=== PATIENT | female | born 1950 | race Caucasian/White ===

== ENCOUNTER → 2016-06-07 | Outpatient (CLI) | payer OTHER ==
[~2016-06-07] MED LIST: AMB10 PO; ATOR10TA88 PO; BENZ1TAB2 PO; BENZ2TAB6 PO; CHOL4POW12 PO; CHOLPOW PO; CLON0.5T3 PO; DPRSCR15 TOP; ERGO1CAP35 PO; ERGO500037 PO; GEMF600T3 PO; IPRA1AER2 INH; LITH1TAB PO; LTHSR/300 PO; MELA3TAB PO; MULT-614 PO; OMEG10007 PO; OMEP40CA41 PO; PRLSR20 PO; PROM25TA9 PO; RSP3 PO; SERT1TAB68 PO; SERT1TAB71 PO; SNG10 PO; THIO10CA PO; THIO2CAP2 PO; THIO5CAP2 PO; TRAM-10 PO; VITA400C15 PO; VITA400C3 PO; ZOLP5TAB6 PO; [UNRECOGNIZED DRUG - OTHER]
[2016-06-07 09:50] LABS: BASO % 0.5 %; BASO ABS # 0.03 K/uL (0-0.2); COMPLETE YES; EOS % 2.9 %; HEMATOCRIT 29.8 % (37-47); IG% 0.2 %; LYMPH % 8.8 %; LYMPH ABS # 0.49 K/uL (1.2-3.4); MEAN CELL VOLUME 77.6 fL (80-100); MEAN CORPUSCULAR HEMOGLOBIN 24.5 pg (25-34); MEAN CORPUSCULAR HGB CONC 31.5 g/dl (32-36); MEAN PLATELET VOLUME 9.6 fL (7.4-10.4); MONO % 8.2 %; NEUT % 79.4 %; PLATELET COUNT 263 K/uL (130-400); RED BLOOD COUNT 3.84 M/uL (4.2-5.4)
[2016-06-07 10:02] LABS: BLOOD UREA NITROGEN 14 mg/dl (7-18); BUN/CREATININE RATIO 11.8 (10-20); CALCIUM 9.3 mg/dl (8.5-10.1); CARBON DIOXIDE 26 mmol/L (21-32); CHLORIDE 106 mmol/L (98-107); GLUCOSE 123 mg/dl (70-99); POTASSIUM 4.2 mmol/L (3.5-5.1); SODIUM 140 mmol/L (136-145)
[2016-06-07 10:06] LABS: FERRITIN 24.1 ng/ml (8.0-388.0); PHOSPHORUS 3.9 mg/dl (2.5-4.9); TOTAL IRON BINDING CAPACITY 373 mcg/dl (250-450)
[2016-06-07 11:23] LABS: URINE APPEARANCE CLEAR (CLEAR); URINE BILIRUBIN NEG (NEG); URINE COLOR YELLOW; URINE EPITHELIAL CELL AUTO 0-5 /lpf (0-5); URINE NITRITE NEG (NEG); URINE SPECIFIC GRAVITY 1.001 (1.000-1.030); UROBILINOGEN NEG (NEG); ZZUR CULT IF INDIC CLEAN CATCH NO
[2016-06-07 11:28] LABS: MANUAL MICROSCOPIC REQUIRED? NO; REVIEW REQ? NO
== END | disposition home or self-care (01) ==
LOC: C.LAB 08:25
PROVIDERS: ATTEND Internal Medicine Nephrology
DX: N18.3 Chronic kidney disease, stage 3 (moderate) (principal); D64.9 Anemia, unspecified

== ENCOUNTER → 2016-08-02 | Outpatient (CLI) | payer OTHER ==
[~2016-08-02] MED LIST changes: +ATOR10TA82 PO; -ATOR10TA88 PO; +CZR25 PO; -GEMF600T3 PO; +HYZ/10015 PO
[2016-08-02 10:22] LABS: ALT/SGPT 79 U/L (12-78); AST/SGOT 38 U/L (15-37); BLOOD UREA NITROGEN 18 mg/dl (7-18); BUN/CREATININE RATIO 17.9 (10-20); CALCIUM 10.5 mg/dl (8.5-10.1); CARBON DIOXIDE 28 mmol/L (21-32); CHLORIDE 111 mmol/L (98-107); CHOLESTEROL 116 mg/dl (0-200); CREATININE 0.99 mg/dl (0.60-1.20); GLUCOSE 136 mg/dl (70-99); POTASSIUM 4.3 mmol/L (3.5-5.1); SODIUM 145 mmol/L (136-145)
[2016-08-02 10:24] LABS: ALB/GLOB RATIO 0.7 (0.9-2); ALKALINE PHOSPHATASE 219 U/L (45-117); CHOLESTEROL/HDL RATIO 2.5; HDL CHOLESTEROL 46 mg/dl; LDL CHOLESTEROL CALCULATED 32 mg/dl; TRIGLYCERIDES 188 mg/dl (0-150); VERY LOW DENSITY LIPOPROT CALC 38 mg/dl
[2016-08-02 10:53] LABS: ESTIMATED AVERAGE GLUCOSE 108 mg/dl; HA1C FLAG Normal (Normal)
== END | disposition home or self-care (01) ==
LOC: C.LAB 08:07
PROVIDERS: ATTEND Nurse Practitioner Family
DX: Z79.899 Other long term (current) drug therapy (principal); E11.9 Type 2 diabetes mellitus without complications; E78.00 Pure hypercholesterolemia, unspecified

== ENCOUNTER → 2016-08-30 | Day surgery (SDC) | payer OTHER ==
[2016-08-20 13:21] VITALS: Ht 152.4 cm; Wt 58.2 kg
[~2016-08-30] VITALS: Ht 152.4 cm; Wt 58.2 kg
[~2016-08-30] MED LIST changes: -CHOLPOW PO; +LIDOCAINE HCL 2% 2 ML VIAL (20MG/ML) ONE; +ONDANSETRON INJ 2 MG/ML 2 ML VIAL ONE; +PROPOFOL IV EMULSION 10 MG/ML 20 ML VIAL IV ONE; +SODIUM CHLORIDE 0.9% 500ML 500 ML IV ONE; -[UNRECOGNIZED DRUG - OTHER]
[2016-08-30 10:10] VITALS: TEMP 37
--- NOTE | 2016-08-30 10:31 | Endo History and Physical ---
History & Physical Date of Service: August 30, 2016. Chief Complaint: Hx polyps Referring Physician: Santos Galeano, History of Present Illness 66 yo CF who presents for screening colonoscopy. Past Medical History Diabetes, Arthritis, Reflux, COPD, Thyroid Disease Past Surgical History Hx Cardiac Surgery: No Hx Internal Defibrillator: No Hx Pacemaker: No Hx Abdominal Surgery: No Hx of Implantable Prosthesis: No Hx Post-Op Nausea and Vomiting: No Hx Cancer Surgery: No Hx Thoracic Surgery: No Hx Orthopedic: No Hx Urinary Tract Surgery: No Family History Colon CA Social History Smoking Status: Former Smoker Hx Substance Use: Yes (SEE MED REC) Hx Alcohol Use: No Allergies Coded Allergies: Aspirin (Verified Allergy, Unknown, UNKNOWN REACTION, 08/20/16) Clozapine (Verified Allergy, Unknown, TOXIC REACTION, 08/20/16) Codeine (Verified Allergy, Unknown, UNKNOWN REACTION, 08/20/16) Ibuprofen (Verified Allergy, Unknown, UNKNOWN REACTION, 08/20/16) Lurasidone (Verified Allergy, Unknown, TOXIC REACTION, 08/20/16) Penicillins (Verified Allergy, Unknown, UNKNOWN REACTION, 08/20/16) AMOXIL Sulfa Antibiotics (Verified Allergy, Unknown, UNKNOWN REACTION, 08/20/16) Current Medications Reported Home Medications Medications Dose Route/Sig Max Daily Dose Days Date Category Dose Instructions Prilosec (Omeprazole) 20 Mg Capcr 40 Mg PO BID 08/20/16 Reported Combivent Respimat (Ipratropium-Albuterol) 1 Aer Aer 1 Puffs INH QID PRN 08/20/16 Reported Questran (Cholestyramine) 4 Gm/Dose Pow 1 Dose PO AFTERNOON 08/20/16 Reported Betamethasone Dipropionat (Betamethasone Dip) 45 Appln/15 Gm Cr 1 Appln TOP BID PRN 08/20/16 Reported Lipitor (Atorvastatin Calcium) 10 Mg Tab 1 Tab PO HS 06/15/16 Reported Zoloft (Sertraline Hcl) 100 Mg Tab 100 Mg PO QAM 02/11/15 Reported Zoloft (Sertraline Hcl) 50 Mg Tab 50 Mg PO QAM 02/11/15 Reported Thiothixene 2 Mg Cap 2 Mg PO HS 02/11/15 Reported Thiothixene 10 Mg Cap 20 Mg PO HS 02/11/15 Reported Centrum Silver Ultra [place] (Multiple Vitamins W/ Minerals) 1 Tab Tab 1 Tab PO QAM 02/11/15 Reported Klonopin (Clonazepam) 0.5 Mg Tab 0.75 Mg PO HS 06/10/14 Reported 1 1/2 TABLETS DAILY. Risperidone 3 Mg Tab 1.5 Mg PO HS 03/17/14 Reported Lithobid Ext Rel ([place] Carbonate) 450 Mg Tab 450 Mg PO QPM 09/14/13 Reported Melatonin 3 Mg Tab 3 Mg PO HS 02/09/13 Reported Ambien * (Zolpidem Tartrate) 10 Mg Tab 5 Mg PO HS 02/19/11 Reported Vitamin D Cap (Ergocalciferol) 50,000 Interunit Cap 1 Tab PO WK 02/03/10 Reported ON MONDAYS [place] Carbonate 300 Mg Cap 300 Mg PO QAM 06/20/09 Reported Cogentin (Benztropine Mesylate) 2 Mg Tab 2 Mg PO BID 06/20/09 Reported Vitamin E (cu-Ubhsk-Qwkdbzcnda Acetate) 400 Inter.unit Cap 400 Inter.unit PO BID 07/21/08 Reported [place]-3 (Fish Oil) 1 Ea Cap 1 Cap PO BID 07/21/08 Reported Ultram (Tramadol HCl) 50 Mg Tab 2 Tabs PO BID 07/21/08 Reported Singulair * (Montelukast Sodium) 10 Mg Tab 10 Mg PO QAM 07/21/08 Reported Vital Signs Weight (Kilograms): 58.18 Height (Feet): 5 Height (Inches): 0 Date Time Temp Pulse Resp B/P Pulse Ox O2 Delivery O2 Flow Rate FiO2 08/30/16 10:10 37 78 20 160/74 94 Room Air Physical Exam General Appearance: WD/WN, no apparent distress Respiratory/Chest: Auscultation: breath sounds normal Cardiovascular: Heart Auscultation: RRR Abdomen: Bowel Sounds: normal Inspection & Palpation: soft, non-distended, no tenderness, guarding & rebound Assessment and Plan Assessment: 66 yo CF who presents for screening colonoscopy. Plan: Proceed with colonoscopy.
--- NOTE | 2016-08-30 12:08 | Discharge Instructions ---
Endoscopy Patient Instructions Date / Procedure(s) Performed August 30, 2016. Colonoscopy Allergy Information Coded Allergies: Aspirin (Verified Allergy, Unknown, UNKNOWN REACTION, 08/20/16) Clozapine (Verified Allergy, Unknown, TOXIC REACTION, 08/20/16) Codeine (Verified Allergy, Unknown, UNKNOWN REACTION, 08/20/16) Ibuprofen (Verified Allergy, Unknown, UNKNOWN REACTION, 08/20/16) Lurasidone (Verified Allergy, Unknown, TOXIC REACTION, 08/20/16) Penicillins (Verified Allergy, Unknown, UNKNOWN REACTION, 08/20/16) AMOXIL Sulfa Antibiotics (Verified Allergy, Unknown, UNKNOWN REACTION, 08/20/16) Discharge Date / Findings August 30, 2016. Colon polyps Internal hemorrhoids Medication Instructions OK to resume all medications today as prescribed Reported Home Medications Medications Dose Route/Sig Max Daily Dose Days Date Category Dose Instructions Prilosec (Omeprazole) 20 Mg Capcr 40 Mg PO BID 08/20/16 Reported Combivent Respimat (Ipratropium-Albuterol) 1 Aer Aer 1 Puffs INH QID PRN 08/20/16 Reported Questran (Cholestyramine) 4 Gm/Dose Pow 1 Dose PO AFTERNOON 08/20/16 Reported Betamethasone Dipropionat (Betamethasone Dip) 45 Appln/15 Gm Cr 1 Appln TOP BID PRN 08/20/16 Reported Lipitor (Atorvastatin Calcium) 10 Mg Tab 1 Tab PO HS 06/15/16 Reported Zoloft (Sertraline Hcl) 100 Mg Tab 100 Mg PO QAM 02/11/15 Reported Zoloft (Sertraline Hcl) 50 Mg Tab 50 Mg PO QAM 02/11/15 Reported Thiothixene 2 Mg Cap 2 Mg PO HS 02/11/15 Reported Thiothixene 10 Mg Cap 20 Mg PO HS 02/11/15 Reported Centrum Silver Ultra [place] (Multiple Vitamins W/ Minerals) 1 Tab Tab 1 Tab PO QAM 02/11/15 Reported Klonopin (Clonazepam) 0.5 Mg Tab 0.75 Mg PO HS 06/10/14 Reported 1 1/2 TABLETS DAILY. Risperidone 3 Mg Tab 1.5 Mg PO HS 03/17/14 Reported Lithobid Ext Rel ([place] Carbonate) 450 Mg Tab 450 Mg PO QPM 09/14/13 Reported Melatonin 3 Mg Tab 3 Mg PO HS 10/11/13 Reported Ambien * (Zolpidem Tartrate) 10 Mg Tab 5 Mg PO HS 02/19/11 Reported Vitamin D Cap (Ergocalciferol) 50,000 Interunit Cap 1 Tab PO WK 02/03/10 Reported ON MONDAYS [place] Carbonate 300 Mg Cap 300 Mg PO QAM 06/20/09 Reported Cogentin (Benztropine Mesylate) 2 Mg Tab 2 Mg PO BID 06/20/09 Reported Vitamin E (xc-Atutk-Xutabzyfbe Acetate) 400 Inter.unit Cap 400 Inter.unit PO BID 07/21/08 Reported [place]-3 (Fish Oil) 1 Ea Cap 1 Cap PO BID 07/21/08 Reported Ultram (Tramadol HCl) 50 Mg Tab 2 Tabs PO BID 07/21/08 Reported Singulair * (Montelukast Sodium) 10 Mg Tab 10 Mg PO QAM 07/21/08 Reported Provider Instructions Activity Restrictions - No exercising or heavy lifting for 24 hours. - Do not drink alcohol the day of the procedure. - Do not drive a car or operate machinery until the day after the procedure. - Do not make any important decisions or sign important papers in 24 hours after the procedure. Following Day: - Return to full activity which may include returning to work/school. Diet Start your diet with liquids and light foods (jello, soup, juice, toast). Then eat your usual diet if not nauseated. Treatment For Common After Affects For mild abdominal pain, bloating, or excessive gas: - Rest - Eat lightly - Lie on right side Follow-Up Information Follow-up with Santos Galeano, as scheduled Anesthesia Information What You Should Know You have had a procedure that required some medicine to reduce anxiety and discomfort. This treatment is called moderate sedation. After receiving the treatment, you may be sleepy, but you will be able to breathe on your own. The effects of the treatment may last for several hours. Follow these instructions along with Activity/Diet recommendations noted above: * Do NOT do anything where dizziness or clumsiness would be dangerous. * Rest quietly at home today, then you can be up and about tomorrow. * Have a responsible person stay with you the rest of today. * You may have had an I.V. today. If so, you may take the dressing off later today. Recommendations Call your doctor if: * Trouble breathing * Continuous vomiting for more than 24 hours * Temperature above 101 degrees * Severe abdominal pain or bloating * Pain not relieved by pain medicine ordered * There is increased drainage or redness from any incision * A large amount of rectal bleeding greater than 2-3 tablespoons. (If you had a polyp/s removed or have hemorrhoids, a small amount of blood - from the rectum is to be expected.) * You have any unanswered questions or concerns. IN THE EVENT OF A SERIOUS EMERGENCY, GO TO THE NEAREST EMERGENCY ROOM Your discharge instructions were prepared by provider Jese Reynolds. Patient Instructions Signature Page Brenda Medley Patient (or Guardian) Signature/Date: I have read and understand the instructions given to me by my caregivers. Caregiver/RN/Doctor Signature/Date: The above-named patient and/or guardian has received patient instructions on this date. + Original Patient Signature Page (only) stays with chart. Please make copy for patient.
[2016-08-30 12:39] VITALS: BP 135/75; PULSE 81; O2SAT 94
--- NOTE | 2016-08-30 12:43 | GI REPORT ---
Procedure Date: 08/30/2016 10:05 AM Procedure: Colonoscopy Indications: High risk colon cancer surveillance: Personal history of colonic polyps Medicines: Monitored Anesthesia Care Complications: No immediate complications. Estimated Blood Loss: Estimated blood loss: none. Procedure: Pre-Anesthesia Assessment: - Prior to the procedure, a History and Physical was performed, and patient medications and allergies were reviewed. The patient's tolerance of previous anesthesia was also reviewed. The risks and benefits of the procedure and the sedation options and risks were discussed with the patient. All questions were answered, and informed consent was obtained. Prior Anticoagulants: The patient has taken no previous anticoagulant or antiplatelet agents. ASA Grade Assessment: III - A patient with severe systemic disease. After reviewing the risks and benefits, the patient was deemed in satisfactory condition to undergo the procedure. After I obtained informed consent, the scope was passed under direct vision. Throughout the procedure, the patient's blood pressure, pulse, and oxygen saturations were monitored continuously. The scope was introduced through the anus and advanced to the terminal ileum. The colonoscopy was performed without difficulty. The patient tolerated the procedure well. The quality of the bowel preparation was good. The terminal ileum, ileocecal valve, appendiceal orifice, and rectum were photographed. Findings: Two pedunculated and sessile polyps were found in the ascending colon. The polyps were 5 to 8 mm in size. These polyps were removed with a hot snare. Resection and retrieval were complete. To prevent bleeding after the polypectomy, two hemostatic clips were successfully placed (MR conditional). There was no bleeding at the end of the procedure. Three sessile polyps were found in the rectum and in the transverse colon. The polyps were 5 to 9 mm in size. These polyps were removed with a hot snare. Resection and retrieval were complete. A 17 mm polyp was found in the transverse colon. The polyp was sessile. The polyp was removed with a saline injection-lift technique using a hot snare. Resection and retrieval were complete. To prevent bleeding after the polypectomy, five hemostatic clips were successfully placed (MR conditional). There was no bleeding at the end of the procedure. Non-bleeding internal hemorrhoids were found during retroflexion. The hemorrhoids were small. Impression: - Two 5 to 8 mm polyps in the ascending colon, removed with a hot snare. Resected and retrieved. Clips (MR conditional) were placed. - Three 5 to 9 mm polyps in the rectum and in the transverse colon, removed with a hot snare. Resected and retrieved. - One 17 mm polyp in the transverse colon, removed using injection-lift and a hot snare. Resected and retrieved. Clips (MR conditional) were placed. - Non-bleeding internal hemorrhoids. Recommendation: - Resume previous diet. - Continue present medications. - Repeat colonoscopy for surveillance based on pathology results. - Return to primary care physician as previously scheduled. Jese Reynolds, DO 08/30/2016 12:41:55 PM This report has been signed electronically. Note Initiated On: 08/30/2016 10:05 AM I attest to the content of the Intraoperative Record and orders documented therein, exceptions below
--- NOTE | 2016-08-30 12:47 | Anesthesiology Progress Note ---
Anesthesia Post Op Note Date & Time August 30, 2016 at 12:46 Vital Signs Pain Intensity: 0 Vital Signs Past 12 Hours Date Time Temp Pulse Resp B/P Pulse Ox O2 Delivery O2 Flow Rate FiO2 08/30/16 12:39 81 18 135/75 94 Room Air 08/30/16 12:24 86 18 134/64 93 Room Air 08/30/16 12:09 90 18 130/63 95 Room Air 08/30/16 10:10 37 78 20 160/74 94 Room Air Notes Mental Status: alert / awake / arousable, participated in evaluation Pt Amnestic to Procedure: Yes Nausea / Vomiting: adequately controlled Pain: adequately controlled Airway Patency, RR, SpO2: stable & adequate BP & HR: stable & adequate Hydration State: stable & adequate Anesthetic Complications: no major complications apparent
== END | disposition home or self-care (01) ==
LOC: C.GI 09:38
PROVIDERS: ATTEND Internal Medicine
DX: Z12.11 Encounter for screening for malignant neoplasm of colon (principal); C18.4 Malignant neoplasm of transverse colon; D12.2 Benign neoplasm of ascending colon; D12.3 Benign neoplasm of transverse colon; K64.8 Other hemorrhoids; D12.8 Benign neoplasm of rectum; E11.9 Type 2 diabetes mellitus without complications; K21.9 Gastro-esophageal reflux disease without esophagitis; J44.9 Chronic obstructive pulmonary disease, unspecified; E07.9 Disorder of thyroid, unspecified; Z87.891 Personal history of nicotine dependence; Z79.899 Other long term (current) drug therapy; Z86.010 Personal history of colon polyps

== ENCOUNTER 2016-09-03 15:00 | Emergency (ER) | payer OTHER ==
[~2016-09-03] VITALS: Ht 152.4 cm; Wt 63.1 kg
[~2016-09-03 15:00] MED LIST changes: -ATOR10TA82 PO; -BENZ2TAB6 PO; -CHOL4POW12 PO; -CLON0.5T3 PO; -CZR25 PO; -DPRSCR15 TOP; -ERGO500037 PO; -HYZ/10015 PO; -LIDOCAINE HCL 2% 2 ML VIAL (20MG/ML) ONE; -LITH1TAB PO; -LTHSR/300 PO; -MELA3TAB PO; -MULT-614 PO; -OMEG10007 PO; -OMEP40CA41 PO; -ONDANSETRON INJ 2 MG/ML 2 ML VIAL ONE; -PROM25TA9 PO; -PROPOFOL IV EMULSION 10 MG/ML 20 ML VIAL IV ONE; -RSP3 PO; -SERT1TAB68 PO; -SODIUM CHLORIDE 0.9% 500ML 500 ML IV ONE; -THIO10CA PO; -THIO2CAP2 PO; -THIO5CAP2 PO; -VITA400C3 PO; -ZOLP5TAB6 PO
[2016-09-03 15:09] VITALS: TEMP 37.1; Ht 152.4 cm; Wt 63.1 kg
[2016-09-03] MEDS ORDERED: SODIUM CHLORIDE 0.9% 1000ML 500 ML IV STA (16:12)
[2016-09-03] MEDS ORDERED: PROMETHAZINE HCL INJ 6.25 MG in SODIUM CHLORIDE 0.9% 50ML 50 ML IV STA (16:12)
[2016-09-03] MEDS ORDERED: SODIUM CHLORIDE 0.9% 1000ML 1,000 ML IV STA (16:12)
[2016-09-03] MEDS ORDERED: THIO5CAP2 PO (16:26)
[2016-09-03] MEDS ORDERED: BENZ2TAB6 PO (16:26)
[2016-09-03 16:38] LABS: BASO % 0.3 %; BASO ABS # 0.02 K/uL (0-0.2); COMPLETE YES; EOS % 3.4 %; HEMATOCRIT 30.3 % (37-47); IG% 0.5 %; LYMPH % 9.9 %; LYMPH ABS # 0.65 K/uL (1.2-3.4); MEAN CELL VOLUME 79.9 fL (80-100); MEAN CORPUSCULAR HEMOGLOBIN 26.9 pg (25-34); MEAN CORPUSCULAR HGB CONC 33.7 g/dl (32-36); MEAN PLATELET VOLUME 9.3 fL (7.4-10.4); MONO % 10.7 %; NEUT % 75.2 %; PLATELET COUNT 222 K/uL (130-400); RED BLOOD COUNT 3.79 M/uL (4.2-5.4); WHITE BLOOD COUNT 6.55 K/uL (4.8-10.8)
--- NOTE | 2016-09-03 16:48 | DIAGNOSTIC IMAGING REPORT ---
CHEST ONE VIEW PORTABLE CLINICAL HISTORY: Pain, radiating to the abdomen. COMPARISON STUDY: 02/06/2016 FINDINGS: The cardiac and mediastinal contours are normal. There is no evidence of focal pulmonary consolidation. There is no evidence of failure. No pleural effusions are visualized.[ No free air is visualized. Presumed endoscopic clips are visualized at the level of the splenic flexure. IMPRESSION: No active disease in the chest. Electronically signed by: Akbar Weiss M.D. 09/03/2016 4:47 PM Dictated Date/Time: 09/03/2016 4:46 PM
[2016-09-03 16:59] LABS: ALT/SGPT 36 U/L (12-78); AST/SGOT 20 U/L (15-37); BLOOD UREA NITROGEN 16 mg/dl (7-18); BUN/CREATININE RATIO 16.2 (10-20); CALCIUM 8.8 mg/dl (8.5-10.1); CARBON DIOXIDE 28 mmol/L (21-32); CHLORIDE 101 mmol/L (98-107); CREATININE 0.96 mg/dl (0.60-1.20); GLUCOSE 81 mg/dl (70-99); POTASSIUM 3.9 mmol/L (3.5-5.1); SODIUM 135 mmol/L (136-145)
[2016-09-03 17:04] LABS: ALKALINE PHOSPHATASE 172 U/L (45-117)
[2016-09-03 17:45] LABS: URINE APPEARANCE CLEAR (CLEAR); URINE BILIRUBIN NEG (NEG); URINE COLOR YELLOW; URINE NITRITE NEG (NEG); URINE SPECIFIC GRAVITY 1.002 (1.000-1.030); UROBILINOGEN NEG (NEG); ZZUR CULT IF INDIC CLEAN CATCH NO
[2016-09-03 17:47] LABS: MANUAL MICROSCOPIC REQUIRED? NO; REVIEW REQ? NO
--- NOTE | 2016-09-03 17:51 | DIAGNOSTIC IMAGING REPORT ---
CT SCAN OF THE ABDOMEN AND PELVIS WITHOUT CONTRAST CLINICAL HISTORY: Vomiting and diarrhea COMPARISON STUDY: 07/21/2008 TECHNIQUE: CT scan of the abdomen and pelvis was performed from the lung bases to the proximal femurs. Images are reviewed in the axial, sagittal, and coronal planes. IV contrast was not administered for this examination. CT DOSE: 331.11 mGy.cm FINDINGS: Lower chest: The heart is enlarged. There is respiratory motion artifact. There are no significant pleural effusions. Liver: The liver is mildly enlarged measuring 20 cm. No masses are visualized on this noncontrast study. Gallbladder: Unremarkable. Spleen: The spleen is borderline enlarged measuring 12 cm in length. Pancreas: Unremarkable. Adrenal glands: There is mild bilateral adrenal gland thickening Kidneys: No renal, ureteral, or bladder calculi are visualized. There is a 2 cm right renal cyst. There are vascular calcifications present. Bowel: There are no transition zones indicate bowel obstruction. There is no acute diverticulitis. There are no findings to indicate acute appendicitis on this study performed without the benefit of intravenous or oral contrast. There are presumed endoscopic clips within the right colon Peritoneum: There is no intraperitoneal free air or abdominal ascites. There is a small nonspecific focus of mesenteric edema within the left central abdomen area Vasculature: The abdominal aorta is normal in course and caliber. Adenopathy: None. Pelvic viscera: The bladder, and pelvic viscera are unremarkable. Skeletal structures: No destructive osseous lesions are seen. IMPRESSION: 1. Examination compromised due to patient motion artifact. 2. Mild hepatosplenomegaly 3. No renal, ureteral, or bladder calculi identified 4. No evidence of bowel obstruction. No evidence of free air 5. Small focus of nonspecific mesenteric edema within the left central abdomen. 6. No evidence of acute diverticulitis. No evidence of acute appendicitis. Electronically signed by: Akbar Weiss M.D. 09/03/2016 5:50 PM Dictated Date/Time: 09/03/2016 5:42 PM
[2016-09-03] MEDS ORDERED: PROM25TA9 PO (18:49)
[2016-09-03 19:26] VITALS: BP 145/70; PULSE 88; O2SAT 97
--- NOTE | 2016-09-03 20:49 | EMERGENCY ROOM VISIT NOTE ---
History Report prepared by Bradford: Era Mckeon Under the Supervision of: Dr. Matias Alejandre M.D. First contact with patient: 16:05 Chief Complaint: VOMITING Stated Complaint: SOB, DRY HEAVES Nursing Triage Summary: Pt c/o vomiting once a week x 4 weeks. Pt c/o diarrhea "pretty much my whole life". Colonoscopy Tuesday. History of Present Illness The patient is a 66 year old female who presents to the Emergency Room with complaints of persistent vomiting for the past 1 month. She has been having dry heaves and several episodes of vomiting. Her doctor is concerned that she is dehydrated and thus she was sent to the ED. She reports SOB as well. She reports some minor abdominal pain, diarrhea, and fever. Source of History: patient Onset: 1 month Position: other (global) Quality: other (vomiting) Timing: other (persistent) Associated Symptoms: + SOB, + abdominal pain, + diarrhea, + fevers Review of Systems See HPI for pertinent positives & negatives. A total of 10 systems reviewed and were otherwise negative. Past Medical & Surgical Medical Problems: (1) Bipolar I disorder (2) Diabetes mellitus type 2 (3) Gastroesophageal reflux disease (4) Heart disease Family History FH: heart disease Social History Smoking Status: Former Smoker Alcohol Use: none Drug Use: none Marital Status: in relationship Housing Status: lives with family Occupation Status: retired Current/Historical Medications Scheduled Atorvastatin (Lipitor), 1 TAB PO HS Benztropine Mesylate (Benztropine Mesylate), 2 MG PO BID Cholestyramine (Questran), 1 DOSE PO AFTERNOON Clonazepam (Klonopin), 0.75 MG PO HS Ergocalciferol (Vitamin D 65759 Unit), 1 CAP PO WK Fish Oil (Williams-3), 1 CAP PO BID Osseo Carbonate (Osseo Carbonate), 300 MG PO QAM Osseo Carbonate Er (Lithobid Ext Rel), 450 MG PO QPM Melatonin (Melatonin), 3 MG PO HS Montelukast Sod (Montelukast Sodium), 10 MG PO QAM Multiple Vitamins W/ Minerals (Centrum Silver Ultra Wome), 1 TAB PO QAM Omeprazole (Prilosec), 40 MG PO BID Risperidone (Risperidone), 4.5 MG PO HS Sertraline Hcl (Zoloft), 50 MG PO QAM Sertraline Hcl (Zoloft), 150 MG PO QAM Thiothixene (Thiothixene), 20 MG PO HS Thiothixene (Thiothixene), 2 MG PO HS Tramadol (Ultram), 2 TABS PO Q8 Vitamin E (Vitamin E 400 Iu), 400 INTER.UNIT PO DAILY Scheduled PRN Betamethasone Dip (Betamethasone Dipropionat), 1 APPLN TOP BID PRN for PRN Promethazine Hcl (Phenergan), 25 MG PO Q6H PRN for Nausea Zolpidem Tartrate (Zolpidem Tartrate), 5 MG PO HS PRN for Sleep Allergies Coded Allergies: Aspirin (Verified Allergy, Unknown, UNKNOWN REACTION, 08/20/16) Clozapine (Verified Allergy, Unknown, TOXIC REACTION, 08/20/16) Codeine (Verified Allergy, Unknown, UNKNOWN REACTION, 08/20/16) Ibuprofen (Verified Allergy, Unknown, UNKNOWN REACTION, 08/20/16) Lurasidone (Verified Allergy, Unknown, TOXIC REACTION, 08/20/16) Penicillins (Verified Allergy, Unknown, UNKNOWN REACTION, 08/20/16) AMOXIL Sulfa Antibiotics (Verified Allergy, Unknown, UNKNOWN REACTION, 08/20/16) Physical Exam Vital Signs Date Time Temp Pulse Resp B/P Pulse Ox O2 Delivery O2 Flow Rate FiO2 09/03/16 19:26 88 20 145/70 97 09/03/16 17:10 65 20 155/68 95 Room Air 09/03/16 15:09 37.1 72 17 145/62 92 Room Air Physical Exam GENERAL: Patient is in no acute distress. HEENT: No acute trauma, normocephalic atraumatic, mucous membranes moist, no nasal congestion, no scleral icterus. NECK: No stridor, no adenopathy, no meningismus, trachea is midline. LUNGS: Clear to auscultation bilaterally, no wheeze, no rhonchi, breath sounds equal. HEART: Without murmurs gallops or rubs, regular rate and rhythm. ABDOMEN: Soft, nontender, bowel sounds positive, no hernias, no peritonitis. EXTREMITIES: No cyanosis or edema, full range of motion of all the joints without pain or difficulty, no signs for acute trauma. NEUROLOGIC: Moving all extremities, no focal motor deficits, awake and alert, mild MR noted. SKIN: No rash, no jaundice, no diaphoresis. Medical Decision & Procedures ER Provider Diagnostic Interpretation: X ray results and stated below per my interpretation and radiologist interpretation. Other radiology results and stated below per my review and radiologist interpretation: CHEST ONE VIEW PORTABLE CLINICAL HISTORY: Pain, radiating to the abdomen. COMPARISON STUDY: 02/06/2016 FINDINGS: The cardiac and mediastinal contours are normal. There is no evidence of focal pulmonary consolidation. There is no evidence of failure. No pleural effusions are visualized.[ No free air is visualized. Presumed endoscopic clips are visualized at the level of the splenic flexure. IMPRESSION: No active disease in the chest. Electronically signed by: Akbar Weiss M.D. 09/03/2016 4:47 PM Dictated Date/Time: 09/03/2016 4:[address] SCAN OF THE ABDOMEN AND PELVIS WITHOUT CONTRAST CLINICAL HISTORY: Vomiting and diarrhea COMPARISON STUDY: 07/21/2008 TECHNIQUE: CT scan of the abdomen and pelvis was performed from the lung bases to the proximal femurs. Images are reviewed in the axial, sagittal, and coronal planes. IV contrast was not administered for this examination. CT DOSE: 331.11 mGy.cm FINDINGS: Lower chest: The heart is enlarged. There is respiratory motion artifact. There are no significant pleural effusions. Liver: The liver is mildly enlarged measuring 20 cm. No masses are visualized on this noncontrast study. Gallbladder: Unremarkable. Spleen: The spleen is borderline enlarged measuring 12 cm in length. Pancreas: Unremarkable. Adrenal glands: There is mild bilateral adrenal gland thickening Kidneys: No renal, ureteral, or bladder calculi are visualized. There is a 2 cm right renal cyst. There are vascular calcifications present. Bowel: There are no transition zones indicate bowel obstruction. There is no acute diverticulitis. There are no findings to indicate acute appendicitis on this study performed without the benefit of intravenous or oral contrast. There are presumed endoscopic clips within the right colon Peritoneum: There is no intraperitoneal free air or abdominal ascites. There is a small nonspecific focus of mesenteric edema within the left central abdomen area Vasculature: The abdominal aorta is normal in course and caliber. Adenopathy: None. Pelvic viscera: The bladder, and pelvic viscera are unremarkable. Skeletal structures: No destructive osseous lesions are seen. IMPRESSION: 1. Examination compromised due to patient motion artifact. 2. Mild hepatosplenomegaly 3. No renal, ureteral, or bladder calculi identified 4. No evidence of bowel obstruction. No evidence of free air 5. Small focus of nonspecific mesenteric edema within the left central abdomen. 6. No evidence of acute diverticulitis. No evidence of acute appendicitis. Electronically signed by: Akbar Weiss M.D. 09/03/2016 5:50 PM Dictated Date/Time: 09/03/2016 5:42 PM Laboratory Results 09/03/16 16:28 Red Blood Count 3.79, Mean Corpuscular Volume 79.9, Mean Corpuscular Hemoglobin 26.9, Mean Corpuscular Hemoglobin Concent 33.7, Mean Platelet Volume 9.3, Neutrophils (%) (Auto) 75.2, Lymphocytes (%) (Auto) 9.9, Monocytes (%) (Auto) 10.7, Eosinophils (%) (Auto) 3.4, Basophils (%) (Auto) 0.3, Neutrophils # (Auto ) 4.93, Lymphocytes # (Auto) 0.65, Monocytes # (Auto) 0.70, Eosinophils # (Auto ) 0.22, Basophils # (Auto) 0.02 09/03/16 16:28 Test 09/03/16 16:28 09/03/16 17:30 White Blood Count 6.55 K/uL (4.8-10.8) Red Blood Count 3.79 M/uL (4.2-5.4) Hemoglobin 10.2 g/dL (12.0-16.0) Hematocrit 30.3 % (37-47) Mean Corpuscular Volume 79.9 fL (80-100) Mean Corpuscular Hemoglobin 26.9 pg (25-34) Mean Corpuscular Hemoglobin Concent 33.7 g/dl (32-36) Platelet Count 222 K/uL (130-400) Mean Platelet Volume 9.3 fL (7.4-10.4) Neutrophils (%) (Auto) 75.2 % Lymphocytes (%) (Auto) 9.9 % Monocytes (%) (Auto) 10.7 % Eosinophils (%) (Auto) 3.4 % Basophils (%) (Auto) 0.3 % Neutrophils # (Auto) 4.93 K/uL (1.4-6.5) Lymphocytes # (Auto) 0.65 K/uL (1.2-3.4) Monocytes # (Auto) 0.70 K/uL (0.11-0.59) Eosinophils # (Auto) 0.22 K/uL (0-0.5) Basophils # (Auto) 0.02 K/uL (0-0.2) RDW Standard Deviation 47.4 fL (36.4-46.3) RDW Coefficient of Variation 16.2 % (11.5-14.5) Immature Granulocyte % (Auto) 0.5 % Immature Granulocyte # (Auto) 0.03 K/uL (0.00-0.02) Anion Gap 6.0 mmol/L (3-11) Est Creatinine Clear Calc Drug Dose 49.1 ml/min Estimated GFR () 72.4 Estimated GFR (Non- 62.5 BUN/Creatinine Ratio 16.2 (10-20) Calcium Level 8.8 mg/dl (8.5-10.1) Total Bilirubin 0.2 mg/dl (0.2-1) Direct Bilirubin < 0.1 mg/dl (0-0.2) Aspartate Amino Transf (AST/SGOT) 20 U/L (15-37) Alanine Aminotransferase (ALT/SGPT) 36 U/L (12-78) Alkaline Phosphatase 172 U/L (45-117) Troponin I < 0.015 ng/ml (0-0.045) Total Protein 6.8 gm/dl (6.4-8.2) Albumin 3.0 gm/dl (3.4-5.0) Lipase 163 U/L (73-393) Osseo Level 0.8 mMOL/L (0.6-1.2) Urine Color YELLOW Urine Appearance CLEAR (CLEAR) Urine pH 7.0 (4.5-7.5) Urine Specific Albright 1.002 (1.000-1.030) Urine Protein NEG (NEG) Urine Glucose (UA) NEG (NEG) Urine Ketones NEG (NEG) Urine Occult Blood NEG (NEG) Urine Nitrite NEG (NEG) Urine Bilirubin NEG (NEG) Urine Urobilinogen NEG (NEG) Urine Leukocyte Esterase NEG (NEG) Laboratory results reviewed by me. Medications Administered Medications (Trade) Dose Ordered Sig/Kelsey Route Start Time Stop Time Status Last Admin Dose Admin Sodium Chloride 500 ml @ 999 mls/hr Q31M STAT IV 09/03/16 16:12 09/03/16 16:42 DC 09/03/16 16:53 999 MLS/HR Sodium Chloride 1,000 ml @ 200 mls/hr Q5H STAT IV 09/03/16 16:12 09/03/16 19:34 DC 09/03/16 16:54 200 MLS/HR Promethazine HCl/ Sodium Chloride (Phenergan Inj/ Nss 50ml) 50.25 ml @ 204 mls/hr NOW STAT IV 09/03/16 16:12 09/03/16 16:26 DC 09/03/16 17:28 204 MLS/HR ECG Indication: SOB/dyspnea Rate (beats per minute): 70 Rhythm: normal sinus Findings: no acute ischemic change, no ectopy ED Course 1609: The patient was evaluated in room C9. A complete history and physical exam was performed. 1612: Promethazine HCl 6.25 mg/Sodium Chloride 50.25 ml @ 204 mls/hr IV, NSS 1000 ml @ 200 mls/hr IV, NSS 500 ml @ 999 mls/hr IV. 1838: I reevaluated the patient. She is resting comfortably. I discussed results and discharge instructions: she verbalized understanding and agreement. The patient is ready for discharge. Medical Decision Differential diagnosis: dehydration, electrolyte imbalance, bowel obstruction, gastroparesis, liver or renal failure, UTI, medication reaction. There is no leukocytosis. A mild anemia is present but nothing of significant concern. No significant electrolyte abnormality, kidney failure, hepatitis or pancreatitis. Abdominal and pelvis CT does not show bowel obstruction or findings for an acute surgical process. Chest x-ray shows no free air or pneumonia. Urinalysis does not show evidence for infection. Osseo level is not toxic. EKG shows a sinus rhythm, no acute ischemia. Cardiac enzyme testing times one consistent with acute cardiac injury. The patient received IV saline and IV Phenergan, she feels improved, she is doing well. She is being discharged with Phenergan for nausea, she can follow with her doctors as an outpatient. The cause for her ongoing issues is not clear, she is stable for discharge. Impression Primary Impression: Vomiting Scribe Attestation The scribe's documentation has been prepared under my direction and personally reviewed by me in its entirety. I confirm that the note above accurately reflects all work, treatment, procedures, and medical decision making performed by me. Departure Information Dispostion Home / Self-Care Prescriptions Promethazine Hcl (Phenergan) 25 Mg Tab 25 MG PO Q6H Y for Nausea, #15 TAB Prov: Matias Alejandre M.D. 09/03/16 Referrals No Doctor, Assigned (PCP) Santos Galeano III, RENETTA Forms HOME CARE DOCUMENTATION FORM, IMPORTANT VISIT INFORMATION Patient Instructions My [facility] Additional Instructions use phenergan 1 tab every 6 hours for nausea see michell costa for a recheck this week return if worsening testing today was all ok
[2017-01-14] MEDS ORDERED: OMEG10007 PO (01:35)
[2017-01-14] MEDS ORDERED: RSP3 PO (09:56)
[2017-01-14] MEDS ORDERED: MULT-614 PO (12:43)
[2017-01-14] MEDS ORDERED: THIO10CA PO (12:43)
[2017-01-14] MEDS ORDERED: SERT1TAB68 PO (12:43)
[2017-01-14] MEDS ORDERED: THIO2CAP2 PO (12:43)
[2017-01-14] MEDS ORDERED: DPRSCR15 TOP (13:13)
[2017-01-14] MEDS ORDERED: CHOL4POW12 PO (13:13)
[2017-01-14] MEDS ORDERED: MELA3TAB PO (13:41)
[2017-01-14] MEDS ORDERED: LITH1TAB PO (13:58)
[2017-01-14] MEDS ORDERED: ATOR10TA82 PO (14:16)
[2017-02-24] MEDS ORDERED: THIO5CAP2 PO (12:38)
[2017-03-22] MEDS ORDERED: HYZ/10015 PO (13:17)
[2017-03-29] MEDS ORDERED: CZR25 PO (13:37)
== END 2016-09-03 19:05 | disposition home or self-care (01) ==
LOC: C.EDB 15:02 → C.EDC 19:05
DX: R11.10 Vomiting, unspecified (principal); E11.9 Type 2 diabetes mellitus without complications; K21.9 Gastro-esophageal reflux disease without esophagitis; I51.9 Heart disease, unspecified; F31.9 Bipolar disorder, unspecified; Z87.891 Personal history of nicotine dependence; Z79.899 Other long term (current) drug therapy; Z82.49 Family history of ischemic heart disease and other diseases of the circulatory system; Z88.0 Allergy status to penicillin; Z88.2 Allergy status to sulfonamides; Z88.5 Allergy status to narcotic agent; Z88.6 Allergy status to analgesic agent; Z88.8 Allergy status to other drugs, medicaments and biological substances

== ENCOUNTER → 2016-09-06 | Outpatient (CLI) | payer OTHER ==
[~2016-09-06] MED LIST changes: -AMB10 PO; +ATOR10TA82 PO; -BENZ1TAB2 PO; +BENZ2TAB6 PO; +CHOL4POW12 PO; +CLON0.5T3 PO; +CZR25 PO; +DPRSCR15 TOP; -ERGO1CAP35 PO; +ERGO500037 PO; +HYZ/10015 PO; +LITH1TAB PO; +LTHSR/300 PO; +MELA3TAB PO; +MULT-614 PO; +OMEG10007 PO; +OMEP40CA41 PO; +PROM25TA9 PO; +RSP3 PO; +SERT1TAB68 PO; +THIO10CA PO; +THIO2CAP2 PO; +THIO5CAP2 PO; -VITA400C15 PO; +VITA400C3 PO; +ZOLP5TAB6 PO
[2016-09-06 12:24] LABS: URINE APPEARANCE CLEAR (CLEAR); URINE BILIRUBIN NEG (NEG); URINE COLOR YELLOW; URINE NITRITE NEG (NEG); URINE PH 6.5 (4.5-7.5); URINE SPECIFIC GRAVITY 1.004 (1.000-1.030); UROBILINOGEN NEG (NEG); ZZUR CULT IF INDIC CLEAN CATCH NO
[2016-09-06 12:26] LABS: MANUAL MICROSCOPIC REQUIRED? NO; REVIEW REQ? NO
[2016-09-06 13:33] LABS: CREATININE, URINE < 13.0 mg/dl
[2016-09-06 13:35] LABS: BLOOD UREA NITROGEN 18 mg/dl (7-18); BUN/CREATININE RATIO 18.2 (10-20); CARBON DIOXIDE 28 mmol/L (21-32); CHLORIDE 105 mmol/L (98-107); CREATININE 0.97 mg/dl (0.60-1.20); GLUCOSE 61 mg/dl (70-99); SODIUM 140 mmol/L (136-145)
[2016-09-06 13:46] LABS: PHOSPHORUS 3.7 mg/dl (2.5-4.9); THYROID STIMULATING HORMONE < 0.005 uIu/ml (0.300-4.500)
[2016-09-08 18:34] LABS: MICROSOMAL AB <1 IU/ML (<9); TSI <89 % baseline (<140)
== END | disposition home or self-care (01) ==
LOC: C.LAB 11:22
PROVIDERS: ATTEND Internal Medicine Nephrology
DX: Z11.59 Encounter for screening for other viral diseases (principal); R94.6 Abnormal results of thyroid function studies; N18.3 Chronic kidney disease, stage 3 (moderate); E21.3 Hyperparathyroidism, unspecified

== ENCOUNTER → 2016-09-20 | Outpatient (CLI) | payer OTHER ==
--- NOTE | 2016-09-20 14:26 | DIAGNOSTIC IMAGING REPORT ---
THYROID ULTRASOUND CLINICAL HISTORY: High serum thyroglobulin. COMPARISON STUDY: Thyroid ultrasound November 28, 2009. TECHNIQUE: Sonography of the thyroid gland was performed. FINDINGS: The right thyroid lobe measures 3.8 x 2.8 x 2 cm and the left lobe measures 4.2 x 2.5 x 1.7 cm. The gland is mildly enlarged and heterogeneous. There are several small thyroid nodules, including a peripherally calcified 6 mm left lobe nodule. No significant change is noted since prior exam. No suspicious thyroid nodules are identified by sonography. IMPRESSION: 1. Mildly enlarged, heterogeneous thyroid gland. 2. Several subcentimeter thyroid nodules, none of which have suspicious imaging characteristics. Electronically signed by: Armand Roland M.D. 09/20/2016 2:25 PM Dictated Date/Time: 09/20/2016 2:23 PM
== END | disposition home or self-care (01) ==
LOC: C.ULTR 13:14
PROVIDERS: ATTEND Nurse Practitioner Family
DX: R79.89 Other specified abnormal findings of blood chemistry (principal); E04.1 Nontoxic single thyroid nodule

== ENCOUNTER → 2016-10-26 | Outpatient (CLI) | payer OTHER ==
[~2016-10-26] MED LIST changes: -ATOR10TA82 PO; +ATOR10TA88 PO; -CZR25 PO; -HYZ/10015 PO; -IPRA1AER2 INH; -OMEP40CA41 PO; -THIO5CAP2 PO
[2016-10-26 17:13] LABS: THYROID STIMULATING HORMONE 4.59 uIu/ml (0.300-4.500)
== END | disposition home or self-care (01) ==
LOC: C.LAB1850 15:49
PROVIDERS: ATTEND Internal Medicine Endocrinology, Diabetes & Metabolism
DX: E05.90 Thyrotoxicosis, unspecified without thyrotoxic crisis or storm (principal)

== ENCOUNTER → 2016-12-09 | Outpatient (CLI) | payer OTHER ==
[~2016-12-09] MED LIST changes: +IPRA1AER2 INH; +OMEP40CA41 PO
[2016-12-09 12:16] LABS: BASO % 0.3 %; BASO ABS # 0.02 K/uL (0-0.2); COMPLETE YES; EOS % 2.5 %; HEMATOCRIT 34.8 % (37-47); IG% 0.4 %; LYMPH % 8.6 %; LYMPH ABS # 0.63 K/uL (1.2-3.4); MEAN CELL VOLUME 89.7 fL (80-100); MEAN CORPUSCULAR HEMOGLOBIN 29.1 pg (25-34); MEAN CORPUSCULAR HGB CONC 32.5 g/dl (32-36); MEAN PLATELET VOLUME 9.4 fL (7.4-10.4); MONO % 6.4 %; NEUT % 81.8 %; PLATELET COUNT 259 K/uL (130-400); RED BLOOD COUNT 3.88 M/uL (4.2-5.4); WHITE BLOOD COUNT 7.33 K/uL (4.8-10.8)
[2016-12-09 12:32] LABS: BLOOD UREA NITROGEN 17 mg/dl (7-18); BUN/CREATININE RATIO 13.2 (10-20); CALCIUM 9.8 mg/dl (8.5-10.1); CARBON DIOXIDE 27 mmol/L (21-32); CHLORIDE 104 mmol/L (98-107); GLUCOSE 96 mg/dl (70-99); MAGNESIUM 2.5 mg/dl (1.8-2.4); POTASSIUM 4.3 mmol/L (3.5-5.1); SODIUM 137 mmol/L (136-145)
[2016-12-09 12:49] LABS: FERRITIN 146.6 ng/ml (8.0-388.0); TOTAL IRON BINDING CAPACITY 348 mcg/dl (250-450)
== END | disposition home or self-care (01) ==
LOC: C.LAB 10:47
PROVIDERS: ATTEND Internal Medicine Nephrology
DX: Z79.899 Other long term (current) drug therapy (principal); E05.90 Thyrotoxicosis, unspecified without thyrotoxic crisis or storm; N18.3 Chronic kidney disease, stage 3 (moderate); E55.9 Vitamin D deficiency, unspecified; D64.9 Anemia, unspecified

== ENCOUNTER 2017-01-14 14:44 | Emergency (ER) | payer OTHER ==
[~2017-01-14] VITALS: Ht 157.5 cm; Wt 69.4 kg
[~2017-01-14 14:44] MED LIST changes: -CLON0.5T3 PO; -ERGO500037 PO; -IPRA1AER2 INH; -LTHSR/300 PO; -OMEP40CA41 PO; -SNG10 PO; -VITA400C3 PO; -ZOLP5TAB6 PO
[2017-01-14 14:53] VITALS: TEMP 37; Ht 157.5 cm; Wt 69.4 kg
[2017-01-14] MEDS ORDERED: SODIUM CHLORIDE 0.9% 1000ML 1,000 ML IV STA (15:29)
[2017-01-14 15:56] LABS: INR 0.9 (0.9-1.1); PROTHROMBIN TIME (PATIENT) 9.8 SECONDS (9.0-12.0)
--- NOTE | 2017-01-14 15:59 | DIAGNOSTIC IMAGING REPORT ---
CHEST ONE VIEW PORTABLE CLINICAL HISTORY: Difficult chest pain COMPARISON STUDY: 09/03/2016 FINDINGS: The cardiac and mediastinal contours are normal. There is no evidence of focal pulmonary consolidation. There is no evidence of failure. No pleural effusions are visualized.[ IMPRESSION: No active disease in the chest. Electronically signed by: Akbar Weiss M.D. 01/14/2017 3:58 PM Dictated Date/Time: 01/14/2017 3:58 PM
--- NOTE | 2017-01-14 16:10 | EMERGENCY ROOM VISIT NOTE ---
History Report prepared by Bradford: Neftaly Brush Under the Supervision of: Dr. Gerry Deleon M.D. First contact with patient: 15:03 Chief Complaint: DIZZY Stated Complaint: DIZZINESS AND DEPRESSION Nursing Triage Summary: pt arrives with spouse ambulated to triage without difficulty spouse reports dizziness X 3 weeks , pt to psych visit today and was becoming depressed and states I want at MD to see me for this dizziness . pt denies feeling dizzy at this time, denies sob , cp or ALFONSO History of Present Illness The patient is a 66 year old female who presents to the Emergency Room with complaints of constant dizziness beginning three weeks ago. The patient's fiance states that he called the doctor's office last weekend, and they decreased the patient's Cogentin and Prilosec. He reports that the patient's symptoms did not change. The fiance notes that he cannot tell if it is lightheadedness or vertigo. He states the patient fell two days ago, and he denies the patient hitting her head, LOC and focal deficit. The fiance reports that the patient has chronic headaches, slurred speech, hearing loss, nausea, and diarrhea. He notes that the patient has expressed depression and suicidal ideations. The fiance states the patient has neither attempted to overdose nor develop a suicidal plan. He reports the patient has an appointment with her psychiatrist Tuesday. The fiance denies chills, fevers, cough, shortness of breath, and chest pain. He notes the patient has a history of GERD, diabetes mellitus, and bipolar disorder. Source of History: patient Onset: 3 weeks ago Position: head Quality: other (dizziness) Timing: constant Associated Symptoms: + headache, + nausea, + diarrhea, No LOC, No fevers, No chills, No cough, No chest pain, No SOB Note: Associated symptoms: suicidal ideations Denies: focal deficit, suicidal plan Review of Systems See HPI for pertinent positives & negatives. A total of 10 systems reviewed and were otherwise negative. Past Medical & Surgical Medical Problems: (1) Bipolar I disorder (2) Diabetes mellitus type 2 (3) Gastroesophageal reflux disease (4) Heart disease Old medical records were reviewed. Nurse's notes were reviewed and I agree with. Family History FH: heart disease Social History Smoking Status: Former Smoker Alcohol Use: none Drug Use: none Marital Status: in relationship Housing Status: lives with family Occupation Status: retired Current/Historical Medications Scheduled Atorvastatin (Lipitor), 1 TAB PO HS Benztropine Mesylate (Benztropine Mesylate), 2 MG PO HS Benztropine Mesylate (Benztropine Mesylate), 1 MG PO QAM Cholestyramine (Questran), 1 DOSE PO AFTERNOON Clonazepam (Klonopin), 0.75 MG PO HS Ergocalciferol (Vitamin D 88727 Unit), 1 CAP PO WK Fish Oil ([place]-3), 1 CAP PO BID [place] Carbonate ([place] Carbonate), 300 MG PO QAM [place] Carbonate Er (Lithobid Ext Rel), 450 MG PO QPM Melatonin (Melatonin), 3 MG PO HS Montelukast Sod (Montelukast Sodium), 10 MG PO QAM Multiple Vitamins W/ Minerals (Centrum Silver Ultra [place]ome), 1 TAB PO QAM Omeprazole (Prilosec), 40 MG PO DAILY Risperidone (Risperidone), 4.5 MG PO HS Sertraline Hcl (Zoloft), 150 MG PO QAM Thiothixene (Thiothixene), 20 MG PO HS Thiothixene (Thiothixene), 2 MG PO DAILY Tramadol (Ultram), 2 TABS PO BID Vitamin E (Vitamin E 400 Iu), 400 INTER.UNIT PO DAILY Scheduled PRN Betamethasone Dip (Betamethasone Dipropionat), 1 APPLN TOP BID PRN for PRN Ipratropium-Albuterol (Combivent Respimat), 1 PUFF INH QID PRN for SS Zolpidem Tartrate (Zolpidem Tartrate), 5 MG PO HS PRN for Sleep Allergies Coded Allergies: Aspirin (Verified Allergy, Unknown, UNKNOWN REACTION, 08/20/16) Clozapine (Verified Allergy, Unknown, TOXIC REACTION, 08/20/16) Codeine (Verified Allergy, Unknown, UNKNOWN REACTION, 08/20/16) Ibuprofen (Verified Allergy, Unknown, UNKNOWN REACTION, 08/20/16) Lurasidone (Verified Allergy, Unknown, TOXIC REACTION, 08/20/16) Penicillins (Verified Allergy, Unknown, UNKNOWN REACTION, 08/20/16) AMOXIL Sulfa Antibiotics (Verified Allergy, Unknown, UNKNOWN REACTION, 08/20/16) Physical Exam Vital Signs Date Time Temp Pulse Resp B/P (MAP) Pulse Ox O2 Delivery O2 Flow Rate FiO2 01/14/17 19:17 68 18 180/88 97 Room Air 01/14/17 17:58 68 18 170/88 96 Room Air 01/14/17 17:33 68 18 203/95 95 Room Air 01/14/17 17:20 71 18 211/81 96 Room Air 01/14/17 16:28 75 18 179/92 96 Room Air 01/14/17 15:29 72 01/14/17 15:08 72 181/90 76 162/91 80 143/88 01/14/17 14:53 37.0 94 18 168/80 93 Room Air Physical Exam General: Well developed well nourished in no acute distress, breathing comfortably on room air. Normal speech. Hard of hearing, nonverbal baseline. HEENT: Normal cephalic atraumatic. Pupils are equal round and reactive to light. Extraocular movements are intact. Oropharynx is pink with moist mucous membranes. No swelling of the mouth lips or tongue. Neck: Supple with a midline trachea. No meningeal signs or stiffness, no JVD or bruits. No Stridor. Chest: Clear to auscultation bilaterally. No wheezes or rhonchi. No increased work of breathing. Heart: regular rate and rhythm. Abdomen: Soft nontender, nondistended without rebound guarding or rigidity. Extremities: No cyanosis clubbing or edema. No calf tenderness or assymetry Spine/Back. Non tender to palpation. No CVA tenderness Skin: Good turgor without rashes. Neurologic exam: Cranial nerves two through 12 are intact. Motor and sensation are intact and symmetrical throughout. Follows commands, mild tremor - baseline by report. Medical Decision & Procedures ER Provider Diagnostic Interpretation: Radiology results as stated below per my review and radiologist interpretation: CT HEAD WITHOUT CONTRAST (CT) CLINICAL HISTORY: dizziness COMPARISON STUDY: 02/09/2013 TECHNIQUE: Axial CT of the brain is performed from the vertex to the skull base. IV contrast was not administered for this examination. A dose lowering technique was utilized adhering to the principles of ALARA. CT DOSE: 537.48 mGy.cm FINDINGS: No intra or extra-axial mass lesions are visualized. There is no CT evidence of acute cortical infarction. There is no evidence of midline shift. There is no acute hemorrhage. No calvarial fractures are visualized. There are minor white matter hypodensities likely on a small vessel basis. There is no evidence of pathologic ventricular dilatation. There is no evidence of acute sinusitis IMPRESSION: No acute intracranial findings Electronically signed by: Akbar Weiss M.D. 01/14/2017 4:54 PM Dictated Date/Time: 01/14/2017 4:53 PM CHEST ONE VIEW PORTABLE CLINICAL HISTORY: Difficult chest pain COMPARISON STUDY: 09/03/2016 FINDINGS: The cardiac and mediastinal contours are normal. There is no evidence of focal pulmonary consolidation. There is no evidence of failure. No pleural effusions are visualized. IMPRESSION: No active disease in the chest. Electronically signed by: Akbar Weiss M.D. 01/14/2017 3:58 PM Dictated Date/Time: 01/14/2017 3:58 PM Laboratory Results 01/14/17 15:58 Red Blood Count 3.49, Mean Corpuscular Volume 92.0, Mean Corpuscular Hemoglobin 30.1, Mean Corpuscular Hemoglobin Concent 32.7, Mean Platelet Volume 9.4, Neutrophils (%) (Auto) 78.9, Lymphocytes (%) (Auto) 7.6, Monocytes (%) (Auto) 10.4, Eosinophils (%) (Auto) 2.4, Basophils (%) (Auto) 0.3, Neutrophils # (Auto ) 6.15, Lymphocytes # (Auto) 0.59, Monocytes # (Auto) 0.81, Eosinophils # (Auto ) 0.19, Basophils # (Auto) 0.02 01/14/17 15:30 Test 01/14/17 15:30 01/14/17 15:58 01/14/17 16:10 01/14/17 17:30 Prothrombin Time 9.8 SECONDS (9.0-12.0) Prothromb Time International Ratio 0.9 (0.9-1.1) Activated Partial Thromboplast Time 27.1 SECONDS (21.0-31.0) Partial Thromboplastin Ratio 1.0 Anion Gap 8.0 mmol/L (3-11) Est Creatinine Clear Calc Drug Dose 39.9 ml/min Estimated GFR () 50.2 Estimated GFR (Non- 43.3 BUN/Creatinine Ratio 13.3 (10-20) Calcium Level 9.1 mg/dl (8.5-10.1) Total Bilirubin 0.2 mg/dl (0.2-1) Aspartate Amino Transf (AST/SGOT) 19 U/L (15-37) Alanine Aminotransferase (ALT/SGPT) 31 U/L (12-78) Alkaline Phosphatase 148 U/L (45-117) Troponin I < 0.015 ng/ml (0-0.045) Total Protein 7.2 gm/dl (6.4-8.2) Albumin 3.3 gm/dl (3.4-5.0) Lipase 167 U/L (73-393) Thyroid Stimulating Hormone (TSH) 3.230 uIu/ml (0.300-4.500) Chemistry Specimen Hemolysis White Blood Count 7.79 K/uL (4.8-10.8) Red Blood Count 3.49 M/uL (4.2-5.4) Hemoglobin 10.5 g/dL (12.0-16.0) Hematocrit 32.1 % (37-47) Mean Corpuscular Volume 92.0 fL (80-100) Mean Corpuscular Hemoglobin 30.1 pg (25-34) Mean Corpuscular Hemoglobin Concent 32.7 g/dl (32-36) Platelet Count 244 K/uL (130-400) Mean Platelet Volume 9.4 fL (7.4-10.4) Neutrophils (%) (Auto) 78.9 % Lymphocytes (%) (Auto) 7.6 % Monocytes (%) (Auto) 10.4 % Eosinophils (%) (Auto) 2.4 % Basophils (%) (Auto) 0.3 % Neutrophils # (Auto) 6.15 K/uL (1.4-6.5) Lymphocytes # (Auto) 0.59 K/uL (1.2-3.4) Monocytes # (Auto) 0.81 K/uL (0.11-0.59) Eosinophils # (Auto) 0.19 K/uL (0-0.5) Basophils # (Auto) 0.02 K/uL (0-0.2) RDW Standard Deviation 50.6 fL (36.4-46.3) RDW Coefficient of Variation 15.2 % (11.5-14.5) Immature Granulocyte % (Auto) 0.4 % Immature Granulocyte # (Auto) 0.03 K/uL (0.00-0.02) Direct Bilirubin < 0.1 mg/dl (0-0.2) Ethyl Alcohol mg/dL < 3.0 mg/dl (0-3) Urine Opiates Screen NEG (NEG) Urine Methadone, Qualitative NEG (NEG) Urine Barbiturates NEG (NEG) Urine Phencyclidine (PCP) Level NEG (NEG) Ur Amphetamine/Methamphetamine NEG (NEG) MDMA (Ecstasy) Screen NEG (NEG) Urine Benzodiazepines Screen NEG (NEG) Urine Cocaine Metabolite NEG (NEG) Urine Marijuana (THC) NEG (NEG) [place] Level 0.9 mMOL/L (0.6-1.2) Laboratory studies as stated above per my review. Medications Administered Medications (Trade) Dose Ordered Sig/Kelsey Route Start Time Stop Time Status Last Admin Dose Admin Sodium Chloride 1,000 ml @ 999 mls/hr Q1H1M STAT IV 01/14/17 15:29 01/14/17 16:29 DC 01/14/17 15:29 999 MLS/HR ECG Indication: other (dizziness) Rate (beats per minute): 72 Rhythm: normal sinus Findings: no acute ischemic change, no ectopy, other (normal interval) Comparison ECG Date: 09/03/16 Change: no significant change ED Course 1502: Past medical records reviewed. The patient was evaluated in room A10 by the medical student under my supervision, and a complete history and physical examination were performed. 1529: Ordered Sodium Chloride 1000 ml @ 999 mls/hr IV 1533: Past medical records reviewed. The patient was evaluated in the room by me , and a complete history and physical examination were performed. 1649: I reevaluated the patient, and she is on her way to her CT scan. 1815: I reevaluated the patient and discussed her current exam findings and test results. She feels better and would like to go home. 1859: Upon reevaluation, the patient is resting comfortably. I discussed the results and treatment plan with her and her fiance. They verbalized agreement of the treatment plan. The patient was discharged home. Medical Decision Differentials include, but are not limited to; intracranial process, orthostatic hypotension, electrolyte metabolic abnormality, vertigo, dehydration , medication side-affect, TIA, CVA, sepsis. This patient comes in as described above. She's been feeling dizzy for several weeks. She is on multiple psychiatric medications and this certainly could be causing some of this. She looks well on exam and has a normal neurologic exam with exception of a mild tremor although this is apparently unchanged. IV access established, blood work was obtained EKG was obtained. There is nothing to suggest acute coronary syndrome or arrhythmia. She was reassessed frequently. She was hydrated with IV normal saline. She remained stable. She has nothing to suggest an acute cardiac event. She has not suggest acute neurologic event. CAT scan of her has unremarkable. She has nothing to suggest acute electrolyte or metabolic or acute toxicologic process. Her lithium level is nontoxic. She was also evaluated by our psychiatric case management team. They feel she can go home. Her fianc agrees with this as well and the patient has contracted for safety. She will be discharged home. She will be careful getting up and down and return if: Worsening of symptoms, fever or chills, any new problems or concerns.. Medication Reconcilliation Current Medication List: was personally reviewed by me Blood Pressure Screening Patient's blood pressure: Elevated blood pressure Blood pressure disposition: Referred to PCP Impression Primary Impression: Dizziness Additional Impression: Depression Scribe Attestation The scribe's documentation has been prepared under my direction and personally reviewed by me in its entirety. I confirm that the note above accurately reflects all work, treatment, procedures, and medical decision making performed by me. Departure Information Dispostion Home / Self-Care Referrals Santos Galeano III, CRNP (PCP) Forms HOME CARE DOCUMENTATION FORM, IMPORTANT VISIT INFORMATION Patient Instructions My [facility] Additional Instructions Rest. Drink plenty of fluids. Return if: Increasing pain, worsening of symptoms, chest pain, shortness of breath, fever or chills, thoughts of hurting yourself or others, any new problems or concerns. Follow-up with your doctor on Tuesday for recheck Problem Qualifiers
[2017-01-14] MEDS ORDERED: SNG10 PO (16:26)
[2017-01-14] MEDS ORDERED: ERGO500037 PO (16:26)
[2017-01-14] MEDS ORDERED: ZOLP5TAB6 PO (16:26)
[2017-01-14 16:27] LABS: ALKALINE PHOSPHATASE 148 U/L (45-117); ALT/SGPT 31 U/L (12-78); AST/SGOT 19 U/L (15-37); BLOOD UREA NITROGEN 17 mg/dl (7-18); BUN/CREATININE RATIO 13.3 (10-20); CALCIUM 9.1 mg/dl (8.5-10.1); CARBON DIOXIDE 25 mmol/L (21-32); CHLORIDE 106 mmol/L (98-107); GLUCOSE 105 mg/dl (70-99); SODIUM 139 mmol/L (136-145)
[2017-01-14 16:43] LABS: BENZODIAZEPINE, URINE NEG (NEG); COCAINE,URINE NEG (NEG); PHENCYCLIDINE, URINE NEG (NEG)
[2017-01-14] MEDS ORDERED: LTHSR/300 PO (16:46)
[2017-01-14 16:48] LABS: BASO % 0.3 %; BASO ABS # 0.02 K/uL (0-0.2); COMPLETE YES; EOS % 2.4 %; HEMATOCRIT 32.1 % (37-47); IG% 0.4 %; LYMPH % 7.6 %; LYMPH ABS # 0.59 K/uL (1.2-3.4); MEAN CORPUSCULAR HEMOGLOBIN 30.1 pg (25-34); MEAN CORPUSCULAR HGB CONC 32.7 g/dl (32-36); MEAN PLATELET VOLUME 9.4 fL (7.4-10.4); MONO % 10.4 %; NEUT % 78.9 %; PLATELET COUNT 244 K/uL (130-400); RED BLOOD COUNT 3.49 M/uL (4.2-5.4); WHITE BLOOD COUNT 7.79 K/uL (4.8-10.8)
[2017-01-14] MEDS ORDERED: OMEP40CA41 PO (16:55)
[2017-01-14] MEDS ORDERED: BENZ2TAB6 PO (16:55)
[2017-01-14] MEDS ORDERED: IPRA1AER2 INH (16:55)
--- NOTE | 2017-01-14 16:55 | DIAGNOSTIC IMAGING REPORT ---
CT HEAD WITHOUT CONTRAST (CT) CLINICAL HISTORY: dizziness COMPARISON STUDY: 02/09/2013 TECHNIQUE: Axial CT of the brain is performed from the vertex to the skull base. IV contrast was not administered for this examination. A dose lowering technique was utilized adhering to the principles of ALARA. CT DOSE: 537.48 mGy.cm FINDINGS: No intra or extra-axial mass lesions are visualized. There is no CT evidence of acute cortical infarction. There is no evidence of midline shift. There is no acute hemorrhage. No calvarial fractures are visualized. There are minor white matter hypodensities likely on a small vessel basis. There is no evidence of pathologic ventricular dilatation. There is no evidence of acute sinusitis IMPRESSION: No acute intracranial findings Electronically signed by: Akbar Weiss M.D. 01/14/2017 4:54 PM Dictated Date/Time: 01/14/2017 4:53 PM
[2017-01-14] MEDS ORDERED: VITA400C3 PO (17:07)
[2017-01-14 19:17] VITALS: BP 180/88; PULSE 68; O2SAT 97
[2017-01-14] MEDS ORDERED: CLON0.5T3 PO (23:12)
== END 2017-01-14 19:21 | disposition home or self-care (01) ==
LOC: C.EDB 14:45 → C.EDA 19:21
DX: R42 Dizziness and giddiness (principal); F32.9 Major depressive disorder, single episode, unspecified; E11.9 Type 2 diabetes mellitus without complications; K21.9 Gastro-esophageal reflux disease without esophagitis; I51.9 Heart disease, unspecified; F31.9 Bipolar disorder, unspecified; Z87.891 Personal history of nicotine dependence; Z79.899 Other long term (current) drug therapy; Z88.0 Allergy status to penicillin; Z88.2 Allergy status to sulfonamides; Z88.5 Allergy status to narcotic agent; Z88.6 Allergy status to analgesic agent; Z88.8 Allergy status to other drugs, medicaments and biological substances; Z82.49 Family history of ischemic heart disease and other diseases of the circulatory system

== ENCOUNTER → 2017-01-24 | Outpatient (CLI) | payer OTHER ==
[~2017-01-24] MED LIST changes: +CLON0.5T3 PO; +ERGO500037 PO; +IPRA1AER2 INH; +LTHSR/300 PO; +OMEP40CA41 PO; -PRLSR20 PO; -PROM25TA9 PO; -SERT1TAB71 PO; +SNG10 PO; +VITA400C3 PO; +ZOLP5TAB6 PO
[2017-01-24 09:54] LABS: BLOOD UREA NITROGEN 17 mg/dl (7-18); BUN/CREATININE RATIO 12.3 (10-20); CALCIUM 9.7 mg/dl (8.5-10.1); CARBON DIOXIDE 24 mmol/L (21-32); CHLORIDE 108 mmol/L (98-107); GLUCOSE 141 mg/dl (70-99); SODIUM 141 mmol/L (136-145)
[2017-01-24 10:07] LABS: THYROID STIMULATING HORMONE 3.73 uIu/ml (0.300-4.500)
== END | disposition home or self-care (01) ==
LOC: C.LAB 08:26
PROVIDERS: ATTEND Psychiatry & Neurology Psychiatry
DX: Z79.899 Other long term (current) drug therapy (principal); Z51.81 Encounter for therapeutic drug level monitoring

== ENCOUNTER → 2017-03-22 | Day surgery (SDC) | payer OTHER ==
[2017-02-24 12:55] VITALS: Ht 152.4 cm; Wt 66.4 kg
[~2017-03-22] VITALS: Ht 152.4 cm; Wt 66.4 kg
[~2017-03-22] MED LIST changes: +500ML BSS 0.3ML EPI 1:1000PF IRRIG ONE; +ACETAMINOPHEN 325 MG TAB PO PRN; +AMVISC PLUS 0.8ML SYRINGE INT OCU ONE; +ATOR10TA82 PO; -ATOR10TA88 PO; +ATROPINE SULFATE 0.1 MG/ML 5ML SYR IV PRN; +BSS FLUSH ONE; +EpHEDrine SULFATE INJ 50 MG/ML AMP IV PRN; +EpINEphrine INJ 1MG/ML AMP 1 MG/ML AMP ONE; +HYZ/10015 PO; +LACTATED RINGER'S 1000ML 500 ML IV SCH; +LIDOCAINE 3.5% OPH GEL PER APPLICATION CHARGE ONE; +LIDOCAINE HCL 1% MPF 2 ML VIAL ONE; -LITH1TAB PO; +MIDAZOLAM HCL 1 MG/ML 2ML VIAL ONE; +POVIDONE-IODINE OP SOLN 30 ML BTL ONE; +PROPARACAINE 0.5% OP SOLN PER DROP CHARGE OPL SCH; -THIO10CA PO; +THIO5CAP2 PO; +TOBRAMYCIN/DEXAMETHASONE OPH OINT PER APPLN CHARGE ONE
[2017-03-22] MEDS: PHENYLEPHRINE HCL 2.5% OP SOLN PER DROP CHARGE OPL SCH ×2 (13:22→13:27)
[2017-03-22] MEDS: TROPICAMIDE 1% OP SOLN PER DROP CHARGE OPL SCH ×2 (13:23→13:28)
[2017-03-22] MEDS: CYCLOPENTOLATE HCL 1% OP SOLN PER DROP CHARGE OPL SCH ×2 (13:24→13:29)
[2017-03-22] MEDS: KETOROLAC 0.5% OP SOLN PER DROP CHARGE OPL SCH ×2 (13:25→13:30)
[2017-03-22] MEDS: GATIFLOXACIN OP SOLN PER DROP CHARGE OPL SCH ×2 (13:26→13:37)
--- NOTE | 2017-03-22 13:41 | History & Physical Bridge - SC ---
H&P Re-Evaluation Bridge Note: I have examined the patient, reviewed the History & Physical and in the interval since the performance of the History & Physical I have noted the following changes of clinical significance: No changes noted
--- NOTE | 2017-03-22 14:30 | Discharge Instructions-SurgCtr ---
Discharge Instructions Date of Service Mar 22, 2017. Visit Reason for Visit: Cataract Left Eye Discharge Discharge Diagnosis / Problem: cataract Discharge Goals Goal(s): Improve function, Increase independence Activity Recommendations Activity Limitations: per Instructions/Follow-up section Anesthesia . Post Anesthesia Instructions: If you have had General Anesthesia or IV Sedation: * Do not drive today. * Resume driving when surgeon permits. * Do not make important decisions or sign legal documents today. * Call surgeon for: 1. Temperature elevations greater than 101 degrees F. 2. Uncontrollable pain. 3. Excessive bleeding. 4. Persistent nausea and vomiting. 5. Medication intolerance (nausea, vomiting or rash). * For nausea and vomiting use only clear liquids such as: tea, soda, bouillon until nausea subsides, then gradually increase diet as tolerated. * If you have any concerns or questions, call your surgeon's office. If physician is unavailable and it is an emergency, call 911 or go to the nearest emergency room. . Diet Recommendations Home Diet: resume previous diet Procedures Procedures Performed: Left Cataract Phacoemulsification With Intraocular Lens Implant Pending Studies Studies pending at discharge: no Medical Emergencies . Who to Call and When: Medical Emergencies: If at any time you feel your situation is an emergency, please call 911 immediately. . Non-Emergent Contact Non-Emergency issues call your: Plating Tank Operator . . "Provider Documentation" section prepared by Rafael Anderson. .
--- NOTE | 2017-03-22 14:31 | [facility] Operative Report ---
Operative Report Date of Service Mar 22, 2017. Operative Report 1. PREOPERATIVE DIAGNOSIS: Cataract of the left eye. 2. POSTOPERATIVE DIAGNOSIS: Same. 3. PROCEDURE: Phacoemulsification with intraocular lens implantation of the left eye. SURGEON: Dr. Rafael Anderson. ANESTHESIA: Topical Lidocaine gel, 1% Non- Preserved intracameral Lidocaine, and monitored intravenous sedation. INDICATIONS FOR THE PROCEDURE: The patient is a 66 - year-old female with a history of cataract of the left eye causing significant visual impairment. The details of the proposed procedure were explained to the patient who asked appropriate questions and following discussion of all risks, benefits and alternatives agreed to have the procedure done. 4. OPERATION AND FINDINGS: DESCRIPTION OF PROCEDURE: After informed consent was obtained, the patient was brought to the Operating Room at the [facility]. The patient was placed in a supine position and then the left eye was prepped and draped in the usual sterile fashion for intraocular surgery. A drop of topical Lidocaine gel was placed in the operative eye. A wire lid speculum was then placed in the fornices. A corneal paracentesis was then created temporally. The Non-Preserved Lidocaine was then instilled into the anterior chamber. The anterior chamber was then pressurized with viscoelastic. A 2.0 mm clear corneal incision was then created temporally. A cystotome was inserted into the anterior chamber and used to create a tear in the anterior lens capsule. This capsular tear was then used to create a small flap and the flap was dragged in a counterclockwise direction in order to create a continuous curvilinear capsulorrhexis. Hydrodissection was accomplished with balanced salt solution. Phacoemulsification of the lens nucleus was then performed in a standard [id number] technique. The phaco time was 21 seconds with an average power of 10 %. The remaining cortical material was removed using irrigation aspiration. The capsular bag was then filled with viscoelastic. A Bausch [employer] Lomb MI60L +12.5 diopters lens was then loaded into the injector and injected into the capsular bag. The remaining viscoelastic was removed with the irrigation aspiration handpiece. The wound was hydrated and then checked and found to be watertight. The intraocular pressure was checked and found to be adequate. The wire lid speculum was removed and the patient's face was cleaned and dried. TobraDex ointment was placed in the inferior fornix. The patient was discharged to the Recovery Room having tolerated the procedure well. There were no complications. The patient will be seen tomorrow in the office for follow-up. I attest to the content of the Intraoperative Record and any orders documented therein. Any exceptions are noted below.
[2017-03-22 14:59] VITALS: BP 130/73; PULSE 90; TEMP 37.2; O2SAT 96
--- NOTE | 2017-03-22 14:59 | Anesthesia Progress Nt - [facility] ---
Anesthesia Post Op Note Date & Time Mar 22, 2017 at 14:58 Vital Signs Pain Intensity: 0 Vital Signs Past 12 Hours Date Time Temp Pulse Resp B/P (MAP) Pulse Ox O2 Delivery O2 Flow Rate FiO2 03/22/17 14:40 37.2 94 16 142/83 (102) 94 Room Air 03/22/17 13:38 144/80 (101) 03/22/17 13:17 36.7 99 20 182/95 (124) 95 Room Air Notes Mental Status: alert / awake / arousable, participated in evaluation Pt Amnestic to Procedure: Yes Nausea / Vomiting: adequately controlled Pain: adequately controlled Airway Patency, RR, SpO2: stable & adequate BP & HR: stable & adequate Hydration State: stable & adequate Anesthetic Complications: no major complications apparent
== END | disposition home or self-care (01) ==
LOC: X.SURG 12:28
PROVIDERS: ATTEND Ophthalmology
DX: E11.36 Type 2 diabetes mellitus with diabetic cataract (principal); I12.9 Hypertensive chronic kidney disease with stage 1 through stage 4 chronic kidney disease, or unspecified chronic kidney disease; D64.9 Anemia, unspecified; J44.9 Chronic obstructive pulmonary disease, unspecified; F30.9 Manic episode, unspecified; K21.9 Gastro-esophageal reflux disease without esophagitis; K44.9 Diaphragmatic hernia without obstruction or gangrene; E78.00 Pure hypercholesterolemia, unspecified; E21.3 Hyperparathyroidism, unspecified; M13.0 Polyarthritis, unspecified; N18.3 Chronic kidney disease, stage 3 (moderate); E55.9 Vitamin D deficiency, unspecified; Z79.899 Other long term (current) drug therapy; Z79.84 Long term (current) use of oral hypoglycemic drugs

== ENCOUNTER → 2017-04-01 | Outpatient (CLI) | payer OTHER ==
[~2017-04-01] MED LIST changes: -500ML BSS 0.3ML EPI 1:1000PF IRRIG ONE; -ACETAMINOPHEN 325 MG TAB PO PRN; -AMVISC PLUS 0.8ML SYRINGE INT OCU ONE; -ATROPINE SULFATE 0.1 MG/ML 5ML SYR IV PRN; -BSS FLUSH ONE; +CZR25 PO; -EpHEDrine SULFATE INJ 50 MG/ML AMP IV PRN; -EpINEphrine INJ 1MG/ML AMP 1 MG/ML AMP ONE; -HYZ/10015 PO; -LACTATED RINGER'S 1000ML 500 ML IV SCH; -LIDOCAINE 3.5% OPH GEL PER APPLICATION CHARGE ONE; -LIDOCAINE HCL 1% MPF 2 ML VIAL ONE; -MIDAZOLAM HCL 1 MG/ML 2ML VIAL ONE; -POVIDONE-IODINE OP SOLN 30 ML BTL ONE; -PROPARACAINE 0.5% OP SOLN PER DROP CHARGE OPL SCH; -TOBRAMYCIN/DEXAMETHASONE OPH OINT PER APPLN CHARGE ONE
[2017-04-01 10:20] LABS: BLOOD UREA NITROGEN 16 mg/dl (7-18); BUN/CREATININE RATIO 11.7 (10-20); CARBON DIOXIDE 29 mmol/L (21-32); CHLORIDE 104 mmol/L (98-107); CREATININE 1.37 mg/dl (0.60-1.20); GLUCOSE 122 mg/dl (70-99); POTASSIUM 4.3 mmol/L (3.5-5.1); SODIUM 139 mmol/L (136-145)
== END | disposition home or self-care (01) ==
LOC: C.LAB 08:09
PROVIDERS: ATTEND Psychiatry & Neurology Psychiatry
DX: Z79.899 Other long term (current) drug therapy (principal)

== ENCOUNTER → 2017-04-19 | Day surgery (SDC) | payer OTHER ==
[2017-03-29 13:40] VITALS: Ht 152.4 cm; Wt 66.2 kg
[~2017-04-19] VITALS: Ht 152.4 cm; Wt 66.2 kg
[~2017-04-19] MED LIST changes: +500ML BSS 0.3ML EPI 1:1000PF IRRIG ONE; +ACETAMINOPHEN 325 MG TAB PO PRN; +AMVISC PLUS 0.8ML SYRINGE INT OCU ONE; +ATROPINE SULFATE 0.1 MG/ML 5ML SYR IV PRN; +BSS FLUSH ONE; +EpHEDrine SULFATE INJ 50 MG/ML AMP IV PRN; +EpINEphrine INJ 1MG/ML AMP 1 MG/ML AMP ONE; +LACTATED RINGER'S 1000ML 500 ML IV SCH; +LIDOCAINE 3.5% OPH GEL PER APPLICATION CHARGE ONE; +LIDOCAINE HCL 1% MPF 2 ML VIAL ONE; +MIDAZOLAM HCL 1 MG/ML 2ML VIAL ONE; +OCUCOAT 1 ML SOLN IO ONE; +ONDANSETRON INJ 2 MG/ML 2 ML VIAL IV ONE; +ONDANSETRON INJ 2 MG/ML 2 ML VIAL ONE; +POVIDONE-IODINE OP SOLN 30 ML BTL ONE; +PROPARACAINE 0.5% OP SOLN PER DROP CHARGE OPR SCH; +TOBRAMYCIN/DEXAMETHASONE OPH OINT PER APPLN CHARGE ONE
[2017-04-19] MEDS: PHENYLEPHRINE HCL 2.5% OP SOLN PER DROP CHARGE OPR SCH ×2 (06:46→06:53)
[2017-04-19] MEDS: TROPICAMIDE 1% OP SOLN PER DROP CHARGE OPR SCH ×2 (06:47→06:54)
[2017-04-19] MEDS: CYCLOPENTOLATE HCL 1% OP SOLN PER DROP CHARGE OPR SCH ×2 (06:48→06:55)
[2017-04-19] MEDS: KETOROLAC 0.5% OP SOLN PER DROP CHARGE OPR SCH ×2 (06:49→06:56)
[2017-04-19] MEDS: GATIFLOXACIN OP SOLN PER DROP CHARGE OPR SCH ×2 (06:50→07:00)
--- NOTE | 2017-04-19 07:52 | [facility] Operative Report ---
Operative Report Date of Service Apr 19, 2017. Operative Report 1. PREOPERATIVE DIAGNOSIS: Cataract of the right eye. 2. POSTOPERATIVE DIAGNOSIS: Same. 3. PROCEDURE: Phacoemulsification with intraocular lens implantation of the right eye. SURGEON: Dr. Rafael Anderson. ANESTHESIA: Topical Lidocaine gel, 1% Non- Preserved intracameral Lidocaine, and monitored intravenous sedation. INDICATIONS FOR THE PROCEDURE: The patient is a 66 - year-old female with a history of cataract of the right eye causing significant visual impairment. The details of the proposed procedure were explained to the patient who asked appropriate questions and following discussion of all risks, benefits and alternatives agreed to have the procedure done. 4. OPERATION AND FINDINGS: DESCRIPTION OF PROCEDURE: After informed consent was obtained, the patient was brought to the Operating Room at the [facility]. The patient was placed in a supine position and then the right eye was prepped and draped in the usual sterile fashion for intraocular surgery. A drop of topical Lidocaine gel was placed in the operative eye. A wire lid speculum was then placed in the fornices. A corneal paracentesis was then created temporally. The Non-Preserved Lidocaine was then instilled into the anterior chamber. The anterior chamber was then pressurized with viscoelastic. A 2.0 mm clear corneal incision was then created temporally. A cystotome was inserted into the anterior chamber and used to create a tear in the anterior lens capsule. This capsular tear was then used to create a small flap and the flap was dragged in a counterclockwise direction in order to create a continuous curvilinear capsulorrhexis. Hydrodissection was accomplished with balanced salt solution. Phacoemulsification of the lens nucleus was then performed in a standard [id number]-[id number] technique. The phaco time was 17 seconds with an average power of 11 %. The remaining cortical material was removed using irrigation aspiration. The capsular bag was then filled with viscoelastic. A Bausch & Lomb MI60L +11.5 diopters lens was then loaded into the injector and injected into the capsular bag. The remaining viscoelastic was removed with the irrigation aspiration handpiece. The wound was hydrated and then checked and found to be watertight. The intraocular pressure was checked and found to be adequate. The wire lid speculum was removed and the patient's face was cleaned and dried. TobraDex ointment was placed in the inferior fornix. The patient was discharged to the Recovery Room having tolerated the procedure well. There were no complications. The patient will be seen tomorrow in the office for follow-up. I attest to the content of the Intraoperative Record and any orders documented therein. Any exceptions are noted below.
--- NOTE | 2017-04-19 07:52 | Discharge Instructions-[facility]urgCtr ---
Discharge Instructions Date of Service Apr 19, 2017. Visit Reason for Visit: Cataract Right Eye Discharge Discharge Diagnosis / Problem: cataract Discharge Goals Goal(s): Improve function Activity Recommendations Activity Limitations: per Instructions/Follow-up section Anesthesia . Post Anesthesia Instructions: If you have had General Anesthesia or IV Sedation: * Do not drive today. * Resume driving when surgeon permits. * Do not make important decisions or sign legal documents today. * Call surgeon for: 1. Temperature elevations greater than 101 degrees F. 2. Uncontrollable pain. 3. Excessive bleeding. 4. Persistent nausea and vomiting. 5. Medication intolerance (nausea, vomiting or rash). * For nausea and vomiting use only clear liquids such as: tea, soda, bouillon until nausea subsides, then gradually increase diet as tolerated. * If you have any concerns or questions, call your surgeon's office. If physician is unavailable and it is an emergency, call 911 or go to the nearest emergency room. . Diet Recommendations Home Diet: resume previous diet Procedures Procedures Performed: Right Cataract Phacoemulsification With Intraocular Lens Implant Pending Studies Studies pending at discharge: no Medical Emergencies . Who to Call and When: Medical Emergencies: If at any time you feel your situation is an emergency, please call 911 immediately. . Non-Emergent Contact Non-Emergency issues call your: [employer] [id number] . . "Provider Documentation" section prepared by Rafael Anderson. .
[2017-04-19 07:57] VITALS: TEMP 36.9
--- NOTE | 2017-04-19 07:57 | Anesthesia Progress Nt - [facility] ---
Anesthesia Post Op Note Date & Time Apr 19, 2017 at 07:56 Vital Signs Pain Intensity: 0 Vital Signs Past 12 Hours Date Time Temp Pulse Resp B/P (MAP) Pulse Ox O2 Delivery O2 Flow Rate FiO2 04/19/17 06:39 36.9 64 16 111/70 (84) 95 Room Air Notes Mental Status: alert / awake / arousable, participated in evaluation Pt Amnestic to Procedure: Yes Nausea / Vomiting: adequately controlled Pain: adequately controlled Airway Patency, RR, SpO2: stable & adequate BP & HR: stable & adequate Hydration State: stable & adequate Anesthetic Complications: no major complications apparent
[2017-04-19 08:28] VITALS: BP 123/69; PULSE 80; O2SAT 96
== END | disposition home or self-care (01) ==
LOC: X.SURG 06:19
PROVIDERS: ATTEND Ophthalmology
DX: H26.9 Unspecified cataract (principal); E78.00 Pure hypercholesterolemia, unspecified; J44.9 Chronic obstructive pulmonary disease, unspecified; E11.9 Type 2 diabetes mellitus without complications; M19.90 Unspecified osteoarthritis, unspecified site; K21.9 Gastro-esophageal reflux disease without esophagitis; E66.9 Obesity, unspecified; E78.5 Hyperlipidemia, unspecified; R56.9 Unspecified convulsions; F20.9 Schizophrenia, unspecified; F31.9 Bipolar disorder, unspecified

== ENCOUNTER → 2017-06-20 | Outpatient (CLI) | payer OTHER ==
[~2017-06-20] MED LIST changes: -500ML BSS 0.3ML EPI 1:1000PF IRRIG ONE; -ACETAMINOPHEN 325 MG TAB PO PRN; -AMVISC PLUS 0.8ML SYRINGE INT OCU ONE; -ATROPINE SULFATE 0.1 MG/ML 5ML SYR IV PRN; -BSS FLUSH ONE; -EpHEDrine SULFATE INJ 50 MG/ML AMP IV PRN; -EpINEphrine INJ 1MG/ML AMP 1 MG/ML AMP ONE; -LACTATED RINGER'S 1000ML 500 ML IV SCH; -LIDOCAINE 3.5% OPH GEL PER APPLICATION CHARGE ONE; -LIDOCAINE HCL 1% MPF 2 ML VIAL ONE; -MIDAZOLAM HCL 1 MG/ML 2ML VIAL ONE; -OCUCOAT 1 ML SOLN IO ONE; -ONDANSETRON INJ 2 MG/ML 2 ML VIAL IV ONE; -ONDANSETRON INJ 2 MG/ML 2 ML VIAL ONE; -POVIDONE-IODINE OP SOLN 30 ML BTL ONE; -PROPARACAINE 0.5% OP SOLN PER DROP CHARGE OPR SCH; -TOBRAMYCIN/DEXAMETHASONE OPH OINT PER APPLN CHARGE ONE
[2017-06-20 09:40] LABS: BASO % 0.6 %; BASO ABS # 0.03 K/uL (0-0.2); EOS ABS # 0.16 K/uL (0-0.5); HEMATOCRIT 34.4 % (37-47); HEMOGLOBIN 11.4 g/dL (12.0-16.0); IG# 0.02 K/uL (0.00-0.02); LYMPH % 13.6 %; LYMPH ABS # 0.72 K/uL (1.2-3.4); MEAN CELL VOLUME 89.1 fL (80-100); MEAN CORPUSCULAR HEMOGLOBIN 29.5 pg (25-34); MEAN CORPUSCULAR HGB CONC 33.1 g/dl (32-36); MEAN PLATELET VOLUME 9.6 fL (7.4-10.4); MONO % 7.4 %; MONO ABS # 0.39 K/uL (0.11-0.59); NEUT ABS # 3.98 K/uL (1.4-6.5); PLATELET COUNT 227 K/uL (130-400); RED CELL DISTRIBUTION WIDTH CV 15.6 % (11.5-14.5); RED CELL DISTRIBUTION WIDTH SD 50.1 fL (36.4-46.3)
[2017-06-20 10:00] LABS: ALBUMIN 3.8 gm/dl (3.4-5.0); BLOOD UREA NITROGEN 19 mg/dl (7-18); CALCIUM 10.2 mg/dl (8.5-10.1); CARBON DIOXIDE 28 mmol/L (21-32); CREATININE 1.43 mg/dl (0.60-1.20); GLUCOSE 123 mg/dl (70-99); POTASSIUM 3.9 mmol/L (3.5-5.1); SODIUM 140 mmol/L (136-145)
[2017-06-20 10:01] LABS: PHOSPHORUS 3.8 mg/dl (2.5-4.9)
== END ==
LOC: C.LAB 07:24
PROVIDERS: ATTEND Psychiatry & Neurology Psychiatry
DX: D64.9 Anemia, unspecified (principal); Z79.899 Other long term (current) drug therapy

== ENCOUNTER → 2017-06-29 | Outpatient (CLI) | payer OTHER ==
--- NOTE | 2017-06-29 13:04 | DIAGNOSTIC IMAGING REPORT ---
SOFT TISS HEAD/NECK-THYROID HISTORY: Multinodular thyroid E04.2 Multinodular [id number] COMPARISON: 09/20/2016 FINDINGS: Right lobe: Maximum dimension 4.5 x 2.8 cm. Multiple hypoechoic nodules measuring up to 7 mm. No change from the prior exam Left lobe: Maximum dimension 5.0 cm. 6 mm stable calcified nodule left thyroid lobe. No change from the prior exam Isthmus: No nodules. IMPRESSION: Findings consistent with in homogeneity of both thyroid lobes with a multinodular configuration. No new or interval finding compared to the prior exam. The above report was generated using voice recognition software. It may contain grammatical, syntax or spelling errors. Electronically signed by: Kashmir Valera M.D. 06/29/2017 1:03 PM Dictated Date/Time: 06/29/2017 1:01 PM
== END | disposition home or self-care (01) ==
LOC: C.ULTR 12:20
PROVIDERS: ATTEND Internal Medicine Endocrinology, Diabetes & Metabolism
DX: E04.2 Nontoxic multinodular goiter (principal)

== ENCOUNTER 2017-07-22 14:29 | Inpatient (IN) | payer OTHER ==
[~2017-07-22] VITALS: Ht 152.4 cm; Wt 66.9 kg
[~2017-07-22 14:29] MED LIST changes: -BENZ2TAB6 PO; -CLON0.5T3 PO; -OMEP40CA41 PO; -SNG10 PO; -VITA400C3 PO; -ZOLP5TAB6 PO
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
[2017-07-22 16:20] LABS: BASO % 0.5 %; BASO ABS # 0.03 K/uL (0-0.2); EOS % 3.3 %; HEMATOCRIT 34.4 % (37-47); HEMOGLOBIN 11.2 g/dL (12.0-16.0); IG# 0.03 K/uL (0.00-0.02); LYMPH % 13.5 %; LYMPH ABS # 0.81 K/uL (1.2-3.4); MEAN CELL VOLUME 88.9 fL (80-100); MEAN CORPUSCULAR HEMOGLOBIN 28.9 pg (25-34); MEAN CORPUSCULAR HGB CONC 32.6 g/dl (32-36); MEAN PLATELET VOLUME 9.2 fL (7.4-10.4); MONO % 10.3 %; MONO ABS # 0.62 K/uL (0.11-0.59); NEUT % 71.9 %; NEUT ABS # 4.31 K/uL (1.4-6.5); PLATELET COUNT 226 K/uL (130-400); RED CELL DISTRIBUTION WIDTH CV 15.1 % (11.5-14.5); RED CELL DISTRIBUTION WIDTH SD 48.9 fL (36.4-46.3)
[2017-07-22] MEDS ORDERED: BENZ2TAB6 PO ×2 (16:26→16:55)
[2017-07-22] MEDS ORDERED: ZOLP5TAB6 PO (16:26)
[2017-07-22] MEDS ORDERED: SNG10 PO (16:26)
[2017-07-22] MEDS ORDERED: LTHSR450 PO (16:32)
[2017-07-22] MEDS ORDERED: MELA3TAB12 PO (16:32)
[2017-07-22 16:44] LABS: ALBUMIN 3.9 gm/dl (3.4-5.0); ALT/SGPT 33 U/L (12-78); AST/SGOT 17 U/L (15-37); BLOOD UREA NITROGEN 20 mg/dl (7-18); CALCIUM 9.8 mg/dl (8.5-10.1); CARBON DIOXIDE 26 mmol/L (21-32); CREATININE 1.35 mg/dl (0.60-1.20); GLUCOSE 69 mg/dl (70-99); POTASSIUM 4.1 mmol/L (3.5-5.1); SODIUM 136 mmol/L (136-145)
[2017-07-22 16:55] LABS: ALKALINE PHOSPHATASE 121 U/L (45-117); TOTAL PROTEIN 8.2 gm/dl (6.4-8.2)
[2017-07-22] MEDS ORDERED: OMEP40CA41 PO (16:55)
[2017-07-22] MEDS ORDERED: VITA400C3 PO (17:07)
[2017-07-22] MEDS ORDERED: MAGNESIUM HYDROXIDE SUSP 30 ML UDC PO PRN (19:00)
[2017-07-22] MEDS ORDERED: ALUMINUM/MAGNESIUM SUSP 30 ML UDC PO PRN (19:00)
[2017-07-22] MEDS ORDERED: SODIUM CHLORIDE 0.65% NA SOLN 45 ML (OCEAN) PRN (19:00)
[2017-07-22] MEDS ORDERED: FRRS300 PO (19:00)
[2017-07-22 19:51] VITALS: O2SAT 96
[2017-07-22 20:28] VITALS: BP 148/78; PULSE 88; TEMP 37.2; BMI 28.8
[2017-07-22] MEDS: LITHIUM CARBONATE 450 MG TABCR PO SCH (20:44)
[2017-07-22] MEDS ORDERED: NON-FORMULARY MEDICATION (Melatonin-Pyridoxine (Melatonin) 3 MG) PO SCH (21:00)
[2017-07-22] MEDS: ZOLPIDEM TARTRATE 5 MG TAB PO SCH (22:10)
[2017-07-22] MEDS: BENZTROPINE MESYLATE 1 MG TAB PO SCH (22:11)
[2017-07-22] MEDS: ATORVASTATIN 10 MG TAB PO SCH (22:11)
[2017-07-22] MEDS: CLONAZEPAM 0.5 MG TAB PO SCH (22:11)
[2017-07-22] MEDS: OMEGA-3 (PURIFIED FISH OIL) 1 GM CAP PO SCH (22:12)
[2017-07-22] MEDS: THIOTHIXENE 1 MG CAP PO SCH (22:12)
[2017-07-22] MEDS: THIOTHIXENE 5 MG CAP PO SCH (22:12)
[2017-07-22] MEDS: RISPERIDONE 3 MG TAB PO SCH (22:12)
[2017-07-22] MEDS ORDERED: CLON0.5T3 PO (23:12)
[2017-07-23 03:55] VITALS: Ht 152.4 cm; Wt 66.9 kg
[2017-07-23 06:33] VITALS: BP_SYST 173; BP_SYST 185; BP_DIAS 93; BP_DIAS 95; PULSE 92; PULSE 98; TEMP 37
[2017-07-23] MEDS ORDERED: FERROUS SULFATE 325 MG TAB PO SCH (09:00)
[2017-07-23] MEDS ORDERED: SERTRALINE HCL 50 MG TAB PO SCH (09:00)
[2017-07-23] MEDS: TOCOPHERYL, DL-ALPHA 400 INTER.UNIT CAP PO SCH (09:12)
[2017-07-23] MEDS: CEROVITE ADV FORMULA TAB PO SCH (09:12)
[2017-07-23] MEDS: OMEGA-3 (PURIFIED FISH OIL) 1 GM CAP PO SCH ×2 (09:12→20:52)
[2017-07-23] MEDS: BENZTROPINE MESYLATE 1 MG TAB PO SCH ×2 (09:12→20:48)
[2017-07-23] MEDS: LOSARTAN POTASSIUM 25 MG TAB PO SCH (09:12)
[2017-07-23] MEDS: MONTELUKAST SOD 10 MG TAB PO SCH (09:12)
[2017-07-23] MEDS: PANTOprazole SOD 40 MG TAB PO SCH (09:12)
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
[2017-07-23] MEDS ORDERED: SERTRALINE HCL 50 MG TAB PO ONE (11:00)
[2017-07-23] MEDS: hydrOXYzine HCL 25 MG TAB PO PRN (11:47)
[2017-07-23 13:57] LABS: HEMOGLOBIN A1C 5.3 % (4.5-5.6)
[2017-07-23] MEDS ORDERED: QSTP PO (16:10)
[2017-07-23] MEDS ORDERED: NURSING VERBAL MED ORDER ONE (16:15)
[2017-07-23] MEDS: RISPERIDONE 1 MG TAB PO PRN (17:44)
[2017-07-23] MEDS: ZOLPIDEM TARTRATE 5 MG TAB PO SCH (20:45)
[2017-07-23] MEDS: CLONAZEPAM 0.5 MG TAB PO SCH (20:46)
[2017-07-23] MEDS: ATORVASTATIN 10 MG TAB PO SCH (20:49)
[2017-07-23] MEDS: LITHIUM CARBONATE 450 MG TABCR PO SCH (20:49)
[2017-07-23] MEDS: THIOTHIXENE 5 MG CAP PO SCH (20:51)
[2017-07-23] MEDS: RISPERIDONE 3 MG TAB PO SCH (20:52)
[2017-07-23] MEDS: THIOTHIXENE 1 MG CAP PO SCH (20:54)
[2017-07-24] MEDS: hydrOXYzine HCL 25 MG TAB PO PRN (00:07)
[2017-07-24] MEDS: ACETAMINOPHEN 325 MG TAB PO PRN (00:09)
[2017-07-24] MEDS: RISPERIDONE 1 MG TAB PO PRN ×2 (01:47→16:28)
[2017-07-24] MEDS ORDERED: CLONAZEPAM 1 MG TAB PO STA (02:05)
[2017-07-24 06:37] VITALS: BP_SYST 166; BP_SYST 169; BP_DIAS 92; BP_DIAS 95; PULSE 105; PULSE 111; TEMP 37.1
--- NOTE | 2017-07-24 08:49 | Psychiatric Progress Notes ---
Progress Note Date of Service Jul 24, 2017. Interval History The patient is a 67 year old white female with multiple medical diagnosis and a longstanding history of Schizoaffective Disorder Bipolar Type with prior [facility] psychiatric hospitalizations. She is admitted voluntarily after lithium was decreased, and she developed delusion, insomnia and mood instability. Chief Complaint "I'm afraid I'll get confused. ". Subjective Patient was seen & assessed interval progress reviewed with Treatment Team. The patient says that her mood is in the middle right now, but it is up and down. She admits to having an episode in which she thought that the puzzle in the group room was talking to her. Her energy level is energized and nursing reports that despite prns of risperdal and klonopin, she did not sleep at all last night and has not slept since admission. She is remembering me from her hospitalizations decades ago, wanting to know about my family and feeling excited that I am now an [employer]. She says that she is trying to sleep but can't. She makes random comments like "Alex tells me I shouldn't walk backwards.", and "The fog monster is coming". Alex visited last evening and clarified her medications as he manages her meds. I inform her that I am going to increase her meds, to which she agrees, but says that she doesn't understand her meds which scares her. She has been cooperative with nursing. Review of Systems Constitutional: + problem reported (unable to sleep or settle) ENT: + hearing loss (severe, can read lips) Respiratory: No cough, No sputum, No wheezing, No shortness of breath, No dyspnea on exertion, No dyspnea at rest, No hemoptysis, No problem reported Cardiovascular: No chest pain, No orthopnea, No PND, No edema, No claudication , No palpitations, No problem reported Abdomen: No pain, No nausea, No vomiting, No diarrhea, No constipation, No GI bleeding, No problem reported Musculoskeletal: No joint pain, No muscle pain, No swelling, No calf pain, No problem reported Neurologic: No memory loss, No paralysis, No weakness, No numbness/tingling, No vertigo, No balance problems, No problem reported Psychiatric: + problem reported (hallucinations, insomnia) Integumentary: No rash, No itch, No new/changing skin lesions, No color change , No bleeding, No problem reported Sleep Information Total Hours of Sleep: 0.00 Meal Information Percent of Breakfast Consumed: 100 Percent of Lunch Consumed: 100 Percent of Dinner Consumed: 100 Mental Status Exam During interview pt is: alert and oriented, cooperative Appearance: disheveled Eye contact is: good Motor behavior is: steady gait & station, tremor (fine, BUE) Speech: normal in rate, rhythm & volume (with chronic tongue protrusion, inarticulate due to hearing loss), other Affect: depressed, tearful Mood is: other ("Up and down") Thought process: tangential Thought content: cognitive distortions Suicidal thought are: denied, Plan: denied, Intent: denied Homicidal thoughts are: denied, Plan: denied, Intent: denied Hallucinations: auditory, visual Cognition: attention grossly intact, language grossly intact Intelligence estimated to be: below average (intellectual disabilities) Insight: impaired Judgement: impaired Impression The patient appears more manic today with labile mood, inability to sleep and high energy. Will reduce zoloft to 100 mg. and consider DC, and increase Risperdal to 1 mg. AM and 5 mg. HS. Will also increase Navane to to include 5 mg. AM and increase klonopin to 1 mg. BID. Will order EKG for tomorrow in deference to her age and multiple antipsychotic agents. Will repeat BUN/creat tomorrow, if further elevation consider consulting nephrology (sees Dr. Ovalles) Plan (1) Schizoaffective disorder, chronic condition with acute exacerbation The patient is admitted to [facility] ([facility]) on q 15 min checks (behavioral with suicide precautions) for safety. The patient will participate in group, recreational and milieu therapies and will be offered additional individual and family sessions as clinically appropriate. - Continue Bellflower 450 mg q HS. Hesitant to increase without records due to reported hx of renal insufficiency - Continue Sertraline 150 mg with plan to increase. Will add Sertraline 50 mg today as one time dose and begin Sertraline 200 mg in am. - Continue Risperdal. Additional 1 mg po BID prn A/A - Continue Navane. Consider split dose. - Await OP treatment records Reviewed fasting labs from this am. 07/24 - Increase Risperdal to 1 mg. AM and 5 mg. HS - Increase Navane to include 5 mg AM - EKG tomorrow AM - BUN/creat in AM - Excuse from groups - Fall precautions - Increase Klonopin to 1 mg BID (2) Diabetes mellitus type 2 Continue to monitor for renal insufficiency. Recent UA reveal trace protein and her BUN/CR was 20/1.35 Hemoglobin A1 C ordered. Confirm glucose checks (3) Renal insufficiency 07/24 - BUN/creat mildly elevated on admission, will repeat in AM - Patient on lithium, sees Dr. Ovalles. If BUN/creat trend up, consider consult to consider if lithium safe to continue - Renal diet Case discussed with Dr Craig Discharge / Aftercare Planning Primary Care Physician: Name: Dr. Santos Galeano, [facility] [place] [facility] Psychiatrist: Name: Dr. Hahn, [facility] Therapist: Name: Katerina Valerio, [facility] Animal Laboratory Helper: Name: Zulay Marie Visit Code E&M Code: 17423 Inventory Assets Strengths: Good person,Feels for others Needs: improved physical health, financial help Risk Factors Assessment /single/: Yes Health problems: Yes Mental Health Diagnoses: Yes Substance use disorders: No Previous attempt: Yes Previous attempt;highly lethal: Yes (Mutiple attempts: hanging, burning) Previous attempt; planned: Yes Previous psychiatric stay: Yes Hopelessness: No Smoker: No Protective Factors Assessment Judaism beliefs: Yes : No Responsible for young children: No Employed: No Stable relationships: Yes Supportive family: Yes (Speaks of 2 sisters frequently - Rachel and Genoveva) Good rapport with provider: Yes Data Vital Signs Last 24 Hrs: Date Time Temp Pulse Resp B/P (MAP) Pulse Ox O2 Delivery O2 Flow Rate FiO2 07/24/17 06:37 37.1 105 22 169/95 111 166/92 Meds Administered Last 24 Hrs: Meds Administered (Past 24Hrs) Medications (Trade) Dose Ordered Sig/Kelsey Route Start Time Stop Time Status Last Admin Dose Admin Acetaminophen (Tylenol Tab) 650 mg Q4H PRN PO 07/22/17 19:00 08/21/17 18:59 07/24/17 00:09 650 MG Hydroxyzine HCl (Vistaril Tab) 50 mg HSZ PRN PO 07/22/17 19:00 08/21/17 18:59 07/24/17 00:07 50 MG Hydroxyzine HCl (Vistaril Tab) 25 mg Q4H PRN PO 07/22/17 19:00 08/21/17 18:59 07/23/17 11:47 25 MG Atorvastatin Calcium (Lipitor Tab) 10 mg HS PO 07/22/17 21:00 08/21/17 20:59 07/23/17 20:49 10 MG Clonazepam (Klonopin Tab) 0.75 mg HS PO 07/22/17 21:00 07/24/17 08:25 DC 07/23/17 20:46 0.75 MG Ferrous Sulfate (Feosol Tab) 325 mg DAILY PO 07/23/17 09:00 07/23/17 17:13 DC 07/23/17 09:12 325 MG Fish Oil (Odum-3 (Purified Fish Oil) Cap) 1 gm BID PO 07/22/17 21:00 08/21/17 20:59 07/23/17 20:52 1 GM Bellflower Carbonate (Eskalith Cr Tab) 450 mg HS PO 07/22/17 21:00 08/21/17 20:59 07/23/17 20:49 450 MG Losartan Potassium (coZAAR TAB) 25 mg QAM PO 07/23/17 09:00 08/22/17 08:59 07/23/17 09:12 25 MG Montelukast Sodium (Singulair Tab) 10 mg QAM PO 07/23/17 09:00 08/22/17 08:59 07/23/17 09:12 10 MG Multivitamins/ Minerals (Multivitamin W/ Minerals Tab) 1 tab QAM PO 07/23/17 09:00 08/22/17 08:59 07/23/17 09:12 1 TAB Risperidone (Risperdal Tab) 4.5 mg HS PO 07/22/17 21:00 07/24/17 08:25 DC 07/23/17 20:52 4.5 MG Sertraline HCl (Zoloft Tab) 150 mg QAM PO 07/23/17 09:00 07/23/17 11:35 DC 07/23/17 09:12 150 MG Thiothixene (Navane Cap) 20 mg HS PO 07/22/17 21:00 08/21/17 20:59 07/23/17 20:51 20 MG ga-Oagje-Jozmdrpjrh Acetate (Vitamin E Cap) 400 interunit DAILY PO 07/23/17 09:00 08/22/17 08:59 07/23/17 09:12 400 INTERUNIT Zolpidem Tartrate (Ambien Tab) 5 mg HS PO 07/22/17 21:00 08/21/17 20:59 07/23/17 20:45 5 MG Benztropine Mesylate (Cogentin Tab) 1 mg QAM PO 07/23/17 09:00 08/22/17 08:59 07/23/17 09:12 1 MG Benztropine Mesylate (Cogentin Tab) 2 mg HS PO 07/22/17 21:00 08/21/17 20:59 07/23/17 20:48 2 MG Pantoprazole Sodium (Protonix Tab) 40 mg QAM PO 07/23/17 09:00 08/22/17 08:59 07/23/17 09:12 40 MG Thiothixene (Navane Cap) 2 mg HS PO 07/22/17 21:00 08/21/17 20:59 07/23/17 20:54 2 MG Sertraline HCl (Zoloft Tab) 50 mg NOW ONCE PO 07/23/17 11:00 07/23/17 11:01 DC 07/23/17 11:48 50 MG Risperidone (Risperdal Tab) 1 mg BID PRN PO 07/23/17 11:30 08/22/17 11:29 07/24/17 01:47 1 MG Clonazepam (Klonopin Tab) 1 mg NOW STAT PO 07/24/17 02:05 07/24/17 02:06 DC 07/24/17 02:16 1 MG Lab Results Last 24 Hrs: 07/22/17 16:03 Red Blood Count 3.87, Mean Corpuscular Volume 88.9, Mean Corpuscular Hemoglobin 28.9, Mean Corpuscular Hemoglobin Concent 32.6, Mean Platelet Volume 9.2, Neutrophils (%) (Auto) 71.9, Lymphocytes (%) (Auto) 13.5, Monocytes (%) (Auto) 10.3, Eosinophils (%) (Auto) 3.3, Basophils (%) (Auto) 0.5, Neutrophils # (Auto ) 4.31, Lymphocytes # (Auto) 0.81, Monocytes # (Auto) 0.62, Eosinophils # (Auto ) 0.20, Basophils # (Auto) 0.03 07/22/17 16:03 Test 07/22/17 14:50 07/22/17 16:03 07/23/17 07:17 Urine Color YELLOW Urine Appearance CLEAR (CLEAR) Urine pH 6.0 (4.5-7.5) Urine Specific [place] 1.005 (1.000-1.030) Urine Protein TRACE (NEG) Urine Glucose (UA) NEG (NEG) Urine Ketones NEG (NEG) Urine Occult Blood NEG (NEG) Urine Nitrite NEG (NEG) Urine Bilirubin NEG (NEG) Urine Urobilinogen NEG (NEG) Urine Leukocyte Esterase TRACE (NEG) Urine WBC (Auto) 1-5 /hpf (0-5) Urine RBC (Auto) 0-4 /hpf (0-4) Urine Hyaline Casts (Auto) 0 /lpf (0-5) Urine Epithelial Cells (Auto) 0-5 /lpf (0-5) Urine Bacteria (Auto) NEG (NEG) Urine Opiates Screen NEG (NEG) Urine Methadone, Qualitative NEG (NEG) Urine Barbiturates NEG (NEG) Urine Phencyclidine (PCP) Level NEG (NEG) Ur Amphetamine/Methamphetamine NEG (NEG) MDMA (Ecstasy) Screen NEG (NEG) Urine Benzodiazepines Screen NEG (NEG) Urine Cocaine Metabolite NEG (NEG) Urine Marijuana (THC) NEG (NEG) White Blood Count 6.00 K/uL (4.8-10.8) Red Blood Count 3.87 M/uL (4.2-5.4) Hemoglobin 11.2 g/dL (12.0-16.0) Hematocrit 34.4 % (37-47) Mean Corpuscular Volume 88.9 fL (80-100) Mean Corpuscular Hemoglobin 28.9 pg (25-34) Mean Corpuscular Hemoglobin Concent 32.6 g/dl (32-36) Platelet Count 226 K/uL (130-400) Mean Platelet Volume 9.2 fL (7.4-10.4) Neutrophils (%) (Auto) 71.9 % Lymphocytes (%) (Auto) 13.5 % Monocytes (%) (Auto) 10.3 % Eosinophils (%) (Auto) 3.3 % Basophils (%) (Auto) 0.5 % Neutrophils # (Auto) 4.31 K/uL (1.4-6.5) Lymphocytes # (Auto) 0.81 K/uL (1.2-3.4) Monocytes # (Auto) 0.62 K/uL (0.11-0.59) Eosinophils # (Auto) 0.20 K/uL (0-0.5) Basophils # (Auto) 0.03 K/uL (0-0.2) RDW Standard Deviation 48.9 fL (36.4-46.3) RDW Coefficient of Variation 15.1 % (11.5-14.5) Immature Granulocyte % (Auto) 0.5 % Immature Granulocyte # (Auto) 0.03 K/uL (0.00-0.02) Anion Gap 7.0 mmol/L (3-11) Est Creatinine Clear Calc Drug Dose 35.5 ml/min Estimated GFR () 47.6 Estimated GFR (Non- 41.1 BUN/Creatinine Ratio 15.1 (10-20) Estimated Average Glucose 105 mg/dl Hemoglobin A1c 5.3 % (4.5-5.6) Calcium Level 9.8 mg/dl (8.5-10.1) Total Bilirubin 0.3 mg/dl (0.2-1) Direct Bilirubin < 0.1 mg/dl (0-0.2) Aspartate Amino Transf (AST/SGOT) 17 U/L (15-37) Alanine Aminotransferase (ALT/SGPT) 33 U/L (12-78) Alkaline Phosphatase 121 U/L (45-117) Total Protein 8.2 gm/dl (6.4-8.2) Albumin 3.9 gm/dl (3.4-5.0) Thyroid Stimulating Hormone (TSH) 3.260 uIu/ml (0.300-4.500) Salicylates Level < 1.7 mg/dl (2.8-20) Acetaminophen Level < 2 ug/ml (10-30) Ethyl Alcohol mg/dL < 3.0 mg/dl (0-3) Fasting Glucose 129 mg/dl (70-99) Triglycerides Level 151 mg/dl (0-150) Cholesterol Level 165 mg/dl (0-200) HDL Cholesterol 56 mg/dl LDL Cholesterol, Calculated 79 mg/dl VLDL Cholesterol, Calculated 30 mg/dl Cholesterol/HDL Ratio 2.9 Bellflower Level 0.6 mMOL/L (0.6-1.2) Last 24 Hours Test 07/23/17 11:28
[2017-07-24] MEDS ORDERED: SERTRALINE HCL 100 MG TAB PO SCH (09:00)
[2017-07-24] MEDS ORDERED: SERTRALINE HCL 50 MG TAB PO SCH (09:00)
[2017-07-24] MEDS: THIOTHIXENE 5 MG CAP PO SCH ×2 (09:42→19:51)
[2017-07-24] MEDS: RISPERIDONE 1 MG TAB PO SCH ×2 (09:42→19:55)
[2017-07-24] MEDS: CLONAZEPAM 1 MG TAB PO SCH ×2 (09:42→19:56)
[2017-07-24] MEDS: CEROVITE ADV FORMULA TAB PO SCH (09:43)
[2017-07-24] MEDS: MONTELUKAST SOD 10 MG TAB PO SCH (09:43)
[2017-07-24] MEDS: PANTOprazole SOD 40 MG TAB PO SCH (09:43)
[2017-07-24] MEDS: OMEGA-3 (PURIFIED FISH OIL) 1 GM CAP PO SCH ×2 (09:43→20:10)
[2017-07-24] MEDS: TOCOPHERYL, DL-ALPHA 400 INTER.UNIT CAP PO SCH (09:43)
[2017-07-24] MEDS: LOSARTAN POTASSIUM 25 MG TAB PO SCH (09:44)
[2017-07-24] MEDS: BENZTROPINE MESYLATE 1 MG TAB PO SCH ×2 (09:44→19:47)
[2017-07-24] MEDS ORDERED: QUETIAPINE FUMARATE 100 MG TAB PO ONE ×2 (12:00→14:30)
[2017-07-24] MEDS ORDERED: NURSING VERBAL MED ORDER ONE ×3 (13:45→17:45)
[2017-07-24] MEDS: CHOLESTYRAMINE LIGHT 4 GM PKT PO SCH (14:00)
[2017-07-24 14:01] VITALS: BP 169/105
[2017-07-24] MEDS ORDERED: CLONAZEPAM 1 MG TAB PO SCH (17:15)
[2017-07-24] MEDS ORDERED: HALOPERIDOL LACTATE 5 MG/ML 1 ML VIAL IM PRN (17:15)
[2017-07-24 17:49] VITALS: BP 171/94; PULSE 97
[2017-07-24] MEDS ORDERED: LORAZEPAM 2 MG/ML 1 ML VIAL ONE (18:14)
[2017-07-24 18:20] VITALS: BP 182/91; PULSE 94
[2017-07-24] MEDS ORDERED: HALOPERIDOL LACTATE 5 MG/ML 1 ML VIAL IM SCH (18:30)
[2017-07-24] MEDS: LITHIUM CARBONATE 450 MG TABCR PO SCH (19:48)
[2017-07-24] MEDS: ATORVASTATIN 10 MG TAB PO SCH (19:49)
[2017-07-24] MEDS: MELATONIN 3 MG PO SCH (19:49)
[2017-07-24] MEDS: THIOTHIXENE 1 MG CAP PO SCH (19:50)
--- NOTE | 2017-07-24 19:54 | Psychiatric Progress Notes ---
Psychiatric Progress Note Date of Service Jul 24, 2017. Notes Multiplle contacts with nursing regarding patient progress. She has had Seroquel 200 mg as one time doses with little effect in addition to scheduled meds and prns of risperdal 1 mg and an additional Klonopin 1 mg. She is appearing more sleepy, at times requiring 1:1 supervision, but she is still unable to be still long enough to rest. Collaborated with Dr. Aysha Espitia as she will be receiving the patient in the AM. I have order haldol 10 mg and ativan 2 mg IM as the patient is willing for an injection which was given within the last hour. Dr. Espitia felt it was reasonable to continue with prn's of haldol to target stefan/insomnia/restlessness. I have instructed nursing to administer her HS meds now, and if not able to sleep within 2 hours, to administer the prn of Haldol 5 mg and to keep me posted. BP's trending upwards and pulse in the 90's, low 100's. Labs/EKG scheduled for the AM.
[2017-07-24] MEDS: ZOLPIDEM TARTRATE 5 MG TAB PO SCH (19:56)
[2017-07-24 20:03] VITALS: BP 146/84; PULSE 93; TEMP 36.7
[2017-07-25 08:01] LABS: CREATININE 1.36 mg/dl (0.60-1.20)
--- NOTE | 2017-07-25 09:35 | Psychiatric Progress Notes ---
Progress Note Date of Service Jul 25, 2017. Interval History The patient is a 67 year old white female with multiple medical diagnosis and a longstanding history of Schizoaffective Disorder Bipolar Type with prior psychiatric hospitalizations. She is admitted voluntarily after lithium was decreased, and she developed psychotic stefan. Chief Complaint "Confused ". Subjective Patient was seen & assessed interval progress reviewed with Treatment Team. Staff report she has had a difficult hospitalization thus far, has not slept at all in 4 days, and was extremely disorganized, tangential, and hyperactive. She has not been able to attend groups, and has been utilizing the safe room and WILIAN to decrease stimulation. She wanted staff to call the [facility] and have cats and dogs brought to the hospital, was hallucinating and said that a puzzle was talking to her, and said she was going to call 911. She received numerous medications yesterday including 4 mg of clonazepam, 50 mg of hydroxyzine, 200 mg of quetiapine, 8 mg of risperidone, 30 mg of thiothixene, 5 mg of zolpidem, and finally 2 mg of Lorazepam and 10 mg of haloperidol IM, after which she fell asleep. This morning, she was seen in the safe room, where she is seated in the bedside chair. She does not always respond appropriately to questioning, instead holding out 1 of her toiletry bottles stating "it says me," and then once this physician to feel her bath in a bag, which is warm. She has difficulty taking her morning medications, she is not able to swallow some of the pills without much encouragement and assistance from staff. She is slow to respond to questions, and notes that she feels confused. She remains disorganized, often responding with unrelated information. Review of Systems + Dry skin on lips Sleep Information Total Hours of Sleep: 0.00 Meal Information Percent of Breakfast Consumed: 75 Percent of Lunch Consumed: 75 Percent of Dinner Consumed: 25 Mental Status Exam During interview pt is: alert and oriented, cooperative (But a limited historian) Appearance: disheveled (Hair appears dirty and unkempt), other (Obese, bilateral upper extremity tremor, seated in no acute distress) Eye contact is: good Motor behavior is: tremor (fine, BUE) Speech: normal in rate, rhythm & volume (Dysarthric, tongue protrusion), other Affect: blunted Mood is: other ("Confused") Thought process: tangential (Disorganized, answers with unrelated information at times) Thought content: cognitive distortions Suicidal thought are: denied Homicidal thoughts are: denied Hallucinations: auditory, visual Cognition: language grossly intact, other (Memory and attention impaired) Intelligence estimated to be: below average (intellectual disabilities) Insight: impaired Judgement: impaired Summary of Past History Spoke with Dr. Hahn and reviewed patient's history, lithium has been decreased by around 150mg twice in the past year, due to CKD and chronic diarrhea, not sure when last decreased exactly. Her GFR has been decreasing over the years. No other med changes have been made recently. There is also a communication challenge, in part due to her hearing difficulties. She is chronically distressed and rarely feels good, has a significant trauma history. Impression Admitted with psychotic stefan, and had not slept in several days until last night. Sertraline has been reduced to 100 mg. and consider discontinuing it if stefan continues. Risperidone has been increased to 1 mg. AM and 5 mg. HS, thiothixene to 5 mg. AM and 20 mg nightly, and clonazepam to 1 mg. BID to target manic and psychotic symptoms. EKG is ordered for today due to her age and multiple antipsychotic agents. We are following her BUN/creat, which are slightly elevated but unchanged since admission. If further elevation consider consulting nephrology (sees Dr. Ovalles). She continues to require inpatient treatment due to the severity of her symptoms and inability to be managed in a less restrictive environment. Plan (1) Schizoaffective disorder, chronic condition with acute exacerbation The patient is admitted to [facility] ([facility]) on q 15 min checks (behavioral with suicide precautions) for safety. The patient will participate in group, recreational and milieu therapies and will be offered additional individual and family sessions as clinically appropriate. - Continue Yonah 450 mg q HS. Hesitant to increase without records due to reported hx of renal insufficiency - Continue Sertraline 150 mg with plan to increase. Will add Sertraline 50 mg today as one time dose and begin Sertraline 200 mg in am. - Continue Risperdal. Additional 1 mg po BID prn A/A - Continue Navane. Consider split dose. - Await OP treatment records - Reviewed fasting labs from this am. 07/24 - Increase Risperdal to 1 mg. AM and 5 mg. HS - Increase Navane to include 5 mg AM - EKG tomorrow AM - BUN/creat in AM - Excuse from groups - Fall precautions - Increase Klonopin to 1 mg BID 07/25 -Continue risperidone 1 mg every morning and 5 mg nightly, thiothixene 5 mg every morning and 20 mg nightly, zolpidem 5 mg nightly, and lithium 450 mg nightly. -Continue risperidone 1 mg twice daily as needed. -If sleep does not regulate, consider consolidating antipsychotics to bedtime. -Continue decreased dose of sertraline, 100 mg daily, and decreased further if stefan does not improve. -BUN and creatinine rechecked today and unchanged from admission (BUN 20, creatinine 1.36). EKG sinus tachycardia, rate 127, QTc 499 (admission EKG NSR QTs 467). -Place patient in a medically necessary private room due to severity of stefan and disorganization. -Request records from her outpatient psychiatrist, Dr. Hahn, and spoke to her to coordinate care. Will need to review past med trials when records arrive , to look for potential alternatives to lithium (Depakote?) -Consult nephrology (Dr. Hays, below) re: kidney function and ability to continue lithium. (2) Diabetes mellitus type 2 Continue to monitor for renal insufficiency. Recent UA reveal trace protein and her BUN/CR was 20/1.35 Hemoglobin A1 C ordered -5.3, with estimated average glucose of 105. Confirm glucose checks (3) Renal insufficiency 07/24 - BUN/creat mildly elevated on admission, will repeat in AM - Patient on lithium, sees Dr. Ovalles. If BUN/creat trend up, consider consult to consider if lithium safe to continue - Renal diet 07/25 -BUN and creatinine rechecked and are unchanged. Consult nephrology (Dr. Ovalles is her outpatient, spoke with Dr. Hays who is seeing consults today) re: her kidney disease and safety of continuing lithium. Dose has been decreased by her outpatient psychiatrist, who would also like assistance in determining safety of continuing lithium. She states Brenda's kidney function has been fairly stable over the past few years, so could continue lithium if no other options, but may want to consider a trial of another medication if a similarly effective one is available, to try to avoid progression of kidney disease/need for dialysis. If she continues on lithium, recommended BUN and creatinine q 6 months , and urine to check for proteinuria once a year. Dr. Ovalles saw her in Jun. and will see her again in September. (4) Hyperlipemia Continue home doses of atorvastatin and cholestyramine. (5) Gastroesophageal reflux disease Omeprazole is nonformulary, so give equivalent dose of Protonix. (6) Heart disease Continue home dose of losartan. Discharge / Aftercare Planning Primary Care Physician: Name: Dr. Santos Galeano, [facility] [place] [id number] Psychiatrist: Name: Dr. Hahn, [facility] Date of Appointment: Aug 02, 2017 Time of Appointment: 2pm Therapist: Name: Katerina Valerio [facility] (07/29 1pm) Training Representative: Name: Zulay Christianson Visit Code E&M Code: 53894 Inventory Assets Strengths: Good person,Feels for others Needs: improved physical health, financial help Risk Factors Assessment : Yes /single/: Yes Higher / Fall in social status: No Health problems: Yes Mental Health Diagnoses: Yes Substance use disorders: No Previous attempt: Yes Previous attempt;highly lethal: Yes (Mutiple attempts: hanging, burning) Previous attempt; planned: Yes Previous psychiatric stay: Yes Hopelessness: No Smoker: No Protective Factors Assessment Advent beliefs: Yes : No (But lives with long-term boyfriend) Responsible for young children: No Employed: No Stable relationships: Yes Supportive family: Yes (Speaks of 2 sisters frequently - Rachel and Genoveva) Good rapport with provider: Yes Data Vital Signs Last 24 Hrs: Date Time Temp Pulse Resp B/P (MAP) Pulse Ox O2 Delivery O2 Flow Rate FiO2 07/24/17 20:03 36.7 93 20 146/84 07/24/17 18:20 94 16 182/91 07/24/17 17:49 97 171/94 07/24/17 14:01 169/105 Meds Administered Last 24 Hrs: Meds Administered (Past 24Hrs) Medications (Trade) Dose Ordered Sig/Kelsey Route Start Time Stop Time Status Last Admin Dose Admin Sertraline HCl (Zoloft Tab) 50 mg NOW ONCE PO 3/24/18 11:00 07/23/17 11:01 DC 07/23/17 11:48 50 MG Risperidone (Risperdal Tab) 1 mg BID PRN PO 07/23/17 11:30 08/22/17 11:29 07/24/17 16:28 1 MG Clonazepam (Klonopin Tab) 1 mg NOW STAT PO 07/24/17 02:05 07/24/17 02:06 DC 07/24/17 02:16 1 MG Sertraline HCl (Zoloft Tab) 100 mg QAM PO 07/24/17 09:00 07/24/17 17:10 DC 07/24/17 09:42 100 MG Risperidone (Risperdal Tab) 1 mg QAM PO 07/24/17 09:00 08/23/17 08:59 07/24/17 09:42 1 MG Risperidone (Risperdal Tab) 5 mg HS PO 07/24/17 22:00 08/23/17 21:59 07/24/17 19:55 5 MG Clonazepam (Klonopin Tab) 1 mg BID PO 07/24/17 09:00 08/23/17 08:59 07/24/17 19:56 1 MG Thiothixene (Navane Cap) 5 mg QAM PO 07/24/17 09:00 08/23/17 08:59 07/24/17 09:42 5 MG Quetiapine Fumarate (seroQUEL TAB) 100 mg ONE ONCE PO 07/24/17 12:00 07/24/17 12:01 DC 07/24/17 12:00 100 MG Melatonin (Melatonex) 3 mg HS PO 07/24/17 22:00 08/23/17 21:59 07/24/17 19:49 3 MG Quetiapine Fumarate (seroQUEL TAB) 100 mg ONE ONCE PO 07/24/17 14:30 07/24/17 14:31 DC 07/24/17 14:38 100 MG Clonazepam (Klonopin Tab) 1 mg TODAY@1715 PO 07/24/17 17:15 07/24/17 18:00 DC 07/24/17 17:13 1 MG Lorazepam (Ativan Inj) 2 mg STK-MED ONCE .ROUTE 07/24/17 18:14 07/24/17 18:15 DC 07/24/17 18:35 2 MG Haloperidol Lactate (Haldol Inj) 10 mg TODAY@1830 IM 07/24/17 18:30 07/24/17 20:00 DC 07/24/17 18:36 10 MG Lab Results Last 24 Hrs: Last 24 Hours Test 07/25/17 07:08 Blood Urea Nitrogen 20 mg/dl Creatinine 1.36 mg/dl Est Creatinine Clear Calc Drug Dose 35.2 ml/min Estimated GFR () 47.2 Estimated GFR (Non- 40.7 BUN/Creatinine Ratio 14.9
[2017-07-25] MEDS: BENZTROPINE MESYLATE 1 MG TAB PO SCH ×2 (09:46→21:16)
[2017-07-25] MEDS: CLONAZEPAM 1 MG TAB PO SCH ×2 (09:47→21:16)
[2017-07-25] MEDS: LOSARTAN POTASSIUM 25 MG TAB PO SCH (09:47)
[2017-07-25] MEDS: CEROVITE ADV FORMULA TAB PO SCH (09:48)
[2017-07-25] MEDS: OMEGA-3 (PURIFIED FISH OIL) 1 GM CAP PO SCH ×2 (09:48→21:17)
[2017-07-25] MEDS: THIOTHIXENE 5 MG CAP PO SCH ×2 (09:48→21:17)
[2017-07-25] MEDS: PANTOprazole SOD 40 MG TAB PO SCH (09:49)
[2017-07-25] MEDS: ERGOCALCIFEROL 50,000 INTER.UNIT CAP PO SCH (09:50)
[2017-07-25] MEDS: MONTELUKAST SOD 10 MG TAB PO SCH (09:50)
[2017-07-25] MEDS: RISPERIDONE 1 MG TAB PO SCH ×2 (09:50→21:17)
[2017-07-25] MEDS: TOCOPHERYL, DL-ALPHA 400 INTER.UNIT CAP PO SCH (09:51)
[2017-07-25 12:16] VITALS: BP_SYST 100; BP_SYST 167; BP_DIAS 76; BP_DIAS 88; PULSE 115; PULSE 127; TEMP 36.3
[2017-07-25] MEDS: CHOLESTYRAMINE LIGHT 4 GM PKT PO SCH (14:09)
[2017-07-25 15:07] VITALS: BP 110/73; PULSE 111
--- NOTE | 2017-07-25 15:13 | Nephrology Consultation ---
Nephrology Consultation Date & Providers Date of Consultation: Jul 25, 2017. Primary Care Provider: Santos Galeano III, CRNP Referring Provider: Reason for Consultation Evaluation and management for chronic kidney disease and concern for lithium induced nephrotoxicity. History of Present Illness Brenda is a 67-year-old female with past medical history significant for schizoaffective disorder, chronic kidney disease and diabetes admitted to the hospital after an episode of suicidal thoughts. [facility] consult was requested to evaluate for chronic kidney disease and decision about ongoing lithium use. Electronic medical records were reviewed in detail during patient' s visit. Brenda has schizoaffective disorder and she has been on lithium for several years. Her renal function started to decline over last 2-3 years, creatinine has been staying around 1.3-1.4 and eGFR around 45-50. Urinalysis benign. No renal ultrasound available. She follows with Dr. Ovalles, last sen in Jun. Has hypertension, on losartan 25 daily. Has diabetes, well controlled as well. No history of CHF or coronary artery disease. She is a nonsmoker. No history of chronic NSAID use. She was admitted to the hospital after she had an episode of suicidal thoughts after watching the emotional TV show. Currently she clinically seems stable. Renal function stable. She reports polyuria, polydipsia and excessive thirst but S Na has been normal. Allergies Coded Allergies: Aspirin (Verified Allergy, Unknown, UNKNOWN REACTION, 04/19/17) Clozapine (Verified Allergy, Unknown, TOXIC REACTION, 04/19/17) Codeine (Verified Allergy, Unknown, UNKNOWN REACTION, 04/19/17) Ibuprofen (Verified Allergy, Unknown, UNKNOWN REACTION, 04/19/17) Lurasidone (Verified Allergy, Unknown, TOXIC REACTION, 04/19/17) Penicillins (Verified Allergy, Unknown, UNKNOWN REACTION, 04/19/17) AMOXIL Sulfa Antibiotics (Verified Allergy, Unknown, UNKNOWN REACTION, 04/19/17) Inpatient Medications Current Inpatient Medications Medications (Trade) Dose Ordered Sig/Kelsey Route Start Time Stop Time Status Last Admin Dose Admin Acetaminophen (Tylenol Tab) 650 mg Q4H PRN PO 07/22/17 19:00 08/21/17 18:59 07/24/17 00:09 650 MG Al Hydroxide/Mg Hydroxide (Maalox Susp) 30 ml Q4H PRN PO 07/22/17 19:00 08/21/17 18:59 Magnesium Hydroxide (Milk Of Magnesia Susp) 30 ml DAILY PRN PO 07/22/17 19:00 08/21/17 18:59 Sodium Chloride ([place] Nasal [place]) PRN PRN NA 07/22/17 19:00 08/21/17 18:59 Hydroxyzine HCl (Vistaril Tab) 50 mg HSZ PRN PO 07/22/17 19:00 08/21/17 18:59 07/24/17 00:07 50 MG Hydroxyzine HCl (Vistaril Tab) 25 mg Q4H PRN PO 07/22/17 19:00 08/21/17 18:59 07/23/17 11:47 25 MG Atorvastatin Calcium (Lipitor Tab) 10 mg HS PO 07/22/17 21:00 08/21/17 20:59 07/24/17 19:49 10 MG Ergocalciferol (Vitamin D Cap) 50,000 interunit Mo@0900 PO 07/25/17 09:00 08/24/17 08:59 07/25/17 09:50 50,000 INTERUNIT Fish Oil ([place]-3 (Purified Fish Oil) Cap) 1 gm BID PO 07/22/17 21:00 08/21/17 20:59 07/25/17 09:48 1 GM [place] Carbonate (Eskalith Cr Tab) 450 mg HS PO 07/22/17 21:00 08/21/17 20:59 07/24/17 19:48 450 MG Losartan Potassium (coZAAR TAB) 25 mg QAM PO 07/23/17 09:00 08/22/17 08:59 07/25/17 09:47 25 MG Montelukast Sodium (Singulair Tab) 10 mg QAM PO 07/23/17 09:00 08/22/17 08:59 07/25/17 09:50 10 MG Multivitamins/ Minerals (Multivitamin W/ Minerals Tab) 1 tab QAM PO 07/23/17 09:00 08/22/17 08:59 07/25/17 09:48 1 TAB Thiothixene (Navane Cap) 20 mg HS PO 07/22/17 21:00 08/21/17 20:59 07/24/17 19:51 20 MG de-Pszry-Ycqywnicnl Acetate (Vitamin E Cap) 400 interunit DAILY PO 07/23/17 09:00 08/22/17 08:59 07/25/17 09:51 400 INTERUNIT Zolpidem Tartrate (Ambien Tab) 5 mg HS PO 07/22/17 21:00 08/21/17 20:59 07/24/17 19:56 5 MG Benztropine Mesylate (Cogentin Tab) 1 mg QAM PO 07/23/17 09:00 08/22/17 08:59 07/25/17 09:46 1 MG Benztropine Mesylate (Cogentin Tab) 2 mg HS PO 07/22/17 21:00 08/21/17 20:59 07/24/17 19:47 2 MG Pantoprazole Sodium (Protonix Tab) 40 mg QAM PO 07/23/17 09:00 08/22/17 08:59 07/25/17 09:49 40 MG Thiothixene (Navane Cap) 2 mg HS PO 07/22/17 21:00 08/21/17 20:59 07/24/17 19:50 2 MG Risperidone (Risperdal Tab) 1 mg BID PRN PO 07/23/17 11:30 08/22/17 11:29 07/24/17 16:28 1 MG Cholestyramine Resin (Questran Powder Light) 4 gm DAILY@1400 PO 07/24/17 14:00 08/23/17 13:59 Risperidone (Risperdal Tab) 1 mg QAM PO 07/24/17 09:00 08/23/17 08:59 07/25/17 09:50 1 MG Risperidone (Risperdal Tab) 5 mg HS PO 07/24/17 22:00 08/23/17 21:59 07/24/17 19:55 5 MG Clonazepam (Klonopin Tab) 1 mg BID PO 07/24/17 09:00 08/23/17 08:59 07/25/17 09:47 1 MG Thiothixene (Navane Cap) 5 mg QAM PO 07/24/17 09:00 08/23/17 08:59 07/25/17 09:48 5 MG Melatonin (Melatonex) 3 mg HS PO 07/24/17 22:00 08/23/17 21:59 07/24/17 19:49 3 MG Haloperidol Lactate (Haldol Inj) 5 mg ONE PRN IM 07/24/17 17:15 07/31/17 17:14 Haloperidol (Haldol Tab) 5 mg Q4H PRN PO 07/24/17 17:15 08/23/17 17:14 Family History FH: heart disease Social History Smoking Status: Former Smoker Drug Use: none Marital Status: in relationship Housing Status: lives with family Occupation: retired Review of Systems A complete review of systems was performed. Pertinent positives are noted above. All other systems are negative. Physical Exam Date Time Temp Pulse Resp B/P (MAP) Pulse Ox O2 Delivery O2 Flow Rate FiO2 07/24/17 20:03 36.7 93 20 146/84 07/24/17 18:20 94 16 182/91 07/24/17 17:49 97 171/94 07/24/17 14:01 169/105 GENERAL: Middle-aged female, AAA x 3, pleasant, healthy-appearing, not in any distress. HEENT: Atraumatic, normocephalic. NECK: Supple, no JVD, no carotid bruit appreciated. ENT: No sinus tenderness MOUTH and THROAT: Moist oral mucosa, no oral ulcer or pharyngeal erythema RESPIRATORY: Normal breathing efforts, no accessory muscle use, clear to auscultation bilaterally, no wheezes or rales. CARDIOVASCULAR: S1, S2 normal, rate rhythm regular. ABDOMEN: Soft, nontender, positive bowel sound. MUSCULOSKELETAL: No CVA tenderness. No joint swelling, erythema or tenderness. Normal range of motion. SKIN: No skin rash EXTREMITY: No lower extremity edema NEURO: No gross focal neurological deficit, speech fluent. PSYCHIATRY: Normal mood and judgment Laboratory Results Last 24 Hours Test 07/25/17 07:08 Blood Urea Nitrogen 20 mg/dl Creatinine 1.36 mg/dl Est Creatinine Clear Calc Drug Dose 35.2 ml/min Estimated GFR () 47.2 Estimated GFR (Non- 40.7 BUN/Creatinine Ratio 14.9 Impression 67-year-old female with stage 3 chronic kidney disease, baseline creatinine around 1.3-1.5, in the setting of chronic lithium use. Has diabetes, well controlled no history of proteinuria or retinopathy. Urinalysis unremarkable. No renal ultrasound available. No chronic NSAID use. No history of autoimmune disorder. Renal function seems to be at baseline, electrolyte acceptable. Blood pressure and volume status stable. Recommendations --It is quite possible that patient has chronic renal insufficiency due to underlying lithium use and lithium induced chronic tubular interstitial disease. Renal function remained stable. However, with ongoing lithium use patient is at risk for progressive slow decline in renal function. --would suggest to discontinue lithium and try different mood stabilizer if possible, however controlling her symptoms should take priority as her renal function has been pretty stable. --increase losartan to 50 mg/d --avoid nephrotoxic medications --avoid volume depletion, patient does have symptoms suggestive of lithium induced DI however Na has been normal since pt awake alert and able to keep up with fluid intake. Thank you for allowing me to participate in your patient's care. It was a pleasure to see Brenda. Will sign off, please contact if any further assistance needed. Pt has f/u appointment scheduled with Dr. Ovalles, encourage to keep the appointment.
[2017-07-25] MEDS: HALOPERIDOL 5 MG TAB PO PRN (16:59)
[2017-07-25] MEDS: ZOLPIDEM TARTRATE 5 MG TAB PO SCH (21:15)
[2017-07-25] MEDS: THIOTHIXENE 1 MG CAP PO SCH (21:16)
[2017-07-25] MEDS: LITHIUM CARBONATE 450 MG TABCR PO SCH (21:16)
[2017-07-25] MEDS: ATORVASTATIN 10 MG TAB PO SCH (21:16)
[2017-07-25] MEDS: MELATONIN 3 MG PO SCH (21:16)
[2017-07-26] MEDS: BENZTROPINE MESYLATE 1 MG TAB PO SCH ×2 (08:13→21:06)
[2017-07-26] MEDS: LOSARTAN POTASSIUM 25 MG TAB PO SCH (08:14)
[2017-07-26] MEDS: CLONAZEPAM 1 MG TAB PO SCH ×2 (08:14→21:06)
[2017-07-26] MEDS: THIOTHIXENE 5 MG CAP PO SCH ×2 (08:14→21:07)
[2017-07-26] MEDS: OMEGA-3 (PURIFIED FISH OIL) 1 GM CAP PO SCH ×2 (08:14→21:08)
[2017-07-26] MEDS: PANTOprazole SOD 40 MG TAB PO SCH (08:14)
[2017-07-26] MEDS: CEROVITE ADV FORMULA TAB PO SCH (08:14)
[2017-07-26] MEDS: MONTELUKAST SOD 10 MG TAB PO SCH (08:15)
[2017-07-26] MEDS: TOCOPHERYL, DL-ALPHA 400 INTER.UNIT CAP PO SCH (08:15)
[2017-07-26] MEDS: RISPERIDONE 1 MG TAB PO SCH ×2 (08:15→21:08)
[2017-07-26] MEDS: ACETAMINOPHEN 325 MG TAB PO PRN (08:16)
--- NOTE | 2017-07-26 09:50 | Psychiatric Progress Notes ---
Progress Note Date of Service Jul 26, 2017. Interval History The patient is a 67 year old white female with multiple medical diagnosis and a longstanding history of Schizoaffective Disorder Bipolar Type with prior psychiatric hospitalizations. She is admitted voluntarily after lithium was decreased, and she developed psychotic stefan. Chief Complaint None stated Subjective Patient was seen & assessed interval progress reviewed with Treatment Team. The patient says that her energy is low today and that she fears the meds with "make me stop". She slept for 4 hours last night, less than the night before. Nursing describes her as intrusive requiring redirection, but less manic over the last day. She reports that she has "restless legs" but isn't sure if that' s why she takes cogentin, "but Alex would know.". She denies clear aud/vis hallucinations today but says that she is having "odd thoughts", but can't give an example, "I can't remember.". She reports some SOB both at rest and with activity, but denies associated CP. She denies SI/HI. She says that she hasn' t showered since admission, not liking showers, but agrees that she'll have to while here. She is wearing her hearing aide today and conversation is easier. Review of Systems Constitutional: No fever, No chills, No sweats, No weight loss, No weakness, No fatigue, No problem reported ENT: + hearing loss Respiratory: + shortness of breath Cardiovascular: No chest pain, No orthopnea, No PND, No edema, No claudication , No palpitations, No problem reported Abdomen: No pain, No nausea, No vomiting, No diarrhea, No constipation, No GI bleeding, No problem reported Musculoskeletal: No joint pain, No muscle pain, No swelling, No calf pain, No problem reported Neurologic: No memory loss, No paralysis, No weakness, No numbness/tingling, No vertigo, No balance problems, No problem reported Psychiatric: + insomnia Integumentary: No rash, No itch, No new/changing skin lesions, No color change , No bleeding, No problem reported Sleep Information Total Hours of Sleep: 4.00 Meal Information Percent of Breakfast Consumed: 0 Percent of Lunch Consumed: 75 Percent of Dinner Consumed: 75 Mental Status Exam During interview pt is: alert and oriented, cooperative (But a limited historian) Appearance: disheveled (Hair appears dirty and unkempt), other (Obese, bilateral upper extremity tremor, seated in no acute distress) Eye contact is: good Motor behavior is: steady gait & station, tremor (fine, BUE) Speech: normal in rate, rhythm & volume (Dysarthric, tongue protrusion) Affect: blunted Mood is: other ("Confused") Thought process: tangential (Disorganized, answers with unrelated information at times) Thought content: cognitive distortions Suicidal thought are: denied Homicidal thoughts are: denied Hallucinations: denies auditory, denies visual Cognition: language grossly intact, other (Memory and attention impaired) Intelligence estimated to be: below average (intellectual disabilities) Insight: limited Judgement: limited Summary of Past History Spoke with Dr. Hahn and reviewed patient's history, lithium has been decreased by around 150mg twice in the past year, due to CKD and chronic diarrhea, not sure when last decreased exactly. Her GFR has been decreasing over the years. No other med changes have been made recently. There is also a communication challenge, in part due to her hearing difficulties. She is chronically distressed and rarely feels good, has a significant trauma history. Impression Some improvement to manic symptoms but consistent sleep is elusive. Will have staff assist her to shower today. Will continue current meds as she is showing some improvement. Is on Cogentin but not clear what symptoms we are addressing. Consider switching to Artane for better response for possible akathisia. Plan (1) Schizoaffective disorder, chronic condition with acute exacerbation The patient is admitted to [facility] ([facility]) on q 15 min checks (behavioral with suicide precautions) for safety. The patient will participate in group, recreational and milieu therapies and will be offered additional individual and family sessions as clinically appropriate. - Continue [place] 450 mg q HS. Hesitant to increase without records due to reported hx of renal insufficiency - Continue Sertraline 150 mg with plan to increase. Will add Sertraline 50 mg today as one time dose and begin Sertraline 200 mg in am. - Continue Risperdal. Additional 1 mg po BID prn A/A - Continue Navane. Consider split dose. - Await OP treatment records - Reviewed fasting labs from this am. 07/24 - Increase Risperdal to 1 mg. AM and 5 mg. HS - Increase Navane to include 5 mg AM - EKG tomorrow AM - BUN/creat in AM - Excuse from groups - Fall precautions - Increase Klonopin to 1 mg BID 07/25 -Continue risperidone 1 mg every morning and 5 mg nightly, thiothixene 5 mg every morning and 20 mg nightly, zolpidem 5 mg nightly, and lithium 450 mg nightly. -Continue risperidone 1 mg twice daily as needed. -If sleep does not regulate, consider consolidating antipsychotics to bedtime. -Continue decreased dose of sertraline, 100 mg daily, and decreased further if stefan does not improve. -BUN and creatinine rechecked today and unchanged from admission (BUN 20, creatinine 1.36). EKG sinus tachycardia, rate 127, QTc 499 (admission EKG NSR QTs 467). -Place patient in a medically necessary private room due to severity of stefan and disorganization. -Request records from her outpatient psychiatrist, Dr. Hahn, and spoke to her to coordinate care. Will need to review past med trials when records arrive , to look for potential alternatives to lithium (Depakote?) -Consult nephrology (Dr. Hays, below) re: kidney function and ability to continue lithium. 07/26 - Continue current meds - Consider switching Cogentin to Artane to better target akathisia (2) Diabetes mellitus type 2 Continue to monitor for renal insufficiency. Recent UA reveal trace protein and her BUN/CR was 20/1.35 Hemoglobin A1 C ordered -5.3, with estimated average glucose of 105. Confirm glucose checks (3) Renal insufficiency 07/24 - BUN/creat mildly elevated on admission, will repeat in AM - Patient on lithium, sees Dr. Ovalles. If BUN/creat trend up, consider consult to consider if lithium safe to continue - Renal diet 07/25 -BUN and creatinine rechecked and are unchanged. Consult nephrology (Dr. Ovalles is her outpatient, spoke with Dr. Hays who is seeing consults today) re: her kidney disease and safety of continuing lithium. Dose has been decreased by her outpatient psychiatrist, who would also like assistance in determining safety of continuing lithium. She states [place] kidney function has been fairly stable over the past few years, so could continue lithium if no other options, but may want to consider a trial of another medication if a similarly effective one is available, to try to avoid progression of kidney disease/need for dialysis. If she continues on lithium, recommended BUN and creatinine q 6 months , and urine to check for proteinuria once a year. Dr. Ovalles saw her in Jun. and will see her again in September. (4) Hyperlipemia Continue home doses of atorvastatin and cholestyramine. (5) Gastroesophageal reflux disease Omeprazole is nonformulary, so give equivalent dose of Protonix. (6) Heart disease Continue home dose of losartan. Discharge / Aftercare Planning Primary Care Physician: Name: Dr. Santos Galeano, [facility] [place] Psychiatrist: Name: Dr. Hahn, [facility] Date of Appointment: Aug 02, 2017 Time of Appointment: 2pm Therapist: Name: Katerina Valerio [facility] (07/29 1pm) Fine Grader: Name: Zulay Christianson Visit Code E&M Code: 96962 Inventory Assets Strengths: Good person,Feels for others Needs: improved physical health, financial help Risk Factors Assessment : Yes /single/: Yes Higher / Fall in social status: No Health problems: Yes Mental Health Diagnoses: Yes Substance use disorders: No Previous attempt: Yes Previous attempt;highly lethal: Yes (Mutiple attempts: hanging, burning) Previous attempt; planned: Yes Previous psychiatric stay: Yes Hopelessness: No Smoker: No Protective Factors Assessment Mu-Ism beliefs: Yes : No (But lives with long-term boyfriend) Responsible for young children: No Employed: No Stable relationships: Yes Supportive family: Yes (Speaks of 2 sisters frequently - Rachel and Genoveva) Good rapport with provider: Yes Data Vital Signs Last 24 Hrs: Date Time Temp Pulse Resp B/P (MAP) Pulse Ox O2 Delivery O2 Flow Rate FiO2 07/25/17 15:07 111 16 110/73 07/25/17 12:16 36.3 115 16 167/88 127 100/76 Meds Administered Last 24 Hrs: Meds Administered (Past 24Hrs) Medications (Trade) Dose Ordered Sig/Kelsey Route Start Time Stop Time Status Last Admin Dose Admin Ergocalciferol (Vitamin D Cap) 50,000 interunit Mo@0900 PO 07/25/17 09:00 08/24/17 08:59 07/25/17 09:50 50,000 INTERUNIT Cholestyramine Resin (Questran Powder Light) 4 gm DAILY@1400 PO 07/24/17 14:00 08/23/17 13:59 07/25/17 14:09 4 GM Risperidone (Risperdal Tab) 5 mg HS PO 07/24/17 22:00 08/23/17 21:59 07/25/17 21:17 5 MG Quetiapine Fumarate (seroQUEL TAB) 100 mg ONE ONCE PO 07/24/17 12:00 07/24/17 12:01 DC 07/24/17 12:00 100 MG Melatonin (Melatonex) 3 mg HS PO 07/24/17 22:00 08/23/17 21:59 07/25/17 21:16 3 MG Quetiapine Fumarate (seroQUEL TAB) 100 mg ONE ONCE PO 07/24/17 14:30 07/24/17 14:31 DC 07/24/17 14:38 100 MG Clonazepam (Klonopin Tab) 1 mg TODAY@1715 PO 07/24/17 17:15 07/24/17 18:00 DC 07/24/17 17:13 1 MG Haloperidol (Haldol Tab) 5 mg Q4H PRN PO 07/24/17 17:15 08/23/17 17:14 07/25/17 16:59 5 MG Lorazepam (Ativan Inj) 2 mg STK-MED ONCE .ROUTE 07/24/17 18:14 07/24/17 18:15 DC 07/24/17 18:35 2 MG Haloperidol Lactate (Haldol Inj) 10 mg TODAY@1830 IM 07/24/17 18:30 07/24/17 20:00 DC 07/24/17 18:36 10 MG Lab Results Last 24 Hrs: 07/22/17 16:03 Red Blood Count 3.87, Mean Corpuscular Volume 88.9, Mean Corpuscular Hemoglobin 28.9, Mean Corpuscular Hemoglobin Concent 32.6, Mean Platelet Volume 9.2, Neutrophils (%) (Auto) 71.9, Lymphocytes (%) (Auto) 13.5, Monocytes (%) (Auto) 10.3, Eosinophils (%) (Auto) 3.3, Basophils (%) (Auto) 0.5, Neutrophils # (Auto ) 4.31, Lymphocytes # (Auto) 0.81, Monocytes # (Auto) 0.62, Eosinophils # (Auto ) 0.20, Basophils # (Auto) 0.03 07/22/17 16:03 07/25/17 07:08 Test 07/22/17 14:50 07/22/17 16:03 07/23/17 07:17 07/25/17 07:08 Urine Color YELLOW Urine Appearance CLEAR (CLEAR) Urine pH 6.0 (4.5-7.5) Urine Specific [place] 1.005 (1.000-1.030) Urine Protein TRACE (NEG) Urine Glucose (UA) NEG (NEG) Urine Ketones NEG (NEG) Urine Occult Blood NEG (NEG) Urine Nitrite NEG (NEG) Urine Bilirubin NEG (NEG) Urine Urobilinogen NEG (NEG) Urine Leukocyte Esterase TRACE (NEG) Urine WBC (Auto) 1-5 /hpf (0-5) Urine RBC (Auto) 0-4 /hpf (0-4) Urine Hyaline Casts (Auto) 0 /lpf (0-5) Urine Epithelial Cells (Auto) 0-5 /lpf (0-5) Urine Bacteria (Auto) NEG (NEG) Urine Opiates Screen NEG (NEG) Urine Methadone, Qualitative NEG (NEG) Urine Barbiturates NEG (NEG) Urine Phencyclidine (PCP) Level NEG (NEG) Ur Amphetamine/Methamphetamine NEG (NEG) MDMA (Ecstasy) Screen NEG (NEG) Urine Benzodiazepines Screen NEG (NEG) Urine Cocaine Metabolite NEG (NEG) Urine Marijuana (THC) NEG (NEG) White Blood Count 6.00 K/uL (4.8-10.8) Red Blood Count 3.87 M/uL (4.2-5.4) Hemoglobin 11.2 g/dL (12.0-16.0) Hematocrit 34.4 % (37-47) Mean Corpuscular Volume 88.9 fL (80-100) Mean Corpuscular Hemoglobin 28.9 pg (25-34) Mean Corpuscular Hemoglobin Concent 32.6 g/dl (32-36) Platelet Count 226 K/uL (130-400) Mean Platelet Volume 9.2 fL (7.4-10.4) Neutrophils (%) (Auto) 71.9 % Lymphocytes (%) (Auto) 13.5 % Monocytes (%) (Auto) 10.3 % Eosinophils (%) (Auto) 3.3 % Basophils (%) (Auto) 0.5 % Neutrophils # (Auto) 4.31 K/uL (1.4-6.5) Lymphocytes # (Auto) 0.81 K/uL (1.2-3.4) Monocytes # (Auto) 0.62 K/uL (0.11-0.59) Eosinophils # (Auto) 0.20 K/uL (0-0.5) Basophils # (Auto) 0.03 K/uL (0-0.2) RDW Standard Deviation 48.9 fL (36.4-46.3) RDW Coefficient of Variation 15.1 % (11.5-14.5) Immature Granulocyte % (Auto) 0.5 % Immature Granulocyte # (Auto) 0.03 K/uL (0.00-0.02) Anion Gap 7.0 mmol/L (3-11) Estimated Average Glucose 105 mg/dl Hemoglobin A1c 5.3 % (4.5-5.6) Calcium Level 9.8 mg/dl (8.5-10.1) Total Bilirubin 0.3 mg/dl (0.2-1) Direct Bilirubin < 0.1 mg/dl (0-0.2) Aspartate Amino Transf (AST/SGOT) 17 U/L (15-37) Alanine Aminotransferase (ALT/SGPT) 33 U/L (12-78) Alkaline Phosphatase 121 U/L (45-117) Total Protein 8.2 gm/dl (6.4-8.2) Albumin 3.9 gm/dl (3.4-5.0) Thyroid Stimulating Hormone (TSH) 3.260 uIu/ml (0.300-4.500) Salicylates Level < 1.7 mg/dl (2.8-20) Acetaminophen Level < 2 ug/ml (10-30) Ethyl Alcohol mg/dL < 3.0 mg/dl (0-3) Fasting Glucose 129 mg/dl (70-99) Triglycerides Level 151 mg/dl (0-150) Cholesterol Level 165 mg/dl (0-200) HDL Cholesterol 56 mg/dl LDL Cholesterol, Calculated 79 mg/dl VLDL Cholesterol, Calculated 30 mg/dl Cholesterol/HDL Ratio 2.9 [place] Level 0.6 mMOL/L (0.6-1.2) Est Creatinine Clear Calc Drug Dose 35.2 ml/min Estimated GFR () 47.2 Estimated GFR (Non- 40.7 BUN/Creatinine Ratio 14.9 (10-20)
[2017-07-26 10:43] VITALS: BP_SYST 123; BP_SYST 134; BP_DIAS 76; BP_DIAS 79; PULSE 108; PULSE 109; TEMP 36.9
[2017-07-26] MEDS: CHOLESTYRAMINE LIGHT 4 GM PKT PO SCH (13:53)
[2017-07-26] MEDS: ZOLPIDEM TARTRATE 5 MG TAB PO SCH (21:05)
[2017-07-26] MEDS: LITHIUM CARBONATE 450 MG TABCR PO SCH (21:06)
[2017-07-26] MEDS: THIOTHIXENE 1 MG CAP PO SCH (21:07)
[2017-07-26] MEDS: MELATONIN 3 MG PO SCH (21:07)
[2017-07-26] MEDS: ATORVASTATIN 10 MG TAB PO SCH (21:07)
[2017-07-27 06:58] VITALS: BP_SYST 116; BP_SYST 159; BP_DIAS 82; BP_DIAS 90; PULSE 121; PULSE 129; TEMP 36.8
[2017-07-27] MEDS: BENZTROPINE MESYLATE 1 MG TAB PO SCH ×2 (07:54→22:00)
[2017-07-27] MEDS: OMEGA-3 (PURIFIED FISH OIL) 1 GM CAP PO SCH ×2 (07:55→22:00)
[2017-07-27] MEDS: CEROVITE ADV FORMULA TAB PO SCH (07:55)
[2017-07-27] MEDS: THIOTHIXENE 5 MG CAP PO SCH ×2 (07:55→22:00)
[2017-07-27] MEDS: LOSARTAN POTASSIUM 25 MG TAB PO SCH (07:55)
[2017-07-27] MEDS: PANTOprazole SOD 40 MG TAB PO SCH (07:56)
[2017-07-27] MEDS: RISPERIDONE 1 MG TAB PO SCH ×2 (07:56→22:00)
[2017-07-27] MEDS: MONTELUKAST SOD 10 MG TAB PO SCH (07:56)
[2017-07-27] MEDS: TOCOPHERYL, DL-ALPHA 400 INTER.UNIT CAP PO SCH (07:57)
[2017-07-27] MEDS: CLONAZEPAM 1 MG TAB PO SCH ×2 (07:59→22:00)
--- NOTE | 2017-07-27 10:41 | Psychiatric Progress Notes ---
Progress Note Date of Service Jul 27, 2017. Interval History The patient is a 67 year old white female with multiple medical diagnosis and a longstanding history of Schizoaffective Disorder Bipolar Type with prior psychiatric hospitalizations. She is admitted voluntarily after lithium was decreased, and she developed psychotic stefan. Chief Complaint "Pretty good ". Subjective Patient was seen & assessed interval progress reviewed with Treatment Team. Staff report the patient was disorganized yesterday, requiring assistance from staff to shower and dress, and had to be redirected for putting rice crispies in her hair. Her boyfriend Alex visited, and is very supportive. She had an episode of fecal incontinence and required staff assistance to clean up. She has been less intrusive with others. On my assessment today, she states that she is spending her time "finding things to help me," gesturing to a stress ball and a stack of books in her room. When asked about her sleep, she states she had a bowel movement last night, and urinary incontinence this morning. She denies suicidal thoughts, but reports hallucinations, although states she cannot recall any more about them, "I try to forget them, catastrophes, and I cannot help anybody." She is oriented to the year, month, date, but not the day. Her goals of treatment are "to help other people, just by talking with them, go to groups and listen, try to give some feedback." She wants to know if people who attempt suicide end up dying by suicide, and talks about her history of suicide attempts many years ago. She feels she is improving, and is hoping to be able to be discharged on Tuesday. Sleep Information Total Hours of Sleep: 7.00 Meal Information Percent of Breakfast Consumed: 100 Percent of Lunch Consumed: 50 Percent of Dinner Consumed: 100 Mental Status Exam During interview pt is: alert and oriented, cooperative Appearance: other (Obese, seated in no acute distress) Eye contact is: good Motor behavior is: steady gait & station Speech: normal in rate, rhythm & volume (Dysarthric, tongue protrusion) Affect: euthymic Mood is: other ("Pretty good") Thought process: goal directed (At times answers with unrelated information, but most answers are goal directed) Thought content: cognitive distortions Suicidal thought are: denied Homicidal thoughts are: denied Hallucinations: other (Reports hallucinations, but unable to give any further information) Cognition: language grossly intact, other (Memory and attention impaired) Intelligence estimated to be: below average (intellectual disabilities) Insight: limited Judgement: limited Summary of Past History Spoke with Dr. Hahn and reviewed patient's history, lithium has been decreased by around 150mg twice in the past year, due to CKD and chronic diarrhea, not sure when last decreased exactly. Her GFR has been decreasing over the years. No other med changes have been made recently. There is also a communication challenge, in part due to her hearing difficulties. She is chronically distressed and rarely feels good, has a significant trauma history. Impression Stefan improving, slept through the night, and thoughts are more organized. She is requiring staff assistance for ADLs, including toileting, showering, and dressing. She continues to require inpatient treatment due to the severity of her psychotic and manic symptoms and inability to provide for her own basic needs independently in her current state. Plan (1) Schizoaffective disorder, chronic condition with acute exacerbation The patient is admitted to [facility] ([facility]) on q 15 min checks (behavioral with suicide precautions) for safety. The patient will participate in group, recreational and milieu therapies and will be offered additional individual and family sessions as clinically appropriate. - Continue [place] 450 mg q HS. Hesitant to increase without records due to reported hx of renal insufficiency - Continue Sertraline 150 mg with plan to increase. Will add Sertraline 50 mg today as one time dose and begin Sertraline 200 mg in am. - Continue Risperdal. Additional 1 mg po BID prn A/A - Continue Navane. Consider split dose. - Await OP treatment records - Reviewed fasting labs from this am. 07/24 - Increase Risperdal to 1 mg. AM and 5 mg. HS - Increase Navane to include 5 mg AM - EKG tomorrow AM - BUN/creat in AM - Excuse from groups - Fall precautions - Increase Klonopin to 1 mg BID 07/25 -Continue risperidone 1 mg every morning and 5 mg nightly, thiothixene 5 mg every morning and 20 mg nightly, zolpidem 5 mg nightly, and lithium 450 mg nightly. -Continue risperidone 1 mg twice daily as needed. -If sleep does not regulate, consider consolidating antipsychotics to bedtime. -Continue decreased dose of sertraline, 100 mg daily, and decreased further if stefan does not improve. -BUN and creatinine rechecked today and unchanged from admission (BUN 20, creatinine 1.36). EKG sinus tachycardia, rate 127, QTc 499 (admission EKG NSR QTs 467). -Place patient in a medically necessary private room due to severity of stefan and disorganization. -Request records from her outpatient psychiatrist, Dr. Hahn, and spoke to her to coordinate care. Will need to review past med trials when records arrive , to look for potential alternatives to lithium (Depakote?) -Consult nephrology (Dr. Hays, below) re: kidney function and ability to continue lithium. 07/26 - Continue current meds - Consider switching Cogentin to Artane to better target akathisia 07/27 -Continue current medications, as patient continues to improve. She has follow-up appointments with her therapist on Tuesday, and psychiatrist on July. She will also need a follow-up appointment with her speech therapy teacher. (2) Diabetes mellitus type 2 Continue to monitor for renal insufficiency. Recent UA reveal trace protein and her BUN/CR was 20/1.35 Hemoglobin A1 C ordered -5.3, with estimated average glucose of 105. Confirm glucose checks (3) Renal insufficiency 07/24 - BUN/creat mildly elevated on admission, will repeat in AM - Patient on lithium, sees Dr. Ovalles. If BUN/creat trend up, consider consult to consider if lithium safe to continue - Renal diet 07/25 -BUN and creatinine rechecked and are unchanged. Consult nephrology (Dr. Ovalles is her outpatient, spoke with Dr. Hays who is seeing consults today) re: her kidney disease and safety of continuing lithium. Dose has been decreased by her outpatient psychiatrist, who would also like assistance in determining safety of continuing lithium. She states Brenda's kidney function has been fairly stable over the past few years, so could continue lithium if no other options, but may want to consider a trial of another medication if a similarly effective one is available, to try to avoid progression of kidney disease/need for dialysis. If she continues on lithium, recommended BUN and creatinine q 6 months , and urine to check for proteinuria once a year. Dr. Ovalles saw her in Jun. and will see her again in September. (4) Hyperlipemia Continue home doses of atorvastatin and cholestyramine. (5) Gastroesophageal reflux disease Omeprazole is nonformulary, so give equivalent dose of Protonix. (6) Heart disease Continue home dose of losartan. Discharge / Aftercare Planning Primary Care Physician: Name: Dr. Santos Galeano, [facility] [place] [facility] Psychiatrist: Name: Dr. Hahn, [facility] Date of Appointment: Aug 02, 2017 Time of Appointment: 2pm Therapist: Name: Katerina Valerio [facility] (07/29 1pm) Legal Paraprofessional: Name: Zulay Christianson Visit Code E&M Code: 89920 Inventory Assets Strengths: Good person,Feels for others Needs: improved physical health, financial help Risk Factors Assessment : Yes /single/: Yes Higher / Fall in social status: No Health problems: Yes Mental Health Diagnoses: Yes Substance use disorders: No Previous attempt: Yes Previous attempt;highly lethal: Yes (Mutiple attempts: hanging, burning) Previous attempt; planned: Yes Previous psychiatric stay: Yes Hopelessness: No Smoker: No Protective Factors Assessment Latter Day beliefs: Yes : No (But lives with long-term boyfriend) Responsible for young children: No Employed: No Stable relationships: Yes Supportive family: Yes (Speaks of 2 sisters frequently - Rachel and Genoveva) Good rapport with provider: Yes Data Vital Signs Last 24 Hrs: Date Time Temp Pulse Resp B/P (MAP) Pulse Ox O2 Delivery O2 Flow Rate FiO2 07/27/17 06:58 36.8 121 18 116/82 129 159/90 07/26/17 10:43 36.9 108 16 134/79 109 123/76
[2017-07-27] MEDS: CHOLESTYRAMINE LIGHT 4 GM PKT PO SCH (14:17)
[2017-07-27] MEDS: TRAMADOL HCL 50 MG TAB PO PRN ×2 (16:45→21:35)
[2017-07-27] MEDS: THIOTHIXENE 1 MG CAP PO SCH (22:00)
[2017-07-27] MEDS: LITHIUM CARBONATE 450 MG TABCR PO SCH (22:00)
[2017-07-27] MEDS: MELATONIN 3 MG PO SCH (22:00)
[2017-07-27] MEDS: ATORVASTATIN 10 MG TAB PO SCH (22:00)
[2017-07-27] MEDS: ZOLPIDEM TARTRATE 5 MG TAB PO SCH (22:00)
[2017-07-28] MEDS: HALOPERIDOL 5 MG TAB PO PRN ×2 (00:04→10:41)
[2017-07-28] MEDS: TRAMADOL HCL 50 MG TAB PO PRN ×3 (02:29→18:13)
[2017-07-28 06:45] VITALS: BP_SYST 130; BP_SYST 155; BP_DIAS 82; BP_DIAS 83; PULSE 102; PULSE 103; TEMP 36.8
[2017-07-28] MEDS: BENZTROPINE MESYLATE 1 MG TAB PO SCH (07:37)
[2017-07-28] MEDS: LOSARTAN POTASSIUM 25 MG TAB PO SCH (07:37)
[2017-07-28] MEDS: CLONAZEPAM 1 MG TAB PO SCH ×2 (07:38→21:27)
[2017-07-28] MEDS: TOCOPHERYL, DL-ALPHA 400 INTER.UNIT CAP PO SCH (07:38)
[2017-07-28] MEDS: OMEGA-3 (PURIFIED FISH OIL) 1 GM CAP PO SCH ×2 (07:38→21:28)
[2017-07-28] MEDS: THIOTHIXENE 5 MG CAP PO SCH ×2 (07:38→21:27)
[2017-07-28] MEDS: PANTOprazole SOD 40 MG TAB PO SCH (07:38)
[2017-07-28] MEDS: CEROVITE ADV FORMULA TAB PO SCH (07:38)
[2017-07-28] MEDS: RISPERIDONE 1 MG TAB PO SCH (07:39)
[2017-07-28] MEDS: MONTELUKAST SOD 10 MG TAB PO SCH (07:39)
[2017-07-28] MEDS ORDERED: TRAM-10 PO (10:22)
--- NOTE | 2017-07-28 10:41 | Psychiatric Progress Notes ---
Progress Note Date of Service Jul 28, 2017. Interval History The patient is a 67 year old white female with multiple medical diagnosis and a longstanding history of Schizoaffective Disorder Bipolar Type with prior psychiatric hospitalizations. She is admitted voluntarily after lithium was decreased, and she developed psychotic stefan. Chief Complaint "I'm tired. ". Subjective Patient was seen & assessed interval progress reviewed with Treatment Team. The patient says that she is tired today because she only slept 3 hours last night. she is also worried because on the last 2 mornings, there has been blood in the toilet water and she's not sure if it is coming for urine or bowel. She also continues to complain of restless legs. Her mood is "fine" and she is having no SI/HI and denies any hallucinations. Nursing reports that she could not settle for sleep last night despite having taken a prn of haldol. She is asking appropriate questions about what meds she is taking and if there is anything new. She is pleasant and cooperative. She reports that when she was on higher doses of lithium she didn't feel well. Review of Systems Constitutional: + fatigue ENT: + hearing loss Respiratory: No cough, No sputum, No wheezing, No shortness of breath, No dyspnea on exertion, No dyspnea at rest, No hemoptysis, No problem reported Cardiovascular: No chest pain, No orthopnea, No PND, No edema, No claudication , No palpitations, No problem reported Abdomen: + problem reported (blood in toilet) Musculoskeletal: + problem reported (pain in all of her joints and back) Neurologic: No memory loss, No paralysis, No weakness, No numbness/tingling, No vertigo, No balance problems, No problem reported Psychiatric: + insomnia Integumentary: No rash, No itch, No new/changing skin lesions, No color change , No bleeding, No problem reported Sleep Information Total Hours of Sleep: 3.00 Meal Information Percent of Breakfast Consumed: 100 Percent of Lunch Consumed: 100 Percent of Dinner Consumed: 75 Mental Status Exam During interview pt is: alert and oriented, cooperative Appearance: disheveled Eye contact is: good Motor behavior is: steady gait & station Speech: normal in rate, rhythm & volume (Dysarthric, tongue protrusion) Affect: euthymic Mood is: other ("Pretty good") Thought process: goal directed Thought content: cognitive distortions Suicidal thought are: denied Homicidal thoughts are: denied Hallucinations: other (Reports hallucinations, but unable to give any further information) Cognition: language grossly intact, other (Memory and attention impaired) Intelligence estimated to be: below average (intellectual disabilities) Insight: limited Judgement: limited Summary of Past History Spoke with Dr. Hahn and reviewed patient's history, lithium has been decreased by around 150mg twice in the past year, due to CKD and chronic diarrhea, not sure when last decreased exactly. Her GFR has been decreasing over the years. No other med changes have been made recently. There is also a communication challenge, in part due to her hearing difficulties. She is chronically distressed and rarely feels good, has a significant trauma history. Impression Sleep impaired again last night, sleeping only 3 hours. will adjust meds to include increasing Navane to 5 mg AM and 25 mg HS, Risperdal to 6 mg HS. Will also try DC cogentin in favor of Artane. Will first give one time dose of 5 mg. to see if it impacts her restlessness. Will order UA and stool for OB due to reports of blood in the toilet. Plan (1) Schizoaffective disorder, chronic condition with acute exacerbation The patient is admitted to [facility] on q 15 min checks (behavioral with suicide precautions) for safety. The patient will participate in group, recreational and milieu therapies and will be offered additional individual and family sessions as clinically appropriate. - Continue [place] 450 mg q HS. Hesitant to increase without records due to reported hx of renal insufficiency - Continue Sertraline 150 mg with plan to increase. Will add Sertraline 50 mg today as one time dose and begin Sertraline 200 mg in am. - Continue Risperdal. Additional 1 mg po BID prn A/A - Continue Navane. Consider split dose. - Await OP treatment records - Reviewed fasting labs from this am. 07/24 - Increase Risperdal to 1 mg. AM and 5 mg. HS - Increase Navane to include 5 mg AM - EKG tomorrow AM - BUN/creat in AM - Excuse from groups - Fall precautions - Increase Klonopin to 1 mg BID 07/25 -Continue risperidone 1 mg every morning and 5 mg nightly, thiothixene 5 mg every morning and 20 mg nightly, zolpidem 5 mg nightly, and lithium 450 mg nightly. -Continue risperidone 1 mg twice daily as needed. -If sleep does not regulate, consider consolidating antipsychotics to bedtime. -Continue decreased dose of sertraline, 100 mg daily, and decreased further if stefan does not improve. -BUN and creatinine rechecked today and unchanged from admission (BUN 20, creatinine 1.36). EKG sinus tachycardia, rate 127, QTc 499 (admission EKG NSR QTs 467). -Place patient in a medically necessary private room due to severity of stefan and disorganization. -Request records from her outpatient psychiatrist, Dr. Hahn, and spoke to her to coordinate care. Will need to review past med trials when records arrive , to look for potential alternatives to lithium (Depakote?) -Consult nephrology (Dr. Hays, below) re: kidney function and ability to continue lithium. 07/26 - Continue current meds - Consider switching Cogentin to Artane to better target akathisia 07/27 -Continue current medications, as patient continues to improve. She has follow-up appointments with her therapist on Tuesday, and psychiatrist on July. She will also need a follow-up appointment with her galley worker. 07/28 - Due to impaired sleep will increase HS risperdal to 6, navane to 25 - DC cogentin in favor of a trial of Artane for restlessness - UA and Stool for OB due to reports of blood in toilet (2) Diabetes mellitus type 2 Continue to monitor for renal insufficiency. Recent UA reveal trace protein and her BUN/CR was 20/1.35 Hemoglobin A1 C ordered -5.3, with estimated average glucose of 105. Confirm glucose checks (3) Renal insufficiency 07/24 - BUN/creat mildly elevated on admission, will repeat in AM - Patient on lithium, sees Dr. Ovalles. If BUN/creat trend up, consider consult to consider if lithium safe to continue - Renal diet 07/25 -BUN and creatinine rechecked and are unchanged. Consult nephrology (Dr. Ovalles is her outpatient, spoke with Dr. Hays who is seeing consults today) re: her kidney disease and safety of continuing lithium. Dose has been decreased by her outpatient psychiatrist, who would also like assistance in determining safety of continuing lithium. She states Brenad's kidney function has been fairly stable over the past few years, so could continue lithium if no other options, but may want to consider a trial of another medication if a similarly effective one is available, to try to avoid progression of kidney disease/need for dialysis. If she continues on lithium, recommended BUN and creatinine q 6 months , and urine to check for proteinuria once a year. Dr. Ovalles saw her in Jun. and will see her again in September. (4) Hyperlipemia Continue home doses of atorvastatin and cholestyramine. (5) Gastroesophageal reflux disease Omeprazole is nonformulary, so give equivalent dose of Protonix. (6) Heart disease Continue home dose of losartan. Discharge / Aftercare Planning Primary Care Physician: Name: Dr. Santos Galeano, [facility] [place] [facility] Psychiatrist: Name: Dr. Hahn, [facility] Date of Appointment: Aug 02, 2017 Time of Appointment: 2pm Therapist: Name: Katerina Valerio [facility] (07/29 1pm) Care Taker: Name: Zulay Christianson Visit Code E&M Code: 91166 Inventory Assets Strengths: Good person,Feels for others Needs: improved physical health, financial help Risk Factors Assessment : Yes /single/: Yes Higher / Fall in social status: No Health problems: Yes Mental Health Diagnoses: Yes Substance use disorders: No Previous attempt: Yes Previous attempt;highly lethal: Yes (Mutiple attempts: hanging, burning) Previous attempt; planned: Yes Previous psychiatric stay: Yes Hopelessness: No Smoker: No Protective Factors Assessment Bahai beliefs: Yes : No (But lives with long-term boyfriend) Responsible for young children: No Employed: No Stable relationships: Yes Supportive family: Yes (Speaks of 2 sisters frequently - Rachel and Genoveva) Good rapport with provider: Yes Data Vital Signs Last 24 Hrs: Date Time Temp Pulse Resp B/P (MAP) Pulse Ox O2 Delivery O2 Flow Rate FiO2 07/28/17 06:45 36.8 102 20 155/83 103 130/82 Meds Administered Last 24 Hrs: Meds Administered (Past 24Hrs) Medications (Trade) Dose Ordered Sig/Kelsey Route Start Time Stop Time Status Last Admin Dose Admin Tramadol HCl (Ultram Tab) 50 mg Q4H PRN PO 07/27/17 16:00 08/26/17 15:59 07/28/17 06:58 50 MG Lab Results Last 24 Hrs: 07/22/17 16:03 Red Blood Count 3.87, Mean Corpuscular Volume 88.9, Mean Corpuscular Hemoglobin 28.9, Mean Corpuscular Hemoglobin Concent 32.6, Mean Platelet Volume 9.2, Neutrophils (%) (Auto) 71.9, Lymphocytes (%) (Auto) 13.5, Monocytes (%) (Auto) 10.3, Eosinophils (%) (Auto) 3.3, Basophils (%) (Auto) 0.5, Neutrophils # (Auto ) 4.31, Lymphocytes # (Auto) 0.81, Monocytes # (Auto) 0.62, Eosinophils # (Auto ) 0.20, Basophils # (Auto) 0.03 07/22/17 16:03 07/25/17 07:08 Test 07/22/17 14:50 07/22/17 16:03 07/23/17 07:17 07/25/17 07:08 Urine Color YELLOW Urine Appearance CLEAR (CLEAR) Urine pH 6.0 (4.5-7.5) Urine Specific [place] 1.005 (1.000-1.030) Urine Protein TRACE (NEG) Urine Glucose (UA) NEG (NEG) Urine Ketones NEG (NEG) Urine Occult Blood NEG (NEG) Urine Nitrite NEG (NEG) Urine Bilirubin NEG (NEG) Urine Urobilinogen NEG (NEG) Urine Leukocyte Esterase TRACE (NEG) Urine WBC (Auto) 1-5 /hpf (0-5) Urine RBC (Auto) 0-4 /hpf (0-4) Urine Hyaline Casts (Auto) 0 /lpf (0-5) Urine Epithelial Cells (Auto) 0-5 /lpf (0-5) Urine Bacteria (Auto) NEG (NEG) Urine Opiates Screen NEG (NEG) Urine Methadone, Qualitative NEG (NEG) Urine Barbiturates NEG (NEG) Urine Phencyclidine (PCP) Level NEG (NEG) Ur Amphetamine/Methamphetamine NEG (NEG) MDMA (Ecstasy) Screen NEG (NEG) Urine Benzodiazepines Screen NEG (NEG) Urine Cocaine Metabolite NEG (NEG) Urine Marijuana (THC) NEG (NEG) White Blood Count 6.00 K/uL (4.8-10.8) Red Blood Count 3.87 M/uL (4.2-5.4) Hemoglobin 11.2 g/dL (12.0-16.0) Hematocrit 34.4 % (37-47) Mean Corpuscular Volume 88.9 fL (80-100) Mean Corpuscular Hemoglobin 28.9 pg (25-34) Mean Corpuscular Hemoglobin Concent 32.6 g/dl (32-36) Platelet Count 226 K/uL (130-400) Mean Platelet Volume 9.2 fL (7.4-10.4) Neutrophils (%) (Auto) 71.9 % Lymphocytes (%) (Auto) 13.5 % Monocytes (%) (Auto) 10.3 % Eosinophils (%) (Auto) 3.3 % Basophils (%) (Auto) 0.5 % Neutrophils # (Auto) 4.31 K/uL (1.4-6.5) Lymphocytes # (Auto) 0.81 K/uL (1.2-3.4) Monocytes # (Auto) 0.62 K/uL (0.11-0.59) Eosinophils # (Auto) 0.20 K/uL (0-0.5) Basophils # (Auto) 0.03 K/uL (0-0.2) RDW Standard Deviation 48.9 fL (36.4-46.3) RDW Coefficient of Variation 15.1 % (11.5-14.5) Immature Granulocyte % (Auto) 0.5 % Immature Granulocyte # (Auto) 0.03 K/uL (0.00-0.02) Anion Gap 7.0 mmol/L (3-11) Estimated Average Glucose 105 mg/dl Hemoglobin A1c 5.3 % (4.5-5.6) Calcium Level 9.8 mg/dl (8.5-10.1) Total Bilirubin 0.3 mg/dl (0.2-1) Direct Bilirubin < 0.1 mg/dl (0-0.2) Aspartate Amino Transf (AST/SGOT) 17 U/L (15-37) Alanine Aminotransferase (ALT/SGPT) 33 U/L (12-78) Alkaline Phosphatase 121 U/L (45-117) Total Protein 8.2 gm/dl (6.4-8.2) Albumin 3.9 gm/dl (3.4-5.0) Thyroid Stimulating Hormone (TSH) 3.260 uIu/ml (0.300-4.500) Salicylates Level < 1.7 mg/dl (2.8-20) Acetaminophen Level < 2 ug/ml (10-30) Ethyl Alcohol mg/dL < 3.0 mg/dl (0-3) Fasting Glucose 129 mg/dl (70-99) Triglycerides Level 151 mg/dl (0-150) Cholesterol Level 165 mg/dl (0-200) HDL Cholesterol 56 mg/dl LDL Cholesterol, Calculated 79 mg/dl VLDL Cholesterol, Calculated 30 mg/dl Cholesterol/HDL Ratio 2.9 [place] Level 0.6 mMOL/L (0.6-1.2) Est Creatinine Clear Calc Drug Dose 35.2 ml/min Estimated GFR () 47.2 Estimated GFR (Non- 40.7 BUN/Creatinine Ratio 14.9 (10-20)
[2017-07-28] MEDS ORDERED: TRIHEXYPHENIDYL HCL 2 MG TAB PO ONE (10:45)
[2017-07-28] MEDS: CHOLESTYRAMINE LIGHT 4 GM PKT PO SCH (14:48)
[2017-07-28] MEDS: LITHIUM CARBONATE 450 MG TABCR PO SCH (21:27)
[2017-07-28] MEDS: ATORVASTATIN 10 MG TAB PO SCH (21:27)
[2017-07-28] MEDS: MELATONIN 3 MG PO SCH (21:27)
[2017-07-28] MEDS: ZOLPIDEM TARTRATE 5 MG TAB PO SCH (21:27)
[2017-07-28] MEDS: RISPERIDONE 3 MG TAB PO SCH (21:28)
[2017-07-29] MEDS: HALOPERIDOL 5 MG TAB PO PRN (00:16)
[2017-07-29] MEDS: TRAMADOL HCL 50 MG TAB PO PRN ×2 (00:17→09:34)
[2017-07-29] MEDS: hydrOXYzine HCL 25 MG TAB PO PRN (00:17)
[2017-07-29 06:46] VITALS: BP_SYST 105; BP_SYST 147; BP_DIAS 78; BP_DIAS 88; PULSE 108; PULSE 98; TEMP 36.6
[2017-07-29] MEDS: CLONAZEPAM 1 MG TAB PO SCH ×2 (08:36→21:28)
[2017-07-29] MEDS: PANTOprazole SOD 40 MG TAB PO SCH (08:37)
[2017-07-29] MEDS: OMEGA-3 (PURIFIED FISH OIL) 1 GM CAP PO SCH ×2 (08:37→21:33)
[2017-07-29] MEDS: CEROVITE ADV FORMULA TAB PO SCH (08:37)
[2017-07-29] MEDS: THIOTHIXENE 5 MG CAP PO SCH ×2 (08:37→21:32)
[2017-07-29] MEDS: RISPERIDONE 1 MG TAB PO SCH (08:37)
[2017-07-29] MEDS: TOCOPHERYL, DL-ALPHA 400 INTER.UNIT CAP PO SCH (08:37)
[2017-07-29] MEDS: MONTELUKAST SOD 10 MG TAB PO SCH (08:37)
[2017-07-29] MEDS: LOSARTAN POTASSIUM 25 MG TAB PO SCH (08:37)
--- NOTE | 2017-07-29 10:14 | Psych Management Progress Note ---
Psychiatry Miscellaneous Date of Service: Jul 29, 2017. Patient seen, MS assessed. Rates mood as thumbs down. Encouraged cooperation with care and treatment plan as outlined by allied health prescriber.
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
[2017-07-29] MEDS: CHOLESTYRAMINE LIGHT 4 GM PKT PO SCH (14:14)
[2017-07-29 20:10] VITALS: BP 149/79; PULSE 114
[2017-07-29] MEDS: ZOLPIDEM TARTRATE 5 MG TAB PO SCH (21:29)
[2017-07-29] MEDS: LITHIUM CARBONATE 450 MG TABCR PO SCH (21:30)
[2017-07-29] MEDS: MELATONIN 3 MG PO SCH (21:31)
[2017-07-29] MEDS: ATORVASTATIN 10 MG TAB PO SCH (21:31)
[2017-07-29] MEDS: RISPERIDONE 3 MG TAB PO SCH (21:33)
[2017-07-29] MEDS: TRIHEXYPHENIDYL HCL 2 MG TAB PO SCH (21:52)
[2017-07-30 06:51] VITALS: BP_SYST 103; BP_SYST 136; BP_DIAS 62; BP_DIAS 69; PULSE 92; PULSE 98; TEMP 36.6
[2017-07-30] MEDS: THIOTHIXENE 5 MG CAP PO SCH ×2 (08:20→21:55)
[2017-07-30] MEDS: TRIHEXYPHENIDYL HCL 2 MG TAB PO SCH ×2 (08:20→21:54)
[2017-07-30] MEDS: LOSARTAN POTASSIUM 25 MG TAB PO SCH (08:20)
[2017-07-30] MEDS: CLONAZEPAM 1 MG TAB PO SCH ×2 (08:20→21:54)
[2017-07-30] MEDS: CEROVITE ADV FORMULA TAB PO SCH (08:20)
[2017-07-30] MEDS: OMEGA-3 (PURIFIED FISH OIL) 1 GM CAP PO SCH ×2 (08:21→21:55)
[2017-07-30] MEDS: TOCOPHERYL, DL-ALPHA 400 INTER.UNIT CAP PO SCH (08:21)
[2017-07-30] MEDS: PANTOprazole SOD 40 MG TAB PO SCH (08:21)
[2017-07-30] MEDS: MONTELUKAST SOD 10 MG TAB PO SCH (08:21)
[2017-07-30] MEDS: RISPERIDONE 1 MG TAB PO SCH (08:21)
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
[2017-07-30] MEDS: HALOPERIDOL 5 MG TAB PO PRN ×2 (10:16→15:53)
[2017-07-30] MEDS: CHOLESTYRAMINE LIGHT 4 GM PKT PO SCH (14:16)
[2017-07-30] MEDS: ZOLPIDEM TARTRATE 5 MG TAB PO SCH (21:53)
[2017-07-30] MEDS: LITHIUM CARBONATE 450 MG TABCR PO SCH (21:54)
[2017-07-30] MEDS: MELATONIN 3 MG PO SCH (21:54)
[2017-07-30] MEDS: ATORVASTATIN 10 MG TAB PO SCH (21:54)
[2017-07-30] MEDS: RISPERIDONE 3 MG TAB PO SCH (21:55)
[2017-07-30 22:25] VITALS: BP 120/64; PULSE 109
[2017-07-31] MEDS: HALOPERIDOL 5 MG TAB PO PRN ×3 (00:06→14:36)
[2017-07-31] MEDS: TRAMADOL HCL 50 MG TAB PO PRN ×3 (00:10→17:06)
[2017-07-31] MEDS: hydrOXYzine HCL 25 MG TAB PO PRN (00:11)
[2017-07-31 06:53] VITALS: BP_SYST 136; BP_SYST 144; BP_DIAS 80; BP_DIAS 88; PULSE 102; PULSE 112; TEMP 37
[2017-07-31] MEDS: CLONAZEPAM 1 MG TAB PO SCH ×2 (07:22→20:43)
[2017-07-31] MEDS: LOSARTAN POTASSIUM 25 MG TAB PO SCH (07:22)
[2017-07-31] MEDS: TRIHEXYPHENIDYL HCL 2 MG TAB PO SCH ×2 (07:22→20:42)
[2017-07-31] MEDS: CEROVITE ADV FORMULA TAB PO SCH (07:22)
[2017-07-31] MEDS: PANTOprazole SOD 40 MG TAB PO SCH (07:23)
[2017-07-31] MEDS: OMEGA-3 (PURIFIED FISH OIL) 1 GM CAP PO SCH ×2 (07:23→20:43)
[2017-07-31] MEDS: THIOTHIXENE 5 MG CAP PO SCH ×2 (07:23→20:43)
[2017-07-31] MEDS: MONTELUKAST SOD 10 MG TAB PO SCH (07:24)
[2017-07-31] MEDS: RISPERIDONE 1 MG TAB PO SCH (07:24)
[2017-07-31] MEDS: TOCOPHERYL, DL-ALPHA 400 INTER.UNIT CAP PO SCH (07:24)
--- NOTE | 2017-07-31 08:03 | Psychiatric Progress Notes ---
Progress Note Date of Service Jul 31, 2017. Interval History The patient is a 67 year old white female with multiple medical diagnosis and a longstanding history of Schizoaffective Disorder Bipolar Type with prior psychiatric hospitalizations. She is admitted voluntarily after lithium was decreased, and she developed psychotic stefan. Chief Complaint "I need scented lotion". Subjective Patient was seen & assessed interval progress reviewed with nursing. Staff report the patient had a fall last night where she tripped over the exercise bike. No injuries were evident, although she reported soreness over her ribs. Vital signs were normal. She slept very poorly, refused to go to bed even with staff encouragement, and was engaging in various activities, including making copies of pages she ripped from magazines to give to staff. She was talking loudly and requested multiple as needed medications, including hydroxyzine and haloperidol. She only slept 3.75 hours, and staff have tried multiple times this morning to get her settled for sleep, but she quickly gets up. Staff have been using written questions to communicate with her due to her severe hearing difficulties. On my assessment, she is seated on her bed, with the radio turned up loud on static. Used written questions to communicate with her, and she states she is doing well today. She feels that she slept adequately last night, stating that 3 hours is good for her. She denies concerns about her mood , but then starts wailing that she has pain in her "kidneys, uterus, and brain. " When asked how her side is feeling after her fall last night, she states that it hurts, and points to her right rib cage. On exam, no bruising or bony abnormalities visible, and no pain to light palpation. Exam limited by obesity. She indicates willingness to have an x-ray taken of her ribs. Denies any other areas that were affected by her fall. She then starts talking about needing scented lotions, makeup, and a chair, then states she wants orange juice , and follows this physician to the nurse's station, proceeds to stand outside the window staring at staff. Sleep Information Total Hours of Sleep: 3.75 Meal Information Percent of Breakfast Consumed: 80 Percent of Lunch Consumed: 80 Percent of Dinner Consumed: 100 Mental Status Exam During interview pt is: alert and oriented (To self, hospital, year and day), cooperative (Partially, but limited by hearing difficulties) Appearance: disheveled (Obese, dressed in 2 hospital gowns, eyes proptotic, hair disheveled and unclean, malodorous) Eye contact is: good Motor behavior is: other (Slightly unsteady on her feet, tongue protrusion) Speech: loud (Yelling at times, dysarthric) Affect: labile (Switches rapidly and frequently from upset and wailing to euthymic, smiling) Mood is: other ("Good") Thought process: goal directed, incoherent (At times, other times goal-directed ) Thought content: other (Focused on multiple items that she is requesting) Suicidal thought are: denied Homicidal thoughts are: denied Hallucinations: denies auditory, denies visual Cognition: other (all spheres impaired) Intelligence estimated to be: below average (intellectual disabilities) Insight: limited Judgement: limited Summary of Past History Spoke with Dr. Hahn and reviewed patient's history, lithium has been decreased by around 150mg twice in the past year, due to CKD and chronic diarrhea, not sure when last decreased exactly. Her GFR has been decreasing over the years. No other med changes have been made recently. There is also a communication challenge, in part due to her hearing difficulties. She is chronically distressed and rarely feels good, has a significant trauma history. Impression Sleep remains impaired, and continues to have labile mood, disorientation, and disorganized and incoherent speech at times. Appears delirious at times. She felt the Artane was helpful for her restlessness, so replaced cogentin with Artane. Will contact Dr. Hahn on Tuesday to review options for a different mood stabilizer in place of lithium. Plan (1) Schizoaffective disorder, chronic condition with acute exacerbation The patient is admitted to [facility] ([facility]) on q 15 min checks (behavioral with suicide precautions) for safety. The patient will participate in group, recreational and milieu therapies and will be offered additional individual and family sessions as clinically appropriate. - Continue Zebulon 450 mg q HS. Hesitant to increase without records due to reported hx of renal insufficiency - Continue Sertraline 150 mg with plan to increase. Will add Sertraline 50 mg today as one time dose and begin Sertraline 200 mg in am. - Continue Risperdal. Additional 1 mg po BID prn A/A - Continue Navane. Consider split dose. - Await OP treatment records - Reviewed fasting labs from this am. 07/24 - Increase Risperdal to 1 mg. AM and 5 mg. HS - Increase Navane to include 5 mg AM - EKG tomorrow AM - BUN/creat in AM - Excuse from groups - Fall precautions - Increase Klonopin to 1 mg BID 07/25 -Continue risperidone 1 mg every morning and 5 mg nightly, thiothixene 5 mg every morning and 20 mg nightly, zolpidem 5 mg nightly, and lithium 450 mg nightly. -Continue risperidone 1 mg twice daily as needed. -If sleep does not regulate, consider consolidating antipsychotics to bedtime. -Continue decreased dose of sertraline, 100 mg daily, and decreased further if stefan does not improve. -BUN and creatinine rechecked today and unchanged from admission (BUN 20, creatinine 1.36). EKG sinus tachycardia, rate 127, QTc 499 (admission EKG NSR QTs 467). -Place patient in a medically necessary private room due to severity of stefan and disorganization. -Request records from her outpatient psychiatrist, Dr. Hahn, and spoke to her to coordinate care. Will need to review past med trials when records arrive , to look for potential alternatives to lithium (Depakote?) -Consult nephrology (Dr. Hays, below) re: kidney function and ability to continue lithium. 07/26 - Continue current meds - Consider switching Cogentin to Artane to better target akathisia 07/27 -Continue current medications, as patient continues to improve. She has follow-up appointments with her therapist on Tuesday, and psychiatrist on July. She will also need a follow-up appointment with her [facility] [place]. 07/28 - Due to impaired sleep will increase HS risperdal to 6, navane to 25 - DC maury in favor of a trial of Artane for restlessness - UA and Stool for OB due to reports of blood in toilet 07/29 - Artane 2 mg. BID to target akathisia - Continue other meds and prn's 07/30 -Continue current medications, and enforce standard delirium precautions, as there may be an element of encephalopathy: Encourage the patient to be awake during the day, room dark and quiet at night, promote good sleep, frequent reorientation, use of written questions if she is not able to hear staff. -Boyfriend Alex is to visit today; we will check with him to see how far he thinks she is from baseline. 07/31 -Continue current medications, and contact Dr. Hahn tomorrow to review options for a different mood stabilizer in place of lithium, as her symptoms have demonstrated only minor improvement here, and doses of risperidone and thiothixene have been maximized. -Order x-ray of the right ribs to assess for fracture after a fall, will offer symptomatic treatment, and she has her home dose of tramadol ordered - acute appearing nondisplaced right anterior 10th rib fracture. Continue to offer symptomatic treatment, could wrap it if she is experiencing discomfort with movement or breathing, use of ice pack as needed. (2) Diabetes mellitus type 2 Continue to monitor for renal insufficiency. Recent UA reveal trace protein and her BUN/CR was 20/1.35 Hemoglobin A1 C ordered -5.3, with estimated average glucose of 105. Confirm glucose checks (3) Renal insufficiency 07/24 - BUN/creat mildly elevated on admission, will repeat in AM - Patient on lithium, sees Dr. Ovalles. If BUN/creat trend up, consider consult to consider if lithium safe to continue - Renal diet 07/25 -BUN and creatinine rechecked and are unchanged. Consult nephrology (Dr. Ovalles is her outpatient, spoke with Dr. Hays who is seeing consults today) re: her kidney disease and safety of continuing lithium. Dose has been decreased by her outpatient psychiatrist, who would also like assistance in determining safety of continuing lithium. She states Brenda's kidney function has been fairly stable over the past few years, so could continue lithium if no other options, but may want to consider a trial of another medication if a similarly effective one is available, to try to avoid progression of kidney disease/need for dialysis. If she continues on lithium, recommended BUN and creatinine q 6 months , and urine to check for proteinuria once a year. Dr. Ovalles saw her in Jun. and will see her again in September. (4) Hyperlipemia Continue home doses of atorvastatin and cholestyramine. (5) Gastroesophageal reflux disease Omeprazole is nonformulary, so give equivalent dose of Protonix. (6) Heart disease Continue home dose of losartan. 07/31/17 -stool occult blood negative. Discharge / Aftercare Planning Primary Care Physician: Name: Dr. Santos Galeano, [facility] [place] Psychiatrist: Name: Dr. Hahn, [facility] Date of Appointment: Aug 02, 2017 Time of Appointment: 2pm Therapist: Name: Greyson Silverio [facility] Date of Appointment: Aug 05, 2017 Time of Appointment: 1:00 pm Appointment Notes: [facility] , [address], [place] [address] Compass Operator: Name: Zulay Christianson [facility] Services: Home Health Services: director social, home health agency Home Health Agency: [email or web address] Date of Appointment: Aug 02, 2017 Appointment Notes: Will call pt to establish time Visit Code E&M Code: 68868 Inventory Assets Strengths: Good person,Feels for others Needs: improved physical health, financial help Risk Factors Assessment : Yes /single/: Yes Higher / Fall in social status: No Health problems: Yes Mental Health Diagnoses: Yes Substance use disorders: No Previous attempt: Yes Previous attempt;highly lethal: Yes (Mutiple attempts: hanging, burning) Previous attempt; planned: Yes Previous psychiatric stay: Yes Hopelessness: No Smoker: No Protective Factors Assessment Presybeterian beliefs: Yes : No (But lives with long-term boyfriend) Responsible for young children: No Employed: No Stable relationships: Yes Supportive family: Yes (Speaks of 2 sisters frequently - Rachel and Genoveva) Good rapport with provider: Yes Data Vital Signs Last 24 Hrs: Date Time Temp Pulse Resp B/P (MAP) Pulse Ox O2 Delivery O2 Flow Rate FiO2 07/31/17 06:53 37.0 102 18 136/80 112 144/88 07/30/17 22:25 109 16 120/64 Meds Administered Last 24 Hrs: Meds Administered (Past 24Hrs) Medications (Trade) Dose Ordered Sig/Kelsey Route Start Time Stop Time Status Last Admin Dose Admin Trihexyphenidyl HCl (Artane Tab) 2 mg BID PO 07/29/17 22:00 08/28/17 21:59 07/31/17 07:22 2 MG
--- NOTE | 2017-07-31 12:07 | DIAGNOSTIC IMAGING REPORT ---
AP CHEST WITH RIGHT-SIDED RIB SERIES CLINICAL HISTORY: Fall. Right-sided chest wall pain. FINDINGS: An AP supine chest radiograph with 4 additional views from a right-sided rib series is compared to study dated 01/14/2017. The cardiomediastinal silhouette is unremarkable. There is atherosclerotic calcification of the thoracic aorta. Chronic interstitial thickening is similar to previous. No airspace consolidation or pleural effusion is identified. No pneumothorax is seen. The skeletal structures are osteopenic. There is an acute appearing nondistracted right anterior 10th rib fracture. No additional right-sided rib fracture is seen on the rib series. The remainder of the bony thorax is grossly intact. Degenerative change is noted throughout the thoracic spine. IMPRESSION: 1. The lungs are clear. 2. There is an acute appearing nondistracted right anterior 10th rib fracture seen on the rib series. Electronically signed by: Matias Jasmine M.D. 07/31/2017 12:05 PM Dictated Date/Time: 07/31/2017 12:02 PM
[2017-07-31] MEDS: CHOLESTYRAMINE LIGHT 4 GM PKT PO SCH (13:06)
[2017-07-31] MEDS: ZOLPIDEM TARTRATE 5 MG TAB PO SCH (20:42)
[2017-07-31] MEDS: RISPERIDONE 3 MG TAB PO SCH (20:43)
[2017-07-31] MEDS: LITHIUM CARBONATE 450 MG TABCR PO SCH (20:43)
[2017-07-31] MEDS: MELATONIN 3 MG PO SCH (20:43)
[2017-07-31] MEDS: ATORVASTATIN 10 MG TAB PO SCH (20:43)
[2017-08-01 06:48] VITALS: BP_SYST 112; BP_SYST 128; BP_DIAS 78; BP_DIAS 80; PULSE 106; PULSE 98; TEMP 36.5
[2017-08-01] MEDS: CLONAZEPAM 1 MG TAB PO SCH ×2 (07:23→21:06)
[2017-08-01] MEDS: TRIHEXYPHENIDYL HCL 2 MG TAB PO SCH ×2 (07:23→21:02)
[2017-08-01] MEDS: LOSARTAN POTASSIUM 25 MG TAB PO SCH (07:23)
[2017-08-01] MEDS: THIOTHIXENE 5 MG CAP PO SCH ×2 (07:24→21:06)
[2017-08-01] MEDS: CEROVITE ADV FORMULA TAB PO SCH (07:24)
[2017-08-01] MEDS: OMEGA-3 (PURIFIED FISH OIL) 1 GM CAP PO SCH ×2 (07:24→21:07)
[2017-08-01] MEDS: PANTOprazole SOD 40 MG TAB PO SCH (07:24)
[2017-08-01] MEDS: MONTELUKAST SOD 10 MG TAB PO SCH (07:25)
[2017-08-01] MEDS: ERGOCALCIFEROL 50,000 INTER.UNIT CAP PO SCH (07:25)
[2017-08-01] MEDS: RISPERIDONE 1 MG TAB PO SCH (07:25)
[2017-08-01] MEDS: TOCOPHERYL, DL-ALPHA 400 INTER.UNIT CAP PO SCH (07:26)
[2017-08-01] MEDS: TRAMADOL HCL 50 MG TAB PO PRN ×3 (09:10→23:39)
--- NOTE | 2017-08-01 12:34 | Psychiatric Progress Notes ---
Progress Note Date of Service Aug 01, 2017. Interval History The patient is a 67 year old white female with multiple medical diagnosis and a longstanding history of Schizoaffective Disorder Bipolar Type with prior psychiatric hospitalizations. She is admitted voluntarily after lithium was decreased, and she developed psychotic stefan. Chief Complaint "I'm doing fine". Subjective Patient was seen & assessed interval progress reviewed with Treatment Team. Staff reports the patient slept for 4 hours last evening and has decompensated over the weekend. Pt was seen today to assess progress since admission. Pt states she is "doing fine" and remains circumstantial, talking about needing to get new clothes for tomorrow and then needing to stretch her shoes out per putty worker's recommendations. Pt is able to be moderately redirected during the course of the conversation. Pt states she saw "dark beings" last evening before bed which were "spooky", but appears to be in no current distress. Pt discusses her fall from over the weekend stating "I tried to take a short-cut and tripped over my sock." Pt continues to report right sided pain from the fall, in which she sustained a non-displaced fracture to her 10th right rib. Pain is controlled with current pain medications. Pt denies any needs or concerns today. Spoke with patient's outpatient psychiatrist who shared some history about the patient along with recommendations for Depakote. As she was out of her office today, psychiatrist is planning to review records of previous medications to ensure not previous trials with adverse effects. Case discussed with Alex, the patient's fiance, who recalls a trial of Depakote which he feels caused the patient to become activated. He is unsure of previous dosing during Depakote trial. Alex states he is unable to recall any other mood stabilizers that worked as effectively as Dilworth. Review of Systems Psych: denies symptoms other than stated above Constitutional: denied Cardiovascular: denied GI: denied Neurologic: denied Musculoskeletal: reports right sided rib pain Remainder of 10 body systems also reviewed and denied other than noted above. Sleep Information Total Hours of Sleep: 4.00 Meal Information Percent of Breakfast Consumed: 90 Percent of Lunch Consumed: 90 Percent of Dinner Consumed: 75 Mental Status Exam During interview pt is: cooperative Appearance: appropriately dressed, disheveled (hair disheveled and unclean, malodorous) Eye contact is: good Motor behavior is: other (Slightly unsteady on her feet, tongue protrusion) Speech: loud Affect: euthymic Mood is: other ("I'm fine") Thought process: goal directed, circumstantial (switches from discussing mood to discussing clothes to discussing events of last evening) Thought content: other Suicidal thought are: denied Homicidal thoughts are: denied Hallucinations: denies auditory, denies visual Cognition: other (all spheres impaired) Intelligence estimated to be: below average (intellectual disabilities) Insight: limited Judgement: limited Summary of Past History Spoke with Dr. Hahn and reviewed patient's history, lithium has been decreased by around 150mg twice in the past year, due to CKD and chronic diarrhea, not sure when last decreased exactly. Her GFR has been decreasing over the years. No other med changes have been made recently. There is also a communication challenge, in part due to her hearing difficulties. She is chronically distressed and rarely feels good, has a significant trauma history. Impression Improvement noted by staff in regard to disorganization displayed yesterday. Pt is more oriented, but remains incoherent at times in regard to speech. Dr. Hahn was called today, who was in favor of a Depakote trial. As she was out of the office today, she was unsure if the patient had received a trial previously or what the results were. Dr. Hahn is planning to return the phone call when she has access to the patient's chart to review past medications. Discussed this conversation with the patient's fiance, Alex, who states he felt the patient was activated by previous Depakote trial. He is unsure of dose. Alex states the patient has been "tried on everything". May need to consider increase in Dilworth if patient's records show no response to other mood stabilization trials previously. Dr. Hahn reported a significant period of stability prior to decreasing dose as an outpatient. Will await more information from outpatient provider prior to considering increase in lithium, as this is not the most favorable option in regard to long-term kidney functioning, but may be our best option to improve functioning and mental health. Plan (1) Schizoaffective disorder, chronic condition with acute exacerbation The patient is admitted to [facility] ([facility]) on q 15 min checks (behavioral with suicide precautions) for safety. The patient will participate in group, recreational and milieu therapies and will be offered additional individual and family sessions as clinically appropriate. - Continue Dilworth 450 mg q HS. Hesitant to increase without records due to reported hx of renal insufficiency - Continue Sertraline 150 mg with plan to increase. Will add Sertraline 50 mg today as one time dose and begin Sertraline 200 mg in am. - Continue Risperdal. Additional 1 mg po BID prn A/A - Continue Navane. Consider split dose. - Await OP treatment records - Reviewed fasting labs from this am. 07/24 - Increase Risperdal to 1 mg. AM and 5 mg. HS - Increase Navane to include 5 mg AM - EKG tomorrow AM - BUN/creat in AM - Excuse from groups - Fall precautions - Increase Klonopin to 1 mg BID 07/25 -Continue risperidone 1 mg every morning and 5 mg nightly, thiothixene 5 mg every morning and 20 mg nightly, zolpidem 5 mg nightly, and lithium 450 mg nightly. -Continue risperidone 1 mg twice daily as needed. -If sleep does not regulate, consider consolidating antipsychotics to bedtime. -Continue decreased dose of sertraline, 100 mg daily, and decreased further if stefan does not improve. -BUN and creatinine rechecked today and unchanged from admission (BUN 20, creatinine 1.36). EKG sinus tachycardia, rate 127, QTc 499 (admission EKG NSR QTs 467). -Place patient in a medically necessary private room due to severity of stefan and disorganization. -Request records from her outpatient psychiatrist, Dr. Hahn, and spoke to her to coordinate care. Will need to review past med trials when records arrive , to look for potential alternatives to lithium (Depakote?) -Consult nephrology (Dr. Hays, below) re: kidney function and ability to continue lithium. 07/26 - Continue current meds - Consider switching Cogentin to Artane to better target akathisia 07/27 -Continue current medications, as patient continues to improve. She has follow-up appointments with her therapist on Tuesday, and psychiatrist on July. She will also need a follow-up appointment with her router operator pin. 07/28 - Due to impaired sleep will increase HS risperdal to 6, navane to 25 - DC maury in favor of a trial of Artane for restlessness - UA and Stool for OB due to reports of blood in toilet 07/29 - Artane 2 mg. BID to target akathisia - Continue other meds and prn's 07/30 -Continue current medications, and enforce standard delirium precautions, as there may be an element of encephalopathy: Encourage the patient to be awake during the day, room dark and quiet at night, promote good sleep, frequent reorientation, use of written questions if she is not able to hear staff. -Boyfriend Alex is to visit today; we will check with him to see how far he thinks she is from baseline. 07/31 -Continue current medications, and contact Dr. Hahn tomorrow to review options for a different mood stabilizer in place of lithium, as her symptoms have demonstrated only minor improvement here, and doses of risperidone and thiothixene have been maximized. -Order x-ray of the right ribs to assess for fracture after a fall, will offer symptomatic treatment, and she has her home dose of tramadol ordered - acute appearing nondisplaced right anterior 10th rib fracture. Continue to offer symptomatic treatment, could wrap it if she is experiencing discomfort with movement or breathing, use of ice pack as needed. 08/01 - Continue current medications. Awaiting previous medication trials from Dr. Hahn, as favorable to Depakote, but allen states previous trial was activating. - Will need to weigh benefit of mood stabilization on Dilworth with risk of harm to kidneys, as Dilworth is not ideal with current kidney function, but a more favorable agent for mood stabilization may not be found given previous medication trials. - Continue to assess current condition with Alex villa, to gain feedback about patient's condition relative to baseline. (2) Diabetes mellitus type 2 Continue to monitor for renal insufficiency. Recent UA reveal trace protein and her BUN/CR was 20/1.35 Hemoglobin A1 C ordered -5.3, with estimated average glucose of 105. Confirm glucose checks (3) Renal insufficiency 07/24 - BUN/creat mildly elevated on admission, will repeat in AM - Patient on lithium, sees Dr. Ovalles. If BUN/creat trend up, consider consult to consider if lithium safe to continue - Renal diet 07/25 -BUN and creatinine rechecked and are unchanged. Consult nephrology (Dr. Ovalles is her outpatient, spoke with Dr. Hays who is seeing consults today) re: her kidney disease and safety of continuing lithium. Dose has been decreased by her outpatient psychiatrist, who would also like assistance in determining safety of continuing lithium. She states Brenda's kidney function has been fairly stable over the past few years, so could continue lithium if no other options, but may want to consider a trial of another medication if a similarly effective one is available, to try to avoid progression of kidney disease/need for dialysis. If she continues on lithium, recommended BUN and creatinine q 6 months , and urine to check for proteinuria once a year. Dr. Ovalles saw her in Jun. and will see her again in September. (4) Hyperlipemia Continue home doses of atorvastatin and cholestyramine. (5) Gastroesophageal reflux disease Omeprazole is nonformulary, so give equivalent dose of Protonix. (6) Heart disease Continue home dose of losartan. 07/31/17 -stool occult blood negative. Discharge / Aftercare Planning Primary Care Physician: Name: Dr. Santos Galeano, [facility] [employer] Psychiatrist: Name: Dr. Hahn, [facility] Date of Appointment: Aug 08, 2017 Time of Appointment: 2pm Therapist: Name: Katerina Valerio [facility] Date of Appointment: Aug 05, 2017 Time of Appointment: 1:00 pm Appointment Notes: [facility] , [address], [place] [address] Counter Intelligence: Name: [facility]: Home Health Services: social insurance administrator, home health agency Home Health Agency: [facility] Date of Appointment: Aug 02, 2017 Appointment Notes: Will call pt to establish time Visit Code E&M Code: 55464 Inventory Assets Strengths: Good person,Feels for others Needs: improved physical health, financial help Risk Factors Assessment : Yes /single/: Yes Higher / Fall in social status: No Health problems: Yes Mental Health Diagnoses: Yes Substance use disorders: No Previous attempt: Yes Previous attempt;highly lethal: Yes (Mutiple attempts: hanging, burning) Previous attempt; planned: Yes Previous psychiatric stay: Yes Hopelessness: No Smoker: No Protective Factors Assessment Jain beliefs: Yes : No (But lives with long-term boyfriend) Responsible for young children: No Employed: No Stable relationships: Yes Supportive family: Yes (Speaks of 2 sisters frequently - Rachel and Genoveva) Good rapport with provider: Yes Data Vital Signs Last 24 Hrs: Date Time Temp Pulse Resp B/P (MAP) Pulse Ox O2 Delivery O2 Flow Rate FiO2 08/01/17 06:48 36.5 98 16 128/78 106 112/80
[2017-08-01] MEDS: CHOLESTYRAMINE LIGHT 4 GM PKT PO SCH (13:28)
[2017-08-01] MEDS: HALOPERIDOL 5 MG TAB PO PRN (19:27)
[2017-08-01] MEDS: ZOLPIDEM TARTRATE 5 MG TAB PO SCH (21:02)
[2017-08-01] MEDS: ATORVASTATIN 10 MG TAB PO SCH (21:06)
[2017-08-01] MEDS: MELATONIN 3 MG PO SCH (21:06)
[2017-08-01] MEDS: RISPERIDONE 3 MG TAB PO SCH (21:07)
[2017-08-01] MEDS: LITHIUM CARBONATE 450 MG TABCR PO SCH (21:15)
[2017-08-01] MEDS: hydrOXYzine HCL 25 MG TAB PO PRN (23:39)
[2017-08-02 06:39] VITALS: BP_SYST 116; BP_SYST 148; BP_DIAS 77; BP_DIAS 80; PULSE 96; PULSE 99; TEMP 36.9
[2017-08-02] MEDS: CLONAZEPAM 1 MG TAB PO SCH (08:58)
[2017-08-02] MEDS: PANTOprazole SOD 40 MG TAB PO SCH (08:58)
[2017-08-02] MEDS: OMEGA-3 (PURIFIED FISH OIL) 1 GM CAP PO SCH ×2 (08:58→21:23)
[2017-08-02] MEDS: TRIHEXYPHENIDYL HCL 2 MG TAB PO SCH ×2 (08:58→21:22)
[2017-08-02] MEDS: LOSARTAN POTASSIUM 25 MG TAB PO SCH (08:58)
[2017-08-02] MEDS: CEROVITE ADV FORMULA TAB PO SCH (08:58)
[2017-08-02] MEDS: MONTELUKAST SOD 10 MG TAB PO SCH (08:58)
[2017-08-02] MEDS: THIOTHIXENE 5 MG CAP PO SCH ×2 (08:59→21:23)
[2017-08-02] MEDS: TOCOPHERYL, DL-ALPHA 400 INTER.UNIT CAP PO SCH (08:59)
[2017-08-02] MEDS: RISPERIDONE 1 MG TAB PO SCH (08:59)
[2017-08-02] MEDS: TRAMADOL HCL 50 MG TAB PO PRN ×2 (09:22→15:45)
--- NOTE | 2017-08-02 12:04 | Psychiatric Progress Notes ---
Progress Note Date of Service Aug 02, 2017. Interval History The patient is a 67 year old white female with multiple medical diagnosis and a longstanding history of Schizoaffective Disorder Bipolar Type with prior psychiatric hospitalizations. She is admitted voluntarily after lithium was decreased, and she developed psychotic stefan. Chief Complaint "I saw 3 black things in the bunch.". Subjective Patient was seen & assessed interval progress reviewed with Treatment Team. The patient is alert and cooperative. She says that she was seeing 3 black things in the hallway that scared her and so she got her yellow blanket "that reminds me of sunshine" and put it over her head. She also endorses hearing people "yelling at each other". She denies racing thoughts or elevated energy today and is observed to sit in chair outside of her room for long periods without speaking. We talked about past med trials and she says that she has been on depakote in the past and thinks that it made her dizzy and suicidal. She admits to having intermittant SI, although not clear if she is saying these are happening here or prior to admission, but says that she "resists" them. Staff describe her as disorganized and overstimulated when in the general milieu and so have been encouraging her to stay in the [facility] to reduce stimuli, which she has been happy to do. I observed her walking both slowing and rapidly in the hallway and her gait was steady, although she was toe walking. Review of Systems Constitutional: No fever, No chills, No sweats, No weight loss, No weakness, No fatigue, No problem reported ENT: + hearing loss Respiratory: No cough, No sputum, No wheezing, No shortness of breath, No dyspnea on exertion, No dyspnea at rest, No hemoptysis, No problem reported Cardiovascular: No chest pain, No orthopnea, No PND, No edema, No claudication , No palpitations, No problem reported Abdomen: + constipation Musculoskeletal: + joint pain Neurologic: No memory loss, No paralysis, No weakness, No numbness/tingling, No vertigo, No balance problems, No problem reported Psychiatric: + depression symptoms, + problem reported (hallucinations) Integumentary: No rash, No itch, No new/changing skin lesions, No color change , No bleeding, No problem reported Sleep Information Total Hours of Sleep: 6.50 Meal Information Percent of Breakfast Consumed: 75 Percent of Lunch Consumed: 100 Percent of Dinner Consumed: 75 Mental Status Exam During interview pt is: alert and oriented, cooperative Appearance: appropriately dressed Eye contact is: good Motor behavior is: steady gait & station Speech: loud (inarticulate) Affect: blunted, euthymic Mood is: other ("I'm fine") Thought process: goal directed, circumstantial (switches from discussing mood to discussing clothes to discussing events of last evening) Thought content: cognitive distortions Suicidal thought are: present, Plan: denied, Intent: denied Homicidal thoughts are: denied Hallucinations: auditory, visual Cognition: other (all spheres impaired) Intelligence estimated to be: below average (intellectual disabilities) Insight: limited Judgement: limited Summary of Past History Spoke with Dr. Hahn and reviewed patient's history, lithium has been decreased by around 150mg twice in the past year, due to CKD and chronic diarrhea, not sure when last decreased exactly. Her GFR has been decreasing over the years. No other med changes have been made recently. There is also a communication challenge, in part due to her hearing difficulties. She is chronically distressed and rarely feels good, has a significant trauma history. Impression Some improvements to symptoms and gait appears to be steady. We are awaiting return call from Dr. Hahn regarding past med trials although the patient has negative memories of a past depakote trial. Could consider adding lamictal for bipolar maintenance, but no efficacy for immediate symptoms. Will DC AM klonopin to avoid daytime sedation and any gait instability, but increase HS dose to 1.5 mg to target sleep. Plan (1) Schizoaffective disorder, chronic condition with acute exacerbation The patient is admitted to [facility] ([facility] unit) on q 15 min checks (behavioral with suicide precautions) for safety. The patient will participate in group, recreational and milieu therapies and will be offered additional individual and family sessions as clinically appropriate. - Continue Kellogg 450 mg q HS. Hesitant to increase without records due to reported hx of renal insufficiency - Continue Sertraline 150 mg with plan to increase. Will add Sertraline 50 mg today as one time dose and begin Sertraline 200 mg in am. - Continue Risperdal. Additional 1 mg po BID prn A/A - Continue Navane. Consider split dose. - Await OP treatment records - Reviewed fasting labs from this am. 07/24 - Increase Risperdal to 1 mg. AM and 5 mg. HS - Increase Navane to include 5 mg AM - EKG tomorrow AM - BUN/creat in AM - Excuse from groups - Fall precautions - Increase Klonopin to 1 mg BID 07/25 -Continue risperidone 1 mg every morning and 5 mg nightly, thiothixene 5 mg every morning and 20 mg nightly, zolpidem 5 mg nightly, and lithium 450 mg nightly. -Continue risperidone 1 mg twice daily as needed. -If sleep does not regulate, consider consolidating antipsychotics to bedtime. -Continue decreased dose of sertraline, 100 mg daily, and decreased further if stefan does not improve. -BUN and creatinine rechecked today and unchanged from admission (BUN 20, creatinine 1.36). EKG sinus tachycardia, rate 127, QTc 499 (admission EKG NSR QTs 467). -Place patient in a medically necessary private room due to severity of stefan and disorganization. -Request records from her outpatient psychiatrist, Dr. Hahn, and spoke to her to coordinate care. Will need to review past med trials when records arrive , to look for potential alternatives to lithium (Depakote?) -Consult nephrology (Dr. Hays, below) re: kidney function and ability to continue lithium. 07/26 - Continue current meds - Consider switching Cogentin to Artane to better target akathisia 07/27 -Continue current medications, as patient continues to improve. She has follow-up appointments with her therapist on Tuesday, and psychiatrist on July. She will also need a follow-up appointment with her crm specialist. 07/28 - Due to impaired sleep will increase HS risperdal to 6, navane to 25 - DC maury in favor of a trial of Artane for restlessness - UA and Stool for OB due to reports of blood in toilet 07/29 - Artane 2 mg. BID to target akathisia - Continue other meds and prn's 07/30 -Continue current medications, and enforce standard delirium precautions, as there may be an element of encephalopathy: Encourage the patient to be awake during the day, room dark and quiet at night, promote good sleep, frequent reorientation, use of written questions if she is not able to hear staff. -Boyfriend Alex is to visit today; we will check with him to see how far he thinks she is from baseline. 07/31 -Continue current medications, and contact Dr. Hahn tomorrow to review options for a different mood stabilizer in place of lithium, as her symptoms have demonstrated only minor improvement here, and doses of risperidone and thiothixene have been maximized. -Order x-ray of the right ribs to assess for fracture after a fall, will offer symptomatic treatment, and she has her home dose of tramadol ordered - acute appearing nondisplaced right anterior 10th rib fracture. Continue to offer symptomatic treatment, could wrap it if she is experiencing discomfort with movement or breathing, use of ice pack as needed. 08/01 - Continue current medications. Awaiting previous medication trials from Dr. Hahn, as favorable to Depakote, but allen states previous trial was activating. - Will need to weigh benefit of mood stabilization on Kellogg with risk of harm to kidneys, as Kellogg is not ideal with current kidney function, but a more favorable agent for mood stabilization may not be found given previous medication trials. - Continue to assess current condition with Alex villa, to gain feedback about patient's condition relative to baseline. 08/02 - Awaiting call from Dr. Hahn re: past med trials - Change Klonopin to 1.5 mg HS only (2) Diabetes mellitus type 2 Continue to monitor for renal insufficiency. Recent UA reveal trace protein and her BUN/CR was 20/1.35 Hemoglobin A1 C ordered -5.3, with estimated average glucose of 105. Confirm glucose checks (3) Renal insufficiency 07/24 - BUN/creat mildly elevated on admission, will repeat in AM - Patient on lithium, sees Dr. Ovalles. If BUN/creat trend up, consider consult to consider if lithium safe to continue - Renal diet 07/25 -BUN and creatinine rechecked and are unchanged. Consult nephrology (Dr. Ovalles is her outpatient, spoke with Dr. Hays who is seeing consults today) re: her kidney disease and safety of continuing lithium. Dose has been decreased by her outpatient psychiatrist, who would also like assistance in determining safety of continuing lithium. She states Brenda's kidney function has been fairly stable over the past few years, so could continue lithium if no other options, but may want to consider a trial of another medication if a similarly effective one is available, to try to avoid progression of kidney disease/need for dialysis. If she continues on lithium, recommended BUN and creatinine q 6 months , and urine to check for proteinuria once a year. Dr. Ovalles saw her in Jun. and will see her again in September. (4) Hyperlipemia Continue home doses of atorvastatin and cholestyramine. (5) Gastroesophageal reflux disease Omeprazole is nonformulary, so give equivalent dose of Protonix. (6) Heart disease Continue home dose of losartan. 07/31/17 -stool occult blood negative. Discharge / Aftercare Planning Primary Care Physician: Name: Dr. Santos Galeano, [facility] Psychiatrist: Name: Dr. Hahn, [facility] Date of Appointment: Aug 08, 2017 Time of Appointment: 2pm Therapist: Name: Katerina Valerio [facility] Date of Appointment: Aug 05, 2017 Time of Appointment: 1:00 pm Appointment Notes: [facility] , [address] Floor, [place] [address] Bi Application Developer: Name: Zulay Christianson Home Health Services: Home Health Services: psychologist social, home health agency Home Health Agency: [facility] Date of Appointment: Aug 02, 2017 Appointment Notes: Will call pt to establish time Visit Code E&M Code: 26481 Inventory Assets Strengths: Good person,Feels for others Needs: improved physical health, financial help Risk Factors Assessment : Yes /single/: Yes Higher / Fall in social status: No Health problems: Yes Mental Health Diagnoses: Yes Substance use disorders: No Previous attempt: Yes Previous attempt;highly lethal: Yes (Mutiple attempts: hanging, burning) Previous attempt; planned: Yes Previous psychiatric stay: Yes Hopelessness: No Smoker: No Protective Factors Assessment Caodaism beliefs: Yes : No (But lives with long-term boyfriend) Responsible for young children: No Employed: No Stable relationships: Yes Supportive family: Yes (Speaks of 2 sisters frequently - Rachel and Genoveva) Good rapport with provider: Yes Data Vital Signs Last 24 Hrs: Date Time Temp Pulse Resp B/P (MAP) Pulse Ox O2 Delivery O2 Flow Rate FiO2 08/02/17 06:39 36.9 96 18 148/80 99 116/77 Meds Administered Last 24 Hrs: Current Inpatient Medications Medications (Trade) Dose Ordered Sig/Kelsey Route Start Time Stop Time Status Last Admin Dose Admin Acetaminophen (Tylenol Tab) 650 mg Q4H PRN PO 07/22/17 19:00 08/21/17 18:59 07/26/17 08:16 650 MG Al Hydroxide/Mg Hydroxide (Maalox Susp) 30 ml Q4H PRN PO 07/22/17 19:00 08/21/17 18:59 Magnesium Hydroxide (Milk Of Magnesia Susp) 30 ml DAILY PRN PO 07/22/17 19:00 08/21/17 18:59 Sodium Chloride (Swift Nasal [place]) PRN PRN NA 07/22/17 19:00 08/21/17 18:59 Hydroxyzine HCl (Vistaril Tab) 50 mg HSZ PRN PO 07/22/17 19:00 08/21/17 18:59 08/01/17 23:39 50 MG Hydroxyzine HCl (Vistaril Tab) 25 mg Q4H PRN PO 07/22/17 19:00 08/21/17 18:59 07/23/17 11:47 25 MG Atorvastatin Calcium (Lipitor Tab) 10 mg HS PO 07/22/17 21:00 08/21/17 20:59 08/01/17 21:06 10 MG Ergocalciferol (Vitamin D Cap) 50,000 interunit Mo@0900 PO 07/25/17 09:00 08/24/17 08:59 08/01/17 07:25 50,000 INTERUNIT Fish Oil ([place]-3 (Purified Fish Oil) Cap) 1 gm BID PO 07/22/17 21:00 08/21/17 20:59 08/02/17 08:58 1 GM Kellogg Carbonate (Eskalith Cr Tab) 450 mg HS PO 07/22/17 21:00 08/21/17 20:59 08/01/17 21:15 450 MG Losartan Potassium (coZAAR TAB) 25 mg QAM PO 07/23/17 09:00 08/22/17 08:59 08/02/17 08:58 25 MG Montelukast Sodium (Singulair Tab) 10 mg QAM PO 07/23/17 09:00 08/22/17 08:59 08/02/17 08:58 10 MG Multivitamins/ Minerals (Multivitamin W/ Minerals Tab) 1 tab QAM PO 07/23/17 09:00 08/22/17 08:59 08/02/17 08:58 1 TAB [id number] Acetate (Vitamin E Cap) 400 interunit DAILY PO 07/23/17 09:00 08/22/17 08:59 08/02/17 08:59 400 INTERUNIT Zolpidem Tartrate (Ambien Tab) 5 mg HS PO 07/22/17 21:00 08/21/17 20:59 08/01/17 21:02 5 MG Pantoprazole Sodium (Protonix Tab) 40 mg QAM PO 07/23/17 09:00 08/22/17 08:59 08/02/17 08:58 40 MG Risperidone (Risperdal Tab) 1 mg BID PRN PO 07/23/17 11:30 08/22/17 11:29 07/24/17 16:28 1 MG Cholestyramine Resin (Questran Powder Light) 4 gm DAILY@1400 PO 07/24/17 14:00 08/23/17 13:59 08/01/17 13:28 4 GM Risperidone (Risperdal Tab) 1 mg QAM PO 07/24/17 09:00 08/23/17 08:59 08/02/17 08:59 1 MG Thiothixene (Navane Cap) 5 mg QAM PO 07/24/17 09:00 08/23/17 08:59 08/02/17 08:59 5 MG Melatonin (Melatonex) 3 mg HS PO 07/24/17 22:00 08/23/17 21:59 08/01/17 21:06 3 MG Haloperidol (Haldol Tab) 5 mg Q4H PRN PO 07/24/17 17:15 08/23/17 17:14 08/01/17 19:27 5 MG Tramadol HCl (Ultram Tab) 50 mg Q4H PRN PO 07/27/17 16:00 08/26/17 15:59 08/02/17 09:22 50 MG Risperidone (Risperdal Tab) 6 mg HS PO 07/28/17 22:00 08/27/17 21:59 08/01/17 21:07 6 MG Thiothixene (Navane Cap) 25 mg HS PO 07/28/17 22:00 08/27/17 21:59 08/01/17 21:06 25 MG Trihexyphenidyl HCl (Artane Tab) 2 mg BID PO 07/29/17 22:00 08/28/17 21:59 08/02/17 08:58 2 MG Clonazepam (Klonopin Tab) 1.5 mg HS PO 08/02/17 22:00 09/01/17 21:59 Lab Results Last 24 Hrs: 07/22/17 16:03 Red Blood Count 3.87, Mean Corpuscular Volume 88.9, Mean Corpuscular Hemoglobin 28.9, Mean Corpuscular Hemoglobin Concent 32.6, Mean Platelet Volume 9.2, Neutrophils (%) (Auto) 71.9, Lymphocytes (%) (Auto) 13.5, Monocytes (%) (Auto) 10.3, Eosinophils (%) (Auto) 3.3, Basophils (%) (Auto) 0.5, Neutrophils # (Auto ) 4.31, Lymphocytes # (Auto) 0.81, Monocytes # (Auto) 0.62, Eosinophils # (Auto ) 0.20, Basophils # (Auto) 0.03 07/22/17 16:03 07/25/17 07:08 Test 07/22/17 14:50 07/22/17 16:03 07/23/17 07:17 07/25/17 07:08 Urine Opiates Screen NEG (NEG) Urine Methadone, Qualitative NEG (NEG) Urine Barbiturates NEG (NEG) Urine Phencyclidine (PCP) Level NEG (NEG) Ur Amphetamine/Methamphetamine NEG (NEG) MDMA (Ecstasy) Screen NEG (NEG) Urine Benzodiazepines Screen NEG (NEG) Urine Cocaine Metabolite NEG (NEG) Urine Marijuana (THC) NEG (NEG) White Blood Count 6.00 K/uL (4.8-10.8) Red Blood Count 3.87 M/uL (4.2-5.4) Hemoglobin 11.2 g/dL (12.0-16.0) Hematocrit 34.4 % (37-47) Mean Corpuscular Volume 88.9 fL (80-100) Mean Corpuscular Hemoglobin 28.9 pg (25-34) Mean Corpuscular Hemoglobin Concent 32.6 g/dl (32-36) Platelet Count 226 K/uL (130-400) Mean Platelet Volume 9.2 fL (7.4-10.4) Neutrophils (%) (Auto) 71.9 % Lymphocytes (%) (Auto) 13.5 % Monocytes (%) (Auto) 10.3 % Eosinophils (%) (Auto) 3.3 % Basophils (%) (Auto) 0.5 % Neutrophils # (Auto) 4.31 K/uL (1.4-6.5) Lymphocytes # (Auto) 0.81 K/uL (1.2-3.4) Monocytes # (Auto) 0.62 K/uL (0.11-0.59) Eosinophils # (Auto) 0.20 K/uL (0-0.5) Basophils # (Auto) 0.03 K/uL (0-0.2) RDW Standard Deviation 48.9 fL (36.4-46.3) RDW Coefficient of Variation 15.1 % (11.5-14.5) Immature Granulocyte % (Auto) 0.5 % Immature Granulocyte # (Auto) 0.03 K/uL (0.00-0.02) Anion Gap 7.0 mmol/L (3-11) Estimated Average Glucose 105 mg/dl Hemoglobin A1c 5.3 % (4.5-5.6) Calcium Level 9.8 mg/dl (8.5-10.1) Total Bilirubin 0.3 mg/dl (0.2-1) Direct Bilirubin < 0.1 mg/dl (0-0.2) Aspartate Amino Transf (AST/SGOT) 17 U/L (15-37) Alanine Aminotransferase (ALT/SGPT) 33 U/L (12-78) Alkaline Phosphatase 121 U/L (45-117) Total Protein 8.2 gm/dl (6.4-8.2) Albumin 3.9 gm/dl (3.4-5.0) Thyroid Stimulating Hormone (TSH) 3.260 uIu/ml (0.300-4.500) Salicylates Level < 1.7 mg/dl (2.8-20) Acetaminophen Level < 2 ug/ml (10-30) Ethyl Alcohol mg/dL < 3.0 mg/dl (0-3) Fasting Glucose 129 mg/dl (70-99) Triglycerides Level 151 mg/dl (0-150) Cholesterol Level 165 mg/dl (0-200) HDL Cholesterol 56 mg/dl LDL Cholesterol, Calculated 79 mg/dl VLDL Cholesterol, Calculated 30 mg/dl Cholesterol/HDL Ratio 2.9 Kellogg Level 0.6 mMOL/L (0.6-1.2) Est Creatinine Clear Calc Drug Dose 35.2 ml/min Estimated GFR () 47.2 Estimated GFR (Non- 40.7 BUN/Creatinine Ratio 14.9 (10-20) Test 07/28/17 12:20 07/30/17 00:00 Urine Color YELLOW Urine Appearance CLEAR (CLEAR) Urine pH 5.5 (4.5-7.5) Urine Specific [place] 1.005 (1.000-1.030) Urine Protein NEG (NEG) Urine Glucose (UA) NEG (NEG) Urine Ketones NEG (NEG) Urine Occult Blood NEG (NEG) Urine Nitrite NEG (NEG) Urine Bilirubin NEG (NEG) Urine Urobilinogen NEG (NEG) Urine Leukocyte Esterase SMALL (NEG) Urine WBC (Auto) /hpf (0-5) Urine RBC (Auto) /hpf (0-4) Urine Hyaline Casts (Auto) /lpf (0-5) Urine Epithelial Cells (Auto) /lpf (0-5) Urine Bacteria (Auto) (NEG) Urine RBC 0-4 /hpf (0-4) Urine WBC 1-5 /hpf (0-5) Urine Epithelial Cells 5-10 /lpf (0-5) Urine Bacteria NEG (NEG) Stool Occult Blood NEGATIVE (NEGATIVE)
[2017-08-02] MEDS: CHOLESTYRAMINE LIGHT 4 GM PKT PO SCH (14:00)
[2017-08-02] MEDS: ACETAMINOPHEN 325 MG TAB PO PRN (15:45)
[2017-08-02] MEDS: ZOLPIDEM TARTRATE 5 MG TAB PO SCH (21:21)
[2017-08-02] MEDS: CLONAZEPAM 0.5 MG TAB PO SCH (21:22)
[2017-08-02] MEDS: LITHIUM CARBONATE 450 MG TABCR PO SCH (21:22)
[2017-08-02] MEDS: ATORVASTATIN 10 MG TAB PO SCH (21:23)
[2017-08-02] MEDS: RISPERIDONE 3 MG TAB PO SCH (21:23)
[2017-08-02] MEDS: MELATONIN 3 MG PO SCH (21:23)
[2017-08-03 06:45] VITALS: BP_SYST 125; BP_SYST 134; BP_DIAS 78; BP_DIAS 85; PULSE 103; PULSE 97; TEMP 37.1
--- NOTE | 2017-08-03 08:33 | Psychiatric Progress Notes ---
Progress Note Date of Service Aug 03, 2017. Interval History The patient is a 67 year old white female with multiple medical diagnosis and a longstanding history of Schizoaffective Disorder Bipolar Type with prior psychiatric hospitalizations. She is admitted voluntarily after lithium was decreased, and she developed psychotic stefan. Chief Complaint "I just went in that room, I thought they were going to put me in that room". Subjective Patient was seen & assessed interval progress reviewed with Treatment Team. Staff report she slept 4 hours over dayshift yesterday, and 6+ hours overnight. She requires frequent staff interventions for ambulating unassisted and disorganized behavior. She was unable to participate in groups yesterday. Her morning clonazepam dose was discontinued for today and HS dose increased to 1.5mg. Today the patient reports her mood is "a 5, because I ask them for things and they cannot bring them," stating that she ask staff for "charcoal sticks." She then starts talking about not having a car, and wanting a BMW. She denies hallucinations and paranoia, reports good appetite, and is oriented to the year, month, date, and name of the hospital. When asked about sleep, she talks about needing "something soft." She shows me a note that says "no coffee, " and says her boyfriend left this for her to remind her not to drink it, as "I was flying high, reached the ly." When asked how she feels about going home in a couple of days, she says "well we will see what tomorrow brings." She has difficulty clarifying any concerns that she might have about discharge. Sleep Information Total Hours of Sleep: 6.25 Meal Information Percent of Breakfast Consumed: 75 Percent of Lunch Consumed: 0 Percent of Dinner Consumed: 100 Mental Status Exam During interview pt is: alert and oriented, cooperative Appearance: appropriately dressed, appropriately groomed Eye contact is: good Motor behavior is: no abnormal motor movements Speech: loud Affect: blunted, euthymic Mood is: other ("I'm fine") Thought process: goal directed, looseness of associations (Jumps from topic to topic) Thought content: cognitive distortions Suicidal thought are: denied Homicidal thoughts are: denied Hallucinations: denies auditory, denies visual Cognition: other (all spheres impaired) Intelligence estimated to be: below average (intellectual disabilities) Insight: limited Judgement: limited Summary of Past History Spoke with Dr. Hahn and reviewed patient's history, lithium has been decreased by around 150mg twice in the past year, due to CKD and chronic diarrhea, not sure when last decreased exactly. Her GFR has been decreasing over the years. No other med changes have been made recently. There is also a communication challenge, in part due to her hearing difficulties. She is chronically distressed and rarely feels good, has a significant trauma history. Impression Some improvements to symptoms and gait appears to be steady. We are awaiting return call from Dr. Hahn regarding past mood stabilizer medication trials, although the patient has negative memories of a past Depakote trial. Could consider adding lamotrigine for bipolar maintenance when she stabilizes. Her morning dose of clonazepam has been discontinued to avoid daytime sedation and minimize gait instability, while her HS dose was increased to 1.5 mg to target sleep. Plan (1) Schizoaffective disorder, chronic condition with acute exacerbation The patient is admitted to [facility] ([facility] unit) on q 15 min checks (behavioral with suicide precautions) for safety. The patient will participate in group, recreational and milieu therapies and will be offered additional individual and family sessions as clinically appropriate. - Continue Canehill 450 mg q HS. Hesitant to increase without records due to reported hx of renal insufficiency - Continue Sertraline 150 mg with plan to increase. Will add Sertraline 50 mg today as one time dose and begin Sertraline 200 mg in am. - Continue Risperdal. Additional 1 mg po BID prn A/A - Continue Navane. Consider split dose. - Await OP treatment records - Reviewed fasting labs from this am. 07/24 - Increase Risperdal to 1 mg. AM and 5 mg. HS - Increase Navane to include 5 mg AM - EKG tomorrow AM - BUN/creat in AM - Excuse from groups - Fall precautions - Increase Klonopin to 1 mg BID 07/25 -Continue risperidone 1 mg every morning and 5 mg nightly, thiothixene 5 mg every morning and 20 mg nightly, zolpidem 5 mg nightly, and lithium 450 mg nightly. -Continue risperidone 1 mg twice daily as needed. -If sleep does not regulate, consider consolidating antipsychotics to bedtime. -Continue decreased dose of sertraline, 100 mg daily, and decreased further if stefan does not improve. -BUN and creatinine rechecked today and unchanged from admission (BUN 20, creatinine 1.36). EKG sinus tachycardia, rate 127, QTc 499 (admission EKG NSR QTs 467). -Place patient in a medically necessary private room due to severity of stefan and disorganization. -Request records from her outpatient psychiatrist, Dr. Hahn, and spoke to her to coordinate care. Will need to review past med trials when records arrive , to look for potential alternatives to lithium (Depakote?) -Consult nephrology (Dr. Hays, below) re: kidney function and ability to continue lithium. 07/26 - Continue current meds - Consider switching Cogentin to Artane to better target akathisia 07/27 -Continue current medications, as patient continues to improve. She has follow-up appointments with her therapist on Tuesday, and psychiatrist on July. 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 07/28 - Due to impaired sleep will increase HS risperdal to 6, navane to 25 - DC cogentin in favor of a trial of Artane for restlessness - UA and Stool for OB due to reports of blood in toilet 07/29 - Artane 2 mg. BID to target akathisia - Continue other meds and prn's 07/30 -Continue current medications, and enforce standard delirium precautions, as there may be an element of encephalopathy: Encourage the patient to be awake during the day, room dark and quiet at night, promote good sleep, frequent reorientation, use of written questions if she is not able to hear staff. -Boyfriend Alex is to visit today; we will check with him to see how far he thinks she is from baseline. 07/31 -Continue current medications, and contact Dr. Hahn tomorrow to review options for a different mood stabilizer in place of lithium, as her symptoms have demonstrated only minor improvement here, and doses of risperidone and thiothixene have been maximized. -Order x-ray of the right ribs to assess for fracture after a fall, will offer symptomatic treatment, and she has her home dose of tramadol ordered - acute appearing nondisplaced right anterior 10th rib fracture. Continue to offer symptomatic treatment, could wrap it if she is experiencing discomfort with movement or breathing, use of ice pack as needed. 08/01 - Continue current medications. Awaiting previous medication trials from Dr. Hahn, as favorable to Depakote, but allen states previous trial was activating. - Will need to weigh benefit of mood stabilization on Canehill with risk of harm to kidneys, as Canehill is not ideal with current kidney function, but a more favorable agent for mood stabilization may not be found given previous medication trials. - Continue to assess current condition with Alex villa, to gain feedback about patient's condition relative to baseline. 08/02 - Awaiting call from Dr. Hahn re: past med trials - Change Klonopin to 1.5 mg HS only 08/03 -Disorganization improving over the past couple of days, and we are working to consolidate sleep and limit daytime sedation from medications to decrease fall risk. (2) Diabetes mellitus type 2 Continue to monitor for renal insufficiency. Recent UA reveal trace protein and her BUN/CR was 20/1.35 Hemoglobin A1 C ordered -5.3, with estimated average glucose of 105. Confirm glucose checks (3) Renal insufficiency 07/24 - BUN/creat mildly elevated on admission, will repeat in AM - Patient on lithium, sees Dr. Ovalles. If BUN/creat trend up, consider consult to consider if lithium safe to continue - Renal diet 07/25 -BUN and creatinine rechecked and are unchanged. Consult nephrology (Dr. Ovalles is her outpatient, spoke with Dr. Hays who is seeing consults today) re: her kidney disease and safety of continuing lithium. Dose has been decreased by her outpatient psychiatrist, who would also like assistance in determining safety of continuing lithium. She states Brenda's kidney function has been fairly stable over the past few years, so could continue lithium if no other options, but may want to consider a trial of another medication if a similarly effective one is available, to try to avoid progression of kidney disease/need for dialysis. If she continues on lithium, recommended BUN and creatinine q 6 months , and urine to check for proteinuria once a year. Dr. Ovalles saw her in Jun. and will see her again in September. (4) Hyperlipemia Continue home doses of atorvastatin and cholestyramine. (5) Gastroesophageal reflux disease Omeprazole is nonformulary, so give equivalent dose of Protonix. (6) Heart disease Continue home dose of losartan. 07/31/17 -stool occult blood negative. Discharge / Aftercare Planning Primary Care Physician: Name: Dr. Santos Galeano, [facility] [place] [employer] Psychiatrist: Name: Dr. Hahn, [facility] Date of Appointment: Aug 08, 2017 Time of Appointment: 2pm Therapist: Name: Greyson Silverio [facility] Date of Appointment: Aug 05, 2017 Time of Appointment: 1:00 pm Appointment Notes: [facility] , [address] Floor, [place] [address] Wireless Sales Expert: Name: Zulay Christianson [employer] Home Health Services: Home Health Services: social work associate, home health agency Home Health Agency: [facility] Date of Appointment: Aug 02, 2017 Appointment Notes: Will call pt to establish time Visit Code E&M Code: 96811 Inventory Assets Strengths: Good person,Feels for others Needs: improved physical health, financial help Risk Factors Assessment : Yes /single/: Yes Higher / Fall in social status: No Health problems: Yes Mental Health Diagnoses: Yes Substance use disorders: No Previous attempt: Yes Previous attempt;highly lethal: Yes (Mutiple attempts: hanging, burning) Previous attempt; planned: Yes Previous psychiatric stay: Yes Hopelessness: No Smoker: No Protective Factors Assessment Jewish beliefs: Yes : No (But lives with long-term boyfriend) Responsible for young children: No Employed: No Stable relationships: Yes Supportive family: Yes (Speaks of 2 sisters frequently - Rachel and Genoveva) Good rapport with provider: Yes Data Vital Signs Last 24 Hrs: Date Time Temp Pulse Resp B/P (MAP) Pulse Ox O2 Delivery O2 Flow Rate FiO2 08/03/17 06:45 37.1 97 16 134/78 103 125/85 Meds Administered Last 24 Hrs: Meds Administered (Past 24Hrs) Medications (Trade) Dose Ordered Sig/Kelsey Route Start Time Stop Time Status Last Admin Dose Admin Clonazepam (Klonopin Tab) 1.5 mg HS PO 08/02/17 22:00 09/01/17 21:59 08/02/17 21:22 1.5 MG
[2017-08-03] MEDS: RISPERIDONE 1 MG TAB PO SCH (08:52)
[2017-08-03] MEDS: OMEGA-3 (PURIFIED FISH OIL) 1 GM CAP PO SCH ×2 (08:53→21:08)
[2017-08-03] MEDS: CEROVITE ADV FORMULA TAB PO SCH (08:53)
[2017-08-03] MEDS: LOSARTAN POTASSIUM 25 MG TAB PO SCH (08:53)
[2017-08-03] MEDS: TRIHEXYPHENIDYL HCL 2 MG TAB PO SCH ×2 (08:53→21:07)
[2017-08-03] MEDS: PANTOprazole SOD 40 MG TAB PO SCH (08:54)
[2017-08-03] MEDS: TOCOPHERYL, DL-ALPHA 400 INTER.UNIT CAP PO SCH (08:54)
[2017-08-03] MEDS: THIOTHIXENE 5 MG CAP PO SCH ×2 (08:54→21:08)
[2017-08-03] MEDS: MONTELUKAST SOD 10 MG TAB PO SCH (08:54)
[2017-08-03] MEDS: CHOLESTYRAMINE LIGHT 4 GM PKT PO SCH (14:12)
[2017-08-03] MEDS: TRAMADOL HCL 50 MG TAB PO PRN (19:25)
[2017-08-03] MEDS: MELATONIN 3 MG PO SCH (21:06)
[2017-08-03] MEDS: ZOLPIDEM TARTRATE 5 MG TAB PO SCH (21:07)
[2017-08-03] MEDS: LITHIUM CARBONATE 450 MG TABCR PO SCH (21:07)
[2017-08-03] MEDS: CLONAZEPAM 0.5 MG TAB PO SCH (21:07)
[2017-08-03] MEDS: ATORVASTATIN 10 MG TAB PO SCH (21:07)
[2017-08-03] MEDS: RISPERIDONE 3 MG TAB PO SCH (21:08)
[2017-08-03] MEDS: ACETAMINOPHEN 325 MG TAB PO PRN (21:23)
[2017-08-04] MEDS: TRAMADOL HCL 50 MG TAB PO PRN ×3 (02:50→18:17)
[2017-08-04 06:56] VITALS: BP_SYST 125; BP_SYST 138; BP_DIAS 81; BP_DIAS 83; PULSE 88; TEMP 37
[2017-08-04] MEDS: LOSARTAN POTASSIUM 25 MG TAB PO SCH (08:58)
[2017-08-04] MEDS: CEROVITE ADV FORMULA TAB PO SCH (08:58)
[2017-08-04] MEDS: TRIHEXYPHENIDYL HCL 2 MG TAB PO SCH ×2 (08:58→21:00)
[2017-08-04] MEDS: OMEGA-3 (PURIFIED FISH OIL) 1 GM CAP PO SCH ×2 (08:59→21:01)
[2017-08-04] MEDS: THIOTHIXENE 5 MG CAP PO SCH ×2 (08:59→21:01)
[2017-08-04] MEDS: MONTELUKAST SOD 10 MG TAB PO SCH (08:59)
[2017-08-04] MEDS: RISPERIDONE 1 MG TAB PO SCH (08:59)
[2017-08-04] MEDS: TOCOPHERYL, DL-ALPHA 400 INTER.UNIT CAP PO SCH (08:59)
[2017-08-04] MEDS: PANTOprazole SOD 40 MG TAB PO SCH (08:59)
--- NOTE | 2017-08-04 09:23 | Psychiatric Progress Notes ---
Progress Note Date of Service Aug 04, 2017. Interval History The patient is a 67 year old white female with multiple medical diagnosis and a longstanding history of Schizoaffective Disorder Bipolar Type with prior psychiatric hospitalizations. She is admitted voluntarily after lithium was decreased, and she developed psychotic stefan. Chief Complaint "I think that 3 other ribs are broken.". Subjective Patient was seen & assessed interval progress reviewed with Treatment Team. The patient says she is having pain in her right ribs today and thinks more are "cracked" than showed on xray. She is also complaining of bilateral knee pain. Nursing reports that she slept only 1 hour last night, and Brenda says that she was awake "worrying about Alex", and then begins to cry. she misses him and wishes she were home. She is denying any racing thoughts or elevated energy, saying that in fact, she is "worn down". She reports hearing voices that "say paranoid things" like that people don't like her, that she is stealing things from them. The voices are as real to her as my voice is. She denies visual disturbances. She expresses appreciation for her care here, saying that the staff are all "wonderful". Nursing reports that she is less intrusive into the nurses station. Review of Systems Constitutional: No fever, No chills, No sweats, No weight loss, No weakness, No fatigue, No problem reported ENT: + hearing loss Respiratory: No cough, No sputum, No wheezing, No shortness of breath, No dyspnea on exertion, No dyspnea at rest, No hemoptysis, No problem reported Cardiovascular: No chest pain, No orthopnea, No PND, No edema, No claudication , No palpitations, No problem reported Abdomen: No pain, No nausea, No vomiting, No diarrhea, No constipation, No GI bleeding, No problem reported Musculoskeletal: + joint pain (bilateral knees), + problem reported (rt rib pain) Neurologic: No memory loss, No paralysis, No weakness, No numbness/tingling, No vertigo, No balance problems, No problem reported Psychiatric: + anxiety, + insomnia Integumentary: No rash, No itch, No new/changing skin lesions, No color change , No bleeding, No problem reported Sleep Information Total Hours of Sleep: 1.00 Meal Information Percent of Breakfast Consumed: 100 Percent of Lunch Consumed: 0 Percent of Dinner Consumed: 75 Mental Status Exam During interview pt is: alert and oriented, cooperative Appearance: appropriately dressed (in 2 gowns), appropriately groomed Eye contact is: good Motor behavior is: no abnormal motor movements Speech: loud (inarticulate due to severe hearing loss) Affect: tearful (at times when talking of Alex), blunted Mood is: other ("I'm fine") Thought process: goal directed, flight of ideas Thought content: cognitive distortions Suicidal thought are: denied Homicidal thoughts are: denied Hallucinations: auditory, denies visual Cognition: other (all spheres impaired) Intelligence estimated to be: below average (intellectual disabilities) Insight: limited Judgement: limited Summary of Past History Spoke with Dr. Hahn and reviewed patient's history, lithium has been decreased by around 150mg twice in the past year, due to CKD and chronic diarrhea, not sure when last decreased exactly. Her GFR has been decreasing over the years. No other med changes have been made recently. There is also a communication challenge, in part due to her hearing difficulties. She is chronically distressed and rarely feels good, has a significant trauma history. Impression Slept only 1 hour last night, although nursing did not administer any haldol prn. Will encourage nursing to use the prns if not sleeping. Will also try increasing lithium to Lithobid 600 mg. HS with a level in 5 days. Will trend BMP in view of renal impairment, but at this point she is not having consistent response to atypicals alone, and her decompensation appears to have started when lithium was decreased. Plan (1) Schizoaffective disorder, chronic condition with acute exacerbation The patient is admitted to [facility] ([facility]) on q 15 min checks (behavioral with suicide precautions) for safety. The patient will participate in group, recreational and milieu therapies and will be offered additional individual and family sessions as clinically appropriate. - Continue Dwight 450 mg q HS. Hesitant to increase without records due to reported hx of renal insufficiency - Continue Sertraline 150 mg with plan to increase. Will add Sertraline 50 mg today as one time dose and begin Sertraline 200 mg in am. - Continue Risperdal. Additional 1 mg po BID prn A/A - Continue Navane. Consider split dose. - Await OP treatment records - Reviewed fasting labs from this am. 07/24 - Increase Risperdal to 1 mg. AM and 5 mg. HS - Increase Navane to include 5 mg AM - EKG tomorrow AM - BUN/creat in AM - Excuse from groups - Fall precautions - Increase Klonopin to 1 mg BID 07/25 -Continue risperidone 1 mg every morning and 5 mg nightly, thiothixene 5 mg every morning and 20 mg nightly, zolpidem 5 mg nightly, and lithium 450 mg nightly. -Continue risperidone 1 mg twice daily as needed. -If sleep does not regulate, consider consolidating antipsychotics to bedtime. -Continue decreased dose of sertraline, 100 mg daily, and decreased further if stefan does not improve. -BUN and creatinine rechecked today and unchanged from admission (BUN 20, creatinine 1.36). EKG sinus tachycardia, rate 127, QTc 499 (admission EKG NSR QTs 467). -Place patient in a medically necessary private room due to severity of stefan and disorganization. -Request records from her outpatient psychiatrist, Dr. Hahn, and spoke to her to coordinate care. Will need to review past med trials when records arrive , to look for potential alternatives to lithium (Depakote?) -Consult nephrology (Dr. Hays, below) re: kidney function and ability to continue lithium. 07/26 - Continue current meds - Consider switching Cogentin to Artane to better target akathisia 07/27 -Continue current medications, as patient continues to improve. She has follow-up appointments with her therapist on Tuesday, and psychiatrist on July. She will also need a follow-up appointment with her bankruptcy manager. 07/28 - Due to impaired sleep will increase HS risperdal to 6, navane to 25 - DC maury in favor of a trial of Artane for restlessness - UA and Stool for OB due to reports of blood in toilet 07/29 - Artane 2 mg. BID to target akathisia - Continue other meds and prn's 07/30 -Continue current medications, and enforce standard delirium precautions, as there may be an element of encephalopathy: Encourage the patient to be awake during the day, room dark and quiet at night, promote good sleep, frequent reorientation, use of written questions if she is not able to hear staff. -Boyfriend Alex is to visit today; we will check with him to see how far he thinks she is from baseline. 07/31 -Continue current medications, and contact Dr. Hahn tomorrow to review options for a different mood stabilizer in place of lithium, as her symptoms have demonstrated only minor improvement here, and doses of risperidone and thiothixene have been maximized. -Order x-ray of the right ribs to assess for fracture after a fall, will offer symptomatic treatment, and she has her home dose of tramadol ordered - acute appearing nondisplaced right anterior 10th rib fracture. Continue to offer symptomatic treatment, could wrap it if she is experiencing discomfort with movement or breathing, use of ice pack as needed. 08/01 - Continue current medications. Awaiting previous medication trials from Dr. Hahn, as favorable to Depakote, but allen states previous trial was activating. - Will need to weigh benefit of mood stabilization on Dwight with risk of harm to kidneys, as Dwight is not ideal with current kidney function, but a more favorable agent for mood stabilization may not be found given previous medication trials. - Continue to assess current condition with Alex villa, to gain feedback about patient's condition relative to baseline. 08/02 - Awaiting call from Dr. Hahn re: past med trials - Change Klonopin to 1.5 mg HS only 08/03 -Disorganization improving over the past couple of days, and we are working to consolidate sleep and limit daytime sedation from medications to decrease fall risk. 08/04 - Increase Dwight to Lithobid 600 mg. HS - Level in 5 days 08/09 - Trend BMP - Encourage use of prns at night if not sleeping. (2) Diabetes mellitus type 2 Continue to monitor for renal insufficiency. Recent UA reveal trace protein and her BUN/CR was 20/1.35 Hemoglobin A1 C ordered -5.3, with estimated average glucose of 105. Confirm glucose checks (3) Renal insufficiency 07/24 - BUN/creat mildly elevated on admission, will repeat in AM - Patient on lithium, sees Dr. Ovalles. If BUN/creat trend up, consider consult to consider if lithium safe to continue - Renal diet 07/25 -BUN and creatinine rechecked and are unchanged. Consult nephrology (Dr. Ovalles is her outpatient, spoke with Dr. Hays who is seeing consults today) re: her kidney disease and safety of continuing lithium. Dose has been decreased by her outpatient psychiatrist, who would also like assistance in determining safety of continuing lithium. She states Brenda's kidney function has been fairly stable over the past few years, so could continue lithium if no other options, but may want to consider a trial of another medication if a similarly effective one is available, to try to avoid progression of kidney disease/need for dialysis. If she continues on lithium, recommended BUN and creatinine q 6 months , and urine to check for proteinuria once a year. Dr. Ovalles saw her in Jun. and will see her again in September. (4) Hyperlipemia Continue home doses of atorvastatin and cholestyramine. (5) Gastroesophageal reflux disease Omeprazole is nonformulary, so give equivalent dose of Protonix. (6) Heart disease Continue home dose of losartan. 07/31/17 -stool occult blood negative. Discharge / Aftercare Planning Primary Care Physician: Name: Dr. Santos Galeano, [facility] [place] Psychiatrist: Name: Dr. Hahn, [facility] Date of Appointment: Aug 08, 2017 Time of Appointment: 2pm Therapist: Name: Katerina Valerio [facility] Date of Appointment: Aug 05, 2017 Time of Appointment: 1:00 pm Appointment Notes: [facility] , [address] Floor, [place] [address] Technical Aide: Name: Zulay Christianson [facility] Services: Home Health Services: social work lecturer, home health agency Home Health Agency: [facility] Date of Appointment: Aug 02, 2017 Appointment Notes: Will call pt to establish time Visit Code E&M Code: 73334 Inventory Assets Strengths: Good person,Feels for others Needs: improved physical health, financial help Risk Factors Assessment : Yes /single/: Yes Higher / Fall in social status: No Health problems: Yes Mental Health Diagnoses: Yes Substance use disorders: No Previous attempt: Yes Previous attempt;highly lethal: Yes (Mutiple attempts: hanging, burning) Previous attempt; planned: Yes Previous psychiatric stay: Yes Hopelessness: No Smoker: No Protective Factors Assessment Denominational beliefs: Yes : No (But lives with long-term boyfriend) Responsible for young children: No Employed: No Stable relationships: Yes Supportive family: Yes (Speaks of 2 sisters frequently - Rachel and Genoveva) Good rapport with provider: Yes Data Vital Signs Last 24 Hrs: Date Time Temp Pulse Resp B/P (MAP) Pulse Ox O2 Delivery O2 Flow Rate FiO2 08/04/17 06:56 37.0 88 18 125/83 88 138/81 Meds Administered Last 24 Hrs: Meds Administered (Past 24Hrs) Medications (Trade) Dose Ordered Sig/Kelsey Route Start Time Stop Time Status Last Admin Dose Admin Clonazepam (Klonopin Tab) 1.5 mg HS PO 08/02/17 22:00 09/01/17 21:59 08/03/17 21:07 1.5 MG Lab Results Last 24 Hrs: 07/22/17 16:03 Red Blood Count 3.87, Mean Corpuscular Volume 88.9, Mean Corpuscular Hemoglobin 28.9, Mean Corpuscular Hemoglobin Concent 32.6, Mean Platelet Volume 9.2, Neutrophils (%) (Auto) 71.9, Lymphocytes (%) (Auto) 13.5, Monocytes (%) (Auto) 10.3, Eosinophils (%) (Auto) 3.3, Basophils (%) (Auto) 0.5, Neutrophils # (Auto ) 4.31, Lymphocytes # (Auto) 0.81, Monocytes # (Auto) 0.62, Eosinophils # (Auto ) 0.20, Basophils # (Auto) 0.03 07/22/17 16:03 07/25/17 07:08 Test 07/22/17 14:50 07/22/17 16:03 07/23/17 07:17 07/25/17 07:08 Urine Opiates Screen NEG (NEG) Urine Methadone, Qualitative NEG (NEG) Urine Barbiturates NEG (NEG) Urine Phencyclidine (PCP) Level NEG (NEG) Ur Amphetamine/Methamphetamine NEG (NEG) MDMA (Ecstasy) Screen NEG (NEG) Urine Benzodiazepines Screen NEG (NEG) Urine Cocaine Metabolite NEG (NEG) Urine Marijuana (THC) NEG (NEG) White Blood Count 6.00 K/uL (4.8-10.8) Red Blood Count 3.87 M/uL (4.2-5.4) Hemoglobin 11.2 g/dL (12.0-16.0) Hematocrit 34.4 % (37-47) Mean Corpuscular Volume 88.9 fL (80-100) Mean Corpuscular Hemoglobin 28.9 pg (25-34) Mean Corpuscular Hemoglobin Concent 32.6 g/dl (32-36) Platelet Count 226 K/uL (130-400) Mean Platelet Volume 9.2 fL (7.4-10.4) Neutrophils (%) (Auto) 71.9 % Lymphocytes (%) (Auto) 13.5 % Monocytes (%) (Auto) 10.3 % Eosinophils (%) (Auto) 3.3 % Basophils (%) (Auto) 0.5 % Neutrophils # (Auto) 4.31 K/uL (1.4-6.5) Lymphocytes # (Auto) 0.81 K/uL (1.2-3.4) Monocytes # (Auto) 0.62 K/uL (0.11-0.59) Eosinophils # (Auto) 0.20 K/uL (0-0.5) Basophils # (Auto) 0.03 K/uL (0-0.2) RDW Standard Deviation 48.9 fL (36.4-46.3) RDW Coefficient of Variation 15.1 % (11.5-14.5) Immature Granulocyte % (Auto) 0.5 % Immature Granulocyte # (Auto) 0.03 K/uL (0.00-0.02) Anion Gap 7.0 mmol/L (3-11) Estimated Average Glucose 105 mg/dl Hemoglobin A1c 5.3 % (4.5-5.6) Calcium Level 9.8 mg/dl (8.5-10.1) Total Bilirubin 0.3 mg/dl (0.2-1) Direct Bilirubin < 0.1 mg/dl (0-0.2) Aspartate Amino Transf (AST/SGOT) 17 U/L (15-37) Alanine Aminotransferase (ALT/SGPT) 33 U/L (12-78) Alkaline Phosphatase 121 U/L (45-117) Total Protein 8.2 gm/dl (6.4-8.2) Albumin 3.9 gm/dl (3.4-5.0) Thyroid Stimulating Hormone (TSH) 3.260 uIu/ml (0.300-4.500) Salicylates Level < 1.7 mg/dl (2.8-20) Acetaminophen Level < 2 ug/ml (10-30) Ethyl Alcohol mg/dL < 3.0 mg/dl (0-3) Fasting Glucose 129 mg/dl (70-99) Triglycerides Level 151 mg/dl (0-150) Cholesterol Level 165 mg/dl (0-200) HDL Cholesterol 56 mg/dl LDL Cholesterol, Calculated 79 mg/dl VLDL Cholesterol, Calculated 30 mg/dl Cholesterol/HDL Ratio 2.9 Dwight Level 0.6 mMOL/L (0.6-1.2) Est Creatinine Clear Calc Drug Dose 35.2 ml/min Estimated GFR () 47.2 Estimated GFR (Non- 40.7 BUN/Creatinine Ratio 14.9 (10-20) Test 07/28/17 12:20 07/30/17 00:00 Urine Color YELLOW Urine Appearance CLEAR (CLEAR) Urine pH 5.5 (4.5-7.5) Urine Specific Pioneer 1.005 (1.000-1.030) Urine Protein NEG (NEG) Urine Glucose (UA) NEG (NEG) Urine Ketones NEG (NEG) Urine Occult Blood NEG (NEG) Urine Nitrite NEG (NEG) Urine Bilirubin NEG (NEG) Urine Urobilinogen NEG (NEG) Urine Leukocyte Esterase SMALL (NEG) Urine WBC (Auto) /hpf (0-5) Urine RBC (Auto) /hpf (0-4) Urine Hyaline Casts (Auto) /lpf (0-5) Urine Epithelial Cells (Auto) /lpf (0-5) Urine Bacteria (Auto) (NEG) Urine RBC 0-4 /hpf (0-4) Urine WBC 1-5 /hpf (0-5) Urine Epithelial Cells 5-10 /lpf (0-5) Urine Bacteria NEG (NEG) Stool Occult Blood NEGATIVE (NEGATIVE)
[2017-08-04] MEDS: CHOLESTYRAMINE LIGHT 4 GM PKT PO SCH (14:07)
[2017-08-04] MEDS: hydrOXYzine HCL 25 MG TAB PO PRN (17:38)
[2017-08-04] MEDS: MELATONIN 3 MG PO SCH (20:58)
[2017-08-04] MEDS: ZOLPIDEM TARTRATE 5 MG TAB PO SCH (20:59)
[2017-08-04] MEDS: CLONAZEPAM 0.5 MG TAB PO SCH (21:00)
[2017-08-04] MEDS: ATORVASTATIN 10 MG TAB PO SCH (21:00)
[2017-08-04] MEDS: LITHIUM CARBONATE SR 300 MG TAB (LITHOBID) PO SCH (21:00)
[2017-08-04] MEDS: RISPERIDONE 3 MG TAB PO SCH (21:01)
[2017-08-04] MEDS: ACETAMINOPHEN 325 MG TAB PO PRN (21:02)
[2017-08-05] MEDS: TRAMADOL HCL 50 MG TAB PO PRN ×3 (02:57→19:41)
[2017-08-05 06:33] VITALS: BP_SYST 168; BP_SYST 169; BP_DIAS 80; BP_DIAS 81; PULSE 103; PULSE 99; TEMP 37.3
[2017-08-05] MEDS: TRIHEXYPHENIDYL HCL 2 MG TAB PO SCH ×2 (08:15→20:41)
[2017-08-05] MEDS: CEROVITE ADV FORMULA TAB PO SCH (08:16)
[2017-08-05] MEDS: LOSARTAN POTASSIUM 25 MG TAB PO SCH (08:16)
[2017-08-05] MEDS: OMEGA-3 (PURIFIED FISH OIL) 1 GM CAP PO SCH ×2 (08:16→20:44)
[2017-08-05] MEDS: PANTOprazole SOD 40 MG TAB PO SCH (08:16)
[2017-08-05] MEDS: THIOTHIXENE 5 MG CAP PO SCH ×2 (08:16→20:44)
[2017-08-05] MEDS: TOCOPHERYL, DL-ALPHA 400 INTER.UNIT CAP PO SCH (08:17)
[2017-08-05] MEDS: MONTELUKAST SOD 10 MG TAB PO SCH (08:17)
[2017-08-05] MEDS: RISPERIDONE 1 MG TAB PO SCH (08:17)
[2017-08-05] MEDS: RISPERIDONE 1 MG TAB PO PRN (09:45)
--- NOTE | 2017-08-05 09:53 | Psych Management Progress Note ---
Psychiatry Miscellaneous Date of Service: Aug 05, 2017. Patient seen, MS assessed. Rates mood as improving thought slept poorly. Encouraged cooperation with care and treatment plan as outlined by allied health prescriber.
--- NOTE | 2017-08-05 09:56 | Psychiatric Progress Notes ---
Progress Note Date of Service Aug 05, 2017. Interval History The patient is a 67 year old white female with multiple medical diagnosis and a longstanding history of Schizoaffective Disorder Bipolar Type with prior psychiatric hospitalizations. She is admitted voluntarily after lithium was decreased, and she developed psychotic stefan. Chief Complaint "I hear a voice saying mean things.". Subjective Patient was seen & assessed interval progress reviewed with Treatment Team. The patient is sitting in the chair in the bunch outside of her room. She is pleasant, cooperative, and wearing her hearing aid. She reports that her mood has been "good and bad", usually bad when she hasn't slept. She reports hearing a voice that "says mean things, calls me names", but denies visual hallucinations. She misses Alex and is anxious to be able to go home with him. she asks again about getting a job, perhaps at [employer], but I again discourage this at this time. She says that she gets "confused" easily, meaning that when she has a problem, she can't think through a solution alone. She talks about her relationship with Alex, that they have been together for more than 30 years. They haven't gotten because that would put them at a financial disadvantage. They have to take a taxi everywhere they go, because Alex doesn't like the [employer] system, and this causes a lot of financial hardship. She denies SI/HI. Review of Systems Constitutional: No fever, No chills, No sweats, No weight loss, No weakness, No fatigue, No problem reported ENT: + hearing loss (severe) Respiratory: No cough, No sputum, No wheezing, No shortness of breath, No dyspnea on exertion, No dyspnea at rest, No hemoptysis, No problem reported Cardiovascular: No chest pain, No orthopnea, No PND, No edema, No claudication , No palpitations, No problem reported Abdomen: No pain, No nausea, No vomiting, No diarrhea, No constipation, No GI bleeding, No problem reported Musculoskeletal: + joint pain (multiple) Neurologic: No memory loss, No paralysis, No weakness, No numbness/tingling, No vertigo, No balance problems, No problem reported Psychiatric: + problem reported (aud hallucinations) Integumentary: No rash, No itch, No new/changing skin lesions, No color change , No bleeding, No problem reported Sleep Information Total Hours of Sleep: 4.50 Meal Information Percent of Breakfast Consumed: 100 Percent of Lunch Consumed: 0 Percent of Dinner Consumed: 100 Mental Status Exam During interview pt is: alert and oriented, cooperative Appearance: appropriately dressed, appropriately groomed Eye contact is: good Motor behavior is: tremor (rt hand) Speech: loud (inarticulate due to severe hearing loss) Affect: blunted Mood is: other ("Good and bad.") Thought process: goal directed, tangential Thought content: cognitive distortions Suicidal thought are: denied Homicidal thoughts are: denied Hallucinations: auditory, denies visual Cognition: other (all spheres impaired) Intelligence estimated to be: average Insight: limited Judgement: limited Summary of Past History Spoke with Dr. Hahn and reviewed patient's history, lithium has been decreased by around 150mg twice in the past year, due to CKD and chronic diarrhea, not sure when last decreased exactly. Her GFR has been decreasing over the years. No other med changes have been made recently. There is also a communication challenge, in part due to her hearing difficulties. She is chronically distressed and rarely feels good, has a significant trauma history. Impression SLeep minimally improved last night. Is reporting lability to her moods. LIthium increased last night with level on the 10th. Her boyfriend Alex has managed to take the next week off of work to be with her and we would like for her to be able to go home under his supervision, but would like to see more consistent sleep. Still no use of prns on drip box tender despite not sleeping, so will again encourage them to use Risperdal &/or haldol if not sleeping. Plan (1) Schizoaffective disorder, chronic condition with acute exacerbation The patient is admitted to [facility] ([facility]) on q 15 min checks (behavioral with suicide precautions) for safety. The patient will participate in group, recreational and milieu therapies and will be offered additional individual and family sessions as clinically appropriate. - Continue [place] 450 mg q HS. Hesitant to increase without records due to reported hx of renal insufficiency - Continue Sertraline 150 mg with plan to increase. Will add Sertraline 50 mg today as one time dose and begin Sertraline 200 mg in am. - Continue Risperdal. Additional 1 mg po BID prn A/A - Continue Navane. Consider split dose. - Await OP treatment records - Reviewed fasting labs from this am. 07/24 - Increase Risperdal to 1 mg. AM and 5 mg. HS - Increase Navane to include 5 mg AM - EKG tomorrow AM - BUN/creat in AM - Excuse from groups - Fall precautions - Increase Klonopin to 1 mg BID 07/25 -Continue risperidone 1 mg every morning and 5 mg nightly, thiothixene 5 mg every morning and 20 mg nightly, zolpidem 5 mg nightly, and lithium 450 mg nightly. -Continue risperidone 1 mg twice daily as needed. -If sleep does not regulate, consider consolidating antipsychotics to bedtime. -Continue decreased dose of sertraline, 100 mg daily, and decreased further if stefan does not improve. -BUN and creatinine rechecked today and unchanged from admission (BUN 20, creatinine 1.36). EKG sinus tachycardia, rate 127, QTc 499 (admission EKG NSR QTs 467). -Place patient in a medically necessary private room due to severity of stefan and disorganization. -Request records from her outpatient psychiatrist, Dr. Hahn, and spoke to her to coordinate care. Will need to review past med trials when records arrive , to look for potential alternatives to lithium (Depakote?) -Consult nephrology (Dr. Hays, below) re: kidney function and ability to continue lithium. 07/26 - Continue current meds - Consider switching Cogentin to Artane to better target akathisia 07/27 -Continue current medications, as patient continues to improve. She has follow-up appointments with her therapist on Tuesday, and psychiatrist on July. 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 07/28 - Due to impaired sleep will increase HS risperdal to 6, navane to 25 - DC maury in favor of a trial of Artane for restlessness - UA and Stool for OB due to reports of blood in toilet 07/29 - Artane 2 mg. BID to target akathisia - Continue other meds and prn's 07/30 -Continue current medications, and enforce standard delirium precautions, as there may be an element of encephalopathy: Encourage the patient to be awake during the day, room dark and quiet at night, promote good sleep, frequent reorientation, use of written questions if she is not able to hear staff. -Boyfriend Alex is to visit today; we will check with him to see how far he thinks she is from baseline. 07/31 -Continue current medications, and contact Dr. Hahn tomorrow to review options for a different mood stabilizer in place of lithium, as her symptoms have demonstrated only minor improvement here, and doses of risperidone and thiothixene have been maximized. -Order x-ray of the right ribs to assess for fracture after a fall, will offer symptomatic treatment, and she has her home dose of tramadol ordered - acute appearing nondisplaced right anterior 10th rib fracture. Continue to offer symptomatic treatment, could wrap it if she is experiencing discomfort with movement or breathing, use of ice pack as needed. 08/01 - Continue current medications. Awaiting previous medication trials from Dr. Hahn, as favorable to Depakote, but allen states previous trial was activating. - Will need to weigh benefit of mood stabilization on [place] with risk of harm to kidneys, as [place] is not ideal with current kidney function, but a more favorable agent for mood stabilization may not be found given previous medication trials. - Continue to assess current condition with Alex villa, to gain feedback about patient's condition relative to baseline. 08/02 - Awaiting call from Dr. Hahn re: past med trials - Change Klonopin to 1.5 mg HS only 08/03 -Disorganization improving over the past couple of days, and we are working to consolidate sleep and limit daytime sedation from medications to decrease fall risk. 08/04 - Increase [place] to Lithobid 600 mg. HS - Level in 5 days 08/09 - Trend BMP - Encourage use of prns at night if not sleeping. 08/05 - Encourage use of prns at night if not sleeping. (2) Diabetes mellitus type 2 Continue to monitor for renal insufficiency. Recent UA reveal trace protein and her BUN/CR was 20/1.35 Hemoglobin A1 C ordered -5.3, with estimated average glucose of 105. Confirm glucose checks (3) Renal insufficiency 07/24 - BUN/creat mildly elevated on admission, will repeat in AM - Patient on lithium, sees Dr. Ovalles. If BUN/creat trend up, consider consult to consider if lithium safe to continue - Renal diet 07/25 -BUN and creatinine rechecked and are unchanged. Consult nephrology (Dr. Ovalles is her outpatient, spoke with Dr. Hays who is seeing consults today) re: her kidney disease and safety of continuing lithium. Dose has been decreased by her outpatient psychiatrist, who would also like assistance in determining safety of continuing lithium. She states Talis kidney function has been fairly stable over the past few years, so could continue lithium if no other options, but may want to consider a trial of another medication if a similarly effective one is available, to try to avoid progression of kidney disease/need for dialysis. If she continues on lithium, recommended BUN and creatinine q 6 months , and urine to check for proteinuria once a year. Dr. Ovalles saw her in Jun. and will see her again in September. (4) Hyperlipemia Continue home doses of atorvastatin and cholestyramine. (5) Gastroesophageal reflux disease Omeprazole is nonformulary, so give equivalent dose of Protonix. (6) Heart disease Continue home dose of losartan. 07/31/17 -stool occult blood negative. Discharge / Aftercare Planning Primary Care Physician: [place]. [place] [facility] [place] [facility] Psych[place]rist: Name: Dr. Hahn, [facility] Date of Appointment: Aug 08, 2017 Time of Appointment: 2pm Therapist: Name: Greyson Silverio [facility] Date of Appointment: Aug 12, 2017 Time of Appointment: 1:00 pm Appointment Notes: [facility] , [address], [place] [address] Resources Representative: Name: Zulay Christianson Home Health Services: Home Health Services: social studies department chair, home health agency Home Health Agency: [facility] Date of Appointment: Aug 02, 2017 Appointment Notes: Will call pt to establish time Visit Code E&M Code: 77706 Inventory Assets Strengths: Good person,Feels for others Needs: improved physical health, financial help Risk Factors Assessment : Yes /single/: Yes Higher / Fall in social status: No Health problems: Yes Mental Health Diagnoses: Yes Substance use disorders: No Previous attempt: Yes Previous attempt;highly lethal: Yes (Mutiple attempts: hanging, burning) Previous attempt; planned: Yes Previous psychiatric stay: Yes Hopelessness: No Smoker: No Protective Factors Assessment Congregation beliefs: Yes : No (But lives with long-term boyfriend) Responsible for young children: No Employed: No Stable relationships: Yes Supportive family: Yes (Speaks of 2 sisters frequently - Rachel and Genoveva) Good rapport with provider: Yes Data Vital Signs Last 24 Hrs: Date Time Temp Pulse Resp B/P (MAP) Pulse Ox O2 Delivery O2 Flow Rate FiO2 08/05/17 06:33 37.3 99 20 169/80 103 168/81 Meds Administered Last 24 Hrs: Meds Administered (Past 24Hrs) Medications (Trade) Dose Ordered Sig/Kelsey Route Start Time Stop Time Status Last Admin Dose Admin [place] Carbonate (Lithobid Tab) 600 mg HS PO 08/04/17 22:00 09/03/17 21:59 08/04/17 21:00 600 MG Lab Results Last 24 Hrs: 07/22/17 16:03 Red Blood Count 3.87, Mean Corpuscular Volume 88.9, Mean Corpuscular Hemoglobin 28.9, Mean Corpuscular Hemoglobin Concent 32.6, Mean Platelet Volume 9.2, Neutrophils (%) (Auto) 71.9, Lymphocytes (%) (Auto) 13.5, Monocytes (%) (Auto) 10.3, Eosinophils (%) (Auto) 3.3, Basophils (%) (Auto) 0.5, Neutrophils # (Auto ) 4.31, Lymphocytes # (Auto) 0.81, Monocytes # (Auto) 0.62, Eosinophils # (Auto ) 0.20, Basophils # (Auto) 0.03 07/22/17 16:03 07/25/17 07:08 Test 07/22/17 14:50 07/22/17 16:03 07/23/17 07:17 07/25/17 07:08 Urine Opiates Screen NEG (NEG) Urine Methadone, Qualitative NEG (NEG) Urine Barbiturates NEG (NEG) Urine Phencyclidine (PCP) Level NEG (NEG) Ur Amphetamine/Methamphetamine NEG (NEG) MDMA (Ecstasy) Screen NEG (NEG) Urine Benzodiazepines Screen NEG (NEG) Urine Cocaine Metabolite NEG (NEG) Urine Marijuana (THC) NEG (NEG) White Blood Count 6.00 K/uL (4.8-10.8) Red Blood Count 3.87 M/uL (4.2-5.4) Hemoglobin 11.2 g/dL (12.0-16.0) Hematocrit 34.4 % (37-47) Mean Corpuscular Volume 88.9 fL (80-100) Mean Corpuscular Hemoglobin 28.9 pg (25-34) Mean Corpuscular Hemoglobin Concent 32.6 g/dl (32-36) Platelet Count 226 K/uL (130-400) Mean Platelet Volume 9.2 fL (7.4-10.4) Neutrophils (%) (Auto) 71.9 % Lymphocytes (%) (Auto) 13.5 % Monocytes (%) (Auto) 10.3 % Eosinophils (%) (Auto) 3.3 % Basophils (%) (Auto) 0.5 % Neutrophils # (Auto) 4.31 K/uL (1.4-6.5) Lymphocytes # (Auto) 0.81 K/uL (1.2-3.4) Monocytes # (Auto) 0.62 K/uL (0.11-0.59) Eosinophils # (Auto) 0.20 K/uL (0-0.5) Basophils # (Auto) 0.03 K/uL (0-0.2) RDW Standard Deviation 48.9 fL (36.4-46.3) RDW Coefficient of Variation 15.1 % (11.5-14.5) Immature Granulocyte % (Auto) 0.5 % Immature Granulocyte # (Auto) 0.03 K/uL (0.00-0.02) Anion Gap 7.0 mmol/L (3-11) Estimated Average Glucose 105 mg/dl Hemoglobin A1c 5.3 % (4.5-5.6) Calcium Level 9.8 mg/dl (8.5-10.1) Total Bilirubin 0.3 mg/dl (0.2-1) Direct Bilirubin < 0.1 mg/dl (0-0.2) Aspartate Amino Transf (AST/SGOT) 17 U/L (15-37) Alanine Aminotransferase (ALT/SGPT) 33 U/L (12-78) Alkaline Phosphatase 121 U/L (45-117) Total Protein 8.2 gm/dl (6.4-8.2) Albumin 3.9 gm/dl (3.4-5.0) Thyroid Stimulating Hormone (TSH) 3.260 uIu/ml (0.300-4.500) Salicylates Level < 1.7 mg/dl (2.8-20) Acetaminophen Level < 2 ug/ml (10-30) Ethyl Alcohol mg/dL < 3.0 mg/dl (0-3) Fasting Glucose 129 mg/dl (70-99) Triglycerides Level 151 mg/dl (0-150) Cholesterol Level 165 mg/dl (0-200) HDL Cholesterol 56 mg/dl LDL Cholesterol, Calculated 79 mg/dl VLDL Cholesterol, Calculated 30 mg/dl Cholesterol/HDL Ratio 2.9 [place] Level 0.6 mMOL/L (0.6-1.2) Est Creatinine Clear Calc Drug Dose 35.2 ml/min Estimated GFR () 47.2 Estimated GFR (Non- 40.7 BUN/Creatinine Ratio 14.9 (10-20) Test 07/28/17 12:20 07/30/17 00:00 Urine Color YELLOW Urine Appearance CLEAR (CLEAR) Urine pH 5.5 (4.5-7.5) Urine Specific Paul 1.005 (1.000-1.030) Urine Protein NEG (NEG) Urine Glucose (UA) NEG (NEG) Urine Ketones NEG (NEG) Urine Occult Blood NEG (NEG) Urine Nitrite NEG (NEG) Urine Bilirubin NEG (NEG) Urine Urobilinogen NEG (NEG) Urine Leukocyte Esterase SMALL (NEG) Urine WBC (Auto) /hpf (0-5) Urine RBC (Auto) /hpf (0-4) Urine Hyaline Casts (Auto) /lpf (0-5) Urine Epithelial Cells (Auto) /lpf (0-5) Urine Bacteria (Auto) (NEG) Urine RBC 0-4 /hpf (0-4) Urine WBC 1-5 /hpf (0-5) Urine Epithelial Cells 5-10 /lpf (0-5) Urine Bacteria NEG (NEG) Stool Occult Blood NEGATIVE (NEGATIVE)
[2017-08-05] MEDS: CHOLESTYRAMINE LIGHT 4 GM PKT PO SCH (14:36)
[2017-08-05] MEDS: ZOLPIDEM TARTRATE 5 MG TAB PO SCH (20:41)
[2017-08-05] MEDS: CLONAZEPAM 0.5 MG TAB PO SCH (20:42)
[2017-08-05] MEDS: LITHIUM CARBONATE SR 300 MG TAB (LITHOBID) PO SCH (20:42)
[2017-08-05] MEDS: ATORVASTATIN 10 MG TAB PO SCH (20:42)
[2017-08-05] MEDS: MELATONIN 3 MG PO SCH (20:43)
[2017-08-05] MEDS: RISPERIDONE 3 MG TAB PO SCH (20:45)
[2017-08-05] MEDS: ACETAMINOPHEN 325 MG TAB PO PRN (20:46)
[2017-08-06] MEDS ORDERED: THIOTHIXENE 5 MG CAP PO SCH ×2
[2017-08-06] MEDS ORDERED: TRIHEXYPHENIDYL HCL 2 MG TAB PO SCH
[2017-08-06] MEDS: HALOPERIDOL 5 MG TAB PO PRN ×2 (03:38→21:59)
[2017-08-06] MEDS: TRAMADOL HCL 50 MG TAB PO PRN ×2 (03:39→09:26)
[2017-08-06 08:57] VITALS: BP 133/78; PULSE 106
[2017-08-06] MEDS: TRIHEXYPHENIDYL HCL 2 MG TAB PO SCH ×2 (09:22→21:48)
[2017-08-06] MEDS: RISPERIDONE 1 MG TAB PO SCH (09:23)
[2017-08-06] MEDS: THIOTHIXENE 5 MG CAP PO SCH ×2 (09:23→21:56)
[2017-08-06] MEDS: MONTELUKAST SOD 10 MG TAB PO SCH (09:23)
[2017-08-06] MEDS: OMEGA-3 (PURIFIED FISH OIL) 1 GM CAP PO SCH ×2 (09:23→21:56)
[2017-08-06] MEDS: CEROVITE ADV FORMULA TAB PO SCH (09:23)
[2017-08-06] MEDS: LOSARTAN POTASSIUM 25 MG TAB PO SCH (09:23)
[2017-08-06] MEDS: PANTOprazole SOD 40 MG TAB PO SCH (09:23)
[2017-08-06] MEDS: TOCOPHERYL, DL-ALPHA 400 INTER.UNIT CAP PO SCH (09:23)
[2017-08-06 09:27] LABS: CALCIUM 9.7 mg/dl (8.5-10.1); CREATININE 1.57 mg/dl (0.60-1.20); POTASSIUM 4.3 mmol/L (3.5-5.1)
[2017-08-06] MEDS ORDERED: RSP1 PO (09:42)
[2017-08-06] MEDS ORDERED: TRIH2TAB3 PO (09:42)
[2017-08-06] MEDS ORDERED: [UNRECOGNIZED DRUG - CODE] PO (09:42)
[2017-08-06] MEDS ORDERED: LTHCR300 PO (09:42)
[2017-08-06] MEDS ORDERED: RSP3 PO (09:42)
[2017-08-06] MEDS ORDERED: THIO10CA PO (09:42)
[2017-08-06] MEDS ORDERED: HLD5 PO (09:42)
--- NOTE | 2017-08-06 10:22 | Psychiatric Progress Notes ---
Progress Note Date of Service Aug 06, 2017. Interval History The patient is a 67 year old white female with multiple medical diagnosis and a longstanding history of Schizoaffective Disorder Bipolar Type with prior psychiatric hospitalizations. She is admitted voluntarily after lithium was decreased, and she developed psychotic stefan. Chief Complaint "I'm doing ok, I can't hear"". Subjective Patient was seen & assessed interval progress reviewed with Treatment Team. The patient is calm in demeanor and cooperative. She is easily flustered though and disorganized when her hearing aid fails her. She is wearing her hearing aid and is having a hard time adjusting it but with help and it working she easily redirects. When asked how she is today, she states "pain is bad, my arthritis is acting and I want a scooter with a big basket". States her rib hurts as well. Denies Chest pain or SOB. She reports that her mood has been "mostly happy today but feels really really sad too". She denies feeling overly anxious but admits to some anxiety being away from her long time paramour [facility] as it is hard on her and on him. She reports non command auditory hallucinations since childhood and states the voices tell her " bad things about herself. She states thay say "I'm not worth anything, not worth the gunpowder to hurt myself with". She also reports chronic intermittent visual hallucinations described as "dark spirts" and she says "i just ignore them". She also reports sleeping 8 hours but actually only slept 4.5 hours. She feels rested but admits to feeling restless. She reports eating well on the unit, going to groups. She had her labs drawn today without problems. She is looking forward to discharge from the unit and seeing [facility] soon. She is hoping to get a job but admits it probably won't happen. She worries about finances. She reports chronic suicidal thinking since childhood relating "its all the bad stuff that happened" but admits she will never act on these thoughts. She denies plan or intent. She denies HI plan or intent. Review of Systems Psych: denies symptoms other than stated above Constitutional: denied Cardiovascular: denied GI: denied Neurologic: denied Remainder of 10 body systems also reviewed and denied other than noted above. Sleep Information Total Hours of Sleep: 4.75 Meal Information Percent of Breakfast Consumed: 100 Percent of Lunch Consumed: 50 Percent of Dinner Consumed: 100 Mental Status Exam During interview pt is: alert and oriented, cooperative Appearance: appropriately dressed, appropriately groomed Eye contact is: good Motor behavior is: tremor (rt hand) Speech: loud (inarticulate due to severe hearing loss) Affect: blunted Mood is: other ("Good and bad.") Thought process: goal directed, tangential Thought content: cognitive distortions Suicidal thought are: denied Homicidal thoughts are: denied Hallucinations: auditory, denies visual Cognition: other (all spheres impaired) Intelligence estimated to be: average Insight: limited Judgement: limited Summary of Past History Spoke with Dr. Hahn and reviewed patient's history, lithium has been decreased by around 150mg twice in the past year, due to CKD and chronic diarrhea, not sure when last decreased exactly. Her GFR has been decreasing over the years. No other med changes have been made recently. There is also a communication challenge, in part due to her hearing difficulties. She is chronically distressed and rarely feels good, has a significant trauma history. Andreia Gutierrez continues with some mood lability and chronic A/V hallucinations as well as chronic thoughts of suicidality no worse than previous. She denies having any plan or intent. She is sleeping 4.5 hours which has minimally improved. I encouraged use of prn Haldol on unit at HS for sleep as it does work when she takes it. She may benefit from short term use of prns for sleep upon discharge. She continues with mood lability but is not over the top. Her [place] was increased and levels will be drawn on the 10th. Labs drawn this am were for . She is looking forward to discharge to be with her male paramour Alex. He is quite a help to her, essentially her caregiver and she trusts him. Plan (1) Schizoaffective disorder, chronic condition with acute exacerbation The patient is admitted to [facility] on q 15 min checks (behavioral with suicide precautions) for safety. The patient will participate in group, recreational and milieu therapies and will be offered additional individual and family sessions as clinically appropriate. - Continue [place] 450 mg q HS. Hesitant to increase without records due to reported hx of renal insufficiency - Continue Sertraline 150 mg with plan to increase. Will add Sertraline 50 mg today as one time dose and begin Sertraline 200 mg in am. - Continue Risperdal. Additional 1 mg po BID prn A/A - Continue Navane. Consider split dose. - Await OP treatment records - Reviewed fasting labs from this am. 07/24 - Increase Risperdal to 1 mg. AM and 5 mg. HS - Increase Navane to include 5 mg AM - EKG tomorrow AM - BUN/creat in AM - Excuse from groups - Fall precautions - Increase Klonopin to 1 mg BID 07/25 -Continue risperidone 1 mg every morning and 5 mg nightly, thiothixene 5 mg every morning and 20 mg nightly, zolpidem 5 mg nightly, and lithium 450 mg nightly. -Continue risperidone 1 mg twice daily as needed. -If sleep does not regulate, consider consolidating antipsychotics to bedtime. -Continue decreased dose of sertraline, 100 mg daily, and decreased further if stefan does not improve. -BUN and creatinine rechecked today and unchanged from admission (BUN 20, creatinine 1.36). EKG sinus tachycardia, rate 127, QTc 499 (admission EKG NSR QTs 467). -Place patient in a medically necessary private room due to severity of stefan and disorganization. -Request records from her outpatient psychiatrist, Dr. Hahn, and spoke to her to coordinate care. Will need to review past med trials when records arrive , to look for potential alternatives to lithium (Depakote?) -Consult nephrology (Dr. Hays, below) re: kidney function and ability to continue lithium. 07/26 - Continue current meds - Consider switching Cogentin to Artane to better target akathisia 07/27 -Continue current medications, as patient continues to improve. She has follow-up appointments with her therapist on Tuesday, and psychiatrist on July. She will also need a follow-up appointment with her residential housekeeper. 07/28 - Due to impaired sleep will increase HS risperdal to 6, navane to 25 - DC cogruma in favor of a trial of Artane for restlessness - UA and Stool for OB due to reports of blood in toilet 07/29 - Artane 2 mg. BID to target akathisia - Continue other meds and prn's 07/30 -Continue current medications, and enforce standard delirium precautions, as there may be an element of encephalopathy: Encourage the patient to be awake during the day, room dark and quiet at night, promote good sleep, frequent reorientation, use of written questions if she is not able to hear staff. -Boyfriend Alex is to visit today; we will check with him to see how far he thinks she is from baseline. 07/31 -Continue current medications, and contact Dr. Hahn tomorrow to review options for a different mood stabilizer in place of lithium, as her symptoms have demonstrated only minor improvement here, and doses of risperidone and thiothixene have been maximized. -Order x-ray of the right ribs to assess for fracture after a fall, will offer symptomatic treatment, and she has her home dose of tramadol ordered - acute appearing nondisplaced right anterior 10th rib fracture. Continue to offer symptomatic treatment, could wrap it if she is experiencing discomfort with movement or breathing, use of ice pack as needed. 08/01 - Continue current medications. Awaiting previous medication trials from Dr. Hahn, as favorable to Depakote, but allen states previous trial was activating. - Will need to weigh benefit of mood stabilization on [place] with risk of harm to kidneys, as [place] is not ideal with current kidney function, but a more favorable agent for mood stabilization may not be found given previous medication trials. - Continue to assess current condition with Alex villa, to gain feedback about patient's condition relative to baseline. 08/02 - Awaiting call from Dr. Hahn re: past med trials - Change Klonopin to 1.5 mg HS only 08/03 -Disorganization improving over the past couple of days, and we are working to consolidate sleep and limit daytime sedation from medications to decrease fall risk. 08/04 - Increase [place] to Lithobid 600 mg. HS - Level in 5 days 08/09 - Trend BMP - Encourage use of prns at night if not sleeping. 08/05 - Encourage use of prns at night if not sleeping. 08/06 -Plan for discharge tomorrow. Patient cared for by her male paramour Alex. [facility] also contacted for services. - Encouraged use of prns meds for sleep as sleep hours are not optimal. Will plan for short term prn Haldol at HS upon discharge. - Recommend outpatient follow up with PCP for chronic arthritis pain and also rib fracture pain. (2) Diabetes mellitus type 2 Continue to monitor for renal insufficiency. Recent UA reveal trace protein and her BUN/CR was 20/1.35 Hemoglobin A1 C ordered -5.3, with estimated average glucose of 105. Confirm glucose checks (3) Renal insufficiency 07/24 - BUN/creat mildly elevated on admission, will repeat in AM - Patient on lithium, sees Dr. Ovalles. If BUN/creat trend up, consider consult to consider if lithium safe to continue - Renal diet 07/25 -BUN and creatinine rechecked and are unchanged. Consult nephrology (Dr. Ovalles is her outpatient, spoke with Dr. Hyas who is seeing consults today) re: her kidney disease and safety of continuing lithium. Dose has been decreased by her outpatient psychiatrist, who would also like assistance in determining safety of continuing lithium. She states Brenda's kidney function has been fairly stable over the past few years, so could continue lithium if no other options, but may want to consider a trial of another medication if a similarly effective one is available, to try to avoid progression of kidney disease/need for dialysis. If she continues on lithium, recommended BUN and creatinine q 6 months , and urine to check for proteinuria once a year. Dr. Ovalles saw her in Jun. and will see her again in September. (4) Hyperlipemia Continue home doses of atorvastatin and cholestyramine. (5) Gastroesophageal reflux disease Omeprazole is nonformulary, so give equivalent dose of Protonix. (6) Heart disease Continue home dose of losartan. 07/31/17 -stool occult blood negative. Discharge / Aftercare Planning Primary Care Physician: Name: Dr. Santos Galeano, [facility] Date of Appointment: Aug 10, 2017 Time of Appointment: 11am Psychiatrist: Name: Dr. Hahn, [facility] Date of Appointment: Aug 08, 2017 Time of Appointment: 2pm Therapist: Name: Katerina Valerio [facility] Date of Appointment: Aug 12, 2017 Time of Appointment: 1:00 pm Appointment Notes: [facility] , [address], [place] [address] Car Dumper Operator Helper: Name: Zulay Christianson Date of Appointment: Aug 11, 2017 Appointment Notes: At your residence around 2-2:30 Home Health Services: Home Health Services: social work therapist, home health agency Home Health Agency: [facility] Date of Appointment: Aug 08, 2017 Appointment Notes: Will call pt to establish time Visit Code E&M Code: 08234 Inventory Assets Strengths: Good person,Feels for others Needs: improved physical health, financial help Risk Factors Assessment : Yes /single/: Yes Higher / Fall in social status: No Health problems: Yes Mental Health Diagnoses: Yes Substance use disorders: No Previous attempt: Yes Previous attempt;highly lethal: Yes (Mutiple attempts: hanging, burning) Previous attempt; planned: Yes Previous psychiatric stay: Yes Hopelessness: No Smoker: No Protective Factors Assessment Buddhist beliefs: Yes : No (But lives with long-term boyfriend) Responsible for young children: No Employed: No Stable relationships: Yes Supportive family: Yes (Speaks of 2 sisters frequently - Rachel and Genoveva) Good rapport with provider: Yes Data Vital Signs Last 24 Hrs: Date Time Temp Pulse Resp B/P (MAP) Pulse Ox O2 Delivery O2 Flow Rate FiO2 08/06/17 08:57 106 14 133/78 Meds Administered Last 24 Hrs: Meds Administered (Past 24Hrs) Medications (Trade) Dose Ordered Sig/Kelsey Route Start Time Stop Time Status Last Admin Dose Admin [place] Carbonate (Lithobid Tab) 600 mg HS PO 08/04/17 22:00 09/03/17 21:59 08/05/17 20:42 600 MG Lab Results Last 24 Hrs: Last 24 Hours Test 08/06/17 08:39 Sodium Level 141 mmol/L Potassium Level 4.3 mmol/L Chloride Level 108 mmol/L Carbon Dioxide Level 27 mmol/L Anion Gap 6.0 mmol/L Blood Urea Nitrogen 24 mg/dl Creatinine 1.57 mg/dl Est Creatinine Clear Calc Drug Dose 30.5 ml/min Estimated GFR () 39.7 Estimated GFR (Non- 34.2 BUN/Creatinine Ratio 15.5 Random Glucose 119 mg/dl Calcium Level 9.7 mg/dl
--- NOTE | 2017-08-06 11:08 | Psych Management Progress Note ---
Psychiatry Miscellaneous Date of Service: Aug 06, 2017. I personally spoke with patient and contacted the patient's pharmacy given complicated regimen and anticipated weekend discharge, particularly as partner desired to picking crew supervisor meds today due to transportation limitations. Last fill Klonopin 07/15 but here for some time. Dosing changes on [place], Risperdal and Navane. Continues to benefit from prn Haldol occasionally. Navane and Artane will need to be ordered by pharmacy so wrote orders to package 24 hour home supply. Patient agreeable to omni home nurse and will need repeat lithium level on 08/09/17 (will provide rx at discharge).
[2017-08-06] MEDS: CHOLESTYRAMINE LIGHT 4 GM PKT PO SCH (14:07)
[2017-08-06] MEDS: ZOLPIDEM TARTRATE 5 MG TAB PO SCH (21:48)
[2017-08-06] MEDS: CLONAZEPAM 0.5 MG TAB PO SCH (21:52)
[2017-08-06] MEDS: ATORVASTATIN 10 MG TAB PO SCH (21:53)
[2017-08-06] MEDS: LITHIUM CARBONATE SR 300 MG TAB (LITHOBID) PO SCH (21:54)
[2017-08-06] MEDS: MELATONIN 3 MG PO SCH (21:55)
[2017-08-06] MEDS: RISPERIDONE 3 MG TAB PO SCH (21:57)
[2017-08-07] MEDS: HALOPERIDOL 5 MG TAB PO PRN (03:40)
[2017-08-07] MEDS: TRAMADOL HCL 50 MG TAB PO PRN ×2 (03:48→12:16)
[2017-08-07] MEDS: ACETAMINOPHEN 325 MG TAB PO PRN (06:08)
[2017-08-07 06:36] VITALS: BP_SYST 146; BP_SYST 152; BP_DIAS 76; BP_DIAS 82; PULSE 90; PULSE 96; TEMP 36.9
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
[2017-08-07] MEDS: LOSARTAN POTASSIUM 25 MG TAB PO SCH (09:40)
[2017-08-07] MEDS: MONTELUKAST SOD 10 MG TAB PO SCH (09:40)
[2017-08-07] MEDS: RISPERIDONE 1 MG TAB PO SCH (09:40)
[2017-08-07] MEDS: OMEGA-3 (PURIFIED FISH OIL) 1 GM CAP PO SCH (09:40)
[2017-08-07] MEDS: THIOTHIXENE 5 MG CAP PO SCH (09:40)
[2017-08-07] MEDS: CEROVITE ADV FORMULA TAB PO SCH (09:40)
[2017-08-07] MEDS: TRIHEXYPHENIDYL HCL 2 MG TAB PO SCH (09:40)
[2017-08-07] MEDS: PANTOprazole SOD 40 MG TAB PO SCH (09:40)
[2017-08-07] MEDS: TOCOPHERYL, DL-ALPHA 400 INTER.UNIT CAP PO SCH (09:40)
[2017-08-08] MEDS ORDERED: ONDA4TAB46 PO (11:41)
== END 2017-08-07 13:28 | disposition home or self-care (01) | DRG 885 ==
LOC: C.EDB 14:31 → C.MHU 19:35 → ENRESERV 19:46 → C.MHU 07-25 09:45
PROVIDERS: ADMIT Psychiatry & Neurology Child & Adolescent Psychiatry; ATTEND Psychiatry & Neurology Child & Adolescent Psychiatry
DX: F25.9 Schizoaffective disorder, unspecified (principal); R45.851 Suicidal ideations; F31.9 Bipolar disorder, unspecified; E11.22 Type 2 diabetes mellitus with diabetic chronic kidney disease; N18.3 Chronic kidney disease, stage 3 (moderate); K21.9 Gastro-esophageal reflux disease without esophagitis; E78.5 Hyperlipidemia, unspecified; I51.9 Heart disease, unspecified; E03.9 Hypothyroidism, unspecified; Z87.891 Personal history of nicotine dependence; Z88.6 Allergy status to analgesic agent; Z88.5 Allergy status to narcotic agent; Z88.0 Allergy status to penicillin; Z88.2 Allergy status to sulfonamides; Z82.49 Family history of ischemic heart disease and other diseases of the circulatory system

== ENCOUNTER 2017-08-08 08:45 | Emergency (ER) | payer OTHER ==
[~2017-08-08] VITALS: Ht 152.4 cm; Wt 67.5 kg
[~2017-08-08 08:45] MED LIST changes: -CHOL4POW12 PO; +CLON0.5T3 PO; -DPRSCR15 TOP; +HLD5 PO; -IPRA1AER2 INH; +LTHCR300 PO; -LTHSR/300 PO; -MELA3TAB PO; +MELA3TAB12 PO; +OMEP40CA41 PO; +QSTP PO; +RSP1 PO; +SNG10 PO; +THIO10CA PO; -THIO2CAP2 PO; -THIO5CAP2 PO; +TRIH2TAB3 PO; +VITA400C3 PO; +ZOLP5TAB6 PO; +[UNRECOGNIZED DRUG - CODE] PO
[2017-08-08 08:54] VITALS: TEMP 37.2; Ht 152.4 cm; Wt 67.5 kg
--- NOTE | 2017-08-08 09:57 | EMERGENCY ROOM VISIT NOTE ---
History Report prepared by Bradford: Johny Solis Under the Supervision of: Dr. Ronak Dunaway M.D. First contact with patient: 09:35 Chief Complaint: MENTAL HEALTH EVALUATION Stated Complaint: OVER MEDICATED, CANNOT SLEEP, VOMITING History of Present Illness The patient is a 67 year old white female with a past medical history of CKD, diabetes, heart disease, GERD, heart disease, renal insufficiency, and hypothyroidism who presents to the Emergency Room with complaints of intermittent vomiting with abdominal pain that began at 0530 this morning, 5 hours ago. The patient's at bedside notes that the patient was discharged from [address] [place] [address] yesterday to go home with him. She had some of her medications changed on this inpatient stay, and she began to vomit this morning. The notes that she vomited twice this morning at 0530, and then twice again after her morning medications. The patient believes her symptoms have been worsened by consuming dairy. The is concerned over the amount of Haldol she took yesterday. The patient has not had any recent travel or antibiotic use. Source of History: patient, spouse/significant other Onset: 5 hours ago Position: abdomen Quality: other (vomiting) Timing: other (4 vomiting episodes in past 5 hours) Modifying Factors (Worsening): other (Consuming dairy) Review of Systems See HPI for pertinent positives and negatives. A total of ten systems were reviewed and were otherwise negative. Past Medical & Surgical Medical Problems: (1) Chronic kidney disease (CKD) (2) Diabetes mellitus type 2 (3) Gastroesophageal reflux disease (4) Heart disease (5) Hyperlipemia (6) Hypothyroidism (7) Renal insufficiency Family History FH: heart disease Social History Smoking Status: Former Smoker Alcohol Use: none Drug Use: none Marital Status: in relationship Housing Status: lives with family Occupation Status: retired Current/Historical Medications Scheduled Atorvastatin (Lipitor), 1 TAB PO HS Cholestyramine (Cholestyramine Light), PO Daily after lunch Clonazepam (Klonopin), 0.75 MG PO HS Ergocalciferol (Vitamin D 23263 Unit), 1 CAP PO WK Fish Oil ([place]-3), 1 CAP PO BID [place] Carbonate ([place] Carbonate ER), 600 MG PO HS Losartan Potassium (Losartan Potassium), 25 MG PO QAM Melatonin-Pyridoxine (Melatonin), 3 MG PO HS Montelukast Sod (Montelukast Sodium), 10 MG PO QAM Multiple Vitamins W/ Minerals (Centrum Silver Ultra [place]), 1 TAB PO QAM Omeprazole (Prilosec), 40 MG PO QAM Risperidone (Risperidone), 6 MG PO HS Risperidone (Risperidone), 1 MG PO QAM Sertraline Hcl (Zoloft), 150 MG PO QAM Thiothixene (Thiothixene), 2 CAP PO HS Thiothixene (Thiothixene), 5 MG PO BID Trihexyphenidyl HCl (Trihexyphenidyl HCl), 2 MG PO BID Vitamin E (Vitamin E 400 Iu), 400 INTER.UNIT PO DAILY Zolpidem Tartrate (Zolpidem Tartrate), 5 MG PO HS Scheduled PRN Haloperidol (Haloperidol), 5 MG PO Q6H PRN for PRN Ondansetron Hcl (Zofran), 4 MG PO Q8H PRN for Nausea Tramadol (Ultram), 1 TAB PO UD PRN for Pain Allergies Coded Allergies: Aspirin (Verified Allergy, Unknown, UNKNOWN REACTION, 04/19/17) Clozapine (Verified Allergy, Unknown, TOXIC REACTION, 04/19/17) Codeine (Verified Allergy, Unknown, UNKNOWN REACTION, 04/19/17) Ibuprofen (Verified Allergy, Unknown, UNKNOWN REACTION, 04/19/17) Lurasidone (Verified Allergy, Unknown, TOXIC REACTION, 04/19/17) Penicillins (Verified Allergy, Unknown, UNKNOWN REACTION, 04/19/17) AMOXIL Sulfa Antibiotics (Verified Allergy, Unknown, UNKNOWN REACTION, 04/19/17) Physical Exam Vital Signs Date Time Temp Pulse Resp B/P (MAP) Pulse Ox O2 Delivery O2 Flow Rate FiO2 08/08/17 10:45 76 16 125/66 92 Room Air 08/08/17 08:54 37.2 93 18 153/81 95 Room Air Physical Exam GENERAL: Awake, alert, well-appearing, NAD HENT: Normocephalic, atraumatic. EYES: Normal conjunctiva. Sclera non-icteric. NECK: Supple. No nuchal rigidity. FROM. RESPIRATORY: CTAB, no rhonchi, wheezing, crackles CARDIAC: RRR, no MRG ABDOMEN: Soft, NTND, BS+, negative psoas, negative obturators. MSK: No chest wall TTP, no LE edema NEURO: GCS 15, CN 2-12 intact, moves all 4s on command SKIN: No rash or jaundice noted. Medical Decision & Procedures ER Provider Diagnostic Interpretation: Radiology results as stated below per my review and radiologist interpretation: KUB CLINICAL HISTORY: Abdominal pain, nausea and vomiting. COMPARISON STUDY: CT of the abdomen and pelvis September 03, 2016. FINDINGS: The bowel gas pattern is normal. Pelvic calcifications likely reflect phleboliths. IMPRESSION: No evidence for a bowel obstruction. Electronically signed by: Armand Roland M.D. 08/08/2017 11:26 AM Dictated Date/Time: 08/08/2017 11:25 AM Laboratory Results 08/08/17 10:06 Red Blood Count 3.26, Mean Corpuscular Volume 89.0, Mean Corpuscular Hemoglobin 29.8, Mean Corpuscular Hemoglobin Concent 33.4, Mean Platelet Volume 9.0, Neutrophils (%) (Auto) 74.2, Lymphocytes (%) (Auto) 9.5, Monocytes (%) (Auto) 10.0, Eosinophils (%) (Auto) 4.3, Basophils (%) (Auto) 0.9, Neutrophils # (Auto ) 3.27, Lymphocytes # (Auto) 0.42, Monocytes # (Auto) 0.44, Eosinophils # (Auto ) 0.19, Basophils # (Auto) 0.04 08/08/17 10:06 Test 08/08/17 09:24 08/08/17 10:00 08/08/17 10:06 Bedside Glucose 128 mg/dl (70-90) Urine Color YELLOW Urine Appearance CLOUDY (CLEAR) Urine pH 8.0 (4.5-7.5) Urine Specific [place] 1.007 (1.000-1.030) Urine Protein NEG (NEG) Urine Glucose (UA) NEG (NEG) Urine Ketones NEG (NEG) Urine Occult Blood NEG (NEG) Urine Nitrite NEG (NEG) Urine Bilirubin NEG (NEG) Urine Urobilinogen NEG (NEG) Urine Leukocyte Esterase TRACE (NEG) Urine WBC (Auto) 1-5 /hpf (0-5) Urine RBC (Auto) 0-4 /hpf (0-4) Urine Hyaline Casts (Auto) 1-5 /lpf (0-5) Urine Epithelial Cells (Auto) 5-10 /lpf (0-5) Urine Bacteria (Auto) NEG (NEG) Urine Opiates Screen NEG (NEG) Urine Methadone, Qualitative NEG (NEG) Urine Barbiturates NEG (NEG) Urine Phencyclidine (PCP) Level NEG (NEG) Ur Amphetamine/Methamphetamine NEG (NEG) MDMA (Ecstasy) Screen NEG (NEG) Urine Benzodiazepines Screen NEG (NEG) Urine Cocaine Metabolite NEG (NEG) Urine Marijuana (THC) NEG (NEG) White Blood Count 4.41 K/uL (4.8-10.8) Red Blood Count 3.26 M/uL (4.2-5.4) Hemoglobin 9.7 g/dL (12.0-16.0) Hematocrit 29.0 % (37-47) Mean Corpuscular Volume 89.0 fL (80-100) Mean Corpuscular Hemoglobin 29.8 pg (25-34) Mean Corpuscular Hemoglobin Concent 33.4 g/dl (32-36) Platelet Count 233 K/uL (130-400) Mean Platelet Volume 9.0 fL (7.4-10.4) Neutrophils (%) (Auto) 74.2 % Lymphocytes (%) (Auto) 9.5 % Monocytes (%) (Auto) 10.0 % Eosinophils (%) (Auto) 4.3 % Basophils (%) (Auto) 0.9 % Neutrophils # (Auto) 3.27 K/uL (1.4-6.5) Lymphocytes # (Auto) 0.42 K/uL (1.2-3.4) Monocytes # (Auto) 0.44 K/uL (0.11-0.59) Eosinophils # (Auto) 0.19 K/uL (0-0.5) Basophils # (Auto) 0.04 K/uL (0-0.2) RDW Standard Deviation 49.2 fL (36.4-46.3) RDW Coefficient of Variation 15.1 % (11.5-14.5) Immature Granulocyte % (Auto) 1.1 % Immature Granulocyte # (Auto) 0.05 K/uL (0.00-0.02) Anion Gap 6.0 mmol/L (3-11) Est Creatinine Clear Calc Drug Dose 36.7 ml/min Estimated GFR () 49.4 Estimated GFR (Non- 42.6 BUN/Creatinine Ratio 18.2 (10-20) Calcium Level 9.7 mg/dl (8.5-10.1) Total Bilirubin 0.4 mg/dl (0.2-1) Direct Bilirubin < 0.1 mg/dl (0-0.2) Aspartate Amino Transf (AST/SGOT) 24 U/L (15-37) Alanine Aminotransferase (ALT/SGPT) 45 U/L (12-78) Alkaline Phosphatase 131 U/L (45-117) Troponin I < 0.015 ng/ml (0-0.045) Total Protein 7.3 gm/dl (6.4-8.2) Albumin 3.3 gm/dl (3.4-5.0) Thyroid Stimulating Hormone (TSH) 3.750 uIu/ml (0.300-4.500) Salicylates Level < 1.7 mg/dl (2.8-20) Acetaminophen Level < 2 ug/ml (10-30) [place] Level 0.9 mMOL/L (0.6-1.2) Ethyl Alcohol mg/dL < 3.0 mg/dl (0-3) Laboratory results reviewed by me ECG Per My Interpretation Rate (beats per minute): 72 Rhythm: normal sinus Findings: T-wave inversion (single TWI in AvL), other (Normal inteval, normal axis) ED Course 1016: The patient was evaluated in room A5. A complete history and physical exam was performed. 1119: Ordered Zofran 4 mg PO. 1144: I reevaluated the patient. Discussed results and discharge instructions: She verbalized understanding and agreement. The patient is ready for discharge. Medical Decision The patient is a 67 year old white female with a past medical history of CKD, diabetes, heart disease, GERD, heart disease, renal insufficiency, and hypothyroidism who presents to the Emergency Room with complaints of intermittent vomiting with abdominal pain that began at 0530 this morning, 5 hours ago. Nursing notes reviewed. Ancillary studies and prior records reviewed. Differential diagnosis: Etiologies such as mood disorder, infection, hypoglycemia, electrolyte abnormalities, cardiac sources, intracerebral event, toxicologic, neurologic, as well as others were entertained. Patient was seen and evaluated the bedside. Patient was complaining some mild nausea with vomiting. Patient did complain of some mild abdominal discomfort. On exam the patient is well-appearing and has a nonfocal abdominal exam. Patient does not have a surgical abdomen. Patient did have blood work completed along with a lithium level. Patient's blood work is fairly unremarkable. The patient does have an elevation in alk phos and some baseline CKD but these are chronic. Patient lithium level normal. Patient was cleared from a psychiatric standpoint per the mental specialist. Patient did receive some Zofran was able tolerate p.o. Patient was told to continue a bland diet to advance as tolerated. EKG normal sinus with a TW I and aVL but not in contiguous leads. Less likely ACS or atypical chest pain. Patient was given strict follow-up, discharge, and return precautions. All questions were answered. Patient was deemed suitable for outpatient follow-up at this time. Patient agreed with the plan of care and was safely discharged home. Medication Reconcilliation Current Medication List: was personally reviewed by me Blood Pressure Screening Patient's blood pressure: Elevated blood pressure Blood pressure disposition: Elevated BP felt to be situational Impression Primary Impression: Nausea & vomiting Scribe Attestation The scribe's documentation has been prepared under my direction and personally reviewed by me in its entirety. I confirm that the note above accurately reflects all work, treatment, procedures, and medical decision making performed by me. Departure Information Dispostion Home / Self-Care Prescriptions Ondansetron Hcl (ZOFRAN) 4 Mg Tab 4 MG PO Q8H Y for Nausea, #6 TAB Prov: Ronak Dunaway M.D. 08/08/17 Referrals Santos Galeano III, CRNP (PCP) Patient Instructions Abdominal Pain - [facility], My [facility], Nausea Vomit Control Additional Instructions Please return to the emergency department if you have worsening or recurrent symptoms not amenable to at-home treatment. Please call for a follow-up appointment with her primary care physician. Please take your medications as prescribed. If you have other concerns and/or complaints please feel free to also call your primary care physician's office or return the ED for further evaluation, management, and treatment. Take your medications as prescribed. If taking an antibiotic consider taking a probiotic and/or eating yogurt, but at the least, please take with food as it can cause upset stomach. You have been examined and treated today on an emergency basis only. This is not a substitute for, or an effort to provide, complete comprehensive medical care. It is impossible to recognize and treat all injuries or illnesses in a single emergency department visit. It is therefore important that you follow up closely with [facility], your PCP, and/or your specialist(s). Call as soon as possible for an appointment. Thank you for your time and consideration. I look forward to speaking with you again soon. Please don't hesitate to call us if you have any questions. Problem Qualifiers Primary Impression: Nausea & vomiting Vomiting type: unspecified Vomiting Intractability: non-intractable Qualified Codes: R11.2 - Nausea with vomiting, unspecified
[2017-08-08 10:21] LABS: BASO % 0.9 %; BASO ABS # 0.04 K/uL (0-0.2); EOS % 4.3 %; EOS ABS # 0.19 K/uL (0-0.5); HEMOGLOBIN 9.7 g/dL (12.0-16.0); IG# 0.05 K/uL (0.00-0.02); LYMPH % 9.5 %; LYMPH ABS # 0.42 K/uL (1.2-3.4); MEAN CORPUSCULAR HEMOGLOBIN 29.8 pg (25-34); MEAN CORPUSCULAR HGB CONC 33.4 g/dl (32-36); MONO ABS # 0.44 K/uL (0.11-0.59); NEUT % 74.2 %; NEUT ABS # 3.27 K/uL (1.4-6.5); PLATELET COUNT 233 K/uL (130-400); RED CELL DISTRIBUTION WIDTH CV 15.1 % (11.5-14.5); RED CELL DISTRIBUTION WIDTH SD 49.2 fL (36.4-46.3); WHITE BLOOD COUNT 4.41 K/uL (4.8-10.8)
[2017-08-08 10:37] LABS: ALBUMIN 3.3 gm/dl (3.4-5.0); BLOOD UREA NITROGEN 24 mg/dl (7-18); CALCIUM 9.7 mg/dl (8.5-10.1); CARBON DIOXIDE 27 mmol/L (21-32); CREATININE 1.31 mg/dl (0.60-1.20); GLUCOSE 118 mg/dl (70-99); POTASSIUM 4.2 mmol/L (3.5-5.1); SODIUM 136 mmol/L (136-145)
[2017-08-08 10:48] LABS: ALKALINE PHOSPHATASE 131 U/L (45-117); ALT/SGPT 45 U/L (12-78); AST/SGOT 24 U/L (15-37); TOTAL PROTEIN 7.3 gm/dl (6.4-8.2)
[2017-08-08] MEDS ORDERED: ONDANSETRON 4MG OD TAB PO STA (11:19)
--- NOTE | 2017-08-08 11:27 | DIAGNOSTIC IMAGING REPORT ---
KUB CLINICAL HISTORY: Abdominal pain, nausea and vomiting. COMPARISON STUDY: CT of the abdomen and pelvis September 03, 2016. FINDINGS: The bowel gas pattern is normal. Pelvic calcifications likely reflect phleboliths. IMPRESSION: No evidence for a bowel obstruction. Electronically signed by: Armand Roland M.D. 08/08/2017 11:26 AM Dictated Date/Time: 08/08/2017 11:25 AM
[2017-08-08] MEDS ORDERED: ONDA4TAB46 PO (11:41)
[2017-08-08 11:55] VITALS: BP 128/78; PULSE 76; O2SAT 94
== END 2017-08-08 11:55 | disposition home or self-care (01) ==
LOC: C.EDB 08:48 → C.EDA 11:55
DX: R11.2 Nausea with vomiting, unspecified (principal); N18.9 Chronic kidney disease, unspecified; E11.9 Type 2 diabetes mellitus without complications; K21.9 Gastro-esophageal reflux disease without esophagitis; I51.9 Heart disease, unspecified; E78.5 Hyperlipidemia, unspecified; E03.9 Hypothyroidism, unspecified; Z87.891 Personal history of nicotine dependence; Z79.899 Other long term (current) drug therapy; Z88.6 Allergy status to analgesic agent; Z88.5 Allergy status to narcotic agent; Z88.0 Allergy status to penicillin; Z88.2 Allergy status to sulfonamides; Z88.8 Allergy status to other drugs, medicaments and biological substances

== ENCOUNTER 2017-08-10 12:13 | Inpatient (IN) | payer OTHER ==
[~2017-08-10] VITALS: Ht 152.4 cm; Wt 60.0 kg
[~2017-08-10 12:13] MED LIST changes: +ONDA4TAB46 PO
[2017-08-10] MEDS ORDERED: THIO10CA PO (13:04)
[2017-08-10] MEDS ORDERED: THIO5CAP2 PO (13:04)
[2017-08-10 13:07] LABS: BASO % 0.3 %; BASO ABS # 0.02 K/uL (0-0.2); EOS ABS # 0.19 K/uL (0-0.5); HEMATOCRIT 30.2 % (37-47); IG# 0.06 K/uL (0.00-0.02); LYMPH % 11.1 %; LYMPH ABS # 0.69 K/uL (1.2-3.4); MEAN CELL VOLUME 90.1 fL (80-100); MEAN CORPUSCULAR HEMOGLOBIN 29.9 pg (25-34); MEAN CORPUSCULAR HGB CONC 33.1 g/dl (32-36); MEAN PLATELET VOLUME 9.3 fL (7.4-10.4); MONO % 9.1 %; MONO ABS # 0.57 K/uL (0.11-0.59); NEUT % 75.5 %; NEUT ABS # 4.71 K/uL (1.4-6.5); PLATELET COUNT 278 K/uL (130-400); RED CELL DISTRIBUTION WIDTH SD 49.4 fL (36.4-46.3); WHITE BLOOD COUNT 6.24 K/uL (4.8-10.8)
[2017-08-10 13:25] LABS: ALBUMIN 3.4 gm/dl (3.4-5.0); CALCIUM 9.5 mg/dl (8.5-10.1); CREATININE 1.46 mg/dl (0.60-1.20); POTASSIUM 4.1 mmol/L (3.5-5.1)
[2017-08-10 13:37] LABS: TOTAL PROTEIN 7.2 gm/dl (6.4-8.2)
--- NOTE | 2017-08-10 14:03 | EMERGENCY ROOM VISIT NOTE ---
History Report prepared by Bradford: Ollie Craft Under the Supervision of: Dr. Demarcus Gonzalez D.O. First contact with patient: 12:36 Chief Complaint: MENTAL HEALTH EVALUATION Stated Complaint: PSYCHOSIS History of Present Illness The patient is a 67 year old female who presents to the Emergency Room with complaints of a worsening need for a mental health evaluation over the past few days. Per the patient's , the patient was sent here for a mental health evaluation from Santos Galeano's office ([facility]). The patient's states that the patient has not been sleeping well at all recently, and has only gotten 6 hours of sleep in the past few days. The patient only slept an hour this morning. She was discharged from [address] [place] [address] for the same type of mental health problems 3 days ago. She did not sleep at all the night that she came home. The patient was noted to have fractured her ribs on a fall in [address] [place] [address], and was given Tylenol and Tramadol for the pain. Per the patient's , the patient has a long history of being suicidal, and he is worried that the patient may get suicidal again due to the lack of sleep. The patient has hung herself in the past, in addition to suffocating herself, overdosing, and laying under a moving car. She takes Ambien, Clonazepam, and Melatonin. Source of History: patient, spouse/significant other Onset: Over the past few days Position: other (global) Symptom Intensity: concerned patient may get suicidal Quality: other (need for mental health evaluation) Timing: worsening Note: Associated symptoms: Patient currently not suicidal. Patient is not sleeping well. Review of Systems See HPI for pertinent positives & negatives. A total of 10 systems reviewed and were otherwise negative. Past Medical & Surgical Medical Problems: (1) Chronic kidney disease (CKD) (2) Diabetes mellitus type 2 (3) Gastroesophageal reflux disease (4) Heart disease (5) Hyperlipemia (6) Hypothyroidism (7) Renal insufficiency Family History FH: heart disease Social History Smoking Status: Former Smoker Alcohol Use: none Drug Use: none Marital Status: in relationship Housing Status: lives with family Occupation Status: retired Current/Historical Medications Scheduled Atorvastatin (Lipitor), 10 MG PO HS Cholestyramine (Cholestyramine Light), PO Daily after lunch Clonazepam (Klonopin), 0.75 MG PO HS Ergocalciferol (Vitamin D 01038 Unit), 1 CAP PO WK Fish Oil ([place]-3), 1 CAP PO BID [place] Carbonate ([place] Carbonate ER), 600 MG PO HS Losartan Potassium (Losartan Potassium), 25 MG PO QAM Melatonin-Pyridoxine (Melatonin), 3 MG PO HS Montelukast Sod (Montelukast Sodium), 10 MG PO QAM Multiple Vitamins W/ Minerals (Centrum Silver Ultra [place]), 1 TAB PO QAM Omeprazole (Prilosec), 40 MG PO QAM Risperidone (Risperidone), 6 MG PO HS Risperidone (Risperidone), 1 MG PO QAM Sertraline Hcl (Zoloft), 150 MG PO QAM Thiothixene (Thiothixene), 5 MG PO BID Thiothixene (Thiothixene), 20 MG PO HS Thiothixene ([place]), 5 MG PO DAILY Trihexyphenidyl HCl (Trihexyphenidyl HCl), 2 MG PO BID Vitamin E (Vitamin E 400 Iu), 400 INTER.UNIT PO DAILY Zolpidem Tartrate (Zolpidem Tartrate), 5 MG PO HS Scheduled PRN Ondansetron Hcl (Zofran), 4 MG PO Q8H PRN for Nausea Tramadol (Ultram), 1 TAB PO UD PRN for Pain Allergies Coded Allergies: Aspirin (Verified Allergy, Unknown, UNKNOWN REACTION, 08/10/17) Clozapine (Verified Allergy, Unknown, TOXIC REACTION, 08/10/17) Codeine (Verified Allergy, Unknown, UNKNOWN REACTION, 08/10/17) Ibuprofen (Verified Allergy, Unknown, UNKNOWN REACTION, 08/10/17) Lurasidone (Verified Allergy, Unknown, TOXIC REACTION, 08/10/17) Penicillins (Verified Allergy, Unknown, UNKNOWN REACTION, 08/10/17) AMOXIL Sulfa Antibiotics (Verified Allergy, Unknown, UNKNOWN REACTION, 08/10/17) Physical Exam Vital Signs Date Time Temp Pulse Resp B/P (MAP) Pulse Ox O2 Delivery O2 Flow Rate FiO2 08/10/17 14:20 76 18 128/63 96 Room Air 08/10/17 12:20 36.7 80 16 133/77 94 Room Air Physical Exam CONSTITUTIONAL/VITAL SIGNS: Reviewed / noted above. GENERAL: Non-toxic in appearance. INTEGUMENTARY: Warm, dry, and [place]. HEAD: Normocephalic. EYES: without scleral icterus or trauma. ENT/OROPHARYNX: clear and moist. LYMPHADENOPATHY/NECK: Is supple without lymphadenopathy or meningismus. RESPIRATORY: Lungs clear and equal. CARDIOVASCULAR: Regular rate and rhythm. GI/ABDOMEN: Soft and nontender. No organomegaly or pulsatile mass. No rebound or guarding. Normal bowel sounds. EXTREMITIES: Warm and well perfused. BACK: No CVA tenderness. NEUROLOGICAL: Awake and alert. PSYCHIATRIC: normal affect. MUSCULOSKELETAL: Normally developed with good muscle tone. Medical Decision & Procedures Laboratory Results 08/10/17 12:56 Red Blood Count 3.35, Mean Corpuscular Volume 90.1, Mean Corpuscular Hemoglobin 29.9, Mean Corpuscular Hemoglobin Concent 33.1, Mean Platelet Volume 9.3, Neutrophils (%) (Auto) 75.5, Lymphocytes (%) (Auto) 11.1, Monocytes (%) (Auto) 9.1, Eosinophils (%) (Auto) 3.0, Basophils (%) (Auto) 0.3, Neutrophils # (Auto) 4.71, Lymphocytes # (Auto) 0.69, Monocytes # (Auto) 0.57, Eosinophils # (Auto) 0.19, Basophils # (Auto) 0.02 08/10/17 12:56 Test 08/10/17 12:35 08/10/17 12:56 08/10/17 16:13 Urine Opiates Screen NEG (NEG) Urine Methadone, Qualitative NEG (NEG) Urine Barbiturates NEG (NEG) Urine Phencyclidine (PCP) Level NEG (NEG) Ur Amphetamine/Methamphetamine NEG (NEG) MDMA (Ecstasy) Screen NEG (NEG) Urine Benzodiazepines Screen NEG (NEG) Urine Cocaine Metabolite NEG (NEG) Urine Marijuana (THC) NEG (NEG) White Blood Count 6.24 K/uL (4.8-10.8) Red Blood Count 3.35 M/uL (4.2-5.4) Hemoglobin 10.0 g/dL (12.0-16.0) Hematocrit 30.2 % (37-47) Mean Corpuscular Volume 90.1 fL (80-100) Mean Corpuscular Hemoglobin 29.9 pg (25-34) Mean Corpuscular Hemoglobin Concent 33.1 g/dl (32-36) Platelet Count 278 K/uL (130-400) Mean Platelet Volume 9.3 fL (7.4-10.4) Neutrophils (%) (Auto) 75.5 % Lymphocytes (%) (Auto) 11.1 % Monocytes (%) (Auto) 9.1 % Eosinophils (%) (Auto) 3.0 % Basophils (%) (Auto) 0.3 % Neutrophils # (Auto) 4.71 K/uL (1.4-6.5) Lymphocytes # (Auto) 0.69 K/uL (1.2-3.4) Monocytes # (Auto) 0.57 K/uL (0.11-0.59) Eosinophils # (Auto) 0.19 K/uL (0-0.5) Basophils # (Auto) 0.02 K/uL (0-0.2) RDW Standard Deviation 49.4 fL (36.4-46.3) RDW Coefficient of Variation 15.0 % (11.5-14.5) Immature Granulocyte % (Auto) 1.0 % Immature Granulocyte # (Auto) 0.06 K/uL (0.00-0.02) Anion Gap 4.0 mmol/L (3-11) Est Creatinine Clear Calc Drug Dose 33.1 ml/min Estimated GFR () 43.3 Estimated GFR (Non- 37.4 BUN/Creatinine Ratio 15.9 (10-20) Calcium Level 9.5 mg/dl (8.5-10.1) Total Bilirubin 0.3 mg/dl (0.2-1) Aspartate Amino Transf (AST/SGOT) 22 U/L (15-37) Alanine Aminotransferase (ALT/SGPT) 49 U/L (12-78) Alkaline Phosphatase 130 U/L (45-117) Total Protein 7.2 gm/dl (6.4-8.2) Albumin 3.4 gm/dl (3.4-5.0) Globulin 3.8 gm/dl (2.5-4.0) Albumin/Globulin Ratio 0.9 (0.9-2) Thyroid Stimulating Hormone (TSH) 2.020 uIu/ml (0.300-4.500) Salicylates Level < 1.7 mg/dl (2.8-20) Acetaminophen Level < 2 ug/ml (10-30) [place] Level 0.9 mMOL/L (0.6-1.2) Ethyl Alcohol mg/dL < 3.0 mg/dl (0-3) Laboratory results as stated above per my review. ED Course 1237: Previous medical records were reviewed. The patient was evaluated in room A8. A complete history and physical examination was performed. 1620: I was notified that the patient will be going up to [address] [place] [address] for further mental health evaluation and treatment. The patient is agreeable with the plan, and she is resting. 1628: Ativan Inj 1 mg IM, Haldol Inj 5 mg IM. Medical Decision Differential includes toxic ingestions, self-mutilation, suicidal ideation, suicide attempt, and depression. This is a 67-year-old female who presents to the ED with a chief complaint of mental health issues. She has not been sleeping since being discharged from [facility] on Tuesday. She is only slept about 6 hours in the past 3 days. The patient does not feel like she is doing well as an outpatient. The does not feel that the medications are working. He is concerned that she might become suicidal. She does have a history of suicidal ideation in the past. The patient was medically cleared. CBC, chemistry panel, tox screen, alcohol was unremarkable and lithium level was within normal limits. She will be evaluated by the mental health delegate. She was given Haldol p.o. and Ativan p.o. per the request of the mental health services on [address] where she was accepted. Medication Reconcilliation Current Medication List: was personally reviewed by me Blood Pressure Screening Patient's blood pressure: Normal blood pressure Impression Primary Impression: Depression Additional Impression: Insomnia Scribe Attestation The scribe's documentation has been prepared under my direction and personally reviewed by me in its entirety. I confirm that the note above accurately reflects all work, treatment, procedures, and medical decision making performed by me. Departure Information Dispostion Mental Health Acute Care (to [address] [place] [address]) Referrals Santos Galeano III, CRNP (PCP) Patient Instructions My [facility] Problem Qualifiers Primary Impression: Depression
[2017-08-10] MEDS ORDERED: LORAZEPAM 2 MG/ML 1 ML VIAL IM STA (16:28)
[2017-08-10] MEDS ORDERED: HALOPERIDOL LACTATE 5 MG/ML 1 ML VIAL IM STA (16:28)
[2017-08-10] MEDS ORDERED: LORAZEPAM 1 MG TAB PO ONE (16:45)
[2017-08-10] MEDS ORDERED: HALOPERIDOL 5 MG TAB PO ONE (16:45)
[2017-08-10 18:47] VITALS: BP 127/75; PULSE 65; TEMP 37
[2017-08-10 19:11] VITALS: BP 127/75; PULSE 65; TEMP 37; BMI 29.3
[2017-08-10] MEDS ORDERED: HALO5TAB PO (19:21)
[2017-08-10] MEDS ORDERED: NURSING VERBAL MED ORDER ONE (19:30)
[2017-08-10] MEDS ORDERED: HALOPERIDOL 5 MG TAB PO PRN (20:00)
[2017-08-10] MEDS ORDERED: SODIUM CHLORIDE 0.65% NA SOLN 45 ML (OCEAN) PRN (20:00)
[2017-08-10] MEDS ORDERED: ALUMINUM/MAGNESIUM SUSP 30 ML UDC PO PRN (20:00)
[2017-08-10] MEDS ORDERED: BISMUTH SUBSALICYLATE PER ML OMNICELL CHARGE PO PRN (20:00)
[2017-08-10] MEDS: ZOLPIDEM TARTRATE 5 MG TAB PO SCH (21:19)
[2017-08-10] MEDS: ATORVASTATIN 10 MG TAB PO SCH (21:22)
[2017-08-10] MEDS: OMEGA-3 (PURIFIED FISH OIL) 1 GM CAP PO SCH (21:23)
[2017-08-10] MEDS ORDERED: CLONAZEPAM 0.5 MG TAB PO SCH (22:00)
[2017-08-10] MEDS ORDERED: THIOTHIXENE 5 MG CAP PO SCH (22:00)
[2017-08-10] MEDS: TRAMADOL HCL 50 MG TAB PO PRN (22:27)
[2017-08-11] MEDS: hydrOXYzine HCL 25 MG TAB PO PRN ×2 (02:12→23:16)
[2017-08-11] MEDS: MELATONIN - ORDER AWAITING ACTION SCH ×4 (08:00→23:22)
[2017-08-11 08:34] VITALS: BP 164/74; PULSE 77; TEMP 36.9
[2017-08-11] MEDS: LOSARTAN POTASSIUM 25 MG TAB PO SCH (08:38)
[2017-08-11] MEDS: TOCOPHERYL, DL-ALPHA 400 INTER.UNIT CAP PO SCH (08:39)
[2017-08-11] MEDS: PANTOprazole SOD 40 MG TAB PO SCH (08:39)
[2017-08-11] MEDS: CEROVITE ADV FORMULA TAB PO SCH (08:39)
[2017-08-11] MEDS: MONTELUKAST SOD 10 MG TAB PO SCH (08:39)
[2017-08-11] MEDS: OMEGA-3 (PURIFIED FISH OIL) 1 GM CAP PO SCH ×2 (08:39→20:53)
[2017-08-11] MEDS ORDERED: SERTRALINE HCL 100 MG TAB PO SCH (09:00)
[2017-08-11] MEDS ORDERED: RISPERIDONE 1 MG TAB PO ONE (10:30)
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
--- NOTE | 2017-08-11 12:19 | DIAGNOSTIC IMAGING REPORT ---
KUB CLINICAL HISTORY: Generalized abdominal pain. FINDINGS: 2 AP supine abdominal radiographs are compared to study dated 08/08/2017 and correlated with abdominal CT dated 09/03/2016. There is a nonobstructed abdominal bowel gas pattern. Mild to moderate colonic fecal retention is observed. No evidence of intraperitoneal free air is seen on these supine images. Numerous phleboliths are observed in the pelvis. The skeletal structures are osteopenic. Lumbosacral spondylosis is observed. IMPRESSION: Nonobstructed abdominal bowel gas pattern. Electronically signed by: Matias Jasmine M.D. 08/11/2017 12:18 PM Dictated Date/Time: 08/11/2017 12:16 PM
[2017-08-11] MEDS: MAGNESIUM HYDROXIDE SUSP 30 ML UDC PO PRN (12:57)
[2017-08-11] MEDS: CHOLESTYRAMINE LIGHT 4 GM PKT PO SCH (13:24)
[2017-08-11] MEDS: HALOPERIDOL 5 MG TAB PO PRN ×2 (14:39→23:16)
[2017-08-11] MEDS: ZOLPIDEM TARTRATE 5 MG TAB PO SCH (20:52)
[2017-08-11] MEDS: ATORVASTATIN 10 MG TAB PO SCH (20:53)
[2017-08-11] MEDS: CLONAZEPAM 1 MG TAB PO SCH (21:06)
[2017-08-11] MEDS ORDERED: RISPERIDONE PO SCH ×2 (22:00)
[2017-08-11] MEDS ORDERED: RISPERIDONE 2 MG TAB PO SCH (22:00)
[2017-08-12] MEDS: HALOPERIDOL 5 MG TAB PO PRN ×3 (06:21→20:41)
[2017-08-12] MEDS: TRAMADOL HCL 50 MG TAB PO PRN (06:21)
[2017-08-12 06:26] VITALS: BP 153/76; PULSE 89; TEMP 37.3
[2017-08-12] MEDS: MELATONIN - ORDER AWAITING ACTION SCH (08:00)
[2017-08-12] MEDS: TOCOPHERYL, DL-ALPHA 400 INTER.UNIT CAP PO SCH (08:01)
[2017-08-12] MEDS: MONTELUKAST SOD 10 MG TAB PO SCH (08:01)
[2017-08-12] MEDS: OMEGA-3 (PURIFIED FISH OIL) 1 GM CAP PO SCH ×2 (08:02→20:29)
[2017-08-12] MEDS: CEROVITE ADV FORMULA TAB PO SCH (08:02)
[2017-08-12] MEDS: LOSARTAN POTASSIUM 25 MG TAB PO SCH (08:02)
[2017-08-12] MEDS: PANTOprazole SOD 40 MG TAB PO SCH (08:02)
[2017-08-12] MEDS: RISPERIDONE 1 MG TAB PO SCH (08:02)
--- NOTE | 2017-08-12 09:57 | Psych Management Progress Note ---
Psychiatry Miscellaneous Date of Service: Aug 12, 2017. Patient seen, MS assessed. I personally reviewed the patient's record/ readmission. Team communicated with Dr. Hahn and Alex to bring in Vraylar to replace Risperdal (will need cross taper). May require additional Haldol during cross taper. Given hx of poor sleep, Thorazine would be an option but I' d have concern about unsteady gait.
--- NOTE | 2017-08-12 10:50 | Psychiatric Progress Notes ---
Progress Note Date of Service Aug 12, 2017. Interval History 67-year-old woman readmitted voluntarily after having been discharged 3 days ago. She is sleepless, delusional again. Chief Complaint "Better.". Subjective Patient was seen & assessed interval progress reviewed with Treatment Team. The patient is in bed resting. She says that her mood is "better" today because the weather is turning, the ly is blue and the birds are singing. She denies having any hallucinations today, but says that she is still having SI and described having thoughts to grind herself up in a regrinder operator, and cries when describing it. She reports having moved her bowels today, soft formed. She is having pain in her belly and rt hip/rib area. Nursing reports that she had a prn of haldol yesterday around 3 pm when she was distressed crying and delusional and seemed to respond well to it. She was able to sleep for 5 hours last night. She was able to play a game with a peer, and had visits from her adult protective caseworker and administrative program specialist. Review of Systems Constitutional: + fatigue ENT: + hearing loss Respiratory: No cough, No sputum, No wheezing, No shortness of breath, No dyspnea on exertion, No dyspnea at rest, No hemoptysis, No problem reported Cardiovascular: No chest pain, No orthopnea, No PND, No edema, No claudication , No palpitations, No problem reported Abdomen: + pain, + constipation (soft formed BM today) Musculoskeletal: + problem reported (rt rib area) Neurologic: No memory loss, No paralysis, No weakness, No numbness/tingling, No vertigo, No balance problems, No problem reported Psychiatric: + depression symptoms (with SI) Integumentary: No rash, No itch, No new/changing skin lesions, No color change , No bleeding, No problem reported Sleep Information Total Hours of Sleep: 5.00 Meal Information Percent of Breakfast Consumed: 75 Percent of Lunch Consumed: 100 Percent of Dinner Consumed: 100 Mental Status Exam During interview pt is: alert and oriented, cooperative Appearance: disheveled Eye contact is: good Motor behavior is: no abnormal motor movements Speech: normal in rate, rhythm & volume (Inarticulate relative to hearing loss) Affect: blunted Mood is: other ("maybe a little depressed") Thought process: goal directed Thought content: delusions (that she is birthing birds) Suicidal thought are: denied Homicidal thoughts are: denied Hallucinations: denies auditory, denies visual Cognition: attention grossly intact, language grossly intact Intelligence estimated to be: average Insight: impaired Judgement: impaired Impression Adjusting to the milieu. Remains delusional and labile, worst during the latter half of the day. Meds have been adjusted and we will now plan on a trial of Vraylar since it is approved by her insurance. When Alex picks it up and brings it in, will start 1.5 mg HS increasing to 3 mg daily the following day. Will taper down on risperdal coincident to that. Plan (1) Bipolar 1 disorder with mixed features 08/11 - Increase Klonopin back to 1.5 mg HS to target sleep - Will DC lithium at this point due to concerns for her age and renal status - Will increase Risperdal to 1 mg. AM and 7 mg HS - Will DC navane to reduce polypharmacy - Continue prn haldol and increase to q 4 hr prn - Will have nursing attempt to preauth Halimalar to trial - DC Zoloft - Q 15 min checks for safety - Encourage participation in group and individual counseling as tolerated - Coordinate with current providers - had FLP and FBS on 07/23/17. All WNL with the exception of triglycerides of 151 and FBS 129 08/12 - Vraylar trial when Alex can bring it in - Start 1.5 mg daily increasing to 3 mg daily the following day. - Will taper risperdal at the same time (2) Chronic kidney disease (CKD) 08/11 - DC lithium. Will attempt to stabilize mood with atypicals - Collaborate with Dr. Ovalles as needed (3) Hypothyroidism 08/11 - TSH WNL and not on levothyroxine. - May have had abnl values in the past related to being on lithium (4) Hyperlipemia 08/11 - Continue home dose of atorvastatin - FLP done 07/24 Dr. Aysha Espitia has personally been involved in the review of this case and development of these recommendations. Discharge / Aftercare Planning Primary Care Physician: Name: Dr. Santos Galeano, [facility] Appointment Notes: [facility] [place] [address] Psychiatrist: Name: Dr. Welz, [facility] Appointment Notes: [address] [place] [address] Therapist: Name: [facility] Appointment Notes: [address] [place] [address] Video Game Repair Technician: Name: Zulay Macias Home Health Services: Home Health Services: social services specialist, home health agency Home Health Agency: [facility] Visit Code E&M Code: 89035 Inventory Assets Strengths: Support from partner, good relationship with outpatient provider Needs: Clarity with her medications Risk Factors Assessment : Yes /single/: No Higher / Fall in social status: No Health problems: Yes Mental Health Diagnoses: Yes Substance use disorders: No Previous psychiatric stay: Yes Hopelessness: No Smoker: No Protective Factors Assessment : No Responsible for young children: No Employed: No Stable relationships: Yes Supportive family: Yes Good rapport with provider: Yes Data Vital Signs Last 24 Hrs: Date Time Temp Pulse Resp B/P (MAP) Pulse Ox O2 Delivery O2 Flow Rate FiO2 08/12/17 06:26 37.3 89 18 153/76 Meds Administered Last 24 Hrs: Meds Administered (Past 24Hrs) Medications (Trade) Dose Ordered Sig/Kelsey Route Start Time Stop Time Status Last Admin Dose Admin Haloperidol (Haldol Tab) 5 mg ONE ONCE PO 08/10/17 16:45 08/10/17 16:46 DC 08/10/17 17:03 5 MG Lorazepam (Ativan Tab) 1 mg ONE ONCE PO 08/10/17 16:45 08/10/17 16:46 DC 08/10/17 17:02 1 MG Magnesium Hydroxide (Milk Of Magnesia Susp) 30 ml DAILY PRN PO 08/10/17 20:00 09/09/17 19:59 08/11/17 12:57 30 ML Hydroxyzine HCl (Vistaril Tab) 50 mg HSZ PRN PO 08/10/17 20:00 09/09/17 19:59 08/11/17 23:16 50 MG Atorvastatin Calcium (Lipitor Tab) 10 mg HS PO 08/10/17 22:00 09/09/17 21:59 08/11/17 20:53 10 MG Clonazepam (Klonopin Tab) 0.75 mg HS PO 08/10/17 22:00 08/11/17 10:21 DC 08/10/17 21:21 0.75 MG Fish Oil ([place]-3 (Purified Fish Oil) Cap) 1 gm BID PO 08/10/17 22:00 09/09/17 21:59 08/12/17 08:02 1 GM Haloperidol (Haldol Tab) 5 mg Q6H PRN PO 08/10/17 20:00 08/11/17 10:21 DC 08/11/17 02:12 5 MG Losartan Potassium (coZAAR TAB) 25 mg QAM PO 08/11/17 09:00 09/10/17 08:59 08/12/17 08:02 25 MG Multivitamins/ Minerals (Multivitamin W/ Minerals Tab) 1 tab QAM PO 08/11/17 09:00 09/10/17 08:59 08/12/17 08:02 1 TAB Montelukast Sodium (Singulair Tab) 10 mg QAM PO 08/11/17 09:00 09/10/17 08:59 08/12/17 08:01 10 MG Pantoprazole Sodium (Protonix Tab) 40 mg QAM PO 08/11/17 09:00 09/10/17 08:59 08/12/17 08:02 40 MG Sertraline HCl (Zoloft Tab) 150 mg QAM PO 08/11/17 09:00 08/11/17 10:21 DC 08/11/17 08:40 150 MG Thiothixene (Navane Cap) 20 mg HS PO 08/10/17 22:00 08/11/17 10:21 DC 08/10/17 21:19 20 MG Tramadol HCl (Ultram Tab) 50 mg Q6H PRN PO 08/10/17 20:15 09/09/17 20:14 08/12/17 06:21 50 MG cf-Mahuf-Frggwwtarp Acetate (Vitamin E Cap) 400 interunit DAILY PO 08/11/17 09:00 09/10/17 08:59 08/12/17 08:01 400 INTERUNIT Zolpidem Tartrate (Ambien Tab) 5 mg HSZ PO 08/10/17 22:00 09/09/17 21:59 08/11/17 20:52 5 MG Haloperidol (Haldol Tab) 5 mg Q4H PRN PO 08/11/17 10:30 09/09/17 19:59 08/12/17 06:21 5 MG Clonazepam (Klonopin Tab) 1.5 mg HS PO 08/11/17 22:00 09/10/17 21:59 08/11/17 21:06 1.5 MG Risperidone (Risperdal Tab) 1 mg QAM PO 08/12/17 09:00 09/11/17 08:59 08/12/17 08:02 1 MG Risperidone (Risperdal Tab) 1 mg 1030 ONCE PO 08/11/17 10:30 08/11/17 10:32 DC 08/11/17 12:00 1 MG Risperidone (Risperdal Tab) 7 mg HS PO 08/11/17 22:00 09/10/17 21:59 08/11/17 20:54 7 MG Lab Results Last 24 Hrs: 08/10/17 12:56 Red Blood Count 3.35, Mean Corpuscular Volume 90.1, Mean Corpuscular Hemoglobin 29.9, Mean Corpuscular Hemoglobin Concent 33.1, Mean Platelet Volume 9.3, Neutrophils (%) (Auto) 75.5, Lymphocytes (%) (Auto) 11.1, Monocytes (%) (Auto) 9.1, Eosinophils (%) (Auto) 3.0, Basophils (%) (Auto) 0.3, Neutrophils # (Auto) 4.71, Lymphocytes # (Auto) 0.69, Monocytes # (Auto) 0.57, Eosinophils # (Auto) 0.19, Basophils # (Auto) 0.02 08/10/17 12:56 Test 08/10/17 12:35 08/10/17 12:56 Urine Color YELLOW Urine Appearance CLEAR (CLEAR) Urine pH 7.0 (4.5-7.5) Urine Specific [place] 1.008 (1.000-1.030) Urine Protein 1+ (NEG) Urine Glucose (UA) NEG (NEG) Urine Ketones NEG (NEG) Urine Occult Blood NEG (NEG) Urine Nitrite NEG (NEG) Urine Bilirubin NEG (NEG) Urine Urobilinogen NEG (NEG) Urine Leukocyte Esterase TRACE (NEG) Urine WBC (Auto) 1-5 /hpf (0-5) Urine RBC (Auto) 0-4 /hpf (0-4) Urine Hyaline Casts (Auto) 0 /lpf (0-5) Urine Epithelial Cells (Auto) 0-5 /lpf (0-5) Urine Bacteria (Auto) NEG (NEG) Urine Opiates Screen NEG (NEG) Urine Methadone, Qualitative NEG (NEG) Urine Barbiturates NEG (NEG) Urine Phencyclidine (PCP) Level NEG (NEG) Ur Amphetamine/Methamphetamine NEG (NEG) MDMA (Ecstasy) Screen NEG (NEG) Urine Benzodiazepines Screen NEG (NEG) Urine Cocaine Metabolite NEG (NEG) Urine Marijuana (THC) NEG (NEG) White Blood Count 6.24 K/uL (4.8-10.8) Red Blood Count 3.35 M/uL (4.2-5.4) Hemoglobin 10.0 g/dL (12.0-16.0) Hematocrit 30.2 % (37-47) Mean Corpuscular Volume 90.1 fL (80-100) Mean Corpuscular Hemoglobin 29.9 pg (25-34) Mean Corpuscular Hemoglobin Concent 33.1 g/dl (32-36) Platelet Count 278 K/uL (130-400) Mean Platelet Volume 9.3 fL (7.4-10.4) Neutrophils (%) (Auto) 75.5 % Lymphocytes (%) (Auto) 11.1 % Monocytes (%) (Auto) 9.1 % Eosinophils (%) (Auto) 3.0 % Basophils (%) (Auto) 0.3 % Neutrophils # (Auto) 4.71 K/uL (1.4-6.5) Lymphocytes # (Auto) 0.69 K/uL (1.2-3.4) Monocytes # (Auto) 0.57 K/uL (0.11-0.59) Eosinophils # (Auto) 0.19 K/uL (0-0.5) Basophils # (Auto) 0.02 K/uL (0-0.2) RDW Standard Deviation 49.4 fL (36.4-46.3) RDW Coefficient of Variation 15.0 % (11.5-14.5) Immature Granulocyte % (Auto) 1.0 % Immature Granulocyte # (Auto) 0.06 K/uL (0.00-0.02) Anion Gap 4.0 mmol/L (3-11) Est Creatinine Clear Calc Drug Dose 33.1 ml/min Estimated GFR () 43.3 Estimated GFR (Non- 37.4 BUN/Creatinine Ratio 15.9 (10-20) Calcium Level 9.5 mg/dl (8.5-10.1) Total Bilirubin 0.3 mg/dl (0.2-1) Aspartate Amino Transf (AST/SGOT) 22 U/L (15-37) Alanine Aminotransferase (ALT/SGPT) 49 U/L (12-78) Alkaline Phosphatase 130 U/L (45-117) Total Protein 7.2 gm/dl (6.4-8.2) Albumin 3.4 gm/dl (3.4-5.0) Globulin 3.8 gm/dl (2.5-4.0) Albumin/Globulin Ratio 0.9 (0.9-2) Thyroid Stimulating Hormone (TSH) 2.020 uIu/ml (0.300-4.500) Salicylates Level < 1.7 mg/dl (2.8-20) Acetaminophen Level < 2 ug/ml (10-30) [place]ank Level 0.9 mMOL/L (0.6-1.2) Ethyl Alcohol mg/dL < 3.0 mg/dl (0-3) Problem Qualifiers (1) Chronic kidney disease (CKD): Chronic kidney disease stage: stage 1 Qualified Codes: N18.1 - Chronic kidney disease, stage 1
[2017-08-12] MEDS: CHOLESTYRAMINE LIGHT 4 GM PKT PO SCH (14:00)
[2017-08-12 20:26] VITALS: BP 146/84
[2017-08-12] MEDS: ATORVASTATIN 10 MG TAB PO SCH (20:27)
[2017-08-12] MEDS: MELATONIN 3 MG PO SCH (20:28)
[2017-08-12] MEDS: RISPERIDONE 2 MG TAB PO SCH (20:29)
[2017-08-12] MEDS: ZOLPIDEM TARTRATE 5 MG TAB PO SCH (20:29)
[2017-08-12] MEDS: CLONAZEPAM 1 MG TAB PO SCH (20:30)
[2017-08-12] MEDS ORDERED: VRAYLAR 3 MG PO SCH ×2 (22:00)
[2017-08-13 06:53] VITALS: BP_SYST 147; BP_SYST 159; BP_DIAS 78; BP_DIAS 80; PULSE 84; PULSE 92; TEMP 36.9
[2017-08-13] MEDS: OMEGA-3 (PURIFIED FISH OIL) 1 GM CAP PO SCH ×2 (08:08→21:05)
[2017-08-13] MEDS: CEROVITE ADV FORMULA TAB PO SCH (08:08)
[2017-08-13] MEDS: RISPERIDONE 1 MG TAB PO SCH (08:08)
[2017-08-13] MEDS: PANTOprazole SOD 40 MG TAB PO SCH (08:08)
[2017-08-13] MEDS: LOSARTAN POTASSIUM 25 MG TAB PO SCH (08:08)
[2017-08-13] MEDS: MONTELUKAST SOD 10 MG TAB PO SCH (08:09)
[2017-08-13] MEDS: TOCOPHERYL, DL-ALPHA 400 INTER.UNIT CAP PO SCH (08:09)
[2017-08-13] MEDS: HALOPERIDOL 5 MG TAB PO PRN (08:15)
--- NOTE | 2017-08-13 09:52 | Psychiatric Progress Notes ---
Progress Note Date of Service Aug 13, 2017. Interval History 67-year-old woman readmitted voluntarily after having been discharged 3 days ago. She is sleepless, delusional again. Chief Complaint "You want to ask me questions,Chau?". Subjective Patient was seen & assessed interval progress reviewed with nursing. Pt was seen while sitting by herself in the activity room. She continues to be disorganized in her thinking and behaviors. She stated that she had "bad things happen to her in her past." She endorsed some AH but was unable to elaborate about them , with thought blocking occurring as proposal manager writer attempted to have her elaborate. She then apologized to proposal manager writer for "closing off" She denied desire to end her life since it "would you make sad if I was to kill myself." She sought her ice water that she had made earlier in the midst of the conversation , with proposal manager writer obtaining it for her and when proposal manager writer inquired about any SI, pt indicated that she could perhaps try to kill herself by trying to swallow all the ice at once. Staff shared how Brenda is having difficultly following directions. Last night she was making various items per staff. She spoke about destruction and banging something, repeating her words with proposal manager writer unable to clarify the subject matter with pt then indicating about bad things happening in her past. She denied any physical complaints. She did not answer questions about her appetite or sleep Sleep Information Total Hours of Sleep: 4.25 Meal Information Percent of Breakfast Consumed: 75 Percent of Lunch Consumed: 90 Percent of Dinner Consumed: 100 Mental Status Exam During interview pt is: alert and oriented, cooperative Appearance: disheveled Eye contact is: good Motor behavior is: no abnormal motor movements Speech: normal in rate, rhythm & volume Affect: blunted Mood is: other (upset about what happened to me in the past) Thought process: blocking, tangential, looseness of associations Thought content: delusions (about descruction) Suicidal thought are: denied Homicidal thoughts are: denied Hallucinations: auditory (does not elaborate), denies visual Cognition: language grossly intact, other (impaired concentration, attention impaired) Intelligence estimated to be: average Insight: impaired Judgement: severely impaired Impression Adjusting to the milieu. Remains delusional and labile, worst during the latter half of the day. Meds have been adjusted and we will now plan on a trial of Vraylar since it is approved by her insurance. When Alex picks it up and brings it in, will start 1.5 mg HS increasing to 3 mg daily the following day. Will taper down on risperdal coincident to that. Plan (1) Bipolar 1 disorder with mixed features 08/11 - Increase Klonopin back to 1.5 mg HS to target sleep - Will DC lithium at this point due to concerns for her age and renal status - Will increase Risperdal to 1 mg. AM and 7 mg HS - Will DC navane to reduce polypharmacy - Continue prn haldol and increase to q 4 hr prn - Will have nursing attempt to preauth Vraylar to trial - DC Zoloft - Q 15 min checks for safety - Encourage participation in group and individual counseling as tolerated - Coordinate with current providers - had FLP and FBS on 07/23/17. All WNL with the exception of triglycerides of 151 and FBS 129 08/12 - Vraylar trial when Alex can bring it in - Start 1.5 mg daily increasing to 3 mg daily the following day. - Will taper risperdal at the same time 08/13 -Vraylar was actually started at 3mg hs on 08/12 since only 3mg capsules for supply. given s/e profile will move vraylar to earlier in day, will maintain pt at 3mg for time being given long half life of med and long half life of active metabolite tapering risperdal continue prn haldol doses (2) Chronic kidney disease (CKD) 08/11 - DC lithium. Will attempt to stabilize mood with atypicals - Collaborate with Dr. Ovalles as needed (3) Hypothyroidism 08/11 - TSH WNL and not on levothyroxine. - May have had abnl values in the past related to being on lithium (4) Hyperlipemia 08/11 - Continue home dose of atorvastatin - FLP done 07/24 Dr. Aysha Espitia has personally been involved in the review of this case and development of these recommendations. Discharge / Aftercare Planning Primary Care Physician: Name: Santos JACKSON [facility] Appointment Notes: [address], [place] [address] Psychiatrist: Name: Dr. Hahn, [facility] Appointment Notes: [address] [place] [address] [place] [address] Therapist: Name: Greyson Silverio [facility] [address] [facility] [address] Church Official: Name: Zulay Macias Home Health Services: Home Health Services: social work specialist, home health agency Home Health Agency: [facility] Visit Code E&M Code: 12478 Inventory Assets Strengths: Support from partner, good relationship with outpatient provider Needs: Clarity with her medications Risk Factors Assessment : Yes /single/: No Higher / Fall in social status: No Health problems: Yes Mental Health Diagnoses: Yes Substance use disorders: No Previous psychiatric stay: Yes Hopelessness: No Smoker: No Protective Factors Assessment : No Responsible for young children: No Employed: No Stable relationships: Yes Supportive family: Yes Good rapport with provider: Yes Data Vital Signs Last 24 Hrs: Date Time Temp Pulse Resp B/P (MAP) Pulse Ox O2 Delivery O2 Flow Rate FiO2 08/13/17 06:53 36.9 84 20 159/80 92 147/78 08/12/17 20:26 146/84 Meds Administered Last 24 Hrs: Meds Administered (Past 24Hrs) Medications (Trade) Dose Ordered Sig/Kelsey Route Start Time Stop Time Status Last Admin Dose Admin Haloperidol (Haldol Tab) 5 mg Q4H PRN PO 08/11/17 10:30 09/09/17 19:59 08/13/17 08:15 5 MG Clonazepam (Klonopin Tab) 1.5 mg HS PO 08/11/17 22:00 09/10/17 21:59 08/12/17 20:30 1.5 MG Risperidone (Risperdal Tab) 1 mg QAM PO 08/12/17 09:00 09/11/17 08:59 08/13/17 08:08 1 MG Risperidone (Risperdal Tab) 1 mg 1030 ONCE PO 08/11/17 10:30 08/11/17 10:32 DC 08/11/17 12:00 1 MG Risperidone (Risperdal Tab) 7 mg HS PO 08/11/17 22:00 08/12/17 12:11 DC 08/11/17 20:54 7 MG Risperidone (Risperdal Tab) 4 mg HS PO 08/12/17 22:00 09/11/17 21:59 08/12/17 20:29 4 MG Non-Formulary Medication (Non-Formulary Patient'S Own Med) 1 ea HS PO 08/12/17 22:00 09/11/17 21:59 08/12/17 20:28 1 EA Melatonin (Melatonex) 3 mg HS PO 08/12/17 22:00 09/11/17 21:59 08/12/17 20:28 3 MG Problem Qualifiers (1) Chronic kidney disease (CKD): Chronic kidney disease stage: stage 1 Qualified Codes: N18.1 - Chronic kidney disease, stage 1
[2017-08-13] MEDS: VRAYLAR 3 MG PO SCH (12:50)
[2017-08-13] MEDS: CHOLESTYRAMINE LIGHT 4 GM PKT PO SCH (14:14)
[2017-08-13] MEDS: MELATONIN 3 MG PO SCH (21:04)
[2017-08-13] MEDS: ZOLPIDEM TARTRATE 5 MG TAB PO SCH (21:04)
[2017-08-13] MEDS: CLONAZEPAM 1 MG TAB PO SCH (21:04)
[2017-08-13] MEDS: ATORVASTATIN 10 MG TAB PO SCH (21:04)
[2017-08-13] MEDS: RISPERIDONE 2 MG TAB PO SCH (21:05)
[2017-08-14 07:01] VITALS: BP_SYST 154; BP_SYST 162; BP_DIAS 84; BP_DIAS 89; PULSE 87; PULSE 92; TEMP 36.3
[2017-08-14] MEDS: LOSARTAN POTASSIUM 25 MG TAB PO SCH (07:40)
[2017-08-14] MEDS: CEROVITE ADV FORMULA TAB PO SCH (07:40)
[2017-08-14] MEDS: PANTOprazole SOD 40 MG TAB PO SCH (07:41)
[2017-08-14] MEDS: OMEGA-3 (PURIFIED FISH OIL) 1 GM CAP PO SCH ×2 (07:41→21:23)
[2017-08-14] MEDS: VRAYLAR 3 MG PO SCH (07:41)
[2017-08-14] MEDS: TOCOPHERYL, DL-ALPHA 400 INTER.UNIT CAP PO SCH (07:42)
[2017-08-14] MEDS: RISPERIDONE 1 MG TAB PO SCH (07:42)
[2017-08-14] MEDS: MONTELUKAST SOD 10 MG TAB PO SCH (07:42)
[2017-08-14] MEDS: HALOPERIDOL 5 MG TAB PO PRN ×2 (07:44→22:56)
--- NOTE | 2017-08-14 09:56 | Psychiatric Progress Notes ---
Progress Note Date of Service Aug 14, 2017. Interval History 67-year-old woman readmitted voluntarily after having been discharged 3 days ago. She is sleepless, delusional again. Chief Complaint "I feel good". Subjective Patient was seen & assessed interval progress reviewed with nursing. Not been making connotations during the past day. PEr staff she indicated that a person on the TV was the "Devils Advocate" She also continues to be disorganized in her thinking and behaviors. She indicated that she does not know if she hearing voices/hallucinations. She states her mood is "10...plus..plus...plus...plus. " with repeating "pulse" many times. 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 She indicate that she slept well and went to sleep early last night, with staff reporting only 4 1/2 hours of sleep during night shift supervisor. She indicated nl appetite. She had trouble understanding writer producer's questions. She did shower this morning with needing only prompting from staff Review of Systems Constitutional: No weight loss, No problem reported ENT: + hearing loss Musculoskeletal: + joint pain Psychiatric: + problem reported (limited sleep per staff, disorganized thinking and psychotic symptoms) Sleep Information Total Hours of Sleep: 3.50 Meal Information Percent of Breakfast Consumed: 100 Percent of Lunch Consumed: 100 Percent of Dinner Consumed: 100 Mental Status Exam During interview pt is: alert and oriented, cooperative Appearance: disheveled Eye contact is: good Motor behavior is: no abnormal motor movements Speech: normal in rate, rhythm & volume Affect: blunted Mood is: other (upset about what happened to me in the past) Thought process: looseness of associations Thought content: delusions Suicidal thought are: denied Homicidal thoughts are: denied Hallucinations: auditory (today, pt is not sure if having ), denies visual Cognition: language grossly intact, other (impaired concentration, attention impaired) Intelligence estimated to be: average Insight: impaired Judgement: severely impaired Impression Adjusting to the milieu. Remains delusional and disorganized Meds have been adjusted and Vraylar 3mg qday with riserdal lowered to 1mg am and 3mg hs with aim to further wean risperdal as adjusting to Vraylar Plan (1) Bipolar 1 disorder with mixed features 08/11 - Increase Klonopin back to 1.5 mg HS to target sleep - Will DC lithium at this point due to concerns for her age and renal status - Will increase Risperdal to 1 mg. AM and 7 mg HS - Will DC navane to reduce polypharmacy - Continue prn haldol and increase to q 4 hr prn - Will have nursing attempt to preauth Vraylar to trial - DC Zoloft - Q 15 min checks for safety - Encourage participation in group and individual counseling as tolerated - Coordinate with current providers - had FLP and FBS on 07/23/17. All WNL with the exception of triglycerides of 151 and FBS 129 08/12 - Vraylar trial when Alex can bring it in - Start 1.5 mg daily increasing to 3 mg daily the following day. - Will taper risperdal at the same time 08/13 -Vraylar was actually started at 3mg hs on 08/12 since only 3mg capsules for supply. given s/e profile will move vraylar to earlier in day, will maintain pt at 3mg for time being given long half life of med and long half life of active metabolite tapering risperdal maintained at 1mg am and 3mg hs for now since just lowered by 4mg continue prn haldol doses 08/14 -maintained vraylar 3mg qday -maintained risperdal 1mg am and 3mg hs for now, aim to wean risperdal further as adjusting to vraylar over next days (2) Chronic kidney disease (CKD) 08/11 - DC lithium. Will attempt to stabilize mood with atypicals - Collaborate with Dr. Ovalles as needed (3) Hypothyroidism 08/11 - TSH WNL and not on levothyroxine. - May have had abnl values in the past related to being on lithium (4) Hyperlipemia 08/11 - Continue home dose of atorvastatin - FLP done 07/24 Dr. Aysha Espitia has personally been involved in the review of this case and development of these recommendations. Discharge / Aftercare Planning Primary Care Physician: Name: Santos JACKSON [email or web address] Appointment Notes: [address] [facility] [place] [address] Psychiatrist: Name: Dr. Hahn, [facility] Appointment Notes: [address] [place] [address], [place] [address] Therapist: Name: Katerina Valerio [place] [facility] Appointment Notes: [address] [place] [address], [place] [employer] Pack Press Operator: Name: Zulay Macias Home Health Services: Home Health Services: social economist, home health agency Home Health Agency: [facility] Visit Code E&M Code: 49605 Inventory Assets Strengths: Support from partner, good relationship with outpatient provider Needs: Clarity with her medications Risk Factors Assessment : Yes /single/: No Higher / Fall in social status: No Health problems: Yes Mental Health Diagnoses: Yes Substance use disorders: No Previous psychiatric stay: Yes Hopelessness: No Smoker: No Protective Factors Assessment : No Responsible for young children: No Employed: No Stable relationships: Yes Supportive family: Yes Good rapport with provider: Yes Data Vital Signs Last 24 Hrs: Date Time Temp Pulse Resp B/P (MAP) Pulse Ox O2 Delivery O2 Flow Rate FiO2 08/14/17 07:01 36.3 87 18 154/84 92 162/89 Meds Administered Last 24 Hrs: Meds Administered (Past 24Hrs) Medications (Trade) Dose Ordered Sig/Kelsey Route Start Time Stop Time Status Last Admin Dose Admin Risperidone (Risperdal Tab) 4 mg HS PO 08/12/17 22:00 09/11/17 21:59 08/13/17 21:05 4 MG Non-Formulary Medication (Non-Formulary Patient'S Own Med) 1 ea HS PO 08/12/17 22:00 08/13/17 10:16 DC 08/12/17 20:28 1 EA Melatonin (Melatonex) 3 mg HS PO 08/12/17 22:00 09/11/17 21:59 08/13/17 21:04 3 MG Non-Formulary Medication (Non-Formulary Patient'S Own Med) 1 ea DAILY PO 08/13/17 12:00 09/12/17 11:59 08/14/17 07:41 1 EA Problem Qualifiers (1) Chronic kidney disease (CKD): Chronic kidney disease stage: stage 1 Qualified Codes: N18.1 - Chronic kidney disease, stage 1
[2017-08-14] MEDS: CHOLESTYRAMINE LIGHT 4 GM PKT PO SCH (14:46)
[2017-08-14] MEDS: ZOLPIDEM TARTRATE 5 MG TAB PO SCH (21:22)
[2017-08-14] MEDS: RISPERIDONE 2 MG TAB PO SCH (21:23)
[2017-08-14] MEDS: MELATONIN 3 MG PO SCH (21:23)
[2017-08-14] MEDS: CLONAZEPAM 1 MG TAB PO SCH (21:23)
[2017-08-14] MEDS: ATORVASTATIN 10 MG TAB PO SCH (21:23)
[2017-08-14] MEDS: hydrOXYzine HCL 25 MG TAB PO PRN (22:56)
[2017-08-15 06:54] VITALS: BP_SYST 164; BP_SYST 168; BP_DIAS 82; BP_DIAS 92; PULSE 92; PULSE 97; TEMP 36.5
[2017-08-15] MEDS: LOSARTAN POTASSIUM 25 MG TAB PO SCH (07:20)
[2017-08-15] MEDS: VRAYLAR 3 MG PO SCH (07:21)
[2017-08-15] MEDS: CEROVITE ADV FORMULA TAB PO SCH (07:21)
[2017-08-15] MEDS: OMEGA-3 (PURIFIED FISH OIL) 1 GM CAP PO SCH ×2 (07:22→21:05)
[2017-08-15] MEDS: RISPERIDONE 1 MG TAB PO SCH (07:22)
[2017-08-15] MEDS: PANTOprazole SOD 40 MG TAB PO SCH (07:22)
[2017-08-15] MEDS: MONTELUKAST SOD 10 MG TAB PO SCH (07:23)
[2017-08-15] MEDS: ERGOCALCIFEROL 50,000 INTER.UNIT CAP PO SCH (07:23)
[2017-08-15] MEDS: TOCOPHERYL, DL-ALPHA 400 INTER.UNIT CAP PO SCH (07:24)
[2017-08-15] MEDS: HALOPERIDOL 5 MG TAB PO PRN ×3 (07:24→21:11)
--- NOTE | 2017-08-15 13:03 | Psychiatric Progress Notes ---
Progress Note Date of Service Aug 15, 2017. Interval History 67-year-old woman readmitted voluntarily after having been discharged 3 day prior to most recent admission. She is sleepless, delusional again. Chief Complaint "I like your outfit, sand and ocean waves...waves...waves". Subjective Patient was seen & assessed interval progress reviewed with Treatment Team. Staff reports the patient slept for 5 hours last evening and has been improved behaviorally over the last day. Discussion was had during treatment team to determine baseline behavior when significant other visits to compare progress thus far. Pt was seen today to assess progress since admission. Pt states she is "[shoulder shrug]...okay". She remains tangential but is able to be redirected with encouragement. Pt states, "Vraylar is a good medicine...calm...calm...like Haldol." Pt appears to be pleased with her personal response to the medication. She continues to appear manic, but is behaviorally appropriate during our visit. Pt denies any concerns today. Review of Systems Psych: denies symptoms other than stated above Constitutional: denied Cardiovascular: denied GI: denied Neurologic: denied Musculoskeletal: reports pain in knees, hips, back, neck, and hands Remainder of 10 body systems also reviewed and denied other than noted above. Sleep Information Total Hours of Sleep: 5.00 Meal Information Percent of Breakfast Consumed: 100 Percent of Lunch Consumed: 100 Percent of Dinner Consumed: 75 Mental Status Exam During interview pt is: alert and oriented, cooperative Appearance: disheveled (hair braided, dressed in 2 hospital gowns and scrub pants) Eye contact is: good Motor behavior is: no abnormal motor movements Speech: normal in rate, rhythm & volume Affect: blunted Mood is: other (calm, "ok" at time of encounter) Thought process: looseness of associations Thought content: delusions (continues to believe she is ) Suicidal thought are: denied Homicidal thoughts are: denied Hallucinations: auditory (reports history, does not appear to be responding today), denies visual Cognition: language grossly intact, other (impaired concentration, attention impaired) Intelligence estimated to be: average Insight: impaired Judgement: impaired Impression Pt appears to be less labile today. Remains delusional and disorganized, is able to be redirected, but requires considerable encouragement by staff. Hopes are to determine proximity to baseline when fiance visits this afternoon. Pt appears to be tolerating Vraylar well, but continues on Risperdal 1mg qAM and 3mg qHS. Hesitant to continue to decrease Risperdal as patient requires frequent redirection from staff, is displaying manic and disorganized thoughts and behaviors. PRN Haldol dosing is also reported to only be mildly effective. Ideally would continue to decrease Risperdal further as Vraylar becomes more effective. 1423 - Spoke with patient's significant other who states he feels the patient is still rather far from baseline. He states she was laughing, crying, and talking to herself in her room during the initial part of his visit with her. He states despite her improvement in sleep over the last few nights, he is concerned that she will not sleep at home, which will lead to worsening mental status. Significant other reports concern about ELOS of 3-5 days. Encouraged him to continue to provide feedback during his visits as to the patient's proximity to baseline, which will help us to ensure the patient's readiness for discharge when the time comes. Plan (1) Bipolar 1 disorder with mixed features 08/11 - Increase Klonopin back to 1.5 mg HS to target sleep - Will DC lithium at this point due to concerns for her age and renal status - Will increase Risperdal to 1 mg. AM and 7 mg HS - Will DC navane to reduce polypharmacy - Continue prn haldol and increase to q 4 hr prn - Will have nursing attempt to preauth Vraylar to trial - DC Zoloft - Q 15 min checks for safety - Encourage participation in group and individual counseling as tolerated - Coordinate with current providers - had FLP and FBS on 07/23/17. All WNL with the exception of triglycerides of 151 and FBS 129 08/12 - Vraylar trial when Alex can bring it in - Start 1.5 mg daily increasing to 3 mg daily the following day. - Will taper risperdal at the same time 08/13 -Vraylar was actually started at 3mg hs on 08/12 since only 3mg capsules for supply. given s/e profile will move vraylar to earlier in day, will maintain pt at 3mg for time being given long half life of med and long half life of active metabolite tapering risperdal maintained at 1mg am and 3mg hs for now since just lowered by 4mg continue prn haldol doses 08/14 -maintained vraylar 3mg qday -maintained risperdal 1mg am and 3mg hs for now, aim to wean risperdal further as adjusting to vraylar over next days 08/15 - Continue Vraylar 3mg daily - Plan to continue to taper risperdal, however patient appears to be displaying more restlessness today in regard to manic behaviors and requiring redirection from staff and prn Haldol more frequently. - Attempt to determine proximity to baseline with visits from her fiance (2) Chronic kidney disease (CKD) 08/11 - DC lithium. Will attempt to stabilize mood with atypicals - Collaborate with Dr. Ovalles as needed (3) Hypothyroidism 08/11 - TSH WNL and not on levothyroxine. - May have had abnl values in the past related to being on lithium (4) Hyperlipemia 08/11 - Continue home dose of atorvastatin - FLP done 07/24 Discharge / Aftercare Planning Primary Care Physician: Name: Santos JACKSON [employer] Appointment Notes: [facility] [place] [address] Psychiatrist: Name: Dr. Hahn [facility] Appointment Notes: [address] [place] [id number] Therapist: Name: Katerina Valerio [facility] Appointment Notes: [address] [place] [id number] Route Process Administrator: Name: Zulay Macias Home Health Services: Home Health Services: psychosocial rehabilitation counselor, home health agency Home Health Agency: [facility] Visit Code E&M Code: 79638 Inventory Assets Strengths: Support from partner, good relationship with outpatient provider Needs: Clarity with her medications Risk Factors Assessment : Yes /single/: No Higher / Fall in social status: No Health problems: Yes Mental Health Diagnoses: Yes Substance use disorders: No Previous psychiatric stay: Yes Hopelessness: No Smoker: No Protective Factors Assessment : No Responsible for young children: No Employed: No Stable relationships: Yes Supportive family: Yes Good rapport with provider: Yes Data Vital Signs Last 24 Hrs: Date Time Temp Pulse Resp B/P (MAP) Pulse Ox O2 Delivery O2 Flow Rate FiO2 08/15/17 06:54 36.5 92 18 168/82 97 164/92 Meds Administered Last 24 Hrs: Meds Administered (Past 24Hrs) Medications (Trade) Dose Ordered Sig/Kelsey Route Start Time Stop Time Status Last Admin Dose Admin Ergocalciferol (Vitamin D Cap) 50,000 interunit Mo@0900 PO 08/15/17 09:00 09/14/17 08:59 08/15/17 07:23 50,000 INTERUNIT Problem Qualifiers (1) Chronic kidney disease (CKD): Chronic kidney disease stage: stage 1 Qualified Codes: N18.1 - Chronic kidney disease, stage 1
[2017-08-15] MEDS: CHOLESTYRAMINE LIGHT 4 GM PKT PO SCH (13:50)
[2017-08-15] MEDS: CLONAZEPAM 1 MG TAB PO SCH (21:04)
[2017-08-15] MEDS: ATORVASTATIN 10 MG TAB PO SCH (21:04)
[2017-08-15] MEDS: ZOLPIDEM TARTRATE 5 MG TAB PO SCH (21:04)
[2017-08-15] MEDS: MELATONIN 3 MG PO SCH (21:05)
[2017-08-15] MEDS: RISPERIDONE 2 MG TAB PO SCH (21:05)
[2017-08-15] MEDS: hydrOXYzine HCL 25 MG TAB PO PRN (21:05)
[2017-08-16 06:49] VITALS: BP_SYST 168; BP_SYST 176; BP_DIAS 91; BP_DIAS 94; PULSE 102; PULSE 98; TEMP 36.8
[2017-08-16] MEDS: LOSARTAN POTASSIUM 25 MG TAB PO SCH (07:50)
[2017-08-16] MEDS: CEROVITE ADV FORMULA TAB PO SCH (07:50)
[2017-08-16] MEDS: PANTOprazole SOD 40 MG TAB PO SCH (07:51)
[2017-08-16] MEDS: VRAYLAR 3 MG PO SCH (07:51)
[2017-08-16] MEDS: OMEGA-3 (PURIFIED FISH OIL) 1 GM CAP PO SCH ×2 (07:51→21:23)
[2017-08-16] MEDS: TOCOPHERYL, DL-ALPHA 400 INTER.UNIT CAP PO SCH (07:52)
[2017-08-16] MEDS: RISPERIDONE 1 MG TAB PO SCH (07:52)
[2017-08-16] MEDS: MONTELUKAST SOD 10 MG TAB PO SCH (07:53)
[2017-08-16] MEDS: HALOPERIDOL 5 MG TAB PO PRN ×2 (09:54→18:59)
--- NOTE | 2017-08-16 11:16 | Psychiatric Progress Notes ---
Progress Note Date of Service Aug 16, 2017. Interval History 67-year-old woman readmitted voluntarily after having been discharged 3 day prior to most recent admission. She is sleepless, delusional again. Chief Complaint "I'm impatient.". Subjective Patient was seen & assessed interval progress reviewed with Treatment Team. The patient says that she feels "great", "up there" and points to the ceiling. She denies side effects to meds. She only got 2-3 hours of sleep last night which she thinks is enough, so that she can be "ready" when she's called on to do something. She denies aud/vis hallucinations today. Nursing reports that she received ambien, klonopi, haldol and vistaril last evening, but still could not sleep long. They report that she is labile (laughing to crying), and still believes that she is . These symptoms seem more pronounced in the evening. Review of Systems Constitutional: + problem reported (insomnia) ENT: + hearing loss Respiratory: No cough, No sputum, No wheezing, No shortness of breath, No dyspnea on exertion, No dyspnea at rest, No hemoptysis, No problem reported Cardiovascular: No chest pain, No orthopnea, No PND, No edema, No claudication , No palpitations, No problem reported Abdomen: + problem reported (protruberant abdomen) Musculoskeletal: + muscle pain Neurologic: No memory loss, No paralysis, No weakness, No numbness/tingling, No vertigo, No balance problems, No problem reported Psychiatric: + problem reported (elevated mood, insomnia) Integumentary: No rash, No itch, No new/changing skin lesions, No color change , No bleeding, No problem reported Sleep Information Total Hours of Sleep: 2.25 Meal Information Percent of Breakfast Consumed: 100 Percent of Lunch Consumed: 100 Percent of Dinner Consumed: 100 Mental Status Exam During interview pt is: alert and oriented, cooperative Appearance: appropriately dressed Eye contact is: good Motor behavior is: no abnormal motor movements Speech: normal in rate, rhythm & volume Affect: blunted Mood is: other ("great") Thought process: tangential Thought content: delusions (continues to believe she is ) Suicidal thought are: denied Homicidal thoughts are: denied Hallucinations: denies auditory, denies visual Cognition: language grossly intact, other (impaired concentration, attention impaired) Intelligence estimated to be: average Insight: impaired Judgement: impaired Impression Still with impaired sleep and lability. Will increase Vraylar to 6 mg. daily, and continue other meds. Will encourage staff to keep out of bed during the day to promote better sleep hygiene. Plan (1) Bipolar 1 disorder with mixed features 08/11 - Increase Klonopin back to 1.5 mg HS to target sleep - Will DC lithium at this point due to concerns for her age and renal status - Will increase Risperdal to 1 mg. AM and 7 mg HS - Will DC navane to reduce polypharmacy - Continue prn haldol and increase to q 4 hr prn - Will have nursing attempt to preauth Vraylar to trial - DC Zoloft - Q 15 min checks for safety - Encourage participation in group and individual counseling as tolerated - Coordinate with current providers - had FLP and FBS on 07/23/17. All WNL with the exception of triglycerides of 151 and FBS 129 08/12 - Vraylar trial when Alex can bring it in - Start 1.5 mg daily increasing to 3 mg daily the following day. - Will taper risperdal at the same time 08/13 -Vraylar was actually started at 3mg hs on 08/12 since only 3mg capsules for supply. given s/e profile will move vraylar to earlier in day, will maintain pt at 3mg for time being given long half life of med and long half life of active metabolite tapering risperdal maintained at 1mg am and 3mg hs for now since just lowered by 4mg continue prn haldol doses 08/14 -maintained vraylar 3mg qday -maintained risperdal 1mg am and 3mg hs for now, aim to wean risperdal further as adjusting to vraylar over next days 08/15 - Continue Vraylar 3mg daily - Plan to continue to taper risperdal, however patient appears to be displaying more restlessness today in regard to manic behaviors and requiring redirection from staff and prn Haldol more frequently. - Attempt to determine proximity to baseline with visits from her fiance (2) Chronic kidney disease (CKD) 08/11 - DC lithium. Will attempt to stabilize mood with atypicals - Collaborate with Dr. Ovalles as needed (3) Hypothyroidism 08/11 - TSH WNL and not on levothyroxine. - May have had abnl values in the past related to being on lithium (4) Hyperlipemia 08/11 - Continue home dose of atorvastatin - FLP done 07/24 Discharge / Aftercare Planning Primary Care Physician: Name: Santos JACKSON [employer] Appointment Notes: [address] [place] [address] Psychiatrist: Name: Dr. Hahn, [facility] Appointment Notes: [address] [place] [address] Therapist: Name: Katerina Valerio [facility] Appointment Notes: [address] [place] [id number] [employer] Consultant: Name: JetFlorecita shipleyBrownsvilledionne Menezes Home Health Services: Home Health Services: social research assistant, home health agency Home Health Agency: [facility] Visit Code E&M Code: 62549 Inventory Assets Strengths: Support from partner, good relationship with outpatient provider Needs: Clarity with her medications Risk Factors Assessment : Yes /single/: No Higher / Fall in social status: No Health problems: Yes Mental Health Diagnoses: Yes Substance use disorders: No Previous psychiatric stay: Yes Hopelessness: No Smoker: No Protective Factors Assessment : No Responsible for young children: No Employed: No Stable relationships: Yes Supportive family: Yes Good rapport with provider: Yes Data Vital Signs Last 24 Hrs: Date Time Temp Pulse Resp B/P (MAP) Pulse Ox O2 Delivery O2 Flow Rate FiO2 08/16/17 06:49 36.8 98 18 168/91 102 176/94 Meds Administered Last 24 Hrs: Meds Administered (Past 24Hrs) Medications (Trade) Dose Ordered Sig/Kelsey Route Start Time Stop Time Status Last Admin Dose Admin Ergocalciferol (Vitamin D Cap) 50,000 interunit Mo@0900 PO 08/15/17 09:00 09/14/17 08:59 08/15/17 07:23 50,000 INTERUNIT Lab Results Last 24 Hrs: 08/10/17 12:56 Red Blood Count 3.35, Mean Corpuscular Volume 90.1, Mean Corpuscular Hemoglobin 29.9, Mean Corpuscular Hemoglobin Concent 33.1, Mean Platelet Volume 9.3, Neutrophils (%) (Auto) 75.5, Lymphocytes (%) (Auto) 11.1, Monocytes (%) (Auto) 9.1, Eosinophils (%) (Auto) 3.0, Basophils (%) (Auto) 0.3, Neutrophils # (Auto) 4.71, Lymphocytes # (Auto) 0.69, Monocytes # (Auto) 0.57, Eosinophils # (Auto) 0.19, Basophils # (Auto) 0.02 08/10/17 12:56 Test 08/10/17 12:35 08/10/17 12:56 Urine Color YELLOW Urine Appearance CLEAR (CLEAR) Urine pH 7.0 (4.5-7.5) Urine Specific [place] 1.008 (1.000-1.030) Urine Protein 1+ (NEG) Urine Glucose (UA) NEG (NEG) Urine Ketones NEG (NEG) Urine Occult Blood NEG (NEG) Urine Nitrite NEG (NEG) Urine Bilirubin NEG (NEG) Urine Urobilinogen NEG (NEG) Urine Leukocyte Esterase TRACE (NEG) Urine WBC (Auto) 1-5 /hpf (0-5) Urine RBC (Auto) 0-4 /hpf (0-4) Urine Hyaline Casts (Auto) 0 /lpf (0-5) Urine Epithelial Cells (Auto) 0-5 /lpf (0-5) Urine Bacteria (Auto) NEG (NEG) Urine Opiates Screen NEG (NEG) Urine Methadone, Qualitative NEG (NEG) Urine Barbiturates NEG (NEG) Urine Phencyclidine (PCP) Level NEG (NEG) Ur Amphetamine/Methamphetamine NEG (NEG) MDMA (Ecstasy) Screen NEG (NEG) Urine Benzodiazepines Screen NEG (NEG) Urine Cocaine Metabolite NEG (NEG) Urine Marijuana (THC) NEG (NEG) White Blood Count 6.24 K/uL (4.8-10.8) Red Blood Count 3.35 M/uL (4.2-5.4) Hemoglobin 10.0 g/dL (12.0-16.0) Hematocrit 30.2 % (37-47) Mean Corpuscular Volume 90.1 fL (80-100) Mean Corpuscular Hemoglobin 29.9 pg (25-34) Mean Corpuscular Hemoglobin Concent 33.1 g/dl (32-36) Platelet Count 278 K/uL (130-400) Mean Platelet Volume 9.3 fL (7.4-10.4) Neutrophils (%) (Auto) 75.5 % Lymphocytes (%) (Auto) 11.1 % Monocytes (%) (Auto) 9.1 % Eosinophils (%) (Auto) 3.0 % Basophils (%) (Auto) 0.3 % Neutrophils # (Auto) 4.71 K/uL (1.4-6.5) Lymphocytes # (Auto) 0.69 K/uL (1.2-3.4) Monocytes # (Auto) 0.57 K/uL (0.11-0.59) Eosinophils # (Auto) 0.19 K/uL (0-0.5) Basophils # (Auto) 0.02 K/uL (0-0.2) RDW Standard Deviation 49.4 fL (36.4-46.3) RDW Coefficient of Variation 15.0 % (11.5-14.5) Immature Granulocyte % (Auto) 1.0 % Immature Granulocyte # (Auto) 0.06 K/uL (0.00-0.02) Anion Gap 4.0 mmol/L (3-11) Est Creatinine Clear Calc Drug Dose 33.1 ml/min Estimated GFR () 43.3 Estimated GFR (Non- 37.4 BUN/Creatinine Ratio 15.9 (10-20) Calcium Level 9.5 mg/dl (8.5-10.1) Total Bilirubin 0.3 mg/dl (0.2-1) Aspartate Amino Transf (AST/SGOT) 22 U/L (15-37) Alanine Aminotransferase (ALT/SGPT) 49 U/L (12-78) Alkaline Phosphatase 130 U/L (45-117) Total Protein 7.2 gm/dl (6.4-8.2) Albumin 3.4 gm/dl (3.4-5.0) Globulin 3.8 gm/dl (2.5-4.0) Albumin/Globulin Ratio 0.9 (0.9-2) Thyroid Stimulating Hormone (TSH) 2.020 uIu/ml (0.300-4.500) Salicylates Level < 1.7 mg/dl (2.8-20) Acetaminophen Level < 2 ug/ml (10-30) [place] Level 0.9 mMOL/L (0.6-1.2) Ethyl Alcohol mg/dL < 3.0 mg/dl (0-3) Problem Qualifiers (1) Chronic kidney disease (CKD): Chronic kidney disease stage: stage 1 Qualified Codes: N18.1 - Chronic kidney disease, stage 1
[2017-08-16] MEDS: CHOLESTYRAMINE LIGHT 4 GM PKT PO SCH (14:35)
[2017-08-16] MEDS: hydrOXYzine HCL 25 MG TAB PO PRN ×2 (19:00→21:25)
[2017-08-16] MEDS: ZOLPIDEM TARTRATE 5 MG TAB PO SCH (21:21)
[2017-08-16] MEDS: ATORVASTATIN 10 MG TAB PO SCH (21:22)
[2017-08-16] MEDS: CLONAZEPAM 1 MG TAB PO SCH (21:22)
[2017-08-16] MEDS: MELATONIN 3 MG PO SCH (21:23)
[2017-08-16] MEDS: RISPERIDONE 2 MG TAB PO SCH (21:24)
[2017-08-17 06:57] VITALS: BP_SYST 171; BP_SYST 175; BP_DIAS 67; BP_DIAS 78; PULSE 105; PULSE 106; TEMP 36.9
[2017-08-17] MEDS: VRAYLAR 6 MG PO SCH (08:00)
[2017-08-17] MEDS: LOSARTAN POTASSIUM 25 MG TAB PO SCH (08:01)
[2017-08-17] MEDS: CEROVITE ADV FORMULA TAB PO SCH (08:01)
[2017-08-17] MEDS: PANTOprazole SOD 40 MG TAB PO SCH (08:02)
[2017-08-17] MEDS: RISPERIDONE 1 MG TAB PO SCH (08:02)
[2017-08-17] MEDS: OMEGA-3 (PURIFIED FISH OIL) 1 GM CAP PO SCH ×2 (08:02→20:12)
[2017-08-17] MEDS: MONTELUKAST SOD 10 MG TAB PO SCH (08:03)
[2017-08-17] MEDS: TOCOPHERYL, DL-ALPHA 400 INTER.UNIT CAP PO SCH (08:03)
--- NOTE | 2017-08-17 08:33 | Psychiatric Progress Notes ---
Progress Note Date of Service Aug 17, 2017. Interval History 67-year-old woman readmitted voluntarily after having been discharged 3 day prior to most recent admission. She is sleepless, delusional again. Chief Complaint "Baby's breath ". Subjective Patient was seen & assessed interval progress reviewed with Treatment Team. Staff report she has been disorganized, came out of her room with underwear on, was grabbing handfuls of clean towels from the linen cart outside her room, which she was planning on stashing in the drawers in her room. She refused to give up the towels, and yelled "You're taking away my freedom!" She pulled the refrigerator several feet away from the wall, thinking she could "break the lock." She is intrusive, frequently coming into the nurse's station, demanding several other different colors of hair ties, despite having 4 in her possession , saying she is "planning a royal wedding." She said she wants to give her soul to the [facility] or the [employer] or the President. She ripped a page out of a magazine that was advertising a cruise, so she thought she was planning a cruise. She also talked about "planning my wedding" and talked about having 3 wedding dresses, one of which she says costs $30,000. She is quite disruptive and inappropriate in groups, loud at times, and was intrusive with staff and peers. She attended community meeting, where she rated herself a 10/10, and her feeling word was "elation." She received multiple prn medications: 2 doses each of Haldol and hydroxyzine. She slept for 8 hours overnight, but this morning remains manic and disorganized. On my assessment, she is walking around the unit carrying a cup with baby's breath and wet paper towels in it. Her speech is largely nonsensical, hyperverbal, and difficult to understand at times. She does not respond to questions with related information , and when asked how she is feeling, talks in a disconnected fashion about babies, then says "we will survive, truth will survive," while pumping her fist in the air. When asked about mood, she says "I eat everything I can." She is oriented to the month and year, but not the day or date, and when asked where we are, says "outer space," and then holds her hands up to her eyes light goggles and starts talking about people killing other people, making a gesture of running her hands across her throat and talking about "chopping their heads off." She states that she feels safe here, and denies thoughts of harming herself or others. When asked about anxiety, she says "extremely," but cannot provide additional information. Her goals for today are "to do my laundry, make people happy, laughs, drink, and be merry, for tomorrow we ." She repeats this over and over while ringing her tap knox excessively. Review of Systems Review of systems is mo positive today, answering yes to everything and giving conflicting reports, as when asked if she is constipated she answers yes, and when asked if she is having regular bowel movements she says yes. Not a reliable historian. Sleep Information Total Hours of Sleep: 8.00 Meal Information Percent of Breakfast Consumed: 30 Percent of Lunch Consumed: 100 Percent of Dinner Consumed: 100 Mental Status Exam During interview pt is: alert and oriented (2 month and year, but not day or date), cooperative (But a limited historian) Appearance: appropriately dressed (Wearing 2 hospital gowns), disheveled Eye contact is: good Motor behavior is: steady gait & station (Slow), no abnormal motor movements Speech: other (Excessive speech, mildly slowed, loud at times) Affect: other (expansive) Mood is: other (answers with unrelated information) Thought process: tangential, incoherent Thought content: delusions (continues to believe she is , getting , grandiose) Suicidal thought are: denied Homicidal thoughts are: denied Cognition: other (all spheres impaired) Intelligence estimated to be: average Insight: impaired Judgement: impaired Impression Continues with stefan, expansive mood, hyperactivity, intrusive disorganized behavior, delusions, and lability. Unable to tolerate groups or stimuli, has to be redirected frequently. Vraylar increased to 6 mg. daily on 08/16/17. Plan (1) Bipolar 1 disorder with mixed features 08/11 - Increase Klonopin back to 1.5 mg HS to target sleep - Will DC lithium at this point due to concerns for her age and renal status - Will increase Risperdal to 1 mg. AM and 7 mg HS - Will DC navane to reduce polypharmacy - Continue prn haldol and increase to q 4 hr prn - Will have nursing attempt to preauth Vraylar to trial - DC Zoloft - Q 15 min checks for safety - Encourage participation in group and individual counseling as tolerated - Coordinate with current providers - had FLP and FBS on 07/23/17. All WNL with the exception of triglycerides of 151 and FBS 129 08/12 - Vraylar trial when Alex can bring it in - Start 1.5 mg daily increasing to 3 mg daily the following day. - Will taper risperdal at the same time 08/13 -Vraylar was actually started at 3mg hs on 08/12 since only 3mg capsules for supply. given s/e profile will move vraylar to earlier in day, will maintain pt at 3mg for time being given long half life of med and long half life of active metabolite tapering risperdal maintained at 1mg am and 3mg hs for now since just lowered by 4mg continue prn haldol doses 08/14 -maintained vraylar 3mg qday -maintained risperdal 1mg am and 3mg hs for now, aim to wean risperdal further as adjusting to vraylar over next days 08/15 - Continue Vraylar 3mg daily - Plan to continue to taper risperdal, however patient appears to be displaying more restlessness today in regard to manic behaviors and requiring redirection from staff and prn Haldol more frequently. - Attempt to determine proximity to baseline with visits from her fiance 08/16 - Vraylar increased to 6mg daily 08/17 - Discontinue risperidone due to inefficacy, and increase Haldol prn to 10mg. - Resume trihexphenidyl at 1mg daily and monitor restlessness as able. Challenging to know if her agitation is due to akathisia, anxiety, psychosis, or stefan, and she is a limited historian. (2) Chronic kidney disease (CKD) 08/11 - DC lithium. Will attempt to stabilize mood with atypicals - Collaborate with Dr. Ovalles as needed (3) Hypothyroidism 08/11 - TSH WNL and not on levothyroxine. - May have had abnl values in the past related to being on lithium (4) Hyperlipemia 08/11 - Continue home dose of atorvastatin - FLP done 07/24 Discharge / Aftercare Planning Primary Care Physician: Name: Santos JACKSON [employer] Appointment Notes: [address] [place] [address] Psychiatrist: Name: Dr. Hahn, [facility] Psych Clinic Appointment Notes: [address] [facility] [place] [address] Therapist: Name: Katerina Valerio [facility] Appointment Notes: [address] [facility] [place] [address] [employer] Agent: Name: Zulay Macias Home Health Services: Home Health Services: social sciences instructor, home health agency Home Health Agency: [facility] Visit Code E&M Code: 09579 Inventory Assets Strengths: Support from partner, good relationship with outpatient provider Needs: Clarity with her medications Risk Factors Assessment : Yes /single/: No Higher / Fall in social status: No Health problems: Yes Mental Health Diagnoses: Yes Substance use disorders: No Previous psychiatric stay: Yes Hopelessness: No Smoker: No Protective Factors Assessment : No Responsible for young children: No Employed: No Stable relationships: Yes Supportive family: Yes Good rapport with provider: Yes Data Vital Signs Last 24 Hrs: Date Time Temp Pulse Resp B/P (MAP) Pulse Ox O2 Delivery O2 Flow Rate FiO2 08/17/17 06:57 36.9 105 18 171/78 106 175/67 Meds Administered Last 24 Hrs: Meds Administered (Past 24Hrs) Medications (Trade) Dose Ordered Sig/Kelsey Route Start Time Stop Time Status Last Admin Dose Admin Ergocalciferol (Vitamin D Cap) 50,000 interunit Mo@0900 PO 08/15/17 09:00 09/14/17 08:59 08/15/17 07:23 50,000 INTERUNIT Non-Formulary Medication (Vraylar) 6 mg QAM PO 08/17/17 09:00 08/17/17 09:00 DC 08/16/17 12:35 3 MG Non-Formulary Medication (Vraylar) 6 mg QAM PO 08/17/17 09:00 09/16/17 08:59 08/17/17 08:00 6 MG Problem Qualifiers (1) Chronic kidney disease (CKD): Chronic kidney disease stage: stage 1 Qualified Codes: N18.1 - Chronic kidney disease, stage 1
[2017-08-17] MEDS: TRAMADOL HCL 50 MG TAB PO PRN ×2 (08:38→20:40)
[2017-08-17] MEDS ORDERED: VRAYLAR 6 MG PO SCH (09:00)
[2017-08-17] MEDS: TRIHEXYPHENIDYL HCL 2 MG TAB PO SCH (09:25)
[2017-08-17] MEDS: HALOPERIDOL 5 MG TAB PO PRN ×2 (09:26→14:12)
[2017-08-17] MEDS: CHOLESTYRAMINE LIGHT 4 GM PKT PO SCH (14:07)
[2017-08-17] MEDS: CLONAZEPAM 1 MG TAB PO SCH (16:33)
[2017-08-17] MEDS: ATORVASTATIN 10 MG TAB PO SCH (20:11)
[2017-08-17] MEDS: ZOLPIDEM TARTRATE 5 MG TAB PO SCH (20:11)
[2017-08-17] MEDS: MELATONIN 3 MG PO SCH (20:12)
[2017-08-18] MEDS: HALOPERIDOL 5 MG TAB PO PRN (02:24)
[2017-08-18] MEDS: hydrOXYzine HCL 25 MG TAB PO PRN (02:24)
[2017-08-18 07:04] VITALS: BP_SYST 131; BP_SYST 154; BP_DIAS 89; BP_DIAS 91; PULSE 77; PULSE 87; TEMP 36.9
[2017-08-18] MEDS: VRAYLAR 6 MG PO SCH (08:57)
[2017-08-18] MEDS: TRIHEXYPHENIDYL HCL 2 MG TAB PO SCH (08:58)
[2017-08-18] MEDS: MONTELUKAST SOD 10 MG TAB PO SCH (08:59)
[2017-08-18] MEDS: LOSARTAN POTASSIUM 25 MG TAB PO SCH (08:59)
[2017-08-18] MEDS: CEROVITE ADV FORMULA TAB PO SCH (08:59)
[2017-08-18] MEDS: PANTOprazole SOD 40 MG TAB PO SCH (08:59)
[2017-08-18] MEDS: TOCOPHERYL, DL-ALPHA 400 INTER.UNIT CAP PO SCH (08:59)
[2017-08-18] MEDS: OMEGA-3 (PURIFIED FISH OIL) 1 GM CAP PO SCH ×2 (08:59→19:54)
--- NOTE | 2017-08-18 09:46 | Psychiatric Progress Notes ---
Progress Note Date of Service Aug 18, 2017. Interval History 67-year-old woman readmitted voluntarily after having been discharged 3 day prior to most recent admission. She is sleepless, delusional again. Chief Complaint "I feel depressed". Subjective Patient was seen & assessed interval progress reviewed with Treatment Team. Nursing reports that Brenda only slept 3 hours last night. She is rambling in her speech and needs constant supervision. During my interview she says conflicting things such as her thoughts are going "13,000 miles per hour", but then denies feeling manic. She says that thoughts of suicide are "very strong" and makes a cutting motion across her neck. She denies aud/vis hallucinations. She then has a rambling conversation about feeling pressured to be good because she thinks that she has royal heritage, as well as Danish, Kryst[place] , Bengali..... and lists many more. She is frequently heard carrying on a conversation when alone. First thing this AM she approached me and kept repeating colors without any context and cannot be still even long enough to eat a meal. Review of Systems Constitutional: + problem reported (constantly restless) ENT: + hearing loss Respiratory: No cough, No sputum, No wheezing, No shortness of breath, No dyspnea on exertion, No dyspnea at rest, No hemoptysis, No problem reported Cardiovascular: No chest pain, No orthopnea, No PND, No edema, No claudication , No palpitations, No problem reported Abdomen: + problem reported (bloated) Musculoskeletal: No joint pain, No muscle pain, No swelling, No calf pain, No problem reported Neurologic: No memory loss, No paralysis, No weakness, No numbness/tingling, No vertigo, No balance problems, No problem reported Psychiatric: + problem reported (mixed reports of feeling depressed with SI, as well as racing thoughts and grandiosity) Integumentary: No rash, No itch, No new/changing skin lesions, No color change , No bleeding, No problem reported Sleep Information Total Hours of Sleep: 3.25 Meal Information Percent of Breakfast Consumed: 90 Percent of Lunch Consumed: 100 Percent of Dinner Consumed: 100 Mental Status Exam During interview pt is: alert and oriented (2 month and year, but not day or date), cooperative Appearance: appropriately dressed, disheveled Eye contact is: good Motor behavior is: steady gait & station, no abnormal motor movements Speech: normal in rate, rhythm & volume (Inarticulate due to hearing loss, at times rambling) Affect: blunted Mood is: depressed, other (answers with unrelated information) Thought process: tangential, flight of ideas Thought content: delusions (grandiose that she has royal heritage) Suicidal thought are: denied Homicidal thoughts are: denied Hallucinations: denies auditory, denies visual Cognition: memory grossly intact, language grossly intact, other (all spheres impaired) Intelligence estimated to be: average Insight: impaired Judgement: impaired Impression Continues with mixed symptoms including racing thoughts and grandiosity, with reports of depression and SI. Vraylar has been at 6 mg for 2 days. She does not seem to be responding to prn doses of haldol despite the increase to 10 mg. AT this point we will put her on one to one supervision given the constant need for redirection and excuse her from all group activities to reduce stimulation. She has undergone multiple medication changes at this point, and so am not surprised by some decompensation, but since she is not responding to prn haldol , will DC and change to Thorazine low dose prn during the day to target agitation and manic symptoms, with a larger 100 mg. dose at HS to target sleep. Will continue with Vraylar trial, but if no improvement over time consider a depakote trial to address mixed symptoms. Plan (1) Bipolar 1 disorder with mixed features 08/11 - Increase Klonopin back to 1.5 mg HS to target sleep - Will DC lithium at this point due to concerns for her age and renal status - Will increase Risperdal to 1 mg. AM and 7 mg HS - Will DC navane to reduce polypharmacy - Continue prn haldol and increase to q 4 hr prn - Will have nursing attempt to preauth Vraylar to trial - DC Zoloft - Q 15 min checks for safety - Encourage participation in group and individual counseling as tolerated - Coordinate with current providers - had FLP and FBS on 07/23/17. All WNL with the exception of triglycerides of 151 and FBS 129 08/12 - Vraylar trial when Alex can bring it in - Start 1.5 mg daily increasing to 3 mg daily the following day. - Will taper risperdal at the same time 4/14 -Vraylar was actually started at 3mg hs on 08/12 since only 3mg capsules for supply. given s/e profile will move vraylar to earlier in day, will maintain pt at 3mg for time being given long half life of med and long half life of active metabolite tapering risperdal maintained at 1mg am and 3mg hs for now since just lowered by 4mg continue prn haldol doses 08/14 -maintained vraylar 3mg qday -maintained risperdal 1mg am and 3mg hs for now, aim to wean risperdal further as adjusting to vraylar over next days 08/15 - Continue Vraylar 3mg daily - Plan to continue to taper risperdal, however patient appears to be displaying more restlessness today in regard to manic behaviors and requiring redirection from staff and prn Haldol more frequently. - Attempt to determine proximity to baseline with visits from her fiance 08/16 - Vraylar increased to 6mg daily 08/17 - Discontinue risperidone due to inefficacy, and increase Haldol prn to 10mg. - Resume trihexphenidyl at 1mg daily and monitor restlessness as able. Challenging to know if her agitation is due to akathisia, anxiety, psychosis, or stefan, and she is a limited historian. 08/18 - DC haldol due to no response - Start Thorazine 25 mg. q 2 hr prn during the day and 100 mg. scheduled at HS (2) Chronic kidney disease (CKD) 08/11 - DC lithium. Will attempt to stabilize mood with atypicals - Collaborate with Dr. Ovalles as needed (3) Hypothyroidism 08/11 - TSH WNL and not on levothyroxine. - May have had abnl values in the past related to being on lithium (4) Hyperlipemia 08/11 - Continue home dose of atorvastatin - FLP done 07/24 Discharge / Aftercare Planning Primary Care Physician: Name: Santos JACKSON [employer] [facility]ment [facility] [address] [facility] [place] [address] Psychiatrist: Name: Dr. Hahn, [facility] Psych Clinic Appointment Notes: [address] [place] [id number] Therapist: Name: Katerina Valerio [facility] Psych Clinic Appointment Notes: [address] [place] [address], [place] [address] Wedding Makeup Artist: Name: Zulay Macias Home Health Services: Home Health Services: director social service, home health agency Home Health Agency: [facility] Visit Code E&M Code: 82206 Inventory Assets Strengths: Support from partner, good relationship with outpatient provider Needs: Clarity with her medications Risk Factors Assessment : Yes /single/: No Higher / Fall in social status: No Health problems: Yes Mental Health Diagnoses: Yes Substance use disorders: No Previous psychiatric stay: Yes Hopelessness: No Smoker: No Protective Factors Assessment : No Responsible for young children: No Employed: No Stable relationships: Yes Supportive family: Yes Good rapport with provider: Yes Data Vital Signs Last 24 Hrs: Date Time Temp Pulse Resp B/P (MAP) Pulse Ox O2 Delivery O2 Flow Rate FiO2 08/18/17 07:04 36.9 77 18 154/89 87 131/91 Meds Administered Last 24 Hrs: Meds Administered (Past 24Hrs) Medications (Trade) Dose Ordered Sig/Kelsey Route Start Time Stop Time Status Last Admin Dose Admin Non-Formulary Medication (Vraylar) 6 mg QAM PO 08/17/17 09:00 08/17/17 09:00 DC 08/16/17 12:35 3 MG Non-Formulary Medication (Vraylar) 6 mg QAM PO 08/17/17 09:00 09/16/17 08:59 08/18/17 08:57 6 MG Haloperidol (Haldol Tab) 10 mg Q4H PRN PO 08/17/17 08:45 09/16/17 08:44 08/18/17 02:24 10 MG Trihexyphenidyl HCl (Artane Tab) 1 mg QAM PO 08/17/17 09:00 09/16/17 08:59 08/18/17 08:58 1 MG Lab Results Last 24 Hrs: 08/10/17 12:56 Red Blood Count 3.35, Mean Corpuscular Volume 90.1, Mean Corpuscular Hemoglobin 29.9, Mean Corpuscular Hemoglobin Concent 33.1, Mean Platelet Volume 9.3, Neutrophils (%) (Auto) 75.5, Lymphocytes (%) (Auto) 11.1, Monocytes (%) (Auto) 9.1, Eosinophils (%) (Auto) 3.0, Basophils (%) (Auto) 0.3, Neutrophils # (Auto) 4.71, Lymphocytes # (Auto) 0.69, Monocytes # (Auto) 0.57, Eosinophils # (Auto) 0.19, Basophils # (Auto) 0.02 08/10/17 12:56 Test 08/10/17 12:35 08/10/17 12:56 Urine Color YELLOW Urine Appearance CLEAR (CLEAR) Urine pH 7.0 (4.5-7.5) Urine Specific [place] 1.008 (1.000-1.030) Urine Protein 1+ (NEG) Urine Glucose (UA) NEG (NEG) Urine Ketones NEG (NEG) Urine Occult Blood NEG (NEG) Urine Nitrite NEG (NEG) Urine Bilirubin NEG (NEG) Urine Urobilinogen NEG (NEG) Urine Leukocyte Esterase TRACE (NEG) Urine WBC (Auto) 1-5 /hpf (0-5) Urine RBC (Auto) 0-4 /hpf (0-4) Urine Hyaline Casts (Auto) 0 /lpf (0-5) Urine Epithelial Cells (Auto) 0-5 /lpf (0-5) Urine Bacteria (Auto) NEG (NEG) Urine Opiates Screen NEG (NEG) Urine Methadone, Qualitative NEG (NEG) Urine Barbiturates NEG (NEG) Urine Phencyclidine (PCP) Level NEG (NEG) Ur Amphetamine/Methamphetamine NEG (NEG) MDMA (Ecstasy) Screen NEG (NEG) Urine Benzodiazepines Screen NEG (NEG) Urine Cocaine Metabolite NEG (NEG) Urine Marijuana (THC) NEG (NEG) White Blood Count 6.24 K/uL (4.8-10.8) Red Blood Count 3.35 M/uL (4.2-5.4) Hemoglobin 10.0 g/dL (12.0-16.0) Hematocrit 30.2 % (37-47) Mean Corpuscular Volume 90.1 fL (80-100) Mean Corpuscular Hemoglobin 29.9 pg (25-34) Mean Corpuscular Hemoglobin Concent 33.1 g/dl (32-36) Platelet Count 278 K/uL (130-400) Mean Platelet Volume 9.3 fL (7.4-10.4) Neutrophils (%) (Auto) 75.5 % Lymphocytes (%) (Auto) 11.1 % Monocytes (%) (Auto) 9.1 % Eosinophils (%) (Auto) 3.0 % Basophils (%) (Auto) 0.3 % Neutrophils # (Auto) 4.71 K/uL (1.4-6.5) Lymphocytes # (Auto) 0.69 K/uL (1.2-3.4) Monocytes # (Auto) 0.57 K/uL (0.11-0.59) Eosinophils # (Auto) 0.19 K/uL (0-0.5) Basophils # (Auto) 0.02 K/uL (0-0.2) RDW Standard Deviation 49.4 fL (36.4-46.3) RDW Coefficient of Variation 15.0 % (11.5-14.5) Immature Granulocyte % (Auto) 1.0 % Immature Granulocyte # (Auto) 0.06 K/uL (0.00-0.02) Anion Gap 4.0 mmol/L (3-11) Est Creatinine Clear Calc Drug Dose 33.1 ml/min Estimated GFR () 43.3 Estimated GFR (Non- 37.4 BUN/Creatinine Ratio 15.9 (10-20) Calcium Level 9.5 mg/dl (8.5-10.1) Total Bilirubin 0.3 mg/dl (0.2-1) Aspartate Amino Transf (AST/SGOT) 22 U/L (15-37) Alanine Aminotransferase (ALT/SGPT) 49 U/L (12-78) Alkaline Phosphatase 130 U/L (45-117) Total Protein 7.2 gm/dl (6.4-8.2) Albumin 3.4 gm/dl (3.4-5.0) Globulin 3.8 gm/dl (2.5-4.0) Albumin/Globulin Ratio 0.9 (0.9-2) Thyroid Stimulating Hormone (TSH) 2.020 uIu/ml (0.300-4.500) Salicylates Level < 1.7 mg/dl (2.8-20) Acetaminophen Level < 2 ug/ml (10-30) Kingfisher Level 0.9 mMOL/L (0.6-1.2) Ethyl Alcohol mg/dL < 3.0 mg/dl (0-3) Problem Qualifiers (1) Chronic kidney disease (CKD): Chronic kidney disease stage: stage 1 Qualified Codes: N18.1 - Chronic kidney disease, stage 1
[2017-08-18] MEDS: CHLORPROMAZINE HCL 25 MG TAB PO PRN ×3 (10:20→15:07)
[2017-08-18] MEDS: CHOLESTYRAMINE LIGHT 4 GM PKT PO SCH (13:53)
[2017-08-18] MEDS: ATORVASTATIN 10 MG TAB PO SCH (19:51)
[2017-08-18] MEDS: ZOLPIDEM TARTRATE 5 MG TAB PO SCH (19:51)
[2017-08-18] MEDS: CLONAZEPAM 1 MG TAB PO SCH (19:53)
[2017-08-18] MEDS: MELATONIN 3 MG PO SCH (19:53)
[2017-08-18] MEDS ORDERED: CHLORPROMAZINE HCL 100 MG TAB PO SCH (22:00)
[2017-08-19] MEDS: CHLORPROMAZINE HCL 25 MG TAB PO PRN ×5 (02:38→20:23)
[2017-08-19 07:04] VITALS: BP 131/91; PULSE 83; TEMP 36.7
--- NOTE | 2017-08-19 09:23 | Psych Management Progress Note ---
Psychiatry Miscellaneous Date of Service: Aug 19, 2017. Patient seen, MS assessed. Remains disorganized with poor sleep. Vraylar trial with thorazine. Use of thorazine somewhat limited due to fall risk. I participated in treatment team and in medical decision making outlined in GOVERNMENT OPERATIONS CONSULTANT note.
[2017-08-19] MEDS: TRIHEXYPHENIDYL HCL 2 MG TAB PO SCH (09:24)
[2017-08-19] MEDS: VRAYLAR 6 MG PO SCH (09:24)
[2017-08-19] MEDS: LOSARTAN POTASSIUM 25 MG TAB PO SCH (09:24)
[2017-08-19] MEDS: OMEGA-3 (PURIFIED FISH OIL) 1 GM CAP PO SCH ×2 (09:25→21:18)
[2017-08-19] MEDS: MONTELUKAST SOD 10 MG TAB PO SCH (09:25)
[2017-08-19] MEDS: CEROVITE ADV FORMULA TAB PO SCH (09:25)
[2017-08-19] MEDS: TOCOPHERYL, DL-ALPHA 400 INTER.UNIT CAP PO SCH (09:25)
[2017-08-19] MEDS: PANTOprazole SOD 40 MG TAB PO SCH (09:25)
--- NOTE | 2017-08-19 09:41 | Psychiatric Progress Notes ---
Progress Note Date of Service Aug 19, 2017. Interval History 67-year-old woman readmitted voluntarily after having been discharged 3 day prior to most recent admission. She is sleepless, delusional again. Chief Complaint "I have been to the [facility].". Subjective Patient was seen & assessed interval progress reviewed with Treatment Team. Nursing reports that the thorazine seems to be slightly more effective to slow Brenda down than haldol. She was able to sleep for about 5 hours, but most of it on evening shift and during the night was up and described as "manic". today her conversation is rambling, with repetitive noises and singing. She responds better to written questions, and is generally appropriate. She says that she is "fine" today. she thought that she slept more than she did. She continues to endorse racing thoughts, but denies hallucinations or suicidal thinking. She feels that she is a bad person, "I have been to the [facility] " and then hits herself in the head. I discourage her from this behavior but she thinks its appropriate to punish yourself if you are a bad person. She then rambles on about everyone being "heartbeats in the universe" including hummingbirds and then asks how fast a hummingbirds heart goes. She will occasionally yell out, get up to try slamming the door to the nurses station. Her room is disorganized and cluttered. Nursing reports that she was incontinent of urine on 03-08 Review of Systems Constitutional: + problem reported (insomnia) ENT: + hearing loss Respiratory: No cough, No sputum, No wheezing, No shortness of breath, No dyspnea on exertion, No dyspnea at rest, No hemoptysis, No problem reported Cardiovascular: No chest pain, No orthopnea, No PND, No edema, No claudication , No palpitations, No problem reported Abdomen: No pain, No nausea, No vomiting, No diarrhea, No constipation, No GI bleeding, No problem reported Musculoskeletal: No joint pain, No muscle pain, No swelling, No calf pain, No problem reported Neurologic: No memory loss, No paralysis, No weakness, No numbness/tingling, No vertigo, No balance problems, No problem reported Psychiatric: + problem reported (racing thoughts, insomnia) Integumentary: No rash, No itch, No new/changing skin lesions, No color change , No bleeding, No problem reported Sleep Information Total Hours of Sleep: 5.25 Meal Information Percent of Breakfast Consumed: 90 Percent of Lunch Consumed: 60 Percent of Dinner Consumed: 100 Mental Status Exam During interview pt is: alert and oriented, cooperative Appearance: appropriately dressed, disheveled Eye contact is: good Motor behavior is: steady gait & station, no abnormal motor movements Speech: other (Loud, inarticulate, at times making repetitive noises) Affect: labile (laughing, crying) Mood is: other ("fine") Thought process: tangential, flight of ideas Thought content: delusions Suicidal thought are: denied Homicidal thoughts are: denied Hallucinations: denies auditory, denies visual Cognition: memory grossly intact, language grossly intact, other (all spheres impaired) Intelligence estimated to be: average Insight: impaired Judgement: impaired Impression thorazine is slowing her down a little better than haldol. Will increase HS dose to 200 mg. and continue prn of 50 but increase frequency to q 3 hr. Will run an EKG for completeness. Has been on Vraylar for 2 full days which is not long enough to determine effectiveness and so would like to give it some more time. I'd like to consider a trial of depakote, but both she and Alex have said that she was on this in the past, each saying that she had bad side effects. Tegretol is a consideration, but with some negative side effects and interactions. For now will continue to stabilize mood with Vraylar, thorazine, Klonopin Plan (1) Bipolar 1 disorder with mixed features 08/11 - Increase Klonopin back to 1.5 mg HS to target sleep - Will DC lithium at this point due to concerns for her age and renal status - Will increase Risperdal to 1 mg. AM and 7 mg HS - Will DC navane to reduce polypharmacy - Continue prn haldol and increase to q 4 hr prn - Will have nursing attempt to preauth Vraylar to trial - DC Zoloft - Q 15 min checks for safety - Encourage participation in group and individual counseling as tolerated - Coordinate with current providers - had FLP and FBS on 07/23/17. All WNL with the exception of triglycerides of 151 and FBS 129 08/12 - Vraylar trial when Alex can bring it in - Start 1.5 mg daily increasing to 3 mg daily the following day. - Will taper risperdal at the same time 08/13 -Vraylar was actually started at 3mg hs on 08/12 since only 3mg capsules for supply. given s/e profile will move vraylar to earlier in day, will maintain pt at 3mg for time being given long half life of med and long half life of active metabolite tapering risperdal maintained at 1mg am and 3mg hs for now since just lowered by 4mg continue prn haldol doses 08/14 -maintained vraylar 3mg qday -maintained risperdal 1mg am and 3mg hs for now, aim to wean risperdal further as adjusting to vraylar over next days 08/15 - Continue Vraylar 3mg daily - Plan to continue to taper risperdal, however patient appears to be displaying more restlessness today in regard to manic behaviors and requiring redirection from staff and prn Haldol more frequently. - Attempt to determine proximity to baseline with visits from her fiance 08/16 - Vraylar increased to 6mg daily 08/17 - Discontinue risperidone due to inefficacy, and increase Haldol prn to 10mg. - Resume trihexphenidyl at 1mg daily and monitor restlessness as able. Challenging to know if her agitation is due to akathisia, anxiety, psychosis, or stefan, and she is a limited historian. 08/18 - DC haldol due to no response - Start Thorazine 25 mg. q 2 hr prn during the day and 100 mg. scheduled at HS 08/19 - Increase thorazine to 50 q 3 hr prn and 200 mg. HS - Try to maintain good sleep wake cycles - EKG today (2) Chronic kidney disease (CKD) 08/11 - DC lithium. Will attempt to stabilize mood with atypicals - Collaborate with Dr. Ovalles as needed (3) Hypothyroidism 08/11 - TSH WNL and not on levothyroxine. - May have had abnl values in the past related to being on lithium (4) Hyperlipemia 08/11 - Continue home dose of atorvastatin - FLP done 07/24 Discharge / Aftercare Planning Primary Care Physician: Name: Santos CRUZNP [facility] Appointment Notes: [address] [place] [address] Psychiatrist: Name: Dr. Hahn [facility] Clinic Appointment Notes: [address] [facility] [address] Therapist: Name: Greyson Silverio [facility] Appointment Notes: [address] [facility] [address] Correspondence Section Supervisor: Name: Zulay Macias Home Health Services: Home Health Services: social worker health services, home health agency Home Health Agency: [facility] Visit Code E&M Code: 14085 Inventory Assets Strengths: Support from partner, good relationship with outpatient provider Needs: Clarity with her medications Risk Factors Assessment : Yes /single/: No Higher / Fall in social status: No Health problems: Yes Mental Health Diagnoses: Yes Substance use disorders: No Previous psychiatric stay: Yes Hopelessness: No Smoker: No Protective Factors Assessment : No Responsible for young children: No Employed: No Stable relationships: Yes Supportive family: Yes Good rapport with provider: Yes Data Vital Signs Last 24 Hrs: Date Time Temp Pulse Resp B/P (MAP) Pulse Ox O2 Delivery O2 Flow Rate FiO2 08/19/17 07:04 36.7 83 20 131/91 Meds Administered Last 24 Hrs: Meds Administered (Past 24Hrs) Medications (Trade) Dose Ordered Sig/Kelsey Route Start Time Stop Time Status Last Admin Dose Admin Chlorpromazine HCl (Thorazine Tab) 25 mg Q2H PRN PO 08/18/17 10:00 08/18/17 14:03 DC 08/18/17 12:28 25 MG Chlorpromazine HCl (Thorazine Tab) 100 mg HS PO 08/18/17 22:00 09/17/17 21:59 08/18/17 19:54 100 MG Chlorpromazine HCl (Thorazine Tab) 50 mg Q4H PRN PO 08/18/17 14:15 09/17/17 14:14 08/19/17 02:38 50 MG Lab Results Last 24 Hrs: 08/10/17 12:56 Red Blood Count 3.35, Mean Corpuscular Volume 90.1, Mean Corpuscular Hemoglobin 29.9, Mean Corpuscular Hemoglobin Concent 33.1, Mean Platelet Volume 9.3, Neutrophils (%) (Auto) 75.5, Lymphocytes (%) (Auto) 11.1, Monocytes (%) (Auto) 9.1, Eosinophils (%) (Auto) 3.0, Basophils (%) (Auto) 0.3, Neutrophils # (Auto) 4.71, Lymphocytes # (Auto) 0.69, Monocytes # (Auto) 0.57, Eosinophils # (Auto) 0.19, Basophils # (Auto) 0.02 08/10/17 12:56 Test 08/10/17 12:35 08/10/17 12:56 Urine Color YELLOW Urine Appearance CLEAR (CLEAR) Urine pH 7.0 (4.5-7.5) Urine Specific [place] 1.008 (1.000-1.030) Urine Protein 1+ (NEG) Urine Glucose (UA) NEG (NEG) Urine Ketones NEG (NEG) Urine Occult Blood NEG (NEG) Urine Nitrite NEG (NEG) Urine Bilirubin NEG (NEG) Urine Urobilinogen NEG (NEG) Urine Leukocyte Esterase TRACE (NEG) Urine WBC (Auto) 1-5 /hpf (0-5) Urine RBC (Auto) 0-4 /hpf (0-4) Urine Hyaline Casts (Auto) 0 /lpf (0-5) Urine Epithelial Cells (Auto) 0-5 /lpf (0-5) Urine Bacteria (Auto) NEG (NEG) Urine Opiates Screen NEG (NEG) Urine Methadone, Qualitative NEG (NEG) Urine Barbiturates NEG (NEG) Urine Phencyclidine (PCP) Level NEG (NEG) Ur Amphetamine/Methamphetamine NEG (NEG) MDMA (Ecstasy) Screen NEG (NEG) Urine Benzodiazepines Screen NEG (NEG) Urine Cocaine Metabolite NEG (NEG) Urine Marijuana (THC) NEG (NEG) White Blood Count 6.24 K/uL (4.8-10.8) Red Blood Count 3.35 M/uL (4.2-5.4) Hemoglobin 10.0 g/dL (12.0-16.0) Hematocrit 30.2 % (37-47) Mean Corpuscular Volume 90.1 fL (80-100) Mean Corpuscular Hemoglobin 29.9 pg (25-34) Mean Corpuscular Hemoglobin Concent 33.1 g/dl (32-36) Platelet Count 278 K/uL (130-400) Mean Platelet Volume 9.3 fL (7.4-10.4) Neutrophils (%) (Auto) 75.5 % Lymphocytes (%) (Auto) 11.1 % Monocytes (%) (Auto) 9.1 % Eosinophils (%) (Auto) 3.0 % Basophils (%) (Auto) 0.3 % Neutrophils # (Auto) 4.71 K/uL (1.4-6.5) Lymphocytes # (Auto) 0.69 K/uL (1.2-3.4) Monocytes # (Auto) 0.57 K/uL (0.11-0.59) Eosinophils # (Auto) 0.19 K/uL (0-0.5) Basophils # (Auto) 0.02 K/uL (0-0.2) RDW Standard Deviation 49.4 fL (36.4-46.3) RDW Coefficient of Variation 15.0 % (11.5-14.5) Immature Granulocyte % (Auto) 1.0 % Immature Granulocyte # (Auto) 0.06 K/uL (0.00-0.02) Anion Gap 4.0 mmol/L (3-11) Est Creatinine Clear Calc Drug Dose 33.1 ml/min Estimated GFR () 43.3 Estimated GFR (Non- 37.4 BUN/Creatinine Ratio 15.9 (10-20) Calcium Level 9.5 mg/dl (8.5-10.1) Total Bilirubin 0.3 mg/dl (0.2-1) Aspartate Amino Transf (AST/SGOT) 22 U/L (15-37) Alanine Aminotransferase (ALT/SGPT) 49 U/L (12-78) Alkaline Phosphatase 130 U/L (45-117) Total Protein 7.2 gm/dl (6.4-8.2) Albumin 3.4 gm/dl (3.4-5.0) Globulin 3.8 gm/dl (2.5-4.0) Albumin/Globulin Ratio 0.9 (0.9-2) Thyroid Stimulating Hormone (TSH) 2.020 uIu/ml (0.300-4.500) Salicylates Level < 1.7 mg/dl (2.8-20) Acetaminophen Level < 2 ug/ml (10-30) [place] Level 0.9 mMOL/L (0.6-1.2) Ethyl Alcohol mg/dL < 3.0 mg/dl (0-3) Problem Qualifiers (1) Chronic kidney disease (CKD): Chronic kidney disease stage: stage 1 Qualified Codes: N18.1 - Chronic kidney disease, stage 1
[2017-08-19] MEDS ORDERED: CHLORPROMAZINE HCL 25 MG TAB PO ONE (10:30)
[2017-08-19] MEDS: CHOLESTYRAMINE LIGHT 4 GM PKT PO SCH (13:43)
[2017-08-19] MEDS: ATORVASTATIN 10 MG TAB PO SCH (21:17)
[2017-08-19] MEDS: ZOLPIDEM TARTRATE 5 MG TAB PO SCH (21:17)
[2017-08-19] MEDS: CLONAZEPAM 1 MG TAB PO SCH (21:17)
[2017-08-19] MEDS: CHLORPROMAZINE HCL 100 MG TAB PO SCH (21:18)
[2017-08-19] MEDS: MELATONIN 3 MG PO SCH (21:18)
[2017-08-19] MEDS: hydrOXYzine HCL 25 MG TAB PO PRN (21:19)
[2017-08-20] MEDS: CHLORPROMAZINE HCL 25 MG TAB PO PRN ×5 (03:57→19:25)
[2017-08-20 06:44] VITALS: BP_SYST 133; BP_SYST 146; BP_DIAS 76; BP_DIAS 84; PULSE 96; PULSE 99; TEMP 36.9
[2017-08-20] MEDS: OMEGA-3 (PURIFIED FISH OIL) 1 GM CAP PO SCH ×2 (07:59→20:12)
[2017-08-20] MEDS: TRIHEXYPHENIDYL HCL 2 MG TAB PO SCH (07:59)
[2017-08-20] MEDS: CEROVITE ADV FORMULA TAB PO SCH (07:59)
[2017-08-20] MEDS: LOSARTAN POTASSIUM 25 MG TAB PO SCH (07:59)
[2017-08-20] MEDS: PANTOprazole SOD 40 MG TAB PO SCH (07:59)
[2017-08-20] MEDS: TOCOPHERYL, DL-ALPHA 400 INTER.UNIT CAP PO SCH (08:00)
[2017-08-20] MEDS: MONTELUKAST SOD 10 MG TAB PO SCH (08:00)
[2017-08-20] MEDS: VRAYLAR 6 MG PO SCH (08:02)
--- NOTE | 2017-08-20 11:57 | Psychiatric Progress Notes ---
Progress Note Date of Service Aug 20, 2017. Interval History 67-year-old woman readmitted voluntarily after having been discharged 3 day prior to most recent admission. She is sleepless, delusional again. Chief Complaint "I like that scarf. I need your outfits...I'm a medium...as fast as possible...fast...fast." Subjective Patient was seen & assessed interval progress reviewed with Nursing. Staff reports the patient remains severely manic and is requiring 1-to-1 to monitor behavior as well as provide safety as patient presents concern for falls in her current state. She is reported to have slept 4.75 hours last evening, but has been awake, active, and hyperverbal since. Pt was seen today to assess progress since admission. Pt is much less organized and unable to offer adequate history at the time of this encounter. Though patient is hard of hearing and difficulty to understand at baseline, the patient's speech is almost incoherent at this time. Pt is observed throughout the day with ongoing 1-to-1 supervision and displays ongoing manic behavior. She slept for 15 minutes this afternoon and quickly returned to her baseline behavior. Pt does not report any new concerns at this time. Review of Systems Psych: denies symptoms other than stated above Constitutional: none reported Cardiovascular: none reported GI: none reported Neurologic: none reported Remainder of 10 body systems also reviewed and denied other than noted above. Sleep Information Total Hours of Sleep: 4.75 Meal Information Percent of Breakfast Consumed: 50 Percent of Lunch Consumed: 50 Percent of Dinner Consumed: 5 Mental Status Exam During interview pt is: alert and oriented, other (disorganized) Appearance: appropriately dressed, disheveled Eye contact is: good Motor behavior is: steady gait & station, psychomotor agitation Speech: other (inarticulate, worsening in ongoing manic state) Affect: labile (laughing, crying) Mood is: other (appears manic, unable to verbalize observations of mood) Thought process: tangential (worsening), flight of ideas Thought content: delusions (believes she is ) Suicidal thought are: denied Homicidal thoughts are: denied Hallucinations: denies auditory, denies visual Cognition: other (all spheres impaired) Intelligence estimated to be: average Insight: severely impaired Judgement: severely impaired Impression Pt remains hyperverbal and appears to be in an ongoing manic state. Pt unable to experience restorative sleep. Agree with allowing additional time for Vraylar to take full effect; however, due to safety risk, might be helpful to add additional mood stabilizer in the meantime. Pt appears to be responding mildly to Thorazine prn and 200mg HS, but presents concern for increased fall risk if continuing to increase dose as patient is already unstable. Due to the little response with Thorazine, other medications have been considered to increase aggression with treatment while awaiting response to Vraylar. Considerations made for retrial of Depakote or start of Tegretol; however continued worsening of manic behaviors may warrant use of low-dose [place]ga, which we know patient has responded well to in the past. Notes from patient's outpatient psychiatrist report that the patient experienced fatigue and diarrhea with Lamictal. In addition to "concern about avoiding toxicity with her decreasing kidney function", the Menahga was switched to Men[place] ER as it was being decreased. As concerns appear to be primarily related to fatigue and diarrhea, will restart Men[place]ga at 150mg qHS in attempts to stabilize mood. Ideally this would be a short-term addition, in hopes that patient begins to show greater response to Vraylar. Will also increase Klonopin dose to 2.5mg qHS as patient has not shown improvement in sleep, which only further contributes to her current condition. As patient is currently on 1-to-1 observation, will continue to manage appropriately for fall risk, which may be increased with higher dose Klonopin; however, it appears necessary in the short-term to improve sleep. Plan (1) Bipolar 1 disorder with mixed features 08/11 - Increase Klonopin back to 1.5 mg HS to target sleep - Will DC lithium at this point due to concerns for her age and renal status - Will increase Risperdal to 1 mg. AM and 7 mg HS - Will DC navane to reduce polypharmacy - Continue prn haldol and increase to q 4 hr prn - Will have nursing attempt to preauth Vraylar to trial - DC Zoloft - Q 15 min checks for safety - Encourage participation in group and individual counseling as tolerated - Coordinate with current providers - had FLP and FBS on 07/23/17. All WNL with the exception of triglycerides of 151 and FBS 129 08/12 - Vraylar trial when Alex can bring it in - Start 1.5 mg daily increasing to 3 mg daily the following day. - Will taper risperdal at the same time 08/13 -Vraylar was actually started at 3mg hs on 08/12 since only 3mg capsules for supply. given s/e profile will move vraylar to earlier in day, will maintain pt at 3mg for time being given long half life of med and long half life of active metabolite tapering risperdal maintained at 1mg am and 3mg hs for now since just lowered by 4mg continue prn haldol doses 08/14 -maintained vraylar 3mg qday -maintained risperdal 1mg am and 3mg hs for now, aim to wean risperdal further as adjusting to vraylar over next days 08/15 - Continue Vraylar 3mg daily - Plan to continue to taper risperdal, however patient appears to be displaying more restlessness today in regard to manic behaviors and requiring redirection from staff and prn Haldol more frequently. - Attempt to determine proximity to baseline with visits from her fiance 08/16 - Vraylar increased to 6mg daily 08/17 - Discontinue risperidone due to inefficacy, and increase Haldol prn to 10mg. - Resume trihexphenidyl at 1mg daily and monitor restlessness as able. Challenging to know if her agitation is due to akathisia, anxiety, psychosis, or stefan, and she is a limited historian. 08/18 - DC haldol due to no response - Start Thorazine 25 mg. q 2 hr prn during the day and 100 mg. scheduled at HS 08/19 - Increase thorazine to 50 q 3 hr prn and 200 mg. HS - Try to maintain good sleep wake cycles - EKG today 08/20 - 150mg of [place] to be added this evening to stabilize mood in interim of response to Vraylar, level in 5 days to monitor for possible toxicity. - Increase Klonopin to 2.5mg qHS to better target sleep. Pt remains on 1-to- 1 observation currently, continue safety precautions for fall risk with medication changes - Encourage sleep as able, with target to keep patient in appropriate sleep- wake cycle. Daytime naps are limited in length. (2) Chronic kidney disease (CKD) 08/11 - DC lithium. Will attempt to stabilize mood with atypicals - Collaborate with Dr. Ovalles as needed 08/20 - Restart Menahga at 150mg qHS in attempt to stabilize mood and target manic behaviors. Ideally would be used in the short-term until response to Vraylar is more evident; however, patient is known to have responded well in the past. (3) Hypothyroidism 08/11 - TSH WNL and not on levothyroxine. - May have had abnl values in the past related to being on lithium (4) Hyperlipemia 08/11 - Continue home dose of atorvastatin - FLP done 07/24 Discharge / Aftercare Planning Primary Care Physician: Name: Santos JACKSON [employer] [facility] [employer] Appointment Notes: [facility] [place] [address] Psychiatrist: Name: Dr. Hahn, [facility] Psych Clinic Appointment Notes: [address] [place] [id number] Therapist: Name: Katerina Valerio [facility] Appointment Notes: [address] [place] [id number] Operations Research Engineer: Name: Zulay Macias Home Health Services: Home Health Services: social science teacher, home health agency Home Health Agency: [facility] Visit Code E&M Code: 08886 Inventory Assets Strengths: Support from partner, good relationship with outpatient provider Needs: Clarity with her medications Risk Factors Assessment : Yes /single/: No Higher / Fall in social status: No Health problems: Yes Mental Health Diagnoses: Yes Substance use disorders: No Previous psychiatric stay: Yes Hopelessness: No Smoker: No Protective Factors Assessment : No Responsible for young children: No Employed: No Stable relationships: Yes Supportive family: Yes Good rapport with provider: Yes Data Vital Signs Last 24 Hrs: Date Time Temp Pulse Resp B/P (MAP) Pulse Ox O2 Delivery O2 Flow Rate FiO2 08/20/17 06:44 36.9 99 20 146/84 96 133/76 Meds Administered Last 24 Hrs: Meds Administered (Past 24Hrs) Medications (Trade) Dose Ordered Sig/Kelsey Route Start Time Stop Time Status Last Admin Dose Admin Chlorpromazine HCl (Thorazine Tab) 100 mg HS PO 08/18/17 22:00 08/19/17 09:43 DC 08/18/17 19:54 100 MG Chlorpromazine HCl (Thorazine Tab) 50 mg Q4H PRN PO 08/18/17 14:15 08/19/17 09:43 DC 08/19/17 09:26 50 MG Chlorpromazine HCl (Thorazine Tab) 50 mg Q3H PRN PO 08/19/17 09:45 09/17/17 14:14 08/20/17 08:05 50 MG Chlorpromazine HCl (Thorazine Tab) 200 mg HS PO 08/19/17 22:00 09/18/17 21:59 08/19/17 21:18 200 MG Chlorpromazine HCl (Thorazine Tab) 50 mg NOW ONCE PO 08/19/17 10:30 08/19/17 10:35 DC 08/19/17 10:54 50 MG Problem Qualifiers (1) Chronic kidney disease (CKD): Chronic kidney disease stage: stage 1 Qualified Codes: N18.1 - Chronic kidney disease, stage 1
[2017-08-20] MEDS: CHOLESTYRAMINE LIGHT 4 GM PKT PO SCH (13:24)
[2017-08-20] MEDS: hydrOXYzine HCL 25 MG TAB PO PRN (19:25)
[2017-08-20] MEDS: CHLORPROMAZINE HCL 100 MG TAB PO SCH (20:07)
[2017-08-20] MEDS: MELATONIN 3 MG PO SCH (20:08)
[2017-08-20] MEDS: LITHIUM CARBONATE 300 MG TAB PO SCH (20:10)
[2017-08-20] MEDS: ATORVASTATIN 10 MG TAB PO SCH (20:11)
[2017-08-20] MEDS: ZOLPIDEM TARTRATE 5 MG TAB PO SCH (20:16)
[2017-08-20] MEDS: CLONAZEPAM 1 MG TAB PO SCH (21:03)
[2017-08-20] MEDS ORDERED: LITHIUM CARBONATE 450 MG TABCR PO SCH (22:00)
[2017-08-21] MEDS: hydrOXYzine HCL 25 MG TAB PO PRN (00:18)
[2017-08-21] MEDS: TRAMADOL HCL 50 MG TAB PO PRN (00:19)
[2017-08-21] MEDS: CHLORPROMAZINE HCL 25 MG TAB PO PRN ×2 (00:19→07:47)
[2017-08-21 06:26] VITALS: BP_SYST 152; BP_SYST 169; BP_DIAS 90; BP_DIAS 92; PULSE 85; TEMP 36.4
[2017-08-21] MEDS: PANTOprazole SOD 40 MG TAB PO SCH (07:47)
[2017-08-21] MEDS: TOCOPHERYL, DL-ALPHA 400 INTER.UNIT CAP PO SCH (07:47)
[2017-08-21] MEDS: CEROVITE ADV FORMULA TAB PO SCH (07:47)
[2017-08-21] MEDS: LOSARTAN POTASSIUM 25 MG TAB PO SCH (07:47)
[2017-08-21] MEDS: MONTELUKAST SOD 10 MG TAB PO SCH (07:47)
[2017-08-21] MEDS: VRAYLAR 6 MG PO SCH (07:48)
[2017-08-21] MEDS: TRIHEXYPHENIDYL HCL 2 MG TAB PO SCH (07:48)
[2017-08-21] MEDS: OMEGA-3 (PURIFIED FISH OIL) 1 GM CAP PO SCH ×2 (07:48→20:21)
--- NOTE | 2017-08-21 12:18 | Psychiatric Progress Notes ---
Progress Note Date of Service Aug 21, 2017. Interval History 67-year-old woman readmitted voluntarily after having been discharged 3 day prior to most recent admission. She is sleepless, delusional again. Chief Complaint Patient seen for daily follow-up Subjective Patient was seen & assessed interval progress reviewed with Treatment Team. Per staff, patient did have 3 periods of rest for 1-1/2-2 hours at a time yesterday totaling approximately 6 hours of sleep. He has been episodically restless, tremulous, appearing more confused. Yesterday she again did not want to avoid for fear that her babies would fall out. She did receive 450 mg of Thorazine in total on 08/20/2017. Very low dose lithium was restarted yesterday for additional mood stabilization as she is not responding adequately to aggressive antipsychotic treatment. I reviewed the nephrology consultation from June 2017 who felt that it would be appropriate to continue the medication with monitoring and her most EGFR is not terribly low. When I first went to interview Brenda this morning she was found asleep. When I approached her again later she was awake and stroking a stuffed animal and talking into her chest like a baby but then appeared orally fixated and began looking at's arms and eyeballs. She was not able to follow one-step commands. Her speech was persistently unintelligible. Review of Systems Patient unable to participate in review of systems Sleep Information Total Hours of Sleep: 5.75 Meal Information Percent of Breakfast Consumed: 50 Percent of Lunch Consumed: 50 Percent of Dinner Consumed: 10 Mental Status Exam During interview pt is: other (Awake and confused) Appearance: disheveled Eye contact is: fair Motor behavior is: other (She is lying in the bed rather still but very busily engaged with a stuffed animal) Speech: other (Unintelligible, hyperverbal) Affect: other (Bizarre/staring) Mood is: other (appears manic, unable to verbalize observations of mood) Thought process: incoherent Thought content: delusions (believes she is ) Cognition: other (all spheres impaired) Intelligence estimated to be: average Insight: severely impaired Judgement: severely impaired Impression Appears the Thorazine may be catching up to her and she is getting better sleep in last 24h but still highly disorganized. Remains on Vraylar. Li restarted and klonopin increased yesterday. Plan (1) Bipolar 1 disorder with mixed features 08/11 - Increase Klonopin back to 1.5 mg HS to target sleep - Will DC lithium at this point due to concerns for her age and renal status - Will increase Risperdal to 1 mg. AM and 7 mg HS - Will DC navane to reduce polypharmacy - Continue prn haldol and increase to q 4 hr prn - Will have nursing attempt to preauth Vraylar to trial - DC Zoloft - Q 15 min checks for safety - Encourage participation in group and individual counseling as tolerated - Coordinate with current providers - had FLP and FBS on 07/23/17. All WNL with the exception of triglycerides of 151 and FBS 129 08/12 - Vraylar trial when Alex can bring it in - Start 1.5 mg daily increasing to 3 mg daily the following day. - Will taper risperdal at the same time 08/13 -Vraylar was actually started at 3mg hs on 08/12 since only 3mg capsules for supply. given s/e profile will move vraylar to earlier in day, will maintain pt at 3mg for time being given long half life of med and long half life of active metabolite tapering risperdal maintained at 1mg am and 3mg hs for now since just lowered by 4mg continue prn haldol doses 08/14 -maintained vraylar 3mg qday -maintained risperdal 1mg am and 3mg hs for now, aim to wean risperdal further as adjusting to vraylar over next days 08/15 - Continue Vraylar 3mg daily - Plan to continue to taper risperdal, however patient appears to be displaying more restlessness today in regard to manic behaviors and requiring redirection from staff and prn Haldol more frequently. - Attempt to determine proximity to baseline with visits from her fiance 08/16 - Vraylar increased to 6mg daily 08/17 - Discontinue risperidone due to inefficacy, and increase Haldol prn to 10mg. - Resume trihexphenidyl at 1mg daily and monitor restlessness as able. Challenging to know if her agitation is due to akathisia, anxiety, psychosis, or stefan, and she is a limited historian. 08/18 - DC haldol due to no response - Start Thorazine 25 mg. q 2 hr prn during the day and 100 mg. scheduled at HS 08/19 - Increase thorazine to 50 q 3 hr prn and 200 mg. HS - Try to maintain good sleep wake cycles - EKG today 08/20 - 150mg of [place] to be added this evening to stabilize mood in interim of response to Vraylar, level in 5 days to monitor for possible toxicity. - Increase Klonopin to 2.5mg qHS to better target sleep. Pt remains on 1-to- 1 observation currently, continue safety precautions for fall risk with medication changes - Encourage sleep as able, with target to keep patient in appropriate sleep- wake cycle. Daytime naps are limited in length. 08/21 - Li restarted yesterday which is not expected to demonstrate a quick benefit but in deference to long standing treatment and increased risk for ongoing mood instability off the medication. given renal impairment, she will need more frequent monitoring but the potential benefit is felt to outweigh the risk given the severity of her underlying mental health d/o. I would suggest maintaining this very low dose and checking a level on the (which I ordered today) before further titration. - sleeping more in last 24h getting high dose Thorazine which, unfortunately , may also be making her delirious. I am uncertain if she has been treated with high dose seroquel previously but that could be considered as an alternative if she struggles to tolerate the Thorazine moving forward. - will increase melatonin to 9mg qhs for additional sleep benefit with minimal risk for worsening delirium. could also consider temporarily maximizing ambien at 10mg but will defer for today 2/2 delirium as sleep is presently improving which will hopefully show antimanic effect. (2) Chronic kidney disease (CKD) 08/11 - DC lithium. Will attempt to stabilize mood with atypicals - Collaborate with Dr. Ovalles as needed 08/20 - Restart [place] at 150mg qHS in attempt to stabilize mood and target manic behaviors. Ideally would be used in the short-term until response to Vraylar is more evident; however, patient is known to have responded well in the past. 08/21 - increase losartan to 50mg for persistently elevated BP's (3) Hypothyroidism 08/11 - TSH WNL and not on levothyroxine. - May have had abnl values in the past related to being on lithium (4) Hyperlipemia 08/11 - Continue home dose of atorvastatin - FLP done 07/24 Discharge / Aftercare Planning Primary Care Physician: Name: Santos JACKSON [facility] Appointment Notes: [address] [place] [address] Psychiatrist: Name: Dr. Hahn, [facility] Clinic Appointment Notes: [address] [place] [address] Therapist: Name: Greyson Silverio [facility] Appointment Notes: [address] [place] [address] Preventive Maintenance Coordinator: Name: Zulay Macias Home Health Services: Home Health Services: social service coordinator, home health agency Home Health Agency: [facility] Visit Code E&M Code: 59700 Inventory Assets Strengths: Support from partner, good relationship with outpatient provider Needs: Clarity with her medications Risk Factors Assessment : Yes /single/: No Higher / Fall in social status: No Health problems: Yes Mental Health Diagnoses: Yes Substance use disorders: No Previous psychiatric stay: Yes Hopelessness: No Smoker: No Protective Factors Assessment : No Responsible for young children: No Employed: No Stable relationships: Yes Supportive family: Yes Good rapport with provider: Yes Data Vital Signs Last 24 Hrs: Date Time Temp Pulse Resp B/P (MAP) Pulse Ox O2 Delivery O2 Flow Rate FiO2 08/21/17 06:26 36.4 85 20 169/92 85 152/90 Meds Administered Last 24 Hrs: Meds Administered (Past 24Hrs) Medications (Trade) Dose Ordered Sig/Kelsey Route Start Time Stop Time Status Last Admin Dose Admin Chlorpromazine HCl (Thorazine Tab) 200 mg HS PO 08/19/17 22:00 09/18/17 21:59 08/20/17 20:07 200 MG Clonazepam (Klonopin Tab) 2.5 mg HS PO 08/20/17 22:00 09/10/17 21:59 08/20/17 21:03 2.5 MG [place] Carbonate ([place] Carbonate Tab) 150 mg HS PO 08/20/17 22:00 09/19/17 21:59 08/20/17 20:10 150 MG Problem Qualifiers (1) Chronic kidney disease (CKD): Chronic kidney disease stage: stage 1 Qualified Codes: N18.1 - Chronic kidney disease, stage 1
[2017-08-21] MEDS: CHOLESTYRAMINE LIGHT 4 GM PKT PO SCH (13:49)
[2017-08-21] MEDS ORDERED: CLONAZEPAM 0.5 MG TAB PO ONE (14:00)
[2017-08-21] MEDS: ZOLPIDEM TARTRATE 5 MG TAB PO SCH (20:17)
[2017-08-21] MEDS: ATORVASTATIN 10 MG TAB PO SCH (20:19)
[2017-08-21] MEDS: CLONAZEPAM 1 MG TAB PO SCH (20:19)
[2017-08-21] MEDS: LITHIUM CARBONATE 300 MG TAB PO SCH (20:19)
[2017-08-21] MEDS: MELATONIN 3 MG TAB PO SCH (20:20)
[2017-08-21] MEDS: CHLORPROMAZINE HCL 100 MG TAB PO SCH (20:23)
[2017-08-22 06:49] VITALS: BP_SYST 115; BP_SYST 140; BP_DIAS 76; BP_DIAS 85; PULSE 96; PULSE 99; TEMP 36.8
[2017-08-22] MEDS: ERGOCALCIFEROL 50,000 INTER.UNIT CAP PO SCH (07:25)
[2017-08-22] MEDS: TOCOPHERYL, DL-ALPHA 400 INTER.UNIT CAP PO SCH (07:25)
[2017-08-22] MEDS: TRIHEXYPHENIDYL HCL 2 MG TAB PO SCH (07:25)
[2017-08-22] MEDS: CEROVITE ADV FORMULA TAB PO SCH (07:25)
[2017-08-22] MEDS: MONTELUKAST SOD 10 MG TAB PO SCH (07:25)
[2017-08-22] MEDS: LOSARTAN POTASSIUM 50 MG TAB PO SCH (07:25)
[2017-08-22] MEDS: PANTOprazole SOD 40 MG TAB PO SCH (07:25)
[2017-08-22] MEDS: VRAYLAR 6 MG PO SCH (07:26)
[2017-08-22] MEDS: OMEGA-3 (PURIFIED FISH OIL) 1 GM CAP PO SCH ×2 (07:45→21:05)
--- NOTE | 2017-08-22 11:55 | Psychiatric Progress Notes ---
Progress Note Date of Service Aug 22, 2017. Interval History 67-year-old woman readmitted voluntarily after having been discharged 3 day prior to most recent admission. She is sleepless, delusional again. Chief Complaint "Quack, quack". [referring to stuffed platypus at bedside] Subjective Patient was seen & assessed interval progress reviewed with Treatment Team. Staff reports received 4 hours of consecutive sleep last evening. Pt is also reported to have broken her hearing aid, making it increasingly difficult to communicate with the patient. Pt was restarted on [place] over the weekend due to patient's longstanding history with the medication, and potential that discontinuation of the medication could be worsening mood stabilization. Pt tolerating well. Pt was seen today to assess progress since admission. Interview with the patient is largely unproductive due to disorganization, potential for delirium, and intelligible speech. Pt did allow for examination of her abdomen as staff reported concerns about distention over the course of her stay. Pt appears mildly slowed today as she at least remains in one position during our interview; however, she continues to be hyperverbal, disorganized, and frequently changing the focus of her attention. Pt unable to report concerns, but appears to be free of pain or other disturbing symptoms. Review of Systems Psych: denies symptoms other than stated above Constitutional: does not report Cardiovascular: does not report GI: does not report Neurologic: does not report Remainder of 10 body systems also reviewed and does not report symptoms other than noted above. Sleep Information Total Hours of Sleep: 6.00 Meal Information Percent of Breakfast Consumed: 50 Percent of Lunch Consumed: 70 Percent of Dinner Consumed: 50 Mental Status Exam During interview pt is: other (remains confused, but awake) Appearance: disheveled Eye contact is: poor (frequently changing focus of attention, not actively engaged in conversation) Motor behavior is: other (Slowed in regard to large motor movements; however, active in regard to playing with stuffed animal and moving her hands) Speech: other (Unintelligible, hyperverbal) Affect: other (remains bizarre/staring) Mood is: other (Unable to verbalize observations of mood, appears manic vs. delirius) Thought process: incoherent Thought content: delusions (believes she is ) Cognition: other (all spheres severely impaired) Intelligence estimated to be: average Insight: severely impaired Judgement: severely impaired Limited examination of abdomen performed due to staff's concern for distention during patient's hospitalization, and limited bowel movements. No visible masses, palpitations, excoriations, or bruising noted. Only light palpation performed with no expressed tenderness based on patient's facial expression. Abdomen is soft with no palpable masses. Pt unable to report any pain or concerns during examination. Impression Pt appears to be slowing mildly in regard to manic/delirious behavior; however, continues to fight sleep. Requiring frequent redirection and has required 1-to- 1 supervision. Low-dose lithium restarted in attempts to compensate for discontinuation after long treatment history. Will require frequent monitoring if dose is to continue. Not ideal choice due to patient ongoing decline in renal function; however, patient and her significant other continue to report resistance to other recommended agents for mood stabilization to to reports of unfavorable experiences in the past. ECT discussed as patient has failed several antipsychotic trials and limited options remaining to stabilize mood and target ongoing symptoms. Pt's significant other is unwilling for ECT at this time due to increased suicidality in the past; but also unwilling for medication recommendations. Remains on Vraylar, Thorazine, [place], and Klonopin; however, will need to continue development of treatment plan that will allow us to decrease low-dose polypharmacy if possible. Plan (1) Bipolar 1 disorder with mixed features 08/11 - Increase Klonopin back to 1.5 mg HS to target sleep - Will DC lithium at this point due to concerns for her age and renal status - Will increase Risperdal to 1 mg. AM and 7 mg HS - Will DC navane to reduce polypharmacy - Continue prn haldol and increase to q 4 hr prn - Will have nursing attempt to preauth Vraylar to trial - DC Zoloft - Q 15 min checks for safety - Encourage participation in group and individual counseling as tolerated - Coordinate with current providers - had FLP and FBS on 07/23/17. All WNL with the exception of triglycerides of 151 and FBS 129 08/12 - Vraylar trial when Alex can bring it in - Start 1.5 mg daily increasing to 3 mg daily the following day. - Will taper risperdal at the same time 08/13 -Vraylar was actually started at 3mg hs on 08/12 since only 3mg capsules for supply. given s/e profile will move vraylar to earlier in day, will maintain pt at 3mg for time being given long half life of med and long half life of active metabolite tapering risperdal maintained at 1mg am and 3mg hs for now since just lowered by 4mg continue prn haldol doses 08/14 -maintained vraylar 3mg qday -maintained risperdal 1mg am and 3mg hs for now, aim to wean risperdal further as adjusting to vraylar over next days 08/15 - Continue Vraylar 3mg daily - Plan to continue to taper risperdal, however patient appears to be displaying more restlessness today in regard to manic behaviors and requiring redirection from staff and prn Haldol more frequently. - Attempt to determine proximity to baseline with visits from her fiance 08/16 - Vraylar increased to 6mg daily 08/17 - Discontinue risperidone due to inefficacy, and increase Haldol prn to 10mg. - Resume trihexphenidyl at 1mg daily and monitor restlessness as able. Challenging to know if her agitation is due to akathisia, anxiety, psychosis, or stefan, and she is a limited historian. 08/18 - DC haldol due to no response - Start Thorazine 25 mg. q 2 hr prn during the day and 100 mg. scheduled at HS 08/19 - Increase thorazine to 50 q 3 hr prn and 200 mg. HS - Try to maintain good sleep wake cycles - EKG today 08/20 - 150mg of [place] to be added this evening to stabilize mood in interim of response to Vraylar, level in 5 days to monitor for possible toxicity. - Increase Klonopin to 2.5mg qHS to better target sleep. Pt remains on 1-to- 1 observation currently, continue safety precautions for fall risk with medication changes - Encourage sleep as able, with target to keep patient in appropriate sleep- wake cycle. Daytime naps are limited in length. 08/21 - Li restarted yesterday which is not expected to demonstrate a quick benefit but in deference to long standing treatment and increased risk for ongoing mood instability off the medication. given renal impairment, she will need more frequent monitoring but the potential benefit is felt to outweigh the risk given the severity of her underlying mental health d/o. I would suggest maintaining this very low dose and checking a level on the (which I ordered today) before further titration. - sleeping more in last 24h getting high dose Thorazine which, unfortunately , may also be making her delirious. I am uncertain if she has been treated with high dose seroquel previously but that could be considered as an alternative if she struggles to tolerate the Thorazine moving forward. - will increase melatonin to 9mg qhs for additional sleep benefit with minimal risk for worsening delirium. could also consider temporarily maximizing ambien at 10mg but will defer for today 2/2 delirium as sleep is presently improving which will hopefully show antimanic effect. 08/22 - Continue on Thorazine, Vraylar, [place], and Klonopin. [place] level ordered for 08/25. - Will attempt to develop plan to decrease low-dose polypharmacy; Pt's significant other hesitant for other medication changes and is unwilling for ECT at this time - Continue delirium protocol with encouraging appropriate sleep/wake cycles (2) Chronic kidney disease (CKD) 08/11 - DC lithium. Will attempt to stabilize mood with atypicals - Collaborate with Dr. Ovalles as needed 08/20 - Restart [place] at 150mg qHS in attempt to stabilize mood and target manic behaviors. Ideally would be used in the short-term until response to Vraylar is more evident; however, patient is known to have responded well in the past. 08/21 - increase losartan to 50mg for persistently elevated BP's (3) Hypothyroidism 08/11 - TSH WNL and not on levothyroxine. - May have had abnl values in the past related to being on lithium (4) Hyperlipemia 08/11 - Continue home dose of atorvastatin - FLP done 07/24 Discharge / Aftercare Planning Primary Care Physician: Name: Santos JACKSON [facility] [address] [facility] [place] [address] Psychiatrist: Name: Dr. Hahn, [facility] Psych Clinic Appointment Notes: [address] [place] [address] Therapist: Name: Katerina Valerio [facility] Clinic Appointment Notes: [address] [place] [address] Fruit Grader: Name: Zulay Macias Home Health Services: Home Health Services: social human services assistants, home health agency Home Health Agency: [facility] Visit Code E&M Code: 07738 Inventory Assets Strengths: Support from partner, good relationship with outpatient provider Needs: Clarity with her medications Risk Factors Assessment : Yes /single/: No Higher / Fall in social status: No Health problems: Yes Mental Health Diagnoses: Yes Substance use disorders: No Previous psychiatric stay: Yes Hopelessness: No Smoker: No Protective Factors Assessment : No Responsible for young children: No Employed: No Stable relationships: Yes Supportive family: Yes Good rapport with provider: Yes Data Vital Signs Last 24 Hrs: Date Time Temp Pulse Resp B/P (MAP) Pulse Ox O2 Delivery O2 Flow Rate FiO2 08/22/17 06:49 36.8 96 16 140/85 99 115/76 Meds Administered Last 24 Hrs: Meds Administered (Past 24Hrs) Medications (Trade) Dose Ordered Sig/Kelsey Route Start Time Stop Time Status Last Admin Dose Admin Clonazepam (Klonopin Tab) 2.5 mg HS PO 08/20/17 22:00 09/10/17 21:59 08/21/17 20:19 2.5 MG [place] Carbonate ([place] Carbonate Tab) 150 mg HS PO 08/20/17 22:00 09/19/17 21:59 08/21/17 20:19 150 MG Losartan Potassium (coZAAR TAB) 50 mg QAM PO 08/22/17 09:00 09/10/17 08:59 08/22/17 07:25 50 MG Melatonin (Melatonex) 9 mg HS PO 08/21/17 22:00 09/11/17 21:59 08/21/17 20:20 9 MG Clonazepam (Klonopin Tab) 0.5 mg NOW ONCE PO 08/21/17 14:00 08/21/17 14:01 DC 08/21/17 14:23 0.5 MG Problem Qualifiers (1) Chronic kidney disease (CKD): Chronic kidney disease stage: stage 1 Qualified Codes: N18.1 - Chronic kidney disease, stage 1
[2017-08-22] MEDS: CHOLESTYRAMINE LIGHT 4 GM PKT PO SCH (13:26)
[2017-08-22] MEDS: ZOLPIDEM TARTRATE 5 MG TAB PO SCH (21:04)
[2017-08-22] MEDS: LITHIUM CARBONATE 300 MG TAB PO SCH (21:05)
[2017-08-22] MEDS: CLONAZEPAM 1 MG TAB PO SCH (21:05)
[2017-08-22] MEDS: MELATONIN 3 MG TAB PO SCH (21:05)
[2017-08-22] MEDS: ATORVASTATIN 10 MG TAB PO SCH (21:05)
[2017-08-22] MEDS: CHLORPROMAZINE HCL 100 MG TAB PO SCH (21:06)
[2017-08-23 06:59] VITALS: BP 143/83; PULSE 83; TEMP 36.3
[2017-08-23] MEDS: VRAYLAR 6 MG PO SCH (08:28)
[2017-08-23] MEDS: LOSARTAN POTASSIUM 50 MG TAB PO SCH (08:30)
[2017-08-23] MEDS: CEROVITE ADV FORMULA TAB PO SCH (08:30)
[2017-08-23] MEDS: TRIHEXYPHENIDYL HCL 2 MG TAB PO SCH (08:30)
[2017-08-23] MEDS: TOCOPHERYL, DL-ALPHA 400 INTER.UNIT CAP PO SCH (08:31)
[2017-08-23] MEDS: PANTOprazole SOD 40 MG TAB PO SCH (08:31)
[2017-08-23] MEDS: OMEGA-3 (PURIFIED FISH OIL) 1 GM CAP PO SCH ×2 (08:31→20:07)
[2017-08-23] MEDS: MONTELUKAST SOD 10 MG TAB PO SCH (08:31)
--- NOTE | 2017-08-23 08:35 | Psychiatric Progress Notes ---
Progress Note Date of Service Aug 23, 2017. Interval History 67-year-old woman readmitted voluntarily after having been discharged 3 day prior to most recent admission. She is sleepless, delusional again. Chief Complaint Unintelligible speech Subjective Patient was seen & assessed interval progress reviewed with Nursing. Staff report she remains disorganized, confused, picking at the air, talking to unseen beings, one of which she said was a man named "Mayra" who "won't me. " She screams and yells at times, and does not respond well to redirection. She was assisted in the shower by multiple staff and had to be redirected for ripping down the shower curtain and jumping in the shower. She also required assistance with eating her meal, as she wanted to play in the food instead. She continues to be fixated on being and childbirth. On my assessment , she is lying in her bed and speech is largely incoherent. At one point she stated "you have blue eyes, white, black eyes..." Attempted to write down questions for her, as she does not have her hearing aid as it broke, and when asked how she was feeling, she said "good," and then started to talk in a sing song voice while making fluttering gestures with her hands. She does not respond to further attempts to write down questions for her, and speech quickly became incoherent again. Review of Systems Patient unable to participate in review of systems due to confusion. Sleep Information Total Hours of Sleep: 4.50 Meal Information Percent of Breakfast Consumed: 50 Percent of Lunch Consumed: 50 Percent of Dinner Consumed: 100 Mental Status Exam During interview pt is: other (Awake, but disoriented, confused, unable to participate in the assessment) Appearance: disheveled Eye contact is: fair Motor behavior is: other (Lying in bed on her back, moving arms and fluttering motions at times) Speech: other (Unintelligible speech) Affect: other (Distracted) Thought process: incoherent Thought content: delusions (believes she is ) Hallucinations: visual (Picking at the air at times) Cognition: other (all spheres severely impaired) Intelligence estimated to be: average Insight: severely impaired Judgement: severely impaired Impression Patient's stefan has been very difficult to treat given the limitations with medications due to her comorbid medical conditions and her boyfriend's unwillingness to consider ECT. She is now appearing more delirious, is grossly confused and unintelligible in her speech. She requires 1-to-1 supervision. Low-dose lithium restarted in attempts to compensate for discontinuation after long treatment history, and will require frequent monitoring if dose is to continue, given kidney function and medical comorbidities. Although it is not an ideal choice due to renal impairment, the patient and her significant other report resistance to other recommended agents for mood stabilization due to reports of unfavorable experiences in the past. ECT has been discussed as the patient has failed several antipsychotic trials and limited options remaining to stabilize mood and target ongoing symptoms, but her significant other is unwilling due to his reports that she had increased suicidality with ECT in the past. She is currently on Vraylar, Thorazine, [place], and Klonopin. Plan (1) Bipolar 1 disorder with mixed features 08/11 - Increase Klonopin back to 1.5 mg HS to target sleep - Will DC lithium at this point due to concerns for her age and renal status - Will increase Risperdal to 1 mg. AM and 7 mg HS - Will DC navane to reduce polypharmacy - Continue prn haldol and increase to q 4 hr prn - Will have nursing attempt to preauth Vraylar to trial - DC Zoloft - Q 15 min checks for safety - Encourage participation in group and individual counseling as tolerated - Coordinate with current providers - had FLP and FBS on 07/23/17. All WNL with the exception of triglycerides of 151 and FBS 129 08/12 - Vraylar trial when Alex can bring it in - Start 1.5 mg daily increasing to 3 mg daily the following day. - Will taper risperdal at the same time 08/13 -Vraylar was actually started at 3mg hs on 08/12 since only 3mg capsules for supply. given s/e profile will move vraylar to earlier in day, will maintain pt at 3mg for time being given long half life of med and long half life of active metabolite tapering risperdal maintained at 1mg am and 3mg hs for now since just lowered by 4mg continue prn haldol doses 08/14 -maintained vraylar 3mg qday -maintained risperdal 1mg am and 3mg hs for now, aim to wean risperdal further as adjusting to vraylar over next days 08/15 - Continue Vraylar 3mg daily - Plan to continue to taper risperdal, however patient appears to be displaying more restlessness today in regard to manic behaviors and requiring redirection from staff and prn Haldol more frequently. - Attempt to determine proximity to baseline with visits from her fiance 08/16 - Vraylar increased to 6mg daily 08/17 - Discontinue risperidone due to inefficacy, and increase Haldol prn to 10mg. - Resume trihexphenidyl at 1mg daily and monitor restlessness as able. Challenging to know if her agitation is due to akathisia, anxiety, psychosis, or stefan, and she is a limited historian. 08/18 - DC haldol due to no response - Start Thorazine 25 mg. q 2 hr prn during the day and 100 mg. scheduled at HS 08/19 - Increase thorazine to 50 q 3 hr prn and 200 mg. HS - Try to maintain good sleep wake cycles - EKG today 08/20 - 150mg of [place] to be added this evening to stabilize mood in interim of response to Vraylar, level in 5 days to monitor for possible toxicity. - Increase Klonopin to 2.5mg qHS to better target sleep. Pt remains on 1-to- 1 observation currently, continue safety precautions for fall risk with medication changes - Encourage sleep as able, with target to keep patient in appropriate sleep- wake cycle. Daytime naps are limited in length. 08/21 - Li restarted yesterday which is not expected to demonstrate a quick benefit but in deference to long standing treatment and increased risk for ongoing mood instability off the medication. given renal impairment, she will need more frequent monitoring but the potential benefit is felt to outweigh the risk given the severity of her underlying mental health d/o. I would suggest maintaining this very low dose and checking a level on the (which I ordered today) before further titration. - sleeping more in last 24h getting high dose Thorazine which, unfortunately , may also be making her delirious. I am uncertain if she has been treated with high dose seroquel previously but that could be considered as an alternative if she struggles to tolerate the Thorazine moving forward. - will increase melatonin to 9mg qhs for additional sleep benefit with minimal risk for worsening delirium. could also consider temporarily maximizing ambien at 10mg but will defer for today 2/2 delirium as sleep is presently improving which will hopefully show antimanic effect. 08/22 - Continue on Thorazine, Vraylar, [place], and Klonopin. [place] level ordered for 08/25. - Will attempt to develop plan to decrease low-dose polypharmacy; Pt's significant other hesitant for other medication changes and is unwilling for ECT at this time - Continue delirium protocol with encouraging appropriate sleep/wake cycles 08/23 -Continue environmental and behavioral interventions for delirium, reviewed her medications and attempting to eliminate unnecessary medications ( cholestyramine discontinued as she was refusing it and not acutely important). -Try to consolidate sleep at night; continue melatonin 9 mg, clonazepam 2.5 mg, zolpidem 5 mg, and chlorpromazine 200 mg at bedtime. -Continue Vraylar 6 mg every morning (started 08/12/2017). -Continue trihexyphenidyl 1 mg every morning for akathisia. -Blacksville 150 mg at bedtime restarted 08/20/2017; level and BMP ordered for . (2) Chronic kidney disease (CKD) 08/11 - DC lithium. Will attempt to stabilize mood with atypicals - Collaborate with Dr. Ovalles as needed 08/20 - Restart [place] at 150mg qHS in attempt to stabilize mood and target manic behaviors. Ideally would be used in the short-term until response to Vraylar is more evident; however, patient is known to have responded well in the past. 08/21 - increase losartan to 50mg for persistently elevated BP's 08/23 -Low-dose lithium resumed 08/20/2017 due to acute worsening of psychiatric symptoms thought possibly due to discontinuation of lithium after being on it for many years. [place]ville trough and BMP ordered for 08/25/2017. (3) Hypothyroidism 08/11 - TSH WNL and not on levothyroxine. - May have had abnl values in the past related to being on lithium (4) Hyperlipemia 08/11 - Continue home dose of atorvastatin - FLP done 07/24 08/23 -Patient intermittently refusing cholestyramine; discontinue for now as also on atorvastatin and trying to limit polypharmacy. Discharge / Aftercare Planning Primary Care Physician: Name: Santos JACKSON [facility] Appointment Notes: [address] [place] [address] Psychiatrist: Name: Dr. Hahn, [facility] Clinic Appointment Notes: [address] [place] [address] Therapist: Name: Katerina Valerio [place] [facility] Appointment Notes: [address] [place] [address] Toe Laster: Name: Zulay Macias [facility] Services: Home Health Services: clinical social work therapist, home health agency Home Health Agency: [facility] Visit Code E&M Code: 58384 Inventory Assets Strengths: Support from partner, good relationship with outpatient provider Needs: Clarity with her medications Risk Factors Assessment : Yes /single/: No Higher / Fall in social status: No Access to guns: No Health problems: Yes Mental Health Diagnoses: Yes Substance use disorders: No Previous attempt: Yes Family history of suicide: Yes (Mother with a history of suicide attempts) Previous psychiatric stay: Yes Hopelessness: No Smoker: No Protective Factors Assessment : No Responsible for young children: No Employed: No Stable relationships: Yes Supportive family: Yes Good rapport with provider: Yes Data Vital Signs Last 24 Hrs: Date Time Temp Pulse Resp B/P (MAP) Pulse Ox O2 Delivery O2 Flow Rate FiO2 08/23/17 06:59 36.3 83 16 143/83 Meds Administered Last 24 Hrs: Meds Administered (Past 24Hrs) Medications (Trade) Dose Ordered Sig/Kelsey Route Start Time Stop Time Status Last Admin Dose Admin Losartan Potassium (coZAAR TAB) 50 mg QAM PO 08/22/17 09:00 09/10/17 08:59 08/22/17 07:25 50 MG Melatonin (Melatonex) 9 mg HS PO 08/21/17 22:00 09/11/17 21:59 08/22/17 21:05 9 MG Clonazepam (Klonopin Tab) 0.5 mg NOW ONCE PO 08/21/17 14:00 08/21/17 14:01 DC 08/21/17 14:23 0.5 MG Problem Qualifiers (1) Chronic kidney disease (CKD): Chronic kidney disease stage: stage 1 Qualified Codes: N18.1 - Chronic kidney disease, stage 1
[2017-08-23] MEDS: CLONAZEPAM 1 MG TAB PO SCH (20:05)
[2017-08-23] MEDS: ZOLPIDEM TARTRATE 5 MG TAB PO SCH (20:05)
[2017-08-23] MEDS: MELATONIN 3 MG TAB PO SCH (20:06)
[2017-08-23] MEDS: ATORVASTATIN 10 MG TAB PO SCH (20:06)
[2017-08-23] MEDS: LITHIUM CARBONATE 300 MG TAB PO SCH (20:06)
[2017-08-23] MEDS: hydrOXYzine HCL 25 MG TAB PO PRN (20:07)
[2017-08-23] MEDS: CHLORPROMAZINE HCL 100 MG TAB PO SCH (20:07)
[2017-08-23 23:56] VITALS: Ht 152.4 cm; Wt 60.0 kg
[2017-08-24] MEDS: hydrOXYzine HCL 25 MG TAB PO PRN (00:56)
[2017-08-24] MEDS: CHLORPROMAZINE HCL 25 MG TAB PO PRN ×3 (00:56→18:20)
[2017-08-24] MEDS: TRAMADOL HCL 50 MG TAB PO PRN (00:58)
[2017-08-24 06:54] VITALS: BP 130/82; PULSE 80; TEMP 36.9
[2017-08-24] MEDS: CEROVITE ADV FORMULA TAB PO SCH (09:16)
[2017-08-24] MEDS: OMEGA-3 (PURIFIED FISH OIL) 1 GM CAP PO SCH ×2 (09:16→20:10)
[2017-08-24] MEDS: TRIHEXYPHENIDYL HCL 2 MG TAB PO SCH (09:16)
[2017-08-24] MEDS: LOSARTAN POTASSIUM 50 MG TAB PO SCH (09:16)
[2017-08-24] MEDS: TOCOPHERYL, DL-ALPHA 400 INTER.UNIT CAP PO SCH (09:16)
[2017-08-24] MEDS: MONTELUKAST SOD 10 MG TAB PO SCH (09:16)
[2017-08-24] MEDS: PANTOprazole SOD 40 MG TAB PO SCH (09:16)
--- NOTE | 2017-08-24 09:51 | Psychiatric Progress Notes ---
Progress Note Date of Service Aug 24, 2017. Interval History 67-year-old woman readmitted voluntarily after having been discharged 3 day prior to most recent admission. She is sleepless, delusional again. Chief Complaint None stated Subjective Patient was seen & assessed interval progress reviewed with Treatment Team. The patient appears to be less restless today, and is seated on the beside. She is rambling and singing more quietly than yesterday, but will stop when asked, to participate in questions. I use paper to write my questions. She says that she is "great" today, but is too distracted to say more about her mood. She is oriented to person, place, year and month. When asked about hallucinations, she initially says no then shakes her head yes and rambles about "2 in the front, 2 in the back, 2 on the side". She is unable to sustain her attention for very long before she becomes focused on the bedside tray, pushing it with her feet mumbling incoherently. She slept for about 5.25 hours last night. She still requires assistance to eat and attend to her personal hygiene as she is still too distracted to even finish chewing/swallowing a bite. Review of Systems Constitutional: No fever, No chills, No sweats, No weight loss, No weakness, No fatigue, No problem reported ENT: + hearing loss Respiratory: No cough, No sputum, No wheezing, No shortness of breath, No dyspnea on exertion, No dyspnea at rest, No hemoptysis, No problem reported Cardiovascular: No chest pain, No orthopnea, No PND, No edema, No claudication , No palpitations, No problem reported Abdomen: No pain, No nausea, No vomiting, No diarrhea, No constipation, No GI bleeding, No problem reported Musculoskeletal: No joint pain, No muscle pain, No swelling, No calf pain, No problem reported Neurologic: No memory loss, No paralysis, No weakness, No numbness/tingling, No vertigo, No balance problems, No problem reported Psychiatric: + problem reported (distracted, racing thoughts, disorganization) Integumentary: No rash, No itch, No new/changing skin lesions, No color change , No bleeding, No problem reported Sleep Information Total Hours of Sleep: 5.25 Meal Information Percent of Breakfast Consumed: 100 Percent of Lunch Consumed: 75 Percent of Dinner Consumed: 100 Mental Status Exam During interview pt is: other (Able to attend for short intervals) Appearance: appropriately dressed, appropriately groomed Eye contact is: fair Motor behavior is: psychomotor agitation Speech: other (Unintelligible speech at times) Affect: flat Mood is: other ("great") Thought process: other (distractable) Thought content: delusions (believes she is ) Hallucinations: other (questioned, but with ambiguous response) Cognition: other (all spheres severely impaired) Intelligence estimated to be: average Insight: severely impaired Judgement: severely impaired Impression Patient today is oriented, but still disorganized, distracted and in need of 1: 1 supervision as she is unsafe without it. We have reviewed her meds, and due to lack of progress with our current regimen, and concern for poly pharmacy, we will make some drastic medication changes today includin. DC Vraylar- Has not shown any improvement since added 2. DC Thorazine- No significant improvement and contributing to anticholinergic load 3. DC Artane- Difficult to tell whether she is restless or whether restlessness is due to stefan, and concern for anticholinergic load 4. DC Ambien- Can contribute to confusion, especially in women 5. DC Vistaril- due to concerns for anticholinergic load 6. Retrial Depakote ER 500 mg. HS titrated to therapeutic level. Has been on this in the past but reports from pt and Alex provide different memories of it. 7. Trial Zyprexa- Will start low with 5 mg due to long half life of Vraylar , to target stefan 8. Continue lithium low dose, re-added due to concerns that withdrawing it after she has been on it for years has contributed to deterioration. Caution to renal status 9. Continue Klonopin 10. Continue Tramadol prn, but have encouraged nursing to use it only sparingly. Plan (1) Bipolar 1 disorder with mixed features 08/11 - Increase Klonopin back to 1.5 mg HS to target sleep - Will DC lithium at this point due to concerns for her age and renal status - Will increase Risperdal to 1 mg. AM and 7 mg HS - Will DC navane to reduce polypharmacy - Continue prn haldol and increase to q 4 hr prn - Will have nursing attempt to preauth Vraylar to trial - DC Zoloft - Q 15 min checks for safety - Encourage participation in group and individual counseling as tolerated - Coordinate with current providers - had FLP and FBS on 07/23/17. All WNL with the exception of triglycerides of 151 and FBS 129 08/12 - Vraylar trial when Alex can bring it in - Start 1.5 mg daily increasing to 3 mg daily the following day. - Will taper risperdal at the same time 08/13 -Vraylar was actually started at 3mg hs on 08/12 since only 3mg capsules for supply. given s/e profile will move vraylar to earlier in day, will maintain pt at 3mg for time being given long half life of med and long half life of active metabolite tapering risperdal maintained at 1mg am and 3mg hs for now since just lowered by 4mg continue prn haldol doses 08/14 -maintained vraylar 3mg qday -maintained risperdal 1mg am and 3mg hs for now, aim to wean risperdal further as adjusting to vraylar over next days 08/15 - Continue Vraylar 3mg daily - Plan to continue to taper risperdal, however patient appears to be displaying more restlessness today in regard to manic behaviors and requiring redirection from staff and prn Haldol more frequently. - Attempt to determine proximity to baseline with visits from her fiance 08/16 - Vraylar increased to 6mg daily 08/17 - Discontinue risperidone due to inefficacy, and increase Haldol prn to 10mg. - Resume trihexphenidyl at 1mg daily and monitor restlessness as able. Challenging to know if her agitation is due to akathisia, anxiety, psychosis, or stefan, and she is a limited historian. 08/18 - DC haldol due to no response - Start Thorazine 25 mg. q 2 hr prn during the day and 100 mg. scheduled at HS 08/19 - Increase thorazine to 50 q 3 hr prn and 200 mg. HS - Try to maintain good sleep wake cycles - EKG today 08/20 - 150mg of [place] to be added this evening to stabilize mood in interim of response to Vraylar, level in 5 days to monitor for possible toxicity. - Increase Klonopin to 2.5mg qHS to better target sleep. Pt remains on 1-to- 1 observation currently, continue safety precautions for fall risk with medication changes - Encourage sleep as able, with target to keep patient in appropriate sleep- wake cycle. Daytime naps are limited in length. 08/21 - Li restarted yesterday which is not expected to demonstrate a quick benefit but in deference to long standing treatment and increased risk for ongoing mood instability off the medication. given renal impairment, she will need more frequent monitoring but the potential benefit is felt to outweigh the risk given the severity of her underlying mental health d/o. I would suggest maintaining this very low dose and checking a level on the (which I ordered today) before further titration. - sleeping more in last 24h getting high dose Thorazine which, unfortunately , may also be making her delirious. I am uncertain if she has been treated with high dose seroquel previously but that could be considered as an alternative if she struggles to tolerate the Thorazine moving forward. - will increase melatonin to 9mg qhs for additional sleep benefit with minimal risk for worsening delirium. could also consider temporarily maximizing ambien at 10mg but will defer for today 2/2 delirium as sleep is presently improving which will hopefully show antimanic effect. 08/22 - Continue on Thorazine, Vraylar, [place], and Klonopin. [place] level ordered for 08/25. - Will attempt to develop plan to decrease low-dose polypharmacy; Pt's significant other hesitant for other medication changes and is unwilling for ECT at this time - Continue delirium protocol with encouraging appropriate sleep/wake cycles 08/23 -Continue environmental and behavioral interventions for delirium, reviewed her medications and attempting to eliminate unnecessary medications ( cholestyramine discontinued as she was refusing it and not acutely important). -Try to consolidate sleep at night; continue melatonin 9 mg, clonazepam 2.5 mg, zolpidem 5 mg, and chlorpromazine 200 mg at bedtime. -Continue Vraylar 6 mg every morning (started 08/12/2017). -Continue trihexyphenidyl 1 mg every morning for akathisia. -[place] 150 mg at bedtime restarted 08/20/2017; level and BMP ordered for . 08/24 - Medication changes as specified in the Impression section (2) Chronic kidney disease (CKD) 08/11 - DC lithium. Will attempt to stabilize mood with atypicals - Collaborate with Dr. Ovalles as needed 08/20 - Restart [place] at 150mg qHS in attempt to stabilize mood and target manic behaviors. Ideally would be used in the short-term until response to Vraylar is more evident; however, patient is known to have responded well in the past. 08/21 - increase losartan to 50mg for persistently elevated BP's 08/23 -Low-dose lithium resumed 08/20/2017 due to acute worsening of psychiatric symptoms thought possibly due to discontinuation of lithium after being on it for many years. [place] trough and BMP ordered for 08/25/2017. (3) Hypothyroidism 08/11 - TSH WNL and not on levothyroxine. - May have had abnl values in the past related to being on lithium (4) Hyperlipemia 08/11 - Continue home dose of atorvastatin - FLP done 07/24 08/23 -Patient intermittently refusing cholestyramine; discontinue for now as also on atorvastatin and trying to limit polypharmacy. Discharge / Aftercare Planning Primary Care Physician: Name: Santos JACKSON [employer] Appointment Notes: [address] [place] [address] Psychiatrist: Name: Dr. 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 Demarcus Ovalles, Coat Check Attendant [facility] [place] Phone Number: [phone] Date of Appointment: Oct 21, 2017 Time of Appointment: 1:15pm Visit Code E&M Code: 82919 Inventory Assets Strengths: Support from partner, good relationship with outpatient provider Needs: Clarity with her medications Risk Factors Assessment : Yes /single/: No Higher / Fall in social status: No Access to guns: No Health problems: Yes Mental Health Diagnoses: Yes Substance use disorders: No Previous attempt: Yes Family history of suicide: Yes (Mother with a history of suicide attempts) Previous psychiatric stay: Yes Hopelessness: No Smoker: No Protective Factors Assessment : No Responsible for young children: No Employed: No Stable relationships: Yes Supportive family: Yes Good rapport with provider: Yes Data Vital Signs Last 24 Hrs: Date Time Temp Pulse Resp B/P (MAP) Pulse Ox O2 Delivery O2 Flow Rate FiO2 08/24/17 06:54 36.9 80 16 130/82 Meds Administered Last 24 Hrs: Current Inpatient Medications Medications (Trade) Dose Ordered Sig/Kelsey Route Start Time Stop Time Status Last Admin Dose Admin Acetaminophen (Tylenol Tab) 650 mg Q4H PRN PO 08/10/17 20:00 09/09/17 19:59 Al Hydroxide/Mg Hydroxide (Maalox Susp) 30 ml Q4H PRN PO 08/10/17 20:00 09/09/17 19:59 Bismuth Subsalicylate (Kaopectate Liqd) 15 ml DAILY PRN PO 08/10/17 20:00 09/09/17 19:59 Magnesium Hydroxide (Milk Of Magnesia Susp) 30 ml DAILY PRN PO 08/10/17 20:00 09/09/17 19:59 08/11/17 12:57 30 ML Sodium Chloride ([place] Nasal [place]) PRN PRN NA 08/10/17 20:00 09/09/17 19:59 Hydroxyzine HCl (Vistaril Tab) 50 mg HSZ PRN PO 08/10/17 20:00 09/09/17 19:59 08/24/17 00:56 50 MG Hydroxyzine HCl (Vistaril Tab) 25 mg Q4H PRN PO 08/10/17 20:00 09/09/17 19:59 08/20/17 19:25 25 MG Atorvastatin Calcium (Lipitor Tab) 10 mg HS PO 08/10/17 22:00 09/09/17 21:59 08/23/17 20:06 10 MG Ergocalciferol (Vitamin D Cap) 50,000 interunit Mo@0900 PO 08/15/17 09:00 09/14/17 08:59 08/22/17 07:25 50,000 INTERUNIT Fish Oil ([place]-3 (Purified Fish Oil) Cap) 1 gm BID PO 08/10/17 22:00 09/09/17 21:59 08/24/17 09:16 1 GM Multivitamins/ Minerals (Multivitamin W/ Minerals Tab) 1 tab QAM PO 08/11/17 09:00 09/10/17 08:59 08/24/17 09:16 1 TAB Montelukast Sodium (Singulair Tab) 10 mg QAM PO 08/11/17 09:00 09/10/17 08:59 08/24/17 09:16 10 MG Pantoprazole Sodium (Protonix Tab) 40 mg QAM PO 08/11/17 09:00 09/10/17 08:59 08/24/17 09:16 40 MG Tramadol HCl (Ultram Tab) 50 mg Q6H PRN PO 08/10/17 20:15 09/09/17 20:14 08/24/17 00:58 50 MG sz-Goble-Sbhtnqkozs Acetate (Vitamin E Cap) 400 interunit DAILY PO 08/11/17 09:00 09/10/17 08:59 08/24/17 09:16 400 INTERUNIT Zolpidem Tartrate (Ambien Tab) 5 mg HSZ PO 08/10/17 22:00 09/09/17 21:59 08/23/17 20:05 5 MG Non-Formulary Medication (Vraylar) 6 mg QAM PO 08/17/17 09:00 09/16/17 08:59 08/23/17 08:28 6 MG Trihexyphenidyl HCl (Artane Tab) 1 mg QAM PO 08/17/17 09:00 09/16/17 08:59 08/24/17 09:16 1 MG Chlorpromazine HCl (Thorazine Tab) 50 mg Q3H PRN PO 08/19/17 09:45 09/17/17 14:14 08/24/17 00:56 50 MG Chlorpromazine HCl (Thorazine Tab) 200 mg HS PO 08/19/17 22:00 09/18/17 21:59 08/23/17 20:07 200 MG Clonazepam (Klonopin Tab) 2.5 mg HS PO 08/20/17 22:00 09/10/17 21:59 08/23/17 20:05 2.5 MG [place] Carbonate ([place] Carbonate Tab) 150 mg HS PO 08/20/17 22:00 09/19/17 21:59 08/23/17 20:06 150 MG Losartan Potassium (coZAAR TAB) 50 mg QAM PO 08/22/17 09:00 09/10/17 08:59 08/24/17 09:16 50 MG Melatonin (Melatonex) 9 mg HS PO 08/21/17 22:00 09/11/17 21:59 08/23/17 20:06 9 MG Lab Results Last 24 Hrs: 08/10/17 12:56 Red Blood Count 3.35, Mean Corpuscular Volume 90.1, Mean Corpuscular Hemoglobin 29.9, Mean Corpuscular Hemoglobin Concent 33.1, Mean Platelet Volume 9.3, Neutrophils (%) (Auto) 75.5, Lymphocytes (%) (Auto) 11.1, Monocytes (%) (Auto) 9.1, Eosinophils (%) (Auto) 3.0, Basophils (%) (Auto) 0.3, Neutrophils # (Auto) 4.71, Lymphocytes # (Auto) 0.69, Monocytes # (Auto) 0.57, Eosinophils # (Auto) 0.19, Basophils # (Auto) 0.02 08/10/17 12:56 Test 08/10/17 12:35 08/10/17 12:56 Urine Color YELLOW Urine Appearance CLEAR (CLEAR) Urine pH 7.0 (4.5-7.5) Urine Specific [place] 1.008 (1.000-1.030) Urine Protein 1+ (NEG) Urine Glucose (UA) NEG (NEG) Urine Ketones NEG (NEG) Urine Occult Blood NEG (NEG) Urine Nitrite NEG (NEG) Urine Bilirubin NEG (NEG) Urine Urobilinogen NEG (NEG) Urine Leukocyte Esterase TRACE (NEG) Urine WBC (Auto) 1-5 /hpf (0-5) Urine RBC (Auto) 0-4 /hpf (0-4) Urine Hyaline Casts (Auto) 0 /lpf (0-5) Urine Epithelial Cells (Auto) 0-5 /lpf (0-5) Urine Bacteria (Auto) NEG (NEG) Urine Opiates Screen NEG (NEG) Urine Methadone, Qualitative NEG (NEG) Urine Barbiturates NEG (NEG) Urine Phencyclidine (PCP) Level NEG (NEG) Ur Amphetamine/Methamphetamine NEG (NEG) MDMA (Ecstasy) Screen NEG (NEG) Urine Benzodiazepines Screen NEG (NEG) Urine Cocaine Metabolite NEG (NEG) Urine Marijuana (THC) NEG (NEG) White Blood Count 6.24 K/uL (4.8-10.8) Red Blood Count 3.35 M/uL (4.2-5.4) Hemoglobin 10.0 g/dL (12.0-16.0) Hematocrit 30.2 % (37-47) Mean Corpuscular Volume 90.1 fL (80-100) Mean Corpuscular Hemoglobin 29.9 pg (25-34) Mean Corpuscular Hemoglobin Concent 33.1 g/dl (32-36) Platelet Count 278 K/uL (130-400) Mean Platelet Volume 9.3 fL (7.4-10.4) Neutrophils (%) (Auto) 75.5 % Lymphocytes (%) (Auto) 11.1 % Monocytes (%) (Auto) 9.1 % Eosinophils (%) (Auto) 3.0 % Basophils (%) (Auto) 0.3 % Neutrophils # (Auto) 4.71 K/uL (1.4-6.5) Lymphocytes # (Auto) 0.69 K/uL (1.2-3.4) Monocytes # (Auto) 0.57 K/uL (0.11-0.59) Eosinophils # (Auto) 0.19 K/uL (0-0.5) Basophils # (Auto) 0.02 K/uL (0-0.2) RDW Standard Deviation 49.4 fL (36.4-46.3) RDW Coefficient of Variation 15.0 % (11.5-14.5) Immature Granulocyte % (Auto) 1.0 % Immature Granulocyte # (Auto) 0.06 K/uL (0.00-0.02) Anion Gap 4.0 mmol/L (3-11) Est Creatinine Clear Calc Drug Dose 33.1 ml/min Estimated GFR () 43.3 Estimated GFR (Non- 37.4 BUN/Creatinine Ratio 15.9 (10-20) Calcium Level 9.5 mg/dl (8.5-10.1) Total Bilirubin 0.3 mg/dl (0.2-1) Aspartate Amino Transf (AST/SGOT) 22 U/L (15-37) Alanine Aminotransferase (ALT/SGPT) 49 U/L (12-78) Alkaline Phosphatase 130 U/L (45-117) Total Protein 7.2 gm/dl (6.4-8.2) Albumin 3.4 gm/dl (3.4-5.0) Globulin 3.8 gm/dl (2.5-4.0) Albumin/Globulin Ratio 0.9 (0.9-2) Thyroid Stimulating Hormone (TSH) 2.020 uIu/ml (0.300-4.500) Salicylates Level < 1.7 mg/dl (2.8-20) Acetaminophen Level < 2 ug/ml (10-30) [place] Level 0.9 mMOL/L (0.6-1.2) Ethyl Alcohol mg/dL < 3.0 mg/dl (0-3) Problem Qualifiers (1) Chronic kidney disease (CKD): Chronic kidney disease stage: stage 1 Qualified Codes: N18.1 - Chronic kidney disease, stage 1
[2017-08-24] MEDS: MAGNESIUM HYDROXIDE SUSP 30 ML UDC PO PRN (10:50)
[2017-08-24] MEDS: OLANZAPINE ZYDIS 5 MG ORALLY DIS. TAB PO PRN (15:45)
[2017-08-24] MEDS: DIVALPROEX 500 MG EXTENDED RELEASE TAB PO SCH (20:05)
[2017-08-24] MEDS: CLONAZEPAM 1 MG TAB PO SCH (20:05)
[2017-08-24] MEDS: ATORVASTATIN 10 MG TAB PO SCH (20:06)
[2017-08-24] MEDS: LITHIUM CARBONATE 300 MG TAB PO SCH (20:07)
[2017-08-24] MEDS: MELATONIN 3 MG TAB PO SCH (20:09)
[2017-08-24] MEDS ORDERED: OLANZAPINE 5 MG TAB PO SCH (22:00)
[2017-08-25] MEDS: TRAMADOL HCL 50 MG TAB PO PRN (03:15)
[2017-08-25] MEDS: OLANZAPINE ZYDIS 5 MG ORALLY DIS. TAB PO PRN ×5 (03:15→18:16)
[2017-08-25 06:36] VITALS: BP_SYST 138; BP_DIAS 77; BP_DIAS 91; PULSE 77; PULSE 82; TEMP 36.5
[2017-08-25 07:35] LABS: CALCIUM 9.5 mg/dl (8.5-10.1); CREATININE 1.77 mg/dl (0.60-1.20); POTASSIUM 4.3 mmol/L (3.5-5.1)
--- NOTE | 2017-08-25 08:23 | Psychiatric Progress Notes ---
Progress Note Date of Service Aug 25, 2017. Interval History 67-year-old woman readmitted voluntarily after having been discharged 3 day prior to most recent admission. She is sleepless, delusional again. Chief Complaint Mumbling incoherently Subjective Patient was seen & assessed interval progress reviewed with Nursing. Staff report she has been constipated, getting prune juice and milk of magnesia, and has had difficulty having bowel movements. She has been confused, nonsensical, wailing at times, and requires staff assistance for all ADLs. She only slept 3 hours last night. She got chlorpromazine prn and it did not appear effective, and then got olanzapine 2.5mg prn x 2, as well as the 5mg HS dose. On my assessment, she is seated in her bed, staff assisting her to eat her breakfast. She is mumbling quietly under her breath unintelligibly, but at one point states this physician's first name, and then starts talking about reading glasses, and a water tower. She does not respond appropriately to questions, even when writing them down. Reviewed her lab work from today, BUN and creatinine are up slightly at 30 and 1.77 respectively, lithium level was 0.3. Review of Systems Patient unable to participate in review of systems, she does not answer questions appropriately. Sleep Information Total Hours of Sleep: 3.00 Meal Information Percent of Breakfast Consumed: 75 Percent of Lunch Consumed: 100 Percent of Dinner Consumed: 95 Mental Status Exam During interview pt is: other (Alert but disoriented, unable to answer most questions appropriately, distractible.) Appearance: appropriately dressed, appropriately groomed Eye contact is: fair Motor behavior is: psychomotor agitation (Mild restlessness) Speech: other (Quiet, mumbling unintelligibly, brief periods of clear speech) Affect: blunted Mood is: other (Patient unable to answer) Thought process: incoherent, other (When speech is intelligible, content is unrelated to the question) Cognition: other (all spheres severely impaired) Intelligence estimated to be: average Insight: severely impaired Judgement: severely impaired Impression Remains delirious, restless, disoriented, disorganized, incoherent at times, requiring staff support for all ADLs. Multiple medication changes made yesterday to limit deliriogenic meds and consolidate antipsychotics, switched from Vraylar and chlorpromazine to olanzapine, and Depakote added. She continues to require inpatient treatment due to inability to care for herself. Plan (1) Bipolar 1 disorder with mixed features 08/11 - Increase Klonopin back to 1.5 mg HS to target sleep - Will DC lithium at this point due to concerns for her age and renal status - Will increase Risperdal to 1 mg. AM and 7 mg HS - Will DC navane to reduce polypharmacy - Continue prn haldol and increase to q 4 hr prn - Will have nursing attempt to preauth Vraylar to trial - DC Zoloft - Q 15 min checks for safety - Encourage participation in group and individual counseling as tolerated - Coordinate with current providers - had FLP and FBS on 07/23/17. All WNL with the exception of triglycerides of 151 and FBS 129 08/12 - Vraylar trial when Alex can bring it in - Start 1.5 mg daily increasing to 3 mg daily the following day. - Will taper risperdal at the same time 08/13 -Vraylar was actually started at 3mg hs on 08/12 since only 3mg capsules for supply. given s/e profile will move vraylar to earlier in day, will maintain pt at 3mg for time being given long half life of med and long half life of active metabolite tapering risperdal maintained at 1mg am and 3mg hs for now since just lowered by 4mg continue prn haldol doses 08/14 -maintained vraylar 3mg qday -maintained risperdal 1mg am and 3mg hs for now, aim to wean risperdal further as adjusting to vraylar over next days 08/15 - Continue Vraylar 3mg daily - Plan to continue to taper risperdal, however patient appears to be displaying more restlessness today in regard to manic behaviors and requiring redirection from staff and prn Haldol more frequently. - Attempt to determine proximity to baseline with visits from her fiance 08/16 - Vraylar increased to 6mg daily 08/17 - Discontinue risperidone due to inefficacy, and increase Haldol prn to 10mg. - Resume trihexphenidyl at 1mg daily and monitor restlessness as able. Challenging to know if her agitation is due to akathisia, anxiety, psychosis, or stefan, and she is a limited historian. 08/18 - DC haldol due to no response - Start Thorazine 25 mg. q 2 hr prn during the day and 100 mg. scheduled at HS 08/19 - Increase thorazine to 50 q 3 hr prn and 200 mg. HS - Try to maintain good sleep wake cycles - EKG today 08/20 - 150mg of [place] to be added this evening to stabilize mood in interim of response to Vraylar, level in 5 days to monitor for possible toxicity. - Increase Klonopin to 2.5mg qHS to better target sleep. Pt remains on 1-to- 1 observation currently, continue safety precautions for fall risk with medication changes - Encourage sleep as able, with target to keep patient in appropriate sleep- wake cycle. Daytime naps are limited in length. 08/21 - Li restarted yesterday which is not expected to demonstrate a quick benefit but in deference to long standing treatment and increased risk for ongoing mood instability off the medication. given renal impairment, she will need more frequent monitoring but the potential benefit is felt to outweigh the risk given the severity of her underlying mental health d/o. I would suggest maintaining this very low dose and checking a level on the (which I ordered today) before further titration. - sleeping more in last 24h getting high dose Thorazine which, unfortunately , may also be making her delirious. I am uncertain if she has been treated with high dose seroquel previously but that could be considered as an alternative if she struggles to tolerate the Thorazine moving forward. - will increase melatonin to 9mg qhs for additional sleep benefit with minimal risk for worsening delirium. could also consider temporarily maximizing ambien at 10mg but will defer for today 2/2 delirium as sleep is presently improving which will hopefully show antimanic effect. 08/22 - Continue on Thorazine, Vraylar, [place], and Klonopin. [place] level ordered for 08/25. - Will attempt to develop plan to decrease low-dose polypharmacy; Pt's significant other hesitant for other medication changes and is unwilling for ECT at this time - Continue delirium protocol with encouraging appropriate sleep/wake cycles 08/23 -Continue environmental and behavioral interventions for delirium, reviewed her medications and attempting to eliminate unnecessary medications ( cholestyramine discontinued as she was refusing it and not acutely important). -Try to consolidate sleep at night; continue melatonin 9 mg, clonazepam 2.5 mg, zolpidem 5 mg, and chlorpromazine 200 mg at bedtime. -Continue Vraylar 6 mg every morning (started 08/12/2017). -Continue trihexyphenidyl 1 mg every morning for akathisia. -[place] 150 mg at bedtime restarted 08/20/2017; level and BMP ordered for . 08/24 1. DC Vraylar- Has not shown any improvement since added 2. DC Thorazine- No significant improvement and contributing to anticholinergic load 3. DC Artane- Difficult to tell whether she is restless or whether restlessness is due to stefan, and concern for anticholinergic load 4. DC Ambien- Can contribute to confusion, especially in women 5. DC Vistaril- due to concerns for anticholinergic load 6. Retrial Depakote ER 500 mg. HS titrated to therapeutic level. Has been on this in the past but reports from pt and Alex provide different memories of it. 7. Trial Zyprexa- Will start low with 5 mg due to long half life of Vraylar , to target stefan 8. Continue lithium low dose, re-added due to concerns that withdrawing it after she has been on it for years has contributed to deterioration. Caution to renal status 9. Continue Klonopin 10. Continue Tramadol prn, but have encouraged nursing to use it only sparingly. 08/25 -Increase olanzapine to 7.5mg HS and prn to 5mg. -[place] trough 0.3; creatinine and BUN up slightly at 30 and 1.77. Continue to encourage adequate hydration, and will recheck lithium trough and BMP in 4 days. -Continue Depakote 500 mg nightly, and check a Depakote trough on 08/29/2017. -Consideration for ECT stefan, psychosis, and delirium do not improve. (2) Chronic kidney disease (CKD) 08/11 - DC lithium. Will attempt to stabilize mood with atypicals - Collaborate with Dr. Ovalles as needed 08/20 - Restart [place] at 150mg qHS in attempt to stabilize mood and target manic behaviors. Ideally would be used in the short-term until response to Vraylar is more evident; however, patient is known to have responded well in the past. 08/21 - increase losartan to 50mg for persistently elevated BP's 08/23 -Low-dose lithium resumed 08/20/2017 due to acute worsening of psychiatric symptoms thought possibly due to discontinuation of lithium after being on it for many years. [place] trough and BMP ordered for 08/25/2017. 08/25 -[place] trough level 0.3, BUN 30, creatinine 1.77. These are up slightly from 08/10/2017, 1 BUN was 23 and creatinine 1.46. We will continue to monitor closely, ensure adequate hydration, and recheck in 4 days. If kidney function worsens, we will need to discontinue the lithium, as previously discussed with nephrology (Dr. Foreman on 07/25/2017). (3) Hypothyroidism 08/11 - TSH WNL and not on levothyroxine. - May have had abnl values in the past related to being on lithium (4) Hyperlipemia 08/11 - Continue home dose of atorvastatin - FLP done 07/24 08/23 -Patient intermittently refusing cholestyramine; discontinue for now as also on atorvastatin and trying to limit polypharmacy. Discharge / Aftercare Planning Primary Care Physician: Name: Santos JACKSON [employer] Appointment Notes: [facility] [place] [address] Psychiatrist: Name: Dr. 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 Demarcus Ovalles, [employer] [facility] Phone Number: [phone] Date of Appointment: Oct 21, 2017 Time of Appointment: 1:15pm Visit Code E&M Code: 07947 Inventory Assets Strengths: Support from partner, good relationship with outpatient provider Needs: Clarity with her medications Risk Factors Assessment : Yes /single/: No Higher / Fall in social status: No Access to guns: No Health problems: Yes Mental Health Diagnoses: Yes Substance use disorders: No Previous attempt: Yes Family history of suicide: Yes (Mother with a history of suicide attempts) Previous psychiatric stay: Yes Hopelessness: No Smoker: No Protective Factors Assessment : No Responsible for young children: No Employed: No Stable relationships: Yes Supportive family: Yes Good rapport with provider: Yes Data Vital Signs Last 24 Hrs: Date Time Temp Pulse Resp B/P (MAP) Pulse Ox O2 Delivery O2 Flow Rate FiO2 08/25/17 06:36 36.5 77 20 138/77 82 138/91 Meds Administered Last 24 Hrs: Meds Administered (Past 24Hrs) Medications (Trade) Dose Ordered Sig/Kelsey Route Start Time Stop Time Status Last Admin Dose Admin Divalproex Sodium (Depakote Extended Rel Tab) 500 mg HS PO 08/24/17 22:00 09/23/17 21:59 08/24/17 20:05 500 MG Olanzapine (Zyprexa Tab) 5 mg HS PO 08/24/17 22:00 09/23/17 21:59 08/24/17 20:10 5 MG Olanzapine (Zyprexa Zydis Od Tab) 2.5 mg Q4 PRN PO 08/24/17 14:45 09/23/17 14:44 08/25/17 03:15 2.5 MG Lab Results Last 24 Hrs: Last 24 Hours Test 08/25/17 06:39 Sodium Level 139 mmol/L Potassium Level 4.3 mmol/L Chloride Level 108 mmol/L Carbon Dioxide Level 28 mmol/L Anion Gap 3.0 mmol/L Blood Urea Nitrogen 30 mg/dl Creatinine 1.77 mg/dl Est Creatinine Clear Calc Drug Dose 25.7 ml/min Estimated GFR () 34.3 Estimated GFR (Non- 29.6 BUN/Creatinine Ratio 16.8 Random Glucose 92 mg/dl Calcium Level 9.5 mg/dl [place] Level 0.3 mMOL/L Problem Qualifiers (1) Chronic kidney disease (CKD): Chronic kidney disease stage: stage 1 Qualified Codes: N18.1 - Chronic kidney disease, stage 1
[2017-08-25] MEDS: TOCOPHERYL, DL-ALPHA 400 INTER.UNIT CAP PO SCH (08:44)
[2017-08-25] MEDS: OMEGA-3 (PURIFIED FISH OIL) 1 GM CAP PO SCH ×2 (08:44→20:56)
[2017-08-25] MEDS: LOSARTAN POTASSIUM 50 MG TAB PO SCH (08:44)
[2017-08-25] MEDS: CEROVITE ADV FORMULA TAB PO SCH (08:44)
[2017-08-25] MEDS: PANTOprazole SOD 40 MG TAB PO SCH (08:45)
[2017-08-25] MEDS: MONTELUKAST SOD 10 MG TAB PO SCH (08:46)
[2017-08-25] MEDS: DIVALPROEX 500 MG EXTENDED RELEASE TAB PO SCH (20:54)
[2017-08-25] MEDS: CLONAZEPAM 1 MG TAB PO SCH (20:55)
[2017-08-25] MEDS: LITHIUM CARBONATE 300 MG TAB PO SCH (20:55)
[2017-08-25] MEDS: ATORVASTATIN 10 MG TAB PO SCH (20:55)
[2017-08-25] MEDS: MELATONIN 3 MG PO SCH (20:55)
[2017-08-25] MEDS: OLANZAPINE 5 MG TAB PO SCH (20:56)
[2017-08-26] MEDS: OLANZAPINE ZYDIS 5 MG ORALLY DIS. TAB PO PRN ×4 (04:57→19:27)
[2017-08-26 06:55] VITALS: BP 170/100; PULSE 91; TEMP 36.8
[2017-08-26] MEDS: LOSARTAN POTASSIUM 50 MG TAB PO SCH (08:06)
[2017-08-26] MEDS: MONTELUKAST SOD 10 MG TAB PO SCH (08:06)
[2017-08-26] MEDS: CEROVITE ADV FORMULA TAB PO SCH (08:06)
[2017-08-26] MEDS: PANTOprazole SOD 40 MG TAB PO SCH (08:06)
[2017-08-26] MEDS: TOCOPHERYL, DL-ALPHA 400 INTER.UNIT CAP PO SCH (08:07)
[2017-08-26] MEDS: OMEGA-3 (PURIFIED FISH OIL) 1 GM CAP PO SCH ×2 (08:07→20:23)
--- NOTE | 2017-08-26 09:53 | Psych Management Progress Note ---
Psychiatry Miscellaneous Date of Service: Aug 26, 2017. Patient seen, MS assessed. Calm in bed, conversing with 1-on-1 at bedside. Chart review given complexity and length of stay. Would recommend repeat CBC and UA, unclear if periods of waxing/waning solely related to psych condition vs some delirium from sleep deprivation. ?med w/u for ECT, boyfriend experiencing caregiver fatigue. Recommend repeat UA and CBC and increase frequency of VS given HTN/tachy, likely to need CXR if ECT referral. Had head CT 01/16, no MRI since 2009 (couldn't tolerate currently). EKG 08/19 re- reviewed. borders on combative with physical care but no restraint/seclusion that would necessitate conversion to involuntary commitment so far. Titrating Zyprexa pending Depakote and lithium levels.
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
[2017-08-26 10:28] LABS: HEMATOCRIT 36.1 % (37-47); HEMOGLOBIN 11.8 g/dL (12.0-16.0); MEAN CELL VOLUME 89.6 fL (80-100); MEAN CORPUSCULAR HEMOGLOBIN 29.3 pg (25-34); MEAN CORPUSCULAR HGB CONC 32.7 g/dl (32-36); MEAN PLATELET VOLUME 9.7 fL (7.4-10.4); PLATELET COUNT 213 K/uL (130-400); RED CELL DISTRIBUTION WIDTH CV 14.7 % (11.5-14.5); RED CELL DISTRIBUTION WIDTH SD 48.5 fL (36.4-46.3)
[2017-08-26] MEDS: MAGNESIUM HYDROXIDE SUSP 30 ML UDC PO PRN (15:08)
[2017-08-26] MEDS: TRAMADOL HCL 50 MG TAB PO PRN (19:37)
[2017-08-26 20:16] VITALS: BP 148/86; PULSE 108
[2017-08-26] MEDS: DIVALPROEX 500 MG EXTENDED RELEASE TAB PO SCH (20:16)
[2017-08-26] MEDS: CLONAZEPAM 1 MG TAB PO SCH (20:20)
[2017-08-26] MEDS: ATORVASTATIN 10 MG TAB PO SCH (20:21)
[2017-08-26] MEDS: LITHIUM CARBONATE 300 MG TAB PO SCH (20:22)
[2017-08-26] MEDS: MELATONIN 3 MG PO SCH (20:24)
[2017-08-26] MEDS: OLANZAPINE 5 MG TAB PO SCH (20:26)
[2017-08-26 21:51] VITALS: BP 148/86; PULSE 108; TEMP 36.8; O2SAT 96
[2017-08-27] MEDS: TRAMADOL HCL 50 MG TAB PO PRN (02:04)
[2017-08-27] MEDS: OLANZAPINE ZYDIS 5 MG ORALLY DIS. TAB PO PRN ×2 (02:05→07:01)
[2017-08-27 06:58] VITALS: BP_SYST 135; BP_SYST 153; BP_DIAS 85; BP_DIAS 91; PULSE 83; PULSE 91; TEMP 36.8
[2017-08-27] MEDS: LOSARTAN POTASSIUM 50 MG TAB PO SCH (08:39)
[2017-08-27] MEDS: CEROVITE ADV FORMULA TAB PO SCH (08:39)
[2017-08-27] MEDS: LORAZEPAM 1 MG TAB PO SCH ×3 (08:39→16:56)
[2017-08-27] MEDS: MONTELUKAST SOD 10 MG TAB PO SCH (08:40)
[2017-08-27] MEDS: TOCOPHERYL, DL-ALPHA 400 INTER.UNIT CAP PO SCH (08:40)
[2017-08-27] MEDS: PANTOprazole SOD 40 MG TAB PO SCH (08:40)
[2017-08-27] MEDS: OMEGA-3 (PURIFIED FISH OIL) 1 GM CAP PO SCH ×2 (08:40→22:00)
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
[2017-08-27 08:51] VITALS: BP 141/86; PULSE 91
[2017-08-27] MEDS: PROPRANOLOL HCL 20 MG TAB PO PRN (08:54)
[2017-08-27] MEDS: PERPHENAZINE 2 MG TAB PO PRN (13:12)
[2017-08-27] MEDS: MELATONIN 3 MG PO SCH (22:00)
[2017-08-27] MEDS ORDERED: OLANZAPINE 5 MG TAB PO SCH (22:00)
[2017-08-27] MEDS ORDERED: CLONAZEPAM 1 MG TAB PO SCH (22:00)
[2017-08-27] MEDS: LORAZEPAM 1 MG TAB PO PRN (22:37)
[2017-08-27] MEDS: ATORVASTATIN 10 MG TAB PO SCH (22:39)
[2017-08-27] MEDS: LITHIUM CARBONATE 300 MG TAB PO SCH (22:39)
[2017-08-27] MEDS: DIVALPROEX 500 MG EXTENDED RELEASE TAB PO SCH (22:40)
[2017-08-27 23:04] VITALS: BP 149/84; PULSE 83
[2017-08-28] MEDS: PERPHENAZINE 2 MG TAB PO PRN ×2 (00:50→08:07)
[2017-08-28] MEDS: PROPRANOLOL HCL 20 MG TAB PO PRN ×2 (00:50→11:44)
[2017-08-28 06:59] VITALS: BP 159/81; PULSE 66; TEMP 36.9
[2017-08-28] MEDS: CEROVITE ADV FORMULA TAB PO SCH (07:45)
[2017-08-28] MEDS: PANTOprazole SOD 40 MG TAB PO SCH (07:45)
[2017-08-28] MEDS: MONTELUKAST SOD 10 MG TAB PO SCH (07:45)
[2017-08-28] MEDS: TOCOPHERYL, DL-ALPHA 400 INTER.UNIT CAP PO SCH (07:45)
[2017-08-28] MEDS: OMEGA-3 (PURIFIED FISH OIL) 1 GM CAP PO SCH ×2 (07:45→21:03)
[2017-08-28] MEDS: LOSARTAN POTASSIUM 50 MG TAB PO SCH (07:45)
[2017-08-28] MEDS: LORAZEPAM 1 MG TAB PO SCH ×3 (07:46→17:29)
--- NOTE | 2017-08-28 09:40 | Psychiatric Progress Notes ---
Progress Note Date of Service Aug 28, 2017. Interval History 67-year-old woman readmitted voluntarily 3 days after last hospitalization. She has been increasingly nonsensical and disorganized despite multiple med trials. Chief Complaint "who are you?". Subjective Patient was seen & assessed interval progress reviewed with Nursing. Patient slept several hours yesterday and was a bit easier to redirect, she is more sensical with speech. She is pleasant with 1-on-1 and is less restless and less tachy with propranolol. Remains on 1-on-1. Did ask staff to kill her this am. Review of Systems patient unable to complete Sleep Information Total Hours of Sleep: 4.75 Meal Information Percent of Breakfast Consumed: 80 Percent of Lunch Consumed: 50 Percent of Dinner Consumed: 50 Mental Status Exam During interview pt is: cooperative Appearance: disheveled Eye contact is: poor Motor behavior is: no abnormal motor movements Speech: other (more coherent) Affect: blunted Mood is: irritable Thought process: looseness of associations Thought content: delusions, other (unable to answer questions related to SI/HI) Hallucinations: other (unclear if responding to internal stimuli) Cognition: language grossly intact Insight: severely impaired Judgement: severely impaired Impression some improvement with prn Ativan------08/27--Ongoing severe psychosis with waxing and waning of orientation, very poor sleep. Repeat CBC improved, no evidence of infection. UA negative for bacteria but now moderate leuk esterase. Hesitant to treat empirically for UTI given allergies, UC ordered. Would need CXR and perhaps repeat head CT for ECT but patient unable to consent for latter anyway at this time. Will implement trial of daytime benzodiazepine for excited catatonia component. Plan (1) Bipolar 1 disorder with mixed features 08/11 - Increase Klonopin back to 1.5 mg HS to target sleep - Will DC lithium at this point due to concerns for her age and renal status - Will increase Risperdal to 1 mg. AM and 7 mg HS - Will DC navane to reduce polypharmacy - Continue prn haldol and increase to q 4 hr prn - Will have nursing attempt to preauth Vraylar to trial - DC Zoloft - Q 15 min checks for safety - Encourage participation in group and individual counseling as tolerated - Coordinate with current providers - had FLP and FBS on 07/23/17. All WNL with the exception of triglycerides of 151 and FBS 129 08/12 - Vraylar trial when Alex can bring it in - Start 1.5 mg daily increasing to 3 mg daily the following day. - Will taper risperdal at the same time 08/13 -Vraylar was actually started at 3mg hs on 08/12 since only 3mg capsules for supply. given s/e profile will move vraylar to earlier in day, will maintain pt at 3mg for time being given long half life of med and long half life of active metabolite tapering risperdal maintained at 1mg am and 3mg hs for now since just lowered by 4mg continue prn haldol doses 08/14 -maintained vraylar 3mg qday -maintained risperdal 1mg am and 3mg hs for now, aim to wean risperdal further as adjusting to vraylar over next days 08/15 - Continue Vraylar 3mg daily - Plan to continue to taper risperdal, however patient appears to be displaying more restlessness today in regard to manic behaviors and requiring redirection from staff and prn Haldol more frequently. - Attempt to determine proximity to baseline with visits from her fiance 08/16 - Vraylar increased to 6mg daily 08/17 - Discontinue risperidone due to inefficacy, and increase Haldol prn to 10mg. - Resume trihexphenidyl at 1mg daily and monitor restlessness as able. Challenging to know if her agitation is due to akathisia, anxiety, psychosis, or stefan, and she is a limited historian. 08/18 - DC haldol due to no response - Start Thorazine 25 mg. q 2 hr prn during the day and 100 mg. scheduled at HS 08/19 - Increase thorazine to 50 q 3 hr prn and 200 mg. HS - Try to maintain good sleep wake cycles - EKG today 08/20 - 150mg of Riverton to be added this evening to stabilize mood in interim of response to Vraylar, level in 5 days to monitor for possible toxicity. - Increase Klonopin to 2.5mg qHS to better target sleep. Pt remains on 1-to- 1 observation currently, continue safety precautions for fall risk with medication changes - Encourage sleep as able, with target to keep patient in appropriate sleep- wake cycle. Daytime naps are limited in length. 08/21 - Li restarted yesterday which is not expected to demonstrate a quick benefit but in deference to long standing treatment and increased risk for ongoing mood instability off the medication. given renal impairment, she will need more frequent monitoring but the potential benefit is felt to outweigh the risk given the severity of her underlying mental health d/o. I would suggest maintaining this very low dose and checking a level on the (which I ordered today) before further titration. - sleeping more in last 24h getting high dose Thorazine which, unfortunately , may also be making her delirious. I am uncertain if she has been treated with high dose seroquel previously but that could be considered as an alternative if she struggles to tolerate the Thorazine moving forward. - will increase melatonin to 9mg qhs for additional sleep benefit with minimal risk for worsening delirium. could also consider temporarily maximizing ambien at 10mg but will defer for today 2/2 delirium as sleep is presently improving which will hopefully show antimanic effect. 08/22 - Continue on Thorazine, Vraylar, Riverton, and Klonopin. Riverton level ordered for 08/25. - Will attempt to develop plan to decrease low-dose polypharmacy; Pt's significant other hesitant for other medication changes and is unwilling for ECT at this time - Continue delirium protocol with encouraging appropriate sleep/wake cycles 08/23 -Continue environmental and behavioral interventions for delirium, reviewed her medications and attempting to eliminate unnecessary medications ( cholestyramine discontinued as she was refusing it and not acutely important). -Try to consolidate sleep at night; continue melatonin 9 mg, clonazepam 2.5 mg, zolpidem 5 mg, and chlorpromazine 200 mg at bedtime. -Continue Vraylar 6 mg every morning (started 08/12/2017). -Continue trihexyphenidyl 1 mg every morning for akathisia. -Riverton 150 mg at bedtime restarted 08/20/2017; level and BMP ordered for . 08/24 1. DC Vraylar- Has not shown any improvement since added 2. DC Thorazine- No significant improvement and contributing to anticholinergic load 3. DC Artane- Difficult to tell whether she is restless or whether restlessness is due to stefan, and concern for anticholinergic load 4. DC Ambien- Can contribute to confusion, especially in women 5. DC Vistaril- due to concerns for anticholinergic load 6. Retrial Depakote ER 500 mg. HS titrated to therapeutic level. Has been on this in the past but reports from pt and Alex provide different memories of it. 7. Trial Zyprexa- Will start low with 5 mg due to long half life of Vraylar , to target stefan 8. Continue lithium low dose, re-added due to concerns that withdrawing it after she has been on it for years has contributed to deterioration. Caution to renal status 9. Continue Klonopin 10. Continue Tramadol prn, but have encouraged nursing to use it only sparingly. 08/25 -Increase olanzapine to 7.5mg HS and prn to 5mg. -Riverton trough 0.3; creatinine and BUN up slightly at 30 and 1.77. Continue to encourage adequate hydration, and will recheck lithium trough and BMP in 4 days. -Continue Depakote 500 mg nightly, and check a Depakote trough on 08/29/2017. -Consideration for ECT stefan, psychosis, and delirium do not improve. 08/26 -Increase HS zyprexa to 10 mg. continue prn's - Continue to encourage hydration - Continue depakote with level 08/29 - Will obtain CBC and UA to rule out UTI, dyscrasia - Continue to consider ECT if no improvement 08/27 --continue Zyprexa titration to 15 mg po qhs, d/c prn doses as no apparently benefit; given longstanding rx with a typical antipsychotic (Navane) and some response to Haldol prn, trial of Trilafon prn agitation. --restlessness appears to be related to catatonia in my opinion rather than akathisia. That said, will offer prn beta brad as trial for comfort, BP has been elevated anyway, would prefer to implement this rather than increasing Cozaar acutely --no clear benefit from hs clonazepam and treatment of choice for catatonia is lorazepam so taper Klonopin in favor of Ativan TID + prn. Remains on 1-on-1 for falls precautions. 08/28 --continue Zyprexa titration to 20 mg po qhs --may use propranolol TID prn --replace HS Klonopin with 2 mg Ativan as appears more effective (2) Chronic kidney disease (CKD) 08/11 - DC lithium. Will attempt to stabilize mood with atypicals - Collaborate with Dr. Ovalles as needed 08/20 - Restart Riverton at 150mg qHS in attempt to stabilize mood and target manic behaviors. Ideally would be used in the short-term until response to Vraylar is more evident; however, patient is known to have responded well in the past. 08/21 - increase losartan to 50mg for persistently elevated BP's 08/23 -Low-dose lithium resumed 08/20/2017 due to acute worsening of psychiatric symptoms thought possibly due to discontinuation of lithium after being on it for many years. Riverton trough and BMP ordered for 08/25/2017. 08/25 -Riverton trough level 0.3, BUN 30, creatinine 1.77. These are up slightly from 08/10/2017, 1 BUN was 23 and creatinine 1.46. We will continue to monitor closely, ensure adequate hydration, and recheck in 4 days. If kidney function worsens, we will need to discontinue the lithium, as previously discussed with nephrology (Dr. Foreman on 07/25/2017). (3) Hypothyroidism 08/11 - TSH WNL and not on levothyroxine. - May have had abnl values in the past related to being on lithium 08/26 - BP elevated. Will increase Cozaar to 75 mg. daily - VS BID (4) Hyperlipemia 08/11 - Continue home dose of atorvastatin - FLP done 07/24 08/23 -Patient intermittently refusing cholestyramine; discontinue for now as also on atorvastatin and trying to limit polypharmacy. Discharge / Aftercare Planning Primary Care Physician: Name: [email or web address] Appointment Notes: [email or web address], [place] [address] Psychiatrist: Name: Dr. Hahn, [facility] Appointment Notes: [address] [place] [address] Therapist: Name: Katerina Valerio [facility] Appointment Notes: [address] [place] [address] Drawer In St[employer] Machine: Name: Zulay Macias [facility] Services: Home Health Services: delinquency prevention social worker, home health agency Home Health Agency: [facility] Home Health Specialist: Name: Dr. Demarcus Ovalles, [place] [facility] [place] Phone Number: [phone] Date of Appointment: Oct 21, 2017 Time of Appointment: 1:15pm Visit Code E&M Code: 48497 Inventory Assets Strengths: Support from partner, good relationship with outpatient provider Needs: Clarity with her medications Risk Factors Assessment : Yes /single/: No Higher / Fall in social status: No Access to guns: No Health problems: Yes Mental Health Diagnoses: Yes Substance use disorders: No Previous attempt: Yes Family history of suicide: Yes Previous psychiatric stay: Yes Hopelessness: No Smoker: No Protective Factors Assessment : No Responsible for young children: No Employed: No Stable relationships: Yes Supportive family: Yes Good rapport with provider: Yes Data Vital Signs Last 24 Hrs: Date Time Temp Pulse Resp B/P (MAP) Pulse Ox O2 Delivery O2 Flow Rate FiO2 08/28/17 06:59 36.9 66 16 159/81 (107) 08/27/17 23:04 83 149/84 (105) Meds Administered Last 24 Hrs: Meds Administered (Past 24Hrs) Medications (Trade) Dose Ordered Sig/Kelsey Route Start Time Stop Time Status Last Admin Dose Admin Clonazepam (Klonopin Tab) 1.5 mg HS PO 08/27/17 22:00 09/10/17 21:59 08/27/17 22:40 1.5 MG Olanzapine (Zyprexa Tab) 15 mg HS PO 08/27/17 22:00 09/23/17 21:59 08/27/17 22:37 15 MG Propranolol HCl (Inderal Tab) 20 mg BID PRN PO 08/27/17 08:30 09/26/17 08:29 08/28/17 00:50 20 MG Lorazepam (Ativan Tab) 1 mg TIDM PO 08/27/17 08:30 09/26/17 08:29 08/28/17 07:46 1 MG Lorazepam (Ativan Tab) 1 mg Q4 PRN PO 08/27/17 08:30 09/26/17 08:29 08/27/17 22:37 1 MG Perphenazine (Trilafon Tab) 4 mg Q6 PRN PO 08/27/17 08:30 09/26/17 08:29 08/28/17 08:07 4 MG Problem Qualifiers (1) Chronic kidney disease (CKD): Chronic kidney disease stage: stage 1 Qualified Codes: N18.1 - Chronic kidney disease, stage 1
[2017-08-28 11:42] VITALS: BP 153/88; PULSE 90
[2017-08-28] MEDS: ATORVASTATIN 10 MG TAB PO SCH (21:02)
[2017-08-28] MEDS: LORAZEPAM 2 MG TAB PO SCH (21:02)
[2017-08-28] MEDS: DIVALPROEX 500 MG EXTENDED RELEASE TAB PO SCH (21:02)
[2017-08-28] MEDS: MELATONIN 3 MG PO SCH (21:03)
[2017-08-28] MEDS: LITHIUM CARBONATE 300 MG TAB PO SCH (21:03)
[2017-08-28] MEDS: OLANZAPINE 20 MG TAB PO SCH (21:03)
[2017-08-28 21:15] VITALS: BP 108/69; PULSE 82
[2017-08-29] MEDS: PROPRANOLOL HCL 20 MG TAB PO PRN ×2 (02:50→13:55)
[2017-08-29] MEDS: PERPHENAZINE 2 MG TAB PO PRN ×2 (02:50→13:55)
[2017-08-29] MEDS: LORAZEPAM 1 MG TAB PO SCH ×3 (07:50→17:13)
[2017-08-29] MEDS: PANTOprazole SOD 40 MG TAB PO SCH (07:50)
[2017-08-29] MEDS: TOCOPHERYL, DL-ALPHA 400 INTER.UNIT CAP PO SCH (07:50)
[2017-08-29] MEDS: OMEGA-3 (PURIFIED FISH OIL) 1 GM CAP PO SCH ×2 (07:50→20:13)
[2017-08-29] MEDS: ERGOCALCIFEROL 50,000 INTER.UNIT CAP PO SCH (07:50)
[2017-08-29] MEDS: LOSARTAN POTASSIUM 50 MG TAB PO SCH (07:50)
[2017-08-29] MEDS: MONTELUKAST SOD 10 MG TAB PO SCH (07:50)
[2017-08-29] MEDS: CEROVITE ADV FORMULA TAB PO SCH (07:50)
[2017-08-29 09:57] VITALS: BP 108/69
[2017-08-29 10:05] LABS: CALCIUM 9.3 mg/dl (8.5-10.1); CREATININE 1.88 mg/dl (0.60-1.20); POTASSIUM 4.3 mmol/L (3.5-5.1)
--- NOTE | 2017-08-29 10:14 | Psychiatric Progress Notes ---
Progress Note Date of Service Aug 29, 2017. Interval History 67-year-old woman readmitted voluntarily 3 days after last hospitalization. She has been increasingly nonsensical and disorganized despite multiple med trials. Chief Complaint "Fine. Fine. Fine. Fine". Subjective Patient was seen & assessed interval progress reviewed with Treatment Team. Staff reports the patient is doing better with a few medication adjustments over the weekend. They state the patient continues to wax and wane, but she is able to have coherent conversations with staff. She remains on 1-to-1 observation due to history of unpredictable behavior and fall risk. Pt was seen today to assess progress since admission. Pt is appearing a bit more organized and is able to communicate with this provider with the assistance of written questions, as staff has found patient responds better to this type of interview strategy currently. Pt states she is "fine" today and shares that she is sleeping better. Pt was asked if she was able to think more clearly, to which she responded "Yes, I'm feeling better." Pt reports ongoing right sided pain due to previous rib fracture and "impacted vertebrae on that side" per patient. Pt denies any other questions for this provider and reports feeling safe on the unit. Review of Systems Psych: denies symptoms other than stated above Constitutional: denied Cardiovascular: denied GI: denied Neurologic: denied Musculoskeletal: reports right sided rib and hip pain Remainder of 10 body systems also reviewed and denied other than noted above. Sleep Information Total Hours of Sleep: 4.25 Meal Information Percent of Breakfast Consumed: 90 Percent of Lunch Consumed: 100 Percent of Dinner Consumed: 100 Mental Status Exam During interview pt is: cooperative (more coherent conversationally) Appearance: disheveled Eye contact is: fair Motor behavior is: psychomotor agitation Speech: other (improving in articulation, more coherent) Affect: euthymic Mood is: other ("fine. fine. fine.") Thought process: looseness of associations, other (becoming more coherent. Better processing observed via written communication) Thought content: delusions, other (unable to answer questions related to SI/HI) Hallucinations: other (unable to answer questions regarding ongoing hallucinations) Cognition: language grossly intact (improving gradually) Insight: severely impaired Judgement: severely impaired 1200 - Patient sustained a fall shortly after our interaction this morning. Pt was reported to have been hitting her one-to-one as she was being assisted with a position change. At that point patient broke away and began running toward the door where she slipped and landed in the right lateral recumbent position. Per staff report, patient did not appear to hit her head and no loss of consciousness was noted. Post-fall exam as follows: Pt responsive to auditory and tactile stimuli directly following fall. Pt did not voice specific areas of pain prior to being assisted into a supported seated position by multiple staff and this provider. While patient was in the seated position, no visible injures to extremities or head were observed. Inspection of arms, legs, and head showed no abrasions, skin tears, acute bruising, or other indications of trauma. Palpation of all major joints performed without verbal or observed complaints of pain or discomfort. Head and neck palpated while in a supported seated position with no indication of tenderness. Patient able to perform unassisted active range of motion in all extremities without reports of pain. Vital signs taken while in seated position. Pt able to stand and walk to bed with assistance from staff and this provider without reports of pain. Pt has been reporting right-sided pain from previous fall and rib fracture, which she does not acutely voice following this event. At baseline, it is difficult to determine patient's mental status and orientation. Pt appeared to be no worse in regard to level of confusion, orientation, and coherency following her fall. Will continue to assess throughout the day. Impression Pt appears much improved with some medication adjustments over the weekend. Continues to wax and wane, but is able to engage in active conversation and is more easily redirectible and appears less agitated. Labs reviewed including worsening of kidney function and subtherapeutic level of Depakote. Low-dose lithium added a week ago for long history of use, current level 0.4. Due to progressive kidney impairment even on low dose lithium, will plan to d/c lithium and increase Depakote to 750mg tonight. Will plan to continue with prns as needed for agitation and behavioral control. Continue with delirium protocol to improve sleep and behavior. Pt requires ongoing inpatient mental health treatment as she continues to be in no condition for discharge to home. Though she improves behaviorally, she remains on 1-to-1 supervision due to fall risk and history of unpredictable behavior. Pt highly likely to decompensation and be at risk of harm to self or director chemistry if discharged prematurely. Plan (1) Bipolar 1 disorder with mixed features 08/11 - Increase Klonopin back to 1.5 mg HS to target sleep - Will DC lithium at this point due to concerns for her age and renal status - Will increase Risperdal to 1 mg. AM and 7 mg HS - Will DC navane to reduce polypharmacy - Continue prn haldol and increase to q 4 hr prn - Will have nursing attempt to preauth Vraylar to trial - DC Zoloft - Q 15 min checks for safety - Encourage participation in group and individual counseling as tolerated - Coordinate with current providers - had FLP and FBS on 07/23/17. All WNL with the exception of triglycerides of 151 and FBS 129 08/12 - Vraylar trial when Alex can bring it in - Start 1.5 mg daily increasing to 3 mg daily the following day. - Will taper risperdal at the same time 08/13 -Vraylar was actually started at 3mg hs on 08/12 since only 3mg capsules for supply. given s/e profile will move vraylar to earlier in day, will maintain pt at 3mg for time being given long half life of med and long half life of active metabolite tapering risperdal maintained at 1mg am and 3mg hs for now since just lowered by 4mg continue prn haldol doses 08/14 -maintained vraylar 3mg qday -maintained risperdal 1mg am and 3mg hs for now, aim to wean risperdal further as adjusting to vraylar over next days 08/15 - Continue Vraylar 3mg daily - Plan to continue to taper risperdal, however patient appears to be displaying more restlessness today in regard to manic behaviors and requiring redirection from staff and prn Haldol more frequently. - Attempt to determine proximity to baseline with visits from her fiance 08/16 - Vraylar increased to 6mg daily 08/17 - Discontinue risperidone due to inefficacy, and increase Haldol prn to 10mg. - Resume trihexphenidyl at 1mg daily and monitor restlessness as able. Challenging to know if her agitation is due to akathisia, anxiety, psychosis, or stefan, and she is a limited historian. 08/18 - DC haldol due to no response - Start Thorazine 25 mg. q 2 hr prn during the day and 100 mg. scheduled at HS 08/19 - Increase thorazine to 50 q 3 hr prn and 200 mg. HS - Try to maintain good sleep wake cycles - EKG today 08/20 - 150mg of Bremond to be added this evening to stabilize mood in interim of response to Vraylar, level in 5 days to monitor for possible toxicity. - Increase Klonopin to 2.5mg qHS to better target sleep. Pt remains on 1-to- 1 observation currently, continue safety precautions for fall risk with medication changes - Encourage sleep as able, with target to keep patient in appropriate sleep- wake cycle. Daytime naps are limited in length. 08/21 - Li restarted yesterday which is not expected to demonstrate a quick benefit but in deference to long standing treatment and increased risk for ongoing mood instability off the medication. given renal impairment, she will need more frequent monitoring but the potential benefit is felt to outweigh the risk given the severity of her underlying mental health d/o. I would suggest maintaining this very low dose and checking a level on the (which I ordered today) before further titration. - sleeping more in last 24h getting high dose Thorazine which, unfortunately , may also be making her delirious. I am uncertain if she has been treated with high dose seroquel previously but that could be considered as an alternative if she struggles to tolerate the Thorazine moving forward. - will increase melatonin to 9mg qhs for additional sleep benefit with minimal risk for worsening delirium. could also consider temporarily maximizing ambien at 10mg but will defer for today 2/2 delirium as sleep is presently improving which will hopefully show antimanic effect. 08/22 - Continue on Thorazine, Vraylar, Bremond, and Klonopin. Bremond level ordered for 08/25. - Will attempt to develop plan to decrease low-dose polypharmacy; Pt's significant other hesitant for other medication changes and is unwilling for ECT at this time - Continue delirium protocol with encouraging appropriate sleep/wake cycles 08/23 -Continue environmental and behavioral interventions for delirium, reviewed her medications and attempting to eliminate unnecessary medications ( cholestyramine discontinued as she was refusing it and not acutely important). -Try to consolidate sleep at night; continue melatonin 9 mg, clonazepam 2.5 mg, zolpidem 5 mg, and chlorpromazine 200 mg at bedtime. -Continue Vraylar 6 mg every morning (started 08/12/2017). -Continue trihexyphenidyl 1 mg every morning for akathisia. -Bremond 150 mg at bedtime restarted 08/20/2017; level and BMP ordered for . 08/24 1. DC Vraylar- Has not shown any improvement since added 2. DC Thorazine- No significant improvement and contributing to anticholinergic load 3. DC Artane- Difficult to tell whether she is restless or whether restlessness is due to stefan, and concern for anticholinergic load 4. DC Ambien- Can contribute to confusion, especially in women 5. DC Vistaril- due to concerns for anticholinergic load 6. Retrial Depakote ER 500 mg. HS titrated to therapeutic level. Has been on this in the past but reports from pt and Alex provide different memories of it. 7. Trial Zyprexa- Will start low with 5 mg due to long half life of Vraylar , to target stefan 8. Continue lithium low dose, re-added due to concerns that withdrawing it after she has been on it for years has contributed to deterioration. Caution to renal status 9. Continue Klonopin 10. Continue Tramadol prn, but have encouraged nursing to use it only sparingly. 08/25 -Increase olanzapine to 7.5mg HS and prn to 5mg. -Bremond trough 0.3; creatinine and BUN up slightly at 30 and 1.77. Continue to encourage adequate hydration, and will recheck lithium trough and BMP in 4 days. -Continue Depakote 500 mg nightly, and check a Depakote trough on 08/29/2017. -Consideration for ECT stefan, psychosis, and delirium do not improve. 08/26 -Increase HS zyprexa to 10 mg. continue prn's - Continue to encourage hydration - Continue depakote with level 08/29 - Will obtain CBC and UA to rule out UTI, dyscrasia - Continue to consider ECT if no improvement 08/27 --continue Zyprexa titration to 15 mg po qhs, d/c prn doses as no apparently benefit; given longstanding rx with a typical antipsychotic (Navane) and some response to Haldol prn, trial of Trilafon prn agitation. --restlessness appears to be related to catatonia in my opinion rather than akathisia. That said, will offer prn beta brad as trial for comfort, BP has been elevated anyway, would prefer to implement this rather than increasing Cozaar acutely --no clear benefit from hs clonazepam and treatment of choice for catatonia is lorazepam so taper Klonopin in favor of Ativan TID + prn. Remains on 1-on-1 for falls precautions. 08/28 --continue Zyprexa titration to 20 mg po qhs --may use propranolol TID prn --replace HS Klonopin with 2 mg Ativan as appears more effective 08/29 - Continue Zyprexa 20mg qHS, propranolol TID prn, Ativan 2mg qHS, and prn Trilafon - Recent labs reviewed: Li level = 0.4; Depakote level = 27 - BUN elevated at 36, creatinine elevated at 1.88. GFR = 27.5. - Due to progressive worsening of kidney function and apparent improvement with addition of other agents, will discontinue Bremond at this time. - Increase Depakote to 750mg tonight (2) Chronic kidney disease (CKD) 08/11 - DC lithium. Will attempt to stabilize mood with atypicals - Collaborate with Dr. Ovalles as needed 08/20 - Restart Bremond at 150mg qHS in attempt to stabilize mood and target manic behaviors. Ideally would be used in the short-term until response to Vraylar is more evident; however, patient is known to have responded well in the past. 08/21 - increase losartan to 50mg for persistently elevated BP's 08/23 -Low-dose lithium resumed 08/20/2017 due to acute worsening of psychiatric symptoms thought possibly due to discontinuation of lithium after being on it for many years. Bremond trough and BMP ordered for 08/25/2017. 08/25 -Bremond trough level 0.3, BUN 30, creatinine 1.77. These are up slightly from 08/10/2017, 1 BUN was 23 and creatinine 1.46. We will continue to monitor closely, ensure adequate hydration, and recheck in 4 days. If kidney function worsens, we will need to discontinue the lithium, as previously discussed with nephrology (Dr. Foreman on 07/25/2017). 08/29 - Labs reviewed: Li level = 0.4. BUN and Cr elevated at 36 and 1.88 respectively. GFR as outpatient progressively decreasing from 43.6 to 38.3. Most recent GFR = 27.5 - Will d/c Bremond in favor of Depakote titration (3) Hypothyroidism 08/11 - TSH WNL and not on levothyroxine. - May have had abnl values in the past related to being on lithium 08/26 - BP elevated. Will increase Cozaar to 75 mg. daily - VS BID (4) Hyperlipemia 08/11 - Continue home dose of atorvastatin - FLP done 07/24 08/23 -Patient intermittently refusing cholestyramine; discontinue for now as also on atorvastatin and trying to limit polypharmacy. Discharge / Aftercare Planning Primary Care Physician: Name: Santos JACKSON [place] Appointment Notes: [facility] [place] [address] Psychiatrist: Name: Dr. Hahn, [facility] Appointment Notes: [address] [place] [id number] Therapist: Name: Katerina Valerio [facility] Appointment Notes: [address] [place] [id number] Etl Architect: Name: Zulay Macias [facility] Services: Home Health Services: community mental health social worker, home health agency Home Health Agency: [facility] Specialist: Name: Dr. Demarcus Oavlles, Director Of Cath Lab [facility] [place] Phone Number: [phone] Date of Appointment: Oct 21, 2017 Time of Appointment: 1:15pm Visit Code E&M Code: 37450 Inventory Assets Strengths: Support from partner, good relationship with outpatient provider Needs: Clarity with her medications Risk Factors Assessment : Yes /single/: No Higher / Fall in social status: No Access to guns: No Health problems: Yes Mental Health Diagnoses: Yes Substance use disorders: No Previous attempt: Yes Family history of suicide: Yes Previous psychiatric stay: Yes Hopelessness: No Smoker: No Protective Factors Assessment : No Responsible for young children: No Employed: No Stable relationships: Yes Supportive family: Yes Good rapport with provider: Yes Data Vital Signs Last 24 Hrs: Date Time Temp Pulse Resp B/P (MAP) Pulse Ox O2 Delivery O2 Flow Rate FiO2 08/29/17 09:57 108/69 (82) Room Air 08/28/17 21:15 82 108/69 (82) 08/28/17 11:42 90 18 153/88 (109) Meds Administered Last 24 Hrs: Meds Administered (Past 24Hrs) Medications (Trade) Dose Ordered Sig/Kelsey Route Start Time Stop Time Status Last Admin Dose Admin Clonazepam (Klonopin Tab) 1.5 mg HS PO 08/27/17 22:00 08/28/17 09:34 DC 08/27/17 22:40 1.5 MG Olanzapine (Zyprexa Tab) 15 mg HS PO 08/27/17 22:00 08/28/17 09:34 DC 08/27/17 22:37 15 MG Olanzapine (Zyprexa Tab) 20 mg HS PO 08/28/17 22:00 09/23/17 21:59 08/28/17 21:03 20 MG Propranolol HCl (Inderal Tab) 20 mg TID PRN PO 08/28/17 09:45 09/26/17 08:29 08/29/17 02:50 20 MG Lorazepam (Ativan Tab) 2 mg HS PO 08/28/17 22:00 09/27/17 21:59 08/28/17 21:02 2 MG Lab Results Last 24 Hrs: Last 24 Hours Test 08/29/17 09:07 Sodium Level 138 mmol/L Potassium Level 4.3 mmol/L Chloride Level 104 mmol/L Carbon Dioxide Level 31 mmol/L Anion Gap 3.0 mmol/L Blood Urea Nitrogen 36 mg/dl Creatinine 1.88 mg/dl Est Creatinine Clear Calc Drug Dose 24.2 ml/min Estimated GFR () 31.9 Estimated GFR (Non- 27.5 BUN/Creatinine Ratio 19.0 Random Glucose 253 mg/dl Calcium Level 9.3 mg/dl Valproic Acid (Depakene) Level 27 mcg/ml Bremond Level 0.4 mMOL/L Problem Qualifiers (1) Chronic kidney disease (CKD): Chronic kidney disease stage: stage 1 Qualified Codes: N18.1 - Chronic kidney disease, stage 1
[2017-08-29 11:55] VITALS: BP 144/74; PULSE 78
--- NOTE | 2017-08-29 12:00 | Psychiatric Progress Notes ---
Psychiatric Progress Note Date of Service Aug 29, 2017. Notes Patient shortly after she fell in the bunch outside her room. She broke away from her one-to-one staff, and started running, then appeared to trip and fell forward. No visible injuries, not endorsing pain. Multiple staff assisted her to the seated position to check vital signs. PA with her completing the exam. She will remain on one-to-one and fall precautions.
[2017-08-29] MEDS: TRAMADOL HCL 50 MG TAB PO PRN ×2 (13:03→20:14)
[2017-08-29] MEDS: ATORVASTATIN 10 MG TAB PO SCH (20:13)
[2017-08-29] MEDS: DIVALPROEX 250 MG EXTENDED REL TAB PO SCH (20:13)
[2017-08-29] MEDS: MELATONIN 3 MG PO SCH (20:13)
[2017-08-29] MEDS: LORAZEPAM 2 MG TAB PO SCH (20:13)
[2017-08-29] MEDS: OLANZAPINE 20 MG TAB PO SCH (20:14)
[2017-08-29 21:05] VITALS: BP 143/83; PULSE 74; TEMP 37
[2017-08-30] MEDS: PROPRANOLOL HCL 20 MG TAB PO PRN (00:21)
[2017-08-30] MEDS: PERPHENAZINE 2 MG TAB PO PRN (00:21)
[2017-08-30 06:34] VITALS: BP_SYST 136; BP_SYST 164; BP_DIAS 74; BP_DIAS 94; PULSE 67; TEMP 37
[2017-08-30] MEDS: LORAZEPAM 1 MG TAB PO SCH ×3 (08:22→17:21)
[2017-08-30] MEDS: LOSARTAN POTASSIUM 50 MG TAB PO SCH (08:24)
[2017-08-30] MEDS: CEROVITE ADV FORMULA TAB PO SCH (08:24)
[2017-08-30] MEDS: TOCOPHERYL, DL-ALPHA 400 INTER.UNIT CAP PO SCH (08:25)
[2017-08-30] MEDS: PANTOprazole SOD 40 MG TAB PO SCH (08:25)
[2017-08-30] MEDS: MONTELUKAST SOD 10 MG TAB PO SCH (08:25)
[2017-08-30] MEDS: OMEGA-3 (PURIFIED FISH OIL) 1 GM CAP PO SCH ×2 (08:25→20:54)
[2017-08-30] MEDS ORDERED: LORAZEPAM 1 MG TAB PO PRN (09:45)
--- NOTE | 2017-08-30 09:45 | Psychiatric Progress Notes ---
Progress Note Date of Service August 30, 2017. Interval History 67-year-old woman readmitted voluntarily 3 days after last hospitalization. She has been increasingly nonsensical and disorganized despite multiple med trials. Chief Complaint None stated Subjective Patient was seen & assessed interval progress reviewed with Treatment Team. The patient sleep 4 hours between evening and shift coordinator, which according to her fiance Alex, is closer to her pattern at home. She normally goes to bed a 7 PM and gets up by 0230. Today she is seated on her bed eating breakfast with the assist of her 1:1 staff. Her voice is of normal volume and rate today. Using written questions she is able to answer that she had a good weekend. She tells me that Alex gave her a "promise ring" which staff say she threw, and so is now locked up in the safe. She asks if she can have it back to cheer her mood, but when reminded that she threw it, she says "that's right". When asked about SI she says "some". When asked if she feels manic or depressed, she says both. At one point during the conversation she closes her eyes and nods off to sleep. She still does not have her hearing aide as she was throwing it too. Staff report that yesterday she wanted to dance, and when staff tried to prevent her due to fall concerns, she pushed the staff member and then fell to the floor. She denies hallucinations. Review of Systems Constitutional: + fatigue ENT: + hearing loss Respiratory: No cough, No sputum, No wheezing, No shortness of breath, No dyspnea on exertion, No dyspnea at rest, No hemoptysis, No problem reported Cardiovascular: No chest pain, No orthopnea, No PND, No edema, No claudication , No palpitations, No problem reported Abdomen: No pain, No nausea, No vomiting, No diarrhea, No constipation, No GI bleeding, No problem reported Musculoskeletal: + problem reported (pains in her rt hip, ribs and her hands) Neurologic: No memory loss, No paralysis, No weakness, No numbness/tingling, No vertigo, No balance problems, No problem reported Psychiatric: + problem reported (reports both stefan and depression) Integumentary: No rash, No itch, No new/changing skin lesions, No color change , No bleeding, No problem reported Sleep Information Total Hours of Sleep: 4.00 Meal Information Percent of Breakfast Consumed: 90 Percent of Lunch Consumed: 80 Percent of Dinner Consumed: 100 Mental Status Exam During interview pt is: cooperative (more coherent conversationally) Appearance: appropriately dressed Eye contact is: good Motor behavior is: other (sedation) Speech: other (improving in articulation, more coherent) Affect: euthymic Mood is: other (both manic and depressed) Thought process: other (becoming more coherent. Better processing observed via written communication) Thought content: delusions, other (unable to answer questions related to SI/HI) Suicidal thought are: present Hallucinations: denies auditory, denies visual Cognition: language grossly intact (improving gradually) Intelligence estimated to be: average Insight: severely impaired Judgement: severely impaired Impression Less agitation and able to participate in conversation better. Is sedated today , and reports feeling unsteady on her feet. Ativan has been helpful, but will cut AM dose due to concerns for fall risk. Will continue 1:1 for now. Continue current medications. Plan (1) Bipolar 1 disorder with mixed features 08/11 - Increase Klonopin back to 1.5 mg HS to target sleep - Will DC lithium at this point due to concerns for her age and renal status - Will increase Risperdal to 1 mg. AM and 7 mg HS - Will DC navane to reduce polypharmacy - Continue prn haldol and increase to q 4 hr prn - Will have nursing attempt to preauth Vraylar to trial - DC Zoloft - Q 15 min checks for safety - Encourage participation in group and individual counseling as tolerated - Coordinate with current providers - had FLP and FBS on 07/23/17. All WNL with the exception of triglycerides of 151 and FBS 129 08/12 - Vraylar trial when Alex can bring it in - Start 1.5 mg daily increasing to 3 mg daily the following day. - Will taper risperdal at the same time 08/13 -Vraylar was actually started at 3mg hs on 08/12 since only 3mg capsules for supply. given s/e profile will move vraylar to earlier in day, will maintain pt at 3mg for time being given long half life of med and long half life of active metabolite tapering risperdal maintained at 1mg am and 3mg hs for now since just lowered by 4mg continue prn haldol doses 08/14 -maintained vraylar 3mg qday -maintained risperdal 1mg am and 3mg hs for now, aim to wean risperdal further as adjusting to vraylar over next days 08/15 - Continue Vraylar 3mg daily - Plan to continue to taper risperdal, however patient appears to be displaying more restlessness today in regard to manic behaviors and requiring redirection from staff and prn Haldol more frequently. - Attempt to determine proximity to baseline with visits from her fiance 08/16 - Vraylar increased to 6mg daily 08/17 - Discontinue risperidone due to inefficacy, and increase Haldol prn to 10mg. - Resume trihexphenidyl at 1mg daily and monitor restlessness as able. Challenging to know if her agitation is due to akathisia, anxiety, psychosis, or stefan, and she is a limited historian. 08/18 - DC haldol due to no response - Start Thorazine 25 mg. q 2 hr prn during the day and 100 mg. scheduled at HS 08/19 - Increase thorazine to 50 q 3 hr prn and 200 mg. HS - Try to maintain good sleep wake cycles - EKG today 08/20 - 150mg of Hooven to be added this evening to stabilize mood in interim of response to Vraylar, level in 5 days to monitor for possible toxicity. - Increase Klonopin to 2.5mg qHS to better target sleep. Pt remains on 1-to- 1 observation currently, continue safety precautions for fall risk with medication changes - Encourage sleep as able, with target to keep patient in appropriate sleep- wake cycle. Daytime naps are limited in length. 08/21 - Li restarted yesterday which is not expected to demonstrate a quick benefit but in deference to long standing treatment and increased risk for ongoing mood instability off the medication. given renal impairment, she will need more frequent monitoring but the potential benefit is felt to outweigh the risk given the severity of her underlying mental health d/o. I would suggest maintaining this very low dose and checking a level on the (which I ordered today) before further titration. - sleeping more in last 24h getting high dose Thorazine which, unfortunately , may also be making her delirious. I am uncertain if she has been treated with high dose seroquel previously but that could be considered as an alternative if she struggles to tolerate the Thorazine moving forward. - will increase melatonin to 9mg qhs for additional sleep benefit with minimal risk for worsening delirium. could also consider temporarily maximizing ambien at 10mg but will defer for today 2/2 delirium as sleep is presently improving which will hopefully show antimanic effect. 08/22 - Continue on Thorazine, Vraylar, Hooven, and Klonopin. Hooven level ordered for 08/25. - Will attempt to develop plan to decrease low-dose polypharmacy; Pt's significant other hesitant for other medication changes and is unwilling for ECT at this time - Continue delirium protocol with encouraging appropriate sleep/wake cycles 08/23 -Continue environmental and behavioral interventions for delirium, reviewed her medications and attempting to eliminate unnecessary medications ( cholestyramine discontinued as she was refusing it and not acutely important). -Try to consolidate sleep at night; continue melatonin 9 mg, clonazepam 2.5 mg, zolpidem 5 mg, and chlorpromazine 200 mg at bedtime. -Continue Vraylar 6 mg every morning (started 08/12/2017). -Continue trihexyphenidyl 1 mg every morning for akathisia. -Hooven 150 mg at bedtime restarted 08/20/2017; level and BMP ordered for . 08/24 1. DC Vraylar- Has not shown any improvement since added 2. DC Thorazine- No significant improvement and contributing to anticholinergic load 3. DC Artane- Difficult to tell whether she is restless or whether restlessness is due to stefan, and concern for anticholinergic load 4. DC Ambien- Can contribute to confusion, especially in women 5. DC Vistaril- due to concerns for anticholinergic load 6. Retrial Depakote ER 500 mg. HS titrated to therapeutic level. Has been on this in the past but reports from pt and Alex provide different memories of it. 7. Trial Zyprexa- Will start low with 5 mg due to long half life of Vraylar , to target stefan 8. Continue lithium low dose, re-added due to concerns that withdrawing it after she has been on it for years has contributed to deterioration. Caution to renal status 9. Continue Klonopin 10. Continue Tramadol prn, but have encouraged nursing to use it only sparingly. 08/25 -Increase olanzapine to 7.5mg HS and prn to 5mg. -Hooven trough 0.3; creatinine and BUN up slightly at 30 and 1.77. Continue to encourage adequate hydration, and will recheck lithium trough and BMP in 4 days. -Continue Depakote 500 mg nightly, and check a Depakote trough on 08/29/2017. -Consideration for ECT stefan, psychosis, and delirium do not improve. 08/26 -Increase HS zyprexa to 10 mg. continue prn's - Continue to encourage hydration - Continue depakote with level 08/29 - Will obtain CBC and UA to rule out UTI, dyscrasia - Continue to consider ECT if no improvement 08/27 --continue Zyprexa titration to 15 mg po qhs, d/c prn doses as no apparently benefit; given longstanding rx with a typical antipsychotic (Navane) and some response to Haldol prn, trial of Trilafon prn agitation. --restlessness appears to be related to catatonia in my opinion rather than akathisia. That said, will offer prn beta brad as trial for comfort, BP has been elevated anyway, would prefer to implement this rather than increasing Cozaar acutely --no clear benefit from hs clonazepam and treatment of choice for catatonia is lorazepam so taper Klonopin in favor of Ativan TID + prn. Remains on 1-on-1 for falls precautions. 08/28 --continue Zyprexa titration to 20 mg po qhs --may use propranolol TID prn --replace HS Klonopin with 2 mg Ativan as appears more effective 08/29 - Continue Zyprexa 20mg qHS, propranolol TID prn, Ativan 2mg qHS, and prn Trilafon - Recent labs reviewed: Li level = 0.4; Depakote level = 27 - BUN elevated at 36, creatinine elevated at 1.88. GFR = 27.5. - Due to progressive worsening of kidney function and apparent improvement with addition of other agents, will discontinue Hooven at this time. - Increase Depakote to 750mg tonight 08/30 - Continue current meds with the exception of stopping AM ativan due to sedation, and concerns for fall risk (2) Chronic kidney disease (CKD) 08/11 - DC lithium. Will attempt to stabilize mood with atypicals - Collaborate with Dr. Ovalles as needed 08/20 - Restart Hooven at 150mg qHS in attempt to stabilize mood and target manic behaviors. Ideally would be used in the short-term until response to Vraylar is more evident; however, patient is known to have responded well in the past. 08/21 - increase losartan to 50mg for persistently elevated BP's 08/23 -Low-dose lithium resumed 08/20/2017 due to acute worsening of psychiatric symptoms thought possibly due to discontinuation of lithium after being on it for many years. Hooven trough and BMP ordered for 08/25/2017. 08/25 -Hooven trough level 0.3, BUN 30, creatinine 1.77. These are up slightly from 08/10/2017, 1 BUN was 23 and creatinine 1.46. We will continue to monitor closely, ensure adequate hydration, and recheck in 4 days. If kidney function worsens, we will need to discontinue the lithium, as previously discussed with nephrology (Dr. Foreman on 07/25/2017). 08/29 - Labs reviewed: Li level = 0.4. BUN and Cr elevated at 36 and 1.88 respectively. GFR as outpatient progressively decreasing from 43.6 to 38.3. Most recent GFR = 27.5 - Will d/c Hooven in favor of Depakote titration (3) Hypothyroidism 08/11 - TSH WNL and not on levothyroxine. - May have had abnl values in the past related to being on lithium 08/26 - BP elevated. Will increase Cozaar to 75 mg. daily - VS BID (4) Hyperlipemia 08/11 - Continue home dose of atorvastatin - FLP done 07/24 08/23 -Patient intermittently refusing cholestyramine; discontinue for now as also on atorvastatin and trying to limit polypharmacy. Discharge / Aftercare Planning Primary Care Physician: Name: Santos JACKSON [facility] Appointment Notes: [id number], [place] [address] Psychiatrist: Name: Dr. Hahn, [facility] Psych Clinic Appointment Notes: [address] [place] [address], [place] [address] Therapist: Name: Katerina Valerio [facility] Appointment Notes: [address] [place] [address], [place] [address] Civil Engineering Teacher: Name: Zulay Macias [facility] Services: Home Health Services: social psychologist, home health agency Home Health Agency: [facility] Specialist: Name: Dr. Demarcus Ovalles, Manager Client [facility] [place] Phone Number: [phone] Date of Appointment: Oct 21, 2017 Time of Appointment: 1:15pm Visit Code E&M Code: 06994 Inventory Assets Strengths: Support from partner, good relationship with outpatient provider Needs: Clarity with her medications Risk Factors Assessment : Yes /single/: No Higher / Fall in social status: No Access to guns: No Health problems: Yes Mental Health Diagnoses: Yes Substance use disorders: No Previous attempt: Yes Family history of suicide: Yes Previous psychiatric stay: Yes Hopelessness: No Smoker: No Protective Factors Assessment : No Responsible for young children: No Employed: No Stable relationships: Yes Supportive family: Yes Good rapport with provider: Yes Data Vital Signs Last 24 Hrs: Date Time Temp Pulse Resp B/P (MAP) Pulse Ox O2 Delivery O2 Flow Rate FiO2 08/30/17 06:34 37.0 67 16 136/74 (94) 164/94 (117) 08/29/17 21:05 37.0 74 16 143/83 (103) 08/29/17 11:55 78 16 144/74 (97) 08/29/17 09:57 108/69 (82) Room Air Meds Administered Last 24 Hrs: Meds Administered (Past 24Hrs) Medications (Trade) Dose Ordered Sig/Kelsey Route Start Time Stop Time Status Last Admin Dose Admin Olanzapine (Zyprexa Tab) 20 mg HS PO 08/28/17 22:00 09/23/17 21:59 08/29/17 20:14 20 MG Propranolol HCl (Inderal Tab) 20 mg TID PRN PO 08/28/17 09:45 09/26/17 08:29 08/30/17 00:21 20 MG Lorazepam (Ativan Tab) 2 mg HS PO 08/28/17 22:00 09/27/17 21:59 08/29/17 20:13 2 MG Divalproex Sodium (Depakote Extended Rel Tab) 750 mg HS PO 08/29/17 22:00 09/23/17 21:59 08/29/17 20:13 750 MG Lab Results Last 24 Hrs: 08/26/17 10:15 08/29/17 09:07 Test 08/10/17 12:35 08/10/17 12:56 08/26/17 00:00 08/26/17 10:15 Urine Opiates Screen NEG (NEG) Urine Methadone, Qualitative NEG (NEG) Urine Barbiturates NEG (NEG) Urine Phencyclidine (PCP) Level NEG (NEG) Ur Amphetamine/Methamphetamine NEG (NEG) MDMA (Ecstasy) Screen NEG (NEG) Urine Benzodiazepines Screen NEG (NEG) Urine Cocaine Metabolite NEG (NEG) Urine Marijuana (THC) NEG (NEG) Immature Granulocyte % (Auto) 1.0 % White Blood Count 6.24 K/uL (4.8-10.8) Red Blood Count 3.35 M/uL (4.2-5.4) 4.03 M/uL (4.2-5.4) Hemoglobin 10.0 g/dL (12.0-16.0) Hematocrit 30.2 % (37-47) Mean Corpuscular Volume 90.1 fL (80-100) 89.6 fL (80-100) Mean Corpuscular Hemoglobin 29.9 pg (25-34) 29.3 pg (25-34) Mean Corpuscular Hemoglobin Concent 33.1 g/dl (32-36) 32.7 g/dl (32-36) Platelet Count 278 K/uL (130-400) Mean Platelet Volume 9.3 fL (7.4-10.4) 9.7 fL (7.4-10.4) Neutrophils (%) (Auto) 75.5 % Lymphocytes (%) (Auto) 11.1 % Monocytes (%) (Auto) 9.1 % Eosinophils (%) (Auto) 3.0 % Basophils (%) (Auto) 0.3 % Neutrophils # (Auto) 4.71 K/uL (1.4-6.5) Lymphocytes # (Auto) 0.69 K/uL (1.2-3.4) Monocytes # (Auto) 0.57 K/uL (0.11-0.59) Eosinophils # (Auto) 0.19 K/uL (0-0.5) Basophils # (Auto) 0.02 K/uL (0-0.2) Immature Granulocyte # (Auto) 0.06 K/uL (0.00-0.02) Total Bilirubin 0.3 mg/dl (0.2-1) Aspartate Amino Transf (AST/SGOT) 22 U/L (15-37) Alanine Aminotransferase (ALT/SGPT) 49 U/L (12-78) Alkaline Phosphatase 130 U/L (45-117) Total Protein 7.2 gm/dl (6.4-8.2) Albumin 3.4 gm/dl (3.4-5.0) Globulin 3.8 gm/dl (2.5-4.0) Albumin/Globulin Ratio 0.9 (0.9-2) Thyroid Stimulating Hormone (TSH) 2.020 uIu/ml (0.300-4.500) Salicylates Level < 1.7 mg/dl (2.8-20) Acetaminophen Level < 2 ug/ml (10-30) Ethyl Alcohol mg/dL < 3.0 mg/dl (0-3) Urine Color YELLOW Urine Appearance CLEAR (CLEAR) Urine pH 6.0 (4.5-7.5) Urine Specific [place] 1.009 (1.000-1.030) Urine Protein 1+ (NEG) Urine Glucose (UA) NEG (NEG) Urine Ketones NEG (NEG) Urine Occult Blood NEG (NEG) Urine Nitrite NEG (NEG) Urine Bilirubin NEG (NEG) Urine Urobilinogen NEG (NEG) Urine Leukocyte Esterase MODERATE (NEG) Urine WBC (Auto) 1-5 /hpf (0-5) Urine RBC (Auto) 0-4 /hpf (0-4) Urine Hyaline Casts (Auto) 0 /lpf (0-5) Urine Epithelial Cells (Auto) 5-10 /lpf (0-5) Urine Bacteria (Auto) NEG (NEG) RDW Standard Deviation 48.5 fL (36.4-46.3) RDW Coefficient of Variation 14.7 % (11.5-14.5) Test 08/29/17 09:07 Anion Gap 3.0 mmol/L (3-11) Est Creatinine Clear Calc Drug Dose 24.2 ml/min Estimated GFR () 31.9 Estimated GFR (Non- 27.5 BUN/Creatinine Ratio 19.0 (10-20) Calcium Level 9.3 mg/dl (8.5-10.1) Valproic Acid (Depakene) Level 27 mcg/ml (50-100) Hooven Level 0.4 mMOL/L (0.6-1.2) Date/Time Source Procedure Growth Status 08/26/17 00:00 Urine , Clean Catch Urine Culture - Final MORE THAN THREE TYPES OF ORGANISMS WA... Complete Problem Qualifiers (1) Chronic kidney disease (CKD): Chronic kidney disease stage: stage 1 Qualified Codes: N18.1 - Chronic kidney disease, stage 1
[2017-08-30] MEDS: LORAZEPAM 1 MG TAB PO PRN (12:45)
[2017-08-30 20:44] VITALS: BP 149/82; PULSE 90; TEMP 37.1; O2SAT 97
[2017-08-30] MEDS: LORAZEPAM 2 MG TAB PO SCH (20:53)
[2017-08-30] MEDS: DIVALPROEX 250 MG EXTENDED REL TAB PO SCH (20:53)
[2017-08-30] MEDS: MELATONIN 3 MG PO SCH (20:54)
[2017-08-30] MEDS: OLANZAPINE 20 MG TAB PO SCH (20:54)
[2017-08-30] MEDS: ATORVASTATIN 10 MG TAB PO SCH (20:54)
[2017-08-30 21:10] VITALS: BP 149/82; PULSE 90; TEMP 37.1; O2SAT 97
[2017-08-31] MEDS: PERPHENAZINE 2 MG TAB PO PRN ×2 (01:21→15:58)
[2017-08-31 06:39] VITALS: BP_SYST 148; BP_SYST 153; BP_DIAS 84; BP_DIAS 88; PULSE 86; PULSE 87; TEMP 36.5
--- NOTE | 2017-08-31 08:14 | Psychiatric Progress Notes ---
Progress Note Date of Service August 31, 2017. Interval History 67-year-old woman readmitted voluntarily for psychotic stefan 3 days after last hospitalization. She has been increasingly nonsensical and disorganized despite multiple med trials, complicated by delirium. Chief Complaint "I don't know, no, no". Subjective Patient was seen & assessed interval progress reviewed with Treatment Team. Staff report she was more organized and calmer during the day, was able to play Yahtzee, but decompensated in the evening, was agitated and combative with staff , unsteady on her feet, and received perphenazine. She only slept 1.25 hours. On my assessment today, she is seated on her bed eating breakfast with the help of her one-to-one staff. She is extremely hard of hearing, so communicated by writing down questions. When asked about mood, she moves her hand horizontally , and then up and down, stating "excitement." When asked if she feels sad or depressed, she nods her head yes, and also reports feeling tired. She admits to suicidal thoughts, stating that she could kill herself by pressing her fingers against her temples, which she demonstrates. She endorses paranoid delusions that people will come and "rape me, kill me, I have no control over everything." She denies hallucinations, but then waves her hands around in front of her, stating that she can "see the son, the son goes everywhere, do you see it, do you think I am hallucinating?" At times she is incoherent, whispering or muttering under her breath, and making odd gestures with her hands. Review of Systems Appetite is good, enjoying her breakfast. Denies pain. Sleep Information Total Hours of Sleep: 1.25 Meal Information Percent of Breakfast Consumed: 90 Percent of Lunch Consumed: 100 Percent of Dinner Consumed: 80 Mental Status Exam During interview pt is: cooperative (more coherent conversationally), other ( Alert but disoriented, unable to answer questions about time in place) Appearance: appropriately dressed Eye contact is: good Motor behavior is: other (Makes odd gestures with her hands, no tremor visible) Speech: other (At times speech is coherent, and at other times she mumbles incoherently or whispers and is in audible.) Affect: labile (Switches rapidly from euthymic, to fearful, to tearful) Mood is: other ("I don't know, no, no." Endorses being both excited and depressed.) Thought process: tangential, looseness of associations, incoherent Thought content: paranoid, delusions Suicidal thought are: present Hallucinations: other (Initially denies hallucinations, then talks about seeing things, and appears to be responding to internal stimuli) Cognition: other (All spheres impaired) Intelligence estimated to be: average Insight: severely impaired Judgement: severely impaired Impression Agitated delirium is improving, better able to participate in interactions. Remains disoriented and incoherent at times, unsteady on her feet. We are attempting to adjust medications in a way to target her manic and psychotic symptoms, while limiting exacerbation of her delirium, which has been challenging. Also trying to minimize medications that could increase her fall risk. She continues to require 1:1 observation for her own safety due to falls and disorganized behavior, and inpatient treatment remains medically necessary due to severity of her symptoms and inability to provide for her own basic needs without the care and assistance of others. Plan (1) Bipolar 1 disorder with mixed features 08/11 - Increase Klonopin back to 1.5 mg HS to target sleep - Will DC lithium at this point due to concerns for her age and renal status - Will increase Risperdal to 1 mg. AM and 7 mg HS - Will DC navane to reduce polypharmacy - Continue prn haldol and increase to q 4 hr prn - Will have nursing attempt to preauth Vraylar to trial - DC Zoloft - Q 15 min checks for safety - Encourage participation in group and individual counseling as tolerated - Coordinate with current providers - had FLP and FBS on 07/23/17. All WNL with the exception of triglycerides of 151 and FBS 129 08/12 - Vraylar trial when Alex can bring it in - Start 1.5 mg daily increasing to 3 mg daily the following day. - Will taper risperdal at the same time 08/13 -Vraylar was actually started at 3mg hs on 08/12 since only 3mg capsules for supply. given s/e profile will move vraylar to earlier in day, will maintain pt at 3mg for time being given long half life of med and long half life of active metabolite tapering risperdal maintained at 1mg am and 3mg hs for now since just lowered by 4mg continue prn haldol doses 08/14 -maintained vraylar 3mg qday -maintained risperdal 1mg am and 3mg hs for now, aim to wean risperdal further as adjusting to vraylar over next days 08/15 - Continue Vraylar 3mg daily - Plan to continue to taper risperdal, however patient appears to be displaying more restlessness today in regard to manic behaviors and requiring redirection from staff and prn Haldol more frequently. - Attempt to determine proximity to baseline with visits from her fiance 08/16 - Vraylar increased to 6mg daily 08/17 - Discontinue risperidone due to inefficacy, and increase Haldol prn to 10mg. - Resume trihexphenidyl at 1mg daily and monitor restlessness as able. Challenging to know if her agitation is due to akathisia, anxiety, psychosis, or stefan, and she is a limited historian. 08/18 - DC haldol due to no response - Start Thorazine 25 mg. q 2 hr prn during the day and 100 mg. scheduled at HS 08/19 - Increase thorazine to 50 q 3 hr prn and 200 mg. HS - Try to maintain good sleep wake cycles - EKG today 08/20 - 150mg of Ursine to be added this evening to stabilize mood in interim of response to Vraylar, level in 5 days to monitor for possible toxicity. - Increase Klonopin to 2.5mg qHS to better target sleep. Pt remains on 1-to- 1 observation currently, continue safety precautions for fall risk with medication changes - Encourage sleep as able, with target to keep patient in appropriate sleep- wake cycle. Daytime naps are limited in length. 08/21 - Li restarted yesterday which is not expected to demonstrate a quick benefit but in deference to long standing treatment and increased risk for ongoing mood instability off the medication. given renal impairment, she will need more frequent monitoring but the potential benefit is felt to outweigh the risk given the severity of her underlying mental health d/o. I would suggest maintaining this very low dose and checking a level on the (which I ordered today) before further titration. - sleeping more in last 24h getting high dose Thorazine which, unfortunately , may also be making her delirious. I am uncertain if she has been treated with high dose seroquel previously but that could be considered as an alternative if she struggles to tolerate the Thorazine moving forward. - will increase melatonin to 9mg qhs for additional sleep benefit with minimal risk for worsening delirium. could also consider temporarily maximizing ambien at 10mg but will defer for today 2/2 delirium as sleep is presently improving which will hopefully show antimanic effect. 08/22 - Continue on Thorazine, Vraylar, Ursine, and Klonopin. Ursine level ordered for 08/25. - Will attempt to develop plan to decrease low-dose polypharmacy; Pt's significant other hesitant for other medication changes and is unwilling for ECT at this time - Continue delirium protocol with encouraging appropriate sleep/wake cycles 08/23 -Continue environmental and behavioral interventions for delirium, reviewed her medications and attempting to eliminate unnecessary medications ( cholestyramine discontinued as she was refusing it and not acutely important). -Try to consolidate sleep at night; continue melatonin 9 mg, clonazepam 2.5 mg, zolpidem 5 mg, and chlorpromazine 200 mg at bedtime. -Continue Vraylar 6 mg every morning (started 08/12/2017). -Continue trihexyphenidyl 1 mg every morning for akathisia. -Ursine 150 mg at bedtime restarted 08/20/2017; level and BMP ordered for . 08/24 1. DC Vraylar- Has not shown any improvement since added 2. DC Thorazine- No significant improvement and contributing to anticholinergic load 3. DC Artane- Difficult to tell whether she is restless or whether restlessness is due to stefan, and concern for anticholinergic load 4. DC Ambien- Can contribute to confusion, especially in women 5. DC Vistaril- due to concerns for anticholinergic load 6. Retrial Depakote ER 500 mg. HS titrated to therapeutic level. Has been on this in the past but reports from pt and Alex provide different memories of it. 7. Trial Zyprexa- Will start low with 5 mg due to long half life of Vraylar , to target stefan 8. Continue lithium low dose, re-added due to concerns that withdrawing it after she has been on it for years has contributed to deterioration. Caution to renal status 9. Continue Klonopin 10. Continue Tramadol prn, but have encouraged nursing to use it only sparingly. 08/25 -Increase olanzapine to 7.5mg HS and prn to 5mg. -Ursine trough 0.3; creatinine and BUN up slightly at 30 and 1.77. Continue to encourage adequate hydration, and will recheck lithium trough and BMP in 4 days. -Continue Depakote 500 mg nightly, and check a Depakote trough on 08/29/2017. -Consideration for ECT stefan, psychosis, and delirium do not improve. 08/26 -Increase HS zyprexa to 10 mg. continue prn's - Continue to encourage hydration - Continue depakote with level 08/29 - Will obtain CBC and UA to rule out UTI, dyscrasia - Continue to consider ECT if no improvement 08/27 --continue Zyprexa titration to 15 mg po qhs, d/c prn doses as no apparently benefit; given longstanding rx with a typical antipsychotic (Navane) and some response to Haldol prn, trial of Trilafon prn agitation. --restlessness appears to be related to catatonia in my opinion rather than akathisia. That said, will offer prn beta brad as trial for comfort, BP has been elevated anyway, would prefer to implement this rather than increasing Cozaar acutely --no clear benefit from hs clonazepam and treatment of choice for catatonia is lorazepam so taper Klonopin in favor of Ativan TID + prn. Remains on 1-on-1 for falls precautions. 08/28 --continue Zyprexa titration to 20 mg po qhs --may use propranolol TID prn --replace HS Klonopin with 2 mg Ativan as appears more effective 08/29 - Continue Zyprexa 20mg qHS, propranolol TID prn, Ativan 2mg qHS, and prn Trilafon - Recent labs reviewed: Li level = 0.4; Depakote level = 27 - BUN elevated at 36, creatinine elevated at 1.88. GFR = 27.5. - Due to progressive worsening of kidney function and apparent improvement with addition of other agents, will discontinue Ursine at this time. - Increase Depakote to 750mg tonight. Depakote trough level ordered for 2017. 08/30 - Continue current meds with the exception of stopping AM ativan due to sedation, and concerns for fall risk 08/31 -Continue current medications, including Lorazepam 1 mg q. 1200 and 1700 hrs. and 2 mg at bedtime, Depakote 750 mg nightly, olanzapine 20 mg nightly, propanolol 20 mg 3 times daily as needed for restlessness, perphenazine 4 mg as needed for agitation, and melatonin 9 mg at bedtime. -Continue one-to-one monitoring. (2) Chronic kidney disease (CKD) 08/11 - DC lithium. Will attempt to stabilize mood with atypicals - Collaborate with Dr. Ovalles as needed 08/20 - Restart Ursine at 150mg qHS in attempt to stabilize mood and target manic behaviors. Ideally would be used in the short-term until response to Vraylar is more evident; however, patient is known to have responded well in the past. 08/21 - increase losartan to 50mg for persistently elevated BP's 08/23 -Low-dose lithium resumed 08/20/2017 due to acute worsening of psychiatric symptoms thought possibly due to discontinuation of lithium after being on it for many years. Ursine trough and BMP ordered for 08/25/2017. 08/25 -Ursine trough level 0.3, BUN 30, creatinine 1.77. These are up slightly from 08/10/2017, 1 BUN was 23 and creatinine 1.46. We will continue to monitor closely, ensure adequate hydration, and recheck in 4 days. If kidney function worsens, we will need to discontinue the lithium, as previously discussed with nephrology (Dr. Foreman on 07/25/2017). 08/29 - Labs reviewed: Li level = 0.4. BUN and Cr elevated at 36 and 1.88 respectively. GFR as outpatient progressively decreasing from 43.6 to 38.3. Most recent GFR = 27.5 - Will d/c Ursine in favor of Depakote titration 08/31 -Will recheck BMP on 09/04/2017 to monitor kidney function. Continue to encourage fluids. (3) Hypothyroidism 08/11 - TSH WNL and not on levothyroxine. - May have had abnl values in the past related to being on lithium 08/26 - BP elevated. Will increase Cozaar to 75 mg. daily - VS BID (4) Hyperlipemia 08/11 - Continue home dose of atorvastatin - FLP done 07/24 08/23 -Patient intermittently refusing cholestyramine; discontinue for now as also on atorvastatin and trying to limit polypharmacy. (5) Hypertension 08/31 -has been persistently hypertensive for the past several days, and intermittently hypertensive throughout her stay. No known history of hypertension, and EKG on 08/19/2017 was normal sinus rhythm. Consider need for hospitalist assistance if hypertension persists. Discharge / Aftercare Planning Primary Care Physician: Name: Santos [facility] [employer] [facility] [address] [facility] [place] [address] Psychiatrist: Name: Dr. Hahn, [facility] Psych Clinic Appointment Notes: [address] [place] [id number] Therapist: Name: Katerina Valerio Greyson [facility] Appointment Notes: [address] [place] [id number] Scenario Writer: Name: Zulay Macias [facility]: Home Health Services: social work nurse, home health agency Home Health Agency: [facility] Home Health Specialist: Name: Dr. Demarcus Ovalles, [employer] [facility] Phone Number: [phone] Date of Appointment: Oct 21, 2017 Time of Appointment: 1:15pm Visit Code E&M Code: 42095 Inventory Assets Strengths: Support from partner, good relationship with outpatient provider Needs: Clarity with her medications Risk Factors Assessment : Yes /single/: No Higher / Fall in social status: No Access to guns: No Health problems: Yes Mental Health Diagnoses: Yes Substance use disorders: No Previous attempt: Yes Family history of suicide: Yes Previous psychiatric stay: Yes Hopelessness: No Smoker: No Protective Factors Assessment : No Responsible for young children: No Employed: No Stable relationships: Yes Supportive family: Yes Good rapport with provider: Yes Data Vital Signs Last 24 Hrs: Date Time Temp Pulse Resp B/P (MAP) Pulse Ox O2 Delivery O2 Flow Rate FiO2 08/31/17 06:39 36.5 86 18 153/88 (109) 87 148/84 (105) 08/30/17 21:10 37.1 90 20 149/82 (104) 97 Room Air 08/30/17 20:44 37.1 90 20 149/82 (104) 97 Room Air Meds Administered Last 24 Hrs: Meds Administered (Past 24Hrs) Medications (Trade) Dose Ordered Sig/Kelsey Route Start Time Stop Time Status Last Admin Dose Admin Divalproex Sodium (Depakote Extended Rel Tab) 750 mg HS PO 08/29/17 22:00 09/23/17 21:59 08/30/17 20:53 750 MG Lorazepam (Ativan Tab) 1 mg DAILY@1200,1700 PO 08/30/17 17:00 09/29/17 16:59 08/30/17 17:21 1 MG Problem Qualifiers (1) Chronic kidney disease (CKD): Chronic kidney disease stage: stage 1 Qualified Codes: N18.1 - Chronic kidney disease, stage 1
[2017-08-31] MEDS: CEROVITE ADV FORMULA TAB PO SCH (08:49)
[2017-08-31] MEDS: OMEGA-3 (PURIFIED FISH OIL) 1 GM CAP PO SCH ×2 (08:49→20:41)
[2017-08-31] MEDS: LOSARTAN POTASSIUM 50 MG TAB PO SCH (08:49)
[2017-08-31] MEDS: PANTOprazole SOD 40 MG TAB PO SCH (08:49)
[2017-08-31] MEDS: TOCOPHERYL, DL-ALPHA 400 INTER.UNIT CAP PO SCH (08:50)
[2017-08-31] MEDS: MONTELUKAST SOD 10 MG TAB PO SCH (08:50)
[2017-08-31 10:16] VITALS: BP 124/75; PULSE 93; TEMP 37.1
[2017-08-31] MEDS: LORAZEPAM 1 MG TAB PO SCH ×2 (12:07→15:56)
[2017-08-31] MEDS: TRAMADOL HCL 50 MG TAB PO PRN (16:11)
[2017-08-31] MEDS: LORAZEPAM 1 MG TAB PO PRN (19:06)
[2017-08-31] MEDS: LORAZEPAM 2 MG TAB PO SCH (20:39)
[2017-08-31] MEDS: ATORVASTATIN 10 MG TAB PO SCH (20:40)
[2017-08-31] MEDS: DIVALPROEX 250 MG EXTENDED REL TAB PO SCH (20:40)
[2017-08-31] MEDS: OLANZAPINE 20 MG TAB PO SCH (20:41)
[2017-08-31] MEDS: MELATONIN 3 MG PO SCH (20:42)
[2017-08-31 21:47] VITALS: BP 160/64; PULSE 91; TEMP 37; O2SAT 97
[2017-09-01 06:45] VITALS: BP 156/80; PULSE 91; TEMP 36.9; O2SAT 97
[2017-09-01] MEDS: CEROVITE ADV FORMULA TAB PO SCH (07:45)
[2017-09-01] MEDS: LOSARTAN POTASSIUM 50 MG TAB PO SCH (07:45)
[2017-09-01] MEDS: OMEGA-3 (PURIFIED FISH OIL) 1 GM CAP PO SCH ×2 (07:46→21:21)
[2017-09-01] MEDS: TOCOPHERYL, DL-ALPHA 400 INTER.UNIT CAP PO SCH (07:46)
[2017-09-01] MEDS: MONTELUKAST SOD 10 MG TAB PO SCH (07:46)
[2017-09-01] MEDS: PANTOprazole SOD 40 MG TAB PO SCH (07:46)
[2017-09-01] MEDS: LORAZEPAM 1 MG TAB PO PRN (07:55)
[2017-09-01] MEDS ORDERED: LOSARTAN POTASSIUM 25 MG TAB PO SCH (09:00)
[2017-09-01 10:25] VITALS: BP 119/75; PULSE 96
--- NOTE | 2017-09-01 10:27 | Psychiatric Progress Notes ---
Progress Note Date of Service September 01, 2017. Interval History 67-year-old woman readmitted voluntarily for psychotic stefan 3 days after last hospitalization. She has been increasingly nonsensical and disorganized despite multiple med trials, complicated by delirium. Chief Complaint None stated Subjective Patient was seen & assessed interval progress reviewed with Treatment Team. Nursing reports that Brenda was more paranoid last evening and received prns of trilafon and ativan. She [facility], for 6 hours. Upon awakening today she was initially agitated, but then calmed down. She continues to require 1:1 observation due to impulsivity, and fall risk. At the time I see her she is seated on her bed eating breaksfast with some assistance. As usual, she has mixed many of her breakfast foods together on her plate. She is easily distracted and requires reminders to chew and swallow the food in her mouth. She is using a hearing amplifier today as her hearing aide is still at home being repaired. She answers all orientation questions correctly. She says that she is not thinking of ending her life, but wants others to do it for her. When asked why she was screaming in the dayroom yesterday she replies that she was unsafe and peole were going to get her. She did not think she was safe and then says "I scream a lot in the dayroom". She is easily distracted during the conversation, occasionally digresses to mumbling things that I cannot understand. Nursing also indicates that she is having more times where she makes appropriate requests and has appropriate conversations. Review of Systems Constitutional: No fever, No chills, No sweats, No weight loss, No weakness, No fatigue, No problem reported ENT: + hearing loss Respiratory: No cough, No sputum, No wheezing, No shortness of breath, No dyspnea on exertion, No dyspnea at rest, No hemoptysis, No problem reported Cardiovascular: No chest pain, No orthopnea, No PND, No edema, No claudication , No palpitations, No problem reported Abdomen: No pain, No nausea, No vomiting, No diarrhea, No constipation, No GI bleeding, No problem reported Musculoskeletal: No joint pain, No muscle pain, No swelling, No calf pain, No problem reported Neurologic: No memory loss, No paralysis, No weakness, No numbness/tingling, No vertigo, No balance problems, No problem reported Psychiatric: + depression symptoms (wanting someone to kill her) Integumentary: No rash, No itch, No new/changing skin lesions, No color change , No bleeding, No problem reported Sleep Information Total Hours of Sleep: 6.00 Meal Information Percent of Breakfast Consumed: 50 Percent of Lunch Consumed: 100 Percent of Dinner Consumed: 100 Mental Status Exam During interview pt is: cooperative (more coherent conversationally) Appearance: appropriately dressed Eye contact is: good Motor behavior is: other (Falls back on her bed as if having trouble staying seated) Speech: other (At times speech is coherent, and at other times she mumbles incoherently or whispers and is in audible.) Affect: blunted Mood is: depressed Thought process: tangential, looseness of associations Thought content: paranoid, delusions Suicidal thought are: present Hallucinations: other (Initially denies hallucinations, then talks about seeing things, and appears to be responding to internal stimuli) Cognition: other (All spheres impaired) Intelligence estimated to be: average Insight: severely impaired Judgement: severely impaired Impression Continues with a variable course, at times yelling agitated, but having more time of coherents conversation. Still requires 1:1 due to her impulsivity and fall risk. In the past the patient has had severe swings requiring long hospitalizations, including at the [facility]. Will continue her meds today as she may need some time on her current regimen. Will continue 1:1 as well. Plan (1) Bipolar 1 disorder with mixed features 08/11 - Increase Klonopin back to 1.5 mg HS to target sleep - Will DC lithium at this point due to concerns for her age and renal status - Will increase Risperdal to 1 mg. AM and 7 mg HS - Will DC navane to reduce polypharmacy - Continue prn haldol and increase to q 4 hr prn - Will have nursing attempt to preauth Vraylar to trial - DC Zoloft - Q 15 min checks for safety - Encourage participation in group and individual counseling as tolerated - Coordinate with current providers - had FLP and FBS on 07/23/17. All WNL with the exception of triglycerides of 151 and FBS 129 08/12 - Vraylar trial when Alex can bring it in - Start 1.5 mg daily increasing to 3 mg daily the following day. - Will taper risperdal at the same time 08/13 -Vraylar was actually started at 3mg hs on 08/12 since only 3mg capsules for supply. given s/e profile will move vraylar to earlier in day, will maintain pt at 3mg for time being given long half life of med and long half life of active metabolite tapering risperdal maintained at 1mg am and 3mg hs for now since just lowered by 4mg continue prn haldol doses 08/14 -maintained vraylar 3mg qday -maintained risperdal 1mg am and 3mg hs for now, aim to wean risperdal further as adjusting to vraylar over next days 08/15 - Continue Vraylar 3mg daily - Plan to continue to taper risperdal, however patient appears to be displaying more restlessness today in regard to manic behaviors and requiring redirection from staff and prn Haldol more frequently. - Attempt to determine proximity to baseline with visits from her fiance 08/16 - Vraylar increased to 6mg daily 08/17 - Discontinue risperidone due to inefficacy, and increase Haldol prn to 10mg. - Resume trihexphenidyl at 1mg daily and monitor restlessness as able. Challenging to know if her agitation is due to akathisia, anxiety, psychosis, or stefan, and she is a limited historian. 08/18 - DC haldol due to no response - Start Thorazine 25 mg. q 2 hr prn during the day and 100 mg. scheduled at HS 08/19 - Increase thorazine to 50 q 3 hr prn and 200 mg. HS - Try to maintain good sleep wake cycles - EKG today 08/20 - 150mg of [place] to be added this evening to stabilize mood in interim of response to Vraylar, level in 5 days to monitor for possible toxicity. - Increase Klonopin to 2.5mg qHS to better target sleep. Pt remains on 1-to- 1 observation currently, continue safety precautions for fall risk with medication changes - Encourage sleep as able, with target to keep patient in appropriate sleep- wake cycle. Daytime naps are limited in length. 08/21 - Li restarted yesterday which is not expected to demonstrate a quick benefit but in deference to long standing treatment and increased risk for ongoing mood instability off the medication. given renal impairment, she will need more frequent monitoring but the potential benefit is felt to outweigh the risk given the severity of her underlying mental health d/o. I would suggest maintaining this very low dose and checking a level on the (which I ordered today) before further titration. - sleeping more in last 24h getting high dose Thorazine which, unfortunately , may also be making her delirious. I am uncertain if she has been treated with high dose seroquel previously but that could be considered as an alternative if she struggles to tolerate the Thorazine moving forward. - will increase melatonin to 9mg qhs for additional sleep benefit with minimal risk for worsening delirium. could also consider temporarily maximizing ambien at 10mg but will defer for today 2/2 delirium as sleep is presently improving which will hopefully show antimanic effect. 08/22 - Continue on Thorazine, Vraylar, [place], and Klonopin. [place] level ordered for 08/25. - Will attempt to develop plan to decrease low-dose polypharmacy; Pt's significant other hesitant for other medication changes and is unwilling for ECT at this time - Continue delirium protocol with encouraging appropriate sleep/wake cycles 08/23 -Continue environmental and behavioral interventions for delirium, reviewed her medications and attempting to eliminate unnecessary medications ( cholestyramine discontinued as she was refusing it and not acutely important). -Try to consolidate sleep at night; continue melatonin 9 mg, clonazepam 2.5 mg, zolpidem 5 mg, and chlorpromazine 200 mg at bedtime. -Continue Vraylar 6 mg every morning (started 08/12/2017). -Continue trihexyphenidyl 1 mg every morning for akathisia. -[place] 150 mg at bedtime restarted 08/20/2017; level and BMP ordered for . 08/24 1. DC Vraylar- Has not shown any improvement since added 2. DC Thorazine- No significant improvement and contributing to anticholinergic load 3. DC Artane- Difficult to tell whether she is restless or whether restlessness is due to stefan, and concern for anticholinergic load 4. DC Ambien- Can contribute to confusion, especially in women 5. DC Vistaril- due to concerns for anticholinergic load 6. Retrial Depakote ER 500 mg. HS titrated to therapeutic level. Has been on this in the past but reports from pt and Alex provide different memories of it. 7. Trial Zyprexa- Will start low with 5 mg due to long half life of Vraylar , to target stefan 8. Continue lithium low dose, re-added due to concerns that withdrawing it after she has been on it for years has contributed to deterioration. Caution to renal status 9. Continue Klonopin 10. Continue Tramadol prn, but have encouraged nursing to use it only sparingly. 08/25 -Increase olanzapine to 7.5mg HS and prn to 5mg. -[place] trough 0.3; creatinine and BUN up slightly at 30 and 1.77. Continue to encourage adequate hydration, and will recheck lithium trough and BMP in 4 days. -Continue Depakote 500 mg nightly, and check a Depakote trough on 08/29/2017. -Consideration for ECT stefan, psychosis, and delirium do not improve. 08/26 -Increase HS zyprexa to 10 mg. continue prn's - Continue to encourage hydration - Continue depakote with level 08/29 - Will obtain CBC and UA to rule out UTI, dyscrasia - Continue to consider ECT if no improvement 08/27 --continue Zyprexa titration to 15 mg po qhs, d/c prn doses as no apparently benefit; given longstanding rx with a typical antipsychotic (Navane) and some response to Haldol prn, trial of Trilafon prn agitation. --restlessness appears to be related to catatonia in my opinion rather than akathisia. That said, will offer prn beta brad as trial for comfort, BP has been elevated anyway, would prefer to implement this rather than increasing Cozaar acutely --no clear benefit from hs clonazepam and treatment of choice for catatonia is lorazepam so taper Klonopin in favor of Ativan TID + prn. Remains on 1-on-1 for falls precautions. 08/28 --continue Zyprexa titration to 20 mg po qhs --may use propranolol TID prn --replace HS Klonopin with 2 mg Ativan as appears more effective 08/29 - Continue Zyprexa 20mg qHS, propranolol TID prn, Ativan 2mg qHS, and prn Trilafon - Recent labs reviewed: Li level = 0.4; Depakote level = 27 - BUN elevated at 36, creatinine elevated at 1.88. GFR = 27.5. - Due to progressive worsening of kidney function and apparent improvement with addition of other agents, will discontinue [place] at this time. - Increase Depakote to 750mg tonight. Depakote trough level ordered for 2017. 08/30 - Continue current meds with the exception of stopping AM ativan due to sedation, and concerns for fall risk 08/31 -Continue current medications, including Lorazepam 1 mg q. 1200 and 1700 hrs. and 2 mg at bedtime, Depakote 750 mg nightly, olanzapine 20 mg nightly, propanolol 20 mg 3 times daily as needed for restlessness, perphenazine 4 mg as needed for agitation, and melatonin 9 mg at bedtime. -Continue one-to-one monitoring. 09/01 - Continue current meds and plan including 1:1 (2) Chronic kidney disease (CKD) 08/11 - DC lithium. Will attempt to stabilize mood with atypicals - Collaborate with Dr. Ovalles as needed 08/20 - Restart [place] at 150mg qHS in attempt to stabilize mood and target manic behaviors. Ideally would be used in the short-term until response to Vraylar is more evident; however, patient is known to have responded well in the past. 08/21 - increase losartan to 50mg for persistently elevated BP's 08/23 -Low-dose lithium resumed 08/20/2017 due to acute worsening of psychiatric symptoms thought possibly due to discontinuation of lithium after being on it for many years. [place] trough and BMP ordered for 08/25/2017. 08/25 -[place] trough level 0.3, BUN 30, creatinine 1.77. These are up slightly from 08/10/2017, 1 BUN was 23 and creatinine 1.46. We will continue to monitor closely, ensure adequate hydration, and recheck in 4 days. If kidney function worsens, we will need to discontinue the lithium, as previously discussed with nephrology (Dr. Foreman on 07/25/2017). 08/29 - Labs reviewed: Li level = 0.4. BUN and Cr elevated at 36 and 1.88 respectively. GFR as outpatient progressively decreasing from 43.6 to 38.3. Most recent GFR = 27.5 - Will d/c [place] in favor of Depakote titration 08/31 -Will recheck BMP on 09/04/2017 to monitor kidney function. Continue to encourage fluids. (3) Hypothyroidism 08/11 - TSH WNL and not on levothyroxine. - May have had abnl values in the past related to being on lithium 08/26 - BP elevated. Will increase Cozaar to 75 mg. daily - VS BID (4) Hyperlipemia 08/11 - Continue home dose of atorvastatin - FLP done 07/24 08/23 -Patient intermittently refusing cholestyramine; discontinue for now as also on atorvastatin and trying to limit polypharmacy. (5) Hypertension 08/31 -has been persistently hypertensive for the past several days, and intermittently hypertensive throughout her stay. No known history of hypertension, and EKG on 08/19/2017 was normal sinus rhythm. Consider need for hospitalist assistance if hypertension persists. Discharge / Aftercare Planning Primary Care Physician: Name: Santos JACKSON Santech Appointment Notes: [facility] [place] [address] Psychiatrist: Name: Dr. Hahn, [facility] Appointment Notes: [address] [place] [id number] Therapist: Name: Katerina Valerio [facility] Appointment Notes: [address] [place] [id number] Community Engagement Manager: Name: Zulay Macias [facility] Services: Home Health Services: manager social media, home health agency Home Health Agency: [facility] Specialist: Name: Dr. Demarcus Ovalles, [employer] [facility] [place]: [phone] Date of Appointment: Oct 21, 2017 Time of Appointment: 1:15pm Visit Code E&M Code: 71643 Inventory Assets Strengths: Support from partner, good relationship with outpatient provider Needs: Clarity with her medications Risk Factors Assessment : Yes /single/: No Higher / Fall in social status: No Access to guns: No Health problems: Yes Mental Health Diagnoses: Yes Substance use disorders: No Previous attempt: Yes Family history of suicide: Yes Previous psychiatric stay: Yes Hopelessness: No Smoker: No Protective Factors Assessment : No Responsible for young children: No Employed: No Stable relationships: Yes Supportive family: Yes Good rapport with provider: Yes Data Vital Signs Last 24 Hrs: Date Time Temp Pulse Resp B/P (MAP) Pulse Ox O2 Delivery O2 Flow Rate FiO2 09/01/17 06:45 36.9 91 18 156/80 (105) 97 Room Air 08/31/17 21:47 37.0 91 16 160/64 (96) 97 08/31/17 10:16 37.1 93 20 124/75 (91) Meds Administered Last 24 Hrs: Meds Administered (Past 24Hrs) Medications (Trade) Dose Ordered Sig/Kelsey Route Start Time Stop Time Status Last Admin Dose Admin Lorazepam (Ativan Tab) 1 mg DAILY@1200,1700 PO 08/30/17 17:00 09/29/17 16:59 08/31/17 15:56 1 MG Losartan Potassium (coZAAR TAB) 25 mg TODAY@0900 PO 09/01/17 09:00 09/01/17 09:01 DC 09/01/17 09:19 25 MG Lab Results Last 24 Hrs: 08/26/17 10:15 08/29/17 09:07 Test 08/10/17 12:35 08/10/17 12:56 08/26/17 00:00 08/26/17 10:15 Urine Opiates Screen NEG (NEG) Urine Methadone, Qualitative NEG (NEG) Urine Barbiturates NEG (NEG) Urine Phencyclidine (PCP) Level NEG (NEG) Ur Amphetamine/Methamphetamine NEG (NEG) MDMA (Ecstasy) Screen NEG (NEG) Urine Benzodiazepines Screen NEG (NEG) Urine Cocaine Metabolite NEG (NEG) Urine Marijuana (THC) NEG (NEG) Immature Granulocyte % (Auto) 1.0 % White Blood Count 6.24 K/uL (4.8-10.8) Red Blood Count 3.35 M/uL (4.2-5.4) 4.03 M/uL (4.2-5.4) Hemoglobin 10.0 g/dL (12.0-16.0) Hematocrit 30.2 % (37-47) Mean Corpuscular Volume 90.1 fL (80-100) 89.6 fL (80-100) Mean Corpuscular Hemoglobin 29.9 pg (25-34) 29.3 pg (25-34) Mean Corpuscular Hemoglobin Concent 33.1 g/dl (32-36) 32.7 g/dl (32-36) Platelet Count 278 K/uL (130-400) Mean Platelet Volume 9.3 fL (7.4-10.4) 9.7 fL (7.4-10.4) Neutrophils (%) (Auto) 75.5 % Lymphocytes (%) (Auto) 11.1 % Monocytes (%) (Auto) 9.1 % Eosinophils (%) (Auto) 3.0 % Basophils (%) (Auto) 0.3 % Neutrophils # (Auto) 4.71 K/uL (1.4-6.5) Lymphocytes # (Auto) 0.69 K/uL (1.2-3.4) Monocytes # (Auto) 0.57 K/uL (0.11-0.59) Eosinophils # (Auto) 0.19 K/uL (0-0.5) Basophils # (Auto) 0.02 K/uL (0-0.2) Immature Granulocyte # (Auto) 0.06 K/uL (0.00-0.02) Total Bilirubin 0.3 mg/dl (0.2-1) Aspartate Amino Transf (AST/SGOT) 22 U/L (15-37) Alanine Aminotransferase (ALT/SGPT) 49 U/L (12-78) Alkaline Phosphatase 130 U/L (45-117) Total Protein 7.2 gm/dl (6.4-8.2) Albumin 3.4 gm/dl (3.4-5.0) Globulin 3.8 gm/dl (2.5-4.0) Albumin/Globulin Ratio 0.9 (0.9-2) Thyroid Stimulating Hormone (TSH) 2.020 uIu/ml (0.300-4.500) Salicylates Level < 1.7 mg/dl (2.8-20) Acetaminophen Level < 2 ug/ml (10-30) Ethyl Alcohol mg/dL < 3.0 mg/dl (0-3) Urine Color YELLOW Urine Appearance CLEAR (CLEAR) Urine pH 6.0 (4.5-7.5) Urine Specific [place] 1.009 (1.000-1.030) Urine Protein 1+ (NEG) Urine Glucose (UA) NEG (NEG) Urine Ketones NEG (NEG) Urine Occult Blood NEG (NEG) Urine Nitrite NEG (NEG) Urine Bilirubin NEG (NEG) Urine Urobilinogen NEG (NEG) Urine Leukocyte Esterase MODERATE (NEG) Urine WBC (Auto) 1-5 /hpf (0-5) Urine RBC (Auto) 0-4 /hpf (0-4) Urine Hyaline Casts (Auto) 0 /lpf (0-5) Urine Epithelial Cells (Auto) 5-10 /lpf (0-5) Urine Bacteria (Auto) NEG (NEG) RDW Standard Deviation 48.5 fL (36.4-46.3) RDW Coefficient of Variation 14.7 % (11.5-14.5) Test 08/29/17 09:07 Anion Gap 3.0 mmol/L (3-11) Est Creatinine Clear Calc Drug Dose 24.2 ml/min Estimated GFR () 31.9 Estimated GFR (Non- 27.5 BUN/Creatinine Ratio 19.0 (10-20) Calcium Level 9.3 mg/dl (8.5-10.1) Valproic Acid (Depakene) Level 27 mcg/ml (50-100) [place] Level 0.4 mMOL/L (0.6-1.2) Date/Time Source Procedure Growth Status 08/26/17 00:00 Urine , Clean Catch Urine Culture - Final MORE THAN THREE TYPES OF ORGANISMS KS... Complete Problem Qualifiers (1) Chronic kidney disease (CKD): Chronic kidney disease stage: stage 1 Qualified Codes: N18.1 - Chronic kidney disease, stage 1
[2017-09-01] MEDS: LORAZEPAM 1 MG TAB PO SCH ×2 (11:33→16:41)
[2017-09-01] MEDS: PERPHENAZINE 2 MG TAB PO PRN ×2 (12:14→22:35)
[2017-09-01] MEDS: ACETAMINOPHEN 325 MG TAB PO PRN (14:03)
[2017-09-01 21:13] VITALS: BP 132/81; PULSE 89; TEMP 37.2
[2017-09-01] MEDS: DIVALPROEX 250 MG EXTENDED REL TAB PO SCH (21:19)
[2017-09-01] MEDS: LORAZEPAM 2 MG TAB PO SCH (21:19)
[2017-09-01] MEDS: MELATONIN 3 MG PO SCH (21:21)
[2017-09-01] MEDS: OLANZAPINE 20 MG TAB PO SCH (21:22)
[2017-09-01] MEDS: ATORVASTATIN 10 MG TAB PO SCH (21:48)
[2017-09-01] MEDS: TRAMADOL HCL 50 MG TAB PO PRN (21:49)
[2017-09-01] MEDS: PROPRANOLOL HCL 20 MG TAB PO PRN (22:35)
[2017-09-02] MEDS: LORAZEPAM 1 MG TAB PO PRN ×2 (05:27→15:29)
[2017-09-02] MEDS: LOSARTAN POTASSIUM 25 MG TAB PO SCH (08:07)
[2017-09-02] MEDS: OMEGA-3 (PURIFIED FISH OIL) 1 GM CAP PO SCH ×2 (08:08→21:02)
[2017-09-02] MEDS: CEROVITE ADV FORMULA TAB PO SCH (08:08)
[2017-09-02] MEDS: TOCOPHERYL, DL-ALPHA 400 INTER.UNIT CAP PO SCH (08:09)
[2017-09-02] MEDS: PANTOprazole SOD 40 MG TAB PO SCH (08:09)
[2017-09-02] MEDS: MONTELUKAST SOD 10 MG TAB PO SCH (08:09)
[2017-09-02] MEDS: PERPHENAZINE 2 MG TAB PO PRN ×2 (08:09→15:30)
[2017-09-02] MEDS: TRAMADOL HCL 50 MG TAB PO PRN (08:18)
--- NOTE | 2017-09-02 09:00 | Psych Management Progress Note ---
Psychiatry Miscellaneous Date of Service: September 02, 2017. Patient seen, MS assessed. Rates mood as "[place] ladies sing this song". Encouraged cooperation with care and treatment plan as outlined by allied health prescriber. Sleep continues to vary nightly. 1-on-1, does better with written communication given hearing difficulties, hearing aides coming. May benefit from additional Zyprexa titration or standing order Trilafon.
[2017-09-02] MEDS ORDERED: PERPHENAZINE 2 MG TAB PO ONE (09:09)
--- NOTE | 2017-09-02 09:37 | Psychiatric Progress Notes ---
Progress Note Date of Service September 02, 2017. Interval History 67-year-old woman readmitted voluntarily for psychotic stefan 3 days after last hospitalization. She has been increasingly nonsensical and disorganized despite multiple med trials, complicated by delirium. Chief Complaint "It didn't work out (hearing appliance). ". Subjective Patient was seen & assessed interval progress reviewed with Treatment Team. Nursing reports that she had a very bad night, sleeping only 1 hour and being angry/irritable. At times she is yelling. Today she is without the hearing amplifier, but says that Alex will be bringing in her hearing aide today. She reports that her mood is "low" and points to the floor. 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 she says that there's a lot of "junk" in her head that she is "working to get out". She answers orientation questions correctly. She remains on 1:1 due to impulsivity, hx of falls. She has received prns of trilafon, inderal, ativan. Review of Systems Constitutional: + fatigue (eyes closing during the conversation) ENT: + hearing loss Respiratory: No cough, No sputum, No wheezing, No shortness of breath, No dyspnea on exertion, No dyspnea at rest, No hemoptysis, No problem reported Cardiovascular: No chest pain, No orthopnea, No PND, No edema, No claudication , No palpitations, No problem reported Abdomen: No pain, No nausea, No vomiting, No diarrhea, No constipation, No GI bleeding, No problem reported Musculoskeletal: No joint pain, No muscle pain, No swelling, No calf pain, No problem reported Neurologic: No memory loss, No paralysis, No weakness, No numbness/tingling, No vertigo, No balance problems, No problem reported Psychiatric: + problem reported (Mood is "low") Integumentary: No rash, No itch, No new/changing skin lesions, No color change , No bleeding, No problem reported Sleep Information Total Hours of Sleep: 1.00 Meal Information Percent of Breakfast Consumed: 50 Percent of Lunch Consumed: 80 Percent of Dinner Consumed: 100 Mental Status Exam During interview pt is: cooperative Appearance: appropriately dressed Eye contact is: good Motor behavior is: no abnormal motor movements Speech: normal in rate, rhythm & volume (Inarticulate due to hearing loss. Got loud X 1) Affect: flat Mood is: depressed Thought process: other (More linear, but distracted by her own thoughts) Thought content: paranoid, delusions Suicidal thought are: denied Hallucinations: other (Initially denies hallucinations, then talks about seeing things, and appears to be responding to internal stimuli) Cognition: other (All spheres impaired) Intelligence estimated to be: average Insight: severely impaired Judgement: severely impaired Impression Continues with a variable course, at times yelling agitated, but having more time of coherents conversation. Still requires 1:1 due to her impulsivity and fall risk. At this point, we are working with depakote as a formal mood stabilizer since she cannot tolerate lithium due to renal condition. She is on a max dose of Zyprexa and we have layered on Trilafon due to ongoing delusions, irritability. Ativan was helpful when she looked like she was experiencing symptoms of agitated catatonia, but I am concerned that at this point it is making her tired during the day. She has had a great many med changes over the course of her 2 inpatient stays and I am in favor of giving these meds time to work. I will add Trilafon 4 mg. TID today as nursing believes that there may be a pattern in which she does better after receiving prn. Plan (1) Bipolar 1 disorder with mixed features 08/11 - Increase Klonopin back to 1.5 mg HS to target sleep - Will DC lithium at this point due to concerns for her age and renal status - Will increase Risperdal to 1 mg. AM and 7 mg HS - Will DC navane to reduce polypharmacy - Continue prn haldol and increase to q 4 hr prn - Will have nursing attempt to preauth Vraylar to trial - DC Zoloft - Q 15 min checks for safety - Encourage participation in group and individual counseling as tolerated - Coordinate with current providers - had FLP and FBS on 07/23/17. All WNL with the exception of triglycerides of 151 and FBS 129 08/12 - Vraylar trial when Alex can bring it in - Start 1.5 mg daily increasing to 3 mg daily the following day. - Will taper risperdal at the same time 08/13 -Vraylar was actually started at 3mg hs on 08/12 since only 3mg capsules for supply. given s/e profile will move vraylar to earlier in day, will maintain pt at 3mg for time being given long half life of med and long half life of active metabolite tapering risperdal maintained at 1mg am and 3mg hs for now since just lowered by 4mg continue prn haldol doses 08/14 -maintained vraylar 3mg qday -maintained risperdal 1mg am and 3mg hs for now, aim to wean risperdal further as adjusting to vraylar over next days 08/15 - Continue Vraylar 3mg daily - Plan to continue to taper risperdal, however patient appears to be displaying more restlessness today in regard to manic behaviors and requiring redirection from staff and prn Haldol more frequently. - Attempt to determine proximity to baseline with visits from her fiance 08/16 - Vraylar increased to 6mg daily 08/17 - Discontinue risperidone due to inefficacy, and increase Haldol prn to 10mg. - Resume trihexphenidyl at 1mg daily and monitor restlessness as able. Challenging to know if her agitation is due to akathisia, anxiety, psychosis, or stefan, and she is a limited historian. 08/18 - DC haldol due to no response - Start Thorazine 25 mg. q 2 hr prn during the day and 100 mg. scheduled at HS 08/19 - Increase thorazine to 50 q 3 hr prn and 200 mg. HS - Try to maintain good sleep wake cycles - EKG today 08/20 - 150mg of Ethridge to be added this evening to stabilize mood in interim of response to Vraylar, level in 5 days to monitor for possible toxicity. - Increase Klonopin to 2.5mg qHS to better target sleep. Pt remains on 1-to- 1 observation currently, continue safety precautions for fall risk with medication changes - Encourage sleep as able, with target to keep patient in appropriate sleep- wake cycle. Daytime naps are limited in length. 08/21 - Li restarted yesterday which is not expected to demonstrate a quick benefit but in deference to long standing treatment and increased risk for ongoing mood instability off the medication. given renal impairment, she will need more frequent monitoring but the potential benefit is felt to outweigh the risk given the severity of her underlying mental health d/o. I would suggest maintaining this very low dose and checking a level on the (which I ordered today) before further titration. - sleeping more in last 24h getting high dose Thorazine which, unfortunately , may also be making her delirious. I am uncertain if she has been treated with high dose seroquel previously but that could be considered as an alternative if she struggles to tolerate the Thorazine moving forward. - will increase melatonin to 9mg qhs for additional sleep benefit with minimal risk for worsening delirium. could also consider temporarily maximizing ambien at 10mg but will defer for today 2/2 delirium as sleep is presently improving which will hopefully show antimanic effect. 08/22 - Continue on Thorazine, Vraylar, Ethridge, and Klonopin. Ethridge level ordered for 08/25. - Will attempt to develop plan to decrease low-dose polypharmacy; Pt's significant other hesitant for other medication changes and is unwilling for ECT at this time - Continue delirium protocol with encouraging appropriate sleep/wake cycles 08/23 -Continue environmental and behavioral interventions for delirium, reviewed her medications and attempting to eliminate unnecessary medications ( cholestyramine discontinued as she was refusing it and not acutely important). -Try to consolidate sleep at night; continue melatonin 9 mg, clonazepam 2.5 mg, zolpidem 5 mg, and chlorpromazine 200 mg at bedtime. -Continue Vraylar 6 mg every morning (started 08/12/2017). -Continue trihexyphenidyl 1 mg every morning for akathisia. -Ethridge 150 mg at bedtime restarted 08/20/2017; level and BMP ordered for . 08/24 1. DC Vraylar- Has not shown any improvement since added 2. DC Thorazine- No significant improvement and contributing to anticholinergic load 3. DC Artane- Difficult to tell whether she is restless or whether restlessness is due to stefan, and concern for anticholinergic load 4. DC Ambien- Can contribute to confusion, especially in women 5. DC Vistaril- due to concerns for anticholinergic load 6. Retrial Depakote ER 500 mg. HS titrated to therapeutic level. Has been on this in the past but reports from pt and Alex provide different memories of it. 7. Trial Zyprexa- Will start low with 5 mg due to long half life of Vraylar , to target stefan 8. Continue lithium low dose, re-added due to concerns that withdrawing it after she has been on it for years has contributed to deterioration. Caution to renal status 9. Continue Klonopin 10. Continue Tramadol prn, but have encouraged nursing to use it only sparingly. 08/25 -Increase olanzapine to 7.5mg HS and prn to 5mg. -Ethridge trough 0.3; creatinine and BUN up slightly at 30 and 1.77. Continue to encourage adequate hydration, and will recheck lithium trough and BMP in 4 days. -Continue Depakote 500 mg nightly, and check a Depakote trough on 08/29/2017. -Consideration for ECT stefan, psychosis, and delirium do not improve. 08/26 -Increase HS zyprexa to 10 mg. continue prn's - Continue to encourage hydration - Continue depakote with level 08/29 - Will obtain CBC and UA to rule out UTI, dyscrasia - Continue to consider ECT if no improvement 08/27 --continue Zyprexa titration to 15 mg po qhs, d/c prn doses as no apparently benefit; given longstanding rx with a typical antipsychotic (Navane) and some response to Haldol prn, trial of Trilafon prn agitation. --restlessness appears to be related to catatonia in my opinion rather than akathisia. That said, will offer prn beta brad as trial for comfort, BP has been elevated anyway, would prefer to implement this rather than increasing Cozaar acutely --no clear benefit from hs clonazepam and treatment of choice for catatonia is lorazepam so taper Klonopin in favor of Ativan TID + prn. Remains on 1-on-1 for falls precautions. 08/28 --continue Zyprexa titration to 20 mg po qhs --may use propranolol TID prn --replace HS Klonopin with 2 mg Ativan as appears more effective 08/29 - Continue Zyprexa 20mg qHS, propranolol TID prn, Ativan 2mg qHS, and prn Trilafon - Recent labs reviewed: Li level = 0.4; Depakote level = 27 - BUN elevated at 36, creatinine elevated at 1.88. GFR = 27.5. - Due to progressive worsening of kidney function and apparent improvement with addition of other agents, will discontinue Ethridge at this time. - Increase Depakote to 750mg tonight. Depakote trough level ordered for 2017. 08/30 - Continue current meds with the exception of stopping AM ativan due to sedation, and concerns for fall risk 08/31 -Continue current medications, including Lorazepam 1 mg q. 1200 and 1700 hrs. and 2 mg at bedtime, Depakote 750 mg nightly, olanzapine 20 mg nightly, propanolol 20 mg 3 times daily as needed for restlessness, perphenazine 4 mg as needed for agitation, and melatonin 9 mg at bedtime. -Continue one-to-one monitoring. 09/01 - Continue current meds and plan including 1:1 09/02 - Add Trilafon 4 mg. TID (2) Chronic kidney disease (CKD) 08/11 - DC lithium. Will attempt to stabilize mood with atypicals - Collaborate with Dr. Ovalles as needed 08/20 - Restart Ethridge at 150mg qHS in attempt to stabilize mood and target manic behaviors. Ideally would be used in the short-term until response to Vraylar is more evident; however, patient is known to have responded well in the past. 08/21 - increase losartan to 50mg for persistently elevated BP's 08/23 -Low-dose lithium resumed 08/20/2017 due to acute worsening of psychiatric symptoms thought possibly due to discontinuation of lithium after being on it for many years. Ethridge trough and BMP ordered for 08/25/2017. 08/25 -Ethridge trough level 0.3, BUN 30, creatinine 1.77. These are up slightly from 08/10/2017, 1 BUN was 23 and creatinine 1.46. We will continue to monitor closely, ensure adequate hydration, and recheck in 4 days. If kidney function worsens, we will need to discontinue the lithium, as previously discussed with nephrology (Dr. Foreman on 07/25/2017). 08/29 - Labs reviewed: Li level = 0.4. BUN and Cr elevated at 36 and 1.88 respectively. GFR as outpatient progressively decreasing from 43.6 to 38.3. Most recent GFR = 27.5 - Will d/c Ethridge in favor of Depakote titration 08/31 -Will recheck BMP on 09/04/2017 to monitor kidney function. Continue to encourage fluids. (3) Hypothyroidism 08/11 - TSH WNL and not on levothyroxine. - May have had abnl values in the past related to being on lithium 08/26 - BP elevated. Will increase Cozaar to 75 mg. daily - VS BID (4) Hyperlipemia 08/11 - Continue home dose of atorvastatin - FLP done 07/24 08/23 -Patient intermittently refusing cholestyramine; discontinue for now as also on atorvastatin and trying to limit polypharmacy. (5) Hypertension 08/31 -has been persistently hypertensive for the past several days, and intermittently hypertensive throughout her stay. No known history of hypertension, and EKG on 08/19/2017 was normal sinus rhythm. Consider need for hospitalist assistance if hypertension persists. Discharge / Aftercare Planning Primary Care Physician: Name: Santos JACKSON [facility] Appointment Notes: [address] [place] [address] Psychiatrist: Name: Dr. Hahn, [facility] Appointment Notes: [address] [place] [id number] Therapist: Name: Katerina Valerio [facility] Appointment Notes: [address] [place] [id number] Bulk Clerk: Name: Zulay Macias [facility]: Home Health Services: social media director, home health agency Home Health Agency: [facility] Specialist: Name: Dr. Demarcus Ovalles, Campaign Worker [facility] Phone Number: [phone] Date of Appointment: Oct 21, 2017 Time of Appointment: 1:15pm Visit Code E&M Code: 53920 Inventory Assets Strengths: Support from partner, good relationship with outpatient provider Needs: Clarity with her medications Risk Factors Assessment : Yes /single/: No Higher / Fall in social status: No Access to guns: No Health problems: Yes Mental Health Diagnoses: Yes Substance use disorders: No Previous attempt: Yes Family history of suicide: Yes Previous psychiatric stay: Yes Hopelessness: No Smoker: No Protective Factors Assessment : No Responsible for young children: No Employed: No Stable relationships: Yes Supportive family: Yes Good rapport with provider: Yes Data Vital Signs Last 24 Hrs: Date Time Temp Pulse Resp B/P (MAP) Pulse Ox O2 Delivery O2 Flow Rate FiO2 09/01/17 21:13 37.2 89 20 132/81 (98) 09/01/17 10:25 96 14 119/75 (90) Meds Administered Last 24 Hrs: Meds Administered (Past 24Hrs) Medications (Trade) Dose Ordered Sig/Kelsey Route Start Time Stop Time Status Last Admin Dose Admin Losartan Potassium (coZAAR TAB) 75 mg QAM PO 09/02/17 09:00 10/02/17 08:59 09/02/17 08:07 75 MG Losartan Potassium (coZAAR TAB) 25 mg TODAY@0900 PO 09/01/17 09:00 09/01/17 09:01 DC 09/01/17 09:19 25 MG Lab Results Last 24 Hrs: 08/26/17 10:15 08/29/17 09:07 Test 08/10/17 12:35 08/10/17 12:56 08/26/17 00:00 08/26/17 10:15 Urine Opiates Screen NEG (NEG) Urine Methadone, Qualitative NEG (NEG) Urine Barbiturates NEG (NEG) Urine Phencyclidine (PCP) Level NEG (NEG) Ur Amphetamine/Methamphetamine NEG (NEG) MDMA (Ecstasy) Screen NEG (NEG) Urine Benzodiazepines Screen NEG (NEG) Urine Cocaine Metabolite NEG (NEG) Urine Marijuana (THC) NEG (NEG) Immature Granulocyte % (Auto) 1.0 % White Blood Count 6.24 K/uL (4.8-10.8) Red Blood Count 3.35 M/uL (4.2-5.4) 4.03 M/uL (4.2-5.4) Hemoglobin 10.0 g/dL (12.0-16.0) Hematocrit 30.2 % (37-47) Mean Corpuscular Volume 90.1 fL (80-100) 89.6 fL (80-100) Mean Corpuscular Hemoglobin 29.9 pg (25-34) 29.3 pg (25-34) Mean Corpuscular Hemoglobin Concent 33.1 g/dl (32-36) 32.7 g/dl (32-36) Platelet Count 278 K/uL (130-400) Mean Platelet Volume 9.3 fL (7.4-10.4) 9.7 fL (7.4-10.4) Neutrophils (%) (Auto) 75.5 % Lymphocytes (%) (Auto) 11.1 % Monocytes (%) (Auto) 9.1 % Eosinophils (%) (Auto) 3.0 % Basophils (%) (Auto) 0.3 % Neutrophils # (Auto) 4.71 K/uL (1.4-6.5) Lymphocytes # (Auto) 0.69 K/uL (1.2-3.4) Monocytes # (Auto) 0.57 K/uL (0.11-0.59) Eosinophils # (Auto) 0.19 K/uL (0-0.5) Basophils # (Auto) 0.02 K/uL (0-0.2) Immature Granulocyte # (Auto) 0.06 K/uL (0.00-0.02) Total Bilirubin 0.3 mg/dl (0.2-1) Aspartate Amino Transf (AST/SGOT) 22 U/L (15-37) Alanine Aminotransferase (ALT/SGPT) 49 U/L (12-78) Alkaline Phosphatase 130 U/L (45-117) Total Protein 7.2 gm/dl (6.4-8.2) Albumin 3.4 gm/dl (3.4-5.0) Globulin 3.8 gm/dl (2.5-4.0) Albumin/Globulin Ratio 0.9 (0.9-2) Thyroid Stimulating Hormone (TSH) 2.020 uIu/ml (0.300-4.500) Salicylates Level < 1.7 mg/dl (2.8-20) Acetaminophen Level < 2 ug/ml (10-30) Ethyl Alcohol mg/dL < 3.0 mg/dl (0-3) Urine Color YELLOW Urine Appearance CLEAR (CLEAR) Urine pH 6.0 (4.5-7.5) Urine Specific [place] 1.009 (1.000-1.030) Urine Protein 1+ (NEG) Urine Glucose (UA) NEG (NEG) Urine Ketones NEG (NEG) Urine Occult Blood NEG (NEG) Urine Nitrite NEG (NEG) Urine Bilirubin NEG (NEG) Urine Urobilinogen NEG (NEG) Urine Leukocyte Esterase MODERATE (NEG) Urine WBC (Auto) 1-5 /hpf (0-5) Urine RBC (Auto) 0-4 /hpf (0-4) Urine Hyaline Casts (Auto) 0 /lpf (0-5) Urine Epithelial Cells (Auto) 5-10 /lpf (0-5) Urine Bacteria (Auto) NEG (NEG) RDW Standard Deviation 48.5 fL (36.4-46.3) RDW Coefficient of Variation 14.7 % (11.5-14.5) Test 08/29/17 09:07 Anion Gap 3.0 mmol/L (3-11) Est Creatinine Clear Calc Drug Dose 24.2 ml/min Estimated GFR () 31.9 Estimated GFR (Non- 27.5 BUN/Creatinine Ratio 19.0 (10-20) Calcium Level 9.3 mg/dl (8.5-10.1) Valproic Acid (Depakene) Level 27 mcg/ml (50-100) Ethridge Level 0.4 mMOL/L (0.6-1.2) Date/Time Source Procedure Growth Status 08/26/17 00:00 Urine , Clean Catch Urine Culture - Final MORE THAN THREE TYPES OF ORGANISMS AR... Complete Problem Qualifiers (1) Chronic kidney disease (CKD): Chronic kidney disease stage: stage 1 Qualified Codes: N18.1 - Chronic kidney disease, stage 1
[2017-09-02] MEDS: LORAZEPAM 1 MG TAB PO SCH ×2 (13:15→17:46)
[2017-09-02] MEDS: PERPHENAZINE 2 MG TAB PO SCH ×3 (13:18→21:02)
[2017-09-02] MEDS: ATORVASTATIN 10 MG TAB PO SCH (21:01)
[2017-09-02] MEDS: DIVALPROEX 250 MG EXTENDED REL TAB PO SCH (21:01)
[2017-09-02] MEDS: OLANZAPINE 20 MG TAB PO SCH (21:02)
[2017-09-02] MEDS: MELATONIN 3 MG PO SCH (21:02)
[2017-09-02] MEDS: LORAZEPAM 2 MG TAB PO SCH (21:05)
[2017-09-02 22:35] VITALS: BP 132/81; PULSE 89; O2SAT 97
[2017-09-03 00:25] VITALS: BP 193/80; PULSE 101
[2017-09-03] MEDS: PROPRANOLOL HCL 20 MG TAB PO PRN ×2 (00:32→22:56)
[2017-09-03] MEDS: PERPHENAZINE 2 MG TAB PO PRN ×2 (00:33→16:39)
[2017-09-03] MEDS: LOSARTAN POTASSIUM 25 MG TAB PO SCH (08:50)
[2017-09-03] MEDS: OMEGA-3 (PURIFIED FISH OIL) 1 GM CAP PO SCH ×2 (08:50→20:51)
[2017-09-03] MEDS: TOCOPHERYL, DL-ALPHA 400 INTER.UNIT CAP PO SCH (08:50)
[2017-09-03] MEDS: CEROVITE ADV FORMULA TAB PO SCH (08:50)
[2017-09-03] MEDS: MONTELUKAST SOD 10 MG TAB PO SCH (08:50)
[2017-09-03] MEDS: PANTOprazole SOD 40 MG TAB PO SCH (08:50)
[2017-09-03] MEDS: PERPHENAZINE 2 MG TAB PO SCH ×3 (08:51→20:52)
--- NOTE | 2017-09-03 09:43 | Psychiatric Progress Notes ---
Progress Note Date of Service September 03, 2017. Interval History 67-year-old woman readmitted voluntarily for psychotic stefan 3 days after last hospitalization. She has been increasingly nonsensical and disorganized despite multiple med trials, complicated by delirium. Chief Complaint "I' need to wash my hands they are sticky.....I am tired". Subjective Patient was seen & assessed interval progress reviewed with Treatment Team SHe continues to have disorganization believed to be at times due to poor hearing but did receive her hearing aid yesterday, and other times disorganized due to psychosis. She only slept 2hours overnight with rare cat naps last night She had multiple prn medications of thorazine (total 6 x4mg in 24hours) alongside her zyprexa 20mg/hs BP was elevated last night but seems to have normalized this AM SHe has some BRBPR reported on BM by patient but she had flushed prior to visualization by nursing with confirmed external Hemrrhoids on visual inspection at adult diaper change she was not actively bleeding She remain on 1 to 1 due to her lability, fall risk and disorganization. Subjective AND MSE: Met patient in her room. SHe was organized enough to report her hands were sticky from her meal (food on tray was well consumed) She walked to bathroom unassisted with moderate unsteadiness (provider at her side) and washed her hands. She does get distracted starting to wash not only her hands but her forearms, she is redirectable to finish but out of the blue starts drying her hands and verbalizing in a harsh angry tone intelligble words. When provider assisted her back to her bed she calmed quickly. She states her mood is "not that good because of all of this" motioning to her head again. She reported she is well "other than all of this going on in my head" and agreeing with provider that she feels confused and overwhelmed. She shares that she does have pain in her back and right side "long time since my compression fracture" not acute and spontaneously tells provider she has tylenol and ultram for it "I don't want anything stronger." She denies feeling dizzy or weak. NO evidence of akathisia, EPS or dystonia, she does not appear restless, but is alert with exopthalmos. She then asks for the temperature in her room to be increased and is not redirectable to discuss other things. Review of Systems See above report of GI, pain and reports she is "tired" Sleep Information Total Hours of Sleep: 2.75 Meal Information Percent of Breakfast Consumed: 50 Percent of Lunch Consumed: 10 Percent of Dinner Consumed: 75 Mental Status Exam During interview pt is: cooperative Appearance: appropriately dressed Eye contact is: good Motor behavior is: no abnormal motor movements Speech: normal in rate, rhythm & volume (Inarticulate due to hearing loss. raised her voice in angry fashion X 1) Affect: flat (labile to angry yelling for 5-10seconds x1) Mood is: depressed Thought process: other (More linear, but distracted by her own thoughts can be redirected at times, initelligible at times) Thought content: paranoid, delusions Suicidal thought are: denied Hallucinations: other (Initially denies hallucinations, then talks about seeing things, and appears to be responding to internal stimuli and motions towards her head as if it is "confused" ) Cognition: other (All spheres impaired) Intelligence estimated to be: average Insight: severely impaired Judgement: severely impaired Impression Continues with a variable course, at times yelling agitated, but having more time of coherent conversation. Still requires 1:1 due to her impulsivity and fall risk. At this point, we are working with depakote as a formal mood stabilizer since she cannot tolerate lithium due to renal condition. She is on a max dose of Zyprexa and we have layered on Trilafon due to ongoing delusions, irritability. Ativan was helpful when she looked like she was experiencing symptoms of agitated catatonia, but I am concerned that at this point it is making her tired during the day. She has had a great many med changes over the course of her 2 inpatient stays and I am in favor of giving these meds time to work. Scheduled trilafon 4mg po tid added on 09/02/17 with total of 24mg given in last 24hours, will schedule 08/03 and 8 today and monitor closely on 09/03/17 Plan (1) Bipolar 1 disorder with mixed features 08/11 - Increase Klonopin back to 1.5 mg HS to target sleep - Will DC lithium at this point due to concerns for her age and renal status - Will increase Risperdal to 1 mg. AM and 7 mg HS - Will DC navane to reduce polypharmacy - Continue prn haldol and increase to q 4 hr prn - Will have nursing attempt to preauth Vraylar to trial - DC Zoloft - Q 15 min checks for safety - Encourage participation in group and individual counseling as tolerated - Coordinate with current providers - had FLP and FBS on 07/23/17. All WNL with the exception of triglycerides of 151 and FBS 129 08/12 - Vraylar trial when Alex can bring it in - Start 1.5 mg daily increasing to 3 mg daily the following day. - Will taper risperdal at the same time 08/13 -Vraylar was actually started at 3mg hs on 08/12 since only 3mg capsules for supply. given s/e profile will move vraylar to earlier in day, will maintain pt at 3mg for time being given long half life of med and long half life of active metabolite tapering risperdal maintained at 1mg am and 3mg hs for now since just lowered by 4mg continue prn haldol doses 08/14 -maintained vraylar 3mg qday -maintained risperdal 1mg am and 3mg hs for now, aim to wean risperdal further as adjusting to vraylar over next days 08/15 - Continue Vraylar 3mg daily - Plan to continue to taper risperdal, however patient appears to be displaying more restlessness today in regard to manic behaviors and requiring redirection from staff and prn Haldol more frequently. - Attempt to determine proximity to baseline with visits from her fiance 08/16 - Vraylar increased to 6mg daily 08/17 - Discontinue risperidone due to inefficacy, and increase Haldol prn to 10mg. - Resume trihexphenidyl at 1mg daily and monitor restlessness as able. Challenging to know if her agitation is due to akathisia, anxiety, psychosis, or stefan, and she is a limited historian. 08/18 - DC haldol due to no response - Start Thorazine 25 mg. q 2 hr prn during the day and 100 mg. scheduled at HS 08/19 - Increase thorazine to 50 q 3 hr prn and 200 mg. HS - Try to maintain good sleep wake cycles - EKG today 4/21 - 150mg of Nectar to be added this evening to stabilize mood in interim of response to Vraylar, level in 5 days to monitor for possible toxicity. - Increase Klonopin to 2.5mg qHS to better target sleep. Pt remains on 1-to- 1 observation currently, continue safety precautions for fall risk with medication changes - Encourage sleep as able, with target to keep patient in appropriate sleep- wake cycle. Daytime naps are limited in length. 08/21 - Li restarted yesterday which is not expected to demonstrate a quick benefit but in deference to long standing treatment and increased risk for ongoing mood instability off the medication. given renal impairment, she will need more frequent monitoring but the potential benefit is felt to outweigh the risk given the severity of her underlying mental health d/o. I would suggest maintaining this very low dose and checking a level on the (which I ordered today) before further titration. - sleeping more in last 24h getting high dose Thorazine which, unfortunately , may also be making her delirious. I am uncertain if she has been treated with high dose seroquel previously but that could be considered as an alternative if she struggles to tolerate the Thorazine moving forward. - will increase melatonin to 9mg qhs for additional sleep benefit with minimal risk for worsening delirium. could also consider temporarily maximizing ambien at 10mg but will defer for today 2/2 delirium as sleep is presently improving which will hopefully show antimanic effect. 08/22 - Continue on Thorazine, Vraylar, Nectar, and Klonopin. Nectar level ordered for 08/25. - Will attempt to develop plan to decrease low-dose polypharmacy; Pt's significant other hesitant for other medication changes and is unwilling for ECT at this time - Continue delirium protocol with encouraging appropriate sleep/wake cycles 08/23 -Continue environmental and behavioral interventions for delirium, reviewed her medications and attempting to eliminate unnecessary medications ( cholestyramine discontinued as she was refusing it and not acutely important). -Try to consolidate sleep at night; continue melatonin 9 mg, clonazepam 2.5 mg, zolpidem 5 mg, and chlorpromazine 200 mg at bedtime. -Continue Vraylar 6 mg every morning (started 08/12/2017). -Continue trihexyphenidyl 1 mg every morning for akathisia. -Nectar 150 mg at bedtime restarted 08/20/2017; level and BMP ordered for . 08/24 1. DC Vraylar- Has not shown any improvement since added 2. DC Thorazine- No significant improvement and contributing to anticholinergic load 3. DC Artane- Difficult to tell whether she is restless or whether restlessness is due to stefan, and concern for anticholinergic load 4. DC Ambien- Can contribute to confusion, especially in women 5. DC Vistaril- due to concerns for anticholinergic load 6. Retrial Depakote ER 500 mg. HS titrated to therapeutic level. Has been on this in the past but reports from pt and Alex provide different memories of it. 7. Trial Zyprexa- Will start low with 5 mg due to long half life of Vraylar , to target stefan 8. Continue lithium low dose, re-added due to concerns that withdrawing it after she has been on it for years has contributed to deterioration. Caution to renal status 9. Continue Klonopin 10. Continue Tramadol prn, but have encouraged nursing to use it only sparingly. 08/25 -Increase olanzapine to 7.5mg HS and prn to 5mg. -Nectar trough 0.3; creatinine and BUN up slightly at 30 and 1.77. Continue to encourage adequate hydration, and will recheck lithium trough and BMP in 4 days. -Continue Depakote 500 mg nightly, and check a Depakote trough on 08/29/2017. -Consideration for ECT stefan, psychosis, and delirium do not improve. 08/26 -Increase HS zyprexa to 10 mg. continue prn's - Continue to encourage hydration - Continue depakote with level 08/29 - Will obtain CBC and UA to rule out UTI, dyscrasia - Continue to consider ECT if no improvement 08/27 --continue Zyprexa titration to 15 mg po qhs, d/c prn doses as no apparently benefit; given longstanding rx with a typical antipsychotic (Navane) and some response to Haldol prn, trial of Trilafon prn agitation. --restlessness appears to be related to catatonia in my opinion rather than akathisia. That said, will offer prn beta brad as trial for comfort, BP has been elevated anyway, would prefer to implement this rather than increasing Cozaar acutely --no clear benefit from hs clonazepam and treatment of choice for catatonia is lorazepam so taper Klonopin in favor of Ativan TID + prn. Remains on 1-on-1 for falls precautions. 08/28 --continue Zyprexa titration to 20 mg po qhs --may use propranolol TID prn --replace HS Klonopin with 2 mg Ativan as appears more effective 08/29 - Continue Zyprexa 20mg qHS, propranolol TID prn, Ativan 2mg qHS, and prn Trilafon - Recent labs reviewed: Li level = 0.4; Depakote level = 27 - BUN elevated at 36, creatinine elevated at 1.88. GFR = 27.5. - Due to progressive worsening of kidney function and apparent improvement with addition of other agents, will discontinue Nectar at this time. - Increase Depakote to 750mg tonight. Depakote trough level ordered for 2017. 08/30 - Continue current meds with the exception of stopping AM ativan due to sedation, and concerns for fall risk 08/31 -Continue current medications, including Lorazepam 1 mg q. 1200 and 1700 hrs. and 2 mg at bedtime, Depakote 750 mg nightly, olanzapine 20 mg nightly, propanolol 20 mg 3 times daily as needed for restlessness, perphenazine 4 mg as needed for agitation, and melatonin 9 mg at bedtime. -Continue one-to-one monitoring. 09/01 - Continue current meds and plan including 1:1 09/02 - Add Trilafon 4 mg. TID 09/03 - increase trilafon to and pending VPA level and BMP on 09/04, will add CBC due to BRBPR yesterday due to hemrrhoids, and TSH (see below). will watch her sedation and if sedated will lower ativan (2) Chronic kidney disease (CKD) 08/11 - DC lithium. Will attempt to stabilize mood with atypicals - Collaborate with Dr. Ovalles as needed 08/20 - Restart Nectar at 150mg qHS in attempt to stabilize mood and target manic behaviors. Ideally would be used in the short-term until response to Vraylar is more evident; however, patient is known to have responded well in the past. 08/21 - increase losartan to 50mg for persistently elevated BP's 08/23 -Low-dose lithium resumed 08/20/2017 due to acute worsening of psychiatric symptoms thought possibly due to discontinuation of lithium after being on it for many years. Nectar trough and BMP ordered for 08/25/2017. 08/25 -Nectar trough level 0.3, BUN 30, creatinine 1.77. These are up slightly from 08/10/2017, 1 BUN was 23 and creatinine 1.46. We will continue to monitor closely, ensure adequate hydration, and recheck in 4 days. If kidney function worsens, we will need to discontinue the lithium, as previously discussed with nephrology (Dr. Foreman on 07/25/2017). 08/29 - Labs reviewed: Li level = 0.4. BUN and Cr elevated at 36 and 1.88 respectively. GFR as outpatient progressively decreasing from 43.6 to 38.3. Most recent GFR = 27.5 - Will d/c Nectar in favor of Depakote titration 08/31 -Will recheck BMP on 09/04/2017 to monitor kidney function. Continue to encourage fluids. (3) Hypothyroidism 08/11 - TSH WNL and not on levothyroxine. - May have had abnl values in the past related to being on lithium 08/26 - BP elevated. Will increase Cozaar to 75 mg. daily - VS BID 09/03/17 - will add TSH to labs for tomorrow given exopthalamos, h/o hypothyroid and not on levothyroxine (4) Hyperlipemia 08/11 - Continue home dose of atorvastatin - FLP done 07/24 08/23 -Patient intermittently refusing cholestyramine; discontinue for now as also on atorvastatin and trying to limit polypharmacy. (5) Hypertension 08/31 -has been persistently hypertensive for the past several days, and intermittently hypertensive throughout her stay. No known history of hypertension, and EKG on 08/19/2017 was normal sinus rhythm. Consider need for hospitalist assistance if hypertension persists. 09/03 - normotensive this AM was hypertensive last evening but may also correlate with values taken at time of agitation, will monitor closely, Temp is not elevated and will check WBC tomorrow, do not think this is related to malignant catatonia at this time Discharge / Aftercare Planning Primary Care Physician: Name: Santos JACKSON [employer] [facility] Appointment Notes: [id number] [place] [address] Psychiatrist: Name: Dr. Hahn [facility] Appointment Notes: [address] [place] [address] Therapist: Name: Greyson Silverio [facility] Appointment Notes: [address] [place] [address] Sql Application Developer: Name: GloriaZulay sampson Home Health Services: Home Health Services: social sciences lecturer, home health agency Home Health Agency: [facility] Specialist: Name: Dr. Demarcus Ovalles, Construction Site Manager [facility] Phone Number: [phone] Date of Appointment: Oct 21, 2017 Time of Appointment: 1:15pm Visit Code E&M Code: 32211 Inventory Assets Strengths: Support from partner, good relationship with outpatient provider Needs: Clarity with her medications Risk Factors Assessment : Yes /single/: No Higher / Fall in social status: No Access to guns: No Health problems: Yes Mental Health Diagnoses: Yes Substance use disorders: No Previous attempt: Yes Family history of suicide: Yes Previous psychiatric stay: Yes Hopelessness: No Smoker: No Protective Factors Assessment : No Responsible for young children: No Employed: No Stable relationships: Yes Supportive family: Yes Good rapport with provider: Yes Data Vital Signs Last 24 Hrs: Date Time Temp Pulse Resp B/P (MAP) Pulse Ox O2 Delivery O2 Flow Rate FiO2 09/03/17 00:25 101 193/80 (117) 09/02/17 22:35 89 132/81 (98) 97 Room Air Meds Administered Last 24 Hrs: Meds Administered (Past 24Hrs) Medications (Trade) Dose Ordered Sig/Kelsey Route Start Time Stop Time Status Last Admin Dose Admin Losartan Potassium (coZAAR TAB) 75 mg QAM PO 09/02/17 09:00 10/02/17 08:59 09/03/17 08:50 75 MG Perphenazine (Trilafon Tab) 4 mg TID PO 09/02/17 14:00 10/02/17 13:59 09/03/17 08:51 4 MG Problem Qualifiers (1) Chronic kidney disease (CKD): Chronic kidney disease stage: stage 1 Qualified Codes: N18.1 - Chronic kidney disease, stage 1
[2017-09-03 10:47] VITALS: BP 130/68; PULSE 83
[2017-09-03] MEDS: LORAZEPAM 1 MG TAB PO SCH ×2 (11:59→16:32)
[2017-09-03] MEDS: ATORVASTATIN 10 MG TAB PO SCH (20:50)
[2017-09-03] MEDS: LORAZEPAM 2 MG TAB PO SCH (20:50)
[2017-09-03] MEDS: DIVALPROEX 250 MG EXTENDED REL TAB PO SCH (20:50)
[2017-09-03] MEDS: OLANZAPINE 20 MG TAB PO SCH (20:52)
[2017-09-03] MEDS: MELATONIN 3 MG PO SCH (20:56)
[2017-09-03] MEDS: TRAMADOL HCL 50 MG TAB PO PRN (21:14)
[2017-09-03 21:27] VITALS: BP 132/75; PULSE 90
[2017-09-03] MEDS: LORAZEPAM 1 MG TAB PO PRN (22:55)
[2017-09-03 22:58] VITALS: BP 169/77; PULSE 102
[2017-09-04] MEDS ORDERED: MIRTAZAPINE TAB 15 MG TAB PO STA (01:21)
[2017-09-04] MEDS: TRAMADOL HCL 50 MG TAB PO PRN (05:46)
[2017-09-04 06:18] VITALS: BP_SYST 118; BP_SYST 147; BP_DIAS 82; BP_DIAS 87; PULSE 80; PULSE 81; TEMP 37; O2SAT 98
[2017-09-04] MEDS: PERPHENAZINE 2 MG TAB PO SCH ×3 (06:58→21:15)
[2017-09-04] MEDS: PANTOprazole SOD 40 MG TAB PO SCH (08:27)
[2017-09-04] MEDS: MONTELUKAST SOD 10 MG TAB PO SCH (08:27)
[2017-09-04] MEDS: TOCOPHERYL, DL-ALPHA 400 INTER.UNIT CAP PO SCH (08:27)
[2017-09-04] MEDS: LOSARTAN POTASSIUM 25 MG TAB PO SCH (08:27)
[2017-09-04] MEDS: CEROVITE ADV FORMULA TAB PO SCH (08:27)
[2017-09-04] MEDS: OMEGA-3 (PURIFIED FISH OIL) 1 GM CAP PO SCH ×2 (08:27→21:14)
[2017-09-04 09:25] LABS: BASO % 0.2 %; BASO ABS # 0.01 K/uL (0-0.2); EOS % 1.5 %; EOS ABS # 0.06 K/uL (0-0.5); HEMATOCRIT 30.6 % (37-47); IG# 0.05 K/uL (0.00-0.02); LYMPH % 18.6 %; LYMPH ABS # 0.75 K/uL (1.2-3.4); MEAN CELL VOLUME 89.2 fL (80-100); MEAN CORPUSCULAR HEMOGLOBIN 29.2 pg (25-34); MEAN CORPUSCULAR HGB CONC 32.7 g/dl (32-36); MEAN PLATELET VOLUME 9.6 fL (7.4-10.4); MONO % 8.7 %; MONO ABS # 0.35 K/uL (0.11-0.59); NEUT % 69.8 %; NEUT ABS # 2.81 K/uL (1.4-6.5); PLATELET COUNT 171 K/uL (130-400); RED CELL DISTRIBUTION WIDTH CV 14.3 % (11.5-14.5); RED CELL DISTRIBUTION WIDTH SD 46.9 fL (36.4-46.3); WHITE BLOOD COUNT 4.03 K/uL (4.8-10.8)
[2017-09-04 10:02] LABS: CREATININE 1.48 mg/dl (0.60-1.20); POTASSIUM 4.9 mmol/L (3.5-5.1)
[2017-09-04] MEDS: LORAZEPAM 1 MG TAB PO SCH ×2 (11:41→17:22)
--- NOTE | 2017-09-04 12:43 | Psychiatric Progress Notes ---
Progress Note Date of Service September 04, 2017. Interval History 67-year-old woman readmitted voluntarily for psychotic stefan 3 days after last hospitalization. She has been increasingly nonsensical and disorganized despite multiple med trials, complicated by delirium. Chief Complaint "you are Tonia Go". Subjective Patient was seen & assessed interval progress reviewed with Treatment Team Ongoing 1 to 1 and MNPR due to easily overstimulated and agitated. She eats meals from her bedside tray unassisted, occasional sudden agitation out of the blue but easily calmed. Per 2nd shift she seemed more calm compared to 09/02 but continued to require strong redirection when agitated. IN the afternoon she became agitated when told Alex would be visiting tomorrow and yelled that staff was wrong and lying, she took prn trilafon 4mg and then noted to eat her dinner and apologized for yelling. At times she would engage in meaningful conversation but other time unintelligible. She spent much of her time in her room working on crafts. In the evening around 11pm she was agitated and yelling in the day room, pushed staff away and did not initially respond to redirection. She was extremely restless and received Inderal 20mg and ativan 1mg po . SHe slept for about and hour but then seems to wake in a startle and become restless again. Patient stated her mood is manic and mood is not good. She complained of disliking depakote because she feels too sedated and that makes her feel angry and trying to fight the sedation. Around 1240am she complained of restless legs with delusional thought of "they are trying to get me to kick." She was given her Ultram. Due to ongoing inability to sleep despite night meds and the above prns, we gave her remeron 7.5mg. Nurses message at 230 indcated she had been asleep for 45minutes. Later in the Am the nurses reported she awoke at 0400 in a panic and disoriented but once fully awake was oriented and signing and more friendly but appearing tired. She was assisted with a bedside bath and her hair was fixed. She was given Ultram for pain. Attempted to meet with patient this AM. She is notably tired and will open eyes to verbal stimuli but falls back to sleep easily. She is pleasant and attempts to cooperate. Staff notes she is sleeping intermittently and is labile at times in between described as "feisty" this AM. She pleasantly waves goodbye to the ENGAGEMENT ENGINEER and asks if the ENGAGEMENT ENGINEER who is 1 to 1 will come back. She could not meaningfully participate in the interview otherwise. Review of Systems patient did indicate she continues to have rib and back discomfort but denied constipation, she denied feeling legs were restless at this time Sleep Information Total Hours of Sleep: 2.50 Meal Information Percent of Breakfast Consumed: 90 Percent of Lunch Consumed: 90 Percent of Dinner Consumed: 100 Mental Status Exam During interview pt is: cooperative (but sleepy and unable to stay awake) Appearance: appropriately dressed Eye contact is: good Motor behavior is: no abnormal motor movements Speech: normal in rate, rhythm & volume (Inarticulate due to hearing loss. minimal speech due to short interaction while she was sleepy) Affect: other (seemed pleasant but drowsy) Mood is: depressed (labile per staff "feisty") Thought process: other (intellgible speech using hand motions and nodding mostly during this interveiw) Thought content: paranoid, delusions Suicidal thought are: denied Hallucinations: other (not able to assess due to brevity of interview) Cognition: other (not able to asess due to brevity of interview) Intelligence estimated to be: average Insight: severely impaired Judgement: severely impaired Impression Continues with a variable course, at times yelling agitated, but having more time of coherent conversation. Still requires 1:1 due to her impulsivity and fall risk. At this point, we are working with depakote as a formal mood stabilizer since she cannot tolerate lithium due to renal condition. She is on a max dose of Zyprexa and we have layered on Trilafon due to ongoing delusions, irritability. Ativan was helpful when she looked like she was experiencing symptoms of agitated catatonia, but I am concerned that at this point it is making her tired during the day. She has had a great many med changes over the course of her 2 inpatient stays and I am in favor of giving these meds time to work. Scheduled trilafon for 09/02 into 09/03 was 24mg, and Total for last 24hours onto 09/04 is 20mg Plan (1) Bipolar 1 disorder with mixed features 08/11 - Increase Klonopin back to 1.5 mg HS to target sleep - Will DC lithium at this point due to concerns for her age and renal status - Will increase Risperdal to 1 mg. AM and 7 mg HS - Will DC navane to reduce polypharmacy - Continue prn haldol and increase to q 4 hr prn - Will have nursing attempt to preauth Vraylar to trial - DC Zoloft - Q 15 min checks for safety - Encourage participation in group and individual counseling as tolerated - Coordinate with current providers - had FLP and FBS on 07/23/17. All WNL with the exception of triglycerides of 151 and FBS 129 08/12 - Vraylar trial when Alex can bring it in - Start 1.5 mg daily increasing to 3 mg daily the following day. - Will taper risperdal at the same time 08/13 -Vraylar was actually started at 3mg hs on 08/12 since only 3mg capsules for supply. given s/e profile will move vraylar to earlier in day, will maintain pt at 3mg for time being given long half life of med and long half life of active metabolite tapering risperdal maintained at 1mg am and 3mg hs for now since just lowered by 4mg continue prn haldol doses 08/14 -maintained vraylar 3mg qday -maintained risperdal 1mg am and 3mg hs for now, aim to wean risperdal further as adjusting to vraylar over next days 08/15 - Continue Vraylar 3mg daily - Plan to continue to taper risperdal, however patient appears to be displaying more restlessness today in regard to manic behaviors and requiring redirection from staff and prn Haldol more frequently. - Attempt to determine proximity to baseline with visits from her fiance 08/16 - Vraylar increased to 6mg daily 08/17 - Discontinue risperidone due to inefficacy, and increase Haldol prn to 10mg. - Resume trihexphenidyl at 1mg daily and monitor restlessness as able. Challenging to know if her agitation is due to akathisia, anxiety, psychosis, or stefan, and she is a limited historian. 08/18 - DC haldol due to no response - Start Thorazine 25 mg. q 2 hr prn during the day and 100 mg. scheduled at HS 08/19 - Increase thorazine to 50 q 3 hr prn and 200 mg. HS - Try to maintain good sleep wake cycles - EKG today 08/20 - 150mg of Dendron to be added this evening to stabilize mood in interim of response to Vraylar, level in 5 days to monitor for possible toxicity. - Increase Klonopin to 2.5mg qHS to better target sleep. Pt remains on 1-to- 1 observation currently, continue safety precautions for fall risk with medication changes - Encourage sleep as able, with target to keep patient in appropriate sleep- wake cycle. Daytime naps are limited in length. 08/21 - Li restarted yesterday which is not expected to demonstrate a quick benefit but in deference to long standing treatment and increased risk for ongoing mood instability off the medication. given renal impairment, she will need more frequent monitoring but the potential benefit is felt to outweigh the risk given the severity of her underlying mental health d/o. I would suggest maintaining this very low dose and checking a level on the (which I ordered today) before further titration. - sleeping more in last 24h getting high dose Thorazine which, unfortunately , may also be making her delirious. I am uncertain if she has been treated with high dose seroquel previously but that could be considered as an alternative if she struggles to tolerate the Thorazine moving forward. - will increase melatonin to 9mg qhs for additional sleep benefit with minimal risk for worsening delirium. could also consider temporarily maximizing ambien at 10mg but will defer for today 2/2 delirium as sleep is presently improving which will hopefully show antimanic effect. 08/22 - Continue on Thorazine, Vraylar, Dendron, and Klonopin. Dendron level ordered for 08/25. - Will attempt to develop plan to decrease low-dose polypharmacy; Pt's significant other hesitant for other medication changes and is unwilling for ECT at this time - Continue delirium protocol with encouraging appropriate sleep/wake cycles 08/23 -Continue environmental and behavioral interventions for delirium, reviewed her medications and attempting to eliminate unnecessary medications ( cholestyramine discontinued as she was refusing it and not acutely important). -Try to consolidate sleep at night; continue melatonin 9 mg, clonazepam 2.5 mg, zolpidem 5 mg, and chlorpromazine 200 mg at bedtime. -Continue Vraylar 6 mg every morning (started 08/12/2017). -Continue trihexyphenidyl 1 mg every morning for akathisia. -Dendron 150 mg at bedtime restarted 08/20/2017; level and BMP ordered for . 08/24 1. DC Vraylar- Has not shown any improvement since added 2. DC Thorazine- No significant improvement and contributing to anticholinergic load 3. DC Artane- Difficult to tell whether she is restless or whether restlessness is due to stefan, and concern for anticholinergic load 4. DC Ambien- Can contribute to confusion, especially in women 5. DC Vistaril- due to concerns for anticholinergic load 6. Retrial Depakote ER 500 mg. HS titrated to therapeutic level. Has been on this in the past but reports from pt and Alex provide different memories of it. 7. Trial Zyprexa- Will start low with 5 mg due to long half life of Vraylar , to target stefan 8. Continue lithium low dose, re-added due to concerns that withdrawing it after she has been on it for years has contributed to deterioration. Caution to renal status 9. Continue Klonopin 10. Continue Tramadol prn, but have encouraged nursing to use it only sparingly. 08/25 -Increase olanzapine to 7.5mg HS and prn to 5mg. -Dendron trough 0.3; creatinine and BUN up slightly at 30 and 1.77. Continue to encourage adequate hydration, and will recheck lithium trough and BMP in 4 days. -Continue Depakote 500 mg nightly, and check a Depakote trough on 08/29/2017. -Consideration for ECT stefan, psychosis, and delirium do not improve. 08/26 -Increase HS zyprexa to 10 mg. continue prn's - Continue to encourage hydration - Continue depakote with level 08/29 - Will obtain CBC and UA to rule out UTI, dyscrasia - Continue to consider ECT if no improvement 08/27 --continue Zyprexa titration to 15 mg po qhs, d/c prn doses as no apparently benefit; given longstanding rx with a typical antipsychotic (Navane) and some response to Haldol prn, trial of Trilafon prn agitation. --restlessness appears to be related to catatonia in my opinion rather than akathisia. That said, will offer prn beta brad as trial for comfort, BP has been elevated anyway, would prefer to implement this rather than increasing Cozaar acutely --no clear benefit from hs clonazepam and treatment of choice for catatonia is lorazepam so taper Klonopin in favor of Ativan TID + prn. Remains on 1-on-1 for falls precautions. 08/28 --continue Zyprexa titration to 20 mg po qhs --may use propranolol TID prn --replace HS Klonopin with 2 mg Ativan as appears more effective 08/29 - Continue Zyprexa 20mg qHS, propranolol TID prn, Ativan 2mg qHS, and prn Trilafon - Recent labs reviewed: Li level = 0.4; Depakote level = 27 - BUN elevated at 36, creatinine elevated at 1.88. GFR = 27.5. - Due to progressive worsening of kidney function and apparent improvement with addition of other agents, will discontinue Dendron at this time. - Increase Depakote to 750mg tonight. Depakote trough level ordered for 2017. 08/30 - Continue current meds with the exception of stopping AM ativan due to sedation, and concerns for fall risk 08/31 -Continue current medications, including Lorazepam 1 mg q. 1200 and 1700 hrs. and 2 mg at bedtime, Depakote 750 mg nightly, olanzapine 20 mg nightly, propanolol 20 mg 3 times daily as needed for restlessness, perphenazine 4 mg as needed for agitation, and melatonin 9 mg at bedtime. -Continue one-to-one monitoring. 09/01 - Continue current meds and plan including 1:1 09/02 - Add Trilafon 4 mg. TID 09/03 - increase trilafon to and pending VPA level and BMP on 09/04, will add CBC due to BRBPR yesterday due to hemrrhoids, and TSH (see below). will watch her sedation and if sedated will lower ativan 09/04/17 - patient is not showing tangible gains from this provider's review of chart and observation over last 2 days. Nursing staff felt she was less pervasively agitated on 09/03, and but she seems to continue to demonstrate pattern of delirium (waxing and waning mental state with fragmented sleep, hallucinations and waking in anxious state disoriented, labile) The inpatient team has done a heroic job of caring for this woman who has very complicated and refractory primary mental health condition and what appears to be superimposed delirium her prognosis is poor. She did best on lithium as a component of her treatment to date. Review of record is that patient's kidney function (creatinine and BUN) worsened on lithium earlier this month, but at 150mg/hs for 7days she had two of her best days inpatient on 08/29 (date of discontinuation), and 08/30 (day after discontinuation) even though her level was only 0.4 on 08/29. I will discuss with primary team as there are very serious risks of returning to lithium. - it is not clear if remeron provided an improvement for patient last night, or it was the last of a series of several sedating medications. Although it is optimal in delirium to keep up in the day and sleep at night, given she is only getting 1-4hours/night it is hard to justify waking her only for her to be agitated in the day today. Will discuss with staff and attempt to keep her up to a degree possible with light cues and stimulus in the day and lower stimulus at night - continue trilafon for now scheduled with PRN, she did require less in the last 24hours than the preceding day but it remains to be see if that is improvement - increase Depakote from 750 (level 57, free level pending) to 1000mg tonight repeat level ordered for 09/09/17 AM - she is anemic, stably so compared to 07/2017, but will draw ferritin, transferin and transferrin Saturation and TIBC to r/o iron deficiency as contributing to RLS as she is anemic, would replete with oral iron if this returns low, will discus with primary team as vitamin E may impair the response for her iron deficiency anemia - consider MVI in place of vitamin E (as not to over- dose with time) - avoid anticholinergics - she remains on benzodiazepines at this time (combination of scheduled and prns getting 5-6mg/day in the last 2 days), and although there was prior speculation of agitated catatonia in the chart it is not clear to me that the current prn doses are meaningfully helpful and can worsen delirium. Will maintain scheduled ativan 1mg 12, 1mg 1700 and 2mg/hs but stop the prn doses, and prefer trilafon prn psychosis/agitation - will not write for standing dose of remeron but if staff call again this evening after scheduled medications and patient is not sleeping would consider again giving 7.5mg remeron with caution monitoring for oversedation and future mood elevation, and watch RLS - will ask staff to get a clock drawing for goal of serial clock drawings overtime can assist in tracking delirium recovery (2) Chronic kidney disease (CKD) 08/11 - DC lithium. Will attempt to stabilize mood with atypicals - Collaborate with Dr. Ovalles as needed 08/20 - Restart Dendron at 150mg qHS in attempt to stabilize mood and target manic behaviors. Ideally would be used in the short-term until response to Vraylar is more evident; however, patient is known to have responded well in the past. 08/21 - increase losartan to 50mg for persistently elevated BP's 08/23 -Low-dose lithium resumed 08/20/2017 due to acute worsening of psychiatric symptoms thought possibly due to discontinuation of lithium after being on it for many years. Dendron trough and BMP ordered for 08/25/2017. 08/25 -Dendron trough level 0.3, BUN 30, creatinine 1.77. These are up slightly from 08/10/2017, 1 BUN was 23 and creatinine 1.46. We will continue to monitor closely, ensure adequate hydration, and recheck in 4 days. If kidney function worsens, we will need to discontinue the lithium, as previously discussed with nephrology (Dr. Foreman on 07/25/2017). 08/29 - Labs reviewed: Li level = 0.4. BUN and Cr elevated at 36 and 1.88 respectively. GFR as outpatient progressively decreasing from 43.6 to 38.3. Most recent GFR = 27.5 - Will d/c Dendron in favor of Depakote titration 08/31 -Will recheck BMP on 09/04/2017 to monitor kidney function. Continue to encourage fluids. 09/04 - Cr 1.48 and BUN 23, continue to encourage fluids (3) Hypothyroidism 08/11 - TSH WNL and not on levothyroxine. - May have had abnl values in the past related to being on lithium 08/26 - BP elevated. Will increase Cozaar to 75 mg. daily - VS BID 09/03/17 - will add TSH to labs for tomorrow given exopthalamos, h/o hypothyroid and not on levothyroxine 09/04 TSH WNL (4) Hyperlipemia 08/11 - Continue home dose of atorvastatin - FLP done 07/24 08/23 -Patient intermittently refusing cholestyramine; discontinue for now as also on atorvastatin and trying to limit polypharmacy. (5) Hypertension 08/31 -has been persistently hypertensive for the past several days, and intermittently hypertensive throughout her stay. No known history of hypertension, and EKG on 08/19/2017 was normal sinus rhythm. Consider need for hospitalist assistance if hypertension persists. 09/03 - normotensive this AM was hypertensive last evening but may also correlate with values taken at time of agitation, will monitor closely, Temp is not elevated and will check WBC tomorrow, do not think this is related to malignant catatonia at this time 09/04 - BP varies high in the evening and lower in the day, continue to monitor closely Discharge / Aftercare Planning Primary Care Physician: Name: Santos JACKSON Locately Appointment Notes: [facility] [place] [address] Psychiatrist: Name: Dr. Hahn, [facility] Psych Clinic Appointment Notes: [address] [place] [id number] Therapist: Name: Katerina Valerio [facility] Psych Clinic Appointment Notes: [address] [place] [id number] Deputy Jailer: Name: Zulay Macias Home Health Services: Home Health Services: social research assistant, home health agency Home Health Agency: [facility] Specialist: Name: Dr. Demarcus Ovalles, [place] [facility] [place] Number: [phone] Date of Appointment: Oct 21, 2017 Time of Appointment: 1:15pm Visit Code E&M Code: 80674 (spent >90min reveiwing record, rounding with staff, and considering options for this very complex case) Inventory Assets Strengths: Support from partner, good relationship with outpatient provider Needs: Clarity with her medications Risk Factors Assessment : Yes /single/: No Higher / Fall in social status: No Access to guns: No Health problems: Yes Mental Health Diagnoses: Yes Substance use disorders: No Previous attempt: Yes Family history of suicide: Yes Previous psychiatric stay: Yes Hopelessness: No Smoker: No Protective Factors Assessment : No Responsible for young children: No Employed: No Stable relationships: Yes Supportive family: Yes Good rapport with provider: Yes Data Vital Signs Last 24 Hrs: Date Time Temp Pulse Resp B/P (MAP) Pulse Ox O2 Delivery O2 Flow Rate FiO2 09/04/17 06:18 37.0 80 16 147/82 (103) 98 Room Air 81 118/87 (97) 09/03/17 22:58 102 18 169/77 (107) 09/03/17 21:27 90 16 132/75 (94) 09/03/17 10:47 83 16 130/68 (88) Meds Administered Last 24 Hrs: Meds Administered (Past 24Hrs) Medications (Trade) Dose Ordered Sig/Kelsey Route Start Time Stop Time Status Last Admin Dose Admin Losartan Potassium (coZAAR TAB) 75 mg QAM PO 09/02/17 09:00 10/02/17 08:59 09/03/17 08:50 75 MG Perphenazine (Trilafon Tab) 4 mg TID PO 09/02/17 14:00 09/03/17 09:50 DC 09/03/17 08:51 4 MG Perphenazine (Trilafon Tab) 4 mg [id number] PO 09/03/17 14:00 10/02/17 13:59 09/04/17 06:58 4 MG Perphenazine (Trilafon Tab) 8 mg HS PO 09/03/17 22:00 10/03/17 21:59 09/03/17 20:52 8 MG Mirtazapine (Remeron Tab) 7.5 mg NOW STAT PO 09/04/17 01:21 09/04/17 01:22 DC 09/04/17 01:26 7.5 MG Lab Results Last 24 Hrs: Last 24 Hours Test 09/04/17 04:44 Problem Qualifiers (1) Chronic kidney disease (CKD): Chronic kidney disease stage: stage 1 Qualified Codes: N18.1 - Chronic kidney disease, stage 1
[2017-09-04] MEDS: MELATONIN 3 MG PO SCH (21:12)
[2017-09-04] MEDS: ATORVASTATIN 10 MG TAB PO SCH (21:13)
[2017-09-04] MEDS: DIVALPROEX 500 MG EXTENDED RELEASE TAB PO SCH (21:13)
[2017-09-04] MEDS: OLANZAPINE 20 MG TAB PO SCH (21:15)
[2017-09-04] MEDS: LORAZEPAM 2 MG TAB PO SCH (21:18)
[2017-09-04] MEDS: ACETAMINOPHEN 325 MG TAB PO PRN (21:19)
[2017-09-05] MEDS: ACETAMINOPHEN 325 MG TAB PO PRN (02:26)
[2017-09-05] MEDS: TRAMADOL HCL 50 MG TAB PO PRN ×2 (02:26→17:04)
[2017-09-05] MEDS ORDERED: MIRTAZAPINE TAB 15 MG TAB PO STA (03:49)
[2017-09-05 06:18] VITALS: BP 120/78; PULSE 89; TEMP 37; O2SAT 95
[2017-09-05] MEDS: PERPHENAZINE 2 MG TAB PO SCH ×3 (06:29→21:44)
[2017-09-05] MEDS: CEROVITE ADV FORMULA TAB PO SCH (08:18)
[2017-09-05] MEDS: PANTOprazole SOD 40 MG TAB PO SCH (08:18)
[2017-09-05] MEDS: OMEGA-3 (PURIFIED FISH OIL) 1 GM CAP PO SCH ×2 (08:18→21:44)
[2017-09-05] MEDS: MONTELUKAST SOD 10 MG TAB PO SCH (08:18)
[2017-09-05] MEDS: LOSARTAN POTASSIUM 25 MG TAB PO SCH (08:18)
[2017-09-05] MEDS: ERGOCALCIFEROL 50,000 INTER.UNIT CAP PO SCH (08:19)
[2017-09-05] MEDS: TOCOPHERYL, DL-ALPHA 400 INTER.UNIT CAP PO SCH (08:19)
--- NOTE | 2017-09-05 10:51 | Psychiatric Progress Notes ---
Progress Note Date of Service September 05, 2017. Interval History 67-year-old woman readmitted voluntarily for psychotic stefan 3 days after last hospitalization. She has been increasingly nonsensical and disorganized despite multiple med trials, complicated by delirium. Chief Complaint "Down ". Subjective Patient was seen & assessed interval progress reviewed with Treatment Team. Staff reports she had a good day yesterday, was able to engage appropriately in conversation, and did crafts in her room. In the evening, she became more irritable, confused and agitated, was difficult to redirect, and at one point went into the group room and began up turning chairs. She insisted on sleeping in the group room, stating she did not feel safe in her room. At times she was labile, wailed loudly, and was easily distracted. On my assessment today, she was seen in her room. Communication with written questions, which she was able to answer appropriately for the most part. She says mood is down, but was poorly able to clarify further, stating "because they do not believe me when I say..." And her speech then became incoherent. She then starts talking about her mother's "mental breakdown," and at one point recites "pumped eat empty." She endorses auditory hallucinations saying "go home," but denies suicidal thoughts and thoughts of harming others. She says she wants to leave the hospital today, and she wants to go to [facility]. She insists she is leaving today when [facility] visits. Sleep Information Total Hours of Sleep: 2.25 Meal Information Percent of Breakfast Consumed: 100 Percent of Lunch Consumed: 80 Percent of Dinner Consumed: 100 Mental Status Exam During interview pt is: cooperative Appearance: appropriately dressed, appropriately groomed Eye contact is: fair Motor behavior is: no abnormal motor movements Speech: normal in rate, rhythm & volume (inarticulate at times.) Affect: labile Mood is: depressed ("down") Thought process: other (goal directed at times, other times loosening of associations.) Thought content: paranoid, delusions Suicidal thought are: denied Homicidal thoughts are: denied Hallucinations: auditory (voices saying "go home.") Cognition: other (all spheres impaired) Intelligence estimated to be: average Insight: severely impaired Judgement: severely impaired Impression Initially presented with psychotic stefan, now complicated by agitated delirium. Still requires a private room and 1:1 due to her impulsivity and fall risk. [place] has been discontinued due to renal failure, and Depakote has been added for bipolar disorder. She is on a max dose of Zyprexa and we have layered on Trilafon due to ongoing delusions and irritability. 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 This is very complex patient, with numerous medication changes in the course of her to back to back hospitalizations, and very difficult to treat symptoms, with medical comorbidities and age associated risk. Plan (1) Bipolar 1 disorder with mixed features 08/11 - Increase Klonopin back to 1.5 mg HS to target sleep - Will DC lithium at this point due to concerns for her age and renal status - Will increase Risperdal to 1 mg. AM and 7 mg HS - Will DC navane to reduce polypharmacy - Continue prn haldol and increase to q 4 hr prn - Will have nursing attempt to preauth Vraylar to trial - DC Zoloft - Q 15 min checks for safety - Encourage participation in group and individual counseling as tolerated - Coordinate with current providers - had FLP and FBS on 07/23/17. All WNL with the exception of triglycerides of 151 and FBS 129 08/12 - Vraylar trial when Alex can bring it in - Start 1.5 mg daily increasing to 3 mg daily the following day. - Will taper risperdal at the same time 08/13 -Vraylar was actually started at 3mg hs on 08/12 since only 3mg capsules for supply. given s/e profile will move vraylar to earlier in day, will maintain pt at 3mg for time being given long half life of med and long half life of active metabolite tapering risperdal maintained at 1mg am and 3mg hs for now since just lowered by 4mg continue prn haldol doses 08/14 -maintained vraylar 3mg qday -maintained risperdal 1mg am and 3mg hs for now, aim to wean risperdal further as adjusting to vraylar over next days 08/15 - Continue Vraylar 3mg daily - Plan to continue to taper risperdal, however patient appears to be displaying more restlessness today in regard to manic behaviors and requiring redirection from staff and prn Haldol more frequently. - Attempt to determine proximity to baseline with visits from her fiance 08/16 - Vraylar increased to 6mg daily 08/17 - Discontinue risperidone due to inefficacy, and increase Haldol prn to 10mg. - Resume trihexphenidyl at 1mg daily and monitor restlessness as able. Challenging to know if her agitation is due to akathisia, anxiety, psychosis, or stefan, and she is a limited historian. 08/18 - DC haldol due to no response - Start Thorazine 25 mg. q 2 hr prn during the day and 100 mg. scheduled at HS 08/19 - Increase thorazine to 50 q 3 hr prn and 200 mg. HS - Try to maintain good sleep wake cycles - EKG today 08/20 - 150mg of [place] to be added this evening to stabilize mood in interim of response to Vraylar, level in 5 days to monitor for possible toxicity. - Increase Klonopin to 2.5mg qHS to better target sleep. Pt remains on 1-to- 1 observation currently, continue safety precautions for fall risk with medication changes - Encourage sleep as able, with target to keep patient in appropriate sleep- wake cycle. Daytime naps are limited in length. 08/21 - Li restarted yesterday which is not expected to demonstrate a quick benefit but in deference to long standing treatment and increased risk for ongoing mood instability off the medication. given renal impairment, she will need more frequent monitoring but the potential benefit is felt to outweigh the risk given the severity of her underlying mental health d/o. I would suggest maintaining this very low dose and checking a level on the (which I ordered today) before further titration. - sleeping more in last 24h getting high dose Thorazine which, unfortunately , may also be making her delirious. I am uncertain if she has been treated with high dose seroquel previously but that could be considered as an alternative if she struggles to tolerate the Thorazine moving forward. - will increase melatonin to 9mg qhs for additional sleep benefit with minimal risk for worsening delirium. could also consider temporarily maximizing ambien at 10mg but will defer for today 2/2 delirium as sleep is presently improving which will hopefully show antimanic effect. 08/22 - Continue on Thorazine, Vraylar, [place], and Klonopin. [place] level ordered for 08/25. - Will attempt to develop plan to decrease low-dose polypharmacy; Pt's significant other hesitant for other medication changes and is unwilling for ECT at this time - Continue delirium protocol with encouraging appropriate sleep/wake cycles 08/23 -Continue environmental and behavioral interventions for delirium, reviewed her medications and attempting to eliminate unnecessary medications ( cholestyramine discontinued as she was refusing it and not acutely important). -Try to consolidate sleep at night; continue melatonin 9 mg, clonazepam 2.5 mg, zolpidem 5 mg, and chlorpromazine 200 mg at bedtime. -Continue Vraylar 6 mg every morning (started 08/12/2017). -Continue trihexyphenidyl 1 mg every morning for akathisia. -[place]au 150 mg at bedtime restarted 08/20/2017; level and BMP ordered for . 08/24 1. DC Vraylar- Has not shown any improvement since added 2. DC Thorazine- No significant improvement and contributing to anticholinergic load 3. DC Artane- Difficult to tell whether she is restless or whether restlessness is due to stefan, and concern for anticholinergic load 4. DC Ambien- Can contribute to confusion, especially in women 5. DC Vistaril- due to concerns for anticholinergic load 6. Retrial Depakote ER 500 mg. HS titrated to therapeutic level. Has been on this in the past but reports from pt and Alex provide different memories of it. 7. Trial Zyprexa- Will start low with 5 mg due to long half life of Vraylar , to target stefan 8. Continue lithium low dose, re-added due to concerns that withdrawing it after she has been on it for years has contributed to deterioration. Caution to renal status 9. Continue Klonopin 10. Continue Tramadol prn, but have encouraged nursing to use it only sparingly. 08/25 -Increase olanzapine to 7.5mg HS and prn to 5mg. -[place]au trough 0.3; creatinine and BUN up slightly at 30 and 1.77. Continue to encourage adequate hydration, and will recheck lithium trough and BMP in 4 days. -Continue Depakote 500 mg nightly, and check a Depakote trough on 08/29/2017. -Consideration for ECT stefan, psychosis, and delirium do not improve. 08/26 -Increase HS zyprexa to 10 mg. continue prn's - Continue to encourage hydration - Continue depakote with level 08/29 - Will obtain CBC and UA to rule out UTI, dyscrasia - Continue to consider ECT if no improvement 08/27 --continue Zyprexa titration to 15 mg po qhs, d/c prn doses as no apparently benefit; given longstanding rx with a typical antipsychotic (Navane) and some response to Haldol prn, trial of Trilafon prn agitation. --restlessness appears to be related to catatonia in my opinion rather than akathisia. That said, will offer prn beta brad as trial for comfort, BP has been elevated anyway, would prefer to implement this rather than increasing Cozaar acutely --no clear benefit from hs clonazepam and treatment of choice for catatonia is lorazepam so taper Klonopin in favor of Ativan TID + prn. Remains on -on-1 for falls precautions. 08/28 --continue Zyprexa titration to 20 mg po qhs --may use propranolol TID prn --replace HS Klonopin with 2 mg Ativan as appears more effective 08/29 - Continue Zyprexa 20mg qHS, propranolol TID prn, Ativan 2mg qHS, and prn Trilafon - Recent labs reviewed: Li level = 0.4; Depakote level = 27 - BUN elevated at 36, creatinine elevated at 1.88. GFR = 27.5. - Due to progressive worsening of kidney function and apparent improvement with addition of other agents, will discontinue [place] at this time. - Increase Depakote to 750mg tonight. Depakote trough level ordered for 2017. 08/30 - Continue current meds with the exception of stopping AM ativan due to sedation, and concerns for fall risk 08/31 -Continue current medications, including Lorazepam 1 mg q. 1200 and 1700 hrs. and 2 mg at bedtime, Depakote 750 mg nightly, olanzapine 20 mg nightly, propanolol 20 mg 3 times daily as needed for restlessness, perphenazine 4 mg as needed for agitation, and melatonin 9 mg at bedtime. -Continue one-to-one monitoring. 09/01 - Continue current meds and plan including 1:1 09/02 - Add Trilafon 4 mg. TID 09/03 - increase trilafon to and pending VPA level and BMP on 09/04, will add CBC due to BRBPR yesterday due to hemrrhoids, and TSH (see below). will watch her sedation and if sedated will lower ativan 09/04/17 - patient is not showing tangible gains from this provider's review of chart and observation over last 2 days. Nursing staff felt she was less pervasively agitated on 09/03, and but she seems to continue to demonstrate pattern of delirium (waxing and waning mental state with fragmented sleep, hallucinations and waking in anxious state disoriented, labile) The inpatient team has done a heroic job of caring for this woman who has very complicated and refractory primary mental health condition and what appears to be superimposed delirium her prognosis is poor. She did best on lithium as a component of her treatment to date. Review of record is that patient's kidney function (creatinine and BUN) worsened on lithium earlier this month, but at 150mg/hs for 7days she had two of her best days inpatient on 08/29 (date of discontinuation), and 08/30 (day after discontinuation) even though her level was only 0.4 on 08/29. I will discuss with primary team as there are very serious risks of returning to lithium. - it is not clear if remeron provided an improvement for patient last night, or it was the last of a series of several sedating medications. Although it is optimal in delirium to keep up in the day and sleep at night, given she is only getting 1-4hours/night it is hard to justify waking her only for her to be agitated in the day today. Will discuss with staff and attempt to keep her up to a degree possible with light cues and stimulus in the day and lower stimulus at night - continue trilafon for now scheduled with PRN, she did require less in the last 24hours than the preceding day but it remains to be see if that is improvement - increase Depakote from 750 (level 57, free level pending) to 1000mg tonight repeat level ordered for 09/09/17 AM - she is anemic, stably so compared to 07/2017, but will draw ferritin, transferin and transferrin Saturation and TIBC to r/o iron deficiency as contributing to RLS as she is anemic, would replete with oral iron if this returns low, will discus with primary team as vitamin E may impair the response for her iron deficiency anemia - consider MVI in place of vitamin E (as not to over- dose with time) - avoid anticholinergics - she remains on benzodiazepines at this time (combination of scheduled and prns getting 5-6mg/day in the last 2 days), and although there was prior speculation of agitated catatonia in the chart it is not clear to me that the current prn doses are meaningfully helpful and can worsen delirium. Will maintain scheduled ativan 1mg 12, 1mg 1700 and 2mg/hs but stop the prn doses, and prefer trilafon prn psychosis/agitation - will not write for standing dose of remeron but if staff call again this evening after scheduled medications and patient is not sleeping would consider again giving 7.5mg remeron with caution monitoring for oversedation and future mood elevation, and watch RLS - will ask staff to get a clock drawing for goal of serial clock drawings overtime can assist in tracking delirium recovery 09/05 -Continue Depakote 1000 mg nightly, with a repeat trough level on 09/09/2017. -Continue olanzapine 20 mg nightly, perphenazine 4 mg twice daily and 8 mg nightly, and decrease Lorazepam to 1 mg q. 1700 and 2 mg nightly (discontinuing the 1 mg dose at noon). Continue perphenazine and propanolol as needed's. (2) Chronic kidney disease (CKD) 08/11 - DC lithium. Will attempt to stabilize mood with atypicals - Collaborate with Dr. Ovalles as needed 08/20 - Restart [place]au at 150mg qHS in attempt to stabilize mood and target manic behaviors. Ideally would be used in the short-term until response to Vraylar is more evident; however, patient is known to have responded well in the past. 08/21 - increase losartan to 50mg for persistently elevated BP's 08/23 -Low-dose lithium resumed 08/20/2017 due to acute worsening of psychiatric symptoms thought possibly due to discontinuation of lithium after being on it for many years. [place] trough and BMP ordered for 08/25/2017. 08/25 -[place] trough level 0.3, BUN 30, creatinine 1.77. These are up slightly from 08/10/2017, 1 BUN was 23 and creatinine 1.46. We will continue to monitor closely, ensure adequate hydration, and recheck in 4 days. If kidney function worsens, we will need to discontinue the lithium, as previously discussed with nephrology (Dr. Foreman on 07/25/2017). 08/29 - Labs reviewed: Li level = 0.4. BUN and Cr elevated at 36 and 1.88 respectively. GFR as outpatient progressively decreasing from 43.6 to 38.3. Most recent GFR = 27.5 - Will d/c [place] in favor of Depakote titration 08/31 -Will recheck BMP on 09/04/2017 to monitor kidney function. Continue to encourage fluids. 09/04 - Cr 1.48 and BUN 23, continue to encourage fluids (3) Hypothyroidism 08/11 - TSH WNL and not on levothyroxine. - May have had abnl values in the past related to being on lithium 08/26 - BP elevated. Will increase Cozaar to 75 mg. daily - VS BID 09/03/17 - will add TSH to labs for tomorrow given exopthalamos, h/o hypothyroid and not on levothyroxine 09/04 TSH WNL (4) Hyperlipemia 08/11 - Continue home dose of atorvastatin - FLP done 07/24 08/23 -Patient intermittently refusing cholestyramine; discontinue for now as also on atorvastatin and trying to limit polypharmacy. (5) Hypertension 08/31 -has been persistently hypertensive for the past several days, and intermittently hypertensive throughout her stay. No known history of hypertension, and EKG on 08/19/2017 was normal sinus rhythm. Consider need for hospitalist assistance if hypertension persists. 09/03 - normotensive this AM was hypertensive last evening but may also correlate with values taken at time of agitation, will monitor closely, Temp is not elevated and will check WBC tomorrow, do not think this is related to malignant catatonia at this time 09/04 - BP varies high in the evening and lower in the day, continue to monitor closely Discharge / Aftercare Planning Primary Care Physician: Name: Santos JACKSON etrigg [facility]ment Notes[facility] [address] [place] [address] Psychiatrist: Name: Dr. Hahn [facility] Clinic Appointment Notes: [address] [facility] [place] [address] Therapist: Name: Greyson Silverio [facility] Appointment Notes: [address] [facility] [place] [address] Pole Sander Operator: Name: Zulay Macias Home Health Services: Home Health Services: healthcare social worker, home health agency Home Health Agency: [facility] Home Health Specialist: Name: Dr. Demarcus Ovalles, Sub Master [facility] Phone Number: [phone] Date of Appointment: Oct 21, 2017 Time of Appointment: 1:15pm Visit Code E&M Code: 12981 Inventory Assets Strengths: Support from partner, good relationship with outpatient provider Needs: Clarity with her medications Risk Factors Assessment : Yes /single/: No Higher / Fall in social status: No Access to guns: No Health problems: Yes Mental Health Diagnoses: Yes Substance use disorders: No Previous attempt: Yes Family history of suicide: Yes Previous psychiatric stay: Yes Hopelessness: No Smoker: No Protective Factors Assessment : No Responsible for young children: No Employed: No Stable relationships: Yes Supportive family: Yes Good rapport with provider: Yes Data Vital Signs Last 24 Hrs: Date Time Temp Pulse Resp B/P (MAP) Pulse Ox O2 Delivery O2 Flow Rate FiO2 09/05/17 06:18 37.0 89 16 120/78 (92) 95 Room Air Meds Administered Last 24 Hrs: Meds Administered (Past 24Hrs) Medications (Trade) Dose Ordered Sig/Kelsey Route Start Time Stop Time Status Last Admin Dose Admin Perphenazine (Trilafon Tab) 4 mg [id number] PO 09/03/17 14:00 10/02/17 13:59 09/05/17 06:29 4 MG Perphenazine (Trilafon Tab) 8 mg HS PO 09/03/17 22:00 10/03/17 21:59 09/04/17 21:15 8 MG Mirtazapine (Remeron Tab) 7.5 mg NOW STAT PO 09/04/17 01:21 09/04/17 01:22 DC 09/04/17 01:26 7.5 MG Divalproex Sodium (Depakote Extended Rel Tab) 1,000 mg HS PO 09/04/17 22:00 09/23/17 21:59 09/04/17 21:13 1,000 MG Mirtazapine (Remeron Tab) 7.5 mg NOW STAT PO 09/05/17 03:49 09/05/17 03:50 DC 09/05/17 03:54 7.5 MG Problem Qualifiers (1) Chronic kidney disease (CKD): Chronic kidney disease stage: stage 1 Qualified Codes: N18.1 - Chronic kidney disease, stage 1
[2017-09-05] MEDS: LORAZEPAM 1 MG TAB PO SCH (17:06)
[2017-09-05 21:07] VITALS: BP 138/86; PULSE 94
[2017-09-05] MEDS: LORAZEPAM 2 MG TAB PO SCH (21:44)
[2017-09-05] MEDS: MELATONIN 3 MG PO SCH (21:44)
[2017-09-05] MEDS: ATORVASTATIN 10 MG TAB PO SCH (21:44)
[2017-09-05] MEDS: DIVALPROEX 500 MG EXTENDED RELEASE TAB PO SCH (21:44)
[2017-09-05] MEDS: OLANZAPINE 20 MG TAB PO SCH (21:45)
[2017-09-06] MEDS: PERPHENAZINE 2 MG TAB PO PRN (01:32)
[2017-09-06] MEDS: TRAMADOL HCL 50 MG TAB PO PRN (01:51)
[2017-09-06] MEDS: PERPHENAZINE 2 MG TAB PO SCH ×3 (06:51→20:53)
[2017-09-06 07:00] VITALS: BP_SYST 105; BP_SYST 122; BP_DIAS 69; BP_DIAS 75; PULSE 97; PULSE 98; TEMP 36.4
[2017-09-06] MEDS: MONTELUKAST SOD 10 MG TAB PO SCH (07:31)
[2017-09-06] MEDS: PANTOprazole SOD 40 MG TAB PO SCH (07:31)
[2017-09-06] MEDS: CEROVITE ADV FORMULA TAB PO SCH (07:31)
[2017-09-06] MEDS: OMEGA-3 (PURIFIED FISH OIL) 1 GM CAP PO SCH ×2 (07:31→20:54)
[2017-09-06] MEDS: LOSARTAN POTASSIUM 25 MG TAB PO SCH (07:31)
[2017-09-06] MEDS: TOCOPHERYL, DL-ALPHA 400 INTER.UNIT CAP PO SCH (07:32)
[2017-09-06] MEDS: ACETAMINOPHEN 325 MG TAB PO PRN (07:53)
--- NOTE | 2017-09-06 09:49 | Psychiatric Progress Notes ---
Progress Note Date of Service September 06, 2017. Interval History 67-year-old woman readmitted voluntarily for psychotic stefan 3 days after last hospitalization. She has been increasingly nonsensical and disorganized despite multiple med trials, complicated by delirium. Chief Complaint None stated Subjective Patient was seen & assessed interval progress reviewed with Treatment Team. Nursing reports that Brenda had a good evening yesterday. She was engaged in craft activities and conversation, but was frustrated with being in the hospital , wanting to go home with Alex. She had poor sleep on shift coordinator and was given prn's including trilafon, and this AM is having trouble staying awake. She will arose to verbal/tactile, but quickly falls back to sleep. She is oriented to person, place and year. She does not answer questions re: hallucinations or mood due to somnolence. Review of Systems Constitutional: + fatigue ENT: + hearing loss Sleep Information Total Hours of Sleep: 2.75 Meal Information Percent of Breakfast Consumed: 100 Percent of Lunch Consumed: 90 Percent of Dinner Consumed: 100 Mental Status Exam During interview pt is: cooperative, other (tired and poorly able to stay awake ) Appearance: appropriately dressed, appropriately groomed Eye contact is: poor Motor behavior is: no abnormal motor movements Speech: normal in rate, rhythm & volume (inarticulate at times.) Affect: other (tired) Mood is: other (tired) Thought process: goal directed, other (goal directed at times, other times loosening of associations.) Cognition: other (all spheres impaired) Intelligence estimated to be: average Insight: severely impaired Judgement: severely impaired Impression Some slow progress in recent days, but nighttime sleep still problematic. At home her pattern is to go to bed at 1900 and get up around 0230. Today will shift trilafon more to HS, 4 mg at 1400 and 12 mg at HS. Continue other meds. Plan (1) Bipolar 1 disorder with mixed features 08/11 - Increase Klonopin back to 1.5 mg HS to target sleep - Will DC lithium at this point due to concerns for her age and renal status - Will increase Risperdal to 1 mg. AM and 7 mg HS - Will DC navane to reduce polypharmacy - Continue prn haldol and increase to q 4 hr prn - Will have nursing attempt to preauth Vraylar to trial - DC Zoloft - Q 15 min checks for safety - Encourage participation in group and individual counseling as tolerated - Coordinate with current providers - had FLP and FBS on 07/23/17. All WNL with the exception of triglycerides of 151 and FBS 129 08/12 - Vraylar trial when Alex can bring it in - Start 1.5 mg daily increasing to 3 mg daily the following day. - Will taper risperdal at the same time 08/13 -Vraylar was actually started at 3mg hs on 08/12 since only 3mg capsules for supply. given s/e profile will move vraylar to earlier in day, will maintain pt at 3mg for time being given long half life of med and long half life of active metabolite tapering risperdal maintained at 1mg am and 3mg hs for now since just lowered by 4mg continue prn haldol doses 08/14 -maintained vraylar 3mg qday -maintained risperdal 1mg am and 3mg hs for now, aim to wean risperdal further as adjusting to vraylar over next days 08/15 - Continue Vraylar 3mg daily - Plan to continue to taper risperdal, however patient appears to be displaying more restlessness today in regard to manic behaviors and requiring redirection from staff and prn Haldol more frequently. - Attempt to determine proximity to baseline with visits from her fiance 08/16 - Vraylar increased to 6mg daily 08/17 - Discontinue risperidone due to inefficacy, and increase Haldol prn to 10mg. - Resume trihexphenidyl at 1mg daily and monitor restlessness as able. Challenging to know if her agitation is due to akathisia, anxiety, psychosis, or stefan, and she is a limited historian. 08/18 - DC haldol due to no response - Start Thorazine 25 mg. q 2 hr prn during the day and 100 mg. scheduled at HS 08/19 - Increase thorazine to 50 q 3 hr prn and 200 mg. HS - Try to maintain good sleep wake cycles - EKG today 08/20 - 150mg of [place] to be added this evening to stabilize mood in interim of response to Vraylar, level in 5 days to monitor for possible toxicity. - Increase Klonopin to 2.5mg qHS to better target sleep. Pt remains on 1-to- 1 observation currently, continue safety precautions for fall risk with medication changes - Encourage sleep as able, with target to keep patient in appropriate sleep- wake cycle. Daytime naps are limited in length. 08/21 - Li restarted yesterday which is not expected to demonstrate a quick benefit but in deference to long standing treatment and increased risk for ongoing mood instability off the medication. given renal impairment, she will need more frequent monitoring but the potential benefit is felt to outweigh the risk given the severity of her underlying mental health d/o. I would suggest maintaining this very low dose and checking a level on the (which I ordered today) before further titration. - sleeping more in last 24h getting high dose Thorazine which, unfortunately , may also be making her delirious. I am uncertain if she has been treated with high dose seroquel previously but that could be considered as an alternative if she struggles to tolerate the Thorazine moving forward. - will increase melatonin to 9mg qhs for additional sleep benefit with minimal risk for worsening delirium. could also consider temporarily maximizing ambien at 10mg but will defer for today 2/2 delirium as sleep is presently improving which will hopefully show antimanic effect. 08/22 - Continue on Thorazine, Vraylar, [place], and Klonopin. [place] level ordered for 08/25. - Will attempt to develop plan to decrease low-dose polypharmacy; Pt's significant other hesitant for other medication changes and is unwilling for ECT at this time - Continue delirium protocol with encouraging appropriate sleep/wake cycles 08/23 -Continue environmental and behavioral interventions for delirium, reviewed her medications and attempting to eliminate unnecessary medications ( cholestyramine discontinued as she was refusing it and not acutely important). -Try to consolidate sleep at night; continue melatonin 9 mg, clonazepam 2.5 mg, zolpidem 5 mg, and chlorpromazine 200 mg at bedtime. -Continue Vraylar 6 mg every morning (started 08/12/2017). -Continue trihexyphenidyl 1 mg every morning for akathisia. -[place] 150 mg at bedtime restarted 08/20/2017; level and BMP ordered for . 08/24 1. DC Vraylar- Has not shown any improvement since added 2. DC Thorazine- No significant improvement and contributing to anticholinergic load 3. DC Artane- Difficult to tell whether she is restless or whether restlessness is due to stefan, and concern for anticholinergic load 4. DC Ambien- Can contribute to confusion, especially in women 5. DC Vistaril- due to concerns for anticholinergic load 6. Retrial Depakote ER 500 mg. HS titrated to therapeutic level. Has been on this in the past but reports from pt and Alex provide different memories of it. 7. Trial Zyprexa- Will start low with 5 mg due to long half life of Vraylar , to target stefan 8. Continue lithium low dose, re-added due to concerns that withdrawing it after she has been on it for years has contributed to deterioration. Caution to renal status 9. Continue Klonopin 10. Continue Tramadol prn, but have encouraged nursing to use it only sparingly. 08/25 -Increase olanzapine to 7.5mg HS and prn to 5mg. -[place] trough 0.3; creatinine and BUN up slightly at 30 and 1.77. Continue to encourage adequate hydration, and will recheck lithium trough and BMP in 4 days. -Continue Depakote 500 mg nightly, and check a Depakote trough on 08/29/2017. -Consideration for ECT stefan, psychosis, and delirium do not improve. 08/26 -Increase HS zyprexa to 10 mg. continue prn's - Continue to encourage hydration - Continue depakote with level 08/29 - Will obtain CBC and UA to rule out UTI, dyscrasia - Continue to consider ECT if no improvement 08/27 --continue Zyprexa titration to 15 mg po qhs, d/c prn doses as no apparently benefit; given longstanding rx with a typical antipsychotic (Navane) and some response to Haldol prn, trial of Trilafon prn agitation. --restlessness appears to be related to catatonia in my opinion rather than akathisia. That said, will offer prn beta brad as trial for comfort, BP has been elevated anyway, would prefer to implement this rather than increasing Cozaar acutely --no clear benefit from hs clonazepam and treatment of choice for catatonia is lorazepam so taper Klonopin in favor of Ativan TID + prn. Remains on 1-on-1 for falls precautions. 08/28 --continue Zyprexa titration to 20 mg po qhs --may use propranolol TID prn --replace HS Klonopin with 2 mg Ativan as appears more effective 08/29 - Continue Zyprexa 20mg qHS, propranolol TID prn, Ativan 2mg qHS, and prn Trilafon - Recent labs reviewed: Li level = 0.4; Depakote level = 27 - BUN elevated at 36, creatinine elevated at 1.88. GFR = 27.5. - Due to progressive worsening of kidney function and apparent improvement with addition of other agents, will discontinue [place] at this time. - Increase Depakote to 750mg tonight. Depakote trough level ordered for 2017. 08/30 - Continue current meds with the exception of stopping AM ativan due to sedation, and concerns for fall risk 08/31 -Continue current medications, including Lorazepam 1 mg q. 1200 and 1700 hrs. and 2 mg at bedtime, Depakote 750 mg nightly, olanzapine 20 mg nightly, propanolol 20 mg 3 times daily as needed for restlessness, perphenazine 4 mg as needed for agitation, and melatonin 9 mg at bedtime. -Continue one-to-one monitoring. 09/01 - Continue current meds and plan including 1:1 09/02 - Add Trilafon 4 mg. TID 09/03 - increase trilafon to and pending VPA level and BMP on 09/04, will add CBC due to BRBPR yesterday due to hemrrhoids, and TSH (see below). will watch her sedation and if sedated will lower ativan 09/04/17 - patient is not showing tangible gains from this provider's review of chart and observation over last 2 days. Nursing staff felt she was less pervasively agitated on 09/03, and but she seems to continue to demonstrate pattern of delirium (waxing and waning mental state with fragmented sleep, hallucinations and waking in anxious state disoriented, labile) The inpatient team has done a heroic job of caring for this woman who has very complicated and refractory primary mental health condition and what appears to be superimposed delirium her prognosis is poor. She did best on lithium as a component of her treatment to date. Review of record is that patient's kidney function (creatinine and BUN) worsened on lithium earlier this month, but at 150mg/hs for 7days she had two of her best days inpatient on 08/29 (date of discontinuation), and 08/30 (day after discontinuation) even though her level was only 0.4 on 08/29. I will discuss with primary team as there are very serious risks of returning to lithium. - it is not clear if remeron provided an improvement for patient last night, or it was the last of a series of several sedating medications. Although it is optimal in delirium to keep up in the day and sleep at night, given she is only getting 1-4hours/night it is hard to justify waking her only for her to be agitated in the day today. Will discuss with staff and attempt to keep her up to a degree possible with light cues and stimulus in the day and lower stimulus at night - continue trilafon for now scheduled with PRN, she did require less in the last 24hours than the preceding day but it remains to be see if that is improvement - increase Depakote from 750 (level 57, free level pending) to 1000mg tonight repeat level ordered for 09/09/17 AM - she is anemic, stably so compared to 07/2017, but will draw ferritin, transferin and transferrin Saturation and TIBC to r/o iron deficiency as contributing to RLS as she is anemic, would replete with oral iron if this returns low, will discus with primary team as vitamin E may impair the response for her iron deficiency anemia - consider MVI in place of vitamin E (as not to over- dose with time) - avoid anticholinergics - she remains on benzodiazepines at this time (combination of scheduled and prns getting 5-6mg/day in the last 2 days), and although there was prior speculation of agitated catatonia in the chart it is not clear to me that the current prn doses are meaningfully helpful and can worsen delirium. Will maintain scheduled ativan 1mg 12, 1mg 1700 and 2mg/hs but stop the prn doses, and prefer trilafon prn psychosis/agitation - will not write for standing dose of remeron but if staff call again this evening after scheduled medications and patient is not sleeping would consider again giving 7.5mg remeron with caution monitoring for oversedation and future mood elevation, and watch RLS - will ask staff to get a clock drawing for goal of serial clock drawings overtime can assist in tracking delirium recovery 09/05 -Continue Depakote 1000 mg nightly, with a repeat trough level on 09/09/2017. -Continue olanzapine 20 mg nightly, perphenazine 4 mg twice daily and 8 mg nightly, and decrease Lorazepam to 1 mg q. 1700 and 2 mg nightly (discontinuing the 1 mg dose at noon). Continue perphenazine and propanolol as needed's. 09/06 - AM sedation, but poor sleep at night. Shift trilafon to 4 mg. at 1400 and 12 mg. HS (2) Chronic kidney disease (CKD) 08/11 - DC lithium. Will attempt to stabilize mood with atypicals - Collaborate with Dr. Ovalles as needed 08/20 - Restart [place] at 150mg qHS in attempt to stabilize mood and target manic behaviors. Ideally would be used in the short-term until response to Vraylar is more evident; however, patient is known to have responded well in the past. 08/21 - increase losartan to 50mg for persistently elevated BP's 08/23 -Low-dose lithium resumed 08/20/2017 due to acute worsening of psychiatric symptoms thought possibly due to discontinuation of lithium after being on it for many years. [place] trough and BMP ordered for 08/25/2017. 08/25 -[place] trough level 0.3, BUN 30, creatinine 1.77. These are up slightly from 08/10/2017, 1 BUN was 23 and creatinine 1.46. We will continue to monitor closely, ensure adequate hydration, and recheck in 4 days. If kidney function worsens, we will need to discontinue the lithium, as previously discussed with nephrology (Dr. Foreman on 07/25/2017). 08/29 - Labs reviewed: Li level = 0.4. BUN and Cr elevated at 36 and 1.88 respectively. GFR as outpatient progressively decreasing from 43.6 to 38.3. Most recent GFR = 27.5 - Will d/c [place] in favor of Depakote titration 08/31 -Will recheck BMP on 09/04/2017 to monitor kidney function. Continue to encourage fluids. 09/04 - Cr 1.48 and BUN 23, continue to encourage fluids (3) Hypothyroidism 08/11 - TSH WNL and not on levothyroxine. - May have had abnl values in the past related to being on lithium 08/26 - BP elevated. Will increase Cozaar to 75 mg. daily - VS BID 09/03/17 - will add TSH to labs for tomorrow given exopthalamos, h/o hypothyroid and not on levothyroxine 09/04 TSH WNL (4) Hyperlipemia 08/11 - Continue home dose of atorvastatin - FLP done 07/24 08/23 -Patient intermittently refusing cholestyramine; discontinue for now as also on atorvastatin and trying to limit polypharmacy. (5) Hypertension 08/31 -has been persistently hypertensive for the past several days, and intermittently hypertensive throughout her stay. No known history of hypertension, and EKG on 08/19/2017 was normal sinus rhythm. Consider need for hospitalist assistance if hypertension persists. 09/03 - normotensive this AM was hypertensive last evening but may also correlate with values taken at time of agitation, will monitor closely, Temp is not elevated and will check WBC tomorrow, do not think this is related to malignant catatonia at this time 09/04 - BP varies high in the evening and lower in the day, continue to monitor closely Discharge / Aftercare Planning Primary Care Physician: Name: Santos JACKSON [employer] Appointment Notes: [id number] [place] [address] Psychiatrist: Name: Dr. Hahn, [facility] Appointment Notes: [address] [place] [id number] Therapist: Name: Greyson Silverio [facility] Appointment Notes: [address] [place] [id number] Corn Picker: Name: Zulay Macias Home Health Services: Home Health Services: social worker aide, home health agency Home Health Agency: [facility] Specialist: Name: Dr. Demarcus Ovalles, Informatics Manager [facility] [place] [facility] Phone Number: [phone] Date of Appointment: Oct 21, 2017 Time of Appointment: 1:15pm Visit Code E&M Code: 09163 Inventory Assets Strengths: Support from partner, good relationship with outpatient provider Needs: Clarity with her medications Risk Factors Assessment : Yes /single/: No Higher / Fall in social status: No Access to guns: No Health problems: Yes Mental Health Diagnoses: Yes Substance use disorders: No Previous attempt: Yes Family history of suicide: Yes Previous psychiatric stay: Yes Hopelessness: No Smoker: No Protective Factors Assessment : No Responsible for young children: No Employed: No Stable relationships: Yes Supportive family: Yes Good rapport with provider: Yes Data Vital Signs Last 24 Hrs: Date Time Temp Pulse Resp B/P (MAP) Pulse Ox O2 Delivery O2 Flow Rate FiO2 09/06/17 07:00 36.4 97 18 105/69 (81) 98 122/75 (91) 09/05/17 21:07 94 18 138/86 (103) Meds Administered Last 24 Hrs: Meds Administered (Past 24Hrs) Medications (Trade) Dose Ordered Sig/Kelsey Route Start Time Stop Time Status Last Admin Dose Admin Divalproex Sodium (Depakote Extended Rel Tab) 1,000 mg HS PO 09/04/17 22:00 09/23/17 21:59 09/05/17 21:44 1,000 MG Mirtazapine (Remeron Tab) 7.5 mg NOW STAT PO 09/05/17 03:49 09/05/17 03:50 DC 09/05/17 03:54 7.5 MG Lorazepam (Ativan Tab) 1 mg DAILY@1700 PO 09/05/17 17:00 09/29/17 16:59 09/05/17 17:06 1 MG Lab Results Last 24 Hrs: 09/04/17 09:09 Red Blood Count 3.43, Mean Corpuscular Volume 89.2, Mean Corpuscular Hemoglobin 29.2, Mean Corpuscular Hemoglobin Concent 32.7, Mean Platelet Volume 9.6, Neutrophils (%) (Auto) 69.8, Lymphocytes (%) (Auto) 18.6, Monocytes (%) (Auto) 8.7, Eosinophils (%) (Auto) 1.5, Basophils (%) (Auto) 0.2, Neutrophils # (Auto) 2.81, Lymphocytes # (Auto) 0.75, Monocytes # (Auto) 0.35, Eosinophils # (Auto) 0.06, Basophils # (Auto) 0.01 09/04/17 09:09 Test 08/10/17 12:35 08/10/17 12:56 08/26/17 00:00 08/29/17 09:07 Urine Opiates Screen NEG (NEG) Urine Methadone, Qualitative NEG (NEG) Urine Barbiturates NEG (NEG) Urine Phencyclidine (PCP) Level NEG (NEG) Ur Amphetamine/Methamphetamine NEG (NEG) MDMA (Ecstasy) Screen NEG (NEG) Urine Benzodiazepines Screen NEG (NEG) Urine Cocaine Metabolite NEG (NEG) Urine Marijuana (THC) NEG (NEG) Total Bilirubin 0.3 mg/dl (0.2-1) Aspartate Amino Transf (AST/SGOT) 22 U/L (15-37) Alanine Aminotransferase (ALT/SGPT) 49 U/L (12-78) Alkaline Phosphatase 130 U/L (45-117) Total Protein 7.2 gm/dl (6.4-8.2) Albumin 3.4 gm/dl (3.4-5.0) Globulin 3.8 gm/dl (2.5-4.0) Albumin/Globulin Ratio 0.9 (0.9-2) Salicylates Level < 1.7 mg/dl (2.8-20) Acetaminophen Level < 2 ug/ml (10-30) Ethyl Alcohol mg/dL < 3.0 mg/dl (0-3) Urine Color YELLOW Urine Appearance CLEAR (CLEAR) Urine pH 6.0 (4.5-7.5) Urine Specific [place] 1.009 (1.000-1.030) Urine Protein 1+ (NEG) Urine Glucose (UA) NEG (NEG) Urine Ketones NEG (NEG) Urine Occult Blood NEG (NEG) Urine Nitrite NEG (NEG) Urine Bilirubin NEG (NEG) Urine Urobilinogen NEG (NEG) Urine Leukocyte Esterase MODERATE (NEG) Urine WBC (Auto) 1-5 /hpf (0-5) Urine RBC (Auto) 0-4 /hpf (0-4) Urine Hyaline Casts (Auto) 0 /lpf (0-5) Urine Epithelial Cells (Auto) 5-10 /lpf (0-5) Urine Bacteria (Auto) NEG (NEG) [place] Level 0.4 mMOL/L (0.6-1.2) Test 09/04/17 09:09 White Blood Count 4.03 K/uL (4.8-10.8) Red Blood Count 3.43 M/uL (4.2-5.4) Hemoglobin 10.0 g/dL (12.0-16.0) Hematocrit 30.6 % (37-47) Mean Corpuscular Volume 89.2 fL (80-100) Mean Corpuscular Hemoglobin 29.2 pg (25-34) Mean Corpuscular Hemoglobin Concent 32.7 g/dl (32-36) Platelet Count 171 K/uL (130-400) Mean Platelet Volume 9.6 fL (7.4-10.4) Neutrophils (%) (Auto) 69.8 % Lymphocytes (%) (Auto) 18.6 % Monocytes (%) (Auto) 8.7 % Eosinophils (%) (Auto) 1.5 % Basophils (%) (Auto) 0.2 % Neutrophils # (Auto) 2.81 K/uL (1.4-6.5) Lymphocytes # (Auto) 0.75 K/uL (1.2-3.4) Monocytes # (Auto) 0.35 K/uL (0.11-0.59) Eosinophils # (Auto) 0.06 K/uL (0-0.5) Basophils # (Auto) 0.01 K/uL (0-0.2) RDW Standard Deviation 46.9 fL (36.4-46.3) RDW Coefficient of Variation 14.3 % (11.5-14.5) Immature Granulocyte % (Auto) 1.2 % Immature Granulocyte # (Auto) 0.05 K/uL (0.00-0.02) Anion Gap 6.0 mmol/L (3-11) Est Creatinine Clear Calc Drug Dose 30.7 ml/min Estimated GFR () 42.6 Estimated GFR (Non- 36.8 BUN/Creatinine Ratio 15.3 (10-20) Calcium Level 9.0 mg/dl (8.5-10.1) Iron Level 64 mcg/dl (35-150) Total Iron Binding Capacity 304 mcg/dl (250-450) Transferrin 261 mg/dl (200-360) Transferrin % Saturation 17 % (15-50) Ferritin 156.5 ng/ml (8.0-388.0) Thyroid Stimulating Hormone (TSH) 1.710 uIu/ml (0.300-4.500) Valproic Acid (Depakene) Level 57 mcg/ml (50-100) Date/Time Source Procedure Growth Status 08/26/17 00:00 Urine , Clean Catch Urine Culture - Final MORE THAN THREE TYPES OF ORGANISMS HI... Complete Problem Qualifiers (1) Chronic kidney disease (CKD): Chronic kidney disease stage: stage 1 Qualified Codes: N18.1 - Chronic kidney disease, stage 1
[2017-09-06 10:31] VITALS: BP 130/75; PULSE 96; TEMP 37.1
[2017-09-06] MEDS: BENZOCAINE 20% (ORAJEL) 11.9 GM TUBE MT PRN (13:26)
[2017-09-06] MEDS: LORAZEPAM 1 MG TAB PO SCH (16:25)
[2017-09-06] MEDS: OLANZAPINE 20 MG TAB PO SCH (20:52)
[2017-09-06] MEDS: MELATONIN 3 MG PO SCH (20:55)
[2017-09-06] MEDS: ATORVASTATIN 10 MG TAB PO SCH (20:55)
[2017-09-06] MEDS: DIVALPROEX 500 MG EXTENDED RELEASE TAB PO SCH (20:55)
[2017-09-06] MEDS: LORAZEPAM 2 MG TAB PO SCH (20:56)
[2017-09-06 21:14] VITALS: BP_SYST 147; BP_SYST 150; BP_DIAS 77; BP_DIAS 84; PULSE 108; PULSE 114; TEMP 37.9
[2017-09-07 06:42] VITALS: BP_SYST 121; BP_SYST 127; BP_DIAS 78; BP_DIAS 79; PULSE 102; PULSE 109; TEMP 36.9
[2017-09-07] MEDS: LOSARTAN POTASSIUM 25 MG TAB PO SCH (07:36)
[2017-09-07] MEDS: CEROVITE ADV FORMULA TAB PO SCH (07:36)
[2017-09-07] MEDS: PANTOprazole SOD 40 MG TAB PO SCH (07:36)
[2017-09-07] MEDS: MONTELUKAST SOD 10 MG TAB PO SCH (07:36)
[2017-09-07] MEDS: TOCOPHERYL, DL-ALPHA 400 INTER.UNIT CAP PO SCH (07:36)
[2017-09-07] MEDS: OMEGA-3 (PURIFIED FISH OIL) 1 GM CAP PO SCH ×2 (07:36→21:13)
--- NOTE | 2017-09-07 09:40 | Psychiatric Progress Notes ---
Progress Note Date of Service September 07, 2017. Interval History 67-year-old woman readmitted voluntarily for psychotic stefan 3 days after last hospitalization. She has been increasingly nonsensical and disorganized despite multiple med trials, complicated by delirium. Chief Complaint "How am I?" Subjective Patient was seen & assessed interval progress reviewed with Treatment Team. Staff report she did better yesterday, was less emotional and agitated and thoughts were more organized, and allowed staff to assist her with a shower. She did scream in the water initially touched her, but then calm down. She will let staff to wash her hair. She has been eating without assistance, but requires assistance for ambulation and bathing. She slept 5.25 hours overnight , a significant improvement compared to the past 5 nights, which were all less than 3 hours. Today, she was seen with Aníbal Owens MS4. She was initially seated in the day area, filling out her menu, it was noted to be circling numerous items and driving all over the menu. Attempted to communicate with her by writing down questions, and she gave limited responses, then abruptly stood up and walked rapidly to the light switch, appeared to be attempting to turn all the lights off. She was wearing dark glasses, and moaning incoherently. Staff assisted her to her room and put her hearing aid back in, but she still appears to have significant difficulty understanding what people are saying. Multiple attempts to interview her were unsuccessful, although she did say she felt "like a piece of dust" when asked how she was feeling. She was assisted to lie down in bed and was resting. Sleep Information Total Hours of Sleep: 5.25 Meal Information Percent of Breakfast Consumed: 100 Percent of Lunch Consumed: 80 Percent of Dinner Consumed: 90 Mental Status Exam During interview pt is: other (Partially cooperative, psychomotorically agitated) Appearance: appropriately dressed, appropriately groomed Eye contact is: poor Motor behavior is: psychomotor agitation Speech: other (Incoherent at times) Affect: other (Labile-initially calm, then abruptly got up and was agitated for unclear reason) Mood is: other ("Like a piece of dust.") Thought process: goal directed, other (goal directed at times, other times loose, disorganized, answering with unrelated information.) Cognition: other (all spheres impaired) Intelligence estimated to be: average Insight: severely impaired Judgement: severely impaired Impression Some slow progress in recent days, with better sleep last night, but still has periods of incoherence and agitation. We are attempting to minimize morning medications and shift sedating medications to bedtime to consolidate sleep and decrease fall risk. Plan (1) Bipolar 1 disorder with mixed features 08/11 - Increase Klonopin back to 1.5 mg HS to target sleep - Will DC lithium at this point due to concerns for her age and renal status - Will increase Risperdal to 1 mg. AM and 7 mg HS - Will DC navane to reduce polypharmacy - Continue prn haldol and increase to q 4 hr prn - Will have nursing attempt to preauth Vraylar to trial - DC Zoloft - Q 15 min checks for safety - Encourage participation in group and individual counseling as tolerated - Coordinate with current providers - had FLP and FBS on 07/23/17. All WNL with the exception of triglycerides of 151 and FBS 129 08/12 - Vraylar trial when Alex can bring it in - Start 1.5 mg daily increasing to 3 mg daily the following day. - Will taper risperdal at the same time 08/13 -Vraylar was actually started at 3mg hs on 08/12 since only 3mg capsules for supply. given s/e profile will move vraylar to earlier in day, will maintain pt at 3mg for time being given long half life of med and long half life of active metabolite tapering risperdal maintained at 1mg am and 3mg hs for now since just lowered by 4mg continue prn haldol doses 08/14 -maintained vraylar 3mg qday -maintained risperdal 1mg am and 3mg hs for now, aim to wean risperdal further as adjusting to vraylar over next days 08/15 - Continue Vraylar 3mg daily - Plan to continue to taper risperdal, however patient appears to be displaying more restlessness today in regard to manic behaviors and requiring redirection from staff and prn Haldol more frequently. - Attempt to determine proximity to baseline with visits from her fiance 08/16 - Vraylar increased to 6mg daily 08/17 - Discontinue risperidone due to inefficacy, and increase Haldol prn to 10mg. - Resume trihexphenidyl at 1mg daily and monitor restlessness as able. Challenging to know if her agitation is due to akathisia, anxiety, psychosis, or stefan, and she is a limited historian. 08/18 - DC haldol due to no response - Start Thorazine 25 mg. q 2 hr prn during the day and 100 mg. scheduled at HS 08/19 - Increase thorazine to 50 q 3 hr prn and 200 mg. HS - Try to maintain good sleep wake cycles - EKG today 08/20 - 150mg of [place] to be added this evening to stabilize mood in interim of response to Vraylar, level in 5 days to monitor for possible toxicity. - Increase Klonopin to 2.5mg qHS to better target sleep. Pt remains on 1-to- 1 observation currently, continue safety precautions for fall risk with medication changes - Encourage sleep as able, with target to keep patient in appropriate sleep- wake cycle. Daytime naps are limited in length. 08/21 - Li restarted yesterday which is not expected to demonstrate a quick benefit but in deference to long standing treatment and increased risk for ongoing mood instability off the medication. given renal impairment, she will need more frequent monitoring but the potential benefit is felt to outweigh the risk given the severity of her underlying mental health d/o. I would suggest maintaining this very low dose and checking a level on the (which I ordered today) before further titration. - sleeping more in last 24h getting high dose Thorazine which, unfortunately , may also be making her delirious. I am uncertain if she has been treated with high dose seroquel previously but that could be considered as an alternative if she struggles to tolerate the Thorazine moving forward. - will increase melatonin to 9mg qhs for additional sleep benefit with minimal risk for worsening delirium. could also consider temporarily maximizing ambien at 10mg but will defer for today 2/2 delirium as sleep is presently improving which will hopefully show antimanic effect. 08/22 - Continue on Thorazine, Vraylar, [place], and Klonopin. [place] level ordered for 08/25. - Will attempt to develop plan to decrease low-dose polypharmacy; Pt's significant other hesitant for other medication changes and is unwilling for ECT at this time - Continue delirium protocol with encouraging appropriate sleep/wake cycles 08/23 -Continue environmental and behavioral interventions for delirium, reviewed her medications and attempting to eliminate unnecessary medications ( cholestyramine discontinued as she was refusing it and not acutely important). -Try to consolidate sleep at night; continue melatonin 9 mg, clonazepam 2.5 mg, zolpidem 5 mg, and chlorpromazine 200 mg at bedtime. -Continue Vraylar 6 mg every morning (started 08/12/2017). -Continue trihexyphenidyl 1 mg every morning for akathisia. -[place] 150 mg at bedtime restarted 08/20/2017; level and BMP ordered for . 08/24 1. DC Vraylar- Has not shown any improvement since added 2. DC Thorazine- No significant improvement and contributing to anticholinergic load 3. DC Artane- Difficult to tell whether she is restless or whether restlessness is due to stefan, and concern for anticholinergic load 4. DC Ambien- Can contribute to confusion, especially in women 5. DC Vistaril- due to concerns for anticholinergic load 6. Retrial Depakote ER 500 mg. HS titrated to therapeutic level. Has been on this in the past but reports from pt and Alex provide different memories of it. 7. Trial Zyprexa- Will start low with 5 mg due to long half life of Vraylar , to target stefan 8. Continue lithium low dose, re-added due to concerns that withdrawing it after she has been on it for years has contributed to deterioration. Caution to renal status 9. Continue Klonopin 10. Continue Tramadol prn, but have encouraged nursing to use it only sparingly. 08/25 -Increase olanzapine to 7.5mg HS and prn to 5mg. -Watts[place] trough 0.3; creatinine and BUN up slightly at 30 and 1.77. Continue to encourage adequate hydration, and will recheck lithium trough and BMP in 4 days. -Continue Depakote 500 mg nightly, and check a Depakote trough on 08/29/2017. -Consideration for ECT stefan, psychosis, and delirium do not improve. 08/26 -Increase HS zyprexa to 10 mg. continue prn's - Continue to encourage hydration - Continue depakote with level 08/29 - Will obtain CBC and UA to rule out UTI, dyscrasia - Continue to consider ECT if no improvement 08/27 --continue Zyprexa titration to 15 mg po qhs, d/c prn doses as no apparently benefit; given longstanding rx with a typical antipsychotic (Navane) and some response to Haldol prn, trial of Trilafon prn agitation. --restlessness appears to be related to catatonia in my opinion rather than akathisia. That said, will offer prn beta brad as trial for comfort, BP has been elevated anyway, would prefer to implement this rather than increasing Cozaar acutely --no clear benefit from hs clonazepam and treatment of choice for catatonia is lorazepam so taper Klonopin in favor of Ativan TID + prn. Remains on 1-on-1 for falls precautions. 08/28 --continue Zyprexa titration to 20 mg po qhs --may use propranolol TID prn --replace HS Klonopin with 2 mg Ativan as appears more effective 08/29 - Continue Zyprexa 20mg qHS, propranolol TID prn, Ativan 2mg qHS, and prn Trilafon - Recent labs reviewed: Li level = 0.4; Depakote level = 27 - BUN elevated at 36, creatinine elevated at 1.88. GFR = 27.5. - Due to progressive worsening of kidney function and apparent improvement with addition of other agents, will discontinue [place] at this time. - Increase Depakote to 750mg tonight. Depakote trough level ordered for 2017. 08/30 - Continue current meds with the exception of stopping AM ativan due to sedation, and concerns for fall risk 08/31 -Continue current medications, including Lorazepam 1 mg q. 1200 and 1700 hrs. and 2 mg at bedtime, Depakote 750 mg nightly, olanzapine 20 mg nightly, propanolol 20 mg 3 times daily as needed for restlessness, perphenazine 4 mg as needed for agitation, and melatonin 9 mg at bedtime. -Continue one-to-one monitoring. 09/01 - Continue current meds and plan including 1:1 09/02 - Add Trilafon 4 mg. TID 09/03 - increase trilafon to and pending VPA level and BMP on 09/04, will add CBC due to BRBPR yesterday due to hemrrhoids, and TSH (see below). will watch her sedation and if sedated will lower ativan 09/04/17 - patient is not showing tangible gains from this provider's review of chart and observation over last 2 days. Nursing staff felt she was less pervasively agitated on 09/03, and but she seems to continue to demonstrate pattern of delirium (waxing and waning mental state with fragmented sleep, hallucinations and waking in anxious state disoriented, labile) The inpatient team has done a heroic job of caring for this woman who has very complicated and refractory primary mental health condition and what appears to be superimposed delirium her prognosis is poor. She did best on lithium as a component of her treatment to date. Review of record is that patient's kidney function (creatinine and BUN) worsened on lithium earlier this month, but at 150mg/hs for 7days she had two of her best days inpatient on 08/29 (date of discontinuation), and 08/30 (day after discontinuation) even though her level was only 0.4 on 08/29. I will discuss with primary team as there are very serious risks of returning to lithium. - it is not clear if remeron provided an improvement for patient last night, or it was the last of a series of several sedating medications. Although it is optimal in delirium to keep up in the day and sleep at night, given she is only getting 1-4hours/night it is hard to justify waking her only for her to be agitated in the day today. Will discuss with staff and attempt to keep her up to a degree possible with light cues and stimulus in the day and lower stimulus at night - continue trilafon for now scheduled with PRN, she did require less in the last 24hours than the preceding day but it remains to be see if that is improvement - increase Depakote from 750 (level 57, free level pending) to 1000mg tonight repeat level ordered for 09/09/17 AM - she is anemic, stably so compared to 07/2017, but will draw ferritin, transferin and transferrin Saturation and TIBC to r/o iron deficiency as contributing to RLS as she is anemic, would replete with oral iron if this returns low, will discus with primary team as vitamin E may impair the response for her iron deficiency anemia - consider MVI in place of vitamin E (as not to over- dose with time) - avoid anticholinergics - she remains on benzodiazepines at this time (combination of scheduled and prns getting 5-6mg/day in the last 2 days), and although there was prior speculation of agitated catatonia in the chart it is not clear to me that the current prn doses are meaningfully helpful and can worsen delirium. Will maintain scheduled ativan 1mg 12, 1mg 1700 and 2mg/hs but stop the prn doses, and prefer trilafon prn psychosis/agitation - will not write for standing dose of remeron but if staff call again this evening after scheduled medications and patient is not sleeping would consider again giving 7.5mg remeron with caution monitoring for oversedation and future mood elevation, and watch RLS - will ask staff to get a clock drawing for goal of serial clock drawings overtime can assist in tracking delirium recovery 09/05 -Continue Depakote 1000 mg nightly, with a repeat trough level on 09/09/2017. -Continue olanzapine 20 mg nightly, perphenazine 4 mg twice daily and 8 mg nightly, and decrease Lorazepam to 1 mg q. 1700 and 2 mg nightly (discontinuing the 1 mg dose at noon). Continue perphenazine and propranolol as needed's. 09/06 - AM sedation, but poor sleep at night. Shift trilafon to 4 mg. at 1400 and 12 mg. HS 09/07 -Continue current medications and one-to-one supervision, private room, and fall precautions. (2) Chronic kidney disease (CKD) 08/11 - DC lithium. Will attempt to stabilize mood with atypicals - Collaborate with Dr. Ovalles as needed 08/20 - Restart [place] at 150mg qHS in attempt to stabilize mood and target manic behaviors. Ideally would be used in the short-term until response to Vraylar is more evident; however, patient is known to have responded well in the past. 08/21 - increase losartan to 50mg for persistently elevated BP's 08/23 -Low-dose lithium resumed 08/20/2017 due to acute worsening of psychiatric symptoms thought possibly due to discontinuation of lithium after being on it for many years. [place] trough and BMP ordered for 08/25/2017. 08/25 -[place] trough level 0.3, BUN 30, creatinine 1.77. These are up slightly from 08/10/2017, 1 BUN was 23 and creatinine 1.46. We will continue to monitor closely, ensure adequate hydration, and recheck in 4 days. If kidney function worsens, we will need to discontinue the lithium, as previously discussed with nephrology (Dr. Foreman on 07/25/2017). 08/29 - Labs reviewed: Li level = 0.4. BUN and Cr elevated at 36 and 1.88 respectively. GFR as outpatient progressively decreasing from 43.6 to 38.3. Most recent GFR = 27.5 - Will d/c [place] in favor of Depakote titration 08/31 -Will recheck BMP on 09/04/2017 to monitor kidney function. Continue to encourage fluids. 09/04 - Cr 1.48 and BUN 23, continue to encourage fluids (3) Hypothyroidism 08/11 - TSH WNL and not on levothyroxine. - May have had abnl values in the past related to being on lithium 08/26 - BP elevated. Will increase Cozaar to 75 mg. daily - VS BID 09/03/17 - will add TSH to labs for tomorrow given exopthalamos, h/o hypothyroid and not on levothyroxine 09/04 TSH WNL (4) Hyperlipemia 08/11 - Continue home dose of atorvastatin - FLP done 07/24 08/23 -Patient intermittently refusing cholestyramine; discontinue for now as also on atorvastatin and trying to limit polypharmacy. (5) Hypertension 08/31 -has been persistently hypertensive for the past several days, and intermittently hypertensive throughout her stay. No known history of hypertension, and EKG on 08/19/2017 was normal sinus rhythm. Consider need for hospitalist assistance if hypertension persists. 09/03 - normotensive this AM was hypertensive last evening but may also correlate with values taken at time of agitation, will monitor closely, Temp is not elevated and will check WBC tomorrow, do not think this is related to malignant catatonia at this time 09/04 - BP varies high in the evening and lower in the day, continue to monitor closely 09/07 - Was normotensive for 2 days, and yesterday evening had elevated blood pressure, but again normal this morning. Continue to monitor. Discharge / Aftercare Planning Primary Care Physician: Name: Santos CRUZNP [facility] Appointment Notes: [address] [place] [address] Psychiatrist: Name: Dr. Hahn, [facility] Psych Clinic Appointment Notes: [address] [place] [address] Therapist: Name: Greyson Silverio [facility] Appointment Notes: [address] [place] [address] Small Lot Operator: Name: Zulay Macias [facility] Services: Home Health Services: social media content manager, home health agency Home Health Agency: [facility] Home Health Specialist: Name: Dr. Demarcus Ovalles, Senior Instrumentation Engineer [facility] [place] Number: [phone] Date of Appointment: Oct 21, 2017 Time of Appointment: 1:15pm Visit Code E&M Code: 54781 Inventory Assets Strengths: Support from partner, good relationship with outpatient provider Needs: Clarity with her medications Risk Factors Assessment : Yes /single/: No Higher / Fall in social status: No Access to guns: No Health problems: Yes Mental Health Diagnoses: Yes Substance use disorders: No Previous attempt: Yes Family history of suicide: Yes Previous psychiatric stay: Yes Hopelessness: No Smoker: No Protective Factors Assessment : No Responsible for young children: No Employed: No Stable relationships: Yes Supportive family: Yes Good rapport with provider: Yes Data Vital Signs Last 24 Hrs: Date Time Temp Pulse Resp B/P (MAP) Pulse Ox O2 Delivery O2 Flow Rate FiO2 09/07/17 06:42 36.9 102 18 127/79 (95) 109 121/78 (92) 09/06/17 21:14 37.9 108 18 150/77 (101) 114 147/84 (105) 09/06/17 10:31 37.1 96 16 130/75 (93) Meds Administered Last 24 Hrs: Meds Administered (Past 24Hrs) Medications (Trade) Dose Ordered Sig/Kelsey Route Start Time Stop Time Status Last Admin Dose Admin Lorazepam (Ativan Tab) 1 mg DAILY@1700 PO 09/05/17 17:00 09/29/17 16:59 09/06/17 16:25 1 MG Perphenazine (Trilafon Tab) 4 mg DAILY@1400 PO 09/06/17 14:00 10/06/17 13:59 09/06/17 13:46 4 MG Perphenazine (Trilafon Tab) 12 mg HS PO 09/06/17 22:00 10/06/17 21:59 09/06/17 20:53 12 MG Benzocaine (Orajel 20% Oral Gel) 1 appln BID PRN MT 09/06/17 12:45 10/06/17 12:44 09/06/17 13:26 1 APPLN Problem Qualifiers (1) Chronic kidney disease (CKD): Chronic kidney disease stage: stage 1 Qualified Codes: N18.1 - Chronic kidney disease, stage 1
[2017-09-07] MEDS: PROPRANOLOL HCL 20 MG TAB PO PRN (11:25)
[2017-09-07] MEDS: PERPHENAZINE 2 MG TAB PO PRN (11:25)
[2017-09-07] MEDS: PERPHENAZINE 2 MG TAB PO SCH ×2 (14:06→21:15)
[2017-09-07] MEDS ORDERED: LORAZEPAM 1 MG TAB PO ONE (14:15)
[2017-09-07] MEDS: LORAZEPAM 1 MG TAB PO SCH (17:12)
[2017-09-07] MEDS: DIVALPROEX 500 MG EXTENDED RELEASE TAB PO SCH (21:11)
[2017-09-07] MEDS: ATORVASTATIN 10 MG TAB PO SCH (21:12)
[2017-09-07] MEDS: MELATONIN 3 MG PO SCH (21:13)
[2017-09-07] MEDS: OLANZAPINE 20 MG TAB PO SCH (21:16)
[2017-09-07] MEDS: LORAZEPAM 2 MG TAB PO SCH (21:19)
[2017-09-07 21:39] VITALS: BP 125/64; PULSE 80; TEMP 37
[2017-09-07] MEDS: BENZOCAINE 20% (ORAJEL) 11.9 GM TUBE MT PRN (21:52)
[2017-09-07] MEDS: TRAMADOL HCL 50 MG TAB PO PRN (21:59)
[2017-09-08 00:05] VITALS: BP 125/74; PULSE 86
[2017-09-08 06:48] VITALS: BP 105/67; PULSE 74; TEMP 36.8
[2017-09-08] MEDS: CEROVITE ADV FORMULA TAB PO SCH (07:26)
[2017-09-08] MEDS: LOSARTAN POTASSIUM 25 MG TAB PO SCH (07:26)
[2017-09-08] MEDS: OMEGA-3 (PURIFIED FISH OIL) 1 GM CAP PO SCH ×2 (07:27→21:03)
[2017-09-08] MEDS: TOCOPHERYL, DL-ALPHA 400 INTER.UNIT CAP PO SCH (07:27)
[2017-09-08] MEDS: PANTOprazole SOD 40 MG TAB PO SCH (07:27)
[2017-09-08] MEDS: MONTELUKAST SOD 10 MG TAB PO SCH (07:27)
--- NOTE | 2017-09-08 09:28 | Psychiatric Progress Notes ---
Progress Note Date of Service September 08, 2017. Interval History 67-year-old woman readmitted voluntarily for psychotic stefan 3 days after last hospitalization. She has been increasingly nonsensical and disorganized despite multiple med trials, complicated by delirium. Chief Complaint "Let's talk.". Subjective Patient was seen & assessed interval progress reviewed with Treatment Team. Nursing reports that she did not sleep much last night. She had a visit from [facility] and during that visit was agitated and put herself on the floor for no reasons and wouldn't get up. Today she is seated on her bed eating breakfast with 1:1 attendant present. She is alert and generally cooperative. She is oriented, but says that she wishes it weren't this year, but wishes it was 10 years in the future. She reports that her mood is "blue", and has had some SI but says that she would never act on it. Several times during the interview she becomes agitated and kicks her bedside stand. 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 She later said "You know I'd never hurt you.". She is denying hallucinations. When asked about her sleep, she says "Sleep is like ", saying that people at night, that's why they call it the Graveyard Shift. She tearfully says that it took her 11 years to get rehospitalized, which makes her sad. She would like to go home, and again gets irritable yelling that she believes in today and not tomorrow. Review of Systems Constitutional: No fever, No chills, No sweats, No weight loss, No weakness, No fatigue, No problem reported ENT: + hearing loss Respiratory: No cough, No sputum, No wheezing, No shortness of breath, No dyspnea on exertion, No dyspnea at rest, No hemoptysis, No problem reported Cardiovascular: No chest pain, No orthopnea, No PND, No edema, No claudication , No palpitations, No problem reported Abdomen: No pain, No nausea, No vomiting, No diarrhea, No constipation, No GI bleeding, No problem reported Musculoskeletal: No joint pain, No muscle pain, No swelling, No calf pain, No problem reported Neurologic: No memory loss, No paralysis, No weakness, No numbness/tingling, No vertigo, No balance problems, No problem reported Psychiatric: + insomnia, + problem reported (irritable, impulsive) Sleep Information Total Hours of Sleep: 2.50 Meal Information Percent of Breakfast Consumed: 65 Percent of Lunch Consumed: 100 Percent of Dinner Consumed: 50 Mental Status Exam During interview pt is: alert and oriented, cooperative Appearance: appropriately dressed, appropriately groomed Eye contact is: good, poor Motor behavior is: psychomotor agitation Speech: other (at times yelling, but speech more clear and articulate) Affect: irritable, other (Labile-initially calm, then abruptly got up and was agitated for unclear reason) Mood is: other ("Blue") Thought process: tangential Thought content: cognitive distortions Suicidal thought are: present, Plan: denied, Intent: denied Homicidal thoughts are: denied Hallucinations: denies auditory, denies visual Cognition: language grossly intact Intelligence estimated to be: average Insight: severely impaired Judgement: severely impaired Impression Poor sleep last night, but today speech is more articulate, she is better able to attend to the conversation. She is irritable and impulsive at times, and on nights when she wakes up, is confused and in need of redirection. WE are making some progress, but she would not be safe to discharge at this time in view of impulsivity, insomnia and fall risk Plan (1) Bipolar 1 disorder with mixed features 08/11 - Increase Klonopin back to 1.5 mg HS to target sleep - Will DC lithium at this point due to concerns for her age and renal status - Will increase Risperdal to 1 mg. AM and 7 mg HS - Will DC navane to reduce polypharmacy - Continue prn haldol and increase to q 4 hr prn - Will have nursing attempt to preauth Vraylar to trial - DC Zoloft - Q 15 min checks for safety - Encourage participation in group and individual counseling as tolerated - Coordinate with current providers - had FLP and FBS on 07/23/17. All WNL with the exception of triglycerides of 151 and FBS 129 08/12 - Vraylar trial when Alex can bring it in - Start 1.5 mg daily increasing to 3 mg daily the following day. - Will taper risperdal at the same time 08/13 -Vraylar was actually started at 3mg hs on 08/12 since only 3mg capsules for supply. given s/e profile will move vraylar to earlier in day, will maintain pt at 3mg for time being given long half life of med and long half life of active metabolite tapering risperdal maintained at 1mg am and 3mg hs for now since just lowered by 4mg continue prn haldol doses 08/14 -maintained vraylar 3mg qday -maintained risperdal 1mg am and 3mg hs for now, aim to wean risperdal further as adjusting to vraylar over next days 08/15 - Continue Vraylar 3mg daily - Plan to continue to taper risperdal, however patient appears to be displaying more restlessness today in regard to manic behaviors and requiring redirection from staff and prn Haldol more frequently. - Attempt to determine proximity to baseline with visits from her fiance 08/16 - Vraylar increased to 6mg daily 08/17 - Discontinue risperidone due to inefficacy, and increase Haldol prn to 10mg. - Resume trihexphenidyl at 1mg daily and monitor restlessness as able. Challenging to know if her agitation is due to akathisia, anxiety, psychosis, or stefan, and she is a limited historian. 08/18 - DC haldol due to no response - Start Thorazine 25 mg. q 2 hr prn during the day and 100 mg. scheduled at HS 08/19 - Increase thorazine to 50 q 3 hr prn and 200 mg. HS - Try to maintain good sleep wake cycles - EKG today 08/20 - 150mg of Ray to be added this evening to stabilize mood in interim of response to Vraylar, level in 5 days to monitor for possible toxicity. - Increase Klonopin to 2.5mg qHS to better target sleep. Pt remains on 1-to- 1 observation currently, continue safety precautions for fall risk with medication changes - Encourage sleep as able, with target to keep patient in appropriate sleep- wake cycle. Daytime naps are limited in length. 08/21 - Li restarted yesterday which is not expected to demonstrate a quick benefit but in deference to long standing treatment and increased risk for ongoing mood instability off the medication. given renal impairment, she will need more frequent monitoring but the potential benefit is felt to outweigh the risk given the severity of her underlying mental health d/o. I would suggest maintaining this very low dose and checking a level on the (which I ordered today) before further titration. - sleeping more in last 24h getting high dose Thorazine which, unfortunately , may also be making her delirious. I am uncertain if she has been treated with high dose seroquel previously but that could be considered as an alternative if she struggles to tolerate the Thorazine moving forward. - will increase melatonin to 9mg qhs for additional sleep benefit with minimal risk for worsening delirium. could also consider temporarily maximizing ambien at 10mg but will defer for today 2/2 delirium as sleep is presently improving which will hopefully show antimanic effect. 08/22 - Continue on Thorazine, Vraylar, Ray, and Klonopin. Ray level ordered for 08/25. - Will attempt to develop plan to decrease low-dose polypharmacy; Pt's significant other hesitant for other medication changes and is unwilling for ECT at this time - Continue delirium protocol with encouraging appropriate sleep/wake cycles 08/23 -Continue environmental and behavioral interventions for delirium, reviewed her medications and attempting to eliminate unnecessary medications ( cholestyramine discontinued as she was refusing it and not acutely important). -Try to consolidate sleep at night; continue melatonin 9 mg, clonazepam 2.5 mg, zolpidem 5 mg, and chlorpromazine 200 mg at bedtime. -Continue Vraylar 6 mg every morning (started 08/12/2017). -Continue trihexyphenidyl 1 mg every morning for akathisia. -Ray 150 mg at bedtime restarted 08/20/2017; level and BMP ordered for . 08/24 1. DC Vraylar- Has not shown any improvement since added 2. DC Thorazine- No significant improvement and contributing to anticholinergic load 3. DC Artane- Difficult to tell whether she is restless or whether restlessness is due to stefan, and concern for anticholinergic load 4. DC Ambien- Can contribute to confusion, especially in women 5. DC Vistaril- due to concerns for anticholinergic load 6. Retrial Depakote ER 500 mg. HS titrated to therapeutic level. Has been on this in the past but reports from pt and Alex provide different memories of it. 7. Trial Zyprexa- Will start low with 5 mg due to long half life of Vraylar , to target stefan 8. Continue lithium low dose, re-added due to concerns that withdrawing it after she has been on it for years has contributed to deterioration. Caution to renal status 9. Continue Klonopin 10. Continue Tramadol prn, but have encouraged nursing to use it only sparingly. 08/25 -Increase olanzapine to 7.5mg HS and prn to 5mg. -Ray trough 0.3; creatinine and BUN up slightly at 30 and 1.77. Continue to encourage adequate hydration, and will recheck lithium trough and BMP in 4 days. -Continue Depakote 500 mg nightly, and check a Depakote trough on 08/29/2017. -Consideration for ECT stefan, psychosis, and delirium do not improve. 08/26 -Increase HS zyprexa to 10 mg. continue prn's - Continue to encourage hydration - Continue depakote with level 08/29 - Will obtain CBC and UA to rule out UTI, dyscrasia - Continue to consider ECT if no improvement 08/27 --continue Zyprexa titration to 15 mg po qhs, d/c prn doses as no apparently benefit; given longstanding rx with a typical antipsychotic (Navane) and some response to Haldol prn, trial of Trilafon prn agitation. --restlessness appears to be related to catatonia in my opinion rather than akathisia. That said, will offer prn beta brad as trial for comfort, BP has been elevated anyway, would prefer to implement this rather than increasing Cozaar acutely --no clear benefit from hs clonazepam and treatment of choice for catatonia is lorazepam so taper Klonopin in favor of Ativan TID + prn. Remains on 1-on-1 for falls precautions. 08/28 --continue Zyprexa titration to 20 mg po qhs --may use propranolol TID prn --replace HS Klonopin with 2 mg Ativan as appears more effective 08/29 - Continue Zyprexa 20mg qHS, propranolol TID prn, Ativan 2mg qHS, and prn Trilafon - Recent labs reviewed: Li level = 0.4; Depakote level = 27 - BUN elevated at 36, creatinine elevated at 1.88. GFR = 27.5. - Due to progressive worsening of kidney function and apparent improvement with addition of other agents, will discontinue Ray at this time. - Increase Depakote to 750mg tonight. Depakote trough level ordered for 2017. 08/30 - Continue current meds with the exception of stopping AM ativan due to sedation, and concerns for fall risk 08/31 -Continue current medications, including Lorazepam 1 mg q. 1200 and 1700 hrs. and 2 mg at bedtime, Depakote 750 mg nightly, olanzapine 20 mg nightly, propanolol 20 mg 3 times daily as needed for restlessness, perphenazine 4 mg as needed for agitation, and melatonin 9 mg at bedtime. -Continue one-to-one monitoring. 09/01 - Continue current meds and plan including 1:1 09/02 - Add Trilafon 4 mg. TID 09/03 - increase trilafon to and pending VPA level and BMP on 09/04, will add CBC due to BRBPR yesterday due to hemrrhoids, and TSH (see below). will watch her sedation and if sedated will lower ativan 09/04/17 - patient is not showing tangible gains from this provider's review of chart and observation over last 2 days. Nursing staff felt she was less pervasively agitated on 09/03, and but she seems to continue to demonstrate pattern of delirium (waxing and waning mental state with fragmented sleep, hallucinations and waking in anxious state disoriented, labile) The inpatient team has done a heroic job of caring for this woman who has very complicated and refractory primary mental health condition and what appears to be superimposed delirium her prognosis is poor. She did best on lithium as a component of her treatment to date. Review of record is that patient's kidney function (creatinine and BUN) worsened on lithium earlier this month, but at 150mg/hs for 7days she had two of her best days inpatient on 08/29 (date of discontinuation), and 08/30 (day after discontinuation) even though her level was only 0.4 on 08/29. I will discuss with primary team as there are very serious risks of returning to lithium. - it is not clear if remeron provided an improvement for patient last night, or it was the last of a series of several sedating medications. Although it is optimal in delirium to keep up in the day and sleep at night, given she is only getting 1-4hours/night it is hard to justify waking her only for her to be agitated in the day today. Will discuss with staff and attempt to keep her up to a degree possible with light cues and stimulus in the day and lower stimulus at night - continue trilafon for now scheduled with PRN, she did require less in the last 24hours than the preceding day but it remains to be see if that is improvement - increase Depakote from 750 (level 57, free level pending) to 1000mg tonight repeat level ordered for 09/09/17 AM - she is anemic, stably so compared to 07/2017, but will draw ferritin, transferin and transferrin Saturation and TIBC to r/o iron deficiency as contributing to RLS as she is anemic, would replete with oral iron if this returns low, will discus with primary team as vitamin E may impair the response for her iron deficiency anemia - consider MVI in place of vitamin E (as not to over- dose with time) - avoid anticholinergics - she remains on benzodiazepines at this time (combination of scheduled and prns getting 5-6mg/day in the last 2 days), and although there was prior speculation of agitated catatonia in the chart it is not clear to me that the current prn doses are meaningfully helpful and can worsen delirium. Will maintain scheduled ativan 1mg 12, 1mg 1700 and 2mg/hs but stop the prn doses, and prefer trilafon prn psychosis/agitation - will not write for standing dose of remeron but if staff call again this evening after scheduled medications and patient is not sleeping would consider again giving 7.5mg remeron with caution monitoring for oversedation and future mood elevation, and watch RLS - will ask staff to get a clock drawing for goal of serial clock drawings overtime can assist in tracking delirium recovery 09/05 -Continue Depakote 1000 mg nightly, with a repeat trough level on 09/09/2017. -Continue olanzapine 20 mg nightly, perphenazine 4 mg twice daily and 8 mg nightly, and decrease Lorazepam to 1 mg q. 1700 and 2 mg nightly (discontinuing the 1 mg dose at noon). Continue perphenazine and propranolol as needed's. 09/06 - AM sedation, but poor sleep at night. Shift trilafon to 4 mg. at 1400 and 12 mg. HS 09/07 -Continue current medications and one-to-one supervision, private room, and fall precautions. 09/08 - Continue current plan and meds. (2) Chronic kidney disease (CKD) 08/11 - DC lithium. Will attempt to stabilize mood with atypicals - Collaborate with Dr. Ovalles as needed 08/20 - Restart Ray at 150mg qHS in attempt to stabilize mood and target manic behaviors. Ideally would be used in the short-term until response to Vraylar is more evident; however, patient is known to have responded well in the past. 08/21 - increase losartan to 50mg for persistently elevated BP's 08/23 -Low-dose lithium resumed 08/20/2017 due to acute worsening of psychiatric symptoms thought possibly due to discontinuation of lithium after being on it for many years. Ray trough and BMP ordered for 08/25/2017. 08/25 -Ray trough level 0.3, BUN 30, creatinine 1.77. These are up slightly from 08/10/2017, 1 BUN was 23 and creatinine 1.46. We will continue to monitor closely, ensure adequate hydration, and recheck in 4 days. If kidney function worsens, we will need to discontinue the lithium, as previously discussed with nephrology (Dr. Foreman on 07/25/2017). 08/29 - Labs reviewed: Li level = 0.4. BUN and Cr elevated at 36 and 1.88 respectively. GFR as outpatient progressively decreasing from 43.6 to 38.3. Most recent GFR = 27.5 - Will d/c Ray in favor of Depakote titration 08/31 -Will recheck BMP on 09/04/2017 to monitor kidney function. Continue to encourage fluids. 09/04 - Cr 1.48 and BUN 23, continue to encourage fluids (3) Hypothyroidism 08/11 - TSH WNL and not on levothyroxine. - May have had abnl values in the past related to being on lithium 08/26 - BP elevated. Will increase Cozaar to 75 mg. daily - VS BID 09/03/17 - will add TSH to labs for tomorrow given exopthalamos, h/o hypothyroid and not on levothyroxine 09/04 TSH WNL (4) Hyperlipemia 08/11 - Continue home dose of atorvastatin - FLP done 07/24 08/23 -Patient intermittently refusing cholestyramine; discontinue for now as also on atorvastatin and trying to limit polypharmacy. (5) Hypertension 08/31 -has been persistently hypertensive for the past several days, and intermittently hypertensive throughout her stay. No known history of hypertension, and EKG on 08/19/2017 was normal sinus rhythm. Consider need for hospitalist assistance if hypertension persists. 09/03 - normotensive this AM was hypertensive last evening but may also correlate with values taken at time of agitation, will monitor closely, Temp is not elevated and will check WBC tomorrow, do not think this is related to malignant catatonia at this time 09/04 - BP varies high in the evening and lower in the day, continue to monitor closely 09/07 - Was normotensive for 2 days, and yesterday evening had elevated blood pressure, but again normal this morning. Continue to monitor. Discharge / Aftercare Planning Primary Care Physician: Name: [email or web address] Appointment Notes: [address] [place] [address] Psychiatrist: Name: Dr. Hahn [facility] Appointment Notes: [address] [place] [id number] Therapist: Name: Katerina Valerio [facility] Appointment Notes: [address] [place] [id number] Linoleum Layer Helper: Name: Zulay Macias Home Health Services: Home Health Services: social media developer, home health agency Home Health Agency: [facility] Specialist: Name: Dr. Demarcus Ovalles, [employer] Farmworker [facility] [place] Phone Number: [phone] Date of Appointment: Oct 21, 2017 Time of Appointment: 1:15pm Visit Code E&M Code: 49880 Inventory Assets Strengths: Support from partner, good relationship with outpatient provider Needs: Clarity with her medications Risk Factors Assessment : Yes /single/: No Higher / Fall in social status: No Access to guns: No Health problems: Yes Mental Health Diagnoses: Yes Substance use disorders: No Previous attempt: Yes Family history of suicide: Yes Previous psychiatric stay: Yes Hopelessness: No Smoker: No Protective Factors Assessment : No Responsible for young children: No Employed: No Stable relationships: Yes Supportive family: Yes Good rapport with provider: Yes Data Vital Signs Last 24 Hrs: Date Time Temp Pulse Resp B/P (MAP) Pulse Ox O2 Delivery O2 Flow Rate FiO2 09/08/17 06:48 36.8 74 18 105/67 (80) Room Air 09/08/17 00:05 86 125/74 (91) 09/07/17 21:39 37.0 80 20 125/64 (84) Meds Administered Last 24 Hrs: Meds Administered (Past 24Hrs) Medications (Trade) Dose Ordered Sig/Kelsey Route Start Time Stop Time Status Last Admin Dose Admin Perphenazine (Trilafon Tab) 4 mg DAILY@1400 PO 09/06/17 14:00 10/06/17 13:59 09/07/17 14:06 4 MG Perphenazine (Trilafon Tab) 12 mg HS PO 09/06/17 22:00 10/06/17 21:59 09/07/17 21:15 12 MG Benzocaine (Orajel 20% Oral Gel) 1 appln BID PRN MT 09/06/17 12:45 10/06/17 12:44 09/07/17 21:52 1 APPLN Lorazepam (Ativan Tab) 1 mg NOW ONCE PO 09/07/17 14:15 09/07/17 14:16 DC 09/07/17 14:15 1 MG Lab Results Last 24 Hrs: 09/04/17 09:09 Red Blood Count 3.43, Mean Corpuscular Volume 89.2, Mean Corpuscular Hemoglobin 29.2, Mean Corpuscular Hemoglobin Concent 32.7, Mean Platelet Volume 9.6, Neutrophils (%) (Auto) 69.8, Lymphocytes (%) (Auto) 18.6, Monocytes (%) (Auto) 8.7, Eosinophils (%) (Auto) 1.5, Basophils (%) (Auto) 0.2, Neutrophils # (Auto) 2.81, Lymphocytes # (Auto) 0.75, Monocytes # (Auto) 0.35, Eosinophils # (Auto) 0.06, Basophils # (Auto) 0.01 09/04/17 09:09 Test 08/10/17 12:35 08/10/17 12:56 08/26/17 00:00 08/29/17 09:07 Urine Opiates Screen NEG (NEG) Urine Methadone, Qualitative NEG (NEG) Urine Barbiturates NEG (NEG) Urine Phencyclidine (PCP) Level NEG (NEG) Ur Amphetamine/Methamphetamine NEG (NEG) MDMA (Ecstasy) Screen NEG (NEG) Urine Benzodiazepines Screen NEG (NEG) Urine Cocaine Metabolite NEG (NEG) Urine Marijuana (THC) NEG (NEG) Total Bilirubin 0.3 mg/dl (0.2-1) Aspartate Amino Transf (AST/SGOT) 22 U/L (15-37) Alanine Aminotransferase (ALT/SGPT) 49 U/L (12-78) Alkaline Phosphatase 130 U/L (45-117) Total Protein 7.2 gm/dl (6.4-8.2) Albumin 3.4 gm/dl (3.4-5.0) Globulin 3.8 gm/dl (2.5-4.0) Albumin/Globulin Ratio 0.9 (0.9-2) Salicylates Level < 1.7 mg/dl (2.8-20) Acetaminophen Level < 2 ug/ml (10-30) Ethyl Alcohol mg/dL < 3.0 mg/dl (0-3) Urine Color YELLOW Urine Appearance CLEAR (CLEAR) Urine pH 6.0 (4.5-7.5) Urine Specific [place] 1.009 (1.000-1.030) Urine Protein 1+ (NEG) Urine Glucose (UA) NEG (NEG) Urine Ketones NEG (NEG) Urine Occult Blood NEG (NEG) Urine Nitrite NEG (NEG) Urine Bilirubin NEG (NEG) Urine Urobilinogen NEG (NEG) Urine Leukocyte Esterase MODERATE (NEG) Urine WBC (Auto) 1-5 /hpf (0-5) Urine RBC (Auto) 0-4 /hpf (0-4) Urine Hyaline Casts (Auto) 0 /lpf (0-5) Urine Epithelial Cells (Auto) 5-10 /lpf (0-5) Urine Bacteria (Auto) NEG (NEG) Ray Level 0.4 mMOL/L (0.6-1.2) Test 09/04/17 09:09 White Blood Count 4.03 K/uL (4.8-10.8) Red Blood Count 3.43 M/uL (4.2-5.4) Hemoglobin 10.0 g/dL (12.0-16.0) Hematocrit 30.6 % (37-47) Mean Corpuscular Volume 89.2 fL (80-100) Mean Corpuscular Hemoglobin 29.2 pg (25-34) Mean Corpuscular Hemoglobin Concent 32.7 g/dl (32-36) Platelet Count 171 K/uL (130-400) Mean Platelet Volume 9.6 fL (7.4-10.4) Neutrophils (%) (Auto) 69.8 % Lymphocytes (%) (Auto) 18.6 % Monocytes (%) (Auto) 8.7 % Eosinophils (%) (Auto) 1.5 % Basophils (%) (Auto) 0.2 % Neutrophils # (Auto) 2.81 K/uL (1.4-6.5) Lymphocytes # (Auto) 0.75 K/uL (1.2-3.4) Monocytes # (Auto) 0.35 K/uL (0.11-0.59) Eosinophils # (Auto) 0.06 K/uL (0-0.5) Basophils # (Auto) 0.01 K/uL (0-0.2) RDW Standard Deviation 46.9 fL (36.4-46.3) RDW Coefficient of Variation 14.3 % (11.5-14.5) Immature Granulocyte % (Auto) 1.2 % Immature Granulocyte # (Auto) 0.05 K/uL (0.00-0.02) Miscellaneous Test REPORT Anion Gap 6.0 mmol/L (3-11) Est Creatinine Clear Calc Drug Dose 30.7 ml/min Estimated GFR () 42.6 Estimated GFR (Non- 36.8 BUN/Creatinine Ratio 15.3 (10-20) Calcium Level 9.0 mg/dl (8.5-10.1) Iron Level 64 mcg/dl (35-150) Total Iron Binding Capacity 304 mcg/dl (250-450) Transferrin 261 mg/dl (200-360) Transferrin % Saturation 17 % (15-50) Ferritin 156.5 ng/ml (8.0-388.0) Thyroid Stimulating Hormone (TSH) 1.710 uIu/ml (0.300-4.500) Valproic Acid (Depakene) Level 57 mcg/ml (50-100) Date/Time Source Procedure Growth Status 08/26/17 00:00 Urine , Clean Catch Urine Culture - Final MORE THAN THREE TYPES OF ORGANISMS [place]... Complete Problem Qualifiers (1) Chronic kidney disease (CKD): Chronic kidney disease stage: stage 1 Qualified Codes: N18.1 - Chronic kidney disease, stage 1
[2017-09-08 14:01] VITALS: BP 157/84; PULSE 90
[2017-09-08] MEDS: PERPHENAZINE 2 MG TAB PO SCH ×2 (14:01→21:03)
[2017-09-08] MEDS: PROPRANOLOL HCL 20 MG TAB PO PRN (14:01)
[2017-09-08] MEDS: LORAZEPAM 1 MG TAB PO SCH (17:20)
[2017-09-08] MEDS: BENZOCAINE 20% (ORAJEL) 11.9 GM TUBE MT PRN (19:05)
[2017-09-08] MEDS: ATORVASTATIN 10 MG TAB PO SCH (21:02)
[2017-09-08] MEDS: DIVALPROEX 500 MG EXTENDED RELEASE TAB PO SCH (21:02)
[2017-09-08] MEDS: MELATONIN 3 MG PO SCH (21:02)
[2017-09-08] MEDS: OLANZAPINE 20 MG TAB PO SCH (21:04)
[2017-09-08] MEDS: LORAZEPAM 2 MG TAB PO SCH (21:09)
[2017-09-08 21:13] VITALS: BP 127/73; PULSE 80
[2017-09-08 22:13] VITALS: BP 135/71; PULSE 84
[2017-09-09 07:05] VITALS: BP_SYST 119; BP_SYST 126; BP_DIAS 73; BP_DIAS 78; PULSE 74; PULSE 80; TEMP 36.6
[2017-09-09] MEDS: TOCOPHERYL, DL-ALPHA 400 INTER.UNIT CAP PO SCH (08:35)
[2017-09-09] MEDS: MONTELUKAST SOD 10 MG TAB PO SCH (08:35)
[2017-09-09] MEDS: PANTOprazole SOD 40 MG TAB PO SCH (08:35)
[2017-09-09] MEDS: LOSARTAN POTASSIUM 25 MG TAB PO SCH (08:35)
[2017-09-09] MEDS: OMEGA-3 (PURIFIED FISH OIL) 1 GM CAP PO SCH ×2 (08:35→20:35)
[2017-09-09] MEDS: CEROVITE ADV FORMULA TAB PO SCH (08:35)
[2017-09-09] MEDS: BENZOCAINE 20% (ORAJEL) 11.9 GM TUBE MT PRN ×2 (08:58→18:51)
[2017-09-09] MEDS: TRAMADOL HCL 50 MG TAB PO PRN ×2 (08:58→16:11)
--- NOTE | 2017-09-09 10:42 | Psychiatric Progress Notes ---
Psychiatric Progress Note Date of Service September 09, 2017. Notes Patient seen, MS assessed. Rates mood as "all over". Thoughts remain disorganized. Administrative case review given intermittent resistance to care and length of stay. Patient is compliant with medications. Unclear benefit from Depakote, level this am 68. Staff expressed concerns about her frustration tolerance and impulsive/demanding behaviors to leave care given 201 status. Reviewed staff notes for past 24 hours--no aggression or active elopement noted, patient ripped up 72 hour notice. Currently she is oriented to place and self and voiced understanding of her care plan. She mainly wants boyfriend to visit. She is sitting quietly on her bed so no active indication to convert to 302. Reviewed criteria with nursing home physician, mental health staff and nursing. Dr. Espitia to reassess on 09/12 and team may need to consider 304 if no interval improvement.
--- NOTE | 2017-09-09 11:10 | Psychiatric Progress Notes ---
Progress Note Date of Service September 09, 2017. Interval History 67-year-old woman readmitted voluntarily for psychotic stefan 3 days after last hospitalization. She has been increasingly nonsensical and disorganized despite multiple med trials, complicated by delirium. Chief Complaint "I have this toothache, I'm waiting for the tooth to loosen and then fall out". Subjective Patient was seen & assessed interval progress reviewed with Treatment Team. Staff reports that patient continues to fluctuate in mood and irritability throughout the day. Pt continues to willingly participate in treatment; however , requests to leave. Staff states she has been offered her 72-hour notice, but has not signed. Pt was seen today to assess progress since admission. Pt is observed sitting at the edge of the bed with sound amplification devise in use. Pt states it is helpful. Pt shares that she has been eating "all of it" and reports, "I never sleep". She describes her mood with a hand gesture reflecting waves, stating she has "disturbances" which make her "upset". Pt continues to administer Ora-gel as directed for her reported tooth pain. Overall patient appears to be doing well and is in appropriate behavioral control for the duration of the visit. Pt denies SI and A/V hallucinations. Review of Systems Psych: denies symptoms other than stated above Constitutional: reports Right upper mouth gum/tooth pain Cardiovascular: denied GI: denied Neurologic: denied Remainder of 10 body systems also reviewed and denied other than noted above. Sleep Information Total Hours of Sleep: 3.00 Meal Information Percent of Breakfast Consumed: 50 Percent of Lunch Consumed: 60 Percent of Dinner Consumed: 90 Mental Status Exam During interview pt is: alert and oriented, cooperative Appearance: appropriately dressed, appropriately groomed Eye contact is: good Motor behavior is: no abnormal motor movements (pt remains calm during visit with little psychomotor agitation.) Speech: other (Speech is more clear and articulate) Affect: irritable (briefly when discussing a specific frustration), euthymic Mood is: other ("Fine") Thought process: tangential Thought content: cognitive distortions Suicidal thought are: denied, Plan: denied, Intent: denied Homicidal thoughts are: denied Hallucinations: denies auditory, denies visual Cognition: language grossly intact Intelligence estimated to be: average Insight: severely impaired Judgement: severely impaired Impression Pt continues to experience poor sleep, but has shared with staff that she typically does not sleep at length. Today speech is more articulate and she is able to participate in conversation with little tangentiality. Staff reports the patient becomes irritable and impulsive at times, specifically on alternating shifts, and occasionally requires redirection. Depakote level checked this morning = 68. Pt requires ongoing inpatient mental health treatment until we are better able to improve impulsivity, insomnia and fall risk as she is not safe to return home in her current condition. Plan (1) Bipolar 1 disorder with mixed features 08/11 - Increase Klonopin back to 1.5 mg HS to target sleep - Will DC lithium at this point due to concerns for her age and renal status - Will increase Risperdal to 1 mg. AM and 7 mg HS - Will DC navane to reduce polypharmacy - Continue prn haldol and increase to q 4 hr prn - Will have nursing attempt to preauth Vraylar to trial - DC Zoloft - Q 15 min checks for safety - Encourage participation in group and individual counseling as tolerated - Coordinate with current providers - had FLP and FBS on 07/23/17. All WNL with the exception of triglycerides of 151 and FBS 129 08/12 - Vraylar trial when Alex can bring it in - Start 1.5 mg daily increasing to 3 mg daily the following day. - Will taper risperdal at the same time 08/13 -Vraylar was actually started at 3mg hs on 08/12 since only 3mg capsules for supply. given s/e profile will move vraylar to earlier in day, will maintain pt at 3mg for time being given long half life of med and long half life of active metabolite tapering risperdal maintained at 1mg am and 3mg hs for now since just lowered by 4mg continue prn haldol doses 08/14 -maintained vraylar 3mg qday -maintained risperdal 1mg am and 3mg hs for now, aim to wean risperdal further as adjusting to vraylar over next days 08/15 - Continue Vraylar 3mg daily - Plan to continue to taper risperdal, however patient appears to be displaying more restlessness today in regard to manic behaviors and requiring redirection from staff and prn Haldol more frequently. - Attempt to determine proximity to baseline with visits from her fiance 08/16 - Vraylar increased to 6mg daily 08/17 - Discontinue risperidone due to inefficacy, and increase Haldol prn to 10mg. - Resume trihexphenidyl at 1mg daily and monitor restlessness as able. Challenging to know if her agitation is due to akathisia, anxiety, psychosis, or stefan, and she is a limited historian. 08/18 - DC haldol due to no response - Start Thorazine 25 mg. q 2 hr prn during the day and 100 mg. scheduled at HS 08/19 - Increase thorazine to 50 q 3 hr prn and 200 mg. HS - Try to maintain good sleep wake cycles - EKG today 08/20 - 150mg of [place] to be added this evening to stabilize mood in interim of response to Vraylar, level in 5 days to monitor for possible toxicity. - Increase Klonopin to 2.5mg qHS to better target sleep. Pt remains on 1-to- 1 observation currently, continue safety precautions for fall risk with medication changes - Encourage sleep as able, with target to keep patient in appropriate sleep- wake cycle. Daytime naps are limited in length. 08/21 - Li restarted yesterday which is not expected to demonstrate a quick benefit but in deference to long standing treatment and increased risk for ongoing mood instability off the medication. given renal impairment, she will need more frequent monitoring but the potential benefit is felt to outweigh the risk given the severity of her underlying mental health d/o. I would suggest maintaining this very low dose and checking a level on the (which I ordered today) before further titration. - sleeping more in last 24h getting high dose Thorazine which, unfortunately , may also be making her delirious. I am uncertain if she has been treated with high dose seroquel previously but that could be considered as an alternative if she struggles to tolerate the Thorazine moving forward. - will increase melatonin to 9mg qhs for additional sleep benefit with minimal risk for worsening delirium. could also consider temporarily maximizing ambien at 10mg but will defer for today 2/2 delirium as sleep is presently improving which will hopefully show antimanic effect. 08/22 - Continue on Thorazine, Vraylar, [place], and Klonopin. [place] level ordered for 08/25. - Will attempt to develop plan to decrease low-dose polypharmacy; Pt's significant other hesitant for other medication changes and is unwilling for ECT at this time - Continue delirium protocol with encouraging appropriate sleep/wake cycles 08/23 -Continue environmental and behavioral interventions for delirium, reviewed her medications and attempting to eliminate unnecessary medications ( cholestyramine discontinued as she was refusing it and not acutely important). -Try to consolidate sleep at night; continue melatonin 9 mg, clonazepam 2.5 mg, zolpidem 5 mg, and chlorpromazine 200 mg at bedtime. -Continue Vraylar 6 mg every morning (started 08/12/2017). -Continue trihexyphenidyl 1 mg every morning for akathisia. -[place] 150 mg at bedtime restarted 08/20/2017; level and BMP ordered for . 08/24 1. DC Vraylar- Has not shown any improvement since added 2. DC Thorazine- No significant improvement and contributing to anticholinergic load 3. DC Artane- Difficult to tell whether she is restless or whether restlessness is due to stefan, and concern for anticholinergic load 4. DC Ambien- Can contribute to confusion, especially in women 5. DC Vistaril- due to concerns for anticholinergic load 6. Retrial Depakote ER 500 mg. HS titrated to therapeutic level. Has been on this in the past but reports from pt and Alex provide different memories of it. 7. Trial Zyprexa- Will start low with 5 mg due to long half life of Vraylar , to target stefan 8. Continue lithium low dose, re-added due to concerns that withdrawing it after she has been on it for years has contributed to deterioration. Caution to renal status 9. Continue Klonopin 10. Continue Tramadol prn, but have encouraged nursing to use it only sparingly. 08/25 -Increase olanzapine to 7.5mg HS and prn to 5mg. -[place] trough 0.3; creatinine and BUN up slightly at 30 and 1.77. Continue to encourage adequate hydration, and will recheck lithium trough and BMP in 4 days. -Continue Depakote 500 mg nightly, and check a Depakote trough on 08/29/2017. -Consideration for ECT stefan, psychosis, and delirium do not improve. 08/26 -Increase HS zyprexa to 10 mg. continue prn's - Continue to encourage hydration - Continue depakote with level 08/29 - Will obtain CBC and UA to rule out UTI, dyscrasia - Continue to consider ECT if no improvement 08/27 --continue Zyprexa titration to 15 mg po qhs, d/c prn doses as no apparently benefit; given longstanding rx with a typical antipsychotic (Navane) and some response to Haldol prn, trial of Trilafon prn agitation. --restlessness appears to be related to catatonia in my opinion rather than akathisia. That said, will offer prn beta brad as trial for comfort, BP has been elevated anyway, would prefer to implement this rather than increasing Cozaar acutely --no clear benefit from hs clonazepam and treatment of choice for catatonia is lorazepam so taper Klonopin in favor of Ativan TID + prn. Remains on 1-on-1 for falls precautions. 08/28 --continue Zyprexa titration to 20 mg po qhs --may use propranolol TID prn --replace HS Klonopin with 2 mg Ativan as appears more effective 08/29 - Continue Zyprexa 20mg qHS, propranolol TID prn, Ativan 2mg qHS, and prn Trilafon - Recent labs reviewed: Li level = 0.4; Depakote level = 27 - BUN elevated at 36, creatinine elevated at 1.88. GFR = 27.5. - Due to progressive worsening of kidney function and apparent improvement with addition of other agents, will discontinue [place] at this time. - Increase Depakote to 750mg tonight. Depakote trough level ordered for 2017. 08/30 - Continue current meds with the exception of stopping AM ativan due to sedation, and concerns for fall risk 08/31 -Continue current medications, including Lorazepam 1 mg q. 1200 and 1700 hrs. and 2 mg at bedtime, Depakote 750 mg nightly, olanzapine 20 mg nightly, propanolol 20 mg 3 times daily as needed for restlessness, perphenazine 4 mg as needed for agitation, and melatonin 9 mg at bedtime. -Continue one-to-one monitoring. 09/01 - Continue current meds and plan including 1:1 09/02 - Add Trilafon 4 mg. TID 09/03 - increase trilafon to and pending VPA level and BMP on 09/04, will add CBC due to BRBPR yesterday due to hemrrhoids, and TSH (see below). will watch her sedation and if sedated will lower ativan 09/04/17 - patient is not showing tangible gains from this provider's review of chart and observation over last 2 days. Nursing staff felt she was less pervasively agitated on 09/03, and but she seems to continue to demonstrate pattern of delirium (waxing and waning mental state with fragmented sleep, hallucinations and waking in anxious state disoriented, labile) The inpatient team has done a heroic job of caring for this woman who has very complicated and refractory primary mental health condition and what appears to be superimposed delirium her prognosis is poor. She did best on lithium as a component of her treatment to date. Review of record is that patient's kidney function (creatinine and BUN) worsened on lithium earlier this month, but at 150mg/hs for 7days she had two of her best days inpatient on 08/29 (date of discontinuation), and 08/30 (day after discontinuation) even though her level was only 0.4 on 08/29. I will discuss with primary team as there are very serious risks of returning to lithium. - it is not clear if remeron provided an improvement for patient last night, or it was the last of a series of several sedating medications. Although it is optimal in delirium to keep up in the day and sleep at night, given she is only getting 1-4hours/night it is hard to justify waking her only for her to be agitated in the day today. Will discuss with staff and attempt to keep her up to a degree possible with light cues and stimulus in the day and lower stimulus at night - continue trilafon for now scheduled with PRN, she did require less in the last 24hours than the preceding day but it remains to be see if that is improvement - increase Depakote from 750 (level 57, free level pending) to 1000mg tonight repeat level ordered for 09/09/17 AM - she is anemic, stably so compared to 07/2017, but will draw ferritin, transferin and transferrin Saturation and TIBC to r/o iron deficiency as contributing to RLS as she is anemic, would replete with oral iron if this returns low, will discus with primary team as vitamin E may impair the response for her iron deficiency anemia - consider MVI in place of vitamin E (as not to over- dose with time) - avoid anticholinergics - she remains on benzodiazepines at this time (combination of scheduled and prns getting 5-6mg/day in the last 2 days), and although there was prior speculation of agitated catatonia in the chart it is not clear to me that the current prn doses are meaningfully helpful and can worsen delirium. Will maintain scheduled ativan 1mg 12, 1mg 1700 and 2mg/hs but stop the prn doses, and prefer trilafon prn psychosis/agitation - will not write for standing dose of remeron but if staff call again this evening after scheduled medications and patient is not sleeping would consider again giving 7.5mg remeron with caution monitoring for oversedation and future mood elevation, and watch RLS - will ask staff to get a clock drawing for goal of serial clock drawings overtime can assist in tracking delirium recovery 09/05 -Continue Depakote 1000 mg nightly, with a repeat trough level on 09/09/2017. -Continue olanzapine 20 mg nightly, perphenazine 4 mg twice daily and 8 mg nightly, and decrease Lorazepam to 1 mg q. 1700 and 2 mg nightly (discontinuing the 1 mg dose at noon). Continue perphenazine and propranolol as needed's. 09/06 - AM sedation, but poor sleep at night. Shift trilafon to 4 mg. at 1400 and 12 mg. HS 09/07 -Continue current medications and one-to-one supervision, private room, and fall precautions. 09/08 - Continue current plan and meds. 09/09 - Continue current medications - Depakote level this morning = 68 (2) Chronic kidney disease (CKD) 08/11 - DC lithium. Will attempt to stabilize mood with atypicals - Collaborate with Dr. Ovalles as needed 08/20 - Restart [place] at 150mg qHS in attempt to stabilize mood and target manic behaviors. Ideally would be used in the short-term until response to Vraylar is more evident; however, patient is known to have responded well in the past. 08/21 - increase losartan to 50mg for persistently elevated BP's 08/23 -Low-dose lithium resumed 08/20/2017 due to acute worsening of psychiatric symptoms thought possibly due to discontinuation of lithium after being on it for many years. [place] trough and BMP ordered for 08/25/2017. 08/25 -[place] trough level 0.3, BUN 30, creatinine 1.77. These are up slightly from 08/10/2017, 1 BUN was 23 and creatinine 1.46. We will continue to monitor closely, ensure adequate hydration, and recheck in 4 days. If kidney function worsens, we will need to discontinue the lithium, as previously discussed with nephrology (Dr. Foreman on 07/25/2017). 08/29 - Labs reviewed: Li level = 0.4. BUN and Cr elevated at 36 and 1.88 respectively. GFR as outpatient progressively decreasing from 43.6 to 38.3. Most recent GFR = 27.5 - Will d/c [place] in favor of Depakote titration 08/31 -Will recheck BMP on 09/04/2017 to monitor kidney function. Continue to encourage fluids. 09/04 - Cr 1.48 and BUN 23, continue to encourage fluids (3) Hypothyroidism 08/11 - TSH WNL and not on levothyroxine. - May have had abnl values in the past related to being on lithium 08/26 - BP elevated. Will increase Cozaar to 75 mg. daily - VS BID 09/03/17 - will add TSH to labs for tomorrow given exopthalamos, h/o hypothyroid and not on levothyroxine 09/04 TSH WNL (4) Hyperlipemia 08/11 - Continue home dose of atorvastatin - FLP done 07/24 08/23 -Patient intermittently refusing cholestyramine; discontinue for now as also on atorvastatin and trying to limit polypharmacy. (5) Hypertension 08/31 -has been persistently hypertensive for the past several days, and intermittently hypertensive throughout her stay. No known history of hypertension, and EKG on 08/19/2017 was normal sinus rhythm. Consider need for hospitalist assistance if hypertension persists. 09/03 - normotensive this AM was hypertensive last evening but may also correlate with values taken at time of agitation, will monitor closely, Temp is not elevated and will check WBC tomorrow, do not think this is related to malignant catatonia at this time 09/04 - BP varies high in the evening and lower in the day, continue to monitor closely 09/07 - Was normotensive for 2 days, and yesterday evening had elevated blood pressure, but again normal this morning. Continue to monitor. Discharge / Aftercare Planning Primary Care Physician: Name: Santos JACKSON [employer] Appointment Notes: [id number] [place] [address] Psychiatrist: Name: Dr. Hahn [facility] Clinic Appointment Notes: [address] [place] [address] Therapist: Name: Greyson Silverio [facility] Appointment Notes: [address] [place] [address] Managed Care Director: Name: Zulay Macias Home Health Services: Home Health Services: social studies teacher, home health agency Home Health Agency: [facility] Specialist: Name: Dr. Demarcus Ovalles, Meeting Facilitator [facility] Phone Number: [phone] Date of Appointment: Oct 21, 2017 Time of Appointment: 1:15pm Visit Code E&M Code: 59000 Inventory Assets Strengths: Support from partner, good relationship with outpatient provider Needs: Clarity with her medications Risk Factors Assessment : Yes /single/: No Higher / Fall in social status: No Access to guns: No Health problems: Yes Mental Health Diagnoses: Yes Substance use disorders: No Previous attempt: Yes Family history of suicide: Yes Previous psychiatric stay: Yes Hopelessness: No Smoker: No Protective Factors Assessment : No Responsible for young children: No Employed: No Stable relationships: Yes Supportive family: Yes Good rapport with provider: Yes Data Vital Signs Last 24 Hrs: Date Time Temp Pulse Resp B/P (MAP) Pulse Ox O2 Delivery O2 Flow Rate FiO2 09/09/17 07:05 36.6 74 16 126/78 (94) Room Air 80 119/73 (88) 09/08/17 22:13 84 18 135/71 (92) 09/08/17 21:13 80 18 127/73 (91) 09/08/17 14:01 90 16 157/84 (108) Meds Administered Last 24 Hrs: Meds Administered (Past 24Hrs) Medications (Trade) Dose Ordered Sig/Kelsey Route Start Time Stop Time Status Last Admin Dose Admin Lorazepam (Ativan Tab) 1 mg NOW ONCE PO 09/07/17 14:15 09/07/17 14:16 DC 09/07/17 14:15 1 MG Lab Results Last 24 Hrs: Last 24 Hours Test 09/09/17 09:20 Valproic Acid (Depakene) Level 68 mcg/ml Problem Qualifiers (1) Chronic kidney disease (CKD): Chronic kidney disease stage: stage 1 Qualified Codes: N18.1 - Chronic kidney disease, stage 1
[2017-09-09] MEDS: PERPHENAZINE 2 MG TAB PO SCH ×2 (14:49→20:37)
[2017-09-09] MEDS: LORAZEPAM 1 MG TAB PO SCH (17:26)
[2017-09-09] MEDS: DIVALPROEX 500 MG EXTENDED RELEASE TAB PO SCH (20:34)
[2017-09-09] MEDS: LORAZEPAM 2 MG TAB PO SCH (20:34)
[2017-09-09] MEDS: ATORVASTATIN 10 MG TAB PO SCH (20:35)
[2017-09-09] MEDS: MELATONIN 3 MG PO SCH (20:35)
[2017-09-09] MEDS: OLANZAPINE 20 MG TAB PO SCH (20:37)
[2017-09-09 21:07] VITALS: BP_SYST 133; BP_SYST 144; BP_DIAS 75; BP_DIAS 86; PULSE 79; PULSE 85; TEMP 36.8; O2SAT 98
[2017-09-10] MEDS: BENZOCAINE 20% (ORAJEL) 11.9 GM TUBE MT PRN ×2 (04:48→15:23)
[2017-09-10 06:57] VITALS: BP_SYST 118; BP_SYST 133; BP_DIAS 75; BP_DIAS 79; PULSE 80; PULSE 81; TEMP 36.6; O2SAT 98
[2017-09-10] MEDS: MONTELUKAST SOD 10 MG TAB PO SCH (08:42)
[2017-09-10] MEDS: CEROVITE ADV FORMULA TAB PO SCH (08:42)
[2017-09-10] MEDS: OMEGA-3 (PURIFIED FISH OIL) 1 GM CAP PO SCH ×2 (08:42→21:18)
[2017-09-10] MEDS: TOCOPHERYL, DL-ALPHA 400 INTER.UNIT CAP PO SCH (08:42)
[2017-09-10] MEDS: LOSARTAN POTASSIUM 25 MG TAB PO SCH (08:42)
[2017-09-10] MEDS: PANTOprazole SOD 40 MG TAB PO SCH (08:42)
--- NOTE | 2017-09-10 11:12 | Psychiatric Progress Notes ---
Progress Note Date of Service September 10, 2017. Interval History 67-year-old woman readmitted voluntarily for psychotic stefan 3 days after last hospitalization. She has been increasingly nonsensical and disorganized despite multiple med trials, complicated by delirium. Chief Complaint "Incarcerated. ". Subjective Patient was seen & assessed interval progress reviewed with Treatment Team. Nursing reports that she continues to have episode of anger and impulsivity. On shift boss she slept intermittantly, at times sleeping with her blanket and pillow on the bathroom floor by choice. today she is alert, conversive. She is alternating between being pleasant and irritable saying that she feels like she is incarcerated because she has been here so long. She talks about wanting to go home, but understands that Alex can't handle her in her current state. When asked if she has been irritable in the past when on depakote she says no. She does not think that she has ever been on neurontin. She admits that her sleep is bad and talks about not sleeping well for the last 5 days, and finding it increasingly difficult to sleep without Alex. During the interview, she talks calmly in response to written questions until she gets to something charge and then immediately escalates to yelling. She denies SI. Denies hallucinations. Review of Systems Constitutional: + fatigue ENT: + hearing loss Respiratory: No cough, No sputum, No wheezing, No shortness of breath, No dyspnea on exertion, No dyspnea at rest, No hemoptysis, No problem reported Cardiovascular: No chest pain, No orthopnea, No PND, No edema, No claudication , No palpitations, No problem reported Abdomen: No pain, No nausea, No vomiting, No diarrhea, No constipation, No GI bleeding, No problem reported Musculoskeletal: No joint pain, No muscle pain, No swelling, No calf pain, No problem reported Neurologic: No memory loss, No paralysis, No weakness, No numbness/tingling, No vertigo, No balance problems, No problem reported Psychiatric: + problem reported (irritable and impulsive) Integumentary: No rash, No itch, No new/changing skin lesions, No color change , No bleeding, No problem reported Sleep Information Total Hours of Sleep: 4.50 Meal Information Percent of Breakfast Consumed: 100 Percent of Lunch Consumed: 90 Percent of Dinner Consumed: 100 Mental Status Exam During interview pt is: alert and oriented, cooperative Appearance: appropriately dressed, appropriately groomed Eye contact is: good Motor behavior is: no abnormal motor movements Speech: other (Speech is more clear and articulate) Affect: irritable (briefly when discussing a specific frustration), euthymic Mood is: other ("Fine") Thought process: tangential Thought content: cognitive distortions Suicidal thought are: denied, Plan: denied, Intent: denied Homicidal thoughts are: denied Hallucinations: denies auditory, denies visual Cognition: language grossly intact Intelligence estimated to be: average Insight: severely impaired Judgement: severely impaired Impression Depakote therapeutic at 69 as of yesterday, and although we have seen improvement to her mentation and ability to interact in a reality based manner, her irritability is problematic, leading to impulsive outbursts of yelling and behavioral dysregulation like putting herself on the floor. We cannot discharge her in this condition and there is concern that the irritability is a side effect to depakote. With that in mind, I will start backing off on depakote, cutting the dose to 500 mg. HS and start Neurontin 100 mg TID. Neurontin has been used successfully as an adjunct in bipolar, especially in patients who have not responded to other mood stabilizers. We cannot return to lithium given her CKD, lamictal would not be a good choice given the need for more rapid titration, she has failed risperdal, Vraylar, Navane, is not likely a good Clozaril candidate given the need for close lab monitoring. Neurontin may also target any pain from her fibromyalgia, and target some anxiety and sleep problems. Will continue other meds. Plan (1) Bipolar 1 disorder with mixed features 08/11 - Increase Klonopin back to 1.5 mg HS to target sleep - Will DC lithium at this point due to concerns for her age and renal status - Will increase Risperdal to 1 mg. AM and 7 mg HS - Will DC navane to reduce polypharmacy - Continue prn haldol and increase to q 4 hr prn - Will have nursing attempt to preauth Vraylar to trial - DC Zoloft - Q 15 min checks for safety - Encourage participation in group and individual counseling as tolerated - Coordinate with current providers - had FLP and FBS on 07/23/17. All WNL with the exception of triglycerides of 151 and FBS 129 08/12 - Vraylar trial when Alex can bring it in - Start 1.5 mg daily increasing to 3 mg daily the following day. - Will taper risperdal at the same time 08/13 -Vraylar was actually started at 3mg hs on 08/12 since only 3mg capsules for supply. given s/e profile will move vraylar to earlier in day, will maintain pt at 3mg for time being given long half life of med and long half life of active metabolite tapering risperdal maintained at 1mg am and 3mg hs for now since just lowered by 4mg continue prn haldol doses 08/14 -maintained vraylar 3mg qday -maintained risperdal 1mg am and 3mg hs for now, aim to wean risperdal further as adjusting to vraylar over next days 08/15 - Continue Vraylar 3mg daily - Plan to continue to taper risperdal, however patient appears to be displaying more restlessness today in regard to manic behaviors and requiring redirection from staff and prn Haldol more frequently. - Attempt to determine proximity to baseline with visits from her fiance 08/16 - Vraylar increased to 6mg daily 08/17 - Discontinue risperidone due to inefficacy, and increase Haldol prn to 10mg. - Resume trihexphenidyl at 1mg daily and monitor restlessness as able. Challenging to know if her agitation is due to akathisia, anxiety, psychosis, or stefan, and she is a limited historian. 08/18 - DC haldol due to no response - Start Thorazine 25 mg. q 2 hr prn during the day and 100 mg. scheduled at HS 08/19 - Increase thorazine to 50 q 3 hr prn and 200 mg. HS - Try to maintain good sleep wake cycles - EKG today 08/20 - 150mg of [place] to be added this evening to stabilize mood in interim of response to Vraylar, level in 5 days to monitor for possible toxicity. - Increase Klonopin to 2.5mg qHS to better target sleep. Pt remains on 1-to- 1 observation currently, continue safety precautions for fall risk with medication changes - Encourage sleep as able, with target to keep patient in appropriate sleep- wake cycle. Daytime naps are limited in length. 08/21 - Li restarted yesterday which is not expected to demonstrate a quick benefit but in deference to long standing treatment and increased risk for ongoing mood instability off the medication. given renal impairment, she will need more frequent monitoring but the potential benefit is felt to outweigh the risk given the severity of her underlying mental health d/o. I would suggest maintaining this very low dose and checking a level on the (which I ordered today) before further titration. - sleeping more in last 24h getting high dose Thorazine which, unfortunately , may also be making her delirious. I am uncertain if she has been treated with high dose seroquel previously but that could be considered as an alternative if she struggles to tolerate the Thorazine moving forward. - will increase melatonin to 9mg qhs for additional sleep benefit with minimal risk for worsening delirium. could also consider temporarily maximizing ambien at 10mg but will defer for today 2/2 delirium as sleep is presently improving which will hopefully show antimanic effect. 08/22 - Continue on Thorazine, Vraylar, [place], and Klonopin. [place] level ordered for 08/25. - Will attempt to develop plan to decrease low-dose polypharmacy; Pt's significant other hesitant for other medication changes and is unwilling for ECT at this time - Continue delirium protocol with encouraging appropriate sleep/wake cycles 08/23 -Continue environmental and behavioral interventions for delirium, reviewed her medications and attempting to eliminate unnecessary medications ( cholestyramine discontinued as she was refusing it and not acutely important). -Try to consolidate sleep at night; continue melatonin 9 mg, clonazepam 2.5 mg, zolpidem 5 mg, and chlorpromazine 200 mg at bedtime. -Continue Vraylar 6 mg every morning (started 08/12/2017). -Continue trihexyphenidyl 1 mg every morning for akathisia. -New [place]ony 150 mg at bedtime restarted 08/20/2017; level and BMP ordered for . 08/24 1. DC Vraylar- Has not shown any improvement since added 2. DC Thorazine- No significant improvement and contributing to anticholinergic load 3. DC Artane- Difficult to tell whether she is restless or whether restlessness is due to stefan, and concern for anticholinergic load 4. DC Ambien- Can contribute to confusion, especially in women 5. DC Vistaril- due to concerns for anticholinergic load 6. Retrial Depakote ER 500 mg. HS titrated to therapeutic level. Has been on this in the past but reports from pt and Alex provide different memories of it. 7. Trial Zyprexa- Will start low with 5 mg due to long half life of Vraylar , to target stefan 8. Continue lithium low dose, re-added due to concerns that withdrawing it after she has been on it for years has contributed to deterioration. Caution to renal status 9. Continue Klonopin 10. Continue Tramadol prn, but have encouraged nursing to use it only sparingly. 08/25 -Increase olanzapine to 7.5mg HS and prn to 5mg. -New Harmony trough 0.3; creatinine and BUN up slightly at 30 and 1.77. Continue to encourage adequate hydration, and will recheck lithium trough and BMP in 4 days. -Continue Depakote 500 mg nightly, and check a Depakote trough on 08/29/2017. -Consideration for ECT stefan, psychosis, and delirium do not improve. 08/26 -Increase HS zyprexa to 10 mg. continue prn's - Continue to encourage hydration - Continue depakote with level 08/29 - Will obtain CBC and UA to rule out UTI, dyscrasia - Continue to consider ECT if no improvement 08/27 --continue Zyprexa titration to 15 mg po qhs, d/c prn doses as no apparently benefit; given longstanding rx with a typical antipsychotic (Navane) and some response to Haldol prn, trial of Trilafon prn agitation. --restlessness appears to be related to catatonia in my opinion rather than akathisia. That said, will offer prn beta brad as trial for comfort, BP has been elevated anyway, would prefer to implement this rather than increasing Cozaar acutely --no clear benefit from hs clonazepam and treatment of choice for catatonia is lorazepam so taper Klonopin in favor of Ativan TID + prn. Remains on 1-on-1 for falls precautions. 08/28 --continue Zyprexa titration to 20 mg po qhs --may use propranolol TID prn --replace HS Klonopin with 2 mg Ativan as appears more effective 08/29 - Continue Zyprexa 20mg qHS, propranolol TID prn, Ativan 2mg qHS, and prn Trilafon - Recent labs reviewed: Li level = 0.4; Depakote level = 27 - BUN elevated at 36, creatinine elevated at 1.88. GFR = 27.5. - Due to progressive worsening of kidney function and apparent improvement with addition of other agents, will discontinue [place] at this time. - Increase Depakote to 750mg tonight. Depakote trough level ordered for 2017. 08/30 - Continue current meds with the exception of stopping AM ativan due to sedation, and concerns for fall risk 08/31 -Continue current medications, including Lorazepam 1 mg q. 1200 and 1700 hrs. and 2 mg at bedtime, Depakote 750 mg nightly, olanzapine 20 mg nightly, propanolol 20 mg 3 times daily as needed for restlessness, perphenazine 4 mg as needed for agitation, and melatonin 9 mg at bedtime. -Continue one-to-one monitoring. 09/01 - Continue current meds and plan including 1:1 09/02 - Add Trilafon 4 mg. TID 09/03 - increase trilafon to and pending VPA level and BMP on 09/04, will add CBC due to BRBPR yesterday due to hemrrhoids, and TSH (see below). will watch her sedation and if sedated will lower ativan 09/04/17 - patient is not showing tangible gains from this provider's review of chart and observation over last 2 days. Nursing staff felt she was less pervasively agitated on 09/03, and but she seems to continue to demonstrate pattern of delirium (waxing and waning mental state with fragmented sleep, hallucinations and waking in anxious state disoriented, labile) The inpatient team has done a heroic job of caring for this woman who has very complicated and refractory primary mental health condition and what appears to be superimposed delirium her prognosis is poor. She did best on lithium as a component of her treatment to date. Review of record is that patient's kidney function (creatinine and BUN) worsened on lithium earlier this month, but at 150mg/hs for 7days she had two of her best days inpatient on 08/29 (date of discontinuation), and 08/30 (day after discontinuation) even though her level was only 0.4 on 08/29. I will discuss with primary team as there are very serious risks of returning to lithium. - it is not clear if remeron provided an improvement for patient last night, or it was the last of a series of several sedating medications. Although it is optimal in delirium to keep up in the day and sleep at night, given she is only getting 1-4hours/night it is hard to justify waking her only for her to be agitated in the day today. Will discuss with staff and attempt to keep her up to a degree possible with light cues and stimulus in the day and lower stimulus at night - continue trilafon for now scheduled with PRN, she did require less in the last 24hours than the preceding day but it remains to be see if that is improvement - increase Depakote from 750 (level 57, free level pending) to 1000mg tonight repeat level ordered for 09/09/17 AM - she is anemic, stably so compared to 07/2017, but will draw ferritin, transferin and transferrin Saturation and TIBC to r/o iron deficiency as contributing to RLS as she is anemic, would replete with oral iron if this returns low, will discus with primary team as vitamin E may impair the response for her iron deficiency anemia - consider MVI in place of vitamin E (as not to over- dose with time) - avoid anticholinergics - she remains on benzodiazepines at this time (combination of scheduled and prns getting 5-6mg/day in the last 2 days), and although there was prior speculation of agitated catatonia in the chart it is not clear to me that the current prn doses are meaningfully helpful and can worsen delirium. Will maintain scheduled ativan 1mg 12, 1mg 1700 and 2mg/hs but stop the prn doses, and prefer trilafon prn psychosis/agitation - will not write for standing dose of remeron but if staff call again this evening after scheduled medications and patient is not sleeping would consider again giving 7.5mg remeron with caution monitoring for oversedation and future mood elevation, and watch RLS - will ask staff to get a clock drawing for goal of serial clock drawings overtime can assist in tracking delirium recovery 09/05 -Continue Depakote 1000 mg nightly, with a repeat trough level on 09/09/2017. -Continue olanzapine 20 mg nightly, perphenazine 4 mg twice daily and 8 mg nightly, and decrease Lorazepam to 1 mg q. 1700 and 2 mg nightly (discontinuing the 1 mg dose at noon). Continue perphenazine and propranolol as needed's. 09/06 - AM sedation, but poor sleep at night. Shift trilafon to 4 mg. at 1400 and 12 mg. HS 09/07 -Continue current medications and one-to-one supervision, private room, and fall precautions. 09/08 - Continue current plan and meds. 09/09 - Continue current medications - Depakote level this morning = 68 09/10 - Irritable and impulsive on Depakote. Will taper to 500 mg. HS and start trial of Neurontin 100 mg. TID titrating as tolerated. - Will need to monitor renal functions over time (2) Chronic kidney disease (CKD) 08/11 - DC lithium. Will attempt to stabilize mood with atypicals - Collaborate with Dr. Ovalles as needed 08/20 - Restart [place] at 150mg qHS in attempt to stabilize mood and target manic behaviors. Ideally would be used in the short-term until response to Vraylar is more evident; however, patient is known to have responded well in the past. 08/21 - increase losartan to 50mg for persistently elevated BP's 08/23 -Low-dose lithium resumed 08/20/2017 due to acute worsening of psychiatric symptoms thought possibly due to discontinuation of lithium after being on it for many years. [place] trough and BMP ordered for 08/25/2017. 08/25 -New [place] trough level 0.3, BUN 30, creatinine 1.77. These are up slightly from 08/10/2017, 1 BUN was 23 and creatinine 1.46. We will continue to monitor closely, ensure adequate hydration, and recheck in 4 days. If kidney function worsens, we will need to discontinue the lithium, as previously discussed with nephrology (Dr. Foreman on 07/25/2017). 08/29 - Labs reviewed: Li level = 0.4. BUN and Cr elevated at 36 and 1.88 respectively. GFR as outpatient progressively decreasing from 43.6 to 38.3. Most recent GFR = 27.5 - Will d/c [place] in favor of Depakote titration 08/31 -Will recheck BMP on 09/04/2017 to monitor kidney function. Continue to encourage fluids. 09/04 - Cr 1.48 and BUN 23, continue to encourage fluids (3) Hypothyroidism 08/11 - TSH WNL and not on levothyroxine. - May have had abnl values in the past related to being on lithium 08/26 - BP elevated. Will increase Cozaar to 75 mg. daily - VS BID 09/03/17 - will add TSH to labs for tomorrow given exopthalamos, h/o hypothyroid and not on levothyroxine 09/04 TSH WNL (4) Hyperlipemia 08/11 - Continue home dose of atorvastatin - FLP done 07/24 08/23 -Patient intermittently refusing cholestyramine; discontinue for now as also on atorvastatin and trying to limit polypharmacy. (5) Hypertension 08/31 -has been persistently hypertensive for the past several days, and intermittently hypertensive throughout her stay. No known history of hypertension, and EKG on 08/19/2017 was normal sinus rhythm. Consider need for hospitalist assistance if hypertension persists. 09/03 - normotensive this AM was hypertensive last evening but may also correlate with values taken at time of agitation, will monitor closely, Temp is not elevated and will check WBC tomorrow, do not think this is related to malignant catatonia at this time 09/04 - BP varies high in the evening and lower in the day, continue to monitor closely 09/07 - Was normotensive for 2 days, and yesterday evening had elevated blood pressure, but again normal this morning. Continue to monitor. Discharge / Aftercare Planning Primary Care Physician: Name: Santos JACKSON [facility] App[facility]ment Notes: [id number] [place] [address] Psychiatrist: Name: Dr. Hahn, [facility] Psych Clinic Appointment Notes: [address] [place] [address] Therapist: Name: Katerina Valerio Greyson [facility] Psych Clinic Appointment Notes: [address] [place] [address] Machine Fancy Stitcher: Name: Zulay Macias Home Health Services: Home Health Services: dialysis social worker, home health agency Home Health Agency: [facility] Specialist: Name: Dr. Demarcus Ovalles, [employer] [facility] [place] Phone Number: [phone] Date of Appointment: Oct 21, 2017 Time of Appointment: 1:15pm Inventory Assets Strengths: Support from partner, good relationship with outpatient provider Needs: Clarity with her medications Risk Factors Assessment : Yes /single/: No Higher / Fall in social status: No Access to guns: No Health problems: Yes Mental Health Diagnoses: Yes Substance use disorders: No Previous attempt: Yes Family history of suicide: Yes Previous psychiatric stay: Yes Hopelessness: No Smoker: No Protective Factors Assessment : No Responsible for young children: No Employed: No Stable relationships: Yes Supportive family: Yes Good rapport with provider: Yes Data Vital Signs Last 24 Hrs: Date Time Temp Pulse Resp B/P (MAP) Pulse Ox O2 Delivery O2 Flow Rate FiO2 09/10/17 06:57 36.6 81 18 133/79 (97) 98 Room Air 80 118/75 (89) 09/09/17 21:07 36.8 79 18 144/86 (105) 98 85 133/75 (94) Meds Administered Last 24 Hrs: Current Inpatient Medications Medications (Trade) Dose Ordered Sig/Kelsey Route Start Time Stop Time Status Last Admin Dose Admin Acetaminophen (Tylenol Tab) 650 mg Q4H PRN PO 08/10/17 20:00 10/09/17 19:58 09/06/17 07:53 650 MG Al Hydroxide/Mg Hydroxide (Maalox Susp) 30 ml Q4H PRN PO 08/10/17 20:00 10/09/17 19:58 08/30/17 11:57 30 ML Bismuth Subsalicylate (Kaopectate Liqd) 15 ml DAILY PRN PO 08/10/17 20:00 10/09/17 19:58 Magnesium Hydroxide (Milk Of Magnesia Susp) 30 ml DAILY PRN PO 08/10/17 20:00 10/09/17 19:58 08/26/17 15:08 30 ML Sodium Chloride (Miller Nasal [place]) PRN PRN NA 08/10/17 20:00 10/09/17 19:58 Atorvastatin Calcium (Lipitor Tab) 10 mg HS PO 08/10/17 22:00 10/09/17 21:58 09/09/17 20:35 10 MG Ergocalciferol (Vitamin D Cap) 50,000 interunit Mo@0900 PO 08/15/17 09:00 09/14/17 08:59 09/05/17 08:19 50,000 INTERUNIT Fish Oil ([place]-3 (Purified Fish Oil) Cap) 1 gm BID PO 08/10/17 22:00 10/09/17 21:58 09/10/17 08:42 1 GM Multivitamins/ Minerals (Multivitamin W/ Minerals Tab) 1 tab QAM PO 08/11/17 09:00 10/10/17 08:58 09/10/17 08:42 1 TAB Montelukast Sodium (Singulair Tab) 10 mg QAM PO 08/11/17 09:00 10/10/17 08:58 09/10/17 08:42 10 MG Pantoprazole Sodium (Protonix Tab) 40 mg QAM PO 08/11/17 09:00 10/10/17 08:58 09/10/17 08:42 40 MG Tramadol HCl (Ultram Tab) 50 mg Q6H PRN PO 08/10/17 20:15 10/09/17 20:13 09/09/17 16:11 50 MG wt-Wsont-Qjgxwhbanu Acetate (Vitamin E Cap) 400 interunit DAILY PO 08/11/17 09:00 10/10/17 08:58 09/10/17 08:42 400 INTERUNIT Melatonin (Melatonex) 9 mg HS PO 08/25/17 22:00 09/24/17 21:59 09/09/17 20:35 9 MG Perphenazine (Trilafon Tab) 4 mg Q6 PRN PO 08/27/17 08:30 09/26/17 08:29 09/07/17 11:25 4 MG Olanzapine (Zyprexa Tab) 20 mg HS PO 08/28/17 22:00 09/23/17 21:59 09/09/17 20:37 20 MG Propranolol HCl (Inderal Tab) 20 mg TID PRN PO 08/28/17 09:45 09/26/17 08:29 09/08/17 14:01 20 MG Lorazepam (Ativan Tab) 2 mg HS PO 08/28/17 22:00 09/27/17 21:59 09/09/17 20:34 2 MG Losartan Potassium (coZAAR TAB) 75 mg QAM PO 09/02/17 09:00 10/02/17 08:59 09/10/17 08:42 75 MG Divalproex Sodium (Depakote Extended Rel Tab) 1,000 mg HS PO 09/04/17 22:00 09/23/17 21:59 09/09/17 20:34 1,000 MG Lorazepam (Ativan Tab) 1 mg DAILY@1700 PO 09/05/17 17:00 09/29/17 16:59 09/09/17 17:26 1 MG Perphenazine (Trilafon Tab) 4 mg DAILY@1400 PO 09/06/17 14:00 10/06/17 13:59 09/09/17 14:49 4 MG Perphenazine (Trilafon Tab) 12 mg HS PO 09/06/17 22:00 10/06/17 21:59 09/09/17 20:37 12 MG Benzocaine (Orajel 20% Oral Gel) 1 appln BID PRN MT 09/06/17 12:45 10/06/17 12:44 09/10/17 04:48 1 APPLN Lab Results Last 24 Hrs: 09/04/17 09:09 Red Blood Count 3.43, Mean Corpuscular Volume 89.2, Mean Corpuscular Hemoglobin 29.2, Mean Corpuscular Hemoglobin Concent 32.7, Mean Platelet Volume 9.6, Neutrophils (%) (Auto) 69.8, Lymphocytes (%) (Auto) 18.6, Monocytes (%) (Auto) 8.7, Eosinophils (%) (Auto) 1.5, Basophils (%) (Auto) 0.2, Neutrophils # (Auto) 2.81, Lymphocytes # (Auto) 0.75, Monocytes # (Auto) 0.35, Eosinophils # (Auto) 0.06, Basophils # (Auto) 0.01 09/04/17 09:09 Test 08/10/17 12:35 08/10/17 12:56 08/26/17 00:00 08/29/17 09:07 Urine Opiates Screen NEG (NEG) Urine Methadone, Qualitative NEG (NEG) Urine Barbiturates NEG (NEG) Urine Phencyclidine (PCP) Level NEG (NEG) Ur Amphetamine/Methamphetamine NEG (NEG) MDMA (Ecstasy) Screen NEG (NEG) Urine Benzodiazepines Screen NEG (NEG) Urine Cocaine Metabolite NEG (NEG) Urine Marijuana (THC) NEG (NEG) Total Bilirubin 0.3 mg/dl (0.2-1) Aspartate Amino Transf (AST/SGOT) 22 U/L (15-37) Alanine Aminotransferase (ALT/SGPT) 49 U/L (12-78) Alkaline Phosphatase 130 U/L (45-117) Total Protein 7.2 gm/dl (6.4-8.2) Albumin 3.4 gm/dl (3.4-5.0) Globulin 3.8 gm/dl (2.5-4.0) Albumin/Globulin Ratio 0.9 (0.9-2) Salicylates Level < 1.7 mg/dl (2.8-20) Acetaminophen Level < 2 ug/ml (10-30) Ethyl Alcohol mg/dL < 3.0 mg/dl (0-3) Urine Color YELLOW Urine Appearance CLEAR (CLEAR) Urine pH 6.0 (4.5-7.5) Urine Specific [place] 1.009 (1.000-1.030) Urine Protein 1+ (NEG) Urine Glucose (UA) NEG (NEG) Urine Ketones NEG (NEG) Urine Occult Blood NEG (NEG) Urine Nitrite NEG (NEG) Urine Bilirubin NEG (NEG) Urine Urobilinogen NEG (NEG) Urine Leukocyte Esterase MODERATE (NEG) Urine WBC (Auto) 1-5 /hpf (0-5) Urine RBC (Auto) 0-4 /hpf (0-4) Urine Hyaline Casts (Auto) 0 /lpf (0-5) Urine Epithelial Cells (Auto) 5-10 /lpf (0-5) Urine Bacteria (Auto) NEG (NEG) [place] Level 0.4 mMOL/L (0.6-1.2) Test 09/04/17 09:09 09/09/17 09:20 White Blood Count 4.03 K/uL (4.8-10.8) Red Blood Count 3.43 M/uL (4.2-5.4) Hemoglobin 10.0 g/dL (12.0-16.0) Hematocrit 30.6 % (37-47) Mean Corpuscular Volume 89.2 fL (80-100) Mean Corpuscular Hemoglobin 29.2 pg (25-34) Mean Corpuscular Hemoglobin Concent 32.7 g/dl (32-36) Platelet Count 171 K/uL (130-400) Mean Platelet Volume 9.6 fL (7.4-10.4) Neutrophils (%) (Auto) 69.8 % Lymphocytes (%) (Auto) 18.6 % Monocytes (%) (Auto) 8.7 % Eosinophils (%) (Auto) 1.5 % Basophils (%) (Auto) 0.2 % Neutrophils # (Auto) 2.81 K/uL (1.4-6.5) Lymphocytes # (Auto) 0.75 K/uL (1.2-3.4) Monocytes # (Auto) 0.35 K/uL (0.11-0.59) Eosinophils # (Auto) 0.06 K/uL (0-0.5) Basophils # (Auto) 0.01 K/uL (0-0.2) RDW Standard Deviation 46.9 fL (36.4-46.3) RDW Coefficient of Variation 14.3 % (11.5-14.5) Immature Granulocyte % (Auto) 1.2 % Immature Granulocyte # (Auto) 0.05 K/uL (0.00-0.02) Miscellaneous Test REPORT Anion Gap 6.0 mmol/L (3-11) Est Creatinine Clear Calc Drug Dose 30.7 ml/min Estimated GFR () 42.6 Estimated GFR (Non- 36.8 BUN/Creatinine Ratio 15.3 (10-20) Calcium Level 9.0 mg/dl (8.5-10.1) Iron Level 64 mcg/dl (35-150) Total Iron Binding Capacity 304 mcg/dl (250-450) Transferrin 261 mg/dl (200-360) Transferrin % Saturation 17 % (15-50) Ferritin 156.5 ng/ml (8.0-388.0) Thyroid Stimulating Hormone (TSH) 1.710 uIu/ml (0.300-4.500) Valproic Acid (Depakene) Level 68 mcg/ml (50-100) Date/Time Source Procedure Growth Status 08/26/17 00:00 Urine , Clean Catch Urine Culture - Final MORE THAN THREE TYPES OF ORGANISMS GA... Complete Problem Qualifiers (1) Chronic kidney disease (CKD): Chronic kidney disease stage: stage 1 Qualified Codes: N18.1 - Chronic kidney disease, stage 1
[2017-09-10] MEDS: GABAPENTIN 100 MG CAP PO SCH ×2 (14:34→21:18)
[2017-09-10] MEDS: PERPHENAZINE 2 MG TAB PO SCH ×2 (14:34→21:18)
[2017-09-10] MEDS: LORAZEPAM 1 MG TAB PO SCH (16:03)
[2017-09-10 20:57] VITALS: BP_SYST 128; BP_SYST 130; BP_DIAS 60; BP_DIAS 69; PULSE 102; PULSE 94; TEMP 37.2; O2SAT 97
[2017-09-10 21:03] VITALS: BP 130/69; PULSE 102; PULSE 94; TEMP 37.2; O2SAT 97
[2017-09-10] MEDS: LORAZEPAM 2 MG TAB PO SCH (21:17)
[2017-09-10] MEDS: DIVALPROEX 500 MG EXTENDED RELEASE TAB PO SCH (21:17)
[2017-09-10] MEDS: ATORVASTATIN 10 MG TAB PO SCH (21:17)
[2017-09-10] MEDS: OLANZAPINE 20 MG TAB PO SCH (21:19)
[2017-09-10] MEDS: MELATONIN 3 MG PO SCH (21:19)
[2017-09-11] MEDS: LOSARTAN POTASSIUM 25 MG TAB PO SCH (08:26)
[2017-09-11] MEDS: CEROVITE ADV FORMULA TAB PO SCH (08:26)
[2017-09-11] MEDS: OMEGA-3 (PURIFIED FISH OIL) 1 GM CAP PO SCH ×2 (08:27→21:30)
[2017-09-11] MEDS: GABAPENTIN 100 MG CAP PO SCH ×3 (08:27→21:30)
[2017-09-11] MEDS: MONTELUKAST SOD 10 MG TAB PO SCH (08:28)
[2017-09-11] MEDS: PANTOprazole SOD 40 MG TAB PO SCH (08:28)
[2017-09-11] MEDS: TOCOPHERYL, DL-ALPHA 400 INTER.UNIT CAP PO SCH (08:28)
[2017-09-11 08:29] VITALS: BP_SYST 157; BP_SYST 173; BP_DIAS 74; BP_DIAS 82; PULSE 101; PULSE 112; TEMP 36.7
[2017-09-11] MEDS: TRAMADOL HCL 50 MG TAB PO PRN (09:40)
[2017-09-11] MEDS: PERPHENAZINE 2 MG TAB PO PRN ×2 (09:40→17:59)
--- NOTE | 2017-09-11 10:02 | Psychiatric Progress Notes ---
Progress Note Date of Service September 11, 2017. Interval History 67-year-old woman readmitted voluntarily for psychotic stefan 3 days after last hospitalization. She has been increasingly nonsensical and disorganized despite multiple med trials, complicated by delirium. Chief Complaint "I don't know what happened.". Subjective Patient was seen & assessed interval progress reviewed with Treatment Team. Nursing reports that she had a good day yesterday, with coherent conversations, and good behavioral control. Right before my interview, Brenda had come to the [facility] where she was watching TV, with a rambling monologue with hand movements. When attempts were made to get her to come to my interview room, she walked to the hallway and placed herself prone on the floor. With the assist of staff, she then returned to her room. during my interview she says she doesn't know what happened that she laid down. She goes on to describe her perceptions, including the actions of staff at the time. When asked about SI she says that she isn't sure. In terms of hallucinations she says that she hears the devil in the radio, and at one point says that she sees and hears the nurses "carry me away". She reports that her energy is "high" and that her thoughts are fast and is requesting ativan. She seems distracted to some degree by her racing thoughts, with some tangentiality to her conversation. She denies feeling angry today. Review of Systems Constitutional: No fever, No chills, No sweats, No weight loss, No weakness, No fatigue, No problem reported ENT: + hearing loss Respiratory: No cough, No sputum, No wheezing, No shortness of breath, No dyspnea on exertion, No dyspnea at rest, No hemoptysis, No problem reported Cardiovascular: No chest pain, No orthopnea, No PND, No edema, No claudication , No palpitations, No problem reported Abdomen: No pain, No nausea, No vomiting, No diarrhea, No constipation, No GI bleeding, No problem reported Musculoskeletal: No joint pain, No muscle pain, No swelling, No calf pain, No problem reported Neurologic: No memory loss, No paralysis, No weakness, No numbness/tingling, No vertigo, No balance problems, No problem reported Psychiatric: + problem reported (Hears the devil in the radio and sees/hears the nurses carry her away) Integumentary: No rash, No itch, No new/changing skin lesions, No color change , No bleeding, No problem reported Sleep Information Total Hours of Sleep: 4.75 Meal Information Percent of Breakfast Consumed: 100 Percent of Lunch Consumed: 75 Percent of Dinner Consumed: 100 Mental Status Exam During interview pt is: alert and oriented, cooperative Appearance: appropriately dressed, appropriately groomed Eye contact is: good Motor behavior is: other (laid herself down on the floor) Speech: loud (at times), other (Speech is more clear and articulate) Affect: labile (pleasant to angry) Mood is: other ("Fine") Thought process: tangential Thought content: cognitive distortions Suicidal thought are: denied, Plan: denied, Intent: denied Homicidal thoughts are: denied Hallucinations: auditory (devil in the radio), denies visual Cognition: language grossly intact Intelligence estimated to be: average Insight: severely impaired Judgement: severely impaired Impression Sleep somewhat better last night and had a relatively good day yesterday, but impusivity still a problem. Initiated neurontin yesterday and today will titrate to 200 mg. TID and maintain depakote 500 mg. HS and other meds. Plan (1) Bipolar 1 disorder with mixed features 08/11 - Increase Klonopin back to 1.5 mg HS to target sleep - Will DC lithium at this point due to concerns for her age and renal status - Will increase Risperdal to 1 mg. AM and 7 mg HS - Will DC navane to reduce polypharmacy - Continue prn haldol and increase to q 4 hr prn - Will have nursing attempt to preauth Vraylar to trial - DC Zoloft - Q 15 min checks for safety - Encourage participation in group and individual counseling as tolerated - Coordinate with current providers - had FLP and FBS on 07/23/17. All WNL with the exception of triglycerides of 151 and FBS 129 08/12 - Vraylar trial when Alex can bring it in - Start 1.5 mg daily increasing to 3 mg daily the following day. - Will taper risperdal at the same time 08/13 -Vraylar was actually started at 3mg hs on 08/12 since only 3mg capsules for supply. given s/e profile will move vraylar to earlier in day, will maintain pt at 3mg for time being given long half life of med and long half life of active metabolite tapering risperdal maintained at 1mg am and 3mg hs for now since just lowered by 4mg continue prn haldol doses 08/14 -maintained vraylar 3mg qday -maintained risperdal 1mg am and 3mg hs for now, aim to wean risperdal further as adjusting to vraylar over next days 08/15 - Continue Vraylar 3mg daily - Plan to continue to taper risperdal, however patient appears to be displaying more restlessness today in regard to manic behaviors and requiring redirection from staff and prn Haldol more frequently. - Attempt to determine proximity to baseline with visits from her fiance 08/16 - Vraylar increased to 6mg daily 08/17 - Discontinue risperidone due to inefficacy, and increase Haldol prn to 10mg. - Resume trihexphenidyl at 1mg daily and monitor restlessness as able. Challenging to know if her agitation is due to akathisia, anxiety, psychosis, or stefan, and she is a limited historian. 08/18 - DC haldol due to no response - Start Thorazine 25 mg. q 2 hr prn during the day and 100 mg. scheduled at HS 08/19 - Increase thorazine to 50 q 3 hr prn and 200 mg. HS - Try to maintain good sleep wake cycles - EKG today 08/20 - 150mg of [place] to be added this evening to stabilize mood in interim of response to Vraylar, level in 5 days to monitor for possible toxicity. - Increase Klonopin to 2.5mg qHS to better target sleep. Pt remains on 1-to- 1 observation currently, continue safety precautions for fall risk with medication changes - Encourage sleep as able, with target to keep patient in appropriate sleep- wake cycle. Daytime naps are limited in length. 08/21 - Li restarted yesterday which is not expected to demonstrate a quick benefit but in deference to long standing treatment and increased risk for ongoing mood instability off the medication. given renal impairment, she will need more frequent monitoring but the potential benefit is felt to outweigh the risk given the severity of her underlying mental health d/o. I would suggest maintaining this very low dose and checking a level on the (which I ordered today) before further titration. - sleeping more in last 24h getting high dose Thorazine which, unfortunately , may also be making her delirious. I am uncertain if she has been treated with high dose seroquel previously but that could be considered as an alternative if she struggles to tolerate the Thorazine moving forward. - will increase melatonin to 9mg qhs for additional sleep benefit with minimal risk for worsening delirium. could also consider temporarily maximizing ambien at 10mg but will defer for today 2/2 delirium as sleep is presently improving which will hopefully show antimanic effect. 08/22 - Continue on Thorazine, Vraylar, [place], and Klonopin. [place] level ordered for 08/25. - Will attempt to develop plan to decrease low-dose polypharmacy; Pt's significant other hesitant for other medication changes and is unwilling for ECT at this time - Continue delirium protocol with encouraging appropriate sleep/wake cycles 08/23 -Continue environmental and behavioral interventions for delirium, reviewed her medications and attempting to eliminate unnecessary medications ( cholestyramine discontinued as she was refusing it and not acutely important). -Try to consolidate sleep at night; continue melatonin 9 mg, clonazepam 2.5 mg, zolpidem 5 mg, and chlorpromazine 200 mg at bedtime. -Continue Vraylar 6 mg every morning (started 08/12/2017). -Continue trihexyphenidyl 1 mg every morning for akathisia. -[place] 150 mg at bedtime restarted 08/20/2017; level and BMP ordered for . 08/24 1. DC Vraylar- Has not shown any improvement since added 2. DC Thorazine- No significant improvement and contributing to anticholinergic load 3. DC Artane- Difficult to tell whether she is restless or whether restlessness is due to stefan, and concern for anticholinergic load 4. DC Ambien- Can contribute to confusion, especially in women 5. DC Vistaril- due to concerns for anticholinergic load 6. Retrial Depakote ER 500 mg. HS titrated to therapeutic level. Has been on this in the past but reports from pt and Alex provide different memories of it. 7. Trial Zyprexa- Will start low with 5 mg due to long half life of Vraylar , to target stefan 8. Continue lithium low dose, re-added due to concerns that withdrawing it after she has been on it for years has contributed to deterioration. Caution to renal status 9. Continue Klonopin 10. Continue Tramadol prn, but have encouraged nursing to use it only sparingly. 08/25 -Increase olanzapine to 7.5mg HS and prn to 5mg. -[place] trough 0.3; creatinine and BUN up slightly at 30 and 1.77. Continue to encourage adequate hydration, and will recheck lithium trough and BMP in 4 days. -Continue Depakote 500 mg nightly, and check a Depakote trough on 08/29/2017. -Consideration for ECT stefan, psychosis, and delirium do not improve. 08/26 -Increase HS zyprexa to 10 mg. continue prn's - Continue to encourage hydration - Continue depakote with level 08/29 - Will obtain CBC and UA to rule out UTI, dyscrasia - Continue to consider ECT if no improvement 08/27 --continue Zyprexa titration to 15 mg po qhs, d/c prn doses as no apparently benefit; given longstanding rx with a typical antipsychotic (Navane) and some response to Haldol prn, trial of Trilafon prn agitation. --restlessness appears to be related to catatonia in my opinion rather than akathisia. That said, will offer prn beta brad as trial for comfort, BP has been elevated anyway, would prefer to implement this rather than increasing Cozaar acutely --no clear benefit from hs clonazepam and treatment of choice for catatonia is lorazepam so taper Klonopin in favor of Ativan TID + prn. Remains on 1-on-1 for falls precautions. 08/28 --continue Zyprexa titration to 20 mg po qhs --may use propranolol TID prn --replace HS Klonopin with 2 mg Ativan as appears more effective 08/29 - Continue Zyprexa 20mg qHS, propranolol TID prn, Ativan 2mg qHS, and prn Trilafon - Recent labs reviewed: Li level = 0.4; Depakote level = 27 - BUN elevated at 36, creatinine elevated at 1.88. GFR = 27.5. - Due to progressive worsening of kidney function and apparent improvement with addition of other agents, will discontinue [place] at this time. - Increase Depakote to 750mg tonight. Depakote trough level ordered for 2017. 08/30 - Continue current meds with the exception of stopping AM ativan due to sedation, and concerns for fall risk 08/31 -Continue current medications, including Lorazepam 1 mg q. 1200 and 1700 hrs. and 2 mg at bedtime, Depakote 750 mg nightly, olanzapine 20 mg nightly, propanolol 20 mg 3 times daily as needed for restlessness, perphenazine 4 mg as needed for agitation, and melatonin 9 mg at bedtime. -Continue one-to-one monitoring. 09/01 - Continue current meds and plan including 1:1 09/02 - Add Trilafon 4 mg. TID 09/03 - increase trilafon to and pending VPA level and BMP on 09/04, will add CBC due to BRBPR yesterday due to hemrrhoids, and TSH (see below). will watch her sedation and if sedated will lower ativan 09/04/17 - patient is not showing tangible gains from this provider's review of chart and observation over last 2 days. Nursing staff felt she was less pervasively agitated on 09/03, and but she seems to continue to demonstrate pattern of delirium (waxing and waning mental state with fragmented sleep, hallucinations and waking in anxious state disoriented, labile) The inpatient team has done a heroic job of caring for this woman who has very complicated and refractory primary mental health condition and what appears to be superimposed delirium her prognosis is poor. She did best on lithium as a component of her treatment to date. Review of record is that patient's kidney function (creatinine and BUN) worsened on lithium earlier this month, but at 150mg/hs for 7days she had two of her best days inpatient on 08/29 (date of discontinuation), and 08/30 (day after discontinuation) even though her level was only 0.4 on 08/29. I will discuss with primary team as there are very serious risks of returning to lithium. - it is not clear if remeron provided an improvement for patient last night, or it was the last of a series of several sedating medications. Although it is optimal in delirium to keep up in the day and sleep at night, given she is only getting 1-4hours/night it is hard to justify waking her only for her to be agitated in the day today. Will discuss with staff and attempt to keep her up to a degree possible with light cues and stimulus in the day and lower stimulus at night - continue trilafon for now scheduled with PRN, she did require less in the last 24hours than the preceding day but it remains to be see if that is improvement - increase Depakote from 750 (level 57, free level pending) to 1000mg tonight repeat level ordered for 09/09/17 AM - she is anemic, stably so compared to 07/2017, but will draw ferritin, transferin and transferrin Saturation and TIBC to r/o iron deficiency as contributing to RLS as she is anemic, would replete with oral iron if this returns low, will discus with primary team as vitamin E may impair the response for her iron deficiency anemia - consider MVI in place of vitamin E (as not to over- dose with time) - avoid anticholinergics - she remains on benzodiazepines at this time (combination of scheduled and prns getting 5-6mg/day in the last 2 days), and although there was prior speculation of agitated catatonia in the chart it is not clear to me that the current prn doses are meaningfully helpful and can worsen delirium. Will maintain scheduled ativan 1mg 12, 1mg 1700 and 2mg/hs but stop the prn doses, and prefer trilafon prn psychosis/agitation - will not write for standing dose of remeron but if staff call again this evening after scheduled medications and patient is not sleeping would consider again giving 7.5mg remeron with caution monitoring for oversedation and future mood elevation, and watch RLS - will ask staff to get a clock drawing for goal of serial clock drawings overtime can assist in tracking delirium recovery 09/05 -Continue Depakote 1000 mg nightly, with a repeat trough level on 09/09/2017. -Continue olanzapine 20 mg nightly, perphenazine 4 mg twice daily and 8 mg nightly, and decrease Lorazepam to 1 mg q. 1700 and 2 mg nightly (discontinuing the 1 mg dose at noon). Continue perphenazine and propranolol as needed's. 09/06 - AM sedation, but poor sleep at night. Shift trilafon to 4 mg. at 1400 and 12 mg. HS 09/07 -Continue current medications and one-to-one supervision, private room, and fall precautions. 09/08 - Continue current plan and meds. 09/09 - Continue current medications - Depakote level this morning = 68 09/10 - Irritable and impulsive on Depakote. Will taper to 500 mg. HS and start trial of Neurontin 100 mg. TID titrating as tolerated. - Will need to monitor renal functions over time 09/11 - Increase Neurontin to 200 mg. TID (2) Chronic kidney disease (CKD) 08/11 - DC lithium. Will attempt to stabilize mood with atypicals - Collaborate with Dr. Ovalles as needed 08/20 - Restart [place] at 150mg qHS in attempt to stabilize mood and target manic behaviors. Ideally would be used in the short-term until response to Vraylar is more evident; however, patient is known to have responded well in the past. 08/21 - increase losartan to 50mg for persistently elevated BP's 08/23 -Low-dose lithium resumed 08/20/2017 due to acute worsening of psychiatric symptoms thought possibly due to discontinuation of lithium after being on it for many years. [place] trough and BMP ordered for 08/25/2017. 08/25 -[place] trough level 0.3, BUN 30, creatinine 1.77. These are up slightly from 08/10/2017, 1 BUN was 23 and creatinine 1.46. We will continue to monitor closely, ensure adequate hydration, and recheck in 4 days. If kidney function worsens, we will need to discontinue the lithium, as previously discussed with nephrology (Dr. Foreman on 07/25/2017). 08/29 - Labs reviewed: Li level = 0.4. BUN and Cr elevated at 36 and 1.88 respectively. GFR as outpatient progressively decreasing from 43.6 to 38.3. Most recent GFR = 27.5 - Will d/c [place] in favor of Depakote titration 08/31 -Will recheck BMP on 09/04/2017 to monitor kidney function. Continue to encourage fluids. 09/04 - Cr 1.48 and BUN 23, continue to encourage fluids (3) Hypothyroidism 08/11 - TSH WNL and not on levothyroxine. - May have had abnl values in the past related to being on lithium 08/26 - BP elevated. Will increase Cozaar to 75 mg. daily - VS BID 09/03/17 - will add TSH to labs for tomorrow given exopthalamos, h/o hypothyroid and not on levothyroxine 09/04 TSH WNL (4) Hyperlipemia 08/11 - Continue home dose of atorvastatin - FLP done 07/24 08/23 -Patient intermittently refusing cholestyramine; discontinue for now as also on atorvastatin and trying to limit polypharmacy. (5) Hypertension 08/31 -has been persistently hypertensive for the past several days, and intermittently hypertensive throughout her stay. No known history of hypertension, and EKG on 08/19/2017 was normal sinus rhythm. Consider need for hospitalist assistance if hypertension persists. 09/03 - normotensive this AM was hypertensive last evening but may also correlate with values taken at time of agitation, will monitor closely, Temp is not elevated and will check WBC tomorrow, do not think this is related to malignant catatonia at this time 09/04 - BP varies high in the evening and lower in the day, continue to monitor closely 09/07 - Was normotensive for 2 days, and yesterday evening had elevated blood pressure, but again normal this morning. Continue to monitor. Discharge / Aftercare Planning Primary Care Physician: Name: [email or web address] Appointment Notes: [address] [place] [address] Psychiatrist: Name: Dr. Hahn, [facility] Appointment Notes: [address] [place] [id number] Therapist: Name: Katerina Valerio [facility] Appointment Notes: [address] [place] [id number] Sailing Instructor: Name: Zulay Macias [facility] Services: Home Health Services: social worker delinquency prevention, home health agency Home Health Agency: [facility] Specialist: Name: Dr. Demarcus Ovalles, Associate Dentist [facility] [place] Number: [phone] Date of Appointment: Oct 21, 2017 Time of Appointment: 1:15pm Visit Code E&M Code: 27710 Inventory Assets Strengths: Support from partner, good relationship with outpatient provider Needs: Clarity with her medications Risk Factors Assessment : Yes /single/: No Higher / Fall in social status: No Access to guns: No Health problems: Yes Mental Health Diagnoses: Yes Substance use disorders: No Previous attempt: Yes Family history of suicide: Yes Previous psychiatric stay: Yes Hopelessness: No Smoker: No Protective Factors Assessment : No Responsible for young children: No Employed: No Stable relationships: Yes Supportive family: Yes Good rapport with provider: Yes Data Vital Signs Last 24 Hrs: Date Time Temp Pulse Resp B/P (MAP) Pulse Ox O2 Delivery O2 Flow Rate FiO2 09/11/17 08:29 36.7 101 18 173/82 (112) 112 157/74 (101) 09/10/17 21:03 37.2 94 20 130/69 (89) 97 Room Air 102 09/10/17 20:57 37.2 94 20 128/60 (82) 97 Room Air 102 130/69 (89) Meds Administered Last 24 Hrs: Meds Administered (Past 24Hrs) Medications (Trade) Dose Ordered Sig/Kelsey Route Start Time Stop Time Status Last Admin Dose Admin Divalproex Sodium (Depakote Extended Rel Tab) 500 mg HS PO 09/10/17 22:00 10/10/17 21:59 09/10/17 21:17 500 MG Gabapentin (Neurontin Cap) 100 mg TID PO 09/10/17 14:00 10/10/17 13:59 09/11/17 08:27 100 MG Lab Results Last 24 Hrs: 09/04/17 09:09 Red Blood Count 3.43, Mean Corpuscular Volume 89.2, Mean Corpuscular Hemoglobin 29.2, Mean Corpuscular Hemoglobin Concent 32.7, Mean Platelet Volume 9.6, Neutrophils (%) (Auto) 69.8, Lymphocytes (%) (Auto) 18.6, Monocytes (%) (Auto) 8.7, Eosinophils (%) (Auto) 1.5, Basophils (%) (Auto) 0.2, Neutrophils # (Auto) 2.81, Lymphocytes # (Auto) 0.75, Monocytes # (Auto) 0.35, Eosinophils # (Auto) 0.06, Basophils # (Auto) 0.01 09/04/17 09:09 Test 08/10/17 12:35 08/10/17 12:56 08/26/17 00:00 08/29/17 09:07 Urine Opiates Screen NEG (NEG) Urine Methadone, Qualitative NEG (NEG) Urine Barbiturates NEG (NEG) Urine Phencyclidine (PCP) Level NEG (NEG) Ur Amphetamine/Methamphetamine NEG (NEG) MDMA (Ecstasy) Screen NEG (NEG) Urine Benzodiazepines Screen NEG (NEG) Urine Cocaine Metabolite NEG (NEG) Urine Marijuana (THC) NEG (NEG) Total Bilirubin 0.3 mg/dl (0.2-1) Aspartate Amino Transf (AST/SGOT) 22 U/L (15-37) Alanine Aminotransferase (ALT/SGPT) 49 U/L (12-78) Alkaline Phosphatase 130 U/L (45-117) Total Protein 7.2 gm/dl (6.4-8.2) Albumin 3.4 gm/dl (3.4-5.0) Globulin 3.8 gm/dl (2.5-4.0) Albumin/Globulin Ratio 0.9 (0.9-2) Salicylates Level < 1.7 mg/dl (2.8-20) Acetaminophen Level < 2 ug/ml (10-30) Ethyl Alcohol mg/dL < 3.0 mg/dl (0-3) Urine Color YELLOW Urine Appearance CLEAR (CLEAR) Urine pH 6.0 (4.5-7.5) Urine Specific [place] 1.009 (1.000-1.030) Urine Protein 1+ (NEG) Urine Glucose (UA) NEG (NEG) Urine Ketones NEG (NEG) Urine Occult Blood NEG (NEG) Urine Nitrite NEG (NEG) Urine Bilirubin NEG (NEG) Urine Urobilinogen NEG (NEG) Urine Leukocyte Esterase MODERATE (NEG) Urine WBC (Auto) 1-5 /hpf (0-5) Urine RBC (Auto) 0-4 /hpf (0-4) Urine Hyaline Casts (Auto) 0 /lpf (0-5) Urine Epithelial Cells (Auto) 5-10 /lpf (0-5) Urine Bacteria (Auto) NEG (NEG) [place] Level 0.4 mMOL/L (0.6-1.2) Test 09/04/17 09:09 09/09/17 09:20 White Blood Count 4.03 K/uL (4.8-10.8) Red Blood Count 3.43 M/uL (4.2-5.4) Hemoglobin 10.0 g/dL (12.0-16.0) Hematocrit 30.6 % (37-47) Mean Corpuscular Volume 89.2 fL (80-100) Mean Corpuscular Hemoglobin 29.2 pg (25-34) Mean Corpuscular Hemoglobin Concent 32.7 g/dl (32-36) Platelet Count 171 K/uL (130-400) Mean Platelet Volume 9.6 fL (7.4-10.4) Neutrophils (%) (Auto) 69.8 % Lymphocytes (%) (Auto) 18.6 % Monocytes (%) (Auto) 8.7 % Eosinophils (%) (Auto) 1.5 % Basophils (%) (Auto) 0.2 % Neutrophils # (Auto) 2.81 K/uL (1.4-6.5) Lymphocytes # (Auto) 0.75 K/uL (1.2-3.4) Monocytes # (Auto) 0.35 K/uL (0.11-0.59) Eosinophils # (Auto) 0.06 K/uL (0-0.5) Basophils # (Auto) 0.01 K/uL (0-0.2) RDW Standard Deviation 46.9 fL (36.4-46.3) RDW Coefficient of Variation 14.3 % (11.5-14.5) Immature Granulocyte % (Auto) 1.2 % Immature Granulocyte # (Auto) 0.05 K/uL (0.00-0.02) Miscellaneous Test REPORT Anion Gap 6.0 mmol/L (3-11) Est Creatinine Clear Calc Drug Dose 30.7 ml/min Estimated GFR () 42.6 Estimated GFR (Non- 36.8 BUN/Creatinine Ratio 15.3 (10-20) Calcium Level 9.0 mg/dl (8.5-10.1) Iron Level 64 mcg/dl (35-150) Total Iron Binding Capacity 304 mcg/dl (250-450) Transferrin 261 mg/dl (200-360) Transferrin % Saturation 17 % (15-50) Ferritin 156.5 ng/ml (8.0-388.0) Thyroid Stimulating Hormone (TSH) 1.710 uIu/ml (0.300-4.500) Valproic Acid (Depakene) Level 68 mcg/ml (50-100) Date/Time Source Procedure Growth Status 08/26/17 00:00 Urine , Clean Catch Urine Culture - Final MORE THAN THREE TYPES OF ORGANISMS MT... Complete Problem Qualifiers (1) Chronic kidney disease (CKD): Chronic kidney disease stage: stage 1 Qualified Codes: N18.1 - Chronic kidney disease, stage 1
[2017-09-11] MEDS ORDERED: GABAPENTIN 100 MG CAP PO ONE (10:30)
[2017-09-11] MEDS: PERPHENAZINE 2 MG TAB PO SCH ×2 (14:27→21:31)
[2017-09-11] MEDS: LORAZEPAM 1 MG TAB PO SCH (17:08)
[2017-09-11 21:19] VITALS: BP 148/78; PULSE 82
[2017-09-11] MEDS: LORAZEPAM 2 MG TAB PO SCH (21:29)
[2017-09-11] MEDS: DIVALPROEX 500 MG EXTENDED RELEASE TAB PO SCH (21:29)
[2017-09-11] MEDS: MELATONIN 3 MG PO SCH (21:30)
[2017-09-11] MEDS: ATORVASTATIN 10 MG TAB PO SCH (21:30)
[2017-09-11] MEDS: OLANZAPINE 20 MG TAB PO SCH (21:31)
[2017-09-12 07:09] VITALS: BP 145/68; PULSE 91; TEMP 37.1
--- NOTE | 2017-09-12 08:13 | Psychiatric Progress Notes ---
Progress Note Date of Service September 12, 2017. Interval History 67-year-old woman readmitted voluntarily for psychotic stefan 3 days after last hospitalization. She has had a complicated course, daily multiple medication trials, and with overlying delirium. Chief Complaint "hhhhh..." Subjective Patient was seen & assessed interval progress reviewed with Treatment Team. Staff report she slept better last night, 5.5 hours. She continues to be on 1:1 and in a private room, at times is calm and cooperative, but at other times is agitated, requires significant redirection, as she will lie down on the floor and refuse to get up, throw things, and is irritable with erratic behavior. She was seen in her room today, where she was seated on the bed. She often answers with unrelated information, even when the question is written down for her. When asked about her mood, she started talking about the multiple medications she has tried recently. With redirection, she stated her mood was "shazam," which she says means "good." She denies hallucinations, reports good sleep and appetite. At times, she is falling asleep, and states she is tired. She reports "horrible thoughts, grinding myself up, shopping myself up," but says "no way" when asked if she has any desire or intent to harm herself. She denies thoughts of harming anyone else. She reports forgetfulness, stating she keeps misplacing things like her sunglasses, and then thinks that other people are taking her things. When asked if she has any questions, she became agitated , yelling that she wants to go home, and kicking her bedside table while hitting her mattress with both hands. She was able to calm down with redirection. She was reminded that she needs to be able to stay in good behavioral control in order to be discharged, and expressed understanding. He told staff she wanted to kill herself or have someone kill her, said she wanted to , talked about jumping [place], and having somebody "violently kill" her by "shooting, stabbing, cutting her body into pieces and grinding up her body parts." She excepted a dose of perphenazine as needed. Sleep Information Total Hours of Sleep: 5.50 Meal Information Percent of Breakfast Consumed: 100 Percent of Lunch Consumed: 100 Percent of Dinner Consumed: 100 Mental Status Exam During interview pt is: alert and oriented, cooperative (Partially) Appearance: appropriately dressed, appropriately groomed Eye contact is: good Motor behavior is: other (At the end of the interview, became agitated, kicking her bedside table and pounding her fists on her bed) Speech: loud (at times), other (At times yelling, other times mumbling softly and incoherently) Affect: labile (pleasant to angry) Mood is: other ("Shazam.") Thought process: tangential, incoherent (At time) Thought content: cognitive distortions, other (Intrusive thoughts of other people killing her violently) Suicidal thought are: present (Multiple plans as above) Homicidal thoughts are: denied Hallucinations: denies auditory, denies visual Cognition: other (Impaired) Intelligence estimated to be: average Insight: severely impaired Judgement: severely impaired Medication Trials lithium - renal failure risperidone thiothixene quetiapine haloperidol Vraylar - ineffective after 12 days chlorpromazine perphenazine Depakote Artane - questionably effective for akathisia benztropine clonazepam lorazepam clozapine - listed as allergy ECT - ineffective per boyfriend sertraline zolpidem gabapentin propranolol Impression Sleep improving, but still labile, irritable, and impulsivity still a problem. Depakote was decreased and gabapentin started over the weekend, she continues to utilize perphenazine as needed. She is reporting suicidal thoughts and wanting someone to kill her violently today, and remains on one-to-one for her safety. Plan (1) Bipolar 1 disorder with mixed features 08/11 - Increase Klonopin back to 1.5 mg HS to target sleep - Will DC lithium at this point due to concerns for her age and renal status - Will increase Risperdal to 1 mg. AM and 7 mg HS - Will DC navane to reduce polypharmacy - Continue prn haldol and increase to q 4 hr prn - Will have nursing attempt to preauth Vraylar to trial - DC Zoloft - Q 15 min checks for safety - Encourage participation in group and individual counseling as tolerated - Coordinate with current providers - had FLP and FBS on 07/23/17. All WNL with the exception of triglycerides of 151 and FBS 129 08/12 - Vraylar trial when Alex can bring it in - Start 1.5 mg daily increasing to 3 mg daily the following day. - Will taper risperdal at the same time 08/13 -Vraylar was actually started at 3mg hs on 08/12 since only 3mg capsules for supply. given s/e profile will move vraylar to earlier in day, will maintain pt at 3mg for time being given long half life of med and long half life of active metabolite tapering risperdal maintained at 1mg am and 3mg hs for now since just lowered by 4mg continue prn haldol doses 08/14 -maintained vraylar 3mg qday -maintained risperdal 1mg am and 3mg hs for now, aim to wean risperdal further as adjusting to vraylar over next days 08/15 - Continue Vraylar 3mg daily - Plan to continue to taper risperdal, however patient appears to be displaying more restlessness today in regard to manic behaviors and requiring redirection from staff and prn Haldol more frequently. - Attempt to determine proximity to baseline with visits from her fiance 08/16 - Vraylar increased to 6mg daily 08/17 - Discontinue risperidone due to inefficacy, and increase Haldol prn to 10mg. - Resume trihexphenidyl at 1mg daily and monitor restlessness as able. Challenging to know if her agitation is due to akathisia, anxiety, psychosis, or stefan, and she is a limited historian. 08/18 - DC haldol due to no response - Start Thorazine 25 mg. q 2 hr prn during the day and 100 mg. scheduled at HS 08/19 - Increase thorazine to 50 q 3 hr prn and 200 mg. HS - Try to maintain good sleep wake cycles - EKG today 08/20 - 150mg of [place] to be added this evening to stabilize mood in interim of response to Vraylar, level in 5 days to monitor for possible toxicity. - Increase Klonopin to 2.5mg qHS to better target sleep. Pt remains on 1-to- 1 observation currently, continue safety precautions for fall risk with medication changes - Encourage sleep as able, with target to keep patient in appropriate sleep- wake cycle. Daytime naps are limited in length. 08/21 - Li restarted yesterday which is not expected to demonstrate a quick benefit but in deference to long standing treatment and increased risk for ongoing mood instability off the medication. given renal impairment, she will need more frequent monitoring but the potential benefit is felt to outweigh the risk given the severity of her underlying mental health d/o. I would suggest maintaining this very low dose and checking a level on the (which I ordered today) before further titration. - sleeping more in last 24h getting high dose Thorazine which, unfortunately , may also be making her delirious. I am uncertain if she has been treated with high dose seroquel previously but that could be considered as an alternative if she struggles to tolerate the Thorazine moving forward. - will increase melatonin to 9mg qhs for additional sleep benefit with minimal risk for worsening delirium. could also consider temporarily maximizing ambien at 10mg but will defer for today 2/2 delirium as sleep is presently improving which will hopefully show antimanic effect. 08/22 - Continue on Thorazine, Vraylar, Selinsgrove, and Klonopin. [place]ve level ordered for 08/25. - Will attempt to develop plan to decrease low-dose polypharmacy; Pt's significant other hesitant for other medication changes and is unwilling for ECT at this time - Continue delirium protocol with encouraging appropriate sleep/wake cycles 08/23 -Continue environmental and behavioral interventions for delirium, reviewed her medications and attempting to eliminate unnecessary medications ( cholestyramine discontinued as she was refusing it and not acutely important). -Try to consolidate sleep at night; continue melatonin 9 mg, clonazepam 2.5 mg, zolpidem 5 mg, and chlorpromazine 200 mg at bedtime. -Continue Vraylar 6 mg every morning (started 08/12/2017). -Continue trihexyphenidyl 1 mg every morning for akathisia. -Sel[place]ve 150 mg at bedtime restarted 08/20/2017; level and BMP ordered for . 08/24 1. DC Vraylar- Has not shown any improvement since added 2. DC Thorazine- No significant improvement and contributing to anticholinergic load 3. DC Artane- Difficult to tell whether she is restless or whether restlessness is due to stefan, and concern for anticholinergic load 4. DC Ambien- Can contribute to confusion, especially in women 5. DC Vistaril- due to concerns for anticholinergic load 6. Retrial Depakote ER 500 mg. HS titrated to therapeutic level. Has been on this in the past but reports from pt and Alex provide different memories of it. 7. Trial Zyprexa- Will start low with 5 mg due to long half life of Vraylar , to target stefan 8. Continue lithium low dose, re-added due to concerns that withdrawing it after she has been on it for years has contributed to deterioration. Caution to renal status 9. Continue Klonopin 10. Continue Tramadol prn, but have encouraged nursing to use it only sparingly. 08/25 -Increase olanzapine to 7.5mg HS and prn to 5mg. -Selinsgrove trough 0.3; creatinine and BUN up slightly at 30 and 1.77. Continue to encourage adequate hydration, and will recheck lithium trough and BMP in 4 days. -Continue Depakote 500 mg nightly, and check a Depakote trough on 08/29/2017. -Consideration for ECT stefan, psychosis, and delirium do not improve. 08/26 -Increase HS zyprexa to 10 mg. continue prn's - Continue to encourage hydration - Continue depakote with level 08/29 - Will obtain CBC and UA to rule out UTI, dyscrasia - Continue to consider ECT if no improvement 08/27 --continue Zyprexa titration to 15 mg po qhs, d/c prn doses as no apparently benefit; given longstanding rx with a typical antipsychotic (Navane) and some response to Haldol prn, trial of Trilafon prn agitation. --restlessness appears to be related to catatonia in my opinion rather than akathisia. That said, will offer prn beta brad as trial for comfort, BP has been elevated anyway, would prefer to implement this rather than increasing Cozaar acutely --no clear benefit from hs clonazepam and treatment of choice for catatonia is lorazepam so taper Klonopin in favor of Ativan TID + prn. Remains on 1-on-1 for falls precautions. 08/28 --continue Zyprexa titration to 20 mg po qhs --may use propranolol TID prn --replace HS Klonopin with 2 mg Ativan as appears more effective 08/29 - Continue Zyprexa 20mg qHS, propranolol TID prn, Ativan 2mg qHS, and prn Trilafon - Recent labs reviewed: Li level = 0.4; Depakote level = 27 - BUN elevated at 36, creatinine elevated at 1.88. GFR = 27.5. - Due to progressive worsening of kidney function and apparent improvement with addition of other agents, will discontinue Selinsgrove at this time. - Increase Depakote to 750mg tonight. Depakote trough level ordered for 2017. 08/30 - Continue current meds with the exception of stopping AM ativan due to sedation, and concerns for fall risk 08/31 -Continue current medications, including Lorazepam 1 mg q. 1200 and 1700 hrs. and 2 mg at bedtime, Depakote 750 mg nightly, olanzapine 20 mg nightly, propanolol 20 mg 3 times daily as needed for restlessness, perphenazine 4 mg as needed for agitation, and melatonin 9 mg at bedtime. -Continue one-to-one monitoring. 09/01 - Continue current meds and plan including 1:1 09/02 - Add Trilafon 4 mg. TID 09/03 - increase trilafon to and pending VPA level and BMP on 09/04, will add CBC due to BRBPR yesterday due to hemrrhoids, and TSH (see below). will watch her sedation and if sedated will lower ativan 09/04/17 - patient is not showing tangible gains from this provider's review of chart and observation over last 2 days. Nursing staff felt she was less pervasively agitated on 09/03, and but she seems to continue to demonstrate pattern of delirium (waxing and waning mental state with fragmented sleep, hallucinations and waking in anxious state disoriented, labile) The inpatient team has done a heroic job of caring for this woman who has very complicated and refractory primary mental health condition and what appears to be superimposed delirium her prognosis is poor. She did best on lithium as a component of her treatment to date. Review of record is that patient's kidney function (creatinine and BUN) worsened on lithium earlier this month, but at 150mg/hs for 7days she had two of her best days inpatient on 08/29 (date of discontinuation), and 08/30 (day after discontinuation) even though her level was only 0.4 on 08/29. I will discuss with primary team as there are very serious risks of returning to lithium. - it is not clear if remeron provided an improvement for patient last night, or it was the last of a series of several sedating medications. Although it is optimal in delirium to keep up in the day and sleep at night, given she is only getting 1-4hours/night it is hard to justify waking her only for her to be agitated in the day today. Will discuss with staff and attempt to keep her up to a degree possible with light cues and stimulus in the day and lower stimulus at night - continue trilafon for now scheduled with PRN, she did require less in the last 24hours than the preceding day but it remains to be see if that is improvement - increase Depakote from 750 (level 57, free level pending) to 1000mg tonight repeat level ordered for 09/09/17 AM - she is anemic, stably so compared to 07/2017, but will draw ferritin, transferin and transferrin Saturation and TIBC to r/o iron deficiency as contributing to RLS as she is anemic, would replete with oral iron if this returns low, will discus with primary team as vitamin E may impair the response for her iron deficiency anemia - consider MVI in place of vitamin E (as not to over- dose with time) - avoid anticholinergics - she remains on benzodiazepines at this time (combination of scheduled and prns getting 5-6mg/day in the last 2 days), and although there was prior speculation of agitated catatonia in the chart it is not clear to me that the current prn doses are meaningfully helpful and can worsen delirium. Will maintain scheduled ativan 1mg 12, 1mg 1700 and 2mg/hs but stop the prn doses, and prefer trilafon prn psychosis/agitation - will not write for standing dose of remeron but if staff call again this evening after scheduled medications and patient is not sleeping would consider again giving 7.5mg remeron with caution monitoring for oversedation and future mood elevation, and watch RLS - will ask staff to get a clock drawing for goal of serial clock drawings overtime can assist in tracking delirium recovery 09/05 -Continue Depakote 1000 mg nightly, with a repeat trough level on 09/09/2017. -Continue olanzapine 20 mg nightly, perphenazine 4 mg twice daily and 8 mg nightly, and decrease Lorazepam to 1 mg q. 1700 and 2 mg nightly (discontinuing the 1 mg dose at noon). Continue perphenazine and propranolol as needed's. 09/06 - AM sedation, but poor sleep at night. Shift trilafon to 4 mg. at 1400 and 12 mg. HS 09/07 -Continue current medications and one-to-one supervision, private room, and fall precautions. 09/08 - Continue current plan and meds. 09/09 - Continue current medications - Depakote level this morning = 68 09/10 - Irritable and impulsive on Depakote. Will taper to 500 mg. HS and start trial of Neurontin 100 mg. TID titrating as tolerated. - Will need to monitor renal functions over time 09/11 - Increase Neurontin to 200 mg. TID 09/12 -Continue current medications. Multiple medication changes made over the weekend, and we need to give this time to work. She reports an allergy to clozapine, and is unable to consent to ECT and her current condition. In addition, her boyfriend has stated that he does not think she responded well to ECT in the past, and has not been supportive of it. Additionally, she does not have the resources to continue with outpatient ECT after the initial inpatient course, so it is not a viable option at this time. -Order repeat BMP for tomorrow, to monitor kidney function. -She remains on one-to-one, although staff reports some of her behavioral issues appear volitional. Will ask the one-to-one staff to try watching her from a distance, to see if she is able to tolerate less direct oversight. (2) Chronic kidney disease (CKD) 08/11 - DC lithium. Will attempt to stabilize mood with atypicals - Collaborate with Dr. Ovalles as needed 08/20 - Restart Selinsgrove at 150mg qHS in attempt to stabilize mood and target manic behaviors. Ideally would be used in the short-term until response to Vraylar is more evident; however, patient is known to have responded well in the past. 08/21 - increase losartan to 50mg for persistently elevated BP's 08/23 -Low-dose lithium resumed 08/20/2017 due to acute worsening of psychiatric symptoms thought possibly due to discontinuation of lithium after being on it for many years. Selinsgrove trough and BMP ordered for 08/25/2017. 08/25 -Selinsgrove trough level 0.3, BUN 30, creatinine 1.77. These are up slightly from 08/10/2017, 1 BUN was 23 and creatinine 1.46. We will continue to monitor closely, ensure adequate hydration, and recheck in 4 days. If kidney function worsens, we will need to discontinue the lithium, as previously discussed with nephrology (Dr. Foreman on 07/25/2017). 08/29 - Labs reviewed: Li level = 0.4. BUN and Cr elevated at 36 and 1.88 respectively. GFR as outpatient progressively decreasing from 43.6 to 38.3. Most recent GFR = 27.5 - Will d/c Selinsgrove in favor of Depakote titration 08/31 -Will recheck BMP on 09/04/2017 to monitor kidney function. Continue to encourage fluids. 09/04 - Cr 1.48 and BUN 23, continue to encourage fluids (3) Hypothyroidism 08/11 - TSH WNL and not on levothyroxine. - May have had abnl values in the past related to being on lithium 08/26 - BP elevated. Will increase Cozaar to 75 mg. daily - VS BID 09/03/17 - will add TSH to labs for tomorrow given exopthalamos, h/o hypothyroid and not on levothyroxine 09/04 TSH WNL (4) Hyperlipemia 08/11 - Continue home dose of atorvastatin - FLP done 07/24 08/23 -Patient intermittently refusing cholestyramine; discontinue for now as also on atorvastatin and trying to limit polypharmacy. (5) Hypertension 08/31 -has been persistently hypertensive for the past several days, and intermittently hypertensive throughout her stay. No known history of hypertension, and EKG on 08/19/2017 was normal sinus rhythm. Consider need for hospitalist assistance if hypertension persists. 09/03 - normotensive this AM was hypertensive last evening but may also correlate with values taken at time of agitation, will monitor closely, Temp is not elevated and will check WBC tomorrow, do not think this is related to malignant catatonia at this time 09/04 - BP varies high in the evening and lower in the day, continue to monitor closely 09/07 - Was normotensive for 2 days, and yesterday evening had elevated blood pressure, but again normal this morning. Continue to monitor. Discharge / Aftercare Planning Primary Care Physician: Name: Santos JACKSON [employer] App[facility]ment Notes[facility] [address] [facility] [place] [address] Psychiatrist: Name: Dr. Hahn, [facility] Appointment Notes: [address] [place] [address], [place] [address] Therapist: Name: Katerina Valerio [facility] Appointment Notes: [address] [place] [address], [place] [address] Ambulance Assistant: Name: Zulay Macias Home Health Services: Home Health Services: geriatric social work professor, home health agency Home Health Agency: [facility] Home Health Specialist: Name: Dr. Demarcus Ovalles, Paster Operator [facility] [place] Phone Number: [phone] Date of Appointment: Oct 21, 2017 Time of Appointment: 1:15pm Visit Code E&M Code: 65530 Inventory Assets Strengths: Support from partner, good relationship with outpatient provider Needs: Clarity with her medications Risk Factors Assessment : Yes /single/: No Higher / Fall in social status: No Access to guns: No Health problems: Yes Mental Health Diagnoses: Yes Substance use disorders: No Previous attempt: Yes Family history of suicide: Yes Previous psychiatric stay: Yes Hopelessness: No Smoker: No Protective Factors Assessment : No Responsible for young children: No Employed: No Stable relationships: Yes Supportive family: Yes Good rapport with provider: Yes Data Vital Signs Last 24 Hrs: Date Time Temp Pulse Resp B/P (MAP) Pulse Ox O2 Delivery O2 Flow Rate FiO2 09/12/17 07:09 37.1 91 16 145/68 (93) 09/11/17 21:19 82 148/78 (101) 09/11/17 08:29 36.7 101 18 173/82 (112) 112 157/74 (101) Meds Administered Last 24 Hrs: Meds Administered (Past 24Hrs) Medications (Trade) Dose Ordered Sig/Kelsey Route Start Time Stop Time Status Last Admin Dose Admin Divalproex Sodium (Depakote Extended Rel Tab) 500 mg HS PO 09/10/17 22:00 10/10/17 21:59 09/11/17 21:29 500 MG Gabapentin (Neurontin Cap) 100 mg TID PO 09/10/17 14:00 09/11/17 10:03 DC 09/11/17 08:27 100 MG Gabapentin (Neurontin Cap) 200 mg TID PO 09/11/17 14:00 10/11/17 13:59 09/11/17 21:30 200 MG Gabapentin (Neurontin Cap) 100 mg NOW ONCE PO 09/11/17 10:30 09/11/17 10:31 DC 09/11/17 10:18 100 MG Problem Qualifiers (1) Chronic kidney disease (CKD): Chronic kidney disease stage: stage 1 Qualified Codes: N18.1 - Chronic kidney disease, stage 1
[2017-09-12] MEDS: ERGOCALCIFEROL 50,000 INTER.UNIT CAP PO SCH (08:24)
[2017-09-12] MEDS: PANTOprazole SOD 40 MG TAB PO SCH (08:24)
[2017-09-12] MEDS: LOSARTAN POTASSIUM 25 MG TAB PO SCH (08:24)
[2017-09-12] MEDS: MONTELUKAST SOD 10 MG TAB PO SCH (08:24)
[2017-09-12] MEDS: CEROVITE ADV FORMULA TAB PO SCH (08:24)
[2017-09-12] MEDS: OMEGA-3 (PURIFIED FISH OIL) 1 GM CAP PO SCH ×2 (08:25→22:46)
[2017-09-12] MEDS: GABAPENTIN 100 MG CAP PO SCH ×3 (08:25→22:46)
[2017-09-12] MEDS: TOCOPHERYL, DL-ALPHA 400 INTER.UNIT CAP PO SCH (08:25)
[2017-09-12] MEDS: PERPHENAZINE 2 MG TAB PO PRN (08:28)
[2017-09-12] MEDS: PERPHENAZINE 2 MG TAB PO SCH ×2 (13:20→22:44)
[2017-09-12] MEDS: LORAZEPAM 1 MG TAB PO SCH (16:03)
[2017-09-12] MEDS: BENZOCAINE 20% (ORAJEL) 11.9 GM TUBE MT PRN (18:06)
[2017-09-12] MEDS: TRAMADOL HCL 50 MG TAB PO PRN (18:09)
[2017-09-12] MEDS: ACETAMINOPHEN 325 MG TAB PO PRN (19:40)
[2017-09-12] MEDS: MELATONIN 3 MG PO SCH (22:00)
[2017-09-12] MEDS: OLANZAPINE 20 MG TAB PO SCH (22:45)
[2017-09-12] MEDS: ATORVASTATIN 10 MG TAB PO SCH (22:47)
[2017-09-12] MEDS: DIVALPROEX 500 MG EXTENDED RELEASE TAB PO SCH (22:48)
[2017-09-12] MEDS: LORAZEPAM 2 MG TAB PO SCH (22:50)
[2017-09-13] MEDS: TRAMADOL HCL 50 MG TAB PO PRN ×3 (02:29→21:28)
[2017-09-13] MEDS: PERPHENAZINE 2 MG TAB PO PRN (02:30)
[2017-09-13] MEDS: ACETAMINOPHEN 325 MG TAB PO PRN (05:05)
[2017-09-13 07:03] VITALS: BP 145/80; PULSE 70
[2017-09-13 07:34] LABS: CALCIUM 8.9 mg/dl (8.5-10.1); CREATININE 1.41 mg/dl (0.60-1.20); POTASSIUM 4.1 mmol/L (3.5-5.1)
[2017-09-13] MEDS: LOSARTAN POTASSIUM 25 MG TAB PO SCH (08:31)
[2017-09-13] MEDS: CEROVITE ADV FORMULA TAB PO SCH (08:31)
[2017-09-13] MEDS: PANTOprazole SOD 40 MG TAB PO SCH (08:32)
[2017-09-13] MEDS: OMEGA-3 (PURIFIED FISH OIL) 1 GM CAP PO SCH ×2 (08:32→21:17)
[2017-09-13] MEDS: GABAPENTIN 100 MG CAP PO SCH ×2 (08:32→14:03)
[2017-09-13] MEDS: MONTELUKAST SOD 10 MG TAB PO SCH (08:32)
[2017-09-13] MEDS: TOCOPHERYL, DL-ALPHA 400 INTER.UNIT CAP PO SCH (08:33)
--- NOTE | 2017-09-13 09:37 | Psychiatric Progress Notes ---
Progress Note Date of Service September 13, 2017. Interval History 67-year-old woman readmitted voluntarily for psychotic stefan 3 days after last hospitalization. She has had a complicated course, daily multiple medication trials, and with overlying delirium. Chief Complaint "Even.". Subjective Patient was seen & assessed interval progress reviewed with Treatment Team. Staff report that she had another difficult evening and slept for only 2.5 hours. Early on evening shift she was irritable and difficult to redirect, but improved as the shift went on. Today she is seated on her bed eating breakfast. She is alert and cooperative. She inquires how I am and is socially appropriate. She says that her mood is "even", but says that her energy is "high". She realizes that she slept only 2 hours last night and says "that's enough" and goes on to say that another patient on the unit, a young man , needs more sleep because he is still growing. "Everybody sleeps differently. ". She admits that she sometimes has thoughts of suicide but says that she would never act on them. When asked how she thinks the neurontin is working, she says that after taking the first dose she had auditory hallucinations, but says that she knew they weren't real, and since then thinks that it is "good". She requests again to have her toenails cut. Review of Systems Constitutional: + fatigue ENT: + hearing loss Respiratory: No cough, No sputum, No wheezing, No shortness of breath, No dyspnea on exertion, No dyspnea at rest, No hemoptysis, No problem reported Cardiovascular: No chest pain, No orthopnea, No PND, No edema, No claudication , No palpitations, No problem reported Abdomen: No pain, No nausea, No vomiting, No diarrhea, No constipation, No GI bleeding, No problem reported Musculoskeletal: No joint pain, No muscle pain, No swelling, No calf pain, No problem reported Neurologic: No memory loss, No paralysis, No weakness, No numbness/tingling, No vertigo, No balance problems, No problem reported Psychiatric: + problem reported (mood is "even" but energy "high") Integumentary: No rash, No itch, No new/changing skin lesions, No color change , No bleeding, No problem reported Sleep Information Total Hours of Sleep: 2.25 Meal Information Percent of Breakfast Consumed: 100 Percent of Lunch Consumed: 90 Percent of Dinner Consumed: 90 Mental Status Exam During interview pt is: alert and oriented, cooperative Appearance: appropriately dressed, appropriately groomed Eye contact is: good Motor behavior is: no abnormal motor movements Speech: normal in rate, rhythm & volume Affect: blunted Mood is: other ("Even") Thought process: goal directed Thought content: cognitive distortions Suicidal thought are: present, Plan: denied, Intent: denied Homicidal thoughts are: denied Hallucinations: denies auditory, denies visual Cognition: other (Impaired) Intelligence estimated to be: average Insight: severely impaired Judgement: severely impaired Medication Trials lithium - renal failure risperidone thiothixene quetiapine haloperidol Vraylar - ineffective after 12 days chlorpromazine perphenazine Depakote Artane - questionably effective for akathisia benztropine clonazepam lorazepam clozapine - listed as allergy ECT - ineffective per boyfriend sertraline zolpidem gabapentin propranolol Impression Some irritability yesterday that resolved, and poor sleep again. This AM she actually looks quite good, carrying on a coherent and reality based conversation. Sleep is a problem and Alex says he can't take her home if she isn 't sleeping. Will increase Neurontin to 200-200-600 mg and DC depakote. Plan (1) Bipolar 1 disorder with mixed features 08/11 - Increase Klonopin back to 1.5 mg HS to target sleep - Will DC lithium at this point due to concerns for her age and renal status - Will increase Risperdal to 1 mg. AM and 7 mg HS - Will DC navane to reduce polypharmacy - Continue prn haldol and increase to q 4 hr prn - Will have nursing attempt to preauth Vraylar to trial - DC Zoloft - Q 15 min checks for safety - Encourage participation in group and individual counseling as tolerated - Coordinate with current providers - had FLP and FBS on 07/23/17. All WNL with the exception of triglycerides of 151 and FBS 129 08/12 - Vraylar trial when Alex can bring it in - Start 1.5 mg daily increasing to 3 mg daily the following day. - Will taper risperdal at the same time 08/13 -Vraylar was actually started at 3mg hs on 08/12 since only 3mg capsules for supply. given s/e profile will move vraylar to earlier in day, will maintain pt at 3mg for time being given long half life of med and long half life of active metabolite tapering risperdal maintained at 1mg am and 3mg hs for now since just lowered by 4mg continue prn haldol doses 08/14 -maintained vraylar 3mg qday -maintained risperdal 1mg am and 3mg hs for now, aim to wean risperdal further as adjusting to vraylar over next days 08/15 - Continue Vraylar 3mg daily - Plan to continue to taper risperdal, however patient appears to be displaying more restlessness today in regard to manic behaviors and requiring redirection from staff and prn Haldol more frequently. - Attempt to determine proximity to baseline with visits from her fiance 08/16 - Vraylar increased to 6mg daily 08/17 - Discontinue risperidone due to inefficacy, and increase Haldol prn to 10mg. - Resume trihexphenidyl at 1mg daily and monitor restlessness as able. Challenging to know if her agitation is due to akathisia, anxiety, psychosis, or stefan, and she is a limited historian. 08/18 - DC haldol due to no response - Start Thorazine 25 mg. q 2 hr prn during the day and 100 mg. scheduled at HS 08/19 - Increase thorazine to 50 q 3 hr prn and 200 mg. HS - Try to maintain good sleep wake cycles - EKG today 08/20 - 150mg of [place] to be added this evening to stabilize mood in interim of response to Vraylar, level in 5 days to monitor for possible toxicity. - Increase Klonopin to 2.5mg qHS to better target sleep. Pt remains on 1-to- 1 observation currently, continue safety precautions for fall risk with medication changes - Encourage sleep as able, with target to keep patient in appropriate sleep- wake cycle. Daytime naps are limited in length. 08/21 - Li restarted yesterday which is not expected to demonstrate a quick benefit but in deference to long standing treatment and increased risk for ongoing mood instability off the medication. given renal impairment, she will need more frequent monitoring but the potential benefit is felt to outweigh the risk given the severity of her underlying mental health d/o. I would suggest maintaining this very low dose and checking a level on the (which I ordered today) before further titration. - sleeping more in last 24h getting high dose Thorazine which, unfortunately , may also be making her delirious. I am uncertain if she has been treated with high dose seroquel previously but that could be considered as an alternative if she struggles to tolerate the Thorazine moving forward. - will increase melatonin to 9mg qhs for additional sleep benefit with minimal risk for worsening delirium. could also consider temporarily maximizing ambien at 10mg but will defer for today 2/2 delirium as sleep is presently improving which will hopefully show antimanic effect. 08/22 - Continue on Thorazine, Vraylar, [place], and Klonopin. [place] level ordered for 08/25. - Will attempt to develop plan to decrease low-dose polypharmacy; Pt's significant other hesitant for other medication changes and is unwilling for ECT at this time - Continue delirium protocol with encouraging appropriate sleep/wake cycles 08/23 -Continue environmental and behavioral interventions for delirium, reviewed her medications and attempting to eliminate unnecessary medications ( cholestyramine discontinued as she was refusing it and not acutely important). -Try to consolidate sleep at night; continue melatonin 9 mg, clonazepam 2.5 mg, zolpidem 5 mg, and chlorpromazine 200 mg at bedtime. -Continue Vraylar 6 mg every morning (started 08/12/2017). -Continue trihexyphenidyl 1 mg every morning for akathisia. -[place] 150 mg at bedtime restarted 08/20/2017; level and BMP ordered for . 08/24 1. DC Vraylar- Has not shown any improvement since added 2. DC Thorazine- No significant improvement and contributing to anticholinergic load 3. DC Artane- Difficult to tell whether she is restless or whether restlessness is due to stefan, and concern for anticholinergic load 4. DC Ambien- Can contribute to confusion, especially in women 5. DC Vistaril- due to concerns for anticholinergic load 6. Retrial Depakote ER 500 mg. HS titrated to therapeutic level. Has been on this in the past but reports from pt and Alex provide different memories of it. 7. Trial Zyprexa- Will start low with 5 mg due to long half life of Vraylar , to target stefan 8. Continue lithium low dose, re-added due to concerns that withdrawing it after she has been on it for years has contributed to deterioration. Caution to renal status 9. Continue Klonopin 10. Continue Tramadol prn, but have encouraged nursing to use it only sparingly. 08/25 -Increase olanzapine to 7.5mg HS and prn to 5mg. -[place] trough 0.3; creatinine and BUN up slightly at 30 and 1.77. Continue to encourage adequate hydration, and will recheck lithium trough and BMP in 4 days. -Continue Depakote 500 mg nightly, and check a Depakote trough on 08/29/2017. -Consideration for ECT stefan, psychosis, and delirium do not improve. 08/26 -Increase HS zyprexa to 10 mg. continue prn's - Continue to encourage hydration - Continue depakote with level 08/29 - Will obtain CBC and UA to rule out UTI, dyscrasia - Continue to consider ECT if no improvement 08/27 --continue Zyprexa titration to 15 mg po qhs, d/c prn doses as no apparently benefit; given longstanding rx with a typical antipsychotic (Navane) and some response to Haldol prn, trial of Trilafon prn agitation. --restlessness appears to be related to catatonia in my opinion rather than akathisia. That said, will offer prn beta brad as trial for comfort, BP has been elevated anyway, would prefer to implement this rather than increasing Cozaar acutely --no clear benefit from hs clonazepam and treatment of choice for catatonia is lorazepam so taper Klonopin in favor of Ativan TID + prn. Remains on 1-on-1 for falls precautions. 08/28 --continue Zyprexa titration to 20 mg po qhs --may use propranolol TID prn --replace HS Klonopin with 2 mg Ativan as appears more effective 08/29 - Continue Zyprexa 20mg qHS, propranolol TID prn, Ativan 2mg qHS, and prn Trilafon - Recent labs reviewed: Li level = 0.4; Depakote level = 27 - BUN elevated at 36, creatinine elevated at 1.88. GFR = 27.5. - Due to progressive worsening of kidney function and apparent improvement with addition of other agents, will discontinue [place] at this time. - Increase Depakote to 750mg tonight. Depakote trough level ordered for 2017. 08/30 - Continue current meds with the exception of stopping AM ativan due to sedation, and concerns for fall risk 08/31 -Continue current medications, including Lorazepam 1 mg q. 1200 and 1700 hrs. and 2 mg at bedtime, Depakote 750 mg nightly, olanzapine 20 mg nightly, propanolol 20 mg 3 times daily as needed for restlessness, perphenazine 4 mg as needed for agitation, and melatonin 9 mg at bedtime. -Continue one-to-one monitoring. 09/01 - Continue current meds and plan including 1:1 09/02 - Add Trilafon 4 mg. TID 09/03 - increase trilafon to and pending VPA level and BMP on 09/04, will add CBC due to BRBPR yesterday due to hemrrhoids, and TSH (see below). will watch her sedation and if sedated will lower ativan 09/04/17 - patient is not showing tangible gains from this provider's review of chart and observation over last 2 days. Nursing staff felt she was less pervasively agitated on 09/03, and but she seems to continue to demonstrate pattern of delirium (waxing and waning mental state with fragmented sleep, hallucinations and waking in anxious state disoriented, labile) The inpatient team has done a heroic job of caring for this woman who has very complicated and refractory primary mental health condition and what appears to be superimposed delirium her prognosis is poor. She did best on lithium as a component of her treatment to date. Review of record is that patient's kidney function (creatinine and BUN) worsened on lithium earlier this month, but at 150mg/hs for 7days she had two of her best days inpatient on 08/29 (date of discontinuation), and 08/30 (day after discontinuation) even though her level was only 0.4 on 08/29. I will discuss with primary team as there are very serious risks of returning to lithium. - it is not clear if remeron provided an improvement for patient last night, or it was the last of a series of several sedating medications. Although it is optimal in delirium to keep up in the day and sleep at night, given she is only getting 1-4hours/night it is hard to justify waking her only for her to be agitated in the day today. Will discuss with staff and attempt to keep her up to a degree possible with light cues and stimulus in the day and lower stimulus at night - continue trilafon for now scheduled with PRN, she did require less in the last 24hours than the preceding day but it remains to be see if that is improvement - increase Depakote from 750 (level 57, free level pending) to 1000mg tonight repeat level ordered for 09/09/17 AM - she is anemic, stably so compared to 07/2017, but will draw ferritin, transferin and transferrin Saturation and TIBC to r/o iron deficiency as contributing to RLS as she is anemic, would replete with oral iron if this returns low, will discus with primary team as vitamin E may impair the response for her iron deficiency anemia - consider MVI in place of vitamin E (as not to over- dose with time) - avoid anticholinergics - she remains on benzodiazepines at this time (combination of scheduled and prns getting 5-6mg/day in the last 2 days), and although there was prior speculation of agitated catatonia in the chart it is not clear to me that the current prn doses are meaningfully helpful and can worsen delirium. Will maintain scheduled ativan 1mg 12, 1mg 1700 and 2mg/hs but stop the prn doses, and prefer trilafon prn psychosis/agitation - will not write for standing dose of remeron but if staff call again this evening after scheduled medications and patient is not sleeping would consider again giving 7.5mg remeron with caution monitoring for oversedation and future mood elevation, and watch RLS - will ask staff to get a clock drawing for goal of serial clock drawings overtime can assist in tracking delirium recovery 09/05 -Continue Depakote 1000 mg nightly, with a repeat trough level on 09/09/2017. -Continue olanzapine 20 mg nightly, perphenazine 4 mg twice daily and 8 mg nightly, and decrease Lorazepam to 1 mg q. 1700 and 2 mg nightly (discontinuing the 1 mg dose at noon). Continue perphenazine and propranolol as needed's. 09/06 - AM sedation, but poor sleep at night. Shift trilafon to 4 mg. at 1400 and 12 mg. HS 09/07 -Continue current medications and one-to-one supervision, private room, and fall precautions. 09/08 - Continue current plan and meds. 09/09 - Continue current medications - Depakote level this morning = 68 09/10 - Irritable and impulsive on Depakote. Will taper to 500 mg. HS and start trial of Neurontin 100 mg. TID titrating as tolerated. - Will need to monitor renal functions over time 09/11 - Increase Neurontin to 200 mg. TID 09/12 -Continue current medications. Multiple medication changes made over the weekend, and we need to give this time to work. She reports an allergy to clozapine, and is unable to consent to ECT and her current condition. In addition, her boyfriend has stated that he does not think she responded well to ECT in the past, and has not been supportive of it. Additionally, she does not have the resources to continue with outpatient ECT after the initial inpatient course, so it is not a viable option at this time. -Order repeat BMP for tomorrow, to monitor kidney function. -She remains on one-to-one, although staff reports some of her behavioral issues appear volitional. Will ask the one-to-one staff to try watching her from a distance, to see if she is able to tolerate less direct oversight. 09/13 -DC depakote - Increase Neurontin to 200-200-600 mg (2) Chronic kidney disease (CKD) 08/11 - DC lithium. Will attempt to stabilize mood with atypicals - Collaborate with Dr. Ovalles as needed 08/20 - Restart [place] at 150mg qHS in attempt to stabilize mood and target manic behaviors. Ideally would be used in the short-term until response to Vraylar is more evident; however, patient is known to have responded well in the past. 08/21 - increase losartan to 50mg for persistently elevated BP's 08/23 -Low-dose lithium resumed 08/20/2017 due to acute worsening of psychiatric symptoms thought possibly due to discontinuation of lithium after being on it for many years. [place] trough and BMP ordered for 08/25/2017. 08/25 -[place] trough level 0.3, BUN 30, creatinine 1.77. These are up slightly from 08/10/2017, 1 BUN was 23 and creatinine 1.46. We will continue to monitor closely, ensure adequate hydration, and recheck in 4 days. If kidney function worsens, we will need to discontinue the lithium, as previously discussed with nephrology (Dr. Foreman on 07/25/2017). 08/29 - Labs reviewed: Li level = 0.4. BUN and Cr elevated at 36 and 1.88 respectively. GFR as outpatient progressively decreasing from 43.6 to 38.3. Most recent GFR = 27.5 - Will d/c [place] in favor of Depakote titration 08/31 -Will recheck BMP on 09/04/2017 to monitor kidney function. Continue to encourage fluids. 09/04 - Cr 1.48 and BUN 23, continue to encourage fluids (3) Hypothyroidism 08/11 - TSH WNL and not on levothyroxine. - May have had abnl values in the past related to being on lithium 08/26 - BP elevated. Will increase Cozaar to 75 mg. daily - VS BID 09/03/17 - will add TSH to labs for tomorrow given exopthalamos, h/o hypothyroid and not on levothyroxine 09/04 TSH WNL (4) Hyperlipemia 08/11 - Continue home dose of atorvastatin - FLP done 07/24 08/23 -Patient intermittently refusing cholestyramine; discontinue for now as also on atorvastatin and trying to limit polypharmacy. (5) Hypertension 08/31 -has been persistently hypertensive for the past several days, and intermittently hypertensive throughout her stay. No known history of hypertension, and EKG on 08/19/2017 was normal sinus rhythm. Consider need for hospitalist assistance if hypertension persists. 09/03 - normotensive this AM was hypertensive last evening but may also correlate with values taken at time of agitation, will monitor closely, Temp is not elevated and will check WBC tomorrow, do not think this is related to malignant catatonia at this time 09/04 - BP varies high in the evening and lower in the day, continue to monitor closely 09/07 - Was normotensive for 2 days, and yesterday evening had elevated blood pressure, but again normal this morning. Continue to monitor. Discharge / Aftercare Planning Primary Care Physician: Name: Santos CRUZNP [place] Appointment Notes: [address] [place] [address] Psychiatrist: Name: Dr. Hahn [facility] Appointment Notes: [address] [place] [address] Therapist: Name: Greyson Silverio [facility] Appointment Notes: [address] [place] [address] Deputy Coroner Investigator: Name: Zulay Macias [facility]: Home Health Services: social media developer, home health agency Home Health Agency: [facility] Specialist: Name: Dr. Demarcus Ovalles, Medical Tech [facility] [place] Number: [phone] Date of Appointment: Oct 21, 2017 Time of Appointment: 1:15pm Visit Code E&M Code: 23017 Inventory Assets Strengths: Support from partner, good relationship with outpatient provider Needs: Clarity with her medications Risk Factors Assessment : Yes /single/: No Higher / Fall in social status: No Access to guns: No Health problems: Yes Mental Health Diagnoses: Yes Substance use disorders: No Previous attempt: Yes Family history of suicide: Yes Previous psychiatric stay: Yes Hopelessness: No Smoker: No Protective Factors Assessment : No Responsible for young children: No Employed: No Stable relationships: Yes Supportive family: Yes Good rapport with provider: Yes Data Vital Signs Last 24 Hrs: Date Time Temp Pulse Resp B/P (MAP) Pulse Ox O2 Delivery O2 Flow Rate FiO2 09/13/17 07:03 70 18 145/80 (101) Meds Administered Last 24 Hrs: Meds Administered (Past 24Hrs) Medications (Trade) Dose Ordered Sig/Kelsey Route Start Time Stop Time Status Last Admin Dose Admin Gabapentin (Neurontin Cap) 200 mg TID PO 09/11/17 14:00 10/11/17 13:59 09/13/17 08:32 200 MG Gabapentin (Neurontin Cap) 100 mg NOW ONCE PO 09/11/17 10:30 09/11/17 10:31 DC 09/11/17 10:18 100 MG Lab Results Last 24 Hrs: Last 24 Hours Test 09/13/17 06:58 Sodium Level 137 mmol/L Potassium Level 4.1 mmol/L Chloride Level 102 mmol/L Carbon Dioxide Level 30 mmol/L Anion Gap 5.0 mmol/L Blood Urea Nitrogen 27 mg/dl Creatinine 1.41 mg/dl Est Creatinine Clear Calc Drug Dose 32.2 ml/min Estimated GFR () 45.2 Estimated GFR (Non- 39.0 BUN/Creatinine Ratio 19.3 Random Glucose 132 mg/dl Calcium Level 8.9 mg/dl Chemistry Specimen Hemolysis Problem Qualifiers (1) Chronic kidney disease (CKD): Chronic kidney disease stage: stage 1 Qualified Codes: N18.1 - Chronic kidney disease, stage 1
[2017-09-13] MEDS: BENZOCAINE 20% (ORAJEL) 11.9 GM TUBE MT PRN (12:35)
[2017-09-13] MEDS: PERPHENAZINE 2 MG TAB PO SCH ×2 (14:03→21:18)
[2017-09-13] MEDS: LORAZEPAM 1 MG TAB PO SCH (17:10)
[2017-09-13] MEDS: LORAZEPAM 2 MG TAB PO SCH (21:15)
[2017-09-13] MEDS: GABAPENTIN 600 MG TAB PO SCH (21:17)
[2017-09-13] MEDS: MELATONIN 3 MG PO SCH (21:17)
[2017-09-13] MEDS: ATORVASTATIN 10 MG TAB PO SCH (21:17)
[2017-09-13] MEDS: OLANZAPINE 20 MG TAB PO SCH (21:18)
[2017-09-14] MEDS: LOSARTAN POTASSIUM 25 MG TAB PO SCH (08:35)
[2017-09-14] MEDS: CEROVITE ADV FORMULA TAB PO SCH (08:36)
[2017-09-14] MEDS: OMEGA-3 (PURIFIED FISH OIL) 1 GM CAP PO SCH ×2 (08:37→21:30)
[2017-09-14] MEDS: GABAPENTIN 100 MG CAP PO SCH ×2 (08:37→13:42)
[2017-09-14] MEDS: PANTOprazole SOD 40 MG TAB PO SCH (08:38)
[2017-09-14] MEDS: MONTELUKAST SOD 10 MG TAB PO SCH (08:38)
[2017-09-14] MEDS: TOCOPHERYL, DL-ALPHA 400 INTER.UNIT CAP PO SCH (08:39)
[2017-09-14 08:48] VITALS: BP 115/70; PULSE 89; TEMP 36.8; O2SAT 96
[2017-09-14 09:24] VITALS: BP 115/70; PULSE 89; TEMP 36.8; O2SAT 96
--- NOTE | 2017-09-14 13:07 | Psychiatric Progress Notes ---
Progress Note Date of Service September 14, 2017. Interval History 67-year-old woman readmitted voluntarily for psychotic stefan 3 days after last hospitalization. She has had a complicated course, daily multiple medication trials, and with overlying delirium. Chief Complaint "Good ". Subjective Patient was seen & assessed interval progress reviewed with Treatment Team. Staff reports she slept 8 hours last night, a big improvement. Staff met with her yesterday to talk about some of her behaviors, and that she would need to be in better behavioral control in order to be discharged home. Today, she states that her mood is good, denies suicidal thoughts, hallucinations, and anxiety. Her conversation is more appropriate, and she asks appropriate questions about medications and treatment. She says she is "not manic depressive, just very sensitive." Sleep Information Total Hours of Sleep: 8.00 Meal Information Percent of Breakfast Consumed: 90 Percent of Lunch Consumed: 100 Percent of Dinner Consumed: 90 Mental Status Exam During interview pt is: alert and oriented, cooperative Appearance: appropriately dressed, appropriately groomed Eye contact is: good Motor behavior is: no abnormal motor movements Speech: normal in rate, rhythm & volume Affect: mood congruent, euthymic Mood is: other ("Good.") Thought process: goal directed Thought content: reality based without delusions Suicidal thought are: denied Homicidal thoughts are: denied Hallucinations: denies auditory, denies visual Cognition: other (Impaired) Intelligence estimated to be: average Insight: severely impaired Judgement: severely impaired Medication Trials lithium - renal failure risperidone thiothixene quetiapine haloperidol Vraylar - ineffective after 12 days chlorpromazine perphenazine Depakote Artane - questionably effective for akathisia benztropine clonazepam lorazepam clozapine - listed as allergy ECT - ineffective per boyfriend sertraline zolpidem gabapentin propranolol Impression Sleep was much better last night, getting 8 hours. She appears to be improving with respect to ability to stay on track and engage in a coherent conversation. Plan (1) Bipolar 1 disorder with mixed features 09/14 -continue current meds. 08/11 - Increase Klonopin back to 1.5 mg HS to target sleep - Will DC lithium at this point due to concerns for her age and renal status - Will increase Risperdal to 1 mg. AM and 7 mg HS - Will DC navane to reduce polypharmacy - Continue prn haldol and increase to q 4 hr prn - Will have nursing attempt to preauth Vraylar to trial - DC Zoloft - Q 15 min checks for safety - Encourage participation in group and individual counseling as tolerated - Coordinate with current providers - had FLP and FBS on 07/23/17. All WNL with the exception of triglycerides of 151 and FBS 129 08/12 - Vraylar trial when Alex can bring it in - Start 1.5 mg daily increasing to 3 mg daily the following day. - Will taper risperdal at the same time 08/13 -Vraylar was actually started at 3mg hs on 08/12 since only 3mg capsules for supply. given s/e profile will move vraylar to earlier in day, will maintain pt at 3mg for time being given long half life of med and long half life of active metabolite tapering risperdal maintained at 1mg am and 3mg hs for now since just lowered by 4mg continue prn haldol doses 08/14 -maintained vraylar 3mg qday -maintained risperdal 1mg am and 3mg hs for now, aim to wean risperdal further as adjusting to vraylar over next days 08/15 - Continue Vraylar 3mg daily - Plan to continue to taper risperdal, however patient appears to be displaying more restlessness today in regard to manic behaviors and requiring redirection from staff and prn Haldol more frequently. - Attempt to determine proximity to baseline with visits from her fiance 08/16 - Vraylar increased to 6mg daily 08/17 - Discontinue risperidone due to inefficacy, and increase Haldol prn to 10mg. - Resume trihexphenidyl at 1mg daily and monitor restlessness as able. Challenging to know if her agitation is due to akathisia, anxiety, psychosis, or stefan, and she is a limited historian. 08/18 - DC haldol due to no response - Start Thorazine 25 mg. q 2 hr prn during the day and 100 mg. scheduled at HS 08/19 - Increase thorazine to 50 q 3 hr prn and 200 mg. HS - Try to maintain good sleep wake cycles - EKG today 08/20 - 150mg of Wallace to be added this evening to stabilize mood in interim of response to Vraylar, level in 5 days to monitor for possible toxicity. - Increase Klonopin to 2.5mg qHS to better target sleep. Pt remains on 1-to- 1 observation currently, continue safety precautions for fall risk with medication changes - Encourage sleep as able, with target to keep patient in appropriate sleep- wake cycle. Daytime naps are limited in length. 08/21 - Li restarted yesterday which is not expected to demonstrate a quick benefit but in deference to long standing treatment and increased risk for ongoing mood instability off the medication. given renal impairment, she will need more frequent monitoring but the potential benefit is felt to outweigh the risk given the severity of her underlying mental health d/o. I would suggest maintaining this very low dose and checking a level on the (which I ordered today) before further titration. - sleeping more in last 24h getting high dose Thorazine which, unfortunately , may also be making her delirious. I am uncertain if she has been treated with high dose seroquel previously but that could be considered as an alternative if she struggles to tolerate the Thorazine moving forward. - will increase melatonin to 9mg qhs for additional sleep benefit with minimal risk for worsening delirium. could also consider temporarily maximizing ambien at 10mg but will defer for today 2/2 delirium as sleep is presently improving which will hopefully show antimanic effect. 08/22 - Continue on Thorazine, Vraylar, Wallace, and Klonopin. Wallace level ordered for 08/25. - Will attempt to develop plan to decrease low-dose polypharmacy; Pt's significant other hesitant for other medication changes and is unwilling for ECT at this time - Continue delirium protocol with encouraging appropriate sleep/wake cycles 08/23 -Continue environmental and behavioral interventions for delirium, reviewed her medications and attempting to eliminate unnecessary medications ( cholestyramine discontinued as she was refusing it and not acutely important). -Try to consolidate sleep at night; continue melatonin 9 mg, clonazepam 2.5 mg, zolpidem 5 mg, and chlorpromazine 200 mg at bedtime. -Continue Vraylar 6 mg every morning (started 08/12/2017). -Continue trihexyphenidyl 1 mg every morning for akathisia. -Wallace 150 mg at bedtime restarted 08/20/2017; level and BMP ordered for . 08/24 1. DC Vraylar- Has not shown any improvement since added 2. DC Thorazine- No significant improvement and contributing to anticholinergic load 3. DC Artane- Difficult to tell whether she is restless or whether restlessness is due to stefan, and concern for anticholinergic load 4. DC Ambien- Can contribute to confusion, especially in women 5. DC Vistaril- due to concerns for anticholinergic load 6. Retrial Depakote ER 500 mg. HS titrated to therapeutic level. Has been on this in the past but reports from pt and Alex provide different memories of it. 7. Trial Zyprexa- Will start low with 5 mg due to long half life of Vraylar , to target stefan 8. Continue lithium low dose, re-added due to concerns that withdrawing it after she has been on it for years has contributed to deterioration. Caution to renal status 9. Continue Klonopin 10. Continue Tramadol prn, but have encouraged nursing to use it only sparingly. 08/25 -Increase olanzapine to 7.5mg HS and prn to 5mg. -Wallace trough 0.3; creatinine and BUN up slightly at 30 and 1.77. Continue to encourage adequate hydration, and will recheck lithium trough and BMP in 4 days. -Continue Depakote 500 mg nightly, and check a Depakote trough on 08/29/2017. -Consideration for ECT stefan, psychosis, and delirium do not improve. 08/26 -Increase HS zyprexa to 10 mg. continue prn's - Continue to encourage hydration - Continue depakote with level 08/29 - Will obtain CBC and UA to rule out UTI, dyscrasia - Continue to consider ECT if no improvement 08/27 --continue Zyprexa titration to 15 mg po qhs, d/c prn doses as no apparently benefit; given longstanding rx with a typical antipsychotic (Navane) and some response to Haldol prn, trial of Trilafon prn agitation. --restlessness appears to be related to catatonia in my opinion rather than akathisia. That said, will offer prn beta brad as trial for comfort, BP has been elevated anyway, would prefer to implement this rather than increasing Cozaar acutely --no clear benefit from hs clonazepam and treatment of choice for catatonia is lorazepam so taper Klonopin in favor of Ativan TID + prn. Remains on 1-on-1 for falls precautions. 08/28 --continue Zyprexa titration to 20 mg po qhs --may use propranolol TID prn --replace HS Klonopin with 2 mg Ativan as appears more effective 08/29 - Continue Zyprexa 20mg qHS, propranolol TID prn, Ativan 2mg qHS, and prn Trilafon - Recent labs reviewed: Li level = 0.4; Depakote level = 27 - BUN elevated at 36, creatinine elevated at 1.88. GFR = 27.5. - Due to progressive worsening of kidney function and apparent improvement with addition of other agents, will discontinue Wallace at this time. - Increase Depakote to 750mg tonight. Depakote trough level ordered for 2017. 08/30 - Continue current meds with the exception of stopping AM ativan due to sedation, and concerns for fall risk 08/31 -Continue current medications, including Lorazepam 1 mg q. 1200 and 1700 hrs. and 2 mg at bedtime, Depakote 750 mg nightly, olanzapine 20 mg nightly, propanolol 20 mg 3 times daily as needed for restlessness, perphenazine 4 mg as needed for agitation, and melatonin 9 mg at bedtime. -Continue one-to-one monitoring. 09/01 - Continue current meds and plan including 1:1 09/02 - Add Trilafon 4 mg. TID 09/03 - increase trilafon to and pending VPA level and BMP on 09/04, will add CBC due to BRBPR yesterday due to hemrrhoids, and TSH (see below). will watch her sedation and if sedated will lower ativan 09/04/17 - patient is not showing tangible gains from this provider's review of chart and observation over last 2 days. Nursing staff felt she was less pervasively agitated on 09/03, and but she seems to continue to demonstrate pattern of delirium (waxing and waning mental state with fragmented sleep, hallucinations and waking in anxious state disoriented, labile) The inpatient team has done a heroic job of caring for this woman who has very complicated and refractory primary mental health condition and what appears to be superimposed delirium her prognosis is poor. She did best on lithium as a component of her treatment to date. Review of record is that patient's kidney function (creatinine and BUN) worsened on lithium earlier this month, but at 150mg/hs for 7days she had two of her best days inpatient on 08/29 (date of discontinuation), and 08/30 (day after discontinuation) even though her level was only 0.4 on 08/29. I will discuss with primary team as there are very serious risks of returning to lithium. - it is not clear if remeron provided an improvement for patient last night, or it was the last of a series of several sedating medications. Although it is optimal in delirium to keep up in the day and sleep at night, given she is only getting 1-4hours/night it is hard to justify waking her only for her to be agitated in the day today. Will discuss with staff and attempt to keep her up to a degree possible with light cues and stimulus in the day and lower stimulus at night - continue trilafon for now scheduled with PRN, she did require less in the last 24hours than the preceding day but it remains to be see if that is improvement - increase Depakote from 750 (level 57, free level pending) to 1000mg tonight repeat level ordered for 09/09/17 AM - she is anemic, stably so compared to 07/2017, but will draw ferritin, transferin and transferrin Saturation and TIBC to r/o iron deficiency as contributing to RLS as she is anemic, would replete with oral iron if this returns low, will discus with primary team as vitamin E may impair the response for her iron deficiency anemia - consider MVI in place of vitamin E (as not to over- dose with time) - avoid anticholinergics - she remains on benzodiazepines at this time (combination of scheduled and prns getting 5-6mg/day in the last 2 days), and although there was prior speculation of agitated catatonia in the chart it is not clear to me that the current prn doses are meaningfully helpful and can worsen delirium. Will maintain scheduled ativan 1mg 12, 1mg 1700 and 2mg/hs but stop the prn doses, and prefer trilafon prn psychosis/agitation - will not write for standing dose of remeron but if staff call again this evening after scheduled medications and patient is not sleeping would consider again giving 7.5mg remeron with caution monitoring for oversedation and future mood elevation, and watch RLS - will ask staff to get a clock drawing for goal of serial clock drawings overtime can assist in tracking delirium recovery 09/05 -Continue Depakote 1000 mg nightly, with a repeat trough level on 09/09/2017. -Continue olanzapine 20 mg nightly, perphenazine 4 mg twice daily and 8 mg nightly, and decrease Lorazepam to 1 mg q. 1700 and 2 mg nightly (discontinuing the 1 mg dose at noon). Continue perphenazine and propranolol as needed's. 09/06 - AM sedation, but poor sleep at night. Shift trilafon to 4 mg. at 1400 and 12 mg. HS 09/07 -Continue current medications and one-to-one supervision, private room, and fall precautions. 09/08 - Continue current plan and meds. 09/09 - Continue current medications - Depakote level this morning = 68 09/10 - Irritable and impulsive on Depakote. Will taper to 500 mg. HS and start trial of Neurontin 100 mg. TID titrating as tolerated. - Will need to monitor renal functions over time 09/11 - Increase Neurontin to 200 mg. TID 09/12 -Continue current medications. Multiple medication changes made over the weekend, and we need to give this time to work. She reports an allergy to clozapine, and is unable to consent to ECT and her current condition. In addition, her boyfriend has stated that he does not think she responded well to ECT in the past, and has not been supportive of it. Additionally, she does not have the resources to continue with outpatient ECT after the initial inpatient course, so it is not a viable option at this time. -Order repeat BMP for tomorrow, to monitor kidney function. -She remains on one-to-one, although staff reports some of her behavioral issues appear volitional. Will ask the one-to-one staff to try watching her from a distance, to see if she is able to tolerate less direct oversight. 09/13 -DC depakote - Increase Neurontin to 200-200-600 mg 09/14 -continue current meds and plan. (2) Chronic kidney disease (CKD) 08/11 - DC lithium. Will attempt to stabilize mood with atypicals - Collaborate with Dr. Ovalles as needed 08/20 - Restart Wallace at 150mg qHS in attempt to stabilize mood and target manic behaviors. Ideally would be used in the short-term until response to Vraylar is more evident; however, patient is known to have responded well in the past. 08/21 - increase losartan to 50mg for persistently elevated BP's 08/23 -Low-dose lithium resumed 08/20/2017 due to acute worsening of psychiatric symptoms thought possibly due to discontinuation of lithium after being on it for many years. Wallace trough and BMP ordered for 08/25/2017. 08/25 -Wallace trough level 0.3, BUN 30, creatinine 1.77. These are up slightly from 08/10/2017, 1 BUN was 23 and creatinine 1.46. We will continue to monitor closely, ensure adequate hydration, and recheck in 4 days. If kidney function worsens, we will need to discontinue the lithium, as previously discussed with nephrology (Dr. Foreman on 07/25/2017). 08/29 - Labs reviewed: Li level = 0.4. BUN and Cr elevated at 36 and 1.88 respectively. GFR as outpatient progressively decreasing from 43.6 to 38.3. Most recent GFR = 27.5 - Will d/c Wallace in favor of Depakote titration 08/31 -Will recheck BMP on 09/04/2017 to monitor kidney function. Continue to encourage fluids. 09/04 - Cr 1.48 and BUN 23, continue to encourage fluids (3) Hypothyroidism 08/11 - TSH WNL and not on levothyroxine. - May have had abnl values in the past related to being on lithium 08/26 - BP elevated. Will increase Cozaar to 75 mg. daily - VS BID 09/03/17 - will add TSH to labs for tomorrow given exopthalamos, h/o hypothyroid and not on levothyroxine 09/04 TSH WNL (4) Hyperlipemia 08/11 - Continue home dose of atorvastatin - FLP done 07/24 08/23 -Patient intermittently refusing cholestyramine; discontinue for now as also on atorvastatin and trying to limit polypharmacy. (5) Hypertension 08/31 -has been persistently hypertensive for the past several days, and intermittently hypertensive throughout her stay. No known history of hypertension, and EKG on 08/19/2017 was normal sinus rhythm. Consider need for hospitalist assistance if hypertension persists. 55 - normotensive this AM was hypertensive last evening but may also correlate with values taken at time of agitation, will monitor closely, Temp is not elevated and will check WBC tomorrow, do not think this is related to malignant catatonia at this time 56 - BP varies high in the evening and lower in the day, continue to monitor closely 09/07 - Was normotensive for 2 days, and yesterday evening had elevated blood pressure, but again normal this morning. Continue to monitor. Discharge / Aftercare Planning Primary Care Physician: Name: Santos JACKSON [facility] Appointment Notes: [address] [place] [address] Psychiatrist: Name: Dr. Hahn, [facility] Appointment Notes: [address] [place] [id number] Therapist: Name: Katerina Valerio [facility] Appointment Notes: [address] [place] [id number] [place] Cook: Name: Zulay Macias [facility]: Home Health Services: social worker psychiatric, home health agency Home Health Agency: [facility] Specialist: Name: Dr. Demarcus Ovalles, Investigation Manager [facility] [place] Phone Number: [phone] Date of Appointment: Oct 21, 2017 Time of Appointment: 1:15pm Visit Code E&M Code: 97324 Inventory Assets Strengths: Support from partner, good relationship with outpatient provider Needs: Clarity with her medications Risk Factors Assessment : Yes /single/: No Higher / Fall in social status: No Access to guns: No Health problems: Yes Mental Health Diagnoses: Yes Substance use disorders: No Previous attempt: Yes Family history of suicide: Yes Previous psychiatric stay: Yes Hopelessness: No Smoker: No Protective Factors Assessment : No Responsible for young children: No Employed: No Stable relationships: Yes Supportive family: Yes Good rapport with provider: Yes Data Vital Signs Last 24 Hrs: Date Time Temp Pulse Resp B/P (MAP) Pulse Ox O2 Delivery O2 Flow Rate FiO2 09/14/17 09:24 36.8 89 20 115/70 (85) 96 Room Air 09/14/17 08:48 36.8 89 20 115/70 (85) 96 Meds Administered Last 24 Hrs: Meds Administered (Past 24Hrs) Medications (Trade) Dose Ordered Sig/Kelsey Route Start Time Stop Time Status Last Admin Dose Admin Gabapentin (Neurontin Cap) 200 mg BID@0900,1400 PO 09/13/17 14:00 10/13/17 13:59 09/14/17 08:37 200 MG Gabapentin (Neurontin Tab) 600 mg HS PO 09/13/17 22:00 10/13/17 21:59 09/13/17 21:17 600 MG Problem Qualifiers (1) Chronic kidney disease (CKD): Chronic kidney disease stage: stage 1 Qualified Codes: N18.1 - Chronic kidney disease, stage 1
[2017-09-14] MEDS: PERPHENAZINE 2 MG TAB PO SCH ×2 (14:20→21:30)
[2017-09-14] MEDS: LORAZEPAM 1 MG TAB PO SCH (16:31)
[2017-09-14 21:10] VITALS: BP 126/65; PULSE 92; TEMP 36.9; O2SAT 95
[2017-09-14] MEDS: LORAZEPAM 2 MG TAB PO SCH (21:28)
[2017-09-14] MEDS: ATORVASTATIN 10 MG TAB PO SCH (21:29)
[2017-09-14] MEDS: GABAPENTIN 600 MG TAB PO SCH (21:29)
[2017-09-14] MEDS: OLANZAPINE 20 MG TAB PO SCH (21:30)
[2017-09-14] MEDS: MELATONIN 3 MG PO SCH (21:37)
[2017-09-15] MEDS: LOSARTAN POTASSIUM 25 MG TAB PO SCH (08:21)
[2017-09-15] MEDS: CEROVITE ADV FORMULA TAB PO SCH (08:21)
[2017-09-15] MEDS: OMEGA-3 (PURIFIED FISH OIL) 1 GM CAP PO SCH ×2 (08:21→21:08)
[2017-09-15] MEDS: PANTOprazole SOD 40 MG TAB PO SCH (08:21)
[2017-09-15] MEDS: GABAPENTIN 100 MG CAP PO SCH ×2 (08:21→14:25)
[2017-09-15] MEDS: MONTELUKAST SOD 10 MG TAB PO SCH (08:22)
[2017-09-15] MEDS: TOCOPHERYL, DL-ALPHA 400 INTER.UNIT CAP PO SCH (08:22)
[2017-09-15] MEDS: TRAMADOL HCL 50 MG TAB PO PRN ×2 (10:47→19:01)
[2017-09-15 11:21] VITALS: BP 150/73; PULSE 96
[2017-09-15] MEDS: PERPHENAZINE 2 MG TAB PO PRN (11:24)
[2017-09-15] MEDS: PROPRANOLOL HCL 20 MG TAB PO PRN (11:24)
--- NOTE | 2017-09-15 11:28 | Psychiatric Progress Notes ---
Progress Note Date of Service September 15, 2017. Interval History 67-year-old woman readmitted voluntarily for psychotic stefan 3 days after last hospitalization. She has had a complicated course, daily multiple medication trials, and with overlying delirium. Chief Complaint "Pain all over my body ". Subjective Patient was seen & assessed interval progress reviewed with Nursing. Staff report she has overall been doing better, but continues to have outbursts at times, requiring redirection by staff for her behavior. Today, she is walking around the unit, at times yelling, and at one point came to the nurse's station and swatted at staff with her newspaper. On my assessment, she states she is in pain, but is able to be redirected, ultimately walking me around her room to show me her art work, a book of poetry, and a picture of a rabbit that she has hung up. She denies suicidal thoughts and hallucinations, and continues to state that she wants to go home. Today she says she probably could go home, as she is in too much pain. She is already requested pain medication from nursing. Sleep Information Total Hours of Sleep: 4.00 Meal Information Percent of Breakfast Consumed: 90 Percent of Lunch Consumed: 100 Percent of Dinner Consumed: 75 Mental Status Exam During interview pt is: alert and oriented, cooperative (But requires redirection at times) Appearance: appropriately dressed, appropriately groomed Eye contact is: good Motor behavior is: steady gait & station (Able to walk around her room without difficulty, although slowed), no abnormal motor movements Speech: normal in rate, rhythm & volume Affect: mood congruent, labile (Wailing in pain in one moment, and then talking happily about her art work) Mood is: other ("I am in so much pain.") Thought process: tangential Thought content: cognitive distortions Suicidal thought are: denied Homicidal thoughts are: denied Hallucinations: denies auditory, denies visual Cognition: other (Impaired) Intelligence estimated to be: average Insight: severely impaired Judgement: severely impaired Medication Trials lithium - renal failure risperidone thiothixene quetiapine haloperidol Vraylar - ineffective after 12 days chlorpromazine perphenazine Depakote Artane - questionably effective for akathisia benztropine clonazepam lorazepam clozapine - listed as allergy ECT - ineffective per boyfriend sertraline zolpidem gabapentin propranolol Impression Slow improvement, but continues to have outbursts at times, with difficulty managing her behavior, and requiring frequent redirection from staff. Plan (1) Bipolar 1 disorder with mixed features 08/11 - Increase Klonopin back to 1.5 mg HS to target sleep - Will DC lithium at this point due to concerns for her age and renal status - Will increase Risperdal to 1 mg. AM and 7 mg HS - Will DC navane to reduce polypharmacy - Continue prn haldol and increase to q 4 hr prn - Will have nursing attempt to preauth Vraylar to trial - DC Zoloft - Q 15 min checks for safety - Encourage participation in group and individual counseling as tolerated - Coordinate with current providers - had FLP and FBS on 07/23/17. All WNL with the exception of triglycerides of 151 and FBS 129 08/12 - Vraylar trial when Alex can bring it in - Start 1.5 mg daily increasing to 3 mg daily the following day. - Will taper risperdal at the same time 08/13 -Vraylar was actually started at 3mg hs on 08/12 since only 3mg capsules for supply. given s/e profile will move vraylar to earlier in day, will maintain pt at 3mg for time being given long half life of med and long half life of active metabolite tapering risperdal maintained at 1mg am and 3mg hs for now since just lowered by 4mg continue prn haldol doses 08/14 -maintained vraylar 3mg qday -maintained risperdal 1mg am and 3mg hs for now, aim to wean risperdal further as adjusting to vraylar over next days 08/15 - Continue Vraylar 3mg daily - Plan to continue to taper risperdal, however patient appears to be displaying more restlessness today in regard to manic behaviors and requiring redirection from staff and prn Haldol more frequently. - Attempt to determine proximity to baseline with visits from her fiance 08/16 - Vraylar increased to 6mg daily 08/17 - Discontinue risperidone due to inefficacy, and increase Haldol prn to 10mg. - Resume trihexphenidyl at 1mg daily and monitor restlessness as able. Challenging to know if her agitation is due to akathisia, anxiety, psychosis, or stefan, and she is a limited historian. 08/18 - DC haldol due to no response - Start Thorazine 25 mg. q 2 hr prn during the day and 100 mg. scheduled at HS 08/19 - Increase thorazine to 50 q 3 hr prn and 200 mg. HS - Try to maintain good sleep wake cycles - EKG today 08/20 - 150mg of Broomall to be added this evening to stabilize mood in interim of response to Vraylar, level in 5 days to monitor for possible toxicity. - Increase Klonopin to 2.5mg qHS to better target sleep. Pt remains on 1-to- 1 observation currently, continue safety precautions for fall risk with medication changes - Encourage sleep as able, with target to keep patient in appropriate sleep- wake cycle. Daytime naps are limited in length. 08/21 - Li restarted yesterday which is not expected to demonstrate a quick benefit but in deference to long standing treatment and increased risk for ongoing mood instability off the medication. given renal impairment, she will need more frequent monitoring but the potential benefit is felt to outweigh the risk given the severity of her underlying mental health d/o. I would suggest maintaining this very low dose and checking a level on the (which I ordered today) before further titration. - sleeping more in last 24h getting high dose Thorazine which, unfortunately , may also be making her delirious. I am uncertain if she has been treated with high dose seroquel previously but that could be considered as an alternative if she struggles to tolerate the Thorazine moving forward. - will increase melatonin to 9mg qhs for additional sleep benefit with minimal risk for worsening delirium. could also consider temporarily maximizing ambien at 10mg but will defer for today 2/2 delirium as sleep is presently improving which will hopefully show antimanic effect. 08/22 - Continue on Thorazine, Vraylar, Broomall, and Klonopin. Broomall level ordered for 08/25. - Will attempt to develop plan to decrease low-dose polypharmacy; Pt's significant other hesitant for other medication changes and is unwilling for ECT at this time - Continue delirium protocol with encouraging appropriate sleep/wake cycles 08/23 -Continue environmental and behavioral interventions for delirium, reviewed her medications and attempting to eliminate unnecessary medications ( cholestyramine discontinued as she was refusing it and not acutely important). -Try to consolidate sleep at night; continue melatonin 9 mg, clonazepam 2.5 mg, zolpidem 5 mg, and chlorpromazine 200 mg at bedtime. -Continue Vraylar 6 mg every morning (started 08/12/2017). -Continue trihexyphenidyl 1 mg every morning for akathisia. -Broomall 150 mg at bedtime restarted 08/20/2017; level and BMP ordered for . 08/24 1. DC Vraylar- Has not shown any improvement since added 2. DC Thorazine- No significant improvement and contributing to anticholinergic load 3. DC Artane- Difficult to tell whether she is restless or whether restlessness is due to stefan, and concern for anticholinergic load 4. DC Ambien- Can contribute to confusion, especially in women 5. DC Vistaril- due to concerns for anticholinergic load 6. Retrial Depakote ER 500 mg. HS titrated to therapeutic level. Has been on this in the past but reports from pt and Alex provide different memories of it. 7. Trial Zyprexa- Will start low with 5 mg due to long half life of Vraylar , to target stefan 8. Continue lithium low dose, re-added due to concerns that withdrawing it after she has been on it for years has contributed to deterioration. Caution to renal status 9. Continue Klonopin 10. Continue Tramadol prn, but have encouraged nursing to use it only sparingly. 08/25 -Increase olanzapine to 7.5mg HS and prn to 5mg. -Broomall trough 0.3; creatinine and BUN up slightly at 30 and 1.77. Continue to encourage adequate hydration, and will recheck lithium trough and BMP in 4 days. -Continue Depakote 500 mg nightly, and check a Depakote trough on 08/29/2017. -Consideration for ECT stefan, psychosis, and delirium do not improve. 08/26 -Increase HS zyprexa to 10 mg. continue prn's - Continue to encourage hydration - Continue depakote with level 08/29 - Will obtain CBC and UA to rule out UTI, dyscrasia - Continue to consider ECT if no improvement 08/27 --continue Zyprexa titration to 15 mg po qhs, d/c prn doses as no apparently benefit; given longstanding rx with a typical antipsychotic (Navane) and some response to Haldol prn, trial of Trilafon prn agitation. --restlessness appears to be related to catatonia in my opinion rather than akathisia. That said, will offer prn beta brad as trial for comfort, BP has been elevated anyway, would prefer to implement this rather than increasing Cozaar acutely --no clear benefit from hs clonazepam and treatment of choice for catatonia is lorazepam so taper Klonopin in favor of Ativan TID + prn. Remains on 1-on-1 for falls precautions. 08/28 --continue Zyprexa titration to 20 mg po qhs --may use propranolol TID prn --replace HS Klonopin with 2 mg Ativan as appears more effective 08/29 - Continue Zyprexa 20mg qHS, propranolol TID prn, Ativan 2mg qHS, and prn Trilafon - Recent labs reviewed: Li level = 0.4; Depakote level = 27 - BUN elevated at 36, creatinine elevated at 1.88. GFR = 27.5. - Due to progressive worsening of kidney function and apparent improvement with addition of other agents, will discontinue Broomall at this time. - Increase Depakote to 750mg tonight. Depakote trough level ordered for 2017. 08/30 - Continue current meds with the exception of stopping AM ativan due to sedation, and concerns for fall risk 08/31 -Continue current medications, including Lorazepam 1 mg q. 1200 and 1700 hrs. and 2 mg at bedtime, Depakote 750 mg nightly, olanzapine 20 mg nightly, propanolol 20 mg 3 times daily as needed for restlessness, perphenazine 4 mg as needed for agitation, and melatonin 9 mg at bedtime. -Continue one-to-one monitoring. 09/01 - Continue current meds and plan including 1:1 09/02 - Add Trilafon 4 mg. TID 09/03 - increase trilafon to and pending VPA level and BMP on 09/04, will add CBC due to BRBPR yesterday due to hemrrhoids, and TSH (see below). will watch her sedation and if sedated will lower ativan 09/04/17 - patient is not showing tangible gains from this provider's review of chart and observation over last 2 days. Nursing staff felt she was less pervasively agitated on 09/03, and but she seems to continue to demonstrate pattern of delirium (waxing and waning mental state with fragmented sleep, hallucinations and waking in anxious state disoriented, labile) The inpatient team has done a heroic job of caring for this woman who has very complicated and refractory primary mental health condition and what appears to be superimposed delirium her prognosis is poor. She did best on lithium as a component of her treatment to date. Review of record is that patient's kidney function (creatinine and BUN) worsened on lithium earlier this month, but at 150mg/hs for 7days she had two of her best days inpatient on 08/29 (date of discontinuation), and 08/30 (day after discontinuation) even though her level was only 0.4 on 08/29. I will discuss with primary team as there are very serious risks of returning to lithium. - it is not clear if remeron provided an improvement for patient last night, or it was the last of a series of several sedating medications. Although it is optimal in delirium to keep up in the day and sleep at night, given she is only getting 1-4hours/night it is hard to justify waking her only for her to be agitated in the day today. Will discuss with staff and attempt to keep her up to a degree possible with light cues and stimulus in the day and lower stimulus at night - continue trilafon for now scheduled with PRN, she did require less in the last 24hours than the preceding day but it remains to be see if that is improvement - increase Depakote from 750 (level 57, free level pending) to 1000mg tonight repeat level ordered for 09/09/17 AM - she is anemic, stably so compared to 07/2017, but will draw ferritin, transferin and transferrin Saturation and TIBC to r/o iron deficiency as contributing to RLS as she is anemic, would replete with oral iron if this returns low, will discus with primary team as vitamin E may impair the response for her iron deficiency anemia - consider MVI in place of vitamin E (as not to over- dose with time) - avoid anticholinergics - she remains on benzodiazepines at this time (combination of scheduled and prns getting 5-6mg/day in the last 2 days), and although there was prior speculation of agitated catatonia in the chart it is not clear to me that the current prn doses are meaningfully helpful and can worsen delirium. Will maintain scheduled ativan 1mg 12, 1mg 1700 and 2mg/hs but stop the prn doses, and prefer trilafon prn psychosis/agitation - will not write for standing dose of remeron but if staff call again this evening after scheduled medications and patient is not sleeping would consider again giving 7.5mg remeron with caution monitoring for oversedation and future mood elevation, and watch RLS - will ask staff to get a clock drawing for goal of serial clock drawings overtime can assist in tracking delirium recovery 09/05 -Continue Depakote 1000 mg nightly, with a repeat trough level on 09/09/2017. -Continue olanzapine 20 mg nightly, perphenazine 4 mg twice daily and 8 mg nightly, and decrease Lorazepam to 1 mg q. 1700 and 2 mg nightly (discontinuing the 1 mg dose at noon). Continue perphenazine and propranolol as needed's. 09/06 - AM sedation, but poor sleep at night. Shift trilafon to 4 mg. at 1400 and 12 mg. HS 09/07 -Continue current medications and one-to-one supervision, private room, and fall precautions. 09/08 - Continue current plan and meds. 09/09 - Continue current medications - Depakote level this morning = 68 09/10 - Irritable and impulsive on Depakote. Will taper to 500 mg. HS and start trial of Neurontin 100 mg. TID titrating as tolerated. - Will need to monitor renal functions over time 09/11 - Increase Neurontin to 200 mg. TID 09/12 -Continue current medications. Multiple medication changes made over the weekend, and we need to give this time to work. She reports an allergy to clozapine, and is unable to consent to ECT and her current condition. In addition, her boyfriend has stated that he does not think she responded well to ECT in the past, and has not been supportive of it. Additionally, she does not have the resources to continue with outpatient ECT after the initial inpatient course, so it is not a viable option at this time. -Order repeat BMP for tomorrow, to monitor kidney function. -She remains on one-to-one, although staff reports some of her behavioral issues appear volitional. Will ask the one-to-one staff to try watching her from a distance, to see if she is able to tolerate less direct oversight. 09/13 -DC depakote - Increase Neurontin to 200-200-600 mg 09/14 - 09/15 -continue current meds and plan. (2) Chronic kidney disease (CKD) 08/11 - DC lithium. Will attempt to stabilize mood with atypicals - Collaborate with Dr. Ovalles as needed 08/20 - Restart Broomall at 150mg qHS in attempt to stabilize mood and target manic behaviors. Ideally would be used in the short-term until response to Vraylar is more evident; however, patient is known to have responded well in the past. 08/21 - increase losartan to 50mg for persistently elevated BP's 08/23 -Low-dose lithium resumed 08/20/2017 due to acute worsening of psychiatric symptoms thought possibly due to discontinuation of lithium after being on it for many years. Broomall trough and BMP ordered for 08/25/2017. 08/25 -Broomall trough level 0.3, BUN 30, creatinine 1.77. These are up slightly from 08/10/2017, 1 BUN was 23 and creatinine 1.46. We will continue to monitor closely, ensure adequate hydration, and recheck in 4 days. If kidney function worsens, we will need to discontinue the lithium, as previously discussed with nephrology (Dr. Foreman on 07/25/2017). 08/29 - Labs reviewed: Li level = 0.4. BUN and Cr elevated at 36 and 1.88 respectively. GFR as outpatient progressively decreasing from 43.6 to 38.3. Most recent GFR = 27.5 - Will d/c Broomall in favor of Depakote titration 08/31 -Will recheck BMP on 09/04/2017 to monitor kidney function. Continue to encourage fluids. 09/04 - Cr 1.48 and BUN 23, continue to encourage fluids (3) Hypothyroidism 08/11 - TSH WNL and not on levothyroxine. - May have had abnl values in the past related to being on lithium 08/26 - BP elevated. Will increase Cozaar to 75 mg. daily - VS BID 09/03/17 - will add TSH to labs for tomorrow given exopthalamos, h/o hypothyroid and not on levothyroxine 09/04 TSH WNL (4) Hyperlipemia 08/11 - Continue home dose of atorvastatin - FLP done 07/24 08/23 -Patient intermittently refusing cholestyramine; discontinue for now as also on atorvastatin and trying to limit polypharmacy. (5) Hypertension 08/31 -has been persistently hypertensive for the past several days, and intermittently hypertensive throughout her stay. No known history of hypertension, and EKG on 08/19/2017 was normal sinus rhythm. Consider need for hospitalist assistance if hypertension persists. 09/03 - normotensive this AM was hypertensive last evening but may also correlate with values taken at time of agitation, will monitor closely, Temp is not elevated and will check WBC tomorrow, do not think this is related to malignant catatonia at this time 09/04 - BP varies high in the evening and lower in the day, continue to monitor closely 09/07 - Was normotensive for 2 days, and yesterday evening had elevated blood pressure, but again normal this morning. Continue to monitor. Discharge / Aftercare Planning Primary Care Physician: Name: Santos JACKSON [facility] Appointment Notes: [facility] [place] [address] Psychiatrist: Name: Dr. Hahn, [facility] Appointment Notes: [address] [place] [id number] Therapist: Name: Katerina Valerio [facility] Appointment Notes: [address] [place] [id number] Lead Caster Helper: Name: Zulay Macias Home Health Services: Home Health Services: social work associate, home health agency Home Health Agency: [facility] Specialist: Name: Dr. Demarcus Ovalles, [employer] [facility] Phone Number: [phone] Date of Appointment: Oct 21, 2017 Time of Appointment: 1:15pm Visit Code E&M Code: 25235 Inventory Assets Strengths: Support from partner, good relationship with outpatient provider Needs: Clarity with her medications Risk Factors Assessment : Yes /single/: No Higher / Fall in social status: No Access to guns: No Health problems: Yes Mental Health Diagnoses: Yes Substance use disorders: No Previous attempt: Yes Family history of suicide: Yes Previous psychiatric stay: Yes Hopelessness: No Smoker: No Protective Factors Assessment : No Responsible for young children: No Employed: No Stable relationships: Yes Supportive family: Yes Good rapport with provider: Yes Data Vital Signs Last 24 Hrs: Date Time Temp Pulse Resp B/P (MAP) Pulse Ox O2 Delivery O2 Flow Rate FiO2 09/15/17 11:21 96 150/73 (98) 09/14/17 21:10 36.9 92 16 126/65 (85) 95 Room Air Meds Administered Last 24 Hrs: Meds Administered (Past 24Hrs) Medications (Trade) Dose Ordered Sig/Kelsey Route Start Time Stop Time Status Last Admin Dose Admin Gabapentin (Neurontin Cap) 200 mg BID@0900,1400 PO 09/13/17 14:00 10/13/17 13:59 09/15/17 08:21 200 MG Gabapentin (Neurontin Tab) 600 mg HS PO 09/13/17 22:00 10/13/17 21:59 09/14/17 21:29 600 MG Problem Qualifiers (1) Chronic kidney disease (CKD): Chronic kidney disease stage: stage 1 Qualified Codes: N18.1 - Chronic kidney disease, stage 1
[2017-09-15] MEDS: PERPHENAZINE 2 MG TAB PO SCH ×2 (14:25→21:07)
[2017-09-15] MEDS: LORAZEPAM 1 MG TAB PO SCH (16:29)
[2017-09-15] MEDS: OLANZAPINE 20 MG TAB PO SCH (21:07)
[2017-09-15] MEDS: ATORVASTATIN 10 MG TAB PO SCH (21:08)
[2017-09-15] MEDS: MELATONIN 3 MG PO SCH (21:08)
[2017-09-15] MEDS: GABAPENTIN 600 MG TAB PO SCH (21:08)
[2017-09-15] MEDS: LORAZEPAM 2 MG TAB PO SCH (21:09)
[2017-09-15 22:32] VITALS: BP_SYST 104; BP_SYST 116; BP_DIAS 54; BP_DIAS 68; PULSE 79; PULSE 92; TEMP 36.7
[2017-09-16] MEDS: BENZOCAINE 20% (ORAJEL) 11.9 GM TUBE MT PRN (03:46)
[2017-09-16] MEDS: TRAMADOL HCL 50 MG TAB PO PRN ×2 (03:49→20:06)
[2017-09-16 06:24] VITALS: BP_SYST 125; BP_SYST 128; BP_DIAS 81; BP_DIAS 85; PULSE 80; PULSE 82; TEMP 36.6; O2SAT 94
[2017-09-16] MEDS: ACETAMINOPHEN 325 MG TAB PO PRN (06:32)
[2017-09-16] MEDS: PANTOprazole SOD 40 MG TAB PO SCH (08:01)
[2017-09-16] MEDS: MONTELUKAST SOD 10 MG TAB PO SCH (08:01)
[2017-09-16] MEDS: CEROVITE ADV FORMULA TAB PO SCH (08:01)
[2017-09-16] MEDS: OMEGA-3 (PURIFIED FISH OIL) 1 GM CAP PO SCH ×2 (08:01→21:01)
[2017-09-16] MEDS: GABAPENTIN 100 MG CAP PO SCH (08:01)
[2017-09-16] MEDS: LOSARTAN POTASSIUM 25 MG TAB PO SCH (08:01)
[2017-09-16] MEDS: TOCOPHERYL, DL-ALPHA 400 INTER.UNIT CAP PO SCH (08:02)
--- NOTE | 2017-09-16 13:42 | Psychiatric Progress Notes ---
Progress Note Date of Service September 16, 2017. Interval History 67-year-old woman readmitted voluntarily for psychotic stefan 3 days after last hospitalization. She has had a complicated course, daily multiple medication trials, and with overlying delirium. Chief Complaint "oh I'm fine, I'm wonderful". Subjective Patient was seen & assessed interval progress reviewed with Treatment Team. Staff reports the patient has been a bit more agitated, but continues to wax and wane between the different shifts. Pt was seen today during a visit from her fianceAlex. Pt states she is doing "fine". Discussed with both the patient and her fiance the plan to continue Neurontin titration. Pt reports, "no depakote, depakote bad." Pt is in favor of the Neurontin; however, fiance warns about dizziness in the past with trial of Neurontin. Discussed her 1-to- 1 order and that we would be able to determine if instability was occurring from titration. During encounter patient states, "I just get so angry sometimes , I don't have a reason, but I just snap." Pt was also observed to be having a brief conversation with herself, acting out both roles. Pt unable to discuss what led to this or if she was having any auditory hallucinations at the time. Review of Systems Psych: denies symptoms other than stated above Constitutional: denied Cardiovascular: denied GI: denied Neurologic: denied Remainder of 10 body systems also reviewed and denied other than noted above. Sleep Information Total Hours of Sleep: 2.75 Meal Information Percent of Breakfast Consumed: 100 Percent of Lunch Consumed: 100 Percent of Dinner Consumed: 0 Mental Status Exam During interview pt is: alert and oriented, cooperative (less redirectable today) Appearance: appropriately dressed, appropriately groomed Eye contact is: good Motor behavior is: steady gait & station (observed to be walking her room and the unit without difficulty), no abnormal motor movements Speech: normal in rate, rhythm & volume Affect: mood congruent, labile (primarily euthymic and cooperative, one episode of anger which involved slamming silverware on plate) Mood is: other ("I'm fine, I'm wonderful") Thought process: tangential Thought content: cognitive distortions Suicidal thought are: denied Homicidal thoughts are: denied Hallucinations: denies auditory, denies visual Cognition: other (Impaired) Intelligence estimated to be: average Insight: severely impaired Judgement: severely impaired Medication Trials lithium - renal failure risperidone thiothixene quetiapine haloperidol Vraylar - ineffective after 12 days chlorpromazine perphenazine Depakote Artane - questionably effective for akathisia benztropine clonazepam lorazepam clozapine - listed as allergy ECT - ineffective per boyfriend sertraline zolpidem gabapentin propranolol Impression Pt continues to require redirection from staff. Overall appears to be improving , but does have agitated outbursts from time to time. Will continue to titrate Neurontin, watching for any dizziness or gait instability. Pt continues to require inpatient mental health treatment until her condition can be stabilized and she is no longer at risk of harm to self or others. Plan (1) Bipolar 1 disorder with mixed features 08/11 - Increase Klonopin back to 1.5 mg HS to target sleep - Will DC lithium at this point due to concerns for her age and renal status - Will increase Risperdal to 1 mg. AM and 7 mg HS - Will DC navane to reduce polypharmacy - Continue prn haldol and increase to q 4 hr prn - Will have nursing attempt to preauth Vraylar to trial - DC Zoloft - Q 15 min checks for safety - Encourage participation in group and individual counseling as tolerated - Coordinate with current providers - had FLP and FBS on 07/23/17. All WNL with the exception of triglycerides of 151 and FBS 129 08/12 - Vraylar trial when Alex can bring it in - Start 1.5 mg daily increasing to 3 mg daily the following day. - Will taper risperdal at the same time 08/13 -Vraylar was actually started at 3mg hs on 08/12 since only 3mg capsules for supply. given s/e profile will move vraylar to earlier in day, will maintain pt at 3mg for time being given long half life of med and long half life of active metabolite tapering risperdal maintained at 1mg am and 3mg hs for now since just lowered by 4mg continue prn haldol doses 08/14 -maintained vraylar 3mg qday -maintained risperdal 1mg am and 3mg hs for now, aim to wean risperdal further as adjusting to vraylar over next days 08/15 - Continue Vraylar 3mg daily - Plan to continue to taper risperdal, however patient appears to be displaying more restlessness today in regard to manic behaviors and requiring redirection from staff and prn Haldol more frequently. - Attempt to determine proximity to baseline with visits from her fiance 08/16 - Vraylar increased to 6mg daily 08/17 - Discontinue risperidone due to inefficacy, and increase Haldol prn to 10mg. - Resume trihexphenidyl at 1mg daily and monitor restlessness as able. Challenging to know if her agitation is due to akathisia, anxiety, psychosis, or stefan, and she is a limited historian. 08/18 - DC haldol due to no response - Start Thorazine 25 mg. q 2 hr prn during the day and 100 mg. scheduled at HS 08/19 - Increase thorazine to 50 q 3 hr prn and 200 mg. HS - Try to maintain good sleep wake cycles - EKG today 08/20 - 150mg of Bulpitt to be added this evening to stabilize mood in interim of response to Vraylar, level in 5 days to monitor for possible toxicity. - Increase Klonopin to 2.5mg qHS to better target sleep. Pt remains on 1-to- 1 observation currently, continue safety precautions for fall risk with medication changes - Encourage sleep as able, with target to keep patient in appropriate sleep- wake cycle. Daytime naps are limited in length. 08/21 - Li restarted yesterday which is not expected to demonstrate a quick benefit but in deference to long standing treatment and increased risk for ongoing mood instability off the medication. given renal impairment, she will need more frequent monitoring but the potential benefit is felt to outweigh the risk given the severity of her underlying mental health d/o. I would suggest maintaining this very low dose and checking a level on the (which I ordered today) before further titration. - sleeping more in last 24h getting high dose Thorazine which, unfortunately , may also be making her delirious. I am uncertain if she has been treated with high dose seroquel previously but that could be considered as an alternative if she struggles to tolerate the Thorazine moving forward. - will increase melatonin to 9mg qhs for additional sleep benefit with minimal risk for worsening delirium. could also consider temporarily maximizing ambien at 10mg but will defer for today 2/2 delirium as sleep is presently improving which will hopefully show antimanic effect. 08/22 - Continue on Thorazine, Vraylar, Bulpitt, and Klonopin. Bulpitt level ordered for 08/25. - Will attempt to develop plan to decrease low-dose polypharmacy; Pt's significant other hesitant for other medication changes and is unwilling for ECT at this time - Continue delirium protocol with encouraging appropriate sleep/wake cycles 08/23 -Continue environmental and behavioral interventions for delirium, reviewed her medications and attempting to eliminate unnecessary medications ( cholestyramine discontinued as she was refusing it and not acutely important). -Try to consolidate sleep at night; continue melatonin 9 mg, clonazepam 2.5 mg, zolpidem 5 mg, and chlorpromazine 200 mg at bedtime. -Continue Vraylar 6 mg every morning (started 08/12/2017). -Continue trihexyphenidyl 1 mg every morning for akathisia. -Bulpitt 150 mg at bedtime restarted 08/20/2017; level and BMP ordered for . 08/24 1. DC Vraylar- Has not shown any improvement since added 2. DC Thorazine- No significant improvement and contributing to anticholinergic load 3. DC Artane- Difficult to tell whether she is restless or whether restlessness is due to stefan, and concern for anticholinergic load 4. DC Ambien- Can contribute to confusion, especially in women 5. DC Vistaril- due to concerns for anticholinergic load 6. Retrial Depakote ER 500 mg. HS titrated to therapeutic level. Has been on this in the past but reports from pt and Alex provide different memories of it. 7. Trial Zyprexa- Will start low with 5 mg due to long half life of Vraylar , to target stefan 8. Continue lithium low dose, re-added due to concerns that withdrawing it after she has been on it for years has contributed to deterioration. Caution to renal status 9. Continue Klonopin 10. Continue Tramadol prn, but have encouraged nursing to use it only sparingly. 08/25 -Increase olanzapine to 7.5mg HS and prn to 5mg. -Bulpitt trough 0.3; creatinine and BUN up slightly at 30 and 1.77. Continue to encourage adequate hydration, and will recheck lithium trough and BMP in 4 days. -Continue Depakote 500 mg nightly, and check a Depakote trough on 08/29/2017. -Consideration for ECT stefan, psychosis, and delirium do not improve. 08/26 -Increase HS zyprexa to 10 mg. continue prn's - Continue to encourage hydration - Continue depakote with level 08/29 - Will obtain CBC and UA to rule out UTI, dyscrasia - Continue to consider ECT if no improvement 08/27 --continue Zyprexa titration to 15 mg po qhs, d/c prn doses as no apparently benefit; given longstanding rx with a typical antipsychotic (Navane) and some response to Haldol prn, trial of Trilafon prn agitation. --restlessness appears to be related to catatonia in my opinion rather than akathisia. That said, will offer prn beta brad as trial for comfort, BP has been elevated anyway, would prefer to implement this rather than increasing Cozaar acutely --no clear benefit from hs clonazepam and treatment of choice for catatonia is lorazepam so taper Klonopin in favor of Ativan TID + prn. Remains on 1-on-1 for falls precautions. 08/28 --continue Zyprexa titration to 20 mg po qhs --may use propranolol TID prn --replace HS Klonopin with 2 mg Ativan as appears more effective 08/29 - Continue Zyprexa 20mg qHS, propranolol TID prn, Ativan 2mg qHS, and prn Trilafon - Recent labs reviewed: Li level = 0.4; Depakote level = 27 - BUN elevated at 36, creatinine elevated at 1.88. GFR = 27.5. - Due to progressive worsening of kidney function and apparent improvement with addition of other agents, will discontinue Bulpitt at this time. - Increase Depakote to 750mg tonight. Depakote trough level ordered for 2017. 08/30 - Continue current meds with the exception of stopping AM ativan due to sedation, and concerns for fall risk 08/31 -Continue current medications, including Lorazepam 1 mg q. 1200 and 1700 hrs. and 2 mg at bedtime, Depakote 750 mg nightly, olanzapine 20 mg nightly, propanolol 20 mg 3 times daily as needed for restlessness, perphenazine 4 mg as needed for agitation, and melatonin 9 mg at bedtime. -Continue one-to-one monitoring. 09/01 - Continue current meds and plan including 1:1 09/02 - Add Trilafon 4 mg. TID 09/03 - increase trilafon to and pending VPA level and BMP on 09/04, will add CBC due to BRBPR yesterday due to hemrrhoids, and TSH (see below). will watch her sedation and if sedated will lower ativan 09/04/17 - patient is not showing tangible gains from this provider's review of chart and observation over last 2 days. Nursing staff felt she was less pervasively agitated on 09/03, and but she seems to continue to demonstrate pattern of delirium (waxing and waning mental state with fragmented sleep, hallucinations and waking in anxious state disoriented, labile) The inpatient team has done a heroic job of caring for this woman who has very complicated and refractory primary mental health condition and what appears to be superimposed delirium her prognosis is poor. She did best on lithium as a component of her treatment to date. Review of record is that patient's kidney function (creatinine and BUN) worsened on lithium earlier this month, but at 150mg/hs for 7days she had two of her best days inpatient on 08/29 (date of discontinuation), and 08/30 (day after discontinuation) even though her level was only 0.4 on 08/29. I will discuss with primary team as there are very serious risks of returning to lithium. - it is not clear if remeron provided an improvement for patient last night, or it was the last of a series of several sedating medications. Although it is optimal in delirium to keep up in the day and sleep at night, given she is only getting 1-4hours/night it is hard to justify waking her only for her to be agitated in the day today. Will discuss with staff and attempt to keep her up to a degree possible with light cues and stimulus in the day and lower stimulus at night - continue trilafon for now scheduled with PRN, she did require less in the last 24hours than the preceding day but it remains to be see if that is improvement - increase Depakote from 750 (level 57, free level pending) to 1000mg tonight repeat level ordered for 09/09/17 AM - she is anemic, stably so compared to 07/2017, but will draw ferritin, transferin and transferrin Saturation and TIBC to r/o iron deficiency as contributing to RLS as she is anemic, would replete with oral iron if this returns low, will discus with primary team as vitamin E may impair the response for her iron deficiency anemia - consider MVI in place of vitamin E (as not to over- dose with time) - avoid anticholinergics - she remains on benzodiazepines at this time (combination of scheduled and prns getting 5-6mg/day in the last 2 days), and although there was prior speculation of agitated catatonia in the chart it is not clear to me that the current prn doses are meaningfully helpful and can worsen delirium. Will maintain scheduled ativan 1mg 12, 1mg 1700 and 2mg/hs but stop the prn doses, and prefer trilafon prn psychosis/agitation - will not write for standing dose of remeron but if staff call again this evening after scheduled medications and patient is not sleeping would consider again giving 7.5mg remeron with caution monitoring for oversedation and future mood elevation, and watch RLS - will ask staff to get a clock drawing for goal of serial clock drawings overtime can assist in tracking delirium recovery 09/05 -Continue Depakote 1000 mg nightly, with a repeat trough level on 09/09/2017. -Continue olanzapine 20 mg nightly, perphenazine 4 mg twice daily and 8 mg nightly, and decrease Lorazepam to 1 mg q. 1700 and 2 mg nightly (discontinuing the 1 mg dose at noon). Continue perphenazine and propranolol as needed's. 09/06 - AM sedation, but poor sleep at night. Shift trilafon to 4 mg. at 1400 and 12 mg. HS 09/07 -Continue current medications and one-to-one supervision, private room, and fall precautions. 09/08 - Continue current plan and meds. 09/09 - Continue current medications - Depakote level this morning = 68 09/10 - Irritable and impulsive on Depakote. Will taper to 500 mg. HS and start trial of Neurontin 100 mg. TID titrating as tolerated. - Will need to monitor renal functions over time 09/11 - Increase Neurontin to 200 mg. TID 09/12 -Continue current medications. Multiple medication changes made over the weekend, and we need to give this time to work. She reports an allergy to clozapine, and is unable to consent to ECT and her current condition. In addition, her boyfriend has stated that he does not think she responded well to ECT in the past, and has not been supportive of it. Additionally, she does not have the resources to continue with outpatient ECT after the initial inpatient course, so it is not a viable option at this time. -Order repeat BMP for tomorrow, to monitor kidney function. -She remains on one-to-one, although staff reports some of her behavioral issues appear volitional. Will ask the one-to-one staff to try watching her from a distance, to see if she is able to tolerate less direct oversight. 09/13 -DC depakote - Increase Neurontin to 200-200-600 mg 09/14 - 09/15 -continue current meds and plan. 09/16 - Neurontin increased to [id number] - Continue other medications as directed. (2) Chronic kidney disease (CKD) 08/11 - DC lithium. Will attempt to stabilize mood with atypicals - Collaborate with Dr. Ovalles as needed 08/20 - Restart Bulpitt at 150mg qHS in attempt to stabilize mood and target manic behaviors. Ideally would be used in the short-term until response to Vraylar is more evident; however, patient is known to have responded well in the past. 08/21 - increase losartan to 50mg for persistently elevated BP's 08/23 -Low-dose lithium resumed 08/20/2017 due to acute worsening of psychiatric symptoms thought possibly due to discontinuation of lithium after being on it for many years. Bulpitt trough and BMP ordered for 08/25/2017. 08/25 -Bulpitt trough level 0.3, BUN 30, creatinine 1.77. These are up slightly from 08/10/2017, 1 BUN was 23 and creatinine 1.46. We will continue to monitor closely, ensure adequate hydration, and recheck in 4 days. If kidney function worsens, we will need to discontinue the lithium, as previously discussed with nephrology (Dr. Foreman on 07/25/2017). 08/29 - Labs reviewed: Li level = 0.4. BUN and Cr elevated at 36 and 1.88 respectively. GFR as outpatient progressively decreasing from 43.6 to 38.3. Most recent GFR = 27.5 - Will d/c Bulpitt in favor of Depakote titration 08/31 -Will recheck BMP on 09/04/2017 to monitor kidney function. Continue to encourage fluids. 09/04 - Cr 1.48 and BUN 23, continue to encourage fluids (3) Hypothyroidism 08/11 - TSH WNL and not on levothyroxine. - May have had abnl values in the past related to being on lithium 08/26 - BP elevated. Will increase Cozaar to 75 mg. daily - VS BID 09/03/17 - will add TSH to labs for tomorrow given exopthalamos, h/o hypothyroid and not on levothyroxine 09/04 TSH WNL (4) Hyperlipemia 08/11 - Continue home dose of atorvastatin - FLP done 07/24 08/23 -Patient intermittently refusing cholestyramine; discontinue for now as also on atorvastatin and trying to limit polypharmacy. (5) Hypertension 08/31 -has been persistently hypertensive for the past several days, and intermittently hypertensive throughout her stay. No known history of hypertension, and EKG on 08/19/2017 was normal sinus rhythm. Consider need for hospitalist assistance if hypertension persists. 09/03 - normotensive this AM was hypertensive last evening but may also correlate with values taken at time of agitation, will monitor closely, Temp is not elevated and will check WBC tomorrow, do not think this is related to malignant catatonia at this time 09/04 - BP varies high in the evening and lower in the day, continue to monitor closely 09/07 - Was normotensive for 2 days, and yesterday evening had elevated blood pressure, but again normal this morning. Continue to monitor. Discharge / Aftercare Planning Primary Care Physician: Name: Santos JACKSON [facility] Appointment Notes: [address] [place] [address] Psychiatrist: Name: Dr. Hahn, [facility] Clinic Appointment Notes: [address] [place] [address] Therapist: Name: Katerina Valerio [facility] Appointment Notes: [address] [place] [id number] Consumer Analyst: Name: Zulay Macias [facility]: Home Health Services: social work case manager, home health agency Home Health Agency: [facility] Specialist: Name: Dr. Demarcus Ovalles, Head [employer] [facility] [place] Phone Number: [phone] Date of Appointment: Oct 21, 2017 Time of Appointment: 1:15pm Visit Code E&M Code: 92153 Inventory Assets Strengths: Support from partner, good relationship with outpatient provider Needs: Clarity with her medications Risk Factors Assessment : Yes /single/: No Higher / Fall in social status: No Access to guns: No Health problems: Yes Mental Health Diagnoses: Yes Substance use disorders: No Previous attempt: Yes Family history of suicide: Yes Previous psychiatric stay: Yes Hopelessness: No Smoker: No Protective Factors Assessment : No Responsible for young children: No Employed: No Stable relationships: Yes Supportive family: Yes Good rapport with provider: Yes Data Vital Signs Last 24 Hrs: Date Time Temp Pulse Resp B/P (MAP) Pulse Ox O2 Delivery O2 Flow Rate FiO2 09/16/17 06:24 36.6 80 20 128/85 (99) 94 Room Air 82 125/81 (96) 09/15/17 22:32 36.7 79 16 116/68 (84) 92 104/54 (71) Problem Qualifiers (1) Chronic kidney disease (CKD): Chronic kidney disease stage: stage 1 Qualified Codes: N18.1 - Chronic kidney disease, stage 1
[2017-09-16] MEDS: PERPHENAZINE 2 MG TAB PO SCH ×2 (13:45→21:01)
[2017-09-16] MEDS: GABAPENTIN 400 MG CAP PO SCH (14:35)
[2017-09-16] MEDS: LORAZEPAM 1 MG TAB PO SCH (17:46)
[2017-09-16] MEDS: PROPRANOLOL HCL 20 MG TAB PO PRN (20:04)
[2017-09-16] MEDS: OLANZAPINE 20 MG TAB PO SCH (21:00)
[2017-09-16] MEDS: GABAPENTIN 800 MG TAB PO SCH (21:02)
[2017-09-16] MEDS: ATORVASTATIN 10 MG TAB PO SCH (21:03)
[2017-09-16] MEDS: MELATONIN 3 MG PO SCH (21:03)
[2017-09-16] MEDS: LORAZEPAM 2 MG TAB PO SCH (21:03)
[2017-09-16 21:17] VITALS: BP_SYST 128; BP_SYST 135; BP_DIAS 59; BP_DIAS 78; PULSE 81; PULSE 99; TEMP 37.1
--- NOTE | 2017-09-17 07:31 | Psychiatric Progress Notes ---
Progress Note Date of Service September 17, 2017. Interval History 67-year-old woman readmitted voluntarily for psychotic stefan 3 days after last hospitalization. She has had a complicated course, daily multiple medication trials, and with overlying delirium. Chief Complaint Patient talking incoherently. Subjective Patient was seen & assessed interval progress reviewed with Nursing. Staff report she was restless and agitated last evening, spit out meds (but took them later), and was more agitated when her significant other visited. She slept 9 hours overnight, but has been restless since awakening, agitated, not responding well to redirection. She continues to require 1:1 supervision, as wanders into other's rooms, has poor boundaries, is tangential and disorganized. She told staff she wouldn't sleep because she has nightmares, and knows she'll if she has them. She also said she doesn't like to be alone. This morning, she has been more disorganized, talking nonsensically and incoherently, requiring significant redirection by staff. On my assessment, she was seen in her room, where she was seated on her bed coloring. She talks nonstop, but is mumbling and most of her speech is incoherent. At one point she was talking about "treason clouds," gesturing to the air in front of her face. At one point when I stood up to leave, she said "I am not dumb with you yet," then put on dark sunglasses and attempted to stand up and walk around, but was unsteady on her feet. She willingly went back to her room with staff to eat a snack. Review of Systems Attempted review of systems, but patient unable to answer with related information. Sleep Information Total Hours of Sleep: 8.00 Meal Information Percent of Breakfast Consumed: 100 Percent of Lunch Consumed: 100 Percent of Dinner Consumed: 75 Mental Status Exam During interview pt is: alert and oriented, cooperative (But unable to provide answers to questions, disorganized) Appearance: appropriately dressed, appropriately groomed Eye contact is: good Motor behavior is: other (Unsteady on her feet) Speech: other (Excessive speech, mumbling incoherently much of the time.) Affect: other (Primarily euthymic, but episodically irritable.) Mood is: other (Answers incoherently.) Thought process: other (Difficult to assess due to incoherent speech.) Hallucinations: other (Appears to be responding to internal stimuli, gesturing to the air in front of her and talking about treason clouds.) Cognition: other (All spheres impaired.) Insight: severely impaired Judgement: severely impaired Medication Trials lithium - renal failure risperidone thiothixene quetiapine haloperidol Vraylar - ineffective after 12 days chlorpromazine perphenazine Depakote Artane - questionably effective for akathisia benztropine clonazepam lorazepam clozapine - listed as allergy ECT - ineffective per boyfriend sertraline zolpidem gabapentin propranolol Impression Pt continues to require frequent redirection from staff. Overall appears to be improving, but does have agitated outbursts from time to time. Will continue current dose of gabapentin, as she has gait instability today. She continues to require inpatient mental health treatment until her condition can be stabilized and she is no longer at risk of harm to self or others. Plan (1) Bipolar 1 disorder with mixed features 08/11 - Increase Klonopin back to 1.5 mg HS to target sleep - Will DC lithium at this point due to concerns for her age and renal status - Will increase Risperdal to 1 mg. AM and 7 mg HS - Will DC navane to reduce polypharmacy - Continue prn haldol and increase to q 4 hr prn - Will have nursing attempt to preauth Vraylar to trial - DC Zoloft - Q 15 min checks for safety - Encourage participation in group and individual counseling as tolerated - Coordinate with current providers - had FLP and FBS on 07/23/17. All WNL with the exception of triglycerides of 151 and FBS 129 08/12 - Vraylar trial when Alex can bring it in - Start 1.5 mg daily increasing to 3 mg daily the following day. - Will taper risperdal at the same time 08/13 -Vraylar was actually started at 3mg hs on 08/12 since only 3mg capsules for supply. given s/e profile will move vraylar to earlier in day, will maintain pt at 3mg for time being given long half life of med and long half life of active metabolite tapering risperdal maintained at 1mg am and 3mg hs for now since just lowered by 4mg continue prn haldol doses 08/14 -maintained vraylar 3mg qday -maintained risperdal 1mg am and 3mg hs for now, aim to wean risperdal further as adjusting to vraylar over next days 08/15 - Continue Vraylar 3mg daily - Plan to continue to taper risperdal, however patient appears to be displaying more restlessness today in regard to manic behaviors and requiring redirection from staff and prn Haldol more frequently. - Attempt to determine proximity to baseline with visits from her fiance 08/16 - Vraylar increased to 6mg daily 08/17 - Discontinue risperidone due to inefficacy, and increase Haldol prn to 10mg. - Resume trihexphenidyl at 1mg daily and monitor restlessness as able. Challenging to know if her agitation is due to akathisia, anxiety, psychosis, or stefan, and she is a limited historian. 08/18 - DC haldol due to no response - Start Thorazine 25 mg. q 2 hr prn during the day and 100 mg. scheduled at HS 08/19 - Increase thorazine to 50 q 3 hr prn and 200 mg. HS - Try to maintain good sleep wake cycles - EKG today 08/20 - 150mg of [place] to be added this evening to stabilize mood in interim of response to Vraylar, level in 5 days to monitor for possible toxicity. - Increase Klonopin to 2.5mg qHS to better target sleep. Pt remains on 1-to- 1 observation currently, continue safety precautions for fall risk with medication changes - Encourage sleep as able, with target to keep patient in appropriate sleep- wake cycle. Daytime naps are limited in length. 08/21 - Li restarted yesterday which is not expected to demonstrate a quick benefit but in deference to long standing treatment and increased risk for ongoing mood instability off the medication. given renal impairment, she will need more frequent monitoring but the potential benefit is felt to outweigh the risk given the severity of her underlying mental health d/o. I would suggest maintaining this very low dose and checking a level on the (which I ordered today) before further titration. - sleeping more in last 24h getting high dose Thorazine which, unfortunately , may also be making her delirious. I am uncertain if she has been treated with high dose seroquel previously but that could be considered as an alternative if she struggles to tolerate the Thorazine moving forward. - will increase melatonin to 9mg qhs for additional sleep benefit with minimal risk for worsening delirium. could also consider temporarily maximizing ambien at 10mg but will defer for today 2/2 delirium as sleep is presently improving which will hopefully show antimanic effect. 08/22 - Continue on Thorazine, Vraylar, [place], and Klonopin. [place] level ordered for 08/25. - Will attempt to develop plan to decrease low-dose polypharmacy; Pt's significant other hesitant for other medication changes and is unwilling for ECT at this time - Continue delirium protocol with encouraging appropriate sleep/wake cycles 08/23 -Continue environmental and behavioral interventions for delirium, reviewed her medications and attempting to eliminate unnecessary medications ( cholestyramine discontinued as she was refusing it and not acutely important). -Try to consolidate sleep at night; continue melatonin 9 mg, clonazepam 2.5 mg, zolpidem 5 mg, and chlorpromazine 200 mg at bedtime. -Continue Vraylar 6 mg every morning (started 08/12/2017). -Continue trihexyphenidyl 1 mg every morning for akathisia. -[place] 150 mg at bedtime restarted 08/20/2017; level and BMP ordered for . 08/24 1. DC Vraylar- Has not shown any improvement since added 2. DC Thorazine- No significant improvement and contributing to anticholinergic load 3. DC Artane- Difficult to tell whether she is restless or whether restlessness is due to stefan, and concern for anticholinergic load 4. DC Ambien- Can contribute to confusion, especially in women 5. DC Vistaril- due to concerns for anticholinergic load 6. Retrial Depakote ER 500 mg. HS titrated to therapeutic level. Has been on this in the past but reports from pt and Alex provide different memories of it. 7. Trial Zyprexa- Will start low with 5 mg due to long half life of Vraylar , to target stefan 8. Continue lithium low dose, re-added due to concerns that withdrawing it after she has been on it for years has contributed to deterioration. Caution to renal status 9. Continue Klonopin 10. Continue Tramadol prn, but have encouraged nursing to use it only sparingly. 08/25 -Increase olanzapine to 7.5mg HS and prn to 5mg. -[place] trough 0.3; creatinine and BUN up slightly at 30 and 1.77. Continue to encourage adequate hydration, and will recheck lithium trough and BMP in 4 days. -Continue Depakote 500 mg nightly, and check a Depakote trough on 08/29/2017. -Consideration for ECT stefan, psychosis, and delirium do not improve. 08/26 -Increase HS zyprexa to 10 mg. continue prn's - Continue to encourage hydration - Continue depakote with level 08/29 - Will obtain CBC and UA to rule out UTI, dyscrasia - Continue to consider ECT if no improvement 08/27 --continue Zyprexa titration to 15 mg po qhs, d/c prn doses as no apparently benefit; given longstanding rx with a typical antipsychotic (Navane) and some response to Haldol prn, trial of Trilafon prn agitation. --restlessness appears to be related to catatonia in my opinion rather than akathisia. That said, will offer prn beta brad as trial for comfort, BP has been elevated anyway, would prefer to implement this rather than increasing Cozaar acutely --no clear benefit from hs clonazepam and treatment of choice for catatonia is lorazepam so taper Klonopin in favor of Ativan TID + prn. Remains on 1-on-1 for falls precautions. 08/28 --continue Zyprexa titration to 20 mg po qhs --may use propranolol TID prn --replace HS Klonopin with 2 mg Ativan as appears more effective 08/29 - Continue Zyprexa 20mg qHS, propranolol TID prn, Ativan 2mg qHS, and prn Trilafon - Recent labs reviewed: Li level = 0.4; Depakote level = 27 - BUN elevated at 36, creatinine elevated at 1.88. GFR = 27.5. - Due to progressive worsening of kidney function and apparent improvement with addition of other agents, will discontinue [place] at this time. - Increase Depakote to 750mg tonight. Depakote trough level ordered for 2017. 08/30 - Continue current meds with the exception of stopping AM ativan due to sedation, and concerns for fall risk 08/31 -Continue current medications, including Lorazepam 1 mg q. 1200 and 1700 hrs. and 2 mg at bedtime, Depakote 750 mg nightly, olanzapine 20 mg nightly, propanolol 20 mg 3 times daily as needed for restlessness, perphenazine 4 mg as needed for agitation, and melatonin 9 mg at bedtime. -Continue one-to-one monitoring. 09/01 - Continue current meds and plan including 1:1 09/02 - Add Trilafon 4 mg. TID 09/03 - increase trilafon to and pending VPA level and BMP on 09/04, will add CBC due to BRBPR yesterday due to hemrrhoids, and TSH (see below). will watch her sedation and if sedated will lower ativan 09/04/17 - patient is not showing tangible gains from this provider's review of chart and observation over last 2 days. Nursing staff felt she was less pervasively agitated on 09/03, and but she seems to continue to demonstrate pattern of delirium (waxing and waning mental state with fragmented sleep, hallucinations and waking in anxious state disoriented, labile) The inpatient team has done a heroic job of caring for this woman who has very complicated and refractory primary mental health condition and what appears to be superimposed delirium her prognosis is poor. She did best on lithium as a component of her treatment to date. Review of record is that patient's kidney function (creatinine and BUN) worsened on lithium earlier this month, but at 150mg/hs for 7days she had two of her best days inpatient on 08/29 (date of discontinuation), and 08/30 (day after discontinuation) even though her level was only 0.4 on 08/29. I will discuss with primary team as there are very serious risks of returning to lithium. - it is not clear if remeron provided an improvement for patient last night, or it was the last of a series of several sedating medications. Although it is optimal in delirium to keep up in the day and sleep at night, given she is only getting 1-4hours/night it is hard to justify waking her only for her to be agitated in the day today. Will discuss with staff and attempt to keep her up to a degree possible with light cues and stimulus in the day and lower stimulus at night - continue trilafon for now scheduled with PRN, she did require less in the last 24hours than the preceding day but it remains to be see if that is improvement - increase Depakote from 750 (level 57, free level pending) to 1000mg tonight repeat level ordered for 09/09/17 AM - she is anemic, stably so compared to 07/2017, but will draw ferritin, transferin and transferrin Saturation and TIBC to r/o iron deficiency as contributing to RLS as she is anemic, would replete with oral iron if this returns low, will discus with primary team as vitamin E may impair the response for her iron deficiency anemia - consider MVI in place of vitamin E (as not to over- dose with time) - avoid anticholinergics - she remains on benzodiazepines at this time (combination of scheduled and prns getting 5-6mg/day in the last 2 days), and although there was prior speculation of agitated catatonia in the chart it is not clear to me that the current prn doses are meaningfully helpful and can worsen delirium. Will maintain scheduled ativan 1mg 12, 1mg 1700 and 2mg/hs but stop the prn doses, and prefer trilafon prn psychosis/agitation - will not write for standing dose of remeron but if staff call again this evening after scheduled medications and patient is not sleeping would consider again giving 7.5mg remeron with caution monitoring for oversedation and future mood elevation, and watch RLS - will ask staff to get a clock drawing for goal of serial clock drawings overtime can assist in tracking delirium recovery 09/05 -Continue Depakote 1000 mg nightly, with a repeat trough level on 09/09/2017. -Continue olanzapine 20 mg nightly, perphenazine 4 mg twice daily and 8 mg nightly, and decrease Lorazepam to 1 mg q. 1700 and 2 mg nightly (discontinuing the 1 mg dose at noon). Continue perphenazine and propranolol as needed's. 09/06 - AM sedation, but poor sleep at night. Shift trilafon to 4 mg. at 1400 and 12 mg. HS 09/07 -Continue current medications and one-to-one supervision, private room, and fall precautions. 09/08 - Continue current plan and meds. 09/09 - Continue current medications - Depakote level this morning = 68 09/10 - Irritable and impulsive on Depakote. Will taper to 500 mg. HS and start trial of Neurontin 100 mg. TID titrating as tolerated. - Will need to monitor renal functions over time 09/11 - Increase Neurontin to 200 mg. TID 09/12 -Continue current medications. Multiple medication changes made over the weekend, and we need to give this time to work. She reports an allergy to clozapine, and is unable to consent to ECT and her current condition. In addition, her boyfriend has stated that he does not think she responded well to ECT in the past, and has not been supportive of it. Additionally, she does not have the resources to continue with outpatient ECT after the initial inpatient course, so it is not a viable option at this time. -Order repeat BMP for tomorrow, to monitor kidney function. -She remains on one-to-one, although staff reports some of her behavioral issues appear volitional. Will ask the one-to-one staff to try watching her from a distance, to see if she is able to tolerate less direct oversight. 09/13 -DC depakote - Increase Neurontin to 200-200-600 mg 09/14 - 09/15 -continue current meds and plan. 09/16 - Neurontin increased to [phone] - Continue other medications as directed. 09/17 -continue current medications. Monitor gait, as she is unsteady today. (2) Chronic kidney disease (CKD) 08/11 - DC lithium. Will attempt to stabilize mood with atypicals - Collaborate with Dr. Ovalles as needed 08/20 - Restart [place] at 150mg qHS in attempt to stabilize mood and target manic behaviors. Ideally would be used in the short-term until response to Vraylar is more evident; however, patient is known to have responded well in the past. 08/21 - increase losartan to 50mg for persistently elevated BP's 08/23 -Low-dose lithium resumed 08/20/2017 due to acute worsening of psychiatric symptoms thought possibly due to discontinuation of lithium after being on it for many years. [place] trough and BMP ordered for 08/25/2017. 08/25 -[place] trough level 0.3, BUN 30, creatinine 1.77. These are up slightly from 08/10/2017, 1 BUN was 23 and creatinine 1.46. We will continue to monitor closely, ensure adequate hydration, and recheck in 4 days. If kidney function worsens, we will need to discontinue the lithium, as previously discussed with nephrology (Dr. Foreman on 07/25/2017). 08/29 - Labs reviewed: Li level = 0.4. BUN and Cr elevated at 36 and 1.88 respectively. GFR as outpatient progressively decreasing from 43.6 to 38.3. Most recent GFR = 27.5 - Will d/c [place] in favor of Depakote titration 08/31 -Will recheck BMP on 09/04/2017 to monitor kidney function. Continue to encourage fluids. 09/04 - Cr 1.48 and BUN 23, continue to encourage fluids (3) Hypothyroidism 08/11 - TSH WNL and not on levothyroxine. - May have had abnl values in the past related to being on lithium 08/26 - BP elevated. Will increase Cozaar to 75 mg. daily - VS BID 09/03/17 - will add TSH to labs for tomorrow given exopthalamos, h/o hypothyroid and not on levothyroxine 09/04 TSH WNL (4) Hyperlipemia 08/11 - Continue home dose of atorvastatin - FLP done 07/24 08/23 -Patient intermittently refusing cholestyramine; discontinue for now as also on atorvastatin and trying to limit polypharmacy. (5) Hypertension 08/31 -has been persistently hypertensive for the past several days, and intermittently hypertensive throughout her stay. No known history of hypertension, and EKG on 08/19/2017 was normal sinus rhythm. Consider need for hospitalist assistance if hypertension persists. 09/03 - normotensive this AM was hypertensive last evening but may also correlate with values taken at time of agitation, will monitor closely, Temp is not elevated and will check WBC tomorrow, do not think this is related to malignant catatonia at this time 09/04 - BP varies high in the evening and lower in the day, continue to monitor closely 09/07 - Was normotensive for 2 days, and yesterday evening had elevated blood pressure, but again normal this morning. Continue to monitor. Discharge / Aftercare Planning Primary Care Physician: Name: Santos JACKSON Wefunder Appointment Notes: [address] [place] [address] Psychiatrist: Name: Dr. Hahn [facility] Appointment Notes: [address] [place] [id number] Therapist: Name: Greyson Silverio [facility] Appointment Notes: [address] [place] [id number] Education Counselor: Name: Zulay Macias [facility]: Home Health Services: social welfare clerk, home health agency Home Health Agency: [facility] Specialist: Name: Dr. Demarcus Ovalles, Tube Test Technician [facility] Phone Number: [phone] Date of Appointment: Oct 21, 2017 Time of Appointment: 1:15pm Visit Code E&M Code: 58940 Inventory Assets Strengths: Support from partner, good relationship with outpatient provider Needs: Clarity with her medications Risk Factors Assessment : Yes /single/: No Higher / Fall in social status: No Access to guns: No Health problems: Yes Mental Health Diagnoses: Yes Substance use disorders: No Previous attempt: Yes Family history of suicide: Yes Previous psychiatric stay: Yes Hopelessness: No Smoker: No Protective Factors Assessment : No Responsible for young children: No Employed: No Stable relationships: Yes Supportive family: Yes Good rapport with provider: Yes Data Vital Signs Last 24 Hrs: Date Time Temp Pulse Resp B/P (MAP) Pulse Ox O2 Delivery O2 Flow Rate FiO2 09/16/17 21:17 37.1 81 16 128/59 (82) 99 135/78 (97) Meds Administered Last 24 Hrs: Meds Administered (Past 24Hrs) Medications (Trade) Dose Ordered Sig/Kelsey Route Start Time Stop Time Status Last Admin Dose Admin Gabapentin (Neurontin Cap) 400 mg BID@0900,1400 PO 09/16/17 14:00 10/13/17 13:59 09/16/17 14:35 400 MG Gabapentin (Neurontin Tab) 800 mg HS PO 09/16/17 22:00 10/13/17 21:59 09/16/17 21:02 800 MG Problem Qualifiers (1) Chronic kidney disease (CKD): Chronic kidney disease stage: stage 1 Qualified Codes: N18.1 - Chronic kidney disease, stage 1
[2017-09-17] MEDS: GABAPENTIN 400 MG CAP PO SCH ×2 (08:54→14:16)
[2017-09-17] MEDS: LOSARTAN POTASSIUM 25 MG TAB PO SCH (08:54)
[2017-09-17] MEDS: CEROVITE ADV FORMULA TAB PO SCH (08:54)
[2017-09-17] MEDS: PANTOprazole SOD 40 MG TAB PO SCH (08:54)
[2017-09-17] MEDS: TOCOPHERYL, DL-ALPHA 400 INTER.UNIT CAP PO SCH (08:54)
[2017-09-17] MEDS: MONTELUKAST SOD 10 MG TAB PO SCH (08:54)
[2017-09-17] MEDS: PERPHENAZINE 2 MG TAB PO PRN ×3 (08:55→22:22)
[2017-09-17] MEDS: OMEGA-3 (PURIFIED FISH OIL) 1 GM CAP PO SCH ×2 (08:55→20:10)
[2017-09-17] MEDS: PROPRANOLOL HCL 20 MG TAB PO PRN ×2 (08:57→19:50)
[2017-09-17] MEDS: PERPHENAZINE 2 MG TAB PO SCH ×2 (14:18→20:11)
[2017-09-17] MEDS: LORAZEPAM 1 MG TAB PO SCH (17:18)
[2017-09-17 19:53] VITALS: BP 163/66; PULSE 99
[2017-09-17] MEDS: MELATONIN 3 MG PO SCH (20:10)
[2017-09-17] MEDS: GABAPENTIN 800 MG TAB PO SCH (20:10)
[2017-09-17] MEDS: LORAZEPAM 2 MG TAB PO SCH (20:10)
[2017-09-17] MEDS: ATORVASTATIN 10 MG TAB PO SCH (20:10)
[2017-09-17] MEDS: OLANZAPINE 20 MG TAB PO SCH (20:11)
[2017-09-17 22:18] VITALS: BP 165/66; PULSE 99; TEMP 37.1; O2SAT 94
[2017-09-17] MEDS: MAGNESIUM HYDROXIDE SUSP 30 ML UDC PO PRN (23:34)
--- NOTE | 2017-09-18 07:43 | Psychiatric Progress Notes ---
Progress Note Date of Service September 18, 2017. Interval History 67-year-old woman readmitted voluntarily for psychotic stefan 3 days after last hospitalization. She has had a complicated course, daily multiple medication trials, and with overlying delirium. Chief Complaint "Jayy got ". Subjective Patient was seen & assessed interval progress reviewed with Nursing and social work. Staff report she was difficult to redirect yesterday, at one point was grabbing staff's badge and keys, running away from staff, and would take her hearing aid out and tell staff she couldn't hear them. She was loud at times. Sleep was broken, up every hour or so. She appeared to be trying to disimpact herself, and got milk of magnesia, and had a bowel movement this morning. On my assessment, she was seen in her room, where she was eating breakfast. She spent a significant amount of time rearranging the food on her plate, and then mixing all of her food together and chopping at up, without actually eating it. She mumbled constantly under her breath, at times incoherently, but was able to answer some questions. Her mood is "who knows, I cannot say, I feel energy. " When asked if she has any thing she would like to work on today, she says " do not take away things from me." She was again reminded of the importance of remaining calm and in control of her behavior, not throwing things or striking at staff, and agreed. She denies suicidal thoughts, thoughts of harming others , and hallucinations. Review of Systems Denies pain, headache, nausea and vomiting. Sleep Information Total Hours of Sleep: 6.25 Meal Information Percent of Breakfast Consumed: 90 Percent of Lunch Consumed: 100 Percent of Dinner Consumed: 100 Mental Status Exam During interview pt is: alert and oriented, cooperative (But a limited historian) Appearance: appropriately dressed, appropriately groomed Eye contact is: fair Motor behavior is: steady gait & station Speech: other (Excessive speech, mumbling incoherently much of the time.) Affect: euthymic Mood is: other ("Who knows, I can't say, I feel energy.") Thought process: other (At times answers questions appropriately, other times mumbles incoherently.) Thought content: reality based without delusions Suicidal thought are: denied Homicidal thoughts are: denied Hallucinations: denies auditory, denies visual Cognition: other (Distractible) Insight: severely impaired Judgement: severely impaired Medication Trials lithium - renal failure risperidone thiothixene quetiapine haloperidol Vraylar - ineffective after 12 days chlorpromazine perphenazine Depakote Artane - questionably effective for akathisia benztropine clonazepam lorazepam clozapine - listed as allergy ECT - ineffective per boyfriend sertraline zolpidem gabapentin propranolol Impression Pt continues to require frequent redirection from staff, is irritable at times, and disorganized,. Overall appears to be improving, but does have agitated outbursts from time to time. Will continue current dose of gabapentin and allow it time to take effect. She continues to require inpatient mental health treatment until her condition can be stabilized and she is no longer at risk of harm to self or others. Plan (1) Bipolar 1 disorder with mixed features 08/11 - Increase Klonopin back to 1.5 mg HS to target sleep - Will DC lithium at this point due to concerns for her age and renal status - Will increase Risperdal to 1 mg. AM and 7 mg HS - Will DC navane to reduce polypharmacy - Continue prn haldol and increase to q 4 hr prn - Will have nursing attempt to preauth Vraylar to trial - DC Zoloft - Q 15 min checks for safety - Encourage participation in group and individual counseling as tolerated - Coordinate with current providers - had FLP and FBS on 07/23/17. All WNL with the exception of triglycerides of 151 and FBS 129 08/12 - Vraylar trial when Alex can bring it in - Start 1.5 mg daily increasing to 3 mg daily the following day. - Will taper risperdal at the same time 08/13 -Vraylar was actually started at 3mg hs on 08/12 since only 3mg capsules for supply. given s/e profile will move vraylar to earlier in day, will maintain pt at 3mg for time being given long half life of med and long half life of active metabolite tapering risperdal maintained at 1mg am and 3mg hs for now since just lowered by 4mg continue prn haldol doses 08/14 -maintained vraylar 3mg qday -maintained risperdal 1mg am and 3mg hs for now, aim to wean risperdal further as adjusting to vraylar over next days 08/15 - Continue Vraylar 3mg daily - Plan to continue to taper risperdal, however patient appears to be displaying more restlessness today in regard to manic behaviors and requiring redirection from staff and prn Haldol more frequently. - Attempt to determine proximity to baseline with visits from her fiance 08/16 - Vraylar increased to 6mg daily 08/17 - Discontinue risperidone due to inefficacy, and increase Haldol prn to 10mg. - Resume trihexphenidyl at 1mg daily and monitor restlessness as able. Challenging to know if her agitation is due to akathisia, anxiety, psychosis, or stefan, and she is a limited historian. 08/18 - DC haldol due to no response - Start Thorazine 25 mg. q 2 hr prn during the day and 100 mg. scheduled at HS 08/19 - Increase thorazine to 50 q 3 hr prn and 200 mg. HS - Try to maintain good sleep wake cycles - EKG today 08/20 - 150mg of Laureldale to be added this evening to stabilize mood in interim of response to Vraylar, level in 5 days to monitor for possible toxicity. - Increase Klonopin to 2.5mg qHS to better target sleep. Pt remains on 1-to- 1 observation currently, continue safety precautions for fall risk with medication changes - Encourage sleep as able, with target to keep patient in appropriate sleep- wake cycle. Daytime naps are limited in length. 08/21 - Li restarted yesterday which is not expected to demonstrate a quick benefit but in deference to long standing treatment and increased risk for ongoing mood instability off the medication. given renal impairment, she will need more frequent monitoring but the potential benefit is felt to outweigh the risk given the severity of her underlying mental health d/o. I would suggest maintaining this very low dose and checking a level on the (which I ordered today) before further titration. - sleeping more in last 24h getting high dose Thorazine which, unfortunately , may also be making her delirious. I am uncertain if she has been treated with high dose seroquel previously but that could be considered as an alternative if she struggles to tolerate the Thorazine moving forward. - will increase melatonin to 9mg qhs for additional sleep benefit with minimal risk for worsening delirium. could also consider temporarily maximizing ambien at 10mg but will defer for today 2/2 delirium as sleep is presently improving which will hopefully show antimanic effect. 08/22 - Continue on Thorazine, Vraylar, Laureldale, and Klonopin. Laureldale level ordered for 08/25. - Will attempt to develop plan to decrease low-dose polypharmacy; Pt's significant other hesitant for other medication changes and is unwilling for ECT at this time - Continue delirium protocol with encouraging appropriate sleep/wake cycles 08/23 -Continue environmental and behavioral interventions for delirium, reviewed her medications and attempting to eliminate unnecessary medications ( cholestyramine discontinued as she was refusing it and not acutely important). -Try to consolidate sleep at night; continue melatonin 9 mg, clonazepam 2.5 mg, zolpidem 5 mg, and chlorpromazine 200 mg at bedtime. -Continue Vraylar 6 mg every morning (started 08/12/2017). -Continue trihexyphenidyl 1 mg every morning for akathisia. -Laureldale 150 mg at bedtime restarted 08/20/2017; level and BMP ordered for . 08/24 1. DC Vraylar- Has not shown any improvement since added 2. DC Thorazine- No significant improvement and contributing to anticholinergic load 3. DC Artane- Difficult to tell whether she is restless or whether restlessness is due to stefan, and concern for anticholinergic load 4. DC Ambien- Can contribute to confusion, especially in women 5. DC Vistaril- due to concerns for anticholinergic load 6. Retrial Depakote ER 500 mg. HS titrated to therapeutic level. Has been on this in the past but reports from pt and Alex provide different memories of it. 7. Trial Zyprexa- Will start low with 5 mg due to long half life of Vraylar , to target stefan 8. Continue lithium low dose, re-added due to concerns that withdrawing it after she has been on it for years has contributed to deterioration. Caution to renal status 9. Continue Klonopin 10. Continue Tramadol prn, but have encouraged nursing to use it only sparingly. 08/25 -Increase olanzapine to 7.5mg HS and prn to 5mg. -Laureldale trough 0.3; creatinine and BUN up slightly at 30 and 1.77. Continue to encourage adequate hydration, and will recheck lithium trough and BMP in 4 days. -Continue Depakote 500 mg nightly, and check a Depakote trough on 08/29/2017. -Consideration for ECT stefan, psychosis, and delirium do not improve. 08/26 -Increase HS zyprexa to 10 mg. continue prn's - Continue to encourage hydration - Continue depakote with level 08/29 - Will obtain CBC and UA to rule out UTI, dyscrasia - Continue to consider ECT if no improvement 08/27 --continue Zyprexa titration to 15 mg po qhs, d/c prn doses as no apparently benefit; given longstanding rx with a typical antipsychotic (Navane) and some response to Haldol prn, trial of Trilafon prn agitation. --restlessness appears to be related to catatonia in my opinion rather than akathisia. That said, will offer prn beta brad as trial for comfort, BP has been elevated anyway, would prefer to implement this rather than increasing Cozaar acutely --no clear benefit from hs clonazepam and treatment of choice for catatonia is lorazepam so taper Klonopin in favor of Ativan TID + prn. Remains on 1-on-1 for falls precautions. 08/28 --continue Zyprexa titration to 20 mg po qhs --may use propranolol TID prn --replace HS Klonopin with 2 mg Ativan as appears more effective 08/29 - Continue Zyprexa 20mg qHS, propranolol TID prn, Ativan 2mg qHS, and prn Trilafon - Recent labs reviewed: Li level = 0.4; Depakote level = 27 - BUN elevated at 36, creatinine elevated at 1.88. GFR = 27.5. - Due to progressive worsening of kidney function and apparent improvement with addition of other agents, will discontinue Laureldale at this time. - Increase Depakote to 750mg tonight. Depakote trough level ordered for 2017. 08/30 - Continue current meds with the exception of stopping AM ativan due to sedation, and concerns for fall risk 08/31 -Continue current medications, including Lorazepam 1 mg q. 1200 and 1700 hrs. and 2 mg at bedtime, Depakote 750 mg nightly, olanzapine 20 mg nightly, propanolol 20 mg 3 times daily as needed for restlessness, perphenazine 4 mg as needed for agitation, and melatonin 9 mg at bedtime. -Continue one-to-one monitoring. 09/01 - Continue current meds and plan including 1:1 09/02 - Add Trilafon 4 mg. TID 09/03 - increase trilafon to and pending VPA level and BMP on 09/04, will add CBC due to BRBPR yesterday due to hemrrhoids, and TSH (see below). will watch her sedation and if sedated will lower ativan 09/04/17 - patient is not showing tangible gains from this provider's review of chart and observation over last 2 days. Nursing staff felt she was less pervasively agitated on 09/03, and but she seems to continue to demonstrate pattern of delirium (waxing and waning mental state with fragmented sleep, hallucinations and waking in anxious state disoriented, labile) The inpatient team has done a heroic job of caring for this woman who has very complicated and refractory primary mental health condition and what appears to be superimposed delirium her prognosis is poor. She did best on lithium as a component of her treatment to date. Review of record is that patient's kidney function (creatinine and BUN) worsened on lithium earlier this month, but at 150mg/hs for 7days she had two of her best days inpatient on 08/29 (date of discontinuation), and 08/30 (day after discontinuation) even though her level was only 0.4 on 08/29. I will discuss with primary team as there are very serious risks of returning to lithium. - it is not clear if remeron provided an improvement for patient last night, or it was the last of a series of several sedating medications. Although it is optimal in delirium to keep up in the day and sleep at night, given she is only getting 1-4hours/night it is hard to justify waking her only for her to be agitated in the day today. Will discuss with staff and attempt to keep her up to a degree possible with light cues and stimulus in the day and lower stimulus at night - continue trilafon for now scheduled with PRN, she did require less in the last 24hours than the preceding day but it remains to be see if that is improvement - increase Depakote from 750 (level 57, free level pending) to 1000mg tonight repeat level ordered for 09/09/17 AM - she is anemic, stably so compared to 07/2017, but will draw ferritin, transferin and transferrin Saturation and TIBC to r/o iron deficiency as contributing to RLS as she is anemic, would replete with oral iron if this returns low, will discus with primary team as vitamin E may impair the response for her iron deficiency anemia - consider MVI in place of vitamin E (as not to over- dose with time) - avoid anticholinergics - she remains on benzodiazepines at this time (combination of scheduled and prns getting 5-6mg/day in the last 2 days), and although there was prior speculation of agitated catatonia in the chart it is not clear to me that the current prn doses are meaningfully helpful and can worsen delirium. Will maintain scheduled ativan 1mg 12, 1mg 1700 and 2mg/hs but stop the prn doses, and prefer trilafon prn psychosis/agitation - will not write for standing dose of remeron but if staff call again this evening after scheduled medications and patient is not sleeping would consider again giving 7.5mg remeron with caution monitoring for oversedation and future mood elevation, and watch RLS - will ask staff to get a clock drawing for goal of serial clock drawings overtime can assist in tracking delirium recovery 09/05 -Continue Depakote 1000 mg nightly, with a repeat trough level on 09/09/2017. -Continue olanzapine 20 mg nightly, perphenazine 4 mg twice daily and 8 mg nightly, and decrease Lorazepam to 1 mg q. 1700 and 2 mg nightly (discontinuing the 1 mg dose at noon). Continue perphenazine and propranolol as needed's. 09/06 - AM sedation, but poor sleep at night. Shift trilafon to 4 mg. at 1400 and 12 mg. HS 09/07 -Continue current medications and one-to-one supervision, private room, and fall precautions. 09/08 - Continue current plan and meds. 09/09 - Continue current medications - Depakote level this morning = 68 09/10 - Irritable and impulsive on Depakote. Will taper to 500 mg. HS and start trial of Neurontin 100 mg. TID titrating as tolerated. - Will need to monitor renal functions over time 09/11 - Increase Neurontin to 200 mg. TID 09/12 -Continue current medications. Multiple medication changes made over the weekend, and we need to give this time to work. She reports an allergy to clozapine, and is unable to consent to ECT and her current condition. In addition, her boyfriend has stated that he does not think she responded well to ECT in the past, and has not been supportive of it. Additionally, she does not have the resources to continue with outpatient ECT after the initial inpatient course, so it is not a viable option at this time. -Order repeat BMP for tomorrow, to monitor kidney function. -She remains on one-to-one, although staff reports some of her behavioral issues appear volitional. Will ask the one-to-one staff to try watching her from a distance, to see if she is able to tolerate less direct oversight. 09/13 -DC depakote - Increase Neurontin to 200-200-600 mg 09/14 - 09/15 -continue current meds and plan. 09/16 - Neurontin increased to [id number] - Continue other medications as directed. 09/17 -continue current medications. Monitor gait, as she is unsteady today. 09/18 -continue current medications and plan. Patient has had a prolonged hospital course, has failed multiple medication trials, and her symptoms have been very challenging to treat due to her medical comorbidities and lack of robust response, as well as complicating delirium. We are attempting to limit medications that could worsen her overall condition, but that also treat her mental health symptoms. (2) Chronic kidney disease (CKD) 08/11 - DC lithium. Will attempt to stabilize mood with atypicals - Collaborate with Dr. Ovalles as needed 08/20 - Restart Laureldale at 150mg qHS in attempt to stabilize mood and target manic behaviors. Ideally would be used in the short-term until response to Vraylar is more evident; however, patient is known to have responded well in the past. 08/21 - increase losartan to 50mg for persistently elevated BP's 08/23 -Low-dose lithium resumed 08/20/2017 due to acute worsening of psychiatric symptoms thought possibly due to discontinuation of lithium after being on it for many years. Laureldale trough and BMP ordered for 08/25/2017. 08/25 -Laureldale trough level 0.3, BUN 30, creatinine 1.77. These are up slightly from 08/10/2017, 1 BUN was 23 and creatinine 1.46. We will continue to monitor closely, ensure adequate hydration, and recheck in 4 days. If kidney function worsens, we will need to discontinue the lithium, as previously discussed with nephrology (Dr. Foreman on 07/25/2017). 08/29 - Labs reviewed: Li level = 0.4. BUN and Cr elevated at 36 and 1.88 respectively. GFR as outpatient progressively decreasing from 43.6 to 38.3. Most recent GFR = 27.5 - Will d/c Laureldale in favor of Depakote titration 08/31 -Will recheck BMP on 09/04/2017 to monitor kidney function. Continue to encourage fluids. 09/04 - Cr 1.48 and BUN 23, continue to encourage fluids (3) Hypothyroidism 08/11 - TSH WNL and not on levothyroxine. - May have had abnl values in the past related to being on lithium 08/26 - BP elevated. Will increase Cozaar to 75 mg. daily - VS BID 09/03/17 - will add TSH to labs for tomorrow given exopthalamos, h/o hypothyroid and not on levothyroxine 09/04 TSH WNL (4) Hyperlipemia 08/11 - Continue home dose of atorvastatin - FLP done 07/24 08/23 -Patient intermittently refusing cholestyramine; discontinue for now as also on atorvastatin and trying to limit polypharmacy. (5) Hypertension 08/31 -has been persistently hypertensive for the past several days, and intermittently hypertensive throughout her stay. No known history of hypertension, and EKG on 08/19/2017 was normal sinus rhythm. Consider need for hospitalist assistance if hypertension persists. 09/03 - normotensive this AM was hypertensive last evening but may also correlate with values taken at time of agitation, will monitor closely, Temp is not elevated and will check WBC tomorrow, do not think this is related to malignant catatonia at this time 09/04 - BP varies high in the evening and lower in the day, continue to monitor closely 09/07 - Was normotensive for 2 days, and yesterday evening had elevated blood pressure, but again normal this morning. Continue to monitor. Discharge / Aftercare Planning Primary Care Physician: Name: Santos JACKSON [employer] Appointment Notes: [address] [place] [address] Psychiatrist: Name: Dr. Hahn [facility] Psych Clinic Appointment Notes: [address] [place] [address] Therapist: Name: Katerina Valerio Greyson [facility] Appointment Notes: [address] [place] [id number] Email Producer: Name: Zulay Macias Menezes [facility] Services: Home Health Services: social media marketing analyst, home health agency Home Health Agency: [facility] Specialist: Name: Dr. Demarcus Ovalles, Market Director [facility] Phone Number: [phone] Date of Appointment: Oct 21, 2017 Time of Appointment: 1:15pm Visit Code E&M Code: 23388 Inventory Assets Strengths: Support from partner, good relationship with outpatient provider Needs: Clarity with her medications Risk Factors Assessment : Yes /single/: No Higher / Fall in social status: No Access to guns: No Health problems: Yes Mental Health Diagnoses: Yes Substance use disorders: No Previous attempt: Yes Family history of suicide: Yes Previous psychiatric stay: Yes Hopelessness: No Smoker: No Protective Factors Assessment : No Responsible for young children: No Employed: No Stable relationships: Yes Supportive family: Yes Good rapport with provider: Yes Data Vital Signs Last 24 Hrs: Date Time Temp Pulse Resp B/P (MAP) Pulse Ox O2 Delivery O2 Flow Rate FiO2 09/17/17 22:18 37.1 99 16 165/66 (99) 94 Room Air 09/17/17 19:53 99 163/66 (98) Meds Administered Last 24 Hrs: Meds Administered (Past 24Hrs) Medications (Trade) Dose Ordered Sig/Kelsey Route Start Time Stop Time Status Last Admin Dose Admin Gabapentin (Neurontin Cap) 400 mg BID@0900,1400 PO 09/16/17 14:00 10/13/17 13:59 09/17/17 14:16 400 MG Gabapentin (Neurontin Tab) 800 mg HS PO 09/16/17 22:00 10/13/17 21:59 09/17/17 20:10 800 MG Problem Qualifiers (1) Chronic kidney disease (CKD): Chronic kidney disease stage: stage 1 Qualified Codes: N18.1 - Chronic kidney disease, stage 1
[2017-09-18] MEDS: LOSARTAN POTASSIUM 25 MG TAB PO SCH (07:44)
[2017-09-18] MEDS: CEROVITE ADV FORMULA TAB PO SCH (07:44)
[2017-09-18] MEDS: OMEGA-3 (PURIFIED FISH OIL) 1 GM CAP PO SCH ×2 (07:45→21:19)
[2017-09-18] MEDS: PANTOprazole SOD 40 MG TAB PO SCH (07:45)
[2017-09-18] MEDS: MONTELUKAST SOD 10 MG TAB PO SCH (07:45)
[2017-09-18] MEDS: GABAPENTIN 400 MG CAP PO SCH ×2 (07:45→13:58)
[2017-09-18] MEDS: TOCOPHERYL, DL-ALPHA 400 INTER.UNIT CAP PO SCH (07:45)
[2017-09-18] MEDS: PERPHENAZINE 2 MG TAB PO PRN (07:46)
[2017-09-18] MEDS: PERPHENAZINE 2 MG TAB PO SCH ×2 (13:58→21:19)
[2017-09-18] MEDS: LORAZEPAM 1 MG TAB PO SCH (17:32)
[2017-09-18 21:04] VITALS: BP 125/74; PULSE 89
[2017-09-18] MEDS: ATORVASTATIN 10 MG TAB PO SCH (21:18)
[2017-09-18] MEDS: LORAZEPAM 2 MG TAB PO SCH (21:18)
[2017-09-18] MEDS: MELATONIN 3 MG PO SCH (21:19)
[2017-09-18] MEDS: GABAPENTIN 800 MG TAB PO SCH (21:19)
[2017-09-18] MEDS: OLANZAPINE 20 MG TAB PO SCH (21:20)
[2017-09-19 06:57] VITALS: O2SAT 93
[2017-09-19] MEDS: TOCOPHERYL, DL-ALPHA 400 INTER.UNIT CAP PO SCH (08:28)
[2017-09-19] MEDS: GABAPENTIN 400 MG CAP PO SCH ×2 (08:28→14:23)
[2017-09-19] MEDS: PANTOprazole SOD 40 MG TAB PO SCH (08:28)
[2017-09-19] MEDS: LOSARTAN POTASSIUM 25 MG TAB PO SCH (08:28)
[2017-09-19] MEDS: CEROVITE ADV FORMULA TAB PO SCH (08:28)
[2017-09-19] MEDS: MONTELUKAST SOD 10 MG TAB PO SCH (08:28)
[2017-09-19] MEDS: OMEGA-3 (PURIFIED FISH OIL) 1 GM CAP PO SCH ×2 (08:29→20:46)
--- NOTE | 2017-09-19 09:29 | Psychiatric Progress Notes ---
Progress Note Date of Service September 19, 2017. Interval History 67-year-old woman readmitted voluntarily for psychotic stefan 3 days after last hospitalization. She has had a complicated course, daily multiple medication trials, and with overlying delirium. Chief Complaint "I'm going home today, I'm leaving before lunch". Subjective Patient was seen & assessed interval progress reviewed with Treatment Team. Staff reports the patient has signed her 72-hour notice requesting to leave care. Pt is reported to be occasionally disorganized and display agitation from time to time. Pt was seen several times today in attempts to explain the meaning of the 72-hour notice. Pt has spent time this morning packing her room - under the assumption she was leaving "right now". Pt remains agitated and distracted, and unable to tolerate initial conversations about the possibility of being hospitalized for up to 72-hours or longer if she meets 302 criteria at time of her anticipated discharge. When discussing her signed notice, patient states, "I signed it for right now, and I want discharge with O2, you're suffocating me here." Will continue to discuss as able and attempt to prevent increased agitation with these discussions, thus far she has not appeared appropriate to have a decent conversation about her discharge status without increasing aggravation. Pt continues to display periods of having full conversations with herself, at times becoming angry or tearful during these episodes. Pt is unable to explain to this provider what she is experiencing during these times. Review of Systems Psych: denies symptoms other than stated above Constitutional: denied Cardiovascular: denied GI: denied Neurologic: denied Remainder of 10 body systems also reviewed and denied other than noted above. Sleep Information Total Hours of Sleep: 6.50 Meal Information Percent of Breakfast Consumed: 40 Percent of Lunch Consumed: 50 Percent of Dinner Consumed: 35 Mental Status Exam During interview pt is: alert and oriented, uncooperative Appearance: appropriately dressed, appropriately groomed Eye contact is: fair Motor behavior is: no abnormal motor movements Speech: other (Excessive speech, mumbling incoherently at times) Affect: irritable Mood is: irritable Thought process: circumstantial, other (At times answers questions appropriately, other times mumbles incoherently.) Thought content: reality based without delusions Suicidal thought are: denied Homicidal thoughts are: denied Hallucinations: denies auditory, denies visual Cognition: other (easily distracted) Insight: severely impaired Judgement: severely impaired Medication Trials lithium - renal failure risperidone thiothixene quetiapine haloperidol Vraylar - ineffective after 12 days chlorpromazine perphenazine Depakote Artane - questionably effective for akathisia benztropine clonazepam lorazepam clozapine - listed as allergy ECT - ineffective per boyfriend sertraline zolpidem gabapentin propranolol Impression Pt requested and signed her 72-hour notice this morning - expires at 0700 on . Pt unable to tolerate attempts to clarify the meaning of the 72-hour notice , as she is under the assumption she is leaving today. Pt observed to irritable throughout the day when reminded she would not be leaving today, despite her efforts to pack up her belongings. Pt remains on 1-to-1 supervision due to instability, but continues to require redirection due to disorganization and irritability. Pt's condition does appear to be improving overall; however, she does experience agitation from time to time. Will continue current medications and make attempts where appropriate to explain discharge planning, though this is likely to aggravate her further. Unable to discuss rescinding her notice today, but will attempt to continue to discuss means for appropriate and safe discharge. She continues to require inpatient mental health treatment until her condition can be stabilized and she is no longer at risk of harm to self or others. Plan (1) Bipolar 1 disorder with mixed features 08/11 - Increase Klonopin back to 1.5 mg HS to target sleep - Will DC lithium at this point due to concerns for her age and renal status - Will increase Risperdal to 1 mg. AM and 7 mg HS - Will DC navane to reduce polypharmacy - Continue prn haldol and increase to q 4 hr prn - Will have nursing attempt to preauth Vraylar to trial - DC Zoloft - Q 15 min checks for safety - Encourage participation in group and individual counseling as tolerated - Coordinate with current providers - had FLP and FBS on 07/23/17. All WNL with the exception of triglycerides of 151 and FBS 129 08/12 - Vraylar trial when Alex can bring it in - Start 1.5 mg daily increasing to 3 mg daily the following day. - Will taper risperdal at the same time 08/13 -Vraylar was actually started at 3mg hs on 08/12 since only 3mg capsules for supply. given s/e profile will move vraylar to earlier in day, will maintain pt at 3mg for time being given long half life of med and long half life of active metabolite tapering risperdal maintained at 1mg am and 3mg hs for now since just lowered by 4mg continue prn haldol doses 08/14 -maintained vraylar 3mg qday -maintained risperdal 1mg am and 3mg hs for now, aim to wean risperdal further as adjusting to vraylar over next days 08/15 - Continue Vraylar 3mg daily - Plan to continue to taper risperdal, however patient appears to be displaying more restlessness today in regard to manic behaviors and requiring redirection from staff and prn Haldol more frequently. - Attempt to determine proximity to baseline with visits from her fiance 08/16 - Vraylar increased to 6mg daily 08/17 - Discontinue risperidone due to inefficacy, and increase Haldol prn to 10mg. - Resume trihexphenidyl at 1mg daily and monitor restlessness as able. Challenging to know if her agitation is due to akathisia, anxiety, psychosis, or stefan, and she is a limited historian. 08/18 - DC haldol due to no response - Start Thorazine 25 mg. q 2 hr prn during the day and 100 mg. scheduled at HS 08/19 - Increase thorazine to 50 q 3 hr prn and 200 mg. HS - Try to maintain good sleep wake cycles - EKG today 08/20 - 150mg of Tyler to be added this evening to stabilize mood in interim of response to Vraylar, level in 5 days to monitor for possible toxicity. - Increase Klonopin to 2.5mg qHS to better target sleep. Pt remains on 1-to- 1 observation currently, continue safety precautions for fall risk with medication changes - Encourage sleep as able, with target to keep patient in appropriate sleep- wake cycle. Daytime naps are limited in length. 08/21 - Li restarted yesterday which is not expected to demonstrate a quick benefit but in deference to long standing treatment and increased risk for ongoing mood instability off the medication. given renal impairment, she will need more frequent monitoring but the potential benefit is felt to outweigh the risk given the severity of her underlying mental health d/o. I would suggest maintaining this very low dose and checking a level on the (which I ordered today) before further titration. - sleeping more in last 24h getting high dose Thorazine which, unfortunately , may also be making her delirious. I am uncertain if she has been treated with high dose seroquel previously but that could be considered as an alternative if she struggles to tolerate the Thorazine moving forward. - will increase melatonin to 9mg qhs for additional sleep benefit with minimal risk for worsening delirium. could also consider temporarily maximizing ambien at 10mg but will defer for today 2/2 delirium as sleep is presently improving which will hopefully show antimanic effect. 08/22 - Continue on Thorazine, Vraylar, Tyler, and Klonopin. Tyler level ordered for 08/25. - Will attempt to develop plan to decrease low-dose polypharmacy; Pt's significant other hesitant for other medication changes and is unwilling for ECT at this time - Continue delirium protocol with encouraging appropriate sleep/wake cycles 08/23 -Continue environmental and behavioral interventions for delirium, reviewed her medications and attempting to eliminate unnecessary medications ( cholestyramine discontinued as she was refusing it and not acutely important). -Try to consolidate sleep at night; continue melatonin 9 mg, clonazepam 2.5 mg, zolpidem 5 mg, and chlorpromazine 200 mg at bedtime. -Continue Vraylar 6 mg every morning (started 08/12/2017). -Continue trihexyphenidyl 1 mg every morning for akathisia. -Tyler 150 mg at bedtime restarted 08/20/2017; level and BMP ordered for . 08/24 1. DC Vraylar- Has not shown any improvement since added 2. DC Thorazine- No significant improvement and contributing to anticholinergic load 3. DC Artane- Difficult to tell whether she is restless or whether restlessness is due to stefan, and concern for anticholinergic load 4. DC Ambien- Can contribute to confusion, especially in women 5. DC Vistaril- due to concerns for anticholinergic load 6. Retrial Depakote ER 500 mg. HS titrated to therapeutic level. Has been on this in the past but reports from pt and Alex provide different memories of it. 7. Trial Zyprexa- Will start low with 5 mg due to long half life of Vraylar , to target stefan 8. Continue lithium low dose, re-added due to concerns that withdrawing it after she has been on it for years has contributed to deterioration. Caution to renal status 9. Continue Klonopin 10. Continue Tramadol prn, but have encouraged nursing to use it only sparingly. 08/25 -Increase olanzapine to 7.5mg HS and prn to 5mg. -Tyler trough 0.3; creatinine and BUN up slightly at 30 and 1.77. Continue to encourage adequate hydration, and will recheck lithium trough and BMP in 4 days. -Continue Depakote 500 mg nightly, and check a Depakote trough on 08/29/2017. -Consideration for ECT stefan, psychosis, and delirium do not improve. 08/26 -Increase HS zyprexa to 10 mg. continue prn's - Continue to encourage hydration - Continue depakote with level 08/29 - Will obtain CBC and UA to rule out UTI, dyscrasia - Continue to consider ECT if no improvement 08/27 --continue Zyprexa titration to 15 mg po qhs, d/c prn doses as no apparently benefit; given longstanding rx with a typical antipsychotic (Navane) and some response to Haldol prn, trial of Trilafon prn agitation. --restlessness appears to be related to catatonia in my opinion rather than akathisia. That said, will offer prn beta brad as trial for comfort, BP has been elevated anyway, would prefer to implement this rather than increasing Cozaar acutely --no clear benefit from hs clonazepam and treatment of choice for catatonia is lorazepam so taper Klonopin in favor of Ativan TID + prn. Remains on 1-on-1 for falls precautions. 08/28 --continue Zyprexa titration to 20 mg po qhs --may use propranolol TID prn --replace HS Klonopin with 2 mg Ativan as appears more effective 08/29 - Continue Zyprexa 20mg qHS, propranolol TID prn, Ativan 2mg qHS, and prn Trilafon - Recent labs reviewed: Li level = 0.4; Depakote level = 27 - BUN elevated at 36, creatinine elevated at 1.88. GFR = 27.5. - Due to progressive worsening of kidney function and apparent improvement with addition of other agents, will discontinue Tyler at this time. - Increase Depakote to 750mg tonight. Depakote trough level ordered for 2017. 08/30 - Continue current meds with the exception of stopping AM ativan due to sedation, and concerns for fall risk 08/31 -Continue current medications, including Lorazepam 1 mg q. 1200 and 1700 hrs. and 2 mg at bedtime, Depakote 750 mg nightly, olanzapine 20 mg nightly, propanolol 20 mg 3 times daily as needed for restlessness, perphenazine 4 mg as needed for agitation, and melatonin 9 mg at bedtime. -Continue one-to-one monitoring. 09/01 - Continue current meds and plan including 1:1 09/02 - Add Trilafon 4 mg. TID 09/03 - increase trilafon to and pending VPA level and BMP on 09/04, will add CBC due to BRBPR yesterday due to hemrrhoids, and TSH (see below). will watch her sedation and if sedated will lower ativan 09/04/17 - patient is not showing tangible gains from this provider's review of chart and observation over last 2 days. Nursing staff felt she was less pervasively agitated on 09/03, and but she seems to continue to demonstrate pattern of delirium (waxing and waning mental state with fragmented sleep, hallucinations and waking in anxious state disoriented, labile) The inpatient team has done a heroic job of caring for this woman who has very complicated and refractory primary mental health condition and what appears to be superimposed delirium her prognosis is poor. She did best on lithium as a component of her treatment to date. Review of record is that patient's kidney function (creatinine and BUN) worsened on lithium earlier this month, but at 150mg/hs for 7days she had two of her best days inpatient on 08/29 (date of discontinuation), and 08/30 (day after discontinuation) even though her level was only 0.4 on 08/29. I will discuss with primary team as there are very serious risks of returning to lithium. - it is not clear if remeron provided an improvement for patient last night, or it was the last of a series of several sedating medications. Although it is optimal in delirium to keep up in the day and sleep at night, given she is only getting 1-4hours/night it is hard to justify waking her only for her to be agitated in the day today. Will discuss with staff and attempt to keep her up to a degree possible with light cues and stimulus in the day and lower stimulus at night - continue trilafon for now scheduled with PRN, she did require less in the last 24hours than the preceding day but it remains to be see if that is improvement - increase Depakote from 750 (level 57, free level pending) to 1000mg tonight repeat level ordered for 09/09/17 AM - she is anemic, stably so compared to 07/2017, but will draw ferritin, transferin and transferrin Saturation and TIBC to r/o iron deficiency as contributing to RLS as she is anemic, would replete with oral iron if this returns low, will discus with primary team as vitamin E may impair the response for her iron deficiency anemia - consider MVI in place of vitamin E (as not to over- dose with time) - avoid anticholinergics - she remains on benzodiazepines at this time (combination of scheduled and prns getting 5-6mg/day in the last 2 days), and although there was prior speculation of agitated catatonia in the chart it is not clear to me that the current prn doses are meaningfully helpful and can worsen delirium. Will maintain scheduled ativan 1mg 12, 1mg 1700 and 2mg/hs but stop the prn doses, and prefer trilafon prn psychosis/agitation - will not write for standing dose of remeron but if staff call again this evening after scheduled medications and patient is not sleeping would consider again giving 7.5mg remeron with caution monitoring for oversedation and future mood elevation, and watch RLS - will ask staff to get a clock drawing for goal of serial clock drawings overtime can assist in tracking delirium recovery 09/05 -Continue Depakote 1000 mg nightly, with a repeat trough level on 09/09/2017. -Continue olanzapine 20 mg nightly, perphenazine 4 mg twice daily and 8 mg nightly, and decrease Lorazepam to 1 mg q. 1700 and 2 mg nightly (discontinuing the 1 mg dose at noon). Continue perphenazine and propranolol as needed's. 09/06 - AM sedation, but poor sleep at night. Shift trilafon to 4 mg. at 1400 and 12 mg. HS 09/07 -Continue current medications and one-to-one supervision, private room, and fall precautions. 09/08 - Continue current plan and meds. 09/09 - Continue current medications - Depakote level this morning = 68 09/10 - Irritable and impulsive on Depakote. Will taper to 500 mg. HS and start trial of Neurontin 100 mg. TID titrating as tolerated. - Will need to monitor renal functions over time 09/11 - Increase Neurontin to 200 mg. TID 09/12 -Continue current medications. Multiple medication changes made over the weekend, and we need to give this time to work. She reports an allergy to clozapine, and is unable to consent to ECT and her current condition. In addition, her boyfriend has stated that he does not think she responded well to ECT in the past, and has not been supportive of it. Additionally, she does not have the resources to continue with outpatient ECT after the initial inpatient course, so it is not a viable option at this time. -Order repeat BMP for tomorrow, to monitor kidney function. -She remains on one-to-one, although staff reports some of her behavioral issues appear volitional. Will ask the one-to-one staff to try watching her from a distance, to see if she is able to tolerate less direct oversight. 09/13 -DC depakote - Increase Neurontin to 200-200-600 mg 09/14 - 09/15 -continue current meds and plan. 09/16 - Neurontin increased to [id number] - Continue other medications as directed. 09/17 -continue current medications. Monitor gait, as she is unsteady today. 09/18 -continue current medications and plan. Patient has had a prolonged hospital course, has failed multiple medication trials, and her symptoms have been very challenging to treat due to her medical comorbidities and lack of robust response, as well as complicating delirium. We are attempting to limit medications that could worsen her overall condition, but that also treat her mental health symptoms. 09/19 - 72-hour notice signed and submitted to staff - expires 09/22 @ 0700. - Continue current medications and treatment plan (2) Chronic kidney disease (CKD) 08/11 - DC lithium. Will attempt to stabilize mood with atypicals - Collaborate with Dr. Ovalles as needed 08/20 - Restart Tyler at 150mg qHS in attempt to stabilize mood and target manic behaviors. Ideally would be used in the short-term until response to Vraylar is more evident; however, patient is known to have responded well in the past. 08/21 - increase losartan to 50mg for persistently elevated BP's 08/23 -Low-dose lithium resumed 08/20/2017 due to acute worsening of psychiatric symptoms thought possibly due to discontinuation of lithium after being on it for many years. Tyler trough and BMP ordered for 08/25/2017. 08/25 -Tyler trough level 0.3, BUN 30, creatinine 1.77. These are up slightly from 08/10/2017, 1 BUN was 23 and creatinine 1.46. We will continue to monitor closely, ensure adequate hydration, and recheck in 4 days. If kidney function worsens, we will need to discontinue the lithium, as previously discussed with nephrology (Dr. Foreman on 07/25/2017). 08/29 - Labs reviewed: Li level = 0.4. BUN and Cr elevated at 36 and 1.88 respectively. GFR as outpatient progressively decreasing from 43.6 to 38.3. Most recent GFR = 27.5 - Will d/c Tyler in favor of Depakote titration 08/31 -Will recheck BMP on 09/04/2017 to monitor kidney function. Continue to encourage fluids. 09/04 - Cr 1.48 and BUN 23, continue to encourage fluids (3) Hypothyroidism 08/11 - TSH WNL and not on levothyroxine. - May have had abnl values in the past related to being on lithium 08/26 - BP elevated. Will increase Cozaar to 75 mg. daily - VS BID 09/03/17 - will add TSH to labs for tomorrow given exopthalamos, h/o hypothyroid and not on levothyroxine 09/04 TSH WNL (4) Hyperlipemia 08/11 - Continue home dose of atorvastatin - FLP done 07/24 08/23 -Patient intermittently refusing cholestyramine; discontinue for now as also on atorvastatin and trying to limit polypharmacy. (5) Hypertension 08/31 -has been persistently hypertensive for the past several days, and intermittently hypertensive throughout her stay. No known history of hypertension, and EKG on 08/19/2017 was normal sinus rhythm. Consider need for hospitalist assistance if hypertension persists. 09/03 - normotensive this AM was hypertensive last evening but may also correlate with values taken at time of agitation, will monitor closely, Temp is not elevated and will check WBC tomorrow, do not think this is related to malignant catatonia at this time 5 - BP varies high in the evening and lower in the day, continue to monitor closely 09/07 - Was normotensive for 2 days, and yesterday evening had elevated blood pressure, but again normal this morning. Continue to monitor. Discharge / Aftercare Planning Primary Care Physician: Name: Santos [address] [employer] Appointment Notes: [address] [place] [address] Psychiatrist: Name: Dr. Hahn, [facility] Appointment Notes: [address] [place] [id number] Therapist: Name: Katerina Valerio [facility] Appointment Notes: [address] [place] [id number] Dual Hose Cementer: Name: Zulay Macias [facility] Services: Home Health Services: long term care social worker, home health agency Home Health Agency: [facility] Specialist: Name: Dr. Demarcus Ovalles, Coding Coordinator [facility] [place], [place] Phone Number: [phone] Date of Appointment: Oct 21, 2017 Time of Appointment: 1:15pm Visit Code E&M Code: 55757 Inventory Assets Strengths: Support from partner, good relationship with outpatient provider Needs: Clarity with her medications Risk Factors Assessment : Yes /single/: No Higher / Fall in social status: No Access to guns: No Health problems: Yes Mental Health Diagnoses: Yes Substance use disorders: No Previous attempt: Yes Family history of suicide: Yes Previous psychiatric stay: Yes Hopelessness: No Smoker: No Protective Factors Assessment : No Responsible for young children: No Employed: No Stable relationships: Yes Supportive family: Yes Good rapport with provider: Yes Data Vital Signs Last 24 Hrs: Date Time Temp Pulse Resp B/P (MAP) Pulse Ox O2 Delivery O2 Flow Rate FiO2 09/19/17 06:57 93 Room Air 09/18/17 21:04 89 18 125/74 (91) Problem Qualifiers (1) Chronic kidney disease (CKD): Chronic kidney disease stage: stage 1 Qualified Codes: N18.1 - Chronic kidney disease, stage 1
--- NOTE | 2017-09-19 12:18 | Psychiatric Progress Notes ---
Psychiatric Progress Note Date of Service September 19, 2017. Notes Spoke with Dr. Hahn, updated her on patient's course, and medications that have been tried. Discussed her lithium, as we had initially re-trialed it but she had poor response, we were adding multiple new medications, and kidney function was worsening, so it was discontinued. She agreed with avoiding lithium if it all possible. Her past med trials are unknown, as she had been on her meds for years when she came to her.
[2017-09-19] MEDS: PERPHENAZINE 2 MG TAB PO SCH ×2 (14:24→20:47)
[2017-09-19 14:52] VITALS: BP 124/70; PULSE 86; TEMP 36.8
[2017-09-19] MEDS: LORAZEPAM 1 MG TAB PO SCH (17:17)
[2017-09-19] MEDS: ATORVASTATIN 10 MG TAB PO SCH (20:44)
[2017-09-19] MEDS: MELATONIN 3 MG PO SCH (20:45)
[2017-09-19] MEDS: GABAPENTIN 800 MG TAB PO SCH (20:45)
[2017-09-19] MEDS: OLANZAPINE 20 MG TAB PO SCH (20:48)
[2017-09-19] MEDS: LORAZEPAM 2 MG TAB PO SCH (20:50)
[2017-09-19 21:38] VITALS: BP 112/68; PULSE 80
[2017-09-20] MEDS: PERPHENAZINE 2 MG TAB PO PRN (00:22)
[2017-09-20] MEDS: ACETAMINOPHEN 325 MG TAB PO PRN (00:33)
[2017-09-20 08:16] VITALS: BP_SYST 129; BP_SYST 144; BP_DIAS 77; BP_DIAS 82; PULSE 75; PULSE 76; TEMP 36.4
[2017-09-20] MEDS: GABAPENTIN 400 MG CAP PO SCH ×2 (08:41→13:43)
[2017-09-20] MEDS: MONTELUKAST SOD 10 MG TAB PO SCH (08:41)
[2017-09-20] MEDS: CEROVITE ADV FORMULA TAB PO SCH (08:41)
[2017-09-20] MEDS: PANTOprazole SOD 40 MG TAB PO SCH (08:41)
[2017-09-20] MEDS: OMEGA-3 (PURIFIED FISH OIL) 1 GM CAP PO SCH ×2 (08:41→21:53)
[2017-09-20] MEDS: LOSARTAN POTASSIUM 25 MG TAB PO SCH (08:41)
[2017-09-20] MEDS: TOCOPHERYL, DL-ALPHA 400 INTER.UNIT CAP PO SCH (08:41)
--- NOTE | 2017-09-20 11:49 | Psychiatric Progress Notes ---
Progress Note Date of Service September 20, 2017. Interval History 67-year-old woman readmitted voluntarily for psychotic stefan 3 days after last hospitalization. She has had a complicated course, daily multiple medication trials, and with overlying delirium. Chief Complaint "Stressful.". Subjective Patient was seen & assessed interval progress reviewed with Treatment Team. The patient has submitted her 72 hr notice to withdraw from treatment, saying that she wants to go home. I ask about her behavior yesterday when she was pulling at the curtains, and she says that the light was bothering her eyes and she wanted them down, and says that she wasn't being destructive. When asked about her mood she says "stressful". When asked about hallucinations, she says "I don't know". when asked about sleep she says that she "got a little" but nursing reports that she got no more than 3 hrs. We talk at length about her 72 hour notice, and I recommend that she remain in the hospital, that I don't think that Alex can care for her at home if she isn't sleeping, then she says that she will get her own apartment and then rambles on describing a 2 bedroom apartment. At times she indicates that she will revoke, but at others focuses only on getting her own apartment. During the discussion, which included writing some questions, she is easily distracted and does not consistently appear to be able to hear me talking, yet says that she does. Review of Systems Constitutional: No fever, No chills, No sweats, No weight loss, No weakness, No fatigue, No problem reported ENT: + hearing loss Respiratory: No cough, No sputum, No wheezing, No shortness of breath, No dyspnea on exertion, No dyspnea at rest, No hemoptysis, No problem reported Cardiovascular: No chest pain, No orthopnea, No PND, No edema, No claudication , No palpitations, No problem reported Abdomen: No pain, No nausea, No vomiting, No diarrhea, No constipation, No GI bleeding, No problem reported Musculoskeletal: No joint pain, No muscle pain, No swelling, No calf pain, No problem reported Neurologic: No memory loss, No paralysis, No weakness, No numbness/tingling, No vertigo, No balance problems, No problem reported Psychiatric: + problem reported (distracted, wanting to go home) Integumentary: No rash, No itch, No new/changing skin lesions, No color change , No bleeding, No problem reported Sleep Information Total Hours of Sleep: 3.00 Meal Information Percent of Breakfast Consumed: 70 Percent of Lunch Consumed: 95 Percent of Dinner Consumed: 100 Mental Status Exam During interview pt is: alert and oriented, uncooperative (distracted) Appearance: appropriately dressed, appropriately groomed Eye contact is: fair Motor behavior is: no abnormal motor movements Speech: other (Excessive speech, mumbling incoherently at times) Affect: irritable Mood is: irritable Thought process: tangential, other (At times answers questions appropriately, other times mumbles incoherently.) Thought content: reality based without delusions Suicidal thought are: denied Homicidal thoughts are: denied Hallucinations: denies auditory, denies visual Cognition: other (easily distracted) Insight: severely impaired Judgement: severely impaired Medication Trials lithium - renal failure risperidone thiothixene quetiapine haloperidol Vraylar - ineffective after 12 days chlorpromazine perphenazine Depakote Artane - questionably effective for akathisia benztropine clonazepam lorazepam clozapine - listed as allergy ECT - ineffective per boyfriend sertraline zolpidem gabapentin propranolol Impression The patient continues to ramble, and has impulsive behaviors requiring 1:1. Her 72 hr notice is still in, but gave me indications today that she might revoke. If she does not revoke will need to apply for a 302 as she is still not sleeping, cannot manipulate information in a reality based manner and remains a risk to herself. Alex will visit tomorrow and we will enlist his support in getting her to see the ongoing need for treatment. Plan (1) Bipolar 1 disorder with mixed features 08/11 - Increase Klonopin back to 1.5 mg HS to target sleep - Will DC lithium at this point due to concerns for her age and renal status - Will increase Risperdal to 1 mg. AM and 7 mg HS - Will DC navane to reduce polypharmacy - Continue prn haldol and increase to q 4 hr prn - Will have nursing attempt to preauth Vraylar to trial - DC Zoloft - Q 15 min checks for safety - Encourage participation in group and individual counseling as tolerated - Coordinate with current providers - had FLP and FBS on 07/23/17. All WNL with the exception of triglycerides of 151 and FBS 129 08/12 - Vraylar trial when Alex can bring it in - Start 1.5 mg daily increasing to 3 mg daily the following day. - Will taper risperdal at the same time 08/13 -Vraylar was actually started at 3mg hs on 08/12 since only 3mg capsules for supply. given s/e profile will move vraylar to earlier in day, will maintain pt at 3mg for time being given long half life of med and long half life of active metabolite tapering risperdal maintained at 1mg am and 3mg hs for now since just lowered by 4mg continue prn haldol doses 08/14 -maintained vraylar 3mg qday -maintained risperdal 1mg am and 3mg hs for now, aim to wean risperdal further as adjusting to vraylar over next days 08/15 - Continue Vraylar 3mg daily - Plan to continue to taper risperdal, however patient appears to be displaying more restlessness today in regard to manic behaviors and requiring redirection from staff and prn Haldol more frequently. - Attempt to determine proximity to baseline with visits from her fiance 08/16 - Vraylar increased to 6mg daily 08/17 - Discontinue risperidone due to inefficacy, and increase Haldol prn to 10mg. - Resume trihexphenidyl at 1mg daily and monitor restlessness as able. Challenging to know if her agitation is due to akathisia, anxiety, psychosis, or stefan, and she is a limited historian. 08/18 - DC haldol due to no response - Start Thorazine 25 mg. q 2 hr prn during the day and 100 mg. scheduled at HS 08/19 - Increase thorazine to 50 q 3 hr prn and 200 mg. HS - Try to maintain good sleep wake cycles - EKG today 08/20 - 150mg of [place] to be added this evening to stabilize mood in interim of response to Vraylar, level in 5 days to monitor for possible toxicity. - Increase Klonopin to 2.5mg qHS to better target sleep. Pt remains on 1-to- 1 observation currently, continue safety precautions for fall risk with medication changes - Encourage sleep as able, with target to keep patient in appropriate sleep- wake cycle. Daytime naps are limited in length. 08/21 - Li restarted yesterday which is not expected to demonstrate a quick benefit but in deference to long standing treatment and increased risk for ongoing mood instability off the medication. given renal impairment, she will need more frequent monitoring but the potential benefit is felt to outweigh the risk given the severity of her underlying mental health d/o. I would suggest maintaining this very low dose and checking a level on the (which I ordered today) before further titration. - sleeping more in last 24h getting high dose Thorazine which, unfortunately , may also be making her delirious. I am uncertain if she has been treated with high dose seroquel previously but that could be considered as an alternative if she struggles to tolerate the Thorazine moving forward. - will increase melatonin to 9mg qhs for additional sleep benefit with minimal risk for worsening delirium. could also consider temporarily maximizing ambien at 10mg but will defer for today 2/2 delirium as sleep is presently improving which will hopefully show antimanic effect. 08/22 - Continue on Thorazine, Vraylar, [place], and Klonopin. [place] level ordered for 08/25. - Will attempt to develop plan to decrease low-dose polypharmacy; Pt's significant other hesitant for other medication changes and is unwilling for ECT at this time - Continue delirium protocol with encouraging appropriate sleep/wake cycles 08/23 -Continue environmental and behavioral interventions for delirium, reviewed her medications and attempting to eliminate unnecessary medications ( cholestyramine discontinued as she was refusing it and not acutely important). -Try to consolidate sleep at night; continue melatonin 9 mg, clonazepam 2.5 mg, zolpidem 5 mg, and chlorpromazine 200 mg at bedtime. -Continue Vraylar 6 mg every morning (started 08/12/2017). -Continue trihexyphenidyl 1 mg every morning for akathisia. -[place] 150 mg at bedtime restarted 08/20/2017; level and BMP ordered for . 08/24 1. DC Vraylar- Has not shown any improvement since added 2. DC Thorazine- No significant improvement and contributing to anticholinergic load 3. DC Artane- Difficult to tell whether she is restless or whether restlessness is due to stefan, and concern for anticholinergic load 4. DC Ambien- Can contribute to confusion, especially in women 5. DC Vistaril- due to concerns for anticholinergic load 6. Retrial Depakote ER 500 mg. HS titrated to therapeutic level. Has been on this in the past but reports from pt and Alex provide different memories of it. 7. Trial Zyprexa- Will start low with 5 mg due to long half life of Vraylar , to target stefan 8. Continue lithium low dose, re-added due to concerns that withdrawing it after she has been on it for years has contributed to deterioration. Caution to renal status 9. Continue Klonopin 10. Continue Tramadol prn, but have encouraged nursing to use it only sparingly. 08/25 -Increase olanzapine to 7.5mg HS and prn to 5mg. -[place] trough 0.3; creatinine and BUN up slightly at 30 and 1.77. Continue to encourage adequate hydration, and will recheck lithium trough and BMP in 4 days. -Continue Depakote 500 mg nightly, and check a Depakote trough on 08/29/2017. -Consideration for ECT stefan, psychosis, and delirium do not improve. 08/26 -Increase HS zyprexa to 10 mg. continue prn's - Continue to encourage hydration - Continue depakote with level 08/29 - Will obtain CBC and UA to rule out UTI, dyscrasia - Continue to consider ECT if no improvement 08/27 --continue Zyprexa titration to 15 mg po qhs, d/c prn doses as no apparently benefit; given longstanding rx with a typical antipsychotic (Navane) and some response to Haldol prn, trial of Trilafon prn agitation. --restlessness appears to be related to catatonia in my opinion rather than akathisia. That said, will offer prn beta brad as trial for comfort, BP has been elevated anyway, would prefer to implement this rather than increasing Cozaar acutely --no clear benefit from hs clonazepam and treatment of choice for catatonia is lorazepam so taper Klonopin in favor of Ativan TID + prn. Remains on 1-on-1 for falls precautions. 08/28 --continue Zyprexa titration to 20 mg po qhs --may use propranolol TID prn --replace HS Klonopin with 2 mg Ativan as appears more effective 08/29 - Continue Zyprexa 20mg qHS, propranolol TID prn, Ativan 2mg qHS, and prn Trilafon - Recent labs reviewed: Li level = 0.4; Depakote level = 27 - BUN elevated at 36, creatinine elevated at 1.88. GFR = 27.5. - Due to progressive worsening of kidney function and apparent improvement with addition of other agents, will discontinue [place] at this time. - Increase Depakote to 750mg tonight. Depakote trough level ordered for 2017. 08/30 - Continue current meds with the exception of stopping AM ativan due to sedation, and concerns for fall risk 08/31 -Continue current medications, including Lorazepam 1 mg q. 1200 and 1700 hrs. and 2 mg at bedtime, Depakote 750 mg nightly, olanzapine 20 mg nightly, propanolol 20 mg 3 times daily as needed for restlessness, perphenazine 4 mg as needed for agitation, and melatonin 9 mg at bedtime. -Continue one-to-one monitoring. 09/01 - Continue current meds and plan including 1:1 09/02 - Add Trilafon 4 mg. TID 09/03 - increase trilafon to and pending VPA level and BMP on 09/04, will add CBC due to BRBPR yesterday due to hemrrhoids, and TSH (see below). will watch her sedation and if sedated will lower ativan 09/04/17 - patient is not showing tangible gains from this provider's review of chart and observation over last 2 days. Nursing staff felt she was less pervasively agitated on 09/03, and but she seems to continue to demonstrate pattern of delirium (waxing and waning mental state with fragmented sleep, hallucinations and waking in anxious state disoriented, labile) The inpatient team has done a heroic job of caring for this woman who has very complicated and refractory primary mental health condition and what appears to be superimposed delirium her prognosis is poor. She did best on lithium as a component of her treatment to date. Review of record is that patient's kidney function (creatinine and BUN) worsened on lithium earlier this month, but at 150mg/hs for 7days she had two of her best days inpatient on 08/29 (date of discontinuation), and 08/30 (day after discontinuation) even though her level was only 0.4 on 08/29. I will discuss with primary team as there are very serious risks of returning to lithium. - it is not clear if remeron provided an improvement for patient last night, or it was the last of a series of several sedating medications. Although it is optimal in delirium to keep up in the day and sleep at night, given she is only getting 1-4hours/night it is hard to justify waking her only for her to be agitated in the day today. Will discuss with staff and attempt to keep her up to a degree possible with light cues and stimulus in the day and lower stimulus at night - continue trilafon for now scheduled with PRN, she did require less in the last 24hours than the preceding day but it remains to be see if that is improvement - increase Depakote from 750 (level 57, free level pending) to 1000mg tonight repeat level ordered for 09/09/17 AM - she is anemic, stably so compared to 07/2017, but will draw ferritin, transferin and transferrin Saturation and TIBC to r/o iron deficiency as contributing to RLS as she is anemic, would replete with oral iron if this returns low, will discus with primary team as vitamin E may impair the response for her iron deficiency anemia - consider MVI in place of vitamin E (as not to over- dose with time) - avoid anticholinergics - she remains on benzodiazepines at this time (combination of scheduled and prns getting 5-6mg/day in the last 2 days), and although there was prior speculation of agitated catatonia in the chart it is not clear to me that the current prn doses are meaningfully helpful and can worsen delirium. Will maintain scheduled ativan 1mg 12, 1mg 1700 and 2mg/hs but stop the prn doses, and prefer trilafon prn psychosis/agitation - will not write for standing dose of remeron but if staff call again this evening after scheduled medications and patient is not sleeping would consider again giving 7.5mg remeron with caution monitoring for oversedation and future mood elevation, and watch RLS - will ask staff to get a clock drawing for goal of serial clock drawings overtime can assist in tracking delirium recovery 09/05 -Continue Depakote 1000 mg nightly, with a repeat trough level on 09/09/2017. -Continue olanzapine 20 mg nightly, perphenazine 4 mg twice daily and 8 mg nightly, and decrease Lorazepam to 1 mg q. 1700 and 2 mg nightly (discontinuing the 1 mg dose at noon). Continue perphenazine and propranolol as needed's. 09/06 - AM sedation, but poor sleep at night. Shift trilafon to 4 mg. at 1400 and 12 mg. HS 09/07 -Continue current medications and one-to-one supervision, private room, and fall precautions. 09/08 - Continue current plan and meds. 09/09 - Continue current medications - Depakote level this morning = 68 09/10 - Irritable and impulsive on Depakote. Will taper to 500 mg. HS and start trial of Neurontin 100 mg. TID titrating as tolerated. - Will need to monitor renal functions over time 09/11 - Increase Neurontin to 200 mg. TID 09/12 -Continue current medications. Multiple medication changes made over the weekend, and we need to give this time to work. She reports an allergy to clozapine, and is unable to consent to ECT and her current condition. In addition, her boyfriend has stated that he does not think she responded well to ECT in the past, and has not been supportive of it. Additionally, she does not have the resources to continue with outpatient ECT after the initial inpatient course, so it is not a viable option at this time. -Order repeat BMP for tomorrow, to monitor kidney function. -She remains on one-to-one, although staff reports some of her behavioral issues appear volitional. Will ask the one-to-one staff to try watching her from a distance, to see if she is able to tolerate less direct oversight. 09/13 -DC depakote - Increase Neurontin to 200-200-600 mg 09/14 - 09/15 -continue current meds and plan. 09/16 - Neurontin increased to [id number] - Continue other medications as directed. 09/17 -continue current medications. Monitor gait, as she is unsteady today. 09/18 -continue current medications and plan. Patient has had a prolonged hospital course, has failed multiple medication trials, and her symptoms have been very challenging to treat due to her medical comorbidities and lack of robust response, as well as complicating delirium. We are attempting to limit medications that could worsen her overall condition, but that also treat her mental health symptoms. 09/19 - 72-hour notice signed and submitted to staff - expires 09/22 @ 0700. - Continue current medications and treatment plan 09/20 - 72 hour notice still in. Will enlist Alex's support in revoking if possible. If not will consider a 302. (2) Chronic kidney disease (CKD) 08/11 - DC lithium. Will attempt to stabilize mood with atypicals - Collaborate with Dr. Ovalles as needed 08/20 - Restart [place] at 150mg qHS in attempt to stabilize mood and target manic behaviors. Ideally would be used in the short-term until response to Vraylar is more evident; however, patient is known to have responded well in the past. 08/21 - increase losartan to 50mg for persistently elevated BP's 08/23 -Low-dose lithium resumed 08/20/2017 due to acute worsening of psychiatric symptoms thought possibly due to discontinuation of lithium after being on it for many years. [place] trough and BMP ordered for 08/25/2017. 08/25 -[place] trough level 0.3, BUN 30, creatinine 1.77. These are up slightly from 08/10/2017, 1 BUN was 23 and creatinine 1.46. We will continue to monitor closely, ensure adequate hydration, and recheck in 4 days. If kidney function worsens, we will need to discontinue the lithium, as previously discussed with nephrology (Dr. Foreman on 07/25/2017). 08/29 - Labs reviewed: Li level = 0.4. BUN and Cr elevated at 36 and 1.88 respectively. GFR as outpatient progressively decreasing from 43.6 to 38.3. Most recent GFR = 27.5 - Will d/c [place] in favor of Depakote titration 08/31 -Will recheck BMP on 09/04/2017 to monitor kidney function. Continue to encourage fluids. 09/04 - Cr 1.48 and BUN 23, continue to encourage fluids (3) Hypothyroidism 08/11 - TSH WNL and not on levothyroxine. - May have had abnl values in the past related to being on lithium 08/26 - BP elevated. Will increase Cozaar to 75 mg. daily - VS BID 09/03/17 - will add TSH to labs for tomorrow given exopthalamos, h/o hypothyroid and not on levothyroxine 09/04 TSH WNL (4) Hyperlipemia 08/11 - Continue home dose of atorvastatin - FLP done 07/24 08/23 -Patient intermittently refusing cholestyramine; discontinue for now as also on atorvastatin and trying to limit polypharmacy. (5) Hypertension 08/31 -has been persistently hypertensive for the past several days, and intermittently hypertensive throughout her stay. No known history of hypertension, and EKG on 08/19/2017 was normal sinus rhythm. Consider need for hospitalist assistance if hypertension persists. 09/03 - normotensive this AM was hypertensive last evening but may also correlate with values taken at time of agitation, will monitor closely, Temp is not elevated and will check WBC tomorrow, do not think this is related to malignant catatonia at this time 09/04 - BP varies high in the evening and lower in the day, continue to monitor closely 09/07 - Was normotensive for 2 days, and yesterday evening had elevated blood pressure, but again normal this morning. Continue to monitor. Discharge / Aftercare Planning Primary Care Physician: Name: Santos JACKSON [facility] Appointment Notes: [facility] [place] [address] Psychiatrist: Name: Dr. Hahn, [facility] Appointment Notes: [address] [place] [id number] Therapist: Name: Katerina Valerio [facility] Appointment Notes: [address] [place] [id number] Certified Nursing Assistant Instructor: Name: Zulay Macias [facility]: Home Health Services: social services director, home health agency Home Health Agency: [facility] Specialist: Name: Dr. Demarcus Ovalles, [facility] [place] Phone Number: [phone] Date of Appointment: Oct 21, 2017 Time of Appointment: 1:15pm Visit Code E&M Code: 95215 Inventory Assets Strengths: Support from partner, good relationship with outpatient provider Needs: Clarity with her medications Risk Factors Assessment : Yes /single/: No Higher / Fall in social status: No Access to guns: No Health problems: Yes Mental Health Diagnoses: Yes Substance use disorders: No Previous attempt: Yes Family history of suicide: Yes Previous psychiatric stay: Yes Hopelessness: No Smoker: No Protective Factors Assessment : No Responsible for young children: No Employed: No Stable relationships: Yes Supportive family: Yes Good rapport with provider: Yes Data Vital Signs Last 24 Hrs: Date Time Temp Pulse Resp B/P (MAP) Pulse Ox O2 Delivery O2 Flow Rate FiO2 09/20/17 08:16 36.4 76 18 144/77 (99) 75 129/82 (98) 09/19/17 21:38 80 112/68 (83) 09/19/17 14:52 36.8 86 18 124/70 (88) Room Air Meds Administered Last 24 Hrs: Current Inpatient Medications Medications (Trade) Dose Ordered Sig/Kelsey Route Start Time Stop Time Status Last Admin Dose Admin Acetaminophen (Tylenol Tab) 650 mg Q4H PRN PO 08/10/17 20:00 10/09/17 19:58 09/20/17 00:33 650 MG Al Hydroxide/Mg Hydroxide (Maalox Susp) 30 ml Q4H PRN PO 08/10/17 20:00 10/09/17 19:58 08/30/17 11:57 30 ML Bismuth Subsalicylate (Kaopectate Liqd) 15 ml DAILY PRN PO 08/10/17 20:00 10/09/17 19:58 Magnesium Hydroxide (Milk Of Magnesia Susp) 30 ml DAILY PRN PO 08/10/17 20:00 10/09/17 19:58 09/17/17 23:34 30 ML Sodium Chloride (Gooding Nasal [place]) PRN PRN NA 08/10/17 20:00 10/09/17 19:58 09/13/17 12:09 1 SPRAYS Atorvastatin Calcium (Lipitor Tab) 10 mg HS PO 08/10/17 22:00 10/09/17 21:58 09/19/17 20:44 10 MG Fish Oil (Serena-3 (Purified Fish Oil) Cap) 1 gm BID PO 08/10/17 22:00 10/09/17 21:58 09/20/17 08:41 1 GM Multivitamins/ Minerals (Multivitamin W/ Minerals Tab) 1 tab QAM PO 08/11/17 09:00 10/10/17 08:58 09/20/17 08:41 1 TAB Montelukast Sodium (Singulair Tab) 10 mg QAM PO 08/11/17 09:00 10/10/17 08:58 09/20/17 08:41 10 MG Pantoprazole Sodium (Protonix Tab) 40 mg QAM PO 08/11/17 09:00 10/10/17 08:58 09/20/17 08:41 40 MG Tramadol HCl (Ultram Tab) 50 mg Q6H PRN PO 08/10/17 20:15 10/09/17 20:13 09/16/17 20:06 50 MG dn-Qqjik-Ubdbihyxbp Acetate (Vitamin E Cap) 400 interunit DAILY PO 08/11/17 09:00 10/10/17 08:58 09/20/17 08:41 400 INTERUNIT Melatonin (Melatonex) 9 mg HS PO 08/25/17 22:00 09/24/17 21:59 09/19/17 20:45 9 MG Perphenazine (Trilafon Tab) 4 mg Q6 PRN PO 08/27/17 08:30 09/26/17 08:29 09/20/17 00:22 4 MG Olanzapine (Zyprexa Tab) 20 mg HS PO 08/28/17 22:00 09/23/17 21:59 09/19/17 20:48 20 MG Propranolol HCl (Inderal Tab) 20 mg TID PRN PO 08/28/17 09:45 09/26/17 08:29 09/17/17 19:50 20 MG Lorazepam (Ativan Tab) 2 mg HS PO 08/28/17 22:00 09/27/17 21:59 09/19/17 20:50 2 MG Losartan Potassium (coZAAR TAB) 75 mg QAM PO 09/02/17 09:00 10/02/17 08:59 09/20/17 08:41 75 MG Lorazepam (Ativan Tab) 1 mg DAILY@1700 PO 09/05/17 17:00 09/29/17 16:59 09/19/17 17:17 1 MG Perphenazine (Trilafon Tab) 4 mg DAILY@1400 PO 09/06/17 14:00 10/06/17 13:59 09/19/17 14:24 4 MG Perphenazine (Trilafon Tab) 12 mg HS PO 09/06/17 22:00 10/06/17 21:59 09/19/17 20:47 12 MG Benzocaine (Orajel 20% Oral Gel) 1 appln BID PRN MT 09/06/17 12:45 10/06/17 12:44 09/16/17 03:46 1 APPLN Gabapentin (Neurontin Cap) 400 mg BID@0900,1400 PO 09/16/17 14:00 10/13/17 13:59 09/20/17 08:41 400 MG Gabapentin (Neurontin Tab) 800 mg HS PO 09/16/17 22:00 10/13/17 21:59 09/19/17 20:45 800 MG Lab Results Last 24 Hrs: 09/04/17 09:09 Red Blood Count 3.43, Mean Corpuscular Volume 89.2, Mean Corpuscular Hemoglobin 29.2, Mean Corpuscular Hemoglobin Concent 32.7, Mean Platelet Volume 9.6, Neutrophils (%) (Auto) 69.8, Lymphocytes (%) (Auto) 18.6, Monocytes (%) (Auto) 8.7, Eosinophils (%) (Auto) 1.5, Basophils (%) (Auto) 0.2, Neutrophils # (Auto) 2.81, Lymphocytes # (Auto) 0.75, Monocytes # (Auto) 0.35, Eosinophils # (Auto) 0.06, Basophils # (Auto) 0.01 09/13/17 06:58 Test 08/10/17 12:35 08/10/17 12:56 08/26/17 00:00 08/29/17 09:07 Urine Opiates Screen NEG (NEG) Urine Methadone, Qualitative NEG (NEG) Urine Barbiturates NEG (NEG) Urine Phencyclidine (PCP) Level NEG (NEG) Ur Amphetamine/Methamphetamine NEG (NEG) MDMA (Ecstasy) Screen NEG (NEG) Urine Benzodiazepines Screen NEG (NEG) Urine Cocaine Metabolite NEG (NEG) Urine Marijuana (THC) NEG (NEG) Total Bilirubin 0.3 mg/dl (0.2-1) Aspartate Amino Transf (AST/SGOT) 22 U/L (15-37) Alanine Aminotransferase (ALT/SGPT) 49 U/L (12-78) Alkaline Phosphatase 130 U/L (45-117) Total Protein 7.2 gm/dl (6.4-8.2) Albumin 3.4 gm/dl (3.4-5.0) Globulin 3.8 gm/dl (2.5-4.0) Albumin/Globulin Ratio 0.9 (0.9-2) Salicylates Level < 1.7 mg/dl (2.8-20) Acetaminophen Level < 2 ug/ml (10-30) Ethyl Alcohol mg/dL < 3.0 mg/dl (0-3) Urine Color YELLOW Urine Appearance CLEAR (CLEAR) Urine pH 6.0 (4.5-7.5) Urine Specific [place] 1.009 (1.000-1.030) Urine Protein 1+ (NEG) Urine Glucose (UA) NEG (NEG) Urine Ketones NEG (NEG) Urine Occult Blood NEG (NEG) Urine Nitrite NEG (NEG) Urine Bilirubin NEG (NEG) Urine Urobilinogen NEG (NEG) Urine Leukocyte Esterase MODERATE (NEG) Urine WBC (Auto) 1-5 /hpf (0-5) Urine RBC (Auto) 0-4 /hpf (0-4) Urine Hyaline Casts (Auto) 0 /lpf (0-5) Urine Epithelial Cells (Auto) 5-10 /lpf (0-5) Urine Bacteria (Auto) NEG (NEG) [place] Level 0.4 mMOL/L (0.6-1.2) Test 09/04/17 09:09 09/09/17 09:20 09/13/17 06:58 White Blood Count 4.03 K/uL (4.8-10.8) Red Blood Count 3.43 M/uL (4.2-5.4) Hemoglobin 10.0 g/dL (12.0-16.0) Hematocrit 30.6 % (37-47) Mean Corpuscular Volume 89.2 fL (80-100) Mean Corpuscular Hemoglobin 29.2 pg (25-34) Mean Corpuscular Hemoglobin Concent 32.7 g/dl (32-36) Platelet Count 171 K/uL (130-400) Mean Platelet Volume 9.6 fL (7.4-10.4) Neutrophils (%) (Auto) 69.8 % Lymphocytes (%) (Auto) 18.6 % Monocytes (%) (Auto) 8.7 % Eosinophils (%) (Auto) 1.5 % Basophils (%) (Auto) 0.2 % Neutrophils # (Auto) 2.81 K/uL (1.4-6.5) Lymphocytes # (Auto) 0.75 K/uL (1.2-3.4) Monocytes # (Auto) 0.35 K/uL (0.11-0.59) Eosinophils # (Auto) 0.06 K/uL (0-0.5) Basophils # (Auto) 0.01 K/uL (0-0.2) RDW Standard Deviation 46.9 fL (36.4-46.3) RDW Coefficient of Variation 14.3 % (11.5-14.5) Immature Granulocyte % (Auto) 1.2 % Immature Granulocyte # (Auto) 0.05 K/uL (0.00-0.02) Miscellaneous Test REPORT Iron Level 64 mcg/dl (35-150) Total Iron Binding Capacity 304 mcg/dl (250-450) Transferrin 261 mg/dl (200-360) Transferrin % Saturation 17 % (15-50) Ferritin 156.5 ng/ml (8.0-388.0) Thyroid Stimulating Hormone (TSH) 1.710 uIu/ml (0.300-4.500) Valproic Acid (Depakene) Level 68 mcg/ml (50-100) Anion Gap 5.0 mmol/L (3-11) Est Creatinine Clear Calc Drug Dose 32.2 ml/min Estimated GFR () 45.2 Estimated GFR (Non- 39.0 BUN/Creatinine Ratio 19.3 (10-20) Calcium Level 8.9 mg/dl (8.5-10.1) Chemistry Specimen Hemolysis Date/Time Source Procedure Growth Status 08/26/17 00:00 Urine , Clean Catch Urine Culture - Final MORE THAN THREE TYPES OF ORGANISMS MO... Complete Problem Qualifiers (1) Chronic kidney disease (CKD): Chronic kidney disease stage: stage 1 Qualified Codes: N18.1 - Chronic kidney disease, stage 1
[2017-09-20] MEDS: PERPHENAZINE 2 MG TAB PO SCH ×2 (13:44→21:53)
[2017-09-20 14:41] VITALS: BP 126/84; PULSE 82; TEMP 36.9
[2017-09-20] MEDS: LORAZEPAM 1 MG TAB PO SCH (16:54)
[2017-09-20 21:52] VITALS: BP 147/83; PULSE 80; TEMP 36.7; O2SAT 97
[2017-09-20] MEDS: LORAZEPAM 2 MG TAB PO SCH (21:53)
[2017-09-20] MEDS: OLANZAPINE 20 MG TAB PO SCH (21:53)
[2017-09-20] MEDS: GABAPENTIN 800 MG TAB PO SCH (21:53)
[2017-09-20] MEDS: ATORVASTATIN 10 MG TAB PO SCH (21:53)
[2017-09-20] MEDS: MELATONIN 3 MG PO SCH (21:59)
[2017-09-21] MEDS: PERPHENAZINE 2 MG TAB PO PRN ×2 (02:59→17:36)
[2017-09-21] MEDS: TRAMADOL HCL 50 MG TAB PO PRN ×2 (03:06→18:47)
[2017-09-21 07:57] VITALS: BP_SYST 130; BP_SYST 147; BP_DIAS 69; BP_DIAS 75; PULSE 89; TEMP 36.6; O2SAT 98
[2017-09-21] MEDS: CEROVITE ADV FORMULA TAB PO SCH (08:02)
[2017-09-21] MEDS: LOSARTAN POTASSIUM 25 MG TAB PO SCH (08:02)
[2017-09-21] MEDS: GABAPENTIN 400 MG CAP PO SCH ×2 (08:02→13:47)
[2017-09-21] MEDS: TOCOPHERYL, DL-ALPHA 400 INTER.UNIT CAP PO SCH (08:03)
[2017-09-21] MEDS: OMEGA-3 (PURIFIED FISH OIL) 1 GM CAP PO SCH ×2 (08:03→20:51)
[2017-09-21] MEDS: PANTOprazole SOD 40 MG TAB PO SCH (08:03)
[2017-09-21] MEDS: MONTELUKAST SOD 10 MG TAB PO SCH (08:03)
[2017-09-21] MEDS: ACETAMINOPHEN 325 MG TAB PO PRN ×2 (08:10→22:31)
--- NOTE | 2017-09-21 08:10 | Psychiatric Progress Notes ---
Progress Note Date of Service September 21, 2017. Interval History 67-year-old woman readmitted voluntarily for psychotic stefan 3 days after last hospitalization. She has had a complicated course, daily multiple medication trials, and with overlying delirium. Chief Complaint "I do not know ...". Subjective Patient was seen & assessed interval progress reviewed with Treatment Team. Staff report she continues to be nonsensical in her speech at times, is disruptive, and periodically agitated. She remains on one-to-one. She slept poorly overnight, was awakened agitated, screaming at times. She fell while trying to sit on her bed last night, missed and sent onto the floor, then rolled onto her side. No apparent injury and vital signs were normal. On my assessment today, she is doing a word search, and has covered the page with scribbles, and circled many letters that do not make words. She mumbles incoherently at times, but occasionally speech is clear. Mood is "I am sad because Mondays, Tuesday..." At one point she is talking about reincarnation, and dying and going to happen. Most of her answers are nonsensical. Sleep Information Total Hours of Sleep: 2.50 Meal Information Percent of Breakfast Consumed: 70 Percent of Lunch Consumed: 100 Percent of Dinner Consumed: 45 Mental Status Exam During interview pt is: alert and oriented, other (Cooperative, but a limited historian) Appearance: appropriately dressed, appropriately groomed Eye contact is: fair Motor behavior is: no abnormal motor movements Speech: other (Excessive speech, mumbling incoherently at times) Affect: labile, irritable Mood is: other ("I am sad because Mondays, Tuesdays") Thought process: tangential, looseness of associations, other (At times answers questions appropriately, other times mumbles incoherently.) Thought content: reality based without delusions Suicidal thought are: denied Homicidal thoughts are: denied Hallucinations: denies auditory, denies visual Cognition: other (Impaired) Insight: severely impaired Judgement: severely impaired Medication Trials lithium - renal failure risperidone thiothixene quetiapine haloperidol Vraylar - ineffective after 12 days chlorpromazine perphenazine Depakote Artane - questionably effective for akathisia benztropine clonazepam lorazepam clozapine - listed as allergy ECT - ineffective per boyfriend sertraline zolpidem gabapentin propranolol Impression The patient continues to be disorganized and impulsive, requiring one-to-one. She had submitted a 72 hr notice, but rescinded that yesterday. We will file for a 304 commitment, as she is still not sleeping, is disorganized and impulsive, has asked to leave at times, cannot manipulate information in a reality based manner and remains a risk to herself. [facility], and they have indicated that they be willing to accept her on a 304 commitment, so we will file for that today. Her boyfriend Alex has been updated by staff on the treatment plan. Plan (1) Bipolar 1 disorder with mixed features 08/11 - Increase Klonopin back to 1.5 mg HS to target sleep - Will DC lithium at this point due to concerns for her age and renal status - Will increase Risperdal to 1 mg. AM and 7 mg HS - Will DC navane to reduce polypharmacy - Continue prn haldol and increase to q 4 hr prn - Will have nursing attempt to preauth Vraylar to trial - DC Zoloft - Q 15 min checks for safety - Encourage participation in group and individual counseling as tolerated - Coordinate with current providers - had FLP and FBS on 07/23/17. All WNL with the exception of triglycerides of 151 and FBS 129 08/12 - Vraylar trial when Alex can bring it in - Start 1.5 mg daily increasing to 3 mg daily the following day. - Will taper risperdal at the same time 08/13 -Vraylar was actually started at 3mg hs on 08/12 since only 3mg capsules for supply. given s/e profile will move vraylar to earlier in day, will maintain pt at 3mg for time being given long half life of med and long half life of active metabolite tapering risperdal maintained at 1mg am and 3mg hs for now since just lowered by 4mg continue prn haldol doses 08/14 -maintained vraylar 3mg qday -maintained risperdal 1mg am and 3mg hs for now, aim to wean risperdal further as adjusting to vraylar over next days 08/15 - Continue Vraylar 3mg daily - Plan to continue to taper risperdal, however patient appears to be displaying more restlessness today in regard to manic behaviors and requiring redirection from staff and prn Haldol more frequently. - Attempt to determine proximity to baseline with visits from her fiance 08/16 - Vraylar increased to 6mg daily 08/17 - Discontinue risperidone due to inefficacy, and increase Haldol prn to 10mg. - Resume trihexphenidyl at 1mg daily and monitor restlessness as able. Challenging to know if her agitation is due to akathisia, anxiety, psychosis, or stefan, and she is a limited historian. 08/18 - DC haldol due to no response - Start Thorazine 25 mg. q 2 hr prn during the day and 100 mg. scheduled at HS 08/19 - Increase thorazine to 50 q 3 hr prn and 200 mg. HS - Try to maintain good sleep wake cycles - EKG today 08/20 - 150mg of [place] to be added this evening to stabilize mood in interim of response to Vraylar, level in 5 days to monitor for possible toxicity. - Increase Klonopin to 2.5mg qHS to better target sleep. Pt remains on 1-to- 1 observation currently, continue safety precautions for fall risk with medication changes - Encourage sleep as able, with target to keep patient in appropriate sleep- wake cycle. Daytime naps are limited in length. 08/21 - Li restarted yesterday which is not expected to demonstrate a quick benefit but in deference to long standing treatment and increased risk for ongoing mood instability off the medication. given renal impairment, she will need more frequent monitoring but the potential benefit is felt to outweigh the risk given the severity of her underlying mental health d/o. I would suggest maintaining this very low dose and checking a level on the (which I ordered today) before further titration. - sleeping more in last 24h getting high dose Thorazine which, unfortunately , may also be making her delirious. I am uncertain if she has been treated with high dose seroquel previously but that could be considered as an alternative if she struggles to tolerate the Thorazine moving forward. - will increase melatonin to 9mg qhs for additional sleep benefit with minimal risk for worsening delirium. could also consider temporarily maximizing ambien at 10mg but will defer for today 2/2 delirium as sleep is presently improving which will hopefully show antimanic effect. 08/22 - Continue on Thorazine, Vraylar, [place], and Klonopin. [place] level ordered for 08/25. - Will attempt to develop plan to decrease low-dose polypharmacy; Pt's significant other hesitant for other medication changes and is unwilling for ECT at this time - Continue delirium protocol with encouraging appropriate sleep/wake cycles 08/23 -Continue environmental and behavioral interventions for delirium, reviewed her medications and attempting to eliminate unnecessary medications ( cholestyramine discontinued as she was refusing it and not acutely important). -Try to consolidate sleep at night; continue melatonin 9 mg, clonazepam 2.5 mg, zolpidem 5 mg, and chlorpromazine 200 mg at bedtime. -Continue Vraylar 6 mg every morning (started 08/12/2017). -Continue trihexyphenidyl 1 mg every morning for akathisia. -[place] 150 mg at bedtime restarted 08/20/2017; level and BMP ordered for . 08/24 1. DC Vraylar- Has not shown any improvement since added 2. DC Thorazine- No significant improvement and contributing to anticholinergic load 3. DC Artane- Difficult to tell whether she is restless or whether restlessness is due to stefan, and concern for anticholinergic load 4. DC Ambien- Can contribute to confusion, especially in women 5. DC Vistaril- due to concerns for anticholinergic load 6. Retrial Depakote ER 500 mg. HS titrated to therapeutic level. Has been on this in the past but reports from pt and Alex provide different memories of it. 7. Trial Zyprexa- Will start low with 5 mg due to long half life of Vraylar , to target stefan 8. Continue lithium low dose, re-added due to concerns that withdrawing it after she has been on it for years has contributed to deterioration. Caution to renal status 9. Continue Klonopin 10. Continue Tramadol prn, but have encouraged nursing to use it only sparingly. 08/25 -Increase olanzapine to 7.5mg HS and prn to 5mg. -[place] trough 0.3; creatinine and BUN up slightly at 30 and 1.77. Continue to encourage adequate hydration, and will recheck lithium trough and BMP in 4 days. -Continue Depakote 500 mg nightly, and check a Depakote trough on 08/29/2017. -Consideration for ECT stefan, psychosis, and delirium do not improve. 08/26 -Increase HS zyprexa to 10 mg. continue prn's - Continue to encourage hydration - Continue depakote with level 08/29 - Will obtain CBC and UA to rule out UTI, dyscrasia - Continue to consider ECT if no improvement 08/27 --continue Zyprexa titration to 15 mg po qhs, d/c prn doses as no apparently benefit; given longstanding rx with a typical antipsychotic (Navane) and some response to Haldol prn, trial of Trilafon prn agitation. --restlessness appears to be related to catatonia in my opinion rather than akathisia. That said, will offer prn beta brad as trial for comfort, BP has been elevated anyway, would prefer to implement this rather than increasing Cozaar acutely --no clear benefit from hs clonazepam and treatment of choice for catatonia is lorazepam so taper Klonopin in favor of Ativan TID + prn. Remains on 1-on-1 for falls precautions. 08/28 --continue Zyprexa titration to 20 mg po qhs --may use propranolol TID prn --replace HS Klonopin with 2 mg Ativan as appears more effective 08/29 - Continue Zyprexa 20mg qHS, propranolol TID prn, Ativan 2mg qHS, and prn Trilafon - Recent labs reviewed: Li level = 0.4; Depakote level = 27 - BUN elevated at 36, creatinine elevated at 1.88. GFR = 27.5. - Due to progressive worsening of kidney function and apparent improvement with addition of other agents, will discontinue [place] at this time. - Increase Depakote to 750mg tonight. Depakote trough level ordered for 2017. 08/30 - Continue current meds with the exception of stopping AM ativan due to sedation, and concerns for fall risk 08/31 -Continue current medications, including Lorazepam 1 mg q. 1200 and 1700 hrs. and 2 mg at bedtime, Depakote 750 mg nightly, olanzapine 20 mg nightly, propanolol 20 mg 3 times daily as needed for restlessness, perphenazine 4 mg as needed for agitation, and melatonin 9 mg at bedtime. -Continue one-to-one monitoring. 09/01 - Continue current meds and plan including 1:1 09/02 - Add Trilafon 4 mg. TID 09/03 - increase trilafon to and pending VPA level and BMP on 09/04, will add CBC due to BRBPR yesterday due to hemrrhoids, and TSH (see below). will watch her sedation and if sedated will lower ativan 09/04/17 - patient is not showing tangible gains from this provider's review of chart and observation over last 2 days. Nursing staff felt she was less pervasively agitated on 09/03, and but she seems to continue to demonstrate pattern of delirium (waxing and waning mental state with fragmented sleep, hallucinations and waking in anxious state disoriented, labile) The inpatient team has done a heroic job of caring for this woman who has very complicated and refractory primary mental health condition and what appears to be superimposed delirium her prognosis is poor. She did best on lithium as a component of her treatment to date. Review of record is that patient's kidney function (creatinine and BUN) worsened on lithium earlier this month, but at 150mg/hs for 7days she had two of her best days inpatient on 08/29 (date of discontinuation), and 08/30 (day after discontinuation) even though her level was only 0.4 on 08/29. I will discuss with primary team as there are very serious risks of returning to lithium. - it is not clear if remeron provided an improvement for patient last night, or it was the last of a series of several sedating medications. Although it is optimal in delirium to keep up in the day and sleep at night, given she is only getting 1-4hours/night it is hard to justify waking her only for her to be agitated in the day today. Will discuss with staff and attempt to keep her up to a degree possible with light cues and stimulus in the day and lower stimulus at night - continue trilafon for now scheduled with PRN, she did require less in the last 24hours than the preceding day but it remains to be see if that is improvement - increase Depakote from 750 (level 57, free level pending) to 1000mg tonight repeat level ordered for 09/09/17 AM - she is anemic, stably so compared to 07/2017, but will draw ferritin, transferin and transferrin Saturation and TIBC to r/o iron deficiency as contributing to RLS as she is anemic, would replete with oral iron if this returns low, will discus with primary team as vitamin E may impair the response for her iron deficiency anemia - consider MVI in place of vitamin E (as not to over- dose with time) - avoid anticholinergics - she remains on benzodiazepines at this time (combination of scheduled and prns getting 5-6mg/day in the last 2 days), and although there was prior speculation of agitated catatonia in the chart it is not clear to me that the current prn doses are meaningfully helpful and can worsen delirium. Will maintain scheduled ativan 1mg 12, 1mg 1700 and 2mg/hs but stop the prn doses, and prefer trilafon prn psychosis/agitation - will not write for standing dose of remeron but if staff call again this evening after scheduled medications and patient is not sleeping would consider again giving 7.5mg remeron with caution monitoring for oversedation and future mood elevation, and watch RLS - will ask staff to get a clock drawing for goal of serial clock drawings overtime can assist in tracking delirium recovery 09/05 -Continue Depakote 1000 mg nightly, with a repeat trough level on 09/09/2017. -Continue olanzapine 20 mg nightly, perphenazine 4 mg twice daily and 8 mg nightly, and decrease Lorazepam to 1 mg q. 1700 and 2 mg nightly (discontinuing the 1 mg dose at noon). Continue perphenazine and propranolol as needed's. 09/06 - AM sedation, but poor sleep at night. Shift trilafon to 4 mg. at 1400 and 12 mg. HS 09/07 -Continue current medications and one-to-one supervision, private room, and fall precautions. 09/08 - Continue current plan and meds. 09/09 - Continue current medications - Depakote level this morning = 68 09/10 - Irritable and impulsive on Depakote. Will taper to 500 mg. HS and start trial of Neurontin 100 mg. TID titrating as tolerated. - Will need to monitor renal functions over time 09/11 - Increase Neurontin to 200 mg. TID 09/12 -Continue current medications. Multiple medication changes made over the weekend, and we need to give this time to work. She reports an allergy to clozapine, and is unable to consent to ECT and her current condition. In addition, her boyfriend has stated that he does not think she responded well to ECT in the past, and has not been supportive of it. Additionally, she does not have the resources to continue with outpatient ECT after the initial inpatient course, so it is not a viable option at this time. -Order repeat BMP for tomorrow, to monitor kidney function. -She remains on one-to-one, although staff reports some of her behavioral issues appear volitional. Will ask the one-to-one staff to try watching her from a distance, to see if she is able to tolerate less direct oversight. 09/13 -DC depakote - Increase Neurontin to 200-200-600 mg 09/14 - 09/15 -continue current meds and plan. 09/16 - Neurontin increased to [phone] - Continue other medications as directed. 09/17 -continue current medications. Monitor gait, as she is unsteady today. 09/18 -continue current medications and plan. Patient has had a prolonged hospital course, has failed multiple medication trials, and her symptoms have been very challenging to treat due to her medical comorbidities and lack of robust response, as well as complicating delirium. We are attempting to limit medications that could worsen her overall condition, but that also treat her mental health symptoms. 09/19 - 72-hour notice signed and submitted to staff - expires 09/22 @ 0700. - Continue current medications and treatment plan 09/20 - 72 hour notice still in. Will enlist [facility]'s support in revoking if possible. If not will consider a 302. 09/21 -Patient rescinded her 72 hour notice. We will file for a 304 commitment, [facility]. (2) Chronic kidney disease (CKD) 08/11 - DC lithium. Will attempt to stabilize mood with atypicals - Collaborate with Dr. Ovalles as needed 08/20 - Restart [place] at 150mg qHS in attempt to stabilize mood and target manic behaviors. Ideally would be used in the short-term until response to Vraylar is more evident; however, patient is known to have responded well in the past. 08/21 - increase losartan to 50mg for persistently elevated BP's 08/23 -Low-dose lithium resumed 08/20/2017 due to acute worsening of psychiatric symptoms thought possibly due to discontinuation of lithium after being on it for many years. [place] trough and BMP ordered for 08/25/2017. 08/25 -[place] trough level 0.3, BUN 30, creatinine 1.77. These are up slightly from 08/10/2017, 1 BUN was 23 and creatinine 1.46. We will continue to monitor closely, ensure adequate hydration, and recheck in 4 days. If kidney function worsens, we will need to discontinue the lithium, as previously discussed with nephrology (Dr. Foreman on 07/25/2017). 08/29 - Labs reviewed: Li level = 0.4. BUN and Cr elevated at 36 and 1.88 respectively. GFR as outpatient progressively decreasing from 43.6 to 38.3. Most recent GFR = 27.5 - Will d/c [place] in favor of Depakote titration 08/31 -Will recheck BMP on 09/04/2017 to monitor kidney function. Continue to encourage fluids. 09/04 - Cr 1.48 and BUN 23, continue to encourage fluids (3) Hypothyroidism 08/11 - TSH WNL and not on levothyroxine. - May have had abnl values in the past related to being on lithium 08/26 - BP elevated. Will increase Cozaar to 75 mg. daily - VS BID 09/03/17 - will add TSH to labs for tomorrow given exopthalamos, h/o hypothyroid and not on levothyroxine 09/04 TSH WNL (4) Hyperlipemia 08/11 - Continue home dose of atorvastatin - FLP done 07/24 08/23 -Patient intermittently refusing cholestyramine; discontinue for now as also on atorvastatin and trying to limit polypharmacy. (5) Hypertension 08/31 -has been persistently hypertensive for the past several days, and intermittently hypertensive throughout her stay. No known history of hypertension, and EKG on 08/19/2017 was normal sinus rhythm. Consider need for hospitalist assistance if hypertension persists. 09/03 - normotensive this AM was hypertensive last evening but may also correlate with values taken at time of agitation, will monitor closely, Temp is not elevated and will check WBC tomorrow, do not think this is related to malignant catatonia at this time 09/04 - BP varies high in the evening and lower in the day, continue to monitor closely 09/07 - Was normotensive for 2 days, and yesterday evening had elevated blood pressure, but again normal this morning. Continue to monitor. Discharge / Aftercare Planning Primary Care Physician: Name: Santos JACKSON [facility] App[facility]ment Notes: [address] [place] [address] Psychiatrist: Name: Dr. Hahn, [facility] Psych Clinic Appointment Notes: [address] [place] [address], [place] [address] Therapist: Name: Katerina Valerio [facility] Appointment Notes: [address] [place] [address], [place] [address] Cardiac Cath Technologist: Name: Zulay Macias [facility]: Home Health Services: social work coordinator, home health agency Home Health Agency: [facility] Specialist: Name: Dr. Demarcus Ovalles, Communication Equipment Mechanic [facility] Phone Number: [phone] Date of Appointment: Oct 21, 2017 Time of Appointment: 1:15pm Visit Code E&M Code: 46738 Inventory Assets Strengths: Support from partner, good relationship with outpatient provider Needs: Clarity with her medications Risk Factors Assessment : Yes /single/: No Higher / Fall in social status: No Access to guns: No Health problems: Yes Mental Health Diagnoses: Yes Substance use disorders: No Previous attempt: Yes Family history of suicide: Yes Previous psychiatric stay: Yes Hopelessness: No Smoker: No Protective Factors Assessment : No Responsible for young children: No Employed: No Stable relationships: Yes Supportive family: Yes Good rapport with provider: Yes Data Vital Signs Last 24 Hrs: Date Time Temp Pulse Resp B/P (MAP) Pulse Ox O2 Delivery O2 Flow Rate FiO2 09/21/17 07:57 36.6 89 16 147/75 (99) 98 130/69 (89) 09/20/17 21:52 36.7 80 18 147/83 (104) 97 Room Air 09/20/17 14:41 36.9 82 18 126/84 (98) 09/20/17 08:16 36.4 76 18 144/77 (99) 75 129/82 (98) Problem Qualifiers (1) Chronic kidney disease (CKD): Chronic kidney disease stage: stage 1 Qualified Codes: N18.1 - Chronic kidney disease, stage 1
[2017-09-21] MEDS: PERPHENAZINE 2 MG TAB PO SCH ×2 (13:48→20:51)
[2017-09-21] MEDS: LORAZEPAM 1 MG TAB PO SCH (16:59)
[2017-09-21] MEDS: LORAZEPAM 2 MG TAB PO SCH (20:50)
[2017-09-21] MEDS: ATORVASTATIN 10 MG TAB PO SCH (20:50)
[2017-09-21] MEDS: MELATONIN 3 MG PO SCH (20:51)
[2017-09-21] MEDS: GABAPENTIN 800 MG TAB PO SCH (20:51)
[2017-09-21] MEDS: OLANZAPINE 20 MG TAB PO SCH (20:52)
[2017-09-21 21:23] VITALS: BP 126/89; PULSE 108
[2017-09-22] MEDS: GABAPENTIN 400 MG CAP PO SCH ×2 (07:39→13:28)
[2017-09-22] MEDS: CEROVITE ADV FORMULA TAB PO SCH (07:39)
[2017-09-22] MEDS: OMEGA-3 (PURIFIED FISH OIL) 1 GM CAP PO SCH ×2 (07:39→21:46)
[2017-09-22] MEDS: LOSARTAN POTASSIUM 25 MG TAB PO SCH (07:39)
[2017-09-22] MEDS: PANTOprazole SOD 40 MG TAB PO SCH (07:40)
[2017-09-22] MEDS: TOCOPHERYL, DL-ALPHA 400 INTER.UNIT CAP PO SCH (07:40)
[2017-09-22] MEDS: MONTELUKAST SOD 10 MG TAB PO SCH (07:40)
[2017-09-22] MEDS: PERPHENAZINE 2 MG TAB PO PRN (07:41)
--- NOTE | 2017-09-22 09:39 | Psychiatric Progress Notes ---
Progress Note Date of Service September 22, 2017. Interval History 67-year-old woman readmitted voluntarily for psychotic stefan 3 days after last hospitalization. She has had a complicated course, daily multiple medication trials, and with overlying delirium. Chief Complaint "I'm a wreck.". Subjective Patient was seen & assessed interval progress reviewed with Treatment Team. Nursing reports that she slept for 5 hours last night but this morning has been more disorganized and unsteady on her feet. She still has a 1:1 attendant due to unsteady gait and impulsive behaviors. Today Anastacio says that she's "a wreck " because she believes that the staff took a container of papers and magazines that she had in her room. She also believes they have taken other of her belongings and gets agitated about it. She reports today that her thoughts are going so fast "I can't keep up with them". She continues to have thoughts about suicide "but I would never do that.". She denies hallucinations. When asked about her unsteady gait she say its "in my core" and later gets up and says that she is dizzy. I ask her about going to [facility] [place] and she says that she is happy about it, but then goes on to talk about getting a house in [place]. She would like to go home for "a week or two" before going , but understands that its not possible. She does better today answering written questions, and is otherwise rambling as if talking to herself. Review of Systems Constitutional: + weakness ENT: + hearing loss Respiratory: No cough, No sputum, No wheezing, No shortness of breath, No dyspnea on exertion, No dyspnea at rest, No hemoptysis, No problem reported Cardiovascular: No chest pain, No orthopnea, No PND, No edema, No claudication , No palpitations, No problem reported Abdomen: No pain, No nausea, No vomiting, No diarrhea, No constipation, No GI bleeding, No problem reported Musculoskeletal: + problem reported (bilateral hip pain) Neurologic: No memory loss, No paralysis, No weakness, No numbness/tingling, No vertigo, No balance problems, No problem reported Psychiatric: + problem reported (racing thoughts) Integumentary: No rash, No itch, No new/changing skin lesions, No color change , No bleeding, No problem reported Sleep Information Total Hours of Sleep: 5.75 Meal Information Percent of Breakfast Consumed: 10 Percent of Lunch Consumed: 80 Percent of Dinner Consumed: 100 Mental Status Exam During interview pt is: alert and oriented Appearance: appropriately dressed, disheveled Eye contact is: fair (at times closing her eyes) Motor behavior is: no abnormal motor movements Speech: other (Excessive speech, mumbling incoherently at times) Affect: blunted Mood is: other ("I'm a wreck.") Thought process: tangential, looseness of associations, other (At times answers questions appropriately, other times mumbles incoherently.) Thought content: cognitive distortions Suicidal thought are: present, Plan: denied, Intent: denied Homicidal thoughts are: denied Hallucinations: denies auditory, denies visual Cognition: other (Impaired) Intelligence estimated to be: average Insight: severely impaired Judgement: severely impaired Medication Trials lithium - renal failure risperidone thiothixene quetiapine haloperidol Vraylar - ineffective after 12 days chlorpromazine perphenazine Depakote Artane - questionably effective for akathisia benztropine clonazepam lorazepam clozapine - listed as allergy ECT - ineffective per boyfriend sertraline zolpidem gabapentin propranolol Impression Variable course, especially with sleep, last night achieving 5 hours, but this AM is more disorganized, rambling and unsteady. Will obtain orthostatics after she has complained of dizziness. She has tentatively been accepted at [facility] in [place], pending 304 hearing scheduled for tomorrow, but cannot be transferred until the signed 304 order is received from the grocery caddy, so timing uncertain. Patient and her partner Alex are aware. She has had a long and difficult course, with limited response to multiple trials of meds. 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 Plan (1) Bipolar 1 disorder with mixed features 08/11 - Increase Klonopin back to 1.5 mg HS to target sleep - Will DC lithium at this point due to concerns for her age and renal status - Will increase Risperdal to 1 mg. AM and 7 mg HS - Will DC navane to reduce polypharmacy - Continue prn haldol and increase to q 4 hr prn - Will have nursing attempt to preauth Vraylar to trial - DC Zoloft - Q 15 min checks for safety - Encourage participation in group and individual counseling as tolerated - Coordinate with current providers - had FLP and FBS on 07/23/17. All WNL with the exception of triglycerides of 151 and FBS 129 08/12 - Vraylar trial when Alex can bring it in - Start 1.5 mg daily increasing to 3 mg daily the following day. - Will taper risperdal at the same time 08/13 -Vraylar was actually started at 3mg hs on 08/12 since only 3mg capsules for supply. given s/e profile will move vraylar to earlier in day, will maintain pt at 3mg for time being given long half life of med and long half life of active metabolite tapering risperdal maintained at 1mg am and 3mg hs for now since just lowered by 4mg continue prn haldol doses 08/14 -maintained vraylar 3mg qday -maintained risperdal 1mg am and 3mg hs for now, aim to wean risperdal further as adjusting to vraylar over next days 08/15 - Continue Vraylar 3mg daily - Plan to continue to taper risperdal, however patient appears to be displaying more restlessness today in regard to manic behaviors and requiring redirection from staff and prn Haldol more frequently. - Attempt to determine proximity to baseline with visits from her fiance 08/16 - Vraylar increased to 6mg daily 08/17 - Discontinue risperidone due to inefficacy, and increase Haldol prn to 10mg. - Resume trihexphenidyl at 1mg daily and monitor restlessness as able. Challenging to know if her agitation is due to akathisia, anxiety, psychosis, or stefan, and she is a limited historian. 08/18 - DC haldol due to no response - Start Thorazine 25 mg. q 2 hr prn during the day and 100 mg. scheduled at HS 08/19 - Increase thorazine to 50 q 3 hr prn and 200 mg. HS - Try to maintain good sleep wake cycles - EKG today 08/20 - 150mg of [place] to be added this evening to stabilize mood in interim of response to Vraylar, level in 5 days to monitor for possible toxicity. - Increase Klonopin to 2.5mg qHS to better target sleep. Pt remains on 1-to- 1 observation currently, continue safety precautions for fall risk with medication changes - Encourage sleep as able, with target to keep patient in appropriate sleep- wake cycle. Daytime naps are limited in length. 08/21 - Li restarted yesterday which is not expected to demonstrate a quick benefit but in deference to long standing treatment and increased risk for ongoing mood instability off the medication. given renal impairment, she will need more frequent monitoring but the potential benefit is felt to outweigh the risk given the severity of her underlying mental health d/o. I would suggest maintaining this very low dose and checking a level on the (which I ordered today) before further titration. - sleeping more in last 24h getting high dose Thorazine which, unfortunately , may also be making her delirious. I am uncertain if she has been treated with high dose seroquel previously but that could be considered as an alternative if she struggles to tolerate the Thorazine moving forward. - will increase melatonin to 9mg qhs for additional sleep benefit with minimal risk for worsening delirium. could also consider temporarily maximizing ambien at 10mg but will defer for today 2/2 delirium as sleep is presently improving which will hopefully show antimanic effect. 08/22 - Continue on Thorazine, Vraylar, [place], and Klonopin. [place] level ordered for 08/25. - Will attempt to develop plan to decrease low-dose polypharmacy; Pt's significant other hesitant for other medication changes and is unwilling for ECT at this time - Continue delirium protocol with encouraging appropriate sleep/wake cycles 08/23 -Continue environmental and behavioral interventions for delirium, reviewed her medications and attempting to eliminate unnecessary medications ( cholestyramine discontinued as she was refusing it and not acutely important). -Try to consolidate sleep at night; continue melatonin 9 mg, clonazepam 2.5 mg, zolpidem 5 mg, and chlorpromazine 200 mg at bedtime. -Continue Vraylar 6 mg every morning (started 08/12/2017). -Continue trihexyphenidyl 1 mg every morning for akathisia. -[place] 150 mg at bedtime restarted 08/20/2017; level and BMP ordered for . 08/24 1. DC Vraylar- Has not shown any improvement since added 2. DC Thorazine- No significant improvement and contributing to anticholinergic load 3. DC Artane- Difficult to tell whether she is restless or whether restlessness is due to stefan, and concern for anticholinergic load 4. DC Ambien- Can contribute to confusion, especially in women 5. DC Vistaril- due to concerns for anticholinergic load 6. Retrial Depakote ER 500 mg. HS titrated to therapeutic level. Has been on this in the past but reports from pt and Alex provide different memories of it. 7. Trial Zyprexa- Will start low with 5 mg due to long half life of Vraylar , to target stefan 8. Continue lithium low dose, re-added due to concerns that withdrawing it after she has been on it for years has contributed to deterioration. Caution to renal status 9. Continue Klonopin 10. Continue Tramadol prn, but have encouraged nursing to use it only sparingly. 08/25 -Increase olanzapine to 7.5mg HS and prn to 5mg. -[place] trough 0.3; creatinine and BUN up slightly at 30 and 1.77. Continue to encourage adequate hydration, and will recheck lithium trough and BMP in 4 days. -Continue Depakote 500 mg nightly, and check a Depakote trough on 08/29/2017. -Consideration for ECT stefan, psychosis, and delirium do not improve. 08/26 -Increase HS zyprexa to 10 mg. continue prn's - Continue to encourage hydration - Continue depakote with level 08/29 - Will obtain CBC and UA to rule out UTI, dyscrasia - Continue to consider ECT if no improvement 08/27 --continue Zyprexa titration to 15 mg po qhs, d/c prn doses as no apparently benefit; given longstanding rx with a typical antipsychotic (Navane) and some response to Haldol prn, trial of Trilafon prn agitation. --restlessness appears to be related to catatonia in my opinion rather than akathisia. That said, will offer prn beta brad as trial for comfort, BP has been elevated anyway, would prefer to implement this rather than increasing Cozaar acutely --no clear benefit from hs clonazepam and treatment of choice for catatonia is lorazepam so taper Klonopin in favor of Ativan TID + prn. Remains on 1-on-1 for falls precautions. 08/28 --continue Zyprexa titration to 20 mg po qhs --may use propranolol TID prn --replace HS Klonopin with 2 mg Ativan as appears more effective 08/29 - Continue Zyprexa 20mg qHS, propranolol TID prn, Ativan 2mg qHS, and prn Trilafon - Recent labs reviewed: Li level = 0.4; Depakote level = 27 - BUN elevated at 36, creatinine elevated at 1.88. GFR = 27.5. - Due to progressive worsening of kidney function and apparent improvement with addition of other agents, will discontinue [place] at this time. - Increase Depakote to 750mg tonight. Depakote trough level ordered for 2017. 08/30 - Continue current meds with the exception of stopping AM ativan due to sedation, and concerns for fall risk 08/31 -Continue current medications, including Lorazepam 1 mg q. 1200 and 1700 hrs. and 2 mg at bedtime, Depakote 750 mg nightly, olanzapine 20 mg nightly, propanolol 20 mg 3 times daily as needed for restlessness, perphenazine 4 mg as needed for agitation, and melatonin 9 mg at bedtime. -Continue one-to-one monitoring. 09/01 - Continue current meds and plan including 1:1 09/02 - Add Trilafon 4 mg. TID 09/03 - increase trilafon to and pending VPA level and BMP on 09/04, will add CBC due to BRBPR yesterday due to hemrrhoids, and TSH (see below). will watch her sedation and if sedated will lower ativan 09/04/17 - patient is not showing tangible gains from this provider's review of chart and observation over last 2 days. Nursing staff felt she was less pervasively agitated on 09/03, and but she seems to continue to demonstrate pattern of delirium (waxing and waning mental state with fragmented sleep, hallucinations and waking in anxious state disoriented, labile) The inpatient team has done a heroic job of caring for this woman who has very complicated and refractory primary mental health condition and what appears to be superimposed delirium her prognosis is poor. She did best on lithium as a component of her treatment to date. Review of record is that patient's kidney function (creatinine and BUN) worsened on lithium earlier this month, but at 150mg/hs for 7days she had two of her best days inpatient on 08/29 (date of discontinuation), and 08/30 (day after discontinuation) even though her level was only 0.4 on 08/29. I will discuss with primary team as there are very serious risks of returning to lithium. - it is not clear if remeron provided an improvement for patient last night, or it was the last of a series of several sedating medications. Although it is optimal in delirium to keep up in the day and sleep at night, given she is only getting 1-4hours/night it is hard to justify waking her only for her to be agitated in the day today. Will discuss with staff and attempt to keep her up to a degree possible with light cues and stimulus in the day and lower stimulus at night - continue trilafon for now scheduled with PRN, she did require less in the last 24hours than the preceding day but it remains to be see if that is improvement - increase Depakote from 750 (level 57, free level pending) to 1000mg tonight repeat level ordered for 09/09/17 AM - she is anemic, stably so compared to 07/2017, but will draw ferritin, transferin and transferrin Saturation and TIBC to r/o iron deficiency as contributing to RLS as she is anemic, would replete with oral iron if this returns low, will discus with primary team as vitamin E may impair the response for her iron deficiency anemia - consider MVI in place of vitamin E (as not to over- dose with time) - avoid anticholinergics - she remains on benzodiazepines at this time (combination of scheduled and prns getting 5-6mg/day in the last 2 days), and although there was prior speculation of agitated catatonia in the chart it is not clear to me that the current prn doses are meaningfully helpful and can worsen delirium. Will maintain scheduled ativan 1mg 12, 1mg 1700 and 2mg/hs but stop the prn doses, and prefer trilafon prn psychosis/agitation - will not write for standing dose of remeron but if staff call again this evening after scheduled medications and patient is not sleeping would consider again giving 7.5mg remeron with caution monitoring for oversedation and future mood elevation, and watch RLS - will ask staff to get a clock drawing for goal of serial clock drawings overtime can assist in tracking delirium recovery 09/05 -Continue Depakote 1000 mg nightly, with a repeat trough level on 09/09/2017. -Continue olanzapine 20 mg nightly, perphenazine 4 mg twice daily and 8 mg nightly, and decrease Lorazepam to 1 mg q. 1700 and 2 mg nightly (discontinuing the 1 mg dose at noon). Continue perphenazine and propranolol as needed's. 09/06 - AM sedation, but poor sleep at night. Shift trilafon to 4 mg. at 1400 and 12 mg. HS 09/07 -Continue current medications and one-to-one supervision, private room, and fall precautions. 09/08 - Continue current plan and meds. 09/09 - Continue current medications - Depakote level this morning = 68 09/10 - Irritable and impulsive on Depakote. Will taper to 500 mg. HS and start trial of Neurontin 100 mg. TID titrating as tolerated. - Will need to monitor renal functions over time 09/11 - Increase Neurontin to 200 mg. TID 09/12 -Continue current medications. Multiple medication changes made over the weekend, and we need to give this time to work. She reports an allergy to clozapine, and is unable to consent to ECT and her current condition. In addition, her boyfriend has stated that he does not think she responded well to ECT in the past, and has not been supportive of it. Additionally, she does not have the resources to continue with outpatient ECT after the initial inpatient course, so it is not a viable option at this time. -Order repeat BMP for tomorrow, to monitor kidney function. -She remains on one-to-one, although staff reports some of her behavioral issues appear volitional. Will ask the one-to-one staff to try watching her from a distance, to see if she is able to tolerate less direct oversight. 09/13 -DC depakote - Increase Neurontin to 200-200-600 mg 09/14 - 09/15 -continue current meds and plan. 09/16 - Neurontin increased to [phone] - Continue other medications as directed. 09/17 -continue current medications. Monitor gait, as she is unsteady today. 09/18 -continue current medications and plan. Patient has had a prolonged hospital course, has failed multiple medication trials, and her symptoms have been very challenging to treat due to her medical comorbidities and lack of robust response, as well as complicating delirium. We are attempting to limit medications that could worsen her overall condition, but that also treat her mental health symptoms. 09/19 - 72-hour notice signed and submitted to staff - expires 09/22 @ 0700. - Continue current medications and treatment plan 09/20 - 72 hour notice still in. Will enlist Alex's support in revoking if possible. If not will consider a 302. 09/21 -Patient rescinded her 72 hour notice. We will file for a 304 commitment, with referral to [facility] for ongoing inpatient treatment. 09/22 - 304 scheduled for tomorrow and has been tentatively accepted at [facility] in [place] - Will continue current meds. I see no need to make changes this close to transfer. (2) Chronic kidney disease (CKD) 08/11 - DC lithium. Will attempt to stabilize mood with atypicals - Collaborate with Dr. Ovalles as needed 08/20 - Restart [place] at 150mg qHS in attempt to stabilize mood and target manic behaviors. Ideally would be used in the short-term until response to Vraylar is more evident; however, patient is known to have responded well in the past. 08/21 - increase losartan to 50mg for persistently elevated BP's 08/23 -Low-dose lithium resumed 08/20/2017 due to acute worsening of psychiatric symptoms thought possibly due to discontinuation of lithium after being on it for many years. [place] trough and BMP ordered for 08/25/2017. 08/25 -[place] trough level 0.3, BUN 30, creatinine 1.77. These are up slightly from 08/10/2017, 1 BUN was 23 and creatinine 1.46. We will continue to monitor closely, ensure adequate hydration, and recheck in 4 days. If kidney function worsens, we will need to discontinue the lithium, as previously discussed with nephrology (Dr. Foreman on 07/25/2017). 08/29 - Labs reviewed: Li level = 0.4. BUN and Cr elevated at 36 and 1.88 respectively. GFR as outpatient progressively decreasing from 43.6 to 38.3. Most recent GFR = 27.5 - Will d/c [place] in favor of Depakote titration 08/31 -Will recheck BMP on 09/04/2017 to monitor kidney function. Continue to encourage fluids. 09/04 - Cr 1.48 and BUN 23, continue to encourage fluids (3) Hypothyroidism 08/11 - TSH WNL and not on levothyroxine. - May have had abnl values in the past related to being on lithium 08/26 - BP elevated. Will increase Cozaar to 75 mg. daily - VS BID 09/03/17 - will add TSH to labs for tomorrow given exopthalamos, h/o hypothyroid and not on levothyroxine 09/04 TSH WNL (4) Hyperlipemia 08/11 - Continue home dose of atorvastatin - FLP done 07/24 08/23 -Patient intermittently refusing cholestyramine; discontinue for now as also on atorvastatin and trying to limit polypharmacy. (5) Hypertension 08/31 -has been persistently hypertensive for the past several days, and intermittently hypertensive throughout her stay. No known history of hypertension, and EKG on 08/19/2017 was normal sinus rhythm. Consider need for hospitalist assistance if hypertension persists. 09/03 - normotensive this AM was hypertensive last evening but may also correlate with values taken at time of agitation, will monitor closely, Temp is not elevated and will check WBC tomorrow, do not think this is related to malignant catatonia at this time 09/04 - BP varies high in the evening and lower in the day, continue to monitor closely 09/07 - Was normotensive for 2 days, and yesterday evening had elevated blood pressure, but again normal this morning. Continue to monitor. Discharge / Aftercare Planning Primary Care Physician: Name: Santos JACKSON [facility] [id number] [facility] [place] [address] Psychiatrist: Name: Dr. Hahn, [facility] Appointment Notes: [address] [place] [address] Therapist: Name: Katerina Valerio Greyson [facility] Appointment Notes: [address] [place] [address] Prune Washer: Name: Zulay Macias [facility]: Home Health Services: director social service, home health agency Home Health Agency: [facility] Specialist: Name: Dr. Demarcus Ovalles, Recycle Worker [facility] Phone Number: [phone] Date of Appointment: Oct 21, 2017 Time of Appointment: 1:15pm Visit Code E&M Code: 27996 Inventory Assets Strengths: Support from partner, good relationship with outpatient provider Needs: Clarity with her medications Risk Factors Assessment : Yes /single/: No Higher / Fall in social status: No Access to guns: No Health problems: Yes Mental Health Diagnoses: Yes Substance use disorders: No Previous attempt: Yes Family history of suicide: Yes Previous psychiatric stay: Yes Hopelessness: No Smoker: No Protective Factors Assessment : No Responsible for young children: No Employed: No Stable relationships: Yes Supportive family: Yes Good rapport with provider: Yes Data Vital Signs Last 24 Hrs: Date Time Temp Pulse Resp B/P (MAP) Pulse Ox O2 Delivery O2 Flow Rate FiO2 09/21/17 21:23 108 16 126/89 (101) Meds Administered Last 24 Hrs: Current Inpatient Medications Medications (Trade) Dose Ordered Sig/Kelsey Route Start Time Stop Time Status Last Admin Dose Admin Acetaminophen (Tylenol Tab) 650 mg Q4H PRN PO 08/10/17 20:00 10/09/17 19:58 09/21/17 22:31 650 MG Al Hydroxide/Mg Hydroxide (Maalox Susp) 30 ml Q4H PRN PO 08/10/17 20:00 10/09/17 19:58 08/30/17 11:57 30 ML Bismuth Subsalicylate (Kaopectate Liqd) 15 ml DAILY PRN PO 08/10/17 20:00 10/09/17 19:58 Magnesium Hydroxide (Milk Of Magnesia Susp) 30 ml DAILY PRN PO 08/10/17 20:00 10/09/17 19:58 09/17/17 23:34 30 ML Sodium Chloride (Stark Nasal [place]) PRN PRN NA 08/10/17 20:00 10/09/17 19:58 09/13/17 12:09 1 SPRAYS Atorvastatin Calcium (Lipitor Tab) 10 mg HS PO 08/10/17 22:00 10/09/17 21:58 09/21/17 20:50 10 MG Fish Oil ([place]-3 (Purified Fish Oil) Cap) 1 gm BID PO 08/10/17 22:00 10/09/17 21:58 09/22/17 07:39 1 GM Multivitamins/ Minerals (Multivitamin W/ Minerals Tab) 1 tab QAM PO 08/11/17 09:00 10/10/17 08:58 09/22/17 07:39 1 TAB Montelukast Sodium (Singulair Tab) 10 mg QAM PO 08/11/17 09:00 10/10/17 08:58 09/22/17 07:40 10 MG Pantoprazole Sodium (Protonix Tab) 40 mg QAM PO 08/11/17 09:00 10/10/17 08:58 09/22/17 07:40 40 MG Tramadol HCl (Ultram Tab) 50 mg Q6H PRN PO 08/10/17 20:15 10/09/17 20:13 09/21/17 18:47 50 MG du-Waqkr-Lbzwampbnu Acetate (Vitamin E Cap) 400 interunit DAILY PO 08/11/17 09:00 10/10/17 08:58 09/22/17 07:40 400 INTERUNIT Melatonin (Melatonex) 9 mg HS PO 08/25/17 22:00 09/24/17 21:59 09/21/17 20:51 9 MG Perphenazine (Trilafon Tab) 4 mg Q6 PRN PO 08/27/17 08:30 09/26/17 08:29 09/22/17 07:41 4 MG Olanzapine (Zyprexa Tab) 20 mg HS PO 08/28/17 22:00 09/23/17 21:59 09/21/17 20:52 20 MG Propranolol HCl (Inderal Tab) 20 mg TID PRN PO 08/28/17 09:45 09/26/17 08:29 09/17/17 19:50 20 MG Lorazepam (Ativan Tab) 2 mg HS PO 08/28/17 22:00 09/27/17 21:59 09/21/17 20:50 2 MG Losartan Potassium (coZAAR TAB) 75 mg QAM PO 09/02/17 09:00 10/02/17 08:59 09/22/17 07:39 75 MG Lorazepam (Ativan Tab) 1 mg DAILY@1700 PO 09/05/17 17:00 09/29/17 16:59 09/21/17 16:59 1 MG Perphenazine (Trilafon Tab) 4 mg DAILY@1400 PO 09/06/17 14:00 10/06/17 13:59 09/21/17 13:48 4 MG Perphenazine (Trilafon Tab) 12 mg HS PO 09/06/17 22:00 10/06/17 21:59 09/21/17 20:51 12 MG Benzocaine (Orajel 20% Oral Gel) 1 appln BID PRN MT 09/06/17 12:45 10/06/17 12:44 09/16/17 03:46 1 APPLN Gabapentin (Neurontin Cap) 400 mg BID@0900,1400 PO 09/16/17 14:00 10/13/17 13:59 09/22/17 07:39 400 MG Gabapentin (Neurontin Tab) 800 mg HS PO 09/16/17 22:00 10/13/17 21:59 09/21/17 20:51 800 MG Lab Results Last 24 Hrs: 09/04/17 09:09 Red Blood Count 3.43, Mean Corpuscular Volume 89.2, Mean Corpuscular Hemoglobin 29.2, Mean Corpuscular Hemoglobin Concent 32.7, Mean Platelet Volume 9.6, Neutrophils (%) (Auto) 69.8, Lymphocytes (%) (Auto) 18.6, Monocytes (%) (Auto) 8.7, Eosinophils (%) (Auto) 1.5, Basophils (%) (Auto) 0.2, Neutrophils # (Auto) 2.81, Lymphocytes # (Auto) 0.75, Monocytes # (Auto) 0.35, Eosinophils # (Auto) 0.06, Basophils # (Auto) 0.01 09/13/17 06:58 Test 08/10/17 12:35 08/10/17 12:56 08/26/17 00:00 08/29/17 09:07 Urine Opiates Screen NEG (NEG) Urine Methadone, Qualitative NEG (NEG) Urine Barbiturates NEG (NEG) Urine Phencyclidine (PCP) Level NEG (NEG) Ur Amphetamine/Methamphetamine NEG (NEG) MDMA (Ecstasy) Screen NEG (NEG) Urine Benzodiazepines Screen NEG (NEG) Urine Cocaine Metabolite NEG (NEG) Urine Marijuana (THC) NEG (NEG) Total Bilirubin 0.3 mg/dl (0.2-1) Aspartate Amino Transf (AST/SGOT) 22 U/L (15-37) Alanine Aminotransferase (ALT/SGPT) 49 U/L (12-78) Alkaline Phosphatase 130 U/L (45-117) Total Protein 7.2 gm/dl (6.4-8.2) Albumin 3.4 gm/dl (3.4-5.0) Globulin 3.8 gm/dl (2.5-4.0) Albumin/Globulin Ratio 0.9 (0.9-2) Salicylates Level < 1.7 mg/dl (2.8-20) Acetaminophen Level < 2 ug/ml (10-30) Ethyl Alcohol mg/dL < 3.0 mg/dl (0-3) Urine Color YELLOW Urine Appearance CLEAR (CLEAR) Urine pH 6.0 (4.5-7.5) Urine Specific [place] 1.009 (1.000-1.030) Urine Protein 1+ (NEG) Urine Glucose (UA) NEG (NEG) Urine Ketones NEG (NEG) Urine Occult Blood NEG (NEG) Urine Nitrite NEG (NEG) Urine Bilirubin NEG (NEG) Urine Urobilinogen NEG (NEG) Urine Leukocyte Esterase MODERATE (NEG) Urine WBC (Auto) 1-5 /hpf (0-5) Urine RBC (Auto) 0-4 /hpf (0-4) Urine Hyaline Casts (Auto) 0 /lpf (0-5) Urine Epithelial Cells (Auto) 5-10 /lpf (0-5) Urine Bacteria (Auto) NEG (NEG) [place] Level 0.4 mMOL/L (0.6-1.2) Test 09/04/17 09:09 09/09/17 09:20 09/13/17 06:58 White Blood Count 4.03 K/uL (4.8-10.8) Red Blood Count 3.43 M/uL (4.2-5.4) Hemoglobin 10.0 g/dL (12.0-16.0) Hematocrit 30.6 % (37-47) Mean Corpuscular Volume 89.2 fL (80-100) Mean Corpuscular Hemoglobin 29.2 pg (25-34) Mean Corpuscular Hemoglobin Concent 32.7 g/dl (32-36) Platelet Count 171 K/uL (130-400) Mean Platelet Volume 9.6 fL (7.4-10.4) Neutrophils (%) (Auto) 69.8 % Lymphocytes (%) (Auto) 18.6 % Monocytes (%) (Auto) 8.7 % Eosinophils (%) (Auto) 1.5 % Basophils (%) (Auto) 0.2 % Neutrophils # (Auto) 2.81 K/uL (1.4-6.5) Lymphocytes # (Auto) 0.75 K/uL (1.2-3.4) Monocytes # (Auto) 0.35 K/uL (0.11-0.59) Eosinophils # (Auto) 0.06 K/uL (0-0.5) Basophils # (Auto) 0.01 K/uL (0-0.2) RDW Standard Deviation 46.9 fL (36.4-46.3) RDW Coefficient of Variation 14.3 % (11.5-14.5) Immature Granulocyte % (Auto) 1.2 % Immature Granulocyte # (Auto) 0.05 K/uL (0.00-0.02) Miscellaneous Test REPORT Iron Level 64 mcg/dl (35-150) Total Iron Binding Capacity 304 mcg/dl (250-450) Transferrin 261 mg/dl (200-360) Transferrin % Saturation 17 % (15-50) Ferritin 156.5 ng/ml (8.0-388.0) Thyroid Stimulating Hormone (TSH) 1.710 uIu/ml (0.300-4.500) Valproic Acid (Depakene) Level 68 mcg/ml (50-100) Anion Gap 5.0 mmol/L (3-11) Est Creatinine Clear Calc Drug Dose 32.2 ml/min Estimated GFR () 45.2 Estimated GFR (Non- 39.0 BUN/Creatinine Ratio 19.3 (10-20) Calcium Level 8.9 mg/dl (8.5-10.1) Chemistry Specimen Hemolysis Date/Time Source Procedure Growth Status 08/26/17 00:00 Urine , Clean Catch Urine Culture - Final MORE THAN THREE TYPES OF ORGANISMS AK... Complete Problem Qualifiers (1) Chronic kidney disease (CKD): Chronic kidney disease stage: stage 1 Qualified Codes: N18.1 - Chronic kidney disease, stage 1
[2017-09-22 09:40] VITALS: BP_SYST 134; BP_SYST 146; BP_DIAS 69; BP_DIAS 74; PULSE 114; PULSE 117; O2SAT 97
[2017-09-22] MEDS: MAGNESIUM HYDROXIDE SUSP 30 ML UDC PO PRN (11:58)
[2017-09-22] MEDS: PERPHENAZINE 2 MG TAB PO SCH ×2 (13:28→21:46)
[2017-09-22] MEDS: LORAZEPAM 1 MG TAB PO SCH (17:04)
[2017-09-22 21:08] VITALS: BP 144/72; PULSE 101; TEMP 37.3
[2017-09-22] MEDS: OLANZAPINE 20 MG TAB PO SCH (21:45)
[2017-09-22] MEDS: MELATONIN 3 MG PO SCH (21:46)
[2017-09-22] MEDS: LORAZEPAM 2 MG TAB PO SCH (21:46)
[2017-09-22] MEDS: GABAPENTIN 800 MG TAB PO SCH (21:46)
[2017-09-22] MEDS: ATORVASTATIN 10 MG TAB PO SCH (21:46)
[2017-09-23] MEDS: TRAMADOL HCL 50 MG TAB PO PRN (02:23)
[2017-09-23 03:01] VITALS: BP 134/66; PULSE 104; O2SAT 95
[2017-09-23] MEDS: PERPHENAZINE 2 MG TAB PO PRN ×2 (03:06→16:34)
[2017-09-23] MEDS: PROPRANOLOL HCL 20 MG TAB PO PRN (03:06)
[2017-09-23] MEDS: PANTOprazole SOD 40 MG TAB PO SCH (08:48)
[2017-09-23] MEDS: LOSARTAN POTASSIUM 25 MG TAB PO SCH (08:48)
[2017-09-23] MEDS: CEROVITE ADV FORMULA TAB PO SCH (08:48)
[2017-09-23] MEDS: GABAPENTIN 400 MG CAP PO SCH ×2 (08:48→13:50)
[2017-09-23] MEDS: OMEGA-3 (PURIFIED FISH OIL) 1 GM CAP PO SCH (08:48)
--- NOTE | 2017-09-23 08:48 | Psychiatric Progress Notes ---
Progress Note Date of Service September 23, 2017. Interval History 67-year-old woman readmitted voluntarily for psychotic stefan 3 days after last hospitalization. She has had a complicated course, daily multiple medication trials, and with overlying delirium. Chief Complaint "ready to go". Subjective Patient was seen & assessed interval progress reviewed with Treatment Team. Met with patient and long time partner, latter voiced good understanding of plan for 304 commitment to longer term hospitalization. Did not sleep well. Still rambles and require redirect from 1-on-1. Review of Systems patient lacks attention this am to complete, remains hard of hearing Sleep Information Total Hours of Sleep: 4.00 Meal Information Percent of Breakfast Consumed: 10 Percent of Lunch Consumed: 25 Percent of Dinner Consumed: 100 Mental Status Exam During interview pt is: cooperative Appearance: appropriately dressed, disheveled Eye contact is: fair Motor behavior is: no abnormal motor movements Speech: other (Excessive speech, mumbling incoherently at times) Affect: euthymic Mood is: other ("fine") Thought process: tangential, other (At times answers questions appropriately, other times mumbles incoherently.) Thought content: preoccupation Suicidal thought are: denied, Plan: denied, Intent: denied Homicidal thoughts are: denied Hallucinations: denies auditory, denies visual Cognition: other (Impaired) Intelligence estimated to be: average Insight: severely impaired Judgement: severely impaired Medication Trials lithium - renal failure risperidone thiothixene quetiapine haloperidol Vraylar - ineffective after 12 days chlorpromazine perphenazine Depakote Artane - questionably effective for akathisia benztropine clonazepam lorazepam clozapine - listed as allergy ECT - ineffective per boyfriend sertraline zolpidem gabapentin propranolol Impression Variable course, especially with sleep, last night achieving 5 hours, but this AM is more disorganized, rambling and unsteady. Will obtain orthostatics after she has complained of dizziness. She has tentatively been accepted at [facility] in [place], pending 304 hearing scheduled for tomorrow, but cannot be transferred until the signed 304 order is received from the wildlife conservationist, so timing uncertain. Patient and her partner Alex are aware. She has had a long and difficult course, with limited response to multiple trials of meds. It is appearing that she will require nursing home inpatient care. Plan (1) Bipolar 1 disorder with mixed features 08/11 - Increase Klonopin back to 1.5 mg HS to target sleep - Will DC lithium at this point due to concerns for her age and renal status - Will increase Risperdal to 1 mg. AM and 7 mg HS - Will DC navane to reduce polypharmacy - Continue prn haldol and increase to q 4 hr prn - Will have nursing attempt to preauth Vraylar to trial - DC Zoloft - Q 15 min checks for safety - Encourage participation in group and individual counseling as tolerated - Coordinate with current providers - had FLP and FBS on 07/23/17. All WNL with the exception of triglycerides of 151 and FBS 129 08/12 - Vraylar trial when Alex can bring it in - Start 1.5 mg daily increasing to 3 mg daily the following day. - Will taper risperdal at the same time 08/13 -Vraylar was actually started at 3mg hs on 08/12 since only 3mg capsules for supply. given s/e profile will move vraylar to earlier in day, will maintain pt at 3mg for time being given long half life of med and long half life of active metabolite tapering risperdal maintained at 1mg am and 3mg hs for now since just lowered by 4mg continue prn haldol doses 08/14 -maintained vraylar 3mg qday -maintained risperdal 1mg am and 3mg hs for now, aim to wean risperdal further as adjusting to vraylar over next days 08/15 - Continue Vraylar 3mg daily - Plan to continue to taper risperdal, however patient appears to be displaying more restlessness today in regard to manic behaviors and requiring redirection from staff and prn Haldol more frequently. - Attempt to determine proximity to baseline with visits from her fiance 08/16 - Vraylar increased to 6mg daily 08/17 - Discontinue risperidone due to inefficacy, and increase Haldol prn to 10mg. - Resume trihexphenidyl at 1mg daily and monitor restlessness as able. Challenging to know if her agitation is due to akathisia, anxiety, psychosis, or stefan, and she is a limited historian. 08/18 - DC haldol due to no response - Start Thorazine 25 mg. q 2 hr prn during the day and 100 mg. scheduled at HS 08/19 - Increase thorazine to 50 q 3 hr prn and 200 mg. HS - Try to maintain good sleep wake cycles - EKG today 08/20 - 150mg of [place] to be added this evening to stabilize mood in interim of response to Vraylar, level in 5 days to monitor for possible toxicity. - Increase Klonopin to 2.5mg qHS to better target sleep. Pt remains on 1-to- 1 observation currently, continue safety precautions for fall risk with medication changes - Encourage sleep as able, with target to keep patient in appropriate sleep- wake cycle. Daytime naps are limited in length. 08/21 - Li restarted yesterday which is not expected to demonstrate a quick benefit but in deference to long standing treatment and increased risk for ongoing mood instability off the medication. given renal impairment, she will need more frequent monitoring but the potential benefit is felt to outweigh the risk given the severity of her underlying mental health d/o. I would suggest maintaining this very low dose and checking a level on the (which I ordered today) before further titration. - sleeping more in last 24h getting high dose Thorazine which, unfortunately , may also be making her delirious. I am uncertain if she has been treated with high dose seroquel previously but that could be considered as an alternative if she struggles to tolerate the Thorazine moving forward. - will increase melatonin to 9mg qhs for additional sleep benefit with minimal risk for worsening delirium. could also consider temporarily maximizing ambien at 10mg but will defer for today 2/2 delirium as sleep is presently improving which will hopefully show antimanic effect. 08/22 - Continue on Thorazine, Vraylar, [place], and Klonopin. [place] level ordered for 08/25. - Will attempt to develop plan to decrease low-dose polypharmacy; Pt's significant other hesitant for other medication changes and is unwilling for ECT at this time - Continue delirium protocol with encouraging appropriate sleep/wake cycles 08/23 -Continue environmental and behavioral interventions for delirium, reviewed her medications and attempting to eliminate unnecessary medications ( cholestyramine discontinued as she was refusing it and not acutely important). -Try to consolidate sleep at night; continue melatonin 9 mg, clonazepam 2.5 mg, zolpidem 5 mg, and chlorpromazine 200 mg at bedtime. -Continue Vraylar 6 mg every morning (started 08/12/2017). -Continue trihexyphenidyl 1 mg every morning for akathisia. -[place] 150 mg at bedtime restarted 08/20/2017; level and BMP ordered for . 08/24 1. DC Vraylar- Has not shown any improvement since added 2. DC Thorazine- No significant improvement and contributing to anticholinergic load 3. DC Artane- Difficult to tell whether she is restless or whether restlessness is due to stefan, and concern for anticholinergic load 4. DC Ambien- Can contribute to confusion, especially in women 5. DC Vistaril- due to concerns for anticholinergic load 6. Retrial Depakote ER 500 mg. HS titrated to therapeutic level. Has been on this in the past but reports from pt and Alex provide different memories of it. 7. Trial Zyprexa- Will start low with 5 mg due to long half life of Vraylar , to target stefan 8. Continue lithium low dose, re-added due to concerns that withdrawing it after she has been on it for years has contributed to deterioration. Caution to renal status 9. Continue Klonopin 10. Continue Tramadol prn, but have encouraged nursing to use it only sparingly. 08/25 -Increase olanzapine to 7.5mg HS and prn to 5mg. -[place] trough 0.3; creatinine and BUN up slightly at 30 and 1.77. Continue to encourage adequate hydration, and will recheck lithium trough and BMP in 4 days. -Continue Depakote 500 mg nightly, and check a Depakote trough on 08/29/2017. -Consideration for ECT stefan, psychosis, and delirium do not improve. 08/26 -Increase HS zyprexa to 10 mg. continue prn's - Continue to encourage hydration - Continue depakote with level 08/29 - Will obtain CBC and UA to rule out UTI, dyscrasia - Continue to consider ECT if no improvement 08/27 --continue Zyprexa titration to 15 mg po qhs, d/c prn doses as no apparently benefit; given longstanding rx with a typical antipsychotic (Navane) and some response to Haldol prn, trial of Trilafon prn agitation. --restlessness appears to be related to catatonia in my opinion rather than akathisia. That said, will offer prn beta brad as trial for comfort, BP has been elevated anyway, would prefer to implement this rather than increasing Cozaar acutely --no clear benefit from hs clonazepam and treatment of choice for catatonia is lorazepam so taper Klonopin in favor of Ativan TID + prn. Remains on 1-on-1 for falls precautions. 08/28 --continue Zyprexa titration to 20 mg po qhs --may use propranolol TID prn --replace HS Klonopin with 2 mg Ativan as appears more effective 08/29 - Continue Zyprexa 20mg qHS, propranolol TID prn, Ativan 2mg qHS, and prn Trilafon - Recent labs reviewed: Li level = 0.4; Depakote level = 27 - BUN elevated at 36, creatinine elevated at 1.88. GFR = 27.5. - Due to progressive worsening of kidney function and apparent improvement with addition of other agents, will discontinue [place] at this time. - Increase Depakote to 750mg tonight. Depakote trough level ordered for 2017. 08/30 - Continue current meds with the exception of stopping AM ativan due to sedation, and concerns for fall risk 08/31 -Continue current medications, including Lorazepam 1 mg q. 1200 and 1700 hrs. and 2 mg at bedtime, Depakote 750 mg nightly, olanzapine 20 mg nightly, propanolol 20 mg 3 times daily as needed for restlessness, perphenazine 4 mg as needed for agitation, and melatonin 9 mg at bedtime. -Continue one-to-one monitoring. 09/01 - Continue current meds and plan including 1:1 09/02 - Add Trilafon 4 mg. TID 09/03 - increase trilafon to and pending VPA level and BMP on 09/04, will add CBC due to BRBPR yesterday due to hemrrhoids, and TSH (see below). will watch her sedation and if sedated will lower ativan 09/04/17 - patient is not showing tangible gains from this provider's review of chart and observation over last 2 days. Nursing staff felt she was less pervasively agitated on 09/03, and but she seems to continue to demonstrate pattern of delirium (waxing and waning mental state with fragmented sleep, hallucinations and waking in anxious state disoriented, labile) The inpatient team has done a heroic job of caring for this woman who has very complicated and refractory primary mental health condition and what appears to be superimposed delirium her prognosis is poor. She did best on lithium as a component of her treatment to date. Review of record is that patient's kidney function (creatinine and BUN) worsened on lithium earlier this month, but at 150mg/hs for 7days she had two of her best days inpatient on 08/29 (date of discontinuation), and 08/30 (day after discontinuation) even though her level was only 0.4 on 08/29. I will discuss with primary team as there are very serious risks of returning to lithium. - it is not clear if remeron provided an improvement for patient last night, or it was the last of a series of several sedating medications. Although it is optimal in delirium to keep up in the day and sleep at night, given she is only getting 1-4hours/night it is hard to justify waking her only for her to be agitated in the day today. Will discuss with staff and attempt to keep her up to a degree possible with light cues and stimulus in the day and lower stimulus at night - continue trilafon for now scheduled with PRN, she did require less in the last 24hours than the preceding day but it remains to be see if that is improvement - increase Depakote from 750 (level 57, free level pending) to 1000mg tonight repeat level ordered for 09/09/17 AM - she is anemic, stably so compared to 07/2017, but will draw ferritin, transferin and transferrin Saturation and TIBC to r/o iron deficiency as contributing to RLS as she is anemic, would replete with oral iron if this returns low, will discus with primary team as vitamin E may impair the response for her iron deficiency anemia - consider MVI in place of vitamin E (as not to over- dose with time) - avoid anticholinergics - she remains on benzodiazepines at this time (combination of scheduled and prns getting 5-6mg/day in the last 2 days), and although there was prior speculation of agitated catatonia in the chart it is not clear to me that the current prn doses are meaningfully helpful and can worsen delirium. Will maintain scheduled ativan 1mg 12, 1mg 1700 and 2mg/hs but stop the prn doses, and prefer trilafon prn psychosis/agitation - will not write for standing dose of remeron but if staff call again this evening after scheduled medications and patient is not sleeping would consider again giving 7.5mg remeron with caution monitoring for oversedation and future mood elevation, and watch RLS - will ask staff to get a clock drawing for goal of serial clock drawings overtime can assist in tracking delirium recovery 09/05 -Continue Depakote 1000 mg nightly, with a repeat trough level on 09/09/2017. -Continue olanzapine 20 mg nightly, perphenazine 4 mg twice daily and 8 mg nightly, and decrease Lorazepam to 1 mg q. 1700 and 2 mg nightly (discontinuing the 1 mg dose at noon). Continue perphenazine and propranolol as needed's. 09/06 - AM sedation, but poor sleep at night. Shift trilafon to 4 mg. at 1400 and 12 mg. HS 09/07 -Continue current medications and one-to-one supervision, private room, and fall precautions. 09/08 - Continue current plan and meds. 09/09 - Continue current medications - Depakote level this morning = 68 09/10 - Irritable and impulsive on Depakote. Will taper to 500 mg. HS and start trial of Neurontin 100 mg. TID titrating as tolerated. - Will need to monitor renal functions over time 09/11 - Increase Neurontin to 200 mg. TID 09/12 -Continue current medications. Multiple medication changes made over the weekend, and we need to give this time to work. She reports an allergy to clozapine, and is unable to consent to ECT and her current condition. In addition, her boyfriend has stated that he does not think she responded well to ECT in the past, and has not been supportive of it. Additionally, she does not have the resources to continue with outpatient ECT after the initial inpatient course, so it is not a viable option at this time. -Order repeat BMP for tomorrow, to monitor kidney function. -She remains on one-to-one, although staff reports some of her behavioral issues appear volitional. Will ask the one-to-one staff to try watching her from a distance, to see if she is able to tolerate less direct oversight. 09/13 -DC depakote - Increase Neurontin to 200-200-600 mg 09/14 - 09/15 -continue current meds and plan. 09/16 - Neurontin increased to [phone] - Continue other medications as directed. 09/17 -continue current medications. Monitor gait, as she is unsteady today. 09/18 -continue current medications and plan. Patient has had a prolonged hospital course, has failed multiple medication trials, and her symptoms have been very challenging to treat due to her medical comorbidities and lack of robust response, as well as complicating delirium. We are attempting to limit medications that could worsen her overall condition, but that also treat her mental health symptoms. 09/19 - 72-hour notice signed and submitted to staff - expires 09/22 @ 0700. - Continue current medications and treatment plan 09/20 - 72 hour notice still in. Will enlist Alex's support in revoking if possible. If not will consider a 302. 09/21 -Patient rescinded her 72 hour notice. We will file for a 304 commitment, with referral to [facility] for ongoing inpatient treatment. 09/22 - 304 scheduled for tomorrow and has been tentatively accepted at [facility] in [place] - Will continue current meds. I see no need to make changes this close to transfer. 09/23 --304 commitment to [facility], transfer when order signed. (2) Chronic kidney disease (CKD) 08/11 - DC lithium. Will attempt to stabilize mood with atypicals - Collaborate with Dr. Ovalles as needed 08/20 - Restart [place] at 150mg qHS in attempt to stabilize mood and target manic behaviors. Ideally would be used in the short-term until response to Vraylar is more evident; however, patient is known to have responded well in the past. 08/21 - increase losartan to 50mg for persistently elevated BP's 08/23 -Low-dose lithium resumed 08/20/2017 due to acute worsening of psychiatric symptoms thought possibly due to discontinuation of lithium after being on it for many years. [place] trough and BMP ordered for 08/25/2017. 08/25 -[place] trough level 0.3, BUN 30, creatinine 1.77. These are up slightly from 08/10/2017, 1 BUN was 23 and creatinine 1.46. We will continue to monitor closely, ensure adequate hydration, and recheck in 4 days. If kidney function worsens, we will need to discontinue the lithium, as previously discussed with nephrology (Dr. Foreman on 07/25/2017). 08/29 - Labs reviewed: Li level = 0.4. BUN and Cr elevated at 36 and 1.88 respectively. GFR as outpatient progressively decreasing from 43.6 to 38.3. Most recent GFR = 27.5 - Will d/c [place] in favor of Depakote titration 08/31 -Will recheck BMP on 09/04/2017 to monitor kidney function. Continue to encourage fluids. 09/04 - Cr 1.48 and BUN 23, continue to encourage fluids (3) Hypothyroidism 08/11 - TSH WNL and not on levothyroxine. - May have had abnl values in the past related to being on lithium 08/26 - BP elevated. Will increase Cozaar to 75 mg. daily - VS BID 09/03/17 - will add TSH to labs for tomorrow given exopthalamos, h/o hypothyroid and not on levothyroxine 09/04 TSH WNL (4) Hyperlipemia 08/11 - Continue home dose of atorvastatin - FLP done 07/24 08/23 -Patient intermittently refusing cholestyramine; discontinue for now as also on atorvastatin and trying to limit polypharmacy. (5) Hypertension 08/31 -has been persistently hypertensive for the past several days, and intermittently hypertensive throughout her stay. No known history of hypertension, and EKG on 08/19/2017 was normal sinus rhythm. Consider need for hospitalist assistance if hypertension persists. 09/03 - normotensive this AM was hypertensive last evening but may also correlate with values taken at time of agitation, will monitor closely, Temp is not elevated and will check WBC tomorrow, do not think this is related to malignant catatonia at this time 09/04 - BP varies high in the evening and lower in the day, continue to monitor closely 09/07 - Was normotensive for 2 days, and yesterday evening had elevated blood pressure, but again normal this morning. Continue to monitor. Discharge / Aftercare Planning Primary Care Physician: Name: Santos JACKSON Need Fixed Appointment Notes: [address] [place] [address] Psychiatrist: Name: Dr. Hahn [facility] Psych Clinic Appointment Notes: [address] [place] [address] Therapist: Name: Greyson Silverio [facility] Appointment Notes: [address] [place] [address] Breaker Machine Operator: Name: Zulay Macias [facility] Services: Home Health Services: social welfare clerk, home health agency Home Health Agency: [facility] Home Health Specialist: Name: Dr. Demarcus Ovalles, Respite Worker [facility] Phone Number: [phone] Date of Appointment: Oct 21, 2017 Time of Appointment: 1:15pm Visit Code E&M Code: 28894 Inventory Assets Strengths: Support from partner, good relationship with outpatient provider Needs: Clarity with her medications Risk Factors Assessment : Yes /single/: No Higher / Fall in social status: No Access to guns: No Health problems: Yes Mental Health Diagnoses: Yes Substance use disorders: No Previous attempt: Yes Family history of suicide: Yes Previous psychiatric stay: Yes Hopelessness: No Smoker: No Protective Factors Assessment : No Responsible for young children: No Employed: No Stable relationships: Yes Supportive family: Yes Good rapport with provider: Yes Data Vital Signs Last 24 Hrs: Date Time Temp Pulse Resp B/P (MAP) Pulse Ox O2 Delivery O2 Flow Rate FiO2 09/23/17 03:01 104 22 134/66 (88) 95 Room Air 09/22/17 21:08 37.3 101 18 144/72 (96) 09/22/17 09:40 114 16 134/74 (94) 97 Room Air 117 146/69 (94) Problem Qualifiers (1) Chronic kidney disease (CKD): Chronic kidney disease stage: stage 1 Qualified Codes: N18.1 - Chronic kidney disease, stage 1
[2017-09-23] MEDS: MONTELUKAST SOD 10 MG TAB PO SCH (08:49)
[2017-09-23] MEDS: TOCOPHERYL, DL-ALPHA 400 INTER.UNIT CAP PO SCH (08:49)
[2017-09-23] MEDS ORDERED: TRL2 PO ×3 (11:24)
[2017-09-23] MEDS ORDERED: ATV2 PO (11:24)
[2017-09-23] MEDS ORDERED: ZYP20 PO (11:24)
[2017-09-23] MEDS ORDERED: NRN400 PO (11:24)
[2017-09-23] MEDS ORDERED: PROP20TA67 PO (11:24)
[2017-09-23] MEDS ORDERED: ATV1 PO (11:24)
[2017-09-23] MEDS ORDERED: NRN800 PO (11:24)
--- NOTE | 2017-09-23 11:40 | Discharge Instructions ---
Discharge Information Report Includes Report will include the: Discharge Instructions & Summary Admission Admission Date / Time: Aug 10, 2017 at 17:41 Reason for Admission: Schizoaffective Disorder Discharge Discharge Diagnosis / Problem: Schizoaffective disorder, manic Condition at Discharge: Poor Discharge Goals Goal(s): Decrease discomfort, Improve disease control Activity Recommendations Activity Limitations: resume your previous activity . Instructions / Follow-Up Instructions / Follow-Up . SPECIAL CARE INSTRUCTIONS: 1. Follow through with your scheduled aftercare appointments. If unable to keep an appointment, please call to reschedule. 2. Take your medication only as prescribed. Medication should not be changed or stopped without the approval of your doctor. In the event of worsening symptoms or concerns about side effects, contact your doctor immediately. 3. Utilize new healthy coping skills, anger management skills, and stress management skills learned during your hospitalization. Journal feelings and process them with a support person. Identify stressors or situations that may result in relapse, deterioration or inappropriate behaviors and develop a plan to deal with those issues. 4. If your coping skills are ineffective and you are in crisis, contact your outpatient providers for direction. If unable to reach your providers, please call the CAN HELP LINE AT or go to the closest Emergency Room. 5. Avoid alcohol and un-prescribed drugs. 6. You have been provided with the Mental Health Advance Directives Pamphlet for your review. AFTERCARE APPOINTMENTS: * Please call your insurance company prior to your scheduled appointment to confirm your aftercare providers are covered. Take your insurance information to your appointments. . Discharge / Aftercare Planning Primary Care Physician: Name: Santos JACKSON [facility] Appointment Notes: [address] [place] [address] Psychiatrist: Name: Dr. Hahn, [facility] Appointment Notes: [address] [place] [address] Therapist: Name Of Therapist: Greyson Silverio [facility] Appointment Comments: [address] [place] [address] [employer] Starter [employer] Ranger: Name: Zulay Macias Home Health Services: Home Health Services: community mental health social worker, home health agency Home Health Agency: [facility] Specialist: Name: Dr. Demarcus Ovalles, Health Information Internship [facility] [place] Phone Number: [phone] Date of Appointment: Oct 21, 2017 Time of Appointment: 1:15pm . Follow-Up Care Plan for Follow-Up Care: The patient is being transferred by ambulance to [facility] for more inpatient mental health treatment Current Hospital Diet Patient's current hospital diet: Regular Diet Discharge Diet Recommended Diet: Regular Diet Procedures Procedures Performed: No Pending Studies Pending Studies at Discharge: No Medical Emergencies . Who to Call and When: Medical Emergencies: For questions or emergencies related to your hospital stay, please contact the Inpatient Behavioral Health Unit at [phone]. A assessment clinician is on-call 22/11 for the Behavioral Health Unit for emergencies At any time you feel your situation is an emergency, you may also call 911 immediately. . Non-Emergent Contact Non-Emergency issues call your: Psychiatrist, Therapist Advance Directives Existing Advance Directive: No Do You Have an Existing Mental: No Existing Living Will: No Existing Power of Traffic Reporter: No Advance Directives Info Given: To Pt/S.O. Advance Directives Reason: Declines as Mental Health Visit. Discharge Summary Admission HPI Per the Admitting provider: The patient is a 67-year-old woman well-known to our unit for many hospitalizations over the last several decades. She was just on our unit and discharged 3 days ago. She was admitted due to what appeared to be manic symptoms in the setting of having her lithium reduced because of concerns for her renal impairment and age. During her stay she was somewhat difficult to manage, having consistent difficulties with sleep and delusions, hallucinations. She was discharged on lithium, Risperdal, Navane, as needed Haldol and Klonopin in addition to her medical medications. There was apparently some confusion about medications at the time of discharge and she was placed back on Zoloft which we had discontinued due to concerns for stefan. Her Klonopin also was cut in half. These 2 things may have also complicated her picture. The patient was able to see her outpatient provider, on Tuesday of this week.[place], I have spoken with Dr. Davis who said the patient was appearing quite decompensated at that time. The patient had just come from the emergency department where she has had a visit for abdominal pain. The patient' s partner Alex told Dr. Hahn that he had given her 3 doses of Haldol the day she was discharged on Tuesday between the hours of 3 PM and midnight but she still did not sleep. The patient was admitted to our unit last evening. Nursing reports that she slept only 4 hours and was in need of constant redirection. The patient thought that she was birthing different birds and had been seen sitting on a chair in a birthing position. With a as needed Haldol and Vistaril she was eventually able to get 4 hours of sleep but is up early today. At the time I see her she is calm and cooperative. She does not have her hearing aid in and so we communicate in writing and she reads lips. She says she does not know what happened that she could not sleep other than to say that "my body did not need it". When asked if she feels manic or depressed, she says that she may be feels a little depressed but denies suicidality. When asked about hallucinations she is not sure and moves her hand back and forth indicating may be. Her abdomen is quite bloated in appearance and she had been having complaints of constipation. She says she did move her bowels yesterday but it was all liquid. It is her belief that Alex did not want her to have any Haldol and that she did not have any, which is in contrast to the reports to her outpatient psychiatrist. She does have multiple physical complaints today including right rib and low back pain, abdominal bloating, bilateral leg achiness that makes her feel unstable on her feet. Hospital Course (1) Bipolar 1 disorder with mixed features 08/11 - Increase Klonopin back to 1.5 mg HS to target sleep - Will DC lithium at this point due to concerns for her age and renal status - Will increase Risperdal to 1 mg. AM and 7 mg HS - Will DC navane to reduce polypharmacy - Continue prn haldol and increase to q 4 hr prn - Will have nursing attempt to preauth Vraylar to trial - DC Zoloft - Q 15 min checks for safety - Encourage participation in group and individual counseling as tolerated - Coordinate with current providers - had FLP and FBS on 07/23/17. All WNL with the exception of triglycerides of 151 and FBS 129 08/12 - Vraylar trial when Alex can bring it in - Start 1.5 mg daily increasing to 3 mg daily the following day. - Will taper risperdal at the same time 08/13 -Vraylar was actually started at 3mg hs on 08/12 since only 3mg capsules for supply. given s/e profile will move vraylar to earlier in day, will maintain pt at 3mg for time being given long half life of med and long half life of active metabolite tapering risperdal maintained at 1mg am and 3mg hs for now since just lowered by 4mg continue prn haldol doses 08/14 -maintained vraylar 3mg qday -maintained risperdal 1mg am and 3mg hs for now, aim to wean risperdal further as adjusting to vraylar over next days 08/15 - Continue Vraylar 3mg daily - Plan to continue to taper risperdal, however patient appears to be displaying more restlessness today in regard to manic behaviors and requiring redirection from staff and prn Haldol more frequently. - Attempt to determine proximity to baseline with visits from her fiance 08/16 - Vraylar increased to 6mg daily 08/17 - Discontinue risperidone due to inefficacy, and increase Haldol prn to 10mg. - Resume trihexphenidyl at 1mg daily and monitor restlessness as able. Challenging to know if her agitation is due to akathisia, anxiety, psychosis, or stefna, and she is a limited historian. 08/18 - DC haldol due to no response - Start Thorazine 25 mg. q 2 hr prn during the day and 100 mg. scheduled at HS 08/19 - Increase thorazine to 50 q 3 hr prn and 200 mg. HS - Try to maintain good sleep wake cycles - EKG today 08/20 - 150mg of [place] to be added this evening to stabilize mood in interim of response to Vraylar, level in 5 days to monitor for possible toxicity. - Increase Klonopin to 2.5mg qHS to better target sleep. Pt remains on 1-to- 1 observation currently, continue safety precautions for fall risk with medication changes - Encourage sleep as able, with target to keep patient in appropriate sleep- wake cycle. Daytime naps are limited in length. 08/21 - Li restarted yesterday which is not expected to demonstrate a quick benefit but in deference to long standing treatment and increased risk for ongoing mood instability off the medication. given renal impairment, she will need more frequent monitoring but the potential benefit is felt to outweigh the risk given the severity of her underlying mental health d/o. I would suggest maintaining this very low dose and checking a level on the (which I ordered today) before further titration. - sleeping more in last 24h getting high dose Thorazine which, unfortunately , may also be making her delirious. I am uncertain if she has been treated with high dose seroquel previously but that could be considered as an alternative if she struggles to tolerate the Thorazine moving forward. - will increase melatonin to 9mg qhs for additional sleep benefit with minimal risk for worsening delirium. could also consider temporarily maximizing ambien at 10mg but will defer for today 2/2 delirium as sleep is presently improving which will hopefully show antimanic effect. 08/22 - Continue on Thorazine, Vraylar, [place], and Klonopin. [place] level ordered for 08/25. - Will attempt to develop plan to decrease low-dose polypharmacy; Pt's significant other hesitant for other medication changes and is unwilling for ECT at this time - Continue delirium protocol with encouraging appropriate sleep/wake cycles 08/23 -Continue environmental and behavioral interventions for delirium, reviewed her medications and attempting to eliminate unnecessary medications ( cholestyramine discontinued as she was refusing it and not acutely important). -Try to consolidate sleep at night; continue melatonin 9 mg, clonazepam 2.5 mg, zolpidem 5 mg, and chlorpromazine 200 mg at bedtime. -Continue Vraylar 6 mg every morning (started 08/12/2017). -Continue trihexyphenidyl 1 mg every morning for akathisia. -[place] 150 mg at bedtime restarted 08/20/2017; level and BMP ordered for . 08/24 1. DC Vraylar- Has not shown any improvement since added 2. DC Thorazine- No significant improvement and contributing to anticholinergic load 3. DC Artane- Difficult to tell whether she is restless or whether restlessness is due to stefan, and concern for anticholinergic load 4. DC Ambien- Can contribute to confusion, especially in women 5. DC Vistaril- due to concerns for anticholinergic load 6. Retrial Depakote ER 500 mg. HS titrated to therapeutic level. Has been on this in the past but reports from pt and Alex provide different memories of it. 7. Trial Zyprexa- Will start low with 5 mg due to long half life of Vraylar , to target stefan 8. Continue lithium low dose, re-added due to concerns that withdrawing it after she has been on it for years has contributed to deterioration. Caution to renal status 9. Continue Klonopin 10. Continue Tramadol prn, but have encouraged nursing to use it only sparingly. 08/25 -Increase olanzapine to 7.5mg HS and prn to 5mg. -[place] trough 0.3; creatinine and BUN up slightly at 30 and 1.77. Continue to encourage adequate hydration, and will recheck lithium trough and BMP in 4 days. -Continue Depakote 500 mg nightly, and check a Depakote trough on 08/29/2017. -Consideration for ECT stefan, psychosis, and delirium do not improve. 08/26 -Increase HS zyprexa to 10 mg. continue prn's - Continue to encourage hydration - Continue depakote with level 08/29 - Will obtain CBC and UA to rule out UTI, dyscrasia - Continue to consider ECT if no improvement 08/27 --continue Zyprexa titration to 15 mg po qhs, d/c prn doses as no apparently benefit; given longstanding rx with a typical antipsychotic (Navane) and some response to Haldol prn, trial of Trilafon prn agitation. --restlessness appears to be related to catatonia in my opinion rather than akathisia. That said, will offer prn beta brad as trial for comfort, BP has been elevated anyway, would prefer to implement this rather than increasing Cozaar acutely --no clear benefit from hs clonazepam and treatment of choice for catatonia is lorazepam so taper Klonopin in favor of Ativan TID + prn. Remains on 1-on-1 for falls precautions. 08/28 --continue Zyprexa titration to 20 mg po qhs --may use propranolol TID prn --replace HS Klonopin with 2 mg Ativan as appears more effective 08/29 - Continue Zyprexa 20mg qHS, propranolol TID prn, Ativan 2mg qHS, and prn Trilafon - Recent labs reviewed: Li level = 0.4; Depakote level = 27 - BUN elevated at 36, creatinine elevated at 1.88. GFR = 27.5. - Due to progressive worsening of kidney function and apparent improvement with addition of other agents, will discontinue [place] at this time. - Increase Depakote to 750mg tonight. Depakote trough level ordered for 2017. 08/30 - Continue current meds with the exception of stopping AM ativan due to sedation, and concerns for fall risk 08/31 -Continue current medications, including Lorazepam 1 mg q. 1200 and 1700 hrs. and 2 mg at bedtime, Depakote 750 mg nightly, olanzapine 20 mg nightly, propanolol 20 mg 3 times daily as needed for restlessness, perphenazine 4 mg as needed for agitation, and melatonin 9 mg at bedtime. -Continue one-to-one monitoring. 09/01 - Continue current meds and plan including 1:1 09/02 - Add Trilafon 4 mg. TID 09/03 - increase trilafon to and pending VPA level and BMP on 09/04, will add CBC due to BRBPR yesterday due to hemrrhoids, and TSH (see below). will watch her sedation and if sedated will lower ativan 09/04/17 - patient is not showing tangible gains from this provider's review of chart and observation over last 2 days. Nursing staff felt she was less pervasively agitated on 09/03, and but she seems to continue to demonstrate pattern of delirium (waxing and waning mental state with fragmented sleep, hallucinations and waking in anxious state disoriented, labile) The inpatient team has done a heroic job of caring for this woman who has very complicated and refractory primary mental health condition and what appears to be superimposed delirium her prognosis is poor. She did best on lithium as a component of her treatment to date. Review of record is that patient's kidney function (creatinine and BUN) worsened on lithium earlier this month, but at 150mg/hs for 7days she had two of her best days inpatient on 08/29 (date of discontinuation), and 08/30 (day after discontinuation) even though her level was only 0.4 on 08/29. I will discuss with primary team as there are very serious risks of returning to lithium. - it is not clear if remeron provided an improvement for patient last night, or it was the last of a series of several sedating medications. Although it is optimal in delirium to keep up in the day and sleep at night, given she is only getting 1-4hours/night it is hard to justify waking her only for her to be agitated in the day today. Will discuss with staff and attempt to keep her up to a degree possible with light cues and stimulus in the day and lower stimulus at night - continue trilafon for now scheduled with PRN, she did require less in the last 24hours than the preceding day but it remains to be see if that is improvement - increase Depakote from 750 (level 57, free level pending) to 1000mg tonight repeat level ordered for 09/09/17 AM - she is anemic, stably so compared to 07/2017, but will draw ferritin, transferin and transferrin Saturation and TIBC to r/o iron deficiency as contributing to RLS as she is anemic, would replete with oral iron if this returns low, will discus with primary team as vitamin E may impair the response for her iron deficiency anemia - consider MVI in place of vitamin E (as not to over- dose with time) - avoid anticholinergics - she remains on benzodiazepines at this time (combination of scheduled and prns getting 5-6mg/day in the last 2 days), and although there was prior speculation of agitated catatonia in the chart it is not clear to me that the current prn doses are meaningfully helpful and can worsen delirium. Will maintain scheduled ativan 1mg 12, 1mg 1700 and 2mg/hs but stop the prn doses, and prefer trilafon prn psychosis/agitation - will not write for standing dose of remeron but if staff call again this evening after scheduled medications and patient is not sleeping would consider again giving 7.5mg remeron with caution monitoring for oversedation and future mood elevation, and watch RLS - will ask staff to get a clock drawing for goal of serial clock drawings overtime can assist in tracking delirium recovery 09/05 -Continue Depakote 1000 mg nightly, with a repeat trough level on 09/09/2017. -Continue olanzapine 20 mg nightly, perphenazine 4 mg twice daily and 8 mg nightly, and decrease Lorazepam to 1 mg q. 1700 and 2 mg nightly (discontinuing the 1 mg dose at noon). Continue perphenazine and propranolol as needed's. 09/06 - AM sedation, but poor sleep at night. Shift trilafon to 4 mg. at 1400 and 12 mg. HS 09/07 -Continue current medications and one-to-one supervision, private room, and fall precautions. 09/08 - Continue current plan and meds. 09/09 - Continue current medications - Depakote level this morning = 68 09/10 - Irritable and impulsive on Depakote. Will taper to 500 mg. HS and start trial of Neurontin 100 mg. TID titrating as tolerated. - Will need to monitor renal functions over time 09/11 - Increase Neurontin to 200 mg. TID 09/12 -Continue current medications. Multiple medication changes made over the weekend, and we need to give this time to work. She reports an allergy to clozapine, and is unable to consent to ECT and her current condition. In addition, her boyfriend has stated that he does not think she responded well to ECT in the past, and has not been supportive of it. Additionally, she does not have the resources to continue with outpatient ECT after the initial inpatient course, so it is not a viable option at this time. -Order repeat BMP for tomorrow, to monitor kidney function. -She remains on one-to-one, although staff reports some of her behavioral issues appear volitional. Will ask the one-to-one staff to try watching her from a distance, to see if she is able to tolerate less direct oversight. 09/13 -DC depakote - Increase Neurontin to 200-200-600 mg 09/14 - 09/15 -continue current meds and plan. 09/16 - Neurontin increased to [phone] - Continue other medications as directed. 09/17 -continue current medications. Monitor gait, as she is unsteady today. 09/18 -continue current medications and plan. Patient has had a prolonged hospital course, has failed multiple medication trials, and her symptoms have been very challenging to treat due to her medical comorbidities and lack of robust response, as well as complicating delirium. We are attempting to limit medications that could worsen her overall condition, but that also treat her mental health symptoms. 09/19 - 72-hour notice signed and submitted to staff - expires 09/22 @ 0700. - Continue current medications and treatment plan 09/20 - 72 hour notice still in. Will enlist Alex's support in revoking if possible. If not will consider a 302. 09/21 -Patient rescinded her 72 hour notice. We will file for a 304 commitment, with referral to [facility] for ongoing inpatient treatment. 09/22 - 304 scheduled for tomorrow and has been tentatively accepted at [facility] in [place] - Will continue current meds. I see no need to make changes this close to transfer. 09/23 --304 commitment to [facility], transfer when order signed. (2) Chronic kidney disease (CKD) 08/11 - DC lithium. Will attempt to stabilize mood with atypicals - Collaborate with Dr. Ovalles as needed 08/20 - Restart [place] at 150mg qHS in attempt to stabilize mood and target manic behaviors. Ideally would be used in the short-term until response to Vraylar is more evident; however, patient is known to have responded well in the past. 08/21 - increase losartan to 50mg for persistently elevated BP's 08/23 -Low-dose lithium resumed 08/20/2017 due to acute worsening of psychiatric symptoms thought possibly due to discontinuation of lithium after being on it for many years. [place] trough and BMP ordered for 08/25/2017. 08/25 -[place] trough level 0.3, BUN 30, creatinine 1.77. These are up slightly from 08/10/2017, 1 BUN was 23 and creatinine 1.46. We will continue to monitor closely, ensure adequate hydration, and recheck in 4 days. If kidney function worsens, we will need to discontinue the lithium, as previously discussed with nephrology (Dr. Foreman on 07/25/2017). 08/29 - Labs reviewed: Li level = 0.4. BUN and Cr elevated at 36 and 1.88 respectively. GFR as outpatient progressively decreasing from 43.6 to 38.3. Most recent GFR = 27.5 - Will d/c [place] in favor of Depakote titration 08/31 -Will recheck BMP on 09/04/2017 to monitor kidney function. Continue to encourage fluids. 5/6 - Cr 1.48 and BUN 23, continue to encourage fluids (3) Hypothyroidism 08/11 - TSH WNL and not on levothyroxine. - May have had abnl values in the past related to being on lithium 08/26 - BP elevated. Will increase Cozaar to 75 mg. daily - VS BID 09/03/17 - will add TSH to labs for tomorrow given exopthalamos, h/o hypothyroid and not on levothyroxine 09/04 TSH WNL (4) Hyperlipemia 08/11 - Continue home dose of atorvastatin - FLP done 07/24 08/23 -Patient intermittently refusing cholestyramine; discontinue for now as also on atorvastatin and trying to limit polypharmacy. (5) Hypertension 08/31 -has been persistently hypertensive for the past several days, and intermittently hypertensive throughout her stay. No known history of hypertension, and EKG on 08/19/2017 was normal sinus rhythm. Consider need for hospitalist assistance if hypertension persists. 09/03 - normotensive this AM was hypertensive last evening but may also correlate with values taken at time of agitation, will monitor closely, Temp is not elevated and will check WBC tomorrow, do not think this is related to malignant catatonia at this time 09/04 - BP varies high in the evening and lower in the day, continue to monitor closely 09/07 - Was normotensive for 2 days, and yesterday evening had elevated blood pressure, but again normal this morning. Continue to monitor. Risk Factors Assessment : Yes /single/: No Higher / Fall in social status: No Access to guns: No Health problems: Yes Mental Health Diagnoses: Yes Substance use disorders: No Previous attempt: Yes Family history of suicide: Yes Previous psychiatric stay: Yes Hopelessness: No Smoker: No Protective Factors Assessment : No Responsible for young children: No Employed: No Stable relationships: Yes Supportive family: Yes Good rapport with provider: Yes Day of Discharge Assessment COURSE OF HOSPITALIZATION: The patient has been on her unit for 44 days. This is her second hospitalization in short order, having been with us from July 22 - August 07, being readmitted on August 10. For complete admission information I refer you to the attached history and physical. During her stay, her symptoms were very difficult to manage. She went through a series of medication changes. She had long been stabilized on lithium and Navane, but prior to her first hospitalization, we did try restarting a small dose of lithium lithium had been decreased due to concerns for chronic kidney disease. This set in motion this. Of destabilization. But this was unaffected and there was still concern for her renal values. We gave her a trial of Depakote to which she seem to have some initial response although it was not prolonged and ultimately she seemed more irritable on this and so it was discontinued in favor of a trial of Neurontin. Although Neurontin is a very week off label mood stabilizer for her diagnosis, the literature indicates there is a small subpopulation who do well on this however she had quite a variable course, some days good, some days bad. We have continued the Neurontin to date. She had also been tried on Risperdal which did not prove beneficial, as well as Haldol, Thorazine, and Artane for possible akathisia. Although she has had times when her mentation seemed clear, her communications more organized, there was never a sustained period of improvement. Complicating this is the fact that she has severe hearing loss, wears a hearing aid. For a period of time her hearing aid was absent as she had been taking it out throwing it on the floor and it was broken. Her fianc Alex had to remove it and take it out for repair. We did use an amplification device here in the hospital which seemed at times to be helpful. She also does read lips relatively well. She has been with her partner Alex for decades and they work well together when he is they are stable. Alex has been very attentive during her stay, visiting regularly although there were times when it was very stressful for him to see her in this decompensated condition and he limited his exposure. She has had bizarre behaviors at times, for example dropping herself to the floor for unknown reasons and refusing to get up. During her more aggressive time she would grab staff for their belongings were make threatening actions but never actually hit or hurt anyone. We did have her on one-to-one observation through the vast majority of her stay due to concerns for her impulsive behaviors and unsteady gait. She did experience one fall as she attempted to sit on the bed and missed the bed but there were no injuries noted. She has been with us on a voluntary basis although in the week or 2 prior to discharge, was talking more about wanting to go home. At one point she did sign a 72 hour notice, but was willing to revoke this and stay. It was felt that it was necessary to move forward with 304 for further inpatient care which was accomplished today. We are awaiting the signed court order from the county court judge in order to be able to transport. It was universally felt that the patient was not ready for discharge , as her condition has been variable and she is not reality based in her thinking, combined with impulsive behaviors makes her at risk for harm to herself and others. She has at times during her stay admitted to hearing voices and that others has denied that. She also has per relatively consistently admitted to suicidal thinking, but denies any plan or intent. She pretty consistently has reported racing thoughts and her sleep has generally been impaired, some nights getting 0 hours of sleep and others getting 4 or 5. She has required assistance from the staff to manage her ADLs including showering and eating. When left to her own devices with her meal tray she generally tends to mix everything together, play and never really achieves the goal of eating her meal. During her 303 hearing today, she was somewhat agitated, wanting to go home to gather her belongings before she went to the next facility but was redirectable. Her partner Alex was present today and has participated in decision making. TRANSITION OF CARE: The patient will be transported to [facility] by ambulance today. Final decisions about medications and aftercare appointments will be completed by the receiving facility DATE OF DISCHARGE ASSESSMENT: Today the patient is somewhat agitated and demanding. She is talking loudly, at times yelling. She is aware that her 304 has been granted and that she will be going to [place] to [facility]. She is generally accepting of this but quickly becomes confused and starts talking about getting an apartment what she gets to [place]. Today she does not seem to be responding to internal stimuli although has a somewhat rapid and rambling conversation. Today she is appropriately dressed and groomed with the assistance of staff. Speech is inarticulate secondary to her severe hearing loss. She is wearing the amplification device today. Eye contact is good, she reads lips. Affect is irritable. Thoughts are tangential, disorganized. Recent and remote memory is impaired due to her condition. Intelligence is estimated to be average. Insight and judgment continues to be impaired. Laboratory Test 08/25/17 06:39 08/26/17 00:00 08/26/17 10:15 08/29/17 09:07 [place] Level 0.3 0.4 Urine Color YELLOW Urine Appearance CLEAR Urine pH 6.0 Urine Specific [place] 1.009 Urine Protein 1+ Urine Glucose (UA) NEG Urine Ketones NEG Urine Occult Blood NEG Urine Nitrite NEG Urine Bilirubin NEG Urine Urobilinogen NEG Urine Leukocyte Esterase MODERATE Urine WBC (Auto) 1-5 Urine RBC (Auto) 0-4 Urine Hyaline Casts (Auto) 0 Urine Epithelial Cells (Auto) 5-10 Urine Bacteria (Auto) NEG White Blood Count 4.90 Red Blood Count 4.03 Hemoglobin 11.8 Hematocrit 36.1 Mean Corpuscular Volume 89.6 Mean Corpuscular Hemoglobin 29.3 Mean Corpuscular Hemoglobin Concent 32.7 RDW Standard Deviation 48.5 RDW Coefficient of Variation 14.7 Platelet Count 213 Mean Platelet Volume 9.7 Test 09/04/17 09:09 09/09/17 09:20 09/13/17 06:58 White Blood Count 4.03 Red Blood Count 3.43 Hemoglobin 10.0 Hematocrit 30.6 Mean Corpuscular Volume 89.2 Mean Corpuscular Hemoglobin 29.2 Mean Corpuscular Hemoglobin Concent 32.7 Platelet Count 171 Mean Platelet Volume 9.6 Neutrophils (%) (Auto) 69.8 Lymphocytes (%) (Auto) 18.6 Monocytes (%) (Auto) 8.7 Eosinophils (%) (Auto) 1.5 Basophils (%) (Auto) 0.2 Neutrophils # (Auto) 2.81 Lymphocytes # (Auto) 0.75 Monocytes # (Auto) 0.35 Eosinophils # (Auto) 0.06 Basophils # (Auto) 0.01 RDW Standard Deviation 46.9 RDW Coefficient of Variation 14.3 Immature Granulocyte % (Auto) 1.2 Immature Granulocyte # (Auto) 0.05 Miscellaneous Test REPORT Sodium Level 139 137 Potassium Level 4.9 4.1 Chloride Level 104 102 Carbon Dioxide Level 29 30 Anion Gap 6.0 5.0 Blood Urea Nitrogen 23 27 Creatinine 1.48 1.41 Est Creatinine Clear Calc Drug Dose 30.7 32.2 Estimated GFR () 42.6 45.2 Estimated GFR (Non- 36.8 39.0 BUN/Creatinine Ratio 15.3 19.3 Random Glucose 194 132 Calcium Level 9.0 8.9 Iron Level 64 Total Iron Binding Capacity 304 Transferrin 261 Transferrin % Saturation 17 Ferritin 156.5 Thyroid Stimulating Hormone (TSH) 1.710 Valproic Acid Level 57 68 Chemistry Specimen Hemolysis Total Time Total Time Spent (min): Greater than 30 minutes Total Time Included: examination of the patient, discharge planning, medication reconciliation, communication with other providers Tobacco Cessation at Discharge Smoking Status: Former Smoker FDA approved Prescription: non-smoker Antipsychotic Meds Rationale The patient is on 2 antipsychotics, one typical, 1 atypical. It is been necessary to have 2 agents to manage her condition, but ultimately would look for the outpatient provider to work toward monotherapy. Problem Qualifiers (1) Chronic kidney disease (CKD): Chronic kidney disease stage: stage 1 Qualified Codes: N18.1 - Chronic kidney disease, stage 1
[2017-09-23] MEDS: PERPHENAZINE 2 MG TAB PO SCH (13:50)
[2017-09-23] MEDS ORDERED: LORAZEPAM 0.5 MG TAB PO STA (14:09)
[2017-09-23] MEDS ORDERED: LORAZEPAM 0.5 MG TAB ONE (14:10)
[2017-09-23 14:29] VITALS: BP 126/72; PULSE 98
[2017-09-23 15:32] VITALS: BP 126/72; PULSE 98; TEMP 37.3; O2SAT 95
[2017-09-23] MEDS: LORAZEPAM 1 MG TAB PO SCH (16:33)
[2017-09-27] MEDS ORDERED: DESTROY THIS MEDICATION ONE (09:00)
== END 2017-09-23 18:00 | DRG 885 ==
LOC: C.EDB 12:15 → C.MHU 17:41
PROVIDERS: ADMIT Psychiatry & Neurology Psychiatry; ATTEND Psychiatry & Neurology Psychiatry
DX: F31.60 Bipolar disorder, current episode mixed, unspecified (principal); R45.851 Suicidal ideations; F25.0 Schizoaffective disorder, bipolar type; G47.00 Insomnia, unspecified; R14.0 Abdominal distension (gaseous); R10.9 Unspecified abdominal pain; F06.1 Catatonic disorder due to known physiological condition; E11.22 Type 2 diabetes mellitus with diabetic chronic kidney disease; I12.9 Hypertensive chronic kidney disease with stage 1 through stage 4 chronic kidney disease, or unspecified chronic kidney disease; N18.1 Chronic kidney disease, stage 1; E78.5 Hyperlipidemia, unspecified; K21.9 Gastro-esophageal reflux disease without esophagitis; H91.90 Unspecified hearing loss, unspecified ear; Z79.899 Other long term (current) drug therapy; Z91.81 History of falling; Z87.81 Personal history of (healed) traumatic fracture; Z91.5 Personal history of self-harm; Z86.39 Personal history of other endocrine, nutritional and metabolic disease; Z87.891 Personal history of nicotine dependence; Z88.6 Allergy status to analgesic agent; Z88.8 Allergy status to other drugs, medicaments and biological substances; Z88.5 Allergy status to narcotic agent; Z88.0 Allergy status to penicillin; Z88.2 Allergy status to sulfonamides; Z81.8 Family history of other mental and behavioral disorders

== ENCOUNTER 2017-11-17 11:49 | Inpatient (IN) | payer OTHER ==
[2017-11-17] VITALS (8 sets, daily range): BP systolic 118–153; BP diastolic 50–69; PULSE 70–84; TEMP 36.5; O2SAT 96–100; Ht 152.4 cm; Wt 60.2 kg
[~2017-11-17] VITALS: Ht 152.4 cm; Wt 60.2 kg
[~2017-11-17 11:49] MED LIST changes: +ATV1 PO; +ATV2 PO; -CLON0.5T3 PO; -HLD5 PO; -LTHCR300 PO; +NRN400 PO; +NRN800 PO; -ONDA4TAB46 PO; +PROP20TA67 PO; -QSTP PO; -RSP1 PO; -RSP3 PO; -SERT1TAB68 PO; -THIO10CA PO; -TRIH2TAB3 PO; +TRL2 PO; -ZOLP5TAB6 PO; +ZYP20 PO; -[UNRECOGNIZED DRUG - CODE] PO
[2017-11-17 13:02] LABS: HEMATOCRIT 32.4 % (37-47); HEMOGLOBIN 10.5 g/dL (12.0-16.0); IG# 0.01 K/uL (0.00-0.02); LYMPH % 9.3 %; LYMPH ABS # 0.53 K/uL (1.2-3.4); MEAN CELL VOLUME 90.8 fL (80-100); MEAN CORPUSCULAR HEMOGLOBIN 29.4 pg (25-34); MEAN CORPUSCULAR HGB CONC 32.4 g/dl (32-36); MEAN PLATELET VOLUME 9.7 fL (7.4-10.4); MONO % 5.4 %; MONO ABS # 0.31 K/uL (0.11-0.59); NEUT % 85.1 %; NEUT ABS # 4.86 K/uL (1.4-6.5); PLATELET COUNT 215 K/uL (130-400); RED CELL DISTRIBUTION WIDTH CV 14.9 % (11.5-14.5); RED CELL DISTRIBUTION WIDTH SD 49.4 fL (36.4-46.3); WHITE BLOOD COUNT 5.71 K/uL (4.8-10.8)
[2017-11-17 13:23] LABS: ALBUMIN 3.5 gm/dl (3.4-5.0); ALKALINE PHOSPHATASE 99 U/L (45-117); ALT/SGPT 33 U/L (12-78); AST/SGOT 19 U/L (15-37); BLOOD UREA NITROGEN 18 mg/dl (7-18); CARBON DIOXIDE 27 mmol/L (21-32); CREATININE 1.23 mg/dl (0.60-1.20); GLUCOSE 139 mg/dl (70-99); LIPASE 128 U/L (73-393); POTASSIUM 3.8 mmol/L (3.5-5.1); SODIUM 146 mmol/L (136-145); TOTAL PROTEIN 7.1 gm/dl (6.4-8.2)
[2017-11-17] MEDS ORDERED: PALI156I IM (13:41)
[2017-11-17] MEDS ORDERED: BISA-16 PO (13:41)
[2017-11-17] MEDS ORDERED: TRAZ50TA35 PO (13:41)
[2017-11-17] MEDS ORDERED: LAMO25TA PO (13:41)
[2017-11-17] MEDS ORDERED: OMEP40CA41 PO (13:41)
[2017-11-17] MEDS ORDERED: MONT1TAB3 PO (13:41)
[2017-11-17] MEDS ORDERED: KLN/5 PO (13:41)
[2017-11-17] MEDS ORDERED: OLAN1TAB50 PO (13:41)
[2017-11-17] MEDS ORDERED: OMEG10007 PO (13:41)
[2017-11-17] MEDS ORDERED: ACET-1693 PO (13:41)
[2017-11-17] MEDS ORDERED: CZR25 PO (13:41)
[2017-11-17] MEDS ORDERED: LAMO100T16 PO (13:41)
[2017-11-17] MEDS ORDERED: MULT-513 PO (13:41)
[2017-11-17] MEDS ORDERED: AMLO5TAB3 PO (13:41)
[2017-11-17] MEDS ORDERED: ATOR10TA82 PO (13:41)
--- NOTE | 2017-11-17 13:46 | DIAGNOSTIC IMAGING REPORT ---
CHEST ONE VIEW PORTABLE HISTORY: Atypical CHEST PAIN COMPARISON: Chest 01/14/2017. FINDINGS: There are low lung volumes. Patient is slightly rotated on this study. The heart is mildly enlarged. There is mild perihilar interstitial and vascular thickening. This suggests mild congestive change. No focal lung consolidations to suggest pneumonia. No pneumothorax. No pleural effusions. IMPRESSION: Cardiomegaly with mild congestive change. This has progressed in the interval. Electronically signed by: Ta Ochoa M.D. 11/17/2017 1:44 PM Dictated Date/Time: 11/17/2017 1:43 PM
--- NOTE | 2017-11-17 13:53 | Pharmacy Progress Note ---
ED Pharmacist Progress Note Date of Service: Nov 17, 2017. Patient took week's worth of medications from weekly pill container. At request of Dr. Deleon attempted to determine most likely pills ingested. Cross referenced discharge med list provided from family member from [facility] 11/01/17 and recent fill history from Dr. Gorman. Likely medications ingested and total ingested if 7 days worth include trazodone , instructions 25 mg HS but had 50 mg tablets (175-350 mg), Amlodipine (not recently filled but on discharge instructions, 5 mg daily) (35 mg), Clonazepam 0.5 mg BID (7 mg), Lamotrigine 125 mg BID (has both 100 mg and 25 mg tablets) ( 875mg), Losartan 25 mg daily (175 mg), olanzapine 10 mg BID (140 mg), omeprazole 40 mg before breakfast (280 mg), fish oil 1000 mg BIDM ([id number]), montelukast 10 mg (70 mg), multivitamin + mineral. Patient also has tylenol and bisacodyl PRN on med list. Patient may have had an paliperidone injection ( invega sustenna) on 11/08. Called poison control to discuss patient, last known well was at 0300, unknown time of ingestion. Sat O2 100 on oxygen, BP was 177/85 , HR 96. Discussed main concern for QRS/QTc prolongation with trazodone, olanzapine,paliperidone, lamictal levels should be trended if available for clear peak and decline q6H- this is a send out lab may not be able to get, patient may experience agitation, tremors, seizures, tachycardia for which benzos can be used without ceiling (1-2 mg q5-10 minutes) if needed, supportive measures, intubate if not supporting airway if pressors needed norepi/epi suggested first line. BP meds amlodipine has a longer half life than losartan and expected to be active longer. They also recommended getting aspirin, alcohol , tylenol levels which had already been obtained. Relayed information to Dr. Deleon. Medications discussed were best guess medication based on the medication list provided from family and fill history. Additional medications were on our medication list from August that were not on list/filled recently including lorazepam, perphenazine, gabapentin and propranolol prn for restlessness. Patient has also had other medications filled in July/March that were not on either list including, Vraylar (cariprazine), haloperidol 5 mg, trihexyphen 2 mg , thiothixene 10 mg, thiothixene 5 mg capsules reisperidone 1 mg tablets, [place] carb 450 mg ER, zolipidem 5 mg tabs and sertraline 100 mg tabs- these meds were not discussed with poison control as they did not match up with current med list provided/recent fill.
[2017-11-17 15:30] LABS: CKMB < 1.0 ng/ml (0.5-3.6)
[2017-11-17] MEDS ORDERED: ICU PROTOCOL FOR HYPERGLYCEMIA PRN (15:30)
--- NOTE | 2017-11-17 15:34 | History and Physical ---
History & Physical Date & Time of Service: Nov 17, 2017 at 14:46 Chief Complaint: Unresponsive, R/O overdose Primary Care Physician: Santos Galeano III, CRNP History of Present Illness Source: clinic records, hospital records This is a 67 y/o female with a history of HTN, asthma, bipolar I disorder, CKD stage III, and GERD who presented to the ED on 11/17 unresponsive following an intentional drug overdose. The patient remains unresponsive and unable to obtain history or ROS from her. There is no one at bedside. Attempted to call partner, Alex, but did not brain picker. Following history per ED physician. The patient was found unresponsive on the floor around 1100 by her partner. She had her weekly pill organizer next to her, empty. The patient was last known to be well around 0300, when the partner had left for work. She has a history of suicidal ideation. Past Medical/Surgical History Medical Problems: (1) Anemia (2) Back pain (3) Bipolar 1 disorder with mixed features (4) Chronic kidney disease (CKD) (5) Depression (6) Diabetes mellitus type 2 (7) Dizziness (8) Drug overdose, intentional (9) Gastroesophageal reflux disease (10) Heart disease (11) Hyperlipemia (12) Hypertension (13) Hypothyroidism (14) Insomnia (15) Nausea & vomiting (16) Neck pain on right side (17) Renal insufficiency (18) Schizoaffective disorder, chronic condition with acute exacerbation (19) Suicidal ideation (20) Type II diabetes mellitus (21) Vomiting (22) Vomiting Family History Cancer Diabetes mellitus FH: heart disease Hypertension Rheumatoid arthritis Social History Unable to obtain social history from patient as she is unresponsive. Smoking Status: Unknown if Ever Smoked Marital Status: in relationship Housing status: lives with significant other Immunizations History of Influenza Vaccine: No History of Tetanus Vaccine?: Yes History of Pneumococcal: No History of Hepatitis B Vaccine: Unknown Allergies Coded Allergies: Latex (Unverified Allergy, Severe, UNKNOWN, 11/17/17) Aspirin (Verified Allergy, Unknown, UNKNOWN REACTION, 11/17/17) Clozapine (Verified Allergy, Unknown, TOXIC REACTION, 11/17/17) Codeine (Verified Allergy, Unknown, UNKNOWN REACTION, 08/10/17) Ibuprofen (Verified Allergy, Unknown, UNKNOWN REACTION, 11/17/17) Lurasidone (Verified Allergy, Unknown, TOXIC REACTION, 08/10/17) Penicillins (Verified Allergy, Unknown, UNKNOWN REACTION, 11/17/17) AMOXIL Sulfa Antibiotics (Verified Allergy, Unknown, UNKNOWN REACTION, 11/17/17) Home Medications Scheduled Amlodipine (Norvasc), 5 MG PO DAILY Atorvastatin (Lipitor), 10 MG PO HS Clonazepam (Klonopin), 0.5 MG PO BID Fish Oil ([place]-3), 1 CAP PO BIDM Lamotrigine (Lamictal), 25 MG PO BID Lamotrigine (Lamictal), 100 MG PO BID Losartan Potassium (Losartan Potassium), 25 MG PO QAM Montelukast Sodium (Singulair), 10 MG PO QAM Multivitamins/Minerals (Mvi With Minerals), 1 TAB PO DAILY Olanzapine (Zyprexa Zydis Odt), 10 MG PO BID Omeprazole (Prilosec), 40 MG PO QAM Paliperidone Palmitate (Invega Sustenna), 156 MG IM MONTHLY Trazodone Hcl (Trazodone), 25 MG PO HS Scheduled PRN Acetaminophen Tab (Tylenol), 650 MG PO Q4H PRN for Pain Bisacodyl (Dulcolax), 10 MG PO UD PRN for Constipation Review of Systems Unable to obtain ROS as patient is unresponsive Physical Exam Vital Signs Date Time Temp Pulse Resp B/P (MAP) Pulse Ox O2 Delivery O2 Flow Rate FiO2 11/17/17 14:31 127/76 11/17/17 14:30 90 19 97 11/17/17 14:01 148/81 11/17/17 14:00 89 19 99 11/17/17 13:40 99 22 163/103 97 Room Air 11/17/17 13:06 92 19 171/69 99 Room Air 11/17/17 12:19 78 11/17/17 12:06 36.2 79 21 177/85 90 Room Air General appearance: Well-developed, well-nourished, no apparent distress Head: Normocephalic, atraumatic Eyes: +Pupils pinpoint. Unable to assess EOM due to pt condition. PERRL ENT: +Unable to assess hearing, although pt normally wears hearing aides. Unable to assess pharynx. Normal ENT inspection Neck: Supple, no JVD, trachea midline Respiratory/Chest: Lungs clear to auscultation, normal breath sounds, no respiratory distress Cardiovascular: Regular rate & rhythm, no gallop, no murmur Abdomen/GI: Normal bowel sounds, non-tender, soft Extremities/Musculoskeletal: Normal inspection, no calf tenderness, no pedal edema Neurological/Psych: +Somnolent. Pt can spontaneously move all limbs and responds to painful stimuli but does not rouse. Unable to assess mood or orientation. Skin: Normal color, warm/dry, no rash Diagnostics Laboratory Results Results Past 24 Hours Test 11/17/17 12:02 11/17/17 12:48 11/17/17 14:27 Range/Units Urine Color YELLOW Urine Appearance CLEAR CLEAR Urine pH 6.5 4.5-7.5 Urine Specific [place] 1.009 1.000-1.030 Urine Protein 2+ NEG Urine Glucose (UA) NEG NEG Urine Ketones NEG NEG Urine Occult Blood NEG NEG Urine Nitrite NEG NEG Urine Bilirubin NEG NEG Urine Urobilinogen NEG NEG Urine Leukocyte Esterase NEG NEG Urine WBC (Auto) 0 0-5 /hpf Urine RBC (Auto) 0-4 0-4 /hpf Urine Hyaline Casts (Auto) 1-5 0-5 /lpf Urine Epithelial Cells (Auto) 0-5 0-5 /lpf Urine Bacteria (Auto) NEG NEG Urine Opiates Screen NEG NEG Urine Methadone, Qualitative NEG NEG Urine Barbiturates NEG NEG Urine Phencyclidine (PCP) Level NEG NEG Ur Amphetamine/Methamphetamine NEG NEG MDMA (Ecstasy) Screen NEG NEG Urine Benzodiazepines Screen NEG NEG Urine Cocaine Metabolite NEG NEG Urine Marijuana (THC) NEG NEG White Blood Count 5.71 4.8-10.8 K/uL Red Blood Count 3.57 4.2-5.4 M/uL Hemoglobin 10.5 12.0-16.0 g/dL Hematocrit 32.4 37-47 % Mean Corpuscular Volume 90.8 80-100 fL Mean Corpuscular Hemoglobin 29.4 25-34 pg Mean Corpuscular Hemoglobin Concent 32.4 32-36 g/dl Platelet Count 215 130-400 K/uL Mean Platelet Volume 9.7 7.4-10.4 fL Neutrophils (%) (Auto) 85.1 % Lymphocytes (%) (Auto) 9.3 % Monocytes (%) (Auto) 5.4 % Eosinophils (%) (Auto) 0.0 % Basophils (%) (Auto) 0.0 % Neutrophils # (Auto) 4.86 1.4-6.5 K/uL Lymphocytes # (Auto) 0.53 1.2-3.4 K/uL Monocytes # (Auto) 0.31 0.11-0.59 K/uL Eosinophils # (Auto) 0.00 0-0.5 K/uL Basophils # (Auto) 0.00 0-0.2 K/uL RDW Standard Deviation 49.4 36.4-46.3 fL RDW Coefficient of Variation 14.9 11.5-14.5 % Immature Granulocyte % (Auto) 0.2 % Immature Granulocyte # (Auto) 0.01 0.00-0.02 K/uL Sodium Level 146 136-145 mmol/L Potassium Level 3.8 3.5-5.1 mmol/L Chloride Level 114 98-107 mmol/L Carbon Dioxide Level 27 21-32 mmol/L Anion Gap 5.0 3-11 mmol/L Blood Urea Nitrogen 18 7-18 mg/dl Creatinine 1.23 0.60-1.20 mg/dl Est Creatinine Clear Calc Drug Dose 36.9 ml/min Estimated GFR () 53.3 Estimated GFR (Non- 46.0 BUN/Creatinine Ratio 14.5 10-20 Random Glucose 139 70-99 mg/dl Calcium Level 9.0 8.5-10.1 mg/dl Magnesium Level 2.6 1.8-2.4 mg/dl Total Bilirubin 0.2 0.2-1 mg/dl Direct Bilirubin < 0.1 0-0.2 mg/dl Aspartate Amino Transf (AST/SGOT) 19 15-37 U/L Alanine Aminotransferase (ALT/SGPT) 33 12-78 U/L Alkaline Phosphatase 99 45-117 U/L Total Protein 7.1 6.4-8.2 gm/dl Albumin 3.5 3.4-5.0 gm/dl Lipase 128 73-393 U/L Salicylates Level < 1.7 2.8-20 mg/dl Acetaminophen Level < 2 10-30 ug/ml Ethyl Alcohol mg/dL < 3.0 0-3 mg/dl Creatine Kinase MB Ratio 0-3.0 Microbiology Results 11/17/17 Urine Culture, Received Pending Diagnostic Radiology Reviewed the following studies and agree with interpretation as follows: CHEST ONE VIEW PORTABLE HISTORY: Atypical CHEST PAIN COMPARISON: Chest 01/14/2017. FINDINGS: There are low lung volumes. Patient is slightly rotated on this study. The heart is mildly enlarged. There is mild perihilar interstitial and vascular thickening. This suggests mild congestive change. No focal lung consolidations to suggest pneumonia. No pneumothorax. No pleural effusions. IMPRESSION: Cardiomegaly with mild congestive change. This has progressed in the interval. EKG Reviewed EKG and agree with interpretation as follows: 81 bpm, NSR, QTc WNL at 464 Impression Assessment and Plan 67 y/o female with a history of HTN, asthma, bipolar I disorder, CKD stage III, and GERD who presented to the ED on 11/17 unresponsive following an intentional drug overdose. The patient is verbally unresponsive and unable to provide ROS or history. Appears to have taken week's worth of home meds: Lipitor, clonazepam, Lamictal, losartan, Singulair, Pt afebrile, VSS. Pt had been sating 99% on room air but eventually placed on NC. Urine drug screen completely negative. Alcohol level negative. UA negative, labs are grossly unremarkable/at her baseline. CXR shows mild congestive changes. EKG no acute ischemia, QTc WNL. Intentional drug overdose, h/o suicidal ideation -Admit to ICU, consult clearing house clerk. Spoke to Dr. Gibbons, recommends end tidal CO2 monitoring -Seizure precautions -Consult psychiatry, appreciate recs. Pt well known to them -NSS at 100 cc/hr -Lamictal level pending, reference lab -Will check cardiac enzymes/CK as pt took week's worth of Lipitor -Trend LFTs, currently WNL -NPO until more alert, hold home oral meds -Aspiration and fall precautions HTN--stable, BP had been elevated on admission but last reading 127/76 -Hold Norvasc and losartan for now -Cover with hydralazine 10 mg IV q6h prn SBP >180 Asthma -Singulair on hold H/o DM per outpatient records, however inpt labs only show h/o prediabetes -BSG 139 on admission -Last HgbA1c 5.3 on 07/22/17 -Repeat HgbA1c Chronic anemia, unclear etiology possibly of chronic kidney disease--stable -Baseline Hgb 10-11 -Hgb 10.5 on admission Bipolar I disorder -Consult psych as above -Hold Lamictal, Zyprexa, clonazepam for now -UDS negative for benzos, unclear if pt is giving clonazepam to someone else -Pt takes monthly Invega injects, most recent one due 11/08 CKD stage III--stable -Baseline creatinine 1.3-1.5 -Creatinine 1.23 on admission GERD -Hold PO PPI for now DVT prophylaxis -Heparin 5000 units SC q12h -ALONZO Ulloa Code Status -Level I, FULL RESUSCITATION STATUS Resuscitation Status VTE Prophylaxis Will order VTE Prophylaxis: Yes Note Total Time: Critical Care 30 - 74 minutes
--- NOTE | 2017-11-17 15:34 | EMERGENCY ROOM VISIT NOTE ---
History Report prepared by Bradford: Johny Solis Under the Supervision of: Dr. Gerry Gibbons D.O. First contact with patient: 12:11 Chief Complaint: OVERDOSE (INTENTIONAL) Stated Complaint: Unresponsive, R/O overdose History of Present Illness This HPI is severely limited secondary to unresponsiveness. The patient is a 67 year old female who presents to the Emergency Room via ALS after being found unresponsive on the floor by her boyfriend at 1100 this morning, 90 minutes ago. Per the boyfriend, the patient was well when he left for work at 0300, 9 hours ago. When he returned home at 1100 she was unresponsive on the floor. The boyfriend states that she had her Weekly Pill Organizer on the floor next to her and all of the pills were gone. The boyfriend notes that she has a long history of psychiatric conditions and has been suicidal in the past. He believes the patient took a full week of all of her prescription medications. The patient's medications include; Losartan, Clonazepam, Omeprazole, Lamotrigine , Olanzapine, and Atorvastatin. It is unknown if this list is complete at this time. Source of History: spouse/significant other History Limited By: other (unresponsive seconadry to overdose) Onset: Last known well 9 hours ago Position: other (OD) Quality: other (Took a weeks worth of pills) Review of Systems See HPI for pertinent positives & negatives. Unable to obtain a full review of systems due to altered mental status Past Medical & Surgical Medical Problems: (1) Bipolar 1 disorder with mixed features (2) Chronic kidney disease (CKD) (3) Diabetes mellitus type 2 (4) Drug overdose, intentional (5) Gastroesophageal reflux disease (6) Heart disease (7) Hyperlipemia (8) Hypertension (9) Hypothyroidism (10) Renal insufficiency (11) Type II diabetes mellitus Old medical records were reviewed. Nurse's notes were reviewed and I agree with. Family History FH: heart disease Social History Smoking Status: Unknown if Ever Smoked Alcohol Use: none Drug Use: none Marital Status: in relationship Housing Status: lives with family Occupation Status: retired Current/Historical Medications Scheduled Amlodipine (Norvasc), 5 MG PO DAILY Atorvastatin (Lipitor), 10 MG PO HS Clonazepam (Klonopin), 0.5 MG PO BID Fish Oil (West-3), 1 CAP PO BIDM Lamotrigine (Lamictal), 25 MG PO BID Lamotrigine (Lamictal), 100 MG PO BID Losartan Potassium (Losartan Potassium), 25 MG PO QAM Montelukast Sodium (Singulair), 10 MG PO QAM Multivitamins/Minerals (Mvi With Minerals), 1 TAB PO DAILY Olanzapine (Zyprexa Zydis Odt), 10 MG PO BID Omeprazole (Prilosec), 40 MG PO QAM Paliperidone Palmitate (Invega Sustenna), 156 MG IM MONTHLY Trazodone Hcl (Trazodone), 25 MG PO HS Scheduled PRN Acetaminophen Tab (Tylenol), 650 MG PO Q4H PRN for Pain Bisacodyl (Dulcolax), 10 MG PO UD PRN for Constipation Allergies Coded Allergies: Latex (Unverified Allergy, Severe, UNKNOWN, 11/17/17) Aspirin (Verified Allergy, Unknown, UNKNOWN REACTION, 11/17/17) Clozapine (Verified Allergy, Unknown, TOXIC REACTION, 11/17/17) Codeine (Verified Allergy, Unknown, UNKNOWN REACTION, 08/10/17) Ibuprofen (Verified Allergy, Unknown, UNKNOWN REACTION, 11/17/17) Lurasidone (Verified Allergy, Unknown, TOXIC REACTION, 08/10/17) Penicillins (Verified Allergy, Unknown, UNKNOWN REACTION, 11/17/17) AMOXIL Sulfa Antibiotics (Verified Allergy, Unknown, UNKNOWN REACTION, 11/17/17) Physical Exam Vital Signs Date Time Temp Pulse Resp B/P (MAP) Pulse Ox O2 Delivery O2 Flow Rate FiO2 11/17/17 14:50 Nasal Cannula 11/17/17 14:31 127/76 11/17/17 14:30 90 19 97 11/17/17 14:01 148/81 11/17/17 14:00 89 19 99 11/17/17 13:40 99 22 163/103 97 Room Air 11/17/17 13:06 92 19 171/69 99 Room Air 11/17/17 12:19 78 11/17/17 12:06 36.2 79 21 177/85 90 Room Air Physical Exam General: Older female, unresponsive and somnolent. She is sporadically moving all 4 extremities. There is a nasal cannula in place. O2 of 100%. Mild movement with painful stimuli HEENT: Normal cephalic atraumatic. Pupils are equal round and reactive to light. Extraocular movements are intact. Oropharynx is pink with moist mucous membranes. No swelling of the mouth lips or tongue. Neck: Supple with a midline trachea. No meningeal signs or stiffness, no JVD or bruits. No Stridor. Chest: Clear to auscultation bilaterally. No wheezes or rhonchi. No increased work of breathing. Heart: regular rate and rhythm. Abdomen: Soft nontender, nondistended without rebound guarding or rigidity. Extremities: No cyanosis clubbing or edema. No calf tenderness or assymetry Spine/Back. Non tender to palpation. No CVA tenderness Skin: Good turgor without rashes. Neurologic exam: Cranial nerves two through 12 are intact. Older female, unresponsive and somnolent. She is sporadically moving all 4 extremities. There is a nasal cannula in place. O2 of 100%. Medical Decision & Procedures ER Provider Diagnostic Interpretation: Radiology results as stated below per my review and radiologist interpretation: CHEST ONE VIEW PORTABLE HISTORY: Atypical CHEST PAIN COMPARISON: Chest 01/14/2017. FINDINGS: There are low lung volumes. Patient is slightly rotated on this study. The heart is mildly enlarged. There is mild perihilar interstitial and vascular thickening. This suggests mild congestive change. No focal lung consolidations to suggest pneumonia. No pneumothorax. No pleural effusions. IMPRESSION: Cardiomegaly with mild congestive change. This has progressed in the interval. Electronically signed by: Ta Ochoa M.D. 11/17/2017 1:44 PM Dictated Date/Time: 11/17/2017 1:43 PM Laboratory Results 11/17/17 12:48 Red Blood Count 3.57, Mean Corpuscular Volume 90.8, Mean Corpuscular Hemoglobin 29.4, Mean Corpuscular Hemoglobin Concent 32.4, Mean Platelet Volume 9.7, Neutrophils (%) (Auto) 85.1, Lymphocytes (%) (Auto) 9.3, Monocytes (%) (Auto) 5.4, Eosinophils (%) (Auto) 0.0, Basophils (%) (Auto) 0.0, Neutrophils # (Auto) 4.86, Lymphocytes # (Auto) 0.53, Monocytes # (Auto) 0.31, Eosinophils # (Auto) 0.00, Basophils # (Auto) 0.00 11/17/17 12:48 Test 11/17/17 12:02 11/17/17 12:48 Urine Color YELLOW Urine Appearance CLEAR (CLEAR) Urine pH 6.5 (4.5-7.5) Urine Specific [place] 1.009 (1.000-1.030) Urine Protein 2+ (NEG) Urine Glucose (UA) NEG (NEG) Urine Ketones NEG (NEG) Urine Occult Blood NEG (NEG) Urine Nitrite NEG (NEG) Urine Bilirubin NEG (NEG) Urine Urobilinogen NEG (NEG) Urine Leukocyte Esterase NEG (NEG) Urine WBC (Auto) 0 /hpf (0-5) Urine RBC (Auto) 0-4 /hpf (0-4) Urine Hyaline Casts (Auto) 1-5 /lpf (0-5) Urine Epithelial Cells (Auto) 0-5 /lpf (0-5) Urine Bacteria (Auto) NEG (NEG) Urine Opiates Screen NEG (NEG) Urine Methadone, Qualitative NEG (NEG) Urine Barbiturates NEG (NEG) Urine Phencyclidine (PCP) Level NEG (NEG) Ur Amphetamine/Methamphetamine NEG (NEG) MDMA (Ecstasy) Screen NEG (NEG) Urine Benzodiazepines Screen NEG (NEG) Urine Cocaine Metabolite NEG (NEG) Urine Marijuana (THC) NEG (NEG) White Blood Count 5.71 K/uL (4.8-10.8) Red Blood Count 3.57 M/uL (4.2-5.4) Hemoglobin 10.5 g/dL (12.0-16.0) Hematocrit 32.4 % (37-47) Mean Corpuscular Volume 90.8 fL (80-100) Mean Corpuscular Hemoglobin 29.4 pg (25-34) Mean Corpuscular Hemoglobin Concent 32.4 g/dl (32-36) Platelet Count 215 K/uL (130-400) Mean Platelet Volume 9.7 fL (7.4-10.4) Neutrophils (%) (Auto) 85.1 % Lymphocytes (%) (Auto) 9.3 % Monocytes (%) (Auto) 5.4 % Eosinophils (%) (Auto) 0.0 % Basophils (%) (Auto) 0.0 % Neutrophils # (Auto) 4.86 K/uL (1.4-6.5) Lymphocytes # (Auto) 0.53 K/uL (1.2-3.4) Monocytes # (Auto) 0.31 K/uL (0.11-0.59) Eosinophils # (Auto) 0.00 K/uL (0-0.5) Basophils # (Auto) 0.00 K/uL (0-0.2) RDW Standard Deviation 49.4 fL (36.4-46.3) RDW Coefficient of Variation 14.9 % (11.5-14.5) Immature Granulocyte % (Auto) 0.2 % Immature Granulocyte # (Auto) 0.01 K/uL (0.00-0.02) Anion Gap 5.0 mmol/L (3-11) Est Creatinine Clear Calc Drug Dose 36.9 ml/min Estimated GFR () 53.3 Estimated GFR (Non- 46.0 BUN/Creatinine Ratio 14.5 (10-20) Calcium Level 9.0 mg/dl (8.5-10.1) Magnesium Level 2.6 mg/dl (1.8-2.4) Total Bilirubin 0.2 mg/dl (0.2-1) Direct Bilirubin < 0.1 mg/dl (0-0.2) Aspartate Amino Transf (AST/SGOT) 19 U/L (15-37) Alanine Aminotransferase (ALT/SGPT) 33 U/L (12-78) Alkaline Phosphatase 99 U/L (45-117) Total Creatine Kinase 25 U/L (26-192) Creatine Kinase MB < 1.0 ng/ml (0.5-3.6) Creatine Kinase MB Ratio (0-3.0) Troponin I < 0.015 ng/ml (0-0.045) Total Protein 7.1 gm/dl (6.4-8.2) Albumin 3.5 gm/dl (3.4-5.0) Lipase 128 U/L (73-393) Salicylates Level < 1.7 mg/dl (2.8-20) Acetaminophen Level < 2 ug/ml (10-30) Ethyl Alcohol mg/dL < 3.0 mg/dl (0-3) Laboratory studies as stated above per my review. ECG Per My Interpretation Indication: altered mental status, toxicologic Rate (beats per minute): 81 Rhythm: normal sinus Findings: no acute ischemic change, no ectopy, other (No prolongation of QT, no widening of QRS) ED Course 1212: Past medical records reviewed. The patient was evaluated in room A3, and a complete history and physical examination were performed. 1236: I checked on the patient she is waking up a little. 1254: She continues to start to move around a little more. 1322: The patient's vitals are stable at this time, no seizure activity. 1326: I discussed the case with oMne Andrade PA-C. She will evaluate for further treatment. Medical Decision Differential Diagnosis includes; overdose, electrolyte, toxicologic, infection. This patient comes in as described above. She was placed in room A3, she was brought in by EMS. Blood sugar had been checked and was not abnormal. A nasal trumpet have been placed in the field with this and oxygen her O2 sat was 100%. She has snoring respirations and some mild painful stimuli response. Her blood pressure and vital signs have been stable. EKG shows a normal QT interval and no prolongation of QRS. We did discuss the case with the poison center and they recommended that we get her Lamictal levels which we ordered and is unfortunately is a send out lab. She has no other significant electrolyte or metabolic abnormalities. I do think she needs to be admitted for further treatment and evaluation due to her altered mental status. At this point, it is unclear exactly what she took and when she took it. Due to her altered mental status and uncertainty of what she took she will be admitted to the ICU. She was also seen by Dr. Gibbons from the ICU in the Emergency department. Medication Reconcilliation Current Medication List: was personally reviewed by me Blood Pressure Screening Patient's blood pressure: Elevated blood pressure Referred to hospitalist. Consults Time Called: 1320 Consulting Physician: Mone Andrade PA-C Returned Call: 1326 I discussed the case with Mone Andrade PA-C. She will evaluate for further treatment. Impression Primary Impression: Intentional drug overdose Additional Impression: Altered mental status Critical Care Due to the patient's overdose and altered mental status, I have personally spent greater than 30 minutes of critical care time in the direct management of this patient. This includes bedside care, interpretation of diagnostic studies , and testing, discussion with consultants, patient, and family members, and other required patient management activities. This 30 minutes is in excess of all separately billable procedures. Scribe Attestation The scribe's documentation has been prepared under my direction and personally reviewed by me in its entirety. I confirm that the note above accurately reflects all work, treatment, procedures, and medical decision making performed by me. Departure Information Dispostion Being Evaluated By Hospitalist Referrals Santos Galeano III, CRNP (PCP) Patient Instructions My [facility] Problem Qualifiers
[2017-11-17] MEDS ORDERED: SODIUM CHLORIDE 0.9% 1000ML 1,000 ML IV SCH (16:30)
--- NOTE | 2017-11-17 17:14 | Critical Care Consultation ---
Critical Care Consultation Date of Consultation: Nov 17, 2017. Attending Physician: Dr. Martinez Reason for Consultation: Somnolence History of Present Illness History is largely obtained from prior records, and the patient's secondary to patient's altered mental status. Patient is a past medical history for hypertension, asthma, bipolar disorder, chronic kidney disease stage III who presented on November 17 following a possible drug overdose with altered mental status. Patient was last known to be normal at approximately 0300 and was discovered upon her boyfriend returned at approximately 10 AM. He had discovered a weekly pill organizer and the pills were missing. He was unable to tell me what and how much and when she may have taken her medications but patient's medication includes: Losartan clonazepam, omeprazole, Lamictal, olanzapine, atorvastatin In the emergency department the patient had labs obtained, and Poison Control Center was contacted. Her mental status remained largely unchanged. The patient's creatinine appears to be largely at baseline, the patient has a known anemia which again appears to be at baseline. There was no anion gap which would largely preclude toxic alcohol ingestion,The patient's drug screen was negative for Tylenol salicylates as well as mo negative for illicit drugs ethyl alcohol was also negative. Per report Poison Control Center was more concerned about the Lamictal level and would follow them serially. Lamictal levels are reference lab values here, we cannot obtain serial labs. Accordingly she was admitted to the ICU for close observation monitoring as well as serial EKGs to evaluate for lengthening of the QRS or QTC. Family History Cancer Diabetes mellitus FH: heart disease Hypertension Rheumatoid arthritis Social History Smoking Status: Unknown if Ever Smoked Drug Use: none Marital Status: in relationship Housing Status: lives with family Occupation Status: retired Allergies Coded Allergies: Latex (Unverified Allergy, Severe, UNKNOWN, 11/17/17) Aspirin (Verified Allergy, Unknown, UNKNOWN REACTION, 11/17/17) Clozapine (Verified Allergy, Unknown, TOXIC REACTION, 11/17/17) Codeine (Verified Allergy, Unknown, UNKNOWN REACTION, 08/10/17) Ibuprofen (Verified Allergy, Unknown, UNKNOWN REACTION, 11/17/17) Lurasidone (Verified Allergy, Unknown, TOXIC REACTION, 08/10/17) Penicillins (Verified Allergy, Unknown, UNKNOWN REACTION, 11/17/17) AMOXIL Sulfa Antibiotics (Verified Allergy, Unknown, UNKNOWN REACTION, 11/17/17) Home Medications Scheduled Amlodipine (Norvasc), 5 MG PO DAILY Atorvastatin (Lipitor), 10 MG PO HS Clonazepam (Klonopin), 0.5 MG PO BID Fish Oil (Bode-3), 1 CAP PO BIDM Lamotrigine (Lamictal), 25 MG PO BID Lamotrigine (Lamictal), 100 MG PO BID Losartan Potassium (Losartan Potassium), 25 MG PO QAM Montelukast Sodium (Singulair), 10 MG PO QAM Multivitamins/Minerals (Mvi With Minerals), 1 TAB PO DAILY Olanzapine (Zyprexa Zydis Odt), 10 MG PO BID Omeprazole (Prilosec), 40 MG PO QAM Paliperidone Palmitate (Invega Sustenna), 156 MG IM MONTHLY Trazodone Hcl (Trazodone), 25 MG PO HS Scheduled PRN Acetaminophen Tab (Tylenol), 650 MG PO Q4H PRN for Pain Bisacodyl (Dulcolax), 10 MG PO UD PRN for Constipation Current Inpatient Medications Current Inpatient Medications Medications (Trade) Dose Ordered Sig/Kelsey Route Start Time Stop Time Status Last Admin Dose Admin Heparin Sodium (Porcine) (Heparin Sq 5000 Unit/0.5ml) 5,000 unit Q12 SQ 11/17/17 21:00 12/17/17 20:59 UNV Sodium Chloride 1,000 ml @ 100 mls/hr Q10H IV 11/17/17 14:27 12/17/17 14:26 UNV Hydralazine HCl (HydrALAZINE INJ) 10 mg Q6H PRN IV. 11/17/17 14:30 12/17/17 14:29 Review of Systems Unable to obtain secondary to patient condition Physical Exam Date Time Temp Pulse Resp B/P (MAP) Pulse Ox O2 Delivery O2 Flow Rate FiO2 11/17/17 14:31 127/76 11/17/17 14:30 90 19 97 11/17/17 14:01 148/81 11/17/17 14:00 89 19 99 11/17/17 13:40 99 22 163/103 97 Room Air 11/17/17 13:06 92 19 171/69 99 Room Air 11/17/17 12:19 78 11/17/17 12:06 36.2 79 21 177/85 90 Room Air General: Glascow Coma Scale: Eyes: 1, Verbal 2, Motor 5, Total 8. Skin: Warm, dry, Head: Atraumatic Ears, nose, mouth and throat: airway patent Cardiovascular: Normal peripheral perfusion Respiratory: no respiratory distress Gastrointestinal: Non distended Musculoskeletal: No deformity Neuro: No obvious focal deficit, moves all 4 extremities Laboratory Results Last 24 Hours Test 11/17/17 12:02 11/17/17 12:48 11/17/17 14:27 Urine Color YELLOW Urine Appearance CLEAR Urine pH 6.5 Urine Specific [place] 1.009 Urine Protein 2+ Urine Glucose (UA) NEG Urine Ketones NEG Urine Occult Blood NEG Urine Nitrite NEG Urine Bilirubin NEG Urine Urobilinogen NEG Urine Leukocyte Esterase NEG Urine WBC (Auto) 0 /hpf Urine RBC (Auto) 0-4 /hpf Urine Hyaline Casts (Auto) 1-5 /lpf Urine Epithelial Cells (Auto) 0-5 /lpf Urine Bacteria (Auto) NEG Urine Opiates Screen NEG Urine Methadone, Qualitative NEG Urine Barbiturates NEG Urine Phencyclidine (PCP) Level NEG Ur Amphetamine/Methamphetamine NEG MDMA (Ecstasy) Screen NEG Urine Benzodiazepines Screen NEG Urine Cocaine Metabolite NEG Urine Marijuana (THC) NEG White Blood Count 5.71 K/uL Red Blood Count 3.57 M/uL Hemoglobin 10.5 g/dL Hematocrit 32.4 % Mean Corpuscular Volume 90.8 fL Mean Corpuscular Hemoglobin 29.4 pg Mean Corpuscular Hemoglobin Concent 32.4 g/dl Platelet Count 215 K/uL Mean Platelet Volume 9.7 fL Neutrophils (%) (Auto) 85.1 % Lymphocytes (%) (Auto) 9.3 % Monocytes (%) (Auto) 5.4 % Eosinophils (%) (Auto) 0.0 % Basophils (%) (Auto) 0.0 % Neutrophils # (Auto) 4.86 K/uL Lymphocytes # (Auto) 0.53 K/uL Monocytes # (Auto) 0.31 K/uL Eosinophils # (Auto) 0.00 K/uL Basophils # (Auto) 0.00 K/uL RDW Standard Deviation 49.4 fL RDW Coefficient of Variation 14.9 % Immature Granulocyte % (Auto) 0.2 % Immature Granulocyte # (Auto) 0.01 K/uL Sodium Level 146 mmol/L Potassium Level 3.8 mmol/L Chloride Level 114 mmol/L Carbon Dioxide Level 27 mmol/L Anion Gap 5.0 mmol/L Blood Urea Nitrogen 18 mg/dl Creatinine 1.23 mg/dl Est Creatinine Clear Calc Drug Dose 36.9 ml/min Estimated GFR () 53.3 Estimated GFR (Non- 46.0 BUN/Creatinine Ratio 14.5 Random Glucose 139 mg/dl Calcium Level 9.0 mg/dl Magnesium Level 2.6 mg/dl Total Bilirubin 0.2 mg/dl Direct Bilirubin < 0.1 mg/dl Aspartate Amino Transf (AST/SGOT) 19 U/L Alanine Aminotransferase (ALT/SGPT) 33 U/L Alkaline Phosphatase 99 U/L Total Protein 7.1 gm/dl Albumin 3.5 gm/dl Lipase 128 U/L Salicylates Level < 1.7 mg/dl Acetaminophen Level < 2 ug/ml Ethyl Alcohol mg/dL < 3.0 mg/dl Creatine Kinase MB Ratio Diagnostic Results I have reviewed the chest x-ray as well as the radiology report EKG: November 17, 1812: Normal sinus rhythm normal axis normal intervals QRS 114 QTC 455 Assessment & Plan Reason Critically Ill: 67-year-old female with possible drug ingestion and acute encephalopathy PLAN: Neuro: Acute encephalopathy -Suspect drug-induced -Obtain noncontrast head CT rule out intracranial hemorrhage -MRI to exclude ischemia Resp: Acute airway obstruction -Patient likely has baseline sleep apnea, she occasionally obstructs while breathing -End-tidal CO2 monitoring CV: At risk for QTC prolongation and QRS prolongation secondary to Lamictal use -Serial EKGs Fluids/Renal: Mild hyper natremia and mild hyperchloremia -Normosol at 100 ML's per hour ID: No obvious infection at this time GI/Nutrition: N.p.o. Heme: Anemia -Appears to be at baseline DVT prophylaxis: Heparin 5000 units Endocrine: ICU hyperglycemia protocol Vascular access: Peripheral IVs Code Status: Full I have personally spent 40 minutes of critical care time in the direct management of this patient. This is a life/limb threatening event. This includes time spent evaluating patient, direct bedside care, chart review, placing orders, interpretation of diagnostic studies, discussion with consultants, patient, and/or family members regarding treatment decisions, as well as other required patient management activities. This time is exclusive of all separately billable procedures, and teaching time and separate from and in addition to any other critical care service time.
[2017-11-17 17:37] LABS: PTT PATIENT 30.4 SECONDS (21.0-31.0)
[2017-11-17] MEDS: NORMOSOL R 1,000 ML IV SCH (20:59)
--- NOTE | 2017-11-17 20:59 | DIAGNOSTIC IMAGING REPORT ---
HEAD WITHOUT CONTRAST (CT) CLINICAL HISTORY: 67 years-old Female with aloc. Acute loss of consciousness. TECHNIQUE: Multiple axial CT images of the head were obtained without contrast. A dose lowering technique was utilized adhering to the principles of ALARA. CT DOSE: 1151.75 mGy.cm COMPARISON: CT head 01/14/2017. FINDINGS: No acute intracranial hemorrhage, midline shift, intracranial mass, hydrocephalus, territorial ischemia or abnormal extra-axial collection. The calvarium is intact. The paranasal sinuses, mastoid air cells, and middle ear cavities are clear. IMPRESSION: No acute intracranial abnormality. The above report was generated using voice recognition software. It may contain grammatical, syntax or spelling errors. Electronically signed by: Nguyễn Ferrer M.D. 11/17/2017 8:58 PM Dictated Date/Time: 11/17/2017 8:55 PM
[2017-11-17] MEDS: HEPARIN SOD 5000 UNIT/0.5 ML CARP SQ SCH (21:00)
[2017-11-18] VITALS (19 sets, daily range): BP systolic 132–180; BP diastolic 52–81; PULSE 76–101; TEMP 36.6–38.4; O2SAT 90–99
[2017-11-18 04:50] LABS: HEMATOCRIT 32.8 % (37-47); HEMOGLOBIN 10.1 g/dL (12.0-16.0); MEAN CELL VOLUME 92.7 fL (80-100); MEAN CORPUSCULAR HEMOGLOBIN 28.5 pg (25-34); MEAN CORPUSCULAR HGB CONC 30.8 g/dl (32-36); MEAN PLATELET VOLUME 9.8 fL (7.4-10.4); PLATELET COUNT 233 K/uL (130-400); RED CELL DISTRIBUTION WIDTH CV 14.9 % (11.5-14.5); RED CELL DISTRIBUTION WIDTH SD 50.6 fL (36.4-46.3); WHITE BLOOD COUNT 8.23 K/uL (4.8-10.8)
[2017-11-18 05:21] LABS: ALBUMIN 3.3 gm/dl (3.4-5.0); CALCIUM 8.8 mg/dl (8.5-10.1); CREATININE 1.29 mg/dl (0.60-1.20); POTASSIUM 4.1 mmol/L (3.5-5.1); TOTAL PROTEIN 6.9 gm/dl (6.4-8.2)
[2017-11-18] MEDS ORDERED: NURSING VERBAL MED ORDER ONE (06:30)
[2017-11-18 06:58] LABS: HEMOGLOBIN A1C 6.1 % (4.5-5.6)
[2017-11-18] MEDS: NORMOSOL R 1,000 ML IV SCH (07:06)
[2017-11-18] MEDS: ACETAMINOPHEN IV 650 MG / 65ML IV PRN ×2 (07:07→14:37)
[2017-11-18] MEDS: HEPARIN SOD 5000 UNIT/0.5 ML CARP SQ SCH ×2 (07:39→19:55)
--- NOTE | 2017-11-18 08:30 | Clinical Documentation Query ---
ZEYNEP YEUNG : CLINICAL DOCUMENTATION QUERY Patient is a 67 year old female admitted for treatment of an intentional drug overdose. Presented verbally unresponsive, somnolent per documentation. She has been admitted to ICU, nasal trumpet in place. Journal Box Inspector and psychiatry consultations, IVF, NPO status, aspiration, fall, and seizure precautions maintained. As appropriate, consider alteration of mental status as a manifestation of overdose as suggested below. Thank you. In your clinical opinion is this patient being managed for: ( x ) Toxic encephalopathy ( ) Not Agree ( ) Other explanation of clinical findings (No explanation is considered a No Response) ( ) Unable to determine ( ) Need to Discuss (Phone CDS or qliq) (No discussion is considered a No Response) The medical record reflects the following clinical findings, treatment, and risk factors. Clinical Indicators: As above Treatment: She has been admitted to ICU, nasal trumpet in place. Journal Box Inspector and psychiatry consultations, IVF, NPO status, aspiration, fall, and seizure precautions maintained Risk Factors: Multi-drug overdose Please clarify and document your clinical opinion in the progress notes and discharge summary. Terms such as "probable", "suspected", "likely", "questionable", "possible", or "still to be ruled out" are acceptable. IF IN AGREEMENT, YOU MUST DOCUMENT ABOVE DIAGNOSTIC STATEMENT IN DAILY PROGRESS NOTES AND DISCHARGE SUMMARY. This document is not part of the patient's record. Thank You, Gerry Ross, RN [phone]
[2017-11-18] MEDS: LACTATED RINGER'S 1000ML 1,000 ML IV SCH ×2 (09:15→19:52)
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
--- NOTE | 2017-11-18 11:55 | DIAGNOSTIC IMAGING REPORT ---
CHEST ONE VIEW PORTABLE CLINICAL HISTORY: hypoxia dyspnea COMPARISON STUDY: 11/17/2017 FINDINGS: Interval development of a right basilar infiltrate. Lungs otherwise appear clear. Diaphragms are smooth. IMPRESSION: Infiltrate right base. The above report was generated using voice recognition software. It may contain grammatical, syntax or spelling errors. Electronically signed by: Kashmir Valera M.D. 11/18/2017 11:54 AM Dictated Date/Time: 11/18/2017 11:53 AM
--- NOTE | 2017-11-18 13:56 | Hospitalist Progress Note ---
Hospitalist Progress Note Date of Service Nov 18, 2017. Subjective Pt evaluation today including: conversation w/ patient, conversation w/ family , physical exam, chart review, lab review, review of studies, conversation w/ medical cost consultant, review of inpatient medication list Unable to obtain ROS from patient due to condition, although she is more alert today. Pt's lifetime partner, Alex, at bedside. He states she was recently discharged from inpatient psych at [facility] and had been doing very well, so he is not sure what brought on the overdose. He states she has not attempted suicide in a long time. Patient has been spiking fevers today, CXR reveals PNA. Additional Comments: Unable to obtain ROS from patient. Objective Vital Signs Date Time Temp Pulse Resp B/P (MAP) Pulse Ox O2 Delivery O2 Flow Rate FiO2 11/18/17 12:01 83 22 164/66 (98) 93 Nasal Cannula 2.0 11/18/17 11:33 38.4 11/18/17 11:01 86 28 168/72 (104) 92 Nasal Cannula 2.0 11/18/17 10:01 90 32 156/70 (98) 90 Room Air 11/18/17 09:01 93 27 169/65 (99) 90 Room Air 11/18/17 08:01 37.7 101 31 172/81 (111) 96 Nasal Cannula 4.0 Humidified Oxygen 11/18/17 08:00 Nasal Cannula 4.0 11/18/17 07:02 99 33 152/67 (95) 93 Nasal Cannula 4.0 Humidified Oxygen 11/18/17 05:01 95 32 141/66 (91) 92 Nasal Cannula 4.0 Humidified Oxygen 11/18/17 04:01 36.6 95 26 149/59 (89) 92 Nasal Cannula 4.0 Humidified Oxygen 11/18/17 03:03 95 12 144/64 (90) 94 Nasal Cannula 4.0 Humidified Oxygen 11/18/17 02:01 81 18 132/53 (79) 98 Nasal Cannula 4.0 Humidified Oxygen 11/18/17 01:01 81 19 136/52 (80) 98 Nasal Cannula 4.0 Humidified Oxygen 11/18/17 00:01 36.8 86 19 150/54 (86) 99 Nasal Cannula 4.0 Humidified Oxygen 11/17/17 23:01 84 21 134/65 (88) 99 Nasal Cannula 4.0 Humidified Oxygen 11/17/17 22:01 84 21 142/67 (92) 98 Nasal Cannula 4.0 Humidified Oxygen 11/17/17 21:01 81 21 138/61 (86) 96 Nasal Cannula 4.0 Humidified Oxygen 11/17/17 20:50 84 19 148/65 (92) 99 Nasal Cannula 4.0 Humidified Oxygen 11/17/17 20:01 36.5 72 20 139/56 (83) 100 Nasal Cannula 4.0 Humidified Oxygen 11/17/17 20:00 Nasal Cannula 4.0 Humidified Oxygen 11/17/17 19:34 78 15 153/69 (97) 100 Nasal Cannula 4.0 Humidified Oxygen 11/17/17 19:01 70 20 118/50 (72) 100 Nasal Cannula 4.0 Humidified Oxygen 11/17/17 18:23 36.5 73 19 136/52 (80) 100 Nasal Cannula 4.0 Humidified Oxygen 11/17/17 16:53 Nasal Cannula 4.0 Humidified Oxygen 11/17/17 16:00 Nasal Cannula 4.0 Humidified Oxygen 11/17/17 14:50 Nasal Cannula 11/17/17 14:31 127/76 11/17/17 14:30 90 19 97 11/17/17 14:01 148/81 11/17/17 14:00 89 19 99 11/17/17 13:40 99 22 163/103 97 Room Air 11/17/17 13:06 92 19 171/69 99 Room Air Physical Exam Notes: General appearance: Well-developed, well-nourished, no apparent distress Head: Normocephalic, atraumatic Eyes: +Unable to assess EOM due to pt condition. PERRL ENT: +Unable to assess hearing, although pt normally wears hearing aides. Unable to assess pharynx as pt not following commands. Normal ENT inspection Neck: Supple, no JVD, trachea midline Respiratory/Chest: Lungs clear to auscultation, normal breath sounds, no respiratory distress Cardiovascular: Regular rate & rhythm, no gallop, no murmur Abdomen/GI: Normal bowel sounds, non-tender, soft Extremities/Musculoskeletal: Normal inspection, no calf tenderness, no pedal edema Neurological/Psych: +More alert today but still not verbally responsive. Does attempt speech but it is garbled. Spontaneously opens eyes and can track objects but does not follow commands. Spontaneously moves all limbs. Unable to assess mood or orientation. Skin: Normal color, warm/dry, no rash Laboratory Results Last 24 Hours Test 11/17/17 17:16 11/17/17 19:58 11/18/17 04:24 Prothrombin Time 10.6 SECONDS Prothromb Time International Ratio 1.0 Activated Partial Thromboplast Time 30.4 SECONDS Partial Thromboplastin Ratio 1.2 Venous Blood pH 7.31 Venous Blood Partial Pressure CO2 54 mmHg Venous Blood Partial Pressure O2 57 mmHg Venous Blood HCO3 27 mmol/L Venous Blood Oxygen Saturation 86.6 % Venous Blood Base Excess 0.2 mEq/L White Blood Count 8.23 K/uL Red Blood Count 3.54 M/uL Hemoglobin 10.1 g/dL Hematocrit 32.8 % Mean Corpuscular Volume 92.7 fL Mean Corpuscular Hemoglobin 28.5 pg Mean Corpuscular Hemoglobin Concent 30.8 g/dl RDW Standard Deviation 50.6 fL RDW Coefficient of Variation 14.9 % Platelet Count 233 K/uL Mean Platelet Volume 9.8 fL Sodium Level 149 mmol/L Potassium Level 4.1 mmol/L Chloride Level 117 mmol/L Carbon Dioxide Level 26 mmol/L Anion Gap 6.0 mmol/L Blood Urea Nitrogen 17 mg/dl Creatinine 1.29 mg/dl Est Creatinine Clear Calc Drug Dose 35.2 ml/min Estimated GFR () 50.3 Estimated GFR (Non- 43.4 BUN/Creatinine Ratio 13.5 Random Glucose 132 mg/dl Calcium Level 8.8 mg/dl Total Bilirubin 0.4 mg/dl Direct Bilirubin 0.1 mg/dl Aspartate Amino Transf (AST/SGOT) 11 U/L Alanine Aminotransferase (ALT/SGPT) 28 U/L Alkaline Phosphatase 99 U/L Total Protein 6.9 gm/dl Albumin 3.3 gm/dl Diagnostic Results Reviewed the following studies and agree with interpretation as follows: HEAD WITHOUT CONTRAST (CT) CLINICAL HISTORY: 67 years-old Female with aloc. Acute loss of consciousness. TECHNIQUE: Multiple axial CT images of the head were obtained without contrast. A dose lowering technique was utilized adhering to the principles of ALARA. CT DOSE: 1151.75 mGy.cm COMPARISON: CT head 01/14/2017. FINDINGS: No acute intracranial hemorrhage, midline shift, intracranial mass, hydrocephalus, territorial ischemia or abnormal extra-axial collection. The calvarium is intact. The paranasal sinuses, mastoid air cells, and middle ear cavities are clear. IMPRESSION: No acute intracranial abnormality. CHEST ONE VIEW PORTABLE CLINICAL HISTORY: hypoxia dyspnea COMPARISON STUDY: 11/17/2017 FINDINGS: Interval development of a right basilar infiltrate. Lungs otherwise appear clear. Diaphragms are smooth. IMPRESSION: Infiltrate right base. Assessment and Plan 67 y/o female with a history of HTN, asthma, bipolar I disorder, CKD stage III, and GERD who presented to the ED on 11/17 unresponsive following an intentional drug overdose. The patient is verbally unresponsive and unable to provide ROS or history. Appears to have taken week's worth of home meds: Lipitor, clonazepam, Lamictal, losartan, Singulair, Pt afebrile, VSS. Pt had been sating 99% on room air but eventually placed on NC. Urine drug screen completely negative. Alcohol level negative. UA negative, labs are grossly unremarkable/at her baseline. CXR shows mild congestive changes. EKG no acute ischemia, QTc WNL. Intentional drug overdose, h/o suicidal ideation, toxic encephalopathy-- improving -Admit to ICU, consult mc kay machine operator. Spoke to karrie Lira to transfer to telemetry today. -Seizure precautions -Consult psychiatry, appreciate recs. Pt well known to them -NSS changed to LR 100 cc/hr -Lamictal level pending, reference lab -Cardiac enzymes negative, CK negative -LFTs remain WNL -More alert today but will continue NPO status for now as likely still not safe enough to eat -Aspiration and fall precautions -Serial EKGs show prolonged QTc in 460s but this has remained stable -Head CT no acute disease -MRI brain, MRA head and neck pending Fevers, PNA--possible aspiration -Tmax 38.4C -CXR with right base infiltrate, not seen on CXR at admission -Given pt's prolonged QTc and PCN allergy, will start clindamycin 600 mg IV q8h. Can then transition to PO when safely eating -Tylenol IV prn fever HTN--stable -Hold Norvasc and losartan for now while NPO -Cover with hydralazine 10 mg IV q6h prn SBP >180 Asthma -Singulair on hold H/o DM per outpatient records, however inpt labs only show h/o prediabetes -HgbA1c 6.1 on 11/17 -BSG 132 this am, will hold off on ISS for now while NPO, consider instituting BSG checks and ISS when eating Chronic anemia, unclear etiology possibly of chronic kidney disease--stable -Baseline Hgb - -Hgb remains stable, w/in baseline Bipolar I disorder -Consult psych as above -Hold Lamictal, Zyprexa, clonazepam for now -UDS negative for benzos, unclear if pt is giving clonazepam to someone else -Pt takes monthly Invega injects, most recent one due 11/08 CKD stage III--stable -Baseline creatinine 1.3-1.5 -Creatinine 1.29 on 11/18 GERD -Hold PO PPI for now DVT prophylaxis -Heparin 5000 units SC q12h -LAONZO Ulloa Code Status -Level I, FULL RESUSCITATION STATUS
[2017-11-18] MEDS: CLINDAMYCIN IV 600 MG in DEXTROSE 5% 50ML 50 ML IV SCH ×2 (14:14→21:03)
--- NOTE | 2017-11-18 19:42 | Critical Care Progress Note ---
Critical Care Progress Note Date of Service Nov 18, 2017. ICU Day ICU Day Number: [address] Gibbons Subjective Patient is able to respond to commands, but is unable to clearly vocalize. Objective General; NAD, alert HEENT; NC/AT, supple, non-tender neck, no LAD, macroglossia Cardio; nl S1S2, no m/r/g, no peripheral edema Resp; CTAB, no r/r/w, good chest wall expansion GI; NT/ND, normal BS, no guarding/rigidity Neuro; CN grossly intact, able to follow commands, no focal deficits, equal strength in upper and lower extremities, intact sensation Skin; no rashes, pink, warm, dry Assessment & Plan Reason Critically Ill: 67-year-old female with possible drug ingestion and acute encephalopathy PLAN: Neuro: Acute encephalopathy - Patient was more alert today, unable to answer questions, but had her eyes open, able to follow commands - Neurologic exam was grossly normal, CN intact, equal strength, no signs of focal neuro deficits. - Patient was unable to open move her mouth, move her neck--perhaps 2/2 tardive dyskinesia - She is hard of hearing, without hearing aids currently. Possibly hindering/ contributing to her inability to effectively communicate. - Psychiatry was consulted and the patient was transferred from the unit. Appreciate psychiatry recommendations - Patient confirmed attempted suicide by drug overdose. - No acute findings on CT - Unable to obtain MRI, pt unable to remain still Toxicology - Lamictal level pending, reference lab - Other drugs of abuse, Tylenol level, salicylates negative - LFT's are WNL, no signs of acute liver injury - Mild hypernatremia Resp: Acute airway obstruction - Patient likely has baseline sleep apnea, she occasionally obstructs while breathing - Currently on 2L CV: At risk for QTC prolongation and QRS prolongation secondary to Lamictal use - Continue Norvasc, Cozaar for HTN - QTC improving - Serial EKGs Fluids/Renal: Mild hyper natremia and mild hyperchloremia - Normosol at 100 ML's per hour ID: - No obvious infection at this time - follow fever curve GI/Nutrition: - N.p.o. Heme: Anemia - Appears to be at baseline - DVT prophylaxis: Heparin 5000 units Endocrine: - Sliding scale insulin Vascular access: Peripheral IVs Code Status: Full Resident Physician Supervision Note: Dr. Hicks was resident physician during care of patient. I separately evaluated patient and did history and exam. I discussed the case with the resident and generally agree with the findings and plan. Mental status significantly improved, will require IV Rocephin for right lower lobe pneumonia. Given significant improvement in mental status, patient no longer requires critical care level services, stable for downgrade to telemetry status. Continue supportive care Documented By: Gerry Gibbons, DO Data Medications: Current Inpatient Medications Medications (Trade) Dose Ordered Sig/Kelsey Route Start Time Stop Time Status Last Admin Dose Admin Heparin Sodium (Porcine) (Heparin Sq 5000 Unit/0.5ml) 5,000 unit Q12 SQ 11/17/17 21:00 12/17/17 20:59 11/18/17 07:39 5,000 UNIT Hydralazine HCl (HydrALAZINE INJ) 10 mg Q6H PRN IV. 11/17/17 14:30 12/17/17 14:29 Miscellaneous Information (Icu Protocol For Hyperglycemia) 1 ea PRN PRN N/A 11/17/17 15:30 11/19/17 15:29 Acetaminophen 650 mg/Empty Bag 65 ml @ 260 mls/hr Q6H PRN IV 11/18/17 06:45 12/18/17 06:44 11/18/17 14:37 260 MLS/HR Lactated Ringer's 1,000 ml @ 100 mls/hr Q10H IV 11/18/17 08:30 12/18/17 08:29 11/18/17 09:15 100 MLS/HR Clindamycin Phosphate 600 mg/ Dextrose 54 ml @ 100 mls/hr Q8H IV 11/18/17 14:00 11/25/17 13:59 11/18/17 14:14 100 MLS/HR I & O: 24-Hour Column 11/19/17 08:00 Intake Total 661 ml Output Total 1100 ml Balance -439 ml Vital Signs: Date Time Temp Pulse Resp B/P (MAP) Pulse Ox O2 Delivery O2 Flow Rate FiO2 11/18/17 19:07 36.8 85 20 171/77 (108) 93 Nasal Cannula 2.0 11/18/17 17:34 37.8 89 18 180/79 (112) 94 Nasal Cannula 2.0 11/18/17 16:21 94 Nasal Cannula 2.0 11/18/17 14:18 37.7 86 30 167/70 (102) 94 Nasal Cannula 2.0 11/18/17 13:01 89 31 163/66 (98) 92 Nasal Cannula 2.0 11/18/17 12:01 83 22 164/66 (98) 93 Nasal Cannula 2.0 11/18/17 11:33 38.4 11/18/17 11:01 86 28 168/72 (104) 92 Nasal Cannula 2.0 11/18/17 10:01 90 32 156/70 (98) 90 Room Air 11/18/17 09:01 93 27 169/65 (99) 90 Room Air 11/18/17 08:01 37.7 101 31 172/81 (111) 96 Nasal Cannula 4.0 Humidified Oxygen 11/18/17 08:00 Nasal Cannula 4.0 11/18/17 08:00 Nasal Cannula 11/18/17 07:02 99 33 152/67 (95) 93 Nasal Cannula 4.0 Humidified Oxygen 11/18/17 05:01 95 32 141/66 (91) 92 Nasal Cannula 4.0 Humidified Oxygen 11/18/17 04:01 36.6 95 26 149/59 (89) 92 Nasal Cannula 4.0 Humidified Oxygen 11/18/17 03:03 95 12 144/64 (90) 94 Nasal Cannula 4.0 Humidified Oxygen 11/18/17 02:01 81 18 132/53 (79) 98 Nasal Cannula 4.0 Humidified Oxygen 11/18/17 01:01 81 19 136/52 (80) 98 Nasal Cannula 4.0 Humidified Oxygen 11/18/17 00:01 36.8 86 19 150/54 (86) 99 Nasal Cannula 4.0 Humidified Oxygen 11/17/17 23:01 84 21 134/65 (88) 99 Nasal Cannula 4.0 Humidified Oxygen 11/17/17 22:01 84 21 142/67 (92) 98 Nasal Cannula 4.0 Humidified Oxygen 11/17/17 21:01 81 21 138/61 (86) 96 Nasal Cannula 4.0 Humidified Oxygen 11/17/17 20:50 84 19 148/65 (92) 99 Nasal Cannula 4.0 Humidified Oxygen 11/17/17 20:01 36.5 72 20 139/56 (83) 100 Nasal Cannula 4.0 Humidified Oxygen 11/17/17 20:00 Nasal Cannula 4.0 Humidified Oxygen Laboratory Results: Last 24 Hours Test 11/17/17 19:58 11/18/17 04:24 11/18/17 06:44 11/18/17 11:29 Venous Blood pH 7.31 Venous Blood Partial Pressure CO2 54 mmHg Venous Blood Partial Pressure O2 57 mmHg Venous Blood HCO3 27 mmol/L Venous Blood Oxygen Saturation 86.6 % Venous Blood Base Excess 0.2 mEq/L White Blood Count 8.23 K/uL Red Blood Count 3.54 M/uL Hemoglobin 10.1 g/dL Hematocrit 32.8 % Mean Corpuscular Volume 92.7 fL Mean Corpuscular Hemoglobin 28.5 pg Mean Corpuscular Hemoglobin Concent 30.8 g/dl RDW Standard Deviation 50.6 fL RDW Coefficient of Variation 14.9 % Platelet Count 233 K/uL Mean Platelet Volume 9.8 fL Sodium Level 149 mmol/L Potassium Level 4.1 mmol/L Chloride Level 117 mmol/L Carbon Dioxide Level 26 mmol/L Anion Gap 6.0 mmol/L Blood Urea Nitrogen 17 mg/dl Creatinine 1.29 mg/dl Est Creatinine Clear Calc Drug Dose 35.2 ml/min Estimated GFR () 50.3 Estimated GFR (Non- 43.4 BUN/Creatinine Ratio 13.5 Random Glucose 132 mg/dl Calcium Level 8.8 mg/dl Total Bilirubin 0.4 mg/dl Direct Bilirubin 0.1 mg/dl Aspartate Amino Transf (AST/SGOT) 11 U/L Alanine Aminotransferase (ALT/SGPT) 28 U/L Alkaline Phosphatase 99 U/L Total Protein 6.9 gm/dl Albumin 3.3 gm/dl Bedside Glucose 143 mg/dl 122 mg/dl Test 11/18/17 18:00 Bedside Glucose 131 mg/dl
[2017-11-19] VITALS (8 sets, daily range): BP systolic 162–191; BP diastolic 74–98; PULSE 75–112; TEMP 36.8–37.6; O2SAT 91–96
[2017-11-19] MEDS: LACTATED RINGER'S 1000ML 1,000 ML IV SCH (04:08)
[2017-11-19 06:18] LABS: HEMATOCRIT 32.2 % (37-47); HEMOGLOBIN 10.2 g/dL (12.0-16.0); MEAN CELL VOLUME 92.3 fL (80-100); MEAN CORPUSCULAR HEMOGLOBIN 29.2 pg (25-34); MEAN CORPUSCULAR HGB CONC 31.7 g/dl (32-36); MEAN PLATELET VOLUME 10.1 fL (7.4-10.4); PLATELET COUNT 206 K/uL (130-400); RED CELL DISTRIBUTION WIDTH CV 14.9 % (11.5-14.5); RED CELL DISTRIBUTION WIDTH SD 50.6 fL (36.4-46.3); WHITE BLOOD COUNT 6.01 K/uL (4.8-10.8)
[2017-11-19] MEDS: CLINDAMYCIN IV 600 MG in DEXTROSE 5% 50ML 50 ML IV SCH ×3 (06:29→20:03)
[2017-11-19 06:53] LABS: ALBUMIN 3.2 gm/dl (3.4-5.0); CALCIUM 9.4 mg/dl (8.5-10.1); CREATININE 1.17 mg/dl (0.60-1.20); POTASSIUM 3.6 mmol/L (3.5-5.1); TOTAL PROTEIN 7.3 gm/dl (6.4-8.2)
[2017-11-19] MEDS: HEPARIN SOD 5000 UNIT/0.5 ML CARP SQ SCH ×2 (08:12→20:00)
[2017-11-19] MEDS ORDERED: CARBOHYDRATES FOR HYPOGLYCEMIA PO PRN (13:30)
[2017-11-19] MEDS ORDERED: GLUCOSE 10 TABS/TUBE PO PRN (13:30)
[2017-11-19] MEDS ORDERED: GLUCOSE 40% GEL 15 GM TUBE PO PRN (13:30)
[2017-11-19] MEDS ORDERED: DEXTROSE 50% 50 ML SYR IV PRN (13:30)
[2017-11-19] MEDS ORDERED: GLUCAGON FOR INJ 1 MG VIAL IM PRN (13:30)
--- NOTE | 2017-11-19 13:36 | Hospitalist Progress Note ---
Hospitalist Progress Note Date of Service Nov 19, 2017. Subjective Pt evaluation today including: conversation w/ patient, physical exam, chart review, lab review, review of inpatient medication list Patient alert today but still with garbled speech. Patient can follow simple commands. Per nursing, pt tolerating clear liquid diet and eating 100% of meals. Difficult to understand what patient is saying, but she is possibly experiencing visual hallucinations. Unable to obtain ROS as could not understand speech. Additional Comments: Unable to obtain ROS due to garbled speech. Objective Vital Signs Date Time Temp Pulse Resp B/P (MAP) Pulse Ox O2 Delivery O2 Flow Rate FiO2 11/19/17 11:15 37.1 75 20 162/89 (113) 96 Room Air 11/19/17 09:00 92 Room Air 11/19/17 07:23 36.8 76 20 176/84 (114) 95 Nasal Cannula 2.0 11/19/17 06:01 168/74 (105) 11/19/17 03:50 37.1 81 26 181/77 (111) 96 Nasal Cannula 2.0 11/18/17 23:14 36.8 76 18 164/72 (102) 98 Nasal Cannula 2.0 11/18/17 19:55 Nasal Cannula 2.0 11/18/17 19:07 36.8 85 20 171/77 (108) 93 Nasal Cannula 2.0 11/18/17 17:34 37.8 89 18 180/79 (112) 94 Nasal Cannula 2.0 11/18/17 16:21 94 Nasal Cannula 2.0 11/18/17 14:18 37.7 86 30 167/70 (102) 94 Nasal Cannula 2.0 Physical Exam Notes: General appearance: Well-developed, well-nourished, no apparent distress Head: Normocephalic, atraumatic Eyes: +Pinpoint pupils, PERRL, EOMI ENT: +Hard of hearing. Normal ENT inspection, pharynx normal Neck: Supple, no JVD, trachea midline Respiratory/Chest: Lungs clear to auscultation, normal breath sounds, no respiratory distress Cardiovascular: Regular rate & rhythm, no gallop, no murmur Abdomen/GI: Normal bowel sounds, non-tender, soft Extremities/Musculoskeletal: Normal inspection, no calf tenderness, no pedal edema Neurological/Psych: +Fully alert but still with garbled speech. Follows commands. Possibly with visual hallucinations. Unable to assess mood or orientation. Skin: Normal color, warm/dry, no rash Laboratory Results Last 24 Hours Test 11/18/17 18:00 11/19/17 00:12 11/19/17 05:32 11/19/17 05:53 Bedside Glucose 131 mg/dl 113 mg/dl 121 mg/dl White Blood Count 6.01 K/uL Red Blood Count 3.49 M/uL Hemoglobin 10.2 g/dL Hematocrit 32.2 % Mean Corpuscular Volume 92.3 fL Mean Corpuscular Hemoglobin 29.2 pg Mean Corpuscular Hemoglobin Concent 31.7 g/dl RDW Standard Deviation 50.6 fL RDW Coefficient of Variation 14.9 % Platelet Count 206 K/uL Mean Platelet Volume 10.1 fL Sodium Level 147 mmol/L Potassium Level 3.6 mmol/L Chloride Level 113 mmol/L Carbon Dioxide Level 27 mmol/L Anion Gap 7.0 mmol/L Blood Urea Nitrogen 20 mg/dl Creatinine 1.17 mg/dl Est Creatinine Clear Calc Drug Dose 39.5 ml/min Estimated GFR () 56.6 Estimated GFR (Non- 48.9 BUN/Creatinine Ratio 17.2 Random Glucose 118 mg/dl Calcium Level 9.4 mg/dl Total Bilirubin 0.5 mg/dl Direct Bilirubin 0.1 mg/dl Aspartate Amino Transf (AST/SGOT) 12 U/L Alanine Aminotransferase (ALT/SGPT) 24 U/L Alkaline Phosphatase 95 U/L Total Protein 7.3 gm/dl Albumin 3.2 gm/dl Test 11/19/17 07:34 11/19/17 11:31 Bedside Glucose 124 mg/dl 111 mg/dl Assessment and Plan 67 y/o female with a history of HTN, HLD, asthma, bipolar I disorder, CKD stage III, and GERD who presented to the ED on 11/17 unresponsive following an intentional drug overdose. The patient is verbally unresponsive and unable to provide ROS or history. Appears to have taken week's worth of home meds: Lipitor, clonazepam, Lamictal, losartan, Singulair, Pt afebrile, VSS. Pt had been sating 99% on room air but eventually placed on NC. Urine drug screen completely negative. Alcohol level negative. UA negative, labs are grossly unremarkable/at her baseline. CXR shows mild congestive changes. EKG no acute ischemia, QTc WNL. Intentional drug overdose, h/o suicidal ideation, toxic encephalopathy-- improving -Admit to ICU, consult hunting sales leader. Transferred to telemetry 11/18. No acute events overnight, patient in sinus rhythm with HR 60s-90s. -Seizure precautions -Consult psychiatry, appreciate recs: Will likely require long-term placement - either admission to long-term psychiatric facility or personal custodial placement -D/C IVF as tolerating PO diet -Advance diet to regular heart healthy diet -Lamictal level pending, reference lab -Cardiac enzymes negative, CK negative -LFTs remain WNL -Aspiration and fall precautions -EKG 11/19 shows QTc slightly improved to 453 -Head CT no acute disease -Could not complete MRI as pt did not tolerate and could not stay still Fevers, PNA, possible aspiration during overdose--improving -No fevers since 11/18 -CXR with right base infiltrate, not seen on CXR at admission -Given pt's prolonged QTc and PCN allergy, will start clindamycin 600 mg IV q8h. Can then transition to PO when safely eating -Tylenol IV prn fever HTN, HLD--stable -Will resume Norvasc 5 mg PO qd and losartan 25 mg PO qd as tolerating PO -Cover with hydralazine 10 mg IV q6h prn SBP >180 -Continue to hold Lipitor Asthma -Singulair on hold H/o DM per outpatient records, however inpt labs only show h/o prediabetes -HgbA1c 6.1 on 11/17 -BSGs have been acceptable but will add insulin sliding scale due to liberalized diet -Check BSGs q ac and qhs Chronic anemia, unclear etiology possibly of chronic kidney disease--stable -Baseline Hgb - -Hgb remains stable, w/in baseline Bipolar I disorder -Consult psych as above -Hold Lamictal, Zyprexa, clonazepam for now -UDS negative for benzos, unclear if pt is giving clonazepam to someone else -Pt takes monthly Invega injects, most recent one due 11/08 CKD stage III--stable -Baseline creatinine 1.3-1.5 -Creatinine 1.17 on 11/19, down from 1.29 GERD -Hold PO PPI for now DVT prophylaxis -Heparin 5000 units SC q12h -ALONZO macias and SCDs Code Status -Level I, FULL RESUSCITATION STATUS
[2017-11-19] MEDS: INSULIN ASPART 100 UNITS/ML 3 ML PEN SC SCH ×2 (16:15→19:59)
--- NOTE | 2017-11-19 16:40 | Psychiatric Progress Notes ---
Progress Note Date of Service Nov 19, 2017. Interval History Brenda Medley is a 67-year-old female who was brought to the ED by EMS as she was found unresponsive by her fiance. Pt is reported to have taken an intentional overdose of a week's worth of her home medications - exact medications and doses uncertain. Psychiatry consult requested due to intentional drug overdose. Chief Complaint "I feel okay ". Subjective Patient seen today for follow-up. She is well known to me from previous hospitalizations on the behavioral health unit. She was seen for the initial consultation yesterday, but was altered and largely unable to participate. Today, she is alert, and was able to appropriately engage in assessment to using written questions, as she does not have her hearing aid and is extremely hard of hearing. She states that her mood is "okay," and knows she is here because "I took an overdose." She says that she "wanted to , because I could not live." She has a hard time explaining this further, stating "I felt pressured.... Lost my (unintelligible) at [facility]." She denies suicidal thoughts currently, and feels safe in the hospital. She says she was discharged from [facility] 11/03/2017, and that her mood has been "up and down" since. When asked if she thinks she needs an inpatient psychiatric admission, she states she is not sure. Review of Systems Patient denies pain, headache, nausea. Mental Status Exam During interview pt is: alert and oriented, cooperative Appearance: appropriately dressed Eye contact is: good (staring) Motor behavior is: other (Tardive movements of bilateral upper extremities and tongue) Speech: other (incomprehensible - patient attempting to communicate; difficulty with annunciation and communication at baseline) Affect: blunted (Reactive and appropriate) Mood is: other ("Okay") Thought process: goal directed Thought content: reality based without delusions Suicidal thought are: denied Homicidal thoughts are: denied Hallucinations: denies auditory, denies visual Cognition: other (Language impaired) Intelligence estimated to be: consistent with level of education Insight: impaired Judgement: impaired Impression 67-year-old female well-known to our service from multiple previous admissions. She was discharged from [facility] 11/03/17 and returned home with her partner Alex, and admits to an intentional overdose of a weeks worth of home medications. We will start to resume some of her medications. We will continue to follow patient during her medical treatment to determine the need for inpatient psychiatric treatment. She is no longer suicidal, and mood is stable, we will need to continue to monitor to determine if she can be safely discharged from the medical floor or will require ongoing behavioral health treatment. Certainly will need to be in touch with her partner, Alex, given her multiple overdoses in the past and recommendations that she not have access to more than one day supply of medication at a time. Plan (1) Drug overdose, intentional 11/18 - Will need to be reassessed once patient is able to participate with evaluation - Will likely require long-term placement - either admission to long-term psychiatric facility or personal nursing home placement - Agree with brain MRI as ordered by primary medical team - Request records from [facility] in [place] to confirm medications, recommend restart when medically appropriate - Will continue to follow and assist as able 11/19 - Patient states she intentionally a week supply of her medications as she was upset about her life, but struggles to give more specific information. We will continue to try to talk to her about this as her AMS resolves. We will monitor her mood while admitted to the medical floor, involve her significant other, and consider the need for inpatient psychiatric treatment. - Will recommend that her partner, Alex, only give her 1 day supply of medications at a time, due to the risk of overdoses, as she is somewhat impulsive, so it may be difficult to predict when she might overdose. (2) Bipolar 1 disorder with mixed features 11/18 - Recommend restart of home medications when appropriate per primary medical team and poison control recommendations - Will attempt to request records from [facility] in [place] to confirm medications, discharged ~2 weeks prior to this admission 11/19 -We have requested records from [facility] regarding her recent stay there. On Tuesday, we can coordinate care with her outpatient psychiatrist, Dr. Hicks. -She is due for her next Invega Sustenna shot on 12/06/2017. -See above regarding resumption of oral medications. Visit Code E&M Code: 88789 Risk Factors Assessment : Yes /single/: No Higher / Fall in social status: No Health problems: Yes Mental Health Diagnoses: Yes Substance use disorders: No Previous attempt: Yes Family history of suicide: Yes Previous psychiatric stay: Yes Smoker: No Protective Factors Assessment Bahai beliefs: No : No Responsible for young children: No Employed: No Stable relationships: Yes Data Vital Signs Last 24 Hrs: Date Time Temp Pulse Resp B/P (MAP) Pulse Ox O2 Delivery O2 Flow Rate FiO2 11/19/17 15:59 37.6 112 18 173/93 (119) 91 Room Air 11/19/17 11:15 37.1 75 20 162/89 (113) 96 Room Air 11/19/17 09:00 92 Room Air 11/19/17 07:23 36.8 76 20 176/84 (114) 95 Nasal Cannula 2.0 11/19/17 06:01 168/74 (105) 11/19/17 03:50 37.1 81 26 181/77 (111) 96 Nasal Cannula 2.0 11/18/17 23:14 36.8 76 18 164/72 (102) 98 Nasal Cannula 2.0 11/18/17 19:55 Nasal Cannula 2.0 11/18/17 19:07 36.8 85 20 171/77 (108) 93 Nasal Cannula 2.0 11/18/17 17:34 37.8 89 18 180/79 (112) 94 Nasal Cannula 2.0 Meds Administered Last 24 Hrs: Meds Administered (Past 24Hrs) Medications (Trade) Dose Ordered Sig/Kelsey Route Start Time Stop Time Status Last Admin Dose Admin Heparin Sodium (Porcine) (Heparin Sq 5000 Unit/0.5ml) 5,000 unit Q12 SQ 11/17/17 21:00 12/17/17 20:59 11/19/17 08:12 5,000 UNIT Sodium Chloride 1,000 ml @ 100 mls/hr Q10H IV 11/17/17 16:30 11/17/17 20:29 DC 11/17/17 16:41 100 MLS/HR Parenteral Electrolyte Solution 1,000 ml @ 100 mls/hr Q10H IV 11/17/17 20:30 11/18/17 08:26 DC 11/18/17 07:06 100 MLS/HR Acetaminophen 650 mg/Empty Bag 65 ml @ 260 mls/hr Q6H PRN IV 11/18/17 06:45 12/18/17 06:44 11/18/17 14:37 260 MLS/HR Lactated Ringer's 1,000 ml @ 100 mls/hr Q10H IV 11/18/17 08:30 11/19/17 13:22 DC 11/19/17 04:08 100 MLS/HR Clindamycin Phosphate 600 mg/ Dextrose 54 ml @ 100 mls/hr Q8H IV 11/18/17 14:00 11/25/17 13:59 11/19/17 13:15 100 MLS/HR Lab Results Last 24 Hrs: Last 24 Hours Test 11/18/17 18:00 11/19/17 00:12 11/19/17 05:32 11/19/17 05:53 Bedside Glucose 131 mg/dl 113 mg/dl 121 mg/dl White Blood Count 6.01 K/uL Red Blood Count 3.49 M/uL Hemoglobin 10.2 g/dL Hematocrit 32.2 % Mean Corpuscular Volume 92.3 fL Mean Corpuscular Hemoglobin 29.2 pg Mean Corpuscular Hemoglobin Concent 31.7 g/dl RDW Standard Deviation 50.6 fL RDW Coefficient of Variation 14.9 % Platelet Count 206 K/uL Mean Platelet Volume 10.1 fL Sodium Level 147 mmol/L Potassium Level 3.6 mmol/L Chloride Level 113 mmol/L Carbon Dioxide Level 27 mmol/L Anion Gap 7.0 mmol/L Blood Urea Nitrogen 20 mg/dl Creatinine 1.17 mg/dl Est Creatinine Clear Calc Drug Dose 39.5 ml/min Estimated GFR () 56.6 Estimated GFR (Non- 48.9 BUN/Creatinine Ratio 17.2 Random Glucose 118 mg/dl Calcium Level 9.4 mg/dl Total Bilirubin 0.5 mg/dl Direct Bilirubin 0.1 mg/dl Aspartate Amino Transf (AST/SGOT) 12 U/L Alanine Aminotransferase (ALT/SGPT) 24 U/L Alkaline Phosphatase 95 U/L Total Protein 7.3 gm/dl Albumin 3.2 gm/dl Test 11/19/17 07:34 11/19/17 11:31 Bedside Glucose 124 mg/dl 111 mg/dl
[2017-11-19] MEDS: HydrALAZINE HCL 20 MG/ML VIAL IV. PRN (19:55)
[2017-11-20] VITALS (9 sets, daily range): BP systolic 153–180; BP diastolic 77–88; PULSE 84–106; TEMP 37–37.8; O2SAT 92–96
[2017-11-20] MEDS: HydrALAZINE HCL 20 MG/ML VIAL IV. PRN (02:51)
[2017-11-20] MEDS: CLINDAMYCIN IV 600 MG in DEXTROSE 5% 50ML 50 ML IV SCH ×3 (05:22→21:06)
[2017-11-20] MEDS: INSULIN ASPART 100 UNITS/ML 3 ML PEN SC SCH ×4 (07:00→20:49)
[2017-11-20 07:17] LABS: HEMOGLOBIN 11.2 g/dL (12.0-16.0); MEAN CELL VOLUME 89.5 fL (80-100); MEAN CORPUSCULAR HEMOGLOBIN 29.5 pg (25-34); MEAN CORPUSCULAR HGB CONC 32.9 g/dl (32-36); MEAN PLATELET VOLUME 10.1 fL (7.4-10.4); PLATELET COUNT 238 K/uL (130-400); RED CELL DISTRIBUTION WIDTH CV 14.7 % (11.5-14.5); RED CELL DISTRIBUTION WIDTH SD 48.3 fL (36.4-46.3); WHITE BLOOD COUNT 5.83 K/uL (4.8-10.8)
[2017-11-20 07:55] LABS: ALBUMIN 3.2 gm/dl (3.4-5.0); CALCIUM 9.2 mg/dl (8.5-10.1); CREATININE 1.37 mg/dl (0.60-1.20); POTASSIUM 3.6 mmol/L (3.5-5.1); TOTAL PROTEIN 7.7 gm/dl (6.4-8.2)
[2017-11-20] MEDS: AMLODIPINE BESYLATE 5 MG TAB PO SCH (08:10)
[2017-11-20] MEDS: LOSARTAN POTASSIUM 25 MG TAB PO SCH (08:10)
[2017-11-20] MEDS: HEPARIN SOD 5000 UNIT/0.5 ML CARP SQ SCH ×2 (08:17→20:05)
--- NOTE | 2017-11-20 14:18 | Hospitalist Progress Note ---
Hospitalist Progress Note Date of Service Nov 20, 2017. Subjective Pt evaluation today including: conversation w/ patient, physical exam, chart review, lab review, conversation w/ trial consultant (spoke with Dr. Espitia), review of inpatient medication list Pain: None PO Intake: Tolerating regular diet, good intake Voiding: espinoza catheter in place Patient alert and speech more understandable today. She is very hard of hearing but answers questions appropriately when they are written down for her to read. She denies any pain or shortness of breath. She currently denies any suicidal ideations. The patient denies fevers, chills, sweats, chest pain, palpitations, claudication, cough, wheezing, shortness of breath, nausea, vomiting, abdominal pain, dysuria, hematuria, urinary retention, paralysis, weakness, numbness and tingling. Additional Comments: See HPI for pertinent positives and negatives. All other systems reviewed and negative. Objective Vital Signs Date Time Temp Pulse Resp B/P (MAP) Pulse Ox O2 Delivery O2 Flow Rate FiO2 11/20/17 12:00 37.4 106 20 162/83 (109) 96 Room Air 11/20/17 09:00 92 Room Air 11/20/17 06:36 37.6 102 24 153/78 (103) 92 Room Air 11/20/17 04:11 37.0 97 28 172/79 (110) 95 Room Air 11/20/17 02:55 180/82 (114) 11/19/17 23:31 37.3 94 22 181/85 (117) 94 Room Air 11/19/17 20:00 Room Air 2.0 11/19/17 19:06 37.0 92 20 191/98 (129) 92 Room Air 11/19/17 15:59 37.6 112 18 173/93 (119) 91 Room Air Physical Exam Notes: General appearance: Well-developed, well-nourished, no apparent distress Head: Normocephalic, atraumatic Eyes: Normal inspection, PERRL, EOMI ENT: +Hard of hearing. Normal ENT inspection, pharynx normal Neck: Supple, no JVD, trachea midline Respiratory/Chest: Lungs clear to auscultation, normal breath sounds, no respiratory distress Cardiovascular: Regular rate & rhythm, no gallop, no murmur Abdomen/GI: Normal bowel sounds, non-tender, soft Extremities/Musculoskeletal: Normal inspection, no calf tenderness, no pedal edema Neurological/Psych: +Speech less garbled today. Pt apparently has some speech abnormalities at baseline. Mood stable, denies suicidal ideations. Alert, normal mood/affect, oriented x 3 Skin: Normal color, warm/dry, no rash Laboratory Results Last 24 Hours Test 11/19/17 16:39 11/19/17 19:58 11/20/17 06:46 11/20/17 07:31 Bedside Glucose 109 mg/dl 128 mg/dl 142 mg/dl White Blood Count 5.83 K/uL Red Blood Count 3.80 M/uL Hemoglobin 11.2 g/dL Hematocrit 34.0 % Mean Corpuscular Volume 89.5 fL Mean Corpuscular Hemoglobin 29.5 pg Mean Corpuscular Hemoglobin Concent 32.9 g/dl RDW Standard Deviation 48.3 fL RDW Coefficient of Variation 14.7 % Platelet Count 238 K/uL Mean Platelet Volume 10.1 fL Sodium Level 144 mmol/L Potassium Level 3.6 mmol/L Chloride Level 112 mmol/L Carbon Dioxide Level 23 mmol/L Anion Gap 9.0 mmol/L Blood Urea Nitrogen 20 mg/dl Creatinine 1.37 mg/dl Est Creatinine Clear Calc Drug Dose 33.5 ml/min Estimated GFR () 46.8 Estimated GFR (Non- 40.4 BUN/Creatinine Ratio 14.5 Random Glucose 136 mg/dl Calcium Level 9.2 mg/dl Total Bilirubin 0.4 mg/dl Direct Bilirubin 0.1 mg/dl Aspartate Amino Transf (AST/SGOT) 13 U/L Alanine Aminotransferase (ALT/SGPT) 23 U/L Alkaline Phosphatase 104 U/L Total Protein 7.7 gm/dl Albumin 3.2 gm/dl Test 11/20/17 11:26 Bedside Glucose 116 mg/dl Assessment and Plan 67 y/o female with a history of HTN, HLD, asthma, bipolar I disorder, CKD stage III, and GERD who presented to the ED on 11/17 unresponsive following an intentional drug overdose. The patient is verbally unresponsive and unable to provide ROS or history. Appears to have taken week's worth of home meds: Lipitor, clonazepam, Lamictal, losartan, Singulair, Pt afebrile, VSS. Pt had been sating 99% on room air but eventually placed on NC. Urine drug screen completely negative. Alcohol level negative. UA negative, labs are grossly unremarkable/at her baseline. CXR shows mild congestive changes. EKG no acute ischemia, QTc WNL. Intentional drug overdose, h/o suicidal ideation, toxic encephalopathy-- improving -Admit to ICU, consult template inspector. Transferred to telemetry 11/18. Pt in sinus rhythm/sinus tachycardia with HR 90s-low 100s. Few short bursts of SVT, 4 -5 beats long. -Seizure precautions -Consult psychiatry, appreciate recs: Spoke with Dr. Espitia. We will restart Lamictal and monitor response on telemetry. Will also restart Zyprexa at lower dose. Dr. Espitia will reach out to outpatient psychiatrist tomorrow. -D/C IVF as tolerating PO diet -Advance diet to regular heart healthy diet -Change activity level to OOB as tolerated w/assistance -D/C Espinoza -Lamictal level pending, reference lab -Cardiac enzymes negative, CK negative -LFTs remain WNL -Renal function stable -EKGs show stable QT prolongation, 450s-460s. Upon review of EKGs over last several months, this is chronic/baseline. -Aspiration and fall precautions -Head CT no acute disease -Could not complete MRI as pt did not tolerate and could not stay still Fevers, PNA, possible aspiration during overdose--improving -No fevers since 11/18 -CXR with right base infiltrate, not seen on CXR at admission -Given pt's prolonged QTc and PCN allergy, will start clindamycin 600 mg IV q8h. Day #3 of abx -Tylenol IV prn fever HTN, HLD--stable -Will resume Norvasc 5 mg PO qd and losartan 25 mg PO qd as tolerating PO -Resume Lipitor 10 mg PO hs as LFTs have remained stable -Cover with hydralazine 10 mg IV q6h prn SBP >180 Asthma -Singulair on hold H/o DM per outpatient records, however inpt labs only show h/o prediabetes -HgbA1c 6.1 on 11/17 -BSGs have been acceptable but will add insulin sliding scale due to liberalized diet -Check BSGs q ac and qhs Chronic anemia, unclear etiology possibly of chronic kidney disease--stable -Baseline Hgb - -Hgb remains stable, w/in baseline Bipolar I disorder -Consult psych as above -Resume Lamictal 125 mg PO BID -Resume Zyprexa at lower dose to prevent sedation. Zyprexa Zydis 5 mg PO BID -Hold clonazepam -UDS negative for benzos, unclear if pt is giving clonazepam to someone else -Pt takes monthly Invega injects, most recent one given 11/08 CKD stage III--stable -Baseline creatinine 1.3-1.5 -Creatinine stable, w/in baseline GERD -Hold PO PPI for now DVT prophylaxis -Heparin 5000 units SC q12h -ALONZO macias and SCDs Code Status -Level I, FULL RESUSCITATION STATUS Dispo -Possible d/c tomorrow pending outpatient psych plan. Pt is very impulsive and can become manic very quickly but currently mood is stable and denies SI.
[2017-11-20] MEDS: OLANZAPINE ZYDIS 5 MG ORALLY DIS. TAB PO SCH (20:01)
[2017-11-21] VITALS (8 sets, daily range): BP systolic 128–168; BP diastolic 77–93; PULSE 77–98; TEMP 37.3–38.1; O2SAT 91–97
[2017-11-21] MEDS: CLINDAMYCIN IV 600 MG in DEXTROSE 5% 50ML 50 ML IV SCH (05:12)
[2017-11-21 06:32] LABS: HEMATOCRIT 34.8 % (37-47); HEMOGLOBIN 11.5 g/dL (12.0-16.0); MEAN CELL VOLUME 89.7 fL (80-100); MEAN CORPUSCULAR HEMOGLOBIN 29.6 pg (25-34); MEAN PLATELET VOLUME 9.6 fL (7.4-10.4); PLATELET COUNT 241 K/uL (130-400); RED CELL DISTRIBUTION WIDTH CV 14.6 % (11.5-14.5); RED CELL DISTRIBUTION WIDTH SD 47.8 fL (36.4-46.3); WHITE BLOOD COUNT 4.36 K/uL (4.8-10.8)
[2017-11-21 07:06] LABS: ALBUMIN 3.2 gm/dl (3.4-5.0); CALCIUM 9.5 mg/dl (8.5-10.1); CREATININE 1.25 mg/dl (0.60-1.20); POTASSIUM 3.7 mmol/L (3.5-5.1); TOTAL PROTEIN 7.7 gm/dl (6.4-8.2)
[2017-11-21] MEDS: OLANZAPINE ZYDIS 5 MG ORALLY DIS. TAB PO SCH ×2 (08:53→21:06)
[2017-11-21] MEDS: AMLODIPINE BESYLATE 5 MG TAB PO SCH (08:53)
[2017-11-21] MEDS: LOSARTAN POTASSIUM 25 MG TAB PO SCH (08:53)
[2017-11-21] MEDS: INSULIN ASPART 100 UNITS/ML 3 ML PEN SC SCH ×4 (08:54→20:56)
[2017-11-21] MEDS: HEPARIN SOD 5000 UNIT/0.5 ML CARP SQ SCH ×2 (08:55→21:10)
[2017-11-21] MEDS: LEVOFLOXACIN / D5W 750 MG in PREMIXED IN D5W 150 ML IV SCH (10:33)
--- NOTE | 2017-11-21 11:22 | Hospitalist Progress Note ---
Hospitalist Progress Note Date of Service Nov 21, 2017. (Svitlana Morales .RENETTA) Subjective Pt evaluation today including: conversation w/ patient, physical exam, chart review, lab review, review of inpatient medication list Voiding: no voiding problems Ms. Medley is oriented though somewhat confused with some questions and at time difficult to understand due to confusion and dysarthria. She had a hard time following commands. ROS Constitutional: no chills, aches, sweats or fever Respiratory: no sob,cough, sputum, or wheezing Cardiac: no chest pain, palpitations, edema, orthopnea or lightheadedness GI: no abdominal pain, nausea, vomiting, diarrhea or constipation : no dysuria or hesitancy Extremities: generalized weakness Skin: no rash All other systems reviewed and negative (Svitlana Morales CRNP) Medications Medications Administered Medications (Trade) Dose Ordered Sig/Kelsey Route Start Time Stop Time Status Last Admin Dose Admin Heparin Sodium (Porcine) (Heparin Sq 5000 Unit/0.5ml) 5,000 unit Q12 SQ 11/17/17 21:00 12/17/17 20:59 11/21/17 08:55 5,000 UNIT Sodium Chloride 1,000 ml @ 100 mls/hr Q10H IV 11/17/17 16:30 11/17/17 20:29 DC 11/17/17 16:41 100 MLS/HR Hydralazine HCl (HydrALAZINE INJ) 10 mg Q6H PRN IV. 11/17/17 14:30 12/17/17 14:29 11/20/17 02:51 10 MG Parenteral Electrolyte Solution 1,000 ml @ 100 mls/hr Q10H IV 11/17/17 20:30 11/18/17 08:26 DC 11/18/17 07:06 100 MLS/HR Acetaminophen 650 mg/Empty Bag 65 ml @ 260 mls/hr Q6H PRN IV 11/18/17 06:45 12/18/17 06:44 11/18/17 14:37 260 MLS/HR Lactated Ringer's 1,000 ml @ 100 mls/hr Q10H IV 11/18/17 08:30 11/19/17 13:22 DC 11/19/17 04:08 100 MLS/HR Clindamycin Phosphate 600 mg/ Dextrose 54 ml @ 100 mls/hr Q8H IV 11/18/17 14:00 11/21/17 09:53 DC 11/21/17 05:12 100 MLS/HR Insulin Aspart (novoLOG ASPART) SLIDING SCALE G... ACHS SC 11/19/17 16:15 12/19/17 16:14 11/21/17 08:54 2 UNITS Amlodipine Besylate (Norvasc Tab) 5 mg DAILY PO 11/20/17 09:00 12/20/17 08:59 11/21/17 08:53 5 MG Losartan Potassium (coZAAR TAB) 25 mg QAM PO 11/20/17 09:00 12/20/17 08:59 11/21/17 08:53 25 MG Lamotrigine (Lamictal Tab) 100 mg BID PO 11/20/17 21:00 12/20/17 20:59 11/21/17 08:53 100 MG Lamotrigine (Lamictal Tab) 25 mg BID PO 11/20/17 21:00 12/20/17 20:59 11/21/17 08:53 25 MG Olanzapine (Zyprexa Zydis Od Tab) 5 mg BID PO 11/20/17 21:00 12/20/17 20:59 11/21/17 08:53 5 MG Levofloxacin 750 mg/Prmx 150 ml @ 100 mls/hr Q48H IV 11/21/17 10:00 11/28/17 09:59 11/21/17 10:33 100 MLS/HR (Svitlana Morales, RENETTA) Objective Vital Signs Date Time Temp Pulse Resp B/P (MAP) Pulse Ox O2 Delivery O2 Flow Rate FiO2 11/21/17 09:13 Room Air 11/21/17 07:47 37.7 98 19 168/90 (116) 91 11/21/17 04:15 93 Room Air 11/21/17 03:45 38.1 97 20 163/84 (110) 95 Room Air 11/20/17 23:55 37.4 84 24 163/77 (105) 93 Room Air 11/20/17 20:00 92 Room Air 11/20/17 19:23 37.3 92 18 169/83 (111) 92 Room Air 11/20/17 15:47 37.8 91 22 172/88 (116) 94 Room Air 11/20/17 12:00 37.4 106 20 162/83 (109) 96 Room Air (Svitlana Morales CRNP) Physical Exam Notes: General: no distress Eyes: normal inspection, PERLL Respiratory: chest non tender, crackles bilateral bases, no respiratory distress , no accessory muscle use Cardiac: regular rate and rhythm, no rub or gallop, no murmur, no edema, no jvd GI/: active bowel sounds, no abd pain or tenderness, soft, non distended Extremities: generalized weakness Neuro/Psych: alert and oriented x 3, flat affect, some confusion Skin: normal color, dry (Svitlana Morales CRNP) Laboratory Results Last 24 Hours Test 11/20/17 11:26 11/20/17 16:25 11/20/17 20:20 11/21/17 06:18 Bedside Glucose 116 mg/dl 114 mg/dl 155 mg/dl White Blood Count 4.36 K/uL Red Blood Count 3.88 M/uL Hemoglobin 11.5 g/dL Hematocrit 34.8 % Mean Corpuscular Volume 89.7 fL Mean Corpuscular Hemoglobin 29.6 pg Mean Corpuscular Hemoglobin Concent 33.0 g/dl RDW Standard Deviation 47.8 fL RDW Coefficient of Variation 14.6 % Platelet Count 241 K/uL Mean Platelet Volume 9.6 fL Sodium Level 142 mmol/L Potassium Level 3.7 mmol/L Chloride Level 109 mmol/L Carbon Dioxide Level 24 mmol/L Anion Gap 9.0 mmol/L Blood Urea Nitrogen 25 mg/dl Creatinine 1.25 mg/dl Est Creatinine Clear Calc Drug Dose 37.7 ml/min Estimated GFR () 52.3 Estimated GFR (Non- 45.1 BUN/Creatinine Ratio 20.0 Random Glucose 154 mg/dl Calcium Level 9.5 mg/dl Total Bilirubin 0.4 mg/dl Direct Bilirubin 0.1 mg/dl Aspartate Amino Transf (AST/SGOT) 13 U/L Alanine Aminotransferase (ALT/SGPT) 19 U/L Alkaline Phosphatase 91 U/L Total Protein 7.7 gm/dl Albumin 3.2 gm/dl Test 11/21/17 07:14 Bedside Glucose 142 mg/dl (Svitlana Morales CRNP) Assessment and Plan Ms. Medley is a 67 y/o female here with intentional drug overdose after apparently taking a week's worth of home meds: Lipitor, clonazepam, Lamictal, losartan, Singulair, Intentional drug overdose, h/o suicidal ideation, toxic encephalopathy, bipolar disorder -Initially Admitted to ICU for 24 hours, now monitored on PCU since 11/18, SR/ST on tele - tox screen was negative -Continue Seizure, aspiration and fall precautions -Consulted psychiatry - lamictal restarted, Zyprexa restarted at lower dose. Dr. Espitia to discuss with patient's outpatient psych -Lamictal level pending - Serial EKGs show stable QTc at baseline around 460 -Head CT no acute disease -Could not complete MRI as pt did not tolerate and could not stay still - restart clonazepam at lower dose to prevent withdrawal - next monthly Invega injection due 12/06 Fevers, PNA, possible aspiration during overdose -patient febrile again overnight - has been on and off since admission -CXR with right base infiltrate, not seen on CXR at admission -Patient's QTc has been stable at her baseline 460, given continued fevers after 4 days of clindamycin, will change to Levaquin for better gram negative coverage. BC were ngtd. Will continue serial EKGs and tele monitoring -Tylenol IV prn fever - per psych, chronically dysarthric, also recommends watching out for NMS as patient is on short and long acting antipsychotics - currently febrile and tachy but no rigidity HTN, HLD--stable -Continue home lipitor, norvasc, losartan - hydralazine prn Asthma -Singulair on hold H/o DM per outpatient records, however inpt labs only show h/o prediabetes -HgbA1c 6.1 on 11/17 -ss, BSGs ac & hs Chronic anemia, unclear etiology possibly of chronic kidney disease--stable -Baseline Hgb 10-11 -Hgb remains stable, w/in baseline CKD stage III--stable -Creat 1.25 - Baseline creatinine 1.3-1.5 GERD -restart ppi DVT prophylaxis -Heparin 5000 units SC q12h -ALONZO Ulloa Code Status -Level I, FULL RESUSCITATION STATUS Dispo: given continued fevers, will need to continued hospitalization. Psych to discuss with outpatient psychiatric care for discharge planning (Svitlana Morales ., RENETTA) RESEARCH PHYSICIST Physician Supervision Note: I discussed with Svitlana Moraels RESEARCH PHYSICIST and agree with findings and plan as documented in the note. Any exceptions or clarifications are listed here: None Patient continues to be concern for suicide or intentional drug overdose. Her fevers are confounding whether they are from the possibility of a pneumonia associate with her overdose versus neuroleptic malignant syndrome associate with her indications that she overdosed on. We will continue supportive care antibiotic therapy and evaluation for whether the patient may require inpatient psychiatric care at time of medical stability Documented By: Javier Montesinos (Javier Montesinos M.D.)
--- NOTE | 2017-11-21 12:01 | Psychiatric Progress Notes ---
Progress Note Date of Service Nov 21, 2017. Interval History Brenda Medley is a 67-year-old female who was brought to the ED by EMS as she was found unresponsive by her fiance. Pt is reported to have taken an intentional overdose of a week's worth of her home medications - exact medications and doses uncertain. Psychiatry consult requested due to intentional drug overdose. Chief Complaint "Upset I can't walk ". Subjective Patient was seen & assessed, and interval progress reviewed. Patient seen with Yasir Goodwin, MS 4. She still does not have her hearing aid, so the majority of communication was written. Although she is able to read questions and respond appropriately, she is more confused today, at times difficult to understand and to follow her train of thought. She indicates that she is upset that she is weak and having difficulty walking, and was informed that PT and OT consults have been ordered. She indicates that mood has been "about the same," and when asked about suicidal thoughts, states "not real bad." She is unable to clarify this further, and talks about missing Alex, and losing her Medicare card at another hospital. I met with her yesterday afternoon and reviewed my previous discussions with her, including that she reported she overdosed intentionally to end her life. He stated that he had asked her the day prior about mood and suicidal thoughts, and she had denied any concerns. She has not made any suicidal statements to him, and he felt the overdose must have been impulsive, as she has a history of impulsive self-harm. He wanted her to be able to go home with him at discharge, unless mood became unstable. He agreed to give her her medications daily so that she would not have access to large amounts of medications to try to prevent future impulsive overdoses. He stated that she has seen her outpatient psychiatrist, Dr. Hahn, since discharge from [facility], and her next appointment is scheduled in November. Review of Systems Patient reports weakness, confusion, disrupted sleep. Mental Status Exam During interview pt is: alert and oriented (To self and situation), cooperative Appearance: appropriately dressed Eye contact is: good Motor behavior is: other (Tardive movements of mouth and tongue) Speech: other (Dysarthric, at times incoherent) Affect: blunted Mood is: other ("Up and down") Thought process: goal directed (But sometimes answers with unrelated information) Thought content: reality based without delusions Suicidal thought are: present ("Not real bad," unable to clarify further.) Homicidal thoughts are: denied Hallucinations: denies auditory, denies visual Cognition: other (Language and attention impaired) Intelligence estimated to be: consistent with level of education Insight: impaired Judgement: impaired Impression 67-year-old female well-known to our service from multiple previous admissions. She was discharged from [facility] 11/03/17 and returned home with her partner Alex, and admits to an intentional overdose on a week's worth of home medications. Yesterday, lamotrigine was restarted at her home dose, and olanzapine was added back at a lower dose of 5 mg twice daily. Clonazepam is still being held. Initially after the overdose, she reported stable mood and denied further suicidal thoughts, but today reports suicidal thoughts, although she is poorly able to describe these or engage in a discussion, and appears more confused today. She is also febrile, tachycardic, hypertensive, and there is a concern for aspiration pneumonia, for which her antibiotic has been changed. Her case is complicated and I am not yet sure whether she will require inpatient psychiatric treatment at the time of medical clearance, but we will continue to follow and assist as able. Plan (1) Drug overdose, intentional 11/18 - Will need to be reassessed once patient is able to participate with evaluation - Will likely require long-term placement - either admission to long-term psychiatric facility or personal skilled nursing placement - Agree with brain MRI as ordered by primary medical team - Request records from [facility] in [place] to confirm medications, recommend restart when medically appropriate - Will continue to follow and assist as able 11/19 - Patient states she intentionally a week supply of her medications as she was upset about her life, but struggles to give more specific information. We will continue to try to talk to her about this as her AMS resolves. We will monitor her mood while admitted to the medical floor, involve her significant other, and consider the need for inpatient psychiatric treatment. - Will recommend that her partner, Alex, only give her 1 day supply of medications at a time, due to the risk of overdoses, as she is somewhat impulsive, so it may be difficult to predict when she might overdose. 11/20 - Spoke with patient's partner, Alex, who agreed to restrict her access to medications and give her 1 day supply at a time to prevent future impulsive overdose. (2) Bipolar 1 disorder with mixed features 11/18 - Recommend restart of home medications when appropriate per primary medical team and poison control recommendations - Will attempt to request records from [facility] in [place] to confirm medications, discharged ~2 weeks prior to this admission 11/19 -We have requested records from [facility] regarding her recent stay there. On Tuesday, we can coordinate care with her outpatient psychiatrist, Dr. Hicks. -She is due for her next Invega Sustenna shot on 12/06/2017. -See above regarding resumption of oral medications. 11/21 -Lamotrigine 125 mg daily resumed yesterday, and olanzapine 5 mg twice daily. Today I will resume a lower dose of clonazepam 0.25 mg twice daily to prevent withdrawal, as this could be contributing to hypertension and tachycardia. -Today she is febrile, tachycardic, hypertensive, and more confused; antibiotics are being adjusted to target aspiration pneumonia, but would also monitor closely for symptoms of NMS, as she is on a long-acting injectable antipsychotic as well as an oral atypical antipsychotic. No rigidity noted today, do not have a strong suspicion for NMS, but it should be on the differential with ongoing monitoring. Visit Code E&M Code: 89942 Risk Factors Assessment : Yes /single/: No Higher / Fall in social status: No Health problems: Yes Mental Health Diagnoses: Yes Substance use disorders: No Previous attempt: Yes Family history of suicide: Yes Previous psychiatric stay: Yes Smoker: No Protective Factors Assessment Lutheran beliefs: No : No Responsible for young children: No Employed: No Stable relationships: Yes Data Vital Signs Last 24 Hrs: Date Time Temp Pulse Resp B/P (MAP) Pulse Ox O2 Delivery O2 Flow Rate FiO2 11/21/17 09:13 Room Air 11/21/17 07:47 37.7 98 19 168/90 (116) 91 11/21/17 04:15 93 Room Air 11/21/17 03:45 38.1 97 20 163/84 (110) 95 Room Air 11/20/17 23:55 37.4 84 24 163/77 (105) 93 Room Air 11/20/17 20:00 92 Room Air 11/20/17 19:23 37.3 92 18 169/83 (111) 92 Room Air 11/20/17 15:47 37.8 91 22 172/88 (116) 94 Room Air 11/20/17 12:00 37.4 106 20 162/83 (109) 96 Room Air Meds Administered Last 24 Hrs: Meds Administered (Past 24Hrs) Medications (Trade) Dose Ordered Sig/Kelsey Route Start Time Stop Time Status Last Admin Dose Admin Insulin Aspart (novoLOG ASPART) SLIDING SCALE G... ACHS SC 11/19/17 16:15 12/19/17 16:14 11/21/17 08:54 2 UNITS Amlodipine Besylate (Norvasc Tab) 5 mg DAILY PO 11/20/17 09:00 12/20/17 08:59 11/21/17 08:53 5 MG Losartan Potassium (coZAAR TAB) 25 mg QAM PO 11/20/17 09:00 12/20/17 08:59 11/21/17 08:53 25 MG Lamotrigine (Lamictal Tab) 100 mg BID PO 11/20/17 21:00 12/20/17 20:59 11/21/17 08:53 100 MG Lamotrigine (Lamictal Tab) 25 mg BID PO 11/20/17 21:00 12/20/17 20:59 11/21/17 08:53 25 MG Olanzapine (Zyprexa Zydis Od Tab) 5 mg BID PO 11/20/17 21:00 12/20/17 20:59 11/21/17 08:53 5 MG Levofloxacin 750 mg/Prmx 150 ml @ 100 mls/hr Q48H IV 11/21/17 10:00 11/28/17 09:59 11/21/17 10:33 100 MLS/HR Lab Results Last 24 Hrs: Last 24 Hours Test 11/20/17 16:25 11/20/17 20:20 11/21/17 06:18 11/21/17 07:14 Bedside Glucose 114 mg/dl 155 mg/dl 142 mg/dl White Blood Count 4.36 K/uL Red Blood Count 3.88 M/uL Hemoglobin 11.5 g/dL Hematocrit 34.8 % Mean Corpuscular Volume 89.7 fL Mean Corpuscular Hemoglobin 29.6 pg Mean Corpuscular Hemoglobin Concent 33.0 g/dl RDW Standard Deviation 47.8 fL RDW Coefficient of Variation 14.6 % Platelet Count 241 K/uL Mean Platelet Volume 9.6 fL Sodium Level 142 mmol/L Potassium Level 3.7 mmol/L Chloride Level 109 mmol/L Carbon Dioxide Level 24 mmol/L Anion Gap 9.0 mmol/L Blood Urea Nitrogen 25 mg/dl Creatinine 1.25 mg/dl Est Creatinine Clear Calc Drug Dose 37.7 ml/min Estimated GFR () 52.3 Estimated GFR (Non- 45.1 BUN/Creatinine Ratio 20.0 Random Glucose 154 mg/dl Calcium Level 9.5 mg/dl Total Bilirubin 0.4 mg/dl Direct Bilirubin 0.1 mg/dl Aspartate Amino Transf (AST/SGOT) 13 U/L Alanine Aminotransferase (ALT/SGPT) 19 U/L Alkaline Phosphatase 91 U/L Total Protein 7.7 gm/dl Albumin 3.2 gm/dl Test 11/21/17 11:23 Bedside Glucose 161 mg/dl
[2017-11-21] MEDS ORDERED: CLONAZEPAM 0.5 MG TAB PO ONE (12:15)
[2017-11-21] MEDS ORDERED: CLONAZEPAM 0.5 MG TAB PO SCH (21:00)
[2017-11-21] MEDS: CLONAZEPAM 0.5 MG TAB PO SCH (21:04)
[2017-11-22 04:19] VITALS: BP 164/91; PULSE 93; TEMP 37.7; O2SAT 92
[2017-11-22 06:04] LABS: HEMATOCRIT 37.8 % (37-47); HEMOGLOBIN 12.1 g/dL (12.0-16.0); MEAN CELL VOLUME 89.6 fL (80-100); MEAN CORPUSCULAR HEMOGLOBIN 28.7 pg (25-34); MEAN PLATELET VOLUME 9.6 fL (7.4-10.4); PLATELET COUNT 270 K/uL (130-400); RED CELL DISTRIBUTION WIDTH CV 14.5 % (11.5-14.5); RED CELL DISTRIBUTION WIDTH SD 47.5 fL (36.4-46.3); WHITE BLOOD COUNT 4.42 K/uL (4.8-10.8)
[2017-11-22 06:36] LABS: ALBUMIN 3.2 gm/dl (3.4-5.0); ALKALINE PHOSPHATASE 93 U/L (45-117); ALT/SGPT 20 U/L (12-78); AST/SGOT 10 U/L (15-37); BLOOD UREA NITROGEN 30 mg/dl (7-18); CALCIUM 9.3 mg/dl (8.5-10.1); CARBON DIOXIDE 22 mmol/L (21-32); CREATININE 1.47 mg/dl (0.60-1.20); GLUCOSE 133 mg/dl (70-99); SODIUM 140 mmol/L (136-145); TOTAL PROTEIN 7.8 gm/dl (6.4-8.2)
[2017-11-22 06:41] VITALS: BP 167/84; PULSE 95; TEMP 37.6; O2SAT 95
[2017-11-22] MEDS: INSULIN ASPART 100 UNITS/ML 3 ML PEN SC SCH ×4 (08:27→20:05)
[2017-11-22] MEDS: PANTOprazole SOD 40 MG TAB PO SCH (08:30)
[2017-11-22] MEDS: CLONAZEPAM 0.5 MG TAB PO SCH ×2 (08:30→20:47)
[2017-11-22] MEDS: LOSARTAN POTASSIUM 25 MG TAB PO SCH (08:31)
[2017-11-22] MEDS: AMLODIPINE BESYLATE 5 MG TAB PO SCH (08:31)
[2017-11-22] MEDS: OLANZAPINE ZYDIS 5 MG ORALLY DIS. TAB PO SCH ×2 (08:32→20:47)
[2017-11-22] MEDS: HEPARIN SOD 5000 UNIT/0.5 ML CARP SQ SCH ×2 (08:43→20:48)
[2017-11-22] MEDS ORDERED: SIMETHICONE 80 MG CHEW PO PRN (10:45)
--- NOTE | 2017-11-22 10:50 | Psychiatric Progress Notes ---
Progress Note Date of Service Nov 22, 2017. Interval History Brenda Medley is a 67-year-old female who was brought to the ED by EMS as she was found unresponsive by her fiance. Pt is reported to have taken an intentional overdose of a week's worth of her home medications - exact medications and doses uncertain. Psychiatry consult requested due to intentional drug overdose. Chief Complaint "Dr. Trinidad, can you help me find my Medicare card?" Subjective Patient was seen & assessed and interval progress reviewed. She continues to be afebrile, hypertensive, tachycardic, and is tachypneic today as well. Labs today show elevated BUN and creatinine and leukocytopenia. EKG was normal sinus rhythm with a QTC of 449 and no change from previous studies. Blood cultures 2 have shown no growth to date. Her antibiotics were changed yesterday, and low-dose clonazepam resumed to prevent withdrawal. Spoke with her outpatient psychiatrist, Dr. Hahn, at the [facility] clinic to coordinate care. She states the patient saw her earlier this month, shortly after discharge from [facility], and was reporting stable mood but felt overmedicated and slowed. She opted to continue her medications for the time being until she had had a period of stability, due to her brittle bipolar disorder and rapid and severe decompensations in the past with lower doses of medications. Discussed the patient's overdose, and that she reported it was a suicide attempt. Also discussed her treatment plan. On my assessment today, the patient appears less confused, is able to answer questions appropriately, but remains worried about her Medicare card, which she thinks is lost. She describes mood as "not bad," and denies suicidal thoughts. She is also concerned about her weakness, and is willing to work with the physical therapist to improve her strength. Review of Systems + Weakness, unsteady gait, gas Mental Status Exam During interview pt is: alert and oriented, cooperative Appearance: appropriately dressed Eye contact is: good Speech: other (Mildly dysarthric, speech is at baseline.) Affect: blunted Mood is: other ("Not bad.") Thought process: goal directed Thought content: reality based without delusions Suicidal thought are: denied Homicidal thoughts are: denied Hallucinations: denies auditory, denies visual Cognition: other (Language and attention impaired) Intelligence estimated to be: consistent with level of education Insight: impaired Judgement: impaired Impression 67-year-old female well-known to our service from multiple previous admissions. She was discharged from [facility] 11/03/17 and returned home with her partner Alex, and admits to an intentional overdose on a week's worth of home medications. Lamotrigine was restarted at her home dose, and olanzapine was added back at a lower dose of 5 mg twice daily. Clonazepam was restarted at a lower dose yesterday to prevent withdrawal. She has been reporting fairly stable mood and is denying suicidal thoughts, and is psychiatrically appropriate for transfer to a rehab facility. We will continue to follow, and to coordinate with her outpatient psychiatrist regarding discharge plans. She will need to follow up with Dr. Hahn for ongoing medication management. Plan (1) Drug overdose, intentional 11/18 - Will need to be reassessed once patient is able to participate with evaluation - Will likely require long-term placement - either admission to long-term psychiatric facility or personal chcf placement - Agree with brain MRI as ordered by primary medical team - Request records from [facility] in [place] to confirm medications, recommend restart when medically appropriate - Will continue to follow and assist as able 11/19 - Patient states she intentionally a week supply of her medications as she was upset about her life, but struggles to give more specific information. We will continue to try to talk to her about this as her AMS resolves. We will monitor her mood while admitted to the medical floor, involve her significant other, and consider the need for inpatient psychiatric treatment. - Will recommend that her partner, Alex, only give her 1 day supply of medications at a time, due to the risk of overdoses, as she is somewhat impulsive, so it may be difficult to predict when she might overdose. 11/20 - Spoke with patient's partner, Alex, who agreed to restrict her access to medications and give her 1 day supply at a time to prevent future impulsive overdose. (2) Bipolar 1 disorder with mixed features 11/18 - Recommend restart of home medications when appropriate per primary medical team and poison control recommendations - Will attempt to request records from [facility] in [place] to confirm medications, discharged ~2 weeks prior to this admission 11/19 -We have requested records from [facility] regarding her recent stay there. On Tuesday, we can coordinate care with her outpatient psychiatrist, Dr. Hicks. -She is due for her next Invega Sustenna shot on 12/06/2017. -See above regarding resumption of oral medications. 11/21 -Lamotrigine 125 mg daily resumed yesterday, and olanzapine 5 mg twice daily. Today I will resume a lower dose of clonazepam 0.25 mg twice daily to prevent withdrawal, as this could be contributing to hypertension and tachycardia. -Today she is febrile, tachycardic, hypertensive, and more confused; antibiotics are being adjusted to target aspiration pneumonia, but would also monitor closely for symptoms of NMS, as she is on a long-acting injectable antipsychotic as well as an oral atypical antipsychotic. No rigidity noted today, do not have a strong suspicion for NMS, but it should be on the differential with ongoing monitoring. 11/22 -Continue lamotrigine and lower doses of olanzapine and clonazepam. Fever, tachypnea, tachycardia, and hypertension could be due to pneumonia, but we will continue to monitor for signs of NMS. Electrolytes normal yesterday, no leukocytosis. Could consider checking creatinine kinase if concern for NMS increases. For now, will continue lower dose of olanzapine to try to prevent decompensation of her brittle bipolar disorder, and will postpone increasing the dose due to the risk of NMS, oversedation, and slowing. -Care coordinated with outpatient psychiatrist, Dr. Hahn. -Patient appropriate for transfer to an inpatient rehab facility, and will need outpatient follow-up with her psychiatrist. Visit Code E&M Code: 52641 Risk Factors Assessment : Yes /single/: No Higher / Fall in social status: No Health problems: Yes Mental Health Diagnoses: Yes Substance use disorders: No Previous attempt: Yes Family history of suicide: Yes Previous psychiatric stay: Yes Smoker: No Protective Factors Assessment Latter-Day beliefs: No : No Responsible for young children: No Employed: No Stable relationships: Yes Data Vital Signs Last 24 Hrs: Date Time Temp Pulse Resp B/P (MAP) Pulse Ox O2 Delivery O2 Flow Rate FiO2 11/22/17 08:15 Room Air 11/22/17 06:41 37.6 95 26 167/84 (111) 95 Room Air 11/22/17 04:19 37.7 93 22 164/91 (115) 92 Room Air 11/22/17 04:15 Room Air 11/21/17 23:31 37.6 89 24 138/80 (99) 97 Room Air 11/21/17 20:30 93 Room Air 11/21/17 19:38 37.7 77 18 166/93 (117) 93 Room Air 11/21/17 15:26 37.5 94 18 128/77 (94) 93 Room Air 11/21/17 11:54 37.3 95 19 157/91 (113) 95 Room Air Meds Administered Last 24 Hrs: Meds Administered (Past 24Hrs) Medications (Trade) Dose Ordered Sig/Kelsey Route Start Time Stop Time Status Last Admin Dose Admin Lamotrigine (Lamictal Tab) 100 mg BID PO 11/20/17 21:00 12/20/17 20:59 11/22/17 08:31 100 MG Lamotrigine (Lamictal Tab) 25 mg BID PO 11/20/17 21:00 12/20/17 20:59 11/22/17 08:31 25 MG Olanzapine (Zyprexa Zydis Od Tab) 5 mg BID PO 11/20/17 21:00 12/20/17 20:59 11/22/17 08:32 5 MG Levofloxacin 750 mg/Prmx 150 ml @ 100 mls/hr Q48H IV 11/21/17 10:00 11/28/17 09:59 11/21/17 10:33 100 MLS/HR Pantoprazole Sodium (Protonix Tab) 40 mg QAM PO 11/22/17 09:00 12/22/17 08:59 11/22/17 08:30 40 MG Clonazepam (Klonopin Tab) 0.25 mg BID PO 11/21/17 21:00 12/21/17 20:59 11/22/17 08:30 0.25 MG Clonazepam (Klonopin Tab) 0.25 mg 1215 ONCE PO 11/21/17 12:15 11/21/17 12:16 DC 11/21/17 13:02 0.25 MG Lab Results Last 24 Hrs: Last 24 Hours Test 11/21/17 11:23 11/21/17 16:19 11/21/17 20:23 11/22/17 05:40 Bedside Glucose 161 mg/dl 93 mg/dl 123 mg/dl White Blood Count 4.42 K/uL Red Blood Count 4.22 M/uL Hemoglobin 12.1 g/dL Hematocrit 37.8 % Mean Corpuscular Volume 89.6 fL Mean Corpuscular Hemoglobin 28.7 pg Mean Corpuscular Hemoglobin Concent 32.0 g/dl RDW Standard Deviation 47.5 fL RDW Coefficient of Variation 14.5 % Platelet Count 270 K/uL Mean Platelet Volume 9.6 fL Sodium Level 140 mmol/L Potassium Level 4.0 mmol/L Chloride Level 109 mmol/L Carbon Dioxide Level 22 mmol/L Anion Gap 9.0 mmol/L Blood Urea Nitrogen 30 mg/dl Creatinine 1.47 mg/dl Est Creatinine Clear Calc Drug Dose 31.2 ml/min Estimated GFR () 43.0 Estimated GFR (Non- 37.1 BUN/Creatinine Ratio 20.7 Random Glucose 133 mg/dl Calcium Level 9.3 mg/dl Total Bilirubin 0.4 mg/dl Direct Bilirubin < 0.1 mg/dl Aspartate Amino Transf (AST/SGOT) 10 U/L Alanine Aminotransferase (ALT/SGPT) 20 U/L Alkaline Phosphatase 93 U/L Total Protein 7.8 gm/dl Albumin 3.2 gm/dl Test 11/22/17 07:25 Bedside Glucose 129 mg/dl
[2017-11-22 12:01] VITALS: BP 136/81; PULSE 95; TEMP 37.6; O2SAT 96
--- NOTE | 2017-11-22 15:03 | Hospitalist Progress Note ---
Hospitalist Progress Note Date of Service Nov 22, 2017. (Svitlana Morales .RNEETTA) Subjective Pt evaluation today including: conversation w/ patient, physical exam, chart review, lab review, review of inpatient medication list Voiding: no voiding problems Ms. Medley's only complaint this morning is gas pains in her stomach and flatulence but otherwise is feeling ok. ROS Constitutional: no chills, aches, sweats or fever Respiratory: no sob,cough, sputum, or wheezing Cardiac: no chest pain, palpitations, edema, orthopnea or lightheadedness GI: no nausea, vomiting, diarrhea or constipation : no dysuria or hesitancy Extremities: no joint pain or weakness Skin: no rash All other systems reviewed and negative (Svitlana Morales CRNP) Medications Medications Administered Medications (Trade) Dose Ordered Sig/Kelsey Route Start Time Stop Time Status Last Admin Dose Admin Heparin Sodium (Porcine) (Heparin Sq 5000 Unit/0.5ml) 5,000 unit Q12 SQ 11/17/17 21:00 12/17/17 20:59 11/22/17 08:43 5,000 UNIT Sodium Chloride 1,000 ml @ 100 mls/hr Q10H IV 11/17/17 16:30 11/17/17 20:29 DC 11/17/17 16:41 100 MLS/HR Hydralazine HCl (HydrALAZINE INJ) 10 mg Q6H PRN IV. 11/17/17 14:30 12/17/17 14:29 11/20/17 02:51 10 MG Parenteral Electrolyte Solution 1,000 ml @ 100 mls/hr Q10H IV 11/17/17 20:30 11/18/17 08:26 DC 11/18/17 07:06 100 MLS/HR Acetaminophen 650 mg/Empty Bag 65 ml @ 260 mls/hr Q6H PRN IV 11/18/17 06:45 12/18/17 06:44 11/18/17 14:37 260 MLS/HR Lactated Ringer's 1,000 ml @ 100 mls/hr Q10H IV 11/18/17 08:30 11/19/17 13:22 DC 11/19/17 04:08 100 MLS/HR Clindamycin Phosphate 600 mg/ Dextrose 54 ml @ 100 mls/hr Q8H IV 11/18/17 14:00 11/21/17 09:53 DC 11/21/17 05:12 100 MLS/HR Insulin Aspart (novoLOG ASPART) SLIDING SCALE G... ACHS SC 11/19/17 16:15 12/19/17 16:14 11/21/17 08:54 2 UNITS Amlodipine Besylate (Norvasc Tab) 5 mg DAILY PO 11/20/17 09:00 12/20/17 08:59 11/22/17 08:31 5 MG Losartan Potassium (coZAAR TAB) 25 mg QAM PO 11/20/17 09:00 12/20/17 08:59 11/22/17 08:31 25 MG Lamotrigine (Lamictal Tab) 100 mg BID PO 11/20/17 21:00 12/20/17 20:59 11/22/17 08:31 100 MG Lamotrigine (Lamictal Tab) 25 mg BID PO 11/20/17 21:00 12/20/17 20:59 11/22/17 08:31 25 MG Olanzapine (Zyprexa Zydis Od Tab) 5 mg BID PO 11/20/17 21:00 12/20/17 20:59 11/22/17 08:32 5 MG Levofloxacin 750 mg/Prmx 150 ml @ 100 mls/hr Q48H IV 11/21/17 10:00 11/28/17 09:59 11/21/17 10:33 100 MLS/HR Pantoprazole Sodium (Protonix Tab) 40 mg QAM PO 11/22/17 09:00 12/22/17 08:59 11/22/17 08:30 40 MG Clonazepam (Klonopin Tab) 0.25 mg BID PO 11/21/17 21:00 12/21/17 20:59 11/22/17 08:30 0.25 MG Clonazepam (Klonopin Tab) 0.25 mg 1215 ONCE PO 11/21/17 12:15 11/21/17 12:16 DC 11/21/17 13:02 0.25 MG (Svitlana Morales, RENETTA) Objective Vital Signs Date Time Temp Pulse Resp B/P (MAP) Pulse Ox O2 Delivery O2 Flow Rate FiO2 11/22/17 12:01 37.6 95 16 136/81 (99) 96 Room Air 11/22/17 08:15 Room Air 11/22/17 06:41 37.6 95 26 167/84 (111) 95 Room Air 11/22/17 04:19 37.7 93 22 164/91 (115) 92 Room Air 11/22/17 04:15 Room Air 11/21/17 23:31 37.6 89 24 138/80 (99) 97 Room Air 11/21/17 20:30 93 Room Air 11/21/17 19:38 37.7 77 18 166/93 (117) 93 Room Air 11/21/17 15:26 37.5 94 18 128/77 (94) 93 Room Air (Svitlana Morales CRNP) Physical Exam Notes: General: no distress Eyes: normal inspection, PERLL Respiratory: chest non tender, clear to auscultation, normal breath sounds, no respiratory distress, no accessory muscle use Cardiac: regular rate and rhythm, no rub or gallop, no murmur, no edema, no jvd GI/: active bowel sounds, no abd pain or tenderness, soft, non distended Extremities: normal range of motion, normal strength, non tender Neuro/Psych: alert and oriented x 3, flat affect Skin: normal color, dry (Svitlana Morales CRNP) Laboratory Results Last 24 Hours Test 11/21/17 16:19 11/21/17 20:23 11/22/17 05:40 11/22/17 07:25 Bedside Glucose 93 mg/dl 123 mg/dl 129 mg/dl White Blood Count 4.42 K/uL Red Blood Count 4.22 M/uL Hemoglobin 12.1 g/dL Hematocrit 37.8 % Mean Corpuscular Volume 89.6 fL Mean Corpuscular Hemoglobin 28.7 pg Mean Corpuscular Hemoglobin Concent 32.0 g/dl RDW Standard Deviation 47.5 fL RDW Coefficient of Variation 14.5 % Platelet Count 270 K/uL Mean Platelet Volume 9.6 fL Sodium Level 140 mmol/L Potassium Level 4.0 mmol/L Chloride Level 109 mmol/L Carbon Dioxide Level 22 mmol/L Anion Gap 9.0 mmol/L Blood Urea Nitrogen 30 mg/dl Creatinine 1.47 mg/dl Est Creatinine Clear Calc Drug Dose 31.2 ml/min Estimated GFR () 43.0 Estimated GFR (Non- 37.1 BUN/Creatinine Ratio 20.7 Random Glucose 133 mg/dl Calcium Level 9.3 mg/dl Total Bilirubin 0.4 mg/dl Direct Bilirubin < 0.1 mg/dl Aspartate Amino Transf (AST/SGOT) 10 U/L Alanine Aminotransferase (ALT/SGPT) 20 U/L Alkaline Phosphatase 93 U/L Total Protein 7.8 gm/dl Albumin 3.2 gm/dl Test 11/22/17 11:53 Bedside Glucose 112 mg/dl (Svitlana Morales, RENETTA) Assessment and Plan Ms. Medley is a 67 y/o female here with intentional drug overdose after apparently taking a week's worth of home meds: Lipitor, clonazepam, Lamictal, losartan, Singulair, Intentional drug overdose, h/o suicidal ideation, toxic encephalopathy, bipolar disorder -Initially Admitted to ICU for 24 hours, now monitored on PCU since 11/18, SR/ST on tele - tox screen was negative -Continue Seizure, aspiration and fall precautions -Consulted psychiatry - lamictal restarted, Zyprexa restarted at lower dose. Dr. Espitia to discuss with patient's outpatient psych -Lamictal level showed lamictal level was elevated, will defer to psych for lamictal dosing - Serial EKGs show stable QTc at baseline around 460 -Head CT no acute disease -Could not complete MRI as pt did not tolerate and could not stay still - restarted clonazepam at lower dose to prevent withdrawal - next monthly Invega injection due 12/06 Fevers, PNA, possible aspiration during overdose -patient febrile again overnight - has been on and off since admission -CXR with right base infiltrate, not seen on CXR at admission -Patient's QTc has been stable at her baseline 460, given continued fevers after 4 days of clindamycin, will change to Levaquin for better gram negative coverage. BC were ngtd. Will continue serial EKGs and tele monitoring -Tylenol IV prn fever - per psych, chronically dysarthric, also recommends watching out for NMS as patient is on short and long acting antipsychotics - currently mildly febrile and tachy but no rigidity HTN, HLD--stable -Continue home lipitor, norvasc, losartan - hydralazine prn Asthma -Singulair on hold H/o DM per outpatient records, however inpt labs only show h/o prediabetes -HgbA1c 6.1 on 11/17 -ss, BSGs ac & hs Chronic anemia, unclear etiology possibly of chronic kidney disease--stable -Baseline Hgb 10-11 -Hgb remains stable, w/in baseline CKD stage III--stable -Creat 1.25 - Baseline creatinine 1.3-1.5 GERD -restart ppi DVT prophylaxis -Heparin 5000 units SC q12h -ALONZO macias and SCDs Code Status -Level I, FULL RESUSCITATION STATUS Dispo: given continued fevers, will need to continued hospitalization. Once patient is afebrile, will send to rehab per PT/OT recommendation, discussed with CM (Svitlana Morales ., RENETTA) [employer] Physician Supervision Note: I discussed with Svitlana Morales [employer] and agree with findings and plan as documented in the note. Any exceptions or clarifications are listed here: None Patient continues to be monitored for suicide or intentional drug overdose. Her fevers are from the possibility of a pneumonia associate with her overdose versus neuroleptic malignant syndrome, continue supportive care antibiotic therapy and evaluation for whether the patient may require inpatient psychiatric care versus target process for subacute rehab at time of medical stability Documented By: Javier Montesinos (Javier Montesinos M.D.)
[2017-11-22 15:33] VITALS: BP 156/81; PULSE 94; TEMP 37.6; O2SAT 94
[2017-11-22 20:24] VITALS: TEMP 37.4
[2017-11-22 23:08] VITALS: BP 122/77; PULSE 73; TEMP 37.1; O2SAT 95
[2017-11-23] VITALS (7 sets, daily range): BP systolic 123–176; BP diastolic 76–83; PULSE 78–102; TEMP 36.8–37.7; O2SAT 91–95
[2017-11-23 06:31] LABS: HEMATOCRIT 37.6 % (37-47); HEMOGLOBIN 12.2 g/dL (12.0-16.0); MEAN CELL VOLUME 89.5 fL (80-100); MEAN CORPUSCULAR HGB CONC 32.4 g/dl (32-36); MEAN PLATELET VOLUME 10.1 fL (7.4-10.4); PLATELET COUNT 275 K/uL (130-400); RED CELL DISTRIBUTION WIDTH CV 14.7 % (11.5-14.5); WHITE BLOOD COUNT 5.62 K/uL (4.8-10.8)
[2017-11-23 07:02] LABS: ALBUMIN 3.2 gm/dl (3.4-5.0); ALKALINE PHOSPHATASE 82 U/L (45-117); ALT/SGPT 19 U/L (12-78); AST/SGOT 13 U/L (15-37); BLOOD UREA NITROGEN 36 mg/dl (7-18); CALCIUM 9.4 mg/dl (8.5-10.1); CARBON DIOXIDE 25 mmol/L (21-32); CREATININE 1.54 mg/dl (0.60-1.20); GLUCOSE 125 mg/dl (70-99); POTASSIUM 3.9 mmol/L (3.5-5.1); SODIUM 142 mmol/L (136-145); TOTAL PROTEIN 7.5 gm/dl (6.4-8.2)
[2017-11-23] MEDS: OLANZAPINE ZYDIS 5 MG ORALLY DIS. TAB PO SCH ×2 (07:37→20:57)
[2017-11-23] MEDS: AMLODIPINE BESYLATE 5 MG TAB PO SCH (07:38)
[2017-11-23] MEDS: PANTOprazole SOD 40 MG TAB PO SCH (07:38)
[2017-11-23] MEDS: LOSARTAN POTASSIUM 25 MG TAB PO SCH (07:38)
[2017-11-23] MEDS: HEPARIN SOD 5000 UNIT/0.5 ML CARP SQ SCH ×2 (07:46→21:03)
[2017-11-23] MEDS: CLONAZEPAM 0.5 MG TAB PO SCH ×2 (07:47→21:03)
[2017-11-23] MEDS ORDERED: SODIUM CHLORIDE 0.9% 1000ML 1,000 ML IV SCH (08:15)
[2017-11-23] MEDS ORDERED: HydrALAZINE HCL 20 MG/ML VIAL IV. PRN (08:30)
[2017-11-23] MEDS: LEVOFLOXACIN / D5W 750 MG in PREMIXED IN D5W 150 ML IV SCH (08:31)
[2017-11-23] MEDS: INSULIN ASPART 100 UNITS/ML 3 ML PEN SC SCH ×4 (08:37→20:58)
--- NOTE | 2017-11-23 09:57 | Hospitalist Progress Note ---
Hospitalist Progress Note Date of Service Nov 23, 2017. (Svitlana Morales CRNP) Subjective Pt evaluation today including: conversation w/ patient, physical exam, chart review, lab review, review of inpatient medication list Voiding: no voiding problems Ms. Medley continues to have a flat affect, denies pain or discomfort. No events on telemetry ROS Constitutional: no chills, aches, sweats or fever Respiratory: no sob,cough, sputum, or wheezing Cardiac: no chest pain, palpitations, edema, orthopnea or lightheadedness GI: no abdominal pain, nausea, vomiting, diarrhea or constipation : no dysuria or hesitancy Extremities: generalized weakness Skin: no rash All other systems reviewed and negative (Svitlana Morales CRNP) Medications Medications Administered Medications (Trade) Dose Ordered Sig/Kelsey Route Start Time Stop Time Status Last Admin Dose Admin Heparin Sodium (Porcine) (Heparin Sq 5000 Unit/0.5ml) 5,000 unit Q12 SQ 11/17/17 21:00 12/17/17 20:59 11/23/17 07:46 5,000 UNIT Sodium Chloride 1,000 ml @ 100 mls/hr Q10H IV 11/17/17 16:30 11/17/17 20:29 DC 11/17/17 16:41 100 MLS/HR Hydralazine HCl (HydrALAZINE INJ) 10 mg Q6H PRN IV. 11/17/17 14:30 11/23/17 08:30 DC 11/20/17 02:51 10 MG Parenteral Electrolyte Solution 1,000 ml @ 100 mls/hr Q10H IV 11/17/17 20:30 11/18/17 08:26 DC 11/18/17 07:06 100 MLS/HR Acetaminophen 650 mg/Empty Bag 65 ml @ 260 mls/hr Q6H PRN IV 11/18/17 06:45 12/18/17 06:44 11/18/17 14:37 260 MLS/HR Lactated Ringer's 1,000 ml @ 100 mls/hr Q10H IV 11/18/17 08:30 11/19/17 13:22 DC 11/19/17 04:08 100 MLS/HR Clindamycin Phosphate 600 mg/ Dextrose 54 ml @ 100 mls/hr Q8H IV 11/18/17 14:00 11/21/17 09:53 DC 11/21/17 05:12 100 MLS/HR Insulin Aspart (novoLOG ASPART) SLIDING SCALE G... ACHS SC 11/19/17 16:15 12/19/17 16:14 11/23/17 08:37 1 UNITS Amlodipine Besylate (Norvasc Tab) 5 mg DAILY PO 11/20/17 09:00 12/20/17 08:59 11/23/17 07:38 5 MG Losartan Potassium (coZAAR TAB) 25 mg QAM PO 11/20/17 09:00 11/23/17 09:51 DC 11/23/17 07:38 25 MG Lamotrigine (Lamictal Tab) 100 mg BID PO 11/20/17 21:00 12/20/17 20:59 11/23/17 07:37 100 MG Lamotrigine (Lamictal Tab) 25 mg BID PO 11/20/17 21:00 12/20/17 20:59 11/23/17 07:37 25 MG Olanzapine (Zyprexa Zydis Od Tab) 5 mg BID PO 11/20/17 21:00 12/20/17 20:59 11/23/17 07:37 5 MG Levofloxacin 750 mg/Prmx 150 ml @ 100 mls/hr Q48H IV 11/21/17 10:00 11/28/17 09:59 11/23/17 08:31 100 MLS/HR Pantoprazole Sodium (Protonix Tab) 40 mg QAM PO 11/22/17 09:00 12/22/17 08:59 11/23/17 07:38 40 MG Clonazepam (Klonopin Tab) 0.25 mg BID PO 11/21/17 21:00 12/21/17 20:59 11/23/17 07:47 0.25 MG Clonazepam (Klonopin Tab) 0.25 mg 1215 ONCE PO 11/21/17 12:15 11/21/17 12:16 DC 11/21/17 13:02 0.25 MG Sodium Chloride 1,000 ml @ 100 mls/hr Q10H IV 11/23/17 08:15 11/23/17 18:14 11/23/17 08:38 100 MLS/HR (Svitlana Morales CRNP) Objective Vital Signs Date Time Temp Pulse Resp B/P (MAP) Pulse Ox O2 Delivery O2 Flow Rate FiO2 11/23/17 08:00 91 Room Air 11/23/17 07:07 37.5 93 18 176/81 (112) 91 Room Air 11/23/17 02:55 37.7 94 23 154/81 (105) 92 Room Air 11/23/17 00:00 Room Air 11/22/17 23:08 37.1 73 20 122/77 (92) 95 Room Air 11/22/17 20:24 37.4 11/22/17 16:00 Room Air 11/22/17 15:33 37.6 94 18 156/81 (106) 94 Room Air 11/22/17 12:01 37.6 95 16 136/81 (99) 96 Room Air (Svitlana Morales CRNP) Physical Exam Notes: General: no distress, [place] Eyes: normal inspection, PERLL Respiratory: chest non tender, clear to auscultation, normal breath sounds, no respiratory distress, no accessory muscle use Cardiac: regular rate and rhythm, no rub or gallop, no murmur, no edema, no jvd GI/: active bowel sounds, no abd pain or tenderness, soft, non distended Extremities: generalized weakness, no rigidity Neuro/Psych: alert and oriented x 3, flat affect Skin: normal color, dry (Svitlana Morales CRNP) Laboratory Results Last 24 Hours Test 11/22/17 11:53 11/22/17 16:16 11/22/17 19:57 11/23/17 05:47 Bedside Glucose 112 mg/dl 108 mg/dl 180 mg/dl White Blood Count 5.62 K/uL Red Blood Count 4.20 M/uL Hemoglobin 12.2 g/dL Hematocrit 37.6 % Mean Corpuscular Volume 89.5 fL Mean Corpuscular Hemoglobin 29.0 pg Mean Corpuscular Hemoglobin Concent 32.4 g/dl RDW Standard Deviation 48.0 fL RDW Coefficient of Variation 14.7 % Platelet Count 275 K/uL Mean Platelet Volume 10.1 fL Sodium Level 142 mmol/L Potassium Level 3.9 mmol/L Chloride Level 110 mmol/L Carbon Dioxide Level 25 mmol/L Anion Gap 7.0 mmol/L Blood Urea Nitrogen 36 mg/dl Creatinine 1.54 mg/dl Est Creatinine Clear Calc Drug Dose 29.5 ml/min Estimated GFR () 40.6 Estimated GFR (Non- 35.0 BUN/Creatinine Ratio 23.5 Random Glucose 125 mg/dl Calcium Level 9.4 mg/dl Total Bilirubin 0.3 mg/dl Direct Bilirubin < 0.1 mg/dl Aspartate Amino Transf (AST/SGOT) 13 U/L Alanine Aminotransferase (ALT/SGPT) 19 U/L Alkaline Phosphatase 82 U/L Total Protein 7.5 gm/dl Albumin 3.2 gm/dl Test 11/23/17 07:24 Bedside Glucose 149 mg/dl (Svitlana Morales, RENETTA) Assessment and Plan Ms. Medley is a 67 y/o female here with intentional drug overdose after apparently taking a week's worth of home meds: Lipitor, clonazepam, Lamictal, losartan, Singulair, Intentional drug overdose, h/o suicidal ideation, toxic encephalopathy, bipolar disorder -Initially Admitted to ICU for 24 hours, now monitored on PCU since 11/18, SR/ST on tele - tox screen was negative -Continue Seizure, aspiration and fall precautions -Consulted psychiatry - lamictal restarted, Zyprexa restarted at lower dose. Dr. Espitia to discuss with patient's outpatient psych -Lamictal level showed lamictal level was elevated, will defer to psych for lamictal dosing - Serial EKGs show stable QTc at baseline around 460 -Head CT no acute disease -Could not complete MRI as pt did not tolerate and could not stay still - restarted clonazepam at lower dose to prevent withdrawal - next monthly Invega injection due 12/06 Fevers, PNA, possible aspiration during overdose -patient febrile again overnight - has been on and off since admission -CXR with right base infiltrate, not seen on CXR at admission -Patient's QTc has been stable at her baseline 460, given continued fevers after 4 days of clindamycin, will change to Levaquin for better gram negative coverage. BC were ngtd. Will continue serial EKGs -Tylenol IV prn fever - per psych, chronically dysarthric, also recommends watching out for NMS as patient is on short and long acting antipsychotics - currently mildly febrile and tachy but no rigidity - continue levaquin HTN, HLD--stable -Continue home lipitor, norvasc, hold losartan for elevated creat - hydralazine prn Elevated creatinine - creat 1.54 today - hold losartan and give 1 L NSS at 100 ml/hr Asthma -Singulair on hold H/o DM per outpatient records, however inpt labs only show h/o prediabetes -HgbA1c 6.1 on 11/17 -ss, BSGs ac & hs Chronic anemia, unclear etiology possibly of chronic kidney disease--stable -Baseline Hgb - -Hgb remains stable, w/in baseline CKD stage III--stable -Creat 1.25 - Baseline creatinine 1.3-1.5 GERD -restart ppi DVT prophylaxis -Heparin 5000 units SC q12h -ALONZO Ulloa Code Status -Level I, FULL RESUSCITATION STATUS Dispo: given continued fevers, will need to continued hospitalization. Once patient is afebrile, will send to rehab per PT/OT recommendation, discussed with CM and patient. Will transfer to med surg but continue daily EKGs and q4h vital signs. (Svitlana Morales ., RENETTA) MILLING PLANER OPERATOR Physician Supervision Note: I discussed with Svitlana Morales MILLING PLANER OPERATOR and agree with findings and plan as documented in the note. Any exceptions or clarifications are listed here: None Patient continues with low-grade temperatures were trying to evaluate for subacute rehabilitation it does not appear at this point time that she needs inpatient psychiatric care continue treatment for pneumonia and supportive care at this time Documented By: Javier Montesinos (Javier Montesinos M.D.)
[2017-11-24 00:17] VITALS: BP 146/87; PULSE 81; TEMP 37.1; O2SAT 94
[2017-11-24 07:27] VITALS: BP 158/84; PULSE 83; TEMP 36.8; O2SAT 92
[2017-11-24] MEDS: CLONAZEPAM 0.5 MG TAB PO SCH (08:39)
[2017-11-24] MEDS: AMLODIPINE BESYLATE 5 MG TAB PO SCH (08:40)
[2017-11-24] MEDS: PANTOprazole SOD 40 MG TAB PO SCH (08:40)
[2017-11-24] MEDS: OLANZAPINE ZYDIS 5 MG ORALLY DIS. TAB PO SCH (08:40)
[2017-11-24] MEDS: INSULIN ASPART 100 UNITS/ML 3 ML PEN SC SCH ×2 (08:44→12:13)
[2017-11-24] MEDS: HEPARIN SOD 5000 UNIT/0.5 ML CARP SQ SCH (08:44)
--- NOTE | 2017-11-24 10:43 | Neurology Consultation ---
Neurology Consultation Date of Consultation: Nov 24, 2017. Attending Physician: Svitlana Morales CRNP Primary Care Physician: Santos Galeano III, CRNP Reason for Consultation: Patient is a 67-year-old, was I asked to see at the request of RENETTA Garcia, for neurologic consultation regarding weakness and gait disturbance. History of Present Illness Source: patient, caregiver, clinic records, hospital records This patient has a very longstanding history of psychiatric illness including schizoaffective disorder, depression and anxiety, and carries a diagnosis of bipolar type 1. Records, that I can find, start in 1997 and she was a longstanding patient with multiple hospitalizations, having "tried just about every psychiatric medication there was", according to Dr. Mahmood, psychiatrist. She had been on lithium for approximately 20 years finally being discontinued early this spring. Over the years she has continued to have multiple psychiatric hospitalizations including a lengthy 1 earlier this year, and is followed closely by Dr. Hahn, psychiatrist at [facility]. After a 2 week stay, she was discharged from [facility], in [place], on November 03. She apparently saw Dr. Hahn once after this prior to admission at our institution November 17. Prior to admission she was apparently on clonazepam 0.5 mg twice daily, Lamictal 125 mg twice daily, olanzapine 10 mg twice daily, and Invega Sustaina, long-acting once a month shot. Apparently, she overdosed on medication the morning of admission and arrived at 1206 hours on November 17 with a temperature of 36.2, pulse of 79, respiratory rate 21, blood pressure 177/85, and O2 saturation 90%. She was described neurological he is unresponsive and somnolent moving all 4 limbs spontaneously particularly with pain. Her pupils were reactive. Chest x-ray showed cardiomegaly CT scan of the head was largely unremarkable with no obvious acute or chronic changes although there was some very minimal generalized atrophy. Laboratory studies revealed mild anemia which improved on admission and she has elevated BUN and creatinine. Hemoglobin A1c was 6.1 and glucoses have ranged between 120s and 140s. Tox screen was negative even for benzodiazepines and urinalysis was unremarkable. Cultures of urine and blood showed no growth. A Lamictal level was toxic at 24 on admission. Patient improved neurologically but it was found that she was weak in general and slow, with poor ambulation. An MRI of the brain was attempted but she was too claustrophobic. She is scheduled to go to [facility] soon. Currently, she has some mild low back pain and nonspecific dizziness. She is essentially deaf bilaterally, and although has hearing aids, does not have them with her. Past Medical/Surgical History Medical Problems: (1) Altered mental status Status: Acute (2) Depression Status: Acute (3) Diabetes mellitus type 2 Status: Chronic (4) Dizziness Status: Acute (5) Insomnia Status: Acute (6) Intentional drug overdose Status: Acute (7) Nausea & vomiting Status: Acute (8) Schizoaffective disorder, chronic condition with acute exacerbation Status: Acute (9) Suicidal ideation Status: Acute (10) Vomiting Status: Acute Longstanding history of schizoaffective disorder with some depression and anxiety and a diagnosis of bipolar 1 History of intellectual disabilities living with a significant other in a supervised apartment setting. Chronic renal disease, followed by Dr. Ovalles Gastroesophageal reflux disease Type 2 diabetes Dyslipidemia Hypertension Hypothyroidism Positive HLA B27 Asthma History of positive transverse colon adenocarcinoma, with decision in August of 2016 not to do a colectomy but to follow endoscopically Post bilateral cataract repair with lens implantation in 2017. Remote history of breast surgery Family History Mother age 91 of uncertain causes. Father age 75 of a heart attack. Social History Patient was a heavy cigarette smoker for many years (as much as 3-4 packs of cigarettes per day) quitting approximately 12 years ago. 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 This other individual, named Alex, also has intellectual and other disabilities. Smoking Status: Former smoker Smokeless Tobacco Use: No Alcohol Use: none Drug Use: none Marital Status: in relationship Housing Status: lives with significant other Occupation Status: retired, disabled Allergies Coded Allergies: Latex (Unverified Allergy, Severe, UNKNOWN, 11/17/17) Aspirin (Verified Allergy, Unknown, UNKNOWN REACTION, 11/17/17) Clozapine (Verified Allergy, Unknown, TOXIC REACTION, 11/17/17) Codeine (Verified Allergy, Unknown, UNKNOWN REACTION, 08/10/17) Ibuprofen (Verified Allergy, Unknown, UNKNOWN REACTION, 11/17/17) Lurasidone (Verified Allergy, Unknown, TOXIC REACTION, 08/10/17) Penicillins (Verified Allergy, Unknown, UNKNOWN REACTION, 11/17/17) AMOXIL Sulfa Antibiotics (Verified Allergy, Unknown, UNKNOWN REACTION, 11/17/17) Current Inpatient Medications Current Inpatient Medications Medications (Trade) Dose Ordered Sig/Kelsey Route Start Time Stop Time Status Last Admin Dose Admin Heparin Sodium (Porcine) (Heparin Sq 5000 Unit/0.5ml) 5,000 unit Q12 SQ 11/17/17 21:00 12/17/17 20:59 11/24/17 08:44 5,000 UNIT Acetaminophen 650 mg/Empty Bag 65 ml @ 260 mls/hr Q6H PRN IV 11/18/17 06:45 12/18/17 06:44 11/18/17 14:37 260 MLS/HR Insulin Aspart (novoLOG ASPART) SLIDING SCALE G... ACHS SC 11/19/17 16:15 12/19/17 16:14 11/24/17 08:44 1 UNITS Glucose (Glucose 40% Gel) 15-30 GRAMS 15 GRAMS... UD PRN PO 11/19/17 13:30 12/19/17 13:29 Glucose (Glucose Chew Tab) 4-8 Tablets 4 Tabl... UD PRN PO 11/19/17 13:30 12/19/17 13:29 Dextrose (Dextrose 50% 50ML Syringe) 25-50ML 25ML FOR ... UD PRN IV 11/19/17 13:30 12/19/17 13:29 Glucagon (Glucagon Inj) 1 mg UD PRN IM 11/19/17 13:30 12/19/17 13:29 Carbohydrates (Carbohydrates For Hypoglycemia) 15-30 GRAMS 15 grams if BSG 54-69... UD PRN PO 11/19/17 13:30 12/19/17 13:29 Amlodipine Besylate (Norvasc Tab) 5 mg DAILY PO 11/20/17 09:00 12/20/17 08:59 11/24/17 08:40 5 MG Lamotrigine (Lamictal Tab) 100 mg BID PO 11/20/17 21:00 12/20/17 20:59 11/24/17 08:39 100 MG Lamotrigine (Lamictal Tab) 25 mg BID PO 11/20/17 21:00 12/20/17 20:59 11/24/17 08:39 25 MG Olanzapine (Zyprexa Zydis Od Tab) 5 mg BID PO 11/20/17 21:00 12/20/17 20:59 11/24/17 08:40 5 MG Levofloxacin 750 mg/Prmx 150 ml @ 100 mls/hr Q48H IV 11/21/17 10:00 11/28/17 09:59 11/23/17 08:31 100 MLS/HR Pantoprazole Sodium (Protonix Tab) 40 mg QAM PO 11/22/17 09:00 12/22/17 08:59 11/24/17 08:40 40 MG Clonazepam (Klonopin Tab) 0.25 mg BID PO 11/21/17 21:00 12/21/17 20:59 11/24/17 08:39 0.25 MG Simethicone (Mylicon Chew Tab) 80 mg Q6H PRN PO 11/22/17 10:45 12/22/17 10:44 Hydralazine HCl (HydrALAZINE INJ) 10 mg Q4H PRN IV. 11/23/17 08:30 12/23/17 08:29 Review of Systems Constitutional: + weakness, + fatigue Eyes: No worsening of vision, No diplopia ENT: No sore throat, No trouble swallowing Respiratory: No cough, No shortness of breath Cardiovascular: No chest pain, No palpitations Abdomen: No pain, No nausea Musculoskeletal: + joint pain, No muscle pain Genitourinary - Female: No dysuria, No urinary incontinence Neurologic: + weakness, + balance problems, No numbness/tingling Psychiatric: + depression symptoms, No anxiety Endocrine: + fatigue Hematologic / Lymphatic: No abnormal bleeding/bruising Integumentary: No rash Allergic / Immunologic: No hives Physical Exam Vital Signs (Past 24 Hrs): Date Time Temp Pulse Resp B/P (MAP) Pulse Ox O2 Delivery O2 Flow Rate FiO2 11/24/17 07:45 Room Air 11/24/17 07:27 36.8 83 20 158/84 (108) 92 Room Air 11/24/17 00:17 37.1 81 18 146/87 (106) 94 Room Air 11/24/17 00:00 Room Air 11/23/17 15:45 Room Air 11/23/17 15:36 37.1 78 18 154/83 (106) 94 Room Air 11/23/17 14:12 36.8 99 18 129/79 (96) 95 Room Air 11/23/17 13:26 36.9 97 18 95 2.0 11/23/17 11:50 36.9 97 18 123/76 (92) 95 Room Air Patient is right-handed. The patient is awake and alert. Speech is soft and slow. Because of her bilateral deafness she has a nasal/dysarthric quality to her voice but I do not believe she has a true dysarthria or aphasia. Mentation and thought processes are slow but she was oriented to [facility], her age, the month, in the year. Communication is difficult because of her hearing loss. She can read and read lips to help communicate. She could follow one-step commands and imitate. Her attention and concentration was good. Appearance and grooming seemed unremarkable. The discs are very difficult to visualize due to small pupil size. Otherwise they seem unremarkable. Pupils are 2mm bilaterally and reactive to light. Extraocular eye muscles are intact without nystagmus. 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 Visual acuity and visual larios seem normal grossly to confrontation. There are no deficits to sensation of the face bilaterally. Corneal reflexes are positive bilaterally. Facial strength and symmetry is normal bilaterally. Hearing is markedly decreased bilaterally. Palate moves well without asymmetry. There is normal sternocleidomastoid and trapezius strength bilaterally. Tongue is midline with good strength bilaterally, however, her tongue protrudes throughout the entire interview and exam. Neck is with full range of motion without discomfort. There are no cervical bruits. There are no cranial or ocular bruits. Heart is without murmur. Cervical, thoracic, and lumbar spine are nontender to palpation. Gait is very slow. She shuffles with her steps and is narrow based and tends to fall backwards with her stance. She has decreased arm swing. With outstretched arms there is no obvious drift. There are no resting, postural, or action tremors. There is no ataxia with [id number] testing. There is decreased facility in the hands, and she is slow with her movements in general. There are no abnormal involuntary movements noted. She is quite bradykinetic in general. Motor strength is 4/5 diffusely in the arms bilaterally including deltoids, biceps, brachioradialis, wrist flexors and extensors, assembler small products, and intrinsic hand muscles. Motor strength is 4/5 diffusely in the legs bilaterally including hip flexors, quadriceps, hamstring, gastrocnemius, tibialis anterior, tibialis posterior, and peroneii muscles bilaterally. Toe extensors are normal and there is good bulk in the extensor digitorum brevis muscle bilaterally. This is a general weakness both proximally and distally without asymmetry. The limbs have good tone without obvious rigidity or spasticity, and there is no focal atrophy noted. Muscle bulk is normal, there is no tenderness, no myotonia noted to percussion, and no fasciculations seen. Sensory examination is intact to pin and touch throughout all four limbs. Reflexes are 1/4 in the biceps and triceps tendons bilaterally. The right brachioradialis seems absent and the left is 1/4. Quadriceps and Achilles tendon reflexes are absent bilaterally. Toes are downgoing with plantar stimulation bilaterally. Peripheral pulses are present and of normal quality distally in all four limbs. There is no peripheral edema noted. Laboratory Results Past 24 Hours: Test 11/24/17 07:19 Bedside Glucose 138 mg/dl (70-90) Imaging HEAD WITHOUT CONTRAST (CT) CLINICAL HISTORY: 67 years-old Female with aloc. Acute loss of consciousness. TECHNIQUE: Multiple axial CT images of the head were obtained without contrast. A dose lowering technique was utilized adhering to the principles of ALARA. CT DOSE: 1151.75 mGy.cm COMPARISON: CT head 01/14/2017. FINDINGS: No acute intracranial hemorrhage, midline shift, intracranial mass, hydrocephalus, territorial ischemia or abnormal extra-axial collection. The calvarium is intact. The paranasal sinuses, mastoid air cells, and middle ear cavities are clear. IMPRESSION: No acute intracranial abnormality. The above report was generated using voice recognition software. It may contain grammatical, syntax or spelling errors. Electronically signed by: Nguyễn Ferrer M.D. 11/17/2017 8:58 PM Impression 1. Weakness and gait disturbance Patient has a generalized diffuse mild weakness without obvious myopathic pattern. Her CK was 25. Her gait abnormality appears to be extrapyramidal in origin She has generalized bradykinesia with a significant masklike face, without resting tremor or significant rigidity. She shuffles and has decreased arm swing with her gait which is an extra pyramidal feature also. Her tongue protrudes but she does not have dyskinesia or any choreoathetosis. I believe this is consistent with her longstanding and current usage of neuroleptics. She has been on multiple medications with rather large doses over time. Interestingly, I cannot entirely exclude chronic lithium toxicity (syndrome of irreversible lithium induced neurotoxicity or SILENT) as she was on lithium for over 20 years. SILENT predominantly gives cerebellar signs with ataxia and nystagmus and choreoathetoid movements. However, a can produce myopathy and extra pyramidal side effects. 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 CT scan of the head was unremarkable and showed no chronic ischemic changes. There are no focal neurologic findings on examination 2. Longstanding psychiatric problems including schizoaffective issues, depression, anxiety and currently has a diagnosis of bipolar 1. She is followed closely by Psychiatry. 3. Bilateral deafness This hinders communication ability and could, at times, give the perception that she is confused 4. Longstanding intellectual disabilities 5. Recent medication overdose with toxic lamotrigine level at 24. This toxicity would be temporary, might result in some nausea, confusion, or balance issues. I believe enough time has gone by that she is completely recovered from any excess lamotrigine affects. Plan 1. Although an MRI of the brain would be reasonable, I am not certain that it is necessary, as she does not have any focal neurologic deficits or other suggestions of stroke or central nervous system tumor. I am not certain that even if we obtained an MRI that it would change our treatment plan. 2. Agree with psychiatry in restarting her medications at lower doses, including Zyprexa and clonazepam. 3. Keeping lamotrigine at 125 mg twice daily is reasonable. A trough level could be obtained in 1-2 weeks. 4. The patient is probably going to [facility] 5. The patient needs consideration of placement in a facility or living situation that can keep a closer eye on her and her use of medications. Otherwise, I have no further neurologic testing or treatment recommendations to make at this time. Please contact me if I can be of further assistance. Overall, I spent a total of 120 minutes with this case including records review , direct patient evaluation at bedside, and discussion of the case with Dr. Montesinos, Svitlana Morales, her clinical staff, and the patient herself regarding differential diagnosis and treatment options.
[2017-11-24] MEDS ORDERED: KLN5 PO (13:49)
[2017-11-24] MEDS ORDERED: LEVO1TAB35 PO (13:49)
--- NOTE | 2017-11-24 13:51 | Discharge Instructions ---
Discharge Instructions Date of Service Nov 24, 2017. Admission Reason for Admission: Drug Overdose, Intentional Discharge Discharge Diagnosis / Problem: Intentional drug overdose, aspiration pneumonia Discharge Goals Goal(s): Improve function, Improve disease control Activity Recommendations Activity Level: Assistance Required Therapies: Physical Therapy, Occupational Therapy . Additional Information Patient informed of condition: Yes Advance Directives: No DNR: No Level of Care: Acute Rehab Communicable Disease: No Prognosis: Stable Ham Catheter: No Instructions / Follow-Up Instructions / Follow-Up Patient is chronically dysarthric at baseline and very hard of hearing - need to communicate with her by writing notes Please give last dose of Levaquin tomorrow. Patient should follow up with primary care within about a week and with her outpatient psych provider. Patient is due for next Invega injection 12/06 Please have prp drawn on Tuesday and hold losartan until resulted Current Hospital Diet Patient's current hospital diet: AHA Diet (Heart Healthy) Discharge Diet Recommended Diet: AHA Diet (Heart Healthy) Pending Studies Studies pending at discharge: no Physician Orders On Transfer POLST Discussion: without POLST completion Laboratory Results Hemoglobin A1c Test 11/17/17 12:48 Range/Units Estimated Average Glucose 128 mg/dl Hemoglobin A1c 6.1 H 4.5-5.6 % Medical Emergencies . Who to Call and When: Medical Emergencies: If at any time you feel your situation is an emergency, please call 911 immediately. . Non-Emergent Contact Non-Emergency issues call your: Primary Care Provider Call Non-Emergent contact if: you have any medication questions . . "Provider Documentation" section prepared by Svitlana Morales. . Core Measure Problem Core Measures: None
--- NOTE | 2017-11-24 14:11 | Discharge Summary ---
Discharge Summary Date of Service Nov 24, 2017. Discharge Summary Admission Date: Nov 17, 2017 at 15:21 Discharge Date: Nov 24, 2017 Discharge Disposition: Rehab Principal Diagnosis: Intentional overdose Problems/Secondary Diagnoses: h/o suicidal ideation, toxic encephalopathy, bipolar disorder, Fevers, PNA, possible aspiration during overdose, HTN, HLD--stable, Elevated creatinine, Asthma, H/o DM per outpatient records, however inpt labs only show h/o prediabetes, Chronic anemia, CKD stage III--stable, GERD Immunizations: Have You Had Influenza Vaccine: No History of Tetanus Vaccine?: Yes History of Pneumococcal: No History of Hepatitis B Vaccine: Unknown Procedures: CHEST ONE VIEW PORTABLE CLINICAL HISTORY: hypoxia dyspnea COMPARISON STUDY: 11/17/2017 FINDINGS: Interval development of a right basilar infiltrate. Lungs otherwise appear clear. Diaphragms are smooth. IMPRESSION: Infiltrate right base. HEAD WITHOUT CONTRAST (CT) CLINICAL HISTORY: 67 years-old Female with aloc. Acute loss of consciousness. TECHNIQUE: Multiple axial CT images of the head were obtained without contrast. A dose lowering technique was utilized adhering to the principles of ALARA. CT DOSE: 1151.75 mGy.cm COMPARISON: CT head 01/14/2017. FINDINGS: No acute intracranial hemorrhage, midline shift, intracranial mass, hydrocephalus, territorial ischemia or abnormal extra-axial collection. The calvarium is intact. The paranasal sinuses, mastoid air cells, and middle ear cavities are clear. IMPRESSION: No acute intracranial abnormality. Consultations: Dr. Rhodes from neurology Dr. Espitia from psychiatry Medication Reconciliation New Medications: Levofloxacin (Levaquin) 750 Mg Tab 750 MG PO Q48H for 3 Days, #1 TAB Clonazepam (Clonazepam) 0.5 Mg Tab 0.25 MG PO BID for 3 Days, #3 TAB Continued Medications: Acetaminophen Tab (Tylenol) 325 Mg Tab 650 MG PO Q4H PRN for Pain, TAB Amlodipine (Norvasc) 5 Mg Tab 5 MG PO DAILY, TAB Atorvastatin (Lipitor) 10 Mg Tab 10 MG PO HS, TAB Bisacodyl (Dulcolax) 5 Mg Tab 10 MG PO UD PRN for Constipation for 1 Day, #2 TAB Fish Oil ([place]-3) 1 Ea Cap 1 CAP PO BIDM, CAP Lamotrigine (Lamictal) 25 Mg Tab 25 MG PO BID WITH 100MG TAB FOR 125MG DOSE Lamotrigine (Lamictal) 100 Mg Tab 100 MG PO BID, TAB WITH 25MG TAB FOR 125MG DOSE Losartan Potassium (Losartan Potassium) 25 Mg Tab 25 MG PO QAM Montelukast Sodium (Singulair) 10 Mg Tab 10 MG PO QAM, TAB Multivitamins/Minerals (Mvi With Minerals) Tab 1 TAB PO DAILY Olanzapine (Zyprexa Zydis Odt) 10 Mg Kelley 10 MG PO BID, KELLEY Omeprazole (Prilosec) 40 Mg Cap 40 MG PO QAM, CAP BEFORE BREAKFAST Paliperidone Palmitate (Invega Sustenna) 156 Mg/Ml Inj 156 MG IM MONTHLY Last given 11/08/17. Trazodone Hcl (Trazodone) 50 Mg Tab 25 MG PO HS Discontinued Medications: Clonazepam (Klonopin) 0.5 Mg Tab 0.5 MG PO BID, TAB Discharge Exam ROS ROS Constitutional: no chills, aches, sweats or fever Respiratory: no sob,cough, sputum, or wheezing Cardiac: no chest pain, palpitations, edema, orthopnea or lightheadedness GI: no abdominal pain, nausea, vomiting, diarrhea or constipation : no dysuria or hesitancy Extremities: no joint pain or weakness Skin: no rash All other systems reviewed and negative General: no distress Eyes: normal inspection, PERLL, baseline 1mm pupils Respiratory: chest non tender, clear to auscultation, normal breath sounds, no respiratory distress, no accessory muscle use Cardiac: regular rate and rhythm, no rub or gallop, no murmur, no edema, no jvd GI/: active bowel sounds, no abd pain or tenderness, soft, non distended Extremities: normal range of motion, normal strength, non tender Neuro/Psych: alert and oriented x 3, flat affect, baseline dysarthria Skin: normal color, dry Hospital Course This is a 67 y/o female with a history of HTN, asthma, bipolar I disorder, CKD stage III, and GERD who presented to the ED on 11/17 unresponsive following an intentional drug overdose. The patient was found unresponsive on the floor by her partner. She had her weekly pill organizer next to her, empty. She has a history of suicidal ideation. Intentional drug overdose, h/o suicidal ideation, toxic encephalopathy, bipolar disorder -Initially Admitted to ICU for 24 hours and transferred after - tox screen was negative -put on Seizure, aspiration and fall precautions -Consulted psychiatry - lamictal restarted, Zyprexa restarted at lower dose. Dr. Espitia to discuss with patient's outpatient psych -Lamictal level showed lamictal level was elevated, per psych rec, lamictal left at home dosing - Serial EKGs show stable QTc at baseline around 460 -Head CT no acute disease -Could not complete MRI as pt did not tolerate and could not stay still - restarted clonazepam at lower dose to prevent withdrawal - patient can continue on 0.25 mg bid - next monthly Invega injection due 12/06 - Neuro consultation - Dr. Rhodes believes her symptoms are consistent with her longstanding and current usage of neuroleptics. - Per psych, patient is chronically dysarthric and very chemehuevi Fevers, PNA, possible aspiration during overdose -patient febrile on and off 11/17-11/23 - no fevers for over 24 hours -CXR with right base infiltrate, not seen on CXR at admission -Patient's QTc has been stable at her baseline 460, given continued fevers after 4 days of clindamycin, she was changed to Levaquin for better gram negative coverage - last day 11/25. BC were ngtd. -Tylenol IV prn fever HTN, HLD--stable -Continue home lipitor, norvasc, hold losartan for elevated creat Elevated creatinine, CKD III - creat 1.54 11/23 - held losartan and gave 1 L NSS at 100 ml/hr - would repeat her creatinine in a couple of days and continue to hold losartan until then Asthma -Singulair on hold H/o DM per outpatient records, however inpt labs only show h/o prediabetes -HgbA1c 6.1 on 11/17 -ss, BSGs ac & hs Chronic anemia, unclear etiology possibly of chronic kidney disease--stable -Baseline Hgb 10- -Hgb remains stable, w/in baseline GERD -restart ppi Total Time Spent: Greater than 30 minutes This includes examination of the patient, discharge planning, medication reconciliation, and communication with other providers. Discharge Instructions Please refer to the electronic Patient Visit Report (Discharge Instructions) for additional information. Follow-Up primary care, psychiatry, prp Tuesday [facility]
[2017-11-24 14:35] VITALS: BP 158/84; PULSE 83; TEMP 36.8; O2SAT 92
[2017-11-24 14:52] VITALS: BP 130/78; PULSE 86; TEMP 36.9; O2SAT 96
== END 2017-11-24 17:18 | DRG 917 ==
LOC: EDBD 11:49 → C.EDA 11:50 → CANRESERV 15:04 → ENRESERV 15:04 → C.MSICU 15:21 → CANBEDREQ 15:31 → ENRESERV 15:34 → C.2T 11-18 15:50 → EDBEDREQSVC 11-23 12:20 → ENRESERV 11-23 12:29 → C.MS2W 11-23 14:05
PROVIDERS: ADMIT Hospitalist; ATTEND Nurse Practitioner Family
DX: T46.6X2A Poisoning by antihyperlipidemic and antiarteriosclerotic drugs, intentional self-harm, initial encounter (principal); T42.4X2A Poisoning by benzodiazepines, intentional self-harm, initial encounter; J69.0 Pneumonitis due to inhalation of food and vomit; G92 Toxic encephalopathy; F31.60 Bipolar disorder, current episode mixed, unspecified; T42.72XA Poisoning by unspecified antiepileptic and sedative-hypnotic drugs, intentional self-harm, initial encounter; N18.3 Chronic kidney disease, stage 3 (moderate); K21.9 Gastro-esophageal reflux disease without esophagitis; E78.5 Hyperlipidemia, unspecified; I12.9 Hypertensive chronic kidney disease with stage 1 through stage 4 chronic kidney disease, or unspecified chronic kidney disease; E03.9 Hypothyroidism, unspecified; E11.21 Type 2 diabetes mellitus with diabetic nephropathy; Z88.6 Allergy status to analgesic agent; Z88.8 Allergy status to other drugs, medicaments and biological substances; D63.1 Anemia in chronic kidney disease; Z88.0 Allergy status to penicillin; Z88.2 Allergy status to sulfonamides; J45.909 Unspecified asthma, uncomplicated; Z83.3 Family history of diabetes mellitus; Z82.49 Family history of ischemic heart disease and other diseases of the circulatory system; Y92.019 Unspecified place in single-family (private) house as the place of occurrence of the external cause; Z87.891 Personal history of nicotine dependence

== ENCOUNTER 2021-08-09 14:37 | Inpatient (IN) ==
[2021-08-09 15:07] LABS: Appearance Urine Clear (Clear); Bacteria Urine Automated Negative (Negative); Bilirubin Urine Negative (Negative); Blood Urine Negative (Negative); Cast Urine Automated 0 /lpf (0-5); Color Urine Yellow; Glucose Urine UA Negative (Negative); Ketones Urine Negative (Negative); Leukocyte Esterase Urine Trace (Negative); Nitrite Urine Negative (Negative); Protein Urine 1+ (Negative); RBC Urine Automated 0-4 /hpf (0-4); Specific Gravity Urine 1.005 (1.000-1.030); Urobilinogen Urine Negative (Negative); pH Urine 6.5 (4.5-7.5)
[2021-08-09 15:38] LABS: Eosinophils # (auto) 0.01 K/uL (0-0.5); Eosinophils % (auto) 0.2 %; Hematocrit (blood only) 30.3 % (37-47); Hemoglobin 9.6 g/dL (12.0-16.0); Immature Granulocytes # (auto) 0.02 K/uL (0.00-0.02); Immature Granulocytes % (auto) 0.4 %; Lymphocytes # (auto) 0.71 K/uL (1.2-3.4); Lymphocytes % (auto) 13.3 %; Mean Corpuscular Hemoglobin 31.1 pg (25-34); Mean Corpuscular Hgb Conc 31.7 g/dL (32-36); Mean Corpuscular Volume 98.1 fL (80-100); Mean Platelet Volume 8.9 fL (7.4-10.4); Monocytes # (auto) 0.52 K/uL (0.11-0.59); Monocytes % (auto) 9.8 %; Neutrophils # (auto) 4.06 K/uL (1.4-6.5); Neutrophils % (auto) 76.3 %; Platelet Count 320 K/uL (130-400); RDW Standard Deviation 53.7 fL (36.4-46.3); Red Blood Count 3.09 M/uL (4.2-5.4); White Blood Count 5.32 K/uL (4.8-10.8)
[2021-08-09 16:08] LABS: Troponin I < 0.03 ng/ml (0-0.04)
[2021-08-09 16:13] LABS: Alanine Aminotransferase 30 U/L (7-52); Albumin Globulin Ratio 1.5 (0.9-2); Alkaline Phosphatase 67 U/L (34-104); Anion Gap 7 (3-11); Aspartate Aminotransferase 18 U/L (13-39); BUN Creatinine Ratio 10.1 (10-20); Bilirubin,Total 0.3 mg/dl (0.2-1.0); Blood Urea Nitrogen 16 mg/dl (6-23); Calcium 9.3 mg/dl (8.5-10.1); Carbon Dioxide 26 mmol/L (21-32); Chloride 108 mmol/L (98-107); Est GFR (Non-African American) 32.8 ml/min; Globulin 2.7 gm/dl (2.5-4.0); Glucose 88 mg/dl (70-99(Fasting)); Magnesium 2.2 mg/dl (1.7-2.4); Potassium 3.7 mmol/L (3.5-5.1); Sodium 141 mmol/L (136-145); Total Protein 6.7 gm/dl (6.0-8.3)
--- NOTE | 2021-08-09 17:02 | XRay Report ---
THORACIC SPINE 3 VIEWS CLINICAL HISTORY: Fall. Thoracic back pain. FINDINGS: AP, lateral, and swimmer's views of the thoracic spine are compared to study dated 4. The skeletal structures are osteopenic. There is no radiographic evidence of acute fracture or mal alignment involving the thoracic spine. Vertebral body height and alignment are maintained. Anterior osteophytes are seen throughout. The transverse processes and pedicles are grossly intact as seen on the frontal view. Multilevel degenerative disc space narrowing is noted. The visualized lung parenchy ma appears clear. IMPRESSION: There is no radiographic evidence of acute fracture or malalignment involving the thoraci c spine. Electronically signed by: Matias Jasmine M.D. 08/09/2021 5:00 PM
--- NOTE | 2021-08-09 17:03 | XRay Report ---
SINGLE VIEW CHEST CLINICAL HISTORY: Generalized weakness. FINDINGS: An AP portable chest radiograph is compared to study dated 08/07/2021. Correlation is made wi th chest CT dated 04/10/2018. The examination is degraded by portable technique and patient rotation. The heart is enlarged noting atherosclerotic calcification of the thoracic aorta. The pulmonary vasc ulature is noncongested. Chronic interstitial thickening is similar to previous. Mild atelectasis is noted at the lung bases. The lungs and pleural spaces are otherwise clear. No pneumothorax is seen. T he skeletal structures are osteopenic. There are healed bilateral rib fractures. IMPRESSION: Cardiomegaly with no active disease in the chest. ACT 112: Negative or not required by law. Electronically signed by: Matias Jasmine M.D. 08/09/2021 5:01 PM
--- NOTE | 2021-08-09 17:05 | XRay Report ---
LUMBAR SPINE 5 VIEWS CLINICAL HISTORY: Fall. Low back pain. FINDINGS: 5 views of the lumbar spine are compared to study dated 05/03/2018. Correlation is made with abdominal CT dated 12/20/2019. The skeletal structures are osteopenic. There is no radiographic eviden ce of acute fracture or malalignment involving the lumbar spine. Vertebral body height is maintained throughout the lumbar spine. There are bilateral pars defects at L5 with 9 mm anterolisthesis at L5-S 1. There is minimal anterolisthesis at L4-L5. Alignment is otherwise preserved. There is mild hyperlo rdosis. Anterior and lateral marginal osteophytes are seen throughout. Facet arthropathy is noted in the mid to lower lumbar region. There is moderate disc space narrowing at L5-S1. Only mild disc space narrowing is seen at the remaining lumbar levels. The visualized sacrum and bony pelvis appear intac t. Sclerotic change is noted in the sacroiliac joints. No bowel obstruction is identified. There is a dvanced atherosclerotic calcification of the abdominal aorta. There are healed bilateral rib fracture s. IMPRESSION: 1. There is no radiographic evidence of acute fracture or malalignment involving the lumbar spine. 2. Osteopenia with bilateral pars defects at L5 and spondylotic change as above. Electronically signed by: Matias Jasmine M.D. 08/09/2021 5:04 PM
--- NOTE | 2021-08-09 17:10 | Emergency Department Note ---
Impression & Plan Generalized weakness, Multiple falls, Back pain ED Provider Note INFORMANT: Patient and significant other ED PROVIDER(S): Lawrence Aden MD CHIEF COMPLAINT: Fall PLAN: Disposition: Admitted Condition: Good Outpatient prescription management: none Referral: None MEDICAL DECISION MAKING: She presented after a series of multiple falls. She was recommended for possible admission for PT and OT by rn case mgr. She complained of some mild back pain. We communicated via writing and she did very well with this. She was given oral Tylenol. X-ray imaging did not show any acute fracture or dislocation. Her laboratory testing was unremarkable. Urinalysis negative. The patient had slight changes on her ECG. She did complain of some chest discomfort and her troponin was negative. Patient and significant other were informed. I did discuss this with case management. Given the abnormal ECG work-up should be performed in the hospital. [facility] Patient was evaluated in the ER and admitted for further management. Triage Nursing notes reviewed and agree them. Vital Signs: reviewed and remarkable for no significant abnormalities Differential diagnosis: Trauma, infection, dehydration, metabolic abnormality, hypo/hyperglycemia, electrolyte disturbance, anemia, hypoxia, cardiac sources, intracerebral event, toxicologic, neurologic, as well as other pathologies. Diagnostics interpreted by me: ECG: Twelve-lead ECG reveals a normal sinus rhythm at 85 bpm. There is anterior T wave inversions. PVCs or PACs. When compared to August 07, 2021 this is new. Cardiac Monitoring: Cardiac monitoring ordered by me: The patient was placed on continuous cardiac monitoring and observed. It revealed a normal sinus rhythm at 98 beats per minute without ectopy or evidence of dysrhythmia. Imaging studies: Chest x-ray. Findings: A chest x-ray was performed and revealed no pneumothorax, effusion, infiltrate, pulmonary edema, free air under the diaphragm, or wide mediastinum. Impression: No acute disease. Lumbar thoracic x-ray imaging revealed degenerative changes without acute fracture or dislocation. HPI: The patient is a 71 year old female who presents to the Emergency Room with complaints of a ground-level fall. This occurred just prior to arrival and is and was described by the patient significant other as her getting tripped up in some clothing. The patient has had several visits to the ER for similar events recently. She has a total of 6 falls this week. The patient also notes the following associated symptoms, lumbar and thoracic back pain, upset stomach, chest discomfort intermittent. The patient has taken no medication for relieving factors. Current pain is rated as 2/10. Patient is deaf and communicates via writing board well. Significant other also help with the history. Pt denies LOC, headache, fevers, chills, diaphoresis, visual changes, neck pain, breathing difficulties, nausea, vomiting, abdominal pain, melena, hematochezia, urinary symptoms, numbness, weakness, lymphadenopathy, rash, or other complaints. ROS: See above HPI for pertinent positives & negatives. A total of 10 systems reviewed and were otherwise negative. PAST MEDICAL HISTORY:See Below , anxiety, schizoaffective disorder, bipolar PAST SURGICAL HISTORY:See Below, FAMILY HISTORY:See Below SOCIAL HISTORY:See Below, former smoker HOME MEDICATIONS:See Below ALLERGIES:See Below VITALS:See Below PHYSICAL EXAMINATION: GENERAL: Awake, alert, well-appearing, in no distress. Patient is in good spirits. HENT: Normocephalic, atraumatic. Oropharynx unremarkable. EYES: Normal conjunctiva. Sclera non-icteric. NECK: Inspection normal. Non-tender. Supple. No nuchal rigidity. FROM. No masses. RESPIRATORY: Clear to auscultation. No wheezes. No rales. Normal respiratory effort. CARDIAC: Normal rate. Normal rhythm. No murmurs. No rubs. Extremities warm and well perfused. Pulses equal. No JVD. GI: Soft, non-distended. No tenderness to palpation. No rebound or guarding. No masses. RECTAL: Deferred. MUSCULOSKELETAL: Atraumatic. Chest examination reveals no tenderness. The back is symmetrical on inspection without obvious abnormality. Mild lumbar and thoracic tenderness to palpation. No step-offs. There is no CVA tenderness to palpation. No joint edema. LOWER EXTREMITIES: Calves are equal size bilaterally and non-tender. No edema. No discoloration. NEURO: Normal sensorium. No sensory or motor deficits noted. SKIN: No rash or jaundice noted. Lawrence Aden MD Past Med/Surg History Medical History Anxiety Asthma no inh Bilateral edema of lower extremity Bipolar disorder Chronic diastolic CHF (congestive heart failure) per record; fiance could not confirm. does not follow with backup operator CKD (chronic kidney disease) used to follow with [place] [facility]. per allen, no longer follows with Deafness Depression GERD (gastroesophageal reflux disease) Hyperlipemia Hyperparathyroidism Osteoarthritis Osteoporosis Poor historian allen provided PMH Schizoaffective disorder Spondylolisthesis Type II diabetes mellitus NIDDM Surgical History History of cataract surgery History of tooth extraction History of tubal ligation Status post breast lumpectomy Family History Father Myocardial infarction Brother Rheumatoid arthritis Other Cancer Diabetes Heart disease Hypertension Lung disease Denies family history of Colon cancer Ovarian cancer Prostate cancer Breast cancer Social History Smoking Status: Former smoker Tobacco Type: Cigarettes Second Hand Exposure: No; Hx Alcohol Use: No Hx Substance Use: No Preferred Language: Mosotho Communication Ability: deaf Visual Impairment: Partially Limited Hearing Ability: Epic Cupid Specialists Required: No Beliefs That Will Affect Care: None marital status: Single Current Living Situation: Significant Other current occupational status: disabled Feels Safe at Home: Yes Childhood Exposure to Second-Hand Smoke: No Dental Care, Regularly: No Physical Activity Frequency: 5-6 Times per Week Seatbelt Use: always Sunscreen Use: No Assistive Devices: Glasses, Hearing Aid - Bilateral and Walker Allergies Allergies Allergy/AdvReac Type Severity Reaction Status Date / Time latex Allergy Severe UNKNOWN Verified 08/09/21 16:01 aspirin Allergy Unknown UNKNOWN Verified 08/09/21 16:01 REACTION clozapine Allergy Unknown TOXIC Verified 08/09/21 16:01 REACTION codeine Allergy Unknown UNKNOWN Verified 08/09/21 16:01 REACTION ibuprofen Allergy Unknown UNKNOWN Verified 08/09/21 16:01 REACTION lurasidone Allergy Unknown TOXIC Verified 08/09/21 16:01 REACTION Penicillins Allergy Unknown UNKNOWN Verified 08/09/21 16:01 REACTION Sulfa (Sulfonamide Allergy Unknown UNKNOWN Verified 08/09/21 16:01 Antibiotics) REACTION Home Meds Home Medications Medication Instructions Recorded Confirmed multivitamin (Multiple Vitamins) 1 tab PO QAM #0 11/17/17 08/09/21 lamotrigine 100 mg tablet 100 mg PO BID #0 12/30/17 08/09/21 (Lamictal) lamotrigine 25 mg tablet (Lamictal) 25 mg PO BID #0 08/31/18 04/10/22 olanzapine 10 mg tablet (Zyprexa) 10 mg PO HS #0 12/30/17 08/09/21 acetaminophen 500 mg tablet 1,000 mg PO BID 08/26/20 08/09/21 (Tylenol Extra Strength) cholecalciferol (vitamin D3) 25 25 mcg PO QAM 08/26/20 08/09/21 mcg (1,000 unit) tablet (Vitamin D3) lithium carbonate 300 mg 300 mg PO QPM 08/02/21 08/09/21 tablet,extended release lorazepam 2 mg tablet 2 mg PO HS 08/02/21 08/09/21 olanzapine 20 mg tablet 20 mg PO HS 08/02/21 08/09/21 sitagliptin 25 mg tablet (Januvia) 25 mg PO QAM 08/07/21 08/09/21 cariprazine 1.5 mg capsule 1.5 mg PO QAM 08/09/21 08/09/21 (Vraylar) lorazepam 0.5 mg tablet 0.5 mg PO HS 08/09/21 08/09/21 Previous Rx's Medication Instructions Recorded prazosin 1 mg capsule 2 mg PO HS #60 cap 05/08/18 blood sugar diagnostic (OneTouch #100 ea 08/25/20 Ultra Blue Test Strip) blood-glucose meter (OneTouch #1 ea 08/25/20 Ultra2 Meter) atorvastatin 10 mg tablet 10 mg PO HS #90 tab 03/09/21 blood sugar diagnostic #400 ea 03/09/21 blood-glucose meter (OneTouch #1 ea 03/09/21 Ultra2 Meter) losartan 25 mg tablet 25 mg PO QAM #90 tab 03/09/21 montelukast 10 mg tablet 10 mg PO QAM #90 tab 03/09/21 omeprazole 20 mg capsule,delayed 20 mg PO QAM #90 cap 03/09/21 release lancets 30 gauge (OneTouch Delica #100 ea 03/18/21 Plus Lancet) ferrous gluconate 324 mg (37.5 mg 324 mg PO QAM #30 tab 06/08/21 iron) tablet amlodipine 10 mg tablet 10 mg PO QAM #90 tab 06/29/21 diaper,brief,adult,disposable #120 ea 08/07/21 (Select Briefs) Results & Data (ED) Vital Signs Vital Signs - 24 hr 08/09/21 14:36 08/09/21 15:46 Temperature 37.0 C Temperature Source Oral Pulse Rate 104 H Respiratory Rate 20 Blood Pressure 162/76 H Blood Pressure Mean 104 Pulse Oximetry 98 96 Oxygen Delivery Method Room Air Room Air Sepsis Recent Fever Within 48 Hours No Sepsis New/Unexplained Change in Mental Status N/A Sepsis Action Taken by Nursing No Action Required Laboratory Data Result diagrams: 08/09/21 15:20 08/09/21 15:20 Lab Results 08/09/21 08/09/21 08/09/21 Range/Units 15:20 15:20 15:20 WBC 5.32 (4.8-10.8) K/uL RBC 3.09 L (4.2-5.4) M/uL Hgb 9.6 L (12.0-16.0) g/dL Hct 30.3 L (37-47) % MCV 98.1 (80-100) fL MCH 31.1 (25-34) pg MCHC 31.7 L (32-36) g/dL RDW Std Deviation 53.7 H (36.4-46.3) fL RDW Coeff of Rachel 15.0 H (11.5-14.5) % Plt Count 320 (130-400) K/uL MPV 8.9 (7.4-10.4) fL Immature Gran % (Auto) 0.4 % Neut % (Auto) 76.3 % Lymph % (Auto) 13.3 % [place] % (Auto) 9.8 % Eos % (Auto) 0.2 % Baso % (Auto) 0.0 % Neut # (Auto) 4.06 (1.4-6.5) K/uL Lymph # (Auto) 0.71 L (1.2-3.4) K/uL [place] # (Auto) 0.52 (0.11-0.59) K/uL Eos # (Auto) 0.01 (0-0.5) K/uL Baso # (Auto) 0.00 (0-0.2) K/uL Immature Gran # (Auto) 0.02 (0.00-0.02) K/uL Sodium 141 (136-145) mmol/L Potassium 3.7 (3.5-5.1) mmol/L Chloride 108 H (98-107) mmol/L Carbon Dioxide 26 (21-32) mmol/L Anion Gap 7 (3-11) BUN 16 (6-23) mg/dl Creatinine 1.59 H (0.6-1.2) mg/dl Est Cr Clr Drug Dosing 24.0 ml/min Est GFR ( Amer) 38.0 ml/min Est GFR (Non-Af Amer) 32.8 ml/min BUN/Creatinine Ratio 10.1 (10-20) Glucose 88 (70-99(Fasting)) mg/dl Calcium 9.3 (8.5-10.1) mg/dl Magnesium 2.2 (1.7-2.4) mg/dl Total Bilirubin 0.3 (0.2-1.0) mg/dl AST 18 (13-39) U/L ALT 30 (7-52) U/L Alkaline Phosphatase 67 (34-104) U/L Troponin I < 0.03 (0-0.04) ng/ml Total Protein 6.7 (6.0-8.3) gm/dl Albumin 4.0 (3.4-5.0) gm/dl Globulin 2.7 (2.5-4.0) gm/dl Albumin/Globulin Ratio 1.5 (0.9-2) Vitamin B12 (180-914) pg/ml Folate (>5.38) ng/ml TSH 0.769 (0.300-4.500) uIu/ml Urine Color Urine Appearance (Clear) Urine pH (4.5-7.5) Ur Specific [place] (1.000-1.030) Urine Protein (Negative) Urine Glucose (UA) (Negative) Urine Ketones (Negative) Urine Blood (Negative) Urine Nitrite (Negative) Urine Bilirubin (Negative) Urine Urobilinogen (Negative) Ur Leukocyte Esterase (Negative) Urine WBC (Auto) (0-5) /hpf Urine RBC (Auto) (0-4) /hpf U Hyaline Cast (Auto) (0-5) /lpf U Epithel Cells (Auto) (0-5) /lpf Urine Bacteria (Auto) (Negative) SARS-CoV-2, RNA, NAAT (NEGATIVE) 08/09/21 08/09/21 08/09/21 Range/Units 15:20 17:27 Unknown WBC (4.8-10.8) K/uL RBC (4.2-5.4) M/uL Hgb (12.0-16.0) g/dL Hct (37-47) % MCV (80-100) fL MCH (25-34) pg MCHC (32-36) g/dL RDW Std Deviation (36.4-46.3) fL RDW Coeff of Rachel (11.5-14.5) % Plt Count (130-400) K/uL MPV (7.4-10.4) fL Immature Gran % (Auto) % Neut % (Auto) % Lymph % (Auto) % [place] % (Auto) % Eos % (Auto) % Baso % (Auto) % Neut # (Auto) (1.4-6.5) K/uL Lymph # (Auto) (1.2-3.4) K/uL [place] # (Auto) (0.11-0.59) K/uL Eos # (Auto) (0-0.5) K/uL Baso # (Auto) (0-0.2) K/uL Immature Gran # (Auto) (0.00-0.02) K/uL Sodium (136-145) mmol/L Potassium (3.5-5.1) mmol/L Chloride (98-107) mmol/L Carbon Dioxide (21-32) mmol/L Anion Gap (3-11) BUN (6-23) mg/dl Creatinine (0.6-1.2) mg/dl Est Cr Clr Drug Dosing ml/min Est GFR ( Amer) ml/min Est GFR (Non-Af Amer) ml/min BUN/Creatinine Ratio (10-20) Glucose (70-99(Fasting)) mg/dl Calcium (8.5-10.1) mg/dl Magnesium (1.7-2.4) mg/dl Total Bilirubin (0.2-1.0) mg/dl AST (13-39) U/L ALT (7-52) U/L Alkaline Phosphatase (34-104) U/L Troponin I (0-0.04) ng/ml Total Protein (6.0-8.3) gm/dl Albumin (3.4-5.0) gm/dl Globulin (2.5-4.0) gm/dl Albumin/Globulin Ratio (0.9-2) Vitamin B12 266 (180-914) pg/ml Folate > 22.30 (>5.38) ng/ml TSH (0.300-4.500) uIu/ml Urine Color Yellow Urine Appearance Clear (Clear) Urine pH 6.5 (4.5-7.5) Ur Specific [place] 1.005 (1.000-1.030) Urine Protein 1+ H (Negative) Urine Glucose (UA) Negative (Negative) Urine Ketones Negative (Negative) Urine Blood Negative (Negative) Urine Nitrite Negative (Negative) Urine Bilirubin Negative (Negative) Urine Urobilinogen Negative (Negative) Ur Leukocyte Esterase Trace H (Negative) Urine WBC (Auto) 1-5 (0-5) /hpf Urine RBC (Auto) 0-4 (0-4) /hpf U Hyaline Cast (Auto) 0 (0-5) /lpf U Epithel Cells (Auto) 5-10 H (0-5) /lpf Urine Bacteria (Auto) Negative (Negative) SARS-CoV-2, RNA, NAAT NEGATIVE (NEGATIVE) Administered Medications Discontinued Medications Acetaminophen (Acetaminophen 500 Mg Tab) 1,000 mg PO NOW STA Stop: 08/09/21 17:19 Last Admin: 08/09/21 17:28 Dose: 1,000 mg Documented by: [id number] Imaging Data Radiologist's Impression: Chest X-Ray 08/09/21 14:45 SINGLE VIEW CHEST CLINICAL HISTORY: Generalized weakness. FINDINGS: An AP portable chest radiograph is compared to study dated 08/07/2021. Correlation is made with chest CT dated 04/10/2018. The examination is degraded by portable technique and patient rotation. The heart is enlarged noting atherosclerotic calcification of the thoracic aorta. The pulmonary vasculature is noncongested. Chronic interstitial thickening is similar to previous. Mild atelectasis is noted at the lung bases. The lungs and pleural spaces are otherwise clear. No pneumothorax is seen. The skeletal structures are osteopenic. There are healed bilateral rib fractures. IMPRESSION: Cardiomegaly with no active disease in the chest. ACT 112: Negative or not required by law. Electronically signed by: Matias Jasmine M.D. 08/09/2021 5:01 PM Lumbar Spine X-Ray 08/09/21 15:26 LUMBAR SPINE 5 VIEWS CLINICAL HISTORY: Fall. Low back pain. FINDINGS: 5 views of the lumbar spine are compared to study dated 05/03/2018. Correlation is made with abdominal CT dated 12/20/2019. The skeletal structures are osteopenic. There is no radiographic evidence of acute fracture or malalignment involving the lumbar spine. Vertebral body height is maintained throughout the lumbar spine. There are bilateral pars defects at L5 with 9 mm anterolisthesis at L5-S1. There is minimal anterolisthesis at L4-L5. Alignment is otherwise preserved. There is mild hyperlordosis. Anterior and lateral marginal osteophytes are seen throughout. Facet arthropathy is noted in the mid to lower lumbar region. There is moderate disc space narrowing at L5-S1. Only mild disc space narrowing is seen at the remaining lumbar levels. The visualized sacrum and bony pelvis appear intact. Sclerotic change is noted in the sacroiliac joints. No bowel obstruction is identified. There is advanced athero sclerotic calcification of the abdominal aorta. There are healed bilateral rib fractures. IMPRESSION: 1. There is no radiographic evidence of acute fracture or malalignment involving the lumbar spine. 2. Osteopenia with bilateral pars defects at L5 and spondylotic change as above. Electronically signed by: Matias Jasmine M.D. 08/09/2021 5:04 PM Thoracic Spine X-Ray 08/09/21 15:26 THORACIC SPINE 3 VIEWS CLINICAL HISTORY: Fall. Thoracic back pain. FINDINGS: AP, lateral, and swimmer's views of the thoracic spine are compared to study dated 07/25/2013. The skeletal structures are osteopenic. There is no radiographic evidence of acute fracture or malalignment involving the thoracic spine. Vertebral body height and alignment are maintained. Anterior osteophytes are seen throughout. The transverse processes and pedicles are grossly intact as seen on the frontal view. Multilevel degenerative disc space narrowing is noted. The visualized lung parenchyma appears clear. IMPRESSION: There is no radiographic evidence of acute fracture or malalignment involving the thoracic spine. Electronically signed by: Matias Jasmine M.D. 08/09/2021 5:00 PM Discharge Plan Visit Data Chief Complaint: Fall ED Provider: Lawrence Aden Discharge Problem: Generalized weakness, Multiple falls, Back pain Forms Stand Alone Forms: [facility] [employer] Prescriptions Prescriptions: No Action multivitamin [Multiple Vitamins] Tablet 1 tab PO QAM Qty: 0 RF: 0 olanzapine [Zyprexa] 10 mg Tablet 10 mg PO HS Qty: 0 RF: 0 lamotrigine [Lamictal] 25 mg Tablet 25 mg PO BID Qty: 0 RF: 0 lamotrigine [Lamictal] 100 mg Tablet 100 mg PO BID Qty: 0 RF: 0 (DME) blood-glucose meter [OneTouch Ultra2 Meter] Misc See Rx Instructions .MEDSUPPLY Qty: 1 RF: 0 (DME) OneTouch Ultra Blue Test Strip Strip See Rx Instructions .MEDSUPPLY Qty: 100 RF: 1 (DME) lancets [OneTouch Delica Plus Lancet] 30 gauge misc See Rx Instructions .MEDSUPPLY Qty: 100 RF: 5 ferrous gluconate 324 mg (37.5 mg iron) tablet 324 mg PO QAM Qty: 30 RF: 5 amlodipine 10 mg tablet 10 mg PO QAM Qty: 90 RF: 1 (DME) Select Briefs Misc See Rx Instructions .Route Qty: 120 RF: 5 atorvastatin 10 mg tablet 10 mg PO HS Qty: 90 RF: 1 losartan 25 mg tablet 25 mg PO QAM Qty: 90 RF: 1 montelukast 10 mg tablet 10 mg PO QAM Qty: 90 RF: 3 omeprazole 20 mg capsule,delayed release(DR/EC) 20 mg PO QAM Qty: 90 RF: 1 (DME) OneTouch Ultra Blue Test Strip Strip See Rx Instructions .ROUTE .MEDSUPPLY Qty: 400 RF: 1 (DME) blood-glucose meter [OneTouch Ultra2 Meter] Misc See Rx Instructions .ROUTE .MEDSUPPLY Qty: 1 RF: 0 prazosin 1 mg Capsule 2 mg PO HS Qty: 60 RF: 0 acetaminophen [Tylenol Extra Strength] 500 mg Tablet 1,000 mg PO BID RF: 0 cholecalciferol (vitamin D3) [Vitamin D3] 25 mcg (1,000 unit) Tablet 25 mcg PO QAM RF: 0 Januvia 25 mg tablet 25 mg PO QAM RF: 0 lorazepam 2 mg tablet 2 mg PO HS RF: 0 lithium carbonate 300 mg tablet extended release 300 mg PO QPM RF: 0 olanzapine 20 mg tablet 20 mg PO HS RF: 0 Vraylar 1.5 mg capsule 1.5 mg PO QAM RF: 0 lorazepam 0.5 mg tablet 0.5 mg PO HS RF: 0 Referrals Referrals: Santos Galeano III, CRNP [Primary Care Provider] -
[2021-08-09] MEDS ORDERED: ACETAMINOPHEN 500 MG TAB PO STA (17:18)
[2021-08-09 19:07] LABS: Folate (Folic Acid) > 22.30 ng/ml (>5.38)
[2021-08-09 19:08] LABS: Vitamin B12 266 pg/ml (180-914)
[2021-08-09] MEDS ORDERED: CARBOHYDRATES FOR HYPOGLYCEMIA PO PRN (20:17)
[2021-08-09] MEDS ORDERED: ACETAMINOPHEN 325 MG TAB PO PRN (20:17)
[2021-08-09] MEDS ORDERED: DEXTROSE 50% 50 ML SYRINGE IV PRN (20:17)
[2021-08-09] MEDS ORDERED: GLUCOSE 40% GEL 15 GM TUBE PO PRN (20:17)
[2021-08-09] MEDS ORDERED: GLUCOSE 10 TABS/TUBE PO PRN (20:17)
[2021-08-09] MEDS ORDERED: GLUCAGON FOR INJ 1 MG VIAL SQ PRN (20:17)
[2021-08-09] MEDS ORDERED: lamoTRIgine 25 MG TAB PO SCH (21:00)
--- NOTE | 2021-08-09 21:32 | History & Physical Report ---
Date of Service August 09, 2021 Assessment & Plan (1) Falls frequently: Plan: Longstanding problem as per review of chart With no acute injuries here but with some pain in the right ankle and lower back with contusion Lower back does have a chronic pars defect No doubt that polypharmacy with multiple FINANCIAL RISK MANAGER depressing agents plays a role in her frequent falls. Most recently, her lorazepam dose was increased but she is reticent to have the dose decreased Perhaps her anemia is playing some role Could have neuropathy given some sensory deficits on examination CT head negative x2 in the last week TSH normal ECG with anterior T wave inversions-troponin negative Orthostasis is a possibility given high doses of atypical antipsychotics and also on prazosin No evidence of infection-no documented fevers, chest x-ray negative, UA without evidence of infection -Bring into medical/surgical unit -PT/OT consultations and evaluate for rehab placement -Check lithium level, B12, iron studies for anemia -Check echocardiogram -Tylenol as needed for pain control-would avoid opioids -Check orthostatics every shift (2) Anemia: Plan: Hemoglobin low at 9.6 Takes daily iron tablets Check B12, folate, iron studies and replace as needed Follow CBC (3) Asthma: Plan: With history of 3 packs a day of smoking but quit smoking 13 years ago With COPD No acute issues, oxygen levels here are normal Continue home Singulair She is requesting a nebulizer machine for at home (4) Back pain: Plan: Acute on chronic secondary to fall No acute fractures Does have pars defect on imaging Pain control Tylenol only (5) Benign essential hypertension: Plan: Blood pressure is mildly elevated here Continue home amlodipine 10 mg daily, losartan 25 mg daily Is also on prazosin at nighttime presumably for psychiatric benefits (6) Bipolar I disorder, single manic episode: Plan: Continue home lithium, Lamictal, lorazepam, olanzapine, Vraylar Follows with Dr. Hahn of psychiatry as an outpatient Has had numerous inpatient stays over the years for psychiatric reasons (7) Chronic diastolic CHF (congestive heart failure): Plan: No acute issues Blood pressure control (8) COPD, mild: Plan: As above, no acute issues (9) Deafness: Plan: Uses white board to communicate (10) Diabetes mellitus type 2, controlled: Plan: May be resolved Hemoglobin A1c was 5.8% in 01/2021 Insulin here as needed (11) Gastroesophageal reflux disease: Plan: No acute issues Continue PPI (12) Schizoaffective disorder: Plan: Medications as above (13) Stage III chronic kidney disease: Plan: Creatinine stable here at 1.5 -Avoid nephrotoxins -renally dose meds when appropriate -follow BMP Continue losartan (14) Ankle pain, right: Plan: Tylenol as above Ankle x-ray negative (15) Dysuria: Plan: UA here without evidence of infection Urine culture from 08/07 growing alpha Streptococcus 20,000 CFU's from a straight cath sample and this was not treated as far as I can tell-may be contaminant No fevers and urine here is negative Would not treat with antibiotics at this time Plan: DVT prophylaxis DEEPAs, ALONZO macias PT/OT consultations to evaluate for rehab placement given numerous falls Disposition-admit to medical/surgical unit Has a caser up through [employer] History of Present Illness Chief Complaint: Multiple falls Primary Care Provider: Santos Galeano, CHRISTIANNE, RENETTA This patient is a 71-year-old female with a history of schizoaffective disorder, bipolar disorder, frequent falls, asthma/COPD, GERD, hyperlipidemia, CKD stage III, HTN, DM 2, lower back pain, chronic diastolic CHF, anemia, and deafness who presents to the ER with complaint of multiple falls, approximately 6 in the last week or so. She has been to our ER alone 3 times in the last week for falls. The most recent fall occurred prior to arrival and she reports she tripped and her leg went out from under her. She denies loss of balance or passing out, no head injury. She complains of pain in her lower back and right ankle. She has had numerous imaging studies in the last week to include chest x-rays x3, CT head x2, pelvis x-ray, femur x-ray, right ankle x-ray, CT cervical spine, venous Doppler lower extremities, lumbar spine x-ray, and thoracic spine x-ray. She was not found to have any acute issues on all her imaging. We communicated with writing on a white board as she is deaf. She has multiple complaints throughout her whole body, most of which seem to be chronic. She does think that her main issue is that she is low on oxygen levels and points towards the color of her skin as being pale to confirm this idea. I did note that she is anemic and she reports having to have iron transfusions in the past. She does have intermittent chest pain she thinks due to stress. She denies shortness of breath or cough. No headache or focal neuro symptoms. She does have low back pain and right ankle pain. No diarrhea or constipation, no abdominal pains. She does endorse dysuria. She does report that recently her lorazepam dose was increased to a standing dose of 2.5 mg at bedtime and she is allowed to take an extra 0.5 mg during the day if needed. Otherwise, her lithium dose has been slowly decreased over the last 6 months or so down to the current dose of 300 mg daily due to her renal dysfunction. Her Vraylar has also been decreased down to 1.5 mg. In the ER, as above, imaging studies negative. ECG did show some new anterior T wave inversions in lead V2, but troponin was negative. She was noted to be anemic at 9.6 which is fairly stable from previous. Her creatinine was elevated but this is stable from previous. Her vital signs were within normal limits except for some hypertension. Urinalysis does not seem consistent with infection, but urine culture from 08/07 is growing alpha Streptococcus 20,000 CFU from a straight cath sample and this was not treated. She is agreeable to rehab placement. She will be brought in for frequent falls and evaluation for rehab placement with PT/OT consults. Allergies Allergy/AdvReac Type Severity Reaction Status Date / Time latex Allergy Severe UNKNOWN Verified 08/09/21 16:01 aspirin Allergy Unknown UNKNOWN Verified 08/09/21 16:01 REACTION clozapine Allergy Unknown TOXIC Verified 08/09/21 16:01 REACTION codeine Allergy Unknown UNKNOWN Verified 08/09/21 16:01 REACTION ibuprofen Allergy Unknown UNKNOWN Verified 08/09/21 16:01 REACTION lurasidone Allergy Unknown TOXIC Verified 08/09/21 16:01 REACTION Penicillins Allergy Unknown UNKNOWN Verified 08/09/21 16:01 REACTION Sulfa (Sulfonamide Allergy Unknown UNKNOWN Verified 08/09/21 16:01 Antibiotics) REACTION Home Medications Medication Instructions Recorded Confirmed Type multivitamin (Multiple Vitamins) 1 tab PO QAM #0 11/17/17 08/09/21 History lamotrigine 100 mg tablet 100 mg PO BID #0 12/30/17 08/09/21 History (Lamictal) lamotrigine 25 mg tablet (Lamictal) 25 mg PO BID #0 12/30/17 08/09/21 History olanzapine 10 mg tablet (Zyprexa) 10 mg PO HS #0 12/30/17 08/09/21 History prazosin 1 mg capsule 2 mg PO HS #60 cap 05/08/18 08/09/21 Rx blood sugar diagnostic (OneTouch #100 ea 08/25/20 08/07/21 Rx Ultra Blue Test Strip) blood-glucose meter (OneTouch #1 ea 08/25/20 08/07/21 Rx Ultra2 Meter) acetaminophen 500 mg tablet 1,000 mg PO BID 08/26/20 08/09/21 History (Tylenol Extra Strength) cholecalciferol (vitamin D3) 25 25 mcg PO QAM 08/26/20 08/09/21 History mcg (1,000 unit) tablet (Vitamin D3) atorvastatin 10 mg tablet 10 mg PO HS #90 tab 03/09/21 08/09/21 Rx blood sugar diagnostic #400 ea 03/09/21 08/07/21 Rx blood-glucose meter (OneTouch #1 ea 03/09/21 08/07/21 Rx Ultra2 Meter) losartan 25 mg tablet 25 mg PO QAM #90 tab 03/09/21 08/09/21 Rx montelukast 10 mg tablet 10 mg PO QAM #90 tab 03/09/21 08/09/21 Rx omeprazole 20 mg capsule,delayed 20 mg PO QAM #90 cap 03/09/21 08/09/21 Rx release lancets 30 gauge (OneTouch Delica #100 ea 03/18/21 08/07/21 Rx Plus Lancet) ferrous gluconate 324 mg (37.5 mg 324 mg PO QAM #30 tab 06/08/21 08/09/21 Rx iron) tablet amlodipine 10 mg tablet 10 mg PO QAM #90 tab 06/29/21 08/09/21 Rx lithium carbonate 300 mg 300 mg PO QPM 08/02/21 08/09/21 History tablet,extended release lorazepam 2 mg tablet 2 mg PO HS 08/02/21 08/09/21 History olanzapine 20 mg tablet 20 mg PO HS 08/02/21 08/09/21 History diaper,brief,adult,disposable #120 ea 08/07/21 08/07/21 Rx (Select Briefs) sitagliptin 25 mg tablet (Januvia) 25 mg PO QAM 08/07/21 08/09/21 History cariprazine 1.5 mg capsule 1.5 mg PO QAM 08/09/21 08/09/21 History (Vraylar) lorazepam 0.5 mg tablet 0.5 mg PO HS 08/09/21 08/09/21 History Past Med/Surg History Medical History (Updated 08/09/21 @ 21:43 by Lissette Perez MD) Anxiety Asthma no inh Bilateral edema of lower extremity Bipolar disorder Chronic diastolic CHF (congestive heart failure) per record; fiance could not confirm. does not follow with bottom buffer CKD (chronic kidney disease) used to follow with [facility]. per fiance, no longer follows with Deafness Depression GERD (gastroesophageal reflux disease) Hyperlipemia Hyperparathyroidism Osteoarthritis Osteoporosis Poor historian fiance provided PMH Schizoaffective disorder Spondylolisthesis Type II diabetes mellitus NIDDM Surgical History History of cataract surgery History of tooth extraction History of tubal ligation Status post breast lumpectomy Family History Father Myocardial infarction Brother Rheumatoid arthritis Other Cancer Diabetes Heart disease Hypertension Lung disease Denies family history of Colon cancer Ovarian cancer Prostate cancer Breast cancer Social History Smoking Status: Former smoker Tobacco Type: Cigarettes Second Hand Exposure: No; Do You Dip or Chew Tobacco: No; Tobacco Cessation Education Requested by Patient: No Hx Alcohol Use: No Hx Substance Use: No Preferred Language: Maltese Communication Ability: Impaired Communication Ability Comment: pt APACHE and uses white board to communicate Visual Impairment: Partially Limited 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 Storage Required: No Beliefs That Will Affect Care: None marital status: Single Current Living Situation: Spouse current occupational status: disabled Other Information That Helps Us Care for You: No Feels Safe at Home: Yes Safety Concerns: Feels Safe At This Time Childhood Exposure to Second-Hand Smoke: No Dental Care, Regularly: No Physical Activity Frequency: 5-6 Times per Week Seatbelt Use: always Sunscreen Use: No Assistive Devices: Glasses Review of Systems Review of Systems: All systems reviewed & are unremarkable except as noted in HPI & below Reports having "low-grade fevers" at home Gets occasional headaches Intermittent chest pain, chronic cough, no shortness of breath No abdominal pains or constipation, no diarrhea Has chronic lower back pain, ankle pain No rashes Has strong odor to urine and dysuria Physical Exam Constitutional: WD/WN, vitals as above Eyes: PERRL, conjunctivae normal, anicteric sclerae ENMT: external ear and nose normal, oropharynx normal Ears: + hearing impairment Neck: trachea midline, no thyromegaly Respiratory: normal respiratory effort, lungs clear to auscultation Cardiovascular: Rate/Rhythm: regular rate and regular rhythm Heart Sounds: no murmur Extremities: + edema (Trace edema the ankles bilaterally) Chest (Breasts): Chest: normal inspection of chest Gastrointestinal (Abdomen): normal bowel sounds, soft, nontender, no hepatosplenomegaly Musculoskeletal: Extremities: extremities normal to inspection; no cyanosis and no clubbing Skin: no rashes, warm and dry Neurologic: moves all extremities and awake; no focal motor deficits Speech / Cognition: normal speech Motor/Sensory: + sensory deficit (Feels somewhat decreased sensation to light touch in the bilateral legs) Psychiatric: A+Ox3, euthymic affect Lymphatic: no lymphedema Results & Data Results & Data ([facility]) Vital Signs (Past 12 Hours) Vital Signs Temp Pulse Resp BP Pulse Ox 08/09/21 15:46 96 08/09/21 14:36 37.0 C 104 H 20 162/76 H 98 Laboratory Results 08/09/21 08/09/21 08/09/21 Range/Units Unknown 20:59 18:45 WBC (4.8-10.8) K/uL RBC (4.2-5.4) M/uL Hgb (12.0-16.0) g/dL Hct (37-47) % MCV (80-100) fL MCH (25-34) pg MCHC (32-36) g/dL RDW Std Deviation (36.4-46.3) fL RDW Coeff of Rachel (11.5-14.5) % Plt Count (130-400) K/uL MPV (7.4-10.4) fL Immature Gran % (Auto) % Neut % (Auto) % Lymph % (Auto) % [place] % (Auto) % Eos % (Auto) % Baso % (Auto) % Neut # (Auto) (1.4-6.5) K/uL Lymph # (Auto) (1.2-3.4) K/uL [place] # (Auto) (0.11-0.59) K/uL Eos # (Auto) (0-0.5) K/uL Baso # (Auto) (0-0.2) K/uL Immature Gran # (Auto) (0.00-0.02) K/uL Sodium (136-145) mmol/L Potassium (3.5-5.1) mmol/L Chloride (98-107) mmol/L Carbon Dioxide (21-32) mmol/L Anion Gap (3-11) BUN (6-23) mg/dl Creatinine (0.6-1.2) mg/dl Est Cr Clr Drug Dosing ml/min Est GFR ( Amer) ml/min Est GFR (Non-Af Amer) ml/min BUN/Creatinine Ratio (10-20) Glucose (70-99(Fasting)) mg/dl POC Glucose 99 (70-99) mg/dl Calcium (8.5-10.1) mg/dl Magnesium (1.7-2.4) mg/dl Total Bilirubin (0.2-1.0) mg/dl AST (13-39) U/L ALT (7-52) U/L Alkaline Phosphatase (34-104) U/L Troponin I (0-0.04) ng/ml Total Protein (6.0-8.3) gm/dl Albumin (3.4-5.0) gm/dl Globulin (2.5-4.0) gm/dl Albumin/Globulin Ratio (0.9-2) Vitamin B12 (180-914) pg/ml Folate (>5.38) ng/ml TSH (0.300-4.500) uIu/ml Urine Color Yellow Urine Appearance Clear (Clear) Urine pH 6.5 (4.5-7.5) Ur Specific [place] 1.005 (1.000-1.030) Urine Protein 1+ H (Negative) Urine Glucose (UA) Negative (Negative) Urine Ketones Negative (Negative) Urine Blood Negative (Negative) Urine Nitrite Negative (Negative) Urine Bilirubin Negative (Negative) Urine Urobilinogen Negative (Negative) Ur Leukocyte Esterase Trace H (Negative) Urine WBC (Auto) 1-5 (0-5) /hpf Urine RBC (Auto) 0-4 (0-4) /hpf U Hyaline Cast (Auto) 0 (0-5) /lpf U Epithel Cells (Auto) 5-10 H (0-5) /lpf Urine Bacteria (Auto) Negative (Negative) [place] 0.4 L (0.6-1.2) mmol/L SARS-CoV-2, RNA, NAAT (NEGATIVE) 08/09/21 08/09/21 08/09/21 Range/Units 17:27 15:20 15:20 WBC (4.8-10.8) K/uL RBC (4.2-5.4) M/uL Hgb (12.0-16.0) g/dL Hct (37-47) % MCV (80-100) fL MCH (25-34) pg MCHC (32-36) g/dL RDW Std Deviation (36.4-46.3) fL RDW Coeff of Rachel (11.5-14.5) % Plt Count (130-400) K/uL MPV (7.4-10.4) fL Immature Gran % (Auto) % Neut % (Auto) % Lymph % (Auto) % [place] % (Auto) % Eos % (Auto) % Baso % (Auto) % Neut # (Auto) (1.4-6.5) K/uL Lymph # (Auto) (1.2-3.4) K/uL [place] # (Auto) (0.11-0.59) K/uL Eos # (Auto) (0-0.5) K/uL Baso # (Auto) (0-0.2) K/uL Immature Gran # (Auto) (0.00-0.02) K/uL Sodium (136-145) mmol/L Potassium (3.5-5.1) mmol/L Chloride (98-107) mmol/L Carbon Dioxide (21-32) mmol/L Anion Gap (3-11) BUN (6-23) mg/dl Creatinine (0.6-1.2) mg/dl Est Cr Clr Drug Dosing ml/min Est GFR ( Amer) ml/min Est GFR (Non-Af Amer) ml/min BUN/Creatinine Ratio (10-20) Glucose (70-99(Fasting)) mg/dl POC Glucose (70-99) mg/dl Calcium (8.5-10.1) mg/dl Magnesium (1.7-2.4) mg/dl Total Bilirubin (0.2-1.0) mg/dl AST (13-39) U/L ALT (7-52) U/L Alkaline Phosphatase (34-104) U/L Troponin I (0-0.04) ng/ml Total Protein (6.0-8.3) gm/dl Albumin (3.4-5.0) gm/dl Globulin (2.5-4.0) gm/dl Albumin/Globulin Ratio (0.9-2) Vitamin B12 266 (180-914) pg/ml Folate > 22.30 (>5.38) ng/ml TSH 0.769 (0.300-4.500) uIu/ml Urine Color Urine Appearance (Clear) Urine pH (4.5-7.5) Ur Specific [place] (1.000-1.030) Urine Protein (Negative) Urine Glucose (UA) (Negative) Urine Ketones (Negative) Urine Blood (Negative) Urine Nitrite (Negative) Urine Bilirubin (Negative) Urine Urobilinogen (Negative) Ur Leukocyte Esterase (Negative) Urine WBC (Auto) (0-5) /hpf Urine RBC (Auto) (0-4) /hpf U Hyaline Cast (Auto) (0-5) /lpf U Epithel Cells (Auto) (0-5) /lpf Urine Bacteria (Auto) (Negative) [place] (0.6-1.2) mmol/L SARS-CoV-2, RNA, NAAT NEGATIVE (NEGATIVE) 08/09/21 08/09/21 Range/Units 15:20 15:20 WBC 5.32 (4.8-10.8) K/uL RBC 3.09 L (4.2-5.4) M/uL Hgb 9.6 L (12.0-16.0) g/dL Hct 30.3 L (37-47) % MCV 98.1 (80-100) fL MCH 31.1 (25-34) pg MCHC 31.7 L (32-36) g/dL RDW Std Deviation 53.7 H (36.4-46.3) fL RDW Coeff of Rachel 15.0 H (11.5-14.5) % Plt Count 320 (130-400) K/uL MPV 8.9 (7.4-10.4) fL Immature Gran % (Auto) 0.4 % Neut % (Auto) 76.3 % Lymph % (Auto) 13.3 % [place] % (Auto) 9.8 % Eos % (Auto) 0.2 % Baso % (Auto) 0.0 % Neut # (Auto) 4.06 (1.4-6.5) K/uL Lymph # (Auto) 0.71 L (1.2-3.4) K/uL [place] # (Auto) 0.52 (0.11-0.59) K/uL Eos # (Auto) 0.01 (0-0.5) K/uL Baso # (Auto) 0.00 (0-0.2) K/uL Immature Gran # (Auto) 0.02 (0.00-0.02) K/uL Sodium 141 (136-145) mmol/L Potassium 3.7 (3.5-5.1) mmol/L Chloride 108 H (98-107) mmol/L Carbon Dioxide 26 (21-32) mmol/L Anion Gap 7 (3-11) BUN 16 (6-23) mg/dl Creatinine 1.59 H (0.6-1.2) mg/dl Est Cr Clr Drug Dosing 24.0 ml/min Est GFR ( Amer) 38.0 ml/min Est GFR (Non-Af Amer) 32.8 ml/min BUN/Creatinine Ratio 10.1 (10-20) Glucose 88 (70-99(Fasting)) mg/dl POC Glucose (70-99) mg/dl Calcium 9.3 (8.5-10.1) mg/dl Magnesium 2.2 (1.7-2.4) mg/dl Total Bilirubin 0.3 (0.2-1.0) mg/dl AST 18 (13-39) U/L ALT 30 (7-52) U/L Alkaline Phosphatase 67 (34-104) U/L Troponin I < 0.03 (0-0.04) ng/ml Total Protein 6.7 (6.0-8.3) gm/dl Albumin 4.0 (3.4-5.0) gm/dl Globulin 2.7 (2.5-4.0) gm/dl Albumin/Globulin Ratio 1.5 (0.9-2) Vitamin B12 (180-914) pg/ml Folate (>5.38) ng/ml TSH (0.300-4.500) uIu/ml Urine Color Urine Appearance (Clear) Urine pH (4.5-7.5) Ur Specific [place] (1.000-1.030) Urine Protein (Negative) Urine Glucose (UA) (Negative) Urine Ketones (Negative) Urine Blood (Negative) Urine Nitrite (Negative) Urine Bilirubin (Negative) Urine Urobilinogen (Negative) Ur Leukocyte Esterase (Negative) Urine WBC (Auto) (0-5) /hpf Urine RBC (Auto) (0-4) /hpf U Hyaline Cast (Auto) (0-5) /lpf U Epithel Cells (Auto) (0-5) /lpf Urine Bacteria (Auto) (Negative) [place] (0.6-1.2) mmol/L SARS-CoV-2, RNA, NAAT (NEGATIVE) Diagnostic Findings Chest X-Ray 08/09/21 14:45 SINGLE VIEW CHEST CLINICAL HISTORY: Generalized weakness. FINDINGS: An AP portable chest radiograph is compared to study dated 08/07/2021. Correlation is made with chest CT dated 04/10/2018. The examination is degraded by portable technique and patient rotation. The heart is enlarged noting atherosclerotic calcification of the thoracic aorta. The pulmonary vasculature is noncongested. Chronic interstitial thickening is similar to previous. Mild atelectasis is noted at the lung bases. The lungs and pleural spaces are otherwise clear. No pneumothorax is seen. The skeletal structures are osteopenic. There are healed bilateral rib fractures. IMPRESSION: Cardiomegaly with no active disease in the chest. ACT 112: Negative or not required by law. Electronically signed by: Matias Jasmine M.D. 08/09/2021 5:01 PM Lumbar Spine X-Ray 08/09/21 15:26 LUMBAR SPINE 5 VIEWS CLINICAL HISTORY: Fall. Low back pain. FINDINGS: 5 views of the lumbar spine are compared to study dated 05/03/2018. Correlation is made with abdominal CT dated 12/20/2019. The skeletal structures are osteopenic. There is no radiographic evidence of acute fracture or malalignment involving the lumbar spine. Vertebral body height is maintained throughout the lumbar spine. There are bilateral pars defects at L5 with 9 mm anterolisthesis at L5-S1. There is minimal anterolisthesis at L4-L5. Alignment is otherwise preserved. There is mild hyperlordosis. Anterior and lateral marginal osteophytes are seen throughout. Facet arthropathy is noted in the mid to lower lumbar region. There is moderate disc space narrowing at L5-S1. Only mild disc space narrowing is seen at the remaining lumbar levels. The visualized sacrum and bony pelvis appear intact. Sclerotic change is noted in the sacroiliac joints. No bowel obstruction is identified. There is advanced atherosclerotic calcification of the abdominal aorta. There are healed bilateral rib fractures. IMPRESSION: 1. There is no radiographic evidence of acute fracture or malalignment involving the lumbar spine. 2. Osteopenia with bilateral pars defects at L5 and spondylotic change as above. Electronically signed by: Matias Jasmine M.D. 08/09/2021 5:04 PM Thoracic Spine X-Ray 08/09/21 15:26 THORACIC SPINE 3 VIEWS CLINICAL HISTORY: Fall. Thoracic back pain. FINDINGS: AP, lateral, and swimmer's views of the thoracic spine are compared to study dated 07/25/2013. The skeletal structures are osteopenic. There is no radiographic evidence of acute fracture or malalignment involving the thoracic spine. Vertebral body height and alignment are maintained. Anterior osteophytes are seen throughout. The transverse processes and pedicles are grossly intact as seen on the frontal view. Multilevel degenerative disc space narrowing is noted. The visualized lung parenchyma appears clear. IMPRESSION: There is no radiographic evidence of acute fracture or malalignment involving the thoracic spine. Electronically signed by: Matias Jasmine M.D. 08/09/2021 5:00 PM ECG Additional Comments: ECG on 08/09/2021 at 1517 with normal sinus rhythm, T wave inversion in anterior leads change from previous Code Status & VTE Plan Code Status Full code VTE Prophylaxis Plan VTE Prophylaxis will be ordered: Yes PG Care Time/CCT Total # of Minutes Spent Total Time Spent with Patient: Total time spent is greater than 50% in coordination of care (as documented) at patient's floor/unit and/or counseling patient: Coding Level of Care Code 09927 Initial Inpt Care Lvl 3 Diagnoses Anemia D64.9 Asthma J45.909 Back pain M54.9 Benign essential hypertension I10 Bipolar I disorder, single manic episode F30.9 Chronic diastolic CHF (congestive heart failure) I50.32 COPD, mild J44.9 Deafness H91.90 Diabetes mellitus type 2, controlled E11.22; N18.30 Diabetes mellitus software sales executive insulin use: without software sales executive use Diabetes mellitus complication status: with kidney complications Diabetes mellitus complication detail: with chronic kidney disease Chronic kidney disease stage: stage 3 (moderate) Falls frequently R29.6 Gastroesophageal reflux disease K21.9 Esophagitis presence: without esophagitis Schizoaffective disorder F25.9 Schizoaffective disorder type: unspecified Stage III chronic kidney disease N18.32 Chronic kidney disease stage 3 subtype: stage 3b (GFR 30-44) Ankle pain, right M25.571 Dysuria R30.0 (1) Diabetes mellitus type 2, controlled Diabetes mellitus senior living insulin use: without software sales executive use Diabetes mellitus complication status: with kidney complications Diabetes mellitus complication detail: with chronic kidney disease Chronic kidney disease stage: stage 3 (moderate) Qualified Code(s): E11.22 - Type 2 diabetes mellitus with diabetic chronic kidney disease; N18.30 - Chronic kidney disease, stage 3 unspecified (2) Gastroesophageal reflux disease Esophagitis presence: without esophagitis Qualified Code(s): K21.9 - Gastro- esophageal reflux disease without esophagitis (3) Schizoaffective disorder Schizoaffective disorder type: unspecified Qualified Code(s): F25.9 - Schizoaffective disorder, unspecified (4) Stage III chronic kidney disease Chronic kidney disease stage 3 subtype: stage 3b (GFR 30-44) Qualified Code(s): N18.32 - Chronic kidney disease, stage 3b
[2021-08-09] MEDS: INSULIN ASPART PER UNIT SC SCH (22:00)
[2021-08-09] MEDS: LORazepam 1 MG TAB PO SCH (22:43)
[2021-08-09] MEDS: PRAZOSIN HCL 1 MG CAP PO SCH (22:44)
[2021-08-09] MEDS: OLANZapine 10 MG TAB PO SCH (22:44)
[2021-08-09] MEDS: lamoTRIgine 25 MG TAB PO SCH (22:47)
[2021-08-09] MEDS: lamoTRIgine 100 MG TAB PO SCH (22:47)
[2021-08-09] MEDS: LITHIUM CARBONATE SLOW REL 300 MG TAB PO SCH (22:48)
[2021-08-09] MEDS: ATORVASTATIN 10 MG TAB PO SCH (22:48)
[2021-08-10] MEDS ORDERED: MELATONIN 3 MG TAB PO PRN (02:49)
[2021-08-10] MEDS ORDERED: ALBUT/IPRATROP 3MG/0.5MG NEB 3 ML VIAL NEB STA (05:40)
[2021-08-10] MEDS ORDERED: ALBUT/IPRATROP 3MG/0.5MG NEB 3 ML VIAL ONE (05:48)
[2021-08-10] MEDS ORDERED: ALBUTEROL HFA 8 GM INHALER INH PRN (06:00)
[2021-08-10 07:51] LABS: Eosinophils # (auto) 0.01 K/uL (0-0.5); Eosinophils % (auto) 0.2 %; Hematocrit (blood only) 28.3 % (37-47); Hemoglobin 9.2 g/dL (12.0-16.0); Immature Granulocytes # (auto) 0.01 K/uL (0.00-0.02); Immature Granulocytes % (auto) 0.2 %; Lymphocytes # (auto) 0.87 K/uL (1.2-3.4); Lymphocytes % (auto) 18.3 %; Mean Corpuscular Hemoglobin 31.2 pg (25-34); Mean Corpuscular Hgb Conc 32.5 g/dL (32-36); Mean Corpuscular Volume 95.9 fL (80-100); Mean Platelet Volume 8.9 fL (7.4-10.4); Monocytes # (auto) 0.51 K/uL (0.11-0.59); Monocytes % (auto) 10.7 %; Neutrophils # (auto) 3.35 K/uL (1.4-6.5); Neutrophils % (auto) 70.6 %; Platelet Count 324 K/uL (130-400); RDW Coefficient of Variation 14.7 % (11.5-14.5); RDW Standard Deviation 52.2 fL (36.4-46.3); Red Blood Count 2.95 M/uL (4.2-5.4); White Blood Count 4.75 K/uL (4.8-10.8)
[2021-08-10] MEDS: FERROUS GLUCONATE 324 MG TAB PO SCH (08:04)
[2021-08-10] MEDS: MONTELUKAST SODIUM 10 MG TABLET PO SCH (08:04)
[2021-08-10] MEDS: PANTOprazole 40 MG TAB PO SCH (08:04)
[2021-08-10] MEDS: LOSARTAN POTASSIUM 25 MG TAB PO SCH (08:06)
[2021-08-10] MEDS: lamoTRIgine 25 MG TAB PO SCH ×2 (08:06→21:00)
[2021-08-10] MEDS: ACETAMINOPHEN 500 MG TAB PO SCH ×2 (08:06→21:00)
[2021-08-10] MEDS: amLODIPine BESYLATE 5 MG TAB PO SCH (08:07)
[2021-08-10] MEDS: lamoTRIgine 100 MG TAB PO SCH ×2 (08:08→21:00)
[2021-08-10 08:11] LABS: Iron 36 mcg/dl (35-150); Total Iron Binding Cap Calc 267 mcg/dl (250-450); Transferrin (FE) Percent Satur 13 % (15-50); Unsaturated Iron Binding Cap 231 mcg/dl (155-355)
[2021-08-10 08:32] LABS: BUN Creatinine Ratio 11.5 (10-20); Calcium 9.5 mg/dl (8.5-10.1); Creatinine Clr Calc Pharmacy 24.4 ml/min; Est GFR (African American) 38.9 ml/min; Est GFR (Non-African American) 33.6 ml/min; Magnesium 2.2 mg/dl (1.7-2.4)
[2021-08-10 08:35] LABS: Ferritin 228.8 ng/ml (8-388)
[2021-08-10] MEDS: INSULIN ASPART PER UNIT SC SCH ×4 (09:06→21:53)
[2021-08-10] MEDS: CYANOCOBALAMIN 1000 MCG/ML VIAL IM SCH (09:08)
--- NOTE | 2021-08-10 15:25 | Hospitalist Progress Note ---
Date of Service August 10, 2021 Assessment & Plan (1) Falls frequently: Plan: Etiology could be multifactorial. Orthostatics, deconditioning or effect of some assistance coordinator medications CT thoracic and Lumbar spine only show degenerative changes On exam, poor muscle tone Will recommend continued PT (2) Anemia: Plan: Hemoglobin low at 9.6 Takes daily iron tablets Check B12, folate, iron studies and replace as needed Follow CBC (3) Asthma: Plan: With history of 3 packs a day of smoking but quit smoking 13 years ago With COPD No acute issues, oxygen levels here are normal Continue home Singulair She is requesting a nebulizer machine for at home (4) Back pain: Plan: Acute on chronic secondary to fall No acute fractures Does have pars defect on imaging Pain control Tylenol only (5) Benign essential hypertension: Plan: Blood pressure is mildly elevated here Continue home amlodipine 10 mg daily, losartan 25 mg daily Is also on prazosin at nighttime presumably for psychiatric benefits (6) Bipolar I disorder, single manic episode: Plan: Continue home lithium, Lamictal, lorazepam, olanzapine, Vraylar Follows with Dr. Hahn of psychiatry as an outpatient Has had numerous inpatient stays over the years for psychiatric reasons (7) Chronic diastolic CHF (congestive heart failure): Plan: No acute issues Blood pressure control (8) COPD, mild: Plan: As above, no acute issues (9) Deafness: Plan: Uses white board to communicate (10) Diabetes mellitus type 2, controlled: Plan: May be resolved Hemoglobin A1c was 5.8% in 01/2021 Insulin here as needed (11) Gastroesophageal reflux disease: Plan: No acute issues Continue PPI (12) Schizoaffective disorder: Plan: Medications as above (13) Stage III chronic kidney disease: Plan: Creatinine stable here at 1.5 -Avoid nephrotoxins -renally dose meds when appropriate -follow BMP Continue losartan (14) Ankle pain, right: Plan: Tylenol as above Ankle x-ray negative (15) Dysuria: Plan: UA here without evidence of infection Urine culture from 08/07 growing alpha Streptococcus 20,000 CFU's from a straight cath sample and this was not treated as far as I can tell-may be contaminant No fevers and urine here is negative Would not treat with antibiotics at this time Plan: SNF placement for rehab when accepted Admission and Anticipated Discharge Date Admission Date: August 09, 2021 Subjective patient seen and examined today, feels weak Review of Systems Review of Systems: All systems reviewed are negative, apart from the ones contained in the history. Physical Exam Physical Exam: The patient is awake, alert and oriented 3, well developed and well nourished, normocephalic and atraumatic, lying in bed and in no acute distress. HEENT--PERRL, EOMI, mucous membranes and oropharynx mildly dry Neck--supple. No JVD. No bruits. Thyroid normal, trachea midline, no adenopathy. Heart--normal S1 and S2. No murmurs, rubs or gallops. Lungs--clear bilaterally, no respiratory distress, no accessory muscle use. Abdomen--normal bowel sounds and soft. Mild epigastric and left sided abdominal pain Extremities--no cyanosis or clubbing. No edema. Dermatologic--normal skin turgor, normal color, no abnormal lymph nodes, no rash. Neurologic--cranial nerves II through XII grossly intact. Rheumatologic--normal range of motion. Psychiatric--normal affect. Results & Data Results & Data ([facility]) Vital Signs (Past 12 Hours) Vital Signs Temp Pulse Resp BP Pulse Ox 08/10/21 14:41 98.2 F 16 97 08/10/21 07:38 98.2 F 92 H 16 161/73 H 93 08/10/21 07:22 85 22 93 08/10/21 05:00 77 16 97 08/10/21 04:52 70 128/70 PG Care Time/CCT Total # of Minutes Spent Total Time Spent with Patient: Total time spent is greater than 50% in coordination of care (as documented) at patient's floor/unit and/or counseling patient: Coding Level of Care Code 52466 Subseq Hosp Care Lvl 2 Diagnoses Falls frequently R29.6 Anemia D64.9 Asthma J45.909 Back pain M54.9 Benign essential hypertension I10 Bipolar I disorder, single manic episode F30.9 Chronic diastolic CHF (congestive heart failure) I50.32 COPD, mild J44.9 Deafness H91.90 Diabetes mellitus type 2, controlled E11.22; N18.30 Diabetes mellitus mcc insulin use: without mcc use Diabetes mellitus complication status: with kidney complications Diabetes mellitus complication detail: with chronic kidney disease Chronic kidney disease stage: stage 3 (moderate) Gastroesophageal reflux disease K21.9 Esophagitis presence: without esophagitis Schizoaffective disorder F25.9 Schizoaffective disorder type: unspecified Stage III chronic kidney disease N18.32 Chronic kidney disease stage 3 subtype: stage 3b (GFR 30-44) Ankle pain, right M25.571 Dysuria R30.0 Time Spent (min) 35 (1) Diabetes mellitus type 2, controlled Diabetes mellitus mcc insulin use: without termite exterminator helper use Diabetes mellitus complication status: with kidney complications Diabetes mellitus complication detail: with chronic kidney disease Chronic kidney disease stage: stage 3 (moderate) Qualified Code(s): E11.22 - Type 2 diabetes mellitus with diabetic chronic kidney disease; N18.30 - Chronic kidney disease, stage 3 unspecified (2) Gastroesophageal reflux disease Esophagitis presence: without esophagitis Qualified Code(s): K21.9 - Gastro- esophageal reflux disease without esophagitis (3) Schizoaffective disorder Schizoaffective disorder type: unspecified Qualified Code(s): F25.9 - Schizoaffective disorder, unspecified (4) Stage III chronic kidney disease Chronic kidney disease stage 3 subtype: stage 3b (GFR 30-44) Qualified Code(s): N18.32 - Chronic kidney disease, stage 3b
--- NOTE | 2021-08-10 16:56 | XCELERA ---
[id number] \\[id number]
[2021-08-10] MEDS: LITHIUM CARBONATE SLOW REL 300 MG TAB PO SCH (21:00)
[2021-08-10] MEDS: OLANZapine 10 MG TAB PO SCH (21:00)
[2021-08-10] MEDS: PRAZOSIN HCL 1 MG CAP PO SCH (21:00)
[2021-08-10] MEDS: ATORVASTATIN 10 MG TAB PO SCH (21:00)
[2021-08-10] MEDS: LORazepam 1 MG TAB PO SCH (21:01)
--- NOTE | 2021-08-11 05:53 | Electrocardiogram Report ---
Test Reason : Blood Pressure : / mmHG Vent. Rate : 085 BPM Atrial Rate : 085 BPM P-R Int : 152 ms QRS Dur : 112 ms QT Int : 394 ms P-R-T Axes : 076 057 073 degrees QTc Int : 468 ms Poor data quality, interpretation may be adversely affected Normal sinus rhythm Possible Left atrial enlargement Poor R wave progression, consider anterior OR vs. lead placement vs. LVH When compared with ECG of 07-AUG-2021 16:06, T wave inversion now evident in Anterior leads Confirmed by Luan Oleary ([id number]) on 08/11/2021 5:53:39 AM Referred By: REFERRED SELF Confirmed By:Luan Oleary
[2021-08-11 06:30] LABS: Hemoglobin 10.7 g/dL (12.0-16.0); Immature Granulocytes # (auto) 0.02 K/uL (0.00-0.02); Immature Granulocytes % (auto) 0.4 %; Lymphocytes # (auto) 0.98 K/uL (1.2-3.4); Lymphocytes % (auto) 18.2 %; Mean Corpuscular Hemoglobin 31.7 pg (25-34); Mean Corpuscular Hgb Conc 32.4 g/dL (32-36); Mean Corpuscular Volume 97.6 fL (80-100); Mean Platelet Volume 9.1 fL (7.4-10.4); Monocytes # (auto) 0.45 K/uL (0.11-0.59); Monocytes % (auto) 8.3 %; Neutrophils # (auto) 3.94 K/uL (1.4-6.5); Neutrophils % (auto) 73.1 %; Platelet Count 366 K/uL (130-400); RDW Coefficient of Variation 14.8 % (11.5-14.5); Red Blood Count 3.38 M/uL (4.2-5.4); White Blood Count 5.39 K/uL (4.8-10.8)
[2021-08-11 07:06] LABS: BUN Creatinine Ratio 11.4 (10-20); Calcium 9.5 mg/dl (8.5-10.1); Creatinine Clr Calc Pharmacy 20.7 ml/min; Est GFR (African American) 31.9 ml/min; Est GFR (Non-African American) 27.5 ml/min; Magnesium 2.3 mg/dl (1.7-2.4); Potassium 3.9 mmol/L (3.5-5.1)
[2021-08-11] MEDS: INSULIN ASPART PER UNIT SC SCH ×2 (08:57→12:34)
[2021-08-11] MEDS: LOSARTAN POTASSIUM 25 MG TAB PO SCH (08:57)
[2021-08-11] MEDS: amLODIPine BESYLATE 5 MG TAB PO SCH (08:58)
[2021-08-11] MEDS: lamoTRIgine 100 MG TAB PO SCH (08:58)
[2021-08-11] MEDS: lamoTRIgine 25 MG TAB PO SCH (08:58)
[2021-08-11] MEDS: MONTELUKAST SODIUM 10 MG TABLET PO SCH (08:58)
[2021-08-11] MEDS: PANTOprazole 40 MG TAB PO SCH (08:58)
[2021-08-11] MEDS: CYANOCOBALAMIN 1000 MCG/ML VIAL IM SCH (08:58)
[2021-08-11] MEDS: FERROUS GLUCONATE 324 MG TAB PO SCH (08:58)
[2021-08-11] MEDS: ACETAMINOPHEN 500 MG TAB PO SCH (09:00)
[2021-08-11] MEDS ORDERED: LORazepam 1 MG TAB PO STA (12:15)
--- NOTE | 2021-08-11 12:36 | Discharge Summary ---
Date of Service August 11, 2021 Admission HPI Per Admitting Provider This patient is a 71-year-old female with a history of schizoaffective disorder, bipolar disorder, frequent falls, asthma/COPD, GERD, hyperlipidemia, CKD stage III, HTN, DM 2, lower back pain, chronic diastolic CHF, anemia, and deafness who presents to the ER with complaint of multiple falls, approximately 6 in the last week or so. She has been to our ER alone 3 times in the last week for falls. The most recent fall occurred prior to arrival and she reports she tripped and her leg went out from under her. She denies loss of balance or passing out, no head injury. She complains of pain in her lower back and right ankle. She has had numerous imaging studies in the last week to include chest x-rays x3, CT head x2, pelvis x-ray, femur x-ray, right ankle x-ray, CT cervical spine, venous Doppler lower extremities, lumbar spine x-ray, and thoracic spine x-ray. She was not found to have any acute issues on all her imaging. We communicated with writing on a white board as she is deaf. She has multiple complaints throughout her whole body, most of which seem to be chronic. She does think that her main issue is that she is low on oxygen levels and points towards the color of her skin as being pale to confirm this idea. I did note that she is anemic and she reports having to have iron transfusions in the past. She does have intermittent chest pain she thinks due to stress. She denies shortness of breath or cough. No headache or focal neuro symptoms. She does have low back pain and right ankle pain. No diarrhea or constipation, no abdominal pains. She does endorse dysuria. She does report that recently her lorazepam dose was increased to a standing dose of 2.5 mg at bedtime and she is allowed to take an extra 0.5 mg during the day if needed. Otherwise, her lithium dose has been slowly decreased over the last 6 months or so down to the current dose of 300 mg daily due to her renal dysfunction. Her Vraylar has also been decreased down to 1.5 mg. In the ER, as above, imaging studies negative. ECG did show some new anterior T wave inversions in lead V2, but troponin was negative. She was noted to be anemic at 9.6 which is fairly stable from previous. Her creatinine was elevated but this is stable from previous. Her vital signs were within normal limits except for some hypertension. Urinalysis does not seem consistent with infection, but urine culture from 08/07 is growing alpha Streptococcus 20,000 CFU from a straight cath sample and this was not treated. She is agreeable to rehab placement. She will be brought in for frequent falls and evaluation for rehab placement with PT/OT consults. Principal Diagnosis falls, deconditioning Discharge Exam The patient is awake, alert and oriented 3, well developed and well nourished, normocephalic and atraumatic, lying in bed and in no acute distress. HEENT--PERRL, EOMI, mucous membranes and oropharynx mildly dry Neck--supple. No JVD. No bruits. Thyroid normal, trachea midline, no adenopathy. Heart--normal S1 and S2. No murmurs, rubs or gallops. Lungs--clear bilaterally, no respiratory distress, no accessory muscle use. Abdomen--normal bowel sounds and soft. Mild epigastric and left sided abdominal pain Extremities--no cyanosis or clubbing. No edema. Dermatologic--normal skin turgor, normal color, no abnormal lymph nodes, no rash. Neurologic--cranial nerves II through XII grossly intact. Rheumatologic--normal range of motion. Psychiatric--normal affect. Discharge Data Allergies Allergy/AdvReac Type Severity Reaction Status Date / Time latex Allergy Severe UNKNOWN Verified 08/09/21 16:01 aspirin Allergy Unknown UNKNOWN Verified 08/09/21 16:01 REACTION clozapine Allergy Unknown TOXIC Verified 08/09/21 16:01 REACTION codeine Allergy Unknown UNKNOWN Verified 08/09/21 16:01 REACTION ibuprofen Allergy Unknown UNKNOWN Verified 08/09/21 16:01 REACTION lurasidone Allergy Unknown TOXIC Verified 08/09/21 16:01 REACTION Penicillins Allergy Unknown UNKNOWN Verified 08/09/21 16:01 REACTION Sulfa (Sulfonamide Allergy Unknown UNKNOWN Verified 08/09/21 16:01 Antibiotics) REACTION Consultations 08/09/21 18:13 ED Decision to Admit Stat Hospital Course (1) Falls frequently: Etiology could be multifactorial. Orthostatics, deconditioning or effect of some podiatrist medications CT thoracic and Lumbar spine only show degenerative changes On exam, poor muscle tone Will recommend continued PT (2) Anemia: Hemoglobin low at 9.6 Takes daily iron tablets Check B12, folate, iron studies and replace as needed Follow CBC (3) Asthma: With history of 3 packs a day of smoking but quit smoking 13 years ago With COPD No acute issues, oxygen levels here are normal Continue home Singulair She is requesting a nebulizer machine for at home (4) Back pain: Acute on chronic secondary to fall No acute fractures Does have pars defect on imaging Pain control Tylenol only (5) Benign essential hypertension: Blood pressure is mildly elevated here Continue home amlodipine 10 mg daily, losartan 25 mg daily Is also on prazosin at nighttime presumably for psychiatric benefits (6) Bipolar I disorder, single manic episode: Continue home lithium, Lamictal, lorazepam, olanzapine, Vraylar Follows with Dr. Hahn of psychiatry as an outpatient Has had numerous inpatient stays over the years for psychiatric reasons (7) Chronic diastolic CHF (congestive heart failure): No acute issues Blood pressure control (8) COPD, mild: As above, no acute issues (9) Deafness: Uses white board to communicate (10) Diabetes mellitus type 2, controlled: May be resolved Hemoglobin A1c was 5.8% in 01/2021 Insulin here as needed (11) Gastroesophageal reflux disease: No acute issues Continue PPI (12) Schizoaffective disorder: Medications as above (13) Stage III chronic kidney disease: Creatinine stable here at 1.5 -Avoid nephrotoxins -renally dose meds when appropriate -follow BMP Continue losartan (14) Ankle pain, right: Tylenol as above Ankle x-ray negative (15) Dysuria: UA here without evidence of infection Urine culture from 08/07 growing alpha Streptococcus 20,000 CFU's from a straight cath sample and this was not treated as far as I can tell-may be contaminant No fevers and urine here is negative Would not treat with antibiotics at this time has been accepted at [facility] Total Time Total Time Spent Total Time Spent (In Minutes): 35 Discharge Plan Discharge Items Patient Disposition: Transfer Long-Term Fac Reason For Visit: FALLS,EVALUATION FOR REHAB Discharge Diagnosis: Deconditioning, Acute encephalopathy-resolved Activity: Resume your previous activity Non-emergency contact: Primary Care Provider Call non-emergency contact if: you have any medication questions Follow-up/Referrals: Santos Galeano III, CRNP [Primary Care Provider] - Diet: Regular Addtl Attending Provider Instructions: please make appointment to follow up with your doctors Pending Studies at Discharge: No Stand-Alone Forms: My [facility] Skilled Items Patient informed of condition?: Yes DNR: No Discharge Level of Care: Skilled Communicable Disease: No Discharge Prognosis: Stable Lines: None Urinary Catheter: No Medications and DC Order Prescriptions: Continued multivitamin [Multiple Vitamins] Tablet 1 tab PO QAM Qty: 0 RF: 0 olanzapine [Zyprexa] 10 mg Tablet 10 mg PO HS Qty: 0 RF: 0 lamotrigine [Lamictal] 25 mg Tablet 25 mg PO BID Qty: 0 RF: 0 lamotrigine [Lamictal] 100 mg Tablet 100 mg PO BID Qty: 0 RF: 0 (DME) blood-glucose meter [OneTouch Ultra2 Meter] Misc See Rx Instructions .MEDSUPPLY Qty: 1 RF: 0 (DME) OneTouch Ultra Blue Test Strip Strip See Rx Instructions .MEDSUPPLY Qty: 100 RF: 1 (DME) lancets [OneTouch Delica Plus Lancet] 30 gauge misc See Rx Instructions .MEDSUPPLY Qty: 100 RF: 5 ferrous gluconate 324 mg (37.5 mg iron) tablet 324 mg PO QAM Qty: 30 RF: 5 amlodipine 10 mg tablet 10 mg PO QAM Qty: 90 RF: 1 (DME) Select Briefs Misc See Rx Instructions .Route Qty: 120 RF: 5 atorvastatin 10 mg tablet 10 mg PO HS Qty: 90 RF: 1 losartan 25 mg tablet 25 mg PO QAM Qty: 90 RF: 1 montelukast 10 mg tablet 10 mg PO QAM Qty: 90 RF: 3 omeprazole 20 mg capsule,delayed release(DR/EC) 20 mg PO QAM Qty: 90 RF: 1 (DME) blood sugar diagnostic Strip See Rx Instructions .ROUTE .MEDSUPPLY Qty: 400 RF: 1 (DME) blood-glucose meter [OneTouch Ultra2 Meter] Misc See Rx Instructions .ROUTE .MEDSUPPLY Qty: 1 RF: 0 prazosin 1 mg Capsule 2 mg PO HS Qty: 60 RF: 0 acetaminophen [Tylenol Extra Strength] 500 mg Tablet 1,000 mg PO BID RF: 0 cholecalciferol (vitamin D3) [Vitamin D3] 25 mcg (1,000 unit) Tablet 25 mcg PO QAM RF: 0 Januvia 25 mg tablet 25 mg PO QAM RF: 0 lorazepam 2 mg tablet 2 mg PO HS RF: 0 lithium carbonate 300 mg tablet extended release 300 mg PO QPM RF: 0 olanzapine 20 mg tablet 20 mg PO HS RF: 0 Vraylar 1.5 mg capsule 1.5 mg PO QAM RF: 0 lorazepam 0.5 mg tablet 0.5 mg PO HS RF: 0 Discharge Orders: Discharge Order (Routine); Ordered 08/11/21 Ordered By: Singh Lynn Admission Data Admit Date/Time: 08/09/21 18:08 Attending Provider: Singh Lynn Admit Provider: Lissette Perez Primary Care Provider: Santos Galeano III Other Providers: Lissette Perez ; [facility] Coding Level of Care Code D/C DAY MANAGEMENT >30 MINS Diagnoses Falls frequently R29.6 Anemia D64.9 Asthma J45.909 Back pain M54.9 Benign essential hypertension I10 Bipolar I disorder, single manic episode F30.9 Chronic diastolic CHF (congestive heart failure) I50.32 COPD, mild J44.9 Deafness H91.90 Diabetes mellitus type 2, controlled E11.22; N18.30 Diabetes mellitus snf insulin use: without snf use Diabetes mellitus complication status: with kidney complications Diabetes mellitus complication detail: with chronic kidney disease Chronic kidney disease stage: stage 3 (moderate) Gastroesophageal reflux disease K21.9 Esophagitis presence: without esophagitis Schizoaffective disorder F25.9 Schizoaffective disorder type: unspecified Stage III chronic kidney disease N18.32 Chronic kidney disease stage 3 subtype: stage 3b (GFR 30-44) Ankle pain, right M25.571 Dysuria R30.0 Time Spent (min) 35
== END 2021-08-11 18:14 | DRG 92 ==
LOC: ED 14:37 → SUATTDRO 18:08 → 3N 18:08

== ENCOUNTER 2021-08-22 05:23 | Inpatient (IN) ==
[2021-08-22 06:57] LABS: Eosinophils # (auto) 0.01 K/uL (0-0.5); Eosinophils % (auto) 0.2 %; Hematocrit (blood only) 28.9 % (37-47); Hemoglobin 9.3 g/dL (12.0-16.0); Immature Granulocytes # (auto) 0.01 K/uL (0.00-0.02); Immature Granulocytes % (auto) 0.2 %; Lymphocytes # (auto) 0.79 K/uL (1.2-3.4); Lymphocytes % (auto) 18.5 %; Mean Corpuscular Hgb Conc 32.2 g/dL (32-36); Mean Corpuscular Volume 99.3 fL (80-100); Mean Platelet Volume 10.1 fL (7.4-10.4); Monocytes # (auto) 0.37 K/uL (0.11-0.59); Monocytes % (auto) 8.6 %; Neutrophils % (auto) 72.5 %; Platelet Count 330 K/uL (130-400); RDW Coefficient of Variation 14.4 % (11.5-14.5); RDW Standard Deviation 51.5 fL (36.4-46.3); Red Blood Count 2.91 M/uL (4.2-5.4); White Blood Count 4.28 K/uL (4.8-10.8)
[2021-08-22] MEDS ORDERED: SODIUM CHLORIDE 0.9% 1000ML 1,000 ML IV SCH (07:00)
[2021-08-22 07:17] LABS: Albumin Globulin Ratio 1.5 (0.9-2); Albumin Level 3.8 gm/dl (3.4-5.0); BUN Creatinine Ratio 17.3 (10-20); Bilirubin,Total 0.3 mg/dl (0.2-1.0); Calcium 9.5 mg/dl (8.5-10.1); Creatinine Clr Calc Pharmacy 25.9 ml/min; Est GFR (African American) 37.2 ml/min; Est GFR (Non-African American) 32.1 ml/min; Globulin 2.6 gm/dl (2.5-4.0); Magnesium 2.3 mg/dl (1.7-2.4); Potassium 3.8 mmol/L (3.5-5.1); Total Protein 6.4 gm/dl (6.0-8.3)
--- NOTE | 2021-08-22 08:03 | Emergency Department Note ---
Impression & Plan CHI (closed head injury), Schizoaffective disorder, Fall, Unable to care for self ED Provider Note CHIEF COMPLAINT: Fall, R hip/side pain HISTORY OF PRESENT ILLNESS: This 71 yo female patient presents to the emergency department with complaints of a fall, right side and leg pain focused at the pelvis after the fall. The patient states she does not remember the injury she does not remember getting out of bed. Her states he found her on the floor this morning. states she was "out of it" when he found her but it is unclear if she truly lost consciousness. There is no vomiting. The patient thinks maybe she hit the back of her head but denies any neck pain. This is not an infrequent situation for them. Patient was discharged from [facility] "2-3 days ago," according to the patient's . The patient does suffer from frequent falls and is on Plavix but no anticoagulants. She does have in-home physical therapy as well as a foster care case manager through [employer] ([place]). REVIEW OF SYSTEMS: A review of systems was performed with positives and pertinent negatives listed in the history of present illness. 10 systems were reviewed and are otherwise negative. ALLERGIES: see below MEDICATIONS: see below PMH: see below SOCIAL HISTORY: see below DDx: Infection, dehydration, metabolic abnormality, hypo/hyperglycemia, electrolyte disturbance, anemia, hypoxia, cardiac sources, intracerebral event, toxicologic, neurologic, as well as other pathologies. PHYSICAL EXAM: Vital signs reviewed. General: Chronically ill-appearing 71 yo female, in no significant distress. HEENT: No scleral icterus, PERRLA, neck supple. Atraumatic. Cardiovascular: Regular rate and rhythm, no extra sounds. Pulmonary: Clear to auscultation bilaterally, normal work of breathing. Abdomen: Soft, nontender, nondistended, positive bowel sounds. Musculoskeletal: Atraumatic, no peripheral edema. Nontender to palpation over the cervical, thoracic and lumbar spines. No pain with pelvic rocking, full range of motion of the bilateral hips and knees. Generalized atrophy of the musculature of the bilateral lower extremities with 1+ pitting edema bilaterally. Neurologic: Patient awake alert and oriented x 3, speech is clear Skin: Warm, dry, no rash EMERGENCY DEPARTMENT COURSE/MDM: This patient was evaluated and appeared to be in no significant distress. IV access was obtained and laboratory work was drawn. Patient was placed on the food service sales representatives and noted to be in a normal sinus rhythm. IV access was obtained and laboratory work was drawn. The patient is overall chronically ill-appearing and clearly deconditioned however [facility]. She is actively engaged with [facility] from a case management standpoint and has in-home physical therapy services. The numerical analysis group manager contacted the patient's intensive foster care case manager who stated she benefited greatly from the care of the inpatient rehabilitation facility. The patient is not anxious to leave her for that period of time but he is unable to keep her safe at home. Patient has been in the emergency department 4 times in the last 20 days according to the foster care case manager. It appears that she will likely need long-term placement. The hospitalist service has been consulted, Dr. Perez has agreed to evaluate the patient for further management. Does not appear that the patient has suffered any acute injuries from today's fall. MONITORING: An order for cardiac monitoring was placed and the patient is noted to be in a NSR at 73 beats per minute. RADIOLOGY: see below EKG: NSR at 79 bpm. No acute ischemia. No PVC, no PAC. Normal axis, QTC is 470. T wave inversion in the anterior leads is no longer present when compared to previous dated 08/09/21 DISPOSITION: Admit Past Med/Surg History Medical History Anxiety Asthma no inh Bilateral edema of lower extremity Bipolar disorder Chronic diastolic CHF (congestive heart failure) per record; allen could not confirm. does not follow with conditioner tender CKD (chronic kidney disease) used to follow with [facility]. per allen, no longer follows with Deafness Depression GERD (gastroesophageal reflux disease) Hyperlipemia Hyperparathyroidism Osteoarthritis Osteoporosis Poor historian allen provided PMH Schizoaffective disorder Spondylolisthesis Type II diabetes mellitus NIDDM Surgical History History of cataract surgery History of tooth extraction History of tubal ligation Status post breast lumpectomy Family History Father Myocardial infarction Brother Rheumatoid arthritis Other Cancer Diabetes Heart disease Hypertension Lung disease Denies family history of Colon cancer Ovarian cancer Prostate cancer Breast cancer Social History Smoking Status: Former smoker Tobacco Type: Cigarettes Second Hand Exposure: No; Hx Alcohol Use: Yes Hx Substance Use: No Preferred Language: Italian Visual Impairment: Partially Limited Hearing Ability: Associate 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 Required: No Beliefs That Will Affect Care: None marital status: Single Current Living Situation: Spouse current occupational status: disabled Feels Safe at Home: Yes Childhood Exposure to Second-Hand Smoke: No Dental Care, Regularly: No Physical Activity Frequency: 5-6 Times per Week Seatbelt Use: always Sunscreen Use: No Assistive Devices: Glasses and Walker Allergies Allergies Allergy/AdvReac Type Severity Reaction Status Date / Time latex Allergy Severe UNKNOWN Verified 08/22/21 07:19 aspirin Allergy Unknown UNKNOWN Verified 08/22/21 07:19 REACTION clozapine Allergy Unknown TOXIC Verified 08/22/21 07:19 REACTION codeine Allergy Unknown UNKNOWN Verified 08/22/21 07:19 REACTION ibuprofen Allergy Unknown UNKNOWN Verified 08/22/21 07:19 REACTION lurasidone Allergy Unknown TOXIC Verified 08/22/21 07:19 REACTION Penicillins Allergy Unknown UNKNOWN Verified 08/22/21 07:19 REACTION Sulfa (Sulfonamide Allergy Unknown UNKNOWN Verified 08/22/21 07:19 Antibiotics) REACTION Home Meds Home Medications Medication Instructions Recorded Confirmed multivitamin (Multiple Vitamins) 1 tab PO QAM #0 11/17/17 08/22/21 lamotrigine 100 mg tablet 100 mg PO BID #0 12/30/17 08/22/21 (Lamictal) lamotrigine 25 mg tablet (Lamictal) 25 mg PO BID #0 12/30/17 08/22/21 olanzapine 10 mg tablet (Zyprexa) 10 mg PO HS #0 12/30/17 08/22/21 cholecalciferol (vitamin D3) 25 25 mcg PO QAM 08/26/20 08/22/21 mcg (1,000 unit) tablet (Vitamin D3) lithium carbonate 300 mg 300 mg PO HS 08/02/21 08/22/21 tablet,extended release lorazepam 2 mg tablet 2 mg PO HS 08/02/21 08/22/21 olanzapine 20 mg tablet 20 mg PO HS 08/02/21 08/22/21 sitagliptin 25 mg tablet (Januvia) 25 mg PO QAM 08/07/21 08/22/21 cariprazine 1.5 mg capsule 1.5 mg PO QAM 08/09/21 08/22/21 (Vraylar) Previous Rx's Medication Instructions Recorded prazosin 1 mg capsule 2 mg PO HS #60 cap 05/08/18 blood sugar diagnostic (OneTouch #100 ea 08/25/20 Ultra Blue Test Strip) blood-glucose meter (OneTouch #1 ea 08/25/20 Ultra2 Meter) atorvastatin 10 mg tablet 10 mg PO HS #90 tab 03/09/21 blood sugar diagnostic #400 ea 03/09/21 blood-glucose meter (OneTouch #1 ea 03/09/21 Ultra2 Meter) losartan 25 mg tablet 25 mg PO QAM #90 tab 03/09/21 montelukast 10 mg tablet 10 mg PO QAM #90 tab 03/09/21 omeprazole 20 mg capsule,delayed 20 mg PO QAM #90 cap 03/09/21 release lancets 30 gauge (OneTouch Delica #100 ea 03/18/21 Plus Lancet) amlodipine 10 mg tablet 10 mg PO QAM #90 tab 06/29/21 diaper,brief,adult,disposable #120 ea 08/07/21 (Select Briefs) Results & Data (ED) Vital Signs Vital Signs - 24 hr 08/22/21 05:13 08/22/21 05:32 08/22/21 05:40 Temperature 36.8 C Temperature Source Oral Pulse Rate 82 83 81 Pulse Rate from SpO2 Sensor 84 80 Respiratory Rate 18 16 22 Respiratory Effort / Characteristics Non-Labored Respiratory Depth Normal Blood Pressure 150/76 H Blood Pressure Mean 100 Pulse Oximetry 92 95 95 Oxygen Delivery Method Room Air Sepsis Recent Fever Within 48 Hours No Sepsis New/Unexplained Change in Mental Status No Sepsis Action Taken by Nursing No Action Required 08/22/21 05:50 08/22/21 06:00 08/22/21 06:10 Temperature Temperature Source Pulse Rate 72 77 75 Pulse Rate from SpO2 Sensor 73 77 75 Respiratory Rate 17 21 14 Respiratory Effort / Characteristics Respiratory Depth Blood Pressure Blood Pressure Mean Pulse Oximetry 96 99 99 Oxygen Delivery Method Sepsis Recent Fever Within 48 Hours Sepsis New/Unexplained Change in Mental Status Sepsis Action Taken by Nursing 08/22/21 06:20 08/22/21 06:30 08/22/21 06:40 Temperature Temperature Source Pulse Rate 83 74 74 Pulse Rate from SpO2 Sensor 82 76 74 Respiratory Rate 14 19 6 L Respiratory Effort / Characteristics Respiratory Depth Blood Pressure Blood Pressure Mean Pulse Oximetry 93 94 93 Oxygen Delivery Method Sepsis Recent Fever Within 48 Hours Sepsis New/Unexplained Change in Mental Status Sepsis Action Taken by Nursing 08/22/21 06:48 08/22/21 06:50 08/22/21 07:00 Temperature Temperature Source Pulse Rate 81 83 75 Pulse Rate from SpO2 Sensor 80 82 81 Respiratory Rate 13 17 21 Respiratory Effort / Characteristics Respiratory Depth Blood Pressure 141/78 H 125/82 Blood Pressure Mean 99 96 Pulse Oximetry 96 94 91 Oxygen Delivery Method Sepsis Recent Fever Within 48 Hours Sepsis New/Unexplained Change in Mental Status Sepsis Action Taken by Nursing 08/22/21 07:10 08/22/21 07:20 08/22/21 07:30 Temperature Temperature Source Pulse Rate 81 73 83 Pulse Rate from SpO2 Sensor 82 75 88 Respiratory Rate 24 21 19 Respiratory Effort / Characteristics Respiratory Depth Blood Pressure Blood Pressure Mean Pulse Oximetry 96 97 91 Oxygen Delivery Method Sepsis Recent Fever Within 48 Hours Sepsis New/Unexplained Change in Mental Status Sepsis Action Taken by Nursing 08/22/21 07:31 08/22/21 07:40 08/22/21 07:50 Temperature Temperature Source Pulse Rate 79 76 79 Pulse Rate from SpO2 Sensor 79 76 80 Respiratory Rate 26 H 24 24 Respiratory Effort / Characteristics Respiratory Depth Blood Pressure 155/72 H Blood Pressure Mean 99 Pulse Oximetry 98 97 97 Oxygen Delivery Method Sepsis Recent Fever Within 48 Hours Sepsis New/Unexplained Change in Mental Status Sepsis Action Taken by Nursing 08/22/21 08:00 08/22/21 08:10 08/22/21 08:20 Temperature Temperature Source Pulse Rate 80 81 83 Pulse Rate from SpO2 Sensor 76 80 82 Respiratory Rate 22 18 23 Respiratory Effort / Characteristics Respiratory Depth Blood Pressure 151/72 H Blood Pressure Mean 98 Pulse Oximetry 79 L 98 99 Oxygen Delivery Method Sepsis Recent Fever Within 48 Hours Sepsis New/Unexplained Change in Mental Status Sepsis Action Taken by Nursing 08/22/21 08:34 08/22/21 08:40 08/22/21 08:50 Temperature Temperature Source Pulse Rate 84 77 78 Pulse Rate from SpO2 Sensor 78 78 Respiratory Rate 14 21 23 Respiratory Effort / Characteristics Respiratory Depth Blood Pressure Blood Pressure Mean Pulse Oximetry 100 99 Oxygen Delivery Method Sepsis Recent Fever Within 48 Hours Sepsis New/Unexplained Change in Mental Status Sepsis Action Taken by Nursing 08/22/21 09:00 08/22/21 09:10 08/22/21 09:20 Temperature Temperature Source Pulse Rate 79 87 83 Pulse Rate from SpO2 Sensor 80 87 82 Respiratory Rate 28 H 25 H 17 Respiratory Effort / Characteristics Respiratory Depth Blood Pressure 173/87 H Blood Pressure Mean 115 Pulse Oximetry 98 100 100 Oxygen Delivery Method Sepsis Recent Fever Within 48 Hours Sepsis New/Unexplained Change in Mental Status Sepsis Action Taken by Nursing 08/22/21 09:30 08/22/21 09:40 08/22/21 09:50 Temperature Temperature Source Pulse Rate 76 75 71 Pulse Rate from SpO2 Sensor 78 75 72 Respiratory Rate 19 19 21 Respiratory Effort / Characteristics Respiratory Depth Blood Pressure 156/85 H Blood Pressure Mean 108 Pulse Oximetry 96 98 97 Oxygen Delivery Method Sepsis Recent Fever Within 48 Hours Sepsis New/Unexplained Change in Mental Status Sepsis Action Taken by Correction Medications Current Medication List: was personally reviewed by me Laboratory Data Attestation: I reviewed the patient's lab results. Result diagrams: 08/22/21 05:12 08/22/21 05:12 Lab Results 08/22/21 08/22/21 08/22/21 Range/Units 05:12 05:12 05:12 WBC 4.28 L (4.8-10.8) K/uL RBC 2.91 L (4.2-5.4) M/uL Hgb 9.3 L (12.0-16.0) g/dL Hct 28.9 L (37-47) % MCV 99.3 (80-100) fL MCH 32.0 (25-34) pg MCHC 32.2 (32-36) g/dL RDW Std Deviation 51.5 H (36.4-46.3) fL RDW Coeff of Rachel 14.4 (11.5-14.5) % Plt Count 330 (130-400) K/uL MPV 10.1 (7.4-10.4) fL Immature Gran % (Auto) 0.2 % Neut % (Auto) 72.5 % Lymph % (Auto) 18.5 % [place] % (Auto) 8.6 % Eos % (Auto) 0.2 % Baso % (Auto) 0.0 % Neut # (Auto) 3.10 (1.4-6.5) K/uL Lymph # (Auto) 0.79 L (1.2-3.4) K/uL [place] # (Auto) 0.37 (0.11-0.59) K/uL Eos # (Auto) 0.01 (0-0.5) K/uL Baso # (Auto) 0.00 (0-0.2) K/uL Immature Gran # (Auto) 0.01 (0.00-0.02) K/uL Sodium 140 (136-145) mmol/L Potassium 3.8 (3.5-5.1) mmol/L Chloride 108 H (98-107) mmol/L Carbon Dioxide 27 (21-32) mmol/L Anion Gap 5 (3-11) BUN 28 H (6-23) mg/dl Creatinine 1.62 H (0.6-1.2) mg/dl Est Cr Clr Drug Dosing 25.9 ml/min Est GFR ( Amer) 37.2 ml/min Est GFR (Non-Af Amer) 32.1 ml/min BUN/Creatinine Ratio 17.3 (10-20) Glucose 92 (70-99(Fasting)) mg/dl Calcium 9.5 (8.5-10.1) mg/dl Magnesium 2.3 (1.7-2.4) mg/dl Total Bilirubin 0.3 (0.2-1.0) mg/dl AST 35 (13-39) U/L ALT 60 H (7-52) U/L Alkaline Phosphatase 71 (34-104) U/L Total Creatine Kinase 58 (26-192) U/L Total Protein 6.4 (6.0-8.3) gm/dl Albumin 3.8 (3.4-5.0) gm/dl Globulin 2.6 (2.5-4.0) gm/dl Albumin/Globulin Ratio 1.5 (0.9-2) TSH 1.689 (0.300-4.500) uIu/ml Urine Color Urine Appearance (Clear) Urine pH (4.5-7.5) Ur Specific [place] (1.000-1.030) Urine Protein (Negative) Urine Glucose (UA) (Negative) Urine Ketones (Negative) Urine Blood (Negative) Urine Nitrite (Negative) Urine Bilirubin (Negative) Urine Urobilinogen (Negative) Ur Leukocyte Esterase (Negative) Urine WBC (Auto) (0-5) /hpf Urine RBC (Auto) (0-4) /hpf U Hyaline Cast (Auto) (0-5) /lpf U Epithel Cells (Auto) (0-5) /lpf Urine Bacteria (Auto) (Negative) [place] (0.6-1.2) mmol/L SARS-CoV-2, RNA, NAAT (NEGATIVE) 08/22/21 08/22/21 08/22/21 Range/Units 07:41 08:00 09:30 WBC (4.8-10.8) K/uL RBC (4.2-5.4) M/uL Hgb (12.0-16.0) g/dL Hct (37-47) % MCV (80-100) fL MCH (25-34) pg MCHC (32-36) g/dL RDW Std Deviation (36.4-46.3) fL RDW Coeff of Rachel (11.5-14.5) % Plt Count (130-400) K/uL MPV (7.4-10.4) fL Immature Gran % (Auto) % Neut % (Auto) % Lymph % (Auto) % [place] % (Auto) % Eos % (Auto) % Baso % (Auto) % Neut # (Auto) (1.4-6.5) K/uL Lymph # (Auto) (1.2-3.4) K/uL [place] # (Auto) (0.11-0.59) K/uL Eos # (Auto) (0-0.5) K/uL Baso # (Auto) (0-0.2) K/uL Immature Gran # (Auto) (0.00-0.02) K/uL Sodium (136-145) mmol/L Potassium (3.5-5.1) mmol/L Chloride (98-107) mmol/L Carbon Dioxide (21-32) mmol/L Anion Gap (3-11) BUN (6-23) mg/dl Creatinine (0.6-1.2) mg/dl Est Cr Clr Drug Dosing ml/min Est GFR ( Amer) ml/min Est GFR (Non-Af Amer) ml/min BUN/Creatinine Ratio (10-20) Glucose (70-99(Fasting)) mg/dl Calcium (8.5-10.1) mg/dl Magnesium (1.7-2.4) mg/dl Total Bilirubin (0.2-1.0) mg/dl AST (13-39) U/L ALT (7-52) U/L Alkaline Phosphatase (34-104) U/L Total Creatine Kinase (26-192) U/L Total Protein (6.0-8.3) gm/dl Albumin (3.4-5.0) gm/dl Globulin (2.5-4.0) gm/dl Albumin/Globulin Ratio (0.9-2) TSH (0.300-4.500) uIu/ml Urine Color Yellow Urine Appearance Clear (Clear) Urine pH 7.5 (4.5-7.5) Ur Specific [place] 1.004 (1.000-1.030) Urine Protein Trace H (Negative) Urine Glucose (UA) Negative (Negative) Urine Ketones Negative (Negative) Urine Blood Negative (Negative) Urine Nitrite Negative (Negative) Urine Bilirubin Negative (Negative) Urine Urobilinogen Negative (Negative) Ur Leukocyte Esterase Trace H (Negative) Urine WBC (Auto) 1-5 (0-5) /hpf Urine RBC (Auto) 0-4 (0-4) /hpf U Hyaline Cast (Auto) 0 (0-5) /lpf U Epithel Cells (Auto) 5-10 H (0-5) /lpf Urine Bacteria (Auto) Negative (Negative) [place] 0.6 (0.6-1.2) mmol/L SARS-CoV-2, RNA, NAAT NEGATIVE (NEGATIVE) Administered Medications Acetaminophen (Acetaminophen 325 Mg Tab) 650 mg PO Q4H PRN PRN Reason: pain/fever Stop: 09/21/21 12:11 Last Admin: 08/24/21 20:58 Dose: 650 mg Documented by: [id number] Admin: 08/23/21 21:03 Dose: 650 mg Documented by: [id number] Admin: 08/22/21 20:54 Dose: 650 mg Documented by: [id number] Amlodipine Besylate (Amlodipine Besylate 5 Mg Tab) 10 mg PO [facility] Stop: 09/22/21 08:59 Last Admin: 08/25/21 08:59 Dose: 10 mg Documented by: [id number] Admin: 08/24/21 09:12 Dose: 10 mg Documented by: [id number] Admin: 08/23/21 08:47 Dose: 10 mg Documented by: [id number] Atorvastatin Calcium (Atorvastatin 10 Mg Tab) 10 mg PO HS GEORGE Stop: 09/21/21 20:59 Last Admin: 08/25/21 20:21 Dose: 10 mg Documented by: [id number] Admin: 08/24/21 21:00 Dose: 10 mg Documented by: [id number] Admin: 08/23/21 21:05 Dose: 10 mg Documented by: [id number] Admin: 08/22/21 20:46 Dose: 10 mg Documented by: [id number] Cariprazine (Cariprazine Hcl 1.5 Mg Capsule - Pt Own Med) 1 ea PO QAM GEORGE Stop: 09/22/21 15:59 Last Admin: 08/25/21 08:58 Dose: 1 ea Documented by: [id number] Admin: 08/24/21 09:11 Dose: 1 ea Documented by: [id number] Admin: 08/23/21 16:04 Dose: 1 ea Documented by: [id number] Diclofenac Sodium (Diclofenac Sod 1% Gel 100 Gm Tube) 2 gm EXT QID GEORGE Stop: 09/22/21 13:29 Last Admin: 08/25/21 20:22 Dose: 2 gm Documented by: [id number] Admin: 08/25/21 18:02 Dose: 2 gm Documented by: [id number] Admin: 08/25/21 13:00 Dose: 2 gm Documented by: [id number] Admin: 08/25/21 08:59 Dose: 2 gm Documented by: [id number] Admin: 08/24/21 21:01 Dose: 2 gm Documented by: [id number] Admin: 08/24/21 17:39 Dose: 2 gm Documented by: [id number] Admin: 08/24/21 12:41 Dose: 2 gm Documented by: [id number] Admin: 08/24/21 10:14 Dose: 2 gm Documented by: [id number] Admin: 08/23/21 21:04 Dose: 2 gm Documented by: [id number] Admin: 08/23/21 16:05 Dose: 2 gm Documented by: [id number] Admin: 08/23/21 16:05 Dose: Not Given Documented by: [id number] Insulin Aspart (Insulin Aspart Per Unit) 0 units SC ACHS GEORGE Stop: 09/21/21 12:11 Last Admin: 08/25/21 20:35 Dose: 1 units Documented by: [id number] Cosigned by: [id number] Admin: 08/25/21 18:01 Dose: 2 units Documented by: [id number] Cosigned by: [id number] Admin: 08/25/21 12:29 Dose: Not Given Documented by: [id number] Admin: 08/25/21 08:22 Dose: Not Given Documented by: [id number] Admin: 08/24/21 21:55 Dose: Not Given Documented by: [id number] Cosigned by: [id number] Admin: 08/24/21 17:38 Dose: Not Given Documented by: [id number] Admin: 08/24/21 12:40 Dose: Not Given Documented by: [id number] Admin: 08/24/21 09:09 Dose: Not Given Documented by: [id number] Admin: 08/23/21 21:32 Dose: Not Given Documented by: [id number] Cosigned by: [id number] Admin: 08/23/21 17:21 Dose: Not Given Documented by: [id number] Admin: 08/23/21 13:50 Dose: Not Given Documented by: [id number] Admin: 08/23/21 08:46 Dose: Not Given Documented by: [id number] Admin: 08/22/21 21:53 Dose: Not Given Documented by: [id number] Cosigned by: [id number] Admin: 08/22/21 17:21 Dose: Not Given Documented by: [id number] Admin: 08/22/21 13:29 Dose: Not Given Documented by: [id number] Lamotrigine (Lamotrigine 25 Mg Tab) 25 mg PO BID GEORGE Stop: 09/21/21 12:11 Last Admin: 08/25/21 20:21 Dose: 25 mg Documented by: [id number] Admin: 08/25/21 08:58 Dose: 25 mg Documented by: [id number] Admin: 08/24/21 21:00 Dose: 25 mg Documented by: [id number] Admin: 08/24/21 09:12 Dose: 25 mg Documented by: [id number] Admin: 08/23/21 21:05 Dose: 25 mg Documented by: [id number] Admin: 08/23/21 08:48 Dose: 25 mg Documented by: [id number] Admin: 08/22/21 20:45 Dose: 25 mg Documented by: [id number] Admin: 08/22/21 13:06 Dose: 25 mg Documented by: [id number] Lamotrigine (Lamotrigine 100 Mg Tab) 100 mg PO BID GEORGE Stop: 09/21/21 12:11 Last Admin: 08/25/21 20:21 Dose: 100 mg Documented by: [id number] Admin: 08/25/21 08:58 Dose: 100 mg Documented by: [id number] Admin: 08/24/21 21:00 Dose: 100 mg Documented by: [id number] Admin: 08/24/21 10:14 Dose: 100 mg Documented by: [id number] Admin: 08/23/21 21:04 Dose: 100 mg Documented by: [id number] Admin: 08/23/21 08:48 Dose: 100 mg Documented by: [id number] Admin: 08/22/21 20:46 Dose: 100 mg Documented by: [id number] Admin: 08/22/21 13:06 Dose: 100 mg Documented by: [id number] [place] Carbonate ([place] Carbonate Slow Rel 300 Mg Tab) 300 mg PO [facility] Stop: 09/21/21 20:59 Last Admin: 08/25/21 20:20 Dose: 300 mg Documented by: [id number] Admin: 08/24/21 20:59 Dose: 300 mg Documented by: [id number] Admin: 08/23/21 21:04 Dose: 300 mg Documented by: [id number] Admin: 08/22/21 20:46 Dose: 300 mg Documented by: [id number] Lorazepam (Lorazepam 1 Mg Tab) 2 mg PO [facility] Stop: 09/21/21 20:59 Last Admin: 08/25/21 20:19 Dose: 2 mg Documented by: [id number] Admin: 08/24/21 20:58 Dose: 2 mg Documented by: [id number] Admin: 08/23/21 21:03 Dose: 2 mg Documented by: [id number] Admin: 08/22/21 20:45 Dose: 2 mg Documented by: [id number] Losartan Potassium (Losartan Potassium 25 Mg Tab) 25 mg PO [facility] GEORGE Stop: 09/21/21 12:11 Last Admin: 08/25/21 08:59 Dose: 25 mg Documented by: [id number] Admin: 08/24/21 09:12 Dose: 25 mg Documented by: [id number] Admin: 08/23/21 08:49 Dose: 25 mg Documented by: [id number] Admin: 08/22/21 13:06 Dose: 25 mg Documented by: [id number] Montelukast Sodium (Montelukast Sodium 10 Mg Tablet) 10 mg PO [facility] Stop: 09/21/21 12:11 Last Admin: 08/25/21 08:58 Dose: 10 mg Documented by: [id number] Admin: 08/24/21 09:12 Dose: 10 mg Documented by: [id number] Admin: 08/23/21 08:49 Dose: 10 mg Documented by: [id number] Admin: 08/22/21 13:06 Dose: 10 mg Documented by: [id number] Multivitamins (Multivitamin Tab) 1 tab PO QAM GEORGE Stop: 09/21/21 12:11 Last Admin: 08/25/21 08:58 Dose: 1 tab Documented by: [id number] Admin: 08/24/21 09:13 Dose: 1 tab Documented by: [id number] Admin: 08/23/21 08:48 Dose: 1 tab Documented by: [id number] Admin: 08/22/21 13:06 Dose: 1 tab Documented by: [id number] Olanzapine (Olanzapine 20 Mg Tablet) 20 mg PO [facility] Stop: 09/21/21 20:59 Last Admin: 08/25/21 20:20 Dose: 20 mg Documented by: [id number] Admin: 08/24/21 20:59 Dose: 20 mg Documented by: [id number] Admin: 08/23/21 21:05 Dose: 20 mg Documented by: [id number] Admin: 08/22/21 20:46 Dose: 20 mg Documented by: [id number] Olanzapine (Olanzapine 10 Mg Tab) 10 mg PO HS [facility] Stop: 09/21/21 20:59 Last Admin: 08/25/21 20:20 Dose: 10 mg Documented by: [id number] Admin: 08/24/21 20:59 Dose: 10 mg Documented by: [id number] Admin: 08/23/21 21:05 Dose: 10 mg Documented by: [id number] Admin: 08/22/21 20:45 Dose: 10 mg Documented by: [id number] Ondansetron HCl (Ondansetron Inj 2 Mg/Ml 2 Ml Vial) 4 mg IV Q6H PRN PRN Reason: Nausea Stop: 09/21/21 12:11 Last Admin: 08/25/21 19:21 Dose: 4 mg Documented by: [id number] Admin: 08/25/21 10:45 Dose: 4 mg Documented by: [id number] Pantoprazole Sodium (Pantoprazole 40 Mg Tab) 40 mg PO QAM GEORGE Stop: 09/21/21 12:11 Last Admin: 08/25/21 08:59 Dose: 40 mg Documented by: [id number] Admin: 08/24/21 09:12 Dose: 40 mg Documented by: [id number] Admin: 08/23/21 08:48 Dose: 40 mg Documented by: [id number] Admin: 08/22/21 13:06 Dose: 40 mg Documented by: [id number] Sitagliptin Phosphate (Sitagliptin Phosphate 25 Mg Tab) 25 mg PO [facility] Stop: 09/22/21 08:59 Last Admin: 08/25/21 08:59 Dose: 25 mg Documented by: [id number] Admin: 08/24/21 09:12 Dose: 25 mg Documented by: [id number] Admin: 08/23/21 08:49 Dose: 25 mg Documented by: [id number] Vitamin D (Cholecalciferol 1,000 Units 25 Mcg Tab) 1,000 units PO [facility] Stop: 09/21/21 12:59 Last Admin: 08/25/21 08:59 Dose: 1,000 units Documented by: [id number] Admin: 08/24/21 09:12 Dose: 1,000 units Documented by: [id number] Admin: 08/23/21 08:48 Dose: 1,000 units Documented by: [id number] Admin: 08/22/21 13:06 Dose: 1,000 units Documented by: [id number] Discontinued Medications Albuterol (Albuterol 0.083% Nebu Soln 3 Ml Vial) 2.5 mg NEB NOW STA; Protocol Stop: 08/23/21 13:13 Last Admin: 08/23/21 13:27 Dose: 2.5 mg Documented by: [id number] Cyanocobalamin (Cyanocobalamin 1000 Mcg/Ml Vial) 1,000 mcg IM [facility] Stop: 08/24/21 09:01 Last Admin: 08/24/21 09:12 Dose: 1,000 mcg Documented by: [id number] Admin: 08/23/21 08:48 Dose: 1,000 mcg Documented by: [id number] Admin: 08/22/21 20:44 Dose: 1,000 mcg Documented by: [id number] Sodium Chloride (Nss 1000ml) 1,000 mls @ 125 mls/hr IV .Q8H [facility] [facility] Stop: 08/22/21 14:59 Last Infusion: 08/22/21 12:30 Dose: 0 mls/hr Documented by: [id number] Admin: 08/22/21 07:12 Dose: 125 mls/hr Documented by: [id number] Iron Sucrose 300 mg/ Sodium (Chloride) 265 mls @ 176.667 mls/hr IV TODAY@1930 ONE Stop: 08/23/21 20:59 Last Infusion: 08/23/21 21:00 Dose: 0 mls/hr Documented by: [id number] Admin: 08/23/21 19:30 Dose: 176.7 mls/hr Documented by: [id number] Miscellaneous (Vraylar-Order Awaiting Action) 1 ea N/A QS GEORGE Stop: 09/21/21 15:59 Last Admin: 08/23/21 07:49 Dose: Not Given Documented by: [id number] Admin: 08/22/21 23:41 Dose: Not Given Documented by: [id number] Admin: 08/22/21 15:14 Dose: Not Given Documented by: [id number] Prazosin HCl (Prazosin Hcl 1 Mg Cap) 1 mg PO HS GEORGE Stop: 09/21/21 20:59 Last Admin: 08/22/21 20:45 Dose: 1 mg Documented by: [id number] Imaging Data Radiologist's Impression: Chest X-Ray 08/22/21 06:46 XR chest 1V portable CLINICAL HISTORY: weakness COMPARISON STUDY: Chest radiograph August 09, 2021. FINDINGS: Lung volumes are normal. Lungs are clear. There is no pneumothorax or pleural effusion. Cardiac size is stable. Mediastinal contours are normal. There is no evidence for pulmonary edema. IMPRESSION: No acute cardiopulmonary findings. ACT 112: Negative or not required by law. Electronically signed by: Armand Roland M.D. 08/22/2021 9:[address] 08/22/21 06:46 CT OF THE HEAD WITHOUT CONTRAST CLINICAL HISTORY: fall last night, recurrent COMPARISON STUDY: Head CT 08/07/2021. CT DOSE: 614.27 mGy.cm TECHNIQUE: Helical axial images of the head were obtained without IV contrast. Automated exposure control was utilized for the study. A dose lowering technique was utilized adhering to the principles of ALARA. FINDINGS: No acute intracranial hemorrhage, midline shift or mass effect is present. The ventricular system is unremarkable. The basal cisterns are patent. No extra-axial collections are present. There are no findings to suggest acute dural sinus thrombosis or acute territorial infarct. No significant calvarial abnormalities are present. Visualized portions of the sinuses and mastoid air cells are clear. IMPRESSION: 1. No acute intracranial findings. 2. No acute calvarial fracture. ACT 112: Negative or not required by law. Electronically signed by: Armand Roland M.D. 08/22/2021 8:42 AM Pelvis X-Ray 08/22/21 08:04 XR pelvis 1-2V routine CLINICAL HISTORY: fall COMPARISON: Pelvis radiograph August 02, 2021. FINDINGS: Sacroiliac joints and symphysis pubis are intact. No acute fracture is identified within the pelvis or hips. Degenerative changes of both sacroiliac joints are incidentally noted. IMPRESSION: No acute fracture within the pelvis or hips. ACT 112: Negative or not required by law. Electronically signed by: Armand Roland M.D. 08/22/2021 8:19 AM Blood Pressure Blood Pressure Findings: Elevated blood pressure Blood Pressure Disposition: further management by hospitalist Discharge Plan Visit Data Chief Complaint: Fall Stated Complaint: Fall ED Provider: Kathy Campbell Discharge Problem: CHI (closed head injury), Schizoaffective disorder, Fall, Unable to care for self Patient Disposition: Admitted As Inpatient Discharge Instructions Interventions: ED Discharge Assessment Last Done: 08/22/21 11:30 Discharge Problem: CHI (closed head injury) Qualifiers: Encounter type: initial encounter Qualified Code(s): S09.90XA - Unspecified injury of head, initial encounter Schizoaffective disorder Qualifiers: Schizoaffective disorder type: unspecified Qualified Code(s): F25.9 - Schizoaffective disorder, unspecified Fall Qualifiers: Encounter type: initial encounter Qualified Code(s): W19.XXXA - Unspecified fall, initial encounter
--- NOTE | 2021-08-22 08:20 | XRay Report ---
XR pelvis 1-2V routine CLINICAL HISTORY: fall COMPARISON: Pelvis radiograph August 02, 2021. FINDINGS: Sacroiliac joints and symphysis pubis are intact. No acute fracture is identified within t he pelvis or hips. Degenerative changes of both sacroiliac joints are incidentally noted. IMPRESSION: No acute fracture within the pelvis or hips. ACT 112: Negative or not required by law. Electronically signed by: Armand Roland M.D. 08/22/2021 8:19 AM
[2021-08-22 08:41] LABS: Appearance Urine Clear (Clear); Bacteria Urine Automated Negative (Negative); Bilirubin Urine Negative (Negative); Blood Urine Negative (Negative); Cast Urine Automated 0 /lpf (0-5); Color Urine Yellow; Glucose Urine UA Negative (Negative); Ketones Urine Negative (Negative); Leukocyte Esterase Urine Trace (Negative); Nitrite Urine Negative (Negative); RBC Urine Automated 0-4 /hpf (0-4); Specific Gravity Urine 1.004 (1.000-1.030); Urobilinogen Urine Negative (Negative); pH Urine 7.5 (4.5-7.5)
--- NOTE | 2021-08-22 08:44 | CT Scan Report ---
CT OF THE HEAD WITHOUT CONTRAST CLINICAL HISTORY: fall last night, recurrent COMPARISON STUDY: Head CT 08/07/2021. CT DOSE: 614.27 mGy.cm TECHNIQUE: Helical axial images of the head were obtained without IV contrast. Automated exposure con trol was utilized for the study. A dose lowering technique was utilized adhering to the principles o f ALARA. FINDINGS: No acute intracranial hemorrhage, midline shift or mass effect is present. The ventricular system is unremarkable. The basal cisterns are patent. No extra-axial collections are present. There are no findings to suggest acute dural sinus thrombosis or acute territorial infarct. No significant calvarial abnormalities are present. Visualized portions of the sinuses and mastoid air cells are ed ar. IMPRESSION: 1. No acute intracranial findings. 2. No acute calvarial fracture. ACT 112: Negative or not required by law. Electronically signed by: Armand Roland M.D. 08/22/2021 8:42 AM
[2021-08-22 08:47] LABS: Protein Urine Trace (Negative)
--- NOTE | 2021-08-22 09:14 | XRay Report ---
XR chest 1V portable CLINICAL HISTORY: weakness COMPARISON STUDY: Chest radiograph August 09, 2021. FINDINGS: Lung volumes are normal. Lungs are clear. There is no pneumothorax or pleural effusion. Car diac size is stable. Mediastinal contours are normal. There is no evidence for pulmonary edema. IMPRESSION: No acute cardiopulmonary findings. ACT 112: Negative or not required by law. Electronically signed by: Armand Roland M.D. 08/22/2021 9:12 AM
--- NOTE | 2021-08-22 09:18 | History & Physical Report ---
Date of Service August 22, 2021 Assessment & Plan (1) Multiple falls: Plan: With numerous falls and ER visits as well as recent hospitalization and placement in acute rehab. She was just discharged from rehab and only was at home for few days before having another fall. She is on multiple psychiatric medications that can cause orthostasis. She is also generally deconditioned although apparently was well enough to go home from rehab just a few days ago. Her significant other and the patient do not think that she can be adequately taking care of at home She has no significant injuries, no fractures on x-ray. No evidence of infection anywhere, vitals are stable except hypertensive because she did not take her blood pressure pills today. -Bring into medical/surgical unit -Consult PT/OT -Tylenol as needed for pain control -Very well could be orthostatic-check orthostatics every shift -Decrease prazosin to 1 mg at bedtime to see if this helps with orthostasis -I do not think I can adjust any of her other psychiatric medications as she reports she will become unstable without the at the current doses -She is willing to go to rehab and personal-jail likely long-term after that -Case management consult placed (2) Right hip pain: Plan: No fracture Tylenol as needed for pain PT/OT (3) Anemia: Plan: Hemoglobin here is stable from previous at 9.3, MCV elevated 99 Last admission her B12 level was checked and is noted to be low at 260-replaced with B12 1000 mcg IM daily x3 doses, then convert to p.o. after that Last admission her transferrin saturation was low at 13%-give IV Venofer in the morning Folate normal (4) Asthma: Plan: Stable With history of 3 packs a day of smoking but quit smoking 13 years ago With COPD No acute issues, oxygen levels here are normal Continue home Singulair (5) Benign essential hypertension: Plan: Blood pressure is elevated here because she has not taken her medications today Give losartan 25 mg daily, amlodipine 10 mg daily, first dose is now Reducing prazosin from home from 2 down to 1 mg at bedtime (6) Bipolar I disorder, single manic episode: Plan: Stable Continue home psychiatric medications Follows with psychiatry (7) COPD, mild: Plan: As above (8) Deafness: Plan: Board for communication (9) Diabetes mellitus type 2, controlled: Plan: Continue Januvia Last hemoglobin A1c was 5.8% in 01/2021 NovoLog sliding scale ordered here but does not need insulin on discharge-she was inquiring about this Check hemoglobin A1c in the morning (10) Chronic diastolic CHF (congestive heart failure): Plan: Not volume overloaded Continue blood pressure control (11) Gastroesophageal reflux disease: Plan: No acute issues Continue PPI (12) Stage III chronic kidney disease: Plan: Creatinine at baseline at 1.6 -Avoid nephrotoxins -renally dose meds when appropriate (13) Vitamin D deficiency: Plan: Continue cholecalciferol Plan: DVT proph-SCDs Dispo-admit to med/surg, needs rehab placement, PT/OT evals ordered History of Present Illness Chief Complaint: Fall Primary Care Provider: Santos Galeano III, RENETTA This patient is a 71-year-old female with a history of schizoaffective disorder, bipolar disorder, frequent falls, asthma/COPD, GERD, hyperlipidemia, CKD stage III, HTN, DM 2, lower back pain, chronic diastolic CHF, anemia, and deafness who presents to the ER with complaint of a fall. Her significant other found her on the ground and he thinks she was trying to walk to the bathroom. She was sleeping at that point. She continues to complain of right-sided hip pain which she has had for quite some time as I admitted her the last admission for nume charly falls. She was discharged on 08/11 to acute rehab where she spent a little over a week. She recently came home from rehab a few days ago and was getting home health services. She complains of chronic abdominal pain, mild nausea, wants to know if she has a UTI but has no urinary symptoms, and obsesses a bit at times over multiple somatic complaints. In the ER, she had a CT head noncontrast and a pelvic x-ray which were negative for acute issues. Chest x-ray was negative. Otherwise she has chronic stable anemia, and UA was negative, COVID-19 was negative, lithium level was normal, elevated creatinine 1.6 which is her baseline, and a mildly elevated AST at 60. Vitals were stable except for some mild hypertension. She admits that it would be better for her to be in a personal jail. She will be admitted for PT evaluation and possible rehab placement followed by placement in long-term personal jail. Allergies Allergy/AdvReac Type Severity Reaction Status Date / Time latex Allergy Severe UNKNOWN Verified 08/22/21 07:19 aspirin Allergy Unknown UNKNOWN Verified 08/22/21 07:19 REACTION clozapine Allergy Unknown TOXIC Verified 08/22/21 07:19 REACTION codeine Allergy Unknown UNKNOWN Verified 08/22/21 07:19 REACTION ibuprofen Allergy Unknown UNKNOWN Verified 08/22/21 07:19 REACTION lurasidone Allergy Unknown TOXIC Verified 08/22/21 07:19 REACTION Penicillins Allergy Unknown UNKNOWN Verified 08/22/21 07:19 REACTION Sulfa (Sulfonamide Allergy Unknown UNKNOWN Verified 08/22/21 07:19 Antibiotics) REACTION Home Medications Medication Instructions Recorded Confirmed Type multivitamin (Multiple Vitamins) 1 tab PO QAM #0 11/17/17 08/22/21 History lamotrigine 100 mg tablet 100 mg PO BID #0 12/30/17 08/22/21 History (Lamictal) lamotrigine 25 mg tablet (Lamictal) 25 mg PO BID #0 12/30/17 08/22/21 History olanzapine 10 mg tablet (Zyprexa) 10 mg PO HS #0 12/30/17 08/22/21 History prazosin 1 mg capsule 2 mg PO HS #60 cap 05/08/18 08/22/21 Rx blood sugar diagnostic (OneTouch #100 ea 08/25/20 08/07/21 Rx Ultra Blue Test Strip) blood-glucose meter (OneTouch #1 ea 08/25/20 08/07/21 Rx Ultra2 Meter) cholecalciferol (vitamin D3) 25 25 mcg PO QAM 08/26/20 08/22/21 History mcg (1,000 unit) tablet (Vitamin D3) atorvastatin 10 mg tablet 10 mg PO HS #90 tab 03/09/21 08/22/21 Rx blood sugar diagnostic #400 ea 03/09/21 08/07/21 Rx blood-glucose meter (OneTouch #1 ea 03/09/21 08/07/21 Rx Ultra2 Meter) losartan 25 mg tablet 25 mg PO QAM #90 tab 03/09/21 08/22/21 Rx montelukast 10 mg tablet 10 mg PO QAM #90 tab 03/09/21 08/22/21 Rx omeprazole 20 mg capsule,delayed 20 mg PO QAM #90 cap 03/09/21 08/22/21 Rx release lancets 30 gauge (OneTouch Delica #100 ea 03/18/21 08/07/21 Rx Plus Lancet) amlodipine 10 mg tablet 10 mg PO QAM #90 tab 06/29/21 08/22/21 Rx lithium carbonate 300 mg 300 mg PO HS 08/02/21 08/22/21 History tablet,extended release lorazepam 2 mg tablet 2 mg PO HS 08/02/21 08/22/21 History olanzapine 20 mg tablet 20 mg PO HS 08/02/21 08/22/21 History diaper,brief,adult,disposable #120 ea 08/07/21 08/07/21 Rx (Select Briefs) sitagliptin 25 mg tablet (Januvia) 25 mg PO QAM 08/07/21 08/22/21 History cariprazine 1.5 mg capsule 1.5 mg PO QAM 08/09/21 08/22/21 History (Trisha) Past Med/Surg History Medical History Anxiety Asthma no inh Bilateral edema of lower extremity Bipolar disorder Chronic diastolic CHF (congestive heart failure) per record; fiance could not confirm. does not follow with nurse advisor CKD (chronic kidney disease) used to follow with [facility]. per fiance, no longer follows with Deafness Depression GERD (gastroesophageal reflux disease) Hyperlipemia Hyperparathyroidism Osteoarthritis Osteoporosis Poor historian fiance provided PMH Schizoaffective disorder Spondylolisthesis Type II diabetes mellitus NIDDM Surgical History History of cataract surgery History of tooth extraction History of tubal ligation Status post breast lumpectomy Family History Father Myocardial infarction Brother Rheumatoid arthritis Other Cancer Diabetes Heart disease Hypertension Lung disease Denies family history of Colon cancer Ovarian cancer Prostate cancer Breast cancer Social History Smoking Status: Former smoker Tobacco Type: Cigarettes Smoking End Date: 13 years quit; Second Hand Exposure: No; Hx Alcohol Use: Yes Hx Substance Use: No Preferred Language: Uzbek Communication Ability: Effective Visual Impairment: Partially Limited Hearing Ability: Electrical Instrumentation Technician Required: No Beliefs That Will Affect Care: None marital status: Single Current Living Situation: Spouse current occupational status: disabled Other Information That Helps Us Care for You: No Feels Safe at Home: Yes Safety Concerns: Feels Safe At This Time Childhood Exposure to Second-Hand Smoke: No Dental Care, Regularly: No Physical Activity Frequency: 5-6 Times per Week Seatbelt Use: always Sunscreen Use: No Assistive Devices: Glasses and Walker Review of Systems Review of Systems: All systems reviewed & are unremarkable except as noted in HPI & below Physical Exam Constitutional: + thin; no acute distress Eyes: + anicteric sclerae and EOM intact bilaterally ENMT: external ear and nose normal, oropharynx normal Ears: + hearing impairment Neck: trachea midline, no thyromegaly Respiratory: normal respiratory effort, lungs clear to auscultation Cardiovascular: RRR, no murmur, no edema Chest (Breasts): Chest: normal inspection of chest Gastrointestinal (Abdomen): normal bowel sounds, soft, nontender, no hepatosplenomegaly Musculoskeletal: Extremities: extremities normal to inspection; no cyanosis and no clubbing Skin: no rashes, warm and dry Neurologic: moves all extremities and awake; no focal motor deficits Psychiatric: A+Ox3, euthymic affect Lymphatic: no lymphedema Results & Data Results & Data ([facility]) Vital Signs (Past 12 Hours) Vital Signs Temp Pulse Resp BP Pulse Ox 08/22/21 07:20 73 21 97 08/22/21 07:10 81 24 96 08/22/21 07:00 75 21 125/82 91 08/22/21 06:50 83 17 94 08/22/21 06:48 81 13 141/78 H 96 08/22/21 06:40 74 6 L 93 08/22/21 06:30 74 19 94 08/22/21 06:20 83 14 93 08/22/21 06:10 75 14 99 08/22/21 06:00 77 21 99 08/22/21 05:50 72 17 96 08/22/21 05:40 81 22 95 08/22/21 05:32 83 16 95 08/22/21 05:13 36.8 C 82 18 150/76 H 92 Laboratory Results 08/22/21 08/22/21 08/22/21 Range/Units 17:12 12:32 09:30 WBC (4.8-10.8) K/uL RBC (4.2-5.4) M/uL Hgb (12.0-16.0) g/dL Hct (37-47) % MCV (80-100) fL MCH (25-34) pg MCHC (32-36) g/dL RDW Std Deviation (36.4-46.3) fL RDW Coeff of Rachel (11.5-14.5) % Plt Count (130-400) K/uL MPV (7.4-10.4) fL Immature Gran % (Auto) % Neut % (Auto) % Lymph % (Auto) % [place] % (Auto) % Eos % (Auto) % Baso % (Auto) % Neut # (Auto) (1.4-6.5) K/uL Lymph # (Auto) (1.2-3.4) K/uL [place] # (Auto) (0.11-0.59) K/uL Eos # (Auto) (0-0.5) K/uL Baso # (Auto) (0-0.2) K/uL Immature Gran # (Auto) (0.00-0.02) K/uL Sodium (136-145) mmol/L Potassium (3.5-5.1) mmol/L Chloride (98-107) mmol/L Carbon Dioxide (21-32) mmol/L Anion Gap (3-11) BUN (6-23) mg/dl Creatinine (0.6-1.2) mg/dl Est Cr Clr Drug Dosing ml/min Est GFR ( Amer) ml/min Est GFR (Non-Af Amer) ml/min BUN/Creatinine Ratio (10-20) Glucose (70-99(Fasting)) mg/dl POC Glucose 120 H 88 (70-99) mg/dl Calcium (8.5-10.1) mg/dl Magnesium (1.7-2.4) mg/dl Total Bilirubin (0.2-1.0) mg/dl AST (13-39) U/L ALT (7-52) U/L Alkaline Phosphatase (34-104) U/L Total Creatine Kinase (26-192) U/L Total Protein (6.0-8.3) gm/dl Albumin (3.4-5.0) gm/dl Globulin (2.5-4.0) gm/dl Albumin/Globulin Ratio (0.9-2) TSH (0.300-4.500) uIu/ml Urine Color Urine Appearance (Clear) Urine pH (4.5-7.5) Ur Specific [place] (1.000-1.030) Urine Protein (Negative) Urine Glucose (UA) (Negative) Urine Ketones (Negative) Urine Blood (Negative) Urine Nitrite (Negative) Urine Bilirubin (Negative) Urine Urobilinogen (Negative) Ur Leukocyte Esterase (Negative) Urine WBC (Auto) (0-5) /hpf Urine RBC (Auto) (0-4) /hpf U Hyaline Cast (Auto) (0-5) /lpf U Epithel Cells (Auto) (0-5) /lpf Urine Bacteria (Auto) (Negative) [place] (0.6-1.2) mmol/L SARS-CoV-2, RNA, NAAT NEGATIVE (NEGATIVE) 08/22/21 08/22/21 08/22/21 Range/Units 08:00 07:41 05:12 WBC (4.8-10.8) K/uL RBC (4.2-5.4) M/uL Hgb (12.0-16.0) g/dL Hct (37-47) % MCV (80-100) fL MCH (25-34) pg MCHC (32-36) g/dL RDW Std Deviation (36.4-46.3) fL RDW Coeff of Rachel (11.5-14.5) % Plt Count (130-400) K/uL MPV (7.4-10.4) fL Immature Gran % (Auto) % Neut % (Auto) % Lymph % (Auto) % [place] % (Auto) % Eos % (Auto) % Baso % (Auto) % Neut # (Auto) (1.4-6.5) K/uL Lymph # (Auto) (1.2-3.4) K/uL [place] # (Auto) (0.11-0.59) K/uL Eos # (Auto) (0-0.5) K/uL Baso # (Auto) (0-0.2) K/uL Immature Gran # (Auto) (0.00-0.02) K/uL Sodium (136-145) mmol/L Potassium (3.5-5.1) mmol/L Chloride (98-107) mmol/L Carbon Dioxide (21-32) mmol/L Anion Gap (3-11) BUN (6-23) mg/dl Creatinine (0.6-1.2) mg/dl Est Cr Clr Drug Dosing ml/min Est GFR ( Amer) ml/min Est GFR (Non-Af Amer) ml/min BUN/Creatinine Ratio (10-20) Glucose (70-99(Fasting)) mg/dl POC Glucose (70-99) mg/dl Calcium (8.5-10.1) mg/dl Magnesium (1.7-2.4) mg/dl Total Bilirubin (0.2-1.0) mg/dl AST (13-39) U/L ALT (7-52) U/L Alkaline Phosphatase (34-104) U/L Total Creatine Kinase (26-192) U/L Total Protein (6.0-8.3) gm/dl Albumin (3.4-5.0) gm/dl Globulin (2.5-4.0) gm/dl Albumin/Globulin Ratio (0.9-2) TSH 1.689 (0.300-4.500) uIu/ml Urine Color Yellow Urine Appearance Clear (Clear) Urine pH 7.5 (4.5-7.5) Ur Specific [place] 1.004 (1.000-1.030) Urine Protein Trace H (Negative) Urine Glucose (UA) Negative (Negative) Urine Ketones Negative (Negative) Urine Blood Negative (Negative) Urine Nitrite Negative (Negative) Urine Bilirubin Negative (Negative) Urine Urobilinogen Negative (Negative) Ur Leukocyte Esterase Trace H (Negative) Urine WBC (Auto) 1-5 (0-5) /hpf Urine RBC (Auto) 0-4 (0-4) /hpf U Hyaline Cast (Auto) 0 (0-5) /lpf U Epithel Cells (Auto) 5-10 H (0-5) /lpf Urine Bacteria (Auto) Negative (Negative) [place] 0.6 (0.6-1.2) mmol/L SARS-CoV-2, RNA, NAAT (NEGATIVE) 08/22/21 08/22/21 Range/Units 05:12 05:12 WBC 4.28 L (4.8-10.8) K/uL RBC 2.91 L (4.2-5.4) M/uL Hgb 9.3 L (12.0-16.0) g/dL Hct 28.9 L (37-47) % MCV 99.3 (80-100) fL MCH 32.0 (25-34) pg MCHC 32.2 (32-36) g/dL RDW Std Deviation 51.5 H (36.4-46.3) fL RDW Coeff of Rachel 14.4 (11.5-14.5) % Plt Count 330 (130-400) K/uL MPV 10.1 (7.4-10.4) fL Immature Gran % (Auto) 0.2 % Neut % (Auto) 72.5 % Lymph % (Auto) 18.5 % [place] % (Auto) 8.6 % Eos % (Auto) 0.2 % Baso % (Auto) 0.0 % Neut # (Auto) 3.10 (1.4-6.5) K/uL Lymph # (Auto) 0.79 L (1.2-3.4) K/uL [place] # (Auto) 0.37 (0.11-0.59) K/uL Eos # (Auto) 0.01 (0-0.5) K/uL Baso # (Auto) 0.00 (0-0.2) K/uL Immature Gran # (Auto) 0.01 (0.00-0.02) K/uL Sodium 140 (136-145) mmol/L Potassium 3.8 (3.5-5.1) mmol/L Chloride 108 H (98-107) mmol/L Carbon Dioxide 27 (21-32) mmol/L Anion Gap 5 (3-11) BUN 28 H (6-23) mg/dl Creatinine 1.62 H (0.6-1.2) mg/dl Est Cr Clr Drug Dosing 25.9 ml/min Est GFR ( Amer) 37.2 ml/min Est GFR (Non-Af Amer) 32.1 ml/min BUN/Creatinine Ratio 17.3 (10-20) Glucose 92 (70-99(Fasting)) mg/dl POC Glucose (70-99) mg/dl Calcium 9.5 (8.5-10.1) mg/dl Magnesium 2.3 (1.7-2.4) mg/dl Total Bilirubin 0.3 (0.2-1.0) mg/dl AST 35 (13-39) U/L ALT 60 H (7-52) U/L Alkaline Phosphatase 71 (34-104) U/L Total Creatine Kinase 58 (26-192) U/L Total Protein 6.4 (6.0-8.3) gm/dl Albumin 3.8 (3.4-5.0) gm/dl Globulin 2.6 (2.5-4.0) gm/dl Albumin/Globulin Ratio 1.5 (0.9-2) TSH (0.300-4.500) uIu/ml Urine Color Urine Appearance (Clear) Urine pH (4.5-7.5) Ur Specific [place] (1.000-1.030) Urine Protein (Negative) Urine Glucose (UA) (Negative) Urine Ketones (Negative) Urine Blood (Negative) Urine Nitrite (Negative) Urine Bilirubin (Negative) Urine Urobilinogen (Negative) Ur Leukocyte Esterase (Negative) Urine WBC (Auto) (0-5) /hpf Urine RBC (Auto) (0-4) /hpf U Hyaline Cast (Auto) (0-5) /lpf U Epithel Cells (Auto) (0-5) /lpf Urine Bacteria (Auto) (Negative) [place] (0.6-1.2) mmol/L SARS-CoV-2, RNA, NAAT (NEGATIVE) Diagnostic Findings Chest X-Ray 08/22/21 06:46 XR chest 1V portable CLINICAL HISTORY: weakness COMPARISON STUDY: Chest radiograph August 09, 2021. FINDINGS: Lung volumes are normal. Lungs are clear. There is no pneumothorax or pleural effusion. Cardiac size is stable. Mediastinal contours are normal. There is no evidence for pulmonary edema. IMPRESSION: No acute cardiopulmonary findings. ACT 112: Negative or not required by law. Electronically signed by: Armand Roland M.D. 08/22/2021 9:[address] 08/22/21 06:46 CT OF THE HEAD WITHOUT CONTRAST CLINICAL HISTORY: fall last night, recurrent COMPARISON STUDY: Head CT 08/07/2021. CT DOSE: 614.27 mGy.cm TECHNIQUE: Helical axial images of the head were obtained without IV contrast. Automated exposure control was utilized for the study. A dose lowering technique was utilized adhering to the principles of ALARA. FINDINGS: No acute intracranial hemorrhage, midline shift or mass effect is present. The ventricular system is unremarkable. The basal cisterns are patent. No extra-axial collections are present. There are no findings to suggest acute dural sinus thrombosis or acute territorial infarct. No significant calvarial abnormalities are present. Visualized portions of the sinuses and mastoid air cells are clear. IMPRESSION: 1. No acute intracranial findings. 2. No acute calvarial fracture. ACT 112: Negative or not required by law. Electronically signed by: Armand Roland M.D. 08/22/2021 8:42 AM Pelvis X-Ray 08/22/21 08:04 XR pelvis 1-2V routine CLINICAL HISTORY: fall COMPARISON: Pelvis radiograph August 02, 2021. FINDINGS: Sacroiliac joints and symphysis pubis are intact. No acute fracture is identified within the pelvis or hips. Degenerative changes of both sacroiliac joints are incidentally noted. IMPRESSION: No acute fracture within the pelvis or hips. ACT 112: Negative or not required by law. Electronically signed by: Armand Roland M.D. 08/22/2021 8:19 AM ECG Additional Comments: ECG on 08/22/2021 at 5:31 AM with normal sinus rhythm, rate 79, otherwise normal, T wave inversions no longer evident in anterior leads from previous Code Status & VTE Plan Code Status Full code VTE Prophylaxis Plan VTE Prophylaxis will be ordered: Yes PG Care Time/CCT Total # of Minutes Spent Total Time Spent with Patient: Total time spent is greater than 50% in coordination of care (as documented) at patient's floor/unit and/or counseling patient: Coding Level of Care Code 57369 Initial Inpt Care Lvl 2 Diagnoses Anemia D64.9 Asthma J45.909 Benign essential hypertension I10 Bipolar I disorder, single manic episode F30.9 COPD, mild J44.9 Deafness H91.90 Diabetes mellitus type 2, controlled E11.22; N18.30 Diabetes mellitus oysterman insulin use: without oysterman use Diabetes mellitus complication status: with kidney complications Diabetes mellitus complication detail: with chronic kidney disease Chronic kidney disease stage: stage 3 (moderate) Chronic diastolic CHF (congestive heart failure) I50.32 Gastroesophageal reflux disease K21.9 Esophagitis presence: without esophagitis Multiple falls R29.6 Stage III chronic kidney disease N18.32 Chronic kidney disease stage 3 subtype: stage 3b (GFR 30-44) Vitamin D deficiency E55.9 Right hip pain M25.551 (1) Diabetes mellitus type 2, controlled Diabetes mellitus group home insulin use: without group home use Diabetes mellitus complication status: with kidney complications Diabetes mellitus complication detail: with chronic kidney disease Chronic kidney disease stage: stage 3 (moderate) Qualified Code(s): E11.22 - Type 2 diabetes mellitus with diabetic chronic kidney disease; N18.30 - Chronic kidney disease, stage 3 unspecified (2) Gastroesophageal reflux disease Esophagitis presence: without esophagitis Qualified Code(s): K21.9 - Gastro- esophageal reflux disease without esophagitis (3) Stage III chronic kidney disease Chronic kidney disease stage 3 subtype: stage 3b (GFR 30-44) Qualified Code(s): N18.32 - Chronic kidney disease, stage 3b
--- NOTE | 2021-08-22 11:47 | Electrocardiogram Report ---
Test Reason : Blood Pressure : / mmHG Vent. Rate : 079 BPM Atrial Rate : 079 BPM P-R Int : 158 ms QRS Dur : 114 ms QT Int : 410 ms P-R-T Axes : 064 052 078 degrees QTc Int : 470 ms Normal sinus rhythm Normal ECG When compared with ECG of 09-AUG-2021 15:17, T wave inversion no longer evident in Anterior leads Confirmed by Luis F Vieyra ([id number]) on 08/22/2021 11:47:23 AM Referred By: Confirmed By:Luis F Vieyra
[2021-08-22] MEDS ORDERED: POLYETHYLENE (MIRALAX) 17 GM PACK PO PRN (12:12)
[2021-08-22] MEDS ORDERED: CARBOHYDRATES FOR HYPOGLYCEMIA PO PRN (12:12)
[2021-08-22] MEDS ORDERED: GLUCOSE 40% GEL 15 GM TUBE PO PRN (12:12)
[2021-08-22] MEDS ORDERED: GLUCOSE 10 TABS/TUBE PO PRN (12:12)
[2021-08-22] MEDS ORDERED: DEXTROSE 50% 50 ML SYRINGE IV PRN (12:12)
[2021-08-22] MEDS ORDERED: GLUCAGON FOR INJ 1 MG VIAL SQ PRN (12:12)
[2021-08-22] MEDS: lamoTRIgine 25 MG TAB PO SCH ×2 (13:06→20:45)
[2021-08-22] MEDS: PANTOprazole 40 MG TAB PO SCH (13:06)
[2021-08-22] MEDS: MULTIVITAMIN TAB PO SCH (13:06)
[2021-08-22] MEDS: lamoTRIgine 100 MG TAB PO SCH ×2 (13:06→20:46)
[2021-08-22] MEDS: MONTELUKAST SODIUM 10 MG TABLET PO SCH (13:06)
[2021-08-22] MEDS: LOSARTAN POTASSIUM 25 MG TAB PO SCH (13:06)
[2021-08-22] MEDS: CHOLECALCIFEROL 1,000 UNITS 25 MCG TAB PO SCH (13:06)
[2021-08-22] MEDS: INSULIN ASPART PER UNIT SC SCH ×3 (13:29→21:53)
[2021-08-22] MEDS: CYANOCOBALAMIN 1000 MCG/ML VIAL IM SCH (20:44)
[2021-08-22] MEDS: OLANZapine 10 MG TAB PO SCH (20:45)
[2021-08-22] MEDS: LORazepam 1 MG TAB PO SCH (20:45)
[2021-08-22] MEDS: LITHIUM CARBONATE SLOW REL 300 MG TAB PO SCH (20:46)
[2021-08-22] MEDS: OLANZapine 20 MG TABLET PO SCH (20:46)
[2021-08-22] MEDS: ATORVASTATIN 10 MG TAB PO SCH (20:46)
[2021-08-22] MEDS: ACETAMINOPHEN 325 MG TAB PO PRN (20:54)
[2021-08-22] MEDS ORDERED: PRAZOSIN HCL 1 MG CAP PO SCH ×2 (21:00)
[2021-08-23] MEDS: INSULIN ASPART PER UNIT SC SCH ×4 (08:46→21:32)
[2021-08-23] MEDS: amLODIPine BESYLATE 5 MG TAB PO SCH (08:47)
[2021-08-23] MEDS: CYANOCOBALAMIN 1000 MCG/ML VIAL IM SCH (08:48)
[2021-08-23] MEDS: lamoTRIgine 100 MG TAB PO SCH ×2 (08:48→21:04)
[2021-08-23] MEDS: PANTOprazole 40 MG TAB PO SCH (08:48)
[2021-08-23] MEDS: MULTIVITAMIN TAB PO SCH (08:48)
[2021-08-23] MEDS: lamoTRIgine 25 MG TAB PO SCH ×2 (08:48→21:05)
[2021-08-23] MEDS: CHOLECALCIFEROL 1,000 UNITS 25 MCG TAB PO SCH (08:48)
[2021-08-23] MEDS: SITagliptin PHOSPHATE 25 MG TAB PO SCH (08:49)
[2021-08-23] MEDS: MONTELUKAST SODIUM 10 MG TABLET PO SCH (08:49)
[2021-08-23] MEDS: LOSARTAN POTASSIUM 25 MG TAB PO SCH (08:49)
--- NOTE | 2021-08-23 13:04 | Hospitalist Progress Note ---
Date of Service August 23, 2021 Assessment & Plan (1) Multiple falls: Plan: With numerous falls and ER visits as well as recent hospitalization and placement in acute rehab. She was just discharged from rehab and only was at home for few days before having another fall. She is on multiple psychiatric medications that can cause orthostasis. She is also generally deconditioned although apparently was well enough to go home from rehab just a few days ago. Her significant other and the patient do not think that she can be adequately taking care of at home She has no significant injuries, no fractures on x-ray. No evidence of infection anywhere, vitals are stable except hypertensive because she did not take her blood pressure pills today. Orthostatic vital signs here are negative, however she could very well have orthostasis at home at times She also has B12 deficiency and could have neuropathy contributing to her falls -Consult PT/OT-recommends SNF and 22/11 care -Tylenol as needed for pain control, add on Voltaren gel to the right hip -Discontinue prazosin as this can cause orthostasis and she feels that she does not need it anyway-was prescribed for nightmares -I do not think I can adjust any of her other psychiatric medications as she reports she will become unstable without the at the current doses -She is willing to go to rehab and personal-[facility] likely long-term after that -Case management consult placed for rehab referrals (2) Right hip pain: Plan: No fracture Tylenol as needed for pain, add on Voltaren gel PT/OT (3) Anemia: Plan: Hemoglobin here is stable from previous at 9.3, MCV elevated 99 Last admission her B12 level was checked and is noted to be low at 260-replace with B12 1000 mcg IM daily x3 doses, then convert to p.o. after that Last admission her transferrin saturation was low at 13%-give IV Venofer x1 today Folate normal (4) Asthma: Plan: Stable With history of 3 packs a day of smoking but quit smoking 13 years ago With COPD No acute issues, oxygen levels here are normal Continue home Singulair She requests an albuterol nebulizer-ordered x1 She also requests an albuterol inhaler to have as needed-ordered (5) Benign essential hypertension: Plan: Blood pressure is controlled Continue losartan 25 mg daily, amlodipine 10 mg daily Discontinuing prazosin as above (6) Bipolar I disorder, single manic episode: Plan: Stable Continue home psychiatric medications Follows with psychiatry (7) COPD, mild: Plan: As above (8) Deafness: Plan: White board for communication (9) Diabetes mellitus type 2, controlled: Plan: Continue Januvia Last hemoglobin A1c was 5.8% in 01/2021 NovoLog sliding scale ordered here but does not need insulin on discharge-she was inquiring about the need for insulin at home Check hemoglobin [id number] (10) Chronic diastolic CHF (congestive heart failure): Plan: Not volume overloaded Continue blood pressure control (11) Gastroesophageal reflux disease: Plan: No acute issues Continue PPI (12) Stage III chronic kidney disease: Plan: Creatinine at baseline at 1.6 -Avoid nephrotoxins -renally dose meds when appropriate (13) Vitamin D deficiency: Plan: Continue cholecalciferol Plan: DVT proph-SCDs Dispo-continued stay on med/surg, needs rehab placement, medically stable for discharge Admission and Anticipated Discharge Date Admission Date: August 22, 2021 Subjective Patient was in very good spirits today. We communicated as usual with the white board and marker. She is quite pleased about my decision to reduce her dose of prazosin as a possible cause of her falls and dizziness. She is agreeable and wants me to completely stop it as she feels that she does not need it and she does not have nightmares at this time which is why it was prescribed. She says that she does have pain in her back but it improves if she sits up straight. She has been eating well today. She was singing when I came in. No complaints from nursing staff. She does have a one-to-one with her for safety. She does ask for the Voltaren gel that I had mentioned to her yesterday but had forgotten to order. She also requests a nebulizer treatment for ongoing shortness of breath yet she is in no distress and her pulse ox is normal-I told her I would order it but I reassured her that I think she will be okay. Review of Systems Review of Systems: All systems reviewed & are unremarkable except as noted in HPI & below Physical Exam Constitutional: + thin; no acute distress Eyes: + anicteric sclerae and EOM intact bilaterally ENMT: Ears: + hearing impairment Neck: trachea midline, no thyromegaly Respiratory: normal respiratory effort, lungs clear to auscultation Cardiovascular: RRR, no murmur, no edema Chest (Breasts): Chest: normal inspection of chest Gastrointestinal (Abdomen): normal bowel sounds, soft, nontender, no hepatosplenomegaly Musculoskeletal: Extremities: extremities normal to inspection; no cyanosis and no clubbing Skin: no rashes, warm and dry Neurologic: moves all extremities and awake; no focal motor deficits Psychiatric: A+Ox3, euthymic affect Lymphatic: no lymphedema Results & Data Results & Data ([facility]) Vital Signs (Past 12 Hours) Vital Signs Temp Pulse Resp BP Pulse Ox 08/23/21 07:20 36.8 C 78 18 137/70 97 PG Care Time/CCT Total # of Minutes Spent Total Time Spent with Patient: Total time spent is greater than 50% in coordination of care (as documented) at patient's floor/unit and/or counseling patient: Coding Level of Care Code 98772 Subseq Hosp Care Lvl 2 Diagnoses Multiple falls R29.6 Right hip pain M25.551 Anemia D64.9 Asthma J45.909 Benign essential hypertension I10 Bipolar I disorder, single manic episode F30.9 COPD, mild J44.9 Deafness H91.90 Diabetes mellitus type 2, controlled E11.22; N18.30 Chronic kidney disease stage: stage 3 (moderate) Diabetes mellitus complication detail: with chronic kidney disease Diabetes mellitus complication status: with kidney complications Diabetes mellitus puncher insulin use: without puncher use Chronic diastolic CHF (congestive heart failure) I50.32 Gastroesophageal reflux disease K21.9 Esophagitis presence: without esophagitis Stage III chronic kidney disease N18.32 Chronic kidney disease stage 3 subtype: stage 3b (GFR 30-44) Vitamin D deficiency E55.9 (1) Stage III chronic kidney disease Chronic kidney disease stage 3 subtype: stage 3b (GFR 30-44) Qualified Code(s ): N18.32 - Chronic kidney disease, stage 3b (2) Diabetes mellitus type 2, controlled Chronic kidney disease stage: stage 3 (moderate) Diabetes mellitus complication detail: with chronic kidney disease Diabetes mellitus complication status: with kidney complications Diabetes mellitus detention insulin use: without puncher use Qualified Code(s): E11.22 - Type 2 diabetes mellitus with diabetic chronic kidney disease; N18.30 - Chronic kidney disease, stage 3 unspecified (3) Gastroesophageal reflux disease Esophagitis presence: without esophagitis Qualified Code(s): K21.9 - Gastro- esophageal reflux disease without esophagitis
[2021-08-23] MEDS ORDERED: ALBUTEROL 0.083% NEBU SOLN 3 ML VIAL NEB STA (13:12)
[2021-08-23] MEDS: CARIPRAZINE HCL 1.5 MG PO SCH (16:04)
[2021-08-23] MEDS: DICLOFENAC SOD 1% GEL 100 GM TUBE EXT SCH ×3 (16:05→21:04)
[2021-08-23] MEDS ORDERED: IRON SUCROSE 300 MG in SODIUM CHLORIDE 0.9% 250 ML IV ONE (19:30)
[2021-08-23] MEDS: ACETAMINOPHEN 325 MG TAB PO PRN (21:03)
[2021-08-23] MEDS: LORazepam 1 MG TAB PO SCH (21:03)
[2021-08-23] MEDS: LITHIUM CARBONATE SLOW REL 300 MG TAB PO SCH (21:04)
[2021-08-23] MEDS: OLANZapine 20 MG TABLET PO SCH (21:05)
[2021-08-23] MEDS: ATORVASTATIN 10 MG TAB PO SCH (21:05)
[2021-08-23] MEDS: OLANZapine 10 MG TAB PO SCH (21:05)
[2021-08-24 07:46] LABS: Estimated Average Glucose 94 mg/dl; Hemoglobin A1C 4.9 % (4.5-5.6)
[2021-08-24] MEDS: INSULIN ASPART PER UNIT SC SCH ×4 (09:09→21:55)
[2021-08-24] MEDS: CARIPRAZINE HCL 1.5 MG PO SCH (09:11)
[2021-08-24] MEDS: PANTOprazole 40 MG TAB PO SCH (09:12)
[2021-08-24] MEDS: MONTELUKAST SODIUM 10 MG TABLET PO SCH (09:12)
[2021-08-24] MEDS: amLODIPine BESYLATE 5 MG TAB PO SCH (09:12)
[2021-08-24] MEDS: LOSARTAN POTASSIUM 25 MG TAB PO SCH (09:12)
[2021-08-24] MEDS: CYANOCOBALAMIN 1000 MCG/ML VIAL IM SCH (09:12)
[2021-08-24] MEDS: CHOLECALCIFEROL 1,000 UNITS 25 MCG TAB PO SCH (09:12)
[2021-08-24] MEDS: lamoTRIgine 25 MG TAB PO SCH ×2 (09:12→21:00)
[2021-08-24] MEDS: SITagliptin PHOSPHATE 25 MG TAB PO SCH (09:12)
[2021-08-24] MEDS: MULTIVITAMIN TAB PO SCH (09:13)
[2021-08-24] MEDS: DICLOFENAC SOD 1% GEL 100 GM TUBE EXT SCH ×4 (10:14→21:01)
[2021-08-24] MEDS: lamoTRIgine 100 MG TAB PO SCH ×2 (10:14→21:00)
--- NOTE | 2021-08-24 18:51 | Hospitalist Progress Note ---
Date of Service August 24, 2021 Assessment & Plan (1) Multiple falls: Plan: With numerous falls and ER visits as well as recent hospitalization and placement in acute rehab. She was just discharged from rehab and only was at home for few days before having another fall. She is on multiple psychiatric medications that can cause orthostasis. She is also generally deconditioned although apparently was well enough to go home from rehab just a few days ago. Her significant other and the patient do not think that she can be adequately taking care of at home She has no significant injuries, no fractures on x-ray. No evidence of infection anywhere, vitals are stable except hypertensive because she did not take her blood pressure pills today. Orthostatic vital signs here are negative, however she could very well have orthostasis at home at times She also has B12 deficiency and could have neuropathy contributing to her falls -Consult PT/OT-recommends SNF and 22/11 care -Tylenol as needed for pain control, add on Voltaren gel to the right hip -Discontinue prazosin as this can cause orthostasis and she feels that she does not need it anyway-was prescribed for nightmares -I do not think I can adjust any of her other psychiatric medications as she reports she will become unstable without the at the current doses -She is willing to go to rehab and personal-long-term likely long-term after that -I am under the impression that the patient benefits from long-term care facility placement I really doubt if the patient benefits from going to rehab again, which she has some hip arthritis however it did not to underlying psychiatric issues and lack of poor social support she is not a candidate for surgical intervention (2) Right hip pain: Plan: No fracture Tylenol as needed for pain, add on Voltaren gel PT/OT (3) Anemia: Plan: Hemoglobin here is stable from previous at 9.3, MCV elevated 99 Last admission her B12 level was checked and is noted to be low at 260-replace with B12 1000 mcg IM daily x3 doses, then convert to p.o. after that Last admission her transferrin saturation was low at 13%-give IV Venofer x1 today Folate normal (4) Asthma: Plan: Stable With history of 3 packs a day of smoking but quit smoking 13 years ago With COPD No acute issues, oxygen levels here are normal Continue home Singulair She requests an albuterol nebulizer-ordered x1 She also requests an albuterol inhaler to have as needed-ordered (5) Benign essential hypertension: Plan: Blood pressure is controlled Continue losartan 25 mg daily, amlodipine 10 mg daily Discontinuing prazosin as above (6) Bipolar I disorder, single manic episode: Plan: Stable Continue home psychiatric medications Follows with psychiatry (7) COPD, mild: Plan: As above (8) Deafness: Plan: White board for communication (9) Diabetes mellitus type 2, controlled: Plan: Continue Januvia Last hemoglobin A1c was 5.8% in 01/2021 NovoLog sliding scale ordered here but does not need insulin on discharge-she was inquiring about the need for insulin at home Check hemoglobin [id number] (10) Chronic diastolic CHF (congestive heart failure): Plan: Not volume overloaded Continue blood pressure control (11) Gastroesophageal reflux disease: Plan: No acute issues Continue PPI (12) Stage III chronic kidney disease: Plan: Creatinine at baseline at 1.6 -Avoid nephrotoxins -renally dose meds when appropriate (13) Vitamin D deficiency: Plan: Continue cholecalciferol Plan: DVT proph-SCDs Dispo-continued stay on med/surg, needs rehab placement, medically stable for discharge Admission and Anticipated Discharge Date Admission Date: August 22, 2021 Subjective Patient complaining of right hip pain Physical Exam Constitutional: + thin; no acute distress Eyes: + anicteric sclerae and EOM intact bilaterally ENMT: external ear and nose normal, oropharynx normal Ears: + hearing impairment Neck: trachea midline, no thyromegaly Respiratory: normal respiratory effort, lungs clear to auscultation Cardiovascular: RRR, no murmur, no edema Chest (Breasts): Chest: normal inspection of chest Gastrointestinal (Abdomen): normal bowel sounds, soft, nontender, no hepatosplenomegaly Musculoskeletal: Extremities: extremities normal to inspection; no cyanosis and no clubbing Skin: no rashes, warm and dry Neurologic: moves all extremities and awake; no focal motor deficits Psychiatric: A+Ox3, euthymic affect Lymphatic: no lymphedema Results & Data Results & Data ([facility]) Vital Signs (Past 12 Hours) Vital Signs Temp Pulse Resp BP Pulse Ox 08/24/21 15:21 37 C 81 16 135/63 94 08/24/21 06:53 36.4 C L 71 16 126/64 93 PG Care Time/CCT Total # of Minutes Spent Total Time Spent with Patient: Total time spent is greater than 50% in coordination of care (as documented) at patient's floor/unit and/or counseling patient: Coding Level of Care Code 53166 Subseq Hosp Care Lvl 2 Diagnoses Multiple falls R29.6 Right hip pain M25.551 Anemia D64.9 Asthma J45.909 Benign essential hypertension I10 Bipolar I disorder, single manic episode F30.9 COPD, mild J44.9 Deafness H91.90 Diabetes mellitus type 2, controlled E11.22; N18.30 Diabetes mellitus jail insulin use: without intermediate frame tender use Diabetes mellitus complication status: with kidney complications Diabetes mellitus complication detail: with chronic kidney disease Chronic kidney disease stage: stage 3 (moderate) Chronic diastolic CHF (congestive heart failure) I50.32 Gastroesophageal reflux disease K21.9 Esophagitis presence: without esophagitis Stage III chronic kidney disease N18.32 Chronic kidney disease stage 3 subtype: stage 3b (GFR 30-44) Vitamin D deficiency E55.9 (1) Diabetes mellitus type 2, controlled Diabetes mellitus intermediate frame tender insulin use: without jail use Diabetes mellitus complication status: with kidney complications Diabetes mellitus complication detail: with chronic kidney disease Chronic kidney disease stage: stage 3 (moderate) Qualified Code(s): E11.22 - Type 2 diabetes mellitus with diabetic chronic kidney disease; N18.30 - Chronic kidney disease, stage 3 unspecified (2) Gastroesophageal reflux disease Esophagitis presence: without esophagitis Qualified Code(s): K21.9 - Gastro- esophageal reflux disease without esophagitis (3) Stage III chronic kidney disease Chronic kidney disease stage 3 subtype: stage 3b (GFR 30-44) Qualified Code(s): N18.32 - Chronic kidney disease, stage 3b
[2021-08-24] MEDS: LORazepam 1 MG TAB PO SCH (20:58)
[2021-08-24] MEDS: ACETAMINOPHEN 325 MG TAB PO PRN (20:58)
[2021-08-24] MEDS: OLANZapine 20 MG TABLET PO SCH (20:59)
[2021-08-24] MEDS: LITHIUM CARBONATE SLOW REL 300 MG TAB PO SCH (20:59)
[2021-08-24] MEDS: OLANZapine 10 MG TAB PO SCH (20:59)
[2021-08-24] MEDS: ATORVASTATIN 10 MG TAB PO SCH (21:00)
[2021-08-25] MEDS: INSULIN ASPART PER UNIT SC SCH ×5 (08:22→20:35)
[2021-08-25] MEDS: CARIPRAZINE HCL 1.5 MG PO SCH (08:58)
[2021-08-25] MEDS: MULTIVITAMIN TAB PO SCH (08:58)
[2021-08-25] MEDS: lamoTRIgine 100 MG TAB PO SCH ×2 (08:58→20:21)
[2021-08-25] MEDS: lamoTRIgine 25 MG TAB PO SCH ×2 (08:58→20:21)
[2021-08-25] MEDS: MONTELUKAST SODIUM 10 MG TABLET PO SCH (08:58)
[2021-08-25] MEDS: DICLOFENAC SOD 1% GEL 100 GM TUBE EXT SCH ×4 (08:59→20:22)
[2021-08-25] MEDS: PANTOprazole 40 MG TAB PO SCH (08:59)
[2021-08-25] MEDS: CHOLECALCIFEROL 1,000 UNITS 25 MCG TAB PO SCH (08:59)
[2021-08-25] MEDS: SITagliptin PHOSPHATE 25 MG TAB PO SCH (08:59)
[2021-08-25] MEDS: LOSARTAN POTASSIUM 25 MG TAB PO SCH (08:59)
[2021-08-25] MEDS: amLODIPine BESYLATE 5 MG TAB PO SCH (08:59)
[2021-08-25] MEDS: ONDANSETRON INJ 2 MG/ML 2 ML VIAL IV PRN ×2 (10:45→19:21)
--- NOTE | 2021-08-25 19:19 | Hospitalist Progress Note ---
Date of Service August 25, 2021 Assessment & Plan (1) Multiple falls: Plan: With numerous falls and ER visits as well as recent hospitalization and placement in acute rehab. She was just discharged from rehab and only was at home for few days before having another fall. She is on multiple psychiatric medications that can cause orthostasis. She is also generally deconditioned although apparently was well enough to go home from rehab just a few days ago. Her significant other and the patient do not think that she can be adequately taking care of at home She has no significant injuries, no fractures on x-ray. No evidence of infection anywhere, vitals are stable except hypertensive because she did not take her blood pressure pills today. Orthostatic vital signs here are negative, however she could very well have orthostasis at home at times She also has B12 deficiency and could have neuropathy contributing to her falls -Consult PT/OT-recommends SNF and 22/11 care -Tylenol as needed for pain control, add on Voltaren gel to the right hip -Discontinue prazosin as this can cause orthostasis and she feels that she does not need it anyway-was prescribed for nightmares -I do not think I can adjust any of her other psychiatric medications as she reports she will become unstable without the at the current doses -She is willing to go to rehab and personal-long-term likely long-term after that -I am under the impression that the patient benefits from long-term care facility placement I really doubt if the patient benefits from going to rehab again, which she has some hip arthritis however it due to underlying psychiatric issues and poor social support she is not a candidate for surgical intervention (2) Right hip pain: Plan: No fracture Tylenol as needed for pain, add on Voltaren gel PT/OT (3) Anemia: Plan: Hemoglobin here is stable from previous at 9.3, MCV elevated 99 Last admission her B12 level was checked and is noted to be low at 260-replace with B12 1000 mcg IM daily x3 doses, then convert to p.o. after that Last admission her transferrin saturation was low at 13%-give IV Venofer x1 today Folate normal (4) Asthma: Plan: Stable With history of 3 packs a day of smoking but quit smoking 13 years ago With COPD No acute issues, oxygen levels here are normal Continue home Singulair She requests an albuterol nebulizer-ordered x1 She also requests an albuterol inhaler to have as needed-ordered (5) Benign essential hypertension: Plan: Blood pressure is controlled Continue losartan 25 mg daily, amlodipine 10 mg daily Discontinuing prazosin as above (6) Bipolar I disorder, single manic episode: Plan: Stable Continue home psychiatric medications Follows with psychiatry (7) COPD, mild: Plan: As above (8) Deafness: Plan: White board for communication (9) Diabetes mellitus type 2, controlled: Plan: Continue Januvia Last hemoglobin A1c was 5.8% in 01/2021 NovoLog sliding scale ordered here but does not need insulin on discharge-she was inquiring about the need for insulin at home Check hemoglobin [id number] (10) Chronic diastolic CHF (congestive heart failure): Plan: Not volume overloaded Continue blood pressure control (11) Gastroesophageal reflux disease: Plan: No acute issues Continue PPI (12) Stage III chronic kidney disease: Plan: Creatinine at baseline at 1.6 -Avoid nephrotoxins -renally dose meds when appropriate (13) Vitamin D deficiency: Plan: Continue cholecalciferol Plan: DVT proph-SCDs Dispo-continued stay on med/surg, needs rehab placement, medically stable for discharge Admission and Anticipated Discharge Date Admission Date: August 22, 2021 Subjective Patient complaining of right hip pain Physical Exam Constitutional: + thin; no acute distress Eyes: + anicteric sclerae and EOM intact bilaterally ENMT: external ear and nose normal, oropharynx normal Ears: + hearing impairment Neck: trachea midline, no thyromegaly Respiratory: normal respiratory effort, lungs clear to auscultation Cardiovascular: RRR, no murmur, no edema Chest (Breasts): Chest: normal inspection of chest Gastrointestinal (Abdomen): normal bowel sounds, soft, nontender, no hepatosplenomegaly Musculoskeletal: Extremities: extremities normal to inspection; no cyanosis and no clubbing Skin: no rashes, warm and dry Neurologic: moves all extremities and awake; no focal motor deficits Psychiatric: A+Ox3, euthymic affect Lymphatic: no lymphedema Results & Data Results & Data ([facility]) Vital Signs (Past 12 Hours) Vital Signs Temp Pulse Resp BP Pulse Ox 08/25/21 15:28 37.1 C 89 18 123/65 98 PG Care Time/CCT Total # of Minutes Spent Total Time Spent with Patient: Total time spent is greater than 50% in coordination of care (as documented) at patient's floor/unit and/or counseling patient: Coding Level of Care Code 17025 Subseq Hosp Care Lvl 2 Diagnoses Multiple falls R29.6 Right hip pain M25.551 Anemia D64.9 Asthma J45.909 Benign essential hypertension I10 Bipolar I disorder, single manic episode F30.9 COPD, mild J44.9 Deafness H91.90 Diabetes mellitus type 2, controlled E11.22; N18.30 Diabetes mellitus assisted insulin use: without assisted use Diabetes mellitus complication status: with kidney complications Diabetes mellitus complication detail: with chronic kidney disease Chronic kidney disease stage: stage 3 (moderate) Chronic diastolic CHF (congestive heart failure) I50.32 Gastroesophageal reflux disease K21.9 Esophagitis presence: without esophagitis Stage III chronic kidney disease N18.32 Chronic kidney disease stage 3 subtype: stage 3b (GFR 30-44) Vitamin D deficiency E55.9 (1) Diabetes mellitus type 2, controlled Diabetes mellitus assisted insulin use: without assisted use Diabetes mellitus complication status: with kidney complications Diabetes mellitus complication detail: with chronic kidney disease Chronic kidney disease stage: stage 3 (moderate) Qualified Code(s): E11.22 - Type 2 diabetes mellitus with diabetic chronic kidney disease; N18.30 - Chronic kidney disease, stage 3 unspecified (2) Gastroesophageal reflux disease Esophagitis presence: without esophagitis Qualified Code(s): K21.9 - Gastro- esophageal reflux disease without esophagitis (3) Stage III chronic kidney disease Chronic kidney disease stage 3 subtype: stage 3b (GFR 30-44) Qualified Code(s): N18.32 - Chronic kidney disease, stage 3b
[2021-08-25] MEDS: LORazepam 1 MG TAB PO SCH (20:19)
[2021-08-25] MEDS: OLANZapine 20 MG TABLET PO SCH (20:20)
[2021-08-25] MEDS: LITHIUM CARBONATE SLOW REL 300 MG TAB PO SCH (20:20)
[2021-08-25] MEDS: OLANZapine 10 MG TAB PO SCH (20:20)
[2021-08-25] MEDS: ATORVASTATIN 10 MG TAB PO SCH (20:21)
[2021-08-26] MEDS: INSULIN ASPART PER UNIT SC SCH ×4 (08:35→21:26)
[2021-08-26] MEDS: SITagliptin PHOSPHATE 25 MG TAB PO SCH (08:36)
[2021-08-26] MEDS: lamoTRIgine 100 MG TAB PO SCH ×2 (08:37→21:29)
[2021-08-26] MEDS: CARIPRAZINE HCL 1.5 MG PO SCH (08:37)
[2021-08-26] MEDS: lamoTRIgine 25 MG TAB PO SCH ×2 (08:38→21:30)
[2021-08-26] MEDS: PANTOprazole 40 MG TAB PO SCH (08:38)
[2021-08-26] MEDS: DICLOFENAC SOD 1% GEL 100 GM TUBE EXT SCH ×4 (08:38→21:31)
[2021-08-26] MEDS: LOSARTAN POTASSIUM 25 MG TAB PO SCH (08:38)
[2021-08-26] MEDS: MONTELUKAST SODIUM 10 MG TABLET PO SCH (08:38)
[2021-08-26] MEDS: amLODIPine BESYLATE 5 MG TAB PO SCH (08:39)
[2021-08-26] MEDS: MULTIVITAMIN TAB PO SCH (08:39)
[2021-08-26] MEDS: CHOLECALCIFEROL 1,000 UNITS 25 MCG TAB PO SCH (08:39)
[2021-08-26] MEDS: ACETAMINOPHEN 325 MG TAB PO PRN (08:42)
[2021-08-26] MEDS: ALBUTEROL HFA 8 GM INHALER INH PRN ×2 (08:56→17:15)
--- NOTE | 2021-08-26 09:40 | Psychiatric Consultation ---
Date of Consultation August 26, 2021 Impression / Recommendations Impression Ricardo is a 71 yo female with schizoaffective disorder, no current stefan and only minor baseline delusions. Follows with Dr. Hahn. Kerens level 0.6. (1) Schizoaffective disorder: (2) Fall: Encounter type: initial encounter Qualified Code(s): W19.XXXA - Unspecified fall, initial encounter The patient is psychiatrically stable for transfer to a halfway facility. There is no acute indication for inpatient psychiatric hospitalization as the patient is not suicidal or homicidal; there is no evidence of psychosis. Psychiatric follow-up care for this patient should include: medication management with Dr. Hahn (unless there is a consulting provider at her facility that is comfortable assuming care) and ongoing [facility] CM. Will confirm med list with [facility] as Zyprexa dose seems rather high and I do have concerns about hs Ativan dose given recent falls. I am unable to clarify with Surescripts. Will make any adjustments to align with her outpatient regimen CAL and certainly clarify prior to facility transfer. Psych History Identifying Data 71-year-old female with a history of schizoaffective disorder, bipolar disorder, frequent falls, asthma/COPD, GERD, hyperlipidemia, CKD stage III, HTN, DM 2, lower back pain, chronic diastolic CHF, anemia, and deafness. She is well known to me from consultation service and stays on 3S. Chief Complaint target process History of Present Illness Ricardo tells me that she is sad that Alex can't live with her any more but she understands her need for nursing care and "I can't live at [facility] forever." He brings her silk dorado and she enjoys what time she has. She denies manic symptoms (though typically has little insight), doesn't recognize me as "I was sick the last time I was there." She continues with longstanding delusion that she is , perhaps with twins but it is not distressing to her. She is communicating well with the white board (deafness). She has significant tremor as she tries to drink her coffee but adjusts accordingly. She denies hallucinations and paranoia. She denies depression. Current Psychiatric Diagnosis: schizoaffective disorder Outpatient Services: Zulay Hahn, Psych clinic Previous Psych Admissions: multiple including [facility], most recent 2018 and 2018, "like a year" at [facility] and then [facility] in [place] for extended stay. Do You Have Access To A Gun?: No Past Medication Trials: extensvie--may not be full list--Risperdal, Navane, Zoloft, Haldol, thorazine, l ithium, neurontin, remeron, depakote, trilafon, latuda, clozapine, Zyprexa, vraylar Allergies Allergy/AdvReac Type Severity Reaction Status Date / Time latex Allergy Severe UNKNOWN Verified 08/22/21 07:19 aspirin Allergy Unknown UNKNOWN Verified 08/22/21 07:19 REACTION clozapine Allergy Unknown TOXIC Verified 08/22/21 07:19 REACTION codeine Allergy Unknown UNKNOWN Verified 08/22/21 07:19 REACTION ibuprofen Allergy Unknown UNKNOWN Verified 08/22/21 07:19 REACTION lurasidone Allergy Unknown TOXIC Verified 08/22/21 07:19 REACTION Penicillins Allergy Unknown UNKNOWN Verified 08/22/21 07:19 REACTION Sulfa (Sulfonamide Allergy Unknown UNKNOWN Verified 08/22/21 07:19 Antibiotics) REACTION Home Medications Medication Instructions Recorded Confirmed Type multivitamin (Multiple Vitamins) 1 tab PO QAM #0 11/17/17 08/22/21 History lamotrigine 100 mg tablet 100 mg PO BID #0 12/30/17 08/22/21 History (Lamictal) lamotrigine 25 mg tablet (Lamictal) 25 mg PO BID #0 12/30/17 08/22/21 History olanzapine 10 mg tablet (Zyprexa) 10 mg PO HS #0 12/30/17 08/22/21 History prazosin 1 mg capsule 2 mg PO HS #60 cap 05/08/18 08/22/21 Rx blood sugar diagnostic (OneTouch #100 ea 08/25/20 08/07/21 Rx Ultra Blue Test Strip) blood-glucose meter (OneTouch #1 ea 08/25/20 08/07/21 Rx Ultra2 Meter) cholecalciferol (vitamin D3) 25 25 mcg PO QAM 08/26/20 08/22/21 History mcg (1,000 unit) tablet (Vitamin D3) atorvastatin 10 mg tablet 10 mg PO HS #90 tab 03/09/21 08/22/21 Rx blood sugar diagnostic #400 ea 03/09/21 08/07/21 Rx blood-glucose meter (OneTouch #1 ea 03/09/21 08/07/21 Rx Ultra2 Meter) losartan 25 mg tablet 25 mg PO QAM #90 tab 03/09/21 08/22/21 Rx montelukast 10 mg tablet 10 mg PO QAM #90 tab 03/09/21 08/22/21 Rx omeprazole 20 mg capsule,delayed 20 mg PO QAM #90 cap 03/09/21 08/22/21 Rx release lancets 30 gauge (OneTouch Delica #100 ea 03/18/21 08/07/21 Rx Plus Lancet) amlodipine 10 mg tablet 10 mg PO QAM #90 tab 06/29/21 08/22/21 Rx lithium carbonate 300 mg 300 mg PO HS 08/02/21 08/22/21 History tablet,extended release lorazepam 2 mg tablet 2 mg PO HS 08/02/21 08/22/21 History olanzapine 20 mg tablet 20 mg PO HS 08/02/21 08/22/21 History diaper,brief,adult,disposable #120 ea 08/07/21 08/07/21 Rx (Select Briefs) sitagliptin 25 mg tablet (Januvia) 25 mg PO QAM 08/07/21 08/22/21 History cariprazine 1.5 mg capsule 1.5 mg PO QAM 08/09/21 08/22/21 History (Vraylar) Personal History Beliefs That Will Affect Care: None Patient History Medical History (Updated 08/26/21 @ 09:47 by Viki Craig MD) Anxiety Asthma no inh Bilateral edema of lower extremity Bipolar disorder Chronic diastolic CHF (congestive heart failure) per record; allen could not confirm. does not follow with musculoskeletal physiotherapist CKD (chronic kidney disease) used to follow with [facility]. per fiphyllis, no longer follows with Deafness Depression GERD (gastroesophageal reflux disease) Hyperlipemia Hyperparathyroidism Osteoarthritis Osteoporosis Poor historian allen provided H Schizoaffective disorder Spondylolisthesis Type II diabetes mellitus NIDDM Surgical History History of cataract surgery History of tooth extraction History of tubal ligation Status post breast lumpectomy Family History Father Myocardial infarction Brother Rheumatoid arthritis Other Cancer Diabetes Heart disease Hypertension Lung disease Denies family history of Colon cancer Ovarian cancer Prostate cancer Breast cancer Social History Smoking Status: Former smoker Tobacco Type: Cigarettes Second Hand Exposure: No; Hx Alcohol Use: Yes Hx Substance Use: No Preferred Language: Mexican Visual Impairment: Partially Limited Hearing Ability: Commercial Plumber Required: No Beliefs That Will Affect Care: None marital status: Single Current Living Situation: Spouse current occupational status: disabled Feels Safe at Home: Yes Childhood Exposure to Second-Hand Smoke: No Dental Care, Regularly: No Physical Activity Frequency: 5-6 Times per Week Seatbelt Use: always Sunscreen Use: No Assistive Devices: Glasses and Walker Physical Exam Psychiatric: Orientation: alert Apperance: appropriately groomed Eye Contact: good eye contact Motor Behavior: + tremor Speech: normal rate/rhythm/volume of speech (with intonation issues due to hearing impairment) Affect: euthymic affect Mood: no depressed mood Thought Process: + concrete thought process Thought Content: reality based without delusions Suicidal Thoughts: denies suicidal thoughts Homicidal Thoughts: denies homicidal thoughts Hallucinations: no auditory hallucinations and no visual hallucinations Cognition: attention grossly intact and language grossly intact Estimated Intelligence: consistent with education level Insight: + limited insight Judgement: + limited judgement Vital Signs (Past 24 Hours): Last Vital Signs Temp 36.7 C 08/26/21 07:20 Pulse 78 08/26/21 08:56 Resp 20 08/26/21 08:56 BP 122/71 08/26/21 07:20 Pulse Ox 98 08/26/21 07:20 Review of Systems All systems reviewed & are unremarkable except as noted in HPI & below Results & Data (PSY) Laboratory Results 08/26/21 08/25/21 08/25/21 Range/Units 08:07 20:28 17:05 POC Glucose 89 168 H 178 H (70-99) mg/dl 08/25/21 Range/Units 12:03 POC Glucose 133 H (70-99) mg/dl Medications Administered Acetaminophen (Acetaminophen 325 Mg Tab) 650 mg PO Q4H PRN PRN Reason: pain/fever Stop: 09/21/21 12:11 Last Admin: 08/26/21 08:42 Dose: 650 mg Documented by: [id number] Admin: 08/24/21 20:58 Dose: 650 mg Documented by: [id number] Admin: 08/23/21 21:03 Dose: 650 mg Documented by: [id number] Admin: 08/22/21 20:54 Dose: 650 mg Documented by: [id number] Albuterol (Albuterol Hfa 8 Gm Inhaler) 2 puffs INH Q6R PRN PRN Reason: shortness of breath Stop: 09/22/21 13:05 Last Admin: 08/26/21 08:56 Dose: 2 puffs Documented by: [id number] Amlodipine Besylate (Amlodipine Besylate 5 Mg Tab) 10 mg PO QAM [facility] Stop: 09/22/21 08:59 Last Admin: 08/26/21 08:39 Dose: 10 mg Documented by: [id number] Admin: 08/25/21 08:59 Dose: 10 mg Documented by: [id number] Admin: 08/24/21 09:12 Dose: 10 mg Documented by: [id number] Admin: 08/23/21 08:47 Dose: 10 mg Documented by: [id number] Atorvastatin Calcium (Atorvastatin 10 Mg Tab) 10 mg PO HS [facility] Stop: 09/21/21 20:59 Last Admin: 08/25/21 20:21 Dose: 10 mg Documented by: [id number] Admin: 08/24/21 21:00 Dose: 10 mg Documented by: [id number] Admin: 08/23/21 21:05 Dose: 10 mg Documented by: [id number] Admin: 08/22/21 20:46 Dose: 10 mg Documented by: [id number] Cariprazine (Cariprazine Hcl 1.5 Mg Capsule - Pt Own Med) [facility] Stop: 09/22/21 15:59 Last Admin: 08/26/21 08:37 Dose: 1 ea Documented by: [id number] Admin: 08/25/21 08:58 Dose: 1 ea Documented by: [id number] Admin: 08/24/21 09:11 Dose: 1 ea Documented by: [id number] Admin: 08/23/21 16:04 Dose: 1 ea Documented by: [id number] Diclofenac Sodium (Diclofenac Sod 1% Gel 100 Gm Tube) 2 gm EXT QID GEORGE Stop: 09/22/21 13:29 Last Admin: 08/26/21 08:38 Dose: 2 gm Documented by: [id number] Admin: 08/25/21 20:22 Dose: 2 gm Documented by: [id number] Admin: 08/25/21 18:02 Dose: 2 gm Documented by: [id number] Admin: 08/25/21 13:00 Dose: 2 gm Documented by: [id number] Admin: 08/25/21 08:59 Dose: 2 gm Documented by: [id number] Admin: 08/24/21 21:01 Dose: 2 gm Documented by: [id number] Admin: 08/24/21 17:39 Dose: 2 gm Documented by: [id number] Admin: 08/24/21 12:41 Dose: 2 gm Documented by: [id number] Admin: 08/24/21 10:14 Dose: 2 gm Documented by: [id number] Admin: 08/23/21 21:04 Dose: 2 gm Documented by: [id number] Admin: 08/23/21 16:05 Dose: 2 gm Documented by: [id number] Admin: 08/23/21 16:05 Dose: Not Given Documented by: [id number] Insulin Aspart (Insulin Aspart Per Unit) 0 units SC ACHS GEORGE Stop: 09/21/21 12:11 Last Admin: 08/26/21 08:35 Dose: Not Given Documented by: [id number] Admin: 08/25/21 20:35 Dose: 1 units Documented by: [id number] Cosigned by: [id number] Admin: 08/25/21 18:01 Dose: 2 units Documented by: [id number] Cosigned by: [id number] Admin: 08/25/21 12:29 Dose: Not Given Documented by: [id number] Admin: 08/25/21 08:22 Dose: Not Given Documented by: [id number] Admin: 08/24/21 21:55 Dose: Not Given Documented by: [id number] Cosigned by: [id number] Admin: 08/24/21 17:38 Dose: Not Given Documented by: [id number] Admin: 08/24/21 12:40 Dose: Not Given Documented by: [id number] Admin: 08/24/21 09:09 Dose: Not Given Documented by: [id number] Admin: 08/23/21 21:32 Dose: Not Given Documented by: [id number] Cosigned by: [id number] Admin: 08/23/21 17:21 Dose: Not Given Documented by: [id number] Admin: 08/23/21 13:50 Dose: Not Given Documented by: [id number] Admin: 08/23/21 08:46 Dose: Not Given Documented by: [id number] Admin: 08/22/21 21:53 Dose: Not Given Documented by: [id number] Cosigned by: [id number] Admin: 08/22/21 17:21 Dose: Not Given Documented by: [id number] Admin: 08/22/21 13:29 Dose: Not Given Documented by: [id number] Lamotrigine (Lamotrigine 25 Mg Tab) 25 mg PO BID GEORGE Stop: 09/21/21 12:11 Last Admin: 08/26/21 08:38 Dose: 25 mg Documented by: [id number] Admin: 08/25/21 20:21 Dose: 25 mg Documented by: [id number] Admin: 08/25/21 08:58 Dose: 25 mg Documented by: [id number] Admin: 08/24/21 21:00 Dose: 25 mg Documented by: [id number] Admin: 08/24/21 09:12 Dose: 25 mg Documented by: [id number] Admin: 08/23/21 21:05 Dose: 25 mg Documented by: [id number] Admin: 08/23/21 08:48 Dose: 25 mg Documented by: [id number] Admin: 08/22/21 20:45 Dose: 25 mg Documented by: [id number] Admin: 08/22/21 13:06 Dose: 25 mg Documented by: [id number] Lamotrigine (Lamotrigine 100 Mg Tab) 100 mg PO BID GEORGE Stop: 09/21/21 12:11 Last Admin: 08/26/21 08:37 Dose: 100 mg Documented by: [id number] Admin: 08/25/21 20:21 Dose: 100 mg Documented by: [id number] Admin: 08/25/21 08:58 Dose: 100 mg Documented by: [id number] Admin: 08/24/21 21:00 Dose: 100 mg Documented by: [id number] Admin: 08/24/21 10:14 Dose: 100 mg Documented by: [id number] Admin: 08/23/21 21:04 Dose: 100 mg Documented by: [id number] Admin: 08/23/21 08:48 Dose: 100 mg Documented by: [id number] Admin: 08/22/21 20:46 Dose: 100 mg Documented by: [id number] Admin: 08/22/21 13:06 Dose: 100 mg Documented by: [id number] Kerens Carbonate (Kerens Carbonate Slow Rel 300 Mg Tab) 300 mg PO HS GEORGE Stop: 09/21/21 20:59 Last Admin: 08/25/21 20:20 Dose: 300 mg Documented by: [id number] Admin: 08/24/21 20:59 Dose: 300 mg Documented by: [id number] Admin: 08/23/21 21:04 Dose: 300 mg Documented by: [id number] Admin: 08/22/21 20:46 Dose: 300 mg Documented by: [id number] Lorazepam (Lorazepam 1 Mg Tab) 2 mg PO [facility] Stop: 09/21/21 20:59 Last Admin: 08/25/21 20:19 Dose: 2 mg Documented by: [id number] Admin: 08/24/21 20:58 Dose: 2 mg Documented by: [id number] Admin: 08/23/21 21:03 Dose: 2 mg Documented by: [id number] Admin: 08/22/21 20:45 Dose: 2 mg Documented by: [id number] Losartan Potassium (Losartan Potassium 25 Mg Tab) [facility] Stop: 09/21/21 12:11 Last Admin: 08/26/21 08:38 Dose: 25 mg Documented by: [id number] Admin: 08/25/21 08:59 Dose: 25 mg Documented by: [id number] Admin: 08/24/21 09:12 Dose: 25 mg Documented by: [id number] Admin: 08/23/21 08:49 Dose: 25 mg Documented by: [id number] Admin: 08/22/21 13:06 Dose: 25 mg Documented by: [id number] Montelukast Sodium (Montelukast Sodium 10 Mg Tablet) [facility] Stop: 09/21/21 12:11 Last Admin: 08/26/21 08:38 Dose: 10 mg Documented by: [id number] Admin: 08/25/21 08:58 Dose: 10 mg Documented by: [id number] Admin: 08/24/21 09:12 Dose: 10 mg Documented by: [id number] Admin: 08/23/21 08:49 Dose: 10 mg Documented by: [id number] Admin: 08/22/21 13:06 Dose: 10 mg Documented by: [id number] Multivitamins (Multivitamin Tab) [facility] tab [facility] Stop: 09/21/21 12:11 Last Admin: 08/26/21 08:39 Dose: 1 tab Documented by: [id number] Admin: 08/25/21 08:58 Dose: 1 tab Documented by: [id number] Admin: 08/24/21 09:13 Dose: 1 tab Documented by: [id number] Admin: 08/23/21 08:48 Dose: 1 tab Documented by: [id number] Admin: 08/22/21 13:06 Dose: 1 tab Documented by: [id number] Olanzapine (Olanzapine 20 Mg Tablet) 20 mg PO [facility] Stop: 09/21/21 20:59 Last Admin: 08/25/21 20:20 Dose: 20 mg Documented by: [id number] Admin: 08/24/21 20:59 Dose: 20 mg Documented by: [id number] Admin: 08/23/21 21:05 Dose: 20 mg Documented by: [id number] Admin: 08/22/21 20:46 Dose: 20 mg Documented by: [id number] Olanzapine (Olanzapine 10 Mg Tab) 10 mg PO [facility] Stop: 09/21/21 20:59 Last Admin: 08/25/21 20:20 Dose: 10 mg Documented by: [id number] Admin: 08/24/21 20:59 Dose: 10 mg Documented by: [id number] Admin: 08/23/21 21:05 Dose: 10 mg Documented by: [id number] Admin: 08/22/21 20:45 Dose: 10 mg Documented by: [id number] Ondansetron HCl (Ondansetron Inj 2 Mg/Ml 2 Ml Vial) 4 mg IV Q6H PRN PRN Reason: Nausea Stop: 09/21/21 12:11 Last Admin: 08/25/21 19:21 Dose: 4 mg Documented by: [id number] Admin: 08/25/21 10:45 Dose: 4 mg Documented by: [id number] Pantoprazole Sodium (Pantoprazole 40 Mg Tab) 40 mg PO [facility] Stop: 09/21/21 12:11 Last Admin: 08/26/21 08:38 Dose: 40 mg Documented by: [id number] Admin: 08/25/21 08:59 Dose: 40 mg Documented by: [id number] Admin: 08/24/21 09:12 Dose: 40 mg Documented by: [id number] Admin: 08/23/21 08:48 Dose: 40 mg Documented by: [id number] Admin: 08/22/21 13:06 Dose: 40 mg Documented by: [id number] Sitagliptin Phosphate (Sitagliptin Phosphate 25 Mg Tab) [facility] Stop: 09/22/21 08:59 Last Admin: 08/26/21 08:36 Dose: 25 mg Documented by: [id number] Admin: 08/25/21 08:59 Dose: 25 mg Documented by: [id number] Admin: 08/24/21 09:12 Dose: 25 mg Documented by: [id number] Admin: 08/23/21 08:49 Dose: 25 mg Documented by: [id number] Vitamin D (Cholecalciferol 1,000 Units 25 Mcg Tab) 1,000 [facility] Stop: 09/21/21 12:59 Last Admin: 08/26/21 08:39 Dose: 1,000 units Documented by: [id number] Admin: 08/25/21 08:59 Dose: 1,000 units Documented by: [id number] Admin: 08/24/21 09:12 Dose: 1,000 units Documented by: [id number] Admin: 08/23/21 08:48 Dose: 1,000 units Documented by: [id number] Admin: 08/22/21 13:06 Dose: 1,000 units Documented by: [id number] Coding Level of Care Code 45905 [facility] Intl Hosp Care Lvl 2 Diagnoses Schizoaffective disorder F25.9 Fall W19.XXXA Encounter type: initial encounter
[2021-08-26] MEDS: ONDANSETRON INJ 2 MG/ML 2 ML VIAL IV PRN ×2 (13:44→19:52)
--- NOTE | 2021-08-26 16:19 | Hospitalist Progress Note ---
Date of Service August 26, 2021 Assessment & Plan (1) Multiple falls: Plan: With numerous falls and ER visits as well as recent hospitalization and placement in acute rehab. She was just discharged from rehab and only was at home for few days before having another fall. She is on multiple psychiatric medications that can cause orthostasis. She is also generally deconditioned although apparently was well enough to go home from rehab just a few days ago. Her significant other and the patient do not think that she can be adequately taking care of at home She has no significant injuries, no fractures on x-ray. No evidence of infection anywhere, vitals are stable except hypertensive because she did not take her blood pressure pills today. Orthostatic vital signs here are negative, however she could very well have orthostasis at home at times She also has B12 deficiency and could have neuropathy contributing to her falls -Consult PT/OT-recommends SNF and 22/11 care -Tylenol as needed for pain control, add on Voltaren gel to the right hip -Discontinue prazosin as this can cause orthostasis and she feels that she does not need it anyway-was prescribed for nightmares -I do not think I can adjust any of her other psychiatric medications as she reports she will become unstable without the at the current doses -She is willing to go to rehab and personal-fci likely long-term after that -I am under the impression that the patient benefits from long-term care facility placement I really doubt if the patient benefits from going to rehab again, which she has some hip arthritis however it due to underlying psychiatric issues and poor social support she is not a candidate for surgical intervention (2) Right hip pain: Plan: No fracture Tylenol as needed for pain, add on Voltaren gel PT/OT (3) Anemia: Plan: Hemoglobin here is stable from previous at 9.3, MCV elevated 99 Last admission her B12 level was checked and is noted to be low at 260-replace with B12 1000 mcg IM daily x3 doses, then convert to p.o. after that Last admission her transferrin saturation was low at 13%-give IV Venofer x1 today Folate normal (4) Asthma: Plan: Stable With history of 3 packs a day of smoking but quit smoking 13 years ago With COPD No acute issues, oxygen levels here are normal Continue home Singulair She requests an albuterol nebulizer-ordered x1 She also requests an albuterol inhaler to have as needed-ordered (5) Benign essential hypertension: Plan: Blood pressure is controlled Continue losartan 25 mg daily, amlodipine 10 mg daily Discontinuing prazosin as above (6) Bipolar I disorder, single manic episode: Plan: Stable Continue home psychiatric medications Follows with psychiatry (7) COPD, mild: Plan: As above (8) Deafness: Plan: White board for communication (9) Diabetes mellitus type 2, controlled: Plan: Continue Januvia Last hemoglobin A1c was 5.8% in 01/2021 NovoLog sliding scale ordered here but does not need insulin on discharge-she was inquiring about the need for insulin at home Check hemoglobin [id number] (10) Chronic diastolic CHF (congestive heart failure): Plan: Not volume overloaded Continue blood pressure control (11) Gastroesophageal reflux disease: Plan: No acute issues Continue PPI (12) Stage III chronic kidney disease: Plan: Creatinine at baseline at 1.6 -Avoid nephrotoxins -renally dose meds when appropriate (13) Vitamin D deficiency: Plan: Continue cholecalciferol Plan: DVT proph-SCDs Dispo-continued stay on med/surg, needs rehab placement, medically stable for discharge Admission and Anticipated Discharge Date Admission Date: August 22, 2021 Subjective No acute issue today Physical Exam Constitutional: + thin; no acute distress Eyes: + anicteric sclerae and EOM intact bilaterally ENMT: external ear and nose normal, oropharynx normal Ears: + hearing impairment Neck: trachea midline, no thyromegaly Respiratory: normal respiratory effort, lungs clear to auscultation Cardiovascular: RRR, no murmur, no edema Chest (Breasts): Chest: normal inspection of chest Gastrointestinal (Abdomen): normal bowel sounds, soft, nontender, no hepatosplenomegaly Musculoskeletal: Extremities: extremities normal to inspection; no cyanosis and no clubbing Skin: no rashes, warm and dry Neurologic: moves all extremities and awake; no focal motor deficits Psychiatric: A+Ox3, euthymic affect Lymphatic: no lymphedema Results & Data Results & Data ([facility]) Vital Signs (Past 12 Hours) Vital Signs Temp Pulse Resp BP BP Pulse Ox 08/26/21 14:03 36.6 C 85 16 106/59 L 96 08/26/21 08:56 78 20 08/26/21 07:20 36.7 C 74 18 122/71 98 PG Care Time/CCT Total # of Minutes Spent Total Time Spent with Patient: Total time spent is greater than 50% in coordination of care (as documented) at patient's floor/unit and/or counseling patient: Coding Level of Care Code 23290 Subseq Hosp Care Lvl 1 Diagnoses Multiple falls R29.6 Right hip pain M25.551 Anemia D64.9 Asthma J45.909 Benign essential hypertension I10 Bipolar I disorder, single manic episode F30.9 COPD, mild J44.9 Deafness H91.90 Diabetes mellitus type 2, controlled E11.22; N18.30 Diabetes mellitus intermediate insulin use: without laborer marine terminal use Diabetes mellitus complication status: with kidney complications Diabetes mellitus complication detail: with chronic kidney disease Chronic kidney disease stage: stage 3 (moderate) Chronic diastolic CHF (congestive heart failure) I50.32 Gastroesophageal reflux disease K21.9 Esophagitis presence: without esophagitis Stage III chronic kidney disease N18.32 Chronic kidney disease stage 3 subtype: stage 3b (GFR 30-44) Vitamin D deficiency E55.9 (1) Diabetes mellitus type 2, controlled Diabetes mellitus laborer marine terminal insulin use: without laborer marine terminal use Diabetes mellitus complication status: with kidney complications Diabetes mellitus complication detail: with chronic kidney disease Chronic kidney disease stage: stage 3 (moderate) Qualified Code(s): E11.22 - Type 2 diabetes mellitus with diabetic chronic kidney disease; N18.30 - Chronic kidney disease, stage 3 unspecified (2) Gastroesophageal reflux disease Esophagitis presence: without esophagitis Qualified Code(s): K21.9 - Gastro- esophageal reflux disease without esophagitis (3) Stage III chronic kidney disease Chronic kidney disease stage 3 subtype: stage 3b (GFR 30-44) Qualified Code(s): N18.32 - Chronic kidney disease, stage 3b
[2021-08-26] MEDS: OLANZapine 10 MG TAB PO SCH (21:28)
[2021-08-26] MEDS: ATORVASTATIN 10 MG TAB PO SCH (21:29)
[2021-08-26] MEDS: OLANZapine 20 MG TABLET PO SCH (21:30)
[2021-08-26] MEDS: LORazepam 1 MG TAB PO SCH (21:30)
[2021-08-26] MEDS: LITHIUM CARBONATE SLOW REL 300 MG TAB PO SCH (21:30)
[2021-08-27] MEDS: ACETAMINOPHEN 325 MG TAB PO PRN ×2 (00:05→04:25)
[2021-08-27] MEDS: ALBUTEROL HFA 8 GM INHALER INH PRN (04:45)
[2021-08-27] MEDS: ONDANSETRON INJ 2 MG/ML 2 ML VIAL IV PRN ×2 (06:16→14:29)
[2021-08-27] MEDS: lamoTRIgine 25 MG TAB PO SCH ×2 (08:46→20:03)
[2021-08-27] MEDS: PANTOprazole 40 MG TAB PO SCH (08:46)
[2021-08-27] MEDS: lamoTRIgine 100 MG TAB PO SCH ×2 (08:46→20:02)
[2021-08-27] MEDS: amLODIPine BESYLATE 5 MG TAB PO SCH (08:47)
[2021-08-27] MEDS: LOSARTAN POTASSIUM 25 MG TAB PO SCH (08:47)
[2021-08-27] MEDS: MULTIVITAMIN TAB PO SCH (08:47)
[2021-08-27] MEDS: MONTELUKAST SODIUM 10 MG TABLET PO SCH (08:48)
[2021-08-27] MEDS: SITagliptin PHOSPHATE 25 MG TAB PO SCH (08:48)
[2021-08-27] MEDS: CHOLECALCIFEROL 1,000 UNITS 25 MCG TAB PO SCH (08:48)
[2021-08-27] MEDS: DICLOFENAC SOD 1% GEL 100 GM TUBE EXT SCH ×4 (08:49→20:03)
[2021-08-27] MEDS: CARIPRAZINE HCL 1.5 MG PO SCH (08:55)
[2021-08-27] MEDS: INSULIN ASPART PER UNIT SC SCH ×2 (08:59→13:11)
--- NOTE | 2021-08-27 14:53 | Hospitalist Progress Note ---
Date of Service August 27, 2021 Assessment & Plan (1) Multiple falls: Plan: With numerous falls and ER visits as well as recent hospitalization and placement in acute rehab. She was just discharged from rehab and only was at home for few days before having another fall. She is on multiple psychiatric medications that can cause orthostasis. She is also generally deconditioned although apparently was well enough to go home from rehab just a few days ago. Her significant other and the patient do not think that she can be adequately taking care of at home She has no significant injuries, no fractures on x-ray. No evidence of infection anywhere, vitals are stable except hypertensive because she did not take her blood pressure pills today. Orthostatic vital signs here are negative, however she could very well have orthostasis at home at times She also has B12 deficiency and could have neuropathy contributing to her falls -Consult PT/OT-recommends SNF and 22/11 care -Tylenol as needed for pain control, add on Voltaren gel to the right hip -Discontinue prazosin as this can cause orthostasis and she feels that she does not need it anyway-was prescribed for nightmares -appreciate psychiatric consultation. plan to possibly reduce benzodiazepines at placement under supervision. Patient is psychiatrically stable for transfer to SNF. -She is willing to go to rehab and personal-[facility] likely long-term after that (2) Right hip pain: Plan: No fracture Tylenol as needed for pain, add on Voltaren gel PT/OT (3) Anemia: Plan: Hemoglobin here is stable from previous at 9.3, MCV elevated 99 Last admission her B12 level was checked and is noted to be low at 260-replace with B12 1000 mcg IM daily x3 doses, then convert to p.o. after that Last admission her transferrin saturation was low at 13%-give IV Venofer x1 Folate normal (4) Asthma: Plan: Stable With history of 3 packs a day of smoking but quit smoking 13 years ago With COPD No acute issues, oxygen levels here are normal Continue home Singulair (5) Benign essential hypertension: Plan: Blood pressure is controlled Continue losartan 25 mg daily, amlodipine 10 mg daily Discontinuing prazosin as above Prior orthostatics without significant drop in BP (6) Bipolar I disorder, single manic episode: Plan: Stable Continue home psychiatric medications Follows with psychiatry (7) COPD, mild: Plan: As above (8) Deafness: Plan: White board for communication (9) Diabetes mellitus type 2, controlled: Plan: HbA1C 4.9 - suggest over treatment however since sitagliptin no hypoglycemic episodes ill continue on this No need for regular glucose checks (10) Chronic diastolic CHF (congestive heart failure): Plan: Not volume overloaded Continue blood pressure control (11) Gastroesophageal reflux disease: Plan: No acute issues Continue PPI (12) Stage III chronic kidney disease: Plan: Creatinine at baseline at 1.6 -Avoid nephrotoxins -renally dose meds when appropriate (13) Vitamin D deficiency: Plan: Continue cholecalciferol Plan: DVT proph-SCDs Diet - T2DM Dispo-continued stay on med/surg, needs rehab placement, medically stable for discharge Admission and Anticipated Discharge Date Admission Date: August 22, 2021 Subjective Difficulty talking with patient as she is deaf and only able to communicate what I am saying through use of a white board. She has been having nausea but reports this has been going on for months. Good relief with ondansetron given earlier. Continues to have left back pain but reports no groin pain. Remains medically stable for discharge but going through the target process for discharge to snf. Prazosin stopped during inpatient stay and she reports no worsening sleep. Reports being put on this as she was screaming in pain at night but not actually having nightmares. Review of Systems Review of Systems: All systems reviewed & are unremarkable except as noted in Subjective Physical Exam Constitutional: well developed and well nourished; no acute distress Eyes: + anicteric sclerae; normal pupil size Respiratory: normal respiratory effort, lungs clear to auscultation Cardiovascular: Rate/Rhythm: regular rate and regular rhythm Heart Sounds: no murmur Extremities: normal capillary refill; no calf tenderness and no pedal edema Gastrointestinal (Abdomen): Inspection/Auscultation: normal bowel sounds Percussion/Palpation: abdomen soft; abdomen nontender, no guarding and abdomen not rigid Skin: no rashes, warm and dry Neurologic: moves all extremities and awake; not confused Psychiatric: A+Ox3, euthymic affect Results & Data Results & Data ([facility]) Vital Signs (Past 12 Hours) Vital Signs Temp Pulse Resp BP Pulse Ox 08/27/21 08:44 75 146/76 H 08/27/21 08:10 36.8 C 69 18 115/66 99 08/27/21 04:46 85 16 97 PG Care Time/CCT Total # of Minutes Spent Total Time Spent with Patient: Total time spent is greater than 50% in coordination of care (as documented) at patient's floor/unit and/or counseling patient: Coding Level of Care Code 36308 Subseq Hosp Care Lvl 1 Diagnoses Multiple falls R29.6 Right hip pain M25.551 Anemia D64.9 Asthma J45.909 Benign essential hypertension I10 Bipolar I disorder, single manic episode F30.9 COPD, mild J44.9 Deafness H91.90 Diabetes mellitus type 2, controlled E11.22; N18.30 Chronic kidney disease stage: stage 3 (moderate) Diabetes mellitus complication detail: with chronic kidney disease Diabetes mellitus complication status: with kidney complications Diabetes mellitus retirement insulin use: without retirement use Chronic diastolic CHF (congestive heart failure) I50.32 Gastroesophageal reflux disease K21.9 Esophagitis presence: without esophagitis Stage III chronic kidney disease N18.32 Chronic kidney disease stage 3 subtype: stage 3b (GFR 30-44) Vitamin D deficiency E55.9 (1) Stage III chronic kidney disease Chronic kidney disease stage 3 subtype: stage 3b (GFR 30-44) Qualified Code(s): N18.32 - Chronic kidney disease, stage 3b (2) Diabetes mellitus type 2, controlled Chronic kidney disease stage: stage 3 (moderate) Diabetes mellitus complication detail: with chronic kidney disease Diabetes mellitus complication status: with kidney complications Diabetes mellitus retirement insulin use: without retirement use Qualified Code(s): E11.22 - Type 2 diabetes mellitus with diabetic chronic kidney disease; N18.30 - Chronic kidney disease, stage 3 unspecified (3) Gastroesophageal reflux disease Esophagitis presence: without esophagitis Qualified Code(s): K21.9 - Gastro- esophageal reflux disease without esophagitis
[2021-08-27] MEDS: LORazepam 1 MG TAB PO SCH (20:01)
[2021-08-27] MEDS: OLANZapine 10 MG TAB PO SCH (20:02)
[2021-08-27] MEDS: ATORVASTATIN 10 MG TAB PO SCH (20:02)
[2021-08-27] MEDS: LITHIUM CARBONATE SLOW REL 300 MG TAB PO SCH (20:03)
[2021-08-27] MEDS: OLANZapine 20 MG TABLET PO SCH (20:03)
[2021-08-28] MEDS: amLODIPine BESYLATE 5 MG TAB PO SCH (08:22)
[2021-08-28] MEDS: CHOLECALCIFEROL 1,000 UNITS 25 MCG TAB PO SCH (08:22)
[2021-08-28] MEDS: CARIPRAZINE HCL 1.5 MG PO SCH (08:22)
[2021-08-28] MEDS: LOSARTAN POTASSIUM 25 MG TAB PO SCH (08:23)
[2021-08-28] MEDS: PANTOprazole 40 MG TAB PO SCH (08:23)
[2021-08-28] MEDS: MONTELUKAST SODIUM 10 MG TABLET PO SCH (08:23)
[2021-08-28] MEDS: lamoTRIgine 100 MG TAB PO SCH ×2 (08:23→20:16)
[2021-08-28] MEDS: DICLOFENAC SOD 1% GEL 100 GM TUBE EXT SCH ×4 (08:23→20:15)
[2021-08-28] MEDS: lamoTRIgine 25 MG TAB PO SCH ×2 (08:23→20:16)
[2021-08-28] MEDS: SITagliptin PHOSPHATE 25 MG TAB PO SCH (08:24)
[2021-08-28] MEDS: MULTIVITAMIN TAB PO SCH (08:24)
[2021-08-28] MEDS: ACETAMINOPHEN 325 MG TAB PO PRN (10:17)
[2021-08-28] MEDS ORDERED: ONDANSETRON INJ 2 MG/ML 2 ML VIAL IV PRN (18:18)
--- NOTE | 2021-08-28 19:04 | Hospitalist Progress Note ---
Date of Service August 28, 2021 Assessment & Plan (1) Multiple falls: Plan: With numerous falls and ER visits as well as recent hospitalization and placement in acute rehab. She was just discharged from rehab and only was at home for few days before having another fall. She is on multiple psychiatric medications that can cause orthostasis. She is also generally deconditioned although apparently was well enough to go home from rehab just a few days ago. Her significant other and the patient do not think that she can be adequately taking care of at home She has no significant injuries, no fractures on x-ray. No evidence of infection anywhere, vitals are stable except hypertensive because she did not take her blood pressure pills today. Orthostatic vital signs here are negative, however she could very well have orthostasis at home at times She also has B12 deficiency and could have neuropathy contributing to her falls -Consult PT/OT-recommends SNF and 22/11 care -Tylenol as needed for pain control, add on Voltaren gel to the right hip -Discontinue prazosin as this can cause orthostasis and she feels that she does not need it anyway-was prescribed for nightmares -appreciate psychiatric consultation. plan to possibly reduce benzodiazepines at placement under supervision. Patient is psychiatrically stable for transfer to SNF. -She is willing to go to rehab and personal-[facility] likely long-term after that - awaiting insurance authorization (2) Right hip pain: Plan: No fracture Tylenol as needed for pain, add on Voltaren gel PT/OT (3) Anemia: Plan: Hemoglobin here is stable from previous at 9.3, MCV elevated 99 Last admission her B12 level was checked and is noted to be low at 260-replace with B12 1000 mcg IM daily x3 doses, then convert to p.o. after that Last admission her transferrin saturation was low at 13%-give IV Venofer x1 Folate normal (4) Asthma: Plan: Stable With history of 3 packs a day of smoking but quit smoking 13 years ago With COPD No acute issues, oxygen levels here are normal Continue home Singulair (5) Benign essential hypertension: Plan: Blood pressure is controlled Continue losartan 25 mg daily, amlodipine 10 mg daily Discontinuing prazosin as above Prior orthostatics without significant drop in BP (6) Bipolar I disorder, single manic episode: Plan: Stable Continue home psychiatric medications Follows with psychiatry (7) COPD, mild: Plan: As above (8) Deafness: Plan: White board for communication (9) Diabetes mellitus type 2, controlled: Plan: HbA1C 4.9 - suggest over treatment however since sitagliptin no hypoglycemic episodes ill continue on this No need for regular glucose checks (10) Chronic diastolic CHF (congestive heart failure): Plan: Not volume overloaded Continue blood pressure control (11) Gastroesophageal reflux disease: Plan: No acute issues Continue PPI (12) Stage III chronic kidney disease: Plan: Creatinine at baseline at 1.6 -Avoid nephrotoxins -renally dose meds when appropriate (13) Vitamin D deficiency: Plan: Continue cholecalciferol Plan: DVT proph-SCDs Diet - T2DM Dispo-continued stay on med/surg, needs rehab placement, medically stable for discharge Admission and Anticipated Discharge Date Admission Date: August 22, 2021 Subjective No acute concerns or questions. Medically stable for discharge. Physical Exam Constitutional: well developed and well nourished; no acute distress Eyes: + anicteric sclerae; normal pupil size Respiratory: normal respiratory effort, lungs clear to auscultation Cardiovascular: Rate/Rhythm: regular rate and regular rhythm Heart Sounds: no murmur Extremities: normal capillary refill; no calf tenderness and no pedal edema Skin: no rashes, warm and dry Neurologic: moves all extremities and awake; not confused Psychiatric: A+Ox3, euthymic affect Results & Data Results & Data ([facility]) Vital Signs (Past 12 Hours) Vital Signs Temp Pulse Resp BP Pulse Ox 08/28/21 16:00 36.8 C 79 20 116/59 L 97 08/28/21 07:46 36.4 C L 73 20 147/72 H 100 PG Care Time/CCT Total # of Minutes Spent Total Time Spent with Patient: Total time spent is greater than 50% in coordination of care (as documented) at patient's floor/unit and/or counseling patient: Coding Level of Care Code 07464 Subseq Hosp Care Lvl 1 Diagnoses Multiple falls R29.6 Right hip pain M25.551 Anemia D64.9 Asthma J45.909 Benign essential hypertension I10 Bipolar I disorder, single manic episode F30.9 COPD, mild J44.9 Deafness H91.90 Diabetes mellitus type 2, controlled E11.22; N18.30 Chronic kidney disease stage: stage 3 (moderate) Diabetes mellitus complication detail: with chronic kidney disease Diabetes mellitus complication status: with kidney complications Diabetes mellitus chcf insulin use: without quality assurance specialist use Chronic diastolic CHF (congestive heart failure) I50.32 Gastroesophageal reflux disease K21.9 Esophagitis presence: without esophagitis Stage III chronic kidney disease N18.32 Chronic kidney disease stage 3 subtype: stage 3b (GFR 30-44) Vitamin D deficiency E55.9 (1) Stage III chronic kidney disease Chronic kidney disease stage 3 subtype: stage 3b (GFR 30-44) Qualified Code(s): N18.32 - Chronic kidney disease, stage 3b (2) Diabetes mellitus type 2, controlled Chronic kidney disease stage: stage 3 (moderate) Diabetes mellitus complicat ion detail: with chronic kidney disease Diabetes mellitus complication status: with kidney complications Diabetes mellitus chcf insulin use: without quality assurance specialist use Qualified Code(s): E11.22 - Type 2 diabetes mellitus with diabetic chronic kidney disease; N18.30 - Chronic kidney disease, stage 3 unspecified (3) Gastroesophageal reflux disease Esophagitis presence: without esophagitis Qualified Code(s): K21.9 - Gastro- esophageal reflux disease without esophagitis
[2021-08-28] MEDS: OLANZapine 10 MG TAB PO SCH (20:15)
[2021-08-28] MEDS: ATORVASTATIN 10 MG TAB PO SCH (20:16)
[2021-08-28] MEDS: LITHIUM CARBONATE SLOW REL 300 MG TAB PO SCH (20:16)
[2021-08-28] MEDS: OLANZapine 20 MG TABLET PO SCH (20:16)
[2021-08-28] MEDS: LORazepam 1 MG TAB PO SCH (20:23)
[2021-08-29] MEDS: MULTIVITAMIN TAB PO SCH (08:18)
[2021-08-29] MEDS: SITagliptin PHOSPHATE 25 MG TAB PO SCH (08:18)
[2021-08-29] MEDS: lamoTRIgine 25 MG TAB PO SCH ×2 (08:18→20:09)
[2021-08-29] MEDS: MONTELUKAST SODIUM 10 MG TABLET PO SCH (08:18)
[2021-08-29] MEDS: amLODIPine BESYLATE 5 MG TAB PO SCH (08:19)
[2021-08-29] MEDS: lamoTRIgine 100 MG TAB PO SCH ×2 (08:19→20:09)
[2021-08-29] MEDS: CHOLECALCIFEROL 1,000 UNITS 25 MCG TAB PO SCH (08:20)
[2021-08-29] MEDS: PANTOprazole 40 MG TAB PO SCH (08:20)
[2021-08-29] MEDS: LOSARTAN POTASSIUM 25 MG TAB PO SCH (08:20)
[2021-08-29] MEDS: DICLOFENAC SOD 1% GEL 100 GM TUBE EXT SCH ×4 (08:21→20:09)
[2021-08-29] MEDS: CARIPRAZINE HCL 1.5 MG PO SCH (08:22)
--- NOTE | 2021-08-29 18:42 | Hospitalist Progress Note ---
Date of Service August 29, 2021 Assessment & Plan (1) Multiple falls: Plan: With numerous falls and ER visits as well as recent hospitalization and placement in acute rehab. She was just discharged from rehab and only was at home for few days before having another fall. She is on multiple psychiatric medications that can cause orthostasis. She is also generally deconditioned although apparently was well enough to go home from rehab just a few days ago. Her significant other and the patient do not think that she can be adequately taking care of at home She has no significant injuries, no fractures on x-ray. No evidence of infection anywhere, vitals are stable except hypertensive because she did not take her blood pressure pills today. Orthostatic vital signs here are negative, however she could very well have orthostasis at home at times She also has B12 deficiency and could have neuropathy contributing to her falls -Consult PT/OT-recommends SNF and 22/11 care -Tylenol as needed for pain control, add on Voltaren gel to the right hip -Discontinue prazosin as this can cause orthostasis and she feels that she does not need it anyway-was prescribed for nightmares -appreciate psychiatric consultation. plan to possibly reduce benzodiazepines at placement under supervision. Patient is psychiatrically stable for transfer to SNF. -She is willing to go to rehab and personal-longterm likely long-term after that - awaiting insurance authorization (2) Right hip pain: Plan: No fracture Tylenol as needed for pain, add on Voltaren gel PT/OT (3) Anemia: Plan: Hemoglobin here is stable from previous at 9.3, MCV elevated 99 Last admission her B12 level was checked and is noted to be low at 260-replace with B12 1000 mcg IM daily x3 doses, then convert to p.o. after that Last admission her transferrin saturation was low at 13%-give IV Venofer x1 Folate normal (4) Asthma: Plan: Stable With history of 3 packs a day of smoking but quit smoking 13 years ago With COPD No acute issues, oxygen levels here are normal Continue home Singulair (5) Benign essential hypertension: Plan: Blood pressure is controlled Continue losartan 25 mg daily, amlodipine 10 mg daily Discontinuing prazosin as above Prior orthostatics without significant drop in BP (6) Bipolar I disorder, single manic episode: Plan: Stable Continue home psychiatric medications Follows with psychiatry (7) COPD, mild: Plan: As above (8) Deafness: Plan: White board for communication (9) Diabetes mellitus type 2, controlled: Plan: HbA1C 4.9 - suggest over treatment however since sitagliptin no hypoglycemic episodes ill continue on this No need for regular glucose checks (10) Chronic diastolic CHF (congestive heart failure): Plan: Not volume overloaded Continue blood pressure control (11) Gastroesophageal reflux disease: Plan: No acute issues Continue PPI (12) Stage III chronic kidney disease: Plan: Creatinine at baseline at 1.6 -Avoid nephrotoxins -renally dose meds when appropriate (13) Vitamin D deficiency: Plan: Continue cholecalciferol Plan: DVT proph-SCDs Diet - T2DM Dispo-continued stay on med/surg, needs rehab placement, medically stable for discharge Admission and Anticipated Discharge Date Admission Date: August 22, 2021 Subjective No acute concerns or questions. Nausea much improved. Increased dose of Voltaren gel helping. Medically stable for discharge. Review of Systems Review of Systems: All systems reviewed & are unremarkable except as noted in Subjective Physical Exam Constitutional: well developed and well nourished; no acute distress Respiratory: normal respiratory effort, lungs clear to auscultation Cardiovascular: Rate/Rhythm: regular rate and regular rhythm Heart Sounds: no murmur Extremities: normal capillary refill; no calf tenderness and no pedal edema Psychiatric: A+Ox3, euthymic affect Results & Data Results & Data ([facility]) Vital Signs (Past 12 Hours) Vital Signs Temp Pulse Pulse Pulse Resp BP BP 08/29/21 15:37 36.9 C 88 18 127/69 08/29/21 11:10 84 128/66 08/29/21 08:16 78 129/68 08/29/21 07:32 36.6 C 73 18 95/50 L Pulse Ox 08/29/21 15:37 97 08/29/21 11:10 08/29/21 08:16 08/29/21 07:32 100 PG Care Time/CCT Total # of Minutes Spent Total Time Spent with Patient: Total time spent is greater than 50% in coordination of care (as documented) at patient's floor/unit and/or counseling patient: Coding Level of Care Code 54042 Subseq Hosp Care Lvl 1 Diagnoses Multiple falls R29.6 Right hip pain M25.551 Anemia D64.9 Asthma J45.909 Benign essential hypertension I10 Bipolar I disorder, single manic episode F30.9 COPD, mild J44.9 Deafness H91.90 Diabetes mellitus type 2, controlled E11.22; N18.30 Chronic kidney disease stage: stage 3 (moderate) Diabetes mellitus complication detail: with chronic kidney disease Diabetes mellitus complication status: with kidney complications Diabetes mellitus local intermodal truck driver insulin use: without local intermodal truck driver use Chronic diastolic CHF (congestive heart failure) I50.32 Gastroesophageal reflux disease K21.9 Esophagitis presence: without esophagitis Stage III chronic kidney disease N18.32 Chronic kidney disease stage 3 subtype: stage 3b (GFR 30-44) Vitamin D deficiency E55.9 (1) Stage III chronic kidney disease Chronic kidney disease stage 3 subtype: stage 3b (GFR 30-44) Qualified Code(s): N18.32 - Chronic kidney disease, stage 3b (2) Diabetes mellitus type 2, controlled Chronic kidney disease stage: stage 3 (moderate) Diabetes mellitus complication detail: with chronic kidney disease Diabetes mellitus complication status: with kidney complications Diabetes mellitus local intermodal truck driver insulin use: without shelter use Qualified Code(s): E11.22 - Type 2 diabetes mellitus with diabetic chronic kidney disease; N18.30 - Chronic kidney disease, stage 3 unspecified (3) Gastroesophageal reflux disease Esophagitis presence: without esophagitis Qualified Code(s): K21.9 - Gastro- esophageal reflux disease without esophagitis
[2021-08-29] MEDS: ATORVASTATIN 10 MG TAB PO SCH (20:09)
[2021-08-29] MEDS: OLANZapine 10 MG TAB PO SCH (20:09)
[2021-08-29] MEDS: LORazepam 1 MG TAB PO SCH (20:09)
[2021-08-29] MEDS: OLANZapine 20 MG TABLET PO SCH (20:09)
[2021-08-29] MEDS: LITHIUM CARBONATE SLOW REL 300 MG TAB PO SCH (20:09)
[2021-08-30] MEDS: lamoTRIgine 100 MG TAB PO SCH ×2 (09:03→20:20)
[2021-08-30] MEDS: DICLOFENAC SOD 1% GEL 100 GM TUBE EXT SCH ×4 (09:03→20:20)
[2021-08-30] MEDS: lamoTRIgine 25 MG TAB PO SCH ×2 (09:03→20:20)
[2021-08-30] MEDS: SITagliptin PHOSPHATE 25 MG TAB PO SCH (09:04)
[2021-08-30] MEDS: MONTELUKAST SODIUM 10 MG TABLET PO SCH (09:04)
[2021-08-30] MEDS: PANTOprazole 40 MG TAB PO SCH (09:04)
[2021-08-30] MEDS: MULTIVITAMIN TAB PO SCH (09:05)
[2021-08-30] MEDS: LOSARTAN POTASSIUM 25 MG TAB PO SCH (09:05)
[2021-08-30] MEDS: CHOLECALCIFEROL 1,000 UNITS 25 MCG TAB PO SCH (09:05)
[2021-08-30] MEDS: amLODIPine BESYLATE 5 MG TAB PO SCH (09:06)
[2021-08-30] MEDS: CARIPRAZINE HCL 1.5 MG PO SCH (09:07)
[2021-08-30] MEDS: OLANZapine 10 MG TAB PO SCH (20:20)
[2021-08-30] MEDS: ATORVASTATIN 10 MG TAB PO SCH (20:20)
[2021-08-30] MEDS: OLANZapine 20 MG TABLET PO SCH (20:20)
[2021-08-30] MEDS: LITHIUM CARBONATE SLOW REL 300 MG TAB PO SCH (20:20)
[2021-08-30] MEDS: LORazepam 1 MG TAB PO SCH (20:23)
--- NOTE | 2021-08-30 22:10 | Hospitalist Progress Note ---
Date of Service August 30, 2021 Assessment & Plan (1) Multiple falls: Plan: With numerous falls and ER visits as well as recent hospitalization and placement in acute rehab. She was just discharged from rehab and only was at home for few days before having another fall. She is on multiple psychiatric medications that can cause orthostasis. She is also generally deconditioned although apparently was well enough to go home from rehab just a few days ago. Her significant other and the patient do not think that she can be adequately taking care of at home She has no significant injuries, no fractures on x-ray. No evidence of infection anywhere, vitals are stable except hypertensive because she did not take her blood pressure pills today. Orthostatic vital signs here are negative, however she could very well have orthostasis at home at times She also has B12 deficiency and could have neuropathy contributing to her falls -Consult PT/OT-recommends SNF and 22/11 care -Tylenol as needed for pain control, add on Voltaren gel to the right hip -Discontinue prazosin as this can cause orthostasis and she feels that she does not need it anyway-was prescribed for nightmares -appreciate psychiatric consultation. plan to possibly reduce benzodiazepines at placement under supervision. Patient is psychiatrically stable for transfer to SNF. -She is willing to go to rehab and personal-jail likely long-term after that - awaiting insurance authorization (2) Right hip pain: Plan: No fracture Tylenol as needed for pain, add on Voltaren gel PT/OT (3) Anemia: Plan: Hemoglobin here is stable from previous at 9.3, MCV elevated 99 Last admission her B12 level was checked and is noted to be low at 260-replace with B12 1000 mcg IM daily x3 doses, then convert to p.o. after that Last admission her transferrin saturation was low at 13%-give IV Venofer x1 Folate normal (4) Asthma: Plan: Stable With history of 3 packs a day of smoking but quit smoking 13 years ago With COPD No acute issues, oxygen levels here are normal Continue home Singulair (5) Benign essential hypertension: Plan: Blood pressure is controlled Continue losartan 25 mg daily, amlodipine 10 mg daily Discontinuing prazosin as above Prior orthostatics without significant drop in BP (6) Bipolar I disorder, single manic episode: Plan: Stable Continue home psychiatric medications Follows with psychiatry (7) COPD, mild: Plan: As above (8) Deafness: Plan: White board for communication (9) Diabetes mellitus type 2, controlled: Plan: HbA1C 4.9 - suggest over treatment however since sitagliptin no hypoglycemic episodes ill continue on this No need for regular glucose checks (10) Chronic diastolic CHF (congestive heart failure): Plan: Not volume overloaded Continue blood pressure control (11) Gastroesophageal reflux disease: Plan: No acute issues Continue PPI (12) Stage III chronic kidney disease: Plan: Creatinine at baseline at 1.6 -Avoid nephrotoxins -renally dose meds when appropriate (13) Vitamin D deficiency: Plan: Continue cholecalciferol Plan: DVT proph-SCDs Diet - T2DM Dispo-continued stay on med/surg, needs rehab placement, medically stable for discharge Admission and Anticipated Discharge Date Admission Date: August 22, 2021 Subjective No acute concerns or questions. Mainly wants to talk to me. Medically stable for discharge. Review of Systems Review of Systems: All systems reviewed & are unremarkable except as noted in Subjective Physical Exam Constitutional: well developed and well nourished; no acute distress Respiratory: normal respiratory effort, lungs clear to auscultation Cardiovascular: Rate/Rhythm: regular rate and regular rhythm Heart Sounds: no murmur Extremities: normal capillary refill; no calf tenderness and no pedal edema Gastrointestinal (Abdomen): Inspection/Auscultation: normal bowel sounds Percussion/Palpation: abdomen soft; abdomen nontender, no guarding and abdomen not rigid Psychiatric: A+Ox3, euthymic affect Results & Data Results & Data ([facility]) Vital Signs (Past 12 Hours) Vital Signs Temp Pulse Pulse Resp BP BP Pulse Ox 08/30/21 20:33 36.7 C 87 20 159/79 H 98 08/30/21 16:00 36.9 C 88 18 125/73 98 PG Care Time/CCT Total # of Minutes Spent Total Time Spent with Patient: Total time spent is greater than 50% in coordination of care (as documented) at patient's floor/unit and/or counseling patient: Coding Level of Care Code 40832 Subseq Hosp Care Lvl 1 Diagnoses Multiple falls R29.6 Right hip pain M25.551 Anemia D64.9 Asthma J45.909 Benign essential hypertension I10 Bipolar I disorder, single manic episode F30.9 COPD, mild J44.9 Deafness H91.90 Diabetes mellitus type 2, controlled E11.22; N18.30 Chronic kidney disease stage: stage 3 (moderate) Diabetes mellitus complication detail: with chronic kidney disease Diabetes mellitus complication status: with kidney complications Diabetes mellitus usp insulin use: without exterminator helper use Chronic diastolic CHF (congestive heart failure) I50.32 Gastroesophageal reflux disease K21.9 Esophagitis presence: without esophagitis Stage III chronic kidney disease N18.32 Chronic kidney disease stage 3 subtype: stage 3b (GFR 30-44) Vitamin D deficiency E55.9 (1) Stage III chronic kidney disease Chronic kidney disease stage 3 subtype: stage 3b (GFR 30-44) Qualified Code(s): N18.32 - Chronic kidney disease, stage 3b (2) Diabetes mellitus type 2, controlled Chronic kidney disease stage: stage 3 (moderate) Diabetes mellitus complication detail: with chronic kidney disease Diabetes mellitus complication status: with kidney complications Diabetes mellitus exterminator helper insulin use: without exterminator helper use Qualified Code(s): E11.22 - Type 2 diabetes mellitus with diabetic chronic kidney disease; N18.30 - Chronic kidney disease, stage 3 unspecified (3) Gastroesophageal reflux disease Esophagitis presence: without esophagitis Qualified Code(s): K21.9 - Gastro- esophageal reflux disease without esophagitis
--- NOTE | 2021-08-31 06:10 | Electrocardiogram Report ---
Test Reason : Blood Pressure : / mmHG Vent. Rate : 079 BPM Atrial Rate : 079 BPM P-R Int : 156 ms QRS Dur : 110 ms QT Int : 398 ms P-R-T Axes : 063 052 077 degrees QTc Int : 456 ms Normal sinus rhythm Minimal voltage criteria for LVH, may be normal variant Borderline ECG When compared with ECG of 22-AUG-2021 05:31, No significant change was found Confirmed by Osman Guido ([id number]) on 08/31/2021 6:10:04 AM Referred By: REFERRED SELF Confirmed By:Osman Guido
--- NOTE | 2021-08-31 06:20 | Electrocardiogram Report ---
Test Reason : Blood Pressure : / mmHG Vent. Rate : 081 BPM Atrial Rate : 081 BPM P-R Int : 158 ms QRS Dur : 108 ms QT Int : 404 ms P-R-T Axes : 072 079 063 degrees QTc Int : 469 ms Sinus rhythm Normal ECG When compared with ECG of 28-AUG-2021 18:55, (unconfirmed) No significant change Confirmed by Osman Guido ([id number]) on 08/31/2021 6:20:03 AM Referred By: REFERRED SELF Confirmed By:Osman Guido
--- NOTE | 2021-08-31 06:59 | Electrocardiogram Report ---
Test Reason : Blood Pressure : / mmHG Vent. Rate : 072 BPM Atrial Rate : 072 BPM P-R Int : 154 ms QRS Dur : 108 ms QT Int : 410 ms P-R-T Axes : 069 058 071 degrees QTc Int : 448 ms Normal sinus rhythm Normal ECG When compared with ECG of 29-AUG-2021 06:35, (unconfirmed) No significant change Confirmed by Osman Guido ([id number]) on 08/31/2021 6:59:05 AM Referred By: REFERRED SELF Confirmed By:Osman Guido
[2021-08-31] MEDS ORDERED: CYANOCOBALAMIN (B-12) 500 MCG TABLET PO SCH (09:00)
[2021-08-31] MEDS: lamoTRIgine 100 MG TAB PO SCH (10:36)
[2021-08-31] MEDS: SITagliptin PHOSPHATE 25 MG TAB PO SCH (10:37)
[2021-08-31] MEDS: MONTELUKAST SODIUM 10 MG TABLET PO SCH (10:37)
[2021-08-31] MEDS: CHOLECALCIFEROL 1,000 UNITS 25 MCG TAB PO SCH (10:37)
[2021-08-31] MEDS: LOSARTAN POTASSIUM 25 MG TAB PO SCH (10:37)
[2021-08-31] MEDS: amLODIPine BESYLATE 5 MG TAB PO SCH (10:37)
[2021-08-31] MEDS: MULTIVITAMIN TAB PO SCH (10:37)
[2021-08-31] MEDS: PANTOprazole 40 MG TAB PO SCH (10:37)
[2021-08-31] MEDS: CARIPRAZINE HCL 1.5 MG PO SCH (10:38)
[2021-08-31] MEDS: lamoTRIgine 25 MG TAB PO SCH (10:38)
[2021-08-31] MEDS: DICLOFENAC SOD 1% GEL 100 GM TUBE EXT SCH ×2 (10:38→12:07)
--- NOTE | 2021-09-10 08:49 | Discharge Summary ---
Date of Service September 10, 2021 Admission HPI Per Admitting Provider This patient is a 71-year-old female with a history of schizoaffective disorder, bipolar disorder, frequent falls, asthma/COPD, GERD, hyperlipidemia, CKD stage III, HTN, DM 2, lower back pain, chronic diastolic CHF, anemia, and deafness who presents to the ER with complaint of a fall. Her significant other found her on the ground and he thinks she was trying to walk to the bathroom. She was sleeping at that point. She continues to complain of right-sided hip pain which she has had for quite some time as I admitted her the last admission for numerous falls. She was discharged on 08/11 to acute rehab where she spent a little over a week. She recently came home from rehab a few days ago and was getting home health services. She complains of chronic abdominal pain, mild nausea, wants to know if she has a UTI but has no urinary symptoms, and obsesses a bit at times over multiple somatic complaints. In the ER, she had a CT head noncontrast and a pelvic x-ray which were negative for acute issues. Chest x-ray was negative. Otherwise she has chronic stable anemia, and UA was negative, COVID-19 was negative, lithium level was normal, elevated creatinine 1.6 which is her baseline, and a mildly elevated AST at 60. Vitals were stable except for some mild hypertension. She admits that it would be better for her to be in a personal senior living. She will be admitted for PT evaluation and possible rehab placement followed by placement in long-term personal senior living. Discharge Data Allergies Allergy/AdvReac Type Severity Reaction Status Date / Time latex Allergy Severe UNKNOWN Verified 08/22/21 07:19 aspirin Allergy Unknown UNKNOWN Verified 08/22/21 07:19 REACTION clozapine Allergy Unknown TOXIC Verified 08/22/21 07:19 REACTION codeine Allergy Unknown UNKNOWN Verified 08/22/21 07:19 REACTION ibuprofen Allergy Unknown UNKNOWN Verified 08/22/21 07:19 REACTION lurasidone Allergy Unknown TOXIC Verified 08/22/21 07:19 REACTION Penicillins Allergy Unknown UNKNOWN Verified 08/22/21 07:19 REACTION Sulfa (Sulfonamide Allergy Unknown UNKNOWN Verified 08/22/21 07:19 Antibiotics) REACTION Consultations 08/22/21 09:12 ED Decision to Admit Stat 08/25/21 14:05 Consult Psychiatry Routine Ordered Studies 08/22/21 06:46 CT head/brain wo con Stat Hospital Course (1) Multiple falls: With numerous falls and ER visits as well as recent hospitalization and placement in acute rehab. She was just discharged from rehab and only was at home for few days before having another fall. She is on multiple psychiatric medications that can cause orthostasis. She is also generally deconditioned although apparently was well enough to go home from rehab just a few days ago. Her significant other and the patient do not think that she can be adequately taking care of at home She has no significant injuries, no fractures on x-ray. No evidence of infection anywhere, vitals are stable except hypertensive because she did not take her blood pressure pills today. Orthostatic vital signs here are negative, however she could very well have orthostasis at home at times She also has B12 deficiency and could have neuropathy contributing to her falls -Consult PT/OT-recommends SNF and 24/7 care -Tylenol as needed for pain control, add on Voltaren gel to the right hip -Discontinue prazosin as this can cause orthostasis and she feels that she does not need it anyway-was prescribed for nightmares -appreciate psychiatric consultation. plan to possibly reduce benzodiazepines at placement under supervision. Patient is psychiatrically stable for transfer to SNF. -She is willing to go to rehab and personal-senior living likely long-term after that - awaiting insurance authorization (2) Right hip pain: No fracture Tylenol as needed for pain, add on Voltaren gel PT/OT (3) Anemia: Hemoglobin here is stable from previous at 9.3, MCV elevated 99 Last admission her B12 level was checked and is noted to be low at 260-replace with B12 1000 mcg IM daily x3 doses, then convert to p.o. after that Last admission her transferrin saturation was low at 13%-give IV Venofer x1 Folate normal (4) Asthma: Stable With history of 3 packs a day of smoking but quit smoking 13 years ago With COPD No acute issues, oxygen levels here are normal Continue home Singulair (5) Benign essential hypertension: Blood pressure is controlled Continue losartan 25 mg daily, amlodipine 10 mg daily Discontinuing prazosin as above Prior orthostatics without significant drop in BP (6) Bipolar I disorder, single manic episode: Stable Continue home psychiatric medications Follows with psychiatry (7) COPD, mild: As above (8) Deafness: White board for communication (9) Diabetes mellitus type 2, controlled: HbA1C 4.9 - suggest over treatment however since sitagliptin no hypoglycemic episodes ill continue on this No need for regular glucose checks (10) Chronic diastolic CHF (congestive heart failure): Not volume overloaded Continue blood pressure control (11) Gastroesophageal reflux disease: No acute issues Continue PPI (12) Stage III chronic kidney disease: Creatinine at baseline at 1.6 -Avoid nephrotoxins -renally dose meds when appropriate (13) Vitamin D deficiency: Continue cholecalciferol DVT proph-SCDs Diet - T2DM Dispo-continued stay on med/surg, needs rehab placement, medically stable for discharge Discharge Plan Discharge Items Patient Disposition: Transfer [facility] Fac Reason For Visit: FallS,PLACEMENT Discharge Diagnosis: Recurrent falls B12 deficiency Right back pain Activity: Resume your previous activity Non-emergency contact: Primary Care Provider Call non-emergency contact if: you have any medication questions and your symptoms worsen Follow-up/Referrals: Santos Galeano III, CRNP [Primary Care Provider] - Diet: Carb Consistent or DM2 Addtl Attending Provider Instructions: You were admitted to [facility] from August 22 to August 31, 2021 due to recurrent falls. You were diagnosed with orthostatic hypotension which resolved with stopping prazosin. No orthostasis on losartan and amlodipine. She was started on B12 supplementation for previously diagnosed B12 deficiency which may be contributing towards her ambulatory dysfunction. She was started on Voltaren gel for her right back pain. No new fractures seen on imaging. It was recommended for your patient to receive additional rehabilitation at a long term facility. At discharge was delayed pending authorization for this however she has now been accepted at [facility] and is medically stable for discharge today. Pending Studies at Discharge: No Stand-Alone Forms: My [facility] Skilled Items Patient informed of condition?: Yes DNR: No Discharge Level of Care: Skilled Communicable Disease: No Discharge Prognosis: Stable Lines: None Urinary Catheter: No Medications and DC Order Prescriptions: New diclofenac sodium [Voltaren Arthritis Pain] 1 % Gel 4 g EXT QID Qty: 100 RF: 0 cyanocobalamin (vitamin B-12) 1,000 mcg tablet 1,000 mcg PO DAILY Qty: 30 RF: 0 Continued multivitamin [Multiple Vitamins] Tablet 1 tab PO QAM Qty: 0 RF: 0 olanzapine [Zyprexa] 10 mg Tablet 10 mg PO HS Qty: 0 RF: 0 lamotrigine [Lamictal] 25 mg Tablet 25 mg PO BID Qty: 0 RF: 0 lamotrigine [Lamictal] 100 mg Tablet 100 mg PO BID Qty: 0 RF: 0 (DME) blood-glucose meter [OneTouch Ultra2 Meter] Misc See Rx Instructions .MEDSUPPLY Qty: 1 RF: 0 (DME) OneTouch Ultra Blue Test Strip Strip See Rx Instructions .MEDSUPPLY Qty: 100 RF: 1 (DME) lancets [OneTouch Delica Plus Lancet] 30 gauge misc See Rx Instructions .MEDSUPPLY Qty: 100 RF: 5 amlodipine 10 mg tablet 10 mg PO QAM Qty: 90 RF: 1 (DME) Select Briefs Misc See Rx Instructions .Route Qty: 120 RF: 5 atorvastatin 10 mg tablet 10 mg PO HS Qty: 90 RF: 1 losartan 25 mg tablet 25 mg PO QAM Qty: 90 RF: 1 montelukast 10 mg tablet 10 mg PO QAM Qty: 90 RF: 3 omeprazole 20 mg capsule,delayed release(DR/EC) 20 mg PO QAM Qty: 90 RF: 1 (DME) blood sugar diagnostic Strip See Rx Instructions .ROUTE .MEDSUPPLY Qty: 400 RF: 1 (DME) blood-glucose meter [OneTouch Ultra2 Meter] Misc See Rx Instructions .ROUTE .MEDSUPPLY Qty: 1 RF: 0 cholecalciferol (vitamin D3) [Vitamin D3] 25 mcg (1,000 unit) Tablet 25 mcg PO QAM RF: 0 Januvia 25 mg tablet 25 mg PO QAM RF: 0 lorazepam 2 mg tablet 2 mg PO HS RF: 0 lithium carbonate 300 mg tablet extended release 300 mg PO HS RF: 0 olanzapine 20 mg tablet 20 mg PO HS RF: 0 Vraylar 1.5 mg capsule 1.5 mg PO QAM RF: 0 Discontinued prazosin 1 mg Capsule 2 mg PO HS Qty: 60 RF: 0 Discharge Orders: Discharge Order (Routine); Ordered 08/31/21 Ordered By: Wyatt Shore Admission Data Admit Date/Time: 08/22/21 09:55 Attending Provider: Wyatt Shore Admit Provider: Lissette Perez Primary Care Provider: Santos Galeano III Other Providers: Lissette Perez ; [facility] ; Salome Mccullough ; Viki Craig ; Yanet Johnson ; Gianni Bishop Other Interventions: Discharge Summary Assessment (RN) Last Done: 08/31/21 11:34 Coding Diagnoses Multiple falls R29.6 Right hip pain M25.551 Anemia D64.9 Asthma J45.909 Benign essential hypertension I10 Bipolar I disorder, single manic episode F30.9 COPD, mild J44.9 Deafness H91.90 Diabetes mellitus type 2, controlled E11.22; N18.30 Diabetes mellitus termite helper insulin use: without skilled nursing use Diabetes mellitus complication status: with kidney complications Diabetes mellitus complication detail: with chronic kidney disease Chronic kidney disease stage: stage 3 (moderate) Chronic diastolic CHF (congestive heart failure) I50.32 Gastroesophageal reflux disease K21.9 Esophagitis presence: without esophagitis Stage III chronic kidney disease N18.32 Chronic kidney disease stage 3 subtype: stage 3b (GFR 30-44) Vitamin D deficiency E55.9
== END 2021-08-31 14:40 | DRG 641 ==
LOC: ED 05:23 → 3W 09:55 → SUATTDRO 09:55 → 3W 11:30

== ENCOUNTER 2023-07-14 12:42 | Inpatient (IN) ==
--- NOTE | 2023-07-14 13:07 | Emergency Department Note ---
Impression & Plan Acute kidney injury superimposed on CKD, Acute hyponatremia, Dehydration, Acute UTI, Weakness, Hematuria ED Provider Note Provider: Mitch Garcia MD DATE OF SERVICE: 07/14/2023 CHIEF COMPLAINT: Abnormal labs HISTORY OF PRESENT ILLNESS: Patient is a 73-year-old female history of bipolar disorder/schizophrenia, CHF, CKD, GERD, diabetes presenting here today via ambulance from [facility] where she resides. Patient evidently had some worsened renal function. Had blood testing this morning showing a creatinine of 4.6 with a sodium of 122. Per EMS the patient reportedly has some waxing waning mental status and according to EMS facility states that she was on the more drowsy side of things today. No reported falls. Patient is able to tell me if she is in any pain. Paperwork from the facility does indicate that she is on lithium. PAST MEDICAL HISTORY: As noted above MEDICATIONS: Reviewed medication list from the facility SOCIAL HISTORY: Resides at [facility] PHYSICAL EXAM: GENERAL: alert to painful stimuli. Does state that she needs to pee but is unable to answer other questions for me. Somewhat drowsy Head: normocephalic and atraumatic EYES: No injection, discharge or icterus. PERRL NECK: Trachea midline. ENT: Mucous membranes pink and moist. LUNGS: Airway patent. No retractions. Breath sounds diminished bases HEART: Regular rate and rhythm. No chest wall tenderness ABDOMEN: Soft nontender but moderately distended SKIN: Acyanotic, warm, dry, without rashes EXTREMITIES: Without swelling, tenderness or deformity NEUROLOGICAL: Mumbles that she needs to pee but does not answer questions for me. Not following commands. Does not withdraw to pain in all 4 extremities. EK bpm sinus tachycardia. No PVC. Questionably some ST segment elevation isolated in V1 with ST depression and T wave inversions in 1, lead II, aVF, aVL, V5, and V6. T wave inversions and ST changes are new compared to previous from December 2021. EK bpm sinus tachycardia. No PVC or PAC. Compared to previous from earlier improving inferior and lateral T wave inversion/ST depression CONTINUOUS CARDIAC MONITORING: was ordered and showed a heart rate of 90s-100s bpm in sinus tachycardia to NSR Patient's laboratory studies and imaging reviewed. Differential includes Infection, dehydration, metabolic abnormality, hypo/hyperglycemia, electrolyte disturbance, anemia, hypoxia, cardiac sources, intracerebral event, toxicologic, neurologic, as well as other pathologies. IMPRESSION/MEDICAL DECISION MAKING: Patient seems somewhat in the for pathic. Outpatient blood work will be rechecked here to determine if she does have truly significant worsened renal function. Is on lithium as well and look for signs of toxicity from this. New hyponatremia is also concerning. Will complete a CT of the head given the fact that she is drowsy here as well as a CT abdomen pelvis without contrast to evaluate for any obstructive pathology. Patient on multiple medications that with worsened renal function may be accumulating. Blood work here with stable mild anemia. No leukocytosis. Confirms hyponatremia 124 compared to 122 earlier today with a creatinine of 4.3 today. No CK elevation or severe hyperkalemia noted. [place] is therapeutic but not elevated. Troponin is normal. EKG with some changes and question this is more related to electrolyte derangements secondary to dehydration and the K of 5.1. CT of the head per radiology report without acute findings. CT abdomen pelvis with some bladder distention but no hydronephrosis and Ham catheter is placed here to ensure no obstructive findings. Evidently has had some decreased intake at home. Will give some gentle IV fluid hydration. Will be cautious to prevent overcorrection too quickly. Ham catheter placed with over 500 cc of maroon- colored urine out. Can discuss with the hospitalist in addition to urine awesome's and sodium that are been ordered will give an additional small IV fluid bolus for hydration and some calcium and insulin and dextrose to see if improving some of her potassium levels improved her EKG. Repeat BMP will be ordered. Urinalysis with blood and questioning for infection. Did review microbiology and evidently had a urine culture sent several days ago at the care facility. This appears to be growing bacteria. Will start on antibioticsceftriaxone ordered. Repeat EKG with some improvement again seems likely related to dehydration and electrolyte abnormality; BMP does show gradually improving electrolytes. DIAGNOSIS: Hyponatremia, SYLVAIN on chronic kidney disease, fatigue, acute UTI DISPOSITION: Hospitalist will evaluate Past Med/Surg History Medical History Anxiety Asthma Bilateral edema of lower extremity Bipolar disorder Chronic diastolic CHF (congestive heart failure) CKD (chronic kidney disease) Deafness Depression GERD (gastroesophageal reflux disease) Hyperlipemia Hyperparathyroidism Osteoarthritis Osteoporosis Poor historian Schizoaffective disorder Spondylolisthesis Type II diabetes mellitus Surgical History History of cataract surgery History of tooth extraction History of tubal ligation Status post breast lumpectomy Family History Father Myocardial infarction Brother Rheumatoid arthritis Other Cancer Diabetes Heart disease Hypertension Lung disease Denies family history of Colon cancer Ovarian cancer Prostate cancer Breast cancer Social History Smoking Status: Unknown if ever smoked Tobacco Type: Cigarettes Second Hand Exposure: No; Do You Dip or Chew Tobacco: No; Hx Alcohol Use: Yes Hx Substance Use: No Preferred Language: Israeli Communication Ability Comment: pt CHILKOOT and uses white board to communicate Visual Impairment: Partially Limited Hearing Ability: Animal Damage Control Agent Required: No Beliefs That Will Affect Care: None marital status: Single Current Living Situation: Spouse current occupational status: disabled Feels Safe at Home: Yes Childhood Exposure to Second-Hand Smoke: No Diet: regular Dental Care, Regularly: No Physical Activity Frequency: 5-6 Times per Week Seatbelt Use: always Sunscreen Use: No Assistive Devices: Glasses and Walker Allergies Allergies Allergy/AdvReac Type Severity Reaction Status Date / Time latex Allergy Severe UNKNOWN Verified 08/31/22 13:20 aspirin Allergy Unknown UNKNOWN Verified 08/31/22 13:20 REACTION clozapine Allergy Unknown TOXIC Verified 08/31/22 13:20 REACTION codeine Allergy Unknown UNKNOWN Verified 08/31/22 13:20 REACTION ibuprofen Allergy Unknown UNKNOWN Verified 08/31/22 13:20 REACTION lurasidone Allergy Unknown TOXIC Verified 08/31/22 13:20 REACTION Penicillins Allergy Unknown UNKNOWN Verified 08/31/22 13:20 REACTION Sulfa (Sulfonamide Allergy Unknown UNKNOWN Verified 08/31/22 13:20 Antibiotics) REACTION Home Meds Home Medications Medication Instructions Recorded Confirmed multivitamin (Multiple Vitamins 1 tab PO QAM ##0 11/17/17 08/31/22 tablet) lamotrigine 100 mg tablet 100 mg PO BID ##0 12/30/17 08/31/22 (Lamictal) lamotrigine 25 mg tablet (Lamictal) 25 mg PO BID ##0 12/30/17 08/31/22 olanzapine 10 mg tablet (Zyprexa) 10 mg PO HS ##0 12/30/17 08/31/22 cholecalciferol (vitamin D3) 25 25 mcg PO QAM 08/26/20 08/31/22 mcg (1,000 unit) tablet (Vitamin D3) lithium carbonate 300 mg 300 mg PO HS 08/02/21 08/31/22 tablet,extended release lorazepam 2 mg tablet 2 mg PO HS 08/02/21 08/31/22 olanzapine 20 mg tablet 20 mg PO HS 08/02/21 08/31/22 sitagliptin phosphate 25 mg tablet 25 mg PO QAM 08/07/21 08/31/22 (Januvia) furosemide 40 mg tablet 40 mg PO DAILY 08/06/22 08/31/22 ondansetron 4 mg disintegrating 4 mg PO Q8H 08/06/22 08/31/22 tablet tramadol 50 mg tablet 50 mg PO Q6H PRN 08/06/22 08/31/22 Previous Rx's Medication Instructions Recorded blood sugar diagnostic (OneTouch #100 ea 08/25/20 Ultra Blue Test Strip) blood-glucose meter (OneTouch #1 ea 08/25/20 Ultra2 Meter) atorvastatin 10 mg tablet 10 mg PO HS #90 tabs 03/09/21 blood sugar diagnostic #400 ea 03/09/21 blood-glucose meter (OneTouch #1 ea 03/09/21 Ultra2 Meter) losartan 25 mg tablet 25 mg PO QAM #90 tabs 03/09/21 montelukast 10 mg tablet 10 mg PO QAM #90 tabs 03/09/21 omeprazole 20 mg capsule,delayed 20 mg PO QAM #90 caps 03/09/21 release lancets 30 gauge (OneTouch Delica #100 ea 03/18/21 Plus Lancet) diaper,brief,adult,disposable #120 ea 08/07/21 (Select Briefs) cyanocobalamin (vitamin B-12) 1,000 mcg PO DAILY #30 tabs 08/31/21 1,000 mcg tablet diclofenac sodium 1 % topical gel 4 g EXT QID #100 grams 08/31/21 (Voltaren Arthritis Pain) Results & Data (ED) Vital Signs Vital Signs - 24 hr 07/14/23 12:43 07/14/23 12:52 07/14/23 12:55 Pulse Rate 101 H 103 H Pulse Rate [Apical] Pulse Rhythm Regular Respiratory Rate 16 Respiratory Effort / Characteristics Non-Labored Spontaneous Respiratory Depth Normal Respiratory Pattern Regular Blood Pressure 141/89 H Blood Pressure [Left Arm] Blood Pressure Mean 106 Blood Pressure Mean [Left Arm] Pulse Oximetry 99 99 Oxygen Delivery Method Room Air Room Air Sepsis Recent Fever Within 48 Hours No Sepsis New/Unexplained Change in Mental Status No Sepsis Action Taken by Nursing No Action Required 07/14/23 15:22 07/14/23 16:11 Pulse Rate Pulse Rate [Apical] 99 H 99 H Pulse Rhythm Respiratory Rate 18 20 Respiratory Effort / Characteristics Respiratory Depth Respiratory Pattern Blood Pressure Blood Pressure [Left Arm] 125/66 129/81 Blood Pressure Mean Blood Pressure Mean [Left Arm] 85 97 Pulse Oximetry 100 96 Oxygen Delivery Method Room Air Room Air Sepsis Recent Fever Within 48 Hours Sepsis New/Unexplained Change in Mental Status Sepsis Action Taken by Nursing Laboratory Data 07/14/23 12:59 07/14/23 15:44 Lab Results 07/14/23 07/14/23 07/14/23 Range/Units 12:59 14:20 14:21 WBC 9.79 (4.8-10.8) K/ul RBC 3.49 L (4.20-5.40) M/uL Hgb 10.0 L (12.0-16.0) g/dl Hct 30.8 L (37.0-47.0) % MCV 88.3 (80.0-100.0) fL MCH 28.7 (25.0-34.0) pg MCHC 32.5 (32.0-36.0) g/dL RDW Std Deviation 47.1 H (36.4-46.3) fL RDW Coeff of Rachel 14.6 H (11.5-14.5) % Plt Count 595 H (130-400) K/uL MPV 9.5 (9.4-12.4) fL Immature Gran % (Auto) 1.0 % Neut % (Auto) 83.9 % Lymph % (Auto) 6.7 % Otoe % (Auto) 8.2 % Eos % (Auto) 0.0 % Baso % (Auto) 0.2 % Neut # (Auto) 8.21 H (1.40-6.50) K/uL Lymph # (Auto) 0.66 L (1.20-3.40) K/uL Otoe # (Auto) 0.80 H (0.11-0.59) K/uL Eos # (Auto) 0.00 (0.00-0.50) K/uL Baso # (Auto) 0.02 (0.00-0.20) K/uL Immature Gran # (Auto) 0.10 (0.01-0.20) K/uL PT Cancelled INR Cancelled Sodium 124 L (136-145) mmol/L Potassium 5.1 (3.5-5.1) mmol/L Chloride 88 L (98-107) mmol/L Carbon Dioxide 25 (21-32) mmol/L Anion Gap 11 (3-11) BUN 67 H (6-23) mg/dl Creatinine 4.33 H D (0.6-1.2) mg/dl Est Cr Clr Drug Dosing Not Reportable Est GFR ( Amer) 11.2 ml/min Est GFR (Non-Af Amer) 9.6 ml/min BUN/Creatinine Ratio 15.5 (10-20) Glucose 190 H (70-99(Fasting)) mg/dl Lactate 1.6 (0.4-2.0) mmol/L Calcium 9.0 (8.6-10.3) mg/dl Magnesium 3.0 H (1.7-2.4) mg/dl Total Bilirubin 0.2 (0.2-1.0) mg/dl AST 31 (13-39) U/L ALT 30 (7-52) U/L Alkaline Phosphatase 168 H (34-104) U/L Ammonia 22.0 (18-72) umol/L Total Creatine Kinase 105 (26-192) U/L Troponin I High Sens 12.8 (0-14) pg/ml Total Protein 7.5 (6.0-8.3) gm/dl Albumin 3.2 L (3.4-5.0) gm/dl Globulin 4.3 H (2.5-4.0) gm/dl Albumin/Globulin Ratio 0.7 L (0.9-2) TSH 0.560 (0.300-4.500) uIu/ml Urine Color Red Urine Appearance Turbid A (Clear) Urine pH 7.5 (4.5-7.5) Ur Specific Irving 1.006 (1.000-1.030) Urine Protein 2+ H (Negative) Urine Glucose (UA) Negative (Negative) Urine Ketones Negative (Negative) Urine Blood 3+ H (Negative) Urine Nitrite Negative (Negative) Urine Bilirubin Negative (Negative) Urine Urobilinogen Negative (Negative) Ur Leukocyte Esterase 3+ H (Negative) Urine WBC (Auto) >30 H (0-5) /hpf Urine RBC (Auto) 10-30 H (0-4) /hpf U Hyaline Cast (Auto) 0 (0-5) /lpf U Epithel Cells (Auto) 0-5 (0-5) /lpf Urine Bacteria (Auto) Negative (Negative) Urine Yeast Not Reportable Richland 0.9 (0.6-1.2) mmol/L 07/14/23 07/14/23 Range/Units 15:43 15:44 WBC (4.8-10.8) K/ul RBC (4.20-5.40) M/uL Hgb (12.0-16.0) g/dl Hct (37.0-47.0) % MCV (80.0-100.0) fL MCH (25.0-34.0) pg MCHC (32.0-36.0) g/dL RDW Std Deviation (36.4-46.3) fL RDW Coeff of Rachel (11.5-14.5) % Plt Count (130-400) K/uL MPV (9.4-12.4) fL Immature Gran % (Auto) % Neut % (Auto) % Lymph % (Auto) % Otoe % (Auto) % Eos % (Auto) % Baso % (Auto) % Neut # (Auto) (1.40-6.50) K/uL Lymph # (Auto) (1.20-3.40) K/uL Otoe # (Auto) (0.11-0.59) K/uL Eos # (Auto) (0.00-0.50) K/uL Baso # (Auto) (0.00-0.20) K/uL Immature Gran # (Auto) (0.01-0.20) K/uL PT 11.4 INR 1.0 Sodium 127 L (136-145) mmol/L Potassium 4.8 (3.5-5.1) mmol/L Chloride 90 L (98-107) mmol/L Carbon Dioxide 28 (21-32) mmol/L Anion Gap 9 (3-11) BUN (6-23) mg/dl Creatinine (0.6-1.2) mg/dl Est Cr Clr Drug Dosing Est GFR ( Amer) ml/min Est GFR (Non-Af Amer) ml/min BUN/Creatinine Ratio (10-20) Glucose (70-99(Fasting)) mg/dl Lactate (0.4-2.0) mmol/L Calcium 9.7 (8.6-10.3) mg/dl Magnesium (1.7-2.4) mg/dl Total Bilirubin (0.2-1.0) mg/dl AST (13-39) U/L ALT (7-52) U/L Alkaline Phosphatase (34-104) U/L Ammonia (18-72) umol/L Total Creatine Kinase (26-192) U/L Troponin I High Sens (0-14) pg/ml Total Protein (6.0-8.3) gm/dl Albumin (3.4-5.0) gm/dl Globulin (2.5-4.0) gm/dl Albumin/Globulin Ratio (0.9-2) TSH (0.300-4.500) uIu/ml Urine Color Urine Appearance (Clear) Urine pH (4.5-7.5) Ur Specific Irving (1.000-1.030) Urine Protein (Negative) Urine Glucose (UA) (Negative) Urine Ketones (Negative) Urine Blood (Negative) Urine Nitrite (Negative) Urine Bilirubin (Negative) Urine Urobilinogen (Negative) Ur Leukocyte Esterase (Negative) Urine WBC (Auto) (0-5) /hpf Urine RBC (Auto) (0-4) /hpf U Hyaline Cast (Auto) (0-5) /lpf U Epithel Cells (Auto) (0-5) /lpf Urine Bacteria (Auto) (Negative) Urine Yeast Richland (0.6-1.2) mmol/L Administered Medications Sodium Chloride (Nss) 500 mls @ 80 mls/hr IV .Q6H15M [facility] Stop: 08/13/23 14:14 Last Admin: 07/14/23 14:23 Dose: 80 mls/hr Documented By: Discontinued Medications Dextrose (Dextrose 50% 50 Ml Syringe) 50 ml IV NOW ONE Stop: 07/14/23 14:32 Last Admin: 07/14/23 15:17 Dose: 50 ml Documented By: ALLAN Sodium Chloride (Nss) 500 mls @ 999 mls/hr IV .Q31M ONE Stop: 07/14/23 15:01 Last Admin: 07/14/23 16:13 Dose: 999 mls/hr Documented By: HONORIO Calcium Gluconate () 1,000 mg in 60 mls @ 240 mls/hr IV NOW STA Stop: 07/14/23 14:45 Last Infusion: 07/14/23 16:13 Dose: Infused Documented By: Admin: 07/14/23 15:16 Dose: 240 mls/hr Documented By: ALLAN Ceftriaxone Sodium (Rocephin) 2,000 mg in 50 mls @ 100 mls/hr IV NOW STA Stop: 07/14/23 16:09 Last Admin: 07/14/23 16:12 Dose: 100 mls/hr Documented By: ALLAN Insulin Human Regular (Novolin-R Insulin Per Unit Charge) 10 units IV NOW STA Stop: 07/14/23 14:32 Last Admin: 07/14/23 15:16 Dose: 10 units Documented By: ALLAN Co-signed By: [facility] Imaging Data Radiologist's Impression: Abdomen/Pelvis CT 07/14/23 12:55 CT OF THE ABDOMEN AND PELVIS WITHOUT CONTRAST CLINICAL HISTORY: Acute kidney injury. COMPARISON STUDY: CT of the abdomen and pelvis December 19, 2021. Renal ultrasound August 25, 2022. TECHNIQUE: Axial images of the abdomen and pelvis were obtained without IV contrast. Images were reviewed in the axial, sagittal, and coronal planes. Automated exposure control was utilized for the study. A dose lowering technique was utilized adhering to the principles of ALARA. FINDINGS: Lung bases are unremarkable. No pneumatosis, free air or portal venous gas is present. There is moderate bilateral renal cortical thinning. There are no urinary calculi. There is no hydronephrosis or hydroureter. The bladder is moderately distended. There is mild bladder wall thickening. A small amount of layering material within the right posterolateral aspect the bladder is present. A 2.6 cm water attenuation right renal lesion is unchanged. This likely reflects a cyst. A few additional suspected right renal cysts are present. Unenhanced images of the liver, spleen, right adrenal gland and pancreas are unremarkable. Nodularity of the left adrenal gland is unchanged. There is no evidence for a bowel obstruction. This exam is mildly compromised given difficulty positioning. There is no lymphadenopathy. There are no fluid collections. No acute fractures or suspicious lesions within the visualized skeletal structures are identified. IMPRESSION: 1. No urinary calculi or hydronephrosis. Moderate bilateral renal cortical thinning. 2. Distended bladder with mild bladder wall thickening. Small amount of layering hyperdense material within the bladder. This favors a small amount of hemorrhage although could be correlated with urinalysis. 3. No bowel obstruction. No bowel wall thickening on unenhanced exam. ACT 112: Negative or not required by law. Electronically signed by: Armand Roland M.D. 07/14/2023 1:31 PM Chest X-Ray 07/14/23 12:55 XR chest 1V portable HISTORY: weakness COMPARISON: Chest and abdominal series 01/18/2022. FINDINGS: Slightly rotated study. No pneumothorax. No pleural effusions. The cardiac silhouette remains borderline enlarged. The lungs are clear. No evidence for pulmonary edema. No acute fractures. IMPRESSION: No acute process. ACT 112: Negative or not required by law. Electronically signed by: Ta Ochoa M.D. 07/14/2023 2:[address] 07/14/23 12:[address] DOSE: HISTORY: weak, confused, sylvain TECHNIQUE: Multiaxial CT images of the head were performed without the use of intravenous contrast. Automated exposure control was utilized for this study. A dose lowering technique was utilized adhering to the principles of ALARA. Comparison: Head CT 08/22/2021. Findings: The paranasal sinuses and mastoid air cells are clear. The calvarium and skull base are intact. The ventricles and sulci are within normal limits. There is no mass, hematoma, midline shift, or acute infarct. Impression: No acute intracranial abnormality. ACT 112: Negative or not required by law. Electronically signed by: Ta Ochoa M.D. 07/14/2023 1:47 PM Discharge Plan Visit Data Chief Complaint: Abnormal Labs/Diagnostic Testing Stated Complaint: ABNORMAL LABS ED Provider: Mitch Garcia Discharge Problem: Acute kidney injury superimposed on CKD, Acute hyponatremia, Dehydration, Acute UTI, Weakness, Hematuria Patient Disposition: Being Evaluated by Hospitalist Forms Stand Alone Forms: Carlie [facility] Prescriptions Prescriptions: No Action multivitamin [Multiple Vitamins] Tablet 1 tab PO QAM Qty: 0 olanzapine [Zyprexa] 10 mg Tablet 10 mg PO HS Qty: 0 Rx Instructions: TOTAL DOSE 30 MG--TAKES WITH 20 MG TAB. lamotrigine [Lamictal] 25 mg Tablet 25 mg PO BID Qty: 0 Rx Instructions: Take 1 tablet twice daily with 100mg twice daily lamotrigine [Lamictal] 100 mg Tablet 100 mg PO BID Qty: 0 Rx Instructions: Take 1 tablet twice daily with 25mg twice daily (DME) blood-glucose meter [OneTouch Ultra2 Meter] Misc See Rx Instructions .MEDSUPPLY Qty: 1 0RF Rx Instructions: Use to test blood glucose once daily; DX CODE- E11.9 (DME) OneTouch Ultra Blue Test Strip Strip See Rx Instructions .MEDSUPPLY Qty: 100 1RF Rx Instructions: Test blood glucose once daily; DX CODE- E11.9 (DME) lancets [OneTouch Delica Plus Lancet] 30 gauge misc See Rx Instructions .MEDSUPPLY Qty: 100 5RF Rx Instructions: Test blood glucose once daily; DX CODE- E11.9 (DME) Select Briefs Misc See Rx Instructions .Route Qty: 120 5RF Rx Instructions: As directed-patient needs Size Small atorvastatin 10 mg tablet 10 mg PO HS Qty: 90 1RF losartan 25 mg tablet 25 mg PO QAM Qty: 90 1RF montelukast 10 mg tablet 10 mg PO QAM Qty: 90 3RF omeprazole 20 mg capsule,delayed release(DR/EC) 20 mg PO QAM Qty: 90 1RF (DME) blood sugar diagnostic Strip See Rx Instructions .ROUTE .MEDSUPPLY Qty: 400 1RF Rx Instructions: Test 2 times per day; Dx code- E11.9 (DME) blood-glucose meter [OneTouch Ultra2 Meter] Misc See Rx Instructions .ROUTE .MEDSUPPLY Qty: 1 0RF Rx Instructions: TEST TWICE DAILY, DX CODE-E11.9 furosemide 40 mg tablet 40 mg PO DAILY tramadol 50 mg tablet 50 mg PO Q6H PRN ondansetron 4 mg tablet,disintegrating 4 mg PO Q8H cholecalciferol (vitamin D3) [Vitamin D3] 25 mcg (1,000 unit) Tablet 25 mcg PO QAM Januvia 25 mg tablet 25 mg PO QAM lorazepam 2 mg tablet 2 mg PO HS Rx Instructions: TOTAL DOSE 2.5-3 MG AT HS--TAKES WITH 0.5 MG TABS. lithium carbonate 300 mg tablet extended release 300 mg PO HS olanzapine 20 mg tablet 20 mg PO HS Rx Instructions: TOTAL DOSE 30 MG--TAKES WITH 10 MG TAB. diclofenac sodium [Voltaren Arthritis Pain] 1 % Gel 4 g EXT QID Qty: 100 0RF cyanocobalamin (vitamin B-12) 1,000 mcg tablet 1,000 mcg PO DAILY Qty: 30 0RF Referrals Referrals: [facility] [Primary Care Provider] -
[2023-07-14 13:21] LABS: Basophils # (auto) 0.02 K/uL (0.00-0.20); Basophils % (auto) 0.2 %; Hematocrit (blood only) 30.8 % (37.0-47.0); Lymphocytes # (auto) 0.66 K/uL (1.20-3.40); Lymphocytes % (auto) 6.7 %; Mean Corpuscular Hemoglobin 28.7 pg (25.0-34.0); Mean Corpuscular Hgb Conc 32.5 g/dL (32.0-36.0); Mean Corpuscular Volume 88.3 fL (80.0-100.0); Mean Platelet Volume 9.5 fL (9.4-12.4); Monocytes % (auto) 8.2 %; Neutrophils # (auto) 8.21 K/uL (1.40-6.50); Neutrophils % (auto) 83.9 %; Platelet Count 595 K/uL (130-400); RDW Coefficient of Variation 14.6 % (11.5-14.5); RDW Standard Deviation 47.1 fL (36.4-46.3); Red Blood Count 3.49 M/uL (4.20-5.40); White Blood Count 9.79 K/ul (4.8-10.8)
--- NOTE | 2023-07-14 13:33 | CT Scan Report ---
CT OF THE ABDOMEN AND PELVIS WITHOUT CONTRAST CLINICAL HISTORY: Acute kidney injury. COMPARISON STUDY: CT of the abdomen and pelvis December 19, 2021. Renal ultrasound August 25, 2022. TECHNIQUE: Axial images of the abdomen and pelvis were obtained without IV contrast. Images were revi ewed in the axial, sagittal, and coronal planes. Automated exposure control was utilized for the stefano dy. A dose lowering technique was utilized adhering to the principles of ALARA. FINDINGS: Lung bases are unremarkable. No pneumatosis, free air or portal venous gas is present. Ther e is moderate bilateral renal cortical thinning. There are no urinary calculi. There is no hydronephr osis or hydroureter. The bladder is moderately distended. There is mild bladder wall thickening. A sm all amount of layering material within the right posterolateral aspect the bladder is present. A 2.6 cm water attenuation right renal lesion is unchanged. This likely reflects a cyst. A few additional s uspected right renal cysts are present. Unenhanced images of the liver, spleen, right adrenal gland a nd pancreas are unremarkable. Nodularity of the left adrenal gland is unchanged. There is no evidence for a bowel obstruction. This exam is mildly compromised given difficulty positioning. There is no l ymphadenopathy. There are no fluid collections. No acute fractures or suspicious lesions within the v isualized skeletal structures are identified. IMPRESSION: 1. No urinary calculi or hydronephrosis. Moderate bilateral renal cortical thinning. 2. Distended bladder with mild bladder wall thickening. Small amount of layering hyperdense material within the bladder. This favors a small amount of hemorrhage although could be correlated with urinal ysis. 3. No bowel obstruction. No bowel wall thickening on unenhanced exam. ACT 112: Negative or not required by law. Electronically signed by: Armand Roland M.D. 07/14/2023 1:31 PM
--- NOTE | 2023-07-14 13:49 | CT Scan Report ---
HEAD CT NONCONTRAST CT DOSE: HISTORY: weak, confused, hiram TECHNIQUE: Multiaxial CT images of the head were performed without the use of intravenous contrast. A utomated exposure control was utilized for this study. A dose lowering technique was utilized adheri ng to the principles of ALARA. Comparison: Head CT 08/22/2021. Findings: The paranasal sinuses and mastoid air cells are clear. The calvarium and skull base are int act. The ventricles and sulci are within normal limits. There is no mass, hematoma, midline shift, or acute infarct. Impression: No acute intracranial abnormality. ACT 112: Negative or not required by law. Electronically signed by: Ta Ochoa M.D. 07/14/2023 1:47 PM
[2023-07-14 14:04] LABS: Albumin Level 3.2 gm/dl (3.4-5.0); Anion Gap 11 (3-11); Bilirubin,Total 0.2 mg/dl (0.2-1.0); Carbon Dioxide 25 mmol/L (21-32); Chloride 88 mmol/L (98-107); Potassium 5.1 mmol/L (3.5-5.1); Sodium 124 mmol/L (136-145)
[2023-07-14 14:10] LABS: Alanine Aminotransferase 30 U/L (7-52); Albumin Globulin Ratio 0.7 (0.9-2); Alkaline Phosphatase 168 U/L (34-104); Aspartate Aminotransferase 31 U/L (13-39); BUN Creatinine Ratio 15.5 (10-20); Blood Urea Nitrogen 67 mg/dl (6-23); Creatine Kinase 105 U/L (26-192); Est GFR (African American) 11.2 ml/min; Est GFR (Non-African American) 9.6 ml/min; Globulin 4.3 gm/dl (2.5-4.0); Glucose 190 mg/dl (70-99(Fasting)); Total Protein 7.5 gm/dl (6.0-8.3)
[2023-07-14 14:12] LABS: Troponin I High Sensitivity 12.8 pg/ml (0-14)
[2023-07-14] MEDS: SODIUM CHLORIDE 0.9% 500 ML IV SCH (14:23)
[2023-07-14 14:45] LABS: Appearance Urine Turbid (Clear); Bacteria Urine Automated Negative (Negative); Bilirubin Urine Negative (Negative); Blood Urine 3+ (Negative); Cast Urine Automated 0 /lpf (0-5); Color Urine Red; Epithelial Cell Urine Auto 0-5 /lpf (0-5); Glucose Urine UA Negative (Negative); Ketones Urine Negative (Negative); Leukocyte Esterase Urine 3+ (Negative); Nitrite Urine Negative (Negative); Specific Gravity Urine 1.006 (1.000-1.030); Urobilinogen Urine Negative (Negative); WBC Urine Automated >30 /hpf (0-5); pH Urine 7.5 (4.5-7.5)
--- NOTE | 2023-07-14 14:54 | XRay Report ---
XR chest 1V portable HISTORY: weakness COMPARISON: Chest and abdominal series 01/18/2022. FINDINGS: Slightly rotated study. No pneumothorax. No pleural effusions. The cardiac silhouette remai ns borderline enlarged. The lungs are clear. No evidence for pulmonary edema. No acute fractures. IMPRESSION: No acute process. ACT 112: Negative or not required by law. Electronically signed by: Ta Ochoa M.D. 07/14/2023 2:53 PM
[2023-07-14 15:04] LABS: Protein Urine 2+ (Negative)
[2023-07-14] MEDS: NovoLIN-R INSULIN PER UNIT CHARGE IV STA (15:16)
[2023-07-14] MEDS: CALCIUM GLUCONATE 1,000 MG/60 ML BAG IV STA (15:16)
[2023-07-14] MEDS: DEXTROSE 50% 50 ML SYRINGE IV ONE (15:17)
[2023-07-14] MEDS: cefTRIAXone SODIUM 2,000 MG/50 ML BAG IV STA (16:12)
[2023-07-14] MEDS: SODIUM CHLORIDE 0.9% 500 ML IV ONE (16:13)
[2023-07-14 16:14] LABS: Prothrombin Time 11.4 Seconds (9.0-12.0)
--- NOTE | 2023-07-14 16:18 | History & Physical Report ---
Date of Service July 14, 2023 Assessment & Plan (1) UTI (urinary tract infection): Plan: UTI Continue Rocephin, follow cultures -No leukocytosis, no hypotension. No evidence of Aniceto on CT Hematuria UA with blood, initial catheterization with maroon urine, leukocyte esterase, and bilateral thickening is present. No hydronephrosis. Urology consulted (2) Altered mental status: Plan: Altered mental status Multifactorial, history of multiple psychotropic medications for bipolar, profoundly volume depleted, also with concern for facial asymmetry on admission with normal CThead, possible underlying UTI MRI Noncon pending to R/o CVA Treatment of UTI as below Treatment of severe volume contraction as noted Not able to safely swallow p.o. meds at time of assessment. All p.o. meds held until mental status improved - She is not hypotensive, tachycardia improved with initial fluids. Does not have a leukocytosis or evidence of endorgan ischemia. Continue maintenance fluids with monitoring of sodium as otherwise noted. If patient becomes hyperchloremic or develops metabolic acidosis then transition to Plasma-Lyte (3) Hyponatremia: Plan: Hyponatremia -Urine sodium pending. DDx include SIADH with psychotropic medications and solute depletion with hypovolemic appearance and poor p.o. intake Clinically improving following normal saline resuscitation consistent with volume contraction and solute depletion. Will continue maintenance fluids, trend BMP Presenting sodium 122, BMP every 4 hours to monitor. If improves to more than 130 within 24 hours we will add dextrose to prevent over rapid correction (4) EKG abnormalities: Plan: EKG changes -EKG reviewed in ER, sinus tachycardia with acute territorial T wave inversions in lateral ST depressions suspicious for ischemia, no ST elevations Compared to EKG 12/2021, T waves also with a peaked appearance and slight widening of QRS. Patient with a potassium this morning of 5.4, starting to downtrend. Patient received insulin/dextrose, IVF, and calcium gluconate. Repeat labs pending. Limited historian. Initial troponin normal, repeat normal. Post fluid resuscitation with normalization of potassium and improvement in ischemic changes on repeat EKG Suspect demand Will follow on medical telemetry at this time (5) Acute kidney injury superimposed on CKD: Plan: SYLVAIN Baseline creatinine approximately 22.5 07/11 creatinine 4.62, admitting creatinine 4.6 Suspect prerenal Losartan held Previously with SYLVAIN with volume depletion CTA/P: Debris within the bladder and with hematuria suspicious for blood. No hydronephrosis. Lower suspicion for obstructive given lack of hydronephrosis. FeNa pending. Lasix held (6) Bipolar disorder: Plan: [place] level normal, nontoxic Oral meds held until patient cognition improved and able to swallow p.o. safely (7) COPD, mild: Plan: No evidence of acute exacerbation on admission, no wheezing, oxygen saturation normal (8) Schizoaffective disorder: Plan: Psychotropics as noted History of Present Illness Primary Care Provider: [facility] Brenda is a 73-year-old female with a past medical history of CKD 4, schizoaffective disorder, bipolar disorder, COPD, hyperparathyroidism, hyperlipidemia, DM 2, spondylolisthesis, and diastolic CHF on Lasix who presented to the ER from [place] [facility] with concern for worsening creatinine and hyponatremia. CTA/P shows distended bladder with thickening and hyperdense material? Hemor rhage, no hydronephrosis is appreciated. Rest x-ray is with no acute findings. In ER patient is somnolent with intermittent confusion . [place] level is 0.9, therapeutic and nontoxic on admission. Patient does not show any evidence of nephrogenic DI. Urine osmolality, serum osmolality, urine sodium are pending.? Solute depletion versus SIADH; clinically patient is volume contracted. Did receive Rocephin for potential underlying UTI with blood, leukocyte esterase in the urine sample. Patient seen in the ER. Initially with territorial ischemia and ST depressions new T wave inversions, and appeared extremely volume contracted. Patient is not able to give any meaningful history at the bedside. Following initial saline resuscitation patient with improved hyponatremia, normalization of potassium, downtrending tachycardia, and ischemic changes on EKG improved on repeat. Patient does not express any chest pain. Suspect this was demand ischemia with underlying UTI and severe volume contraction. Brenda seen at the bedside. Moves head and tracks with eyes but does not answer questions or give any meaningful history. Case was discussed with her surrogate decision maker Gabriel by phone. Reports that she is very hard of hearing but normally is able to engage in conversation and is oriented. Does not think she has been sick lately, but does know that they were concerned about her kidney function going up and her sodium being abnormal. No known history of cancer. Had not expressed any chest pain, chest pressure or problems with her heart in the past. Does note in an extreme circumstance that she had already passed or underwent cardio pulmonary arrest would want to be allowed to pass rather than have heroic measures/breathing tubes performed. Discussed that this would reflect DNR/DNI which is a change from prior CODE STATUS. Reports that in an extreme circumstance where her heart and breathing had already stopped DNR/DNI would be most consistent with her prior expressed wishes however he will also be in to talk to her at 1:00 tomorrow and if on further conversation wishes to change his back to full code will readdress at that time. Allergies Allergy/AdvReac Type Severity Reaction Status Date / Time latex Allergy Severe UNKNOWN Verified 08/31/22 13:20 aspirin Allergy Unknown UNKNOWN Verified 08/31/22 13:20 REACTION clozapine Allergy Unknown TOXIC Verified 08/31/22 13:20 REACTION codeine Allergy Unknown UNKNOWN Verified 08/31/22 13:20 REACTION ibuprofen Allergy Unknown UNKNOWN Verified 08/31/22 13:20 REACTION lurasidone Allergy Unknown TOXIC Verified 08/31/22 13:20 REACTION Penicillins Allergy Unknown UNKNOWN Verified 08/31/22 13:20 REACTION Sulfa (Sulfonamide Allergy Unknown UNKNOWN Verified 08/31/22 13:20 Antibiotics) REACTION Home Medications Medication Instructions Recorded Confirmed Type multivitamin (Multiple Vitamins 1 tab PO QAM ##0 11/17/17 08/31/22 History tablet) lamotrigine 100 mg tablet 100 mg PO BID ##0 12/30/17 08/31/22 History (Lamictal) lamotrigine 25 mg tablet (Lamictal) 25 mg PO BID ##0 12/30/17 08/31/22 History olanzapine 10 mg tablet (Zyprexa) 10 mg PO HS ##0 12/30/17 08/31/22 History blood sugar diagnostic (OneTouch #100 ea 08/25/20 08/31/22 Rx Ultra Blue Test Strip) blood-glucose meter (OneTouch #1 ea 08/25/20 08/31/22 Rx Ultra2 Meter) cholecalciferol (vitamin D3) 25 25 mcg PO QAM 08/26/20 08/31/22 History mcg (1,000 unit) tablet (Vitamin D3) atorvastatin 10 mg tablet 10 mg PO HS #90 tabs 03/09/21 08/31/22 Rx blood sugar diagnostic #400 ea 03/09/21 08/31/22 Rx blood-glucose meter (OneTouch #1 ea 03/09/21 08/31/22 Rx Ultra2 Meter) losartan 25 mg tablet 25 mg PO QAM #90 tabs 03/09/21 08/31/22 Rx montelukast 10 mg tablet 10 mg PO QAM #90 tabs 03/09/21 08/31/22 Rx omeprazole 20 mg capsule,delayed 20 mg PO QAM #90 caps 03/09/21 08/31/22 Rx release lancets 30 gauge (OneTouch Delica #100 ea 03/18/21 08/31/22 Rx Plus Lancet) lithium carbonate 300 mg 300 mg PO HS 08/02/21 08/31/22 History tablet,extended release lorazepam 2 mg tablet 2 mg PO HS 08/02/21 08/31/22 History olanzapine 20 mg tablet 20 mg PO HS 08/02/21 08/31/22 History diaper,brief,adult,disposable #120 ea 08/07/21 08/31/22 Rx (Select Briefs) sitagliptin phosphate 25 mg tablet 25 mg PO QAM 08/07/21 08/31/22 History (Januvia) cyanocobalamin (vitamin B-12) 1,000 mcg PO DAILY #30 tabs 08/31/21 08/31/22 Rx 1,000 mcg tablet diclofenac sodium 1 % topical gel 4 g EXT QID #100 grams 08/31/21 08/31/22 Rx (Voltaren Arthritis Pain) furosemide 40 mg tablet 40 mg PO DAILY 08/06/22 08/31/22 History ondansetron 4 mg disintegrating 4 mg PO Q8H 08/06/22 08/31/22 History tablet tramadol 50 mg tablet 50 mg PO Q6H PRN 08/06/22 08/31/22 History Past Med/Surg History Medical History Anxiety Asthma Bilateral edema of lower extremity Bipolar disorder Chronic diastolic CHF (congestive heart failure) CKD (chronic kidney disease) Deafness Depression GERD (gastroesophageal reflux disease) Hyperlipemia Hyperparathyroidism Osteoarthritis Osteoporosis Poor historian Schizoaffective disorder Spondylolisthesis Type II diabetes mellitus Surgical History History of cataract surgery History of tooth extraction History of tubal ligation Status post breast lumpectomy Family History Father Myocardial infarction Brother Rheumatoid arthritis Other Cancer Diabetes Heart disease Hypertension Lung disease Denies family history of Colon cancer Ovarian cancer Prostate cancer Breast cancer Social History Smoking Status: Unknown if ever smoked Tobacco Type: Cigarettes Second Hand Exposure: No; Do You Dip or Chew Tobacco: No; Hx Alcohol Use: Yes Hx Substance Use: No Preferred Language: Slovak Communication Ability Comment: pt [place] and uses white board to communicate Visual Impairment: Partially Limited 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 Required: No Beliefs That Will Affect Care: None marital status: Single Current Living Situation: Spouse current occupational status: disabled Feels Safe at Home: Yes Childhood Exposure to Second-Hand Smoke: No Diet: regular Dental Care, Regularly: No Physical Activity Frequency: 5-6 Times per Week Seatbelt Use: always Sunscreen Use: No Assistive Devices: Glasses and Walker Physical Exam Physical Exam: General: Tracks with eyes, does not answer questions HEENT: Patient with right-sided facial droop while laying on right side, does not follow commands and unable to assess strength or sensation. Pupils equal and reactive to light Pulm: CTAB A&P. -wheezes, -rales, -rhonchi. Symmetrical chest rise. No increased work of breathing. No respiratory distress. Cardiac: Regular, tachycardic. Radial pulses intact and symmetrical. Abdominal: Nontender, nondistended, soft. BS present. Extremities: Patient withdraws to noxious stimuli in the thumbs bilaterally, does not follow commands for sensation or strength testing Results & Data Results & Data Vital Signs (Past 12 Hours) Vital Signs Pulse Pulse Resp BP BP Pulse Ox O2 Del Method 07/14/23 16:11 99 H 20 129/81 96 Room Air 07/14/23 15:22 99 H 18 125/66 100 Room Air 07/14/23 12:55 99 Room Air 07/14/23 12:52 103 H 07/14/23 12:43 101 H 16 141/89 H 99 Room Air PG Care Time/CCT Total # of Minutes Spent Total Time Spent with Patient: Total time spent is greater than 50% in coordination of care (as documented) at patient's floor/unit and/or counseling patient: Coding Level of Care Code 37299 INT INP/OBS CARE MIN Diagnoses UTI (urinary tract infection) N39.0 Altered mental status R41.82 Hyponatremia E87.1 EKG abnormalities R94.31 Acute kidney injury superimposed on CKD N17.9; N18.9 Bipolar disorder F31.9 COPD, mild J44.9 Schizoaffective disorder F25.9
[2023-07-14 16:23] LABS: Anion Gap 9 (3-11); Calcium 9.7 mg/dl (8.6-10.3); Carbon Dioxide 28 mmol/L (21-32); Chloride 90 mmol/L (98-107); Potassium 4.8 mmol/L (3.5-5.1); Sodium 127 mmol/L (136-145)
[2023-07-14 16:28] LABS: BUN Creatinine Ratio 15.7 (10-20); Blood Urea Nitrogen 69 mg/dl (6-23); Est GFR (Non-African American) 9.5 ml/min; Glucose 146 mg/dl (70-99(Fasting))
--- NOTE | 2023-07-14 19:53 | Urology Consultation ---
Date of Consultation July 14, 2023 Assessment & Plan (1) Hematuria: The patient has been admitted on the hospital service. From a urologic standpoint we recommend the following: Exact cause of her hematuria is uncertain. May be related to underlying urinary tract infection. The patient has been placed on empiric Rocephin and urine cultures pending. Antibiotics be tailored based on these results. Patient CT scan was reviewed and there is no identifiable cause of her hematuria on the study Would recommend maintaining Ham catheter for accurate I's and O's particularly in the setting of hyponatremia and elevated creatinine. If patient's Ham catheter becomes clogged manual flushing and irrigation can be employed Determination of removing the patient's Ham will be dependent on clearing of her hematuria as well as how her renal function trends If the patient does require additional hematuria evaluation this can likely be pursued as an outpatient Supervising Physician Co-Signing Physician Notes I have discussed Ms. Medley's case with Yovani Fisher PA-C and agree with the above documentation. No obvious cause of hematuria on her CT scan. She will require full hematuria workup, however this can be performed as an outpatient. For the time being, would monitor urine output and maintain Ham catheter for now. If catheter becomes clogged, can hand irrigate as needed. Agree with antibiotics for presumed urinary tract infection. Can narrow as culture data becomes available. Urology will follow along. -Aureliano Stauffer MD. History of Present Illness Reason for Consultation: Hematuria History of Present Illness This is a 73-year-old female who was sent to [facility] from [place] care secondary to worsening creatinine and as well as hyponatremia. The patient was unable to provide any historical data and cannot engage in any meaningful conversation with me. She did not appear to be in any distress at the time of my exam. I specifically asked her if she has ever had any issues with hematuria before but she could not answer these questions. Since arrival to the hospital the patient has had labs and imaging which I independent reviewed. She did have a CT scan of the abdomen pelvis which showed no evidence of urinary calculi or hydronephrosis. There was some bilateral renal cortical thinning. The patient was noted to have a distended bladder with mild bladder wall thickening and a small amount of layering material felt to potentially be hemorrhagic products. There is no evidence of bowel obstruction. Chest x-ray showed no evidence of pneumonia. CT scan of the head showed no acute intracranial process. Labs included CBC her white blood cell count was normal. Her hemoglobin and hematocrit were 10.0 and 30.8. Platelet count was 595,000. (Of note, this level of hemoglobin and hematocrit are consistent with patient's baseline upon review of old records). Chemistry profile showed sodium was 127 with a normal potassium. BUN and creatinine were 69 and 4.3. Coagulation studies were normal. Urinalysis showed 3+ blood, 3+ leukocyte Estrace, pyuria with greater than 30 white blood cells per high-power field, and was negative for bacteria and nitrites. There is also no yeast noted on this study. At the time of my interview the patient was lying in bed and she did not appear to be in any distress. Allergies Allergy/AdvReac Type Severity Reaction Status Date / Time latex Allergy Severe UNKNOWN Verified 07/14/23 18:27 aspirin Allergy Unknown UNKNOWN Verified 07/14/23 18:27 REACTION clozapine Allergy Unknown TOXIC Verified 07/14/23 18:27 REACTION codeine Allergy Unknown UNKNOWN Verified 07/14/23 18:27 REACTION ibuprofen Allergy Unknown UNKNOWN Verified 07/14/23 18:27 REACTION lurasidone Allergy Unknown TOXIC Verified 07/14/23 18:27 REACTION Penicillins Allergy Unknown UNKNOWN Verified 07/14/23 18:27 REACTION Sulfa (Sulfonamide Allergy Unknown UNKNOWN Verified 07/14/23 18:27 Antibiotics) REACTION Home Medications Medication Instructions Recorded Confirmed Type multivitamin (Multiple Vitamins 1 tab PO QAM ##0 11/17/17 07/14/23 History tablet) blood sugar diagnostic (OneTouch #100 ea 08/25/20 08/31/22 Rx Ultra Blue Test Strip) blood-glucose meter (OneTouch #1 ea 08/25/20 08/31/22 Rx Ultra2 Meter) cholecalciferol (vitamin D3) 25 25 mcg PO QAM 08/26/20 07/14/23 History mcg (1,000 unit) tablet (Vitamin D3) atorvastatin 10 mg tablet 10 mg PO HS #90 tabs 03/09/21 07/14/23 Rx blood sugar diagnostic #400 ea 03/09/21 08/31/22 Rx blood-glucose meter (OneTouch #1 ea 03/09/21 08/31/22 Rx Ultra2 Meter) omeprazole 20 mg capsule,delayed 20 mg PO QAM #90 caps 03/09/21 07/14/23 Rx release lancets 30 gauge (OneTouch Delica #100 ea 03/18/21 08/31/22 Rx Plus Lancet) lithium carbonate 300 mg 300 mg PO 3XWK 08/02/21 07/14/23 History tablet,extended release diaper,brief,adult,disposable #120 ea 08/07/21 08/31/22 Rx (Select Briefs) sitagliptin phosphate 25 mg tablet 25 mg PO QAM 08/07/21 07/14/23 History (Januvia) diclofenac sodium 1 % topical gel 4 g EXT QID #100 grams 08/31/21 07/14/23 Rx (Voltaren Arthritis Pain) ondansetron 4 mg disintegrating 4 mg PO Q8H PRN Nausea And Vomiting 08/06/22 07/14/23 History tablet tramadol 50 mg tablet 100 mg PO TID 08/06/22 07/14/23 History acetaminophen 325 mg tablet 650 mg PO QID PRN Fever Or Pain 07/14/23 07/14/23 History (Tylenol) benzocaine 20 % mucosal gel 1 applic mucous membrane Q6H PRN 07/14/23 07/14/23 History (Anbesol (benzocaine) Maximum .MOUTH PAIN Strength) cariprazine 3 mg capsule (Vraylar) 3 mg PO BID 07/14/23 07/14/23 History cyanocobalamin (vitamin B-12) 1,000 mcg PO QAM 07/14/23 07/14/23 History 1,000 mcg tablet diclofenac sodium 1 % topical gel 1 ea topical QID 07/14/23 07/14/23 History lamotrigine 150 mg tablet 150 mg PO BID 07/14/23 07/14/23 History lorazepam 0.5 mg tablet 0.5 mg PO QPM ANXIETY 07/14/23 07/14/23 History lorazepam 1 mg tablet 2 mg PO HS 07/14/23 07/14/23 History mineral oil-isopropyl myristat 1 applic topical BID 07/14/23 07/14/23 History lotion montelukast 10 mg tablet 10 mg PO HS 07/14/23 07/14/23 History olanzapine 20 mg tablet 20 mg PO DAILY 07/14/23 07/14/23 History olanzapine 5 mg tablet (Zyprexa) 5 mg PO QAM 07/14/23 07/14/23 History polyethylene glycol 3350 17 17 g PO QAM 07/14/23 07/14/23 History gram/dose oral powder (Miralax) Patient History Medical History Anxiety Asthma Bilateral edema of lower extremity Bipolar disorder Chronic diastolic CHF (congestive heart failure) CKD (chronic kidney disease) Deafness Depression GERD (gastroesophageal reflux disease) Hyperlipemia Hyperparathyroidism Osteoarthritis Osteoporosis Poor historian Schizoaffective disorder Spondylolisthesis Type II diabetes mellitus Surgical History History of cataract surgery History of tooth extraction History of tubal ligation Status post breast lumpectomy Family History Father Myocardial infarction Brother Rheumatoid arthritis Other Cancer Diabetes Heart disease Hypertension Lung disease Denies family history of Colon cancer Ovarian cancer Prostate cancer Breast cancer Social History Smoking Status: Never smoker Tobacco Type: Cigarettes Second Hand Exposure: No; Do You Dip or Chew Tobacco: No; Hx Alcohol Use: No Hx Substance Use: No Preferred Language: Georgian Communication Ability: Unable Communication Ability Comment: pt [place] and uses white board to communicate Visual Impairment: Partially Limited Hearing Ability: Python Consultant Required: No Beliefs That Will Affect Care: None marital status: Single Current Living Situation: Personal Care Facility Current Living Situation Comment: [facility] current occupational status: disabled Feels Safe at Home: Yes Childhood Exposure to Second-Hand Smoke: No Diet: regular Dental Care, Regularly: No Physical Activity Frequency: 5-6 Times per Week Seatbelt Use: always Sunscreen Use: No Assistive Devices: Wheelchair Review of Systems Review of Systems: Unobtainable due to cognitive status Physical Exam Constitutional: no acute distress ENMT: Ears: no hearing impairment Neck: trachea midline Respiratory: normal respiratory effort; no respiratory distress and no labored breathing Cardiovascular: Rate/Rhythm: regular rate and regular rhythm Gastrointestinal (Abdomen): Abdomen is soft. Palpation did not appear to elicit painful response Musculoskeletal: No calf tenderness Skin: no rashes Neurologic: moves all extremities Genitourinary: No CVA tenderness with percussion bilaterally. The patient did have a Ham catheter in place draining bloody urine that had the consistency of Fernando-Aid. There is a few blood clots noted in the tubing/collection bag. The catheter did appear patent and was draining appropriately. Results & Data Vital Signs (Past 12 Hours) Vital Signs Pulse Pulse Resp BP BP Pulse Ox O2 Del Method 07/14/23 19:27 103 H 18 107/62 99 Room Air 07/14/23 16:53 97 H 07/14/23 16:11 99 H 20 129/81 96 Room Air 07/14/23 15:22 99 H 18 125/66 100 Room Air 07/14/23 12:55 99 Room Air 07/14/23 12:52 103 H 07/14/23 12:43 101 H 16 141/89 H 99 Room Air PG Care Time/CCT Total # of Minutes Spent Total Time Spent with Patient: Total time spent is greater than 50% in coordination of care (as documented) at patient's floor/unit and/or counseling patient: Coding Level of Care Code 73475 INT INP/OBS CARE 3/75MIN Diagnoses Hematuria R31.9
[2023-07-14 21:06] LABS: BUN Creatinine Ratio 16.7 (10-20); Calcium 9.2 mg/dl (8.6-10.3); Creatinine Clr Calc Pharmacy 10.3 ml/min; Est GFR (African American) 12.4 ml/min; Est GFR (Non-African American) 10.7 ml/min; Potassium 4.8 mmol/L (3.5-5.1)
--- NOTE | 2023-07-15 00:08 | Magnetic Resonance Report ---
Exam(s): MRI HEAD Without Contrast EXAM: MR Head Without Intravenous Contrast CLINICAL HISTORY: Reason for exam: facial droop, r/o CVA. TECHNIQUE: Magnetic resonance images of the head/brain without intravenous contrast in multiple planes. COMPARISON: No relevant prior studies available. FINDINGS: Brain: No mass. No hemorrhage. No acute infarct. Ventricles: Unremarkable. No ventriculomegaly. Bones/joints: Unremarkable. No acute fracture. Sinuses: Unremarkable as visualized. No acute sinusitis. Mastoid air cells: Unremarkable as visualized. No mastoid effusion. Orbits: Unremarkable as visualized. IMPRESSION: No acute intracranial finding. Electronically signed by: Leland Kitchen MD 07/15/23 00:07 AM
[2023-07-15 05:05] LABS: Basophils # (auto) 0.01 K/uL (0.00-0.20); Basophils % (auto) 0.1 %; Hematocrit (blood only) 32.2 % (37.0-47.0); Hemoglobin 10.4 g/dl (12.0-16.0); Immature Granulocytes # (auto) 0.15 K/uL (0.01-0.20); Immature Granulocytes % (auto) 1.6 %; Lymphocytes # (auto) 0.61 K/uL (1.20-3.40); Lymphocytes % (auto) 6.4 %; Mean Corpuscular Hemoglobin 28.5 pg (25.0-34.0); Mean Corpuscular Hgb Conc 32.3 g/dL (32.0-36.0); Mean Corpuscular Volume 88.2 fL (80.0-100.0); Mean Platelet Volume 9.2 fL (9.4-12.4); Monocytes # (auto) 0.65 K/uL (0.11-0.59); Monocytes % (auto) 6.8 %; Neutrophils # (auto) 8.07 K/uL (1.40-6.50); Neutrophils % (auto) 85.1 %; Platelet Count 687 K/uL (130-400); RDW Coefficient of Variation 14.5 % (11.5-14.5); RDW Standard Deviation 46.6 fL (36.4-46.3); Red Blood Count 3.65 M/uL (4.20-5.40); White Blood Count 9.49 K/ul (4.8-10.8)
[2023-07-15] MEDS: LORazepam 1 MG/1 ML SYR ED Inj Use IV STA (05:16)
[2023-07-15 05:23] LABS: BUN Creatinine Ratio 16.2 (10-20); Calcium 9.4 mg/dl (8.6-10.3); Creatinine Clr Calc Pharmacy 10.9 ml/min; Est GFR (African American) 13.2 ml/min; Est GFR (Non-African American) 11.4 ml/min; Potassium 4.4 mmol/L (3.5-5.1)
[2023-07-15] MEDS ORDERED: CARIPRAZINE HCL 3 MG CAP PO SCH (09:00)
--- NOTE | 2023-07-15 09:12 | Urology Progress Note ---
Date of Service July 15, 2023 Assessment & Plan (1) Hematuria: (2) UTI (urinary tract infection): Plan: Follow-up of hematuria Ham draining appropriately Urine is clear this morning Maintain Ham catheter at this time Continue with antibiotics for presumed infection Urine culture 07/12 showed 3 types of organisms present, all moderate counts Culture prior to admission on 07/10 showed group B beta strep and 20k cfu of Proteus mirabilis Urine culture 07/13 is pending, if inconclusive then recommend treat based on 07/10 C&S Recommend hematuria work-up as an outpatient Continue supportive care and medical management per hospital medicine Urology will sign off, please contact our service with any additional questions/concerns Admission and Anticipated Discharge Date Admission Date: July 14, 2023 Subjective Patient seen and examined in the emergency department She is awake and resting in bed Ham patent draining clear yellow urine She is interactive but unable to answer my questions or provide meaningful history She tells me she is hard of hearing Review of Systems Review of Systems: Unobtainable due to cognitive status Physical Exam Constitutional: comfortable; no acute distress Respiratory: normal respiratory effort; no respiratory distress and no labored breathing Gastrointestinal (Abdomen): Inspection/Auscultation: abdomen normal to inspection Neurologic: moves all extremities and awake Psychiatric: Orientation: oriented to person Genitourinary: Ham patent draining clear yellow urine Results & Data Vital Signs (Past 12 Hours) Vital Signs Pulse Pulse Resp BP BP Pulse Ox Pulse Ox 07/15/23 07:08 99 H 07/15/23 03:00 99 H 18 102/60 95 07/14/23 22:01 102 H 16 99/55 L 07/14/23 21:24 96 O2 Del Method 07/15/23 07:08 07/15/23 03:00 07/14/23 22:01 07/14/23 21:24 Room Air PG Care Time/CCT Total # of Minutes Spent Total Time Spent with Patient: Total time spent is greater than 50% in coordination of care (as documented) at patient's floor/unit and/or counseling patient: Coding Level of Care Code 44251 SUB INP/OBS CARE 25MIN Diagnoses Hematuria R31.9 UTI (urinary tract infection) N39.0
[2023-07-15] MEDS: OLANZapine 5 MG TABLET PO SCH (10:05)
[2023-07-15] MEDS: OLANZapine 20 MG TABLET PO SCH (10:05)
[2023-07-15] MEDS: lamoTRIgine 100 MG TAB PO SCH (10:05)
[2023-07-15] MEDS: LORazepam 0.5 MG TAB PO SCH (14:39)
[2023-07-15] MEDS: cefTRIAXone SODIUM 2,000 MG in DEXTROSE 5 % MINI-B 50 ML IV SCH (14:39)
--- NOTE | 2023-07-15 18:45 | Hospitalist Progress Note ---
Date of Service July 15, 2023 Assessment & Plan (1) Acute kidney injury superimposed on CKD: Plan: Baseline creatinine approximately 22.5 07/11 creatinine 4.62 from outpatient labs, admitting creatinine 4.6 CTA/P: Debris within the bladder and with hematuria suspicious for blood. No hydronephrosis BUN/creatinine ratio not significantly elevated, but certainly some prerenal component possibly postobstructive as well as she had urinary retention. Also in the setting of taking losartan, Lasix and UTI Creatinine improving down to 3.7 today with IV fluids and Ham catheter placement Continue IV fluids Continue to hold losartan and Lasix Follow BMP (2) UTI (urinary tract infection): Plan: Urine culture from 07/10 with group B strep and Proteus mirabilis Urine culture from 07/12 mixed organisms and from 07/13 negative preliminary Appreciate urology consultation Continue Rocephin, follow cultures but would treat based on culture from 07/10 She had leukocytosis on 07/11, no hypotension, no fever. No pyelonephritis on CT Hematuria likely secondary to [id number] with urology as an outpatient for hematuria workup (3) Hyponatremia: Plan: Severe, with acute encephalopathy and sodium 122 on admission Urine sodium low at 21 and had been taking Lasix Urine osmolality greater than 100 at 151 indicating increased ADH production Most likely from hypovolemia Sodium has now improved to 135 with normal saline fluid hydration and improvement in renal failure Follow BMP Holding volume depleting agents such as Lasix Hold tramadol in case component of SIADH Continue IV normal saline (4) Altered mental status: Plan: Acute encephalopathy-secondary to hyponatremia, renal failure, and UTI-now completely resolved normal CThead, MRI brain negative for CVA Continue IV fluid hydration, and treatment of UTI as below Supportive care (5) EKG abnormalities: Plan: Initial EKG with sinus tachycardia with acute territorial T wave inversions in lateral ST depressions suspicious for ischemia, no ST elevations but with LVH with polarization Compared to EKG 12/2021, T waves also with a peaked appearance and slight widening of QRS. Patient with a potassium of 5.4 on admission and now normal ized After she received insulin/dextrose, IVF, and calcium gluconate. Troponin 12 and 10, not elevated Repeat ECG improved after IV fluid hydration and resolution of tachycardia (6) Bipolar disorder: Plan: [place] level normal, nontoxic Oral meds held until patient cognition improved and able to swallow p.o. safely- will resume meds now (7) COPD, mild: Plan: No evidence of acute exacerbation on admission, no wheezing, oxygen saturation normal (8) Schizoaffective disorder: Plan: Psychotropics as noted (9) Diabetes mellitus type 2, controlled: Plan: Last hemoglobin A1c in the normal range No need for supplemental insulin here or Accu-Cheks Holding home Januvia and likely does not need to resume Plan DVT prophylaxis-add heparin SQ as hematuria has resolved Disposition-continued stay on med/tele Admission and Anticipated Discharge Date Admission Date: July 14, 2023 Subjective Patient hard of hearing but is feeling better, does not remember getting Ham catheter. Is eating and drinking now, pleasant. Physical Exam Constitutional: WD/WN, vitals as above Respiratory: normal respiratory effort, lungs clear to auscultation Cardiovascular: RRR, no murmur, no edema Gastrointestinal (Abdomen): normal bowel sounds, soft, nontender, no hepatosplenomegaly Genitourinary: Ham catheter in place draining clear yellow urine Results & Data Results & Data Vital Signs (Past 12 Hours) Vital Signs Temp Pulse Pulse Pulse Resp BP BP 07/15/23 18:10 104 H 07/15/23 16:25 37 C 103 H 18 07/15/23 15:05 113 H 07/15/23 15:00 105 H 17 129/58 L 07/15/23 09:30 99 H 25 H 07/15/23 09:00 100 H 22 07/15/23 08:30 97 H 27 H 128/79 07/15/23 08:00 101 H 18 07/15/23 07:30 97 H 22 07/15/23 07:08 99 H 07/15/23 07:00 98 H 19 BP Pulse Ox O2 Del Method 07/15/23 18:10 07/15/23 16:25 154/84 H 95 Room Air 07/15/23 15:05 07/15/23 15:00 95 Room Air 07/15/23 09:30 80 L 07/15/23 09:00 07/15/23 08:30 07/15/23 08:00 93 07/15/23 07:30 95 07/15/23 07:08 07/15/23 07:00 100 Laboratory Results CBC, BMP, troponin, LFTs reviewed PG Care Time/CCT Total # of Minutes Spent Total Time Spent with Patient: Total time spent is greater than 50% in coordination of care (as documented) at patient's floor/unit and/or counseling patient: Coding Level of Care Code 17125 SUB INP/OBS CARE 3/50MIN Diagnoses Acute kidney injury superimposed on CKD N17.9; N18.9 UTI (urinary tract infection) N39.0 Hyponatremia E87.1 Altered mental status R41.82 EKG abnormalities R94.31 Bipolar disorder F31.9 COPD, mild J44.9 Schizoaffective disorder F25.9 Controlled type 2 diabetes mellitus with stage 3 chronic kidney disease, without long-term current use of insulin E11.22; N18.30 Diabetes mellitus terminal makeup operator insulin use: without prison use Diabetes mellitus complication status: with kidney complications Diabetes mellitus complication detail: with chronic kidney disease Chronic kidney disease stage: stage 3 (moderate) (9) Diabetes mellitus type 2, controlled Diabetes mellitus terminal makeup operator insulin use: without prison use Diabetes mellitus complication status: with kidney complications Diabetes mellitus complication detail: with chronic kidney disease Chronic kidney disease stage: stage 3 (moderate) Qualified Code(s): E11.22 - Type 2 diabetes mellitus with diabetic chronic kidney disease; N18.30 - Chronic kidney disease, stage 3 unspecified
[2023-07-15] MEDS: LITHIUM CARBONATE SLOW REL 300 MG TAB PO SCH (20:08)
[2023-07-15] MEDS: MONTELUKAST SODIUM 10 MG TABLET PO SCH (20:09)
[2023-07-15] MEDS: ATORVASTATIN 10 MG TAB PO SCH (20:09)
[2023-07-15] MEDS: HEPARIN SOD 5,000 UNIT/0.5 ML VIAL SQ SCH (20:09)
[2023-07-15] MEDS: LORazepam 1 MG TAB PO SCH (20:15)
--- NOTE | 2023-07-16 06:46 | Electrocardiogram Report ---
Test Reason : Blood Pressure : / mmHG Vent. Rate : 101 BPM Atrial Rate : 101 BPM P-R Int : 166 ms QRS Dur : 118 ms QT Int : 364 ms P-R-T Axes : 028 044 195 degrees QTc Int : 471 ms Sinus tachycardia Left ventricular hypertrophy with QRS widening and repolarization abnormality Abnormal ECG When compared with ECG of 17-JAN-2022 22:49, ST now depressed in Lateral leads T wave inversion now evident in Inferior leads T wave inversion now evident in Lateral leads Confirmed by Luan Oleary ([id number]) on 07/16/2023 6:46:50 AM Referred By: Confirmed By:Luan Oleary
--- NOTE | 2023-07-16 07:05 | Electrocardiogram Report ---
Test Reason : Blood Pressure : / mmHG Vent. Rate : 104 BPM Atrial Rate : 104 BPM P-R Int : 152 ms QRS Dur : 132 ms QT Int : 378 ms P-R-T Axes : 045 054 144 degrees QTc Int : 497 ms Sinus tachycardia Left ventricular hypertrophy with QRS widening and repolarization abnormality Abnormal ECG When compared with ECG of 14-JUL-2023 12:50, T wave inversion less evident in Inferior leads Confirmed by Luan Oleary ([id number]) on 07/16/2023 7:05:05 AM Referred By: [facility] Confirmed By:Luan Oleary
[2023-07-16 08:59] LABS: BUN Creatinine Ratio 16.8 (10-20); Calcium 9.1 mg/dl (8.6-10.3); Creatinine Clr Calc Pharmacy 14.6 ml/min; Est GFR (African American) 18.9 ml/min; Est GFR (Non-African American) 16.3 ml/min; Potassium 3.8 mmol/L (3.5-5.1)
[2023-07-16 09:14] LABS: Basophils # (auto) 0.03 K/uL (0.00-0.20); Basophils % (auto) 0.3 %; Eosinophils # (auto) 0.01 K/uL (0.00-0.50); Eosinophils % (auto) 0.1 %; Hematocrit (blood only) 32.9 % (37.0-47.0); Hemoglobin 9.9 g/dl (12.0-16.0); Immature Granulocytes # (auto) 0.43 K/uL (0.01-0.20); Lymphocytes % (auto) 8.4 %; Mean Corpuscular Hemoglobin 27.8 pg (25.0-34.0); Mean Corpuscular Hgb Conc 30.1 g/dL (32.0-36.0); Mean Corpuscular Volume 92.4 fL (80.0-100.0); Mean Platelet Volume 9.4 fL (9.4-12.4); Monocytes # (auto) 0.74 K/uL (0.11-0.59); Monocytes % (auto) 6.9 %; Neutrophils # (auto) 8.61 K/uL (1.40-6.50); Neutrophils % (auto) 80.3 %; Platelet Count 650 K/uL (130-400); RDW Coefficient of Variation 14.9 % (11.5-14.5); RDW Standard Deviation 49.9 fL (36.4-46.3); Red Blood Count 3.56 M/uL (4.20-5.40); White Blood Count 10.72 K/ul (4.8-10.8)
[2023-07-16] MEDS: PANTOprazole 40 MG TAB PO SCH (09:35)
[2023-07-16] MEDS: CHOLECALCIFEROL 25 MCG (1000 UNITS) TAB PO SCH (09:35)
[2023-07-16] MEDS: CYANOCOBALAMIN (B-12) 500 MCG TABLET PO SCH (09:35)
[2023-07-16] MEDS: MULTIVITAMIN TAB PO SCH (09:35)
[2023-07-16] MEDS: POLYETHYLENE (MIRALAX) 17 GM PACK PO SCH (09:36)
[2023-07-16] MEDS: ACETAMINOPHEN 325 MG TAB PO PRN (11:47)
--- NOTE | 2023-07-16 18:46 | Hospitalist Progress Note ---
Date of Service July 16, 2023 Assessment & Plan (1) Acute kidney injury superimposed on CKD: Plan: Baseline creatinine approximately 22.5, CKD 2/2 lithium tx as per Nephro 07/11 creatinine 4.62 from outpatient labs, admitting creatinine 4.6 CTA/P: Debris within the bladder and with hematuria suspicious for blood. No hydronephrosis BUN/creatinine ratio not significantly elevated, but certainly some prerenal component possibly postobstructive as well as she had urinary retention. Also in the setting of taking losartan, Lasix and UTI Creatinine continues to improve down to 2.8 with IV fluids and Ham catheter placement Continue IV fluids Continue to hold losartan and Lasix Follow BMP (2) UTI (urinary tract infection): Plan: Urine culture from 07/10 with group B strep and Proteus mirabilis Urine culture from 07/12 mixed organisms and from 07/13 negative preliminary Appreciate urology consultation Continue Rocephin, follow cultures but would treat based on culture from 07/10 She had leukocytosis on 07/11, no hypotension, no fever. No pyelonephritis on CT Hematuria likely secondary to [id number] with urology as an outpatient for hematuria workup (3) Hyponatremia: Plan: Severe, with acute encephalopathy and sodium 122 on admission Urine sodium low at 21 and had been taking Lasix Urine osmolality greater than 100 at 151 indicating increased ADH production Most likely from hypovolemia Sodium has now improved to 141 with normal saline fluid hydration and improvement in renal failure Follow BMP Holding volume depleting agents such as Lasix ok to resume lower dose of tramadol in case component of SIADH Continue IV normal saline (4) Altered mental status: Plan: Acute encephalopathy-secondary to hyponatremia, renal failure, and UTI-now completely resolved normal CThead, MRI brain negative for CVA Continue IV fluid hydration, and treatment of UTI as below Supportive care (5) EKG abnormalities: Plan: Initial EKG with sinus tachycardia with acute territorial T wave inversions in lateral ST depressions suspicious for ischemia, no ST elevations but with LVH with polarization Compared to EKG 12/2021, T waves also with a peaked appearance and slight widening of QRS. Patient with a potassium of 5.4 on admission and now normalized After she received insulin/dextrose, IVF, and calcium gluconate. Troponin 12 and 10, not elevated Repeat ECG improved after IV fluid hydration and resolution of tachycardia can downgrade off tele (6) Bipolar disorder: Plan: [place] level normal, nontoxic continue home meds (7) COPD, mild: Plan: No evidence of acute exacerbation on admission, no wheezing, oxygen saturation normal (8) Schizoaffective disorder: Plan: Psychotropics as noted (9) Diabetes mellitus type 2, controlled: Plan: Last hemoglobin A1c in the normal range No need for supplemental insulin here or Accu-Cheks Holding home Januvia and likely does not need to resume Plan DVT prophylaxis- heparin SQ as hematuria has resolved Disposition-continued stay but can downgrade to medical, dc to [facility] tomorrow if continues to improve Admission and Anticipated Discharge Date Admission Date: July 14, 2023 Anticipated date of discharge: 07/17/23 Subjective Pt having pain in upper back and neck, has not been getting her usual tramadol. She is in good spirits. Did vomit after lunch but then was eating dinner when I saw her. Tele with NSR, rates 70-80s Physical Exam Constitutional: WD/WN, vitals as above Respiratory: normal respiratory effort, lungs clear to auscultation Cardiovascular: RRR, no murmur, no edema Gastrointestinal (Abdomen): normal bowel sounds, soft, nontender, no hepatosplenomegaly Results & Data Results & Data Vital Signs (Past 12 Hours) Vital Signs Temp Pulse Pulse Resp BP Pulse Ox O2 Del Method 07/16/23 15:26 37.0 C 71 18 156/83 H 96 Room Air 07/16/23 15:00 85 07/16/23 11:16 36.8 C 95 H 18 156/89 H 98 Room Air 07/16/23 07:32 36.9 C 83 18 150/78 H 98 Room Air 07/16/23 07:11 89 Laboratory Results CBC< BMP reviewed Ur cx reviewed PG Care Time/CCT Total # of Minutes Spent Total Time Spent with Patient: Total time spent is greater than 50% in coordination of care (as documented) at patient's floor/unit and/or counseling patient: Coding Level of Care Code 73905 SUB INP/OBS CARE 2/35MIN Diagnoses Acute kidney injury superimposed on CKD N17.9; N18.9 UTI (urinary tract infection) N39.0 Hyponatremia E87.1 Altered mental status R41.82 EKG abnormalities R94.31 Bipolar disorder F31.9 COPD, mild J44.9 Schizoaffective disorder F25.9 Controlled type 2 diabetes mellitus with stage 3 chronic kidney disease, without long-term current use of insulin E11.22; N18.30 Diabetes mellitus nursing home insulin use: without termite control representative use Diabetes mellitus complication status: with kidney complications Diabetes mellitus complication detail: with chronic kidney disease Chronic kidney disease stage: stage 3 (moderate) (9) Diabetes mellitus type 2, controlled Diabetes mellitus nursing home insulin use: without nursing home use Diabetes mellitus complication status: with kidney complications Diabetes mellitus complication detail: with chronic kidney disease Chronic kidney disease stage: stage 3 (moderate) Qualified Code(s): E11.22 - Type 2 diabetes mellitus with diabetic chronic kidney disease; N18.30 - Chronic kidney disease, stage 3 unspecified
[2023-07-17] MEDS ORDERED: traMADol HCL 50 MG TABLET PO PRN (00:05)
[2023-07-17] MEDS: DICLOFENAC SOD 1% GEL 100 GM TUBE EXT SCH (00:41)
[2023-07-17 06:52] LABS: Hematocrit (blood only) 32.2 % (37.0-47.0); Hemoglobin 9.9 g/dl (12.0-16.0); Mean Corpuscular Hemoglobin 28.8 pg (25.0-34.0); Mean Corpuscular Hgb Conc 30.7 g/dL (32.0-36.0); Mean Corpuscular Volume 93.6 fL (80.0-100.0); Mean Platelet Volume 9.2 fL (9.4-12.4); Platelet Count 635 K/uL (130-400); RDW Standard Deviation 51.1 fL (36.4-46.3); Red Blood Count 3.44 M/uL (4.20-5.40); White Blood Count 12.32 K/ul (4.8-10.8)
[2023-07-17 07:11] LABS: Basophils # (auto) 0.04 K/uL (0.00-0.20); Basophils % (auto) 0.3 %; Immature Granulocytes # (auto) 0.73 K/uL (0.01-0.20); Immature Granulocytes % (auto) 5.9 %; Lymphocytes # (auto) 0.74 K/uL (1.20-3.40); Monocytes # (auto) 0.64 K/uL (0.11-0.59); Monocytes % (auto) 5.2 %; Neutrophils # (auto) 10.17 K/uL (1.40-6.50); Neutrophils % (auto) 82.6 %
[2023-07-17 07:15] LABS: BUN Creatinine Ratio 15.7 (10-20); Calcium 9.5 mg/dl (8.6-10.3); Creatinine Clr Calc Pharmacy 17.8 ml/min; Est GFR (African American) 24.1 ml/min; Est GFR (Non-African American) 20.8 ml/min; Potassium 3.9 mmol/L (3.5-5.1)
--- NOTE | 2023-07-17 13:51 | Discharge Summary ---
Discharge Summary Date of Service July 17, 2023 Notes For Next Care Provider Medication Changes From Visit Added Keflex 250mg po bid x 4 more days Admission HPI Per Admitting Provider Brenda is a 73-year-old female with a past medical history of CKD 4, schizoaffective disorder, bipolar disorder, COPD, hyperparathyroidism, hyperlipidemia, DM 2, spondylolisthesis, and diastolic CHF on Lasix who presented to the ER from [place] [facility] with concern for worsening creatinine and hyponatremia. CTA/P shows distended bladder with thickening and hyperdense material? Hemorrhage, no hydronephrosis is appreciated. Rest x-ray is with no acute findings. In ER patient is somnolent with intermittent confusion . [place] level is 0.9, therapeutic and nontoxic on admission. Patient does not show any evidence of nephrogenic DI. Urine osmolality, serum osmolality, urine sodium are pending.? Solute depletion versus SIADH; clinically patient is volume contracted. Did receive Rocephin for potential underlying UTI with blood, leukocyte esterase in the urine sample. Patient seen in the ER. Initially with territorial ischemia and ST depressions new T wave inversions, and appeared extremely volume contracted. Patient is not able to give any meaningful history at the bedside. Following initial saline resuscitation patient with improved hyponatremia, normalization of potassium, do wntrending tachycardia, and ischemic changes on EKG improved on repeat. Patient does not express any chest pain. Suspect this was demand ischemia with underlying UTI and severe volume contraction. Brenda seen at the bedside. Moves head and tracks with eyes but does not answer questions or give any meaningful history. Case was discussed with her surrogate decision maker Gabriel by phone. Reports that she is very hard of hearing but normally is able to engage in conversation and is oriented. Does not think she has been sick lately, but does know that they were concerned about her kidney function going up and her sodium being abnormal. No known history of cancer. Had not expressed any chest pain, chest pressure or problems with her heart in the past. Does note in an extreme circumstance that she had already passed or underwent cardio pulmonary arrest would want to be allowed to pass rather than have heroic measures/breathing tubes performed. Discussed that this would reflect DNR/DNI which is a change from prior CODE STATUS. Reports that in an extreme circumstance where her heart and breathing had already stopped DNR/DNI would be most consistent with her prior expressed wishes however he will also be in to talk to her at 1:00 tomorrow and if on further conversation wishes to change his back to full code will readdress at that time. Principal Dx & Hospital Course #1 = Principal Diagnosis (1) Acute kidney injury superimposed on CKD: Baseline creatinine approximately 22.5, CKD 2/2 lithium tx as per Nephro 07/11 creatinine 4.62 from outpatient labs, admitting creatinine 4.6 CTA/P: Debris within the bladder and with hematuria suspicious for blood. No hydronephrosis BUN/creatinine ratio not significantly elevated, but certainly some prerenal component possibly postobstructive as well as she had urinary retention. Also in the setting of taking losartan, Lasix and UTI Creatinine continues to improve down to 2.2 with IV fluids and Ham catheter placement dcd IVFs Follow BMP as outpt (2) UTI (urinary tract infection): Urine culture from 07/10 with group B strep and Proteus mirabilis Urine culture from 07/12 mixed organisms and from 07/13 negative Appreciate urology consultation Received Rocephin based on culture from 07/10 and convert to po Keflex to finish out 7 day course after discharge (needs 4 more days) She had leukocytosis on 07/11 and again 07/16 with elevated platelets-both likely reactive to anemia and also stress from some stefan; no hypotension, no fever. No pyelonephritis on CT Hematuria likely secondary to [id number] with urology as an outpatient for hematuria workup-resolved Maintain Ham and f/u with Urology (3) Hyponatremia: Severe, with acute encephalopathy and sodium 122 on admission Urine sodium low at 21 Urine osmolality greater than 100 at 151 indicating increased ADH production Most likely from hypovolemia Sodium has now improved to 145 with normal saline fluid hydration and improvement in renal failure Follow BMP as outpt ok to resume tramadol (4) Altered mental status: Acute encephalopathy-secondary to hyponatremia, renal failure, and UTI-now completely resolved but is a bit manic at time of discharge likely from not receiving her usual Vraylar while here due to med being non-formulary normal CThead, MRI brain negative for CVA received IV fluid hydration, and treatment of UTI as below Supportive care Resume Vraylar at SNF f/u with Psych (5) EKG abnormalities: Initial EKG with sinus tachycardia with acute territorial T wave inversions in lateral ST depressions suspicious for ischemia, no ST elevations but with LVH with polarization Compared to EKG 12/2021, T waves also with a peaked appearance and slight widening of QRS. Patient with a potassium of 5.4 on admission and now normalized After she received insulin/dextrose, IVF, and calcium gluconate. Troponin 12 and 10, not elevated Repeat ECG improved after IV fluid hydration and resolution of tachycardia no events on tele (6) Bipolar disorder: [place] level normal, nontoxic continue home meds, resume Vraylar CAL at SNF (7) COPD, mild: No evidence of acute exacerbation on admission, no wheezing, oxygen saturation normal (8) Schizoaffective disorder: Psychotropics as noted (9) Diabetes mellitus type 2, controlled: Last hemoglobin A1c in the normal range No need for supplemental insulin here or Accu-Cheks Holding home Januvia and likely does not need to resume-defer to PCP Plan DVT prophylaxis- heparin SQ as hematuria has resolved Disposition- dc to [facility] Discharge Exam Constitutional WD/WN, vitals as above Respiratory normal respiratory effort, lungs clear to auscultation Cardiovascular RRR, no murmur, no edema Gastrointestinal (Abdomen) normal bowel sounds, soft, nontender, no hepatosplenomegaly Psychiatric Orientation: alert, oriented to person and oriented to place Speech: + loud speech Affect: + labile affect Updated Medication List Medication Instructions Recorded Confirmed Type multivitamin (Multiple Vitamins 1 tab PO QAM ##0 11/17/17 07/14/23 History tablet) blood sugar diagnostic (OneTouch #100 ea 08/25/20 08/31/22 Rx Ultra Blue Test Strip) blood-glucose meter (OneTouch #1 ea 08/25/20 08/31/22 Rx Ultra2 Meter) cholecalciferol (vitamin D3) 25 25 mcg PO QAM 08/26/20 07/14/23 History mcg (1,000 unit) tablet (Vitamin D3) atorvastatin 10 mg tablet 10 mg PO HS #90 tabs 03/09/21 07/14/23 Rx blood sugar diagnostic #400 ea 03/09/21 08/31/22 Rx blood-glucose meter (OneTouch #1 ea 03/09/21 08/31/22 Rx Ultra2 Meter) omeprazole 20 mg capsule,delayed 20 mg PO QAM #90 caps 03/09/21 07/14/23 Rx release lancets 30 gauge (OneTouch Delica #100 ea 03/18/21 08/31/22 Rx Plus Lancet) lithium carbonate 300 mg 300 mg PO 3XWK 08/02/21 07/14/23 History tablet,extended release diaper,brief,adult,disposable #120 ea 08/07/21 08/31/22 Rx (Select Briefs) sitagliptin phosphate 25 mg tablet 25 mg PO QAM 08/07/21 07/14/23 History (Januvia) diclofenac sodium 1 % topical gel 4 g EXT QID #100 grams 08/31/21 07/14/23 Rx (Voltaren Arthritis Pain) ondansetron 4 mg disintegrating 4 mg PO Q8H PRN Nausea And Vomiting 08/06/22 07/14/23 History tablet tramadol 50 mg tablet 100 mg PO TID 08/06/22 07/14/23 History acetaminophen 325 mg tablet 650 mg PO QID PRN Fever Or Pain 07/14/23 07/14/23 History (Tylenol) benzocaine 20 % mucosal gel 1 applic mucous membrane Q6H PRN 07/14/23 07/14/23 History (Anbesol (benzocaine) Maximum .MOUTH PAIN Strength) cariprazine 3 mg capsule (Vraylar) 3 mg PO BID 07/14/23 07/14/23 History cyanocobalamin (vitamin B-12) 1,000 mcg PO QAM 07/14/23 07/14/23 History 1,000 mcg tablet diclofenac sodium 1 % topical gel 1 ea topical QID 07/14/23 07/14/23 History lamotrigine 150 mg tablet 150 mg PO BID 07/14/23 07/14/23 History lorazepam 0.5 mg tablet 0.5 mg PO QPM ANXIETY 07/14/23 07/14/23 History lorazepam 1 mg tablet 2 mg PO HS 07/14/23 07/14/23 History mineral oil-isopropyl myristat 1 applic topical BID 07/14/23 07/14/23 History lotion montelukast 10 mg tablet 10 mg PO HS 07/14/23 07/14/23 History olanzapine 20 mg tablet 20 mg PO DAILY 07/14/23 07/14/23 History olanzapine 5 mg tablet (Zyprexa) 5 mg PO QAM 07/14/23 07/14/23 History polyethylene glycol 3350 17 17 g PO QAM 07/14/23 07/14/23 History gram/dose oral powder (Miralax) cephalexin 250 mg capsule 250 mg PO BID #8 caps 07/17/23 Rx Hospital Stay Data Consultations 07/14/23 15:37 ED Decision to Admit Stat 07/14/23 16:53 Consult Urology Routine Diagnostic Imagining Performed 07/14/23 12:55 CT abd pelvis wo con Stat CT head/brain wo con Stat 07/14/23 16:51 MRI Brain [MR brain wo con] Routine Pending Results Patient Have Any Pending Studies at Discharge: No Discharge Instructions Given to Patient (Per Discharging Provider) Please continue on the antibiotic for 3 more days. Keep the Ham catheter in place and follow up with Urology. Please follow BMP for your renal function. Total Time Total Time Spent Total Time Spent (In Minutes): 35 min Total Time Includes: Examination of the Patient, Discharge Planning and Medication Reconciliation Coding Level of Care Code 19419 INP/OBS DISCH >30 MIN Diagnoses Acute kidney injury superimposed on CKD N17.9; N18.9 UTI (urinary tract infection) N39.0 Hyponatremia E87.1 Altered mental status R41.82 EKG abnormalities R94.31 Bipolar disorder F31.9 COPD, mild J44.9 Schizoaffective disorder F25.9 Controlled type 2 diabetes mellitus with stage 3 chronic kidney disease, without long-term current use of insulin E11.22; N18.30 Diabetes mellitus lobsterman insulin use: without senior living use Diabetes mellitus complication status: with kidney complications Diabetes mellitus complication detail: with chronic kidney disease Chronic kidney disease stage: stage 3 (moderate)
== END 2023-07-17 14:31 | DRG 689 ==
LOC: ED 12:42 → EDINP 16:41 → SUATTDRO 16:41 → 2W 20:59 → 3W 07-16 23:42

== ENCOUNTER 2023-12-28 19:44 | Inpatient (IN) ==
[2023-12-28] MEDS: SODIUM CHLORIDE 0.9% 500 ML IV SCH (20:16)
--- NOTE | 2023-12-28 20:19 | Emergency Department Note ---
Impression & Plan Psychosis, Anemia, Right hand fracture, Acute head trauma, Rhabdomyolysis, Acute dehydration, Elevated troponin, CRF (chronic renal failure) ED Provider Note NAME: JENNIFER LAGUERRE AGE: 73 SEX: F : 1950 ARRIVES VIA: Ambulance INFORMANT: [nursing] ED PROVIDER(S): [Matias Alejandre MD] CHIEF COMPLAINT: Mental health evaluation HISTORY OF PRESENT ILLNESS: The patient is a 73-year-old female who was brought to the hospital for manic and aggressive behavior. She has been hitting [place] with her head and extremities. She does have a history of bipolar disease. This behavior has been occurring for 4 days. There was report that she may have fractured her right hand, this is now in an Yandel wrap. As per the report, she is taking her medications. The patient cannot give me any history. She moans and groans and is a very poor historian. As per the ED nursing staff, the patient seems dehydrated. PMHx/PSHx/Social Hx: See Below PHYSICAL EXAM: GENERAL: Patient is in no acute distress. HEENT: Mucous membranes are dry. The patient does have an older appearing contusion to the lateral aspect of the left eyebrow. No bony step-off NECK: No stridor, no adenopathy, no meningismus, trachea is midline. LUNGS: Clear to auscultation bilaterally, no wheeze, no rhonchi, breath sounds equal. HEART: Without murmurs gallops or rubs, regular rate and rhythm. ABDOMEN: Soft, nontender, no peritonitis. EXTREMITIES: No cyanosis. The patient has contusion about the right hand, this hand is swollen and in an Yandel wrap. There are contusions to both anterior knees which appear older. No gross deformity to the lower extremities. NEUROLOGIC: Moves all extremities, poor historian, basically moaning. SKIN: No jaundice, no diaphoresis. Back: Nontender thoracic or lumbar spine, no step-offs or contusion seen. DIFFERENTIAL DIAGNOSIS: Intracranial bleeding, dehydration, UTI, electrolyte imbalance, psychosis, among others. EMERGENCY DEPARTMENT PROCEDURES: Splint Care: After the ortho glass splint was placed by the strategic business development, I examined the splint and confirmed proper application/placement/position. Neurovascular status was intact both proximal and distal to the splinted area. MEDICAL DECISION MAKING: There is no leukocytosis but the patient is anemic however, this is a chronic finding when looking back at previous testing. There was a normal platelet count. There was evidence for some dehydration with an elevation to the creatinine above her baseline. No electrolyte abnormality requiring emergent correction. No concerning liver enzyme elevation. Total CK was elevated consistent with some mild rhabdomyolysis. ECG showed a normal sinus rhythm, no ST elevation. Cardiac enzyme testing x 1 was slightly elevated. This elevation could be secondary to cardiac injury or just mismatch. Patient appeared to be in a euthyroid state. Urinalysis did not show findings of infection. [place] level was not toxic. COVID test was negative. Chest film showed a poor inspiration, no obvious focal infiltrate. Brain CT showed no acute bleed or mass effect. Right hand and wrist films were performed. There was a proximal second metacarpal fracture seen. No wrist fracture. The patient became a bit aggressive here and was given 1 mg of IV Haldol, this seemed to work nicely to control her agitation. She received a 500 cc saline bolus. The patient had the right hand/wrist splinted to protect the fractured metacarpal. The patient was sent here for psychosis however, she is not medically stable. She will require a hospital stay on the medical service. Once stabilized, she can potentially be transferred to a psychiatric facility. Patient is currently doing well. She is resting. She does not seem in pain. I did speak with case management, the on-call hospitalist was consulted. I did speak briefly with the attending physician at [facility], we discussed the case. Prior/Outside records/notes reviewed: [facility] describing her presentation and the need for an ED referral. ECG per my interpretation: Indication was altered mental state. The ECG shows a normal sinus rhythm with a rate of 83. There is some nonspecific ST change. There is no acute ST elevation, no PVCs. QTc is 500. Imaging/x-ray results per my interpretation: Chest x-ray does not show mediastinal widening, pneumonia or CHF. There is a poor inspiratory effort. Right wrist and hand films show a proximal second metacarpal fracture. Chronic Medical/Social conditions affecting care: Advanced age, history of bipolar disease. Care/Management discussed with: Case management, the on-call hospitalist. [facility] attending physician-Dr. Juarez Level of care consideration(s): After review of the information above and other included data: --I believe the patient requires escalation of care to admission Critical Care Note: I have personally spent 46 minutes of critical care time in the direct management of this patient. This includes bedside care, interpretation of diagnostic studies, and testing, discussion with consultants, patient, and family members, and other required patient management activities. This 46 minutes is in excess of all separately billable procedures. DISPOSITION: Admission Past Med/Surg History Problem List (Updated 12/29/23 @ 00:51 by Matias Alejandre MD) CRF (chronic renal failure) (Acute) Elevated troponin (Acute) Acute dehydration (Acute) Rhabdomyolysis (Acute) Acute head trauma (Acute) Right hand fracture (Acute) Anemia (Acute) Psychosis (Acute) Anemia (Acute) Hypertension Renal cyst UTI (urinary tract infection) Bipolar disorder Chronic kidney disease, stage 4 (severe) Acute kidney injury Right hip pain Unable to care for self (Acute) Fall (Acute) CHI (closed head injury) (Acute) Dysuria Ankle pain, right Back pain (Acute) Multiple falls (Acute) Generalized weakness (Acute) Behavior safety risk (Acute) Pharyngitis Colon cancer screening Encounter for pre-operative examination Bilateral ankle pain Knee pain, bilateral Spondylolisthesis at L5-S1 level Urinary incontinence Diabetes mellitus type 2, controlled (Acute 02/09/13) Benign essential hypertension (Acute) Schizoaffective disorder (Acute) Stage III chronic kidney disease (Acute) Vitamin D deficiency (Acute) SNHL (sensorineural hearing loss) (Acute) Polyarthritis (Acute) Multinodular thyroid (Acute) Mobility impaired (Acute) Low TSH level (Acute) [place] use (Acute) Hyperparathyroidism (Acute) Hypercholesterolemia (Acute) High serum thyroglobulin (Acute) Hiatal hernia (Acute) Gastroesophageal reflux disease (Acute) Elevated alkaline phosphatase level (Acute) Edema (Acute) Eczema (Acute) Chronic lower back pain (Acute) Chronic diarrhea (Acute) COPD, mild (Acute) Bipolar I disorder, single manic episode (Acute) Asthma (Acute) Abnormal mammogram (Acute) Frequent falls (Acute) Anemia (Acute) Gait disturbance Schizoaffective disorder Deafness Chronic diastolic CHF (congestive heart failure) per record; fiance could not confirm. does not follow with certifier Depression (Acute) Medical History History of COVID-19 unsure when, per [place] [facility] record EKG abnormalities Spondylolisthesis CKD (chronic kidney disease) stage 4 Anxiety GERD (gastroesophageal reflux disease) Osteoporosis Osteoarthritis Asthma no inh Bipolar disorder Hyperparathyroidism Type II diabetes mellitus NIDDM Hyperlipemia Surgical History History of colonoscopy History of tooth extraction History of cataract surgery Status post breast lumpectomy History of tubal ligation Family History Father Myocardial infarction Brother Rheumatoid arthritis Other Cancer Diabetes Heart disease Hypertension Lung disease Denies family history of Colon cancer Ovarian cancer Prostate cancer Breast cancer Social History Smoking Status: Never smoker Tobacco Type: Cigarettes Second Hand Exposure: No; Do You Dip or Chew Tobacco: No; Hx Alcohol Use: No Hx Substance Use: No Preferred Language: Swedish Communication Ability: Impaired Communication Ability Comment: per facility pt unable to sign consents, will need POA to sign Visual Impairment: Partially Limited Hearing Ability: Document Management Analyst Required: No Beliefs That Will Affect Care: None marital status: Single Current Living Situation: [facility] Current Living Situation Comment: [facility] current occupational status: disabled Feels Safe at Home: Yes Childhood Exposure to Second-Hand Smoke: No Diet: regular Dental Care, Regularly: No Physical Activity Frequency: 5-6 Times per Week Seatbelt Use: always Sunscreen Use: No Assistive Devices: Wheelchair Allergies Allergies Allergy/AdvReac Type Severity Reaction Status Date / Time clozapine Allergy Severe TOXIC Verified 12/28/23 22:25 REACTION lurasidone Allergy Severe TOXIC Verified 12/28/23 22:25 REACTION aspirin Allergy Unknown UNKNOWN Verified 12/28/23 22:25 REACTION ibuprofen Allergy Unknown UNKNOWN Verified 12/28/23 22:25 REACTION latex Allergy Unknown UNKNOWN Verified 12/28/23 22:25 Penicillins Allergy Unknown UNKNOWN Verified 12/28/23 22:25 REACTION Sulfa (Sulfonamide Allergy Unknown UNKNOWN Verified 12/28/23 22:25 Antibiotics) REACTION Home Meds Home Medications Medication Instructions Recorded Confirmed multivitamin (Multiple Vitamins 1 tab PO QAM ##0 11/17/17 12/28/23 tablet) cholecalciferol (vitamin D3) 25 25 mcg PO QAM 08/26/20 12/28/23 mcg (1,000 unit) tablet (Vitamin D3) lithium carbonate 300 mg 300 mg PO 3XWK 08/02/21 12/28/23 tablet,extended release sitagliptin phosphate 25 mg tablet 25 mg PO QAM 08/07/21 12/28/23 (Januvia) ondansetron 4 mg disintegrating 4 mg PO Q6 PRN Nausea And Vomiting 08/06/22 12/28/23 tablet tramadol 50 mg tablet 100 mg PO TIDM 08/06/22 12/28/23 acetaminophen 325 mg tablet 650 mg PO QID PRN Fever Or Pain 07/14/23 12/28/23 (Tylenol) benzocaine 20 % mucosal gel 1 applic mucous membrane Q6H PRN 07/14/23 12/28/23 (Anbesol (benzocaine) Maximum Mouth Pain Strength) cariprazine 3 mg capsule (Vraylar) 3 mg PO BIDM 07/14/23 12/28/23 cyanocobalamin (vitamin B-12) 1,000 mcg PO QAM 07/14/23 12/28/23 1,000 mcg tablet diclofenac sodium 1 % topical gel 1 ea topical QID 07/14/23 12/28/23 lamotrigine 150 mg tablet 150 mg PO BIDM 07/14/23 12/28/23 lorazepam 1 mg tablet 1 mg PO Q6H 07/14/23 12/28/23 montelukast 10 mg tablet 10 mg PO HS 07/14/23 12/28/23 olanzapine 20 mg tablet 20 mg PO QDD 07/14/23 12/28/23 olanzapine 5 mg tablet (Zyprexa) 5 mg PO QAM 07/14/23 12/28/23 bisacodyl 10 mg rectal suppository 10 mg [place] DAILY PRN Constipation 08/23/23 12/28/23 (Dulcolax (bisacodyl)) lorazepam 1 mg tablet 1 mg PO DIRECTED PRN 08/23/23 12/28/23 TORSTEN/AGITATION magnesium hydroxide 400 mg/5 mL 30 ml PO DAILY 08/23/23 12/28/23 oral suspension (Milk of Magnesia) sodium phosphates 19 gram-7 118 ml [place] DAILY PRN Constipation 08/23/23 12/28/23 gram/118 mL enema (Fleet Enema) divalproex 250 mg tablet,delayed 250 mg PO BIDM 12/28/23 12/28/23 release (Depakote) mineral oil-isopropyl myristat 1 applic topical BID 12/28/23 12/28/23 lotion Previous Rx's Medication Instructions Recorded blood sugar diagnostic (OneTouch #100 ea 08/25/20 Ultra Blue Test Strip) blood-glucose meter (OneTouch #1 ea 08/25/20 Ultra2 Meter) atorvastatin 10 mg tablet 10 mg PO HS #90 tabs 03/09/21 blood sugar diagnostic #400 ea 03/09/21 blood-glucose meter (OneTouch #1 ea 03/09/21 Ultra2 Meter) omeprazole 20 mg capsule,delayed 20 mg PO QAM #90 caps 03/09/21 release lancets 30 gauge (OneTouch Delica #100 ea 03/18/21 Plus Lancet) diaper,brief,adult,disposable #120 ea 08/07/21 (Select Briefs) diclofenac sodium 1 % topical gel 4 g EXT QID #100 grams 08/31/21 (Voltaren Arthritis Pain) Results & Data (ED) Vital Signs Vital Signs - 24 hr 12/28/23 19:30 12/28/23 21:43 12/28/23 23:00 Temperature 36.8 C Temperature Source Oral Pulse Rate 80 76 Pulse Rate [Finger] 87 Pulse Rate from SpO2 Sensor 76 Respiratory Rate 16 16 15 Respiratory Effort / Characteristics Non-Labored Non-Labored Respiratory Depth Normal Normal Blood Pressure 118/72 108/47 L Blood Pressure [Left Arm] 135/87 Blood Pressure Mean 87 67 Blood Pressure Mean [Left Arm] 103 Pulse Oximetry 100 97 96 Oxygen Delivery Method Room Air Room Air Room Air Sepsis Recent Fever Within 48 Hours No Sepsis New/Unexplained Change in Mental Status No Sepsis Action Taken by Nursing No Action Required 12/28/23 23:03 Temperature Temperature Source Pulse Rate 76 Pulse Rate [Finger] Pulse Rate from SpO2 Sensor Respiratory Rate 16 Respiratory Effort / Characteristics Respiratory Depth Blood Pressure Blood Pressure [Left Arm] Blood Pressure Mean Blood Pressure Mean [Left Arm] Pulse Oximetry 98 Oxygen Delivery Method Room Air Sepsis Recent Fever Within 48 Hours Sepsis New/Unexplained Change in Mental Status Sepsis Action Taken by [facility] Medications Current Medication List: was personally reviewed by me Laboratory Data Attestation: I reviewed the patient's lab results. 12/28/23 19:58 12/28/23 19:58 Lab Results 12/28/23 12/28/23 12/28/23 Range/Units 19:58 20:25 21:45 WBC 6.64 (4.8-10.8) K/ul RBC 3.44 L (4.20-5.40) M/uL Hgb 9.9 L (12.0-16.0) g/dl Hct 32.3 L (37.0-47.0) % MCV 93.9 (80.0-100.0) fL MCH 28.8 (25.0-34.0) pg MCHC 30.7 L (32.0-36.0) g/dL RDW Std Deviation 52.0 H (36.4-46.3) fL RDW Coeff of Rachel 15.1 H (11.5-14.5) % Plt Count 234 (130-400) K/uL MPV 10.5 (9.4-12.4) fL Immature Gran % (Auto) 0.6 % Neut % (Auto) 70.9 % Lymph % (Auto) 16.1 % [place] % (Auto) 12.2 % Eos % (Auto) 0.0 % Baso % (Auto) 0.2 % Neut # (Auto) 4.71 (1.40-6.50) K/uL Lymph # (Auto) 1.07 L (1.20-3.40) K/uL [place] # (Auto) 0.81 H (0.11-0.59) K/uL Eos # (Auto) 0.00 (0.00-0.50) K/uL Baso # (Auto) 0.01 (0.00-0.20) K/uL Immature Gran # (Auto) 0.04 (0.01-0.20) K/uL Sodium 136 (136-145) mmol/L Potassium 4.0 (3.5-5.1) mmol/L Chloride 100 (98-107) mmol/L Carbon Dioxide 28 (21-32) mmol/L Anion Gap 8 (3-11) BUN 26 H (6-23) mg/dl Creatinine 2.74 H (0.6-1.2) mg/dl Est Cr Clr Drug Dosing 15.5 ml/min Est GFR ( Amer) 19.4 ml/min Est GFR (Non-Af Amer) 16.7 ml/min BUN/Creatinine Ratio 9.5 L (10-20) Glucose 104 H (70-99(Fasting)) mg/dl Calcium 8.4 L (8.6-10.3) mg/dl Magnesium 2.4 (1.7-2.4) mg/dl Total Bilirubin 0.3 (0.2-1.0) mg/dl AST 21 (13-39) U/L ALT 17 (7-52) U/L Alkaline Phosphatase 105 H (34-104) U/L Total Creatine Kinase 717 H (26-192) U/L Troponin I High Sens 29.1 H (0-14) pg/ml Total Protein 6.6 (6.0-8.3) gm/dl Albumin 3.7 (3.4-5.0) gm/dl Globulin 2.9 (2.5-4.0) gm/dl Albumin/Globulin Ratio 1.3 (0.9-2) TSH 0.838 (0.300-4.500) uIu/ml Urine Color Yellow Urine Appearance Clear (Clear) Urine pH 6.0 (4.5-7.5) Ur Specific [place] 1.007 (1.000-1.030) Urine Protein 2+ H (Negative) Urine Glucose (UA) Negative (Negative) Urine Ketones Negative (Negative) Urine Blood 2+ H (Negative) Urine Nitrite Negative (Negative) Urine Bilirubin Negative (Negative) Urine Urobilinogen Negative (Negative) Ur Leukocyte Esterase 2+ H (Negative) Urine WBC (Auto) 6-10 H (0-5) /hpf Urine RBC (Auto) 0-2 (0-2) /hpf U Hyaline Cast (Auto) 3-5 H (0-2) /lpf U Epithel Cells (Auto) 0-2 (0-2) /hpf Urine Bacteria (Auto) None Seen (None Seen) [place] 0.4 L (0.6-1.2) mmol/L SARS-CoV-2, RNA, NAAT NEGATIVE (NEGATIVE) 12/28/23 Range/Units 22:05 WBC (4.8-10.8) K/ul RBC (4.20-5.40) M/uL Hgb (12.0-16.0) g/dl Hct (37.0-47.0) % MCV (80.0-100.0) fL MCH (25.0-34.0) pg MCHC (32.0-36.0) g/dL RDW Std Deviation (36.4-46.3) fL RDW Coeff of Rachel (11.5-14.5) % Plt Count (130-400) K/uL MPV (9.4-12.4) fL Immature Gran % (Auto) % Neut % (Auto) % Lymph % (Auto) % [place] % (Auto) % Eos % (Auto) % Baso % (Auto) % Neut # (Auto) (1.40-6.50) K/uL Lymph # (Auto) (1.20-3.40) K/uL [place] # (Auto) (0.11-0.59) K/uL Eos # (Auto) (0.00-0.50) K/uL Baso # (Auto) (0.00-0.20) K/uL Immature Gran # (Auto) (0.01-0.20) K/uL Sodium (136-145) mmol/L Potassium (3.5-5.1) mmol/L Chloride (98-107) mmol/L Carbon Dioxide (21-32) mmol/L Anion Gap (3-11) BUN (6-23) mg/dl Creatinine (0.6-1.2) mg/dl Est Cr Clr Drug Dosing ml/min Est GFR ( Amer) ml/min Est GFR (Non-Af Amer) ml/min BUN/Creatinine Ratio (10-20) Glucose (70-99(Fasting)) mg/dl Calcium (8.6-10.3) mg/dl Magnesium (1.7-2.4) mg/dl Total Bilirubin (0.2-1.0) mg/dl AST (13-39) U/L ALT (7-52) U/L Alkaline Phosphatase (34-104) U/L Total Creatine Kinase (26-192) U/L Troponin I High Sens 28.5 H (0-14) pg/ml Total Protein (6.0-8.3) gm/dl Albumin (3.4-5.0) gm/dl Globulin (2.5-4.0) gm/dl Albumin/Globulin Ratio (0.9-2) TSH (0.300-4.500) uIu/ml Urine Color Urine Appearance (Clear) Urine pH (4.5-7.5) Ur Specific [place] (1.000-1.030) Urine Protein (Negative) Urine Glucose (UA) (Negative) Urine Ketones (Negative) Urine Blood (Negative) Urine Nitrite (Negative) Urine Bilirubin (Negative) Urine Urobilinogen (Negative) Ur Leukocyte Esterase (Negative) Urine WBC (Auto) (0-5) /hpf Urine RBC (Auto) (0-2) /hpf U Hyaline Cast (Auto) (0-2) /lpf U Epithel Cells (Auto) (0-2) /hpf Urine Bacteria (Auto) (None Seen) [place] (0.6-1.2) mmol/L SARS-CoV-2, RNA, NAAT (NEGATIVE) Administered Medications Discontinued Medications Haloperidol Lactate (Haloperidol Lactate 5 Mg/Ml 1 Ml Vial) 1 mg IV NOW STA Stop: 12/28/23 20:50 Last Admin: 12/28/23 20:57 Dose: 1 mg Documented By: Sodium Chloride (Nss) 500 mls @ 999 mls/hr IV .Q31M GEORGE Stop: 12/28/23 20:45 Last Infusion: 12/28/23 20:43 Dose: Infused Documented By: Admin: 12/28/23 20:16 Dose: 999 mls/hr Documented By: Imaging Data Radiologist's Impression: Head CT 12/28/23 20:11 Exam(s): CT HEAD Without Contrast EXAM: CT Head Without Intravenous Contrast CLINICAL HISTORY: Reason for exam: trauma. TECHNIQUE: Axial computed tomography images of the head/brain without intravenous contrast. CTDI is 35.51 mGy and DLP is 546.36 mGy-cm. Automated exposure control was utilized for the study. A dose lowering technique was utilized adhering to the principles of ALARA. COMPARISON: No relevant prior studies available. FINDINGS: Brain: Age-related cerebral volume loss. Periventricular and subcortical white matter hypoattenuation, consistent with chronic microangiopathy. No acute intracranial hemorrhage. No midline shift or mass effect. Ventricles: Unremarkable. No ventriculomegaly. Bones/joints: Unremarkable. No acute fracture. Soft tissues: Unremarkable. Sinuses: Unremarkable as visualized. No acute sinusitis. Mastoid air cells: Unremarkable as visualized. No mastoid effusion. IMPRESSION: No acute intracranial hemorrhage. No midline shift or mass effect. Electronically signed by: Talat Ramos MD 12/28/23 23:56 PM Discharge Plan Visit Data Chief Complaint: Mental Health Evaluation Stated Complaint: AMS ED Provider: Matias Alejandre Discharge Problem: Psychosis, Anemia, Right hand fracture, Acute head trauma, Rhabdomyolysis, Acute dehydration, Elevated troponin, CRF (chronic renal failure) Patient Disposition: Admitted As Inpatient Condition: Fair Discharge Problem: Psychosis Qualifiers: Psychosis type: unspecified psychosis type Qualified Code(s): F29 - Unspecified psychosis not due to a substance or known physiological condition Anemia Qualifiers: Anemia type: unspecified type Qualified Code(s): D64.9 - Anemia, unspecified Right hand fracture Qualifiers: Encounter type: initial encounter Fracture type: closed Qualified Code(s): S 62.91XA - Unspecified fracture of right wrist and hand, initial encounter for closed fracture Acute head trauma Qualifiers: Encounter type: initial encounter Qualified Code(s): S09.90XA - Unspecified injury of head, initial encounter Rhabdomyolysis Qualifiers: Rhabdomyolysis type: traumatic Encounter type: initial encounter Qualified Code(s): T79.6XXA - Traumatic ischemia of muscle, initial encounter CRF (chronic renal failure) Qualifiers: Chronic kidney disease stage: unspecified stage Qualified Code(s): N18.9 - Chronic kidney disease, unspecified
[2023-12-28 20:49] LABS: Albumin Globulin Ratio 1.3 (0.9-2); Albumin Level 3.7 gm/dl (3.4-5.0); BUN Creatinine Ratio 9.5 (10-20); Bilirubin,Total 0.3 mg/dl (0.2-1.0); Calcium 8.4 mg/dl (8.6-10.3); Creatinine Clr Calc Pharmacy 15.5 ml/min; Est GFR (African American) 19.4 ml/min; Est GFR (Non-African American) 16.7 ml/min; Globulin 2.9 gm/dl (2.5-4.0); Magnesium 2.4 mg/dl (1.7-2.4); Total Protein 6.6 gm/dl (6.0-8.3)
[2023-12-28 20:56] LABS: Troponin I High Sensitivity 29.1 pg/ml (0-14)
[2023-12-28] MEDS: HALOPERIDOL LACTATE 5 MG/ML 1 ML VIAL IV STA (20:57)
[2023-12-28 21:05] LABS: Thyroid Stimulating Hormone 0.838 uIu/ml (0.300-4.500)
[2023-12-28 21:10] LABS: Basophils # (auto) 0.01 K/uL (0.00-0.20); Basophils % (auto) 0.2 %; Hematocrit (blood only) 32.3 % (37.0-47.0); Hemoglobin 9.9 g/dl (12.0-16.0); Immature Granulocytes # (auto) 0.04 K/uL (0.01-0.20); Immature Granulocytes % (auto) 0.6 %; Lymphocytes # (auto) 1.07 K/uL (1.20-3.40); Lymphocytes % (auto) 16.1 %; Mean Corpuscular Hemoglobin 28.8 pg (25.0-34.0); Mean Corpuscular Hgb Conc 30.7 g/dL (32.0-36.0); Mean Corpuscular Volume 93.9 fL (80.0-100.0); Mean Platelet Volume 10.5 fL (9.4-12.4); Monocytes # (auto) 0.81 K/uL (0.11-0.59); Monocytes % (auto) 12.2 %; Neutrophils # (auto) 4.71 K/uL (1.40-6.50); Neutrophils % (auto) 70.9 %; Platelet Count 234 K/uL (130-400); RDW Coefficient of Variation 15.1 % (11.5-14.5); Red Blood Count 3.44 M/uL (4.20-5.40); White Blood Count 6.64 K/ul (4.8-10.8)
[2023-12-28 22:14] LABS: Appearance Urine Clear (Clear); Bacteria Urine Automated None Seen (None Seen); Bilirubin Urine Negative (Negative); Blood Urine 2+ (Negative); Color Urine Yellow; Epithelial Cell Urine Auto 0-2 /hpf (0-2); Glucose Urine UA Negative (Negative); Ketones Urine Negative (Negative); Leukocyte Esterase Urine 2+ (Negative); Nitrite Urine Negative (Negative); Protein Urine 2+ (Negative); RBC Urine Automated 0-2 /hpf (0-2); Specific Gravity Urine 1.007 (1.000-1.030); Urobilinogen Urine Negative (Negative)
--- NOTE | 2023-12-28 23:07 | History & Physical Report ---
Date of Service December 28, 2023 Assessment & Plan (1) Bipolar disorder: Plan: 73yo female with BiPolar disorder presenting with 4 days of agitation and aggressive behavior. Patient somnolent in the ER after receiving Haldol - unable to fully assess mental state at this time -Admit to medical -One to one observation as needed -Haldol 1mg IV q 4 hours as needed for agitation competitive with care -Continue home Zyprexa 20mg + 5mg po daily -Continue home Ativan as needed for agitation. She is on 1mg po q 6 hours scheduled. Patient unable to swallow at present, will change to 1mg IV q 6 hours scheduled - hold for sedation -Continue Cariprazine 3mg po BID -Continue Divalproex -Continue Lamictal -Continue Mcmullen - level is slightly low at 0.4 - will not adjust as patient with worsening renal function -Will CT abdomen as it appears distended with external bruising and possible pain on palpation -Maintain RUE in sling - consider Ortho consultation for fracture management -Psychiatry consultation appreciated (2) Elevated troponin: Plan: No ischemic changes present on EKG -Repeat troponin in AM (3) Rhabdomyolysis: Plan: Patient with elevation of JR=772. UA with presence of blood without RBC. Renal function is overall near baseline. Likely secondary to patient's agitation of late. -IVF with Plasmalyte at 150mL/hr -Repeat chemistry in AM -Repeat CK in AM (4) Right hand fracture: Plan: Patient with proximal second metacarpal fracture noted of the right hand. Splint was placed in ER -Consider Ortho consultation for fracture management plan -Pain control with Tylenol PRN History of Present Illness Chief Complaint: Bipolar, Primary Care Provider: [facility] Brenda Medley is a 73yo female resident at [facility] presenting with several days of manic and aggressive behavior. She has been hitting [place] with her arms and legs and hitting her head against the [place] as well. This has been ongoing x 4 days. Patient is somnolent in the ER after receiving Ativan and is unable to provide details of events prior to arrival. Per ER staff - patient agitated intermittently. Has been given IV Haldol with good result. ER Course: Haldol 1mg IV x 1 NSS x 500mL Allergies Allergy/AdvReac Type Severity Reaction Status Date / Time clozapine Allergy Severe TOXIC Verified 12/28/23 22:25 REACTION lurasidone Allergy Severe TOXIC Verified 12/28/23 22:25 REACTION aspirin Allergy Unknown UNKNOWN Verified 12/28/23 22:25 REACTION ibuprofen Allergy Unknown UNKNOWN Verified 12/28/23 22:25 REACTION latex Allergy Unknown UNKNOWN Verified 12/28/23 22:25 Penicillins Allergy Unknown UNKNOWN Verified 12/28/23 22:25 REACTION Sulfa (Sulfonamide Allergy Unknown UNKNOWN Verified 12/28/23 22:25 Antibiotics) REACTION Home Medications Medication Instructions Recorded Confirmed Type multivitamin (Multiple Vitamins 1 tab PO QAM ##0 11/17/17 12/28/23 History tablet) blood sugar diagnostic (OneTouch #100 ea 08/25/20 08/29/23 Rx Ultra Blue Test Strip) blood-glucose meter (OneTouch #1 ea 08/25/20 08/29/23 Rx Ultra2 Meter) cholecalciferol (vitamin D3) 25 25 mcg PO QAM 08/26/20 12/28/23 History mcg (1,000 unit) tablet (Vitamin D3) atorvastatin 10 mg tablet 10 mg PO HS #90 tabs 03/09/21 12/28/23 Rx blood sugar diagnostic #400 ea 03/09/21 08/29/23 Rx blood-glucose meter (OneTouch #1 ea 03/09/21 08/29/23 Rx Ultra2 Meter) omeprazole 20 mg capsule,delayed 20 mg PO QAM #90 caps 03/09/21 12/28/23 Rx release lancets 30 gauge (OneTouch Delica #100 ea 03/18/21 08/29/23 Rx Plus Lancet) lithium carbonate 300 mg 300 mg PO 3XWK 08/02/21 12/28/23 History tablet,extended release diaper,brief,adult,disposable #120 ea 08/07/21 08/29/23 Rx (Select Briefs) sitagliptin phosphate 25 mg tablet 25 mg PO QAM 08/07/21 12/28/23 History (Januvia) diclofenac sodium 1 % topical gel 4 g EXT QID #100 grams 08/31/21 12/28/23 Rx (Voltaren Arthritis Pain) ondansetron 4 mg disintegrating 4 mg PO Q6 PRN Nausea And Vomiting 08/06/22 12/28/23 History tablet tramadol 50 mg tablet 100 mg PO TIDM 08/06/22 12/28/23 History acetaminophen 325 mg tablet 650 mg PO QID PRN Fever Or Pain 07/14/23 12/28/23 History (Tylenol) benzocaine 20 % mucosal gel 1 applic mucous membrane Q6H PRN 07/14/23 12/28/23 History (Anbesol (benzocaine) Maximum Mouth Pain Strength) cariprazine 3 mg capsule (Vraylar) 3 mg PO BIDM 07/14/23 12/28/23 History cyanocobalamin (vitamin B-12) 1,000 mcg PO QAM 07/14/23 12/28/23 History 1,000 mcg tablet diclofenac sodium 1 % topical gel 1 ea topical QID 07/14/23 12/28/23 History lamotrigine 150 mg tablet 150 mg PO BIDM 07/14/23 12/28/23 History lorazepam 1 mg tablet 1 mg PO Q6H 07/14/23 12/28/23 History montelukast 10 mg tablet 10 mg PO HS 07/14/23 12/28/23 History olanzapine 20 mg tablet 20 mg PO QDD 07/14/23 12/28/23 History olanzapine 5 mg tablet (Zyprexa) 5 mg PO QAM 07/14/23 12/28/23 History bisacodyl 10 mg rectal suppository 10 mg AK DAILY PRN Constipation 08/23/23 12/28/23 History (Dulcolax (bisacodyl)) lorazepam 1 mg tablet 1 mg PO DIRECTED PRN 08/23/23 12/28/23 History TORSTEN/AGITATION magnesium hydroxide 400 mg/5 mL 30 ml PO DAILY 08/23/23 12/28/23 History oral suspension (Milk of Magnesia) sodium phosphates 19 gram-7 118 ml AK DAILY PRN Constipation 08/23/23 12/28/23 History gram/118 mL enema (Fleet Enema) divalproex 250 mg tablet,delayed 250 mg PO BIDM 12/28/23 12/28/23 History release (Depakote) mineral oil-isopropyl myristat 1 applic topical BID 12/28/23 12/28/23 History lotion Past Med/Surg History Problem List CRF (chronic renal failure) (Acute) Elevated troponin (Acute) Acute dehydration (Acute) Rhabdomyolysis (Acute) Acute head trauma (Acute) Right hand fracture (Acute) Anemia (Acute) Psychosis (Acute) Anemia (Acute) Hypertension Renal cyst UTI (urinary tract infection) Bipolar disorder Chronic kidney disease, stage 4 (severe) Acute kidney injury Right hip pain Unable to care for self (Acute) Fall (Acute) CHI (closed head injury) (Acute) Dysuria Ankle pain, right Back pain (Acute) Multiple falls (Acute) Generalized weakness (Acute) Behavior safety risk (Acute) Pharyngitis Colon cancer screening Encounter for pre-operative examination Bilateral ankle pain Knee pain, bilateral Spondylolisthesis at L5-S1 level Urinary incontinence Diabetes mellitus type 2, controlled (Acute 02/09/13) Benign essential hypertension (Acute) Schizoaffective disorder (Acute) Stage III chronic kidney disease (Acute) Vitamin D deficiency (Acute) SNHL (sensorineural hearing loss) (Acute) Polyarthritis (Acute) Multinodular thyroid (Acute) Mobility impaired (Acute) Low TSH level (Acute) Mcmullen use (Acute) Hyperparathyroidism (Acute) Hypercholesterolemia (Acute) High serum thyroglobulin (Acute) Hiatal hernia (Acute) Gastroesophageal reflux disease (Acute) Elevated alkaline phosphatase level (Acute) Edema (Acute) Eczema (Acute) Chronic lower back pain (Acute) Chronic diarrhea (Acute) COPD, mild (Acute) Bipolar I disorder, single manic episode (Acute) Asthma (Acute) Abnormal mammogram (Acute) Frequent falls (Acute) Anemia (Acute) Gait disturbance Schizoaffective disorder Deafness Chronic diastolic CHF (congestive heart failure) per record; fiance could not confirm. does not follow with sr. director product management Depression (Acute) Medical History History of COVID-19 unsure when, per [facility] record EKG abnormalities Spondylolisthesis CKD (chronic kidney disease) stage 4 Anxiety GERD (gastroesophageal reflux disease) Osteoporosis Osteoarthritis Asthma no inh Bipolar disorder Hyperparathyroidism Type II diabetes mellitus NIDDM Hyperlipemia Surgical History History of colonoscopy History of tooth extraction History of cataract surgery Status post breast lumpectomy History of tubal ligation Family History Father Myocardial infarction Brother Rheumatoid arthritis Other Cancer Diabetes Heart disease Hypertension Lung disease Denies family history of Colon cancer Ovarian cancer Prostate cancer Breast cancer Social History Smoking Status: Never smoker Tobacco Type: Cigarettes Second Hand Exposure: No; Do You Dip or Chew Tobacco: No; Hx Alcohol Use: No Hx Substance Use: No Preferred Language: Cypriot Communication Ability: Impaired Communication Ability Comment: per facility pt unable to sign consents, will need POA to sign Visual Impairment: Partially Limited 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 Required: No Beliefs That Will Affect Care: None marital status: Single Current Living Situation: Intermediate Current Living Situation Comment: [facility] current occupational status: disabled Feels Safe at Home: Yes Childhood Exposure to Second-Hand Smoke: No Diet: regular Dental Care, Regularly: No Physical Activity Frequency: 5-6 Times per Week Seatbelt Use: always Sunscreen Use: No Assistive Devices: Wheelchair Review of Systems Review of Systems: Unobtainable due to mental health condition Physical Exam Physical Exam: General: patient somnolent after receiving Haldol, withdraws from pain Skin: scattered bruising on arms and legs, bruising on abdomen as well HEENT: NC/AT, PERRL, anicteric sclera, conjunctiva without injection, external ear normal to inspection and nontender, nares patent, dry lips membranes, neck supple, trachea midline, no LAD, no thyromegaly, no JVD Heart: +S1/S2, regular, no m/r/g Lungs: equal air entry bilaterally, no rales/rhonchi/wheezes Abd: +BS, soft, mildly distended, patient groans with abdominal palpation, no organomegaly or ascites Ext: warm, 2+ pulses in UE/LE bilaterally, no clubbing/cyanosis or edema, RUE in splint Neuro: somnolent, moving all extremities Results & Data Results & Data Vital Signs (Past 12 Hours) Vital Signs Temp Pulse Pulse Resp BP BP Pulse Ox 12/28/23 21:43 87 16 135/87 97 12/28/23 19:30 36.8 C 80 16 118/72 100 O2 Del Method 12/28/23 21:43 Room Air 12/28/23 19:30 Room Air Laboratory Results Laboratory Results WBC 6.64 K/ul (4.8-10.8) 12/28/23 19:58 RBC 3.44 M/uL (4.20-5.40) L 12/28/23 19:58 Hgb 9.9 g/dl (12.0-16.0) L 12/28/23 19:58 Hct 32.3 % (37.0-47.0) L 12/28/23 19:58 MCV 93.9 fL (80.0-100.0) 12/28/23 19:58 MCH 28.8 pg (25.0-34.0) 12/28/23 19:58 MCHC 30.7 g/dL (32.0-36.0) L 12/28/23 19:58 RDW Std Deviation 52.0 fL (36.4-46.3) H 12/28/23 19:58 RDW Coeff of Rachel 15.1 % (11.5-14.5) H 12/28/23 19:58 Plt Count 234 K/uL (130-400) 12/28/23 19:58 MPV 10.5 fL (9.4-12.4) 12/28/23 19:58 Immature Gran % (Auto) 0.6 % 12/28/23 19:58 Neut % (Auto) 70.9 % 12/28/23 19:58 Lymph % (Auto) 16.1 % 12/28/23 19:58 [place] % (Auto) 12.2 % 12/28/23 19:58 Eos % (Auto) 0.0 % 12/28/23 19:58 Baso % (Auto) 0.2 % 12/28/23 19:58 Neut # (Auto) 4.71 K/uL (1.40-6.50) 12/28/23 19:58 Lymph # (Auto) 1.07 K/uL (1.20-3.40) L 12/28/23 19:58 [place] # (Auto) 0.81 K/uL (0.11-0.59) H 12/28/23 19:58 Eos # (Auto) 0.00 K/uL (0.00-0.50) 12/28/23 19:58 Baso # (Auto) 0.01 K/uL (0.00-0.20) 12/28/23 19:58 Immature Gran # (Auto) 0.04 K/uL (0.01-0.20) 12/28/23 19:58 Sodium 136 mmol/L (136-145) 12/28/23 19:58 Potassium 4.0 mmol/L (3.5-5.1) 12/28/23 19:58 Chloride 100 mmol/L (98-107) 12/28/23 19:58 Carbon Dioxide 28 mmol/L (21-32) 12/28/23 19:58 Anion Gap 8 (3-11) 12/28/23 19:58 BUN 26 mg/dl (6-23) H 12/28/23 19:58 Creatinine 2.74 mg/dl (0.6-1.2) H 12/28/23 19:58 Est Cr Clr Drug Dosing 15.5 ml/min 12/28/23 19:58 Est GFR ( Amer) 19.4 ml/min 12/28/23 19:58 Est GFR (Non-Af Amer) 16.7 ml/min 12/28/23 19:58 BUN/Creatinine Ratio 9.5 (10-20) L 12/28/23 19:58 Glucose 104 mg/dl (70-99(Fasting)) H 12/28/23 19:58 Calcium 8.4 mg/dl (8.6-10.3) L 12/28/23 19:58 Magnesium 2.4 mg/dl (1.7-2.4) 12/28/23 19:58 Total Bilirubin 0.3 mg/dl (0.2-1.0) 12/28/23 19:58 AST 21 U/L (13-39) 12/28/23 19:58 ALT 17 U/L (7-52) 12/28/23 19:58 Alkaline Phosphatase 105 U/L (34-104) H 12/28/23 19:58 Total Creatine Kinase 717 U/L (26-192) H 12/28/23 19:58 Troponin I High Sens 28.5 pg/ml (0-14) H 12/28/23 22:05 Total Protein 6.6 gm/dl (6.0-8.3) 12/28/23 19:58 Albumin 3.7 gm/dl (3.4-5.0) 12/28/23 19:58 Globulin 2.9 gm/dl (2.5-4.0) 12/28/23 19:58 Albumin/Globulin Ratio 1.3 (0.9-2) 12/28/23 19:58 TSH 0.838 uIu/ml (0.300-4.500) 12/28/23 19:58 Urine Color Yellow 12/28/23 21:45 Urine Appearance Clear (Clear) 12/28/23 21:45 Urine pH 6.0 (4.5-7.5) 12/28/23 21:45 Ur Specific [place] 1.007 (1.000-1.030) 12/28/23 21:45 Urine Protein 2+ (Negative) H 12/28/23 21:45 Urine Glucose (UA) Negative (Negative) 12/28/23 21:45 Urine Ketones Negative (Negative) 12/28/23 21:45 Urine Blood 2+ (Negative) H 12/28/23 21:45 Urine Nitrite Negative (Negative) 12/28/23 21:45 Urine Bilirubin Negative (Negative) 12/28/23 21:45 Urine Urobilinogen Negative (Negative) 12/28/23 21:45 Ur Leukocyte Esterase 2+ (Negative) H 12/28/23 21:45 Urine WBC (Auto) 6-10 /hpf (0-5) H 12/28/23 21:45 Urine RBC (Auto) 0-2 /hpf (0-2) 12/28/23 21:45 U Hyaline Cast (Auto) 3-5 /lpf (0-2) H 12/28/23 21:45 U Epithel Cells (Auto) 0-2 /hpf (0-2) 12/28/23 21:45 Urine Bacteria (Auto) None Seen (None Seen) 12/28/23 21:45 [place]mullen 0.4 mmol/L (0.6-1.2) L 12/28/23 19:58 SARS-CoV-2, RNA, NAAT NEGATIVE (NEGATIVE) 12/28/23 20:[address] 12/28/23 20:11 Exam(s): CT HEAD Without Contrast EXAM: CT Head Without Intravenous Contrast CLINICAL HISTORY: Reason for exam: trauma. TECHNIQUE: Axial computed tomography images of the head/brain without intravenous contrast. CTDI is 35.51 mGy and DLP is 546.36 mGy-cm. Automated exposure control was utilized for the study. A dose lowering technique was utilized adhering to the principles of ALARA. COMPARISON: No relevant prior studies available. FINDINGS: Brain: Age-related cerebral volume loss. Periventricular and subcortical white matter hypoattenuation, consistent with chronic microangiopathy. No acute intracranial hemorrhage. No midline shift or mass effect. Ventricles: Unremarkable. No ventriculomegaly. Bones/joints: Unremarkable. No acute fracture. Soft tissues: Unremarkable. Sinuses: Unremarkable as visualized. No acute sinusitis. Mastoid air cells: Unremarkable as visualized. No mastoid effusion. IMPRESSION: No acute intracranial hemorrhage. No midline shift or mass effect. Electronically signed by: Talat Ramos MD 12/28/23 23:56 PM ECG Additional Comments: EKG with NSR at 83bpm, normal axis, WG=153, MOK=949, EBp=558, no acute ischemic changes, some non-specific ST changes Code Status & VTE Plan VTE Prophylaxis Plan VTE Prophylaxis will be ordered: No PG Care Time/CCT Total # of Minutes Spent Total Time Spent with Patient: Total time spent is greater than 50% in coordination of care (as documented) at patient's floor/unit and/or counseling patient: Coding Level of Care Code 54542 INT INP/OBS CARE 375MIN Diagnoses Bipolar disorder F31.9 Elevated troponin R79.89 Rhabdomyolysis T79.6XXA Encounter type: initial encounter Rhabdomyolysis type: traumatic Right hand fracture S62.91XA Encounter type: initial encounter Fracture type: closed (3) Rhabdomyolysis Encounter type: initial encounter Rhabdomyolysis type: traumatic Qualified Code(s): T79.6XXA - Traumatic ischemia of muscle, initial encounter (4) Right hand fracture Encounter type: initial encounter Fracture type: closed Qualified Code(s): S62.91XA - Unspecified fracture of right wrist and hand, initial encounter for closed fracture
--- NOTE | 2023-12-28 23:57 | CT Scan Report ---
Exam(s): CT HEAD Without Contrast EXAM: CT Head Without Intravenous Contrast CLINICAL HISTORY: Reason for exam: trauma. TECHNIQUE: Axial computed tomography images of the head/brain without intravenous contrast. CTDI is 35.51 mGy and DLP is 546.36 mGy-cm. Automated exposure control was utilized for the study. A dose lowering technique was utilized adhering to the principles of ALARA. COMPARISON: No relevant prior studies available. FINDINGS: Brain: Age-related cerebral volume loss. Periventricular and subcortical white matter hypoattenuation, consistent with chronic microangiopathy. No acute intracranial hemorrhage. No midline shift or mass effect. Ventricles: Unremarkable. No ventriculomegaly. Bones/joints: Unremarkable. No acute fracture. Soft tissues: Unremarkable. Sinuses: Unremarkable as visualized. No acute sinusitis. Mastoid air cells: Unremarkable as visualized. No mastoid effusion. IMPRESSION: No acute intracranial hemorrhage. No midline shift or mass effect. Electronically signed by: Talat Ramos MD 12/28/23 23:56 PM
[2023-12-29] MEDS ORDERED: HALOPERIDOL LACTATE 5 MG/ML 1 ML VIAL IV PRN (00:08)
[2023-12-29] MEDS ORDERED: bisacodyL 10 MG SUPP PR PRN (00:41)
[2023-12-29] MEDS: LORazepam 1 MG TAB PO SCH (00:46)
[2023-12-29] MEDS: PLASMA-LYTE A 1,000 ML IV SCH (00:54)
[2023-12-29] MEDS: LORazepam 2 MG/1 ML VIAL IV SCH (01:24)
[2023-12-29] MEDS ORDERED: LORazepam 1 MG TAB PO SCH ×2 (06:00)
[2023-12-29 06:21] LABS: Hematocrit (blood only) 32.7 % (37.0-47.0); Hemoglobin 10.3 g/dl (12.0-16.0); Mean Corpuscular Hemoglobin 29.2 pg (25.0-34.0); Mean Corpuscular Hgb Conc 31.5 g/dL (32.0-36.0); Mean Corpuscular Volume 92.6 fL (80.0-100.0); Mean Platelet Volume 10.1 fL (9.4-12.4); Platelet Count 237 K/uL (130-400); RDW Coefficient of Variation 14.9 % (11.5-14.5); RDW Standard Deviation 50.6 fL (36.4-46.3); Red Blood Count 3.53 M/uL (4.20-5.40); White Blood Count 4.25 K/ul (4.8-10.8)
[2023-12-29] MEDS: HALOPERIDOL LACTATE 5 MG/ML 1 ML VIAL IV PRN (06:39)
[2023-12-29 06:49] LABS: Calcium 8.3 mg/dl (8.6-10.3); Creatinine Clr Calc Pharmacy 17.4 ml/min; Est GFR (African American) 22.3 ml/min; Est GFR (Non-African American) 19.3 ml/min; Potassium 4.2 mmol/L (3.5-5.1)
[2023-12-29 06:55] LABS: Troponin I High Sensitivity 28.1 pg/ml (0-14)
--- NOTE | 2023-12-29 07:08 | Hospitalist Progress Note ---
Date of Service December 29, 2023 Assessment & Plan (1) Bipolar disorder: Plan: 73yo female with BiPolar disorder presenting with 4 days of agitation and aggressive behavior. Patient somnolent in the ER after receiving Haldol - unable to fully assess mental state at this time Acute Psychosis with Bipolar disorder -Under One to one observation; Vitals stable Haldol 1mg IV q 4 hours as needed for agitation competitive with care Zyprexa 20mg + 5mg po daily Ativan as needed for agitation. She is on 1mg po q 6 hours scheduled. Patient unable to swallow at present, will change to 1mg IV q 6 hours scheduled - hold for sedation Continued Cariprazine 3mg po BID/ Divalproex/ Lamictal/ [place] - level is slightly low at 0.4 - will not adjust as patient with worsening renal function -Psychiatry consultation: Verbally communicated via Dr. [place] Will shift to psychiatric unit once bed is arranged (2) Elevated troponin: Plan: No ischemic changes present on EKG -Repeat troponin : 28.5---28.1 (3) Rhabdomyolysis: Plan: Patient with elevation of II=060. UA with presence of blood without RBC. Renal function is overall near baseline. Likely secondary to patient's agitation of late. -IVF with Plasmalyte at 150mL/hr (4) Right hand fracture: Plan: Patient with proximal second metacarpal fracture noted of the right hand. Splint was placed in ER -Consider Ortho consultation for fracture management plan -Pain control with Tylenol PRN Admission and Anticipated Discharge Date Admission Date: December 28, 2023 Supervising Physician Co-Signing Physician Notes I personally examined the patient and verified all mann points of history and exam, discussed case, and agree with decision making with Dr Gonzales No meaningful HPI review of systems obtainable. Vitals noted, in general she is lying in bed crying does not appear to be in physical distress. Right hand in a splint. Breathing unlabored no accessory muscle use good effort. Skin without rashes pallor or icterus. Neuro without focal deficits. Bipolar/schizoaffectiveself-harm, hand fracture, superimposed on chronic systolic CHF and CKD stage IV/mild demand ischemia due to her agitation with both of those at baselinesupportive care, await psychiatric input. Otherwise as above Subjective Brenda was little combative and disoriented this morning. Efficient HPE is not possible. She is protected from fall, lying on bed with random voices, audible but incomprehensible. Physical Exam Physical Exam: General: Somnolent but withdraws from pain Skin: Multiple bruising on arms and legs, bruising on abdomen as well Heart: S1/S2 M0 regular rhythm Lungs: BL equal air entry bilaterally, no rales/rhonchi/wheezes Abd: Soft NT, BS +nt Results & Data Results & Data Vital Signs (Past 12 Hours) Vital Signs Temp Pulse Pulse Resp BP BP Pulse Ox 12/29/23 04:00 76 14 137/75 96 12/29/23 03:48 79 15 96 12/29/23 02:00 74 16 122/61 96 12/29/23 01:12 72 18 132/87 96 12/29/23 00:00 77 17 141/64 H 96 12/28/23 23:16 77 12/28/23 23:13 12/28/23 23:13 36.6 C 84 16 108/47 L 96 12/28/23 23:03 76 16 98 12/28/23 23:00 76 15 108/47 L 96 12/28/23 21:43 87 16 135/87 97 12/28/23 19:30 36.8 C 80 16 118/72 100 O2 Del Method 12/29/23 04:00 Room Air 12/29/23 03:48 Room Air 12/29/23 02:00 Room Air 12/29/23 01:12 Room Air 12/29/23 00:00 Room Air 12/28/23 23:16 12/28/23 23:13 Room Air 12/28/23 23:13 Room Air 12/28/23 23:03 Room Air 12/28/23 23:00 Room Air 12/28/23 21:43 Room Air 12/28/23 19:30 Room Air Resident Activity Tracking Resident Involvement: Resident Care Provided Care Provided: Adult Hospital Medicine (3) Rhabdomyolysis Encounter type: initial encounter Rhabdomyolysis type: traumatic Qualified Code(s): T79.6XXA - Traumatic ischemia of muscle, initial encounter (4) Right hand fracture Encounter type: initial encounter Fracture type: closed Qualified Code(s): S62.91XA - Unspecified fracture of right wrist and hand, initial encounter for closed fracture
--- NOTE | 2023-12-29 08:04 | XRay Report ---
SINGLE VIEW CHEST CLINICAL HISTORY: Trauma. Change in mental status. FINDINGS: An AP, portable, supine chest radiograph is compared to study dated 08/09/2023. The heart is enlarged noting atherosclerotic calcification of the thoracic aorta. There is pulmonary vascular kaur estion. Scarring/atelectasis is noted at the lung bases. No airspace consolidation or large pleural e ffusion is identified. No pneumothorax is seen. The skeletal structures are osteopenic. The bony thor ax is grossly intact. Degenerative change is noted in the thoracic spine. IMPRESSION: 1. Cardiomegaly with pulmonary vascular congestion. 2. No airspace consolidation or large pleural effusion is identified. ACT 112: Negative or not required by law. Electronically signed by: Matias Jasmine M.D. 12/29/2023 8:03 AM
[2023-12-29] MEDS: DICLOFENAC SOD 1% GEL 100 GM TUBE EXT SCH ×2 (08:14→08:15)
[2023-12-29] MEDS: ACETAMINOPHEN 325 MG TAB PO PRN (08:15)
[2023-12-29] MEDS: MAGNESIUM HYDROXIDE SUSP 30 ML UDC PO SCH (08:16)
[2023-12-29] MEDS: CARIPRAZINE HCL 3 MG CAP PO SCH (09:02)
[2023-12-29] MEDS: lamoTRIgine 100 MG TAB PO SCH (09:02)
[2023-12-29] MEDS: OLANZapine 5 MG TABLET PO SCH (09:02)
--- NOTE | 2023-12-29 09:09 | XRay Report ---
XR hand RT min 3V routine, XR wrist RT 2V CLINICAL HISTORY: trauma. Right hand pain. COMPARISON STUDY: None. FINDINGS: Soft tissue swelling within the dorsum of the right hand and wrist. Slightly impacted and m ildly comminuted intra-articular fracture the base of the second metacarpal. No dislocation. No acute fracture or dislocation within the right wrist. No radiopaque foreign bodies. Advanced degenerative changes at the first carpal metacarpal joint. IMPRESSION: Slightly impacted and mildly comminuted intra-articular fracture at the base of the [place] metacarpal. ACT 112: Negative or not required by law. Electronically signed by: Ta Ochoa M.D. 12/29/2023 9:08 AM
[2023-12-29] MEDS: LORazepam 1 MG TAB PO PRN (16:29)
[2023-12-29] MEDS: OLANZapine 20 MG TABLET PO SCH (17:58)
--- NOTE | 2023-12-29 19:07 | Billing Data ---
Date of Service December 29, 2023 Coding Level of Care Code 63729 SUB INP/OBS CARE MIN
[2023-12-29] MEDS: HALOPERIDOL LACTATE 5 MG/ML 1 ML VIAL IM STA (19:52)
[2023-12-29] MEDS: HALOPERIDOL LACTATE 5 MG/ML 1 ML VIAL IV STA (19:56)
--- NOTE | 2023-12-30 06:53 | Hospitalist Progress Note ---
Date of Service December 30, 2023 Assessment & Plan (1) Bipolar disorder: Plan: 73yo female with BiPolar disorder presenting with 4 days of agitation and aggressive behavior. Patient somnolent in the ER after receiving Haldol - unable to fully assess mental state at this time Acute Psychosis with Bipolar disorder -Under One to one observation; Vitals stable Haldol 1mg IV q 4 hours as needed for agitation; extra dose last night Zyprexa 20mg + 5mg po daily Ativan as needed for agitation. She is on 1mg po q 6 hours scheduled. - Patient unable to swallow at present, will change to 1mg IV q 6 hours scheduled - hold for sedation Continued Cariprazine 3mg po BID/ Divalproex/ Lamictal/ Rico - level is slightly low at 0.4 - will not adjust as patient with worsening renal function -Psychiatry consultation: Verbally communicated with Dr. Washington Continue same treatment, in process of special arrangement to shift her to previous facility. Needs special arrangement to protect herself as she is very combative. (2) Elevated troponin: Plan: No ischemic changes present on EKG -Repeat troponin : 28.5---28.1 (3) Rhabdomyolysis: Plan: Patient with elevation of JI=363. UA with presence of blood without RBC. Renal function is overall near baseline. Likely secondary to patient's agitation of late. -IVF with Plasmalyte started yesterday; patient very uncooperative for IVF ;stoped. Given her hypernatremia( 149); 0.45NSS started this morning at 80ml/hr--- Nursing will try their best. (4) Right hand fracture: Plan: Patient with proximal second metacarpal fracture noted of the right hand. Splint was placed in ER -Consider Ortho consultation for fracture management plan -Pain control with Tylenol PRN (5) Hypernatremia: Plan: Mild hypernatremia; likely secondary to dehydration 136---->143---->149 Encouraged oral hydration; Pt not cooperative 0.45 NSS started at 80ml/ hour--- repeat labs in AM Symptoms assessment is challenging in her current status. Reassess lab for further management. Admission and Anticipated Discharge Date Admission Date: December 28, 2023 Supervising Physician Co-Signing Physician Notes I personally examined the patient and verified all mann points of history and exam, discussed case, and agree with decision making with Dr Gonzales No meaningful HPI review of systems obtainable. doing better when moved out to nurse's station. doing better eating and drinking with encouragement. Vitals noted, in general she is lying in bed crying does not appear to be in physical distress. Right hand in a splint. Breathing unlabored no accessory muscle use good effort. Skin without rashes pallor or icterus. Neuro without focal deficits. Bipolar/schizoaffectiveself-harm, hand fracture, superimposed on chronic systolic CHF and CKD stage IV/mild demand ischemia due to her agitation with both of those at baselinesupportive care, await psychiatric input. hopeful for geropsych placement for now. hypernatremia almost certainly from poor PO intake - which is a bit better today; IV fluids ordered as well. Otherwise as above Subjective Brenda was little combative and disoriented this morning. Efficient HPE is not possible. She is protected from fall, lying on bed with random voices, audible but incomprehensible. She has been combative overnight. Physical Exam Physical Exam: General: Lying in bed mumbling, not well oriented to TPP, mild dehydrated Skin: Multiple bruising on arms and legs, bruising on abdomen as well MSK: Cast insitu in her right arm Rest exam: Not attempted because of her combative status Results & Data Results & Data Vital Signs (Past 12 Hours) Vital Signs Temp Pulse Resp BP Pulse Ox O2 Del Method 12/30/23 06:29 94 H 18 144/90 H 96 12/30/23 05:21 97 H 18 151/109 H 94 12/30/23 00:01 62 96/66 L 99 12/29/23 23:00 102 H 12/29/23 22:27 100 H 14 177/107 H 93 Room Air 12/29/23 21:56 101 H 24 131/106 H 94 12/29/23 21:54 103 H 19 175/101 H 94 Room Air 12/29/23 20:52 123 H 26 H 180/86 H 96 Room Air 12/29/23 20:52 103 H 26 H 180/86 H 96 Room Air 12/29/23 20:00 102 H 32 H 158/85 H 96 12/29/23 19:30 36.4 C 12/29/23 19:24 100 H 20 178/85 H 96 Room Air (3) Rhabdomyolysis Encounter type: initial encounter Rhabdomyolysis type: traumatic Qualified Code(s): T79.6XXA - Traumatic ischemia of muscle, initial encounter (4) Right hand fracture Encounter type: initial encounter Fracture type: closed Qualified Code(s): S62.91XA - Unspecified fracture of right wrist and hand, initial encounter for closed fracture
[2023-12-30 07:26] LABS: Hematocrit (blood only) 31.8 % (37.0-47.0); Hemoglobin 10.4 g/dl (12.0-16.0); Mean Corpuscular Hemoglobin 29.5 pg (25.0-34.0); Mean Corpuscular Hgb Conc 32.7 g/dL (32.0-36.0); Mean Corpuscular Volume 90.1 fL (80.0-100.0); Mean Platelet Volume 10.5 fL (9.4-12.4); Platelet Count 271 K/uL (130-400); RDW Coefficient of Variation 14.7 % (11.5-14.5); RDW Standard Deviation 48.5 fL (36.4-46.3); Red Blood Count 3.53 M/uL (4.20-5.40); White Blood Count 5.63 K/ul (4.8-10.8)
[2023-12-30 07:49] LABS: BUN Creatinine Ratio 8.3 (10-20); Calcium 9.3 mg/dl (8.6-10.3); Creatinine Clr Calc Pharmacy 18.5 ml/min; Est GFR (Non-African American) 20.7 ml/min; Potassium 4.6 mmol/L (3.5-5.1)
[2023-12-30] MEDS: LITHIUM CARBONATE SLOW REL 300 MG TAB PO SCH (08:32)
[2023-12-30] MEDS: SODIUM CHLORIDE 0.45 % 1,000 ML IV SCH (09:57)
--- NOTE | 2023-12-30 14:59 | Psychiatric Consultation ---
Date of Consultation December 30, 2023 Impression / Recommendations Impression 73-year-old female history of schizoaffective disorder, bipolar type who presents with recent agitation and aggressive behavior in her detention ([facility]). Patient has been restless and presented self-harm behaviors including banging head and limbs against wall. Patient has elevated creatinine with progressive renal dysfunction due to long-term lithium use. Psychiatry consulted for evaluation and management. Patient presents with restless behaviors and is tangential. Concern for recent psychomotor agitation. Concern for recurrent stefan. Does not appear overtly psychotic on exam. Medications were reviewed. Collateral from detention indicates patient was recently started on Depakote for agitation however was unaffected and currently held. Labs reviewed: Chronic anemia, sodium is elevated at 149, creatinine of 2.3appears to be current baseline based off history of readings; CK initially elevated and trending down (likely from psychomotor agitation); lithium of 0.4 and subtherapeutic. Patient would likely benefit from optimization of lithium dose which is currently given Tuesday, Tuesday, Tuesday at 9 AM. Would recommend additional lithium dose tomorrow morning of 300 mg. Patient would be best treated in a geriatric psychiatry facility and a 302 petition was completed by this physician. And appears to be the most appropriate setting for management of symptoms and appropriate disposition. patient would benefit from outpatient psychiatrist for continued management. Overall, I spent a total of 80 minutes with this case including review of chart records, nursing report, review of lab work, direct evaluation of the patient at bedside, counseling the patient, discussion of the patient with the hospitalist provider, discussion with the psychiatric liaison during clinical rounds, and documentation in the electronic health record. (1) Schizoaffective disorder, bipolar type: Plan -Tazlina 300mg tomorrow AM, continue Tazlina 300mg MoWeFrSa -Draw level Tuesday AM -Continue Carpiprazine 3mg BID -Continue Olanzapine 5mg QAM, 20mg QDD -Continue Lamotrigine 150mg BIDPM -Hold Depakote -Continue Lorazepam 1mg Q6hr PRN for agitation -302 petition filed, recommend inpatient geriatric psychiatry admission Psych History Identifying Data 73-year-old female history of schizoaffective disorder, bipolar type who presents with recent agitation and aggressive behavior in her detention ([facility]). Patient has been restless and presented self-harm behaviors including banging head and limbs against wall. Patient has elevated creatinine with progressive renal dysfunction due to long-term lithium use. Psychiatry consulted for evaluation and management. Chief Complaint Aggressive behaviors History of Present Illness Patient is hard of hearing and has difficulty with expression with slurred speech. She was seen being loud with nursing. Collateral from nursing reports she is able to converse and is able to ask for food and toileting. she presents periods of psychomotor agitation and has difficulty maintaining a linear stream of consciousness in a conversation. When patient was seen she was smiling and appeared reactive. She appeared to be in good spirits however was confused and had difficulty answering my questions at times. She presented tangential thoughts which appears to be her baseline. Attempted to communicate with their with the use of a communication board however patient was tangential and unable to stay focused on my questions. Allergies Allergy/AdvReac Type Severity Reaction Status Date / Time clozapine Allergy Severe TOXIC Verified 12/28/23 22:25 REACTION lurasidone Allergy Severe TOXIC Verified 12/28/23 22:25 REACTION aspirin Allergy Unknown UNKNOWN Verified 12/28/23 22:25 REACTION ibuprofen Allergy Unknown UNKNOWN Verified 12/28/23 22:25 REACTION latex Allergy Unknown UNKNOWN Verified 12/28/23 22:25 Penicillins Allergy Unknown UNKNOWN Verified 12/28/23 22:25 REACTION Sulfa (Sulfonamide Allergy Unknown UNKNOWN Verified 12/28/23 22:25 Antibiotics) REACTION Home Medications Medication Instructions Recorded Confirmed Type multivitamin (Multiple Vitamins 1 tab PO QAM ##0 11/17/17 12/28/23 History tablet) blood sugar diagnostic (OneTouch #100 ea 08/25/20 08/29/23 Rx Ultra Blue Test Strip) blood-glucose meter (OneTouch #1 ea 08/25/20 08/29/23 Rx Ultra2 Meter) cholecalciferol (vitamin D3) 25 25 mcg PO QAM 08/26/20 12/28/23 History mcg (1,000 unit) tablet (Vitamin D3) atorvastatin 10 mg tablet 10 mg PO HS #90 tabs 03/09/21 12/28/23 Rx blood sugar diagnostic #400 ea 03/09/21 08/29/23 Rx blood-glucose meter (OneTouch #1 ea 03/09/21 08/29/23 Rx Ultra2 Meter) omeprazole 20 mg capsule,delayed 20 mg PO QAM #90 caps 11/08/21 08/28/24 Rx release lancets 30 gauge (OneTouch Delica #100 ea 03/18/21 08/29/23 Rx Plus Lancet) lithium carbonate 300 mg 300 mg PO 3XWK 08/02/21 12/28/23 History tablet,extended release diaper,brief,adult,disposable #120 ea 08/07/21 08/29/23 Rx (Select Briefs) sitagliptin phosphate 25 mg tablet 25 mg PO QAM 08/07/21 12/28/23 History (Januvia) diclofenac sodium 1 % topical gel 4 g EXT QID #100 grams 08/31/21 12/28/23 Rx (Voltaren Arthritis Pain) ondansetron 4 mg disintegrating 4 mg PO Q6 PRN Nausea And Vomiting 08/06/22 12/28/23 History tablet tramadol 50 mg tablet 100 mg PO TIDM 08/06/22 12/28/23 History acetaminophen 325 mg tablet 650 mg PO QID PRN Fever Or Pain 07/14/23 12/28/23 History (Tylenol) benzocaine 20 % mucosal gel 1 applic mucous membrane Q6H PRN 07/14/23 12/28/23 History (Anbesol (benzocaine) Maximum Mouth Pain Strength) cariprazine 3 mg capsule (Vraylar) 3 mg PO BIDM 07/14/23 12/28/23 History cyanocobalamin (vitamin B-12) 1,000 mcg PO QAM 07/14/23 12/28/23 History 1,000 mcg tablet diclofenac sodium 1 % topical gel 1 ea topical QID 07/14/23 12/28/23 History lamotrigine 150 mg tablet 150 mg PO BIDM 07/14/23 12/28/23 History lorazepam 1 mg tablet 1 mg PO Q6H 07/14/23 12/28/23 History montelukast 10 mg tablet 10 mg PO HS 07/14/23 12/28/23 History olanzapine 20 mg tablet 20 mg PO QDD 07/14/23 12/28/23 History olanzapine 5 mg tablet (Zyprexa) 5 mg PO QAM 07/14/23 12/28/23 History bisacodyl 10 mg rectal suppository 10 mg PA DAILY PRN Constipation 08/23/23 12/28/23 History (Dulcolax (bisacodyl)) lorazepam 1 mg tablet 1 mg PO DIRECTED PRN 08/23/23 12/28/23 History STEFAN/AGITATION magnesium hydroxide 400 mg/5 mL 30 ml PO DAILY 08/23/23 12/28/23 History oral suspension (Milk of Magnesia) sodium phosphates 19 gram-7 118 ml PA DAILY PRN Constipation 08/23/23 12/28/23 History gram/118 mL enema (Fleet Enema) divalproex 250 mg tablet,delayed 250 mg PO BIDM 12/28/23 12/28/23 History release (Depakote) mineral oil-isopropyl myristat 1 applic topical BID 12/28/23 12/28/23 History lotion Patient History Medical History History of COVID-19 unsure when, per [facility] record EKG abnormalities Spondylolisthesis CKD (chronic kidney disease) stage 4 Anxiety GERD (gastroesophageal reflux disease) Osteoporosis Osteoarthritis Asthma no inh Bipolar disorder Hyperparathyroidism Type II diabetes mellitus NIDDM Hyperlipemia Surgical History History of colonoscopy History of tooth extraction History of cataract surgery Status post breast lumpectomy History of tubal ligation Family History Father Myocardial infarction Brother Rheumatoid arthritis Other Cancer Diabetes Heart disease Hypertension Lung disease Denies family history of Colon cancer Ovarian cancer Prostate cancer Breast cancer Social History Smoking Status: Never smoker Tobacco Type: Cigarettes Second Hand Exposure: No; Do You Dip or Chew Tobacco: No; Hx Alcohol Use: No Hx Substance Use: No Preferred Language: Sinhala Communication Ability: Impaired Communication Ability Comment: per facility pt unable to sign consents, will need POA to sign Visual Impairment: Partially Limited Hearing Ability: Dean Of Instruction Required: No Beliefs That Will Affect Care: None marital status: Single Current Living Situation: Group Home Current Living Situation Comment: [facility] current occupational status: disabled Feels Safe at Home: Yes Childhood Exposure to Second-Hand Smoke: No Diet: regular Dental Care, Regularly: No Physical Activity Frequency: 5-6 Times per Week Seatbelt Use: always Sunscreen Use: No Assistive Devices: Wheelchair Physical Exam Mental Examination: Appearance: Disheveled Eye Contact: Maintains Eye Contact Motor Behavior: Unremarkable Speech: Incoherent and Slurred Mood: Calm Affect: Happy Thought Process: Disorganized and Tangential Thought Content: Intact (at times) and Disorganized Hallucinations: None (unclear, possible AVH) Insight: Poor Judgement: Poor Vital Signs (Past 24 Hours): Last Vital Signs Temp 36.4 C 12/29/23 19:30 Pulse 98 H 12/30/23 10:00 Resp 20 12/30/23 10:00 BP 167/77 H 12/30/23 10:00 Pulse Ox 97 12/30/23 10:00 O2 Del Method Room Air 12/29/23 22:27 Results & Data (PSY) Medications Administered Acetaminophen (Acetaminophen 325 Mg Tab) 650 mg PO QID PRN PRN Reason: Fever Or Pain Stop: 01/28/24 00:40 Last Admin: 12/30/23 12:45 Dose: 650 mg Documented By: Admin: 12/29/23 08:15 Dose: 650 mg Documented By: NIKKI Cariprazine (Cariprazine Hcl 3 Mg Cap) 3 mg PO BIDM GEORGE Stop: 01/28/24 07:59 Last Admin: 12/30/23 08:29 Dose: 3 mg Documented By: Admin: 12/29/23 17:59 Dose: 3 mg Documented By: Admin: 12/29/23 09:02 Dose: 3 mg Documented By: NIKKI Diclofenac Sodium (Diclofenac Sod 1% Gel 100 Gm Tube) 2 gm EXT QID ON LICENSE OF [facility]; Protocol Stop: 01/28/24 08:59 Last Admin: 12/30/23 12:46 Dose: 2 gm Documented By: Admin: 12/30/23 08:30 Dose: 2 gm Documented By: Admin: 12/29/23 22:53 Dose: 2 gm Documented By: Admin: 12/29/23 17:59 Dose: 2 gm Documented By: Admin: 12/29/23 13:06 Dose: Not Given Documented By: Admin: 12/29/23 08:14 Dose: 2 gm Documented By: NIKKI Diclofenac Sodium (Diclofenac Sod 1% Gel 100 Gm Tube) 4 gm EXT QID ON LICENSE OF [facility]; Protocol Stop: 01/28/24 08:59 Last Admin: 12/30/23 12:48 Dose: 4 gm Documented By: Admin: 12/30/23 08:31 Dose: 4 gm Documented By: Admin: 12/29/23 22:54 Dose: 4 gm Documented By: Admin: 12/29/23 17:59 Dose: 4 gm Documented By: Admin: 12/29/23 13:06 Dose: Not Given Documented By: Admin: 12/29/23 08:15 Dose: 4 gm Documented By: NIKKI Haloperidol Lactate (Haloperidol Lactate 5 Mg/Ml 1 Ml Vial) 1 mg IV Q4H PRN PRN Reason: Agitation Stop: 01/28/24 00:07 Last Admin: 12/29/23 17:28 Dose: 1 mg Documented By: Admin: 12/29/23 06:39 Dose: 1 mg Documented By: ED Sodium Chloride (1/2 Nss) 1,000 mls @ 80 mls/hr IV .[id number] ON LICENSE OF [facility] Stop: 12/31/23 08:54 Last Admin: 12/30/23 09:57 Dose: 80 mls/hr Documented By: JAMES Lamotrigine (Lamotrigine 100 Mg Tab) 150 mg PO BIDM ON LICENSE OF [facility] Stop: 01/28/24 07:59 Last Admin: 12/30/23 08:28 Dose: 150 mg Documented By: Admin: 12/29/23 17:58 Dose: 150 mg Documented By: Admin: 12/29/23 09:02 Dose: 150 mg Documented By: NIKKI Tazlina Carbonate (Tazlina Carbonate Slow Rel 300 Mg Tab) 300 mg PO MoWeFr@0900 ON LICENSE OF [facility] Stop: 01/29/24 08:59 Last Admin: 12/30/23 08:32 Dose: 300 mg Documented By: JAMES Lorazepam (Lorazepam 2 Mg/1 Ml Vial) 1 mg IV Q6H ON LICENSE OF [facility] Stop: 01/28/24 01:14 Last Admin: 12/30/23 12:49 Dose: 1 mg Documented By: Admin: 12/30/23 07:14 Dose: 1 mg Documented By: Admin: 12/30/23 01:52 Dose: 1 mg Documented By: Admin: 12/29/23 19:21 Dose: 1 mg Documented By: Admin: 12/29/23 13:05 Dose: 1 mg Documented By: Admin: 12/29/23 06:15 Dose: 1 mg Documented By: Admin: 12/29/23 01:24 Dose: 1 mg Documented By: ANTONIO Magnesium Hydroxide (Magnesium Hydroxide Susp 30 Ml Udc) 30 ml PO DAILY GEORGE Stop: 01/28/24 08:59 Last Admin: 12/30/23 08:33 Dose: 30 ml Documented By: Admin: 12/29/23 08:16 Dose: 30 ml Documented By: NIKKI Olanzapine (Olanzapine 5 Mg Tablet) 5 mg PO QAM GEORGE Stop: 01/28/24 08:59 Last Admin: 12/30/23 08:33 Dose: 5 mg Documented By: Admin: 12/29/23 09:02 Dose: 5 mg Documented By: NIKKI Olanzapine (Olanzapine 20 Mg Tablet) 20 mg PO QDD ON LICENSE OF [facility] Stop: 01/28/24 16:29 Last Admin: 12/29/23 17:58 Dose: 20 mg Documented By: AMOS [place] [address] IN/OBS CONSULT LVL 5,80M Patient Type New History Detailed Exam Detailed Medical Decision Making Moderate Complexity Diagnoses Schizoaffective disorder, bipolar type F25.0
--- NOTE | 2023-12-30 15:42 | Billing Data ---
Date of Service December 30, 2023 Coding Level of Care Code 35847 SUB INP/OBS CARE
[2023-12-30] MEDS: HALOPERIDOL LACTATE 5 MG/ML 1 ML VIAL IM PRN (21:33)
--- NOTE | 2023-12-31 00:30 | Electrocardiogram Report ---
Test Reason : Blood Pressure : */* mmHG Vent. Rate : 83 BPM Atrial Rate : 83 BPM P-R Int : 146 ms QRS Dur : 120 ms QT Int : 426 ms P-R-T Axes : 26 54 106 degrees QTcB Int : 500 ms Normal sinus rhythm Non-specific intra-ventricular conduction delay Nonspecific ST and T wave abnormality Abnormal ECG When compared with ECG of 14-Jul-2023 16:18, No significant change was found Confirmed by Luan Oleary ([id number]) on 12/31/2023 12:29:40 AM Referred By: [facility] Confirmed By: Luan Oleary
[2023-12-31 06:58] LABS: BUN Creatinine Ratio 7.3 (10-20); Calcium 9.2 mg/dl (8.6-10.3); Creatinine Clr Calc Pharmacy 17.3 ml/min; Est GFR (African American) 22.1 ml/min; Est GFR (Non-African American) 19.1 ml/min; Potassium 4.1 mmol/L (3.5-5.1)
[2023-12-31] MEDS: DEXTROSE 5% 1,000 ML IV SCH (09:13)
--- NOTE | 2023-12-31 13:40 | Psychiatric Progress Note ---
Date of Service December 31, 2023 Impression / Recommendations Impression 73-year-old woman with history of schizoaffective disorder, bipolar type who presents with recent agitation and aggressive behavior in her intermediate ([facility]). She has been restless and presented self-harm behaviors including banging head and limbs against wall. She has elevated creatinine with progressive renal dysfunction due to long-term lithium use. Psychiatry consulted for evaluation and management. Diagnostically consistent with schizoaffective disorder current episode of acute stefan. Most recent Clyman level is 0.4 and subtherapeutic. Given ongoing symptoms of stefan and poor efficacy of prior and recent alternative mood stabilizers and already on two antipsychotic medications it is felt that risk of further renal impairment is outweighed by benefit of lithium titration for mood stabilization given significant negative impacts from current manic episode including self-harming and disorganized behaviors to the point of sustaining a metacarpal fracture. Overall, I spent a total of 50 minutes with this case including review of chart records, nursing report, review of lab work, direct evaluation of the patient at bedside, counseling the patient, discussion of the patient with the hospitalist provider, discussion with the psychiatric liaison during clinical rounds, and documentation in the electronic health record. (1) Schizoaffective disorder, bipolar type: Plan -Remains on 302 commitment, cannot leave AMA; geriatric psychiatry bed search once medically stable -Continue 1-on-1 -Increase Clyman to 300mg daily -Repeat Clyman in 4 days -Continue Carpiprazine 3mg BID -Continue Olanzapine 5mg QAM, 20mg QDD -Continue Lamotrigine 150mg BIDPM -Hold Depakote Interval History Identifying Information 73-year-old female history of schizoaffective disorder, bipolar type who presents with recent agitation and aggressive behavior in her intermediate ([facility]). Patient has been restless and presented self-harm behaviors including banging head and limbs against wall. Patient has elevated creatinine with progressive renal dysfunction due to long-term lithium use. Psychiatry consulted for evaluation and management. Chief Complaint "Ice cream cone". Subjective Subjective Patient was seen & assessed and interval progress reviewed. She required IM haldol and ativan overnight, unclear based on documentation rationale. Today she had difficulty communicating and being audible during the encounter. No clear response obtained to any of my questions. She did state wanting an ice cream cone. Physical Exam Psychiatric Orientation: alert Apperance: + disheveled Eye Contact: + fair eye contact Motor Behavior: + psychomotor agitation Speech: + abnormal rate/rhythm/volume of speech (incoherent, garbled ) Affect: + labile affect Thought Process: + looseness of associations Insight: + limited insight Judgment: + limited judgement Vital Signs (Past 24 Hours) Last Vital Signs Temp 36.1 C L 12/31/23 07:34 Pulse 90 12/31/23 07:34 Resp 18 12/31/23 07:34 BP 165/94 H 12/31/23 07:34 Pulse Ox 93 12/31/23 07:34 O2 Del Method Room Air 12/31/23 07:34 Results & Data ([facility]) Laboratory Results Laboratory Results - last 24 hr 12/31/23 06:21 Sodium 151 H Potassium 4.1 Chloride 117 H Carbon Dioxide 26 Anion Gap 8 BUN 18 Creatinine 2.46 H Est Cr Clr Drug Dosing 17.3 Est GFR ( Amer) 22.1 Est GFR (Non-Af Amer) 19.1 BUN/Creatinine Ratio 7.3 L Glucose 132 H Calcium 9.2 Current Inpatient Medications Current Inpatient Medications: Current Inpatient Medications Acetaminophen (Acetaminophen 325 Mg Tab) 650 mg PO QID PRN PRN Reason: Fever Or Pain Stop: 01/28/24 00:40 Last Admin: 12/30/23 12:45 Dose: 650 mg Bisacodyl (Bisacodyl 10 Mg Supp) 10 mg NC DAILY PRN PRN Reason: Constipation Stop: 01/28/24 00:40 Cariprazine (Cariprazine Hcl 3 Mg Cap) 3 mg PO BIDM GEORGE Stop: 01/28/24 07:59 Last Admin: 12/31/23 08:41 Dose: 3 mg Diclofenac Sodium (Diclofenac Sod 1% Gel 100 Gm Tube) 2 gm EXT QID GEORGE; Protocol Stop: 01/28/24 08:59 Last Admin: 12/31/23 12:37 Dose: 2 gm Diclofenac Sodium (Diclofenac Sod 1% Gel 100 Gm Tube) 4 gm EXT QID GEORGE; Protocol Stop: 01/28/24 08:59 Last Admin: 12/31/23 12:37 Dose: 4 gm Divalproex Sodium (Divalproex Delay Release 250 Mg Tabec) 250 mg PO BIDM GEORGE Stop: 01/28/24 07:59 Haloperidol Lactate (Haloperidol Lactate 5 Mg/Ml 1 Ml Vial) 1 mg IM Q4H PRN PRN Reason: Agitation Stop: 01/28/24 00:07 Last Admin: 12/31/23 02:23 Dose: 1 mg Dextrose (D5w) 1,000 mls @ 125 mls/hr IV .Q8H [facility] Stop: 12/31/23 16:14 Last Admin: 12/31/23 09:13 Dose: 125 mls/hr Lamotrigine (Lamotrigine 100 Mg Tab) 150 mg PO BIDM GEORGE Stop: 01/28/24 07:59 Last Admin: 12/31/23 08:41 Dose: 150 mg Clyman Carbonate (Clyman Carbonate Slow Rel 300 Mg Tab) 300 mg PO MoWeFr@0900 [facility] Stop: 01/29/24 08:59 Last Admin: 12/30/23 08:32 Dose: 300 mg Lorazepam (Lorazepam 2 Mg/1 Ml Vial) 1 mg IV Q6H GEORGE Stop: 01/28/24 01:14 Last Admin: 12/31/23 12:32 Dose: 1 mg Magnesium Hydroxide (Magnesium Hydroxide Susp 30 Ml Udc) 30 ml PO DAILY GEORGE Stop: 01/28/24 08:59 Last Admin: 12/31/23 08:41 Dose: 30 ml Olanzapine (Olanzapine 5 Mg Tablet) 5 mg PO QAM GEORGE Stop: 01/28/24 08:59 Last Admin: 12/31/23 08:41 Dose: 5 mg Olanzapine (Olanzapine 20 Mg Tablet) 20 mg PO QDD [facility] Stop: 01/28/24 16:29 Last Admin: 12/30/23 17:19 Dose: 20 mg
[2023-12-31 15:13] LABS: BUN Creatinine Ratio 7.7 (10-20); Calcium 9.6 mg/dl (8.6-10.3); Creatinine Clr Calc Pharmacy 16.4 ml/min; Est GFR (African American) 20.8 ml/min; Est GFR (Non-African American) 17.9 ml/min; Potassium 4.1 mmol/L (3.5-5.1)
--- NOTE | 2023-12-31 16:29 | Hospitalist Progress Note ---
Date of Service December 31, 2023 Assessment & Plan (1) Bipolar disorder: Plan: - Under close observation; Vitals stable - Haldol 1mg IV q 4 hours as needed for agitation; 2 doses last night for acute agitation - Zyprexa 20mg + 5mg po daily - Ativan 1mg IV q 6 hours scheduled - hold for sedation - Continued Cariprazine 3mg po BID/ Divalproex/ Lamictal/ Virgin - level is slightly low at 0.4 - Psychiatry consulted, recommendations: Add dose of Virgin 300 mg tomorrow - Change Virgin schedule from /Tue to /Tue/Tue, draw levels Tuesday - Continue Cariprazine 3mg BID, Olanzapine 20 mg QDD, Lamotrigine 150mg BIDPM - Hold Depakote (2) Elevated troponin: Plan: - No ischemic changes present on EKG - Repeat troponin : 28.5---28.1 (3) Rhabdomyolysis: Plan: - Patient with elevation of DV=525 reduced to 495 12/28. UA with presence of blood without RBC. Renal function is overall near baseline. - IVF with Plasmalyte started yesterday; patient very uncooperative for IVF - Will continue to monitor status (4) Right hand fracture: Plan: - Patient with proximal second metacarpal fracture noted of the right hand. Splint was placed in ER - Per ortho surgery not recommended, but Cock-up splint or no splint recommended prior to transition to [facility] - Pain control with Tylenol PRN (5) Hypernatremia: Plan: - Mild hypernatremia; likely secondary to dehydration - Improving; Na: 151->148 - Dextrose 1L @ 125ml/hr started - Symptoms assessment is challenging in her current status. - Reassess lab for further management Admission and Anticipated Discharge Date Admission Date: December 28, 2023 Supervising Physician Co-Signing Physician Notes I personally examined the patient and verified all mann points of history and exam, discussed case, and agree with decision making with Dr Friedman No meaningful HPI review of systems obtainable. one-to-one sitter notes that she has been relatively calm. She is coloring a puppy whenever I enter the room. Vitals noted, in general she is awake and alert appears to be calm. No physical distress. HEENT normocephalic atraumatic mucous membranes moist. Breathing unlabored no accessory muscle use good effort. Skin without rashes pallor or icterus. Bipolar/schizoaffectiveself-harm, hand fracture, superimposed on chronic systolic CHF and CKD stage IV/mild demand ischemia due to her agitation with both of those at baselinesupportive care, await psychiatric bed. hypernatremia almost certainly from poor PO intake - But at the same time given that she is on lithium and dose will need to be raisedchecking urine/serum awesome's and urine sodium to get a feel for any type of diabetes insipidushowever, given this is almost certainly due to poor p.o. intake, gave a liter of D5W today and sodium improved. Continue to follow. Trying to be gentle with the fluids given her CHF/CKD, as well as given her agitation, trying to minimize things that would be disruptive, so as long as p.o. intake starts to improve her sodium alone, obviously that would be preferred. Zoie Medley was seen this morning resting comfortably in bed. Nursing reports that patient was admitted late last night and was yelling, agitated, and flailing her arms and legs around. Haloperidol 1mg IM x2 was used overnight and patient was able to calm down. This morning the patient is only oriented to self and does not report any pain. Patient's mental status was labile this morning, in a couple of minutes she was laughing while coloring to anxious, crying and rolling around her bed. Patient is waiting on transfer to a geriatric psychiatric facility as her acute conditions stabilize. Physical Exam Physical Exam: General: patient resting comfortably, NAD, non-toxic in appearance, answers questions appropriately. Skin: warm, dry, intact HEENT: NC/AT, anicteric sclera, conjunctiva without injection, moist mucus membranes. Heart: +S1/S2, regular, no m/r/g Lungs: equal air entry bilaterally, no rales/rhonchi/wheezes Abd: +BS, soft, NT/ND Ext: warm, no clubbing/cyanosis or edema Neuro: nonfocal, speech intact, no facial droop, moving all extremities. Results & Data Results & Data Vital Signs (Past 12 Hours) Vital Signs Temp Pulse Resp BP Pulse Ox O2 Del Method 12/31/23 14:40 36.8 C 95 H 19 175/91 H 93 Room Air 12/31/23 12:15 Room Air 12/31/23 07:34 36.1 C L 90 18 165/94 H 93 Room Air Laboratory Results Abnormal lab results 12/31/23 12/31/23 Range/Units 06:21 14:43 Sodium 151 H 148 H (136-145) mmol/L Chloride 117 H 115 H (98-107) mmol/L Creatinine 2.46 H 2.59 H (0.6-1.2) mg/dl BUN/Creatinine Ratio 7.3 L 7.7 L (10-20) Glucose 132 H 159 H (70-99(Fasting)) mg/dl Resident Activity Tracking Resident Involvement: Resident Care Provided Care Provided: Adult [facility] (1) Bipolar disorder Active/Remission status: remission status unspecified Qualified Code(s): F31.9 - Bipolar disorder, unspecified (3) Rhabdomyolysis Encounter type: initial encounter Rhabdomyolysis type: traumatic Qualified Code(s): T79.6XXA - Traumatic ischemia of muscle, initial encounter (4) Right hand fracture Encounter type: initial encounter Fracture type: closed Qualified Code(s): S62.91XA - Unspecified fracture of right wrist and hand, initial encounter for closed fracture
--- NOTE | 2023-12-31 18:39 | Billing Data ---
Date of Service December 31, 2023 Coding Level of Care Code 69273 SUB INP/OBS CARE MIN
--- NOTE | 2023-12-31 18:41 | Billing Data ---
Date of Service December 31, 2023 Coding Level of Care Code 86344 SUB INP/OBS CARE MIN
[2024-01-01 06:27] LABS: BUN Creatinine Ratio 6.6 (10-20); Calcium 8.9 mg/dl (8.6-10.3); Creatinine Clr Calc Pharmacy 16.4 ml/min; Est GFR (African American) 20.8 ml/min; Est GFR (Non-African American) 17.9 ml/min; Potassium 3.9 mmol/L (3.5-5.1)
[2024-01-01] MEDS: DIVALPROEX DELAY RELEASE 250 MG TABEC PO SCH (09:37)
[2024-01-01] MEDS: LITHIUM CARBONATE SLOW REL 300 MG TAB PO SCH (09:41)
--- NOTE | 2024-01-01 11:26 | Psychiatric Progress Note ---
Date of Service January 01, 2024 Impression / Recommendations Impression 73-year-old woman with history of schizoaffective disorder, bipolar type who presents with recent agitation and aggressive behavior in her alf ([facility]). She has been restless and presented self-harm behaviors including banging head and limbs against wall. She has elevated creatinine with progressive renal dysfunction due to long-term lithium use. Psychiatry consulted for evaluation and management. Diagnostically consistent with schizoaffective disorder current episode of acute stefan. Most recent [place] level is 0.4 and subtherapeutic. Given ongoing symptoms of stefan and poor efficacy of prior and recent alternative mood stabilizers and already on two antipsychotic medications it is felt that risk of further renal impairment is outweighed by benefit of lithium titration for mood stabilization given significant negative impacts from current manic episode including self-harming and disorganized behaviors to the point of sustaining a metacarpal fracture. A: Continue with plan for lithium increase to treat stefan, does not appear that she received a dose of lithium yesterday, dose changed ordered to start today. Plan for geriatric psychiatry placement, currently on 302. Now with fabric removable hand brace for metacarpal fracture. The patient remains hospitalized on a completed 302 involuntary commitment, which if not extended, will on 01/04/2024 @ 1525. This patient must remain on safety precautions with a 1-on-1 and is unable to leave the hospital AMA. Overall, I spent a total of 25 minutes with this case including review of chart records, nursing report, review of lab work, direct evaluation of the patient at bedside, discussion with the psychiatric liaison during clinical rounds, and documentation in the electronic health record. (1) Schizoaffective disorder, bipolar type: Plan -Remains on 302 commitment, cannot leave AMA; geriatric psychiatry bed search once medically stable -Continue 1-on-1 -Increase [place] to 300mg daily -Repeat [place] level in 3-5 days -Continue Carpiprazine 3mg BID -Continue Olanzapine 5mg QAM, 20mg QDD -Continue Lamotrigine 150mg BIDPM -Hold Depakote Interval History Identifying Information 73-year-old female history of schizoaffective disorder, bipolar type who presents with recent agitation and aggressive behavior in her alf ([facility]). Patient has been restless and presented self-harm behaviors including banging head and limbs against wall. Patient has elevated creatinine with progressive renal dysfunction due to long-term lithium use. Psychiatry consulted for evaluation and management. Chief Complaint sleeping Subjective Subjective Patient was seen & assessed and interval progress reviewed. Required IM haldol and ativan overnight due to agitation and restlessness. This morning is sleeping and felt to be countertherapeutic to wake her. Physical Exam Vital Signs (Past 24 Hours) Last Vital Signs Temp 36.7 C 01/01/24 07:37 Pulse 93 H 01/01/24 07:37 Resp 22 01/01/24 07:37 BP 169/95 H 01/01/24 07:37 Pulse Ox 92 01/01/24 07:37 O2 Del Method Room Air 01/01/24 10:24 Results & Data ([facility] [place]) Laboratory Results Laboratory Results - last 24 hr 12/31/23 01/01/24 14:43 05:40 Sodium 148 H 146 H Potassium 4.1 3.9 Chloride 115 H 114 H Carbon Dioxide 27 24 Anion Gap 6 8 BUN 20 17 Creatinine 2.59 H 2.59 H Est Cr Clr Drug Dosing 16.4 16.4 Est GFR ( Amer) 20.8 20.8 Est GFR (Non-Af Amer) 17.9 17.9 BUN/Creatinine Ratio 7.7 L 6.6 L Glucose 159 H 121 H Osmolality 308 H Calcium 9.6 8.9 Current Inpatient Medications Current Inpatient Medications: Current Inpatient Medications Acetaminophen (Acetaminophen 325 Mg Tab) 650 mg PO QID PRN PRN Reason: Fever Or Pain Stop: 01/28/24 00:40 Last Admin: 12/30/23 12:45 Dose: 650 mg Bisacodyl (Bisacodyl 10 Mg Supp) 10 mg NH DAILY PRN PRN Reason: Constipation Stop: 01/28/24 00:40 Cariprazine (Cariprazine Hcl 3 Mg Cap) 3 mg PO BIDM [facility] Stop: 01/28/24 07:59 Last Admin: 01/01/24 09:37 Dose: 3 mg Diclofenac Sodium (Diclofenac Sod 1% Gel 100 Gm Tube) 2 gm EXT QID GEORGE; Protocol Stop: 01/28/24 08:59 Last Admin: 01/01/24 09:37 Dose: 2 gm Diclofenac Sodium (Diclofenac Sod 1% Gel 100 Gm Tube) 4 gm EXT QID GEORGE; Protocol Stop: 01/28/24 08:59 Last Admin: 01/01/24 09:37 Dose: 4 gm Divalproex Sodium (Divalproex Delay Release 250 Mg Tabec) 250 mg PO BIDM [facility] Stop: 01/28/24 07:59 Last Admin: 01/01/24 09:37 Dose: 250 mg Haloperidol Lactate (Haloperidol Lactate 5 Mg/Ml 1 Ml Vial) 1 mg IM Q4H PRN PRN Reason: Agitation Stop: 01/28/24 00:07 Last Admin: 01/01/24 02:18 Dose: 1 mg Lamotrigine (Lamotrigine 100 Mg Tab) 150 mg PO BIDM [facility] Stop: 01/28/24 07:59 Last Admin: 01/01/24 09:36 Dose: 150 mg Coffeen Carbonate (Coffeen Carbonate Slow Rel 300 Mg Tab) 300 mg PO DAILY [facility] Stop: 01/31/24 09:29 Lorazepam (Lorazepam 2 Mg/1 Ml Vial) 1 mg IV Q6H [facility] Stop: 01/28/24 01:14 Last Admin: 01/01/24 07:49 Dose: 1 mg Magnesium Hydroxide (Magnesium Hydroxide Susp 30 Ml Udc) 30 ml PO DAILY [facility] Stop: 01/28/24 08:59 Last Admin: 01/01/24 09:38 Dose: Not Given Olanzapine (Olanzapine 5 Mg Tablet) 5 mg PO QAM [facility] Stop: 01/28/24 08:59 Last Admin: 01/01/24 09:38 Dose: 5 mg Olanzapine (Olanzapine 20 Mg Tablet) 20 mg PO QDD [facility] Stop: 01/28/24 16:29 Last Admin: 12/31/23 16:24 Dose: 20 mg
--- NOTE | 2024-01-01 18:19 | Hospitalist Progress Note ---
Date of Service January 01, 2024 Assessment & Plan (1) Bipolar disorder: Plan: - not safe at SNF right now despite significant escalation in safety measures - appreciate inpatient psych assistance - working on geriatric psych placement (2) Elevated troponin: Plan: - extremely mild demand ischemia (3) Rhabdomyolysis: Plan: - very mild rhabdo (4) Right hand fracture: Plan: - splint, supportive care, time (5) Hypernatremia: Plan: - clinically fits the best with poor PO intake and largely has responded as such; however, with lithium concern on DI - and urine lytes do suggest somewhat this could be at play - at the same time, for now, given that it's not clear that this is the case - follow how she does with/without IV fluid, follow UO, follow BMP. (risk/benefit favors managing psych issues as best as possible and following for if this truly evolves to be c/w DI before moving to lesser possible treatments given how poorly she has been doing psychiatrically) Admission and Anticipated Discharge Date Admission Date: December 28, 2023 Subjective no meaningful hPI or ROS obtainable. PO intake adequate and UO reaosnable but not excessive per bedside 1:1 Review of Systems Review of Systems: Unobtainable due to cognitive status Physical Exam Physical Exam: gen awake pleasant laying in bed half asleep but makes eye contact. vitals noted nad heent nc at mmm breathing unlabored no accessory muscles good effort skin no rashes no pallor Results & Data Results & Data Vital Signs (Past 12 Hours) Vital Signs Temp Pulse Resp BP Pulse Ox O2 Del Method 01/01/24 14:48 98.1 F 95 H 20 147/83 H 93 Room Air 01/01/24 10:24 Room Air 01/01/24 07:37 98.1 F 93 H 22 169/95 H 92 Room Air PG Care Time/CCT Total # of Minutes Spent Total Time Spent with Patient: Total time spent is greater than 50% in coordination of care (as documented) at patient's floor/unit and/or counseling patient: Coding Level of Care Code 92090 SUB INP/OBS CARE 3/50MIN Diagnoses Bipolar affective disorder, remission status unspecified F31.9 Active/Remission status: remission status unspecified Elevated troponin R79.89 Rhabdomyolysis T79.6XXA Encounter type: initial encounter Rhabdomyolysis type: traumatic Right hand fracture S62.91XA Encounter type: initial encounter Fracture type: closed Hypernatremia E87.0 (1) Bipolar disorder Active/Remission status: remission status unspecified Qualified Code(s): F31.9 - Bipolar disorder, unspecified (3) Rhabdomyolysis Encounter type: initial encounter Rhabdomyolysis type: traumatic Qualified Code(s): T79.6XXA - Traumatic ischemia of muscle, initial encounter (4) Right hand fracture Encounter type: initial encounter Fracture type: closed Qualified Code(s): S62.91XA - Unspecified fracture of right wrist and hand, initial encounter for closed fracture
--- NOTE | 2024-01-01 18:25 | Hospitalist Progress Note ---
Date of Service January 01, 2024 Assessment & Plan (1) Bipolar disorder: Plan: - Under close observation; Vitals stable - Haldol 1mg IV q 4 hours as needed for agitation; 2 doses last night for acute agitation - Zyprexa 20mg + 5mg po daily - Ativan 1mg IV q 6 hours scheduled - hold for sedation - Continued Cariprazine 3mg po BID/ Divalproex/ Lamictal/ [place] - level is slightly low at 0.4 - Psychiatry consulted, recommendations: Add dose of [place] 300 mg tomorrow - Change [place] schedule from /Tue to /Tue/Tue, draw levels Tuesday - Continue Cariprazine 3mg BID, Olanzapine 20 mg QDD, Lamotrigine 150mg BIDPM - Hold Depakote (2) Hypernatremia: Plan: - Mild hypernatremia; likely secondary to dehydration - Improving; Na: 151->148 - Symptoms assessment is challenging in her current status. - Started half NSS 1L @ 80ml/hr to correct hypernatremia - BMP QAM (3) Right hand fracture: Plan: - Patient with proximal second metacarpal fracture noted of the right hand. Splint was placed in ER - Per ortho surgery not recommended, but Cock-up splint or no splint recommended prior to transition to [facility] - Pain control with Tylenol PRN (4) Elevated troponin: Plan: - No ischemic changes present on EKG - Repeat troponin : 28.5---28.1 (5) Rhabdomyolysis: Plan: - Patient with elevation of KU=971 reduced to 495 12/28. UA with presence of blood without RBC. Renal function is overall near baseline. - IVF with Plasmalyte started yesterday; patient very uncooperative for IVF - Will continue to monitor status Admission and Anticipated Discharge Date Admission Date: December 28, 2023 Supervising Physician Co-Signing Physician Notes I personally examined the patient and verified all mann points of history and exam, discussed case, and agree with decision making with Dr Friedman see my note written same date. following hypernatremia for small possibility of lithium induced DI. Zoie Medley was seen this morning resting comfortably in bed. This morning the patient is only oriented to self and does not report any pain. Patient is waiting on transfer to a geriatric psychiatric facility as her acute conditions stabilize. Patient does not express any signs of pain, there is a brace on her left hand that is secure. No major concerns. bowel medication were held this morning due to reports of liquid BMs. Continued 1:1 observation and floor mats on sides of bed placed for safety. Physical Exam Physical Exam: General: patient resting comfortably, NAD, non-toxic in appearance Skin: warm, dry, intact HEENT: NC/AT, anicteric sclera, conjunctiva without injection, moist mucus membranes. Heart: +S1/S2, regular, no m/r/g Lungs: equal air entry bilaterally, no rales/rhonchi/wheezes Abd: +BS, soft, NT/ND Ext: warm, no clubbing/cyanosis or edema Neuro: nonfocal, speech intact, no facial droop, moving all extremities. Results & Data Results & Data Vital Signs (Past 12 Hours) Vital Signs Temp Pulse Resp BP Pulse Ox O2 Del Method 01/01/24 14:48 36.7 C 95 H 20 147/83 H 93 Room Air 01/01/24 10:24 Room Air 01/01/24 07:37 36.7 C 93 H 22 169/95 H 92 Room Air Resident Activity Tracking Resident Involvement: Resident Care Provided Care Provided: Adult Hospital Medicine (1) Bipolar disorder Active/Remission status: remission status unspecified Qualified Code(s): F31.9 - Bipolar disorder, unspecified (3) Right hand fracture Encounter type: initial encounter Fracture type: closed Qualified Code(s): S62.91XA - Unspecified fracture of right wrist and hand, initial encounter for closed fracture (5) Rhabdomyolysis Encounter type: initial encounter Rhabdomyolysis type: traumatic Qualified Code(s): T79.6XXA - Traumatic ischemia of muscle, initial encounter
[2024-01-01] MEDS: SODIUM CHLORIDE 0.45 % 1,000 ML IV SCH (18:34)
[2024-01-02 07:09] LABS: BUN Creatinine Ratio 7.3 (10-20); Calcium 8.7 mg/dl (8.6-10.3); Creatinine Clr Calc Pharmacy 17.2 ml/min; Potassium 4.3 mmol/L (3.5-5.1)
--- NOTE | 2024-01-02 07:35 | Hospitalist Progress Note ---
Date of Service January 02, 2024 Assessment & Plan (1) Schizoaffective disorder, bipolar type: Plan: [place] level as of Tuesday01/01/24: awaiting result Following recommendations per psychiatry consultation: Plan -Remain on 302 commitment, cannot leave AMA; geriatric psychiatry bed search underway -Continue 1-on-1 observation -Increase [place] to 300mg daily, first dose this morning 9am. -Repeat [place] level in 3-5 days - lithium schedule now Tuesday/Tue/Tue/Tue (added Tuesday) -Continue Carpiprazine 3mg BID -Continue Olanzapine 5mg QAM, 20mg QDD -Continue Lamotrigine 150mg BIDPM -Hold Depakote PRNs: - Haldol 1mg IV q 4 hours as needed for agitation; 2 doses last night for acute agitation - Ativan 1mg IV q 6 hours scheduled - hold for sedation Present on Admission?: Yes (2) Hypernatremia: Plan: - had mild hypernatremia, secondary to dehydration vs nephrogenic diabetes insipidus - Improving - Na: 151->148 -> 145 resolved as of this morning - Symptoms assessment is challenging in her current status. - was on half NSS 1L @ 80ml/hr to correct hypernatremia - continue BMP QAM (3) Hypertension: Plan: BP 161/69 this morning, has been mainly systolic 140s-160s and diastolic 60s-90s over past 2 days - consider BP-lowering agent if continues to increase (4) CKD (chronic kidney disease): Plan: per history, stage IV CKD Creatitine: 2.47 (normal range 0.6-1.2) BUN/Cr ratio: 7.3 (low) - continue PO hydration, IV fluids if unable to take PO (5) Hyperchloremia: Plan: elevated chloride: currently 116 (normal range 98-107) - continue IV hydration (6) Right hand fracture: Plan: - Patient with proximal second metacarpal fracture noted of the right hand. Splint was placed in ER - Per ortho surgery not recommended, but Cock-up splint or no splint recommended prior to transition to [facility] - Pain control with Tylenol PRN (7) Elevated troponin: Plan: - likely in the setting of demand ischemia due to volume-contracted state - No ischemic changes present on EKG - was 28.5 on 12/27 -> 28.1 on 12/28 (8) Rhabdomyolysis: Plan: - Patient with elevation of VP=918 reduced to 495 12/28. UA with presence of blood without RBC. Renal function is overall near baseline. - IVF with Plasmalyte started yesterday; patient very uncooperative for IVF - Will continue to monitor status Admission and Anticipated Discharge Date Admission Date: December 28, 2023 Supervising Physician Co-Signing Physician Notes ATTESTATION I also saw the patient and confirmed mann portions of the history and exam. I agree with the impression and plan in the resident documentation, and as summarized below. Sleeping but awakens to voice. No distress appreciated. We did open up the blinds in the room which were previously closed. One-to-one at bedside. EXAM Slightly hypertensive at 161/69. Heart rate 91, respirations 17. Pulse oximetry 90% on room air Heart regular rate slightly tachycardic Respirations unlabored DATA Labs Sodium 145, potassium 4.3, BUN 18, creatinine 2.47. IMPRESSION & PLAN Schizoaffective disorder, bipolar type Psychiatry consultation appreciated Agree with plan as noted above Bed search is underway; she is medically stable for transfer when bed identifi ed. Additional per resident documentation Subjective This morning, patient was seen at bedside resting comfortably with floor cushions on either side of bed, 1:1 present. No meaningful HPI or ROS obtainable, very hard of hearing, appearing relaxed and non-agitated. Patient answered "hospital" when gauging orientation, but was not able to answer other orientation questions to self, , time, etc. Started to become teary and emotional after stating she was in the hospital, but quickly resolved. PO intake adequate and UO reasonable but not excessive per bedside 1:1 Review of Systems Review of Systems: Unobtainable due to cognitive status Physical Exam Constitutional: WD/WN, vitals as above well developed Eyes: PERRL, conjunctivae normal, anicteric sclerae ENMT: slight tongue thrusting on visual inspection, may have degree of tardive dyskinesia due to chronic antipsychotic use Neck: trachea midline, no thyromegaly Respiratory: normal respiratory effort, lungs clear to auscultation Cardiovascular: RRR, no murmur, no edema Gastrointestinal (Abdomen): Inspection/Auscultation: abdomen normal to inspection and normal bowel sounds Skin: no rashes, warm and dry Neurologic: + confused Speech / Cognition: + abno rmal speech and + abnormal cognition Psychiatric: Orientation: alert Eye Contact: + fair eye contact Affect: + labile affect Thought Process: + word salad Genitourinary: able to understand most words patient says, but context is mostly unclear possibly oriented to place, but could not understand patient's response for orientation to self Results & Data Results & Data Vital Signs (Past 12 Hours) Vital Signs Temp Pulse Resp BP Pulse Ox O2 Del Method 01/02/24 07:28 36.2 C L 91 H 17 161/69 H 98 Room Air 01/01/24 19:45 Room Air 01/01/24 14:48 36.7 C 95 H 20 147/83 H 93 Room Air 01/01/24 10:24 Room Air 01/01/24 07:37 36.7 C 93 H 22 169/95 H 92 Room Air Intake and Output 01/01/24 01/02/24 01/02/24 22:59 06:59 14:59 Intake Total 200 / 465 1000 / 1000 Output Total 225 / 225 Balance -25 / 240 1000 / 1000 Intake: IV 1000 / 1000 Sodium Chloride 0.45 % 1,000 ml 1000 / 1000 @ 80 mls/hr IV .[id number] GEORGE Rx #:[id number] Oral 200 / 465 Output: Urine 225 / 225 Other: # Unmeasured Voids 2 Laboratory Results Abnormal lab results 01/01/24 01/02/24 Range/Units 15:23 06:18 Chloride 116 H (98-107) mmol/L Creatinine 2.47 H (0.6-1.2) mg/dl BUN/Creatinine Ratio 7.3 L (10-20) Glucose 100 H (70-99(Fasting)) mg/dl Urine Osmolality 169 L (500-800) mOsm/kg Resident Activity Tracking Resident Involvement: Resident Care Provided Care Provided: Adult Hospital Medicine (4) CKD (chronic kidney disease) Chronic kidney disease stage: stage 4 (severe) Qualified Code(s): N18.4 - Chronic kidney disease, stage 4 (severe) (6) Right hand fracture Encounter type: initial encounter Fracture type: closed Qualified Code(s): S62.91XA - Unspecified fracture of right wrist and hand, initial encounter for closed fracture (8) Rhabdomyolysis Encounter type: initial encounter Rhabdomyolysis type: traumatic Qualified Code(s): T79.6XXA - Traumatic ischemia of muscle, initial encounter
--- NOTE | 2024-01-02 12:25 | Psychiatric Progress Note ---
Date of Service January 02, 2024 Impression / Recommendations Impression 73-year-old woman with history of schizoaffective disorder, bipolar type who presents with recent agitation and aggressive behavior in her long term ([facility]). She has been restless and presented self-harm behaviors including banging head and limbs against wall. She has elevated creatinine with progressive renal dysfunction due to long-term lithium use. Psychiatry consulted for evaluation and management. Diagnostically consistent with schizoaffective disorder current episode of acute stefan. Most recent [place] level is 0.4 and subtherapeutic. Given ongoing symptoms of stefan and poor efficacy of prior and recent alternative mood stabilizers and already on two antipsychotic medications it is felt that risk of further renal impairment is outweighed by benefit of lithium titration for mood stabilization given significant negative impacts from current manic episode including self-harming and disorganized behaviors to the point of sustaining a metacarpal fracture. A: Showing some improvement in behavioral and thought organization, no side effects observed so far from increased [place] frequency. The patient remains hospitalized on a completed 302 involuntary commitment, which if not extended, will on 01/04/2024 @ 1525. This patient must remain on safety precautions with a 1-on-1 and is unable to leave the hospital AMA. Overall, I spent a total of 25 minutes with this case including review of chart records, nursing report, review of lab work, direct evaluation of the patient at bedside, discussion with the psychiatric liaison during clinical rounds, and documentation in the electronic health record. (1) Schizoaffective disorder, bipolar type: Plan -Remains on 302 commitment, cannot leave AMA; geriatric psychiatry bed search once medically stable -Continue 1-on-1 -Continue with increased [place] 300mg daily -Repeat [place] level in 4-6 days -Continue Carpiprazine 3mg BID -Continue Olanzapine 5mg QAM, 20mg QDD -Continue Lamotrigine 150mg BIDPM -Hold Depakote Interval History Identifying Information 73-year-old female history of schizoaffective disorder, bipolar type who presents with recent agitation and aggressive behavior in her long term ([facility]). Patient has been restless and presented self-harm behaviors including banging head and limbs against wall. Patient has elevated creatinine with progressive renal dysfunction due to long-term lithium use. Psychiatry consulted for evaluation and management. Chief Complaint "I have to use the bathroom". Subjective Subjective Patient was seen & assessed and interval progress reviewed. Did not require any IM medications overnight, took [place] yesterday. Today improved behavioral organization, sitting up and eating with assistance of RN and 1-on-1. Easier to understand but still with difficulty hearing. Physical Exam Vital Signs (Past 24 Hours) Last Vital Signs Temp 36.2 C L 01/02/24 07:28 Pulse 91 H 01/02/24 07:28 Resp 17 01/02/24 07:28 BP 161/69 H 01/02/24 07:28 Pulse Ox 98 01/02/24 07:28 O2 Del Method Room Air 01/02/24 08:40 Results & Data ([facility]) Laboratory Results Laboratory Results - last 24 hr 01/01/24 01/02/24 15:23 06:18 Sodium 145 Potassium 4.3 Chloride 116 H Carbon Dioxide 26 Anion Gap 3 BUN 18 Creatinine 2.47 H Est Cr Clr Drug Dosing 17.2 Est GFR ( Amer) 22.0 Est GFR (Non-Af Amer) 19.0 BUN/Creatinine Ratio 7.3 L Glucose 100 H Calcium 8.7 Urine Osmolality 169 L Ur Random Sodium 38 Current Inpatient Medications Current Inpatient Medications: Current Inpatient Medications Acetaminophen (Acetaminophen 325 Mg Tab) 650 mg PO QID PRN PRN Reason: Fever Or Pain Stop: 01/28/24 00:40 Last Admin: 01/02/24 09:39 Dose: 650 mg Bisacodyl (Bisacodyl 10 Mg Supp) 10 mg RI DAILY PRN PRN Reason: Constipation Stop: 01/28/24 00:40 Cariprazine (Cariprazine Hcl 3 Mg Cap) 3 mg PO BIDM [facility]ORGE Stop: 01/28/24 07:59 Last Admin: 01/02/24 08:47 Dose: 3 mg Diclofenac Sodium (Diclofenac Sod 1% Gel 100 Gm Tube) 2 gm EXT QID GEORGE; Protocol Stop: 01/28/24 08:59 Last Admin: 01/02/24 08:49 Dose: 2 gm Diclofenac Sodium (Diclofenac Sod 1% Gel 100 Gm Tube) 4 gm EXT QID GEORGE; Protocol Stop: 01/28/24 08:59 Last Admin: 01/02/24 08:49 Dose: 4 gm Divalproex Sodium (Divalproex Delay Release 250 Mg Tabec) 250 mg PO BIDM GEORGE Stop: 01/28/24 07:59 Last Admin: 01/02/24 08:48 Dose: 250 mg Haloperidol Lactate (Haloperidol Lactate 5 Mg/Ml 1 Ml Vial) 1 mg IM Q4H PRN PRN Reason: Agitation Stop: 01/28/24 00:07 Last Admin: 01/01/24 02:18 Dose: 1 mg Lamotrigine (Lamotrigine 100 Mg Tab) 150 mg PO [facility]IDM [facility] Stop: 01/28/24 07:59 Last Admin: 01/02/24 08:48 Dose: 150 mg [place] Carbonate ([place] Carbonate Slow Rel 300 Mg Tab) 300 mg PO DAILY [facility] Stop: 01/31/24 09:29 Last Admin: 01/02/24 09:40 Dose: 300 mg Lorazepam (Lorazepam 2 Mg/1 Ml Vial) 1 mg IV Q6H GEORGE Stop: 01/28/24 01:14 Last Admin: 01/02/24 08:47 Dose: 1 mg Magnesium Hydroxide (Magnesium Hydroxide Susp 30 Ml Udc) 30 ml PO DAILY [facility] Stop: 01/28/24 08:59 Last Admin: 01/02/24 08:51 Dose: Not Given Olanzapine (Olanzapine 5 Mg Tablet) 5 mg PO QAM [facility] Stop: 01/28/24 08:59 Last Admin: 01/02/24 08:51 Dose: 5 mg Olanzapine (Olanzapine 20 Mg Tablet) 20 mg PO QDD [facility] Stop: 01/28/24 16:29 Last Admin: 01/01/24 16:27 Dose: 20 mg
[2024-01-02] MEDS: amLODIPine BESYLATE 5 MG TAB PO ONE (18:44)
--- NOTE | 2024-01-03 06:59 | Hospitalist Progress Note ---
Date of Service January 03, 2024 Assessment & Plan (1) Schizoaffective disorder, bipolar type: Plan: Ashley level as of Tuesday01/01/24: awaiting result Following recommendations per psychiatry consultation: Plan - psychiatry working on 303 paperwork, hearing is tomorrow 01/04/24, after which geriatric psych facility will be more willing to accept pt - until tomorrow's 303 hearing, pt to remain on 302 commitment, cannot leave AMA; geriatric psychiatry bed search once medically stable -Continue 1-on-1 observation -Continue Ashley to 300mg daily -Repeat Ashley level in 2-3 days -Continue Carpiprazine 3mg BID -Continue Olanzapine 5mg QAM, 20mg QDD -Continue Lamotrigine 150mg BIDPM -Hold Depakote PRNs: - Haldol 1mg IV q 4 hours as needed for agitation; 2 doses last night for acute agitation - Ativan IV changed to PO Ativan prn, scheduled Ativan PO QHS for sleep Geriatric psychiatric facility placement pending medical stabilization and therapeutic lithium blood level. Present on Admission?: Yes (2) Hypernatremia: Plan: - had mild hypernatremia, secondary to dehydration vs nephrogenic diabetes insipidus - Improving - Na: 151->148 -> 145 yesterday and today - Symptoms assessment is challenging in her current status. - was on half NSS 1L @ 80ml/hr to correct hypernatremia - continue BMP QAM - consider desmopressin due to high serum osmolality and low urine osmolality, if no resolution then patient may have lithium-induced CASHIER CHECKER resistance -> then consider low-solute diet and possible thiazide or potassium-sparing diuretic like amiloride Present on Admission?: Yes (3) Hypertension: Plan: BP 149/92 this morning, has been mainly systolic 140s-160s and diastolic 60s-90s over past 2 days - started on amlodipine 5mg qAM (4) CKD (chronic kidney disease): Plan: per history, stage IV CKD Creatitine: 2.47 (normal range 0.6-1.2) BUN/Cr ratio: 7.3 (low) - continue PO hydration, IV fluids if unable to take PO - consider desmopressin for high serum osmolality and low urine osmolality, if no resolution then patient may have lithium-induced CASHIER CHECKER resistance -> then consider low-solute diet and possible thiazide or potassium-sparing diuretic like amiloride (5) Hyperchloremia: Plan: elevated chloride: currently 116 (normal range 98-107) - continue IV hydration - consider desmopressin due to high serum osmolality and low urine osmolality, if no resolution then patient may have lithium-induced CASHIER CHECKER resistance -> then consider low-solute diet and possible thiazide or potassium-sparing diuretic like amiloride (6) Right hand fracture: Plan: - Patient with proximal second metacarpal fracture noted of the right hand. Splint was placed in ER - Per ortho surgery not recommended, but Cock-up splint or no splint recommended prior to transition to Geriatric psychiatric unit - Pain control with Tylenol PRN (7) Elevated troponin: Plan: - likely in the setting of demand ischemia due to volume-contracted state - No ischemic changes present on EKG - was 28.5 on 12/27 -> 28.1 on 12/28 (8) Rhabdomyolysis: Plan: - Patient with elevation of QX=704 reduced to 495 12/28. UA with presence of blood without RBC. Renal function is overall near baseline. - IVF with Plasmalyte started yesterday; patient very uncooperative for IVF - Will continue to monitor status Admission and Anticipated Discharge Date Admission Date: December 28, 2023 Supervising Physician Co-Signing Physician Notes ATTESTATION I also saw the patient and confirmed mann portions of the history and exam. I agree with the impression and plan in the resident documentation, and as summarized below. Sleeping but awakens to voice. No distress appreciated. Nurse on the patient one-to-one notes pretty aggressive intake of water and rather dilute urine; she has been incontinent a couple times as well. EXAM 121/72, 82, 18, 36.8, 95% on room air Minimally interactive this morning; She is awake, will respond by nodding her head though not talkative otherwise Heart regular rate slightly tachycardic Respirations unlabored DATA Labs Sodium 145,, BUN 30, creatinine 2.48 IMPRESSION & PLAN Schizoaffective disorder, bipolar type Suspect lithium induced water diuresis/DI CKD stage IV Discussed with psychiatry; lithium seems to be the only psychotropic medication providing some benefit as she is already on two antipsychotics and past trials of other mood stabilizers, including Depakote, but not prove efficacious. Unfortunately, with increasing lithium dose, patient has developed polydipsia and a dilute urine suggestive of water diuresis/DI. Discussed adding amiloride, but uncertain with the patient's baseline CKD and high normal potassium. She does follow with nephrology as an outpatient so we will have them see her for recommendations given the benefit/need for lithium therapy. Additional per resident documentation Subjective This morning, patient was seen at bedside, 1:1 present. Had one instance of urinary incontinence in her bed overnight, otherwise no acute events. Patient lying down diagonally to her left, to the left of pillow, appearing sedated with eyes half open but opens eyes wider when addressing her. Pt attempts to communicate verbally when addressed, but unable to understand as her tongue interferes with speech. Was able to understand pt say "I want to see my " and nursing confirms he will be visiting tomorrow. Patient has also expressed wanting her glasses, which we are trying to have brought here from her facility so she can see and try communicating with us by writing on paper. Patient received first dose of Ashley 300mg yesterday, still awaiting lithium level drawn on Tuesday01/01/24 (level from 12/28 was 0.4, subtherapeutic). HPI/ROS: unable to assess but does not appear to be in acute distress. Per nursing, she has been drinking a lot of water, urinating large volume of dilute urine every few hours. Otherwise eating well. Review of Systems Review of Systems: All systems reviewed & are unremarkable except as noted in HPI & below Physical Exam Constitutional: WD/WN, vitals as above well developed Eyes: PERRL, conjunctivae normal, anicteric sclerae ENMT: Mouth: + tongue abnormality protruding tongue which interferes with speaking Neck: trachea midline, no thyromegaly Respiratory: normal respiratory effort, lungs clear to auscultation Cardiovascular: RRR, no murmur, no edema Gastrointestinal (Abdomen): Inspection/Auscultation: abdomen normal to inspection and normal bowel sounds Musculoskeletal: able to move all extremities spontaneously and against gravity but unable to assess strength against resistance - has brace on her R hand/wrist up to mi d forearm Skin: no rashes, warm and dry R hand: on dorsal aspect of R 3rd proximal phalanx (see image in provider notes from between 12-1pm today) Neurologic: + confused Speech / Cognition: + abno rmal speech and + abnormal cognition Psychiatric: Orientation: alert Eye Contact: + fair eye contact Affect: + labile affect intermittent intelligible speech, mostly difficult to understand due to tongue protruding Results & Data Results & Data Vital Signs (Past 12 Hours) Vital Signs Temp Pulse Resp BP Pulse Ox O2 Del Method 01/02/24 19:44 36.9 C 82 16 152/85 H 95 Room Air 01/02/24 19:25 Room Air Laboratory Results Abnormal lab results 01/03/24 01/03/24 01/03/24 Range/Units 07:53 07:53 07:53 RBC 3.81 L (4.20-5.40) M/uL Hgb 11.2 L (12.0-16.0) g/dl Hct 34.4 L (37.0-47.0) % RDW Std Deviation 48.7 H (36.4-46.3) fL RDW Coeff of Rachel 14.6 H (11.5-14.5) % [place] # (Auto) 0.73 H (0.11-0.59) K/uL Chloride 114 H 115 H (98-107) mmol/L BUN 31 H 30 H (6-23) mg/dl Creatinine 2.48 H (0.6-1.2) mg/dl Glucose (70-99(Fasting)) mg/dl 01/03/24 01/03/24 Range/Units 07:53 07:53 RBC (4.20-5.40) M/uL Hgb (12.0-16.0) g/dl Hct (37.0-47.0) % RDW Std Deviation (36.4-46.3) fL RDW Coeff of Rachel (11.5-14.5) % [place] # (Auto) (0.11-0.59) K/uL Chloride (98-107) mmol/L BUN (6-23) mg/dl Creatinine 2.48 H (0.6-1.2) mg/dl Glucose 116 H 117 H (70-99(Fasting)) mg/dl Resident Activity Tracking Resident Involvement: Resident Care Provided Care Provided: Adult Hospital Medicine (4) CKD (chronic kidney disease) Chronic kidney disease stage: stage 4 (severe) Qualified Code(s): N18.4 - Chronic kidney disease, stage 4 (severe) (6) Right hand fracture Encounter type: initial encounter Fracture type: closed Qualified Code(s): S62.91XA - Unspecified fracture of right wrist and hand, initial encounter for closed fracture (8) Rhabdomyolysis Encounter type: initial encounter Rhabdomyolysis type: traumatic Qualified Code(s): T79.6XXA - Traumatic ischemia of muscle, initial encounter
[2024-01-03 08:20] LABS: Hematocrit (blood only) 34.4 % (37.0-47.0); Hemoglobin 11.2 g/dl (12.0-16.0); Immature Granulocytes # (auto) 0.09 K/uL (0.01-0.20); Immature Granulocytes % (auto) 1.3 %; Lymphocytes # (auto) 1.37 K/uL (1.20-3.40); Lymphocytes % (auto) 19.6 %; Mean Corpuscular Hemoglobin 29.4 pg (25.0-34.0); Mean Corpuscular Hgb Conc 32.6 g/dL (32.0-36.0); Mean Corpuscular Volume 90.3 fL (80.0-100.0); Mean Platelet Volume 9.8 fL (9.4-12.4); Monocytes # (auto) 0.73 K/uL (0.11-0.59); Monocytes % (auto) 10.5 %; Neutrophils # (auto) 4.79 K/uL (1.40-6.50); Neutrophils % (auto) 68.6 %; Platelet Count 361 K/uL (130-400); RDW Coefficient of Variation 14.6 % (11.5-14.5); RDW Standard Deviation 48.7 fL (36.4-46.3); Red Blood Count 3.81 M/uL (4.20-5.40); White Blood Count 6.98 K/ul (4.8-10.8)
[2024-01-03] MEDS: amLODIPine BESYLATE 5 MG TAB PO SCH (08:39)
[2024-01-03 08:50] LABS: BUN Creatinine Ratio 12.5 (10-20); Calcium 9.2 mg/dl (8.6-10.3); Creatinine Clr Calc Pharmacy 17.1 ml/min; Est GFR (African American) 21.9 ml/min; Est GFR (Non-African American) 18.9 ml/min; Potassium 4.5 mmol/L (3.5-5.1)
[2024-01-03 08:51] LABS: BUN Creatinine Ratio 12.1 (10-20); Calcium 9.2 mg/dl (8.6-10.3); Creatinine Clr Calc Pharmacy 17.1 ml/min; Est GFR (African American) 21.9 ml/min; Est GFR (Non-African American) 18.9 ml/min; Potassium 4.5 mmol/L (3.5-5.1)
--- NOTE | 2024-01-03 09:45 | Psychiatric Progress Note ---
Date of Service January 03, 2024 Impression / Recommendations Impression 73-year-old woman with history of schizoaffective disorder, bipolar type who presents with recent agitation and aggressive behavior in her retirement ([facility]). She has been restless and presented self-harm behaviors including banging head and limbs against wall. She has elevated creatinine with progressive renal dysfunction due to long-term lithium use. Psychiatry consulted for evaluation and management. Diagnostically consistent with schizoaffective disorder current episode of acute stefan. Most recent [place] level is 0.4 and subtherapeutic. Given ongoing symptoms of stefan and poor efficacy of prior and recent alternative mood stabilizers and already on two antipsychotic medications it is felt that risk of further renal impairment is outweighed by benefit of lithium titration for mood stabilization given significant negative impacts from current manic episode including self-harming and disorganized behaviors to the point of sustaining a metacarpal fracture. A: Ongoing improvement in behavioral control and better able to participate in discussions with care providers. Less psychomotor agitation. Given stefan seems to be lessening a bit with increased dose of [place] and concern for excessive sedation will discontinue IV ativan and switch to prn po option with scheduled po at HS to continue to help with promotion of sleep. No signs of [place] toxicity with increased dose, sodium remains normal with improved po intake. Tolerating hand brace and no evidence for pain. Completed 303 commitment paperwork given need for inpatient geriatric psychiatric hospitalization to continue to monitor [place] titration and ensure resolution of episode of stefan. The patient remains hospitalized on a completed 302 involuntary commitment, which if not extended, will on 01/04/2024 @ 1525. This patient must remain on safety precautions with a 1-on-1 and is unable to leave the hospital AMA. Overall, I spent a total of 40 minutes with this case including review of chart records, nursing report, review of lab work, direct evaluation of the patient at bedside, discussion with the psychiatric liaison during clinical rounds, discussion with RN and hospitalist provider, completion of 303 paperwork and documentation in the electronic health record. (1) Schizoaffective disorder, bipolar type: Plan -Remains on 302 commitment, cannot leave AMA; geriatric psychiatry bed search once medically stable -Continue 1-on-1 -303 hearing scheduled for tomorrow morning -Continue with increased [place] 300mg daily -Repeat [place] level later this week -Continue Carpiprazine 3mg BID -Continue Olanzapine 5mg QAM, 20mg QDD -Continue Lamotrigine 150mg BIDPM -Hold Depakote -Discontinue ativan IV. Start ativan 1mg HS and ativan 1mg TID po prn for agitation. -Psych liason to discuss with her nursing retirement options for trying to get her glasses brought in to the hospital Interval History Identifying Information 73-year-old female history of schizoaffective disorder, bipolar type who p resents with recent agitation and aggressive behavior in her retirement ([facility]). Patient has been restless and presented self-harm behaviors including banging head and limbs against wall. Patient has elevated creatinine with progressive renal dysfunction due to long-term lithium use. Psychiatry consulted for evaluation and management. Chief Complaint "I need my glasses". Subjective Subjective Patient was seen & assessed and interval progress reviewed. Improved behavioral control, communicating more easily, still struggles at times to hear questions due to hearing loss but will read what is written. Has to hold information close to her face as she doesn't have her glasses. She endorses headache this morning. No evidence of tremor. No recent loose stools or any other signs of lithium toxicity with dose increase. [place] tired, discussed with RN and likely in part due to ativan IV she has been getting. Ate some banana this morning. Physical Exam Psychiatric Orientation: alert, oriented to person and oriented to place Apperance: appropriately dressed Eye Contact: good eye contact Motor Behavior: no abnormal motor movements; n tremor Speech: + abnormal rate/rhythm/volume of speech (difficult to understand at times due mumbled speech) Affect: euthymic affect Mood: no depressed mood and no anxious mood Thought Process: + concrete thought process Insight: + limited insight Judgment: + fair judgement Vital Signs (Past 24 Hours) Last Vital Signs Temp 37.1 C 01/03/24 07:37 Pulse 82 01/03/24 09:39 Resp 18 01/03/24 07:37 BP 149/92 H 01/03/24 09:39 Pulse Ox 97 01/03/24 07:37 O2 Del Method Room Air 01/03/24 07:37 Results & Data ([facility]) Laboratory Results Laboratory Results - last 24 hr 01/03/24 01/03/24 01/03/24 07:53 07:53 07:53 WBC 6.98 RBC 3.81 L Hgb 11.2 L Hct 34.4 L MCV 90.3 MCH 29.4 MCHC 32.6 RDW Std Deviation 48.7 H RDW Coeff of Rachel 14.6 H Plt Count 361 MPV 9.8 Immature Gran % (Auto) 1.3 Neut % (Auto) 68.6 Lymph % (Auto) 19.6 [place] % (Auto) 10.5 Eos % (Auto) 0.0 Baso % (Auto) 0.0 Neut # (Auto) 4.79 Lymph # (Auto) 1.37 [place] # (Auto) 0.73 H Eos # (Auto) 0.00 Baso # (Auto) 0.00 Immature Gran # (Auto) 0.09 Sodium 144 145 Potassium 4.5 4.5 Chloride 114 H Carbon Dioxide Anion Gap BUN Creatinine Est Cr Clr Drug Dosing Est GFR ( Amer) Est GFR (Non-Af Amer) BUN/Creatinine Ratio Glucose Calcium 01/03/24 01/03/24 01/03/24 07:53 07:53 07:53 WBC RBC Hgb Hct MCV MCH MCHC RDW Std Deviation RDW Coeff of Rachel Plt Count MPV Immature Gran % (Auto) Neut % (Auto) Lymph % (Auto) [place] % (Auto) Eos % (Auto) Baso % (Auto) Neut # (Auto) Lymph # (Auto) [place] # (Auto) Eos # (Auto) Baso # (Auto) Immature Gran # (Auto) Sodium Potassium Chloride 115 H Carbon Dioxide 23 23 Anion Gap 7 7 BUN 31 H Creatinine Est Cr Clr Drug Dosing Est GFR ( Amer) Est GFR (Non-Af Amer) BUN/Creatinine Ratio Glucose Calcium 01/03/24 01/03/24 01/03/24 07:53 07:53 07:53 WBC RBC Hgb Hct MCV MCH MCHC RDW Std Deviation RDW Coeff of Rachel Plt Count MPV Immature Gran % (Auto) Neut % (Auto) Lymph % (Auto) [place] % (Auto) Eos % (Auto) Baso % (Auto) Neut # (Auto) Lymph # (Auto) [place] # (Auto) Eos # (Auto) Baso # (Auto) Immature Gran # (Auto) Sodium Potassium Chloride Carbon Dioxide Anion Gap BUN 30 H Creatinine 2.48 H 2.48 H Est Cr Clr Drug Dosing 17.1 17.1 Est GFR ( Amer) 21.9 Est GFR (Non-Af Amer) BUN/Creatinine Ratio Glucose Calcium 01/03/24 01/03/24 01/03/24 07:53 07:53 07:53 WBC RBC Hgb Hct MCV MCH MCHC RDW Std Deviation RDW Coeff of Rachel Plt Count MPV Immature Gran % (Auto) Neut % (Auto) Lymph % (Auto) [place] % (Auto) Eos % (Auto) Baso % (Auto) Neut # (Auto) Lymph # (Auto) [place] # (Auto) Eos # (Auto) Baso # (Auto) Immature Gran # (Auto) Sodium Potassium Chloride Carbon Dioxide Anion Gap BUN Creatinine Est Cr Clr Drug Dosing Est GFR ( Amer) 21.9 Est GFR (Non-Af Amer) 18.9 18.9 BUN/Creatinine Ratio 12.5 12.1 Glucose 116 H Calcium 01/03/24 01/03/24 07:53 07:53 WBC RBC Hgb Hct MCV MCH MCHC RDW Std Deviation RDW Coeff of Rachel Plt Count MPV Immature Gran % (Auto) Neut % (Auto) Lymph % (Auto) [place] % (Auto) Eos % (Auto) Baso % (Auto) Neut # (Auto) Lymph # (Auto) [place] # (Auto) Eos # (Auto) Baso # (Auto) Immature Gran # (Auto) Sodium Potassium Chloride Carbon Dioxide Anion Gap BUN Creatinine Est Cr Clr Drug Dosing Est GFR ( Amer) Est GFR (Non-Af Amer) BUN/Creatinine Ratio Glucose 117 H Calcium 9.2 9.2 Current Inpatient Medications Current Inpatient Medications: Current Inpatient Medications Acetaminophen (Acetaminophen 325 Mg Tab) 650 mg PO QID PRN PRN Reason: Fever Or Pain Stop: 01/28/24 00:40 Last Admin: 01/03/24 09:32 Dose: 650 mg Amlodipine Besylate (Amlodipine Besylate 5 Mg Tab) 5 mg PO QAM [facility] Stop: 02/02/24 08:59 Last Admin: 01/03/24 08:39 Dose: 5 mg Bisacodyl (Bisacodyl 10 Mg Supp) 10 mg MI DAILY PRN PRN Reason: Constipation Stop: 01/28/24 00:40 Cariprazine (Cariprazine Hcl 3 Mg Cap) 3 mg PO BIDM [facility] Stop: 01/28/24 07:59 Last Admin: 01/03/24 08:05 Dose: 3 mg Diclofenac Sodium (Diclofenac Sod 1% Gel 100 Gm Tube) 2 gm EXT QID [facility]; Protocol Stop: 01/28/24 08:59 Last Admin: 01/03/24 08:07 Dose: 2 gm Diclofenac Sodium (Diclofenac Sod 1% Gel 100 Gm Tube) 4 gm EXT QID [facility]; Protocol Stop: 01/28/24 08:59 Last Admin: 01/03/24 08:08 Dose: 4 gm Divalproex Sodium (Divalproex Delay Release 250 Mg Tabec) 250 mg PO BIDM [facility] Stop: 01/28/24 07:59 Last Admin: 01/03/24 08:05 Dose: 250 mg Haloperidol Lactate (Haloperidol Lactate 5 Mg/Ml 1 Ml Vial) 1 mg IM Q4H PRN PRN Reason: Agitation Stop: 01/28/24 00:07 Last Admin: 01/01/24 02:18 Dose: 1 mg Lamotrigine (Lamotrigine 100 Mg Tab) 150 mg PO BIDM [facility] Stop: 01/28/24 07:59 Last Admin: 01/03/24 08:05 Dose: 150 mg [place] Carbonate ([place] Carbonate Slow Rel 300 Mg Tab) 300 mg PO DAILY [facility] Stop: 01/31/24 09:29 Last Admin: 01/03/24 09:32 Dose: 300 mg Lorazepam (Lorazepam 2 Mg/1 Ml Vial) 1 mg IV Q6H [facility] Stop: 01/28/24 01:14 Last Admin: 01/03/24 08:09 Dose: 1 mg Magnesium Hydroxide (Magnesium Hydroxide Susp 30 Ml Udc) 30 ml PO DAILY [facility] Stop: 01/28/24 08:59 Last Admin: 01/03/24 08:06 Dose: Not Given Olanzapine (Olanzapine 5 Mg Tablet) 5 mg PO QAM [facility] Stop: 01/28/24 08:59 Last Admin: 01/03/24 08:06 Dose: 5 mg Olanzapine (Olanzapine 20 Mg Tablet) 20 mg PO QDD [facility] Stop: 01/28/24 16:29 Last Admin: 01/02/24 16:22 Dose: 20 mg
--- NOTE | 2024-01-03 17:39 | Nephrology Consultation ---
Date of Consultation January 03, 2024 Assessment & Plan (1) Hypernatremia: (2) Chronic kidney disease, stage 4 (severe): (3) UTI (urinary tract infection): (4) Hypertension: (5) Anemia: (6) Schizoaffective disorder, bipolar type: Plan 73 year-old female with history of stage IV CKD, Hypernatremia, admitted with acute stefan and schizoaffective disorder. Baseline creatinine has been around 2.5 mg/dl, kidney function has been stable since admission. On admission sodium was normal but rapidly increased to 151 most likely with decreased p.o. intake with responsiveness with haloperidol and higher dose of lithium to control agitation. 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 Sodium already started to improve and down to 145 as she has been drinking quite a lot. -- Encouraged her to continue to drink enough liquids as she feels thirsty. Consider D5W to help with improving sodium to normal range as she most likely continues to have some free water deficit. -- If sodium remains elevated, amiloride can be considered however with her advanced CKD and significantly high urine output, she does have some risk for further volume depletion and hyperkalemia. -- Ideally she should be off of lithium considering advanced CKD and repeated hyponatremia however since she has been symptomatic despite being on multiple mood stabilizer and lithium seem to work better, okay to continue on a while continuing to make sure she has access to free water. Thank you for allowing me to participate in your patient's care. It was a pleasure to see Brenda. History of Present Illness Reason for Consultation: Hypernatremia, stage 4 CKD Attending Physician: Duane Mir DO History of Present Illness Ms. Brenda Medley is a 73-year-old female with stage IV CKD, history of repeated episodes of hypernatremia, schizoaffective disorder, admitted to the hospital with acute manic episode. Nephrology consult requested for management of advanced CKD and hyponatremia. EMR records were reviewed in detail during patient's visit. History was mainly from record review and discussion with the primary team. Brenda was brought to ER on 12/28/2023 with increasing agitation, self hurting behavior with history of schizoaffective disorder. She has been on lithium but level was subtherapeutic and considering she has been on multiple other mood stabilizer and has been having ongoing symptoms she was continued on lithium and dose was increased. Sodium was 136 on admission which progressively increased to 151 over last few days and then started to improve, down to 145 over last 2 days. Potassium has been normal. Prior record review showed serum sodium has been quite variable, occasionally elevated to 149 but she also had hyponatremia in July 2023. Blood pressure has been well-controlled. Kidney function has been relatively stable since admission, cr has been around 2.4-2.5 mg/dl. She was awake and alert and conversant. Nursing staff report that she has been drinking a lot of liquids. Has been having significant urine output and according to the nursing report her urine has been clear. Urine osmolality 169 and specific gravity 1.006. Has history of stage III stage IV CKD, baseline creatinine has been 2.3-2.5 mg/dl, has been following with Dr. Rich as an outpatient. 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 Prior urinalysis with low- grade proteinuria with history of diabetes. Renal imaging was otherwise unremarkable. Past medical history also significant for type 2 diabetes, hypertension, bipolar and schizoaffective disorder, has been in center care. She was awake, alert, comfortable except complaining of pain in her right wrist. Allergies Allergy/AdvReac Type Severity Reaction Status Date / Time clozapine Allergy Severe TOXIC Verified 12/28/23 22:25 REACTION lurasidone Allergy Severe TOXIC Verified 12/28/23 22:25 REACTION aspirin Allergy Unknown UNKNOWN Verified 12/28/23 22:25 REACTION ibuprofen Allergy Unknown UNKNOWN Verified 12/28/23 22:25 REACTION latex Allergy Unknown UNKNOWN Verified 12/28/23 22:25 Penicillins Allergy Unknown UNKNOWN Verified 12/28/23 22:25 REACTION Sulfa (Sulfonamide Allergy Unknown UNKNOWN Verified 12/28/23 22:25 Antibiotics) REACTION Home Medications Medication Instructions Recorded Confirmed Type multivitamin (Multiple Vitamins 1 tab PO QAM ##0 11/17/17 12/28/23 History tablet) blood sugar diagnostic (OneTouch #100 ea 08/25/20 08/29/23 Rx Ultra Blue Test Strip) blood-glucose meter (OneTouch #1 ea 08/25/20 08/29/23 Rx Ultra2 Meter) cholecalciferol (vitamin D3) 25 25 mcg PO QAM 08/26/20 12/28/23 History mcg (1,000 unit) tablet (Vitamin D3) atorvastatin 10 mg tablet 10 mg PO HS #90 tabs 03/09/21 12/28/23 Rx blood sugar diagnostic #400 ea 03/09/21 08/29/23 Rx blood-glucose meter (OneTouch #1 ea 03/09/21 08/29/23 Rx Ultra2 Meter) omeprazole 20 mg capsule,delayed 20 mg PO QAM #90 caps 03/09/21 12/28/23 Rx release lancets 30 gauge (OneTouch Delica #100 ea 03/18/21 08/29/23 Rx Plus Lancet) lithium carbonate 300 mg 300 mg PO 3XWK 08/02/21 12/28/23 History tablet,extended release diaper,brief,adult,disposable #120 ea 08/07/21 08/29/23 Rx (Select Briefs) sitagliptin phosphate 25 mg tablet 25 mg PO QAM 08/07/21 12/28/23 History (Januvia) diclofenac sodium 1 % topical gel 4 g EXT QID #100 grams 08/31/21 12/28/23 Rx (Voltaren Arthritis Pain) ondansetron 4 mg disintegrating 4 mg PO Q6 PRN Nausea And Vomiting 08/06/22 12/28/23 History tablet tramadol 50 mg tablet 100 mg PO TIDM 08/06/22 12/28/23 History acetaminophen 325 mg tablet 650 mg PO QID PRN Fever Or Pain 07/14/23 12/28/23 History (Tylenol) benzocaine 20 % mucosal gel 1 applic mucous membrane Q6H PRN 07/14/23 12/28/23 History (Anbesol (benzocaine) Maximum Mouth Pain Strength) cariprazine 3 mg capsule (Vraylar) 3 mg PO BIDM 07/14/23 12/28/23 History cyanocobalamin (vitamin B-12) 1,000 mcg PO QAM 07/14/23 12/28/23 History 1,000 mcg tablet diclofenac sodium 1 % topical gel 1 ea topical QID 07/14/23 12/28/23 History lamotrigine 150 mg tablet 150 mg PO BIDM 07/14/23 12/28/23 History lorazepam 1 mg tablet 1 mg PO Q6H 07/14/23 12/28/23 History montelukast 10 mg tablet 10 mg PO HS 07/14/23 12/28/23 History olanzapine 20 mg tablet 20 mg PO QDD 07/14/23 12/28/23 History olanzapine 5 mg tablet (Zyprexa) 5 mg PO QAM 07/14/23 12/28/23 History bisacodyl 10 mg rectal suppository 10 mg ND DAILY PRN Constipation 08/23/23 12/28/23 History (Dulcolax (bisacodyl)) lorazepam 1 mg tablet 1 mg PO DIRECTED PRN 08/23/23 12/28/23 History STEFAN/AGITATION magnesium hydroxide 400 mg/5 mL 30 ml PO DAILY 08/23/23 12/28/23 History oral suspension (Milk of Magnesia) sodium phosphates 19 gram-7 118 ml ND DAILY PRN Constipation 08/23/23 12/28/23 History gram/118 mL enema (Fleet Enema) divalproex 250 mg tablet,delayed 250 mg PO BIDM 12/28/23 12/28/23 History release (Depakote) mineral oil-isopropyl myristat 1 applic topical BID 12/28/23 12/28/23 History lotion Patient History Medical History History of COVID-19 unsure when, per [facility] record EKG abnormalities Spondylolisthesis CKD (chronic kidney disease) stage 4 Anxiety GERD (gastroesophageal reflux disease) Osteoporosis Osteoarthritis Asthma no inh Bipolar disorder Hyperparathyroidism Type II diabetes mellitus NIDDM Hyperlipemia Surgical History History of colonoscopy History of tooth extraction History of cataract surgery Status post breast lumpectomy History of tubal ligation Family History Father Myocardial infarction Brother Rheumatoid arthritis Other Cancer Diabetes Heart disease Hypertension Lung disease Denies family history of Colon cancer Ovarian cancer Prostate cancer Breast cancer Social History Smoking Status: Never smoker Tobacco Type: Cigarettes Second Hand Exposure: No; Do You Dip or Chew Tobacco: No; Hx Alcohol Use: No Hx Substance Use: No Preferred Language: Luxembourgish Communication Ability: Impaired Communication Ability Comment: per facility pt unable to sign consents, will need POA to sign Visual Impairment: Partially Limited Hearing Ability: Rails Developer Required: No Beliefs That Will Affect Care: None marital status: Single Current Living Situation: Intermediate Current Living Situation Comment: [facility] current occupational status: disabled Feels Safe at Home: Yes Childhood Exposure to Second-Hand Smoke: No Diet: regular Dental Care, Regularly: No Physical Activity Frequency: 5-6 Times per Week Seatbelt Use: always Sunscreen Use: No Assistive Devices: Wheelchair Review of Systems Review of Systems: Detailed review of system was limited because of her difficulty with hearing and speech. Physical Exam Constitutional: WD/WN, vitals as above no acute distress Eyes: + anicteric sclerae Neck: normal visual inspection Respiratory: no respiratory distress Auscultation: lungs clear to auscultation bilaterally Gastrointestinal (Abdomen): Inspection/Auscultation: abdomen normal to inspection Musculoskeletal: Rt UE band Neurologic: no focal motor deficits Psychiatric: Orientation: alert and cooperative Results & Data Vital Signs (Past 12 Hours) Vital Signs Temp Pulse Resp BP Pulse Ox O2 Del Method 01/03/24 14:09 36.8 C 82 18 121/72 95 Room Air 01/03/24 09:39 82 149/92 H 01/03/24 07:37 37.1 C 103 H 18 177/91 H 97 Room Air PG Care Time/CCT Total # of Minutes Spent Total Time Spent with Patient: Total time spent is greater than 50% in coordination of care (as documented) at patient's floor/unit and/or counseling patient: Coding Level of Care Code 27173 INT INP/OBS CARE 3/75MIN Diagnoses Hypernatremia E87.0 Chronic kidney disease, stage 4 (severe) N18.4 Urinary tract infection with hematuria, site unspecified N39.0; R31.9 Urinary tract infection type: site unspecified Hematuria presence: with hematuria Hypertension I10 Anemia D64.9 Schizoaffective disorder, bipolar type F25.0 (3) UTI (urinary tract infection) Urinary tract infection type: site unspecified Hematuria presence: with hematuria Qualified Code(s): N39.0 - Urinary tract infection, site not specified; R31.9 - Hematuria, unspecified
[2024-01-03] MEDS: DEXTROSE 5% 1,000 ML IV SCH (18:17)
[2024-01-03] MEDS ORDERED: CLOTRIMAZOLE 1% CR 15 GM TUBE EXT PRN (19:40)
[2024-01-03] MEDS: LORazepam 1 MG TAB PO SCH (19:46)
[2024-01-04 10:14] LABS: BUN Creatinine Ratio 12.6 (10-20); Calcium 8.9 mg/dl (8.6-10.3); Est GFR (African American) 24.9 ml/min; Est GFR (Non-African American) 21.5 ml/min; Potassium 4.5 mmol/L (3.5-5.1)
--- NOTE | 2024-01-04 10:53 | Nephrology Progress Note ---
Date of Service January 04, 2024 Assessment & Plan (1) Hypernatremia: (2) Chronic kidney disease, stage 4 (severe): (3) UTI (urinary tract infection): (4) Hypertension: (5) Anemia: (6) Schizoaffective disorder, bipolar type: Plan 73 year-old female with history of stage IV CKD, Hypernatremia, admitted with acute stefan and schizoaffective disorder. Baseline creatinine has been around 2.5 mg/dl, kidney function has been stable since admission. On admission sodium was normal but rapidly increased to 151 most likely with decreased p.o. intake with responsiveness with haloperidol and higher dose of lithium to control agitation. 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 Sodium down to 136 as she has been drinking quite a lot. -- Encouraged her to continue to drink enough liquids as she feels thirsty. Would discontinue D5W. -- If sodium again increase significantly, will consider Amiloride while in patient so that we can monitor potassium. Admission and Anticipated Discharge Date Admission Date: December 28, 2023 Zoie Gutierrez was seen and evaluated this morning. She has been overall doing well, comfortable, has been drinking lots of free water in addition to D5W. Sodium improved to 136, kidney function stable. Review of Systems Review of Systems: Detailed review of system was limited because of her difficulty with hearing and speech. Physical Exam Constitutional: WD/WN, vitals as above no acute distress Eyes: + anicteric sclerae Neck: normal visual inspection Respiratory: no respiratory distress Auscultation: lungs clear to auscultation bilaterally Neurologic: no focal motor deficits Psychiatric: Orientation: alert and cooperative Results & Data Vital Signs (Past 12 Hours) Vital Signs Temp Pulse Resp BP Pulse Ox O2 Del Method 01/04/24 09:16 36.5 C 79 18 152/90 H 96 Room Air PG Care Time/CCT Total # of Minutes Spent Total Time Spent with Patient: Total time spent is greater than 50% in coordination of care (as documented) at patient's floor/unit and/or counseling patient: Coding Level of Care Code 93880 SUB INP/OBS CARE 2/35MIN Diagnoses Hypernatremia E87.0 Chronic kidney disease, stage 4 (severe) N18.4 Urinary tract infection with hematuria, site unspecified N39.0; R31.9 Hematuria presence: with hematuria Urinary tract infection type: site unspecified Hypertension I10 Anemia D64.9 Schizoaffective disorder, bipolar type F25.0 (3) UTI (urinary tract infection) Hematuria presence: with hematuria Urinary tract infection type: site unspecified Qualified Code(s): N39.0 - Urinary tract infection, site not specified; R31.9 - Hematuria, unspecified
--- NOTE | 2024-01-04 13:39 | Psychiatric Progress Note ---
Date of Service January 04, 2024 Impression / Recommendations Impression 73-year-old woman with history of schizoaffective disorder, bipolar type who presents with recent agitation and aggressive behavior in her alf ([facility]). She has been restless and presented self-harm behaviors including banging head and limbs against wall. She has elevated creatinine with progressive renal dysfunction due to long-term lithium use. Psychiatry consulted for evaluation and management. Now 303 commitment. Diagnostically consistent with schizoaffective disorder current episode of acute stefan. Most recent Omer level is 0.4 and subtherapeutic. Given ongoing symptoms of stefan and poor efficacy of prior and recent alternative mood stabilizers and already on two antipsychotic medications it is felt that risk of further renal impairment is outweighed by benefit of lithium titration for mood stabilization given significant negative impacts from current manic episode including self-harming and disorganized behaviors to the point of sustaining a metacarpal fracture. A: Episode of agitation overnight but overall showing some improvement and lessening of setfan with Omer titration. Participated in 303 hearing, 303 commitment granted. In effort to avoid use of three antipsychotic medications would encourage use of olanzapine IM for behavioral emergencies. The patient remains hospitalized on a completed 303 involuntary commitment. This patient must remain on safety precautions with a 1-on-1 and is unable to leave the hospital AMA. Overall, I spent a total of 60 minutes with this case including review of chart records, nursing report, review of lab work, direct evaluation of the patient at bedside, discussion with the psychiatric liaison during clinical rounds, discussion with RN and hospitalist provider, participation in the 303 hearing and documentation in the electronic health record. (1) Schizoaffective disorder, bipolar type: Plan -Now on a 303 commitment, cannot leave AMA; geriatric psychiatry bed search -Continue 1-on-1 -Continue with increased Omer 300mg daily -Repeat Omer level Tuesday morning (close to 24 hour trough since she takes Li in the AM) -Continue Carpiprazine 3mg BID -Continue Olanzapine 5mg QAM, 20mg QDD -Continue Lamotrigine 150mg BIDPM -Discontinued Depakote -Ativan 1mg HS and ativan 1mg TID po prn for agitation. -For behavioral emergency: olanzapine 2.5 mg IM x 1 (DO NOT exceed 10mg via IM sources per 24 hours, check EKG if IM dose required, NEVER co-administer with IM or IV benzodiazepines). Interval History Identifying Information 73-year-old female history of schizoaffective disorder, bipolar type who presents with recent agitation and aggressive behavior in her alf ([facility]). Patient has been restless and presented self-harm behaviors including banging head and limbs against wall. Patient has elevated creatinine with progressive renal dysfunction due to long-term lithium use. Psychiatry consulted for evaluation and management. Chief Complaint "Hello". Subjective Subjective Patient was seen & assessed and interval progress reviewed. Required IM haldol overnight due to agitation. Today much less sedated, awake, cooperative, friendly. Denies any issues. Oriented to [facility], city and year. Thought month was January. Happy to see psych liason as she recognized her from past hospitalizations. Physical Exam Psychiatric Orientation: alert, oriented to person, oriented to place, oriented to time and cooperative Apperance: appropriately dressed Eye Contact: good eye contact Motor Behavior: no abnormal motor movements; n tremor Speech: + abnormal rate/rhythm/volume of speech (difficult to understand at times due mumbled speech) Affect: euthymic affect Mood: no depressed mood and no anxious mood Thought Process: + concrete thought process Insight: + limited insight Judgment: + limited judgement Vital Signs (Past 24 Hours) Last Vital Signs Temp 36.5 C 01/04/24 09:16 Pulse 79 01/04/24 09:16 Resp 18 01/04/24 09:16 BP 152/90 H 01/04/24 09:16 Pulse Ox 96 01/04/24 09:16 O2 Del Method Room Air 01/04/24 09:35 Results & Data ([facility]) Laboratory Results Laboratory Results - last 24 hr 01/04/24 09:38 Sodium 136 D Potassium 4.5 Chloride 106 Carbon Dioxide 22 Anion Gap 8 BUN 28 H Creatinine 2.23 H Est Cr Clr Drug Dosing 19.0 Est GFR ( Amer) 24.9 Est GFR (Non-Af Amer) 21.5 BUN/Creatinine Ratio 12.6 Glucose 151 H Calcium 8.9 Current Inpatient Medications Current Inpatient Medications: Current Inpatient Medications Acetaminophen (Acetaminophen 325 Mg Tab) 650 mg PO QID PRN PRN Reason: Fever Or Pain Stop: 01/28/24 00:40 Last Admin: 01/04/24 12:55 Dose: 650 mg Amlodipine Besylate (Amlodipine Besylate 5 Mg Tab) 5 mg PO QAM [facility] Stop: 02/02/24 08:59 Last Admin: 01/04/24 09:20 Dose: 5 mg Bisacodyl (Bisacodyl 10 Mg Supp) 10 mg IA DAILY PRN PRN Reason: Constipation Stop: 01/28/24 00:40 Cariprazine (Cariprazine Hcl 3 Mg Cap) 3 mg PO BIDM [facility] Stop: 01/28/24 07:59 Last Admin: 01/04/24 09:20 Dose: 3 mg Clotrimazole (Clotrimazole 1% Cr 15 Gm Tube) 1 appln EXT BID PRN PRN Reason: Rash Stop: 02/02/24 19:39 Diclofenac Sodium (Diclofenac Sod 1% Gel 100 Gm Tube) 2 gm EXT QID [facility]; Protocol Stop: 01/28/24 08:59 Last Admin: 01/04/24 12:51 Dose: 2 gm Diclofenac Sodium (Diclofenac Sod 1% Gel 100 Gm Tube) 4 gm EXT QID [facility]; Protocol Stop: 01/28/24 08:59 Last Admin: 01/04/24 12:51 Dose: 4 gm Haloperidol Lactate (Haloperidol Lactate 5 Mg/Ml 1 Ml Vial) 1 mg IM Q4H PRN PRN Reason: Agitation Stop: 01/28/24 00:07 Last Admin: 01/04/24 00:55 Dose: 1 mg Dextrose (D5w) 1,000 mls @ 100 mls/hr IV .Q10H [facility] Stop: 01/05/24 09:59 Last Admin: 01/04/24 12:57 Dose: 100 mls/hr Lamotrigine (Lamotrigine 100 Mg Tab) 150 mg PO BIDM [facility] Stop: 01/28/24 07:59 Last Admin: 01/04/24 09:20 Dose: 150 mg Omer Carbonate (Omer Carbonate Slow Rel 300 Mg Tab) 300 mg PO DAILY [facility] Stop: 01/31/24 09:29 Last Admin: 01/04/24 09:20 Dose: 300 mg Lorazepam (Lorazepam 1 Mg Tab) 1 mg PO TID PRN PRN Reason: Agitation Stop: 02/02/24 09:45 Lorazepam (Lorazepam 1 Mg Tab) 1 mg PO HS [facility] Stop: 02/02/24 20:59 Last Admin: 01/03/24 19:46 Dose: 1 mg Magnesium Hydroxide (Magnesium Hydroxide Susp 30 Ml Udc) 30 ml PO DAILY [facility] Stop: 01/28/24 08:59 Last Admin: 01/04/24 09:21 Dose: Not Given Olanzapine (Olanzapine 5 Mg Tablet) 5 mg PO QAM [facility] Stop: 01/28/24 08:59 Last Admin: 01/04/24 09:20 Dose: 5 mg Olanzapine (Olanzapine 20 Mg Tablet) 20 mg PO QDD [facility] Stop: 01/28/24 16:29 Last Admin: 01/03/24 16:35 Dose: 20 mg
--- NOTE | 2024-01-04 16:49 | Communication Note ---
Date of Service: January 04, 2024 ATTESTATION I also saw the patient and confirmed mann portions of the history and exam. I agree with the impression and plan in the resident documentation, and as summarized below. Today, her gaudencio is visiting. She is awake, alert, and talkative. Some of her speech is hard to understand; somewhat makes sense, some of it does not quite make sense (she thinks unrelated to somebody else that she knows). Her fianc thinks that she is back to her baseline in terms of speech and mentation. EXAM 138/72, 75, 18, 36.6, 96% on room air Awake, alert, and talkative. Heart regular rate and rhythm Respirations unlabored DATA Labs Hemoglobin 11.2, sodium 136, potassium 4.5, BUN 28, creatinine 2.23. IMPRESSION & PLAN Schizoaffective disorder, bipolar type Suspect lithium induced water diuresis/DI CKD stage IV She looks better today in terms of her interaction/level of alertness. No observed behavioral problems today. Appreciate nephrology consultation with regards to CKD and hyponatremia. Will discontinue IV fluids and encourage p.o. intake per nephrology BMP and a.m. Additional per resident documentation
--- NOTE | 2024-01-04 17:19 | Hospitalist Progress Note ---
Date of Service January 04, 2024 Assessment & Plan (1) Schizoaffective disorder, bipolar type: Plan: Cash level as of Tuesday01/01/24: awaiting result Following recommendations per psychiatry consultation: Plan - 303 hearing successful, patient given 20 more days of psychiatric hold - keep pt for medical stabilization and geriatric psych facility will be more willing to accept pt - cannot leave AMA; geriatric psychiatry bed search once medically stable -Continue 1-on-1 observation -Continue Cash to 300mg daily -Repeat Cash level in 1-2 days -Continue Carpiprazine 3mg BID -Continue Olanzapine 5mg QAM, 20mg QDD -Continue Lamotrigine 150mg BIDPM -Hold Depakote PRNs: - Haldol 1mg IV q 4 hours as needed for agitation; 2 doses last night for acute agitation - Ativan PO prn, scheduled Ativan PO QHS for sleep Geriatric psychiatric facility placement pending medical stabilization and therapeutic lithium blood level. (2) Hypernatremia: Plan: - had mild hypernatremia, secondary to dehydration vs nephrogenic diabetes insipidus - Improving - Na: 151->148 -> 145 yesterday and today 01/04/24 AM: resolved to 136 with overnight D5 infusion - IV fluids discontinued as of this afternoon - continue BMP qAM (3) Hypertension: Plan: BP 149/92 this morning, has been mainly systolic 140s-160s and diastolic 60s-90s over past 2 days - continue amlodipine 5mg qAM (4) CKD (chronic kidney disease): Plan: per history, stage IV CKD Creatitine: 2.47 (normal range 0.6-1.2) BUN/Cr ratio: 7.3 (low) - continue PO hydration, IV fluids discontinued this afternoon after hypernatremia resolution (5) Hyperchloremia: Plan: elevated chloride: was 116 (normal range 98-107) - continue IV hydration 01/04/24 AM: resolved to 106 with D5 infusion overnight, IV fluid discontinued this afternoon - BMP qAM (6) Right hand fracture: Plan: - Patient with proximal second metacarpal fracture noted of the right hand. Splint was placed in ER - Per ortho surgery not recommended, but Cock-up splint or no splint recommended prior to transition to Geriatric psychiatric unit - Pain control with Tylenol PRN (7) Elevated troponin: Plan: - likely in the setting of demand ischemia due to volume-contracted state - No ischemic changes present on EKG - was 28.5 on 12/27 -> 28.1 on 12/28 (8) Rhabdomyolysis: Plan: - Patient with elevation of SF=740 reduced to 495 12/28. UA with presence of blood without RBC. Renal function is overall near baseline. - IVF with Plasmalyte started yesterday; patient very uncooperative for IVF - Will continue to monitor status Admission and Anticipated Discharge Date Admission Date: December 28, 2023 Supervising Physician Co-Signing Physician Notes Please see my attestation in the separate communication note of the same date. Zoie Gutierrez was seen and evaluated at bedside this morning and afternoon. She has was more lively and talkative this morning, able to answer simple questions appropriately. Smiling appropriately as well, but orientation still difficult to obtain - patient started tearing up a little upon being asked what her full name is and where she is right now, did not provide intelligible responses. Was able to say "no" to asking if she was in any pain, and said "bye" and waved upon leaving room. This afternoon, her fiance was in the room visiting, able to confirm that aimee t is close to baseline mentation at that time. Unable to gauge significant ROS, but patient has been afebrile and not appearing in acute distress. Review of Systems Review of Systems: All systems reviewed & are unremarkable except as noted in HPI & below Physical Exam Constitutional: WD/WN, vitals as above well developed Eyes: PERRL, conjunctivae normal, anicteric sclerae ENMT: Mouth: + tongue abnormality Neck: trachea midline, no thyromegaly Respiratory: normal respiratory effort, lungs clear to auscultation Cardiovascular: RRR, no murmur, no edema Gastrointestinal (Abdomen): Inspection/Auscultation: normal bowel sounds Musculoskeletal: RUE: velcro brace on R hand due to fracture, mild swelling and ecchymosis, no gross deformity LUE: healing ulcer on dorsal 3rd proximal phalanx Skin: no rashes, warm and dry Neurologic: + confused Speech / Cognition: + abno rmal speech Psychiatric: Orientation: alert Eye Contact: + fair eye contact Affect: + labile affect improvement in cognition and mentation since yesterday, less groggy and more attentive. still difficult to gauge orientation as pt has not been able to appropriately answer these questions (full name, , location) Results & Data Results & Data Vital Signs (Past 12 Hours) Vital Signs Temp Pulse Resp BP Pulse Ox O2 Del Method 01/04/24 14:36 36.6 C 75 18 138/72 96 Room Air 01/04/24 09:35 Room Air 01/04/24 09:16 36.5 C 79 18 152/90 H 96 Room Air Resident Activity Tracking Resident Involvement: Resident Care Provided Care Provided: Adult Hospital Medicine (4) CKD (chronic kidney disease) Chronic kidney disease stage: stage 4 (severe) Qualified Code(s): N18.4 - Chronic kidney disease, stage 4 (severe) (6) Right hand fracture Encounter type: initial encounter Fracture type: closed Qualified Code(s): S62.91XA - Unspecified fracture of right wrist and hand, initial encounter for closed fracture (8) Rhabdomyolysis Encounter type: initial encounter Rhabdomyolysis type: traumatic Qualified Code(s): T79.6XXA - Traumatic ischemia of muscle, initial encounter
[2024-01-04] MEDS: MELATONIN 3 MG TAB PO PRN (22:42)
[2024-01-05] MEDS: LORazepam 1 MG TAB PO PRN (02:26)
[2024-01-05 10:20] LABS: Calcium 9.7 mg/dl (8.6-10.3); Potassium 4.7 mmol/L (3.5-5.1)
--- NOTE | 2024-01-05 10:24 | Nephrology Progress Note ---
Date of Service January 05, 2024 Assessment & Plan (1) Hypernatremia: (2) Chronic kidney disease, stage 4 (severe): (3) UTI (urinary tract infection): (4) Hypertension: (5) Anemia: (6) Schizoaffective disorder, bipolar type: Plan 73 year-old female with history of stage IV CKD, Hypernatremia, admitted with acute stefan and schizoaffective disorder. Baseline creatinine has been around 2.5 mg/dl, kidney function has been stable since admission. On admission sodium was normal but rapidly increased to 151 most likely with decreased p.o. intake with responsiveness with haloperidol and higher dose of lithium to control agitation. 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 Sodium has been stable around 1 36-1 40, kidney function stable, she is able to drink enough to compensate for high urine output. -- Encouraged her to continue to drink enough liquids as she feels thirsty. -- wait for lab this morning. Admission and Anticipated Discharge Date Admission Date: December 28, 2023 Zoie Gutierrez was seen and evaluated this morning. She has been overall doing well, comfortable, has been drinking lots of free water, Na 136 to 140. Kidney function staying relatively stable. Blood pressure well-controlled. Review of Systems Review of Systems: Detailed review of system was limited because of her difficulty with hearing and speech. Physical Exam Constitutional: WD/WN, vitals as above no acute distress Eyes: + anicteric sclerae Respiratory: Auscultation: lungs clear to auscultation bilaterally Cardiovascular: RRR, no murmur, no edema Neurologic: no focal motor deficits Psychiatric: Orientation: alert and cooperative Results & Data Vital Signs (Past 12 Hours) Vital Signs Temp Pulse Resp BP Pulse Ox O2 Del Method 01/05/24 09:20 Room Air 01/05/24 08:29 36.7 C 88 18 133/63 96 Room Air 01/04/24 23:03 Room Air PG Care Time/CCT Total # of Minutes Spent Total Time Spent with Patient: Total time spent is greater than 50% in coordination of care (as documented) at patient's floor/unit and/or counseling patient: Coding Level of Care Code 47316 SUB INP/OBS CARE 1/25MIN Diagnoses Hypernatremia E87.0 Chronic kidney disease, stage 4 (severe) N18.4 Urinary tract infection with hematuria, site unspecified N39.0; R31.9 Urinary tract infection type: site unspecified Hematuria presence: with hematuria Hypertension I10 Anemia D64.9 Schizoaffective disorder, bipolar type F25.0 (3) UTI (urinary tract infection) Urinary tract infection type: site unspecified Hematuria presence: with hematuria Qualified Code(s): N39.0 - Urinary tract infection, site not specified; R31.9 - Hematuria, unspecified
[2024-01-05 10:26] LABS: BUN Creatinine Ratio 16.8 (10-20); Creatinine Clr Calc Pharmacy 19.3 ml/min; Est GFR (African American) 25.3 ml/min; Est GFR (Non-African American) 21.8 ml/min
--- NOTE | 2024-01-05 12:53 | Psychiatric Progress Note ---
Date of Service January 05, 2024 Impression / Recommendations Impression 73-year-old woman with history of schizoaffective disorder, bipolar type who presents with recent agitation and aggressive behavior in her [facility] ([facility]). She has been restless and presented self-harm behaviors including banging head and limbs against wall. She has elevated creatinine with progressive renal dysfunction due to long-term lithium use. Psychiatry consulted for evaluation and management. Now 303 commitment. Diagnostically consistent with schizoaffective disorder current episode of acute stefan. Most recent [place] level is 0.4 and subtherapeutic. Given ongoing symptoms of stefan and poor efficacy of prior and recent alternative mood stabilizers and already on two antipsychotic medications it is felt that risk of further renal impairment is outweighed by benefit of lithium titration for mood stabilization given significant negative impacts from current manic episode including self-harming and disorganized behaviors to the point of sustaining a metacarpal fracture. A: Mood improving, less restlessness, confusion lessening significantly. Tolerating higher dose of [place] so far and seems to be helping with episode of stefan. Will check level tomorrow morning. The patient remains hospitalized on a completed 303 involuntary commitment. This patient must remain on safety precautions with a 1-on-1 and is unable to leave the hospital AMA. Overall, I spent a total of 25 minutes with this case including review of chart records, nursing report, review of lab work, direct evaluation of the patient at bedside, discussion with the psychiatric liaison during clinical rounds, discussion with RN and hospitalist provider, and documentation in the electronic health record. (1) Schizoaffective disorder, bipolar type: Plan -Now on a 303 commitment, cannot leave AMA; geriatric psychiatry bed search -Continue 1-on-1 -Continue with increased [place] 300mg daily -Repeat [place] level Tuesday morning (close to 24 hour trough since she takes Li in the AM) -Continue Carpiprazine 3mg BID -Continue Olanzapine 5mg QAM, 20mg QDD -Continue Lamotrigine 150mg BIDPM -Discontinued Depakote -Ativan 1mg HS and ativan 1mg TID po prn for agitation. -For behavioral emergency: olanzapine 2.5 mg IM x 1 (DO NOT exceed 10mg via IM sources per 24 hours, check EKG if IM dose required, NEVER co-administer with IM or IV benzodiazepines). Interval History Identifying Information 73-year-old female history of schizoaffective disorder, bipolar type who presents with recent agitation and aggressive behavior in her m[facility] ([facility]). Patient has been restless and presented self-harm behaviors including banging head and limbs against wall. Patient has elevated creatinine with progressive renal dysfunction due to long-term lithium use. Psychiatry consulted for evaluation and management. Chief Complaint "I need clothes". Subjective Subjective Patient was seen & assessed and interval progress reviewed. Required ativan overnight, unclear why. Today is pleasant and talking about clothes and wishing she could go shopping and have some of her items at the hospital. Denies any headache. Some hand pain and pain from IV site. Mild tremor noted on left hand with hands outstretched. Physical Exam Psychiatric Orientation: alert, oriented to person, oriented to place, oriented to time and cooperative Apperance: appropriately dressed Eye Contact: good eye contact Motor Behavior: no abnormal motor movements; n tremor Speech: + abnormal rate/rhythm/volume of speech (difficult to understand at times due mumbled speech) Affect: euthymic affect Mood: no depressed mood and no anxious mood Thought Process: + concrete thought process Insight: + limited insight Judgment: + limited judgement Vital Signs (Past 24 Hours) Last Vital Signs Temp 36.7 C 01/05/24 08:29 Pulse 88 01/05/24 08:29 Resp 18 01/05/24 08:29 BP 133/63 01/05/24 08:29 Pulse Ox 96 01/05/24 08:29 O2 Del Method Room Air 01/05/24 09:20 Results & Data ([facility]) Laboratory Results Laboratory Results - last 24 hr 01/05/24 01/05/24 03:48 09:29 Sodium 140 Potassium 4.7 Chloride 108 H Carbon Dioxide 26 Anion Gap 6 BUN 37 H Creatinine 2.20 H Est Cr Clr Drug Dosing 19.3 Est GFR ( Amer) 25.3 Est GFR (Non-Af Amer) 21.8 BUN/Creatinine Ratio 16.8 Glucose 135 H Osmolality 310 H Calcium 9.7 Urine Osmolality 155 L Current Inpatient Medications Current Inpatient Medications: Current Inpatient Medications Acetaminophen (Acetaminophen 325 Mg Tab) 650 mg PO QID PRN PRN Reason: Fever Or Pain Stop: 01/28/24 00:40 Last Admin: 01/05/24 09:11 Dose: 650 mg Amlodipine Besylate (Amlodipine Besylate 5 Mg Tab) 5 mg PO QAM [facility] Stop: 02/02/24 08:59 Last Admin: 01/05/24 09:13 Dose: 5 mg Bisacodyl (Bisacodyl 10 Mg Supp) 10 mg OR DAILY PRN PRN Reason: Constipation Stop: 01/28/24 00:40 Cariprazine (Cariprazine Hcl 3 Mg Cap) 3 mg PO BIDM [facility] Stop: 01/28/24 07:59 Last Admin: 01/05/24 09:12 Dose: 3 mg Clotrimazole (Clotrimazole 1% Cr 15 Gm Tube) 1 appln EXT BID PRN PRN Reason: Rash Stop: 02/02/24 19:39 Diclofenac Sodium (Diclofenac Sod 1% Gel 100 Gm Tube) 2 gm EXT QID [facility]; Protocol Stop: 01/28/24 08:59 Last Admin: 01/05/24 09:16 Dose: 2 gm Diclofenac Sodium (Diclofenac Sod 1% Gel 100 Gm Tube) 4 gm EXT QID [facility]; Protocol Stop: 01/28/24 08:59 Last Admin: 01/05/24 09:17 Dose: 4 gm Haloperidol Lactate (Haloperidol Lactate 5 Mg/Ml 1 Ml Vial) 1 mg IM Q4H PRN PRN Reason: Agitation Stop: 01/28/24 00:07 Last Admin: 01/04/24 00:55 Dose: 1 mg Lamotrigine (Lamotrigine 100 Mg Tab) 150 mg PO BIDM [facility] Stop: 01/28/24 07:59 Last Admin: 01/05/24 09:12 Dose: 150 mg [place] Carbonate ([place] Carbonate Slow Rel 300 Mg Tab) 300 mg PO DAILY [facility] Stop: 01/31/24 09:29 Last Admin: 01/05/24 09:13 Dose: 300 mg Lorazepam (Lorazepam 1 Mg Tab) 1 mg PO TID PRN PRN Reason: Agitation Stop: 02/02/24 09:45 Last Admin: 01/05/24 02:26 Dose: 1 mg Lorazepam (Lorazepam 1 Mg Tab) 1 mg PO HS [facility] Stop: 02/02/24 20:59 Last Admin: 01/04/24 20:09 Dose: 1 mg Magnesium Hydroxide (Magnesium Hydroxide Susp 30 Ml Udc) 30 ml PO DAILY [facility] Stop: 01/28/24 08:59 Last Admin: 01/05/24 09:14 Dose: Not Given Melatonin (Melatonin 3 Mg Tab) 3 mg PO HS PRN PRN Reason: Sleep Stop: 02/03/24 22:10 Last Admin: 01/04/24 22:42 Dose: 3 mg Olanzapine (Olanzapine 5 Mg Tablet) 5 mg PO QAM [facility] Stop: 01/28/24 08:59 Last Admin: 01/05/24 09:14 Dose: 5 mg Olanzapine (Olanzapine 20 Mg Tablet) 20 mg PO QDD [facility] Stop: 01/28/24 16:29 Last Admin: 01/04/24 17:42 Dose: 20 mg
--- NOTE | 2024-01-05 13:53 | Hospitalist Progress Note ---
Date of Service January 05, 2024 Assessment & Plan (1) Schizoaffective disorder, bipolar type: Plan: Following recommendations per psychiatry consultation: Plan - 303 hearing successful, patient given 20 more days of psychiatric hold - keep pt for medical stabilization and geriatric psych facility will be more willing to accept pt - cannot leave AMA; geriatric psychiatry bed search once medically stable -Continue 1-on-1 observation -Continue [place] to 300mg daily - [place] level to be drawn tomorrow -Continue Carpiprazine 3mg BID -Continue Olanzapine 5mg QAM, 20mg QDD -Continue Lamotrigine 150mg BIDPM -Hold Depakote PRNs: - Haldol 1mg IV q 4 hours as needed for agitation; 2 doses last night for acute agitation - Ativan PO prn, scheduled Ativan PO QHS for sleep Geriatric psychiatric facility placement pending medical stabilization and therapeutic lithium blood level. Present on Admission?: Yes (2) Hypernatremia: Plan: 01/04/24 AM: resolved to 136 with overnight D5 infusion - IV fluids discontinued as of this afternoon - continue BMP qAM 01/05/24: 140 this morning - BMP in morning - follow nephrology note and recommendations (3) Hypertension: Plan: mainly systolic 130s-150s and diastolic 60s-70s over past day - continue amlodipine 5mg qAM (4) CKD (chronic kidney disease): Plan: stage IV CKD Creatinine 2.2 (pt's baseline per Nephrology visits: 2.4) GFR: 21.8, highest it has been for past several months - continue PO hydration, IV fluids discontinued yesterday after hypernatremia resolution (5) Hyperchloremia: Plan: 108 currently (normal range 98-107) - continue PO hydration and meals (6) Right hand fracture: Plan: - Patient with proximal second metacarpal fracture noted of the right hand. Splint was placed in ER - Per ortho surgery not recommended, but Cock-up splint or no splint recommended prior to transition to Geriatric psychiatric unit (7) Elevated troponin: Plan: resolved, previously likely in the setting of demand ischemia due to volume- contracted state - No ischemic changes present on EKG - was 28.5 on 12/27 -> 28.1 on 12/28 (8) Rhabdomyolysis: Plan: - Patient with elevation of LB=194 reduced to 495 12/28. UA with presence of blood without RBC. Renal function is overall near baseline. - Will continue to monitor status Admission and Anticipated Discharge Date Admission Date: December 28, 2023 Supervising Physician Co-Signing Physician Notes ATTESTATION I also saw the patient and confirmed mann portions of the history and exam. I agree with the impression and plan in the resident documentation, and as summarized below. Today, her fianc had just visited prior to our exam. She was sleeping but easily awakens. No complaints. Per the one-to-one, no behavioral issues. She has been quite calm. EXAM 155/79, 84, 18, 36.9, 95% room air Awake, alert. Heart regular rate and rhythm Respirations unlabored DATA Labs Sodium 140, potassium 4.7, BUN 37, creatinine 2.20. Glucose 135 Osmolality 310 IMPRESSION & PLAN Schizoaffective disorder, bipolar type Suspect lithium induced water diuresis/DI CKD stage IV She again looks better today in terms of her interaction/level of alertness. No observed behavioral problems today. Appreciate nephrology consultation with regards to CKD and hyponatremia. Due for lithium level tomorrow a.m. Recheck BMP in a.m. Nearing medical stability just need to clarify renal issues with regards to lithium dosing Additional per resident documentation Subjective Brenda was evaluated at bedside this morning. Alert, still not oriented to self, time, or place, but in pleasant mood. Was able to speak in some full sentences that could be understood, for example she asked "how much longer until it heals?" referring to her R hand fracture. I told her "maybe a couple more months" to which she responded "like 6 weeks?" Additionally having good eye contact. Otherwise denies being in any pain or discomfort, continuing to drink plenty of water and eating meals. Says "goodbye" and waves hand appropriately upon leaving room. No other significant ROS obtained. Review of Systems Review of Systems: All systems reviewed & are unremarkable except as noted in HPI & below Physical Exam Constitutional: WD/WN, vitals as above well developed Eyes: PERRL, conjunctivae normal, anicteric sclerae ENMT: Mouth: + tongue abnormality protruding tongue, interferes with speech Neck: trachea midline, no thyromegaly Respiratory: normal respiratory effort, lungs clear to auscultation Cardiovascular: RRR, no murmur, no edema Gastrointestinal (Abdomen): normal bowel sounds, soft, nontender, no hepatosplenomegaly Musculoskeletal: R hand up to distal third of forearm with velcro brace for hand fracture, mild swelling and ecchymosis, no gross deformity no cyanosis or clubbing, unable to assess strength on resistance but able to move extremities spontaneously and against gravity Skin: no rashes, warm and dry healing lesion on L dorsal 3rd proximal phalanx Neurologic: Speech / Cognition: + abnormal speech and + abnormal cognition Psychiatric: Orientation: alert and cooperative Eye Contact: + fair eye contact Affect: euthymic affect Results & Data Results & Data Vital Signs (Past 12 Hours) Vital Signs Temp Pulse Resp BP Pulse Ox O2 Del Method 01/05/24 09:20 Room Air 01/05/24 08:29 36.7 C 88 18 133/63 96 Room Air Resident Activity Tracking Resident Involvement: Resident Care Provided Care Provided: Adult Hospital Medicine (4) CKD (chronic kidney disease) Chronic kidney disease stage: stage 4 (severe) Qualified Code(s): N18.4 - Chronic kidney disease, stage 4 (severe) (6) Right hand fracture Encounter type: initial encounter Fracture type: closed Qualified Code(s): S62.91XA - Unspecified fracture of right wrist and hand, initial encounter for closed fracture (8) Rhabdomyolysis Encounter type: initial encounter Rhabdomyolysis type: traumatic Qualified Code(s): T79.6XXA - Traumatic ischemia of muscle, initial encounter
[2024-01-05] MEDS: MoRPHine SULFATE 2 MG/ML CARP IV STA (20:02)
--- NOTE | 2024-01-06 07:05 | Hospitalist Progress Note ---
Date of Service January 06, 2024 Assessment & Plan (1) Schizoaffective disorder, bipolar type: Plan: Following recommendations per psychiatry consultation: Plan - 01/04/24: 303 hearing successful, patient given 20 more days of psychiatric hold - patient is now medically stable for inpatient geriatric psychiatry treatment (see below assessments) - cannot leave AMA; geriatric psychiatry bed search once medically stable -Continue 1-on-1 observation -Continue [place] to 300mg daily - [place] level drawn today, await level -Continue Carpiprazine 3mg BID -Continue Olanzapine 5mg QAM, 20mg QDD -Continue Lamotrigine 150mg BIDPM -Hold Depakote PRNs: - Haldol 1mg IV q 4 hours as needed for agitation; 2 doses last night for acute agitation - Ativan PO prn, scheduled Ativan PO QHS for sleep Geriatric psychiatric facility placement pending therapeutic lithium blood level and bed approval. Present on Admission?: Yes (2) CKD (chronic kidney disease): Plan: stage IV CKD 01/05/24: Creatinine 2.2 (pt's baseline per Nephrology visits: 2.4) GFR: 21.8, highest it has been for past several months - continue PO hydration, IV fluids discontinued yesterday after hypernatremia resolution 01/06/24: cretinine 2.25, patient remaining below baseline creatinine level - continuing PO hydration as electrolyte disturbances have also been resolved - nephrology agrees patient is stable from a medical perspective - patient is now medically stable for inpatient geriatric psychiatry treatment Present on Admission?: Yes (3) Hypernatremia: Plan: 01/04/24 AM: resolved to 136 with overnight D5 infusion - IV fluids discontinued as of this afternoon - continue BMP qAM 01/05/24: 140 this morning - BMP in morning - follow nephrology note and recommendations 01/06/24: 138, appears to be stable - continue qAM BMP - nephrology signed off as patient is in stable medical condition Present on Admission?: Yes (4) Hypertension: Plan: mainly systolic 130s-160s and diastolic 60s-90s over past several days, asymptomatic as patient has not been agitated - continue amlodipine 5mg qAM Present on Admission?: Yes (5) Hyperchloremia: Plan: 01/06/24: 107, appears stable - continue PO hydration and meals (6) Right hand fracture: Plan: - Patient with proximal second metacarpal fracture noted of the right hand. Splint was placed in ER - Per ortho surgery not recommended, but Cock-up splint or no splint recommended prior to transition to Geriatric psychiatric unit (7) Elevated troponin: Plan: resolved, previously likely in the setting of demand ischemia due to volume- contracted state - No ischemic changes present on EKG - was 28.5 on 12/27 -> 28.1 on 12/28 (8) Rhabdomyolysis: Plan: - Patient with elevation of IC=328 reduced to 495 12/28. UA with presence of blood without RBC. Renal function is overall near baseline. - Will continue to monitor status Admission and Anticipated Discharge Date Admission Date: December 28, 2023 Supervising Physician Co-Signing Physician Notes I personally examined the patient and verified mann points of history and exam, discussed case, and agree with decision making and plan documented by Dr. Davenport. Patient struggles with hearing, communicates well by written questioning. She denies pain. She appears comfortable, right wrist in splint, lungs clear b/l to auscultation, regular rate and rhythm. Currently patient on 303 involuntary commitment and plan is for her to be placed inpatient psychiatric unit for continued stabilization. Subjective Brenda was evaluated at bedside this morning. Alert, still not oriented to self, time, or place, but continues to be in pleasant mood. Was eating her breakfast at time of encounter, said "no" to asking whether she was in any pain. Upon being asked what my name is, patient was able to recite it correctly. Otherwise denies being in any pain or discomfort, continuing to drink plenty of water. Says "goodbye" and waves hand appropriately upon leaving room. No other significant ROS obtained. Review of Systems Review of Systems: Unobtainable due to mental health condition and Unobtain able due to cognitive status Physical Exam Constitutional: WD/WN, vitals as above well developed Eyes: PERRL, conjunctivae normal, anicteric sclerae + anicteric sclerae ENMT: Mouth: + tongue abnormality protruding tongue which interferes with her speech Neck: trachea midline, no thyromegaly normal visual inspection Respiratory: normal respiratory effort, lungs clear to auscultation Cardiovascular: RRR, no murmur, no edema Gastrointestinal (Abdomen): normal bowel sounds, soft, nontender, no hepatosplenomegaly Skin: no rashes, warm and dry Neurologic: + confused Speech / Cognition: + abno rmal speech and + abnormal cognition Psychiatric: Orientation: alert and cooperative Eye Contact: + fair eye contact Affect: euthymic affect Results & Data Results & Data Vital Signs (Past 12 Hours) Vital Signs Temp Pulse Resp BP Pulse Ox O2 Del Method 01/06/24 05:29 36.8 C 88 16 151/80 H 98 Room Air 01/06/24 01:35 Room Air 01/05/24 21:38 82 171/92 H 95 Room Air Resident Activity Tracking Resident Involvement: Resident Care Provided Care Provided: Adult [facility] (2) CKD (chronic kidney disease) Chronic kidney disease stage: stage 4 (severe) Qualified Code(s): N18.4 - Chronic kidney disease, stage 4 (severe) (6) Right hand fracture Encounter type: initial encounter Fracture type: closed Qualified Code(s): S62.91XA - Unspecified fracture of right wrist and hand, initial encounter for closed fracture (8) Rhabdomyolysis Encounter type: initial encounter Rhabdomyolysis type: traumatic Qualified Code(s): T79.6XXA - Traumatic ischemia of muscle, initial encounter
[2024-01-06 09:56] LABS: Hematocrit (blood only) 34.1 % (37.0-47.0); Hemoglobin 10.9 g/dl (12.0-16.0); Mean Corpuscular Hemoglobin 29.5 pg (25.0-34.0); Mean Corpuscular Volume 92.2 fL (80.0-100.0); Mean Platelet Volume 10.1 fL (9.4-12.4); Platelet Count 306 K/uL (130-400); RDW Coefficient of Variation 14.9 % (11.5-14.5); RDW Standard Deviation 50.2 fL (36.4-46.3); White Blood Count 6.52 K/ul (4.8-10.8)
[2024-01-06 10:06] LABS: Calcium 9.3 mg/dl (8.6-10.3); Potassium 4.6 mmol/L (3.5-5.1)
[2024-01-06 10:12] LABS: BUN Creatinine Ratio 16.9 (10-20); Creatinine Clr Calc Pharmacy 18.9 ml/min; Est GFR (African American) 24.6 ml/min; Est GFR (Non-African American) 21.2 ml/min
--- NOTE | 2024-01-06 11:50 | Psychiatric Progress Note ---
Date of Service January 06, 2024 Impression / Recommendations Impression 73-year-old woman with history of schizoaffective disorder, bipolar type who presents with recent agitation and aggressive behavior in her [place] ([facility]). She has been restless and presented self-harm behaviors including banging head and limbs against wall. She has elevated creatinine with progressive renal dysfunction due to long-term lithium use. Psychiatry consulted for evaluation and management. Now 303 commitment. Diagnostically consistent with schizoaffective disorder current episode of acute stefan. Most recent [place] level is 0.4 and subtherapeutic. Given ongoing symptoms of stefan and poor efficacy of prior and recent alternative mood stabilizers and already on two antipsychotic medications it is felt that risk of further renal impairment is outweighed by benefit of lithium titration for mood stabilization given significant negative impacts from current manic episode including self-harming and disorganized behaviors to the point of sustaining a metacarpal fracture. A: Mood improving, per her partner she is looking much closer to her baseline. [place] level of 0.5 since dose was increased. Bed search for [facility] psych inpatient once medically stable. The patient remains hospitalized on a completed 303 involuntary commitment. This patient must remain on safety precautions with a 1-on-1 and is unable to leave the hospital AMA. Overall, I spent a total of 25 minutes with this case including review of chart records, nursing report, review of lab work, direct evaluation of the patient at bedside, discussion with the psychiatric liaison during clinical rounds, discussion with RN and hospitalist provider, and documentation in the electronic health record. (1) Schizoaffective disorder, bipolar type: Plan -Now on a 303 commitment, cannot leave AMA; geriatric psychiatry bed search -Continue 1-on-1 -Continue with increased [place] 300mg daily -Continue Carpiprazine 3mg BID -Continue Olanzapine 5mg QAM, 20mg QDD -Continue Lamotrigine 150mg BIDPM -Discontinued Depakote -Ativan 1mg HS and ativan 1mg TID po prn for agitation. -For behavioral emergency: olanzapine 2.5 mg IM x 1 (DO NOT exceed 10mg via IM sources per 24 hours, check EKG if IM dose required, NEVER co-administer with IM or IV benzodiazepines). Interval History Identifying Information 73-year-old female history of schizoaffective disorder, bipolar type who presents with recent agitation and aggressive behavior in her [place] ([facility]). Patient has been restless and presented self-harm behaviors including banging head and limbs against wall. Patient has elevated creatinine with progressive renal dysfunction due to long-term lithium use. Psychiatry consulted for evaluation and management. Chief Complaint "I'm hallucinating". Subjective Subjective Patient was seen & assessed and interval progress reviewed. Sitting on the bed and her partner Alex is visiting. She reports her mood is ok today but thinks she might be hallucinating of hearing and seeing things. She is unable to clarify further. Doesn't appear to be responding to any internal stimuli during our discussion. Oriented and asks for clarification about how she hurt her hand and how long she's been in the hospital. Denies any headache. Seems to be tolerating higher dose of [place]. Alex reports that he thinks she is getting much closer to her normal baseline and is hopeful she may be able to be discharged soon. Physical Exam Psychiatric Orientation: alert, oriented to person, oriented to place, oriented to time and cooperative Apperance: appropriately dressed Eye Contact: good eye contact Motor Behavior: no abnormal motor movements; n tremor Speech: + abnormal rate/rhythm/volume of speech (difficult to understand at times due mumbled speech) Affect: euthymic affect Mood: no depressed mood and no anxious mood Thought Process: + concrete thought process Insight: + limited insight Judgment: + limited judgement Vital Signs (Past 24 Hours) Last Vital Signs Temp 36.4 C L 01/06/24 07:37 Pulse 77 01/06/24 07:37 Resp 16 01/06/24 07:37 BP 167/65 H 01/06/24 07:37 Pulse Ox 97 01/06/24 07:37 O2 Del Method Room Air 01/06/24 07:37 Results & Data ([facility]) Laboratory Results Laboratory Results - last 24 hr 01/06/24 09:12 WBC 6.52 RBC 3.70 L Hgb 10.9 L Hct 34.1 L MCV 92.2 MCH 29.5 MCHC 32.0 RDW Std Deviation 50.2 H RDW Coeff of Rachel 14.9 H Plt Count 306 MPV 10.1 Sodium 138 Potassium 4.6 Chloride 107 Carbon Dioxide 23 Anion Gap 8 BUN 38 H Creatinine 2.25 H Est Cr Clr Drug Dosing 18.9 Est GFR ( Amer) 24.6 Est GFR (Non-Af Amer) 21.2 BUN/Creatinine Ratio 16.9 Glucose 148 H Calcium 9.3 [place] 0.5 L Current Inpatient Medications Current Inpatient Medications: Current Inpatient Medications Acetaminophen (Acetaminophen 325 Mg Tab) 650 mg PO QID PRN PRN Reason: Fever Or Pain Stop: 01/28/24 00:40 Last Admin: 01/06/24 06:03 Dose: 650 mg Amlodipine Besylate (Amlodipine Besylate 5 Mg Tab) 5 mg PO QAM [facility] Stop: 02/02/24 08:59 Last Admin: 01/06/24 08:32 Dose: 5 mg Bisacodyl (Bisacodyl 10 Mg Supp) 10 mg OK DAILY PRN PRN Reason: Constipation Stop: 01/28/24 00:40 Cariprazine (Cariprazine Hcl 3 Mg Cap) 3 mg PO BIDM [facility] Stop: 01/28/24 07:59 Last Admin: 01/06/24 08:33 Dose: 3 mg Clotrimazole (Clotrimazole 1% Cr 15 Gm Tube) 1 appln EXT BID PRN PRN Reason: Rash Stop: 02/02/24 19:39 Diclofenac Sodium (Diclofenac Sod 1% Gel 100 Gm Tube) 2 gm EXT QID [facility]; Protocol Stop: 01/28/24 08:59 Last Admin: 01/06/24 08:34 Dose: 2 gm Diclofenac Sodium (Diclofenac Sod 1% Gel 100 Gm Tube) 4 gm EXT QID [facility]; Protocol Stop: 01/28/24 08:59 Last Admin: 01/06/24 08:35 Dose: 4 gm Haloperidol Lactate (Haloperidol Lactate 5 Mg/Ml 1 Ml Vial) 1 mg IM Q4H PRN PRN Reason: Agitation Stop: 01/28/24 00:07 Last Admin: 01/04/24 00:55 Dose: 1 mg Lamotrigine (Lamotrigine 100 Mg Tab) 150 mg PO BIDM [facility] Stop: 01/28/24 07:59 Last Admin: 01/06/24 08:33 Dose: 150 mg [place] Carbonate ([place] Carbonate Slow Rel 300 Mg Tab) 300 mg PO DAILY [facility] Stop: 01/31/24 09:29 Last Admin: 01/06/24 09:25 Dose: 300 mg Lorazepam (Lorazepam 1 Mg Tab) 1 mg PO TID PRN PRN Reason: Agitation Stop: 02/02/24 09:45 Last Admin: 01/05/24 02:26 Dose: 1 mg Lorazepam (Lorazepam 1 Mg Tab) 1 mg PO HS [facility] Stop: 02/02/24 20:59 Last Admin: 01/05/24 20:02 Dose: 1 mg Magnesium Hydroxide (Magnesium Hydroxide Susp 30 Ml Udc) 30 ml PO DAILY [facility] Stop: 01/28/24 08:59 Last Admin: 01/06/24 09:29 Dose: 30 ml Melatonin (Melatonin 3 Mg Tab) 3 mg PO HS PRN PRN Reason: Sleep Stop: 02/03/24 22:10 Last Admin: 01/04/24 22:42 Dose: 3 mg Olanzapine (Olanzapine 5 Mg Tablet) 5 mg PO QAM [facility] Stop: 01/28/24 08:59 Last Admin: 01/06/24 08:32 Dose: 5 mg Olanzapine (Olanzapine 20 Mg Tablet) 20 mg PO QDD [facility] Stop: 01/28/24 16:29 Last Admin: 01/05/24 17:20 Dose: 20 mg
--- NOTE | 2024-01-06 12:31 | Nephrology Progress Note ---
Date of Service January 06, 2024 Assessment & Plan (1) Hypernatremia: (2) Chronic kidney disease, stage 4 (severe): (3) UTI (urinary tract infection): (4) Hypertension: (5) Anemia: (6) Schizoaffective disorder, bipolar type: Plan 73 year-old female with history of stage IV CKD, Hypernatremia, admitted with acute stefan and schizoaffective disorder. Baseline creatinine has been around 2.5 mg/dl, kidney function has been stable since admission. On admission sodium was normal but rapidly increased to 151 most likely with decreased p.o. intake with responsiveness with haloperidol and higher dose of lithium to control agitation. 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 Sodium has been stable around 136-140, kidney function stable, she is able to drink enough to compensate for high urine output. -- Encouraged to continue to drink enough liquids as she feels thirsty. -- Will sign off, Ok to have out patient f/u with Dr. Rich as currently scheduled. Thank you for the consult, please contact if any further assistance needed. Admission and Anticipated Discharge Date Admission Date: December 28, 2023 Zoie Gutierrez was seen and evaluated this morning. She has been overall doing well, comfortable, Na 136 to 140. Kidney function staying relatively stable. Review of Systems Review of Systems: Detailed review of system was limited because of her difficulty with hearing and speech. Physical Exam Constitutional: WD/WN, vitals as above no acute distress Eyes: + anicteric sclerae Psychiatric: Orientation: alert and cooperative Results & Data Vital Signs (Past 12 Hours) Vital Signs Temp Pulse Resp BP Pulse Ox O2 Del Method 01/06/24 07:37 36.4 C L 77 16 167/65 H 97 Room Air 01/06/24 05:29 36.8 C 88 16 151/80 H 98 Room Air 01/06/24 01:35 Room Air PG Care Time/CCT Total # of Minutes Spent Total Time Spent with Patient: Total time spent is greater than 50% in coordination of care (as documented) at patient's floor/unit and/or counseling patient: Coding Level of Care Code 96071 SUB INP/OBS CARE 2/35MIN Diagnoses Hypernatremia E87.0 Chronic kidney disease, stage 4 (severe) N18.4 Urinary tract infection with hematuria, site unspecified N39.0; R31.9 Urinary tract infection type: site unspecified Hematuria presence: with hematuria Hypertension I10 Anemia D64.9 Schizoaffective disorder, bipolar type F25.0 (3) UTI (urinary tract infection) Urinary tract infection type: site unspecified Hematuria presence: with hematuria Qualified Code(s): N39.0 - Urinary tract infection, site not specified; R31.9 - Hematuria, unspecified
--- NOTE | 2024-01-07 07:04 | Hospitalist Progress Note ---
Date of Service January 07, 2024 Assessment & Plan (1) Schizoaffective disorder, bipolar type: Plan: Following recommendations per psychiatry consultation: Plan - 01/04/24: 303 hearing successful, patient given 20 more days of psychiatric hold - patient is now medically stable for inpatient geriatric psychiatry treatment (see below assessments) - cannot leave AMA; geriatric psychiatry bed search pending -Continue 1-on-1 observation -Continue [place] to 300mg daily - [place] level drawn 01/05; 0.5 -Continue Carpiprazine 3mg BID -Continue Olanzapine 5mg QAM, 20mg QDD -Continue Lamotrigine 150mg BIDPM -Hold Depakote PRNs: - Haldol 1mg IV q 4 hours as needed for agitation; 2 doses last night for acute agitation - Ativan PO prn, scheduled Ativan PO QHS for sleep Geriatric psychiatric facility placement pending therapeutic lithium blood level and bed approval. (2) CKD (chronic kidney disease): Plan: Stage IV CKD Baseline per Nephrology visits: 2.4, 2.2 today - continue PO hydration, IV fluids discontinued after hypernatremia resolution - nephrology agrees patient is stable from a medical perspective - patient is now medically stable for inpatient geriatric psychiatry treatment (3) Hypernatremia: Plan: - peak Na level 151, has resolved and now normal since 01/01 - nephrology signed off as patient is in stable medical condition (4) Hypertension: Plan: - BPs have been largely permissive - continue amlodipine 5mg qAM (5) Hyperchloremia: Plan: - continue PO hydration and meals (6) Right hand fracture: Plan: - Patient with proximal second metacarpal fracture noted of the right hand. Splint was placed in ER - Per ortho surgery not recommended, but Cock-up splint or no splint recommended prior to transition to Geriatric psychiatric unit (7) Elevated troponin: Plan: Resolved, previously likely in the setting of demand ischemia due to volume- contracted state - No ischemic changes present on EKG - was 28.5 on 12/27 -> 28.1 on 12/28 (8) Rhabdomyolysis: Plan: - Patient with elevation of VR=582 on admission, reduced to 495 12/28. UA with presence of blood without RBC. Renal function is overall near baseline. Admission and Anticipated Discharge Date Admission Date: December 28, 2023 Supervising Physician Co-Signing Physician Notes I personally examined the patient and verified mann points of history and exam, discussed case, and agree with decision making and plan documented by Dr. Davenport. Patient pleasant and conversant on exam today. Currently patient on 303 involuntary commitment and plan is for her to be placed inpatient psychiatric unit for continued stabilization. Subjective Pt seen at bedside, eating. Appears comfortable as she eats and watches TV. Denies any pain anywhere, states she is feeling good. No questions or complaints noted at this time. Review of Systems Review of Systems: Per HPI. Physical Exam Physical Exam: General:Not oriented, but awake, alert, comfortable appearing HEENT: Normocephalic, moist oral mucosa, Cardio: Regular rate and rhythm, Resp:Lungs clear to auscultation b/l, no wheezes or rhonchi, Skin: Warm, pink, dry, Results & Data Results & Data Vital Signs (Past 12 Hours) Vital Signs Temp Pulse Resp BP Pulse Ox O2 Del Method 01/07/24 06:58 36.9 C 86 16 153/72 H 92 Room Air 01/06/24 22:30 36.7 C 86 15 164/68 H 94 Room Air 01/06/24 22:24 Room Air Resident Activity Tracking Resident Involvement: Resident Care Provided Care Provided: Adult Hospital Medicine (2) CKD (chronic kidney disease) Chronic kidney disease stage: stage 4 (severe) Qualified Code(s): N18.4 - Chronic kidney disease, stage 4 (severe) (6) Right hand fracture Encounter type: initial encounter Fracture type: closed Qualified Code(s): S62.91XA - Unspecified fracture of right wrist and hand, initial encounter for closed fracture (8) Rhabdomyolysis Encounter type: initial encounter Rhabdomyolysis type: traumatic Qualified Code(s): T79.6XXA - Traumatic ischemia of muscle, initial encounter
[2024-01-07 08:55] LABS: Hematocrit (blood only) 32.4 % (37.0-47.0); Hemoglobin 10.1 g/dl (12.0-16.0); Mean Corpuscular Hemoglobin 29.1 pg (25.0-34.0); Mean Corpuscular Hgb Conc 31.2 g/dL (32.0-36.0); Mean Corpuscular Volume 93.4 fL (80.0-100.0); Mean Platelet Volume 10.4 fL (9.4-12.4); Platelet Count 314 K/uL (130-400); RDW Coefficient of Variation 14.9 % (11.5-14.5); Red Blood Count 3.47 M/uL (4.20-5.40); White Blood Count 5.62 K/ul (4.8-10.8)
[2024-01-07 09:14] LABS: BUN Creatinine Ratio 19.3 (10-20); Calcium 8.8 mg/dl (8.6-10.3); Creatinine Clr Calc Pharmacy 18.6 ml/min; Est GFR (African American) 24.2 ml/min; Est GFR (Non-African American) 20.9 ml/min; Potassium 4.7 mmol/L (3.5-5.1)
--- NOTE | 2024-01-07 13:36 | Psychiatric Progress Note ---
Date of Service January 07, 2024 Impression / Recommendations Impression 73-year-old woman with history of schizoaffective disorder, bipolar type who presents with recent agitation and aggressive behavior in her snf ([facility]). She has been restless and presented self-harm behaviors including banging head and limbs against wall. She has elevated creatinine with progressive renal dysfunction due to long-term lithium use. Psychiatry consulted for evaluation and management. Now 303 commitment. Diagnostically consistent with schizoaffective disorder current episode of acute stefan. Given symptoms of stefan and poor efficacy of prior and recent alternative mood stabilizers and already on two antipsychotic medications it is felt that risk of further renal impairment is outweighed by benefit of lithium titration for mood stabilization given significant negative impacts from current manic episode including self-harming and disorganized behaviors to the point of sustaining a metacarpal fracture. A: [place] level from yesterday is 0.5. Patient has been presenting more stable behavior with improved sleep. Her speech is less dysarthric. Collateral reveals she is approaching her baseline function. She is future oriented. Labs reviewed and creatinine and sodium levels have been stable. Recommend to continue daily lithium dose of 300 mg. Continue with [facility] psych bed search. The patient remains hospitalized on a completed 303 involuntary commitment. This patient must remain on safety precautions with a 1-on-1 and is unable to leave the hospital AMA. Overall, I spent a total of 25 minutes with this case including review of chart records, nursing report, review of lab work, direct evaluation of the patient at bedside, discussion with the psychiatric liaison during clinical rounds, and documentation in the electronic health record. (1) Schizoaffective disorder, bipolar type: Plan -Now on a 303 commitment, cannot leave AMA; geriatric psychiatry bed search -Continue 1-on-1 -Continue with [place] 300mg daily -Continue Carpiprazine 3mg BID -Continue Olanzapine 5mg QAM, 20mg QDD -Continue Lamotrigine 150mg BIDPM -Discontinued Depakote -Ativan 1mg HS and ativan 1mg TID po prn for agitation. -For behavioral emergency: olanzapine 2.5 mg IM x 1 (DO NOT exceed 10mg via IM sources per 24 hours, check EKG if IM dose required, NEVER co-administer with IM or IV benzodiazepines). Interval History Identifying Information 73-year-old woman with history of schizoaffective disorder, bipolar type who presents with recent agitation and aggressive behavior in her snf ([facility]). She has been restless and presented self-harm behaviors including banging head and limbs against wall. She has elevated creatinine with progressive renal dysfunction due to long-term lithium use. Psychiatry consulted for evaluation and management. Now 303 commitment. Chief Complaint "doing ok" Subjective Subjective Communicated with the patient verbally and through written notes. She reports sleeping well. Presents a bright affect and cheerful with the team. She asked how long she will have a wrist brace on. No complaints or concerns. Physical Exam Mental Examination Appearance: Disheveled Eye Contact: Maintains Eye Contact Motor Behavior: Unremarkable Speech: Incoherent and Slurred (present at baseline, h/o TD affecting tongue, improved since initial presentation) Mood: Calm Affect: Happy Thought Process: Intact Thought Content: Intact and Tangential (baseline) Hallucinations: None Insight: Poor (improved) Judgement: Poor (improved) Vital Signs (Past 24 Hours) Last Vital Signs Temp 36.9 C 01/07/24 06:58 Pulse 86 01/07/24 06:58 Resp 16 01/07/24 06:58 BP 153/72 H 01/07/24 06:58 Pulse Ox 92 01/07/24 06:58 O2 Del Method Room Air 01/07/24 11:31 Results & Data ([facility]) Laboratory Results Laboratory Results - last 24 hr 01/07/24 07:53 WBC 5.62 RBC 3.47 L Hgb 10.1 L Hct 32.4 L MCV 93.4 MCH 29.1 MCHC 31.2 L RDW Std Deviation 51.0 H RDW Coeff of Rachel 14.9 H Plt Count 314 MPV 10.4 Sodium 141 Potassium 4.7 Chloride 111 H Carbon Dioxide 23 Anion Gap 7 BUN 44 H Creatinine 2.28 H Est Cr Clr Drug Dosing 18.6 Est GFR ( Amer) 24.2 Est GFR (Non-Af Amer) 20.9 BUN/Creatinine Ratio 19.3 Glucose 119 H Calcium 8.8 Current Inpatient Medications Current Inpatient Medications: Current Inpatient Medications Acetaminophen (Acetaminophen 325 Mg Tab) 650 mg PO QID PRN PRN Reason: Fever Or Pain Stop: 01/28/24 00:40 Last Admin: 01/06/24 20:36 Dose: 650 mg Amlodipine Besylate (Amlodipine Besylate 5 Mg Tab) 5 mg PO QAM [facility] Stop: 02/02/24 08:59 Last Admin: 01/07/24 08:10 Dose: 5 mg Bisacodyl (Bisacodyl 10 Mg Supp) 10 mg [place] DAILY PRN PRN Reason: Constipation Stop: 01/28/24 00:40 Cariprazine (Cariprazine Hcl 3 Mg Cap) 3 mg PO BIDM [facility] Stop: 01/28/24 07:59 Last Admin: 01/07/24 08:12 Dose: 3 mg Clotrimazole (Clotrimazole 1% Cr 15 Gm Tube) 1 appln EXT BID PRN PRN Reason: Rash Stop: 02/02/24 19:39 Diclofenac Sodium (Diclofenac Sod 1% Gel 100 Gm Tube) 2 gm EXT QID [facility]; Protocol Stop: 01/28/24 08:59 Last Admin: 01/07/24 13:21 Dose: Not Given Diclofenac Sodium (Diclofenac Sod 1% Gel 100 Gm Tube) 4 gm EXT QID [facility]; Protocol Stop: 01/28/24 08:59 Last Admin: 01/07/24 13:21 Dose: Not Given Haloperidol Lactate (Haloperidol Lactate 5 Mg/Ml 1 Ml Vial) 1 mg IM Q4H PRN PRN Reason: Agitation Stop: 01/28/24 00:07 Last Admin: 01/04/24 00:55 Dose: 1 mg Lamotrigine (Lamotrigine 100 Mg Tab) 150 mg PO BIDM [facility] Stop: 01/28/24 07:59 Last Admin: 01/07/24 08:10 Dose: 150 mg [place] Carbonate ([place] Carbonate Slow Rel 300 Mg Tab) 300 mg PO DAILY [facility] Stop: 01/31/24 09:29 Last Admin: 01/07/24 08:12 Dose: 300 mg Lorazepam (Lorazepam 1 Mg Tab) 1 mg PO TID PRN PRN Reason: Agitation Stop: 02/02/24 09:45 Last Admin: 01/05/24 02:26 Dose: 1 mg Lorazepam (Lorazepam 1 Mg Tab) 1 mg PO HS [facility] Stop: 02/02/24 20:59 Last Admin: 01/06/24 20:37 Dose: 1 mg Magnesium Hydroxide (Magnesium Hydroxide Susp 30 Ml Udc) 30 ml PO DAILY [facility] Stop: 01/28/24 08:59 Last Admin: 01/07/24 08:24 Dose: Not Given Melatonin (Melatonin 3 Mg Tab) 3 mg PO HS PRN PRN Reason: Sleep Stop: 02/03/24 22:10 Last Admin: 01/04/24 22:42 Dose: 3 mg Olanzapine (Olanzapine 5 Mg Tablet) 5 mg PO QAM [facility] Stop: 01/28/24 08:59 Last Admin: 01/07/24 08:10 Dose: 5 mg Olanzapine (Olanzapine 20 Mg Tablet) 20 mg PO QDD [facility] Stop: 01/28/24 16:29 Last Admin: 01/06/24 16:08 Dose: 20 mg
[2024-01-08] MEDS: LABETALOL HCL 100 MG TAB PO ONE (00:07)
[2024-01-08] MEDS: ONDANSETRON INJ 2 MG/ML 2 ML VIAL IV PRN (06:19)
--- NOTE | 2024-01-08 06:56 | Hospitalist Progress Note ---
Date of Service January 08, 2024 Assessment & Plan (1) Schizoaffective disorder, bipolar type: Plan: Following recommendations per psychiatry consultation: Plan - 01/04/24: 303 hearing successful, patient given 20 more days of psychiatric hold - patient is now medically stable for discharge to [facility] on 01/09/24 - cannot leave AMA; geriatric psychiatry bed search pending - Continue 1-on-1 observation until 303 lifted -Continue [place] to 300mg daily - [place] level drawn 01/06/24 - 0.5 -Continue Carpiprazine 3mg BID -Continue Olanzapine 5mg QAM, 20mg QDD -Continue Lamotrigine 150mg BIDPM -Hold Depakote PRNs: - Haldol 1mg IV q 4 hours as needed for agitation - Ativan PO prn, scheduled Ativan PO QHS for sleep Patient approved to return to [facility], has bed placement for Tuesday01/09/24, partner able and willing to drive pt there upon discharge. (2) CKD (chronic kidney disease): Plan: Stage IV CKD 01/08/24: creatinine 2.28, baseline per Nephrology visits 2.4 - continue PO hydration, IV fluids discontinued after hypernatremia resolution (141) - nephrology agrees patient is stable from a medical perspective - patient is now medically stable for discharge to [facility] on 01/09/24 (3) Hypernatremia: Plan: - peak Na level 151, has resolved and now normal since 01/02/24 - nephrology signed off as patient is in stable medical condition (4) Hypertension: Plan: - BPs have been largely permissive - continue amlodipine 5mg qAM (5) Hyperchloremia: Plan: - mildly elevated at 111, continue PO hydration and meals (6) Right hand fracture: Plan: - Patient with proximal second metacarpal fracture noted of the right hand. Splint was placed in ER - Per ortho surgery not recommended, but Cock-up splint or no splint recommended prior to transition to [facility] (7) Elevated troponin: Plan: Resolved, previously likely in the setting of demand ischemia due to volume- contracted state - No ischemic changes present on EKG - was 28.5 on 12/27 -> 28.1 on 12/29/23 (8) Rhabdomyolysis: Plan: resolved, patient with elevation of RP=719 on admission, reduced to 495 on 12/29/23 Admission and Anticipated Discharge Date Admission Date: December 28, 2023 Supervising Physician Co-Signing Physician Notes I personally examined the patient and verified mann points of history and exam, discussed case, and agree with decision making and plan documented by Dr. Davenport. Patient pleasant and conversant on exam today with at bedside. Patient remains on a 303 involuntary commitment. Following examination today, psychiatry believes the patient is back to bedside and recommends patient return to her home facility instead of pursuing [facility] bed. Anticipate discharge home tomorrow as transportation arranged to return patient to [facility]. Subjective Patient was seen and examined at bedside this morning, asked "how are you?" spontaneously. Patient did have one emesis last night for which she was given zofran, patient endorses feeling "better" this morning. Having good eye contact, smiling appropriately throughout encounter. Asked pt by writing "are you in any pain?" to which pt responded "it depends on what I'm doing" while raising her R arm, showing her brace for her hand fracture. Asked what patient had for breakfast, to which she responded "I ate sausage, boost, and orange juice" which was accurate per 1:1 RN. was also present and endorsed that patient is around baseline mentation. Review of Systems Review of Systems: constitutional: no fever HEENT: denies headache Cardio: denies chest pain Pulm: denies shortness of breath GI: denies abdominal pain Physical Exam Physical Exam: constitutional: alert, not in acute distress HEENT: EOM intact, anicteric sclerae cardio: RRR, no murmurs on auscultation pulmonary: clear to auscultation b/l GI: normal bowel sounds, soft, nontender to palpation neuro/MSK: moving all extremities spontaneously, 5/5 strength throughout Results & Data Results & Data Vital Signs (Past 12 Hours) Vital Signs Temp Pulse Resp BP Pulse Ox O2 Del Method 01/08/24 05:50 37.0 C 87 20 161/71 H 96 Room Air 01/08/24 03:15 155/65 H 01/07/24 21:32 36.9 C 97 H 20 173/78 H 96 Room Air Resident Activity Tracking Resident Involvement: Resident Care Provided Care Provided: Adult Hospital Medicine (2) CKD (chronic kidney disease) Chronic kidney disease stage: stage 4 (severe) Qualified Code(s): N18.4 - Chronic kidney disease, stage 4 (severe) (6) Right hand fracture Encounter type: initial encounter Fracture type: closed Qualified Code(s): S62.91XA - Unspecified fracture of right wrist and hand, initial encounter for closed fracture (8) Rhabdomyolysis Encounter type: initial encounter Rhabdomyolysis type: traumatic Qualified Code(s): T79.6XXA - Traumatic ischemia of muscle, initial encounter
--- NOTE | 2024-01-08 14:09 | Psychiatric Progress Note ---
Date of Service January 08, 2024 Impression / Recommendations Impression 73-year-old woman with history of schizoaffective disorder, bipolar type who presents with recent agitation and aggressive behavior in her half-way ([facility]). She has been restless and presented self-harm behaviors including banging head and limbs against wall. She has elevated creatinine with progressive renal dysfunction due to long-term lithium use. Psychiatry consulted for evaluation and management. Now 303 commitment. Diagnostically consistent with schizoaffective disorder current episode of acute stefan. Given symptoms of stefan and poor efficacy of prior and recent alternative mood stabilizers and already on two antipsychotic medications it is felt that risk of further renal impairment is outweighed by benefit of lithium titration for mood stabilization given significant negative impacts from current manic episode including self-harming and disorganized behaviors to the point of sustaining a metacarpal fracture. A: After evaluation and collateral from partner it appears she is back to baseline and would benefit from return to her home facility. Does not need [facility] bed at this time. She can continue her current regimen including daily lithium 300mg. Her care will be overseen by a psychiatrist at the facility. The patient remains hospitalized on a completed 303 involuntary commitment. This patient must remain on safety precautions with a 1-on-1 and is unable to leave the hospital AMA. Overall, I spent a total of 30 minutes with this case including review of chart records, nursing report, review of lab work, direct evaluation of the patient at bedside, discussion with the psychiatric liaison during clinical rounds, discussion with hospitalist and documentation in the electronic health record. (1) Schizoaffective disorder, bipolar type: Plan -Return back to home facility once medically cleared -303 commitment, cannot leave AMA -Continue 1-on-1 -Continue with [place] 300mg daily -Continue Carpiprazine 3mg BID -Continue Olanzapine 5mg QAM, 20mg QDD -Continue Lamotrigine 150mg BIDPM -Discontinued Depakote -Ativan 1mg HS and ativan 1mg TID po prn for agitation. -For behavioral emergency: olanzapine 2.5 mg IM x 1 (DO NOT exceed 10mg via IM sources per 24 hours, check EKG if IM dose required, NEVER co-administer with IM or IV benzodiazepines). Interval History Identifying Information 73-year-old woman with history of schizoaffective disorder, bipolar type who pre sents with recent agitation and aggressive behavior in her half-way ([facility]). She has been restless and presented self-harm behaviors including banging head and limbs against wall. She has elevated creatinine with progressive renal dysfunction due to long-term lithium use. Psychiatry consulted for evaluation and management. Now 303 commitment. Chief Complaint "Doing good" Subjective Subjective Patient was seen with partner at bedside. Patient reports doing well and is cheerful on interview. She reports no concerns and asked about medication changes. Reassured her that she is doing well on a decreased dose of lorazepam. Collateral from partner reveals she is back to baseline and is functioning well. sleeping well and has a good appetite. Physical Exam Mental Examination Appearance: Disheveled Eye Contact: Maintains Eye Contact Motor Behavior: Unremarkable Speech: Incoherent and Slurred (present at baseline, h/o TD affecting tongue, improved since initial presentation) Mood: Calm Affect: Happy Thought Process: Intact Thought Content: Intact and Tangential (baseline) Hallucinations: None Insight: Poor (improved) Judgement: Poor (improved) Vital Signs (Past 24 Hours) Last Vital Signs Temp 37.0 C 01/08/24 06:57 Pulse 87 01/08/24 06:57 Resp 15 01/08/24 06:57 BP 120/66 01/08/24 06:57 Pulse Ox 94 01/08/24 06:57 O2 Del Method Room Air 01/08/24 06:57 Results & Data ([facility]) Current Inpatient Medications Current Inpatient Medications: Current Inpatient Medications Acetaminophen (Acetaminophen 325 Mg Tab) 650 mg PO QID PRN PRN Reason: Fever Or Pain Stop: 01/28/24 00:40 Last Admin: 01/06/24 20:36 Dose: 650 mg Amlodipine Besylate (Amlodipine Besylate 5 Mg Tab) 5 mg PO QAM [facility] Stop: 02/02/24 08:59 Last Admin: 01/08/24 08:22 Dose: 5 mg Bisacodyl (Bisacodyl 10 Mg Supp) 10 mg [place] DAILY PRN PRN Reason: Constipation Stop: 01/28/24 00:40 Cariprazine (Cariprazine Hcl 3 Mg Cap) 3 mg PO BIDM [facility] Stop: 01/28/24 07:59 Last Admin: 01/08/24 08:21 Dose: 3 mg Clotrimazole (Clotrimazole 1% Cr 15 Gm Tube) 1 appln EXT BID PRN PRN Reason: Rash Stop: 02/02/24 19:39 Diclofenac Sodium (Diclofenac Sod 1% Gel 100 Gm Tube) 2 gm EXT QID [facility]; Protocol Stop: 01/28/24 08:59 Last Admin: 01/08/24 12:29 Dose: 2 gm Diclofenac Sodium (Diclofenac Sod 1% Gel 100 Gm Tube) 4 gm EXT QID [facility]; Protocol Stop: 01/28/24 08:59 Last Admin: 01/08/24 12:29 Dose: 4 gm Haloperidol Lactate (Haloperidol Lactate 5 Mg/Ml 1 Ml Vial) 1 mg IM Q4H PRN PRN Reason: Agitation Stop: 01/28/24 00:07 Last Admin: 01/04/24 00:55 Dose: 1 mg Lamotrigine (Lamotrigine 100 Mg Tab) 150 mg PO BIDM [facility] Stop: 01/28/24 07:59 Last Admin: 01/08/24 08:22 Dose: 150 mg [place] Carbonate ([place] Carbonate Slow Rel 300 Mg Tab) 300 mg PO DAILY [facility] Stop: 01/31/24 09:29 Last Admin: 01/08/24 08:21 Dose: 300 mg Lorazepam (Lorazepam 1 Mg Tab) 1 mg PO TID PRN PRN Reason: Agitation Stop: 02/02/24 09:45 Last Admin: 01/07/24 16:38 Dose: 1 mg Lorazepam (Lorazepam 1 Mg Tab) 1 mg PO HS [facility] Stop: 02/02/24 20:59 Last Admin: 01/08/24 00:07 Dose: 1 mg Magnesium Hydroxide (Magnesium Hydroxide Susp 30 Ml Udc) 30 ml PO DAILY [facility] Stop: 01/28/24 08:59 Last Admin: 01/08/24 08:55 Dose: 30 ml Melatonin (Melatonin 3 Mg Tab) 3 mg PO HS PRN PRN Reason: Sleep Stop: 02/03/24 22:10 Last Admin: 01/04/24 22:42 Dose: 3 mg Olanzapine (Olanzapine 5 Mg Tablet) 5 mg PO QAM [facility] Stop: 01/28/24 08:59 Last Admin: 01/08/24 08:24 Dose: 5 mg Olanzapine (Olanzapine 20 Mg Tablet) 20 mg PO QDD [facility] Stop: 01/28/24 16:29 Last Admin: 01/07/24 16:31 Dose: 20 mg Ondansetron HCl (Ondansetron Inj 2 Mg/Ml 2 Ml Vial) 4 mg IV Q6H PRN PRN Reason: Nausea And Vomiting Stop: 02/07/24 05:54 Last Admin: 01/08/24 06:19 Dose: 4 mg
[2024-01-08 20:19] VITALS: RESP 18
--- NOTE | 2024-01-09 06:59 | Discharge Summary ---
"Date of Service January 09, 2024 Admission HPI Per Admitting Provider Brenda Medley is a 73yo female resident at [facility] presenting with several days of manic and aggressive behavior. She has been hitting [place] with her arms and legs and hitting her head against the rebol[place]o as well. This has been ongoing x 4 days. Patient is somnolent in the ER after receiving Ativan and is unable to provide details of events prior to arrival. Per ER staff - patient agitated intermittently. Has been given IV Haldol with good result. ER Course: Haldol 1mg IV x 1 NSS x 500mL Admission Exam Per Admitting Provider H&P Physical Exam, 12/28/23: General: patient somnolent after receiving Haldol, withdraws from pain Skin: scattered bruising on arms and legs, bruising on abdomen as well HEENT: NC/AT, PERRL, anicteric sclera, conjunctiva without injection, external ear normal to inspection and nontender, nares patent, dry lips membranes, neck supple, trachea midline, no LAD, no thyromegaly, no JVD Heart: +S1/S2, regular, no m/r/g Lungs: equal air entry bilaterally, no rales/rhonchi/wheezes Abd: +BS, soft, mildly distended, patient groans with abdominal palpation, no organomegaly or ascites Ext: warm, 2+ pulses in UE/LE bilaterally, no clubbing/cyanosis or edema, RUE in splint Neuro: somnolent, moving all extremities Principal Diagnosis schizoaffective disorder, bipolar type Discharge Exam constitutional: alert, not in acute distress HEENT: EOM intact, vision intact, anicteric sclerae, protruding tongue interfering with speaking but pt is intelligible about 50% of the time cardio: RRR, no murmurs on auscultation pulmonary: clear to auscultation b/l GI: normal bowel sounds, soft, nontender to palpation neuro/MSK: moving all extremities spontaneously, 5/5 strength throughout psychiatric: euthymic, affect congruent to mood Discharge Data Allergies Allergy/AdvReac Type Severity Reaction Status Date / Time clozapine Allergy Severe TOXIC Verified 12/28/23 22:25 REACTION lurasidone Allergy Severe TOXIC Verified 12/28/23 22:25 REACTION aspirin Allergy Unknown UNKNOWN Verified 12/28/23 22:25 REACTION ibuprofen Allergy Unknown UNKNOWN Verified 12/28/23 22:25 REACTION latex Allergy Unknown UNKNOWN Verified 12/28/23 22:25 Penicillins Allergy Unknown UNKNOWN Verified 12/28/23 22:25 REACTION Sulfa (Sulfonamide Allergy Unknown UNKNOWN Verified 12/28/23 22:25 Antibiotics) REACTION Consultations 12/29/23 00:41 Consult Psychiatry Routine 01/03/24 16:14 Consult Nephrology Routine Ordered Studies 12/28/23 20:11 CT head/brain wo con Stat Hospital Course (1) Schizoaffective disorder, bipolar type: Followed recommendations per psychiatry consultation: 12/28/23: - patient agitated and with aggressive behavior at [facility], hitting head against [place], fractured a R metacarpal due to behavior - lithium level subtherapeutic at 0.3 (therapeutic range 0.6-1.2) - remained subtherapeutic at 0.4 over the next 2 days when tested - 302 petition filed for involuntary psychiatric hold 12/30/23: - 302 petition approved - patient to continue on 300mg lithium for stabilization - 01/04/24: 303 hearing successful, patient given 20 more days of psychiatric hold - patient is now medically stable for discharge to [facility] on 01/09/24 - cannot leave AMA; geriatric psychiatry bed search pending - Continue 1-on-1 observation until 303 lifted 01/06/24: - [place] level minimally below therapeutic range - 0.5 Home medications given throughout course: -Continue Carpiprazine 3mg BID -Continue Olanzapine 5mg QAM, 20mg QDD -Continue Lamotrigine 150mg BIDPM - Depakote has been held PRNs: - Haldol 1mg IV q 4 hours as needed for agitation - Ativan PO prn, scheduled Ativan PO QHS for sleep Patient approved to return to [facility], has bed placement for Tuesday01/09/24, transported in late morning. 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 Mccullough) 01/04/24: - creatinine 2.23, below pt's baseline of 2.4 - sodium resolving, 136 01/06/24: nephrology (Dr. Hays) has signed off due to below-baseline kidney function - patient to follow up outpatient with Dr. Rich as currently scheduled 01/08/24: creatinine 2.28, baseline per Nephrology visits 2.4 - continue PO hydration, IV fluids discontinued after hypernatremia resolution (141) - nephrology agrees patient is stable from a medical perspective - patient is now medically stable for discharge to [facility] 01/09/24: pt discharged back to [facility] with transportation (3) Hypernatremia: - peak Na level 151 on 12/31/23, has resolved and now within normal limits since 01/02/24 - 01/06/24: nephrology signed off as patient is in stable medical condition - see above assessment for CKD (4) Hypertension: - BPs have been largely permissive: mostly 130s-160s systolic over was started on 5mg amlodipine daily on 01/03/24, discontinued on 01/09/24 (5) Hyperchloremia: 12/31/23: highest value at 117 - decreased throughout rest of stay at times elevated to 111 on 01/07/24, PO hydration and meals continued as nephrology has signed off (6) Right hand fracture: - Patient with proximal second metacarpal fracture noted of the right hand. Splint was placed in ER - Per ortho surgery not recommended, but Cock-up splint or no splint recommended prior to transition to [facility] (7) Elevated troponin: Resolved, previously likely in the setting of demand ischemia due to volume- contracted state - No ischemic changes present on EKG - was 28.5 on 12/27 -> 28.1 on 12/29/23 (8) Rhabdomyolysis: resolved, patient with elevation of QF=864 on admission, reduced to 495 on 12/29/23 Total Time Total Time Spent Total Time Spent (In Minutes): <30 Discharge Plan Discharge Items Patient Disposition: Transfer Group Home Fac Reason For Visit: RHABDOMYOLYLSIS, SYLVAIN, BIPOLAR Discharge Diagnosis: rhabdo, SYLVAIN Condition on Discharge: Fair Activity: Per Instructions section Non-emergency contact: Primary Care Provider and Sample Taker Operator Call non-emergency contact if: you have any medication questions and your symptoms worsen Follow-up/Referrals: [facility] [Primary Care Provider] - Diet: Regular Diet Texture: Easy to Chew Addtl Attending Provider Instructions: Brenda, you were admitted to the hospital and monitored for behavioral changes and found to have abnormal electrolytes. Fortunately we have made some changes to your medications which have improved your clinical status so you are able to return to [facility]. I have included the following information for your doctor at [facility] to resume your medical management. Schizoaffective disorder, bipolar type - Continue with [place] 300mg daily ([place] level 0.5 on 01/06/24, dosing frequency increased to daily) - Continue Carpiprazine 3mg BID - Continue Olanzapine 5mg QAM, 20mg QDD - Continue Lamotrigine 150mg BIDPM - Discontinued Depakote - Ativan 1mg HS and Ativan 1mg TID po prn for agitation. CKD (chronic kidney disease), Stage IV | Hypernatremia - Cr 2.28 at discharge, has returned to baseline - Increased [place] to daily dosing, initially had hypernatremia/significant increase in PO fluid intake - Assessed by nephrology, sodium levels normalized and remained stable s/p discontinuation of IVF - Recommend repeat metabolic panel in 1 week to ensure stability of sodium and creatinine levels Hypertension - Started amlodipine 5mg qAM during hospitalization Right hand fracture - Patient with proximal second metacarpal fracture noted of the right hand. - Per ortho, surgery not recommended but continue cock-up splint Elevated troponin- Resolved - Resolved, previously likely in the setting of demand ischemia due to volume- contracted state. No ischemic changes present on EKG Rhabdomyolysis- Resolved - Resolved, patient with mild elevation on admission, since resolved. Pending Studies at Discharge: No Stand-Alone Forms: My [facility] [employer] Skilled Items Patient informed of condition?: Yes DNR: No Discharge Level of Care: Skilled Communicable Disease: No Discharge Prognosis: Stable Lines: None Urinary Catheter: No Medications and DC Order Prescriptions: New lithium carbonate 300 mg Tablet Extended Release 300 mg PO DAILY 30 Days Qty: 30 0RF amlodipine [Norvasc] 5 mg Tablet 5 mg PO QAM 30 Days Qty: 30 0RF lorazepam 1 mg Tablet 1 mg PO TID PRNQty: 0 0RF lorazepam 1 mg Tablet 1 mg PO HS Qty: 0 0RF Continued multivitamin [Multiple Vitamins] Tablet 1 tab PO QAM Qty: 0 (DME) blood-glucose meter [OneTouch Ultra2 Meter] Misc See Rx Instructions .MEDSUPPLY Qty: 1 0RF Rx Instructions: Use to test blood glucose once daily; DX CODE- E11.9 (DME) OneTouch Ultra Blue Test Strip Strip See Rx Instructions .MEDSUPPLY Qty: 100 1RF Rx Instructions: Test blood glucose once daily; DX CODE- E11.9 (DME) lancets [OneTouch Delica Plus Lancet] 30 gauge misc See Rx Instructions .MEDSUPPLY Qty: 100 5RF Rx Instructions: Test blood glucose once daily; DX CODE- E11.9 (DME) Select Briefs Misc See Rx Instructions .Route Qty: 120 5RF Rx Instructions: As directed-patient needs Size Small atorvastatin 10 mg tablet 10 mg PO HS Qty: 90 1RF omeprazole 20 mg capsule,delayed release(DR/EC) 20 mg PO QAM Qty: 90 1RF (DME) blood sugar diagnostic Strip See Rx Instructions .ROUTE .MEDSUPPLY Qty: 400 1RF Rx Instructions: Test 2 times per day; Dx code- E11.9 (DME) blood-glucose meter [OneTouch Ultra2 Meter] Misc See Rx Instructions .ROUTE .MEDSUPPLY Qty: 1 0RF Rx Instructions: TEST TWICE DAILY, DX CODE-E11.9 tramadol 50 mg tablet 100 mg PO TIDM ondansetron 4 mg tablet,disintegrating 4 mg PO Q6 PRN (Reason: Nausea And Vomiting) cholecalciferol (vitamin D3) [Vitamin D3] 25 mcg (1,000 unit) Tablet 25 mcg PO QAM Januvia 25 mg tablet 25 mg PO QAM diclofenac sodium [Voltaren Arthritis Pain] 1 % Gel 4 g EXT QID Qty: 100 0RF Rx Instructions: APPLY 4GRAMS TO RIGHT HIP magnesium hydroxide [Milk of Magnesia] 400 mg/5 mL Suspension 30 ml PO DAILY Rx Instructions: HOLD FOR DIARRHEA bisacodyl [Dulcolax (bisacodyl)] 10 mg Suppository 10 mg GA DAILY PRN (Reason: Constipation) Fleet Enema 19-7 gram/118 mL Enema 118 ml GA DAILY PRN (Reason: Constipation) mineral oil-isopropyl myristat Lotion 1 applic TOPICAL BID Rx Instructions: APPLY TO BLE cyanocobalamin (vitamin B-12) 1,000 mcg tablet 1,000 mcg PO QAM diclofenac sodium 1 % gel 1 ea TOPICAL QID Rx Instructions: APPLY 2GRAMS TO RIGHT SHOULDER FOUR TIMES DAILY. lamotrigine 150 mg tablet 150 mg PO BIDM montelukast 10 mg tablet 10 mg PO HS olanzapine 20 mg tablet 20 mg PO QDD acetaminophen [Tylenol] 325 mg Tablet 650 mg PO QID MDD 3G PRN (Reason: Fever Or Pain) Rx Instructions: GIVE FOR TEMP >100, AND FOR PAIN # 1=10 Vraylar 3 mg Capsule 3 mg PO BIDM olanzapine [Zyprexa] 5 mg Tablet 5 mg PO QAM Anbesol (benzocaine) Max Str 20 % Gel 1 applic MUCOUS MEMBRANE Q6H PRN (Reason: Mouth Pain) Rx Instructions: APPLY TO GUMS Discontinued lithium carbonate 300 mg tablet extended release 300 mg PO 3XWK Rx Instructions: TUESDAY/TUESDAY/TUESDAY lorazepam 1 mg Tablet 1 mg PO DIRECTED PRN (Reason: TORSTEN/AGITATION) divalproex [Depakote] 250 mg Tablet,Delayed Release (Dr/Ec) 250 mg PO BIDM Rx Instructions: ON HOLD 12/28/23--01/01/24 lorazepam 1 mg tablet 1 mg PO Q6H Rx Instructions: 0001, 0600, 1200, & 1800 Discharge Orders: Discharge Order (Routine); Ordered 01/09/24 Ordered By: Paulina Desouza/Other Patient Handouts: Antipsychotic Meds Caregiver Admission Data Admit Date/Time: 12/28/23 23:06 Attending Provider: Chris Washington Admit Provider: Alejandrina Akbar Primary Care Provider: [facility] Other Providers: Salome Mccullough; Mikal Zapata; Mac Dhillon Jr; Antonina Redding; Gloria Perez; Reinaldo Cruz; Yasir Rich Other Interventions: Discharge Summary Assessment (RN) Last Done: 01/09/24 10:43 Supervising Physician Co-Signing Physician Notes I personally examined the patient and verified all mann points of history and exam, discussed case, and agree with decision making with Dr Davenport No new issues. Stable for return to Center care. Vitals noted, in general she is awake and alert laying on her side appears to be in no distress. Breathing unlabored no accessory muscle use good effort. Skin without rashes pallor or icterus. Splint on right wrist. Bipolar/schizoaffectivenow stable for return to SNF. Appreciate psychiatry assistance. Continue current medications hypernatremiaacutely largely from poor p.o. intake, chronically probably does have a degree of DIbut given that this is quite manageable whenever her p.o. intake is good, and given that the lithium seems to be helping her psychiatric conditionscontinue. Follow periodic basic metabolic panel at [facility] wrist fracturesplintoutpatient follow-up. Otherwise as above Resident Activity Tracking Resident Involvement: Resident Care Provided Care Provided: Adult Hospital Medicine"
[2024-01-09 07:51] VITALS: PULSE 88; TEMP 98.6; O2SAT 97
[2024-01-09 10:59] VITALS: BP 132/65
--- NOTE | 2024-01-09 18:13 | Billing Data ---
Date of Service January 09, 2024 Coding Level of Care Code 03968 IN/OBS DISCH 30 MIN/LESS
== END 2024-01-09 11:15 | DRG 885 ==
LOC: ED 19:44 → SUATTDRO 23:06 → EDINP 23:06 → 3W 12-30 00:40

== ENCOUNTER 2024-03-05 15:55 | Inpatient (IN) ==
[2024-03-05 17:06] LABS: Hemoglobin 10.7 g/dl (12.0-16.0); Immature Granulocytes # (auto) 0.04 K/uL (0.01-0.20); Immature Granulocytes % (auto) 0.5 %; Lymphocytes # (auto) 0.86 K/uL (1.20-3.40); Lymphocytes % (auto) 11.6 %; Mean Corpuscular Hgb Conc 31.5 g/dL (32.0-36.0); Mean Corpuscular Volume 95.2 fL (80.0-100.0); Mean Platelet Volume 10.4 fL (9.4-12.4); Monocytes # (auto) 0.73 K/uL (0.11-0.59); Monocytes % (auto) 9.9 %; Neutrophils # (auto) 5.76 K/uL (1.40-6.50); Platelet Count 378 K/uL (130-400); RDW Coefficient of Variation 15.2 % (11.5-14.5); RDW Standard Deviation 53.4 fL (36.4-46.3); Red Blood Count 3.57 M/uL (4.20-5.40); White Blood Count 7.39 K/ul (4.8-10.8)
[2024-03-05 17:08] LABS: iSTAT Creatinine 4.8 mg/dl (0.6-1.3); iSTAT Hemoglobin 10.5 g/dl (12.0-16.0); iSTAT Ionized Calcium 1.03 mmol/l (1.12-1.32); iSTAT Potassium 4.8 mmol/L (3.3-5.0)
--- NOTE | 2024-03-05 17:08 | Emergency Department Note ---
Impression & Plan Acute kidney injury superimposed on chronic kidney disease, Hypermagnesemia, Acute urinary retention ED Provider Note HISTORY OF PRESENT ILLNESS: Patient is a 73-year-old female presenting with abnormal labs. Patient is unable provide any meaningful history, she reportedly is deaf and EKG shows NSR with normal intervals, normal QRS complexes, no ST elevation or depression, and no arrhythmias. Intermittently communicates with whiteboard. Attempted to write with the patient but she did not want to provide any history and stated we should call her shelter. Called and spoke with nurse at patient's shelter [facility]. Report that patient had abnormal lab work today. Patient reads lips and communicates via white room. Routine labs today. Not on dialysis. Reports patient has been her normal self, no vomiting or fevers. No lethargy complaints. Patient was evaluated by physician at facility, and patient reportedly "Would not wake for exam" and doctor thought "patient was off a little bit." Reports that when labs came back, patient was alert and acting her normal self. ROS: as above PHYSICAL EXAM: Constitutional: Patient appears in no acute distress. HENT: Head: Normocephalic and atraumatic. Eyes: EOMI, PERRL Mouth/Throat: Mucous membranes moist. Neck: Trachea midline. Neck supple. Cardiovascular: Bradycardic with normal rhythm. No murmurs, rubs or gallops. Intact distal pulses. Pulmonary/Chest: No respiratory distress. Breath sounds clear and equal bilaterally. No wheezes or rales. Abdominal: Abdomen soft, no tenderness, rebound or guarding. Musculoskeletal: No edema, tenderness or deformity noted. Skin: Warm and dry. No rash, erythema, pallor or cyanosis Neurological: Alert. CN II-XII grossly intact, moving all extremities equally and fully. MDM: - Vitals signs showed hypertension and bradycardia. - History obtained via patient's shelter, given her difficulties communicating. History as above. - Chronic conditions affecting care: DM-2; CKD stage 3; hyperparathyroidism; hypercholesterolemia; GERD; CHF - Differential diagnoses include, but are not limited to: dehydration; electrolyte abnormality; urinary obstruction; UTI - Order placed for continuous cardiac monitoring. At this time, monitor showed rate of 45 bpm with normal sinus rhythm, per my interpretation. - External medical records reviewed. Discharge summary dated 01/09/2024 was reviewed. Patient was admitted for schizoaffective disorder and her manic and aggressive behavior. - EKG interpreted by myself showed normal sinus rhythm. Rate bradycardic at 44 bpm. QT 544. No acute ischemic changes. - Laboratory workup interpreted by myself showed normal WBC; chronic anemia (Hgb 10.7); normal PT/INR; hypermagnesemia (Mg 6.3); normal lactate; normal lipase; normal procalcitonin; elevated creatinine (Cr 4.25) - CT head wo contrast negative for acute pathology - CT abdomen/pelvis without IV contrast showed nonspecific lithiasis without inflammation or obstruction. Noted to have mildly distended urinary bladder. - Bladder scan showed patient had >500 cc in bladder. Ham catheter ordered. - Given 1L NS NS - Patient's SYLVAIN may be post-renal in setting of urinary retention. However, will need further workup on inpatient setting. - Discussion was had with counter caser about patient's case and need for admission - Hospitalist consulted for admission - Patient admitted to [facility] service for further evaluation and management. ASSESSMENT AND PLAN: Diagnosis: SYLVAIN on CKD; hypermagnesemia; acute urinary retention Plan: admit Past Med/Surg History Problem List (Updated 03/05/24 @ 19:09 by Rita Mckinnon MD) Acute urinary retention (Acute) Hypermagnesemia (Acute) Acute kidney injury superimposed on chronic kidney disease (Acute) Hematuria (Acute) Hyperchloremia Elevated BP without diagnosis of hypertension Schizoaffective disorder, bipolar type Hypernatremia CRF (chronic renal failure) (Acute) Acute dehydration (Acute) Rhabdomyolysis (Acute) Right hand fracture (Acute) Hypertension Renal cyst (Chronic) Chronic kidney disease, stage 4 (severe) (Chronic) Acute kidney injury Right hip pain Unable to care for self (Acute) Fall (Acute) CHI (closed head injury) (Acute) Dysuria Ankle pain, right Back pain (Acute) Multiple falls (Acute) Generalized weakness (Acute) Behavior safety risk (Acute) Pharyngitis Colon cancer screening Encounter for pre-operative examination Bilateral ankle pain Knee pain, bilateral Spondylolisthesis at L5-S1 level Urinary incontinence Diabetes mellitus type 2, controlled (Acute 02/09/13) Benign essential hypertension (Acute) Schizoaffective disorder (Acute) Stage III chronic kidney disease (Acute) Vitamin D deficiency (Acute) SNHL (sensorineural hearing loss) (Acute) Polyarthritis (Acute) Multinodular thyroid (Acute) Mobility impaired (Acute) Low TSH level (Acute) Morrison use (Acute) Hyperparathyroidism (Acute) Hypercholesterolemia (Acute) High serum thyroglobulin (Acute) Hiatal hernia (Acute) Gastroesophageal reflux disease (Acute) Elevated alkaline phosphatase level (Acute) Edema (Acute) Eczema (Acute) Chronic lower back pain (Acute) Chronic diarrhea (Acute) COPD, mild (Acute) Bipolar I disorder, single manic episode (Acute) Asthma (Acute) Abnormal mammogram (Acute) Frequent falls (Acute) Anemia (Acute) Gait disturbance Schizoaffective disorder Deafness Chronic diastolic CHF (congestive heart failure) per record; fiance could not confirm. does not follow with environmental studies faculty member Depression (Acute) Medical History Elevated troponin Acute head trauma Anemia Psychosis UTI (urinary tract infection) Bipolar disorder Anemia History of COVID-19 EKG abnormalities Spondylolisthesis CKD (chronic kidney disease) Anxiety GERD (gastroesophageal reflux disease) Osteoporosis Osteoarthritis Asthma Bipolar disorder Hyperparathyroidism Type II diabetes mellitus Hyperlipemia Surgical History History of colonoscopy History of tooth extraction History of cataract surgery Status post breast lumpectomy History of tubal ligation Family History Father Myocardial infarction Brother Rheumatoid arthritis Other Cancer Diabetes Heart disease Hypertension Lung disease Denies family history of Colon cancer Ovarian cancer Prostate cancer Breast cancer Social History Smoking Status: Unknown if ever smoked Tobacco Type: Cigarettes Second Hand Exposure: No; Do You Dip or Chew Tobacco: No; Hx Alcohol Use: No Hx Substance Use: No Preferred Language: Tajik Communication Ability: Impaired Communication Ability Comment: per facility pt unable to sign consents, will need POA to sign Visual Impairment: Partially Limited Hearing Ability: Cook Helper Vegetable Required: No Beliefs That Will Affect Care: None marital status: Single Current Living Situation: [facility] Current Living Situation Comment: [facility] current occupational status: disabled Feels Safe at Home: Yes Childhood Exposure to Second-Hand Smoke: No Diet: regular Dental Care, Regularly: No Physical Activity Frequency: 5-6 Times per Week Seatbelt Use: always Sunscreen Use: No Assistive Devices: Wheelchair Allergies Allergies Allergy/AdvReac Type Severity Reaction Status Date / Time clozapine Allergy Severe TOXIC Verified 12/28/23 22:25 REACTION lurasidone Allergy Severe TOXIC Verified 12/28/23 22:25 REACTION aspirin Allergy Unknown UNKNOWN Verified 12/28/23 22:25 REACTION ibuprofen Allergy Unknown UNKNOWN Verified 12/28/23 22:25 REACTION latex Allergy Unknown UNKNOWN Verified 12/28/23 22:25 Penicillins Allergy Unknown UNKNOWN Verified 12/28/23 22:25 REACTION Sulfa (Sulfonamide Allergy Unknown UNKNOWN Verified 12/28/23 22:25 Antibiotics) REACTION Home Meds Home Medications Medication Instructions Recorded Confirmed multivitamin (Multiple Vitamins 1 tab PO QAM ##0 11/17/17 12/28/23 tablet) cholecalciferol (vitamin D3) 25 25 mcg PO QAM 08/26/20 12/28/23 mcg (1,000 unit) tablet (Vitamin D3) sitagliptin phosphate 25 mg tablet 25 mg PO QAM 08/07/21 12/28/23 (Januvia) ondansetron 4 mg disintegrating 4 mg PO Q6 PRN Nausea And Vomiting 08/06/22 12/28/23 tablet tramadol 50 mg tablet 100 mg PO TIDM 08/06/22 12/28/23 acetaminophen 325 mg tablet 650 mg PO QID PRN Fever Or Pain 07/14/23 12/28/23 (Tylenol) benzocaine 20 % mucosal gel 1 applic mucous membrane Q6H PRN 07/14/23 12/28/23 (Anbesol (benzocaine) Maximum Mouth Pain Strength) cariprazine 3 mg capsule (Vraylar) 3 mg PO BIDM 07/14/23 12/28/23 cyanocobalamin (vitamin B-12) 1,000 mcg PO QAM 07/14/23 12/28/23 1,000 mcg tablet diclofenac sodium 1 % topical gel 1 ea topical QID 07/14/23 12/28/23 lamotrigine 150 mg tablet 150 mg PO BIDM 07/14/23 12/28/23 montelukast 10 mg tablet 10 mg PO HS 07/14/23 12/28/23 olanzapine 20 mg tablet 20 mg PO QDD 07/14/23 12/28/23 olanzapine 5 mg tablet (Zyprexa) 5 mg PO QAM 07/14/23 12/28/23 bisacodyl 10 mg rectal suppository 10 mg NH DAILY PRN Constipation 08/23/23 12/28/23 (Dulcolax (bisacodyl)) magnesium hydroxide 400 mg/5 mL 30 ml PO DAILY 08/23/23 12/28/23 oral suspension (Milk of Magnesia) sodium phosphates 19 gram-7 118 ml NH DAILY PRN Constipation 08/23/23 12/28/23 gram/118 mL enema (Fleet Enema) mineral oil-isopropyl myristat 1 applic topical BID 12/28/23 12/28/23 lotion Previous Rx's Medication Instructions Recorded blood sugar diagnostic (OneTouch #100 ea 08/25/20 Ultra Blue Test Strip) blood-glucose meter (OneTouch #1 ea 08/25/20 Ultra2 Meter) atorvastatin 10 mg tablet 10 mg PO HS #90 tabs 03/09/21 blood sugar diagnostic #400 ea 03/09/21 blood-glucose meter (OneTouch #1 ea 03/09/21 Ultra2 Meter) omeprazole 20 mg capsule,delayed 20 mg PO QAM #90 caps 03/09/21 release lancets 30 gauge (OneTouch Delica #100 ea 03/18/21 Plus Lancet) diaper,brief,adult,disposable #120 ea 08/07/21 (Select Briefs) diclofenac sodium 1 % topical gel 4 g EXT QID #100 grams 08/31/21 (Voltaren Arthritis Pain) lorazepam 1 mg tablet 1 mg PO HS #0 tabs 01/09/24 lorazepam 1 mg tablet 1 mg PO TID PRN #0 tabs 01/09/24 Results & Data (ED) Vital Signs Vital Signs - 24 hr 03/05/24 15:57 03/05/24 16:04 03/05/24 16:39 Temperature 36.9 C Temperature Source Axillary Pulse Rate 49 L 45 L Pulse Rate [Apical] Respiratory Rate 18 Respiratory Effort / Characteristics Respiratory Depth Normal Respiratory Pattern Blood Pressure 184/75 H Blood Pressure [Right Arm] Blood Pressure Mean 111 Blood Pressure Mean [Right Arm] Pulse Oximetry 92 95 Oxygen Delivery Method Room Air Room Air Sepsis Recent Fever Within 48 Hours No Sepsis New/Unexplained Change in Mental Status N/A Sepsis Action Taken by Nursing No Action Required 03/05/24 16:45 03/05/24 17:00 03/05/24 18:00 Temperature Temperature Source Pulse Rate Pulse Rate [Apical] 37 L 46 L 43 L Respiratory Rate 18 18 18 Respiratory Effort / Characteristics Non-Labored Spontaneous Non-Labored Spontaneous Non-Labored Spontaneous Respiratory Depth Normal Normal Normal Respiratory Pattern Regular Regular Regular Blood Pressure Blood Pressure [Right Arm] 163/67 H 136/70 169/58 H Blood Pressure Mean Blood Pressure Mean [Right Arm] 99 92 95 Pulse Oximetry 97 97 96 Oxygen Delivery Method Room Air Room Air Room Air Sepsis Recent Fever Within 48 Hours Sepsis New/Unexplained Change in Mental Status Sepsis Action Taken by Nursing 03/05/24 19:00 Temperature Temperature Source Pulse Rate Pulse Rate [Apical] 48 L Respiratory Rate 18 Respiratory Effort / Characteristics Non-Labored Spontaneous Respiratory Depth Normal Respiratory Pattern Regular Blood Pressure Blood Pressure [Right Arm] 156/79 H Blood Pressure Mean Blood Pressure Mean [Right Arm] 104 Pulse Oximetry 97 Oxygen Delivery Method Room Air Sepsis Recent Fever Within 48 Hours Sepsis New/Unexplained Change in Mental Status Sepsis Action Taken by Nursing Laboratory Data 03/05/24 16:45 03/05/24 16:45 Lab Results 03/05/24 03/05/24 03/05/24 Range/Units 16:45 16:53 17:14 WBC 7.39 (4.8-10.8) K/ul RBC 3.57 L (4.20-5.40) M/uL Hgb 10.7 L (12.0-16.0) g/dl POC Hgb 10.5 L (12.0-16.0) g/dl Hct 34.0 L (37.0-47.0) % POC Hct 31 L (37-47) % MCV 95.2 (80.0-100.0) fL MCH 30.0 (25.0-34.0) pg MCHC 31.5 L (32.0-36.0) g/dL RDW Std Deviation 53.4 H (36.4-46.3) fL RDW Coeff of Rachel 15.2 H (11.5-14.5) % Plt Count 378 (130-400) K/uL MPV 10.4 (9.4-12.4) fL Immature Gran % (Auto) 0.5 % Neut % (Auto) 78.0 % Lymph % (Auto) 11.6 % [place] % (Auto) 9.9 % Eos % (Auto) 0.0 % Baso % (Auto) 0.0 % Neut # (Auto) 5.76 (1.40-6.50) K/uL Lymph # (Auto) 0.86 L (1.20-3.40) K/uL [place] # (Auto) 0.73 H (0.11-0.59) K/uL Eos # (Auto) 0.00 (0.00-0.50) K/uL Baso # (Auto) 0.00 (0.00-0.20) K/uL Immature Gran # (Auto) 0.04 (0.01-0.20) K/uL PT 9.8 (9.0-12.0) Seconds INR 0.9 (0.9-1.1) POC Sodium 134 L (135-144) mmol/L Sodium 134 L (136-145) mmol/L POC Potassium 4.8 (3.3-5.0) mmol/L Potassium 4.9 (3.5-5.1) mmol/L POC Chloride 100 L (101-112) mmol/L Chloride 100 (98-107) mmol/L Carbon Dioxide 31 (21-32) mmol/L POC Total CO2 29 (24-31) mmol/L Anion Gap 3 (3-11) POC Anion Gap 10.0 L (16-25) mmol/L POC BUN 39 H (7-18) mg/dl BUN 39 H (6-23) mg/dl Creatinine 4.25 H (0.6-1.2) mg/dl POC Creatinine 4.8 H* (0.6-1.3) mg/dl Est Cr Clr Drug Dosing Not Reportable eGFR 10.61 BUN/Creatinine Ratio 9.2 L (10-20) Glucose 81 (70-99(Fasting)) mg/dl POC Glucose (other) 82 (70-99) mg/dl Lactate 0.8 (0.4-2.0) mmol/L Calcium 8.5 L (8.6-10.3) mg/dl POC Ioniz Calcium Itzel 1.03 L (1.12-1.32) mmol/l Magnesium 6.3 H* (1.7-2.4) mg/dl Total Bilirubin 0.3 (0.2-1.0) mg/dl AST 25 (13-39) U/L ALT 26 (7-52) U/L Alkaline Phosphatase 151 H (34-104) U/L Troponin I High Sens 13.8 (0-14) pg/ml Total Protein 7.0 (6.0-8.3) gm/dl Albumin 3.8 (3.4-5.0) gm/dl Globulin 3.2 (2.5-4.0) gm/dl Albumin/Globulin Ratio 1.2 (0.9-2) Lipase 56 (11-82) U/L Procalcitonin 0.16 (0-0.5) ng/ml Administered Medications Discontinued Medications Sodium Chloride (Nss) 1,000 mls @ 999 mls/hr IV .Q1H1M ONE Stop: 03/05/24 18:39 Last Admin: 03/05/24 18:44 Dose: 999 mls/hr Documented By: ROSA Imaging Data Radiologist's Impression: Head CT 03/05/24 17:03 EXAM: CT Head Without Intravenous Contrast INDICATION: Change in mental status. Abnormal renal function. TECHNIQUE: Axial computed tomography images of the head/brain without intravenous contrast. Sagittal and/or coronal reformats are provided. Sagittal and coronal reformatted images were created and reviewed. This CT exam was performed using one or more of the following dose reduction techniques: automated exposure control, adjustment of the mA and/or kV according to patient size, and/or use of iterative reconstruction technique. COMPARISON: 12/28/2023 FINDINGS: Limitations: None. Brain and extra-axial spaces: There is age appropriate cortical atrophy and chronic ischemic periventricular white matter hypodensity. No acute infarct, hemorrhage or mass noted. Bones/joints: No acute changes. Soft tissues: There is a very small midline frontal scalp contusion. Vasculature: Intracranial atherosclerotic changes noted. Sinuses: No layering fluid in the visualized portions of the paranasal sinuses. Mastoid air cells: No mastoid effusion. Orbits: No significant abnormality noted. IMPRESSION: 1. Cerebral atrophy. No acute changes in the brain. 2. There is a very small midline frontal scalp contusion. ACT 112: Negative or not required by law. Electronically signed by Dimple Garnett 03-05-2024 5:42 PM Abdomen/Pelvis CT 03/05/24 17:37 EXAM: CT Abdomen and Pelvis Without Intravenous Contrast INDICATION: Abnormal renal function. TECHNIQUE: Axial computed tomography images of the abdomen and pelvis without intravenous contrast. Sagittal and coronal reformatted images were created and reviewed. This CT exam was performed using one or more of the following dose reduction techniques: automated exposure control, adjustment of the mA and/or kV according to patient size, and/or use of iterative reconstruction technique. COMPARISON: 08/09/2023 FINDINGS: Limitations: None. Lung bases: Mild dependent atelectasis in both lung bases. Pleural space: No visualized pleural effusion or pneumothorax. Heart: Stable cardiomegaly and mitral and coronary calcification. No pericardial effusion. Mediastinum: No abnormality noted. ABDOMEN: Liver: Lack of intravenous contrast limits detection of some masses. No abnormality noted. Gallbladder and bile ducts: No calcified stones or surrounding fluid. Pancreas: No pancreatic mass, calcification, inflammation or ductal dilation noted. Spleen: No significant abnormality noted. Adrenals: Stable left adrenal thickening. Right appears normal. Kidneys and ureters: Incidental left renal duplication. Mild bilateral renal cortical scarring present. No stone or hydronephrosis. umbilical hernia containing fat. Bilateral renal cysts renal vascular calcification present. Stomach and bowel: Moderate amounts of diffuse colonic stool and prominent diffuse intestinal aeration. No obstruction. No inflammatory process. PELVIS: Appendix: No findings to suggest acute appendicitis. Bladder: The urinary bladder is mildly distended. No gas or stone. No thickening. Reproductive: No abnormalities noted. ABDOMEN and PELVIS: Intraperitoneal space: No free air. No significant fluid collection. Bones/joints: Degenerative changes noted in the scoliotic spine. No acute osseous abnormality noted. Chronic bilateral L5 pars defects present with grade 1-2 lumbosacral anterolisthesis. Vasculature: Atherosclerotic calcification of the aorta and branches. No aneurysm. Lymph nodes: No pathologically enlarged lymph nodes. IMPRESSION: 1. Nonspecific ileus without inflammation or obstruction. 2. Mildly distended urinary bladder. No hydronephrosis. ACT 112: Negative or not required by law. Electronically signed by Dimple Garnett 03-05-2024 6:55 PM Discharge Plan Visit Data Chief Complaint: Abnormal Labs/Diagnostic Testing Stated Complaint: ABNORMAL LABS ED Provider: Rita Mckinnon Discharge Problem: Acute kidney injury superimposed on chronic kidney disease, Hypermagnesemia, Acute urinary retention Forms Stand Alone Forms: [employer] Prescriptions Prescriptions: No Action multivitamin [Multiple Vitamins] Tablet 1 tab PO QAM Qty: 0 (DME) blood-glucose meter [OneTouch Ultra2 Meter] Misc See Rx Instructions .MEDSUPPLY Qty: 1 0RF Rx Instructions: Use to test blood glucose once daily; DX CODE- E11.9 (DME) OneTouch Ultra Blue Test Strip Strip See Rx Instructions .MEDSUPPLY Qty: 100 1RF Rx Instructions: Test blood glucose once daily; DX CODE- E11.9 (DME) lancets [OneTouch Delica Plus Lancet] 30 gauge misc See Rx Instructions .MEDSUPPLY Qty: 100 5RF Rx Instructions: Test blood glucose once daily; DX CODE- E11.9 (DME) Select Briefs Misc See Rx Instructions .Route Qty: 120 5RF Rx Instructions: As directed-patient needs Size Small atorvastatin 10 mg tablet 10 mg PO HS Qty: 90 1RF omeprazole 20 mg capsule,delayed release(DR/EC) 20 mg PO QAM Qty: 90 1RF (DME) blood sugar diagnostic Strip See Rx Instructions .ROUTE .MEDSUPPLY Qty: 400 1RF Rx Instructions: Test 2 times per day; Dx code- E11.9 (DME) blood-glucose meter [OneTouch Ultra2 Meter] Misc See Rx Instructions .ROUTE .MEDSUPPLY Qty: 1 0RF Rx Instructions: TEST TWICE DAILY, DX CODE-E11.9 tramadol 50 mg tablet 100 mg PO TIDM ondansetron 4 mg tablet,disintegrating 4 mg PO Q6 PRN (Reason: Nausea And Vomiting) cholecalciferol (vitamin D3) [Vitamin D3] 25 mcg (1,000 unit) Tablet 25 mcg PO QAM Januvia 25 mg tablet 25 mg PO QAM diclofenac sodium [Voltaren Arthritis Pain] 1 % Gel 4 g EXT QID Qty: 100 0RF Rx Instructions: APPLY 4GRAMS TO RIGHT HIP magnesium hydroxide [Milk of Magnesia] 400 mg/5 mL Suspension 30 ml PO DAILY Rx Instructions: HOLD FOR DIARRHEA bisacodyl [Dulcolax (bisacodyl)] 10 mg Suppository 10 mg NH DAILY PRN (Reason: Constipation) Fleet Enema 19-7 gram/118 mL Enema 118 ml NH DAILY PRN (Reason: Constipation) mineral oil-isopropyl myristat Lotion 1 applic TOPICAL BID Rx Instructions: APPLY TO BLE lorazepam 1 mg Tablet 1 mg PO TID PRNQty: 0 0RF lorazepam 1 mg Tablet 1 mg PO HS Qty: 0 0RF cyanocobalamin (vitamin B-12) 1,000 mcg tablet 1,000 mcg PO QAM diclofenac sodium 1 % gel 1 ea TOPICAL QID Rx Instructions: APPLY 2GRAMS TO RIGHT SHOULDER FOUR TIMES DAILY. lamotrigine 150 mg tablet 150 mg PO BIDM montelukast 10 mg tablet 10 mg PO HS olanzapine 20 mg tablet 20 mg PO QDD acetaminophen [Tylenol] 325 mg Tablet 650 mg PO QID MDD 3G PRN (Reason: Fever Or Pain) Rx Instructions: GIVE FOR TEMP >100, AND FOR PAIN # 1=10 Vraylar 3 mg Capsule 3 mg PO BIDM olanzapine [Zyprexa] 5 mg Tablet 5 mg PO QAM Anbesol (benzocaine) Max Str 20 % Gel 1 applic MUCOUS MEMBRANE Q6H PRN (Reason: Mouth Pain) Rx Instructions: APPLY TO GUMS Referrals Referrals: [facility] [Primary Care Provider] -
[2024-03-05 17:19] LABS: Alanine Aminotransferase 26 U/L (7-52); Albumin Globulin Ratio 1.2 (0.9-2); Albumin Level 3.8 gm/dl (3.4-5.0); Alkaline Phosphatase 151 U/L (34-104); Anion Gap 3 (3-11); Aspartate Aminotransferase 25 U/L (13-39); BUN Creatinine Ratio 9.2 (10-20); Bilirubin,Total 0.3 mg/dl (0.2-1.0); Blood Urea Nitrogen 39 mg/dl (6-23); Calcium 8.5 mg/dl (8.6-10.3); Carbon Dioxide 31 mmol/L (21-32); Chloride 100 mmol/L (98-107); Globulin 3.2 gm/dl (2.5-4.0); Glucose 81 mg/dl (70-99(Fasting)); Lipase 56 U/L (11-82); Potassium 4.9 mmol/L (3.5-5.1); Sodium 134 mmol/L (136-145)
[2024-03-05 17:26] LABS: Troponin I High Sensitivity 13.8 pg/ml (0-14)
[2024-03-05 17:28] LABS: INR 0.9 (0.9-1.1); Prothrombin Time 9.8 Seconds (9.0-12.0)
[2024-03-05 17:37] LABS: Magnesium 6.3 mg/dl (1.7-2.4)
--- NOTE | 2024-03-05 17:44 | CT Scan Report ---
EXAM: CT Head Without Intravenous Contrast INDICATION: Change in mental status. Abnormal renal function. TECHNIQUE: Axial computed tomography images of the head/brain without intravenous contrast. Sagittal and/or coronal reformats are provided. Sagittal and coronal reformatted images were created and reviewed. This CT exam was performed using one or more of the following dose reduction techniques: automated exposure control, adjustment of the mA and/or kV according to patient size, and/or use of iterative reconstruction technique. COMPARISON: 12/28/2023 FINDINGS: Limitations: None. Brain and extra-axial spaces: There is age appropriate cortical atrophy and chronic ischemic periventricular white matter hypodensity. No acute infarct, hemorrhage or mass noted. Bones/joints: No acute changes. Soft tissues: There is a very small midline frontal scalp contusion. Vasculature: Intracranial atherosclerotic changes noted. Sinuses: No layering fluid in the visualized portions of the paranasal sinuses. Mastoid air cells: No mastoid effusion. Orbits: No significant abnormality noted. IMPRESSION: 1. Cerebral atrophy. No acute changes in the brain. 2. There is a very small midline frontal scalp contusion. ACT 112: Negative or not required by law. Electronically signed by Dimple Garnett 03-05-2024 5:42 PM
[2024-03-05] MEDS: SODIUM CHLORIDE 0.9% 1,000 ML IV ONE ×2 (18:44→20:07)
--- NOTE | 2024-03-05 18:56 | CT Scan Report ---
EXAM: CT Abdomen and Pelvis Without Intravenous Contrast INDICATION: Abnormal renal function. TECHNIQUE: Axial computed tomography images of the abdomen and pelvis without intravenous contrast. Sagittal and coronal reformatted images were created and reviewed. This CT exam was performed using one or more of the following dose reduction techniques: automated exposure control, adjustment of the mA and/or kV according to patient size, and/or use of iterative reconstruction technique. COMPARISON: 08/09/2023 FINDINGS: Limitations: None. Lung bases: Mild dependent atelectasis in both lung bases. Pleural space: No visualized pleural effusion or pneumothorax. Heart: Stable cardiomegaly and mitral and coronary calcification. No pericardial effusion. Mediastinum: No abnormality noted. ABDOMEN: Liver: Lack of intravenous contrast limits detection of some masses. No abnormality noted. Gallbladder and bile ducts: No calcified stones or surrounding fluid. Pancreas: No pancreatic mass, calcification, inflammation or ductal dilation noted. Spleen: No significant abnormality noted. Adrenals: Stable left adrenal thickening. Right appears normal. Kidneys and ureters: Incidental left renal duplication. Mild bilateral renal cortical scarring present. No stone or hydronephrosis. umbilical hernia containing fat. Bilateral renal cysts renal vascular calcification present. Stomach and bowel: Moderate amounts of diffuse colonic stool and prominent diffuse intestinal aeration. No obstruction. No inflammatory process. PELVIS: Appendix: No findings to suggest acute appendicitis. Bladder: The urinary bladder is mildly distended. No gas or stone. No thickening. Reproductive: No abnormalities noted. ABDOMEN and PELVIS: Intraperitoneal space: No free air. No significant fluid collection. Bones/joints: Degenerative changes noted in the scoliotic spine. No acute osseous abnormality noted. Chronic bilateral L5 pars defects present with grade 1-2 lumbosacral anterolisthesis. Vasculature: Atherosclerotic calcification of the aorta and branches. No aneurysm. Lymph nodes: No pathologically enlarged lymph nodes. IMPRESSION: 1. Nonspecific ileus without inflammation or obstruction. 2. Mildly distended urinary bladder. No hydronephrosis. ACT 112: Negative or not required by law. Electronically signed by Dimple Garnett 03-05-2024 6:55 PM
[2024-03-05 20:07] LABS: Appearance Urine Clear (Clear); Bacteria Urine Automated None Seen (None Seen); Bilirubin Urine Negative (Negative); Blood Urine Negative (Negative); Cast Urine Automated 0-2 /lpf (0-2); Color Urine Yellow; Epithelial Cell Urine Auto 0-2 /hpf (0-2); Glucose Urine UA Negative (Negative); Ketones Urine Negative (Negative); Leukocyte Esterase Urine Negative (Negative); Nitrite Urine Negative (Negative); Protein Urine 3+ (Negative); RBC Urine Automated 0-2 /hpf (0-2); Specific Gravity Urine 1.006 (1.000-1.030); Urobilinogen Urine Negative (Negative); WBC Urine Automated 0-5 /hpf (0-5)
--- NOTE | 2024-03-05 20:20 | History & Physical Report ---
Date of Service March 05, 2024 Assessment & Plan (1) Ileus: (2) Acute kidney injury superimposed on chronic kidney disease: (3) Hypermagnesemia: (4) Sinus bradycardia: (5) Schizoaffective disorder, bipolar type: (6) Hypertension: (7) Chronic kidney disease, stage 4 (severe): Plan Acute kidney injury superimposed on CKD stage IV- Creatinine 4.25, with baseline 2.14 Status post 1 L normal saline bolus from the ED Give a second liter normal saline bolus now, then 1/3 L at 125 mL/h Recheck laboratories at 11 PM and in the a.m. Likely secondary to decreased oral intake associated with ileus Continue Ham catheter to monitor I's and O's Consult nephrology Hypermagnesemia- Magnesium 6.3 on admission Suspect associated with oral intake of milk of magnesia in the setting of SYLVAIN IV fluids as noted above Recheck laboratories at 11 PM and in the a.m. Consult nephrology Ileus- As noted on CT scan NPO until symptomatic improvement IV fluids as noted above Sinus bradycardia- Heart rate initially was noted to be in the upper 30s upon arrival to the ED Heart rate has improved to the 50s The patient will be admitted to telemetry for serial cardiac enzymes, serial EKG's, cardiac rhythm monitoring Most recent echocardiogram on 08/10/2021, with ejection fraction 65-70% Diabetes mellitus- Hold Januvia Placed on Accu-Cheks with NovoLog SSI Schizoaffective disorder, bipolar type- Change Zyprexa to orally disintegrating, 5 mg every morning Hold other medications until able to take oral intake normally History of Present Illness Chief Complaint: The patient is referred to the emergency department from [facility] due to abnormal laboratory values obtained earlier in the day Primary Care Provider: [facility] The patient is a 73-year-old female with a past medical history including hypercholesterolemia, schizoaffective disorder bipolar type, CKD stage IV, hypertension, multiple falls, generalized weakness, diabetes mellitus type 2, vitamin D deficiency, hyperparathyroidism, hypercholesterolemia, COPD, and chronic diastolic heart failure. The patient underwent routine laboratories at [facility] earlier today, and due to abnormal creatinine and magnesium, she was referred to the ED for further assessment and treatment. The patient is not able to contribute significantly to HPI or review of systems due to psychiatric diagnoses Allergies Allergy/AdvReac Type Severity Reaction Status Date / Time clozapine Allergy Severe TOXIC Verified 12/28/23 22:25 REACTION lurasidone Allergy Severe TOXIC Verified 12/28/23 22:25 REACTION aspirin Allergy Unknown UNKNOWN Verified 12/28/23 22:25 REACTION ibuprofen Allergy Unknown UNKNOWN Verified 12/28/23 22:25 REACTION latex Allergy Unknown UNKNOWN Verified 12/28/23 22:25 Penicillins Allergy Unknown UNKNOWN Verified 12/28/23 22:25 REACTION Sulfa (Sulfonamide Allergy Unknown UNKNOWN Verified 12/28/23 22:25 Antibiotics) REACTION Home Medications Medication Instructions Recorded Confirmed Type multivitamin (Multiple Vitamins 1 tab PO QAM ##0 11/17/17 03/05/24 History tablet) blood sugar diagnostic (OneTouch #100 ea 08/25/20 08/29/23 Rx Ultra Blue Test Strip) blood-glucose meter (OneTouch #1 ea 08/25/20 08/29/23 Rx Ultra2 Meter) cholecalciferol (vitamin D3) 25 25 mcg PO QAM 08/26/20 03/05/24 History mcg (1,000 unit) tablet (Vitamin D3) atorvastatin 10 mg tablet 10 mg PO HS #90 tabs 03/09/21 03/05/24 Rx blood sugar diagnostic #400 ea 03/09/21 08/29/23 Rx blood-glucose meter (OneTouch #1 ea 03/09/21 08/29/23 Rx Ultra2 Meter) omeprazole 20 mg capsule,delayed 20 mg PO QAM #90 caps 03/09/21 03/05/24 Rx release lancets 30 gauge (OneTouch Delica #100 ea 03/18/21 08/29/23 Rx Plus Lancet) diaper,brief,adult,disposable #120 ea 08/07/21 08/29/23 Rx (Select Briefs) sitagliptin phosphate 25 mg tablet 25 mg PO QAM 08/07/21 03/05/24 History (Januvia) diclofenac sodium 1 % topical gel 4 g EXT QID #100 grams 08/31/21 12/28/23 Rx (Voltaren Arthritis Pain) tramadol 50 mg tablet 100 mg PO TIDM 08/06/22 03/05/24 History acetaminophen 325 mg tablet 650 mg PO QID PRN Fever Or Pain 07/14/23 03/05/24 History (Tylenol) benzocaine 20 % mucosal gel 1 applic mucous membrane Q6H PRN 07/14/23 03/05/24 History (Anbesol (benzocaine) Maximum Mouth Pain Strength) cariprazine 3 mg capsule (Vraylar) 3 mg PO BIDM 07/14/23 03/05/24 History cyanocobalamin (vitamin B-12) 1,000 mcg PO QAM 07/14/23 03/05/24 History 1,000 mcg tablet diclofenac sodium 1 % topical gel 1 ea topical QID 07/14/23 03/05/24 History lamotrigine 150 mg tablet 150 mg PO BIDM 07/14/23 03/05/24 History montelukast 10 mg tablet 10 mg PO HS 07/14/23 03/05/24 History olanzapine 20 mg tablet 20 mg PO DAILY 07/14/23 03/05/24 History olanzapine 5 mg tablet (Zyprexa) 5 mg PO QAM 07/14/23 03/05/24 History bisacodyl 10 mg rectal suppository 10 mg IN DAILY PRN Constipation 08/23/23 03/05/24 History (Dulcolax (bisacodyl)) magnesium hydroxide 400 mg/5 mL 30 ml PO DAILY 08/23/23 03/05/24 History oral suspension (Milk of Magnesia) sodium phosphates 19 gram-7 118 ml IN DAILY PRN Constipation 08/23/23 03/05/24 History gram/118 mL enema (Fleet Enema) lorazepam 1 mg tablet 1 mg PO HS #0 tabs 01/09/24 03/05/24 Rx amlodipine 5 mg tablet 5 mg PO QAM 03/05/24 03/05/24 History lithium carbonate 300 mg capsule 300 mg PO QAM 03/05/24 03/05/24 History lorazepam 1 mg tablet 1 mg PO DAILY PRN Anxiety 03/05/24 03/05/24 History mineral oil-isopropyl myristat 1 applic topical BID 03/05/24 03/05/24 History lotion Past Med/Surg History Problem List (Updated 03/05/24 @ 23:39 by Hossein Gaxiola MD) Sinus bradycardia Ileus Acute urinary retention (Acute) Hypermagnesemia (Acute) Acute kidney injury superimposed on chronic kidney disease (Acute) Hematuria (Acute) Hyperchloremia Elevated BP without diagnosis of hypertension Schizoaffective disorder, bipolar type Hypernatremia CRF (chronic renal failure) (Acute) Acute dehydration (Acute) Rhabdomyolysis (Acute) Right hand fracture (Acute) Hypertension Renal cyst (Chronic) Chronic kidney disease, stage 4 (severe) (Chronic) Acute kidney injury Right hip pain Unable to care for self (Acute) Fall (Acute) CHI (closed head injury) (Acute) Dysuria Ankle pain, right Back pain (Acute) Multiple falls (Acute) Generalized weakness (Acute) Behavior safety risk (Acute) Pharyngitis Colon cancer screening Encounter for pre-operative examination Bilateral ankle pain Knee pain, bilateral Spondylolisthesis at L5-S1 level Urinary incontinence Diabetes mellitus type 2, controlled (Acute 02/09/13) Benign essential hypertension (Acute) Schizoaffective disorder (Acute) Stage III chronic kidney disease (Acute) Vitamin D deficiency (Acute) SNHL (sensorineural hearing loss) (Acute) Polyarthritis (Acute) Multinodular thyroid (Acute) Mobility impaired (Acute) Low TSH level (Acute) [place] use (Acute) Hyperparathyroidism (Acute) Hypercholesterolemia (Acute) High serum thyroglobulin (Acute) Hiatal hernia (Acute) Gastroesophageal reflux disease (Acute) Elevated alkaline phosphatase level (Acute) Edema (Acute) Eczema (Acute) Chronic lower back pain (Acute) Chronic diarrhea (Acute) COPD, mild (Acute) Bipolar I disorder, single manic episode (Acute) Asthma (Acute) Abnormal mammogram (Acute) Frequent falls (Acute) Anemia (Acute) Gait disturbance Schizoaffective disorder Deafness Chronic diastolic CHF (congestive heart failure) per record; fiance could not confirm. does not follow with general manager Depression (Acute) Medical History Elevated troponin Acute head trauma Anemia Psychosis UTI (urinary tract infection) Bipolar disorder Anemia History of COVID-19 EKG abnormalities Spondylolisthesis CKD (chronic kidney disease) Anxiety GERD (gastroesophageal reflux disease) Osteoporosis Osteoarthritis Asthma Bipolar disorder Hyperparathyroidism Type II diabetes mellitus Hyperlipemia Surgical History History of colonoscopy History of tooth extraction History of cataract surgery Status post breast lumpectomy History of tubal ligation Family History Father Myocardial infarction Brother Rheumatoid arthritis Other Cancer Diabetes Heart disease Hypertension Lung disease Denies family history of Colon cancer Ovarian cancer Prostate cancer Breast cancer Social History Smoking Status: Never smoker Tobacco Type: Cigarettes Second Hand Exposure: No; Do You Dip or Chew Tobacco: No; Hx Alcohol Use: No Hx Substance Use: No Preferred Language: [place] Communication Ability: Impaired Communication Ability Comment: per facility pt unable to sign consents, will need POA to sign Visual Impairment: Partially Limited Hearing Ability: Senior Enlisted Advisor Required: No Beliefs That Will Affect Care: None marital status: Single Current Living Situation: Shelter Current Living Situation Comment: [facility] current occupational status: disabled Feels Safe at Home: Yes Childhood Exposure to Second-Hand Smoke: No Diet: regular Dental Care, Regularly: No Physical Activity Frequency: 5-6 Times per Week Seatbelt Use: always Sunscreen Use: No Assistive Devices: Wheelchair Review of Systems Review of Systems: The patient is not able to contribute significantly to review of systems due to current psychiatric diagnoses Physical Exam Physical Exam: The patient is awake, confused, normocephalic and atraumatic, lying in bed and in no acute distress. HEENT--PERRL, EOMI, mucous membranes and oropharynx dry. Neck--supple. No JVD. No bruits. Thyroid normal, trachea midline, no adenopathy. Heart--normal S1 and S2. No murmurs, rubs or gallops. Lungs--clear bilaterally, no respiratory distress, no accessory muscle use. Abdomen--normal bowel sounds and soft. Nontender. Nondistended, no hernias or masses, no organomegaly. Extremities--no cyanosis or clubbing. No edema. There are good distal pulses b/l. Dermatologic--normal skin turgor, normal color, no abnormal lymph nodes, no rash. Neurologic--cranial nerves II through XII grossly intact. Rheumatologic--normal range of motion. Psychiatric--normal affect. Results & Data Results & Data Vital Signs (Past 12 Hours) Vital Signs Temp Pulse Pulse Resp BP BP Pulse Ox 03/05/24 20:10 51 L 03/05/24 19:00 48 L 18 156/79 H 97 03/05/24 18:00 43 L 18 169/58 H 96 03/05/24 17:00 46 L 18 136/70 97 03/05/24 16:45 37 L 18 163/67 H 97 03/05/24 16:39 45 L 03/05/24 16:04 36.9 C 49 L 18 184/75 H 95 03/05/24 15:57 92 O2 Del Method 03/05/24 20:10 03/05/24 19:00 Room Air 03/05/24 18:00 Room Air 03/05/24 17:00 Room Air 03/05/24 16:45 Room Air 03/05/24 16:39 03/05/24 16:04 Room Air 03/05/24 15:57 Room Air Laboratory Results Laboratory Results WBC 7.39 K/ul (4.8-10.8) 03/05/24 16:45 RBC 3.57 M/uL (4.20-5.40) L 03/05/24 16:45 Hgb 10.7 g/dl (12.0-16.0) L 03/05/24 16:45 POC Hgb 10.5 g/dl (12.0-16.0) L 03/05/24 16:53 Hct 34.0 % (37.0-47.0) L 03/05/24 16:45 POC Hct 31 % (37-47) L 03/05/24 16:53 MCV 95.2 fL (80.0-100.0) 03/05/24 16:45 MCH 30.0 pg (25.0-34.0) 03/05/24 16:45 MCHC 31.5 g/dL (32.0-36.0) L 03/05/24 16:45 RDW Std Deviation 53.4 fL (36.4-46.3) H 03/05/24 16:45 RDW Coeff of Rachel 15.2 % (11.5-14.5) H 03/05/24 16:45 Plt Count 378 K/uL (130-400) 03/05/24 16:45 MPV 10.4 fL (9.4-12.4) 03/05/24 16:45 Immature Gran % (Auto) 0.5 % 03/05/24 16:45 Neut % (Auto) 78.0 % 03/05/24 16:45 Lymph % (Auto) 11.6 % 03/05/24 16:45 Carbon % (Auto) 9.9 % 03/05/24 16:45 Eos % (Auto) 0.0 % 03/05/24 16:45 Baso % (Auto) 0.0 % 03/05/24 16:45 Neut # (Auto) 5.76 K/uL (1.40-6.50) 03/05/24 16:45 Lymph # (Auto) 0.86 K/uL (1.20-3.40) L 03/05/24 16:45 Carbon # (Auto) 0.73 K/uL (0.11-0.59) H 03/05/24 16:45 Eos # (Auto) 0.00 K/uL (0.00-0.50) 03/05/24 16:45 Baso # (Auto) 0.00 K/uL (0.00-0.20) 03/05/24 16:45 Immature Gran # (Auto) 0.04 K/uL (0.01-0.20) 03/05/24 16:45 PT 9.8 Seconds (9.0-12.0) 03/05/24 16:45 INR 0.9 (0.9-1.1) 03/05/24 16:45 POC Sodium 134 mmol/L (135-144) L 03/05/24 16:53 Sodium 142 mmol/L (136-145) 03/05/24 22:40 POC Potassium 4.8 mmol/L (3.3-5.0) 03/05/24 16:53 Potassium 4.4 mmol/L (3.5-5.1) 03/05/24 22:40 POC Chloride 100 mmol/L (101-112) L 03/05/24 16:53 Chloride 111 mmol/L (98-107) H 03/05/24 22:40 Carbon Dioxide 27 mmol/L (21-32) 03/05/24 22:40 POC Total CO2 29 mmol/L (24-31) 03/05/24 16:53 Anion Gap 4 (3-11) 03/05/24 22:40 POC Anion Gap 10.0 mmol/L (16-25) L 03/05/24 16:53 POC BUN 39 mg/dl (7-18) H 03/05/24 16:53 BUN 35 mg/dl (6-23) H 03/05/24 22:40 Creatinine 4.01 mg/dl (0.6-1.2) H 03/05/24 22:40 POC Creatinine 4.8 mg/dl (0.6-1.3) H* 03/05/24 16:53 Est Cr Clr Drug Dosing 10.5 ml/min 03/05/24 22:40 eGFR 11.38 03/05/24 22:40 BUN/Creatinine Ratio 8.7 (10-20) L 03/05/24 22:40 Glucose 109 mg/dl (70-99(Fasting)) H 03/05/24 22:40 POC Glucose 125 mg/dl (70-99) H 03/05/24 21:48 POC Glucose (other) 82 mg/dl (70-99) 03/05/24 16:53 Lactate 0.8 mmol/L (0.4-2.0) 03/05/24 17:14 Calcium 7.7 mg/dl (8.6-10.3) L 03/05/24 22:40 POC Ioniz Calcium [place]zel 1.03 mmol/l (1.12-1.32) L 03/05/24 16:53 Phosphorus 5.0 mg/dl (2.5-4.9) H 03/05/24 22:40 Magnesium 5.4 mg/dl (1.7-2.4) H* 03/05/24 22:40 Total Bilirubin 0.3 mg/dl (0.2-1.0) 03/05/24 16:45 AST 25 U/L (13-39) 03/05/24 16:45 ALT 26 U/L (7-52) 03/05/24 16:45 Alkaline Phosphatase 151 U/L (34-104) H 03/05/24 16:45 Troponin I High Sens 13.8 pg/ml (0-14) 03/05/24 16:45 Total Protein 7.0 gm/dl (6.0-8.3) 03/05/24 16:45 Albumin 3.2 gm/dl (3.4-5.0) L 03/05/24 22:40 Globulin 3.2 gm/dl (2.5-4.0) 03/05/24 16:45 Albumin/Globulin Ratio 1.2 (0.9-2) 03/05/24 16:45 Lipase 56 U/L (11-82) 03/05/24 16:45 Procalcitonin 0.16 ng/ml (0-0.5) 03/05/24 16:45 Urine Color Yellow 03/05/24 19:45 Urine Appearance Clear (Clear) 03/05/24 19:45 Urine pH 8.0 (4.5-7.5) H 03/05/24 19:45 Ur Specific [place] 1.006 (1.000-1.030) 03/05/24 19:45 Urine Protein 3+ (Negative) H 03/05/24 19:45 Urine Glucose (UA) Negative (Negative) 03/05/24 19:45 Urine Ketones Negative (Negative) 03/05/24 19:45 Urine Blood Negative (Negative) 03/05/24 19:45 Urine Nitrite Negative (Negative) 03/05/24 19:45 Urine Bilirubin Negative (Negative) 03/05/24 19:45 Urine Urobilinogen Negative (Negative) 03/05/24 19:45 Ur Leukocyte Esterase Negative (Negative) 03/05/24 19:45 Urine WBC (Auto) 0-5 /hpf (0-5) 03/05/24 19:45 Urine RBC (Auto) 0-2 /hpf (0-2) 03/05/24 19:45 U Hyaline Cast (Auto) 0-2 /lpf (0-2) 03/05/24 19:45 U Epithel Cells (Auto) 0-2 /hpf (0-2) 03/05/24 19:45 Urine Bacteria (Auto) None Seen (None Seen) 03/05/24 19:[address] 03/05/24 17:03 EXAM: CT Head Without Intravenous Contrast INDICATION: Change in mental status. Abnormal renal function. TECHNIQUE: Axial computed tomography images of the head/brain without intravenous contrast. Sagittal and/or coronal reformats are provided. Sagittal and coronal reformatted images were created and reviewed. This CT exam was performed using one or more of the following dose reduction techniques: automated exposure control, adjustment of the mA and/or kV according to patient size, and/or use of iterative reconstruction technique. COMPARISON: 12/28/2023 FINDINGS: Limitations: None. Brain and extra-axial spaces: There is age appropriate cortical atrophy and chronic ischemic periventricular white matter hypodensity. No acute infarct, hemorrhage or mass noted. Bones/joints: No acute changes. Soft tissues: There is a very small midline frontal scalp contusion. Vasculature: Intracranial atherosclerotic changes noted. Sinuses: No layering fluid in the visualized portions of the paranasal sinuses. Mastoid air cells: No mastoid effusion. Orbits: No significant abnormality noted. IMPRESSION: 1. Cerebral atrophy. No acute changes in the brain. 2. There is a very small midline frontal scalp contusion. ACT 112: Negative or not required by law. Electronically signed by Dimple Garnett 03-05-2024 5:42 PM Abdomen/Pelvis CT 03/05/24 17:37 EXAM: CT Abdomen and Pelvis Without Intravenous Contrast INDICATION: Abnormal renal function. TECHNIQUE: Axial computed tomography images of the abdomen and pelvis without intravenous contrast. Sagittal and coronal reformatted images were created and reviewed. This CT exam was performed using one or more of the following dose reduction techniques: automated exposure control, adjustment of the mA and/or kV according to patient size, and/or use of iterative reconstruction technique. COMPARISON: 08/09/2023 FINDINGS: Limitations: None. Lung bases: Mild dependent atelectasis in both lung bases. Pleural space: No visualized pleural effusion or pneumothorax. Heart: Stable cardiomegaly and mitral and coronary calcification. No pericardial effusion. Mediastinum: No abnormality noted. ABDOMEN: Liver: Lack of intravenous contrast limits detection of some masses. No abnormality noted. Gallbladder and bile ducts: No calcified stones or surrounding fluid. Pancreas: No pancreatic mass, calcification, inflammation or ductal dilation noted. Spleen: No significant abnormality noted. Adrenals: Stable left adrenal thickening. Right appears normal. Kidneys and ureters: Incidental left renal duplication. Mild bilateral renal cortical scarring present. No stone or hydronephrosis. umbilical hernia containing fat. Bilateral renal cysts renal vascular calcification present. Stomach and bowel: Moderate amounts of diffuse colonic stool and prominent diffuse intestinal aeration. No obstruction. No inflammatory process. PELVIS: Appendix: No findings to suggest acute appendicitis. Bladder: The urinary bladder is mildly distended. No gas or stone. No thickening. Reproductive: No abnormalities noted. ABDOMEN and PELVIS: Intraperitoneal space: No free air. No significant fluid collection. Bones/joints: Degenerative changes noted in the scoliotic spine. No acute osseous abnormality noted. Chronic bilateral L5 pars defects present with grade 1-2 lumbosacral anterolisthesis. Vasculature: Atherosclerotic calcification of the aorta and branches. No aneurysm. Lymph nodes: No pathologically enlarged lymph nodes. IMPRESSION: 1. Nonspecific ileus without inflammation or obstruction. 2. Mildly distended urinary bladder. No hydronephrosis. ACT 112: Negative or not required by law. Electronically signed by Dimple Garnett 03-05-2024 6:55 PM Code Status & VTE Plan Code Status DNR/DNI VTE Prophylaxis Plan VTE Prophylaxis will be ordered: Yes PG Care Time/CCT Total # of Minutes Spent Total Time Spent with Patient: Total time spent is greater than 50% in coordination of care (as documented) at patient's floor/unit and/or counseling patient: Coding Level of Care Code 40806 INT INP/OBS CARE 3/75MIN Diagnoses Ileus K56.7 Acute kidney injury superimposed on chronic kidney disease N17.9; N18.9 Hypermagnesemia E83.41 Sinus bradycardia R00.1 Schizoaffective disorder, bipolar type F25.0 Hypertension I10 Chronic kidney disease, stage 4 (severe) N18.4
[2024-03-05] MEDS ORDERED: ONDANSETRON 4 MG OD TAB PO PRN (21:38)
[2024-03-05] MEDS ORDERED: GLUCOSE 40% GEL 15 GM TUBE PO PRN (21:38)
[2024-03-05] MEDS ORDERED: GLUCAGON FOR INJ 1 MG VIAL SQ PRN (21:38)
[2024-03-05] MEDS ORDERED: GLUCOSE 10 TAB/TUBE PO PRN (21:38)
[2024-03-05] MEDS ORDERED: CARBOHYDRATES FOR HYPOGLYCEMIA PO PRN (21:38)
[2024-03-05] MEDS ORDERED: DEXTROSE 50% 50 ML SYRINGE IV PRN (21:38)
[2024-03-05] MEDS: SODIUM CHLORIDE 0.9% 1,000 ML IV SCH (21:50)
[2024-03-05] MEDS: INSULIN ASPART PER UNIT CHARGE SC SCH (21:50)
[2024-03-05 23:23] LABS: BUN Creatinine Ratio 8.7 (10-20); Calcium 7.7 mg/dl (8.6-10.3); Creatinine Clr Calc Pharmacy 10.5 ml/min; Potassium 4.4 mmol/L (3.5-5.1)
[2024-03-05 23:27] LABS: Albumin Level 3.2 gm/dl (3.4-5.0); Magnesium 5.4 mg/dl (1.7-2.4)
[2024-03-06 06:09] LABS: Hematocrit (blood only) 31.5 % (37.0-47.0); Hemoglobin 9.7 g/dl (12.0-16.0); Immature Granulocytes # (auto) 0.04 K/uL (0.01-0.20); Immature Granulocytes % (auto) 0.6 %; Lymphocytes # (auto) 0.53 K/uL (1.20-3.40); Lymphocytes % (auto) 8.2 %; Mean Corpuscular Hemoglobin 29.4 pg (25.0-34.0); Mean Corpuscular Hgb Conc 30.8 g/dL (32.0-36.0); Mean Corpuscular Volume 95.5 fL (80.0-100.0); Mean Platelet Volume 10.1 fL (9.4-12.4); Monocytes # (auto) 0.39 K/uL (0.11-0.59); Neutrophils % (auto) 85.2 %; Platelet Count 345 K/uL (130-400); RDW Coefficient of Variation 15.2 % (11.5-14.5); RDW Standard Deviation 53.8 fL (36.4-46.3); White Blood Count 6.46 K/ul (4.8-10.8)
[2024-03-06 06:29] LABS: Albumin Globulin Ratio 1.3 (0.9-2); Albumin Level 3.4 gm/dl (3.4-5.0); BUN Creatinine Ratio 8.5 (10-20); Bilirubin,Total 0.3 mg/dl (0.2-1.0); Calcium 8.2 mg/dl (8.6-10.3); Creatinine Clr Calc Pharmacy 11.2 ml/min; Globulin 2.7 gm/dl (2.5-4.0); Potassium 4.5 mmol/L (3.5-5.1); Total Protein 6.1 gm/dl (6.0-8.3)
[2024-03-06 07:50] LABS: Estimated Average Glucose 114 mg/dl; Hemoglobin A1C 5.6 % (4.5-5.6)
[2024-03-06] MEDS: OLANZapine ZYDIS 5 MG ORALLY DIS. TAB PO SCH (08:56)
[2024-03-06] MEDS ORDERED: OLANZapine 20 MG TABLET PO SCH ×2 (09:00→21:00)
[2024-03-06 09:02] LABS: Magnesium 5.5 mg/dl (1.7-2.4); Troponin I High Sensitivity 13.5 pg/ml (0-14)
[2024-03-06] MEDS: amLODIPine BESYLATE 5 MG TAB PO SCH (09:44)
[2024-03-06] MEDS: PANTOprazole 40 MG TAB PO SCH (09:44)
--- NOTE | 2024-03-06 12:36 | Nephrology Consultation ---
Date of Consultation March 06, 2024 Assessment & Plan (1) Acute kidney injury superimposed on chronic kidney disease: (2) Hypermagnesemia: (3) Hypernatremia: (4) Hypocalcemia: (5) Chronic kidney disease, stage 4 (severe): (6) Hypertension: Plan 73 year-old female with history of stage IV CKD, Hypernatremia, admitted on 03/05/24 with outpatient lab showing SYLVAIN,hypernatremia and hypermagnesemia.In ER labs showed creatinine was 4.4, magnesium 6.3 and mild hypernatremia. h/o stage 4 CKD, b/l cr has been around 2.5 mg/dl. Magnesium was 6.3 on admission which slightly improved to 5.4 on labs this morning but again went up to 5.5. Hypomagnesia most likely secondary to advanced CKD and use of milk of magnesia. Mild hypocalcemia noted in the setting of hypercalcemia. 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 Lab this morning showed kidney function slightly improved but magnesium remains elevated. Sodium was elevated. Blood pressure remained elevated but amlodipine was just started at 5 mg this morning. --Start on half-normal saline and Lasix 80 mg x 1 dose now to help with urinary magnesium loss. If Magnesium improve significantly, okay to discontinue IV fluid. Encourage increase fluid intake. --Calcium gluconate 1 g x 1 dose now. --mg and renal panel in the afternoon. -- Continue on amlodipine 5 mg daily and if blood pressure remains elevated, increase to 10 mg daily. Thank you for the consult. History of Present Illness Reason for Consultation: SYLVAIN, stage IV CKD, hypermagnesemia, hypernatremia. Attending Physician: Lissette Perez MD History of Present Illness Ms. Brenda Medley is a 73-year-old female with stage IV CKD, history of repeated episodes of hypernatremia, schizoaffective disorder, admitted to the hospital with abnormal outpatient lab including SYLVAIN, hypermagnesemia and hypernatremia acute manic episode. Nephrology consult requested for management of above. EMR records were reviewed in detail during patient's visit. Brenda was brought to ER on 03/05/24 with outpatient lab abnormality. Outpatient lab showed SYLVAIN, and hypermagnesemia and she was brought to ER. In ER labs showed creatinine was 4.4, magnesium 6.3 and mild hyponatremia. She was given 2 L of IV fluid since admission. She was taking milk of magnesium which was stopped. Repeat lab this morning showed magnesium was 5.4 but again slightly worsened to 5.5. Kidney function slightly improved to creatinine 3.7 with underlying advanced CKD. Calcium has been borderline low normal. She was otherwise at her usual state without any acute symptoms but seems to be somewhat agitated during evaluation this morning. Potassium has been normal. Blood pressure has been elevated. Has Ham catheter with high urine output and urine has been clear. Has history of stage III stage IV CKD, baseline creatinine has been 2.3-2.5 mg/dl, Has been following with Dr. Rich as an outpatient. 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 Prior urinalysis with low- grade proteinuria with history of diabetes. Renal imaging was otherwise unremarkable. Past medical history also significant for type 2 diabetes, hypertension, bipolar and schizoaffective disorder, has been in center care. She was awake, alert, comfortable except occasional agitation. Allergies Allergy/AdvReac Type Severity Reaction Status Date / Time clozapine Allergy Severe TOXIC Verified 12/28/23 22:25 REACTION lurasidone Allergy Severe TOXIC Verified 12/28/23 22:25 REACTION aspirin Allergy Unknown UNKNOWN Verified 12/28/23 22:25 REACTION ibuprofen Allergy Unknown UNKNOWN Verified 12/28/23 22:25 REACTION latex Allergy Unknown UNKNOWN Verified 12/28/23 22:25 Penicillins Allergy Unknown UNKNOWN Verified 12/28/23 22:25 REACTION Sulfa (Sulfonamide Allergy Unknown UNKNOWN Verified 12/28/23 22:25 Antibiotics) REACTION Home Medications Medication Instructions Recorded Confirmed Type multivitamin (Multiple Vitamins 1 tab PO QAM ##0 11/17/17 03/05/24 History tablet) blood sugar diagnostic (OneTouch #100 ea 08/25/20 08/29/23 Rx Ultra Blue Test Strip) blood-glucose meter (OneTouch #1 ea 08/25/20 08/29/23 Rx Ultra2 Meter) cholecalciferol (vitamin D3) 25 25 mcg PO QAM 08/26/20 03/05/24 History mcg (1,000 unit) tablet (Vitamin D3) atorvastatin 10 mg tablet 10 mg PO HS #90 tabs 03/09/21 03/05/24 Rx blood sugar diagnostic #400 ea 03/09/21 08/29/23 Rx blood-glucose meter (OneTouch #1 ea 03/09/21 08/29/23 Rx Ultra2 Meter) omeprazole 20 mg capsule,delayed 20 mg PO QAM #90 caps 03/09/21 03/05/24 Rx release lancets 30 gauge (OneTouch Delica #100 ea 03/18/21 08/29/23 Rx Plus Lancet) diaper,brief,adult,disposable #120 ea 08/07/21 08/29/23 Rx (Select Briefs) sitagliptin phosphate 25 mg tablet 25 mg PO QAM 08/07/21 03/05/24 History (Januvia) diclofenac sodium 1 % topical gel 4 g EXT QID #100 grams 08/31/21 12/28/23 Rx (Voltaren Arthritis Pain) tramadol 50 mg tablet 100 mg PO TIDM 08/06/22 03/05/24 History acetaminophen 325 mg tablet 650 mg PO QID PRN Fever Or Pain 07/14/23 03/05/24 History (Tylenol) benzocaine 20 % mucosal gel 1 applic mucous membrane Q6H PRN 07/14/23 03/05/24 History (Anbesol (benzocaine) Maximum Mouth Pain Strength) cariprazine 3 mg capsule (Vraylar) 3 mg PO BIDM 07/14/23 03/05/24 History cyanocobalamin (vitamin B-12) 1,000 mcg PO QAM 07/14/23 03/05/24 History 1,000 mcg tablet diclofenac sodium 1 % topical gel 1 ea topical QID 07/14/23 03/05/24 History lamotrigine 150 mg tablet 150 mg PO BIDM 07/14/23 03/05/24 History montelukast 10 mg tablet 10 mg PO HS 07/14/23 03/05/24 History olanzapine 20 mg tablet 20 mg PO DAILY 07/14/23 03/05/24 History olanzapine 5 mg tablet (Zyprexa) 5 mg PO QAM 07/14/23 03/05/24 History bisacodyl 10 mg rectal suppository 10 mg ID DAILY PRN Constipation 08/23/23 03/05/24 History (Dulcolax (bisacodyl)) magnesium hydroxide 400 mg/5 mL 30 ml PO DAILY 08/23/23 03/05/24 History oral suspension (Milk of Magnesia) sodium phosphates 19 gram-7 118 ml ID DAILY PRN Constipation 08/23/23 03/05/24 History gram/118 mL enema (Fleet Enema) lorazepam 1 mg tablet 1 mg PO HS #0 tabs 01/09/24 03/05/24 Rx amlodipine 5 mg tablet 5 mg PO QAM 03/05/24 03/05/24 History lithium carbonate 300 mg capsule 300 mg PO QAM 03/05/24 03/05/24 History lorazepam 1 mg tablet 1 mg PO DAILY PRN Anxiety 03/05/24 03/05/24 History mineral oil-isopropyl myristat 1 applic topical BID 03/05/24 03/05/24 History lotion Patient History Medical History Elevated troponin Acute head trauma Anemia Psychosis UTI (urinary tract infection) Bipolar disorder Anemia History of COVID-19 EKG abnormalities Spondylolisthesis CKD (chronic kidney disease) Anxiety GERD (gastroesophageal reflux disease) Osteoporosis Osteoarthritis Asthma Bipolar disorder Hyperparathyroidism Type II diabetes mellitus Hyperlipemia Surgical History History of colonoscopy History of tooth extraction History of cataract surgery Status post breast lumpectomy History of tubal ligation Family History Father Myocardial infarction Brother Rheumatoid arthritis Other Cancer Diabetes Heart disease Hypertension Lung disease Denies family history of Colon cancer Ovarian cancer Prostate cancer Breast cancer Social History Smoking Status: Never smoker Tobacco Type: Cigarettes Second Hand Exposure: No; Do You Dip or Chew Tobacco: No; Hx Alcohol Use: No Hx Substance Use: No Preferred Language: Panamanian Communication Ability: Impaired Communication Ability Comment: per facility pt unable to sign consents, will need POA to sign Visual Impairment: Partially Limited Hearing Ability: Big Machine Consultant Required: No Beliefs That Will Affect Care: None marital status: Single Current Living Situation: [facility] Current Living Situation Comment: [facility] current occupational status: disabled Other Information That Helps Us Care for You: No Feels Safe at Home: Yes Safety Concerns: Feels Safe At This Time Childhood Exposure to Second-Hand Smoke: No Diet: regular Dental Care, Regularly: No Physical Activity Frequency: 5-6 Times per Week Seatbelt Use: always Sunscreen Use: No Assistive Devices: Wheelchair Review of Systems Review of Systems: Detailed review of system was limited because of her difficulty with speech. Physical Exam Constitutional: WD/WN, vitals as above no acute distress Eyes: + anicteric sclerae Neck: normal visual inspection Respiratory: no respiratory distress Auscultation: lungs clear to auscultation bilaterally Gastrointestinal (Abdomen): Inspection/Auscultation: abdomen normal to inspection Musculoskeletal: Extremities: extremities normal to inspection Skin: no rashes, warm and dry Neurologic: no focal motor deficits Psychiatric: Orientation: alert and cooperative Results & Data Vital Signs (Past 12 Hours) Vital Signs Temp Pulse Pulse Resp BP BP Pulse Ox 03/06/24 11:29 36.4 C L 56 L 16 162/52 H 96 03/06/24 10:12 62 03/06/24 08:51 36.7 C 77 18 170/89 H 97 03/06/24 03:17 36.6 C 61 20 175/67 H 95 O2 Del Method 03/06/24 11:29 Room Air 03/06/24 10:12 03/06/24 08:51 Room Air 03/06/24 03:17 Room Air PG Care Time/CCT Total # of Minutes Spent Total Time Spent with Patient: Total time spent is greater than 50% in coordination of care (as documented) at patient's floor/unit and/or counseling patient: Coding Level of Care Code 79182 INT INP/OBS CARE 3/75MIN Diagnoses Acute kidney injury superimposed on chronic kidney disease N17.9; N18.9 Hypermagnesemia E83.41 Hypernatremia E87.0 Hypocalcemia E83.51 Chronic kidney disease, stage 4 (severe) N18.4 Hypertension I10
[2024-03-06] MEDS: FUROSEMIDE 80 MG TAB PO ONE (13:34)
[2024-03-06] MEDS: CALCIUM GLUCONATE 1,000 MG/60 ML BAG IV STA (13:34)
--- NOTE | 2024-03-06 13:35 | Psychiatric Consultation ---
Date of Consultation March 06, 2024 Impression / Recommendations Impression 73-year-old woman with history of schizoaffective disorder, bipolar type, stage IV kidney disease presents from [facility] ([facility]) after abnormal lab work for elevated Cr. Here for SYLVAIN. Pt has history of progressive renal dysfunction with long-term use of Slayton due to effectiveness for stabilizing her mood condition. Psychiatry consulted for evaluation, medication recommendations. Given SYLVAIN and that Slayton level in therapeutic range will recommend holding home Slayton dose and to draw lithium levels daily. Once SYLVAIN is resolved and patient at baseline kidney function, plan to reintroduce lithium cautiously at a lower dose. Strong psychiatric indication to continue lithium for mood stabilization versus other treatments due to treatment failures with other agents and concern for decompensation and significant dysfunction if lithium d/c long-term. 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 Consider hemodialysis moving forward. Regarding her other home psychotropics: caripirazine has not been studied in severe renal impairment; dose adjustment may be required for olanzapine, lamotrigine, lorazepam in severe renal impairment. Aripiprazole and Haloperidol are safer antipsychotics in severe renal impairment with no dosage adjustments required however may not be effective options for the patient. At this time will recommend to lower nightly olanzapine dose and to continue other home medications. Overall, I spent a total of 60 minutes with this case including review of chart records, nursing report, review of lab work, direct evaluation of the patient at bedside, counseling the patient, discussion of the patient with the hospitalist provider, discussion with the psychiatric liaison during clinical rounds, and documentation in the electronic health record. (1) Schizoaffective disorder, bipolar type: (2) Acute kidney injury superimposed on chronic kidney disease: (3) Acute urinary retention: (4) Slayton nephropathy: (5) Tardive dyskinesia: Plan -Hold home lithium -Slayton level daily -Olanzapine 5mg QAM, 15mg HS -Lamotrigine 150mg BIDM -Lorazepam 1mg HS -Cariprazine 3mg BIDM -Lorazepam 1mg PO/IM BID PRN for anxiety -Haloperidol 2.5mg PO/IM BID PRN for agitation -Will continue to follow patient Psych History Identifying Data 73-year-old woman with history of schizoaffective disorder, bipolar type, stage IV kidney disease presents from [facility] ([facility]) after abnormal lab work for elevated Cr. Here for SYLVAIN. Pt has history of progressive renal dysfunction with long-term use of Slayton due to effectiveness for stabilizing her mood condition. Psychiatry consulted for evaluation, medication recommendations. Chief Complaint SYLVAIN History of Present Illness Labs reviewed: Hgb 9.7 stable, Na 147, Cr 3.75 and trending down. Cr Clearance of 11.2, EGFR 12. Mg 5.9. BUN 32. Alk phos 132. Trops, transaminases, lipase within expected limits. UA clear. Slayton level of 1.2 on 03/06/24. On interview pt is alert and reactive. [place] is [place] and has difficulty verbalizing due to TD and required written statements to communicate. Known to me from past hospitalization. She was updated about current plan to hold Slayton given SYLVAIN. No acute concerns reported to us. Collateral from [facility] reports no change in medications from discharge medications from last hospitalization: -Slayton 300mg daily Carpiprazine 3mg BID -Olanzapine 5mg QAM, 20mg QDD -Lamotrigine 150mg BIDPM -Lorazepam 1mg HS Allergies Allergy/AdvReac Type Severity Reaction Status Date / Time clozapine Allergy Severe TOXIC Verified 12/28/23 22:25 REACTION lurasidone Allergy Severe TOXIC Verified 12/28/23 22:25 REACTION aspirin Allergy Unknown UNKNOWN Verified 12/28/23 22:25 REACTION ibuprofen Allergy Unknown UNKNOWN Verified 12/28/23 22:25 REACTION latex Allergy Unknown UNKNOWN Verified 12/28/23 22:25 Penicillins Allergy Unknown UNKNOWN Verified 12/28/23 22:25 REACTION Sulfa (Sulfonamide Allergy Unknown UNKNOWN Verified 12/28/23 22:25 Antibiotics) REACTION Home Medications Medication Instructions Recorded Confirmed Type multivitamin (Multiple Vitamins 1 tab PO QAM ##0 11/17/17 03/05/24 History tablet) blood sugar diagnostic (OneTouch #100 ea 08/25/20 08/29/23 Rx Ultra Blue Test Strip) blood-glucose meter (OneTouch #1 ea 08/25/20 08/29/23 Rx Ultra2 Meter) cholecalciferol (vitamin D3) 25 25 mcg PO QAM 08/26/20 03/05/24 History mcg (1,000 unit) tablet (Vitamin D3) atorvastatin 10 mg tablet 10 mg PO HS #90 tabs 03/09/21 03/05/24 Rx blood sugar diagnostic #400 ea 03/09/21 08/29/23 Rx blood-glucose meter (OneTouch #1 ea 03/09/21 08/29/23 Rx Ultra2 Meter) omeprazole 20 mg capsule,delayed 20 mg PO QAM #90 caps 03/09/21 03/05/24 Rx release lancets 30 gauge (OneTouch Delica #100 ea 03/18/21 08/29/23 Rx Plus Lancet) diaper,brief,adult,disposable #120 ea 08/07/21 08/29/23 Rx (Select Briefs) sitagliptin phosphate 25 mg tablet 25 mg PO QAM 08/07/21 03/05/24 History (Januvia) diclofenac sodium 1 % topical gel 4 g EXT QID #100 grams 08/31/21 12/28/23 Rx (Voltaren Arthritis Pain) tramadol 50 mg tablet 100 mg PO TIDM 08/06/22 03/05/24 History acetaminophen 325 mg tablet 650 mg PO QID PRN Fever Or Pain 07/14/23 03/05/24 History (Tylenol) benzocaine 20 % mucosal gel 1 applic mucous membrane Q6H PRN 07/14/23 03/05/24 History (Anbesol (benzocaine) Maximum Mouth Pain Strength) cariprazine 3 mg capsule (Vraylar) 3 mg PO BIDM 07/14/23 03/05/24 History cyanocobalamin (vitamin B-12) 1,000 mcg PO QAM 07/14/23 03/05/24 History 1,000 mcg tablet diclofenac sodium 1 % topical gel 1 ea topical QID 07/14/23 03/05/24 History lamotrigine 150 mg tablet 150 mg PO BIDM 07/14/23 03/05/24 History montelukast 10 mg tablet 10 mg PO HS 07/14/23 03/05/24 History olanzapine 20 mg tablet 20 mg PO DAILY 07/14/23 03/05/24 History olanzapine 5 mg tablet (Zyprexa) 5 mg PO QAM 07/14/23 03/05/24 History bisacodyl 10 mg rectal suppository 10 mg VT DAILY PRN Constipation 08/23/23 03/05/24 History (Dulcolax (bisacodyl)) magnesium hydroxide 400 mg/5 mL 30 ml PO DAILY 08/23/23 03/05/24 History oral suspension (Milk of Magnesia) sodium phosphates 19 gram-7 118 ml VT DAILY PRN Constipation 08/23/23 03/05/24 History gram/118 mL enema (Fleet Enema) lorazepam 1 mg tablet 1 mg PO HS #0 tabs 01/09/24 03/05/24 Rx amlodipine 5 mg tablet 5 mg PO QAM 03/05/24 03/05/24 History lithium carbonate 300 mg capsule 300 mg PO QAM 03/05/24 03/05/24 History lorazepam 1 mg tablet 1 mg PO DAILY PRN Anxiety 03/05/24 03/05/24 History mineral oil-isopropyl myristat 1 applic topical BID 03/05/24 03/05/24 History lotion Patient History Medical History Elevated troponin Acute head trauma Anemia Psychosis UTI (urinary tract infection) Bipolar disorder Anemia History of COVID-19 EKG abnormalities Spondylolisthesis CKD (chronic kidney disease) Anxiety GERD (gastroesophageal reflux disease) Osteoporosis Osteoarthritis Asthma Bipolar disorder Hyperparathyroidism Type II diabetes mellitus Hyperlipemia Surgical History History of colonoscopy History of tooth extraction History of cataract surgery Status post breast lumpectomy History of tubal ligation Family History Father Myocardial infarction Brother Rheumatoid arthritis Other Cancer Diabetes Heart disease Hypertension Lung disease Denies family history of Colon cancer Ovarian cancer Prostate cancer Breast cancer Social History Smoking Status: Never smoker Tobacco Type: Cigarettes Second Hand Exposure: No; Do You Dip or Chew Tobacco: No; Hx Alcohol Use: No Hx Substance Use: No Preferred Language: Belarusian Communication Ability: Impaired Communication Ability Comment: per facility pt unable to sign consents, will need POA to sign Visual Impairment: Partially Limited Hearing Ability: Family Practice Physician Assistant Required: No Beliefs That Will Affect Care: None marital status: Single Current Living Situation: [facility] Current Living Situation Comment: [facility] current occupational status: disabled Other Information That Helps Us Care for You: No Feels Safe at Home: Yes Safety Concerns: Feels Safe At This Time Childhood Exposure to Second-Hand Smoke: No Diet: regular Dental Care, Regularly: No Physical Activity Frequency: 5-6 Times per Week Seatbelt Use: always Sunscreen Use: No Assistive Devices: Wheelchair Physical Exam Mental Examination: Appearance: Disheveled Eye Contact: Maintains Eye Contact Motor Behavior: Restless (at times), Wringing Hands and Tremulous (on movement) Speech: Slurred Mood: Calm and Irritable (briefly) Affect: Congruent Thought Process: Linear Hallucinations: None Insight: Poor (to limited) Judgement: Poor (to limited) Vital Signs (Past 24 Hours): Last Vital Signs Temp 36.4 C L 03/06/24 11:29 Pulse 56 L 03/06/24 11:29 Resp 16 03/06/24 11:29 BP 162/52 H 03/06/24 11:29 Pulse Ox 96 03/06/24 11:29 O2 Del Method Room Air 03/06/24 11:29 Results & Data (PSY) Medications Administered Amlodipine Besylate (Amlodipine Besylate 5 Mg Tab) [facility]: 04/05/24 08:59 Last Admin: 03/06/24 09:44 Dose: 5 mg Documented By: DLR Insulin Aspart (Insulin Aspart Per Unit Charge) 0 units SC [facility] Stop: 04/04/24 21:37 Last Admin: 03/06/24 11:50 Dose: Not Given Documented By: Admin: 03/06/24 08:29 Dose: Not Given Documented By: Admin: 03/05/24 21:50 Dose: Not Given Documented By: AMM Olanzapine (Olanzapine Zydis 5 Mg Orally Dis. Tab) [facility] [place]: 04/05/24 08:59 Last Admin: 03/06/24 08:56 Dose: 5 mg Documented By: DLR Pantoprazole Sodium (Pantoprazole 40 Mg Tab) [facility] [place]: 04/05/24 08:59 Last Admin: 03/06/24 09:44 Dose: 40 mg Documented By: DLR [place] [address] IN/OBS CONSULT LVL 4,60M Patient Type New History Detailed Exam Detailed Medical Decision Making High Complexity Diagnoses Schizoaffective disorder, bipolar type F25.0 Acute kidney injury superimposed on chronic kidney disease N17.9; N18.9 Acute urinary retention R33.8 Slayton nephropathy T56.891A; N14.19 Tardive dyskinesia G24.01
[2024-03-06] MEDS: SODIUM CHLORIDE 0.45 % 1,000 ML IV SCH (13:57)
--- NOTE | 2024-03-06 14:14 | Electrocardiogram Report ---
Test Reason : Blood Pressure : */* mmHG Vent. Rate : 44 BPM Atrial Rate : 44 BPM P-R Int : 184 ms QRS Dur : 136 ms QT Int : 544 ms P-R-T Axes : 65 44 159 degrees QTcB Int : 465 ms Marked sinus bradycardia with Premature atrial complexes in a pattern of bigeminy Non-specific intra-ventricular conduction block T wave abnormality, consider anterolateral ischemia Abnormal ECG When compared with ECG of 28-Dec-2023 20:20, Premature atrial complexes are now Present Vent. rate has decreased by 39 bpm T wave inversion now evident in Anterolateral leads Confirmed by Luis F Vieyra ([id number]) on 03/06/2024 2:14:19 PM Referred By: [facility] Confirmed By: Luis F Vieyra
--- NOTE | 2024-03-06 15:41 | Hospitalist Progress Note ---
Date of Service March 06, 2024 Assessment & Plan (1) Ileus: Plan: Apparently was being given a bowel regimen to include milk of magnesia prior to admission hence the hypermagnesemia CT abdomen/pelvis shows ileus and some stool, but no bowel obstruction Her abdomen is with positive bowel sounds and is soft, nontender, however she did have 1 episode of vomiting on 03/06 Okay to give clear fluids as tolerated Follow clinically for evidence of nausea/vomiting or for bowel function with bowel movements (2) Acute kidney injury superimposed on chronic kidney disease: Plan: Acute kidney injury superimposed on CKD stage IV- Creatinine 4.25, with baseline 2.14, improved today down to 3.5 after receiving IV fluids Likely secondary to decreased oral intake associated with ileus but also on lithium and could have lithium toxicity. CT abdomen/pelvis without obstruction [place] level is 1.2-holding lithium With 3+ protein on urinalysis Also with hypernatremia which may be from diabetes insipidus associated with lithium use Appreciate nephrology consultation Continue Ham catheter Follow BMP Nephrology ordered IV Lasix along with half-normal saline for her hypermagnesemia and hypernatremia Hold any further milk of magnesia With hypocalcemia-was given calcium gluconate 1 g IV x 1 If blood pressures remain elevated, recommend increasing amlodipine 5 mg daily to 10 mg daily (3) Hypermagnesemia: Plan: Quite elevated at 6.3 on admission-now improving down to 5.5 with IV Lasix and IV fluids Follow magnesium level again in the morning (4) Schizoaffective disorder, bipolar type: Plan: Consult psychiatry today given that lithium is on hold and she has a long history of acute issues with psychosis Plan to continue holding lithium for now and check daily lithium levels, eventual restarting of lithium Her lithium dose was increased to 300 mg daily at her last admission about 6 weeks ago (previously she was on it 3 times per week)-psychiatry feels the benefit outweighs the risk of being off of it Lowered the nighttime dose of olanzapine to 15 mg for renal dosing, continue 5 mg in the morning Continue Lamictal 150 Mg p.o. twice daily-restarted Continue/resume 1 mg of lorazepam p.o. at bedtime and daily as needed Resume home cariprazine 3 mg p.o. twice daily Follow clinically (5) Sinus bradycardia: Plan: Heart rate initially was noted to be in the upper 30s upon arrival to the ED Heart rate has improved to the 50s and is stable, she is asymptomatic Most recent echocardiogram on 08/10/2021, with ejection fraction 65-70% Avoid beta-blockers (6) Hypertension: Plan: Blood pressures are elevated Resume home amlodipine 5 mg daily and may increase to 10 mg daily if not improving Plan Diabetes [id number] with hemoglobin A1c of only 5.6% Hold Januvia Placed on Accu-Cheks with NovoLog SSI DVT prophylaxis-add heparin SQ 5000 units every 12 hours Disposition-continued stay in PCU, eventual [facility] Admission and Anticipated Discharge Date Admission Date: March 05, 2024 Subjective Patient denies abdominal pain but did vomit once just before I came to see her after tolerating clear liquids diet earlier in the day. Patient did lose one of her molar teeth today Telemetry with sinus bradycardia and PACs with rates in the 50s to 60s Physical Exam Constitutional: + disheveled; no acute distress Eyes: + anicteric sclerae Respiratory: normal respiratory effort, lungs clear to auscultation Cardiovascular: Rate/Rhythm: regular rhythm and + bradycardic Extremities: no edema Gastrointestinal (Abdomen): normal bowel sounds, soft, nontender, no hepatosplenomegaly Psychiatric: Orientation: alert, oriented to person, oriented to place and cooperative Genitourinary: Ham catheter in place draining very light-colored yellow urine Results & Data Results & Data Vital Signs (Past 12 Hours) Vital Signs Temp Pulse Pulse Resp BP BP Pulse Ox 03/06/24 15:36 37.1 C 82 17 181/70 H 91 03/06/24 13:51 55 L 03/06/24 11:29 36.4 C L 56 L 16 162/52 H 96 03/06/24 10:12 62 03/06/24 08:51 36.7 C 77 18 170/89 H 97 O2 Del Method 03/06/24 15:36 Room Air 03/06/24 13:51 03/06/24 11:29 Room Air 03/06/24 10:12 03/06/24 08:51 Room Air Laboratory Results CBC, BMP x 2, LFTs, hemoglobin A1c, magnesium x 2, lithium level reviewed PG Care Time/CCT Total # of Minutes Spent Total Time Spent with Patient: Total time spent is greater than 50% in coordination of care (as documented) at patient's floor/unit and/or counseling patient: Coding Level of Care Code 20193 SUB INP/OBS CARE 3/50MIN Diagnoses Ileus K56.7 Acute kidney injury superimposed on chronic kidney disease N17.9; N18.9 Hypermagnesemia E83.41 Schizoaffective disorder, bipolar type F25.0 Sinus bradycardia R00.1 Hypertension I10
[2024-03-06 16:33] LABS: BUN Creatinine Ratio 7.8 (10-20); Calcium 8.7 mg/dl (8.6-10.3); Creatinine Clr Calc Pharmacy 11.8 ml/min; Potassium 4.2 mmol/L (3.5-5.1)
[2024-03-06 16:45] LABS: Albumin Level 3.6 gm/dl (3.4-5.0); Magnesium 5.3 mg/dl (1.7-2.4); Phosphorus 4.6 mg/dl (2.5-4.9)
[2024-03-06] MEDS: CARIPRAZINE HCL 3 MG CAP PO SCH (16:54)
[2024-03-06] MEDS: lamoTRIgine 100 MG TAB PO SCH (16:55)
[2024-03-06] MEDS: HEPARIN SOD 5,000 UNIT/0.5 ML VIAL SQ SCH (20:05)
[2024-03-06] MEDS: LORazepam 1 MG TAB PO SCH (20:05)
[2024-03-06] MEDS: ATORVASTATIN 10 MG TAB PO SCH (20:06)
[2024-03-06] MEDS: OLANZapine 5 MG TABLET PO SCH (20:06)
[2024-03-07 06:30] LABS: Hematocrit (blood only) 30.8 % (37.0-47.0); Hemoglobin 9.6 g/dl (12.0-16.0); Immature Granulocytes # (auto) 0.05 K/uL (0.01-0.20); Immature Granulocytes % (auto) 0.6 %; Lymphocytes # (auto) 0.99 K/uL (1.20-3.40); Mean Corpuscular Hemoglobin 30.3 pg (25.0-34.0); Mean Corpuscular Hgb Conc 31.2 g/dL (32.0-36.0); Mean Corpuscular Volume 97.2 fL (80.0-100.0); Mean Platelet Volume 9.8 fL (9.4-12.4); Monocytes # (auto) 0.74 K/uL (0.11-0.59); Monocytes % (auto) 8.2 %; Neutrophils # (auto) 7.24 K/uL (1.40-6.50); Neutrophils % (auto) 80.2 %; Platelet Count 347 K/uL (130-400); RDW Coefficient of Variation 15.1 % (11.5-14.5); RDW Standard Deviation 53.7 fL (36.4-46.3); Red Blood Count 3.17 M/uL (4.20-5.40); White Blood Count 9.02 K/ul (4.8-10.8)
[2024-03-07 06:43] LABS: Albumin Globulin Ratio 1.1 (0.9-2); Albumin Level 3.2 gm/dl (3.4-5.0); BUN Creatinine Ratio 8.1 (10-20); Bilirubin,Total 0.4 mg/dl (0.2-1.0); Calcium 8.2 mg/dl (8.6-10.3); Creatinine Clr Calc Pharmacy 12.2 ml/min; Globulin 2.8 gm/dl (2.5-4.0); Magnesium 4.6 mg/dl (1.7-2.4)
--- NOTE | 2024-03-07 10:11 | Nephrology Progress Note ---
Date of Service March 07, 2024 Assessment & Plan (1) Acute kidney injury superimposed on chronic kidney disease: (2) Hypermagnesemia: (3) Hypernatremia: (4) Hypocalcemia: (5) Chronic kidney disease, stage 4 (severe): (6) Hypertension: Plan 73 year-old female with history of stage IV CKD, Hypernatremia, admitted on 03/05/24 with outpatient lab showing SYLVAIN,hypernatremia and hypermagnesemia.In ER labs showed creatinine was 4.4, magnesium 6.3 and mild hypernatremia. h/o stage 4 CKD, b/l cr has been around 2.5 mg/dl. Magnesium was 6.3 on admission which slightly improved to 5.4 on labs this morning but again went up to 5.5. Hypomagnesia most likely secondary to advanced CKD and use of milk of magnesia. Mild hypocalcemia noted in the setting of hypercalcemia. 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 Lab this morning showed kidney function relatively stable and magnesium slightly improved. Sodium normalized but she continues to have high urine output. [place] has been on hold since admission and level was 1.2. Blood pressure improved. --continue on half-normal saline and encourage p.o. intake. Repeat magnesium level in the afternoon.. --Continue on amlodipine 5 mg daily and if blood pressure remains elevated, increase to 10 mg daily. --Since the decision as to resume lithium at some point as other mood stabilizer and antipsychotic medications did not work very well for her, she needs to avoid all magnesium containing antiacids and avoid magnesium supplement. If kidney function continue to worsen at some point show may need to consider renal replacement therapy. Discussed with her significant other who will discuss with her immediate family to make decision. Admission and Anticipated Discharge Date Admission Date: March 05, 2024 Zoie Gutierrez was seen evaluated this morning with her significant other at bedside. She looks comfortable, denied any specific symptoms. Has been on IV fluid and she has been trying to drink more, continues to have high urine output and overall significantly net negative. Magnesium slightly improved to 4.6. Kidney function relatively stable, creatinine 3.5. Review of Systems Review of Systems: Detailed review of system was done, she looked comfortable and denied any symptoms.. Physical Exam Constitutional: WD/WN, vitals as above no acute distress Eyes: + anicteric sclerae Neck: normal visual inspection Respiratory: no respiratory distress Auscultation: lungs clear to auscultation bilaterally Musculoskeletal: Extremities: extremities normal to inspection Skin: no rashes, warm and dry Neurologic: no focal motor deficits Psychiatric: Orientation: alert and cooperative Results & Data Vital Signs (Past 12 Hours) Vital Signs Temp Pulse Pulse Resp BP BP Pulse Ox 03/07/24 07:30 37.5 C 65 14 147/72 H 97 03/07/24 03:30 37.5 C 72 18 150/56 H 92 03/06/24 22:25 36.9 C 66 18 141/54 H 93 03/06/24 22:15 88 O2 Del Method 03/07/24 07:30 Room Air 03/07/24 03:30 Room Air 03/06/24 22:25 Room Air 03/06/24 22:15 PG Care Time/CCT Total # of Minutes Spent Total Time Spent with Patient: Total time spent is greater than 50% in coordination of care (as documented) at patient's floor/unit and/or counseling patient: Coding Level of Care Code 46545 SUB INP/OBS CARE 2/35MIN Diagnoses Acute kidney injury superimposed on chronic kidney disease N17.9; N18.9 Hypermagnesemia E83.41 Hypernatremia E87.0 Hypocalcemia E83.51 Chronic kidney disease, stage 4 (severe) N18.4 Hypertension I10
[2024-03-07] MEDS: ACETAMINOPHEN 325 MG TAB PO PRN (11:24)
--- NOTE | 2024-03-07 14:41 | Hospitalist Progress Note ---
Date of Service March 07, 2024 Assessment & Plan (1) Acute kidney injury superimposed on chronic kidney disease: Plan: Acute kidney injury superimposed on CKD stage IV- On admission, creatinine 4.25, with baseline 2.14, continues to improve down to 3.4 after receiving IV fluids Likely secondary to decreased oral intake associated with ileus but also on lithium -could have lithium toxicity. CT abdomen/pelvis without obstruction [place] level is 1.2-holding lithium and checking daily lithium levels With 3+ protein on urinalysis Also with hypernatremia which may be from diabetes insipidus associated with lithium use-now improved Appreciate nephrology consultation-received 1 dose IV lasix along with hypotonic IVFs on 03/06 for hypermagnesemia which is improving Continue Ham catheter Follow BMP Hold any further milk of magnesia If blood pressures remain elevated, recommend increasing amlodipine 5 mg daily to 10 mg daily Nephrology says may need DUE DILIGENCE COORDINATOR in future if renal function worsening and has to remain on lithium for mood stabilizer (2) Ileus: Plan: Apparently was being given a bowel regimen to include milk of magnesia prior to admission hence the hypermagnesemia CT abdomen/pelvis shows ileus and some stool, but no bowel obstruction Her abdomen is with positive bowel sounds and is soft, nontender, however she did have 1 episode of vomiting on 03/06-none further since then, no pain, feels hungry-advance diet to regular/easy to chew Follow clinically for evidence of nausea/vomiting or for bowel function with bowel movements Avoid magnesium containing laxatives moving forward (3) Hypermagnesemia: Plan: Quite elevated at 6.3 on admission-now improving down to 4.6 with IV Lasix and IV fluids Follow magnesium level this afternoon and again in the morning Avoid all magnesium supplements (4) Schizoaffective disorder, bipolar type: Plan: Consult psychiatry given that lithium is on hold and she has a long history of acute issues with psychosis Plan to continue holding lithium for now and check daily lithium levels, eventual restarting of lithium Her lithium dose was increased to 300 mg daily at her last admission about 6 weeks ago (previously she was on it 3 times per week)-psychiatry feels the benefit outweighs the risk of being off of it Lowered the nighttime dose of olanzapine to 15 mg for renal dosing, continue 5 mg in the morning Continue Lamictal 150 Mg p.o. twice daily Continue 1 mg of lorazepam p.o. at bedtime and daily as needed Continue home cariprazine 3 mg p.o. twice daily Follow clinically (5) Sinus bradycardia: Plan: Heart rate initially was noted to be in the upper 30s upon arrival to the ED, asymptomatic. Maybe vagal reaction to GI issues? Heart rate has improved to the 60-70s on tele Most recent echocardiogram on 08/10/2021, with ejection fraction 65-70% Avoid beta-blockers Continue tele monitoring (6) Hypertension: Plan: Blood pressures are elevated but improved Continue home amlodipine 5 mg daily and may increase to 10 mg daily if not improving (7) Anemia: Plan: Hgb 9.6, borderline macrocytic. Fe levels here normal Check B12, folate in AM Probably anemia of chronic renal disease No bleeding from anywhere Plan Diabetes [id number] with hemoglobin A1c of only 5.6% Hold Januvia Continue Accu-Cheks with NovoLog SSI DVT prophylaxis- heparin SQ 5000 units every 12 hours Disposition-continued stay in PCU, eventual discharge back to her home at the senior care once renal function improving and tolerating diet Admission and Anticipated Discharge Date Admission Date: March 05, 2024 Subjective Pt feeling better, asks when the Ham will come out. Used marker and paper to communicate. Wants to try eating some oranges and peanut butter crackers Tele with NSR rates 60-70s Physical Exam Constitutional: no acute distress Eyes: + anicteric sclerae Respiratory: normal respiratory effort, lungs clear to auscultation Cardiovascular: Rate/Rhythm: regular rate and regular rhythm Extremities: no edema Gastrointestinal (Abdomen): normal bowel sounds, soft, nontender, no hepatosplenomegaly Psychiatric: Orientation: alert, oriented to person, oriented to place and cooperative Results & Data Results & Data Vital Signs (Past 12 Hours) Vital Signs Temp Pulse Pulse Resp BP BP Pulse Ox 03/07/24 10:48 37.2 C 63 16 156/74 H 96 03/07/24 07:30 37.5 C 65 14 147/72 H 97 03/07/24 03:30 37.5 C 72 18 150/56 H 92 O2 Del Method 03/07/24 10:48 Room Air 03/07/24 07:30 Room Air 03/07/24 03:30 Room Air Laboratory Results CBC, BMP, magnesium reviewed PG Care Time/CCT Total # of Minutes Spent Total Time Spent with Patient: Total time spent is greater than 50% in coordination of care (as documented) at patient's floor/unit and/or counseling patient: Coding Level of Care Code 01168 SUB INP/OBS CARE 235MIN Diagnoses Acute kidney injury superimposed on chronic kidney disease N17.9; N18.9 Ileus K56.7 Hypermagnesemia E83.41 Schizoaffective disorder, bipolar type F25.0 Sinus bradycardia R00.1 Hypertension I10 Anemia D64.9 Anemia type: unspecified type (7) Anemia Anemia type: unspecified type Qualified Code(s): D64.9 - Anemia, unspecified
--- NOTE | 2024-03-07 15:27 | Psychiatric Progress Note ---
Date of Service March 07, 2024 Impression / Recommendations Impression 73-year-old woman with history of schizoaffective disorder, bipolar type, stage IV kidney disease presents from group home ([facility]) after abnormal lab work for elevated Cr. Here for SYLVAIN. Pt has history of progressive renal dysfunction with long-term use of Ruby due to effectiveness for stabilizing her mood condition. Psychiatry consulted for evaluation, medication recommendations. Strong psychiatric indication to continue lithium for mood stabilization versus other treatments due to treatment failures with other agents and concern for decompensation and significant dysfunction if lithium d/c long-term. 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 Consider hemodialysis moving forward. A:Labs reviewed: Stable sodium and magnesium. Ruby resulted at 0.8. Creatinine 3.46 and trending down. Patient has been hydrating. Nephrology considering renal replacement therapy. Continue to hold lithium with plan to restart tomorrow at 150 mg daily. Continue daily lithium blood draws. Recommend artificial tears as needed for eye dryness. Overall, I spent a total of 30 minutes with this case including review of chart records, nursing report, review of lab work, direct evaluation of the patient at bedside, counseling the patient, discussion of the patient with the hospitalist provider, discussion with the psychiatric liaison during clinical rounds, and documentation in the electronic health record. (1) Schizoaffective disorder, bipolar type: (2) Acute kidney injury superimposed on chronic kidney disease: (3) Acute urinary retention: (4) Ruby nephropathy: (5) Tardive dyskinesia: Plan -Restart Ruby 150mg daily tomorrow -Ruby level, Cr daily -Olanzapine 5mg QAM, 15mg HS -Lamotrigine 150mg BIDM -Lorazepam 1mg HS -Cariprazine 3mg BIDM -Lorazepam 1mg PO/IM BID PRN for anxiety -Haloperidol 2.5mg PO/IM BID PRN for agitation -Will continue to follow patient Interval History Identifying Information 73-year-old woman with history of schizoaffective disorder, bipolar type, stage IV kidney disease presents from group home ([facility]) after abnormal lab work for elevated Cr. Here for SYLVAIN. Pt has history of progressive renal dysfunction with long-term use of Ruby due to effectiveness for stabilizing her mood condition. Psychiatry consulted for evaluation, medication recommendations. Chief Complaint "Okay" Subjective Subjective On approach patient is alert and reactive. She complains of increased pressure from her Ham catheter. Says that her eyes are dry and causing blurry vision and was getting drops in group home. Was explained to her that her kidney function is stabilizing and planning to restart lithium soon. Denies having any pain. Physical Exam Mental Examination Appearance: Disheveled Eye Contact: Maintains Eye Contact Motor Behavior: Restless (at times), Wringing Hands and Tremulous (on movement) Speech: Slurred Mood: Calm Affect: Congruent Thought Process: Linear Hallucinations: None Insight: Poor (to limited) Judgement: Poor (to limited) Vital Signs (Past 24 Hours) Last Vital Signs Temp 36.7 C 03/07/24 15:00 Pulse 67 03/07/24 15:00 Resp 18 03/07/24 15:00 BP 159/78 H 03/07/24 15:00 Pulse Ox 96 03/07/24 15:00 O2 Del Method Room Air 03/07/24 15:00 Results & Data ([facility]) Laboratory Results Laboratory Results - last 24 hr 03/06/24 03/06/24 03/06/24 15:56 16:03 19:35 WBC RBC Hgb Hct MCV MCH MCHC RDW Std Deviation RDW Coeff of Rachel Plt Count MPV Immature Gran % (Auto) Neut % (Auto) Lymph % (Auto) [place] % (Auto) Eos % (Auto) Baso % (Auto) Neut # (Auto) Lymph # (Auto) [place] # (Auto) Eos # (Auto) Baso # (Auto) Immature Gran # (Auto) Sodium 144 Potassium 4.2 Chloride 112 H Carbon Dioxide 24 Anion Gap 8 BUN 28 H Creatinine 3.57 H Est Cr Clr Drug Dosing 11.8 eGFR 13.08 BUN/Creatinine Ratio 7.8 L Glucose 118 H POC Glucose 123 H 127 H Calcium 8.7 Phosphorus 4.6 Magnesium 5.3 H* Total Bilirubin AST ALT Alkaline Phosphatase Total Protein Albumin 3.6 Globulin Albumin/Globulin Ratio Ruby 03/07/24 03/07/24 03/07/24 06:03 07:20 11:19 WBC 9.02 RBC 3.17 L Hgb 9.6 L Hct 30.8 L MCV 97.2 MCH 30.3 MCHC 31.2 L RDW Std Deviation 53.7 H RDW Coeff of Rachel 15.1 H Plt Count 347 MPV 9.8 Immature Gran % (Auto) 0.6 Neut % (Auto) 80.2 Lymph % (Auto) 11.0 [place] % (Auto) 8.2 Eos % (Auto) 0.0 Baso % (Auto) 0.0 Neut # (Auto) 7.24 H Lymph # (Auto) 0.99 L [place] # (Auto) 0.74 H Eos # (Auto) 0.00 Baso # (Auto) 0.00 Immature Gran # (Auto) 0.05 Sodium 144 Potassium 4.0 Chloride 112 H Carbon Dioxide 25 Anion Gap 7 BUN 28 H Creatinine 3.46 H Est Cr Clr Drug Dosing 12.2 eGFR 13.58 BUN/Creatinine Ratio 8.1 L Glucose 98 POC Glucose 96 98 Calcium 8.2 L Phosphorus Magnesium 4.6 H Total Bilirubin 0.4 AST 23 ALT 23 Alkaline Phosphatase 150 H Total Protein 6.0 Albumin 3.2 L Globulin 2.8 Albumin/Globulin Ratio 1.1 Ruby 0.8 03/07/24 14:46 WBC RBC Hgb Hct MCV MCH MCHC RDW Std Deviation RDW Coeff of Rachel Plt Count MPV Immature Gran % (Auto) Neut % (Auto) Lymph % (Auto) [place] % (Auto) Eos % (Auto) Baso % (Auto) Neut # (Auto) Lymph # (Auto) [place] # (Auto) Eos # (Auto) Baso # (Auto) Immature Gran # (Auto) Sodium Potassium Chloride Carbon Dioxide Anion Gap BUN Creatinine Est Cr Clr Drug Dosing eGFR BUN/Creatinine Ratio Glucose POC Glucose Calcium Phosphorus Magnesium Pending Total Bilirubin AST ALT Alkaline Phosphatase Total Protein Albumin Globulin Albumin/Globulin Ratio Ruby Current Inpatient Medications Current Inpatient Medications: Current Inpatient Medications Acetaminophen (Acetaminophen 325 Mg Tab) 650 mg PO QID PRN PRN Reason: Fever Or Pain Stop: 04/05/24 08:11 Last Admin: 03/07/24 11:24 Dose: 650 mg Amlodipine Besylate (Amlodipine Besylate 5 Mg Tab) 5 mg PO QAM [facility] Stop: 04/05/24 08:59 Last Admin: 03/07/24 08:23 Dose: 5 mg Atorvastatin Calcium (Atorvastatin 10 Mg Tab) 10 mg PO HS [facility] Stop: 04/05/24 20:59 Last Admin: 03/06/24 20:06 Dose: 10 mg Cariprazine (Cariprazine Hcl 3 Mg Cap) 3 mg PO BIDM [facility] Stop: 04/05/24 16:59 Last Admin: 03/07/24 08:22 Dose: 3 mg Dextrose (Dextrose 50% 50 Ml Syringe) 25 - 50 ml IV UD PRN; Protocol PRN Reason: Hypoglycemia Protocol Stop: 04/04/24 21:37 Glucagon (Glucagon For Inj 1 Mg Vial) 1 mg SQ UD PRN; Protocol PRN Reason: Hypoglycemia Protocol Stop: 04/04/24 21:37 Glucose (Glucose 40% Gel 15 Gm Tube) 15 - 30 gm PO UD PRN; Protocol PRN Reason: Hypoglycemia Protocol Stop: 04/04/24 21:37 Glucose (Glucose 10 Tab/Tube) 4 - 8 tab PO UD PRN; Protocol PRN Reason: Hypoglycemia Protocol Stop: 04/04/24 21:37 Heparin Sodium (Porcine) (Heparin Sod 5,000 Unit/0.5 Ml Vial) 5,000 units SQ Q12 [facility] Stop: 04/05/24 20:59 Last Admin: 03/07/24 09:34 Dose: 5,000 units Insulin Aspart (Insulin Aspart Per Unit Charge) 0 units SC ACHS [facility] Stop: 04/04/24 21:37 Last Admin: 03/07/24 11:47 Dose: Not Given Lamotrigine (Lamotrigine 100 Mg Tab) 150 mg PO BIDM [facility] Stop: 04/05/24 16:59 Last Admin: 03/07/24 08:23 Dose: 150 mg Lorazepam (Lorazepam 1 Mg Tab) 1 mg PO DAILY PRN PRN Reason: Anxiety Stop: 04/05/24 08:11 Lorazepam (Lorazepam 1 Mg Tab) 1 mg PO HS [facility] Stop: 04/05/24 20:59 Last Admin: 03/06/24 20:05 Dose: 1 mg Miscellaneous (Carbohydrates For Hypoglycemia ) 15 - 30 gm PO UD PRN PRN Reason: Hypoglycemia Protocol Stop: 04/04/24 21:37 Olanzapine (Olanzapine Zydis 5 Mg Orally Dis. Tab) 5 mg PO QAM [facility] Stop: 04/05/24 08:59 Last Admin: 03/07/24 08:24 Dose: 5 mg Olanzapine (Olanzapine 5 Mg Tablet) 15 mg PO HS [facility] Stop: 04/05/24 20:59 Last Admin: 03/06/24 20:06 Dose: 15 mg Ondansetron HCl (Ondansetron 4 Mg Od Tab) 4 mg PO Q6 PRN PRN Reason: Nausea And Vomiting Stop: 04/04/24 21:37 Pantoprazole Sodium (Pantoprazole 40 Mg Tab) [address] [facility] Stop: 04/05/24 08:59 Last Admin: 03/07/24 08:24 Dose: 40 mg
--- NOTE | 2024-03-07 16:20 | Communication Note ---
Date of Service: March 07, 2024 Discussed care with Nephrology-there is concern from Nephrology about resuming lithium just yet when magnesium level is still quite high. WIll hold off on resuming lithium 150mg daily for at least another day or so and monitor magnesium levels. SHe is also not a great candidate for hemodialysis moving forward because of her inability to hold still, frequent movements, may be dangerous for dialysis catheter or fistula in future.
[2024-03-08 08:17] LABS: BUN Creatinine Ratio 8.4 (10-20); Calcium 8.7 mg/dl (8.6-10.3); Creatinine Clr Calc Pharmacy 12.7 ml/min; Potassium 4.2 mmol/L (3.5-5.1)
[2024-03-08 08:19] LABS: Albumin Globulin Ratio 1.2 (0.9-2); Albumin Level 3.2 gm/dl (3.4-5.0); BUN Creatinine Ratio 8.4 (10-20); Bilirubin,Total 0.3 mg/dl (0.2-1.0); Calcium 8.8 mg/dl (8.6-10.3); Creatinine Clr Calc Pharmacy 12.6 ml/min; Globulin 2.7 gm/dl (2.5-4.0); Magnesium 4.5 mg/dl (1.7-2.4); Potassium 4.1 mmol/L (3.5-5.1); Total Protein 5.9 gm/dl (6.0-8.3)
[2024-03-08 08:28] LABS: Hematocrit (blood only) 31.8 % (37.0-47.0); Hemoglobin 9.9 g/dl (12.0-16.0); Mean Corpuscular Hgb Conc 31.1 g/dL (32.0-36.0); Mean Corpuscular Volume 96.4 fL (80.0-100.0); Mean Platelet Volume 10.2 fL (9.4-12.4); Platelet Count 326 K/uL (130-400); RDW Coefficient of Variation 14.8 % (11.5-14.5); RDW Standard Deviation 52.7 fL (36.4-46.3); White Blood Count 6.79 K/ul (4.8-10.8)
[2024-03-08 08:33] LABS: Basophils # (auto) 0.01 K/uL (0.00-0.20); Basophils % (auto) 0.1 %; Immature Granulocytes # (auto) 0.08 K/uL (0.01-0.20); Immature Granulocytes % (auto) 1.2 %; Lymphocytes # (auto) 0.76 K/uL (1.20-3.40); Lymphocytes % (auto) 11.2 %; Monocytes # (auto) 0.53 K/uL (0.11-0.59); Monocytes % (auto) 7.8 %; Neutrophils # (auto) 5.41 K/uL (1.40-6.50); Neutrophils % (auto) 79.7 %
--- NOTE | 2024-03-08 08:58 | Hospitalist Progress Note ---
Date of Service March 08, 2024 Assessment & Plan (1) Acute kidney injury superimposed on chronic kidney disease: Plan: Acute kidney injury superimposed on CKD stage IV- On admission, creatinine 4.25, with baseline 2.14, continues to improve down to 3.4 after receiving IV fluids Likely secondary to decreased oral intake associated with ileus but also on lithium -could have lithium toxicity. CT abdomen/pelvis without obstruction [place] level is 1.2-holding lithium and checking daily lithium levels With 3+ protein on urinalysis Also with hypernatremia which may be from diabetes insipidus associated with lithium use-now improved Appreciate nephrology consultation-received 1 dose IV lasix along with hypotonic IVFs on 03/06 for hypermagnesemia which is improving Continue Ham catheter Follow BMP Hold any further milk of magnesia If blood pressures remain elevated, recommend increasing amlodipine 5 mg daily to 10 mg daily Nephrology says may need [employer] in future if renal function worsening and has to remain on lithium for mood stabilizer (2) Ileus: Plan: Apparently was being given a bowel regimen to include milk of magnesia prior to admission hence the hypermagnesemia CT abdomen/pelvis shows ileus and some stool, but no bowel obstruction Her abdomen is with positive bowel sounds and is soft, nontender, however she did have 1 episode of vomiting on 03/06-none further since then, no pain, feels hungry-advance diet to regular/easy to chew Follow clinically for evidence of nausea/vomiting or for bowel function with bowel movements Avoid magnesium containing laxatives moving forward (3) Hypermagnesemia: Plan: Quite elevated at 6.3 on admission-now improving down to 4.6 with IV Lasix and IV fluids Follow magnesium level this afternoon and again in the morning Avoid all magnesium supplements (4) Schizoaffective disorder, bipolar type: Plan: Consult psychiatry given that lithium is on hold and she has a long history of acute issues with psychosis Plan to continue holding lithium for now and check daily lithium levels, eventual restarting of lithium Her lithium dose was increased to 300 mg daily at her last admission about 6 weeks ago (previously she was on it 3 times per week)-psychiatry feels the benefit outweighs the risk of being off of it Lowered the nighttime dose of olanzapine to 15 mg for renal dosing, continue 5 mg in the morning Continue Lamictal 150 Mg p.o. twice daily Continue 1 mg of lorazepam p.o. at bedtime and daily as needed Continue home cariprazine 3 mg p.o. twice daily Follow clinically (5) Sinus bradycardia: Plan: Heart rate initially was noted to be in the upper 30s upon arrival to the ED, asymptomatic. Maybe vagal reaction to GI issues? Heart rate has improved to the 60-70s on tele Most recent echocardiogram on 08/10/2021, with ejection fraction 65-70% Avoid beta-blockers Continue tele monitoring (6) Hypertension: Plan: Blood pressures are elevated but improved Continue home amlodipine 5 mg daily and may increase to 10 mg daily if not improving (7) Anemia: Plan: Hgb 9.6, borderline macrocytic. Fe levels here normal Check B12, folate in AM Probably anemia of chronic renal disease No bleeding from anywhere Plan Diabetes [id number] with hemoglobin A1c of only 5.6% Hold Januvia Continue Accu-Cheks with NovoLog SSI DVT prophylaxis- heparin SQ 5000 units every 12 hours Disposition-continued stay in PCU, eventual discharge back [facility] once renal function improving and tolerating diet Admission and Anticipated Discharge Date Admission Date: March 05, 2024 Results & Data Results & Data Vital Signs (Past 12 Hours) Vital Signs Temp Pulse Pulse Resp BP Pulse Ox O2 Del Method 03/08/24 08:31 36.6 C 60 20 151/85 H 99 Room Air 03/08/24 03:22 36.8 C 64 18 144/66 H 96 Room Air 03/07/24 22:48 37.4 C 03/07/24 21:58 129/98 03/07/24 21:45 83 03/07/24 21:42 38.0 C H 72 18 170/79 H 98 Room Air PG Care Time/CCT Total # of Minutes Spent Total Time Spent with Patient: Total time spent is greater than 50% in coordination of care (as documented) at patient's floor/unit and/or counseling patient: Coding Diagnoses Acute kidney injury superimposed on chronic kidney disease N17.9; N18.9 Ileus K56.7 Hypermagnesemia E83.41 Schizoaffective disorder, bipolar type F25.0 Sinus bradycardia R00.1 Hypertension I10 Anemia D64.9 Anemia type: unspecified type (7) Anemia Anemia type: unspecified type Qualified Code(s): D64.9 - Anemia, unspecified
[2024-03-08] MEDS ORDERED: LITHIUM CARBONATE 300 MG TAB PO SCH (09:00)
--- NOTE | 2024-03-08 10:48 | Nephrology Progress Note ---
Date of Service March 08, 2024 Assessment & Plan (1) Acute kidney injury superimposed on chronic kidney disease: (2) Hypermagnesemia: (3) Hypernatremia: (4) Hypocalcemia: (5) Chronic kidney disease, stage 4 (severe): (6) Hypertension: Plan 73 year-old female with history of stage IV CKD, Hypernatremia, admitted on 03/05/24 with outpatient lab showing SYLVAIN,hypernatremia and hypermagnesemia.In ER labs showed creatinine was 4.4, magnesium 6.3 and mild hypernatremia. h/o stage 4 CKD, b/l cr has been around 2.5 mg/dl. Magnesium was 6.3 on admission which slightly improved to 5.4 on labs this morning but again went up to 5.5. Hypomagnesia most likely secondary to advanced CKD and use of milk of magnesia. Mild hypocalcemia noted in the setting of hypercalcemia. 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 Lab this morning showed kidney function relatively stable and magnesium staying at 4.5 without further improvement, sodium again elevated at 147 as she continues to have high urine output and net negative. [place] has been on hold since admission and level was 1.2. Blood pressure elevated. --continue on half-normal saline and encourage p.o. intake. Repeat magnesium level in the afternoon.. --increase amlodipine to 10 mg daily. --suggest to continue to hold lithium for now while Mg is still high but at some point as other mood stabilizer and antipsychotic medications did not work very well for her, she may need to be back on [place] and needs to avoid all magnesium containing antacids and avoid magnesium supplement. If kidney function continue to worsen at some point show may need to consider renal replacement therapy however, do not see any indication to start her on dialysis at this time. Discussed with her significant other who will discuss with her immediate family to make decision. Admission and Anticipated Discharge Date Admission Date: March 05, 2024 Zoie Gutierrez was seen evaluated this morning. She looks comfortable, denied any specific symptoms. Has been on IV fluid and she has been trying to drink more, continues to have high urine output and overall significantly net negative. Magnesium stable at 4.5 Kidney function relatively stable, creatinine 3.2, Na again elevated at 147. Review of Systems Review of Systems: Detailed review of system was done, she looked comfortable and denied any symptoms.. Physical Exam Constitutional: WD/WN, vitals as above no acute distress Eyes: + anicteric sclerae Respiratory: no respiratory distress Auscultation: lungs clear to auscultation bilaterally Musculoskeletal: Extremities: extremities normal to inspection Skin: no rashes, warm and dry Neurologic: no focal motor deficits Psychiatric: Orientation: alert and cooperative Results & Data Vital Signs (Past 12 Hours) Vital Signs Temp Pulse Pulse Resp BP Pulse Ox O2 Del Method 03/08/24 08:31 36.6 C 60 20 151/85 H 99 Room Air 03/08/24 08:00 64 03/08/24 03:22 36.8 C 64 18 144/66 H 96 Room Air 03/07/24 22:48 37.4 C PG Care Time/CCT Total # of Minutes Spent Total Time Spent with Patient: Total time spent is greater than 50% in coordination of care (as documented) at patient's floor/unit and/or counseling patient: Coding Level of Care Code 23036 SUB INP/OBS CARE 3/50MIN Diagnoses Acute kidney injury superimposed on chronic kidney disease N17.9; N18.9 Hypermagnesemia E83.41 Hypernatremia E87.0 Hypocalcemia E83.51 Chronic kidney disease, stage 4 (severe) N18.4 Hypertension I10
--- NOTE | 2024-03-08 12:09 | Hospitalist Progress Note ---
Date of Service March 08, 2024 Assessment & Plan (1) Acute kidney injury superimposed on chronic kidney disease: Plan: Acute kidney injury superimposed on CKD stage IV- On admission, creatinine 4.25, with baseline 2.14, continues to improve down to 3.21 after receiving IV fluids could have lithium toxicity. [place] level is 1.2-holding lithium and checking daily lithium levels With 3+ protein on urinalysis Also with hypernatremia which may be from diabetes insipidus associated with lithium use-now improved Appreciate nephrology consultation-received 1 dose IV lasix along with hypotonic IVFs on 03/06 for hypermagnesemia which is improving Na+147 today (2) Ileus: Plan: Apparently was being given a bowel regimen to include milk of magnesia prior to admission hence the hypermagnesemia CT abdomen/pelvis shows ileus and some stool, but no bowel obstruction Avoid magnesium containing laxatives moving forward (3) Hypermagnesemia: Plan: Quite elevated at 6.3 on admission-now improving down to 4.5 with IV Lasix and IV fluids Follow magnesium level this afternoon and again in the morning Avoid all magnesium supplements (4) Schizoaffective disorder, bipolar type: Plan: Consult psychiatry given that lithium is on hold and she has a long history of acute issues with psychosis Plan to continue holding lithium for now and check daily lithium levels, eventual restarting of lithium Her lithium dose was increased to 300 mg daily at her last admission about 6 weeks ago (previously she was on it 3 times per week)-psychiatry feels the benefit outweighs the risk of being off of it Lowered the nighttime dose of olanzapine to 15 mg for renal dosing, continue 5 mg in the morning Continue Lamictal 150 Mg p.o. twice daily Continue 1 mg of lorazepam p.o. at bedtime and daily as needed Continue home cariprazine 3 mg p.o. twice daily Follow clinically (5) Sinus bradycardia: Plan: Heart rate has improved to the 60-70s on tele Avoid beta-blockers Continue tele monitoring (6) Hypertension: Plan: Con't home amlodipine 5 mg daily (7) Anemia: Plan: Hgb 9.6, borderline macrocytic. Fe levels here normal Probably anemia of chronic renal disease No bleeding Plan Diabetes [id number] with hemoglobin A1c of only 5.6% Hold Januvia Continue Accu-Cheks with NovoLog SSI DVT prophylaxis- heparin SQ 5000 units every 12 hours Disposition-continued stay in PCU, eventual [facility] once renal function improving and tolerating diet Admission and Anticipated Discharge Date Admission Date: March 05, 2024 Subjective Pt seen resting comfortably in bed. allen OVALLES at bedside. Pt appears to be answering questions via note pad. Review of Systems Review of Systems: CONST: Negative for fever, body aches and chills. HENT: Negative for neck pain/stiffness, headache, congestion, sore throat, swelling. EYES: Negative for discharge/pain or vision changes. RESP: Negative for cough/hemoptysis and shortness of breath. CV: Negative chest pain, difficulty breathing, palpitations. ABD: Negative pain, nausea, vomiting. : Negative increase frequency, dysuria, blood in urine or stool. MUSC: Negative for muscle aches, edema. SKIN: Negative rash, lesions/sores. NEURO: Negative headache, dizziness, weakness. Physical Exam Physical Exam: GENERAL APPEARANCE NAD, activity normal for age, well developed/ well nourished, no cyanosis, pallor, or diaphoresis. EYES lids/conjunctiva normal. EARS/NOSE/THROAT Mucous membranes moist, nares normal, lips/teeth normal uvula midline without oral pharyngeal erythema, exudate or swelling TMs normal bilaterally. No lymphangitis/lymphedema. HEAD/NECK normocephalic atraumatic, no facial trauma, neck is supple. RESPIRATORY respiratory effort normal, speaks in full sentences, no tripod position, no accessory muscle use. Lungs clear to auscultation without rhonchi, wheezes, rales CARDIAC Regular rate and rhythm, no edema. ABDOMINAL Soft, ND/NT. No evidence of fluid wave. No pulsatile masses on exam, rebound tenderness, [place] sign or pain over [place]burney's point. MUSCLES/EXTREMITIES No abnormal range of motion, no swelling. SKIN Warm, pink and dry. No rashes, dermatoses, petechiae or lesions. NEUROLOGICAL Speech is clear and appropriate. Normal level of consciousness. Gait and coordination are normal. 5/5 strength in all extremities. PSYCH Normal mood and affect. Judgement/competence is appropriate Results & Data Results & Data Vital Signs (Past 12 Hours) Vital Signs Temp Pulse Pulse Resp BP Pulse Ox O2 Del Method 03/08/24 11:16 36.3 C L 57 L 20 154/71 H 97 Room Air 11/07/24 08:31 36.6 C 60 20 151/85 H 99 Room Air 03/08/24 08:00 64 03/08/24 03:22 36.8 C 64 18 144/66 H 96 Room Air PG Care Time/CCT Total # of Minutes Spent Total Time Spent with Patient: Total time spent is greater than 50% in coordination of care (as documented) at patient's floor/unit and/or counseling patient: Coding Level of Care Code 99596 SUB INP/OBS CARE 2/35MIN Diagnoses Acute kidney injury superimposed on chronic kidney disease N17.9; N18.9 Ileus K56.7 Hypermagnesemia E83.41 Schizoaffective disorder, bipolar type F25.0 Sinus bradycardia R00.1 Hypertension I10 Anemia D64.9 Anemia type: unspecified type (7) Anemia Anemia type: unspecified type Qualified Code(s): D64.9 - Anemia, unspecified
--- NOTE | 2024-03-08 16:22 | Psychiatric Progress Note ---
Date of Service March 08, 2024 Impression / Recommendations Impression 73-year-old woman with history of schizoaffective disorder, bipolar type, stage IV kidney disease presents from senior care ([facility]) after abnormal lab work for elevated Cr. Here for SYLVAIN. Pt has history of progressive renal dysfunction with long-term use of [place] due to effectiveness for stabilizing her mood condition. Psychiatry consulted for evaluation, medication recommendations. Strong psychiatric indication to continue lithium for mood stabilization versus other treatments due to treatment failures with other agents and concern for decompensation and significant dysfunction if lithium d/c long-term. 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 Consider hemodialysis moving forward. A:Renal function stabilizing, Cr trending down. [place] level of 0.6 this AM and trending down. Behaviors have been stable. Consider restarting lithium 150mg Q2days. Overall, I spent a total of 30 minutes with this case including review of chart records, nursing report, review of lab work, direct evaluation of the patient at bedside, counseling the patient, discussion of the patient with the hospitalist provider, discussion with the psychiatric liaison during clinical rounds, and documentation in the electronic health record. (1) Schizoaffective disorder, bipolar type: (2) Acute kidney injury superimposed on chronic kidney disease: (3) Acute urinary retention: (4) [place] nephropathy: (5) Tardive dyskinesia: Plan -[place] 150mg Q2days -[place] level, Cr daily -Olanzapine 5mg QAM, 15mg HS -Lamotrigine 150mg BIDM -Lorazepam 1mg HS -Cariprazine 3mg BIDM -Lorazepam 1mg PO/IM BID PRN for anxiety -Haloperidol 2.5mg PO/IM BID PRN for agitation -Will continue to follow patient Interval History Identifying Information 73-year-old woman with history of schizoaffective disorder, bipolar type, stage IV kidney disease presents from senior care ([facility]) after abnormal lab work for elevated Cr. Here for SYLVAIN. Pt has history of progressive renal dysfunction with long-term use of [place] due to effectiveness for stabilizing her mood condition. Psychiatry consulted for evaluation, medication recommendations. Chief Complaint SYLVAIN Subjective Subjective Lab review: Creatinine 3.21 and trending down. Magnesium 4.5 and high. [place] of 0.6. Overnight patient was incontinent of stool. When patient was seen she was resting. Behaviors appear to be stable. Physical Exam Mental Examination Appearance: Disheveled Eye Contact: Maintains Eye Contact Motor Behavior: Unremarkable (resting) Speech: Slurred Mood: Calm Affect: Congruent Thought Process: Linear Hallucinations: None Insight: Poor (to limited) Judgement: Poor (to limited) Vital Signs (Past 24 Hours) Last Vital Signs Temp 37.1 C 03/08/24 14:58 Pulse 64 03/08/24 16:00 Resp 18 03/08/24 14:58 BP 160/69 H 03/08/24 14:58 Pulse Ox 95 03/08/24 14:58 O2 Del Method Room Air 03/08/24 14:58 Results & Data ([facility]) Laboratory Results Laboratory Results - last 24 hr 03/07/24 03/08/24 03/08/24 20:21 07:24 07:34 WBC 6.79 RBC 3.30 L Hgb 9.9 L Hct 31.8 L MCV 96.4 MCH 30.0 MCHC 31.1 L RDW Std Deviation 52.7 H RDW Coeff of Rachel 14.8 H Plt Count 326 MPV 10.2 Immature Gran % (Auto) 1.2 Neut % (Auto) 79.7 Lymph % (Auto) 11.2 [place] % (Auto) 7.8 Eos % (Auto) 0.0 Baso % (Auto) 0.1 Neut # (Auto) 5.41 Lymph # (Auto) 0.76 L [place] # (Auto) 0.53 Eos # (Auto) 0.00 Baso # (Auto) 0.01 Immature Gran # (Auto) 0.08 Sodium 147 H Potassium Chloride Carbon Dioxide Anion Gap BUN Creatinine Est Cr Clr Drug Dosing eGFR BUN/Creatinine Ratio Glucose POC Glucose 107 H 85 Calcium Magnesium Total Bilirubin AST ALT Alkaline Phosphatase Total Protein Albumin Globulin Albumin/Globulin Ratio [place] 03/08/24 03/08/24 03/08/24 07:34 07:34 07:34 WBC RBC Hgb Hct MCV MCH MCHC RDW Std Deviation RDW Coeff of Rachel Plt Count MPV Immature Gran % (Auto) Neut % (Auto) Lymph % (Auto) [place] % (Auto) Eos % (Auto) Baso % (Auto) Neut # (Auto) Lymph # (Auto) [place] # (Auto) Eos # (Auto) Baso # (Auto) Immature Gran # (Auto) Sodium 147 H Potassium 4.1 4.2 Chloride 115 H 116 H Carbon Dioxide 25 Anion Gap BUN Creatinine Est Cr Clr Drug Dosing eGFR BUN/Creatinine Ratio Glucose POC Glucose Calcium Magnesium Total Bilirubin AST ALT Alkaline Phosphatase Total Protein Albumin Globulin Albumin/Globulin Ratio [place] 03/08/24 03/08/24 03/08/24 07:34 07:34 07:34 WBC RBC Hgb Hct MCV MCH MCHC RDW Std Deviation RDW Coeff of Rachel Plt Count MPV Immature Gran % (Auto) Neut % (Auto) Lymph % (Auto) [place] % (Auto) Eos % (Auto) Baso % (Auto) Neut # (Auto) Lymph # (Auto) [place] # (Auto) Eos # (Auto) Baso # (Auto) Immature Gran # (Auto) Sodium Potassium Chloride Carbon Dioxide 25 Anion Gap 7 6 BUN 27 H 27 H Creatinine 3.23 H Est Cr Clr Drug Dosing eGFR BUN/Creatinine Ratio Glucose POC Glucose Calcium Magnesium Total Bilirubin AST ALT Alkaline Phosphatase Total Protein Albumin Globulin Albumin/Globulin Ratio [place] 03/08/24 03/08/24 03/08/24 07:34 07:34 07:34 WBC RBC Hgb Hct MCV MCH MCHC RDW Std Deviation RDW Coeff of Rachel Plt Count MPV Immature Gran % (Auto) Neut % (Auto) Lymph % (Auto) [place] % (Auto) Eos % (Auto) Baso % (Auto) Neut # (Auto) Lymph # (Auto) [place] # (Auto) Eos # (Auto) Baso # (Auto) Immature Gran # (Auto) Sodium Potassium Chloride Carbon Dioxide Anion Gap BUN Creatinine 3.21 H Est Cr Clr Drug Dosing 12.6 12.7 eGFR 14.75 14.86 BUN/Creatinine Ratio 8.4 L Glucose POC Glucose Calcium Magnesium Total Bilirubin AST ALT Alkaline Phosphatase Total Protein Albumin Globulin Albumin/Globulin Ratio [place] 03/08/24 03/08/24 03/08/24 07:34 07:34 07:34 WBC RBC Hgb Hct MCV MCH MCHC RDW Std Deviation RDW Coeff of Rachel Plt Count MPV Immature Gran % (Auto) Neut % (Auto) Lymph % (Auto) [place] % (Auto) Eos % (Auto) Baso % (Auto) Neut # (Auto) Lymph # (Auto) [place] # (Auto) Eos # (Auto) Baso # (Auto) Immature Gran # (Auto) Sodium Potassium Chloride Carbon Dioxide Anion Gap BUN Creatinine Est Cr Clr Drug Dosing eGFR BUN/Creatinine Ratio 8.4 L Glucose 84 84 POC Glucose Calcium 8.8 8.7 Magnesium 4.5 H Total Bilirubin 0.3 AST 15 ALT 20 Alkaline Phosphatase 145 H Total Protein 5.9 L Albumin 3.2 L Globulin 2.7 Albumin/Globulin Ratio 1.2 [place] 0.6 03/08/24 11:11 WBC RBC Hgb Hct MCV MCH MCHC RDW Std Deviation RDW Coeff of Rachel Plt Count MPV Immature Gran % (Auto) Neut % (Auto) Lymph % (Auto) [place] % (Auto) Eos % (Auto) Baso % (Auto) Neut # (Auto) Lymph # (Auto) [place] # (Auto) Eos # (Auto) Baso # (Auto) Immature Gran # (Auto) Sodium Potassium Chloride Carbon Dioxide Anion Gap BUN Creatinine Est Cr Clr Drug Dosing eGFR BUN/Creatinine Ratio Glucose POC Glucose 89 Calcium Magnesium Total Bilirubin AST ALT Alkaline Phosphatase Total Protein Albumin Globulin Albumin/Globulin Ratio [place] Current Inpatient Medications Current Inpatient Medications: Current Inpatient Medications Acetaminophen (Acetaminophen 325 Mg Tab) 650 mg PO QID PRN PRN Reason: Fever Or Pain Stop: 04/05/24 08:11 Last Admin: 03/07/24 21:49 Dose: 650 mg Amlodipine Besylate (Amlodipine Besylate 5 Mg Tab) 10 mg PO QAM [facility] Stop: 04/08/24 08:59 Atorvastatin Calcium (Atorvastatin 10 Mg Tab) 10 mg PO HS [facility] Stop: 04/05/24 20:59 Last Admin: 03/07/24 20:20 Dose: 10 mg Cariprazine (Cariprazine Hcl 3 Mg Cap) 3 mg PO BIDM GEORGE Stop: 04/05/24 16:59 Last Admin: 03/08/24 08:07 Dose: 3 mg Dextrose (Dextrose 50% 50 Ml Syringe) 25 - 50 ml IV UD PRN; Protocol PRN Reason: Hypoglycemia Protocol Stop: 04/04/24 21:37 Glucagon (Glucagon For Inj 1 Mg Vial) 1 mg SQ UD PRN; Protocol PRN Reason: Hypoglycemia Protocol Stop: 04/04/24 21:37 Glucose (Glucose 40% Gel 15 Gm Tube) 15 - 30 gm PO UD PRN; Protocol PRN Reason: Hypoglycemia Protocol Stop: 04/04/24 21:37 Glucose (Glucose 10 Tab/Tube) 4 - 8 tab PO UD PRN; Protocol PRN Reason: Hypoglycemia Protocol Stop: 04/04/24 21:37 Heparin Sodium (Porcine) (Heparin Sod 5,000 Unit/0.5 Ml Vial) 5,000 units SQ Q12 [facility] Stop: 04/05/24 20:59 Last Admin: 03/08/24 08:25 Dose: 5,000 units Insulin Aspart (Insulin Aspart Per Unit Charge) 0 units SC ACHS [facility] Stop: 04/04/24 21:37 Last Admin: 03/08/24 12:26 Dose: Not Given Lamotrigine (Lamotrigine 100 Mg Tab) 150 mg PO BIDM [facility] Stop: 04/05/24 16:59 Last Admin: 03/08/24 08:08 Dose: 150 mg Lorazepam (Lorazepam 1 Mg Tab) 1 mg PO DAILY PRN PRN Reason: Anxiety Stop: 04/05/24 08:11 Lorazepam (Lorazepam 1 Mg Tab) 1 mg PO [facility] Stop: 04/05/24 20:59 Last Admin: 03/07/24 20:20 Dose: 1 mg Miscellaneous (Carbohydrates For Hypoglycemia ) 15 - 30 gm PO UD PRN PRN Reason: Hypoglycemia Protocol Stop: 04/04/24 21:37 Olanzapine (Olanzapine Zydis 5 Mg Orally Dis. Tab) [facility] Stop: 04/05/24 08:59 Last Admin: 03/08/24 08:21 Dose: 5 mg Olanzapine (Olanzapine 5 Mg Tablet) 15 mg PO [facility] Stop: 04/05/24 20:59 Last Admin: 03/07/24 20:21 Dose: 15 mg Ondansetron HCl (Ondansetron 4 Mg Od Tab) 4 mg PO Q6 PRN PRN Reason: Nausea And Vomiting Stop: 04/04/24 21:37 Pantoprazole Sodium (Pantoprazole 40 Mg Tab) [facility] Stop: 04/05/24 08:59 Last Admin: 03/08/24 08:14 Dose: 40 mg
[2024-03-08] MEDS: LACTULOSE SYRUP 30 GM/45 ML UDP PO STA (17:43)
[2024-03-09] MEDS: OLANZapine ZYDIS 5 MG ORALLY DIS. TAB PO STA (01:35)
[2024-03-09] MEDS: LORazepam 1 MG TAB PO PRN (03:02)
[2024-03-09] MEDS: amLODIPine BESYLATE 5 MG TAB PO SCH (07:59)
[2024-03-09 08:07] LABS: Hematocrit (blood only) 35.1 % (37.0-47.0); Hemoglobin 10.8 g/dl (12.0-16.0); Mean Corpuscular Hemoglobin 29.9 pg (25.0-34.0); Mean Corpuscular Hgb Conc 30.8 g/dL (32.0-36.0); Mean Corpuscular Volume 97.2 fL (80.0-100.0); Mean Platelet Volume 9.8 fL (9.4-12.4); Platelet Count 379 K/uL (130-400); RDW Coefficient of Variation 14.7 % (11.5-14.5); RDW Standard Deviation 53.1 fL (36.4-46.3); Red Blood Count 3.61 M/uL (4.20-5.40); White Blood Count 7.45 K/ul (4.8-10.8)
[2024-03-09 08:22] LABS: BUN Creatinine Ratio 9.1 (10-20); Creatinine Clr Calc Pharmacy 11.6 ml/min; Magnesium 3.9 mg/dl (1.7-2.4); Potassium 4.5 mmol/L (3.5-5.1)
--- NOTE | 2024-03-09 09:45 | Hospitalist Progress Note ---
Date of Service March 09, 2024 Assessment & Plan (1) Acute kidney injury superimposed on chronic kidney disease: Plan: Acute kidney injury superimposed on CKD stage IV- On admission, creatinine 4.25, with baseline 2.14, continues to improve down to 3.19 after receiving IV fluids could have lithium toxicity. [place] level is 1.2-holding lithium and checking daily lithium levels With 3+ protein on urinalysis Also with hypernatremia which may be from diabetes insipidus associated with lithium use-now improved Appreciate nephrology consultation-received 1 dose IV lasix along with hypotonic IVFs on 03/06 for hypermagnesemia which is improving Na+145 today (2) Ileus: Plan: Apparently was being given a bowel regimen to include milk of magnesia prior to admission hence the hypermagnesemia CT abdomen/pelvis shows ileus and some stool, but no bowel obstruction Avoid magnesium containing laxatives moving forward Started on lactulose (3) Hypermagnesemia: Plan: Quite elevated at 6.3 on admission-now improving down to 3.9 with IV Lasix and IV fluids Follow magnesium level this afternoon and again in the morning Avoid all magnesium supplements (4) Schizoaffective disorder, bipolar type: Plan: Consult psychiatry given that lithium is on hold and she has a long history of acute issues with psychosis Plan to continue holding lithium for now and check daily lithium levels, eventual restarting of lithium Her lithium dose was increased to 300 mg daily at her last admission about 6 weeks ago (previously she was on it 3 times per week)-psychiatry feels the benefit outweighs the risk of being off of it Lowered the nighttime dose of olanzapine to 15 mg for renal dosing, continue 5 mg in the morning Continue Lamictal 150 Mg p.o. twice daily Continue 1 mg of lorazepam p.o. at bedtime and daily as needed Continue home cariprazine 3 mg p.o. twice daily Follow clinically Will be starting lithium as per psych recommendations. (5) Sinus bradycardia: Plan: Heart rate has improved to the 60-70s on tele Avoid beta-blockers Continue tele monitoring (6) Hypertension: Plan: Con't home amlodipine 5 mg daily (7) Anemia: Plan: Hgb 9.6, borderline macrocytic. Fe levels here normal Probably anemia of chronic renal disease No bleeding Plan Diabetes [id number] with hemoglobin A1c of only 5.6% Hold Januvia Continue Accu-Cheks with NovoLog SSI DVT prophylaxis- heparin SQ 5000 units every 12 hours Disposition-continued stay in PCU, eventual discharge back to her [facility] once renal function improving and tolerating diet Admission and Anticipated Discharge Date Admission Date: March 05, 2024 Subjective Pt is agitated this morning, required soft mitt placement. Review of Systems Review of Systems: CONST: Negative for fever, body aches and chills. HENT: Negative for neck pain/stiffness, headache, congestion, sore throat, swelling. EYES: Negative for discharge/pain or vision changes. RESP: Negative for cough/hemoptysis and shortness of breath. CV: Negative chest pain, difficulty breathing, palpitations. ABD: Negative pain, nausea, vomiting. : Negative increase frequency, dysuria, blood in urine or stool. MUSC: Negative for muscle aches, edema. SKIN: Negative rash, lesions/sores. NEURO: Negative headache, dizziness, weakness. Physical Exam Physical Exam: GENERAL APPEARANCE NAD, activity normal for age, well developed/ well nourished, no cyanosis, pallor, or diaphoresis. EYES lids/conjunctiva normal. EARS/NOSE/THROAT Mucous membranes moist, nares normal, lips/teeth normal uvula midline without oral pharyngeal erythema, exudate or swelling TMs normal bilaterally. No lymphangitis/lymphedema. HEAD/NECK normocephalic atraumatic, no facial trauma, neck is supple. RESPIRATORY respiratory effort normal, speaks in full sentences, no tripod position, no accessory muscle use. Lungs clear to auscultation without rhonchi, wheezes, rales CARDIAC Regular rate and rhythm, no edema. ABDOMINAL Soft, ND/NT. No evidence of fluid wave. No pulsatile masses on exam, rebound tenderness, [place] sign or pain over Mcburney's point. MUSCLES/EXTREMITIES No abnormal range of motion, no swelling. SKIN Warm, pink and dry. No rashes, dermatoses, petechiae or lesions. NEUROLOGICAL Speech is clear and appropriate. Normal level of consciousness. Gait and coordination are normal. 5/5 strength in all extremities. PSYCH confused, agitated. Results & Data Results & Data Vital Signs (Past 12 Hours) Vital Signs Temp Pulse Pulse Resp BP Pulse Ox O2 Del Method 03/09/24 03:11 36.4 C L 72 18 153/70 H 97 Room Air 03/08/24 23:00 36.9 C 77 18 162/82 H 96 Room Air 03/08/24 21:54 84 PG Care Time/CCT Total # of Minutes Spent Total Time Spent with Patient: Total time spent is greater than 50% in coordination of care (as documented) at patient's floor/unit and/or counseling patient: Coding Level of Care Code 25374 SUB INP/OBS CARE 2/35MIN Diagnoses Acute kidney injury superimposed on chronic kidney disease N17.9; N18.9 Ileus K56.7 Hypermagnesemia E83.41 Schizoaffective disorder, bipolar type F25.0 Sinus bradycardia R00.1 Hypertension I10 Anemia D64.9 Anemia type: unspecified type (7) Anemia Anemia type: unspecified type Qualified Code(s): D64.9 - Anemia, unspecified
--- NOTE | 2024-03-09 11:10 | Nephrology Progress Note ---
Date of Service March 09, 2024 Assessment & Plan (1) Acute kidney injury superimposed on chronic kidney disease: (2) Hypermagnesemia: (3) Hypernatremia: (4) Hypocalcemia: (5) Chronic kidney disease, stage 4 (severe): (6) Hypertension: Plan 73 year-old female with history of stage IV CKD, Hypernatremia, admitted on 03/05/24 with outpatient lab showing SYLVAIN,hypernatremia and hypermagnesemia.In ER labs showed creatinine was 4.4, magnesium 6.3 and mild hypernatremia. h/o stage 4 CKD, b/l cr has been around 2.5 mg/dl. Magnesium was 6.3 on admission which slightly improved to 5.4 on labs this morning but again went up to 5.5. Hypomagnesia most likely secondary to advanced CKD and use of milk of magnesia. Mild hypocalcemia noted in the setting of hypercalcemia. 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 Lab this morning showed kidney function relatively stable and magnesium down to 3.9. Sodium normalized. She was agitated this morning now on soft restraint. Blood pressure fair. --Encouraged to increase p.o. intake as she continues to have high urine output, continue to monitor kidney function and magnesium while in hospital. --Continue amlodipine 10 mg daily. --Kidney function staying stable at her baseline, magnesium starting to improve however since lithium was started back, magnesium may increase again, will need close monitoring while on lithium. Avoid all magnesium containing antacids -- No other recommendation from nephrology at this time, okay to discharge. If discharge anticipated over the weekend, recommend monitoring lab early next week. Schedule outpatient follow-up with Dr. Rich in next few weeks. Will sign off, please contact if further assistance needed. Admission and Anticipated Discharge Date Admission Date: March 05, 2024 Zoie Garcia was seen this morning. She was sleeping after being agitated in the morning and put on soft restraint and getting all her antipsychotic medications in the morning. She has also started back on lithium. Kidney function stable, magnesium down to 3.9. Blood pressure acceptable. Review of Systems Review of Systems: Detailed review of system was done, she looked comfortable and denied any symptoms.. Physical Exam Constitutional: WD/WN, vitals as above no acute distress Respiratory: no respiratory distress Auscultation: lungs clear to auscultation bilaterally Cardiovascular: RRR, no murmur, no edema Results & Data Vital Signs (Past 12 Hours) Vital Signs Temp Pulse Resp BP Pulse Ox O2 Del Method 03/09/24 03:11 36.4 C L 72 18 153/70 H 97 Room Air PG Care Time/CCT Total # of Minutes Spent Total Time Spent with Patient: Total time spent is greater than 50% in coordination of care (as documented) at patient's floor/unit and/or counseling patient: Coding Level of Care Code 68924 SUB INP/OBS CARE 2/35MIN Diagnoses Acute kidney injury superimposed on chronic kidney disease N17.9; N18.9 Hypermagnesemia E83.41 Hypernatremia E87.0 Hypocalcemia E83.51 Chronic kidney disease, stage 4 (severe) N18.4 Hypertension I10
[2024-03-09] MEDS: LITHIUM CARBONATE SLOW REL 300 MG TAB PO SCH (11:41)
[2024-03-09] MEDS: LITHIUM CARBONATE 300 MG TAB PO SCH (11:44)
--- NOTE | 2024-03-09 14:35 | Psychiatric Progress Note ---
Date of Service March 09, 2024 Impression / Recommendations Impression 73-year-old woman with history of schizoaffective disorder, bipolar type, stage IV kidney disease presents from [facility] ([facility]) after abnormal lab work for elevated Cr. Here for SYLVAIN. Pt has history of progressive renal dysfunction with long-term use of [place] due to effectiveness for stabilizing her mood condition. Psychiatry consulted for evaluation, medication recommendations. Strong psychiatric indication to continue lithium for mood stabilization versus other treatments due to treatment failures with other agents and concern for decompensation and significant dysfunction if lithium d/c long-term. 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 Consider hemodialysis moving forward. A: Renal function stabilizing, Cr trending down, now at 3.19. [place] level not drawn today. Please draw [place] level daily, concern for mood decompensation that will result in behavioral problems, insomnia, agitation if lithium is not therapeutic. Patient is presenting more manic behaviors, has been restless, difficult to redirect, not sleeping. Recommend [place] 150mg daily. Overall, I spent a total of 40 minutes with this case including review of chart records, nursing report, review of lab work, direct evaluation of the patient at bedside, counseling the patient, discussion of the patient with the hospitalist provider, discussion with the psychiatric liaison during clinical rounds, and documentation in the electronic health record. (1) Schizoaffective disorder, bipolar type: (2) Acute kidney injury superimposed on chronic kidney disease: (3) Acute urinary retention: (4) [place] nephropathy: (5) Tardive dyskinesia: Plan -[place] 150mg daily -[place] level daily, Cr daily -Olanzapine 5mg QAM, 15mg HS -Lamotrigine 150mg BIDM -Lorazepam 1mg HS -Cariprazine 3mg BIDM -Lorazepam 1mg PO/IM BID PRN for anxiety -Haloperidol 2.5mg PO/IM BID PRN for agitation -Will continue to follow patient Interval History Identifying Information 73-year-old woman with history of schizoaffective disorder, bipolar type, stage IV kidney disease presents from [facility] ([facility]) after abnormal lab work for elevated Cr. Here for SYLVAIN. Pt has history of progressive renal dysfunction with long-term use of [place] due to effectiveness for stabilizing her mood condition. Psychiatry consulted for evaluation, medication recommendations. Chief Complaint SYLVAIN Subjective Subjective Nursing reports pt had poor sleep overnight. On interview she was restless, and highly energetic. Unable to sit still. Asking about her partner. Appears cheerful. Physical Exam Mental Examination Appearance: Disheveled Eye Contact: Maintains Eye Contact Motor Behavior: Restless Speech: Slurred Mood: Euphoric Affect: Congruent Thought Process: Linear Hallucinations: None Insight: Poor Judgement: Poor Vital Signs (Past 24 Hours) Last Vital Signs Temp 36.4 C L 03/09/24 03:11 Pulse 81 03/09/24 14:18 Resp 24 03/09/24 11:54 BP 143/64 H 03/09/24 11:54 Pulse Ox 100 03/09/24 11:54 O2 Del Method Room Air 03/09/24 11:54 Results & Data ([facility]) Laboratory Results Laboratory Results - last 24 hr 03/08/24 03/08/24 03/09/24 16:20 20:32 07:34 WBC RBC Hgb Hct MCV MCH MCHC RDW Std Deviation RDW Coeff of Rachel Plt Count MPV Sodium Potassium Chloride Carbon Dioxide Anion Gap BUN Creatinine Est Cr Clr Drug Dosing eGFR BUN/Creatinine Ratio Glucose POC Glucose 90 102 H 92 Calcium Magnesium 03/09/24 03/09/24 07:53 11:04 WBC 7.45 RBC 3.61 L Hgb 10.8 L Hct 35.1 L MCV 97.2 MCH 29.9 MCHC 30.8 L RDW Std Deviation 53.1 H RDW Coeff of Rachel 14.7 H Plt Count 379 MPV 9.8 Sodium 145 Potassium 4.5 Chloride 115 H Carbon Dioxide 25 Anion Gap 5 BUN 29 H Creatinine 3.19 H Est Cr Clr Drug Dosing 11.6 eGFR 14.97 BUN/Creatinine Ratio 9.1 L Glucose 93 POC Glucose 83 Calcium 9.0 Magnesium 3.9 H Current Inpatient Medications Current Inpatient Medications: Current Inpatient Medications Acetaminophen (Acetaminophen 325 Mg Tab) 650 mg PO QID PRN PRN Reason: Fever Or Pain Stop: 04/05/24 08:11 Last Admin: 03/07/24 21:49 Dose: 650 mg Amlodipine Besylate (Amlodipine Besylate 5 Mg Tab) 10 mg PO QAM [facility] Stop: 04/08/24 08:59 Last Admin: 03/09/24 07:59 Dose: 10 mg Atorvastatin Calcium (Atorvastatin 10 Mg Tab) 10 mg PO HS [facility] Stop: 04/05/24 20:59 Last Admin: 03/08/24 21:02 Dose: 10 mg Cariprazine (Cariprazine Hcl 3 Mg Cap) 3 mg PO BIDM [facility] Stop: 04/05/24 16:59 Last Admin: 03/09/24 07:57 Dose: 3 mg Dextrose (Dextrose 50% 50 Ml Syringe) 25 - 50 ml IV UD PRN; Protocol PRN Reason: Hypoglycemia Protocol Stop: 04/04/24 21:37 Glucagon (Glucagon For Inj 1 Mg Vial) 1 mg SQ UD PRN; Protocol PRN Reason: Hypoglycemia Protocol Stop: 04/04/24 21:37 Glucose (Glucose 40% Gel 15 Gm Tube) 15 - 30 gm PO UD PRN; Protocol PRN Reason: Hypoglycemia Protocol Stop: 04/04/24 21:37 Glucose (Glucose 10 Tab/Tube) 4 - 8 tab PO UD PRN; Protocol PRN Reason: Hypoglycemia Protocol Stop: 04/04/24 21:37 Heparin Sodium (Porcine) (Heparin Sod 5,000 Unit/0.5 Ml Vial) 5,000 units SQ Q12 [facility] Stop: 04/05/24 20:59 Last Admin: 03/09/24 08:06 Dose: 5,000 units Insulin Aspart (Insulin Aspart Per Unit Charge) 0 units SC ACHS [facility] Stop: 04/04/24 21:37 Last Admin: 03/09/24 11:49 Dose: Not Given Lamotrigine (Lamotrigine 100 Mg Tab) 150 mg PO BIDM [facility] Stop: 04/05/24 16:59 Last Admin: 03/09/24 07:57 Dose: 150 mg [place] Carbonate ([place] Carbonate 300 Mg Tab) 150 mg PO Q2D@0900 [facility] Stop: 04/08/24 10:59 Last Admin: 03/09/24 11:44 Dose: 150 mg Lorazepam (Lorazepam 1 Mg Tab) 1 mg PO DAILY PRN PRN Reason: Anxiety Stop: 04/05/24 08:11 Last Admin: 03/09/24 13:18 Dose: 1 mg Lorazepam (Lorazepam 1 Mg Tab) 1 mg PO HS [facility] Stop: 04/05/24 20:59 Last Admin: 03/08/24 21:02 Dose: 1 mg Miscellaneous (Carbohydrates For Hypoglycemia ) 15 - 30 gm PO UD PRN PRN Reason: Hypoglycemia Protocol Stop: 04/04/24 21:37 Olanzapine (Olanzapine Zydis 5 Mg Orally Dis. Tab) 5 mg PO QAM [facility] Stop: 04/05/24 08:59 Last Admin: 03/09/24 08:00 Dose: 5 mg Olanzapine (Olanzapine 5 Mg Tablet) 15 mg PO HS [facility] Stop: 04/05/24 20:59 Last Admin: 03/08/24 21:02 Dose: 15 mg Ondansetron HCl (Ondansetron 4 Mg Od Tab) 4 mg PO Q6 PRN PRN Reason: Nausea And Vomiting Stop: 04/04/24 21:37 Pantoprazole Sodium (Pantoprazole 40 Mg Tab) [facility] [place] Stop: 04/05/24 08:59 Last Admin: 03/09/24 08:00 Dose: 40 mg
[2024-03-10 07:36] LABS: BUN Creatinine Ratio 10.3 (10-20); Calcium 8.5 mg/dl (8.6-10.3); Creatinine Clr Calc Pharmacy 13.8 ml/min; Magnesium 3.3 mg/dl (1.7-2.4); Potassium 4.1 mmol/L (3.5-5.1)
[2024-03-10] MEDS: LITHIUM CARBONATE 300 MG TAB PO SCH (08:56)
--- NOTE | 2024-03-10 11:58 | Hospitalist Progress Note ---
Date of Service March 10, 2024 Assessment & Plan (1) Acute kidney injury superimposed on chronic kidney disease: Plan: Acute kidney injury superimposed on CKD stage IV- On admission, creatinine 4.25, with baseline 2.14, continues to improve down to 2.91 after receiving IV fluids Also with hypernatremia which may be from diabetes insipidus associated with lithium use-now improved Appreciate nephrology consultation-received 1 dose IV lasix along with hypotonic IVFs on 03/06 for hypermagnesemia which is improving Na+140 today (2) Ileus: Plan: Apparently was being given a bowel regimen to include milk of magnesia prior to admission hence the hypermagnesemia CT abdomen/pelvis shows ileus and some stool, but no bowel obstruction Avoid magnesium containing laxatives moving forward Started on lactulose (3) Hypermagnesemia: Plan: Quite elevated at 6.3 on admission-now improving down to 3.3 with IV Lasix and IV fluids Follow magnesium level this afternoon and again in the morning Avoid all magnesium supplements (4) Schizoaffective disorder, bipolar type: Plan: Consult psychiatry given that lithium is on hold and she has a long history of acute issues with psychosis Plan to continue holding lithium for now and check daily lithium levels, eventua l restarting of lithium Her lithium dose was increased to 300 mg daily at her last admission about 6 weeks ago (previously she was on it 3 times per week)-psychiatry feels the benefit outweighs the risk of being off of it Lowered the nighttime dose of olanzapine to 15 mg for renal dosing, continue 5 mg in the morning Continue Lamictal 150 Mg p.o. twice daily Continue 1 mg of lorazepam p.o. at bedtime and daily as needed Continue home cariprazine 3 mg p.o. twice daily Follow clinically Started lithium 150mg daily as per psych recommendations. (5) Sinus bradycardia: Plan: Heart rate has improved to the 60-70s on tele Avoid beta-blockers Continue tele monitoring (6) Hypertension: Plan: Con't home amlodipine 5 mg daily (7) Anemia: Plan: Hgb 9.6, borderline macrocytic. Fe levels here normal Probably anemia of chronic renal disease No bleeding Plan Diabetes [id number] with hemoglobin A1c of only 5.6% Hold Januvia Continue Accu-Cheks with NovoLog SSI DVT prophylaxis- heparin SQ 5000 units every 12 hours Disposition-continued stay in PCU, eventual discharge back to her home at the residential once renal function improving and tolerating diet Admission and Anticipated Discharge Date Admission Date: March 05, 2024 Subjective No events overnight, pt anxious as per chagoance this am, but no episodes of agitation. Review of Systems Review of Systems: CONST: Negative for fever, body aches and chills. HENT: Negative for neck pain/stiffness, headache, congestion, sore throat, swelling. EYES: Negative for discharge/pain or vision changes. RESP: Negative for cough/hemoptysis and shortness of breath. CV: Negative chest pain, difficulty breathing, palpitations. ABD: Negative pain, nausea, vomiting. : Negative increase frequency, dysuria, blood in urine or stool. MUSC: Negative for muscle aches, edema. SKIN: Negative rash, lesions/sores. NEURO: Negative headache, dizziness, weakness. Physical Exam Physical Exam: GENERAL APPEARANCE NAD, activity normal for age, well developed/ well nourished, no cyanosis, pallor, or diaphoresis. EYES lids/conjunctiva normal. EARS/NOSE/THROAT Mucous membranes moist, nares normal, lips/teeth normal uvula midline without oral pharyngeal erythema, exud ate or swelling TMs normal bilaterally. No lymphangitis/lymphedema. HEAD/NECK normocephalic atraumatic, no facial trauma, neck is supple. RESPIRATORY respiratory effort normal, speaks in full sentences, no tripod position, no accessory muscle use. Lungs clear to auscultation without rhonchi, wheezes, rales CARDIAC Regular rate and rhythm, no edema. ABDOMINAL Soft, ND/NT. No evidence of fluid wave. No pulsatile masses on exam, rebound tenderness, [place] sign or pain over Mcburney's point. MUSCLES/EXTREMITIES No abnormal range of motion, no swelling. SKIN Warm, pink and dry. No rashes, dermatoses, petechiae or lesions. NEUROLOGICAL Speech is clear and appropriate. Normal level of consciousness. Gait and coordination are normal. 5/5 strength in all extremities. PSYCH confused, agitated. Results & Data Results & Data Vital Signs (Past 12 Hours) Vital Signs Temp Pulse Pulse Resp BP Pulse Ox O2 Del Method 03/10/24 10:56 69 03/10/24 08:35 37.1 C 71 20 133/69 96 Room Air 03/10/24 08:00 Room Air 03/10/24 05:16 36.8 C 76 20 167/72 H 96 Room Air PG Care Time/CCT Total # of Minutes Spent Total Time Spent with Patient: Total time spent is greater than 50% in coordination of care (as documented) at patient's floor/unit and/or counseling patient: Coding Level of Care Code 32540 SUB INP/OBS CARE 2/35MIN Diagnoses Acute kidney injury superimposed on chronic kidney disease N17.9; N18.9 Ileus K56.7 Hypermagnesemia E83.41 Schizoaffective disorder, bipolar type F25.0 Sinus bradycardia R00.1 Hypertension I10 Anemia D64.9 Anemia type: unspecified type (7) Anemia Anemia type: unspecified type Qualified Code(s): D64.9 - Anemia, unspecified
[2024-03-11 07:33] LABS: BUN Creatinine Ratio 10.1 (10-20); Calcium 8.6 mg/dl (8.6-10.3); Creatinine Clr Calc Pharmacy 14.6 ml/min; Magnesium 2.9 mg/dl (1.7-2.4); Potassium 4.5 mmol/L (3.5-5.1)
--- NOTE | 2024-03-11 10:22 | Hospitalist Progress Note ---
Date of Service March 11, 2024 Assessment & Plan (1) Acute kidney injury superimposed on chronic kidney disease: Plan: Acute kidney injury superimposed on CKD stage IV- On admission, creatinine 4.25, with baseline 2.14, continues to improve down to 2.91 after receiving IV fluids Also with hypernatremia which may be from diabetes insipidus associated with lithium use-now improved Appreciate nephrology consultation-received 1 dose IV lasix along with hypotonic IVFs on 03/06 for hypermagnesemia which is improving Na+143 today (2) Ileus: Plan: Apparently was being given a bowel regimen to include milk of magnesia prior to admission hence the hypermagnesemia CT abdomen/pelvis shows ileus and some stool, but no bowel obstruction Avoid magnesium containing laxatives moving forward Started on lactulose (3) Hypermagnesemia: Plan: Quite elevated at 6.3 on admission-now improving down to 2.9 with IV Lasix and IV fluids Follow magnesium level this afternoon and again in the morning Avoid all magnesium supplements (4) Schizoaffective disorder, bipolar type: Plan: Consult psychiatry given that lithium is on hold and she has a long history of acute issues with psychosis Plan to continue holding lithium for now and check daily lithium levels, eventu al restarting of lithium Her lithium dose was increased to 300 mg daily at her last admission about 6 weeks ago (previously she was on it 3 times per week)-psychiatry feels the benefit outweighs the risk of being off of it Lowered the nighttime dose of olanzapine to 15 mg for renal dosing, continue 5 mg in the morning Continue Lamictal 150 Mg p.o. twice daily Continue 1 mg of lorazepam p.o. at bedtime and daily as needed Continue home cariprazine 3 mg p.o. twice daily Follow clinically Started lithium 150mg daily as per psych recommendations. (5) Sinus bradycardia: Plan: Heart rate has improved to the 60-70s on tele Avoid beta-blockers Continue tele monitoring (6) Hypertension: Plan: Con't home amlodipine 5 mg daily (7) Anemia: Plan: Hgb 9.6, borderline macrocytic. Fe levels here normal Probably anemia of chronic renal disease No bleeding Plan Diabetes [id number] with hemoglobin A1c of only 5.6% Hold Januvia Continue Accu-Cheks with NovoLog SSI DVT prophylaxis- heparin SQ 5000 units every 12 hours Disposition-ready to discharge back to assisted living once arrangements made Admission and Anticipated Discharge Date Admission Date: March 05, 2024 Subjective Pt is in very manic mood this morning, very talkative and appears with pleasant disposition. Review of Systems Review of Systems: CONST: Negative for fever, body aches and chills. HENT: Negative for neck pain/stiffness, headache, congestion, sore throat, swelling. EYES: Negative for discharge/pain or vision changes. RESP: Negative for cough/hemoptysis and shortness of breath. CV: Negative chest pain, difficulty breathing, palpitations. ABD: Negative pain, nausea, vomiting. : Negative increase frequency, dysuria, blood in urine or stool. MUSC: Negative for muscle aches, edema. SKIN: Negative rash, lesions/sores. NEURO: Negative headache, dizziness, weakness. Physical Exam Physical Exam: GENERAL APPEARANCE NAD, activity normal for age, well developed/ well nourished, no cyanosis, pallor, or diaphoresis. EYES lids/conjunctiva normal. EARS/NOSE/THROAT Mucous membranes moist, nares normal, lips/teeth normal uvula midline without oral pharyngeal erythema, exudate or swelling TMs normal bilaterally. No lymphangitis/lymphedema. HEAD/NECK normocephalic atraumatic, no facial trauma, neck is supple. RESPIRATORY respiratory effort normal, speaks in full sentences, no tripod position, no accessory muscle use. Lungs clear to auscultation without rhonchi, wheezes, rales CARDIAC Regular rate and rhythm, no edema. ABDOMINAL Soft, ND/NT. No evidence of fluid wave. No pulsatile masses on exam, rebound tenderness, [place] sign or pain over Mcburney's point. MUSCLES/EXTREMITIES No abnormal range of motion, no swelling. SKIN Warm, pink and dry. No rashes, dermatoses, petechiae or lesions. NEUROLOGICAL Speech is clear and appropriate. Normal level of consciousness. Gait and coordination are normal. 5/5 strength in all extremities. PSYCH confused, agitated. Results & Data Results & Data Vital Signs (Past 12 Hours) Vital Signs Temp Pulse Pulse Pulse Resp BP Pulse Ox 03/11/24 08:22 71 03/11/24 07:52 38.0 C H 83 20 153/72 H 94 03/11/24 04:45 36.5 C 80 18 134/75 97 03/11/24 00:14 37.0 C 84 18 114/71 97 O2 Del Method 03/11/24 08:22 03/11/24 07:52 Room Air 03/11/24 04:45 Room Air 03/11/24 00:14 Room Air PG Care Time/CCT Total # of Minutes Spent Total Time Spent with Patient: Total time spent is greater than 50% in coordination of care (as documented) at patient's floor/unit and/or counseling patient: Coding Level of Care Code 82003 SUB INP/OBS CARE 2/35MIN Diagnoses Acute kidney injury superimposed on chronic kidney disease N17.9; N18.9 Ileus K56.7 Hypermagnesemia E83.41 Schizoaffective disorder, bipolar type F25.0 Sinus bradycardia R00.1 Hypertension I10 Anemia D64.9 Anemia type: unspecified type (7) Anemia Anemia type: unspecified type Qualified Code(s): D64.9 - Anemia, unspecified
--- NOTE | 2024-03-11 12:02 | Psychiatric Progress Note ---
Date of Service March 11, 2024 Impression / Recommendations Impression 73-year-old woman with history of schizoaffective disorder, bipolar type, stage IV kidney disease presents from long-term ([facility]) after abnormal lab work for elevated Cr. Here for SYLVAIN. Pt has history of progressive renal dysfunction with long-term use of [place] due to effectiveness for stabilizing her mood condition. Psychiatry consulted for evaluation, medication recommendations. Strong psychiatric indication to continue lithium for mood stabilization versus other treatments due to treatment failures with other agents and concern for decompensation and significant dysfunction if lithium d/c long-term. 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 Consider hemodialysis moving forward. A: Ongoing disorganization and signs of hypomania with increased yelling, singing and struggling to follow communication board, however pleasant and overall has been cooperative with care. Cr continues to downtrend, [place] level subtherapeutic so recommend increasing dose if medically stable enough for this to occur. Overall, I spent a total of 45 minutes with this case including review of chart records, nursing report, review of lab work, direct evaluation of the patient at bedside, counseling the patient, discussion of the patient with the hospitalist provider, discussion with the psychiatric liaison during clinical rounds, and documentation in the electronic health record. (1) Schizoaffective disorder, bipolar type: (2) Acute kidney injury superimposed on chronic kidney disease: (3) Acute urinary retention: (4) [place] nephropathy: (5) Tardive dyskinesia: Plan -Increase [place] to 300mg daily -Recheck Li level on 03/12/2024 prior to AM dose and then again in 5-7 days. Interval History Identifying Information 73-year-old woman with history of schizoaffective disorder, bipolar type, stage IV kidney disease presents from long-term ([facility]) after abnormal lab work for elevated Cr. Here for SYLVAIN. Pt has history of progressive renal dysfunction with long-term use of [place] due to effectiveness for stabilizing her mood condition. Psychiatry consulted for evaluation, medication recommendations. Chief Complaint "Ah [place]". Subjective Subjective Patient was seen & assessed and interval progress reviewed. Overnight events: per RN she called out periodically throughout the night, singing loudly at times but was overall cooperative. Today she struggles to remain organized, attempted to use communication board and she started to read off every category. Easily confused but happy and smiling broadly. Talks about going to [employer] in the past but not graduating. Difficult to engage in any type of linear assessment. Physical Exam Mental Examination Appearance: Disheveled Eye Contact: Maintains Eye Contact Motor Behavior: Restless Speech: Slurred Mood: Euphoric Affect: Congruent Thought Process: Disorganized Hallucinations: None Insight: Poor Judgement: Poor Vital Signs (Past 24 Hours) Last Vital Signs Temp 38.0 C H 03/11/24 07:52 Pulse 71 03/11/24 08:22 Resp 20 03/11/24 07:52 BP 153/72 H 03/11/24 07:52 Pulse Ox 94 03/11/24 07:52 O2 Del Method Room Air 03/11/24 08:00 Results & Data ([facility]) Laboratory Results Laboratory Results - last 24 hr 03/10/24 03/10/24 03/11/24 16:19 21:03 06:20 Sodium 143 Potassium 4.5 Chloride 114 H Carbon Dioxide 21 Anion Gap 8 BUN 28 H Creatinine 2.77 H Est Cr Clr Drug Dosing 14.6 eGFR 17.74 BUN/Creatinine Ratio 10.1 Glucose 91 POC Glucose 126 H 101 H Calcium 8.6 Magnesium 2.9 H 03/11/24 03/11/24 07:22 11:25 Sodium Potassium Chloride Carbon Dioxide Anion Gap BUN Creatinine Est Cr Clr Drug Dosing eGFR BUN/Creatinine Ratio Glucose POC Glucose 100 H 107 H Calcium Magnesium Current Inpatient Medications Current Inpatient Medications: Current Inpatient Medications Acetaminophen (Acetaminophen 325 Mg Tab) 650 mg PO QID PRN PRN Reason: Fever Or Pain Stop: 04/05/24 08:11 Last Admin: 03/11/24 09:10 Dose: 650 mg Amlodipine Besylate (Amlodipine Besylate 5 Mg Tab) 10 mg PO QAM GEORGE Stop: 04/08/24 08:59 Last Admin: 03/11/24 08:53 Dose: 10 mg Atorvastatin Calcium (Atorvastatin 10 Mg Tab) 10 mg PO HS GEORGE Stop: 04/05/24 20:59 Last Admin: 03/10/24 21:17 Dose: 10 mg Cariprazine (Cariprazine Hcl 3 Mg Cap) 3 mg PO BIDM GEORGE Stop: 04/05/24 16:59 Last Admin: 03/11/24 08:53 Dose: 3 mg Dextrose (Dextrose 50% 50 Ml Syringe) 25 - 50 ml IV UD PRN; Protocol PRN Reason: Hypoglycemia Protocol Stop: 04/04/24 21:37 Glucagon (Glucagon For Inj 1 Mg Vial) 1 mg SQ UD PRN; Protocol PRN Reason: Hypoglycemia Protocol Stop: 04/04/24 21:37 Glucose (Glucose 40% Gel 15 Gm Tube) 15 - 30 gm PO UD PRN; Protocol PRN Reason: Hypoglycemia Protocol Stop: 04/04/24 21:37 Glucose (Glucose 10 Tab/Tube) 4 - 8 tab PO UD PRN; Protocol PRN Reason: Hypoglycemia Protocol Stop: 04/04/24 21:37 Heparin Sodium (Porcine) (Heparin Sod 5,000 Unit/0.5 Ml Vial) 5,000 units SQ Q12 GEORGE Stop: 04/05/24 20:59 Last Admin: 03/11/24 08:58 Dose: 5,000 units Insulin Aspart (Insulin Aspart Per Unit Charge) 0 units SC ACHS GEORGE Stop: 04/04/24 21:37 Last Admin: 03/11/24 08:56 Dose: Not Given Lamotrigine (Lamotrigine 100 Mg Tab) 150 mg PO BIDM GEORGE Stop: 04/05/24 16:59 Last Admin: 03/11/24 08:53 Dose: 150 mg [place] Carbonate ([place] Carbonate 300 Mg Tab) 150 mg PO DAILY GEORGE Stop: 04/09/24 08:59 Last Admin: 03/11/24 08:53 Dose: 150 mg Lorazepam (Lorazepam 1 Mg Tab) 1 mg PO DAILY PRN PRN Reason: Anxiety Stop: 04/05/24 08:11 Last Admin: 03/09/24 13:18 Dose: 1 mg Lorazepam (Lorazepam 1 Mg Tab) 1 mg PO HS GEORGE Stop: 04/05/24 20:59 Last Admin: 03/10/24 21:17 Dose: 1 mg Miscellaneous (Carbohydrates For Hypoglycemia ) 15 - 30 gm PO UD PRN PRN Reason: Hypoglycemia Protocol Stop: 04/04/24 21:37 Olanzapine (Olanzapine Zydis 5 Mg Orally Dis. Tab) 5 mg PO QAM GEORGE Stop: 04/05/24 08:59 Last Admin: 03/11/24 08:54 Dose: 5 mg Olanzapine (Olanzapine 5 Mg Tablet) 15 mg PO HS GEORGE Stop: 04/05/24 20:59 Last Admin: 03/10/24 21:17 Dose: 15 mg Ondansetron HCl (Ondansetron 4 Mg Od Tab) 4 mg PO Q6 PRN PRN Reason: Nausea And Vomiting Stop: 04/04/24 21:37 Pantoprazole Sodium (Pantoprazole 40 Mg Tab) [address] [facility] Stop: 04/05/24 08:59 Last Admin: 03/11/24 08:54 Dose: 40 mg
[2024-03-12 07:39] LABS: Hematocrit (blood only) 33.4 % (37.0-47.0); Hemoglobin 10.3 g/dl (12.0-16.0); Mean Corpuscular Hemoglobin 30.1 pg (25.0-34.0); Mean Corpuscular Hgb Conc 30.8 g/dL (32.0-36.0); Mean Corpuscular Volume 97.7 fL (80.0-100.0); Platelet Count 375 K/uL (130-400); RDW Coefficient of Variation 15.4 % (11.5-14.5); RDW Standard Deviation 55.1 fL (36.4-46.3); Red Blood Count 3.42 M/uL (4.20-5.40); White Blood Count 9.35 K/ul (4.8-10.8)
[2024-03-12 07:57] LABS: BUN Creatinine Ratio 9.3 (10-20); Calcium 8.9 mg/dl (8.6-10.3); Creatinine Clr Calc Pharmacy 13.5 ml/min; Magnesium 2.9 mg/dl (1.7-2.4); Potassium 4.8 mmol/L (3.5-5.1)
[2024-03-12] MEDS: LITHIUM CARBONATE 300 MG TAB PO SCH (09:08)
--- NOTE | 2024-03-12 11:26 | Hospitalist Progress Note ---
Date of Service March 12, 2024 Assessment & Plan (1) Acute kidney injury superimposed on chronic kidney disease: Plan: Acute kidney injury superimposed on CKD stage IV- On admission, creatinine 4.25, with baseline 2.14, continues to improve down to 3.01 after receiving IV fluids Also with hypernatremia which may be from diabetes insipidus associated with lithium use-now improved Appreciate nephrology consultation-received 1 dose IV lasix along with hypotonic IVFs on 03/06 for hypermagnesemia which is improving Na+145 today (2) Ileus: Plan: Apparently was being given a bowel regimen to include milk of magnesia prior to admission hence the hypermagnesemia CT abdomen/pelvis shows ileus and some stool, but no bowel obstruction Avoid magnesium containing laxatives moving forward Started on lactulose (3) Hypermagnesemia: Plan: Quite elevated at 6.3 on admission-now improving down to 2.9 with IV Lasix and IV fluids Follow magnesium level this afternoon and again in the morning Avoid all magnesium supplements (4) Schizoaffective disorder, bipolar type: Plan: Consult psychiatry given that lithium is on hold and she has a long history of acute issues with psychosis Plan to continue holding lithium for now and check daily lithium levels, eventu al restarting of lithium Her lithium dose was increased to 300 mg daily at her last admission about 6 weeks ago (previously she was on it 3 times per week)-psychiatry feels the benefit outweighs the risk of being off of it Lowered the nighttime dose of olanzapine to 15 mg for renal dosing, continue 5 mg in the morning Continue Lamictal 150 Mg p.o. twice daily Continue 1 mg of lorazepam p.o. at bedtime and daily as needed Continue home cariprazine 3 mg p.o. twice daily Follow clinically Started lithium 150mg daily as per psych recommendations increased to 300mg daily . (5) Sinus bradycardia: Plan: Heart rate has improved to the 60-70s on tele Avoid beta-blockers Continue tele monitoring (6) Hypertension: Plan: Con't home amlodipine 5 mg daily (7) Anemia: Plan: Hgb 9.6, borderline macrocytic. Fe levels here normal Probably anemia of chronic renal disease No bleeding Plan Diabetes [id number] with hemoglobin A1c of only 5.6% Hold Januvia Continue Accu-Cheks with NovoLog SSI DVT prophylaxis- heparin SQ 5000 units every 12 hours Disposition-ready to discharge back to assisted living once arrangements made Admission and Anticipated Discharge Date Admission Date: March 05, 2024 Subjective Pt is again in very manic mood this morning, very talkative and appears with pleasant disposition. Review of Systems Review of Systems: CONST: Negative for fever, body aches and chills. HENT: Negative for neck pain/stiffness, headache, congestion, sore throat, swelling. EYES: Negative for discharge/pain or vision changes. RESP: Negative for cough/hemoptysis and shortness of breath. CV: Negative chest pain, difficulty breathing, palpitations. ABD: Negative pain, nausea, vomiting. : Negative increase frequency, dysuria, blood in urine or stool. MUSC: Negative for muscle aches, edema. SKIN: Negative rash, lesions/sores. NEURO: Negative headache, dizziness, weakness. Physical Exam Physical Exam: GENERAL APPEARANCE NAD, activity normal for age, well developed/ well nourished, no cyanosis, pallor, or diaphoresis. EYES lids/conjunctiva normal. EARS/NOSE/THROAT Mucous membranes moist, nares normal, lips/teeth normal uvula midline without oral pharyngeal erythema, exudate or swelling TMs normal bilaterally. No lymphangitis/lymphedema. HEAD/NECK normocephalic atraumatic, no facial trauma, neck is supple. RESPIRATORY respiratory effort normal, speaks in full sentences, no tripod position, no accessory muscle use. Lungs clear to auscultation without rhonchi, wheezes, rales CARDIAC Regular rate and rhythm, no edema. ABDOMINAL Soft, ND/NT. No evidence of fluid wave. No pulsatile masses on exam, rebound tenderness, [place] sign or pain over Mcburney's point. MUSCLES/EXTREMITIES No abnormal range of motion, no swelling. SKIN Warm, pink and dry. No rashes, dermatoses, petechiae or lesions. NEUROLOGICAL Speech is clear and appropriate. Normal level of consciousness. Gait and coordination are normal. 5/5 strength in all extremities. PSYCH confused, agitated. Results & Data Results & Data Vital Signs (Past 12 Hours) Vital Signs Temp Pulse Pulse Resp BP BP Pulse Ox 03/12/24 10:14 03/12/24 08:20 37.2 C 77 16 150/71 H 95 03/12/24 07:24 78 03/12/24 03:56 37.6 C H 80 16 142/70 H 95 03/11/24 23:25 37.3 C 80 16 139/76 95 O2 Del Method 03/12/24 10:14 Room Air 03/12/24 08:20 Room Air 03/12/24 07:24 03/12/24 03:56 Room Air 03/11/24 23:25 Room Air PG Care Time/CCT Total # of Minutes Spent Total Time Spent with Patient: Total time spent is greater than 50% in coordination of care (as documented) at patient's floor/unit and/or counseling patient: Coding Level of Care Code 51921 SUB INP/OBS CARE 2/35MIN Diagnoses Acute kidney injury superimposed on chronic kidney disease N17.9; N18.9 Ileus K56.7 Hypermagnesemia E83.41 Schizoaffective disorder, bipolar type F25.0 Sinus bradycardia R00.1 Hypertension I10 Anemia D64.9 Anemia type: unspecified type (7) Anemia Anemia type: unspecified type Qualified Code(s): D64.9 - Anemia, unspecified
[2024-03-13 07:52] VITALS: TEMP 99.3
[2024-03-13 08:23] LABS: Calcium 9.2 mg/dl (8.6-10.3); Potassium 4.6 mmol/L (3.5-5.1)
--- NOTE | 2024-03-13 10:51 | Psychiatric Progress Note ---
Date of Service March 13, 2024 Impression / Recommendations Impression 73-year-old woman with history of schizoaffective disorder, bipolar type, stage IV kidney disease presents from shelter ([facility]) after abnormal lab work for elevated Cr. Here for SYLVAIN. Pt has history of progressive renal dysfunction with long-term use of [place] due to effectiveness for stabilizing her mood condition. Psychiatry consulted for evaluation, medication recommendations. Strong psychiatric indication to continue lithium for mood stabilization versus other treatments due to treatment failures with other agents and concern for decompensation and significant dysfunction if lithium d/c long-term. 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 Consider hemodialysis moving forward. A: Ongoing stefan with poor sleep. [place] increased to prior to admission dose. Cr slightly higher today. Recommend repeat [place] level tomorrow AM prior to morning [place] dose. Overall, I spent a total of 25 minutes with this case including review of chart records, nursing report, review of lab work, direct evaluation of the patient at bedside, discussion of the patient with the hospitalist provider, discussion with the psychiatric liaison during clinical rounds, and documentation in the electronic health record. (1) Schizoaffective disorder, bipolar type: (2) Acute kidney injury superimposed on chronic kidney disease: (3) Acute urinary retention: (4) [place] nephropathy: (5) Tardive dyskinesia: Plan -continue with [place] to 300mg daily -Recheck Li level on 03/13/2024 prior to AM dose Interval History Identifying Information 73-year-old woman with history of schizoaffective disorder, bipolar type, stage IV kidney disease presents from shelter ([facility]) after abnormal lab work for elevated Cr. Here for SYLVAIN. Pt has history of progressive renal dysfunction with long-term use of [place] due to effectiveness for stabilizing her mood condition. Psychiatry consulted for evaluation, medication recommendations. Chief Complaint sleeping Subjective Subjective Patient was seen & assessed and interval progress reviewed. Up almost all night yelling. Sleeping this morning and not felt therapeutic to wake her. Physical Exam Vital Signs (Past 24 Hours) Last Vital Signs Temp 37.4 C 03/13/24 07:51 Pulse 78 03/13/24 07:51 Resp 20 03/13/24 07:51 BP 134/73 03/13/24 10:00 Pulse Ox 99 03/13/24 07:51 O2 Del Method Room Air 03/13/24 07:51 Results & Data ([facility]) Laboratory Results Laboratory Results - last 24 hr 03/12/24 03/12/24 03/12/24 12:12 17:04 20:36 Sodium Potassium Chloride Carbon Dioxide Anion Gap BUN Creatinine Est Cr Clr Drug Dosing eGFR BUN/Creatinine Ratio Glucose POC Glucose 117 H 117 H 132 H Calcium 03/13/24 03/13/24 07:07 08:12 Sodium 142 Potassium 4.6 Chloride 111 H Carbon Dioxide 23 Anion Gap 8 BUN 28 H Creatinine 3.10 H Est Cr Clr Drug Dosing 13.0 eGFR 15.49 BUN/Creatinine Ratio 9.0 L Glucose 100 H POC Glucose 113 H Calcium 9.2 Current Inpatient Medications Current Inpatient Medications: Current Inpatient Medications Acetaminophen (Acetaminophen 325 Mg Tab) 650 mg PO QID PRN PRN Reason: Fever Or Pain Stop: 04/05/24 08:11 Last Admin: 03/13/24 07:15 Dose: 650 mg Amlodipine Besylate (Amlodipine Besylate 5 Mg Tab) 10 mg PO QAM GEORGE Stop: 04/08/24 08:59 Last Admin: 03/13/24 07:11 Dose: 10 mg Atorvastatin Calcium (Atorvastatin 10 Mg Tab) 10 mg PO HS [facility] Stop: 04/05/24 20:59 Last Admin: 03/12/24 21:59 Dose: 10 mg Cariprazine (Cariprazine Hcl 3 Mg Cap) 3 mg PO BIDM GEORGE Stop: 04/05/24 16:59 Last Admin: 03/13/24 07:11 Dose: 3 mg Dextrose (Dextrose 50% 50 Ml Syringe) 25 - 50 ml IV UD PRN; Protocol PRN Reason: Hypoglycemia Protocol Stop: 04/04/24 21:37 Glucagon (Glucagon For Inj 1 Mg Vial) 1 mg SQ UD PRN; Protocol PRN Reason: Hypoglycemia Protocol Stop: 04/04/24 21:37 Glucose (Glucose 40% Gel 15 Gm Tube) 15 - 30 gm PO UD PRN; Protocol PRN Reason: Hypoglycemia Protocol Stop: 04/04/24 21:37 Glucose (Glucose 10 Tab/Tube) 4 - 8 tab PO UD PRN; Protocol PRN Reason: Hypoglycemia Protocol Stop: 04/04/24 21:37 Heparin Sodium (Porcine) (Heparin Sod 5,000 Unit/0.5 Ml Vial) 5,000 units SQ Q12 GEORGE Stop: 04/05/24 20:59 Last Admin: 11/12/24 07:15 Dose: 5,000 units Insulin Aspart (Insulin Aspart Per Unit Charge) 0 units SC ACHS [facility] Stop: 04/04/24 21:37 Last Admin: 03/13/24 08:58 Dose: Not Given Lamotrigine (Lamotrigine 100 Mg Tab) 150 mg PO BIDM [facility] Stop: 04/05/24 16:59 Last Admin: 03/13/24 07:13 Dose: 150 mg [place] Carbonate ([place] Carbonate 300 Mg Tab) 300 mg PO DAILY [facility] Stop: 04/11/24 08:59 Last Admin: 03/13/24 07:12 Dose: 300 mg Lorazepam (Lorazepam 1 Mg Tab) 1 mg PO DAILY PRN PRN Reason: Anxiety Stop: 04/05/24 08:11 Last Admin: 03/09/24 13:18 Dose: 1 mg Lorazepam (Lorazepam 1 Mg Tab) 1 mg PO HS [facility] Stop: 04/05/24 20:59 Last Admin: 03/12/24 21:58 Dose: 1 mg Miscellaneous (Carbohydrates For Hypoglycemia ) 15 - 30 gm PO UD PRN PRN Reason: Hypoglycemia Protocol Stop: 04/04/24 21:37 Olanzapine (Olanzapine Zydis 5 Mg Orally Dis. Tab) 5 mg PO QAM [facility] Stop: 04/05/24 08:59 Last Admin: 03/13/24 07:12 Dose: 5 mg Olanzapine (Olanzapine 5 Mg Tablet) 15 mg PO HS [facility] Stop: 04/05/24 20:59 Last Admin: 03/12/24 21:58 Dose: 15 mg Ondansetron HCl (Ondansetron 4 Mg Od Tab) 4 mg PO Q6 PRN PRN Reason: Nausea And Vomiting Stop: 04/04/24 21:37 Pantoprazole Sodium (Pantoprazole 40 Mg Tab) 40 mg PO QAM [facility] Stop: 04/05/24 08:59 Last Admin: 03/13/24 07:11 Dose: 40 mg
[2024-03-13 12:06] VITALS: PULSE 80; RESP 18; O2SAT 97
--- NOTE | 2024-03-13 13:01 | Discharge Summary ---
Discharge Summary Date of Service March 13, 2024 Principal Dx & Hospital Course #1 = Principal Diagnosis (1) Acute kidney injury superimposed on chronic kidney disease: Acute kidney injury superimposed on CKD stage IV- On admission, creatinine 4.25, with baseline 2.14, continues to improve down to 3.01 after receiving IV fluids Also with hypernatremia which may be from diabetes insipidus associated with lithium use-now improved Appreciate nephrology consultation-received 1 dose IV lasix along with hypotonic IVFs on 03/06 for hypermagnesemia which is improving Na+145 today (2) Ileus: Apparently was being given a bowel regimen to include milk of magnesia prior to admission hence the hypermagnesemia CT abdomen/pelvis shows ileus and some stool, but no bowel obstruction Avoid magnesium containing laxatives moving forward Started on lactulose (3) Hypermagnesemia: Quite elevated at 6.3 on admission-now improving down to 2.9 with IV Lasix and IV fluids Follow magnesium level this afternoon and again in the morning Avoid all magnesium supplements (4) Schizoaffective disorder, bipolar type: Consult psychiatry given that lithium is on hold and she has a long history of acute issues with psychosis Plan to continue holding lithium for now and check daily lithium levels, eventual restarting of lithium Her lithium dose was increased to 300 mg daily at her last admission about 6 weeks ago (previously she was on it 3 times per week)-psychiatry feels the benefit outweighs the risk of being off of it Lowered the nighttime dose of olanzapine to 15 mg for renal dosing, continue 5 mg in the morning Continue Lamictal 150 Mg p.o. twice daily Continue 1 mg of lorazepam p.o. at bedtime and daily as needed Continue home cariprazine 3 mg p.o. twice daily Follow clinically Started lithium 150mg daily as per psych recommendations increased to 300mg daily . (5) Sinus bradycardia: Heart rate has improved to the 60-70s on tele Avoid beta-blockers Continue tele monitoring (6) Hypertension: Con't home amlodipine 5 mg daily (7) Anemia: Hgb 9.6, borderline macrocytic. Fe levels here normal Probably anemia of chronic renal disease No bleeding Plan Diabetes [id number] with hemoglobin A1c of only 5.6% Hold Januvia Continue Accu-Cheks with NovoLog SSI DVT prophylaxis- heparin SQ 5000 units every 12 hours Disposition-ready to discharge back to assisted living once arrangements made Admission HPI Per Admitting Provider The patient is a 73-year-old female with a past medical history including hypercholesterolemia, schizoaffective disorder bipolar type, CKD stage IV, hypertension, multiple falls, generalized weakness, diabetes mellitus type 2, vitamin D deficiency, hyperparathyroidism, hypercholesterolemia, COPD, and chronic diastolic heart failure. The patient underwent routine laboratories at [facility] earlier today, and due to abnormal creatinine and magnesium, she was referred to the ED for further assessment and treatment. The patient is not able to contribute significantly to HPI or review of systems due to psychiatric diagnoses Discharge Exam GENERAL APPEARANCE NAD, activity normal for age, well developed/ well nourished, no cyanosis, pallor, or diaphoresis. EYES lids/conjunctiva normal. EARS/NOSE/THROAT Mucous membranes moist, nares normal, lips/teeth normal uvula midline without oral pharyngeal erythema, exudate or swelling TMs normal bilaterally. No lymphangitis/lymphedema. HEAD/NECK normocephalic atraumatic, no facial trauma, neck is supple. RESPIRATORY respiratory effort normal, speaks in full sentences, no tripod position, no accessory muscle use. Lungs clear to auscultation without rhonchi, wheezes, rales CARDIAC Regular rate and rhythm, no edema. ABDOMINAL Soft, ND/NT. No evidence of fluid wave. No pulsatile masses on exam, rebound tenderness, [place] sign or pain over Mcburney's point. MUSCLES/EXTREMITIES No abnormal range of motion, no swelling. SKIN Warm, pink and dry. No rashes, dermatoses, petechiae or lesions. NEUROLOGICAL Speech is clear and appropriate. Normal level of consciousness. Gait and coordination are normal. 5/5 strength in all extremities. PSYCH confused, agitated. Discharge Plan Discharge Items Patient Disposition: Transfer Half-Way Fac Reason For Visit: SYLVAIN, HYPERMAGNESEMIA, SINUS BRADYCARDIA Discharge Diagnosis: SYLVAIN, hypermagnesemia Activity: Resume your previous activity Non-emergency contact: Primary Care Provider Call non-emergency contact if: you have any medication questions and your symptoms worsen Follow-up/Referrals: [facility] [Primary Care Provider] - Diet: Regular Addtl Attending Provider Instructions: Follow up lithium levels in 1 week with psych Pending Studies at Discharge: No Stand-Alone Forms: [place], Smoking Cessation Skilled Items Patient informed of condition?: Yes DNR: Yes Discharge Level of Care: Skilled Communicable Disease: No Discharge Prognosis: Stable Lines: None Urinary Catheter: Yes Medications and DC Order Prescriptions: New olanzapine 5 mg Tablet 15 mg PO HS Qty: 30 0RF Continued multivitamin [Multiple Vitamins] Tablet 1 tab PO QAM Qty: 0 (DME) blood-glucose meter [OneTouch Ultra2 Meter] Misc See Rx Instructions .MEDSUPPLY Qty: 1 0RF Rx Instructions: Use to test blood glucose once daily; DX CODE- E11.9 (DME) OneTouch Ultra Blue Test Strip Strip See Rx Instructions .MEDSUPPLY Qty: 100 1RF Rx Instructions: Test blood glucose once daily; DX CODE- E11.9 (DME) lancets [OneTouch Delica Plus Lancet] 30 gauge misc See Rx Instructions .MEDSUPPLY Qty: 100 5RF Rx Instructions: Test blood glucose once daily; DX CODE- E11.9 (DME) Select Briefs Misc See Rx Instructions .Route Qty: 120 5RF Rx Instructions: As directed-patient needs Size Small atorvastatin 10 mg tablet 10 mg PO HS Qty: 90 1RF omeprazole 20 mg capsule,delayed release(DR/EC) 20 mg PO QAM Qty: 90 1RF (DME) blood sugar diagnostic Strip See Rx Instructions .ROUTE .MEDSUPPLY Qty: 400 1RF Rx Instructions: Test 2 times per day; Dx code- E11.9 (DME) blood-glucose meter [OneTouch Ultra2 Meter] Misc See Rx Instructions .ROUTE .MEDSUPPLY Qty: 1 0RF Rx Instructions: TEST TWICE DAILY, DX CODE-E11.9 tramadol 50 mg tablet 100 mg PO TIDM cholecalciferol (vitamin D3) [Vitamin D3] 25 mcg (1,000 unit) Tablet 25 mcg PO QAM Januvia 25 mg tablet 25 mg PO QAM diclofenac sodium [Voltaren Arthritis Pain] 1 % Gel 4 g EXT QID Qty: 100 0RF Rx Instructions: APPLY 4GRAMS TO RIGHT HIP bisacodyl [Dulcolax (bisacodyl)] 10 mg Suppository 10 mg SD DAILY PRN (Reason: Constipation) Fleet Enema 19-7 gram/118 mL Enema 118 ml SD DAILY PRN (Reason: Constipation) lorazepam 1 mg Tablet 1 mg PO HS Qty: 0 0RF amlodipine 5 mg Tablet 5 mg PO QAM lithium carbonate 300 mg Capsule 300 mg PO QAM Eucerin Lotion 1 applic TOPICAL BID lorazepam 1 mg tablet 1 mg PO DAILY PRN (Reason: Anxiety) cyanocobalamin (vitamin B-12) 1,000 mcg tablet 1,000 mcg PO QAM diclofenac sodium 1 % gel 1 ea TOPICAL QID Rx Instructions: APPLY 2GRAMS TO RIGHT SHOULDER FOUR TIMES DAILY. lamotrigine 150 mg tablet 150 mg PO BIDM montelukast 10 mg tablet 10 mg PO HS olanzapine 20 mg tablet 20 mg PO DAILY acetaminophen [Tylenol] 325 mg Tablet 650 mg PO QID MDD 3G PRN (Reason: Fever Or Pain) Rx Instructions: GIVE FOR TEMP >100, AND FOR PAIN # 1=10 Vraylar 3 mg Capsule 3 mg PO BIDM Anbesol (benzocaine) Max Str 20 % Gel 1 applic MUCOUS MEMBRANE Q6H PRN (Reason: Mouth Pain) Rx Instructions: APPLY TO GUMS Discontinued magnesium hydroxide [Milk of Magnesia] 400 mg/5 mL Suspension 30 ml PO DAILY Rx Instructions: HOLD FOR DIARRHEA olanzapine [Zyprexa] 5 mg Tablet 5 mg PO QAM Discharge Orders: Discharge Order (Routine); Ordered 03/13/24 Ordered By: David Vázquez Admission Data Admit Date/Time: 03/05/24 20:19 Attending Provider: David Vázquez Admit Provider: Hossein Gaxiola Primary Care Provider: Husam Ayala [facility]: [facility] [place]; Hossein Gaxiola; Viry Hays; Salome Mccullough; Mikal Zapata; Antonina Redding; Gloria Perez; Reinaldo Cruz; Iman Parks Hospital Stay Data Consultations 03/05/24 19:11 ED Decision to Admit Stat 03/05/24 21:38 Consult Nephrology Routine 03/06/24 07:55 Consult Psychiatry Routine Diagnostic Imagining Performed 03/05/24 17:03 CT head/brain wo con Stat 03/05/24 17:37 CT Abd and Pelvis [CT abd pelvis wo con] Stat Pending Results Patient Have Any Pending Studies at Discharge: No Discharge Instructions Given to Patient (Per Discharging Provider) Follow up lithium levels in 1 week with psych Total Time Total Time Spent Total Time Spent (In Minutes): 50 Coding Level of Care Code 99202 INP/OBS DISCH >30 MIN Diagnoses Acute kidney injury superimposed on chronic kidney disease N17.9; N18.9 Ileus K56.7 Hypermagnesemia E83.41 Schizoaffective disorder, bipolar type F25.0 Sinus bradycardia R00.1 Hypertension I10 Anemia D64.9 Anemia type: unspecified type
[2024-03-13 14:31] VITALS: BP 134/73
== END 2024-03-13 16:42 | DRG 683 ==
LOC: ED 15:55 → 2E 20:19 → SUATTDRO 20:19 → 2E 21:21 → 2W 03-11 14:03